=== PATIENT | female | born 1940 | race Caucasian/White ===

== ENCOUNTER 2016-10-07 13:08 | Emergency (ER) | payer MEDICARE, OTHER ==
[~2016-10-07] VITALS: Ht 162.6 cm; Wt 116.2 kg
[~2016-10-07 13:08] MED LIST: CYCL-97 PO; DIOVAN HCT; FISH1CAP15 PO; FRS325T; FRS325T PO; HYDR1TAB75 PO; MEDR2.5T6; MELO-198 PO; MTF500T; MTF500T PO; NF-ESOM40C PO; NFAMINITAB PO; OMEG1CAP51; OMEP40CA36 PO; OMG1KC PO; SMV10T; SMV20T PO; TELM1TAB3 PO; TELM40T; TRAM50TA2 PO; ULTRACET; [UNRECOGNIZED DRUG - MIXTURE]; [UNRECOGNIZED DRUG - OTHER]
--- OUTSIDE RECORDS SUMMARY | 2016-10-07 13:16 | XMS REPORT | Continuity of Care Document ---
Author Author [facility] Organization [facility] Address Unknown Phone Unavailable Allergies Active Description Code Type Severity Reaction Onset Reported/Identified Relationship to Patient Clinical Status Yes codeine [id number] Drug Allergy Unknown N/A 12/21/2006 Yes Penicillins [id number] Drug Allergy Unknown N/A 12/21/2006 Medications Problems Date Dx Coded Attending Type Code Diagnosis Diagnosed By 04/01/2010 Ot 287.5 04/01/2010 Ot 577.2 04/01/2010 Ot 789.09 04/17/2010 Ot 530.81 04/17/2010 Ot 535.40 04/17/2010 Ot V12.72 04/17/2010 Ot V67.09 03/19/2011 Ot 883.0 OPEN WOUND OF FINGER 03/19/2011 Ot E000.8 OTHER EXTERNAL CAUSE STATUS 03/19/2011 Ot E849.0 ACCIDENT IN HOME 03/19/2011 Ot E920.8 ACC-CUTTING INSTRUM NEC 01/06/2012 Ot 250.00 DIAB BHAVIK WO COMPL, TYPE II OR UNSPEC TY 01/06/2012 Ot 272.4 HYPERLIPIDEMIA NEC/NOS 01/06/2012 Ot 285.9 ANEMIA NOS 01/06/2012 Ot 287.5 THROMBOCYTOPENIA NOS 01/06/2012 Ot 716.90 ARTHROPATHY NOS-UNSPEC 01/06/2012 Ot 724.5 BACKACHE NOS 01/06/2012 Ot 729.81 SWELLING OF LIMB 01/06/2012 Ot 785.2 CARDIAC MURMURS NEC 01/06/2012 Ot 786.09 RESPIRATORY ABNORM NEC 01/06/2012 Ot V58.69 OTH MED,LT,CURRENT USE 01/09/2012 Ot 729.81 SWELLING OF LIMB 01/09/2012 Ot 782.3 EDEMA 05/06/2013 IOANA TARIQ DO Ot 721.0 CERVICAL SPONDYLOSIS 05/06/2013 IOANA TARIQ DO Ot V57.1 PHYSICAL THERAPY NEC 06/22/2013 IOANA TARIQ DO Ot 715.91 OSTEOARTHROS NOS-SHLDER 06/22/2013 IOANA TARIQ DO Ot 721.0 CERVICAL SPONDYLOSIS 06/22/2013 IOANA TARIQ DO Ot V57.1 PHYSICAL THERAPY NEC 08/13/2013 PROSPER FOWLER, AMADOR Rosario Ot 786.59 CHEST PAIN NEC 08/18/2013 IOANA TARIQ DO Ot 721.0 CERVICAL SPONDYLOSIS 08/18/2013 IOANA TARIQ DO Ot V57.1 PHYSICAL THERAPY NEC 07/26/2014 NINIJORGE L KATE ADEN Fani Ot V76.12 09/19/2014 BAIHOSEA, REBEL L DURAL MECHANIC Ot 250.00 09/19/2014 BAIMA, REBEL L DURAL MECHANIC Ot 272.4 09/19/2014 BAIMA, REBEL L DURAL MECHANIC Ot 401.9 02/27/2015 BAIMA, REBEL L DURAL MECHANIC Ot 250.00 02/27/2015 BAIMA, REBEL L DURAL MECHANIC Ot 272.4 02/27/2015 BAIMA, REBEL L DURAL MECHANIC Ot 401.9 02/27/2015 Ot 250.00 02/27/2015 BAIHOSEA, REBEL L DURAL MECHANIC Ot 272.4 02/27/2015 ADEN LEE DO Ot 250.00 02/27/2015 ADEN LEE DO Ot 401.9 02/27/2015 ADEN LEE DO Ot 782.3 02/27/2015 BRUCE FORTE MD Ot 873.0 OPEN WOUND OF SCALP 02/27/2015 BRUCE FORTE MD Ot 924.11 CONTUSION OF KNEE 02/27/2015 BRUCE FORTE MD Ot 959.01 HEAD INJURY, NOS 02/27/2015 BRUCE FORTE MD Ot E000.8 OTHER EXTERNAL CAUSE STATUS 02/27/2015 BRUCE FORTE MD Ot E849.6 ACCIDENT IN PUBLIC BLDG 02/27/2015 BRUCE FORTE MD Ot E888.1 FALL STRIKING OBJECT NEC 02/27/2015 BRUCE FORTE MD Ot V06.1 [id number], COMBINED [ 03/06/2015 AJITH FOWLER, LATASHA Hummel Ot V58.32 ENCOUNTER FOR REMOVAL OF SUTURES 03/15/2015 ADEN LEE DO Ot 250.00 03/15/2015 ADEN LEE DO A Ot 401.9 03/15/2015 NINIJORGE L ADEN KATE Ot 782.3 07/02/2015 NINIJORGE L ADEN Mohr Ot Z12.31 07/04/2015 Ot 789.01 07/04/2015 Ot 789.01 07/04/2015 Ot 041.86 07/04/2015 Ot 789.00 07/04/2015 Ot V76.12 07/04/2015 Ot 577.2 07/04/2015 Ot 250.00 07/04/2015 Ot 285.9 07/04/2015 Ot V76.12 07/04/2015 Ot 511.9 07/04/2015 Ot 807.01 07/04/2015 Ot E000.8 07/04/2015 Ot E849.0 07/04/2015 Ot E888.9 07/04/2015 Ot 287.5 07/04/2015 Ot 272.4 07/04/2015 Ot 401.9 07/04/2015 Ot V72.63 07/04/2015 Ot V72.81 07/04/2015 Ot V72.83 07/04/2015 Ot V74.8 07/04/2015 Ot 250.00 07/04/2015 Ot 272.4 07/04/2015 Ot 401.9 07/04/2015 Ot 786.09 07/04/2015 Ot 250.00 07/04/2015 Ot 272.4 07/04/2015 Ot 401.9 07/04/2015 Ot 786.09 07/04/2015 Ot V76.12 07/04/2015 Ot 272.4 07/04/2015 Ot V58.69 07/04/2015 Ot 789.01 07/04/2015 Ot 575.8 07/04/2015 Ot 789.01 07/04/2015 REBEL IVY DURAL MECHANIC Ot 272.4 07/04/2015 RBEEL IVY DURAL MECHANIC Ot 401.9 07/04/2015 REBEL IVY DURAL MECHANIC Ot V58.69 07/04/2015 JESUS ADEN Ot 786.50 07/04/2015 ADEN LEE DO Ot V76.12 07/04/2015 ADEN LEE DO Ot 250.00 07/04/2015 ADEN LEE DO Ot 272.4 07/04/2015 IOANA TARIQ DO F Ot 721.0 07/04/2015 BAIMA, REBEL L DURAL MECHANIC Ot 397.0 07/04/2015 BAIMA, REBEL L DURAL MECHANIC Ot 416.8 07/04/2015 BAIMA, REBEL L DURAL MECHANIC Ot 424.0 07/04/2015 BAIMA, REBEL L DURAL MECHANIC Ot 272.4 07/04/2015 BAIMA, REBEL L DURAL MECHANIC Ot V58.69 07/04/2015 GELLENDER DO, ADEN Mohr Ot 786.50 07/04/2015 GELLENDER DO, ADEN Mohr Ot V15.88 07/04/2015 BAIMA, REBEL L DURAL MECHANIC Ot 272.4 07/04/2015 GELLENDER DO, ADEN Mohr Ot 250.00 07/04/2015 GELLENDER DO, ADEN Mohr Ot 401.9 07/04/2015 GELLENDER DO, ADEN Mohr Ot V76.12 07/04/2015 BAIMA, REBEL L DURAL MECHANIC Ot 250.00 07/04/2015 BAIMA, REBEL L DURAL MECHANIC Ot 272.4 07/04/2015 BAIMA, REBEL L DURAL MECHANIC Ot 401.9 07/04/2015 Ot 250.00 07/04/2015 BAIMA, REBEL L DURAL MECHANIC Ot 272.4 07/04/2015 GELLENDER DO, ADEN Mohr Ot 250.00 07/04/2015 GELLENDER DO, ADEN Mohr Ot 401.9 07/04/2015 GELLENDER DO, ADEN Mohr Ot 782.3 07/04/2015 GELLENDER DO, ADEN Mohr Ot Z12.31 07/18/2015 GELLENDER DO, ADEN Mohr Ot Z12.31 08/01/2015 GELLENDER DO, ADEN Mohr Ot E11.9 08/01/2015 GELLENDER DO, ADEN Mohr Ot I10 12/04/2015 Ot E11.9 12/04/2015 Ot E78.5 12/25/2015 Ot E11.9 TYPE 2 DIABETES MELLITUS WITHOUT COMPLIC 12/25/2015 Ot E78.5 HYPERLIPIDEMIA, UNSPECIFIED 04/25/2016 CHANDNI DO, IOANA Mai Ot M25.512 PAIN IN LEFT SHOULDER 05/07/2016 GELLENDER DO, ADEN Mohr Ot E11.9 TYPE 2 DIABETES MELLITUS WITHOUT COMPLIC 05/07/2016 GELLENDER DO, ADEN Mohr Ot E78.5 HYPERLIPIDEMIA, UNSPECIFIED 05/19/2016 CHANDNI , IOANA Mai Ot M25.512 PAIN IN LEFT SHOULDER 05/22/2016 JESUS KATE, ADEN Mohr Ot D69.6 THROMBOCYTOPENIA, UNSPECIFIED 05/22/2016 JESUS KATE, ADEN Mohr Ot D72.819 DECREASED WHITE BLOOD CELL COUNT, UNSPEC 05/29/2016 ADEN LEE DO Ot E11.9 TYPE 2 DIABETES MELLITUS WITHOUT COMPLIC 05/29/2016 JESUS KATE, ADEN Mohr Ot E78.5 HYPERLIPIDEMIA, UNSPECIFIED 05/30/2016 CHANDNI , IOANA Mai Ot M25.512 PAIN IN LEFT SHOULDER 06/11/2016 JESUS KATE, ADEN Mohr Ot D69.6 THROMBOCYTOPENIA, UNSPECIFIED 06/11/2016 JESUS KATE, ADEN Mohr Ot D72.819 DECREASED WHITE BLOOD CELL COUNT, UNSPEC 06/12/2016 CHANDNI KATE, IOANA Mai Ot M25.512 PAIN IN LEFT SHOULDER 06/12/2016 CHANDNI KATE, IOANA Mai Ot Z98.890 OTHER SPECIFIED POSTPROCEDURAL STATES 06/30/2016 ADEN LEE DO Ot Z12.31 ENCNTR SCREEN MAMMOGRAM FOR MALIGNANT NE 07/04/2016 Ot V76.12 OTH SCREEN MAMMO-MALIGN NEOPLASM OF VAN 07/04/2016 Ot 511.9 PLEURAL EFFUSION NOS 07/04/2016 Ot 807.01 FRACTURE ONE RIB-CLOSED 07/04/2016 Ot E000.8 OTHER EXTERNAL CAUSE STATUS 07/04/2016 Ot E849.0 ACCIDENT IN HOME 07/04/2016 Ot E888.9 FALL NOS 07/04/2016 Ot 287.5 THROMBOCYTOPENIA NOS 07/04/2016 Ot 272.4 HYPERLIPIDEMIA NEC/NOS 07/04/2016 Ot 401.9 HYPERTENSION NOS 07/04/2016 Ot V72.63 PRE-PROCEDURAL LABORATORY EXAMINATION 07/04/2016 Ot V72.81 [id number] CARDIOVASCULAR 07/04/2016 Ot V72.83 EXAM PRE-OPERATIVE NEC 07/04/2016 Ot V74.8 SCREEN-BACTERIAL DIS NEC 07/04/2016 Ot 250.00 DIAB BHAVIK WO COMPL, TYPE II OR UNSPEC TY 07/04/2016 Ot 272.4 HYPERLIPIDEMIA NEC/NOS 07/04/2016 Ot 401.9 HYPERTENSION NOS 07/04/2016 Ot 786.09 RESPIRATORY ABNORM NEC 07/04/2016 Ot 250.00 DIAB BHAVIK WO COMPL, TYPE II OR UNSPEC TY 07/04/2016 Ot 272.4 HYPERLIPIDEMIA NEC/NOS 07/04/2016 Ot 401.9 HYPERTENSION NOS 07/04/2016 Ot 786.09 RESPIRATORY ABNORM NEC 07/04/2016 Ot V76.12 OTH SCREEN MAMMO-MALIGN NEOPLASM OF VAN 07/04/2016 Ot 272.4 HYPERLIPIDEMIA NEC/NOS 07/04/2016 Ot V58.69 OTH MED,LT,CURRENT USE 07/04/2016 Ot 789.01 ABDOMINAL PAIN, RIGHT UPPER QUADRANT 07/04/2016 Ot 575.8 DIS OF GALLBLADDER NEC 07/04/2016 Ot 789.01 ABDOMINAL PAIN, RIGHT UPPER QUADRANT 07/04/2016 BAIMA REBEL L DURAL MECHANIC Ot 272.4 HYPERLIPIDEMIA NEC/NOS 07/04/2016 BAIMA, REBEL L DURAL MECHANIC Ot 401.9 HYPERTENSION NOS 07/04/2016 BAIHOSEA REBEL L DURAL MECHANIC Ot V58.69 OTH MED,LT,CURRENT USE 07/04/2016 ADEN LEE DO Ot 786.50 CHEST PAIN NOS 07/04/2016 ADEN LEE DO Ot V76.12 OTH SCREEN MAMMO-MALIGN NEOPLASM OF VAN 07/04/2016 JESUS KATEADEN Ot 250.00 DIAB BHAVIK WO COMPL, TYPE II OR UNSPEC TY 07/04/2016 NINIADEN COATS DO Ot 272.4 HYPERLIPIDEMIA NEC/NOS 07/04/2016 IOANA TARIQ DO Ot 721.0 CERVICAL SPONDYLOSIS 07/04/2016 BAIHOSEA REBEL L DURAL MECHANIC Ot 397.0 TRICUSPID VALVE DISEASE 07/04/2016 BIJU REBEL L DURAL MECHANIC Ot 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 NEC 07/04/2016 BIJU REBEL L DURAL MECHANIC Ot 424.0 MITRAL VALVE DISORDER 07/04/2016 BAIMA REBEL L DURAL MECHANIC Ot 272.4 HYPERLIPIDEMIA NEC/NOS 07/04/2016 BIJU REBEL L DURAL MECHANIC Ot V58.69 OTH MED,LT,CURRENT USE 07/04/2016 JESUS KATEADEN Ot 786.50 CHEST PAIN NOS 07/04/2016 NINIADEN COATS DO Ot V15.88 HISTORY OF FALL 07/04/2016 BIJU REBEL L DURAL MECHANIC Ot 272.4 HYPERLIPIDEMIA NEC/NOS 07/04/2016 NINIADEN COATS DO Ot 250.00 DIAB BHAVIK WO COMPL, TYPE II OR UNSPEC TY 07/04/2016 GELLENDER DO, ADEN Mohr Ot 401.9 HYPERTENSION NOS 07/04/2016 GELLENDER DO, ADEN Mohr Ot V76.12 OTH SCREEN MAMMO-MALIGN NEOPLASM OF VAN 07/04/2016 BAIMA REBEL L DURAL MECHANIC Ot 250.00 DIAB BHAVIK WO COMPL, TYPE II OR UNSPEC TY 07/04/2016 BAIMA, REBEL L DURAL MECHANIC Ot 272.4 HYPERLIPIDEMIA NEC/NOS 07/04/2016 BAIMA, REBEL L DURAL MECHANIC Ot 401.9 HYPERTENSION NOS 07/04/2016 Ot 250.00 DIAB BHAVIK WO COMPL, TYPE II OR UNSPEC TY 07/04/2016 BAIHOSEA, REBEL L DURAL MECHANIC Ot 272.4 HYPERLIPIDEMIA NEC/NOS 07/04/2016 GELLENDER DO, ADEN Mohr Ot 250.00 DIAB BHAVIK WO COMPL, TYPE II OR UNSPEC TY 07/04/2016 GELLENDER DO, ADEN Mohr Ot 401.9 HYPERTENSION NOS 07/04/2016 GELLENDER DO, ADEN Mohr Ot 782.3 EDEMA 07/04/2016 GELLENDER DOADEN Ot Z12.31 ENCNTR SCREEN MAMMOGRAM FOR MALIGNANT NE 07/04/2016 CHANDNI KATE, IOANA Mai Ot M16.12 UNILATERAL PRIMARY OSTEOARTHRITIS, LEFT 07/04/2016 CHANDNI DO, IOANA Mai Ot M47.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, LUMBAR REGION 07/04/2016 GELLENDER DO, ADEN Mohr Ot E11.9 TYPE 2 DIABETES MELLITUS WITHOUT COMPLIC 07/04/2016 GELLENDER DOADEN Ot I10 ESSENTIAL (PRIMARY) HYPERTENSION 07/04/2016 Ot E11.9 TYPE 2 DIABETES MELLITUS WITHOUT COMPLIC 07/04/2016 Ot E78.5 HYPERLIPIDEMIA, UNSPECIFIED 07/04/2016 GELLENDER DOADEN Ot E11.9 TYPE 2 DIABETES MELLITUS WITHOUT COMPLIC 07/04/2016 GELLENDER DO, ADEN Mohr Ot E78.5 HYPERLIPIDEMIA, UNSPECIFIED 07/04/2016 GELLENDER DOADEN Ot D69.6 THROMBOCYTOPENIA, UNSPECIFIED 07/04/2016 GELLENDER DOADEN Ot D72.819 DECREASED WHITE BLOOD CELL COUNT, UNSPEC 07/04/2016 GELLENDER DOADEN Ot Z12.31 ENCNTR SCREEN MAMMOGRAM FOR MALIGNANT NE 07/10/2016 GELLENDER ADEN KATE Ot Z12.31 ENCNTR SCREEN MAMMOGRAM FOR MALIGNANT NE 08/29/2016 JESUS KATE, ADEN Mohr Ot E11.9 TYPE 2 DIABETES MELLITUS WITHOUT COMPLIC 08/29/2016 JESUS KATE, ADEN Mohr Ot E78.5 HYPERLIPIDEMIA, UNSPECIFIED 08/29/2016 JESUS KATE, ADEN Mohr Ot I10 ESSENTIAL (PRIMARY) HYPERTENSION 09/18/2016 JESUS KATE, ADEN Mohr Ot E11.9 TYPE 2 DIABETES MELLITUS WITHOUT COMPLIC 09/18/2016 JESUS KATE, ADEN Mohr Ot E78.5 HYPERLIPIDEMIA, UNSPECIFIED 09/18/2016 JESUS KATE, ADEN Mohr Ot I10 ESSENTIAL (PRIMARY) HYPERTENSION Procedures Results Test Result Range Automated blood complete blood count (hemogram) panel - 05/06/16 08:36 Blood leukocytes automated count (number/volume) 3.7 10*3/ uL 4.3-11.0 Blood erythrocytes automated count (number/volume) 4.30 10*6 /uL 4.35-5.85 Venous blood hemoglobin measurement (mass/volume) 12.2 g/dL 11.5-16.0 Blood hematocrit (volume fraction) 37 % 35-52 Automated erythrocyte mean corpuscular volume 86 [foz_us] 80-99 Automated erythrocyte mean corpuscular hemoglobin (mass per erythrocyte) 28 pg 25-34 Automated erythrocyte mean corpuscular hemoglobin concentration measurement ( mass/volume) 33 g/dL 32-36 Automated erythrocyte distribution width ratio 15.0 % 10.0-14.5 Automated blood platelet count (count/volume) 114 10*3/uL 130-400 Automated blood platelet mean volume measurement 10.8 [foz_ us] 7.4-10.4 Comprehensive metabolic panel - 05/06/16 08:36 Serum or plasma sodium measurement (moles/volume) 142 mmol/ L 135-145 Serum or plasma potassium measurement (moles/volume) 3.9 mmol/L 3.6-5.0 Serum or plasma chloride measurement (moles/volume) 111 mmol /L 98-107 Carbon dioxide 19 mmol/L 21-32 Serum or plasma anion gap determination (moles/volume) 12 mmol/L 5-14 Serum or plasma urea nitrogen measurement (mass/volume) 12 mg/dL 7-18 Serum or plasma creatinine measurement (mass/volume) 0.63 mg /dL 0.60-1.30 Serum or plasma urea nitrogen/creatinine mass ratio 19 NRG Serum or plasma creatinine measurement with calculation of estimated glomerular filtration rate > NRG Serum or plasma glucose measurement (mass/volume) 125 mg/dL 70-105 Serum or plasma calcium measurement (mass/volume) 9.1 mg/dL 8.5-10.1 Serum or plasma total bilirubin measurement (mass/volume) 1.0 mg/dL 0.1-1.0 Serum or plasma alkaline phosphatase measurement (enzymatic activity/volume) 72 U/L 40-136 Serum or plasma aspartate aminotransferase measurement (enzymatic activity/ volume) 20 U/L 5-34 Serum or plasma alanine aminotransferase measurement (enzymatic activity/volume ) 14 U/L 0-55 Serum or plasma protein measurement (mass/volume) 6.4 g/dL 6.4-8.2 Serum or plasma albumin measurement (mass/volume) 3.3 g/dL 3.2-4.5 Lipid 1996 panel - 05/06/16 08:36 Serum or plasma triglyceride measurement (mass/volume) 91 mg /dL <150 Serum or plasma cholesterol measurement (mass/volume) 150 mg /dL < 200 Serum or plasma cholesterol in HDL measurement (mass/volume) 44 mg/dL 40-60 Cholesterol in LDL [mass/volume] in serum or plasma by direct assay 92 mg/dL 1-129 Serum or plasma cholesterol in VLDL measurement (mass/volume) 18 mg/dL 5-40 Hemoglobin A1c - 05/06/16 08:36 Hemoglobin A1c 5.6 % 4.5-6.2 Automated blood complete blood count (hemogram) panel - 05/21/16 08:14 Blood leukocytes automated count (number/volume) 4.1 10*3/ uL 4.3-11.0 Blood erythrocytes automated count (number/volume) 4.24 10*6 /uL 4.35-5.85 Venous blood hemoglobin measurement (mass/volume) 11.9 g/dL 11.5-16.0 Blood hematocrit (volume fraction) 37 % 35-52 Automated erythrocyte mean corpuscular volume 87 [foz_us] 80-99 Automated erythrocyte mean corpuscular hemoglobin (mass per erythrocyte) 28 pg 25-34 Automated erythrocyte mean corpuscular hemoglobin concentration measurement ( mass/volume) 32 g/dL 32-36 Automated erythrocyte distribution width ratio 15.1 % 10.0-14.5 Automated blood platelet count (count/volume) 125 10*3/uL 130-400 Automated blood platelet mean volume measurement 11.0 [foz_ us] 7.4-10.4 Automated blood complete blood count (hemogram) panel - 08/28/16 08:40 Blood leukocytes automated count (number/volume) 4.6 10*3/ uL 4.3-11.0 Blood erythrocytes automated count (number/volume) 4.17 10*6 /uL 4.35-5.85 Venous blood hemoglobin measurement (mass/volume) 12.6 g/dL 11.5-16.0 Blood hematocrit (volume fraction) 38 % 35-52 Automated erythrocyte mean corpuscular volume 91 [foz_us] 80-99 Automated erythrocyte mean corpuscular hemoglobin (mass per erythrocyte) 30 pg 25-34 Automated erythrocyte mean corpuscular hemoglobin concentration measurement ( mass/volume) 33 g/dL 32-36 Automated erythrocyte distribution width ratio 14.5 % 10.0-14.5 Automated blood platelet count (count/volume) 136 10*3/uL 130-400 Automated blood platelet mean volume measurement 10.6 [foz_ us] 7.4-10.4 Comprehensive metabolic panel - 08/28/16 08:40 Serum or plasma sodium measurement (moles/volume) 142 mmol/ L 135-145 Serum or plasma potassium measurement (moles/volume) 3.6 mmol/L 3.6-5.0 Serum or plasma chloride measurement (moles/volume) 109 mmol /L 98-107 Carbon dioxide 23 mmol/L 21-32 Serum or plasma anion gap determination (moles/volume) 10 mmol/L 5-14 Serum or plasma urea nitrogen measurement (mass/volume) 18 mg/dL 7-18 Serum or plasma creatinine measurement (mass/volume) 0.68 mg /dL 0.60-1.30 Serum or plasma urea nitrogen/creatinine mass ratio 26 NRG Serum or plasma creatinine measurement with calculation of estimated glomerular filtration rate > NRG Serum or plasma glucose measurement (mass/volume) 127 mg/dL 70-105 Serum or plasma calcium measurement (mass/volume) 9.0 mg/dL 8.5-10.1 Serum or plasma total bilirubin measurement (mass/volume) 0.8 mg/dL 0.1-1.0 Serum or plasma alkaline phosphatase measurement (enzymatic activity/volume) 77 U/L 40-136 Serum or plasma aspartate aminotransferase measurement (enzymatic activity/ volume) 22 U/L 5-34 Serum or plasma alanine aminotransferase measurement (enzymatic activity/volume ) 17 U/L 0-55 Serum or plasma protein measurement (mass/volume) 6.6 g/dL 6.4-8.2 Serum or plasma albumin measurement (mass/volume) 3.4 g/dL 3.2-4.5 Lipid 1996 panel - 08/28/16 08:40 Serum or plasma triglyceride measurement (mass/volume) 93 mg /dL <150 Serum or plasma cholesterol measurement (mass/volume) 175 mg /dL < 200 Serum or plasma cholesterol in HDL measurement (mass/volume) 50 mg/dL 40-60 Cholesterol in LDL [mass/volume] in serum or plasma by direct assay 108 mg/dL 1-129 Serum or plasma cholesterol in VLDL measurement (mass/volume) 19 mg/dL 5-40 Hemoglobin A1c - 08/28/16 08:40 Hemoglobin A1c 6.3 % 4.5-6.2 Encounters ACCT No. Visit Date/Time Discharge Status Pt. Type Provider Facility Loc./Unit Complaint [id number] 06/12/2016 08:15:00 2015 11:53:00 DIS Outpatient IOANA TARIQ DO [facility] REHAB S/P REVERSE LEFT TSA [id number] 05/29/2016 10:20:00 2015 17:00:00 DIS Outpatient IOANA TARIQ DO [facility] REHAB S/P REVERSE LEFT TSA [id number] 07/09/2015 08:33:00 2014 23:59:59 CLS Outpatient ADEN LEE DO [facility] LAB DIABTS, [id number] 07/04/2015 09:09:00 2014 23:59:59 CLS Outpatient IOANA TARIQ DO [facility] RAD LUMBAR SPONDYLOSIS,DJD LEFT HIP [id number] 06/27/2015 08:43:00 2014 23:59:59 CLS Outpatient ADEN LEE DO [facility] RAD SCREENING [id number] 03/06/2015 07:08:00 2014 07:20:00 DIS Emergency AJITH FOWLER, LATASHA Hummel [facility] ER STAPLE REMOVAL [id number] 02/27/2015 10:38:00 2014 12:13:00 DIS Emergency REANNA FOWLER, BRUCE Rao [facility] ER FALL;L LEG PAIN [id number] 02/19/2015 08:28:00 2014 23:59:59 CLS Outpatient ADEN LEE DO [facility] LAB DIABETES,PERIPHERAL ADEMIA [id number] 02/19/2015 08:20:00 2014 23:59:59 CLS Outpatient BAIMA REBEL L DURAL MECHANIC [facility] LAB HYPERLIPIDEMIA [id number] 08/22/2014 10:30:00 2013 23:59:59 CLS Outpatient BAIMA REBEL L DURAL MECHANIC [facility] LAB HLP,DM,HTN [id number] 06/26/2014 10:05:00 2013 23:59:59 CLS Outpatient ADEN LEE DO [facility] RAD SCREENING [id number] 04/05/2014 09:08:00 2013 23:59:59 CLS Outpatient ADEN LEE DO [facility] LAB DIABETES [id number] 02/21/2014 08:25:00 2013 23:59:59 CLS Outpatient REBEL IVY L DURAL MECHANIC [facility] LAB OTHER UNSPECIFIED HYPERLIPIDEMIA [id number] 01/27/2014 10:30:00 2013 23:59:59 CLS Outpatient JESUS KATE ADEN Fani [facility] RAD FELL LAST THURSDAY,PAIN IN R RIBS [id number] 08/18/2013 11:05:00 2012 23:59:59 CLS Outpatient BAIHOSEA REBEL L DURAL MECHANIC [facility] LAB HLP [id number] 08/12/2013 12:58:00 2012 14:04:00 DIS Outpatient IOANA TARIQ DO [facility] REHAB CERVICAL SPONDYLOSIS [id number] 08/16/2013 12:34:00 2012 23:59:59 CLS Outpatient REBEL IVY [facility] CARD HTN [id number] 08/13/2013 18:38:00 2012 23:46:00 DIS Emergency PROSPER FOWLER, AMADOR Rosario [facility] ER CP [id number] 07/25/2013 09:12:00 2012 23:59:59 CLS Outpatient CHANDNI KATE IOANA Sergei [facility] RAD CERVICAL SPONDYLOSIS [id number] 06/29/2013 07:43:00 2012 23:59:59 CLS Outpatient ADEN LEE DO [facility] LAB DM,HLP [id number] 06/24/2013 08:48:00 2012 23:59:59 CLS Outpatient ADEN LEE DO [facility] RAD SCREENING [id number] 05/31/2013 08:35:00 2012 14:00:00 DIS Outpatient CHANDNI KATE IOANA Sergei [facility] REHAB DJD R SHOULDER CERVICAL SPONDYLOSIS [id number] 04/27/2013 10:00:00 2012 10:28:00 DIS Outpatient CHANDNI KATE IOANA Sergei [facility] REHAB CERVICAL SPONDYLOSIS, RT SIDED RADICULOPATHY [id number] 02/28/2013 11:21:00 2012 23:59:59 CLS Outpatient ADEN LEE DO [facility] RAD RIGHT RIB PAIN [id number] 02/01/2013 07:52:00 2012 23:59:59 CLS Outpatient REBEL IVY [facility] LAB HTN,HLP,STATIN [place] [id number] 08/28/2016 08:29:00 ACT Outpatient ADEN LEE DO [facility] LAB DIABETIS,HYPERTENSION [id number] 06/30/2016 09:17:00 ACT Outpatient ADEN LEE DO [facility] RAD SCREENING [id number] 05/21/2016 08:02:00 ACT Outpatient ADEN LEE DO [facility] LAB LEUKOPENIA,THROMBOCYTOPENIA [id number] 05/06/2016 08:17:00 ACT Outpatient ADEN LEE DO [facility] LAB DIABETES, HYPERLIPIDEMIA [id number] 12/03/2015 08:11:00 Document Registration [id number] 07/04/2015 09:08:00 Document Registration [id number] 10/25/2014 08:56:00 Document Registration [id number] 10/06/2012 09:30:00 Document Registration [id number] 09/30/2012 08:04:00 Document Registration [id number] 08/12/2012 08:40:00 Document Registration [id number] 06/21/2012 10:00:00 Document Registration [id number] 01/09/2012 14:12:00 Document Registration [id number] 01/06/2012 11:23:00 Document Registration [id number] 12/25/2011 11:32:00 Document Registration [id number] 12/04/2011 08:05:00 Document Registration [id number] 11/26/2011 07:55:00 Document Registration [id number] 06/19/2011 07:48:00 Document Registration [id number] 06/05/2011 10:04:00 Document Registration [id number] 05/06/2011 07:00:00 Document Registration [id number] 03/19/2011 16:56:00 Document Registration [id number] 09/04/2010 07:56:00 Document Registration [id number] 04/22/2010 08:15:00 Document Registration [id number] 04/17/2010 08:06:00 Document Registration [id number] 04/02/2010 12:05:00 Document Registration [id number] 04/01/2010 13:49:00 Document Registration [id number] 03/27/2010 09:38:00 Document Registration [id number] 03/08/2010 11:02:00 Document Registration [id number] 02/28/2010 07:44:00 Document Registration
[2016-10-07] MEDS ORDERED: NAPR220C11 PO (13:18)
--- NOTE | 2016-10-07 13:50 | Diagnostic Imaging Report ---
EXAMINATION: Three views of the left knee. INDICATION: Fall. COMPARISON: 02/27/2015. 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 The hardware is in good position without displacement or evidence of loosening. No fracture is identified. Again seen is deformity in the patella and heterotopic ossification superior to the patella. This could be related to an old fracture or sequela of other injury. There is increased suprapatellar density, probably related to a small effusion. IMPRESSION: Total left knee replacement. Deformity about the patella and ossification superior to it are probably sequela of old injury. Dictated by: Dictated on workstation # [id number]
--- NOTE | 2016-10-07 14:04 | ED Fall/Injury ---
General Chief Complaint: Trauma-Non Activation Stated Complaint: KNEE PAIN Nursing Triage Note: PT REPORTS SHE FEL EARLIER TODAY WHIE AT HOME. PT BELIEVES SHE CAUGHT HER CANE ON A SIDE TABLE WHILE WALKING. PT REPORTS LANDING ON HER L SIDE. PT REPROTS "LIGHTLY" HITTING L SIDE OF HEAD BUT [place] OR LOC. PT REPORTS L KNEE PAIN THAT IS CHRONIC BUT WORSE AFTER FALL. PT DENIES ANY OTHER INJURY. Source: patient Exam Limitations: no limitations History of Present Illness Time seen by provider: 13:10 Initial Comments This 76-year-old woman presents to the emergency room via EMS after having a fall in her home. She believes her cane got "hung up" causing the fall. She denies any prodrome. She fell onto her left side injuring her left the. She lightly struck her head on the floor but denies any significant injury. There was no loss of consciousness. She denies any aspirin or blood medications. Her only complaint at this time is knee pain. She has had a prosthetic knee replacement previously. Location Injury Occurred: HOME RESIDENCE Allergies and Home Medications Allergies Coded Allergies: Penicillins (Unverified Allergy, Unknown, 12/21/06) codeine (Unverified Allergy, Unknown, 12/21/06) aspirin (Verified Adverse Reaction, Unknown, NAUSEA, 10/07/16) Home Medications (Reported) Fish Oil/Dha/Epa 1 Each Capsule 1,200 EACH PO BID (Reported) Hctz/Telmisartan 1 Each Tablet 80 MG PO DAILY (Reported) Metformin Hcl 500 Mg Tablet 500 MG PO BID (Reported) Naproxen Sodium 220 Mg Capsule 220 MG PO DAILY (Reported) Omeprazole 40 Mg Capsule. #30 40 MG PO DAILY Prescribed by: AMADOR ALVA on 08/13/13 2343 Simvastatin 20 Mg Tab 20 MG PO HS (Reported) Vitamin C/Vitamin E 1 Tab Tab 1 TAB PO DAILY (Reported) Constitutional: no symptoms reported Eyes: No Symptoms Reported Ears, Nose, Mouth, Throat: no symptoms reported Respiratory: no symptoms reported Cardiovascular: no symptoms reported Gastrointestinal: no symptoms reported Genitourinary: no symptoms reported Musculoskeletal: see HPI Skin: no symptoms reported Psychiatric/Neurological: No Symptoms Reported Past Acddvff-Ldgczl-Jngmvu Hx Patient Social History Alcohol Use: Denies Use Recreational Drug Use: No Smoking Status: Never a Smoker Recent Foreign Travel: No Contact w/Someone Who Travel: No Recent Infectious Disease Expo: No Recent Hopitalizations: Yes Immunizations Up To Date Tetanus Booster (TDap): More than 5yrs Date of Pneumonia Vaccine: Aug 07, 2016 Date of Influenza Vaccine: Jun 09, 2016 Seasonal Allergies Seasonal Allergies: No Surgeries HX Surgeries: Yes (BILAT TKR, TIEN FILTER, LEFT SHOULDER SURGERY, BONE SPUR LEFT HEEL) Surgeries: Joint Replacement, Orthopedic Respiratory Hx Respiratory Disorders: No Cardiovascular Hx Cardiac Disorders: Yes Cardiac Disorders: Deep Vein Thrombosis, High Cholesterol, Hypertension Neurological Hx Neurological Disorders: No Reproductive System Hx Reproductive Disorders: No Genitourinary Hx Genitourinary Disorders: No Gastrointestinal Hx Gastrointestinal Disorders: Yes Gastrointestinal Disorders: Gastroesophageal Reflux Musculoskeletal Hx Musculoskeletal Disorders: Yes (BONE SPUR REMOVAL LEFT FOOT) Musculoskeletal Disorders: Arthritis Endocrine Hx Endocrine Disorders: Yes (DM TYPE II) Endocrine Disorders: Diabetes, Non-Insulin dep HEENT HX ENT Disorders: No Cancer Hx Cancer: No Psychosocial Hx Psychiatric Problems: No Integumentary HX Skin/Integumentary Disorder: No Blood Transfusions Hx Blood Disorders: Yes (BLOOD CLOT LEG TO LUNG 2000) Family Medical History Significant Family History: No Pertinent Family Hx Physical Exam Vital Signs Vital Sign - Last 12Hours 10/07/16 13:18 Temp 98.0 Pulse 80 Resp 16 B/P 203/107 Pulse Ox 98 Capillary Refill : Less Than 3 Seconds General Appearance: WD/WN no apparent distress HEENT: normal ENT inspection Neck: normal inspection Cardiovascular: regular rate, rhythm no edema no murmur Respiratory: lungs clear normal breath sounds no respiratory distress no accessory muscle use Gastrointestinal: normal bowel sounds non tender soft Back: normal inspection Extremities: swelling other (left knee generally tender to palpation, lateral knee worse.) Neurologic/Psychiatric: lpc II-XII nml as tested no motor/sensory deficits alert normal mood/affect oriented x 3 Skin: normal color warm/dry Rashad Coma Score Best Eye Response: (4) Open Spontaneously Best Verbal Response: (5) Oriented Best Motor Response: (6) Obeys Commands Stevenson Total: 15 Progress/Results/Core Measures Results/Orders Lab Results Laboratory Tests Test 10/07/16 13:53 Range/Units Urine Bacteria NEGATIVE /HPF Urine Bilirubin NEGATIVE NEGATIVE Urine Casts NONE /LPF Urine Clarity CLEAR Urine Color YELLOW Urine Crystals NONE /LPF Urine Culture Indicated NO Urine Glucose (UA) NEGATIVE NEGATIVE Urine Ketones NEGATIVE NEGATIVE Urine Leukocyte Esterase NEGATIVE NEGATIVE Urine Mucus NEGATIVE /LPF Urine Nitrite NEGATIVE NEGATIVE Urine Protein NEGATIVE NEGATIVE Urine RBC NONE /HPF Urine RBC (Auto) NEGATIVE NEGATIVE Urine Specific [place] 1.015 L 1.016-1.022 Urine Squamous Epithelial Cells 2-5 /HPF Urine Urobilinogen 4 H NORMAL MG/DL Urine WBC NONE /HPF Urine pH 6 5-9 My Orders Orders-AMADOR CHENG MD Ua Culture If Indicated (10/07/16 13:16) Knee, Left, 3 Views (10/07/16 13:16) Vital Signs/I&O Vital Sign - Last 12Hours 10/07/16 10/07/16 13:18 14:45 Temp 98.0 98.0 Pulse 80 85 Resp 16 16 B/P 203/107 Pulse Ox 98 99 Blood Pressure Mean: 139 Progress Note : Progress Note Patient was offered pain medication but declined. X-ray showed no evidence of acute injury. She was notably hypertensive when she arrived. No treatment was provided the blood pressure was trending down upon departure. She was encouraged to follow up with her primary care provider for a blood pressure recheck. Diagnostic Imaging Diagonstic Imaging: Xray Plain Films/CT/US/NM/MRI: knee Comments X-ray of the left knee viewed by me and report reviewed. Discussed with the radiologist. See report below: NAME: KATHARINE PEREZ [facility] REC#: [id number] PT STATUS: REG ER : 1940 PHYSICIAN: AMADOR CHENG MD ADMIT DATE: 10/07/16/ER Signed Date of Exam:10/07/16 KNEE, LEFT, 3 VIEWS EXAMINATION: Three views of the left knee. INDICATION: Fall. COMPARISON: 02/27/2015. 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 The hardware is in good position without displacement or evidence of loosening. No fracture is identified. Again seen is deformity in the patella and heterotopic ossification superior to the patella. This could be related to an old fracture or sequela of other injury. There is increased suprapatellar density, probably related to a small effusion. IMPRESSION: Total left knee replacement. Deformity about the patella and ossification superior to it are probably sequela of old injury. Dictated by: Dictated on workstation # [id number] Dict: 10/07/16 1343 Trans: 10/07/16 1355 [id number] Interpreted by: DIVINE RAMIREZ MD Electronically signed by: DIVINE RAMIREZ MD 10/07/16 1357 Departure Impression Impression: Primary Impression: Contusion of left knee Qualified Code: S80.02XA - Contusion of left knee, initial encounter Additional Impression: Fall on same level from stumbling Qualified Code: W01.0XXA - Fall on same level from slipping, tripping and stumbling without subsequent striking against object, initial encounter Disposition: HOME, SELF-CARE Condition: Improved Departure-Patient Inst. Decision time for Depature: 14:17 Referrals: ADEN LEE DO (PCP/Family) Primary Care Physician Patient Instructions: Contusion (DC) Add. Discharge Instructions: You may take [id number] pain medications including Tylenol for treatment of your knee pain. You may also ice in 20 minute intervals. Ambulate carefully with a cane or walker. Return to care if symptoms worsen or are not improving. All discharge instructions reviewed with patient and/or family. Voiced understanding. AMADOR CHENG MD Oct 07, 2016 14:04
[2016-10-07 14:07] LABS: BILIRUBIN,URINE NEGATIVE (NEGATIVE); KETONES,URINE NEGATIVE (NEGATIVE); LEUKOCYTE ESTERASE ,URINE NEGATIVE (NEGATIVE); NITRITE,URINE NEGATIVE (NEGATIVE); PH,URINE 6 (5-9); PROTEIN,URINE NEGATIVE (NEGATIVE); UROBILINOGEN,URINE 4 MG/DL (NORMAL)
[2016-10-07 14:45] VITALS: BP 192/74
== END 2016-10-07 14:45 | disposition home or self-care (01) ==
LOC: EDUNIT# 13:08 → ER 13:11
DX: S80.02XA Contusion of left knee, initial encounter (principal); I10 Essential (primary) hypertension; E11.9 Type 2 diabetes mellitus without complications; Z79.84 Long term (current) use of oral hypoglycemic drugs; Z79.899 Other long term (current) drug therapy; Z96.653 Presence of artificial knee joint, bilateral; W01.0XXA Fall on same level from slipping, tripping and stumbling without subsequent striking against object, initial encounter; Y92.009 Unspecified place in unspecified non-institutional (private) residence as the place of occurrence of the external cause; Y99.8 Other external cause status
CPT/HCPCS: 73562; 81000; 99283

== ENCOUNTER → 2016-12-23 | Outpatient (CLI) | payer MEDICARE, OTHER ==
[~2016-12-23] MED LIST changes: +NAPR220C11 PO
[2016-12-23 09:19] LABS: BASOPHILS % (AUTO) 1 % (0-10); EOSINOPHILS # (AUTO) 0.2 10^3/uL (0.0-0.3); EOSINOPHILS % (AUTO) 5 % (0-10); LYMPHOCYTES # (AUTO) 0.9 X 10^3 (1.0-4.0); LYMPHOCYTES % (AUTO) 26 % (12-44); MEAN CORPUSCULAR HEMOGLOBIN 29 PG (25-34); MEAN CORPUSCULAR HGB CONC 33 G/DL (32-36); MEAN CORPUSCULAR VOLUME 89 FL (80-99); MEAN PLATELET VOLUME 10.4 FL (7.4-10.4); MONOCYTES # (AUTO) 0.2 X 10^3 (0.0-1.0); MONOCYTES % (AUTO) 6 % (0-12); NEUTROPHILS # (AUTO) 2.1 X 10^3 (1.8-7.8); NEUTROPHILS % (AUTO) 62 % (42-75); PLATELET COUNT 112 10^3/uL (130-400); RED BLOOD COUNT 4.02 10^6/uL (4.35-5.85); RED CELL DISTRIBUTION WIDTH 14.1 % (10.0-14.5); WHITE BLOOD COUNT 3.4 10^3/uL (4.3-11.0)
[2016-12-23 09:42] LABS: ALANINE AMINOTRANSFERASE 12 U/L (0-55); ALBUMIN 3.3 G/DL (3.2-4.5); ANION GAP 9 MMOL/L (5-14); ASPARTATE AMINO TRANSFERASE 18 U/L (5-34); BILIRUBIN,TOTAL 0.9 MG/DL (0.1-1.0); BLOOD UREA NITROGEN 20 MG/DL (7-18); BUN/CREATININE RATIO 29; CARBON DIOXIDE 26 MMOL/L (21-32); CHLORIDE 109 MMOL/L (98-107); CHOLESTEROL 144 MG/DL (< 200); DIRECT LDL 83 MG/DL (1-129); GFR ESTIMATED > 60; GLUCOSE 127 MG/DL (70-105); POTASSIUM 3.7 MMOL/L (3.6-5.0); SODIUM 144 MMOL/L (135-145); TOTAL PROTEIN 6.2 G/DL (6.4-8.2); TRIGLYCERIDES 99 MG/DL (<150); VLDL CHOLESTEROL 20 MG/DL (5-40)
== END ==
LOC: LAB 08:44
PROVIDERS: ATTEND Family Medicine
DX: I10 Essential (primary) hypertension (principal); E11.9 Type 2 diabetes mellitus without complications; E05.90 Thyrotoxicosis, unspecified without thyrotoxic crisis or storm
CPT/HCPCS: 36415; 80053; 80061; 83036; 85025

== ENCOUNTER → 2017-01-19 | Outpatient (CLI) | payer MEDICARE, OTHER ==
[2017-01-19 08:36] LABS: MEAN PLATELET VOLUME 10.6 FL (7.4-10.4); RED BLOOD COUNT 4.08 10^6/uL (4.35-5.85); RED CELL DISTRIBUTION WIDTH 14.6 % (10.0-14.5); WHITE BLOOD COUNT 3.8 10^3/uL (4.3-11.0)
== END ==
LOC: LAB 08:14
PROVIDERS: ATTEND Family Medicine
DX: D69.6 Thrombocytopenia, unspecified (principal)
CPT/HCPCS: 36415; 85027

== ENCOUNTER 2017-01-22 10:30 | Outpatient (RCR) | payer MEDICARE, OTHER | END 2017-01-22 12:00 | disposition home or self-care (01) | PROVIDERS: ATTEND Orthopaedic Surgery | DX: M47.816 Spondylosis without myelopathy or radiculopathy, lumbar region (principal) ==

== ENCOUNTER 2017-07-26 09:52 | Emergency (ER) | payer MEDICARE, OTHER ==
[~2017-07-26] VITALS: Ht 177.8 cm; Wt 136.1 kg
--- NOTE | 2017-07-26 10:50 | ED Fall/Injury ---
General Chief Complaint: Trauma-Non Activation Stated Complaint: FALL Source: patient Exam Limitations: no limitations History of Present Illness Time seen by provider: 10:49 Initial Comments To ER with a fall out of her wheelchair at the group home. Initially complained of right shoulder and right knee pain but now complains of no pain. She is demented. Occurred: just prior to arrival Severity: mild Injuries/Pain Location: upper extremity, lower extremity Context: other (slipped out of her wheelchair) Loss of Consciousness: no loss of consciousness Allergies and Home Medications Allergies Coded Allergies: Penicillins (Unverified Allergy, Unknown, 12/21/06) codeine (Unverified Allergy, Unknown, 12/21/06) aspirin (Verified Adverse Reaction, Unknown, NAUSEA, 10/07/16) Home Medications Fish Oil/Dha/Epa 1 Each Capsule, 1,200 EACH PO BID, (Reported) Hctz/Telmisartan 1 Each Tablet, 80 MG PO DAILY, (Reported) Metformin Hcl 500 Mg Tablet, 500 MG PO BID, (Reported) Naproxen Sodium 220 Mg Capsule, 220 MG PO DAILY, (Reported) Omeprazole 40 Mg Capsule.dr, 40 MG PO DAILY, #30 Prescribed by: AMADOR ALVA on 08/13/13 2343 Simvastatin 20 Mg Tab, 20 MG PO HS, (Reported) Vitamin C/Vitamin E 1 Tab Tab, 1 TAB PO DAILY, (Reported) [Chydro/Apap] , (Reported) Constitutional: see HPI Eyes: No Symptoms Reported Ears, Nose, Mouth, Throat: no symptoms reported Respiratory: no symptoms reported Cardiovascular: no symptoms reported Genitourinary: no symptoms reported Musculoskeletal: see HPI Skin: no symptoms reported Psychiatric/Neurological: No Symptoms Reported Past Dvlnial-Ziefhn-Qzitkt Hx Patient Social History Recent Hopitalizations: Yes Immunizations Up To Date Tetanus Booster (TDap): More than 5yrs Date of Pneumonia Vaccine: Aug 07, 2016 Date of Influenza Vaccine: Jun 09, 2016 Seasonal Allergies Seasonal Allergies: No Surgeries Surgeries: Joint Replacement, Orthopedic Cardiovascular Cardiac Disorders: Deep Vein Thrombosis, High Cholesterol, Hypertension Reproductive System Hx Reproductive Disorders: No Gastrointestinal Gastrointestinal Disorders: Gastroesophageal Reflux Musculoskeletal Musculoskeletal Disorders: Arthritis Endocrine Endocrine Disorders: Diabetes, Non-Insulin dep Family Medical History Significant Family History: No Pertinent Family Hx Physical Exam Vital Signs Vital Sign - Last 12Hours 07/26/17 11:35 Temp 97.9 Pulse 91 Resp 20 B/P (MAP) 196/99 Pulse Ox 99 Capillary Refill : General Appearance: WD/WN, no apparent distress HEENT: PERRL/EOMI, normal ENT inspection Neck: non-tender, full range of motion Cardiovascular: regular rate, rhythm, no murmur Respiratory: normal breath sounds, no respiratory distress, no accessory muscle use Gastrointestinal: normal bowel sounds, non tender, soft Extremities: normal range of motion, non-tender Neurologic/Psychiatric: alert, normal mood/affect, oriented x 3 Skin: normal color, warm/dry Progress/Results/Core Measures Results/Orders Lab Results Laboratory Tests Test 07/26/17 11:20 Range/Units Urine Color STRAW Urine Clarity CLEAR Urine pH 8 5-9 Urine Specific [place] 1.015 L 1.016-1.022 Urine Protein NEGATIVE NEGATIVE Urine Glucose (UA) NEGATIVE NEGATIVE Urine Ketones NEGATIVE NEGATIVE Urine Nitrite NEGATIVE NEGATIVE Urine Bilirubin NEGATIVE NEGATIVE Urine Urobilinogen NORMAL NORMAL MG/DL Urine Leukocyte Esterase NEGATIVE NEGATIVE Urine RBC (Auto) 1+ H NEGATIVE Urine RBC NONE /HPF Urine WBC NONE /HPF Urine Crystals NONE /LPF Urine Bacteria TRACE /HPF Urine Casts NONE /LPF Urine Mucus NEGATIVE /LPF Urine Culture Indicated NO Sodium Level 142 135-145 MMOL/L Potassium Level 4.4 3.6-5.0 MMOL/L Chloride Level 110 H 98-107 MMOL/L Carbon Dioxide Level 20 L 21-32 MMOL/L Anion Gap 12 5-14 MMOL/L Blood Urea Nitrogen 13 7-18 MG/DL Creatinine 0.66 0.60-1.30 MG/DL Estimat Glomerular Filtration Rate > 60 BUN/Creatinine Ratio 20 Glucose Level 127 H 70-105 MG/DL Calcium Level 9.2 8.5-10.1 MG/DL My Orders Orders - TWYLA VALVERDE APRN Ct Head Wo (07/26/17 10:48) Chest 1 View, Ap/Pa Only (07/26/17 10:48) Shoulder, Right, 3 Views (07/26/17 10:48) Knee, Right, 3 Views (07/26/17 10:48) Cbc With Automated Diff (07/26/17 10:48) Basic Metabolic Panel (07/26/17 10:48) Ua Culture If Indicated (07/26/17 10:48) Clonidine Tablet (Catapres Tablet) (07/26/17 12:15) Vital Signs/I&O Vital Sign - Last 12Hours 07/26/17 11:35 Temp 97.9 Pulse 91 Resp 20 B/P (MAP) 196/99 Pulse Ox 99 Departure Impression Impression: Primary Impression: Fall at group home Disposition: 01 HOME, SELF-CARE Condition: Stable Departure-Patient Inst. Decision time for Depature: 12:31 Referrals: ADEN LEE DO (PCP/Family) Primary Care Physician Patient Instructions: Preventing Falls in the Older Adult Add. Discharge Instructions: All discharge instructions reviewed with patient and/or family. Voiced understanding. Copy Copies To 1: ADEN LEE PETER J APRN Jul 26, 2017 10:50
--- NOTE | 2017-07-26 12:00 | Diagnostic Imaging Report ---
INDICATION: Fall, right knee pain 3 views of the right knee show changes of prior total joint arthroplasty. No loosening is evident. There is no fracture or dislocation. These findings are similar to a prior study from 10/21/2009. IMPRESSION: No acute abnormality is seen. Dictated by: Dictated on workstation # [id number]
--- NOTE | 2017-07-26 12:01 | Diagnostic Imaging Report ---
PROCEDURE: CT head without contrast. TECHNIQUE: Multiple contiguous axial images were obtained through the brain without the use of intravenous contrast. INDICATION: Fall. The ventricles are normal in size, shape and position. There is no acute parenchymal hemorrhage, edema or mass. There is no extra-axial mass or hemorrhage. There is no fracture. IMPRESSION: No acute abnormality is seen with no change from 02/27/2015. Dictated by: Dictated on workstation # [id number]
--- NOTE | 2017-07-26 12:04 | Diagnostic Imaging Report ---
INDICATION: Trauma, fall FINDINGS: Left reverse shoulder arthroplasty performed, the right shoulder arthritic. No displaced chest wall fracture deformity. No lung contusion pneumothorax or hemothorax. No appreciable free air beneath the diaphragms. There are what appear to be old healed left rib deformities. IMPRESSION: No acute posttraumatic sequelae identified. Old appearing rib deformities on the left postoperative and degenerative changes. Clear lungs with no effusion or pneumothorax. Dictated by: Dictated on workstation # [id number]
--- NOTE | 2017-07-26 12:05 | Diagnostic Imaging Report ---
INDICATION: Fall pain FINDINGS: There is osteoarthritic changes to the glenohumeral and acromioclavicular joints. No fracture or dislocation is evident. The visualized adjacent ribs and pleura unremarkable. IMPRESSION: Substantial chronic degenerative change, no fracture or acute abnormality however. Dictated by: Dictated on workstation # [id number]
[2017-07-26 12:06] LABS: ANION GAP 12 MMOL/L (5-14); BLOOD UREA NITROGEN 13 MG/DL (7-18); BUN/CREATININE RATIO 20; CALCIUM 9.2 MG/DL (8.5-10.1); CARBON DIOXIDE 20 MMOL/L (21-32); CHLORIDE 110 MMOL/L (98-107); CREATININE SERUM 0.66 MG/DL (0.60-1.30); GFR ESTIMATED > 60; GLUCOSE 127 MG/DL (70-105); POTASSIUM 4.4 MMOL/L (3.6-5.0); SODIUM 142 MMOL/L (135-145)
[2017-07-26 12:10] LABS: BILIRUBIN,URINE NEGATIVE (NEGATIVE); KETONES,URINE NEGATIVE (NEGATIVE); LEUKOCYTE ESTERASE ,URINE NEGATIVE (NEGATIVE); NITRITE,URINE NEGATIVE (NEGATIVE); PH,URINE 8 (5-9); PROTEIN,URINE NEGATIVE (NEGATIVE); UROBILINOGEN,URINE NORMAL (NORMAL)
[2017-07-26] MEDS ORDERED: cloNIDine 0.1 MG (CATAPRES) TAB PO ONE (12:15)
[2017-07-26 12:36] LABS: BASOPHILS % (AUTO) 0 % (0-10); EOSINOPHILS # (AUTO) 0.1 10^3/uL (0.0-0.3); EOSINOPHILS % (AUTO) 2 % (0-10); LYMPHOCYTES # (AUTO) 0.7 X 10^3 (1.0-4.0); LYMPHOCYTES % (AUTO) 11 % (12-44); MEAN CORPUSCULAR HEMOGLOBIN 29 PG (25-34); MEAN CORPUSCULAR HGB CONC 33 G/DL (32-36); MEAN CORPUSCULAR VOLUME 88 FL (80-99); MEAN PLATELET VOLUME 10.6 FL (7.4-10.4); MONOCYTES # (AUTO) 0.6 X 10^3 (0.0-1.0); MONOCYTES % (AUTO) 9 % (0-12); NEUTROPHILS % (AUTO) 78 % (42-75); PLATELET COUNT 125 10^3/uL (130-400); RED BLOOD COUNT 4.16 10^6/uL (4.35-5.85); RED CELL DISTRIBUTION WIDTH 13.9 % (10.0-14.5); WHITE BLOOD COUNT 6.4 10^3/uL (4.3-11.0)
[2017-07-26 13:00] VITALS: BP 154/103
== END 2017-07-26 13:00 | disposition home or self-care (01) ==
LOC: EDUNIT# 09:52 → ER 09:53
DX: M25.511 Pain in right shoulder (principal); M25.561 Pain in right knee; F03.90 Unspecified dementia, unspecified severity, without behavioral disturbance, psychotic disturbance, mood disturbance, and anxiety; E78.00 Pure hypercholesterolemia, unspecified; I10 Essential (primary) hypertension; E11.9 Type 2 diabetes mellitus without complications; Z86.718 Personal history of other venous thrombosis and embolism; Z79.84 Long term (current) use of oral hypoglycemic drugs; V00.811A Fall from moving wheelchair (powered), initial encounter; Y92.129 Unspecified place in nursing home as the place of occurrence of the external cause
CPT/HCPCS: 36415; 51701; 70450; 71010; 73030; 73562; 80048; 81000; 83036; 85025; 99284

== ENCOUNTER → 2017-08-05 | Outpatient (CLI) | payer MEDICARE, OTHER ==
[2017-08-05 08:57] LABS: ALANINE AMINOTRANSFERASE 13 U/L (0-55); ALBUMIN 3.3 GM/DL (3.2-4.5); ANION GAP 9 MMOL/L (5-14); ASPARTATE AMINO TRANSFERASE 17 U/L (5-34); BILIRUBIN,TOTAL 0.9 MG/DL (0.1-1.0); BLOOD UREA NITROGEN 14 MG/DL (7-18); BUN/CREATININE RATIO 20; CARBON DIOXIDE 24 MMOL/L (21-32); CHLORIDE 109 MMOL/L (98-107); CHOLESTEROL 161 MG/DL (< 200); CREATININE SERUM 0.71 MG/DL (0.60-1.30); DIRECT LDL 97 MG/DL (1-129); GFR ESTIMATED > 60; GLUCOSE 108 MG/DL (70-105); POTASSIUM 4.1 MMOL/L (3.6-5.0); SODIUM 142 MMOL/L (135-145); TOTAL PROTEIN 6.7 GM/DL (6.4-8.2); TRIGLYCERIDES 65 MG/DL (<150); VLDL CHOLESTEROL 13 MG/DL (5-40)
== END ==
LOC: LAB 08:01
PROVIDERS: ATTEND Family Medicine
DX: E78.5 Hyperlipidemia, unspecified (principal); E11.9 Type 2 diabetes mellitus without complications
CPT/HCPCS: 36415; 80053; 80061; 83036

== ENCOUNTER 2017-10-18 16:05 | Emergency (ER) | payer MEDICARE, OTHER, MEDICAID ==
[~2017-10-18] VITALS: Ht 177.8 cm; Wt 136.1 kg
--- OUTSIDE RECORDS SUMMARY | 2017-10-18 16:13 | XMS REPORT | Continuity of Care Document ---
Author Author [facility] Organization [facility] Address Unknown Phone Unavailable Allergies Active Description Code Type Severity Reaction Onset Reported/Identified Relationship to Patient Clinical Status Yes codeine [id number] Drug Allergy Unknown N/A 12/21/2006 Yes Penicillins [id number] Drug Allergy Unknown N/A 12/21/2006 Yes aspirin [id number] Drug Allergy Unknown NAUSEA 10/07/2016 Medications There is no data. Problems Date Dx Coded Attending Type Code Diagnosis Diagnosed By 07/30/1199 IOANA TARIQ DO Ot M47.816 SPONDYLOSIS W/O MYELOPATHY OR RADICULOPA 04/01/2010 Ot 287.5 04/01/2010 Ot 577.2 04/01/2010 [...] RESPIRATORY ABNORM NEC 01/06/2012 Ot V58.69 OTH MED,LT, CURRENT USE 01/09/2012 Ot 729.81 SWELLING OF LIMB [...] DO Ot V57.1 PHYSICAL THERAPY NEC 07/26/2014 ADEN LEE DO Ot V76.12 09/19/2014 BIJU, REBEL L WASHING TUB OPERATOR Ot 250.00 09/19/2014 BAIMA, REBEL L WASHING TUB OPERATOR Ot 272.4 09/19/2014 BAIMA, REBEL L WASHING TUB OPERATOR Ot 401.9 02/27/2015 BAIMA, REBEL L WASHING TUB OPERATOR Ot 250.00 02/27/2015 BAIMA, REBEL L WASHING TUB OPERATOR Ot 272.4 02/27/2015 BAIMA, REBEL L WASHING TUB OPERATOR Ot 401.9 02/27/2015 Ot 250.00 02/27/2015 BIJU, REBEL L WASHING TUB OPERATOR Ot 272.4 02/27/2015 JESUS KATE, ADEN Mohr Ot 250.00 02/27/2015 JESUS KATE, ADEN Mohr Ot 401.9 02/27/2015 JESUS KATE ADEN Mohr Ot 782.3 02/27/2015 BRUCE FORTE MD Ot [...] NEC 02/27/2015 BRUCE FORTE MD Ot V06.1 [id number], COMBINED [ 03/06/2015 AJITH FOWLER, LATASHA Hummel Ot V58.32 ENCOUNTER FOR REMOVAL OF SUTURES 03/15/2015 NINILENDER , ADEN Mohr Ot 250.00 03/15/2015 GELLENDER DO, ADEN Mohr Ot 401.9 03/15/2015 GELLENDER DOADEN Ot 782.3 07/02/2015 GELLENDER DOADEN Ot Z12.31 07/04/2015 Ot 789.01 07/04/2015 Ot [...] 575.8 07/04/2015 Ot 789.01 07/04/2015 REBEL IVY WASHING TUB OPERATOR Ot 272.4 07/04/2015 REBEL IVY WASHING TUB OPERATOR Ot 401.9 07/04/2015 REBEL IVY WASHING TUB OPERATOR Ot V58.69 07/04/2015 [facility] ADEN Fani Ot 786.50 07/04/2015 GELLENDER DO, ADEN Mohr Ot V76.12 07/04/2015 GELLENDER DO, ADEN Mohr Ot 250.00 07/04/2015 GELLENDER DO, ADEN Mohr Ot 272.4 07/04/2015 CHANDNI DO, IOANA Mai Ot 721.0 07/04/2015 BAIMA, REBEL L WASHING TUB OPERATOR Ot 397.0 07/04/2015 BAIMA, REBEL L WASHING TUB OPERATOR Ot 416.8 07/04/2015 BAIMA, REBEL L WASHING TUB OPERATOR Ot 424.0 07/04/2015 BAIMA, REBEL L WASHING TUB OPERATOR Ot 272.4 07/04/2015 BAIMA, REBEL L WASHING TUB OPERATOR Ot V58.69 07/04/2015 GELLENDER DO, ADEN Mohr Ot 786.50 07/04/2015 GELLENDER DO, ADEN Mohr Ot V15.88 07/04/2015 BAIMA, REBEL L WASHING TUB OPERATOR Ot 272.4 07/04/2015 GELLENDER DO, ADEN Mohr Ot 250.00 07/04/2015 GELLENDER DO, ADEN Mohr Ot 401.9 07/04/2015 GELLENDER DO, ADEN Mohr Ot V76.12 07/04/2015 BAIMA, REBEL L WASHING TUB OPERATOR Ot 250.00 07/04/2015 BAIMA, REBEL L WASHING TUB OPERATOR Ot 272.4 07/04/2015 BAIMA, REBEL L WASHING TUB OPERATOR Ot 401.9 07/04/2015 Ot 250.00 07/04/2015 BAIMA, REBEL L WASHING TUB OPERATOR Ot 272.4 07/04/2015 GELLENDER DO, ADEN Mohr [...] Ot M25.512 PAIN IN LEFT SHOULDER 05/07/2016 JESUS KATE, ADEN Mohr Ot E11.9 TYPE 2 DIABETES MELLITUS WITHOUT COMPLIC 05/07/2016 JESUS KATE, ADEN Mohr Ot E78.5 HYPERLIPIDEMIA, UNSPECIFIED 05/19/2016 IOANA TARIQ DO Ot M25.512 PAIN IN LEFT SHOULDER 05/22/2016 ADEN LEE DO Ot D69.6 THROMBOCYTOPENIA, UNSPECIFIED 05/22/2016 JESUS KATE, ADEN Mohr Ot D72.819 DECREASED WHITE BLOOD CELL COUNT, UNSPEC 05/29/2016 JESUS KATE, ADEN Mohr Ot E11.9 TYPE 2 DIABETES MELLITUS WITHOUT COMPLIC 05/29/2016 JESUS KATE, ADEN Mohr Ot E78.5 HYPERLIPIDEMIA, UNSPECIFIED 05/30/2016 IOANA TARIQ DO Ot M25.512 PAIN IN LEFT SHOULDER 06/11/2016 ADEN LEE DO Ot D69.6 THROMBOCYTOPENIA, UNSPECIFIED 06/11/2016 ADEN LEE DO Ot D72.819 DECREASED WHITE BLOOD CELL COUNT, UNSPEC 06/12/2016 CHANDNI KATE IOANA Mai Ot M25.512 PAIN IN LEFT SHOULDER 06/12/2016 CHANDNI KATE, IOANA Mai Ot Z98.890 OTHER SPECIFIED POSTPROCEDURAL STATES 06/30/2016 ADEN LEE DO Ot Z12.31 ENCNTR SCREEN MAMMOGRAM FOR MALIGNANT NE 07/04/2016 Ot V76.12 OT SCREEN MAMMO-MALIGN NEOPLASM OF VAN 07/04/2016 Ot 511.9 PLEURAL EFFUSION NOS 07/04/2016 Ot 807.01 FRACTURE ONE RIB-CLOSED 07/04/2016 Ot E000.8 OTHER EXTERNAL CAUSE STATUS 07/04/2016 Ot E849.0 ACCIDENT IN HOME 07/04/2016 Ot E888.9 FALL NOS 07/04/2016 Ot 287.5 THROMBOCYTOPENIA NOS 07/04/2016 Ot 272.4 HYPERLIPIDEMIA NEC/NOS 07/04/2016 Ot 401.9 HYPERTENSION NOS 07/04/2016 Ot V72.63 PRE- PROCEDURAL LABORATORY EXAMINATION 07/04/2016 Ot V72.81 EXAM-PRE- OPERATIVE CARDIOVASCULAR 07/04/2016 Ot V72.83 EXAM PRE- OPERATIVE NEC 07/04/2016 Ot V74.8 SCREEN- BACTERIAL DIS NEC 07/04/2016 Ot 250.00 DIAB BHAVIK [...] 272.4 HYPERLIPIDEMIA NEC/NOS 07/04/2016 Ot V58.69 OTH MED,LT, CURRENT USE 07/04/2016 Ot 789.01 ABDOMINAL PAIN, RIGHT UPPER QUADRANT 07/04/2016 Ot 575.8 DIS OF GALLBLADDER NEC 07/04/2016 Ot 789.01 ABDOMINAL PAIN, RIGHT UPPER QUADRANT 07/04/2016 BIJU, REBEL L WASHING TUB OPERATOR Ot 272.4 HYPERLIPIDEMIA NEC/NOS 07/04/2016 BAIHOSEA REBEL L WASHING TUB OPERATOR Ot 401.9 HYPERTENSION NOS 07/04/2016 BIJU REBEL L WASHING TUB OPERATOR Ot V58.69 OTH MED,LT,CURRENT USE 07/04/2016 ADEN LEE DO Ot 786.50 CHEST PAIN NOS 07/04/2016 ADEN LEE DO Ot V76.12 OTH SCREEN MAMMO-MALIGN NEOPLASM OF VNA 07/04/2016 ADEN LEE DO Ot 250.00 DIAB BHAVIK WO COMPL, TYPE II OR UNSPEC TY 07/04/2016 ADEN LEE DO Ot 272.4 HYPERLIPIDEMIA NEC/NOS 07/04/2016 IOANA TARIQ DO Ot 721.0 CERVICAL SPONDYLOSIS 07/04/2016 LEANDROMA, REBEL L WASHING TUB OPERATOR Ot 397.0 TRICUSPID VALVE DISEASE 07/04/2016 BAIMA, REBEL L WASHING TUB OPERATOR Ot 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 NEC 07/04/2016 BAIMA, REBEL L WASHING TUB OPERATOR Ot 424.0 MITRAL VALVE DISORDER 07/04/2016 BAIMA, REBEL L WASHING TUB OPERATOR Ot 272.4 HYPERLIPIDEMIA NEC/NOS 07/04/2016 BAIMA, REBEL L WASHING TUB OPERATOR Ot V58.69 OTH MED,LT,CURRENT USE 07/04/2016 ADEN LEE DO Ot 786.50 CHEST PAIN NOS 07/04/2016 GELLENDER DO, ADEN Mohr Ot V15.88 HISTORY OF FALL 07/04/2016 REBEL IVY WASHING TUB OPERATOR Ot 272.4 HYPERLIPIDEMIA NEC/NOS 07/04/2016 GELLENDER DO, ADEN Mohr Ot 250.00 DIAB BHAVIK WO COMPL, TYPE II OR UNSPEC TY 07/04/2016 GELLENDER DO, ADEN Mohr Ot 401.9 HYPERTENSION NOS 07/04/2016 GELLENDER DO, ADEN Mohr Ot V76.12 OTH SCREEN MAMMO-MALIGN NEOPLASM OF VAN 07/04/2016 BIJU REBEL Rafael WASHING TUB OPERATOR Ot 250.00 DIAB BHAVIK WO COMPL, TYPE II OR UNSPEC TY 07/04/2016 BAIMA REBEL L WASHING TUB OPERATOR Ot 272.4 HYPERLIPIDEMIA NEC/NOS 07/04/2016 LEANDROHOSEA REBEL Rafael WASHING TUB OPERATOR Ot 401.9 HYPERTENSION NOS 07/04/2016 Ot 250.00 DIAB BHAVIK WO COMPL, TYPE II OR UNSPEC TY 07/04/2016 LEANDROHOSEA REBEL L WASHING TUB OPERATOR Ot 272.4 HYPERLIPIDEMIA NEC/NOS 07/04/2016 GELLENDER DO, ADEN Mohr Ot 250.00 DIAB BHAVIK WO COMPL, TYPE II OR UNSPEC TY 07/04/2016 GELLENDER DO, ADEN Mohr Ot 401.9 HYPERTENSION NOS 07/04/2016 GELLENDER DO, ADEN Mohr Ot 782.3 EDEMA 07/04/2016 GELAYANDER DOADEN Ot Z12.31 ENCNTR SCREEN MAMMOGRAM FOR MALIGNANT NE 07/04/2016 CHANDNI KATE, IOANA Mai Ot M16.12 UNILATERAL PRIMARY OSTEOARTHRITIS, LEFT 07/04/2016 CHANDNI KATE, IOANA Mai Ot M47.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, LUMBAR REGION 07/04/2016 ANNADER ADEN KATE Ot E11.9 TYPE 2 DIABETES MELLITUS WITHOUT COMPLIC 07/04/2016 GELLENDER DOADEN Ot I10 ESSENTIAL (PRIMARY) HYPERTENSION 07/04/2016 Ot E11.9 TYPE 2 DIABETES MELLITUS WITHOUT COMPLIC 07/04/2016 Ot E78.5 HYPERLIPIDEMIA, UNSPECIFIED 07/04/2016 GELLENDER DOADEN Ot E11.9 TYPE 2 DIABETES MELLITUS WITHOUT COMPLIC 07/04/2016 GELLENDER DOADEN Ot E78.5 HYPERLIPIDEMIA, UNSPECIFIED 07/04/2016 GELLENDER DOADEN Ot D69.6 THROMBOCYTOPENIA, UNSPECIFIED 07/04/2016 GELLENDER DOADEN Ot D72.819 DECREASED WHITE BLOOD CELL COUNT, UNSPEC 07/04/2016 GELLENDER DO, ADEN Mohr Ot Z12.31 ENCNTR SCREEN MAMMOGRAM FOR MALIGNANT NE 07/10/2016 GELLENDER DO, ADEN Mohr Ot Z12.31 ENCNTR SCREEN MAMMOGRAM FOR MALIGNANT NE 08/29/2016 NINILENDER DO, ADEN Mohr Ot E11.9 TYPE 2 DIABETES MELLITUS WITHOUT COMPLIC 08/29/2016 GELLENDER DO, ADEN Mohr Ot E78.5 HYPERLIPIDEMIA, UNSPECIFIED 08/29/2016 GELLENDER DO, ADEN Mohr Ot I10 ESSENTIAL (PRIMARY) HYPERTENSION 09/18/2016 GELLENDER DO, ADEN Mohr Ot E11.9 TYPE 2 DIABETES MELLITUS WITHOUT COMPLIC 09/18/2016 GELLENDER DO, ADEN Mohr Ot E78.5 HYPERLIPIDEMIA, UNSPECIFIED 09/18/2016 [facility], ADEN Mohr Ot I10 ESSENTIAL (PRIMARY) HYPERTENSION 10/07/2016 AMADOR CHENG MD, Ot E11.9 TYPE 2 DIABETES MELLITUS WITHOUT COMPLIC 10/07/2016 AMADOR CHENG MD, Ot I10 ESSENTIAL (PRIMARY) HYPERTENSION 10/07/2016 AMADOR CHENG MD Ot S80.02XA CONTUSION OF LEFT KNEE, INITIAL ENCOUNTE 10/07/2016 AMADOR CHENG MD, Ot S89.92XA UNSPECIFIED INJURY OF LEFT LOWER LEG, IN 10/07/2016 AMADOR CHENG MD Ot W01.0XXA FALL SAME LEV FROM SLIP/TRIP W/O STRIKE 10/07/2016 AMADOR CHENG MD Ot Y92.009 [facility] PL[facility] IN [facility] NON-INSTITUT (PRIVATE 10/07/2016 AMADOR CHENG MD, Ot Y99.8 OTHER EXTERNAL CAUSE STATUS 10/07/2016 AMADOR CHENG MD Ot Z79.84 SLASHER HAND (CURRENT) USE OF ORAL HYPOGLYC 10/07/2016 AMADOR CHENG MD, Ot Z79.899 OTHER LONG-TERM (CURRENT) DRUG THERAPY 10/07/2016 AMADOR CHENG MD, Ot Z96.653 PRESENCE OF ARTIFICIAL KNEE JOINT, BILAT 10/07/2016 Ot V76.12 OT SCREEN MAMMO-MALIGN NEOPLASM OF VAN 10/07/2016 Ot 511.9 PLEURAL EFFUSION NOS 10/07/2016 Ot 807.01 FRACTURE ONE RIB-CLOSED 10/07/2016 Ot E000.8 OTHER EXTERNAL CAUSE STATUS 10/07/2016 Ot E849.0 ACCIDENT IN HOME 10/07/2016 Ot E888.9 FALL NOS 10/07/2016 Ot 287.5 THROMBOCYTOPENIA NOS 10/07/2016 Ot 272.4 HYPERLIPIDEMIA NEC/NOS 10/07/2016 Ot 401.9 HYPERTENSION NOS 10/07/2016 Ot V72.63 PRE- PROCEDURAL LABORATORY EXAMINATION 10/07/2016 Ot V72.81 EXAM-PRE- OPERATIVE CARDIOVASCULAR 10/07/2016 Ot V72.83 EXAM PRE- OPERATIVE NEC 10/07/2016 Ot V74.8 SCREEN- BACTERIAL DIS NEC 10/07/2016 Ot 250.00 DIAB BHAVIK WO COMPL, TYPE II OR UNSPEC TY 10/07/2016 Ot 272.4 HYPERLIPIDEMIA NEC/NOS 10/07/2016 Ot 401.9 HYPERTENSION NOS 10/07/2016 Ot 786.09 RESPIRATORY ABNORM NEC 10/07/2016 Ot 250.00 DIAB BHAVIK WO COMPL, TYPE II OR UNSPEC TY 10/07/2016 Ot 272.4 HYPERLIPIDEMIA NEC/NOS 10/07/2016 Ot 401.9 HYPERTENSION NOS 10/07/2016 Ot 786.09 RESPIRATORY ABNORM NEC 10/07/2016 Ot V76.12 OTH SCREEN MAMMO-MALIGN NEOPLASM OF VAN 10/07/2016 Ot 272.4 HYPERLIPIDEMIA NEC/NOS 10/07/2016 Ot V58.69 OTH MED,LT, CURRENT USE 10/07/2016 Ot 789.01 ABDOMINAL PAIN, RIGHT UPPER QUADRANT 10/07/2016 Ot 575.8 DIS OF GALLBLADDER NEC 10/07/2016 Ot 789.01 ABDOMINAL PAIN, RIGHT UPPER QUADRANT 10/07/2016 BAIMA, REBEL L WASHING TUB OPERATOR Ot 272.4 HYPERLIPIDEMIA NEC/NOS 10/07/2016 BAIMA, REBEL L WASHING TUB OPERATOR Ot 401.9 HYPERTENSION NOS 10/07/2016 BAIMA, REBEL L WASHING TUB OPERATOR Ot V58.69 OTH MED,LT,CURRENT USE 10/07/2016 ADEN LEE DO Ot 786.50 CHEST PAIN NOS 10/07/2016 ADEN LEE DO Ot V76.12 OTH SCREEN MAMMO-MALIGN NEOPLASM OF VAN 10/07/2016 ADEN LEE DO Ot 250.00 DIAB BHAVIK WO COMPL, TYPE II OR UNSPEC TY 10/07/2016 GELLENDER DO, ADEN A Ot 272.4 HYPERLIPIDEMIA NEC/NOS 10/07/2016 IOANA TARIQ DO Ot 721.0 CERVICAL SPONDYLOSIS 10/07/2016 BAIMA, REBEL L WASHING TUB OPERATOR Ot 397.0 TRICUSPID VALVE DISEASE 10/07/2016 BAIMA, REBEL L WASHING TUB OPERATOR Ot 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 NEC 10/07/2016 BAIMA, REBEL L WASHING TUB OPERATOR Ot 424.0 MITRAL VALVE DISORDER 10/07/2016 BAIMA, REBEL L WASHING TUB OPERATOR Ot 272.4 HYPERLIPIDEMIA NEC/NOS 10/07/2016 BAIMA, REBEL L WASHING TUB OPERATOR Ot V58.69 OTH MED,LT,CURRENT USE 10/07/2016 GELLENDER DO, ADEN Mohr Ot 786.50 CHEST PAIN NOS 10/07/2016 GELLENDER DO, ADEN Mohr Ot V15.88 HISTORY OF FALL 10/07/2016 BIJU REBEL L WASHING TUB OPERATOR Ot 272.4 HYPERLIPIDEMIA NEC/NOS 10/07/2016 GELLENDER DO, ADEN Mohr Ot 250.00 DIAB BHAVIK WO COMPL, TYPE II OR UNSPEC TY 10/07/2016 GELLENDER DO, ADEN Fani Ot 401.9 HYPERTENSION NOS 10/07/2016 GELLENDER DO, ADEN Mohr Ot V76.12 OTH SCREEN MAMMO-MALIGN NEOPLASM OF VAN 10/07/2016 LEANDROMA REBEL L WASHING TUB OPERATOR Ot 250.00 DIAB BHAVIK WO COMPL, TYPE II OR UNSPEC TY 10/07/2016 BAIMA, REBEL L WASHING TUB OPERATOR Ot 272.4 HYPERLIPIDEMIA NEC/NOS 10/07/2016 BAIHOSEA REBEL L WASHING TUB OPERATOR Ot 401.9 HYPERTENSION NOS 10/07/2016 Ot 250.00 DIAB BHAVIK WO COMPL, TYPE II OR UNSPEC TY 10/07/2016 BAIMA REBEL L WASHING TUB OPERATOR Ot 272.4 HYPERLIPIDEMIA NEC/NOS 10/07/2016 GELLENDER DO, ADEN A Ot 250.00 DIAB BHAVIK WO COMPL, TYPE II OR UNSPEC TY 10/07/2016 GELLENDER DO, ADEN A Ot 401.9 HYPERTENSION NOS 10/07/2016 GELLENDER DO, ADEN Mohr Ot 782.3 EDEMA 10/07/2016 GELLENDER DO, ADEN Mohr Ot Z12.31 ENCNTR SCREEN MAMMOGRAM FOR MALIGNANT NE 10/07/2016 IOANA TARIQ DO Ot M16.12 UNILATERAL PRIMARY OSTEOARTHRITIS, LEFT 10/07/2016 CHANDNI DO, IOANA Mai Ot M47.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, LUMBAR REGION 10/07/2016 GELLENDER DO, ADEN Mohr Ot E11.9 TYPE 2 DIABETES MELLITUS WITHOUT COMPLIC 10/07/2016 GELLENDER DO, ADEN Mohr Ot I10 ESSENTIAL (PRIMARY) HYPERTENSION 10/07/2016 Ot E11.9 TYPE 2 DIABETES MELLITUS WITHOUT COMPLIC 10/07/2016 Ot E78.5 HYPERLIPIDEMIA, UNSPECIFIED 10/07/2016 GELLENDER DO, ADEN Mohr Ot E11.9 TYPE 2 DIABETES MELLITUS WITHOUT COMPLIC 10/07/2016 GELLENDER DO, ADEN Mohr Ot E78.5 HYPERLIPIDEMIA, UNSPECIFIED 10/07/2016 GELLENDER DO, ADEN Mohr Ot D69.6 THROMBOCYTOPENIA, UNSPECIFIED 10/07/2016 GELLENDER DO, ADEN Mohr Ot D72.819 DECREASED WHITE BLOOD CELL COUNT, UNSPEC 10/07/2016 GELLENDER DO, ADEN Mohr Ot Z12.31 ENCNTR SCREEN MAMMOGRAM FOR MALIGNANT NE 10/07/2016 GELLENDER DO, ADEN Mohr Ot E11.9 TYPE 2 DIABETES MELLITUS WITHOUT COMPLIC 10/07/2016 GELLENDER DO, ADEN Mohr Ot E78.5 HYPERLIPIDEMIA, UNSPECIFIED 10/07/2016 GELLENDER DO, ADEN Fani Ot I10 ESSENTIAL (PRIMARY) HYPERTENSION 10/08/2016 AMADOR CHENG MD, Ot E11.9 TYPE 2 DIABETES MELLITUS WITHOUT COMPLIC 10/08/2016 AMADOR CHENG MD, Ot I10 ESSENTIAL (PRIMARY) HYPERTENSION 10/08/2016 AMADOR CHENG MD Ot S80.02XA CONTUSION OF LEFT KNEE, INITIAL ENCOUNTE 10/08/2016 AMADOR CHENG MD, Ot S89.92XA UNSPECIFIED INJURY OF LEFT LOWER LEG, IN 10/08/2016 AMADOR CHENG MD, Ot W01.0XXA FALL SAME LEV FROM SLIP/TRIP W/O STRIKE 10/08/2016 AMADOR CHENG MD Ot Y92.009 [facility] IN [facility] NON-INSTITUT (PRIVATE 10/08/2016 AMADOR CHENG MD, Ot Y99.8 OTHER EXTERNAL CAUSE STATUS 10/08/2016 AMADOR CHENG MD Ot Z79.84 SLASHER HAND (CURRENT) USE OF ORAL HYPOGLYC 10/08/2016 PROSPER FOWLER, AMADOR Rosario Ot Z79.899 OTHER SLASHER HAND (CURRENT) DRUG THERAPY 10/08/2016 PROSPER FOWLER, AMADOR Rosario Ot Z96.653 PRESENCE OF ARTIFICIAL KNEE JOINT, BILAT 10/09/2016 BAIHOSEA REBEL L WASHING TUB OPERATOR Ot 250.00 DIAB BHAVIK WO COMPL, TYPE II OR UNSPEC TY 10/09/2016 BAIMA REBEL L WASHING TUB OPERATOR Ot 272.4 HYPERLIPIDEMIA NEC/NOS 10/09/2016 BAIMA, REBEL L WASHING TUB OPERATOR Ot 401.9 HYPERTENSION NOS 10/09/2016 Ot 250.00 DIAB BHAVIK WO COMPL, TYPE II OR UNSPEC TY 10/09/2016 BAIHOSEA, REBEL L WASHING TUB OPERATOR Ot 272.4 HYPERLIPIDEMIA NEC/NOS 10/09/2016 GELLENDER DO, ADEN Fani Ot 250.00 DIAB BHAVIK WO COMPL, TYPE II OR UNSPEC TY 10/09/2016 GELLENDER , ADEN Mohr Ot 401.9 HYPERTENSION NOS 10/09/2016 GELAYANDER ADEN KATE Ot 782.3 EDEMA 10/09/2016 GELLENDER ADEN KATE Ot Z12.31 ENCNTR SCREEN MAMMOGRAM FOR MALIGNANT NE 10/09/2016 IOANA TARIQ DO Ot M16.12 UNILATERAL PRIMARY OSTEOARTHRITIS, LEFT 10/09/2016 IOANA TARIQ DO Ot M47.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, LUMBAR REGION 10/09/2016 ANNADER ADEN KATE Ot E11.9 TYPE 2 DIABETES MELLITUS WITHOUT COMPLIC 10/09/2016 ADEN LEE DO Ot I10 ESSENTIAL (PRIMARY) HYPERTENSION 10/09/2016 Ot E11.9 TYPE 2 DIABETES MELLITUS WITHOUT COMPLIC 10/09/2016 Ot E78.5 HYPERLIPIDEMIA, UNSPECIFIED 10/09/2016 GELLENDER DOADEN Ot E11.9 TYPE 2 DIABETES MELLITUS WITHOUT COMPLIC 10/09/2016 GELLENDER ADEN KATE Ot E78.5 HYPERLIPIDEMIA, UNSPECIFIED 10/09/2016 GELLENDER ADEN KATE Ot D69.6 THROMBOCYTOPENIA, UNSPECIFIED 10/09/2016 GELLENDER ADEN KATE Ot D72.819 DECREASED WHITE BLOOD CELL COUNT, UNSPEC 01/02/2017 IOANA TARIQ DO Ot M47.816 SPONDYLOSIS W/O MYELOPATHY OR RADICULOPA 01/14/2017 GELLENDER DO, ADEN Mohr Ot E05.90 THYROTOXICOSIS, UNSP WITHOUT THYROTOXIC 01/14/2017 JESUS KATE ADEN Mohr Ot E11.9 TYPE 2 DIABETES MELLITUS WITHOUT COMPLIC 01/14/2017 JESUS KATE, ADEN Mohr Ot I10 ESSENTIAL (PRIMARY) HYPERTENSION 01/20/2017 [facility] Ot D69.6 THROMBOCYTOPENIA, UNSPECIFIED 01/22/2017 IOANA TARIQ DO Ot M47.816 SPONDYLOSIS W/O MYELOPATHY OR RADICULOPA 02/11/2017 [facility] , ADEN Mohr Ot D69.6 THROMBOCYTOPENIA, UNSPECIFIED 07/26/2017 TWYLA VALVERDE APRN Ot E11.9 TYPE 2 DIABETES MELLITUS WITHOUT COMPLIC 07/26/2017 TWYLA VALVERDE APRN Ot E78.00 PURE HYPERCHOLESTEROLEMIA, UNSPECIFIED 07/26/2017 TWYLA VALVERDE APRN Ot F03.90 UNSPECIFIED DEMENTIA WITHOUT BEHAVIORAL 07/26/2017 TWYLA VALVERDE APRN Ot I10 ESSENTIAL (PRIMARY) HYPERTENSION 07/26/2017 TWYLA VALVERDE APRN Ot M25.511 PAIN IN RIGHT SHOULDER 07/26/2017 TWYLA VALVERDE APRN Ot M25.561 PAIN IN RIGHT KNEE 07/26/2017 TWYLA VALVERDE APRN Ot V00.811A FALL FROM MOVING WHEELCHAIR (POWERED), I 07/26/2017 TWYLA VALVERDE APRN Ot Y92.[address] IN ASSISTED PLACE 07/26/2017 TWYLA VALVERDE APRN Ot Z79.84 SLASHER HAND (CURRENT) USE OF ORAL HYPOGLYC 07/26/2017 TWYLA VALVERDE APRN Ot Z86.718 PERSONAL HISTORY OF OTHER VENOUS THROMBO 07/26/2017 Ot V76.12 OTH SCREEN MAMMO-MALIGN NEOPLASM OF VAN 07/26/2017 Ot 272.4 HYPERLIPIDEMIA NEC/NOS 07/26/2017 Ot V58.69 OTH MED,LT, CURRENT USE 07/26/2017 Ot 789.01 ABDOMINAL PAIN, RIGHT UPPER QUADRANT 07/26/2017 Ot 575.8 DIS OF GALLBLADDER NEC 07/26/2017 Ot 789.01 ABDOMINAL PAIN, RIGHT UPPER QUADRANT 07/26/2017 REBEL IVY WASHING TUB OPERATOR Ot 272.4 HYPERLIPIDEMIA NEC/NOS 07/26/2017 BAIMA, REBEL L WASHING TUB OPERATOR Ot 401.9 HYPERTENSION NOS 07/26/2017 BIJU REBEL L WASHING TUB OPERATOR Ot V58.69 OTH MED,LT,CURRENT USE 07/26/2017 ADEN LEE DO Ot 786.50 CHEST PAIN NOS 07/26/2017 ADEN LEE DO Ot V76.12 OTH SCREEN MAMMO-MALIGN NEOPLASM OF VAN 07/26/2017 ADEN LEE DO Ot 250.00 DIAB BHAVIK WO COMPL, TYPE II OR UNSPEC TY 07/26/2017 ADEN LEE DO Fani Ot 272.4 HYPERLIPIDEMIA NEC/NOS 07/26/2017 IOANA TARIQ DO Ot 721.0 CERVICAL SPONDYLOSIS 07/26/2017 BAIMA, REBEL L WASHING TUB OPERATOR Ot 397.0 TRICUSPID VALVE DISEASE 07/26/2017 BAIMA, REBEL L WASHING TUB OPERATOR Ot 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 NEC 07/26/2017 BAIMA, REBEL L WASHING TUB OPERATOR Ot 424.0 MITRAL VALVE DISORDER 07/26/2017 BAIMA REBEL L WASHING TUB OPERATOR Ot 272.4 HYPERLIPIDEMIA NEC/NOS 07/26/2017 LEANDROMA REBEL L WASHING TUB OPERATOR Ot V58.69 OTH MED,LT,CURRENT USE 07/26/2017 ADEN LEE DO Ot 786.50 CHEST PAIN NOS 07/26/2017 ADEN LEE DO Ot V15.88 HISTORY OF FALL 07/26/2017 LEANDROHOSEA REBEL L WASHING TUB OPERATOR Ot 272.4 HYPERLIPIDEMIA NEC/NOS 07/26/2017 ADEN LEE DO Ot 250.00 DIAB BHAVIK WO COMPL, TYPE II OR UNSPEC TY 07/26/2017 JESUS KATEADEN Ot 401.9 HYPERTENSION NOS 07/26/2017 ADEN LEE DO Ot V76.12 OTH SCREEN MAMMO-MALIGN NEOPLASM OF VAN 07/26/2017 BAIMA, REBEL L WASHING TUB OPERATOR Ot 250.00 DIAB BHAVIK WO COMPL, TYPE II OR UNSPEC TY 07/26/2017 BAIMA, REBEL L WASHING TUB OPERATOR Ot 272.4 HYPERLIPIDEMIA NEC/NOS 07/26/2017 BAIMA, REBEL L WASHING TUB OPERATOR Ot 401.9 HYPERTENSION NOS 07/26/2017 Ot 250.00 DIAB BHAVIK WO COMPL, TYPE II OR UNSPEC TY 07/26/2017 BAIMA, REBEL L WASHING TUB OPERATOR Ot 272.4 HYPERLIPIDEMIA NEC/NOS 07/26/2017 GELLENDER DO, ADEN Mohr Ot 250.00 DIAB BHAVIK WO COMPL, TYPE II OR UNSPEC TY 07/26/2017 GELLENDER DO, ADEN Mohr Ot 401.9 HYPERTENSION NOS 07/26/2017 GELLENDER DO, ADEN Mohr Ot 782.3 EDEMA 07/26/2017 GELLENDER DO, ADEN Mohr Ot Z12.31 ENCNTR SCREEN MAMMOGRAM FOR MALIGNANT NE 07/26/2017 CHANDNI DO, IOANA Mai Ot M16.12 UNILATERAL PRIMARY OSTEOARTHRITIS, LEFT 07/26/2017 CHANDNI DO, IOANA Mai Ot M47.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, LUMBAR REGION 07/26/2017 GELLENDER DO, ADEN Mohr Ot E11.9 TYPE 2 DIABETES MELLITUS WITHOUT COMPLIC 07/26/2017 GELLENDER DO, ADEN Mohr Ot I10 ESSENTIAL (PRIMARY) HYPERTENSION 07/26/2017 Ot E11.9 TYPE 2 DIABETES MELLITUS WITHOUT COMPLIC 07/26/2017 Ot E78.5 HYPERLIPIDEMIA, UNSPECIFIED 07/26/2017 GELLENDER DO, ADEN Mohr Ot E11.9 TYPE 2 DIABETES MELLITUS WITHOUT COMPLIC 07/26/2017 GELLENDER DO, ADEN Mohr Ot E78.5 HYPERLIPIDEMIA, UNSPECIFIED 07/26/2017 GELLENDER DO, ADEN Mohr Ot D69.6 THROMBOCYTOPENIA, UNSPECIFIED 07/26/2017 GELLENDER DO, ADEN Mohr Ot D72.819 DECREASED WHITE BLOOD CELL COUNT, UNSPEC 07/26/2017 GELLENDER DO, ADEN Mohr Ot Z12.31 ENCNTR SCREEN MAMMOGRAM FOR MALIGNANT NE 07/26/2017 GELLENDER DO, ADEN Mohr Ot E11.9 TYPE 2 DIABETES MELLITUS WITHOUT COMPLIC 07/26/2017 GELLENDER DO, ADEN Mohr Ot E78.5 HYPERLIPIDEMIA, UNSPECIFIED 07/26/2017 GELLENDER DO, ADEN Mohr Ot I10 ESSENTIAL (PRIMARY) HYPERTENSION 07/26/2017 GELLENDER DO, ADEN Mohr Ot E05.90 THYROTOXICOSIS, UNSP WITHOUT THYROTOXIC 07/26/2017 GELLENDER DO, ADEN Mohr Ot E11.9 TYPE 2 DIABETES MELLITUS WITHOUT COMPLIC 07/26/2017 GELLENDER DO, ADEN Mohr Ot I10 ESSENTIAL (PRIMARY) HYPERTENSION 07/26/2017 GELLENDER DO, ADEN Mohr Ot D69.6 THROMBOCYTOPENIA, UNSPECIFIED 08/26/2017 GELLENDER DO, ADEN Mohr Ot E11.9 TYPE 2 DIABETES MELLITUS WITHOUT COMPLIC 08/26/2017 GELLENDER DO, ADEN Mohr Ot E78.5 HYPERLIPIDEMIA, UNSPECIFIED 08/28/2017 GELLENDER DO, ADEN Mohr Ot E11.9 TYPE 2 DIABETES MELLITUS WITHOUT COMPLIC 08/28/2017 GELLENDER DO, ADEN Mohr Ot E78.5 HYPERLIPIDEMIA, UNSPECIFIED 08/28/2017 GELLENDER DO, ADEN Mohr Ot E11.9 TYPE 2 DIABETES MELLITUS WITHOUT COMPLIC 08/28/2017 NINILENDER , ADEN Mohr Ot E78.5 HYPERLIPIDEMIA, UNSPECIFIED 09/10/2017 Ot V76.12 OTH SCREEN MAMMO-MALIGN NEOPLASM OF VAN 09/10/2017 Ot 272.4 HYPERLIPIDEMIA NEC/NOS 09/10/2017 Ot V58.69 OTH MED,LT, CURRENT USE 09/10/2017 Ot 789.01 ABDOMINAL PAIN, RIGHT UPPER QUADRANT 09/10/2017 Ot 575.8 DIS OF GALLBLADDER NEC 09/10/2017 Ot 789.01 ABDOMINAL PAIN, RIGHT UPPER QUADRANT 09/10/2017 BAIMA, REBEL L WASHING TUB OPERATOR Ot 272.4 HYPERLIPIDEMIA NEC/NOS 09/10/2017 BAIMA, REBEL L WASHING TUB OPERATOR Ot 401.9 HYPERTENSION NOS 09/10/2017 BAIMA, REBEL L WASHING TUB OPERATOR Ot V58.69 OTH MED,LT,CURRENT USE 09/10/2017 ADEN LEE DO Ot 786.50 CHEST PAIN NOS 09/10/2017 ADEN LEE DO Ot V76.12 OTH SCREEN MAMMO-MALIGN NEOPLASM OF VAN 09/10/2017 ADEN LEE DO Ot 250.00 DIAB BHAVIK WO COMPL, TYPE II OR UNSPEC TY 09/10/2017 NINILENDER ADEN KATE Ot 272.4 HYPERLIPIDEMIA NEC/NOS 09/10/2017 CHANDNI DOIOANA Ot 721.0 CERVICAL SPONDYLOSIS 09/10/2017 BAIMA, REBEL L WASHING TUB OPERATOR Ot 397.0 TRICUSPID VALVE DISEASE 09/10/2017 BAIMA, REBEL L WASHING TUB OPERATOR Ot 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 NEC 09/10/2017 BAIMA, REBEL L WASHING TUB OPERATOR Ot 424.0 MITRAL VALVE DISORDER 09/10/2017 BAIMA, REBEL L WASHING TUB OPERATOR Ot 272.4 HYPERLIPIDEMIA NEC/NOS 09/10/2017 BAIMA, REBEL L WASHING TUB OPERATOR Ot V58.69 OTH MED,LT,CURRENT USE 09/10/2017 NINILENDER ADEN KATE Ot 786.50 CHEST PAIN NOS 09/10/2017 GELLENDER DO, ADEN Fani Ot V15.88 HISTORY OF FALL 09/10/2017 BAIREBEL JC L WASHING TUB OPERATOR Ot 272.4 HYPERLIPIDEMIA NEC/NOS 09/10/2017 GELLENDER DO, ADEN Fani Ot 250.00 DIAB BHAVIK WO COMPL, TYPE II OR UNSPEC TY 09/10/2017 GELLENDER DO, ADEN Mohr Ot 401.9 HYPERTENSION NOS 09/10/2017 GELLENDER DO, ADEN Mohr Ot V76.12 OTH SCREEN MAMMO-MALIGN NEOPLASM OF VAN 09/10/2017 BAIMA REBEL L WASHING TUB OPERATOR Ot 250.00 DIAB BHAVIK WO COMPL, TYPE II OR UNSPEC TY 09/10/2017 BAIMA, REBEL L WASHING TUB OPERATOR Ot 272.4 HYPERLIPIDEMIA NEC/NOS 09/10/2017 BAIMA, REBEL L WASHING TUB OPERATOR Ot 401.9 HYPERTENSION NOS 09/10/2017 Ot 250.00 DIAB BHAVIK WO COMPL, TYPE II OR UNSPEC TY 09/10/2017 BIJU REBEL L WASHING TUB OPERATOR Ot 272.4 HYPERLIPIDEMIA NEC/NOS 09/10/2017 GELLENDER DO, ADEN Fani Ot 250.00 DIAB BHAVIK WO COMPL, TYPE II OR UNSPEC TY 09/10/2017 GELLENDER DO, ADEN Mohr Ot 401.9 HYPERTENSION NOS 09/10/2017 GELLENDER DO, ADEN Mohr Ot 782.3 EDEMA 09/10/2017 GELLENDER DO, ADEN Mohr Ot Z12.31 ENCNTR SCREEN MAMMOGRAM FOR MALIGNANT NE 09/10/2017 CHANDNI DO, IOANA Mai Ot M16.12 UNILATERAL PRIMARY OSTEOARTHRITIS, LEFT 09/10/2017 CHANDNI DO, IOANA F Ot M47.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, LUMBAR REGION 09/10/2017 GELLENDER DO, ADEN Mohr Ot E11.9 TYPE 2 DIABETES MELLITUS WITHOUT COMPLIC 09/10/2017 GELLENDER DO, ADEN Mohr Ot I10 ESSENTIAL (PRIMARY) HYPERTENSION 09/10/2017 Ot E11.9 TYPE 2 DIABETES MELLITUS WITHOUT COMPLIC 09/10/2017 Ot E78.5 HYPERLIPIDEMIA, UNSPECIFIED 09/10/2017 GELLENDER DO, ADEN Mohr Ot E11.9 TYPE 2 DIABETES MELLITUS WITHOUT COMPLIC 09/10/2017 GELLENDER DO, ADEN Mohr Ot E78.5 HYPERLIPIDEMIA, UNSPECIFIED 09/10/2017 GELLENDER DO, ADEN Mohr Ot D69.6 THROMBOCYTOPENIA, UNSPECIFIED 09/10/2017 GELLENDER DO, ADEN Mohr Ot D72.819 DECREASED WHITE BLOOD CELL COUNT, UNSPEC 09/10/2017 GELLENDER DO, ADEN Mohr Ot Z12.31 ENCNTR SCREEN MAMMOGRAM FOR MALIGNANT NE 09/10/2017 GELLENDER DO, ADEN Mohr Ot E11.9 TYPE 2 DIABETES MELLITUS WITHOUT COMPLIC 09/10/2017 GELLENDER DO, ADEN Mohr Ot E78.5 HYPERLIPIDEMIA, UNSPECIFIED 09/10/2017 GELLENDER DO, ADEN Mohr Ot I10 ESSENTIAL (PRIMARY) HYPERTENSION 09/10/2017 GELLENDER DO, ADEN Mohr Ot E05.90 THYROTOXICOSIS, UNSP WITHOUT THYROTOXIC 09/10/2017 GELLENDER DO, ADEN Mohr Ot E11.9 TYPE 2 DIABETES MELLITUS WITHOUT COMPLIC 09/10/2017 GELLENDER DO, ADEN Mohr Ot I10 ESSENTIAL (PRIMARY) HYPERTENSION 09/10/2017 GELLENDER DO, ADEN Mohr Ot D69.6 THROMBOCYTOPENIA, UNSPECIFIED 09/10/2017 GELLENDER DO, ADEN Mohr Ot E11.9 TYPE 2 DIABETES MELLITUS WITHOUT COMPLIC 09/10/2017 GELLENDER DO, ADEN Mohr Ot E78.5 HYPERLIPIDEMIA, UNSPECIFIED Procedures There is no data. Results Test Result Range Automated blood complete blood count (hemogram) panel - 05/06/16 08:36 Blood leukocytes automated count (number/volume) 3.7 10*3/uL 4.3-11.0 Blood erythrocytes automated count (number/volume) 4.30 10*6/uL 4.35-5.85 Venous blood hemoglobin measurement (mass/volume) 12.2 [...] Automated blood platelet mean volume measurement 10.8 [foz_us] 7.4-10.4 Comprehensive metabolic panel - 05/06/16 08:36 Serum or plasma sodium measurement (moles/volume) 142 mmol/L 135-145 Serum or plasma potassium measurement (moles/volume) 3.9 mmol/L 3.6-5.0 Serum or plasma chloride measurement (moles/volume) 111 mmol/L 98-107 Carbon dioxide 19 mmol/L 21-32 Serum or plasma anion gap determination (moles/volume) 12 mmol/L 5-14 Serum or plasma urea nitrogen measurement (mass/volume) 12 mg/dL 7-18 Serum or plasma creatinine measurement (mass/volume) 0.63 mg/dL 0.60-1.30 Serum or plasma urea nitrogen/creatinine mass [...] Serum or plasma triglyceride measurement (mass/volume) 91 mg/dL <150 Serum or plasma cholesterol measurement (mass/volume) 150 mg/dL < 200 Serum or plasma cholesterol in HDL measurement (mass/volume) 44 mg/ dL 40-60 Cholesterol in LDL [mass/volume] in serum or plasma by direct assay 92 mg/dL 1-129 Serum or plasma cholesterol in VLDL measurement (mass/volume) 18 mg/ dL 5-40 Hemoglobin A1c - 05/06/16 08:36 Hemoglobin A1c 5.6 % 4.5-6.2 Automated blood complete blood count (hemogram) panel - 05/21/16 08:14 Blood leukocytes automated count (number/volume) 4.1 10*3/uL 4.3-11.0 Blood erythrocytes automated count (number/volume) 4.24 10*6/uL 4.35-5.85 Venous blood hemoglobin measurement (mass/volume) 11.9 [...] Automated blood platelet mean volume measurement 11.0 [foz_us] 7.4-10.4 Automated blood complete blood count (hemogram) panel - 08/28/16 08:40 Blood leukocytes automated count (number/volume) 4.6 10*3/uL 4.3-11.0 Blood erythrocytes automated count (number/volume) 4.17 10*6/uL 4.35-5.85 Venous blood hemoglobin measurement (mass/volume) 12.6 [...] Automated blood platelet mean volume measurement 10.6 [foz_us] 7.4-10.4 Comprehensive metabolic panel - 08/28/16 08:40 Serum or plasma sodium measurement (moles/volume) 142 mmol/L 135-145 Serum or plasma potassium measurement (moles/volume) 3.6 mmol/L 3.6-5.0 Serum or plasma chloride measurement (moles/volume) 109 mmol/L 98-107 Carbon dioxide 23 mmol/L 21-32 Serum or plasma anion gap determination (moles/volume) 10 mmol/L 5-14 Serum or plasma urea nitrogen measurement (mass/volume) 18 mg/dL 7-18 Serum or plasma creatinine measurement (mass/volume) 0.68 mg/dL 0.60-1.30 Serum or plasma urea nitrogen/creatinine mass [...] Serum or plasma triglyceride measurement (mass/volume) 93 mg/dL <150 Serum or plasma cholesterol measurement (mass/volume) 175 mg/dL < 200 Serum or plasma cholesterol in HDL measurement (mass/volume) 50 mg/ dL 40-60 Cholesterol in LDL [mass/volume] in serum or plasma by direct assay 108 mg/dL 1-129 Serum or plasma cholesterol in VLDL measurement (mass/volume) 19 mg/ dL 5-40 Hemoglobin A1c - 08/28/16 08:40 Hemoglobin A1c 6.3 % 4.5-6.2 Complete urinalysis with reflex to culture - 10/07/16 13:53 Urine color determination YELLOW NRG Urine clarity determination CLEAR NRG Urine pH measurement by test strip 6 5-9 Specific gravity of urine by test strip 1.015 1.016- 1.022 Urine protein assay by test strip, semi-quantitative NEGATIVE NEGATIVE Urine glucose detection by automated test strip NEGATIVE NEGATIVE Erythrocytes detection in urine sediment by light microscopy NEGATIVE NEGATIVE Urine ketones detection by automated test strip NEGATIVE NEGATIVE Urine nitrite detection by test strip NEGATIVE NEGATIVE Urine total bilirubin detection by test strip NEGATIVE NEGATIVE Urine urobilinogen measurement by automated test strip (mass/volume) 4 mg/dL NORMAL Urine leukocyte esterase detection by dipstick NEGATIVE NEGATIVE Automated urine sediment erythrocyte count by microscopy (number/high power field) NONE NRG Automated urine sediment leukocyte count by microscopy (number/high power field ) NONE NRG Bacteria detection in urine sediment by light microscopy NEGATIVE NRG Squamous epithelial cells detection in urine sediment by light microscopy 2-5 NRG Crystals detection in urine sediment by light microscopy NONE NRG Casts detection in urine sediment by light microscopy NONE NRG Mucus detection in urine sediment by light microscopy NEGATIVE NRG Complete urinalysis with reflex to culture NO NRG Complete blood count (CBC) with automated white blood cell (WBC) differential - 12/23/16 09:08 Blood leukocytes automated count (number/volume) 3.4 10*3/uL 4.3-11.0 Blood erythrocytes automated count (number/volume) 4.02 10*6/uL 4.35-5.85 Venous blood hemoglobin measurement (mass/volume) 11.7 g/dL 11.5-16.0 Blood hematocrit (volume fraction) 36 % 35-52 Automated erythrocyte mean corpuscular volume 89 [foz_us] 80-99 Automated erythrocyte mean corpuscular hemoglobin (mass per erythrocyte) 29 pg 25-34 Automated erythrocyte mean corpuscular hemoglobin concentration measurement ( mass/volume) 33 g/dL 32-36 Automated erythrocyte distribution width ratio 14.1 % 10.0-14.5 Automated blood platelet count (count/volume) 112 10*3/uL 130-400 Automated blood platelet mean volume measurement 10.4 [foz_us] 7.4-10.4 Automated blood neutrophils/100 leukocytes 62 % 42-75 Automated blood lymphocytes/100 leukocytes 26 % 12-44 Blood monocytes/100 leukocytes 6 % 0-12 Automated blood eosinophils/100 leukocytes 5 % 0-10 Automated blood basophils/100 leukocytes 1 % 0-10 Blood neutrophils automated count (number/volume) 2.1 10*3 1.8-7.8 Blood lymphocytes automated count (number/volume) 0.9 10*3 1.0-4.0 Blood monocytes automated count (number/volume) 0.2 10*3 0.0-1.0 Automated eosinophil count 0.2 10*3/uL 0.0-0.3 Automated blood basophil count (count/volume) 0.0 10*3/uL 0.0-0.1 Comprehensive metabolic panel - 12/23/16 09:08 Serum or plasma sodium measurement (moles/volume) 144 mmol/L 135-145 Serum or plasma potassium measurement (moles/volume) 3.7 mmol/L 3.6-5.0 Serum or plasma chloride measurement (moles/volume) 109 mmol/L 98-107 Carbon dioxide 26 mmol/L 21-32 Serum or plasma anion gap determination (moles/volume) 9 mmol/L 5-14 Serum or plasma urea nitrogen measurement (mass/volume) 20 mg/dL 7-18 Serum or plasma creatinine measurement (mass/volume) 0.70 mg/dL 0.60-1.30 Serum or plasma urea nitrogen/creatinine mass ratio 29 NRG Serum or plasma creatinine measurement with calculation of estimated glomerular filtration rate > NRG Serum or plasma glucose measurement (mass/volume) 127 mg/dL 70-105 Serum or plasma calcium measurement (mass/volume) 9.0 mg/dL 8.5-10.1 Serum or plasma total bilirubin measurement (mass/volume) 0.9 mg/dL 0.1-1.0 Serum or plasma alkaline phosphatase measurement (enzymatic activity/volume) 74 U/L 40-136 Serum or plasma aspartate aminotransferase measurement (enzymatic activity/ volume) 18 U/L 5-34 Serum or plasma alanine aminotransferase measurement (enzymatic activity/volume ) 12 U/L 0-55 Serum or plasma protein measurement (mass/volume) 6.2 g/dL 6.4-8.2 Serum or plasma albumin measurement (mass/volume) 3.3 g/dL 3.2-4.5 Lipid 1996 panel - 12/23/16 09:08 Serum or plasma triglyceride measurement (mass/volume) 99 mg/dL <150 Serum or plasma cholesterol measurement (mass/volume) 144 mg/dL < 200 Serum or plasma cholesterol in HDL measurement (mass/volume) 42 mg/ dL 40-60 Cholesterol in LDL [mass/volume] in serum or plasma by direct assay 83 mg/dL 1-129 Serum or plasma cholesterol in VLDL measurement (mass/volume) 20 mg/ dL 5-40 Hemoglobin A1c - 12/23/16 09:08 Hemoglobin A1c 6.2 % 4.5-6.2 Automated blood complete blood count (hemogram) panel - 01/19/17 08:29 Blood leukocytes automated count (number/volume) 3.8 10*3/uL 4.3-11.0 Blood erythrocytes automated count (number/volume) 4.08 10*6/uL 4.35-5.85 Venous blood hemoglobin measurement (mass/volume) 11.6 g/dL 11.5-16.0 Blood hematocrit (volume fraction) 37 % 35-52 Automated erythrocyte mean corpuscular volume 90 [foz_us] 80-99 Automated erythrocyte mean corpuscular hemoglobin (mass per erythrocyte) 28 pg 25-34 Automated erythrocyte mean corpuscular hemoglobin concentration measurement ( mass/volume) 32 g/dL 32-36 Automated erythrocyte distribution width ratio 14.6 % 10.0-14.5 Automated blood platelet count (count/volume) 113 10*3/uL 130-400 Automated blood platelet mean volume measurement 10.6 [foz_us] 7.4-10.4 Whole blood basic metabolic panel - 07/26/17 11:20 Serum or plasma sodium measurement (moles/volume) 142 mmol/L 135-145 Serum or plasma potassium measurement (moles/volume) 4.4 mmol/L 3.6-5.0 Serum or plasma chloride measurement (moles/volume) 110 mmol/L 98-107 Carbon dioxide 20 mmol/L 21-32 Serum or plasma anion gap determination (moles/volume) 12 mmol/L 5-14 Serum or plasma urea nitrogen measurement (mass/volume) 13 mg/dL 7-18 Serum or plasma creatinine measurement (mass/volume) 0.66 mg/dL 0.60-1.30 Serum or plasma urea nitrogen/creatinine mass ratio 20 NRG Serum or plasma creatinine measurement with calculation of estimated glomerular filtration rate > NRG Serum or plasma glucose measurement (mass/volume) 127 mg/dL 70-105 Serum or plasma calcium measurement (mass/volume) 9.2 mg/dL 8.5-10.1 Complete urinalysis with reflex to culture - 07/26/17 11:20 Urine color determination STRAW NRG Urine clarity determination CLEAR NRG Urine pH measurement by test strip 8 5-9 Specific gravity of urine by test strip 1.015 1.016- 1.022 Urine protein assay by test strip, semi-quantitative NEGATIVE NEGATIVE Urine glucose detection by automated test strip NEGATIVE NEGATIVE Erythrocytes detection in urine sediment by light microscopy 1+ NEGATIVE Urine ketones detection by automated test strip NEGATIVE NEGATIVE Urine nitrite detection by test strip NEGATIVE NEGATIVE Urine total bilirubin detection by test strip NEGATIVE NEGATIVE Urine urobilinogen measurement by automated test strip (mass/volume) NORMAL NORMAL Urine leukocyte esterase detection by dipstick NEGATIVE NEGATIVE Automated urine sediment erythrocyte count by microscopy (number/high power field) NONE NRG Automated urine sediment leukocyte count by microscopy (number/high power field ) NONE NRG Bacteria detection in urine sediment by light microscopy TRACE NRG Crystals detection in urine sediment by light microscopy NONE NRG Casts detection in urine sediment by light microscopy NONE NRG Mucus detection in urine sediment by light microscopy NEGATIVE NRG Complete urinalysis with reflex to culture NO NRG Complete blood count (CBC) with automated white blood cell (WBC) differential - 07/26/17 12:30 Blood leukocytes automated count (number/volume) 6.4 10*3/uL 4.3-11.0 Blood erythrocytes automated count (number/volume) 4.16 10*6/uL 4.35-5.85 Venous blood hemoglobin measurement (mass/volume) 12.2 g/dL 11.5-16.0 Blood hematocrit (volume fraction) 37 % 35-52 Automated erythrocyte mean corpuscular volume 88 [foz_us] 80-99 Automated erythrocyte mean corpuscular hemoglobin (mass per erythrocyte) 29 pg 25-34 Automated erythrocyte mean corpuscular hemoglobin concentration measurement ( mass/volume) 33 g/dL 32-36 Automated erythrocyte distribution width ratio 13.9 % 10.0-14.5 Automated blood platelet count (count/volume) 125 10*3/uL 130-400 Automated blood platelet mean volume measurement 10.6 [foz_us] 7.4-10.4 Automated blood neutrophils/100 leukocytes 78 % 42-75 Automated blood lymphocytes/100 leukocytes 11 % 12-44 Blood monocytes/100 leukocytes 9 % 0-12 Automated blood eosinophils/100 leukocytes 2 % 0-10 Automated blood basophils/100 leukocytes 0 % 0-10 Blood neutrophils automated count (number/volume) 5.0 10*3 1.8-7.8 Blood lymphocytes automated count (number/volume) 0.7 10*3 1.0-4.0 Blood monocytes automated count (number/volume) 0.6 10*3 0.0-1.0 Automated eosinophil count 0.1 10*3/uL 0.0-0.3 Automated blood basophil count (count/volume) 0.0 10*3/uL 0.0-0.1 Hemoglobin A1c - 07/26/17 12:30 Hemoglobin A1c 6.2 % 4.5-6.2 Comprehensive metabolic panel - 08/05/17 08:25 Serum or plasma sodium measurement (moles/volume) 142 mmol/L 135-145 Serum or plasma potassium measurement (moles/volume) 4.1 mmol/L 3.6-5.0 Serum or plasma chloride measurement (moles/volume) 109 mmol/L 98-107 Carbon dioxide 24 mmol/L 21-32 Serum or plasma anion gap determination (moles/volume) 9 mmol/L 5-14 Serum or plasma urea nitrogen measurement (mass/volume) 14 mg/dL 7-18 Serum or plasma creatinine measurement (mass/volume) 0.71 mg/dL 0.60-1.30 Serum or plasma urea nitrogen/creatinine mass ratio 20 NRG Serum or plasma creatinine measurement with calculation of estimated glomerular filtration rate > NRG Serum or plasma glucose measurement (mass/volume) 108 mg/dL 70-105 Serum or plasma calcium measurement (mass/volume) 9.0 mg/dL 8.5-10.1 Serum or plasma total bilirubin measurement (mass/volume) 0.9 mg/dL 0.1-1.0 Serum or plasma alkaline phosphatase measurement (enzymatic activity/volume) 82 U/L 40-136 Serum or plasma aspartate aminotransferase measurement (enzymatic activity/ volume) 17 U/L 5-34 Serum or plasma alanine aminotransferase measurement (enzymatic activity/volume ) 13 U/L 0-55 Serum or plasma protein measurement (mass/volume) 6.7 g/dL 6.4-8.2 Serum or plasma albumin measurement (mass/volume) 3.3 g/dL 3.2-4.5 Lipid 1996 panel - 08/05/17 08:25 Serum or plasma triglyceride measurement (mass/volume) 65 mg/dL <150 Serum or plasma cholesterol measurement (mass/volume) 161 mg/dL < 200 Serum or plasma cholesterol in HDL measurement (mass/volume) 52 mg/ dL 40-60 Cholesterol in LDL [mass/volume] in serum or plasma by direct assay 97 mg/dL 1-129 Serum or plasma cholesterol in VLDL measurement (mass/volume) 13 mg/ dL 5-40 Hemoglobin A1c - 08/05/17 08:25 Hemoglobin A1c 5.8 % 4.5-6.2 Encounters ACCT No. Visit Date/Time Discharge Status Pt. Type Provider Facility Loc./Unit Complaint [id number] 10/08/2017 09:15:00 10/08/2017 23:59:59 [id number] 08/05/2017 08:01:00 08/05/2017 23:59:59 CLS Outpatient ADEN LEE DO [facility] LAB DIABETES, HYPERLIPIDEMIA [id number] 07/26/2017 09:53:00 07/26/2017 13:00:00 DIS Emergency TWYLA VALVERDE APRN [facility] ER FALL [id number] 01/22/2017 10:30:00 01/22/2017 12:00:00 DIS Outpatient CHANDNI IOANA KATE [facility] REHAB LOW BACK PAIN AND LUMBAR SPONDYLOSIS [id number] 01/19/2017 08:14:00 01/19/2017 23:59:59 CLS Outpatient NINIAYANSANDHUADEN [facility] LAB THROMBOCYCLOPE [id number] 12/23/2016 08:44:00 12/23/2016 23:59:59 CLS Outpatient NINIJORGE L KATEADEN [facility] LAB HTN [id number] 10/07/2016 13:11:00 10/07/2016 14:45:00 DIS Emergency PROSPER FOWLER, AMADOR T [facility] ER KNEE PAIN [id number] 08/28/2016 08:29:00 08/28/2016 23:59:59 CLS Outpatient JESUS KATE ADEN Fani [facility] LAB DIABETIS, HYPERTENSION [id number] 06/30/2016 09:17:00 06/30/2016 23:59:59 CLS Outpatient NINIJORGE L KATE ADEN Mohr [facility] RAD SCREENING [id number] 06/12/2016 08:15:00 06/12/2016 11:53:00 DIS Outpatient CHANDNI IOANA KATE [facility] REHAB S/P REVERSE LEFT TSA [id number] 05/29/2016 10:20:00 05/30/2016 17:00:00 DIS Outpatient CHANDNI IOANA KATE [facility] REHAB S/P REVERSE LEFT TSA [id number] 05/21/2016 08:02:00 05/21/2016 23:59:59 CLS Outpatient ADEN LEE DO [facility] LAB LEUKOPENIA, THROMBOCYTOPENIA [id number] 05/06/2016 08:17:00 05/06/2016 23:59:59 CLS Outpatient ADEN LEE DO [facility] LAB DIABETES, HYPERLIPIDEMIA [id number] 07/09/2015 08:33:00 07/09/2015 23:59:59 CLS Outpatient ADEN LEE DO [facility] LAB DIABTS, [id number] 07/04/2015 09:09:00 07/04/2015 23:59:59 CLS Outpatient IOANA TARIQ DO [facility] RAD LUMBAR SPONDYLOSIS, DJD LEFT HIP [id number] 06/27/2015 08:43:00 06/27/2015 23:59:59 CLS Outpatient ADEN LEE DO [facility] RAD SCREENING [id number] 03/06/2015 07:08:00 03/06/2015 07:20:00 DIS Emergency AJITH FOWLER, LATASHA Hummel [facility] ER STAPLE REMOVAL [id number] 02/27/2015 10:38:00 02/27/2015 12:13:00 DIS Emergency REANNA FOWLER, BRUCE Rao [facility] ER FALL;L LEG PAIN [id number] 02/19/2015 08:28:00 02/19/2015 23:59:59 CLS Outpatient ADEN LEE DO [facility] LAB DIABETES,PERIPHERAL ADEMIA [id number] 02/19/2015 08:20:00 02/19/2015 23:59:59 CLS Outpatient REBEL IVY [facility] LAB HYPERLIPIDEMIA [id number] 08/22/2014 10:30:00 08/22/2014 23:59:59 CLS Outpatient REBEL IVY [facility] LAB HLP,DM,HTN [id number] 06/26/2014 10:05:00 06/26/2014 23:59:59 CLS Outpatient ADEN LEE DO [facility] RAD SCREENING [id number] 04/05/2014 09:08:00 04/05/2014 23:59:59 CLS Outpatient GELLENDER DO, ADEN A [facility] LAB DIABETES [id number] 02/21/2014 08:25:00 02/21/2014 23:59:59 CLS Outpatient REBEL IVY [facility] LAB OTHER UNSPECIFIED HYPERLIPIDEMIA [id number] 01/27/2014 10:30:00 01/27/2014 23:59:59 CLS Outpatient ADEN LEE DO [facility] RAD FELL LAST THURSDAY, PAIN IN R RIBS [id number] 08/18/2013 11:05:00 08/18/2013 23:59:59 CLS Outpatient REBEL IVY [facility] LAB HLP [id number] 08/12/2013 12:58:00 08/18/2013 14:04:00 DIS Outpatient IOANA TARIQ DO [facility] REHAB CERVICAL SPONDYLOSIS [id number] 08/16/2013 12:34:00 08/16/2013 23:59:59 CLS Outpatient REBEL IVY [facility] CARD HTN [id number] 08/13/2013 18:38:00 08/13/2013 23:46:00 DIS Emergency PROSPER FOWLER, AMADOR Rosario [facility] ER CP [id number] 07/25/2013 09:12:00 07/25/2013 23:59:59 CLS Outpatient IOANA TARIQ DO [facility] RAD CERVICAL SPONDYLOSIS [id number] 06/29/2013 07:43:00 06/29/2013 23:59:59 CLS Outpatient ADEN LEE DO [facility] LAB DM,HLP [id number] 06/24/2013 08:48:00 06/24/2013 23:59:59 CLS Outpatient ADEN LEE DO [facility] RAD SCREENING [id number] 05/31/2013 08:35:00 06/22/2013 14:00:00 DIS Outpatient IOANA TARIQ DO [facility] REHAB DJD R SHOULDER CERVICAL SPONDYLOSIS [id number] 04/27/2013 10:00:00 05/06/2013 10:28:00 DIS Outpatient IOANA TARIQ DO [facility] REHAB CERVICAL SPONDYLOSIS, RT SIDED RADICULOPATHY [id number] 02/28/2013 11:21:00 02/28/2013 23:59:59 CLS Outpatient ADEN LEE DO [facility] RAD RIGHT RIB PAIN [id number] 02/01/2013 07:52:00 02/01/2013 23:59:59 CLS Outpatient REBEL IVYP [facility] LAB HTN,HLP,STATIN [place] [id number] 12/03/2015 08:11:00 Document Registration [id number] 07/04/2015 09:08:00 Document Registration [id number] 10/25/2014 08:56:00 Document Registration [id number] 10/06/2012 09:30:00 Document Registration [id number] 09/30/2012 08:04:00 Document Registration [id number] 08/12/2012 08:40:00 Document Registration [id number] 06/21/2012 10:00:00 Document Registration [id number] 01/09/2012 14:12:00 Document Registration [id number] 01/06/2012 11:23:00 Document Registration [id number] 12/25/2011 11:32:00 Document Registration [id number] 12/04/2011 08:05:00 Document Registration [id number] 11/26/2011 07:55:00 Document Registration [id number] 06/19/2011 07:48:00 Document Registration [id number] 06/05/2011 10:04:00 Document Registration [id number] 05/06/2011 07:00:00 Document Registration [id number] 03/19/2011 16:56:00 Document Registration [id number] 09/04/2010 07:56:00 Document Registration [id number] 04/22/2010 08:15:00 Document Registration [id number] 04/17/2010 08:06:00 Document Registration [id number] 04/02/2010 12:05:00 Document Registration [id number] 04/01/2010 13:49:00 Document Registration [id number] 03/27/2010 09:38:00 Document Registration [id number] 03/08/2010 11:02:00 Document Registration [id number] 02/28/2010 07:44:00 Document Registration
--- NOTE | 2017-10-18 17:26 | ED General ---
General Chief Complaint: Trauma-Non Activation Stated Complaint: FALL Nursing Triage Note: TO ED PER EMS WAS BENDING OVER TO PICK SOMETHING UP OFF FLOOR AND FELL BACK. C/ O PAIN IN NECK. C COLLAR APPLIED BY EMS. C/O LOW BACK AND R&L ANKLE PAIN. Nursing Sepsis Screen: No Definite Risk History of Present Illness Date Seen by Provider: Oct 18, 2017 Time Seen by Provider: 16:30 Initial Comments 77-year-old female, morbidly obese, reports she was bending down to put towels away in a cabinet when she lost her balance causing her to fall backwards and hit her head. She was evaluated by EMS and brought in for neck and head pain. C-collar is in place. She denies any loss of consciousness, and reports no neck pain presently. She does complain of bilateral ankle pain but this is chronic in nature. She also has complaints of low-back pain. She denies any paresthesias or radicular symptoms in the upper or lower extremities. Timing/Duration: 1 Hour Severity: Mild Associated Systoms: Denies Symptoms, No Headaches, No Nausea/Vomiting, No Seizure, No Syncope, No Weakness Allergies and Home Medications Allergies Coded Allergies: Penicillins (Unverified Allergy, Unknown, 12/21/06) codeine (Unverified Allergy, Unknown, 12/21/06) aspirin (Verified Adverse Reaction, Unknown, NAUSEA, 10/07/16) Home Medications Fish Oil/Dha/Epa 1 Each Capsule, 1,200 EACH PO BID, (Reported) Hctz/Telmisartan 1 Each Tablet, 80 MG PO DAILY, (Reported) Metformin Hcl 500 Mg Tablet, 500 MG PO BID, (Reported) Naproxen Sodium 220 Mg Capsule, 220 MG PO DAILY, (Reported) Omeprazole 40 Mg Capsule.dr, 40 MG PO DAILY, #30 Prescribed by: AMADOR ALVA on 08/13/13 5585 Simvastatin 20 Mg Tab, 20 MG PO HS, (Reported) Vitamin C/Vitamin E 1 Tab Tab, 1 TAB PO DAILY, (Reported) [Chydro/Apap] , (Reported) Constitutional: no symptoms reported, see HPI Musculoskeletal: see HPI, back pain, neck pain, other (bilateral ankle pain, chronic) All Other Systems Reviewed Negative Unless Noted: Yes Past Ahanrtg-Noycpf-Nlxrdy Hx Patient Social History Alcohol Use: Denies Use Recreational Drug Use: No Smoking Status: Never a Smoker Recent Foreign Travel: No Contact w/Someone Who Travel: No Recent Infectious Disease Expo: No Recent Hopitalizations: Yes Immunizations Up To Date Tetanus Booster (TDap): More than 5yrs Date of Pneumonia Vaccine: Aug 07, 2016 Date of Influenza Vaccine: Jun 09, 2016 Seasonal Allergies Seasonal Allergies: No Surgeries History of Surgeries: Yes (BILAT TKR, TIEN FILTER, LEFT SHOULDER SURGERY , BONE SPUR LEFT HEEL) Surgeries: Joint Replacement, Orthopedic Respiratory History of Respiratory Disorde: No Cardiovascular History of Cardiac Disorders: Yes Cardiac Disorders: Deep Vein Thrombosis, High Cholesterol, Hypertension Neurological History of Neurological Disord: No Reproductive System Hx Reproductive Disorders: No Gastrointestinal History of Gastrointestinal Di: Yes Gastrointestinal Disorders: Gastroesophageal Reflux Musculoskeletal History of Musculoskeletal Dis: Yes (BONE SPUR REMOVAL LEFT FOOT) Musculoskeletal Disorders: Arthritis Endocrine History of Endocrine Disorders: Yes (DM TYPE II) Endocrine Disorders: Diabetes, Non-Insulin dep Cancer History of Cancer: No Psychosocial History of Psychiatric Problem: No Integumentary History of Skin or Integumenta: No Blood Transfusions History of Blood Disorders: Yes (BLOOD CLOT LEG TO LUNG 2000) Reviewed Nursing Assessment Reviewed/Agree w Nursing PMH: Yes Family Medical History Significant Family History: No Pertinent Family Hx Physical Exam Vital Signs Vital Signs - First Documented 10/18/17 10/18/17 16:08 18:43 Temp 97.8 Pulse 84 Resp 20 B/P (MAP) 191/132 (151) Pulse Ox 99 O2 Delivery Room Air Capillary Refill : Less Than 3 Seconds General Appearance: No Apparent Distress, WD/WN Eyes: Bilateral Eye Normal Inspection, Bilateral Eye PERRL, Bilateral Eye EOMI HEENT: PERRL/EOMI, TMs Normal, Normal ENT Inspection, Pharynx Normal Neck: Full Range of Motion, Normal Inspection, Non Tender, Tender Lateral Respiratory: Chest Non Tender, Lungs Clear, Normal Breath Sounds Cardiovascular: Regular Rate, Rhythm, No Murmur, Normal Peripheral Pulses Gastrointestinal: Normal Bowel Sounds, No Organomegaly Extremity: Pedal Edema (marked), Slow Capillary Refill, Swelling Neurologic/Psychiatric: Alert, Oriented x3, No Motor/Sensory Deficits, Normal Mood/Affect Progress/Results/Core Measures Suspected Sepsis Recent Fever Within 48 Hours: No Infection Criteria Present: Suspected New Infection New/Unexplained Altered Menta: No Sepsis Screen: No Definite Risk Sepsis Diagnosis: SIRS Temperature:97.8 Pulse: 84 Respiratory Rate: Blood Pressure 191 /132 Mean: 151 Results/Orders My Orders Orders - ERIN EISENBERG Ct Head/Cervical Spine Wo (10/18/17 16:27) Lumbar Spine - 2-3 Views (10/18/17 16:27) Ankle, Bilateral, 3 Views (10/18/17 16:27) Vital Signs/I&O Vital Sign - Last 12Hours 10/18/17 10/18/17 10/18/17 16:08 18:43 18:50 Temp 97.8 97.6 Pulse 84 83 74 Resp 20 18 B/P (MAP) 191/132 (151) 184/85 (118) 184/88 Pulse Ox 99 99 95 O2 Delivery Room Air Capillary Refill : Less Than 3 Seconds Blood Pressure Mean: 151 Progress Note : Time: 16:30 Progress Note Initial evaluation completed, recommended CT head and neck, x-rays of the lumbar spine and bilateral ankles. 1750 CT head and neck clear, C-collar removed. No tenderness laterally or midline to the cervical spine. Gentle range of motion cervical spine reproduces no symptoms of paresthesias or radiculopathy in the upper extremities. Diagnostic Imaging Diagonstic Imaging: Xray Plain Films/CT/US/NM/MRI: other (Lspine) Comments NAME: KATHARINE PEREZ [facility] REC#: [id number] PT STATUS: REG ER : 1940 PHYSICIAN: ERIN EISENBERG ADMIT DATE: 10/18/17/ER Draft Date of Exam:10/18/17 LUMBAR SPINE - 2-3 VIEWS INDICATION: Low back pain with fall. TECHNIQUE: AP, lateral and spot imaging of the lumbar spine. CORRELATION STUDY: None. FINDINGS: Overall this is a fairly limited examination that appears perhaps largely technical. Given this, the alignment demonstrates some loss of the normal lordotic curvature. Ramsey offset or spondylolisthesis does not appear to be present. No definite evidence for acute compression deformity. Multilevel degenerative disc changes with loss of disc space height. Endplate osteophyte formation is present. IVC filter is present. IMPRESSION: Limited imaging of the lumbar spine demonstrates no definite evidence for acute compression deformity. Dictated on workstation # [id number] Dict: 10/18/17 1732 Trans: 10/18/17 1811 [facility] [id number] Interpreted by: BENITO KELLY DO Electronically signed by: Reviewed: Reviewed by Ks Diagonstic Imaging: CT Plain Films/CT/US/NM/MRI: c-spine, head Comments NAME: KATHARINE PEREZ [facility] REC#: [id number] PT STATUS: REG ER : 1940 PHYSICIAN: ERIN EISENBERG ADMIT DATE: 10/18/17/ER Draft Date of Exam:10/18/17 CT HEAD/CERVICAL SPINE WO PROCEDURE: CT head and CT cervical spine without contrast. TECHNIQUE: Multiple contiguous axial images were obtained through the brain and cervical spine without the use of intravenous contrast. Sagittal and coronal reformations through the cervical spine were then performed. INDICATION: Fall with pain in neck. CORRELATION STUDY: CT head 07/26/2017. FINDINGS: CT HEAD: Generalized atrophic changes with prominence of the ventricles and sulci. There is rather extensive streak artifact, predominantly owing to dental sikhism over the posterior fossa and skull base. Given the limitations, no definitive evidence for intracranial hemorrhage or abnormal extra-axial fluid collections. No midline shift or mass effect. Rather prominent scattered areas of decreased attenuation, while nonspecific, favor likely changes of small vessel ischemic disease. Visualized bony calvarium intact. CT CERVICAL SPINE: Cervical spinal alignment is relatively anatomic. There is no acute fracture or traumatic subluxation. Moderate asymmetric disc space narrowing at the C5-C6, C6-C7 and C7-T1 levels. Mild endplate osteophyte formation without significant stenosis of the foramina and/or canal. Posterior elements intact and normal alignment. Odontoid is intact. There is moderate carotid bifurcation calcification. IMPRESSION: CT HEAD: Negative for acute traumatic intracranial abnormality. CT CERVICAL SPINE: Negative for acute fracture or traumatic subluxation. Advanced multilevel cervical spondylosis is present. Dictated on workstation # [id number] Dict: 10/18/17 1717 Trans: 10/18/17 1734 [facility] [id number] Interpreted by: BENITO KELLY DO Electronically signed by: Reviewed: Reviewed by Ks Diagonstic Imaging: Xray Plain Films/CT/US/NM/MRI: ankle Comments NAME: KATHARINE PEREZ [facility] REC#: [id number] PT STATUS: REG ER : 1940 PHYSICIAN: ERIN EISENBERG ADMIT DATE: 10/18/17/ER Draft Date of Exam:10/18/17 ANKLE, BILATERAL, 3 VIEWS INDICATION: Bilateral ankle pain post fall. TECHNIQUE: Three views of bilateral ankles, 5:22 p.m. CORRELATION STUDY: None. FINDINGS: Marked soft tissue swelling is noted of both ankles. There is an abnormal appearance of both ankles appearing to be likely largely chronic and degenerative in nature. Prior traumatic changes are not excluded. There is marked osteophytes noted about the distal tibia, fibula and talus. Slight narrowing of the ankle mortise is present, diffusely. Somewhat of a pes planus alignment is also suggested, bilaterally. Prominent ossification at the plantar fascial insertion site and Achilles tendon insertion site is noted. Slight asymmetric collapse of the right calcaneus appears generally stable from previous imaging. IMPRESSION: Markedly abnormal appearance about the bilateral ankles with what appears to be likely prior traumatic and/or chronic degenerative type changes. No acute bony abnormality. There is, however, generalized edema noted, bilaterally. Dictated on workstation # [id number] Dict: 10/18/17 1733 Trans: 10/18/17 1821 [facility] [id number] Interpreted by: BENITO KELLY DO Electronically signed by: Reviewed: Reviewed/Discussed Departure Impression Impression: Primary Impression: Fall Qualified Codes: W19.XXXA - Unspecified fall, initial encounter Additional Impression: Head injury Qualified Codes: S09.90XA - Unspecified injury of head, initial encounter Disposition: 01 HOME, SELF-CARE Condition: Stable Departure-Patient Inst. Decision time for Depature: 18:20 Referrals: ADEN LEE DO (PCP) Primary Care Physician Patient Instructions: Preventing Falls Add. Discharge Instructions: Continue to use Aleve as needed. Alternate heat and ice to neck and back as needed for pain. Follow up with Dr. Lee if symptoms are not improving in the next day or 2. Change positions from sitting, to standing or bending over slowly. Return to emergency department if symptoms worsen. All discharge instructions reviewed with patient and/or family. Voiced understanding. Copy Copies To 1: ADEN LEE AMY ARNP Oct 18, 2017 17:26
--- NOTE | 2017-10-18 17:34 | Diagnostic Imaging Report ---
PROCEDURE: CT head and CT cervical spine without contrast. TECHNIQUE: Multiple contiguous axial images were obtained through the brain and cervical spine without the use of intravenous contrast. Sagittal and coronal reformations through the cervical spine were then performed. INDICATION: Fall with pain in neck. CORRELATION STUDY: CT head 07/26/2017. FINDINGS: CT HEAD: Generalized atrophic changes with prominence of the ventricles and sulci. There is rather extensive streak artifact, predominantly owing to dental jew over the posterior fossa and skull base. Given the limitations, no definitive evidence for intracranial hemorrhage or abnormal extra-axial fluid collections. No midline shift or mass effect. Rather prominent scattered areas of decreased attenuation, while nonspecific, favor likely changes of small vessel ischemic disease. Visualized bony calvarium intact. CT CERVICAL SPINE: Cervical spinal alignment is relatively anatomic. There is no acute fracture or traumatic subluxation. Moderate asymmetric disc space narrowing at the C5-C6, C6-C7 and C7-T1 levels. Mild endplate osteophyte formation without significant stenosis of the foramina and/or canal. Posterior elements intact and normal alignment. Odontoid is intact. There is moderate carotid bifurcation calcification. IMPRESSION: CT HEAD: Negative for acute traumatic intracranial abnormality. CT CERVICAL SPINE: Negative for acute fracture or traumatic subluxation. Advanced multilevel cervical spondylosis is present. Dictated by: Dictated on workstation # [id number]
--- NOTE | 2017-10-18 18:11 | Diagnostic Imaging Report ---
INDICATION: Low back pain with fall. TECHNIQUE: AP, lateral and spot imaging of the lumbar spine. CORRELATION STUDY: None. FINDINGS: Overall this is a fairly limited examination that appears perhaps largely technical. Given this, the alignment demonstrates some loss of the normal lordotic curvature. Ramsey offset or spondylolisthesis does not appear to be present. No definite evidence for acute compression deformity. Multilevel degenerative disc changes with loss of disc space height. Endplate osteophyte formation is present. IVC filter is present. IMPRESSION: Limited imaging of the lumbar spine demonstrates no definite evidence for acute compression deformity. Dictated by: Dictated on workstation # [id number]
--- NOTE | 2017-10-18 18:21 | Diagnostic Imaging Report ---
INDICATION: Bilateral ankle pain post fall. TECHNIQUE: Three views of bilateral ankles, 5:22 p.m. CORRELATION STUDY: None. FINDINGS: Marked soft tissue swelling is noted of both ankles. There is an abnormal appearance of both ankles appearing to be likely largely chronic and degenerative in nature. Prior traumatic changes are not excluded. There is marked osteophytes noted about the distal tibia, fibula and talus. Slight narrowing of the ankle mortise is present, diffusely. Somewhat of a pes planus alignment is also suggested, bilaterally. Prominent ossification at the plantar fascial insertion site and Achilles tendon insertion site is noted. Slight asymmetric collapse of the right calcaneus appears generally stable from previous imaging. IMPRESSION: Markedly abnormal appearance about the bilateral ankles with what appears to be likely prior traumatic and/or chronic degenerative type changes. No acute bony abnormality. There is, however, generalized edema noted, bilaterally. Dictated by: Dictated on workstation # [id number]
[2017-10-18 18:43] VITALS: BP 184/85
[2017-10-18 18:50] VITALS: BP 184/88
== END 2017-10-18 19:02 | disposition home or self-care (01) ==
LOC: EDUNIT# 16:05 → ER 16:07
DX: S09.90XA Unspecified injury of head, initial encounter (principal); E11.9 Type 2 diabetes mellitus without complications; K21.9 Gastro-esophageal reflux disease without esophagitis; E66.01 Morbid (severe) obesity due to excess calories; E78.00 Pure hypercholesterolemia, unspecified; I10 Essential (primary) hypertension; Z86.718 Personal history of other venous thrombosis and embolism; Z96.653 Presence of artificial knee joint, bilateral; Z79.84 Long term (current) use of oral hypoglycemic drugs; Z68.41 Body mass index [BMI] 40.0-44.9, adult; Z88.0 Allergy status to penicillin; Z88.5 Allergy status to narcotic agent; Z88.6 Allergy status to analgesic agent; W01.10XA Fall on same level from slipping, tripping and stumbling with subsequent striking against unspecified object, initial encounter
CPT/HCPCS: 70450; 72100; 72125; 99283

== ENCOUNTER 2018-03-08 13:52 | Inpatient (IN) | payer MEDICARE, OTHER, MEDICAID ==
[~2018-03-08] VITALS: Ht 157.5 cm; Wt 124.7 kg
--- NOTE | 2018-03-08 14:20 | ED Neurological Problem ---
General Stated Complaint: CONFUSED Source: patient, EMS, intermediate records Exam Limitations: clinical condition History of Present Illness Date Seen by Provider: Mar 08, 2018 Time Seen by Provider: 13:49 Initial Comments Patient presents to ER by EMS from her assisted living home where she lives. Staff said she was acting confused having difficulty with walking. EMS says with one staff says she got up and walked to their gurney and got on. Patient is not having any pain or shortness of breath or fevers chills nausea or vomiting. She does not have a history of stroke. She is on blood thinners nor she had any recent surgeries or periods of immobilization. She had a urinalysis for some confusion back on February 24 it was clean. Patient denies any dysuria but she does have chronic baseline incontinence of bowel and bladder and wears a brief. EMS reports blood pressure 190 systolic and a blood sugar of 184. Allergies and Home Medications Allergies Coded Allergies: Penicillins (Unverified Allergy, Unknown, 12/21/06) codeine (Unverified Allergy, Unknown, 12/21/06) aspirin (Verified Adverse Reaction, Unknown, NAUSEA, 10/07/16) Home Medications Fish Oil/Dha/Epa 1 Each Capsule, 1,200 EACH PO BID, (Reported) Hctz/Telmisartan 1 Each Tablet, 80 MG PO DAILY, (Reported) Metformin Hcl 500 Mg Tablet, 500 MG PO BID, (Reported) Naproxen Sodium 220 Mg Capsule, 220 MG PO DAILY, (Reported) Omeprazole 40 Mg Capsule.dr, 40 MG PO DAILY Prescribed by: AMADOR ALVA on 08/13/13 2376 Simvastatin 20 Mg Tab, 20 MG PO HS, (Reported) Vitamin C/Vitamin E 1 Tab Tab, 1 TAB PO DAILY, (Reported) Patient Home Medication List Home Medication List Reviewed: Yes Review of Systems Constitutional: No chills, No diaphoresis Eyes: Denies Blindness, Denies Blurred Vision, Denies Drainage Ears, Nose, Mouth, Throat: denies ear pain, denies nose pain Respiratory: No cough, No short of breath Cardiovascular: No chest pain, No Hx of Intervention, No palpitations Gastrointestinal: No abdominal pain, No constipation, No diarrhea, No nausea Genitourinary: No discharge, No dysuria : No Musculoskeletal: No back pain, No joint pain Skin: No pruritus, No rash Psychiatric/Neurological: Cognitive Dysfunction; Denies Headache, Denies Tonic Clonic Seizures; Weakness Past Kjsxwmz-Vtxmvn-Yvlfea Hx Patient Social History Alcohol Use: Denies Use Recreational Drug Use: No Smoking Status: Never a Smoker Recent Hopitalizations: Yes Immunizations Up To Date Tetanus Booster (TDap): More than 5yrs Date of Pneumonia Vaccine: Aug 07, 2016 Date of Influenza Vaccine: Jun 09, 2016 Seasonal Allergies Seasonal Allergies: No Past Medical History Surgeries: Yes (BILAT TKR, TIEN FILTER, LEFT SHOULDER SURGERY, BONE SPUR LEFT HEEL) Joint Replacement, Orthopedic Respiratory: No Cardiac: Yes Deep Vein Thrombosis, High Cholesterol, Hypertension Neurological: No Reproductive Disorders: No Gastrointestinal: Yes Gastroesophageal Reflux Musculoskeletal: Yes (BONE SPUR REMOVAL LEFT FOOT) Arthritis Endocrine: Yes (DM TYPE II) Diabetes, Non-Insulin dep Cancer: No Psychosocial: No Integumentary: No Blood Disorders: Yes (BLOOD CLOT LEG TO LUNG 2000) Family Medical History No Pertinent Family Hx Physical Exam Vital Signs Vital Signs - First Documented 03/08/18 13:52 Temp 98.0 Pulse 81 Resp 16 B/P (MAP) 190/87 (121) Pulse Ox 100 O2 Delivery Room Air Capillary Refill : Height, Weight, BMI Height: 5', 10.00" Weight: 300lbs 2.0oz, [id number] Method:Estimated ,46.68BMI General Appearance: no apparent distress, obese HEENT: PERRL/EOMI, TMs normal, pharynx normal Neck: non-tender, full range of motion, supple, normal inspection Respiratory: chest non-tender, lungs clear, normal breath sounds, no respiratory distress, no accessory muscle use Cardiovascular: normal peripheral pulses, regular rate, rhythm, other ( bilateral lower extremity stasis edema) Peripheral Pulses: 1+ Radial Pulses (R), 1+ Radial Pulses (L) Gastrointestinal: normal bowel sounds, non tender, soft (Corpulent) Extremities: normal range of motion, non-tender, normal capillary refill, pedal edema Neurologic/Psychiatric: robotics technologist II-XII nml as tested, no motor/sensory deficits, alert, normal mood/affect, other Crainal Nerves: normal hearing, normal speech, PERRL Coordination/Gait: normal finger to nose, other (walks but has trouble with transitioning from gurney to bed secondary to generalized weakness. No lateral weakness.) Motor/Sensory: no motor deficit (bilateral lower extremities 4 out of 5 motor strength upper extremities are 5 out of 5.), no sensory deficit, no pronator drift Skin: other (erythematous yeast malodorous [place] under the pannus) Stroke Onset of Symptoms Date of Onset of Symptoms: Mar 08, 2018 Time of Symptom Onset: 12:30 Onset of Symptoms: Yes NIH Stroke Scale Assessment Select: Initial Level of Consciousness: 0=Alert (0), Level of Consciousness- Questions: 0=Answers both month/age (0), LOC Commands: 0=Performs both tasks (0) , Gaze: Normal (0), Visual [place]: 0=No visual loss (0), Facial Movement ( Facial Paresis): 0=Normal symmetrical mnt (0), Motor Function-Arms Right: 0=No drift (0), Motor Function-Arms Left: 0=No drift (0), Motor Function-Legs Right: 0=No drift (0), Motor Function-Legs Left: 0=No drift (0), Limb Ataxia: 0=Absent (0), Sensory: 0=Normal:no loss (0), Best Language: 0=No aphasia (0), Dysarthria : 0=Normal (0), Extinction & Inattention: 0=No abnormality (0), Total: 0 Stroke Thrombolytic Exclusion Age 18 or Over: Yes Acute intenal hemorrhage: No History of CVA: No Uncontrolled Coagulation Defec: No Intracranial Hemorrhage: No Severe Hypertension: No (198/87) GI or Bleed: No Subarachnoid Hemorrhage: No Intracranial Neoplasm/Aneurysm: No Oral Anticoagulants: No Surgery or Trauma: No Puncture of Non-Compressible V: No Recent CPR: No Diabetic Hemorrhagic Retinopat: No Organ Biopsy: No Recent Obstetric Delivery: No Glucose: No Significant Hepatic Dysfunctio: No (184) NIH Stoke Scale >22: No Bacterial Endocarditis: No Pericarditis: No Improving Symptoms: No TPA Contraindication: Yes IV - TPa Received IV - TPa Procedure Performed?: No Progress/Results/Core Measures Results/Orders Lab Results Laboratory Tests Test 03/08/18 14:14 03/08/18 14:28 Range/Units Urine Color YELLOW Urine Clarity CLEAR Urine pH 7 5-9 Urine Specific [place] 1.010 L 1.016-1.022 Urine Protein NEGATIVE NEGATIVE Urine Glucose (UA) NEGATIVE NEGATIVE Urine Ketones NEGATIVE NEGATIVE Urine Nitrite NEGATIVE NEGATIVE Urine Bilirubin NEGATIVE NEGATIVE Urine Urobilinogen 1 NORMAL MG/DL Urine Leukocyte Esterase 1+ H NEGATIVE Urine RBC (Auto) NEGATIVE NEGATIVE Urine RBC 0-2 /HPF Urine WBC NONE /HPF Urine Squamous Epithelial Cells 0-2 /HPF Urine Crystals NONE /LPF Urine Bacteria TRACE /HPF Urine Casts NONE /LPF Urine Mucus NEGATIVE /LPF Urine Culture Indicated NO White Blood Count 3.7 L 4.3-11.0 10^3/uL Red Blood Count 4.38 4.35-5.85 10^6/uL Hemoglobin 12.9 11.5-16.0 G/DL Hematocrit 40 35-52 % Mean Corpuscular Volume 91 80-99 FL Mean Corpuscular Hemoglobin 30 25-34 PG Mean Corpuscular Hemoglobin Concent 32 32-36 G/DL Red Cell Distribution Width 14.8 H 10.0-14.5 % Platelet Count 96 L 130-400 10^3/uL Mean Platelet Volume 10.5 H 7.4-10.4 FL Neutrophils (%) (Auto) 62 42-75 % Lymphocytes (%) (Auto) 23 12-44 % Monocytes (%) (Auto) 10 0-12 % Eosinophils (%) (Auto) 4 0-10 % Basophils (%) (Auto) 1 0-10 % Neutrophils # (Auto) 2.3 1.8-7.8 X 10^3 Lymphocytes # (Auto) 0.9 L 1.0-4.0 X 10^3 Monocytes # (Auto) 0.4 0.0-1.0 X 10^3 Eosinophils # (Auto) 0.2 0.0-0.3 10^3/uL Basophils # (Auto) 0.0 0.0-0.1 10^3/uL Sodium Level 141 135-145 MMOL/L Potassium Level 3.6 3.6-5.0 MMOL/L Chloride Level 105 98-107 MMOL/L Carbon Dioxide Level 25 21-32 MMOL/L Anion Gap 11 5-14 MMOL/L Blood Urea Nitrogen 18 7-18 MG/DL Creatinine 0.83 0.60-1.30 MG/DL Estimat Glomerular Filtration Rate > 60 BUN/Creatinine Ratio 22 Glucose Level 176 H 70-105 MG/DL Calcium Level 9.4 8.5-10.1 MG/DL Total Bilirubin 0.9 0.1-1.0 MG/DL Aspartate Amino Transf (AST/SGOT) 17 5-34 U/L Alanine Aminotransferase (ALT/SGPT) 10 0-55 U/L Alkaline Phosphatase 77 40-136 U/L Troponin I < 0.30 <0.30 NG/ML Total Protein 6.9 6.4-8.2 GM/DL Albumin 3.4 3.2-4.5 GM/DL My Orders Orders - MAX JACQUES Ct Head Wo-R/O Stroke (03/08/18 13:59) Cbc With Automated Diff (03/08/18 14:28) Protime With Inr (03/08/18 14:) Partial Thromboplastin Time (03/08/18 14:28) Comprehensive Metabolic Panel (03/08/18:) Fibrin Degradation Products (03/08/18:) Troponin I (03/08/18 14:) Ua Culture If Indicated (03/08/18 14:) Chest 1 View, Ap/Pa Only (03/08/18:) Catheter(Urinary) Insert & Ass 03,15 (03/08/18 14:28) Ekg Tracing (03/08/18 14:28) Nothing By Mouth (03/08/18 Dinner) Accucheck Stat ONCE (03/08/18:) Saline Lock/Iv-Start (03/08/18 14:28) Saline Lock/Iv-Start (03/08/18 14:28) Vital Signs Stroke Patient Q15M (03/08/18 14:28) O2 (03/08/18 14:28) Intake & Output 06,14,22 (03/08/18 14:28) Nicardipine Iv (Cardene I.V.) (03/08/18 14:30) Monitor-Rhythm Ecg Trace Only (03/08/18 14:28) Dysphagia Screening Tool (03/08/18:) Lipid Panel (03/09/18 06:00) Vital Signs/I&O 03/08/18 13:52 Temp 98.0 Pulse 81 Resp 16 B/P (MAP) 190/87 (121) Pulse Ox 100 O2 Delivery Room Air Progress Progress Note : Time: 15:11 Progress Note Blood pressures consistently running above 210 systolic so organized do an inch of Nitropaste. We'll go ahead and order a CRP, ESR and CPK for the morning. MRI diffusion-weighted ordered today, inpatient. Initial ECG Impression Date: Mar 08, 2018 Initial ECG Impression Time: 14:54 Initial ECG Rate: 74 Initial ECG Rhythm: Normal Sinus Initial ECG Intervals: Normal Initial ECG Impression: Normal, Nonspecific Changes Initial ECG Comparisson: Unchanged Comment No ST elevation or depression. PVCs noted. Diagnostic Imaging Diagonstic Imaging: CT (C/O contrast) Plain Films/CT/US/NM/MRI: head Comments No acute intracranial hemorrhage, fracture, midline shift, tumor or widening of the ventricles. VIA [facility], [facility]. [place], [place] NAME: KATHARINE PEREZ [facility] REC#: [id number] PT STATUS: REG ER : 1940 PHYSICIAN: MAX JACQUES MD ADMIT DATE: 03/08/18/ER Draft Date of Exam:03/08/18 CT HEAD WO-R/O STROKE INDICATION: Stroke confusion. Comparison is made with prior CT from 10/18/2017. Ventricles and sulci appear stable. No sulcal effacement is identified. There is no midline shift. No acute intra-axial or extra-axial hemorrhage is detected. Cisterns are patent. The visualized paranasal sinuses are clear. IMPRESSION: No acute intracranial process is detected. Dictated on workstation # [id number] Dict: 03/08/18 1412 Trans: 03/08/18 1419 [facility] [id number] Interpreted by: DELORES POND MD Electronically signed by: Reviewed: Reviewed by Me Diagonstic Imaging: Xray Plain Films/CT/US/NM/MRI: chest Comments [facility]. [place] [place] NAME: KATHARINE PEREZ [facility] REC#: [id number] PT STATUS: REG ER : 1940 PHYSICIAN: MAX JACQUES MD ADMIT DATE: 03/08/18/ER Draft Date of Exam:03/08/18 CHEST 1 VIEW, AP/PA ONLY INDICATION: Confusion. TIME OF EXAMINATION: 2:39 PM. COMPARISON: 07/26/2017. FINDINGS: The heart size is stable. The lungs are clear. The pulmonary vascularity is normal. No infiltrate, effusion, or pneumothorax is identified. Postop changes in the left shoulder are again noted. IMPRESSION: No acute cardiopulmonary process is detected. Dictated on workstation # [id number] Dict: 03/08/18 1459 Trans: 03/08/18 1501 [id number] Interpreted by: DELORES POND MD Electronically signed by: Reviewed: Reviewed by Me Consults : Consults Notes Dr. Delong, [facility] neurology after discussing the case lab imaging findings and examination she agrees. The patient does not demonstrate ataxia but rather generalized weakness and we should look for a metabolic or infectious etiology. If one is not found then we could do more investigation looking for a central etiology for her weakness with MRI etc. She agrees with not using TPA at this time. Departure Communication (Admissions) Time/Spoke to Admitting Phy: 15:00 Discussed case lab imaging EKG and findings with Dr. LEE and since we cannot find a metabolic or infectious source of her confusion were going to get an MRI on the inpatient side. He is okay with admission to the floor. Impression Primary Impression: Confusion Additional Impressions: Hypertension Qualified Codes: I10 - Essential (primary) hypertension Acute cerebrovascular accident Generalized weakness Disposition: ADMITTED INPATIENT Condition: Stable Admissions Decision to Admit Reason: Admit from ER (General) Decision to Admit/Date: Mar 08, 2018 Time/Decision to Admit Time: 15:14 Departure-Patient Inst. Referrals: ADEN LEE DO (PCP/Family) Primary Care Physician Copy Copies To 1: ADEN LEE TITUS J Mar 08, 2018 14:20
[2018-03-08] MEDS ORDERED: niCARdipine IV 50 MG in NS (IVPB) 240 ML IV SCH (14:30)
[2018-03-08 14:36] LABS: BILIRUBIN,URINE NEGATIVE (NEGATIVE); CLARITY,URINE CLEAR; COLOR,URINE YELLOW; GLUCOSE, URINE (UA) NEGATIVE (NEGATIVE); KETONES,URINE NEGATIVE (NEGATIVE); LEUKOCYTE ESTERASE ,URINE 1+ (NEGATIVE); NITRITE,URINE NEGATIVE (NEGATIVE); PH,URINE 7 (5-9); PROTEIN,URINE NEGATIVE (NEGATIVE); UROBILINOGEN,URINE 1 MG/DL (NORMAL)
[2018-03-08 14:38] LABS: BASOPHILS % (AUTO) 1 % (0-10); EOSINOPHILS # (AUTO) 0.2 10^3/uL (0.0-0.3); EOSINOPHILS % (AUTO) 4 % (0-10); HEMATOCRIT 40 % (35-52); HEMOGLOBIN 12.9 G/DL (11.5-16.0); LYMPHOCYTES # (AUTO) 0.9 X 10^3 (1.0-4.0); LYMPHOCYTES % (AUTO) 23 % (12-44); MEAN CORPUSCULAR HEMOGLOBIN 30 PG (25-34); MEAN CORPUSCULAR HGB CONC 32 G/DL (32-36); MEAN CORPUSCULAR VOLUME 91 FL (80-99); MEAN PLATELET VOLUME 10.5 FL (7.4-10.4); MONOCYTES # (AUTO) 0.4 X 10^3 (0.0-1.0); MONOCYTES % (AUTO) 10 % (0-12); NEUTROPHILS # (AUTO) 2.3 X 10^3 (1.8-7.8); NEUTROPHILS % (AUTO) 62 % (42-75); PLATELET COUNT 96 10^3/uL (130-400); RED BLOOD COUNT 4.38 10^6/uL (4.35-5.85); RED CELL DISTRIBUTION WIDTH 14.8 % (10.0-14.5); WHITE BLOOD COUNT 3.7 10^3/uL (4.3-11.0)
[2018-03-08 14:45] LABS: BACTERIA,URINE TRACE /HPF
[2018-03-08 14:47] LABS: RBC,URINE 0-2 /HPF
[2018-03-08 14:48] LABS: SQUAMOUS EPITHELIAL CELL,UR 0-2 /HPF
[2018-03-08 14:53] LABS: ALANINE AMINOTRANSFERASE 10 U/L (0-55); ALBUMIN 3.4 GM/DL (3.2-4.5); ALKALINE PHOSPHATASE 77 U/L (40-136); BILIRUBIN,TOTAL 0.9 MG/DL (0.1-1.0); BUN/CREATININE RATIO 22; CALCIUM 9.4 MG/DL (8.5-10.1); CARBON DIOXIDE 25 MMOL/L (21-32); CHLORIDE 105 MMOL/L (98-107); CREATININE SERUM 0.83 MG/DL (0.60-1.30); GFR ESTIMATED > 60; GLUCOSE 176 MG/DL (70-105); POTASSIUM 3.6 MMOL/L (3.6-5.0); SODIUM 141 MMOL/L (135-145); TOTAL PROTEIN 6.9 GM/DL (6.4-8.2)
--- NOTE | 2018-03-08 15:01 | Diagnostic Imaging Report ---
INDICATION: Confusion. TIME OF EXAMINATION: 2:39 PM. COMPARISON: 07/26/2017. FINDINGS: The heart size is stable. The lungs are clear. The pulmonary vascularity is normal. No infiltrate, effusion, or pneumothorax is identified. Postop changes in the left shoulder are again noted. IMPRESSION: No acute cardiopulmonary process is detected. Dictated by: Dictated on workstation # [id number]
[2018-03-08] MEDS ORDERED: NITROGLYCERIN 2% OINT 1 GM UNIT DOSE PACKET TOP ONE (15:15)
[2018-03-08 15:49] LABS: FIBRIN DEGRADATION PRODUCTS 1.26 UG/ML (0.00-0.49); INR 1.2 (0.8-1.4); PROTHROMBIN TIME PATIENT 15.4 SEC (12.2-14.7)
[2018-03-08] MEDS ORDERED: NITROGLYCERIN 2% OINT 1 GM UNIT DOSE PACKET TOP PRN (16:00)
[2018-03-08] MEDS ORDERED: TELM80TA PO (16:09)
[2018-03-08] MEDS ORDERED: FISH1CAP15 PO (16:09)
[2018-03-08] MEDS ORDERED: FESO4TAB PO (16:09)
[2018-03-08] MEDS ORDERED: SIMV20TA3 PO (16:09)
[2018-03-08] MEDS ORDERED: FURO40TA4 PO (16:09)
[2018-03-08] MEDS ORDERED: OMEP40CA36 PO (16:09)
[2018-03-08] MEDS ORDERED: METF500T5 PO (16:09)
[2018-03-08] MEDS ORDERED: C,E,1CAP PO (16:09)
[2018-03-08] MEDS ORDERED: D-ME118S7 PO (16:09)
[2018-03-08] MEDS ORDERED: ONDANSETRON 4 MG/2 ML (SDV) Z0FRAN IV PRN (16:15)
[2018-03-08] MEDS ORDERED: CATHETER FLUSH 10 ML SYR IV PRN (16:15)
[2018-03-08] MEDS ORDERED: fentaNYL INJECTION 100 MCG/2 ML AMP IV PRN (16:15)
[2018-03-08 16:35] VITALS: BP 181/72
[2018-03-08] MEDS: 1/2 NS W/KCL 20 MEQ/L 1,000 ML IV SCH ×3 (17:39→23:37)
[2018-03-08 19:45] VITALS: BP 175/74
[2018-03-09 04:22] VITALS: BP 138/68
[2018-03-09 05:39] LABS: BASOPHILS % (AUTO) 0 % (0-10); EOSINOPHILS # (AUTO) 0.3 10^3/uL (0.0-0.3); EOSINOPHILS % (AUTO) 5 % (0-10); HEMATOCRIT 34 % (35-52); HEMOGLOBIN 11.3 G/DL (11.5-16.0); LYMPHOCYTES % (AUTO) 19 % (12-44); MEAN CORPUSCULAR HEMOGLOBIN 30 PG (25-34); MEAN CORPUSCULAR HGB CONC 34 G/DL (32-36); MEAN CORPUSCULAR VOLUME 89 FL (80-99); MEAN PLATELET VOLUME 10.5 FL (7.4-10.4); MONOCYTES # (AUTO) 0.5 X 10^3 (0.0-1.0); MONOCYTES % (AUTO) 9 % (0-12); NEUTROPHILS # (AUTO) 3.6 X 10^3 (1.8-7.8); NEUTROPHILS % (AUTO) 67 % (42-75); PLATELET COUNT 119 10^3/uL (130-400); RED BLOOD COUNT 3.79 10^6/uL (4.35-5.85); RED CELL DISTRIBUTION WIDTH 14.7 % (10.0-14.5); WHITE BLOOD COUNT 5.4 10^3/uL (4.3-11.0)
[2018-03-09] MEDS: 1/2 NS W/KCL 20 MEQ/L 1,000 ML IV SCH ×3 (05:48→17:44)
[2018-03-09 05:55] LABS: BUN/CREATININE RATIO 20; CALCIUM 8.6 MG/DL (8.5-10.1); CARBON DIOXIDE 27 MMOL/L (21-32); CHLORIDE 108 MMOL/L (98-107); CHOLESTEROL 130 MG/DL (< 200); CREATINE KINASE 26 U/L (29-168); CREATININE SERUM 0.69 MG/DL (0.60-1.30); GFR ESTIMATED > 60; GLUCOSE 113 MG/DL (70-105); HDL CHOLESTEROL 37 MG/DL (40-60); SODIUM 142 MMOL/L (135-145); TRIGLYCERIDES 72 MG/DL (<150); VLDL CHOLESTEROL 14 MG/DL (5-40)
[2018-03-09 06:09] LABS: ERYTHROCYTE SEDIMENTATION RATE 36 MM/HR (0-30)
--- NOTE | 2018-03-09 07:35 | History & Physicial ---
History of Present Illness History of Present Illness Reason for visit/HPI Patient resident of assisted living. Patient brought to emergency room by EMS. Patient had confusion and difficulty in walking. Patient evaluated by the emergency room physician and [facility] neurology got involved. Patient this morning is confused. Patient does not know the certified art therapist is, what year it is, and what 10-2 is. Patient does not know her birthdate. Issue new this before. CAT scan of the head negative. Patient to have an MRI could not fit in the machine. Patient has history of diabetes and hypertension Date of Admission Mar 08, 2018 at 15:00 Time Seen by Provider: 07:30 I consulted on this patient on 03/09/18 07:30 Attending Physician Ba Lee DO Admitting Physician Ba Lee DO Consult Allergies and Home Medications Allergies Coded Allergies: Penicillins (Unverified Allergy, Unknown, 12/21/06) codeine (Unverified Allergy, Unknown, 12/21/06) aspirin (Verified Adverse Reaction, Unknown, NAUSEA, 10/07/16) Home Medications C,E,Zinc,Copper 11/Tnbka0v/Lut 1 Each Capsule, 1 CAP PO DAILY, (Reported) D-Methorphan Hb/Prometh HCl 118 Ml Syrup, 2 TSP PO Q8H PRN for COUGH, (Reported) Fesoterodine Fumarate 4 Mg Tab.sr.24h, 4 MG PO DAILY, (Reported) Fish Oil/Dha/Epa 1 Each Capsule, 1,200 MG PO BID, (Reported) Furosemide 40 Mg Tablet, 40 MG PO DAILY, (Reported) Metformin HCl 500 Mg Tablet, 500 MG PO BID, (Reported) Omeprazole 40 Mg Capsule.dr, 40 MG PO DAILY, (Reported) Simvastatin 20 Mg Tablet, 20 MG PO HS, (Reported) Telmisartan 80 Mg Tablet, 80 MG PO DAILY, (Reported) Patient Home Medication List Home Medication List Reviewed: Yes Past Dklxdlh-Ymflvc-Yptsjb Hx Patient Social History Marrital Status: Employed/Student: retired Alcohol Use: Denies Use Recreational Drug Use: No Smoking Status: Never a Smoker Physical Abuse Screen: No Sexual Abuse: No Recent Foreign Travel: No Contact w/other who traveled: No Recent Hopitalizations: Yes Recent Infectious Disease Expo: No Immunizations Up To Date Tetanus Booster (TDap): More than 5yrs Date of Pneumonia Vaccine: Aug 07, 2016 Date of Influenza Vaccine: Jun 09, 2016 Seasonal Allergies Seasonal Allergies: No Surgeries Yes (BILAT TKR, TIEN FILTER, LEFT SHOULDER SURGERY, BONE SPUR LEFT HEEL) Joint Replacement, Orthopedic Respiratory No Cardiovascular Yes Deep Vein Thrombosis, High Cholesterol, Hypertension Neurological No Reproductive System Hx Reproductive Disorders: No Sexually Transmitted Disease: No HIV/AIDS: No Female Reproductive Disorders: Denies Genitourinary No Gastrointestinal Yes Gastroesophageal Reflux Musculoskeletal Yes (BONE SPUR REMOVAL LEFT FOOT) Arthritis Endocrine History of Endocrine Disorders: Yes (DM TYPE II) Endocrine Disorders: Diabetes, Non-Insulin dep HEENT History of HEENT Disorders: No Cancer No Psychosocial History of Psychiatric Problem: No Integumentary History of Skin or Integumenta: No Blood Transfusions History of Blood Disorders: Yes (BLOOD CLOT LEG TO LUNG 2000) Family Medical History Significant Family History: No Pertinent Family Hx Family Hx: Myocardial infarction Constitutional: weakness, other (Dysphagia.Confusion) EENTM: no symptoms reported Respiratory: no symptoms reported Cardiovascular: no symptoms reported Gastrointestinal: dysphagia Genitourinary: no symptoms reported Physical Exam Vital Signs Vital Signs - First Documented 03/08/18 13:52 Temp 98.0 Pulse 81 Resp 16 B/P (MAP) 190/87 (121) Pulse Ox 100 O2 Delivery Room Air Capillary Refill : Less Than 3 Seconds Height, Weight, BMI Height: 5', 2.00" Weight: 275lbs 0.0oz, 124.855150hy Method:Estimated ,50.3BMI General Appearance: No Apparent Distress, WD/WN Eyes: Bilateral Eye Normal Inspection HEENT: Normal ENT Inspection Neck: Full Range of Motion, Normal Inspection Respiratory: Chest Non Tender, Lungs Clear, No Accessory Muscle Use Cardiovascular: Regular Rate, Rhythm, No Murmur Gastrointestinal: Non Tender, Soft Assessment/Plan Assessment and Plan Confusion. Hypertension. Diabetes. Weakness. CVA Admission Diagnosis Admission Status: Inpatient Order (span 2 midnights) Reason for Inpatient Admission: Confusion. Failed dysphagia test. Diabetes. Obesity. Hypertension Clinical Quality Measures DVT/VTE Risk/Contraindication: Risk Factor Score Per Nursin RFS Level Per Nursing on Admit: 4+=Very High Stroke: Date of last known well: Mar 08, 2018 Time of last known well: 12:30 BA LEE DO Mar 09, 2018 07:35
[2018-03-09] MEDS ORDERED: ENOXAPARIN 40 MG/0.4 ML (LOVENOX) SYR SC SCH (08:00)
[2018-03-09 08:20] VITALS: BP 163/69
--- NOTE | 2018-03-09 09:54 | Diagnostic Imaging Report ---
PROCEDURE: US carotid duplex, bilateral. TECHNIQUE: Multiple real-time grayscale images were obtained over the carotid arteries in various projections, bilaterally. Additional duplex Doppler and color Doppler images were also obtained. INDICATION: CVA. COMPARISON: There are no prior studies available for comparison. FINDINGS: There is a small amount of calcified plaque in the left carotid system and mild soft plaque formation of both carotid systems. Flow velocities failed to show any sign of a hemodynamically significant stenosis of the common or internal carotid arteries. The right vertebral artery was noted and there was antegrade flow. However, the left vertebral artery could not be identified. IMPRESSION: 1. There is mild atherosclerotic disease involving both carotid systems but there is no evidence for a hemodynamically significant stenosis of the common or internal carotid arteries. 2. There is antegrade flow in the right vertebral artery but the left vertebral artery could not be identified. 3. If further evaluation of the left vertebral artery is desired, then CTA of the neck would be recommended. Parameters based on the consensus panel Hassan-Scale and Doppler ultrasound criteria published July 2003, Radiology, Volume 229. DOPPLER (peak systolic velocity M/S Right Left CCA .99 .89 ICA Proximal .88 .72 ICA Mid .50 .72 ICA Distal .76 .59 RATIO .89 .81 ECA 1.3 .92 VERT .73 NA Dictated by: Dictated on workstation # [id number]
[2018-03-09 12:47] VITALS: BP 158/78
--- NOTE | 2018-03-09 12:52 | ST Dysphagia Evaluation ---
Speech Evaluation-General Medical Diagnosis CVA, confusion Therapy Diagnosis Therapy Diagnosis: dysphagia Precautions Precautions/Isolations: Fall Prevention, Standard Precautions Medical History confusion, HTN, diabetes, weakness, CVA Social History Home: Assisted Living Speech PLF/Current-Dysphagia Prior Level of Function Pt indicates she has always coughed with eating/drinking. Subjective Pt laying in bed upon GAME DESIGNER/CREATIVE DIRECTOR arrival. Pt indicates she has not ate today and is very hungry. Oral Motor Skills Dentition: Natural Current Food Consistancy: Pureed Ability to Follow Directions: Good Face slight right side droop at rest Oral-Facial Assessment Smile: Normal Puff Cheeks: Normal Lingual Protrusion: Normal Lingual ROM: Normal Lingual Strength: Normal Volitional Dry Swallow: Yes Voluntary Cough: Yes Can Clear Throat Volitionally: Yes Productive Cough: Yes Productive Throat Clear: Yes Dysphagia Evaluation Consistencies Presented: Regular, Thin Liquid, Mechanical Soft, [place] Thick Liquid functional oral phase Pharyngeal Phase: Delayed Laryngeal Elevation Pt with cough following thin liquid trials x3 with and without straw and cues for small sips. NTL trials then evaluated. Pt cough x1/4 NTL trials. Pt appears with timely swallow, mild decreased hyolaryngeal elevation. Pt also coughed x1/ 3 trials of puree consistency. It is recommended to f/u with a modified barium swallow study for further assessment to identify if cough is habitual vs. laryngeal penetration. Funct. Velo/Pharyngeal Symptom: Cough After Swallow Dietary Recommendations: Mechanical Soft Liquid Recommendations: [place] Consistancy Swallowing Precautions: Decreased Bolus 1/2 Tsp, Decreased Rate of Oral Intake , Liquids from Cup, [place] Maneuver, Sitting Upright 90 Degrees, Sitting 90 Degrees 30 Post Intake Dysphagia Evaluation Summary The pt presents with mild dysphagia characterized by mild decreased hyolaryngeal elevation and coughing following swallow. Modified barium swallow study to be completed tomorrow's date to ensure safe PO intake and diet recommendations. Speech Short Term Goals Short Term Goals Short Term Goals The pt will tolerate least restrictive diet with no s/s of aspiration or laryngeal penetration during an observed snack/meal. Speech-Plan Treatment Plan Speech Therapy Treatment Plan: Continue Plan of Care 2-3 visits Frequency: 2 times per week Estimated Hrs Per Day: .25 hour per day Rehab Potential: Fair Time Speech Therapy Time In: 11:20 Speech Therapy Time Out: 11:40 Billed Treatment Time 1YADIEL 20 mins DARLENE MORALES Mar 09, 2018 12:52
[2018-03-09 16:02] VITALS: BP 162/78
[2018-03-09] MEDS: CLOPIDOGREL 75 MG (PLAVIX) TABLET PO SCH (17:46)
[2018-03-09 20:04] VITALS: BP 168/84
[2018-03-09] MEDS: SIMvastatin 20 MG (ZOCOR) TAB PO SCH (20:30)
[2018-03-10 00:03] VITALS: BP 153/70
[2018-03-10] MEDS: 1/2 NS W/KCL 20 MEQ/L 1,000 ML IV SCH ×2 (01:33→18:27)
[2018-03-10 03:48] VITALS: BP 149/65
[2018-03-10] MEDS: PANTOPRAZOLE 40 MG (PROTONIX) TAB PO SCH (05:32)
[2018-03-10 06:14] LABS: BASOPHILS % (AUTO) 0 % (0-10); EOSINOPHILS # (AUTO) 0.4 10^3/uL (0.0-0.3); EOSINOPHILS % (AUTO) 9 % (0-10); HEMATOCRIT 34 % (35-52); HEMOGLOBIN 11.6 G/DL (11.5-16.0); LYMPHOCYTES # (AUTO) 0.9 X 10^3 (1.0-4.0); LYMPHOCYTES % (AUTO) 19 % (12-44); MEAN CORPUSCULAR HEMOGLOBIN 30 PG (25-34); MEAN CORPUSCULAR HGB CONC 34 G/DL (32-36); MEAN CORPUSCULAR VOLUME 90 FL (80-99); MEAN PLATELET VOLUME 11.4 FL (7.4-10.4); MONOCYTES # (AUTO) 0.5 X 10^3 (0.0-1.0); MONOCYTES % (AUTO) 10 % (0-12); NEUTROPHILS # (AUTO) 2.9 X 10^3 (1.8-7.8); NEUTROPHILS % (AUTO) 62 % (42-75); PLATELET COUNT 102 10^3/uL (130-400); RED BLOOD COUNT 3.84 10^6/uL (4.35-5.85); RED CELL DISTRIBUTION WIDTH 14.5 % (10.0-14.5); WHITE BLOOD COUNT 4.7 10^3/uL (4.3-11.0)
[2018-03-10 06:28] LABS: ALANINE AMINOTRANSFERASE 8 U/L (0-55); ALBUMIN 2.8 GM/DL (3.2-4.5); ALKALINE PHOSPHATASE 66 U/L (40-136); BILIRUBIN,TOTAL 1.4 MG/DL (0.1-1.0); BUN/CREATININE RATIO 18; CALCIUM 8.5 MG/DL (8.5-10.1); CARBON DIOXIDE 22 MMOL/L (21-32); CHLORIDE 112 MMOL/L (98-107); CHOLESTEROL 134 MG/DL (< 200); CREATININE SERUM 0.66 MG/DL (0.60-1.30); GFR ESTIMATED > 60; GLUCOSE 102 MG/DL (70-105); HDL CHOLESTEROL 38 MG/DL (40-60); POTASSIUM 4.4 MMOL/L (3.6-5.0); SODIUM 141 MMOL/L (135-145); TOTAL PROTEIN 5.7 GM/DL (6.4-8.2); TRIGLYCERIDES 57 MG/DL (<150); VLDL CHOLESTEROL 11 MG/DL (5-40)
--- NOTE | 2018-03-10 07:15 | Progress Note (SOAP) ---
Subjective Time Seen by Provider: 07:10 Subjective/Events-last exam Patient much improved today. Patient speaking better. 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 Patient knows where she is at. Platelet count 102,000 we'll monitor her Thrombocytopenia. Diabetes. Acute CVA. Patient to have rehabilitation evaluate. Objective Exam Vital Signs Date Time Temp Pulse Resp B/P (MAP) Pulse Ox O2 Delivery O2 Flow Rate FiO2 03/10/18 03:48 98.0 91 16 149/65 (93) 98 Room Air 03/10/18 01:00 61 03/10/18 00:03 98.4 65 19 153/70 (97) 97 Room Air 03/09/18 20:04 97.1 58 18 168/84 (112) 97 Room Air 03/09/18 19:05 69 03/09/18 16:02 98.2 58 18 162/78 (106) 99 Room Air 03/09/18 13:26 67 03/09/18 12:47 98.0 71 20 158/78 (104) 97 Room Air 03/09/18 08:20 98.1 71 18 163/69 (100) 98 Room Air 03/09/18 08:00 65 I & O 03/10/18 07:00 Intake Total 3425 ml Output Total 2825 ml Balance 600 ml Capillary Refill : Less Than 3 Seconds General Appearance: No Apparent Distress, WD/WN HEENT: Normal ENT Inspection Neck: Full Range of Motion, Normal Inspection Respiratory: Chest Non Tender, Lungs Clear, Normal Breath Sounds, No Accessory Muscle Use, No Respiratory Distress Cardiovascular: Regular Rate, Rhythm, No Murmur Gastrointestinal: non tender, soft Results Lab Laboratory Tests 03/10/18 05:39 Laboratory Tests 03/10/18 05:39: White Blood Count 4.7, Red Blood Count 3.84L, Hemoglobin 11.6, Hematocrit 34L, Mean Corpuscular Volume 90, Mean Corpuscular Hemoglobin 30, Mean Corpuscular Hemoglobin Concent 34, Red Cell Distribution Width 14.5, Platelet Count 102L, Mean Platelet Volume 11.4H, Neutrophils (%) (Auto) 62, Lymphocytes (%) (Auto) 19 , Monocytes (%) (Auto) 10, Eosinophils (%) (Auto) 9, Basophils (%) (Auto) 0, Neutrophils # (Auto) 2.9, Lymphocytes # (Auto) 0.9L, Monocytes # (Auto) 0.5, Eosinophils # (Auto) 0.4H, Basophils # (Auto) 0.0, Sodium Level 141, Potassium Level 4.4, Chloride Level 112H, Carbon Dioxide Level 22, Anion Gap 7, Blood Urea Nitrogen 12, Creatinine 0.66, Estimat Glomerular Filtration Rate > 60, BUN/ Creatinine Ratio 18, Glucose Level 102, Calcium Level 8.5, Total Bilirubin 1.4H , Aspartate Amino Transf (AST/SGOT) 16, Alanine Aminotransferase (ALT/SGPT) 8, Alkaline Phosphatase 66, Total Protein 5.7L, Albumin 2.8L, Triglycerides Level 57, Cholesterol Level 134, LDL Cholesterol Direct 93, VLDL Cholesterol 11, HDL Cholesterol 38L Assessment/Plan Assessment/Plan Assess & Plan/Chief Complaint Acute CVA. Thrombocytopenia. Diabetes. Hypertension. Hyperlipidemia. Dysphagia. Dysarthria. Rehabilitation evaluation Clinical Quality Measures Admission Status Admission Dx Confusion. Hypertension. Diabetes. Weakness. CVA DVT/VTE Risk/Contraindication: Risk Factor Score Per Nursin RFS Level Per Nursing on Admit: 4+=Very High Stroke: Date of last known well: Mar 08, 2018 Time of last known well: 12:30 ADEN LEE DO Mar 10, 2018 07:15
[2018-03-10 07:37] VITALS: BP 147/69
[2018-03-10] MEDS ORDERED: TELMISARTAN 80 MG PO SCH (09:00)
[2018-03-10] MEDS ORDERED: NON-FORMULARY MEDICATION 1 EA EA (Omeprazole 40 MG) PO SCH (09:00)
--- NOTE | 2018-03-10 09:55 | Physical Therapy Evaluation ---
PT Evaluation-General Medical Diagnosis Admission Date Mar 08, 2018 at 15:00 Medical Diagnosis: CVA, confusion Onset Date: Mar 08, 2018 Therapy Diagnosis Therapy Diagnosis: weakness; abn gait Height/Weight Height (Feet): 5 Height (Inches): 2.00 Weight (Pounds): 275 Weight (Ounces): 0.0 Precautions Precautions/Isolations: Fall Prevention, Standard Precautions Weight Bear Status Right Lower Extremity: Right Full Weight Bearing Left Lower Extremity: Left Full Weight Bearing Referral Physician: Dana Reason for Referral: Evaluation/Treatment Medical History Pertinent Medical History: DM, HTN Additional Medical History High cholesterol Current History Admitted with confusion and possible CVA. Reviewed History: Yes Social History Home: Assisted Living Current Living Status: Alone Entry Into Home: Level Entry Prior/Core FIM Prior Level of Function Functional [place] Measure 0=Not Assessed/NA 4=Minimal Assistance 1=Total Assistance 5=Supervision or Setup 2=Maximal Assistance 6=Modified [place] 3=Moderate Assistance 7=Complete [place] Bed Mobility: 0 (pt sleeps in a lift recliner) Transfers (B,C,W/C) (FIM): 6 Gait: 6 Pt uses a FWW to walk; reports she "walks the [place]" 3 times a day. PT Evaluation-Current Subjective Agreeable to PT. Reports she has not been out of bed since Thursday. Wants to sit up in the chair. Pain Numeric Pain Scale: 0-No Pain Location: No Pain Reported Objective Patient Orientation: Person, Place, Time, Situation Problem Solving: Fair Attachments: Ji Catheter, IV ROM/Strength ROM Lower Extremities WFL B LE's Strength Lower Extremities grossly 4-/5 throughout; with decreased functional activity tolerance. Integumentary/Posture Integumentary Refer to nursing notes. Bowel Incontinence: No Bladder Incontinence: Ji Cath Posture symmetrical Neuromuscular (Tone, Coordination, Reflexes) intact and functional Sensory Vision: Wears Glasses Hearing: Functional Hand Dominance: Right Sensation Right Lower Extremit: Intact Sensation Left Lower Extremity: Intact Transfers Functional [place] Measure 0=Not Assessed/NA 4=Minimal Assistance 1=Total Assistance 5=Supervision or Setup 2=Maximal Assistance 6=Modified [place] 3=Moderate Assistance 7=Complete [place] Transfers (B, C, W/C) (FIM): 3 (assist with both legs to get out of bed) Supine to/from Sit: 3 Sit to/from Stand: 4 (min assist with cues for sequencing. ) slow with transfers and requires extra time with skilled cues to sequence. Gait Mode of Locomotion: Walk Anticipated Mode of Locomotion: Walk Gait (FIM): 2 Distance (FIM): 1=up to 49 ft Distance: 25 ft Gait Level of Assist: 4 (CGA for safety) Gait Assistive Device: FWW Comments/Gait Description slow gait with decreased step length and decreased foot clearance. Balance Sitting Static: Good Sitting Dynamic: Good Standing Static: Fair Standing Dynamic: Fair Treatment Gait in her room with focus on safety and picking her feet up to clear the floor. Assessment/Needs Pt presents with gross functional weakness and impaired ability to mobilize. she will benefit from skilled PT to address strength and mobility to allow her to return to her PLOF. Rehab Potential: Good PT Longterm Goals Hadoop Analyst Goals PT Hadoop Analyst Goals Time Frame: Mar 17, 2018 Transfers (B,C,W/C) (FIM): 5 Gait (FIM): 5 PT Plan Problem List Problem List: Activity Tolerance, Functional Strength, Safety, Balance, Gait, Transfer, Bed Mobility Treatment/Plan Treatment Plan: Continue Plan of Care Treatment Plan: Bed Mobility, Education, Functional Activity Mary Ann, Functional Strength, Gait, Safety, Therapeutic Exercise, Transfers Treatment Duration: Mar 17, 2018 Frequency: 6 times per week Estimated Hrs Per Day: .5 hour per day Patient and/or Family Agrees t: Yes Safety Risks/Education Patient Education: Gait Training, Transfer Techniques, Safety Issues Teaching Recipient: Patient Teaching Methods: Demonstration, Discussion Response to Teaching: Reinforcement Needed Discharge Recommendations Therapy D/C Recommendations: Acute Rehab Time/GCodes Time In: 905 Time Out: 937 Total Billed Treatment Time: 32 Total Billed Treatment visit EVM 15 GT 17 MICHAELA ARRIAZA PT Mar 10, 2018 09:55
[2018-03-10] MEDS: FUROSEMIDE 40 MG (LASIX) TAB PO SCH (09:59)
[2018-03-10] MEDS: CLOPIDOGREL 75 MG (PLAVIX) TABLET PO SCH (09:59)
[2018-03-10] MEDS: TELMISARTAN 40 MG (MICARDIS) TAB PO SCH (10:01)
[2018-03-10 12:00] VITALS: BP 137/65
--- NOTE | 2018-03-10 12:47 | Diagnostic Imaging Report ---
INDICATION: Dysphagia. TECHNIQUE: The study was performed in conjunction with Speech Pathology. Videofluoroscopy was performed during the swallowing of barium in multiple consistencies. FINDINGS: The patient ingested honey thick, thin, pur?e, and cracker consistencies. The oral phase is unremarkable. There is normal epiglottic tilt and laryngeal elevation. No laryngeal penetration or aspiration was observed. A total of 50 seconds of fluoroscopy was utilized. IMPRESSION: Unremarkable modified barium swallow. Dictated by: Dictated on workstation # [id number]
--- NOTE | 2018-03-10 13:06 | ST Mod Barium Swallow ---
Speech Evaluation-General Medical Diagnosis CVA, confusion Onset Date: Mar 08, 2018 Therapy Diagnosis Therapy Diagnosis: Mild Pharyngeal Dysphagia Precautions Precautions: Aspiration Precautions/Isolations: Fall Prevention, Standard Precautions Referral Referring Physician: Dr. Ba Cortez Reason for Referral: Evaluation/Treatment Modified Barium Swallow Evaluation Medical History Pertinent Medical History: DM, HTN Current History The patient was recently admitted following a period of confusion and altered mental status. Upon admission, the patient "failed" her dysphagia screen, therefore, speech pathology was consulted. Reviewed History: Yes Social History Home: Assisted Living Current Living Status: Alone Speech Mod Barium Swallow Prior Level of Function The patient denied coughing or choking on any solid consistency she consumes, however, stated, "Oh I've always had trouble with liquids. I always cough on them." The patient was unable to provide a timeline of when the difficulty with swallowing began and denies the presence of any recent diagnosis of pneumonia." Oral Motor Skills Dentition Natural Dentures: Full (Natural) Lingual Protrusion: Normal Lingual ROM: Normal Lingual Strength: Normal Velum: Normal Volitional Dry Swallow: Yes Voluntary Cough: Yes Can Clear Throat Volitionally: Yes Textures-Lateral View Lateral View Food Presentation: Thin Liquid via Spoon, Thin Liquid via Straw, Honey Liquid via Spoon, Pureed Solids, Regular Solids Oral Phase Labial Closure: No Impairment (WFL) Bolus Formation Pooling L/R: No Impairment (WFL) Bolus Formation Placement: No Impairment (WFL) Mastication Rotary Chew: No Impairment (WFL) A/P Lingual Propulsion: No Impairment (WFL) Lingual Movement: No Impairment (WFL) Oral Phase Residue: Minimal Impairment (With puree and solid consistencies ( easily cleared with subsequent dry swallow).) Pharyngeal Phase Swallow Response: Mild Impairment (The pharyngeal swallow was triggered as bolus material reached the vallecular space (consistently).) Base of Tongue: Minimal Impairment Epiglottic Movement: No Impairment (WFL) Laryngeal Elevation: Mild Impairment Vallecular Residue: Swallow to Clear (Cleared, minimized with subsequent dry swallow.) Pharyngeal Wall Residue: No Impairment (WFL) Piriform Sinus Residue: No Impairment (WFL) Laryngeal Penetration: None Aspiration Observations: None Performed-A/P View Not Applicable/Performed Summary/Impressions The patient displayed mild pharyngeal dysphagia characterized by reduced laryngeal elevation and a mildly delayed pharyngeal onset of the swallow. Speech Short Term Goals Short Term Goals Short Term Goals The pt will tolerate least restrictive diet with no s/s of aspiration or laryngeal penetration during an observed snack/meal. Speech-Plan Treatment Plan Speech Therapy Treatment Plan: Discontinue ST The patient displays no dysphagia related speech needs at this time. The patient 's swallow is minimally to mildly impaired, however, she does not aspirate or penetrate any material. Frequency: 2 times per week Estimated Hrs Per Day: .25 hour per day Rehab Potential: Good Safety Risks/Education Teaching Recipient: Patient Teaching Methods: Discussion Response to Teaching: Verbalize Understanding Education Topics Provided: Results, Recommendations, Swallow Strategies (Results shared with RN) Time Speech Therapy Time In: 11:15 Speech Therapy Time Out: 11:45 Total Billed Time: 30 Billed Treatment Time Jamie, YURI SHIVANI DEL CASTILLO Mar 10, 2018 13:06
--- NOTE | 2018-03-10 14:30 | Occupational Therapy Eval ---
OT Evaluation-General/PLF Medical Diagnosis Admission Date Mar 08, 2018 at 15:00 Medical Diagnosis: CVA, confusion Onset Date: Mar 08, 2018 Therapy Diagnosis Therapy Diagnosis: Decreased ADL skills Height/Weight Height (Feet): 5 Height (Inches): 2.00 Weight (Pounds): 275 Weight (Ounces): 0.0 Precautions Precautions/Isolations: Fall Prevention, Standard Precautions Safety Interventions: Bed Exit Alarm, Reorient-PRN Referral Physician: Dana Referral Reason: Activity Tolerance, Self Care, Evaluation/Treatment, Strengthening/ROM Medical History Pertinent Medical History: DM, HTN Additional Medical History Bilateral TKR, sabina filter, Left shoulder, DVT Current History Pt. is resident at [facility]. Became confused and was brought by EMS to ER Reviewed History: Yes Social History Home: Assisted Living Current Living Status: Alone Entry Into Home: Level Entry ADL-Prior Level of Function ADL PLOF Comments Pt. states that she was able to bathe and dress herself previous to hospitalization. DME/Equipment: Bath Chair, Tub/Shower DME/Equipment Comments Pt. uses a walker to get around assisted living. OT Current Status Subjective No pain reported. Appearance Pt. agrees to shower. Mental Status/Objective Patient Orientation: Person, Place Current Glasses/Contacts: Yes Hand Dominance: Right Upper Extremity ROM WFL Upper Extremity Strength 3+/5 bilateral UE strength. ADL-Treatment Functional [place] Measure 0=Not Assessed/NA 4=Minimal Assistance 1=Total Assistance 5=Supervision or Setup 2=Maximal Assistance 6=Modified [place] 3=Moderate Assistance 7=Complete IndependenceIRFPAI Quality Coding Scale 6 Independent with activity with or without an assistive device 5 Patient requires set up or clean up by helper. Patient completes activity by themselves 4 Supervision or touching assist (CGA). Remer provide cues , steadying assist 3 The helper provides less than half the effort to complete the activity 2 The helper provides more than half the effort to complete the activity 1 Dependent. The helper does all the effort to complete an activity 7 Patient refused to complete or attempt activity 9 The patient did not perform the activity before the current illness or injury 88 Not attempted due to Medical conditions or safety concerns Grooming (FIM): 5 (Set up to brush hair.) Bathing (FIM): 3 (Pt. required assistance to wash thoroughly in front and rear se area. Also required assistance to wash bilateral feet.) Lower Body Dressing (FIM): 2 (Pt. is unable to reach feet to doff/don socks. However, can raise feet to assist OT with this task.) Transfers (B, C, W/C) (FIM): 4 (Min assist to stand and ambulate to bathroom.) Pt. requires increased time and effort with most tasks. States that she feels weak and requires cues to attempt to try for herself. Pt. has large abdominal folds and so after area was dried thoroughly for her, pillow cases were placed for moisture barrier. Pt. tolerated treatment well. Education OT Patient Education: Correct positioning, Energy conservation, Modified ADL techniques, Progress toward Goal/Update tx plan, Purpose of tx/functional activities, Reviewed precautions, Rehab process, Transfer techniques Teaching Recipient: Patient Teaching Methods: Demonstration, Discussion Response to Teaching: Verbalize Understanding, Return Demonstration OT Short Term Goals Short Term Goals 1=Demonstrate adherence to instructed precautions during ADL tasks. 2=Patient will verbalize/demonstrate understanding of assistive devices/ modifications for ADL. 3=Patient will improve strength/tolerance for activity to enable patient to perform ADL's. OT Chcf Goals Chcf Goals Time Frame: Mar 24, 2018 Eating (FIM): 6 Grooming(FIM): 6 Bathing(FIM): 5 Upper Body Dressing(FIM): 6 Lower Body Dressing(FIM): 5 Toileting(FIM): 6 Transfers (B,C,W/C) (FIM): 6 Toilet/Commode Transfer(FIM): 6 Shower Transfer(FIM): 5 Additional Goals: 1-Demonstrate ADL Tasks, 2-Verbalize Understanding, 3- ImproveStrength/Mary Ann 1=Demonstrate adherence to instructed precautions during ADL tasks. 2=Patient will verbalize/demonstrate understanding of assistive devices/ modifications for ADL. 3=Patient will improve strength/tolerance for activity to enable patient to perform ADL's. OT Education/Plan Problem List/Assessment Assessment: Decreased Activ Tolerance, Decreased UE Strength, Dependent Transfers, Impaired Funct Balance, Impaired I ADL's, Impaired Self-Care Skills Discharge Recommendations Plan/Recommendations: Continue POC Therapy D/C Recommendations: Assisted Living, Occupational Therapy Home Care, Scheduled Assistance Equpiment Recommendations-D/C: Hip Kit Comment All equipment needs and discharge location to be determined. Treatment Plan/Plan of Care Treatment,Training & Education: Yes Patient would benefit from OT for education, treatment and training to promote independence in ADL's, mobility, safety and/or upper extremity function for ADL' s. Plan of Care: ADL Retraining, Functional Mobility, UE Funct Exercise/Act Treatment Duration: Mar 24, 2018 Frequency: 5 times per week Estimated Hrs Per Day: .5 hour per day Agreement: Yes Rehab Potential: Good Time/GCodes Start Time: 11:45 Stop Time: 12:15 Total Time Billed (hr/min): 30 Billed Treatment Time 1, EVH x 15minutes, ADL x 15minutes DUKE PRAJAPATI OT Mar 10, 2018 14:30
[2018-03-10 15:50] VITALS: BP 177/77
[2018-03-10 19:55] VITALS: BP 182/80
[2018-03-10] MEDS: SIMvastatin 20 MG (ZOCOR) TAB PO SCH (20:17)
[2018-03-11] VITALS: BP 135/61
[2018-03-11 04:18] VITALS: BP 165/72
[2018-03-11] MEDS: PANTOPRAZOLE 40 MG (PROTONIX) TAB PO SCH (05:34)
[2018-03-11 07:27] VITALS: BP 148/66
--- NOTE | 2018-03-11 07:52 | Progress Note (SOAP) ---
Subjective Time Seen by Provider: 07:50 Subjective/Events-last exam Patient doing better today. Patient speaking better. Patient able to eat. CVA. Diabetes. Obesity. Objective Exam Vital Signs Date Time Temp Pulse Resp B/P (MAP) Pulse Ox O2 Delivery O2 Flow Rate FiO2 03/11/18 07:27 97.2 64 18 148/66 (93) 99 Room Air 03/11/18 07:00 62 03/11/18 04:18 97.8 65 22 165/72 (103) 97 Room Air 03/11/18 01:00 66 03/11/18 00:00 98.6 60 20 135/61 (85) 97 Room Air 03/10/18 19:55 97.9 74 20 182/80 (114) 99 Room Air 03/10/18 19:00 82 03/10/18 15:50 98.7 60 20 177/77 (110) 99 Room Air 03/10/18 13:00 55 03/10/18 12:00 97.9 65 22 137/65 (89) 97 Room Air 03/10/18 11:17 Room Air I & O 03/11/18 07:00 Intake Total 740 ml Output Total 1250 ml Balance -510 ml Capillary Refill : Less Than 3 Seconds General Appearance: No Apparent Distress, WD/WN HEENT: Normal ENT Inspection Neck: Full Range of Motion Respiratory: Lungs Clear, No Accessory Muscle Use, No Respiratory Distress Cardiovascular: Regular Rate, Rhythm, No Murmur Gastrointestinal: non tender, soft Assessment/Plan Assessment/Plan Assess & Plan/Chief Complaint Acute CVA. Thrombocytopenia. Diabetes. Hypertension. Hyperlipidemia. Dysphagia. Dysarthria. Rehabilitation evaluation. . 03/11/18. Acute CVA. Thrombocytopenia. Diabetes. Hypertension. Hyperlipidemia. Dysphagia. Dysarthria. Patient to go to rehabilitation today. Patient improving with speech and eating Clinical Quality Measures Admission Status Admission Dx Confusion. Hypertension. Diabetes. Weakness. CVA DVT/VTE Risk/Contraindication: Risk Factor Score Per Nursin RFS Level Per Nursing on Admit: 4+=Very High Stroke: Date of last known well: Mar 08, 2018 Time of last known well: 12:30 ADEN LEE DO Mar 11, 2018 07:52
[2018-03-11] MEDS: CLOPIDOGREL 75 MG (PLAVIX) TABLET PO SCH (08:26)
[2018-03-11] MEDS: FUROSEMIDE 40 MG (LASIX) TAB PO SCH (08:26)
[2018-03-11] MEDS: TELMISARTAN 40 MG (MICARDIS) TAB PO SCH (08:26)
[2018-03-11 09:14] LABS: MEAN PLATELET VOLUME 10.5 FL (7.4-10.4); RED BLOOD COUNT 4.03 10^6/uL (4.35-5.85); RED CELL DISTRIBUTION WIDTH 14.5 % (10.0-14.5); WHITE BLOOD COUNT 5.3 10^3/uL (4.3-11.0)
[2018-03-11] MEDS ORDERED: CLOP75TA28 PO (09:18)
[2018-03-11] MEDS ORDERED: NITR1OIN TOP (09:18)
[2018-03-11 09:34] LABS: BUN/CREATININE RATIO 19; CARBON DIOXIDE 23 MMOL/L (21-32); CHLORIDE 109 MMOL/L (98-107); CREATININE SERUM 0.81 MG/DL (0.60-1.30); GFR ESTIMATED > 60; GLUCOSE 172 MG/DL (70-105); POTASSIUM 4.1 MMOL/L (3.6-5.0); SODIUM 140 MMOL/L (135-145)
[2018-03-11 09:55] VITALS: BP 148/66
--- NOTE | 2018-03-12 07:39 | Discharge Summary ---
Diagnosis/Chief Complaint Date of Admission Mar 08, 2018 at 15:00 Date of Discharge Mar 11, 2018 at 10:01 Discharge Date: Mar 11, 2018 Discharge Time: 07:35 Discharge Diagnosis Acute CVA. Thrombocytopenia. Diabetes. Confusion. Dysphagia. Obesity. Hypertension. Reason Hospital Visit Patient resident of assisted living. Patient brought to emergency room by EMS. Patient had confusion and difficulty in walking. Patient evaluated by the emergency room physician and [facility] neurology got involved. Patient this morning is confused. Patient does not know the form stripper is, what year it is, and what 06-01 is. Patient does not know her birthdate. Issue new this before. CAT scan of the head negative. Patient to have an MRI could not fit in the machine. Patient has history of diabetes and hypertension Discharge Summary Discharge Physical Examination Allergies: Coded Allergies: Penicillins (Unverified Allergy, Unknown, 12/21/06) codeine (Unverified Allergy, Unknown, 12/21/06) aspirin (Verified Adverse Reaction, Unknown, NAUSEA, 10/07/16) Vitals & I&Os Vital Signs Date Time Temp Pulse Resp B/P (MAP) Pulse Ox O2 Delivery O2 Flow Rate FiO2 03/11/18 09:55 64 18 148/66 99 Room Air 03/11/18 07:27 97.2 Hospital Course Patient unable to get in the MRI. Patient had confusion on admission and on discharge doing better. Patient on admission could not verbalize. Patient did verbalize on discharge. Patient failed dysphagia tests on admission. Patient passed swallow study on discharge Labs (last 24 hrs) Laboratory Tests 03/08/18 14:14: Urine Color YELLOW, Urine Clarity CLEAR, Urine pH 7, Urine Specific [place] 1.010L, Urine Protein NEGATIVE, Urine Glucose (UA) NEGATIVE, Urine Ketones NEGATIVE, Urine Nitrite NEGATIVE, Urine Bilirubin NEGATIVE, Urine Urobilinogen 1 , Urine Leukocyte Esterase 1+H, Urine RBC (Auto) NEGATIVE, Urine RBC 0-2, Urine WBC NONE, Urine Squamous Epithelial Cells 0-2, Urine Crystals NONE, Urine Bacteria TRACE, Urine Casts NONE, Urine Mucus NEGATIVE, Urine Culture Indicated NO 03/08/18 14:28: White Blood Count 3.7L, Red Blood Count 4.38, Hemoglobin 12.9, Hematocrit 40, Mean Corpuscular Volume 91, Mean Corpuscular Hemoglobin 30, Mean Corpuscular Hemoglobin Concent 32, Red Cell Distribution Width 14.8H, Platelet Count 96L, Mean Platelet Volume 10.5H, Neutrophils (%) (Auto) 62, Lymphocytes (%) (Auto) 23 , Monocytes (%) (Auto) 10, Eosinophils (%) (Auto) 4, Basophils (%) (Auto) 1, Neutrophils # (Auto) 2.3, Lymphocytes # (Auto) 0.9L, Monocytes # (Auto) 0.4, Eosinophils # (Auto) 0.2, Basophils # (Auto) 0.0, Sodium Level 141, Potassium Level 3.6, Chloride Level 105, Carbon Dioxide Level 25, Anion Gap 11, Blood Urea Nitrogen 18, Creatinine 0.83, Estimat Glomerular Filtration Rate > 60, BUN/ Creatinine Ratio 22, Glucose Level 176H, Calcium Level 9.4, Total Bilirubin 0.9 , Aspartate Amino Transf (AST/SGOT) 17, Alanine Aminotransferase (ALT/SGPT) 10, Alkaline Phosphatase 77, Troponin I < 0.30, Total Protein 6.9, Albumin 3.4 03/08/18 15:24: Prothrombin Time 15.4H, INR Comment 1.2, Activated Partial Thromboplast Time 33 , D-Dimer 1.26H 03/09/18 05:11: White Blood Count 5.4, Red Blood Count 3.79L, Hemoglobin 11.3L, Hematocrit 34L, Mean Corpuscular Volume 89, Mean Corpuscular Hemoglobin 30, Mean Corpuscular Hemoglobin Concent 34, Red Cell Distribution Width 14.7H, Platelet Count 119L, Mean Platelet Volume 10.5H, Neutrophils (%) (Auto) 67, Lymphocytes (%) (Auto) 19 , Monocytes (%) (Auto) 9, Eosinophils (%) (Auto) 5, Basophils (%) (Auto) 0, Neutrophils # (Auto) 3.6, Lymphocytes # (Auto) 1.0, Monocytes # (Auto) 0.5, Eosinophils # (Auto) 0.3, Basophils # (Auto) 0.0, Sodium Level 142, Potassium Level 4.0, Chloride Level 108H, Carbon Dioxide Level 27, Anion Gap 7, Blood Urea Nitrogen 14, Creatinine 0.69, Estimat Glomerular Filtration Rate > 60, BUN/ Creatinine Ratio 20, Glucose Level 113H, Calcium Level 8.6, Erythrocyte Sedimentation Rate 36H, Total Creatine Kinase 26L, C-Reactive Protein High Sensitivity 0.48, Triglycerides Level 72, Cholesterol Level 130, LDL Cholesterol Direct 86, VLDL Cholesterol 14, HDL Cholesterol 37L 03/10/18 05:11: Mean Blood Glucose 126, Hemoglobin A1c 6.0H 03/10/18 05:39: White Blood Count 4.7, Red Blood Count 3.84L, Hemoglobin 11.6, Hematocrit 34L, Mean Corpuscular Volume 90, Mean Corpuscular Hemoglobin 30, Mean Corpuscular Hemoglobin Concent 34, Red Cell Distribution Width 14.5, Platelet Count 102L, Mean Platelet Volume 11.4H, Neutrophils (%) (Auto) 62, Lymphocytes (%) (Auto) 19 , Monocytes (%) (Auto) 10, Eosinophils (%) (Auto) 9, Basophils (%) (Auto) 0, Neutrophils # (Auto) 2.9, Lymphocytes # (Auto) 0.9L, Monocytes # (Auto) 0.5, Eosinophils # (Auto) 0.4H, Basophils # (Auto) 0.0, Sodium Level 141, Potassium Level 4.4, Chloride Level 112H, Carbon Dioxide Level 22, Anion Gap 7, Blood Urea Nitrogen 12, Creatinine 0.66, Estimat Glomerular Filtration Rate > 60, BUN/ Creatinine Ratio 18, Glucose Level 102, Calcium Level 8.5, Total Bilirubin 1.4H , Aspartate Amino Transf (AST/SGOT) 16, Alanine Aminotransferase (ALT/SGPT) 8, Alkaline Phosphatase 66, Total Protein 5.7L, Albumin 2.8L, Triglycerides Level 57, Cholesterol Level 134, LDL Cholesterol Direct 93, VLDL Cholesterol 11, HDL Cholesterol 38L 03/11/18 09:04: White Blood Count 5.3, Red Blood Count 4.03L, Hemoglobin 12.0, Hematocrit 36, Mean Corpuscular Volume 89, Mean Corpuscular Hemoglobin 30, Mean Corpuscular Hemoglobin Concent 33, Red Cell Distribution Width 14.5, Platelet Count 118L, Mean Platelet Volume 10.5H, Sodium Level 140, Potassium Level 4.1, Chloride Level 109H, Carbon Dioxide Level 23, Anion Gap 8, Blood Urea Nitrogen 15, Creatinine 0.81, Estimat Glomerular Filtration Rate > 60, BUN/Creatinine Ratio 19, Glucose Level 172H, Calcium Level 9.0 Laboratory Tests 03/08/18 14:28 03/09/18 05:11 03/10/18 05:39 03/11/18 09:04 Pending Labs Laboratory Tests 03/08/18 14:14: Urine Color YELLOW, Urine Clarity CLEAR, Urine pH 7, Urine Specific [place] 1.010, Urine Protein NEGATIVE, Urine Glucose (UA) NEGATIVE, Urine Ketones NEGATIVE, Urine Nitrite NEGATIVE, Urine Bilirubin NEGATIVE, Urine Urobilinogen 1 , Urine Leukocyte Esterase 1+, Urine RBC (Auto) NEGATIVE, Urine RBC 0-2, Urine WBC NONE, Urine Squamous Epithelial Cells 0-2, Urine Crystals NONE, Urine Bacteria TRACE, Urine Casts NONE, Urine Mucus NEGATIVE, Urine Culture Indicated NO 03/08/18 14:28: White Blood Count 3.7, Red Blood Count 4.38, Hemoglobin 12.9, Hematocrit 40, Mean Corpuscular Volume 91, Mean Corpuscular Hemoglobin 30, Mean Corpuscular Hemoglobin Concent 32, Red Cell Distribution Width 14.8, Platelet Count 96, Mean Platelet Volume 10.5, Neutrophils (%) (Auto) 62, Lymphocytes (%) (Auto) 23 , Monocytes (%) (Auto) 10, Eosinophils (%) (Auto) 4, Basophils (%) (Auto) 1, Neutrophils # (Auto) 2.3, Lymphocytes # (Auto) 0.9, Monocytes # (Auto) 0.4, Eosinophils # (Auto) 0.2, Basophils # (Auto) 0.0, Sodium Level 141, Potassium Level 3.6, Chloride Level 105, Carbon Dioxide Level 25, Anion Gap 11, Blood Urea Nitrogen 18, Creatinine 0.83, Estimat Glomerular Filtration Rate > 60, BUN/ Creatinine Ratio 22, Glucose Level 176, Calcium Level 9.4, Total Bilirubin 0.9, Aspartate Amino Transf (AST/SGOT) 17, Alanine Aminotransferase (ALT/SGPT) 10, Alkaline Phosphatase 77, Troponin I < 0.30, Total Protein 6.9, Albumin 3.4 03/08/18 15:24: Prothrombin Time 15.4, INR Comment 1.2, Activated Partial Thromboplast Time 33, D-Dimer 1.26 03/09/18 05:11: White Blood Count 5.4, Red Blood Count 3.79, Hemoglobin 11.3, Hematocrit 34, Mean Corpuscular Volume 89, Mean Corpuscular Hemoglobin 30, Mean Corpuscular Hemoglobin Concent 34, Red Cell Distribution Width 14.7, Platelet Count 119, Mean Platelet Volume 10.5, Neutrophils (%) (Auto) 67, Lymphocytes (%) (Auto) 19 , Monocytes (%) (Auto) 9, Eosinophils (%) (Auto) 5, Basophils (%) (Auto) 0, Neutrophils # (Auto) 3.6, Lymphocytes # (Auto) 1.0, Monocytes # (Auto) 0.5, Eosinophils # (Auto) 0.3, Basophils # (Auto) 0.0, Sodium Level 142, Potassium Level 4.0, Chloride Level 108, Carbon Dioxide Level 27, Anion Gap 7, Blood Urea Nitrogen 14, Creatinine 0.69, Estimat Glomerular Filtration Rate > 60, BUN/ Creatinine Ratio 20, Glucose Level 113, Calcium Level 8.6, Erythrocyte Sedimentation Rate 36, Total Creatine Kinase 26, C-Reactive Protein High Sensitivity 0.48, Triglycerides Level 72, Cholesterol Level 130, LDL Cholesterol Direct 86, VLDL Cholesterol 14, HDL Cholesterol 37 03/10/18 05:11: Mean Blood Glucose 126, Hemoglobin A1c 6.0 03/10/18 05:39: White Blood Count 4.7, Red Blood Count 3.84, Hemoglobin 11.6, Hematocrit 34, Mean Corpuscular Volume 90, Mean Corpuscular Hemoglobin 30, Mean Corpuscular Hemoglobin Concent 34, Red Cell Distribution Width 14.5, Platelet Count 102, Mean Platelet Volume 11.4, Neutrophils (%) (Auto) 62, Lymphocytes (%) (Auto) 19 , Monocytes (%) (Auto) 10, Eosinophils (%) (Auto) 9, Basophils (%) (Auto) 0, Neutrophils # (Auto) 2.9, Lymphocytes # (Auto) 0.9, Monocytes # (Auto) 0.5, Eosinophils # (Auto) 0.4, Basophils # (Auto) 0.0, Sodium Level 141, Potassium Level 4.4, Chloride Level 112, Carbon Dioxide Level 22, Anion Gap 7, Blood Urea Nitrogen 12, Creatinine 0.66, Estimat Glomerular Filtration Rate > 60, BUN/ Creatinine Ratio 18, Glucose Level 102, Calcium Level 8.5, Total Bilirubin 1.4, Aspartate Amino Transf (AST/SGOT) 16, Alanine Aminotransferase (ALT/SGPT) 8, Alkaline Phosphatase 66, Total Protein 5.7, Albumin 2.8, Triglycerides Level 57 , Cholesterol Level 134, LDL Cholesterol Direct 93, VLDL Cholesterol 11, HDL Cholesterol 38 03/11/18 09:04: White Blood Count 5.3, Red Blood Count 4.03, Hemoglobin 12.0, Hematocrit 36, Mean Corpuscular Volume 89, Mean Corpuscular Hemoglobin 30, Mean Corpuscular Hemoglobin Concent 33, Red Cell Distribution Width 14.5, Platelet Count 118, Mean Platelet Volume 10.5, Sodium Level 140, Potassium Level 4.1, Chloride Level 109, Carbon Dioxide Level 23, Anion Gap 8, Blood Urea Nitrogen 15, Creatinine 0.81, Estimat Glomerular Filtration Rate > 60, BUN/Creatinine Ratio 19, Glucose Level 172, Calcium Level 9.0 Discussion & Recommendations Patient transferred to acute rehabilitation for her stroke Discharge Home Medications: Active Scripts Active Reported Toviaz (Fesoterodine Fumarate) 4 Mg Tab.sr.24h 4 Mg PO DAILY Simvastatin 20 Mg Tablet 20 Mg PO HS Promethazine-Dm Syrup (D-Methorphan Hb/Prometh HCl) 118 Ml Syrup 2 Tsp PO Q8H PRN Omeprazole 40 Mg Capsule.dr 40 Mg PO DAILY Micardis (Telmisartan) 80 Mg Tablet 80 Mg PO DAILY Metformin HCl 500 Mg Tablet 500 Mg PO BID Furosemide 40 Mg Tablet 40 Mg PO DAILY Fish Oil 1,200 mg Fish Oil (Fish Oil/Dha/Epa) 1 Each Capsule 1,200 Mg PO BID Ocuvite Adult 50 Plus Softgel (C,E,Zinc,Copper 11/Entdv2x/Lut) 1 Each Capsule 1 Cap PO DAILY Instructions to patient/family Please see electronic discharge instructions given to patient. Clinical Quality Measures DVT/VTE Risk/Contraindication: Risk Factor Score Per Nursin RFS Level Per Nursing on Admit: 4+=Very High Stroke: Date of last known well: Mar 08, 2018 Time of last known well: 12:30 ADEN LEE DO Mar 12, 2018 07:39
[2018-03-23] MEDS ORDERED: ASPI-983 PO (15:54)
[2018-03-23] MEDS ORDERED: ATOR40TA PO (15:54)
[2018-03-23] MEDS ORDERED: CLOP75TA28 PO (15:55)
[2018-03-23] MEDS ORDERED: LISI10TA2 PO (15:55)
== END 2018-03-11 10:01 | DRG 65 ==
LOC: EDUNIT# 13:52 → ER 13:53 → 4TH 15:00
PROVIDERS: ADMIT Family Medicine; ATTEND Family Medicine
DX: I63.9 Cerebral infarction, unspecified (principal); R41.0 Disorientation, unspecified; R13.10 Dysphagia, unspecified; R47.1 Dysarthria and anarthria; Z68.43 Body mass index [BMI] 50.0-59.9, adult; R53.1 Weakness; R26.2 Difficulty in walking, not elsewhere classified; I10 Essential (primary) hypertension; E66.9 Obesity, unspecified; R29.700 NIHSS score 0; E11.9 Type 2 diabetes mellitus without complications; D69.6 Thrombocytopenia, unspecified; E78.00 Pure hypercholesterolemia, unspecified; K21.9 Gastro-esophageal reflux disease without esophagitis; R32 Unspecified urinary incontinence; R15.9 Full incontinence of feces; B37.2 Candidiasis of skin and nail; M19.91 Primary osteoarthritis, unspecified site; I49.3 Ventricular premature depolarization; Z86.718 Personal history of other venous thrombosis and embolism; Z86.711 Personal history of pulmonary embolism; Z95.828 Presence of other vascular implants and grafts; Z79.84 Long term (current) use of oral hypoglycemic drugs; Z96.653 Presence of artificial knee joint, bilateral
CPT/HCPCS: 36415; 51702; 70450; 71045; 74230; 80048; 80053; 80061; 81000; 82550; 83036; 84484; 85025; 85027; 85379; 85610; 85652; 85730; 86141; 93005; 93041; 93880

== ENCOUNTER 2018-03-11 09:23 | Inpatient (IN) | payer MEDICARE, OTHER, MEDICAID ==
[~2018-03-11] VITALS: Ht 157.5 cm; Wt 124.7 kg
[~2018-03-11 09:23] MED LIST changes: +C,E,1CAP PO; +CLOP75TA28 PO; +D-ME118S7 PO; +FESO4TAB PO; +FURO40TA4 PO; +METF500T5 PO; +NITR1OIN TOP; +SIMV20TA3 PO; +TELM80TA PO
[2018-03-11 10:00] VITALS: BP 163/74
[2018-03-11] MEDS ORDERED: NITROGLYCERIN 2% OINT 1 GM UNIT DOSE PACKET TOP PRN (10:15)
--- NOTE | 2018-03-11 10:42 | PM&R Post Admission Assessment ---
Post Admission Physician Asses Date seen by provider: Mar 11, 2018 Time seen by provider: 10:30 Admisison Dx: (1) CVA (cerebral vascular accident) The preadmission screen agrees with the post admission assessment that the patient is a good candidate for inpatient rehabilitation. The patient will have a comprehensive program of inpatient rehabilitation with a goal of maximizing level of functional independence prior to discharge home to [facility]. The patient will have PT/OT ninety minutes per day, each discipline, five days a week for 14 days dorcas gait, strengthening, conditioning, balance, ADLs, any patient/family/caregiver training as necessary. Speech therapy to do cognitive assessment and treat as indicated. Rehabilitation nursing to assist with bowel, bladder, skin, medication administration, pain management. Breast Splitter to assist with discharge planning, community reentry. SCD's for DVT prophylaxis. She appears to be well motivated to participate in three hours of therapy a day. She should be able to tolerate three hours of therapy a day from a medical standpoint. She should benefit from the three hours of therapy a day. She has a reasonable discharge plan, reasonable discharge rehabilitation goals and a supportive family. She has various comorbidities that need to be closely monitored with medications and treatments adjusted on a daily basis as needed. These include: DM HTN Barriers to discharge for this patient who had been Modified independent with a walker prior to this are for her to be modified independent to supervision for ADLs and mobility skills prior to discharge home back to [facility], so as to lessen the burden of the caregivers. Risks for this patient include: 1. Fall 2. Fracture 3. DVT 4. Pulmonary embolism 5. Poorly controlled DM 6. Skin breakdown 7. Contractures 8. Poorly controlled pain 9. Urinary retention 10. UTI 11. Respiratory infection 12. Aspiration 13. Poorly controlled HTN Estimated Length of Stay: 14 days Prognosis: Rehab prognosis appears good for goal of discharge back to [facility] HOME modified independent to supervision for ADLs and mobility skills. General: Alert, Oriented X3, Cooperative, No Acute Distress HEENT: Atraumatic, PERRLA, EOMI, Mucous Memb Moist/[place] Neck: Supple, No JVD Lungs: Clear to Auscultation Heart: Regular Rate Abdomen: Normal Bowel Sounds, Soft, No Tenderness, Other (Obese) Extremities: Other (Trace nonpitting edema BLES) Neuro: Other (Strength 3+/5 both upper limbs and 4-/5 both lower limbs) HECTOR BRITT MD Mar 11, 2018 10:41
--- NOTE | 2018-03-11 11:16 | HISTORY AND PHYSICAL ---
DATE OF SERVICE: 03/11/2018 CHIEF COMPLAINT: Difficulty with walking. HISTORY OF PRESENT ILLNESS: The patient is a 77-year-old female who lives at assisted living facility in [place] who presented to ER by EMS at [facility] on 03/08/2018 due to difficulty with walking and confusion. She was admitted to the service or Dr. Cortez, PCP. A CT scan of the brain was negative; however, the patient was felt empirically to have sustained a stroke. Therapies were begun. The patient was felt to be appropriate for inpatient rehabilitation unit. The patient had been modified independent for mobility with a walker and for her ADLs prior to this. Currently, she is standby assist for grooming, mod assist for bathing and lower body dressing, min assist for upper body dressing and transfers to from wheelchair to bathroom and wheelchair to bed. She was seen by speech therapy and had a swallow assessment with MDS; however, she has been advanced to a regular diet at this point. PAST MEDICAL HISTORY: Type 2 diabetes mellitus on metformin, osteoarthritis, DVT, hypertension, hypercholesterolemia, and obesity.Thrombocytopenia PAST SURGICAL HISTORY: Carson filter placement, left shoulder surgery, bilateral total knee replacements. ALLERGIES: PENICILLIN, CODEINE, ASPIRIN. FAMILY HISTORY: Noncontributory. SOCIAL HISTORY: Has lived for about a year in assisted living facility. She has children who live in this area -one in [facility]. REVIEW OF SYSTEMS: A 10-point review of systems significant for weakness, arthritic pain. MEDICATIONS: Plavix 75 mg p.o. daily, nitroglycerin one inch topically q. 24 hours p.r.n. systolic blood pressure above 210. Ocuvite one tablet p.o. daily, promethazine DM syrup 2 spoonfuls p.o. q.8 hours p.r.n. cough, Toviaz 4 mg p.o. daily, fish oil 1200 mg p.o. b.i.d., furosemide 40 mg p.o. daily, metformin 500 mg p.o. b.i.d., omeprazole 40 mg p.o. daily, simvastatin 20 mg p.o. at bedtime, Micardis 80 mg p.o. daily. PHYSICAL EXAMINATION: GENERAL: Significant for a pleasant obese female, sitting in chair, in no acute distress. VITAL SIGNS: She is afebrile, pulse 64, respirations 18, blood pressure 148/66. O2 sat 99% on room air. HEENT: Vision, speech, hearing grossly intact. No oral lesion is noted. NECK: Supple without mass. HEART: Regular rhythm. CHEST: Clear. ABDOMEN: Obese, soft, nontender. Bowel sounds present. EXTREMITIES: Trace edema both ankles, no calf tenderness. MUSCULOSKELETAL: The patient has functional active range of motion in all 4 limbs. Strength 3+/5 both upper limbs. Strength in both lower limbs is 4-/5. Sensation is grossly intact to touch. Cognition grossly intact. She does wear glasses and she is right hand dominant. IMPRESSION: 1. CVA with generalized weakness, gait instability. 2. Osteoarthritis, status post bilateral total knee replacements. 3. Hypertension, controlled with medication. 4. Diabetes mellitus type 2, controlled with medication. 5. History of DVT status post Nava filter placement. 6. Status post left shoulder surgery. 7. Thrombocytopenia 8. Mild anemia PLAN: The patient will have a comprehensive program of inpatient rehabilitation with goal of maximizing level of functional independence prior to discharge back to assisted living facility. The patient will have PT, OT daily, 90 minutes per day each discipline, 5 days a week for 10 days with a goal of discharging back to assisted living facility at prior level of function or better. Speech therapy to reassess cognitive status and treat as indicated. Please see post-admission physician evaluation, which is a separate document for details and plan of care. Rehabilitation nursing assist with bowel, bladder, skin, wound care, medication administration, pain management and social work msw with discharge planning, community reentry. Follow up with Dr. Cortez, PCP as per his schedule. Check CBC in a.m. as per Dr. Cortez's request. Continue current medications. Monitor Accu-Cheks b.i.d. and adjust medications as necessary. ESTIMATED LENGTH OF STAY: 10 to 14 days. PROGNOSIS: Rehab prognosis appears good for above goals in mind, specifically, returning back to assisted living facility. Modified independent for ADLs and mobility skills. DIET: Carb consistent. CODE STATUS: Full code. Job ID: [id number] DocumentID: [id number] Dictated Date: 03/11/2018 10:35:00 Buffer Nickel Date: 03/11/2018 11:16:38 Dictated By: HECTOR BRITT MD [facility]
--- NOTE | 2018-03-11 11:44 | Physical Therapy Evaluation ---
PT Evaluation-General Medical Diagnosis Admission Date Mar 11, 2018 at 10:00 Medical Diagnosis: CVA Onset Date: Mar 08, 2018 Therapy Diagnosis Therapy Diagnosis: weakness; abn gait Height/Weight Height (Feet): 5 Height (Inches): 2.00 Weight (Pounds): 275 Weight (Ounces): 0.0 Precautions Precautions/Isolations: Standard Precautions Weight Bear Status Right Lower Extremity: Right Full Weight Bearing Left Lower Extremity: Left Full Weight Bearing Referral Physician: Galo Reason for Referral: Evaluation/Treatment Medical History Pertinent Medical History: DM, HTN Current History Pt admitted to acute earlier this week with confusion and possible CVA. Transferred to ARU for continued functional strength and mobility to allow her to return to the [facility]. Social History Home: Assisted Living (Since May 2017) Current Living Status: Entry Into Home: Level Entry Prior/Core FIM Prior Level of Function Functional Coleman Measure 0=Not Assessed/NA 4=Minimal Assistance 1=Total Assistance 5=Supervision or Setup 2=Maximal Assistance 6=Modified Coleman 3=Moderate Assistance 7=Complete Coleman Bed Mobility: 0 (NA; pt does not have a bed in her [facility].) Transfers (B,C,W/C) (FIM): 6 Gait: 6 (FWW) Pt able to walk throughout the facility without assist. PT Evaluation-Current Subjective Agreeable to PT. No complaints. Reports she is anxious to return to her [facility]. Pain Numeric Pain Scale: 0-No Pain Location: No Pain Reported Objective Patient Orientation: Person, Place, Time, Situation Problem Solving: Good ROM/Strength ROM Lower Extremities WNL Strenght Lower Extremities Strength is grossly 4/5 throughout. Integumentary/Posture Integumentary Refer to nursing notes.. Bowel Incontinence: No Bladder Incontinence: Yes (stress incontinence) Posture normal and symmetrical Neuromuscular (Tone, Coordination, Reflexes) intact and functional Sensory Vision: Wears Glasses Hearing: Functional Hand Dominance: Right Sensation Right Lower Extremit: Intact Sensation Left Lower Extremity: Intact Transfers Functional Coleman Measure 0=Not Assessed/NA 4=Minimal Assistance 1=Total Assistance 5=Supervision or Setup 2=Maximal Assistance 6=Modified Coleman 3=Moderate Assistance 7=Complete IndependenceIRFPAI Quality Coding Scale 6 Independent with activity with or without an assistive device 5 Patient requires set up or clean up by helper. Patient completes activity by themselves 4 Supervision or touching assist (CGA). [place] provide cues , steadying assist 3 The helper provides less than half the effort to complete the activity 2 The helper provides more than half the effort to complete the activity 1 Dependent. The helper does all the effort to complete an activity 7 Patient refused to complete or attempt activity 9 The patient did not perform the activity before the current illness or injury 88 Not attempted due to Medical conditions or safety concerns Transfers (B, C, W/C) (FIM): 3 Roll Left to Right (QC): 4 Supine to/from Sit: 3 (assist wth both legs and trunk) Sit to/from Stand: 4 (min assist ot stand with cues for hand placement) Sit to Lying (QC): 3 Lying to Sitting/Side of Bed(Q: 3 Sit to Stand (QC): 4 Chair/Paa-cr-Iclfj Xfer(QC): 4 Car Transfer (QC): 3 (mod assist to stand from the chair) Gait Does the Patient Walk?: Yes Mode of Locomotion: Walk Anticipated Mode of Locomotion: Walk Gait (FIM): 2 Distance (FIM): 4=762-36 ft Walk 10 feet (QC): 4 Walk 50 ft with 2 Turns(QC): 4 Walk 150 ft (QC): 88 Walking 10ft/uneven surface-QC: 4 Distance: 125 ft Gait Level of Assist: 4 (CGa for safety) Gait Assistive Device: FWW Comments/Gait Description slow gait and tends to keep the walker too far ahead. Wheelchair Training Does the Pt Use a Wheelchair?: No Stairs Stairs (FIM): 2 #of Steps: 1 Level of Assist: 4 1 Step (curb) (QC): 4 4 Steps (QC): 88 Assistive Device: Walker 12 Steps (QC): 88 Balance Sitting Static: Good Sitting Dynamic: Good Standing Static: Fair Standing Dynamic: Fair Picking up an Object (QC): 88 (unsafe to attempt) Treatment Gait training with FWW with cues for safety and sequencing as well as posture. Gait 100 ft x 4 reps. Nu step x 10 minutes to increase LE strength and functional activity tolerance to progress functional mobility. Assessment/Needs Pt presents post DX of CVA with decreased functional mobility and she is not able to return to her [facility] just yet. She does not appear to have a specific weakness on one side but is generally weak with decreased ability to move about . She will benefit from skilled PT for aggressive strength and mobility to allow her to return to the [facility] at her PLOF. Rehab Potential: Good PT Short Term Goals Short Term Goals Time Frame: Mar 18, 2018 Transfers (B,C,W/C) (FIM): 5 Gait (FIM): 5 Distance (FIM): 3=150 ft Gait Assistive Device: FWW PT Scout Leaser Goals Scout Leaser Goals PT Scout Leaser Goals Time Frame: Mar 26, 2018 Transfers (B,C,W/C) (FIM): 6 Sit to Lying (QC): 6 Lying-Sitting on Side/Bed(QC): 6 Sit to Stand (QC): 6 Roll Left to Right (QC): 6 Chair/Fbi-vi-Lrpbx Xfer(QC): 6 Car Transfer (QC): 5 Does the Patient Walk: Yes Gait (FIM): 6 Gait distance (FIM): 3=150 ft Walk 10 feet (QC): 6 Walk 10ft-Uneven Surface(QC): 6 Walk 50ft with 2 Turns (QC): 6 Walk 150 ft (QC): 6 Gait Level of Assist: 6 Gait Assistive Device: FWW Stairs (FIM): 2 # of Steps: 4 1 Step (curb) (QC): 5 4 Steps (QC): 4 12 Steps (QC): 88 Picking up an Object (QC): 88 PT Plan Problem List Problem List: Activity Tolerance, Functional Strength, Safety, Balance, Gait, Transfer, Bed Mobility Treatment/Plan Treatment Plan: Continue Plan of Care Treatment Plan: Bed Mobility, Education, Functional Activity Mary Ann, Functional Strength, Group Therapy, Gait, Safety, Therapeutic Exercise, Transfers Treatment Duration: Mar 25, 2018 Frequency: At least 5 of 7 days/Wk (IRF) Estimated Hrs Per Day: 1.5 hours per day Patient and/or Family Agrees t: Yes Safety Risks/Education Patient Education: Transfer Techniques, Safety Issues Teaching Recipient: Patient Teaching Methods: Discussion Response to Teaching: Reinforcement Needed Discharge Recommendations Therapy D/C Recommendations: Physical Therapy Home Care Time/GCodes Time In: 1130 Time Out: 1200 (1330 to 1425) Total Billed Treatment Time: 85 Total Billed Treatment visit EVM 30 EX 10 FA 30 GT 15 MICHAELA ARRIAZA PT Mar 11, 2018 11:44
--- NOTE | 2018-03-11 13:48 | ST Cognitive Linguistic Eval ---
Speech Evaluation-General Medical Diagnosis CVA Onset Date: Mar 08, 2018 Therapy Diagnosis Therapy Diagnosis: Cognitive Linguistic Skills at PLOF Precautions Precautions/Isolations: Standard Precautions Referral Referring Physician: Dr. Willie Rosenthal Cognitive Evaluation Medical History Pertinent Medical History: DM, HTN Current History The patient was recently admitted to [facility] with increased confusion and memory deficits. The patient was diagnosed with an acute CVA and transferred to the inpatient rehabilitation floor for intensive therapy. Throughout the patient's acute stay, the confusion cleared. Per patient, she is functioning at her baseline status. Reviewed History: Yes Social History Home: Assisted Living Current Living Status: Alone Speech PLF-Current Status Prior Level of Function The patient denied current challenges with her speech, language, or cognition. Upon admission, the patient displayed significant confusion, however, per patient, these deficits have cleared to her baseline status. Subjective The clinician aided the patient with ambulating back to her room from her recently completed OT evaluation/session. The patient greeted the clinician appropriately and was agreeable to participation in the cognitive evaluation. The patient is aware of her recent confusion, however, states the confusion has cleared completely to baseline. Language Eval: Auditory Comprehends Simple Yes/No Ques: Functional Indent/Objects Multiple Loyn: Functional Follows 1-Step Commands: Functional Follows General Conversations: Functional Language Eval: Verbal Language Completes Spontaneous Greeting: Functional Produces Auto, Serial Info: Functional Imitates Simple Words/Phrases: Functional Word Finding: Mild Requests Basic Needs: Functional States Basic Personal Info: Functional Expresses Complex Ideas: Functional Language Evaluation: Reading Comprehends Single Nouns: Functional Follows Simple Written Direct: Functional Comprehends Multiple Sentences: Functional Cognitive Patient Orientation The patient is oriented to self, location, month, day of week, and year. Objective Cognitive Domain Attention: WNL Memory: WNL Problem Solving: Mild (Intermittent verbal prompting.) Objective Impression The patient demonstrated cognitive linguistic skills grossly within normal levels and consistent with her prior level of function. If the patient's confusion returns or she experiences a decline in cognition, please re-consult speech pathology for re-evaluation and treatment. Communication/Social Cognition Comprehension: 5 Expression: 6 Social Interaction: 7 Problem Solvin Memory: 6 Speech Patient Assess Expression of Ideas/Wants: Expression (4) Understanding Verbal Content: Understands (4) Brief Interview-Mental Status: Yes Repetition of Three Words: Three (3) Temporal Orientation: Year: Correct (3) Temporal Orientation: Month: Accurate within 5 days(2) Temporal Orientation: Day: Correct (1) Recall : Wear to say "Sock": Yes,after cueing (1) Recall : Color: Yes, no cue required (2) Recall : Bed: Yes, no cue required (2) Speech-Plan Treatment Plan Speech Therapy Treatment Plan: Discontinue ST No ST warranted. The patient is functioning at prior level of function. Frequency: Modified Program (IRF) (No ST warranted. The patient is functioning at prior level of function.) Estimated Hrs Per Day: Other Rehab Potential: Fair Safety Risks/Education Teaching Recipient: Patient Teaching Methods: Discussion Response to Teaching: Verbalize Understanding Education Topics Provided: Results, Recommendations, Plan of Care Time Speech Therapy Time In: 11:00 Speech Therapy Time Out: 11:35 Total Billed Time: 35 Billed Treatment Time 1, SHIVANI WILSON Mar 11, 2018 13:48
--- NOTE | 2018-03-11 14:37 | Occupational Therapy Eval ---
OT Evaluation-General/PLF Medical Diagnosis Admission Date Mar 11, 2018 at 10:00 Medical Diagnosis: CVA Onset Date: Mar 08, 2018 Therapy Diagnosis Therapy Diagnosis: Decreased ADL skills Height/Weight Height (Feet): 5 Height (Inches): 2.00 Weight (Pounds): 275 Weight (Ounces): 0.0 Precautions Precautions/Isolations: Standard Precautions Weight Bear Status Weight Bearing Restriction: Weight Bearing/Tolerated Referral Physician: Galo Referral Reason: Activity Tolerance, Self Care, Evaluation/Treatment, Strengthening/ROM Medical History Pertinent Medical History: DM, HTN Current History Pt. became confused and ill. Brought to ED through EMS. Reviewed History: Yes Social History Home: Assisted Living (Since May 2017) Current Living Status: Alone Entry Into Home: Level Entry ADL-Prior Level of Function ADL PLOF Comments Pt. states that she was able to bathe and dress self at assisted living. Is able to take herself to meals. DME/Equipment: Bath Chair, Tub/Shower DME/Equipment Comments Pt. has a walker. Drive Self: No OT Current Status Subjective No pain reported. Appearance Pt. is up in chair. Agrees to work with OT. Mental Status/Objective Patient Orientation: Person, Place Current Glasses/Contacts: Yes Hand Dominance: Right Upper Extremity ROM Pt. demonstrates approximately 90 degrees shoulder flexion, which is WFL for her. Upper Extremity Strength 3+/5 distal UE strength. ADL-Treatment Functional Garza Measure 0=Not Assessed/NA 4=Minimal Assistance 1=Total Assistance 5=Supervision or Setup 2=Maximal Assistance 6=Modified Garza 3=Moderate Assistance 7=Complete IndependenceIRFPAI Quality Coding Scale 6 Independent with activity with or without an assistive device 5 Patient requires set up or clean up by helper. Patient completes activity by themselves 4 Supervision or touching assist (CGA). [place] provide cues , steadying assist 3 The helper provides less than half the effort to complete the activity 2 The helper provides more than half the effort to complete the activity 1 Dependent. The helper does all the effort to complete an activity 7 Patient refused to complete or attempt activity 9 The patient did not perform the activity before the current illness or injury 88 Not attempted due to Medical conditions or safety concerns Grooming (FIM): 5 (SBA to bruch hair.) Oral Hygiene (QC): 4 Upper Body Dressing (FIM): 5 (SBA to don shirt. Pt. does not wear bra.) Upper Body Dressing (QC): 4 Lower Body Dressing (FIM): 3 (Pt. requires assistance to thread bilateral LE into pants and underwear.) Lower Body Dressing (QC): 3 On/Off Footwear (QC): 4 Toileting (FIM): 5 Toileting Hygiene (QC): 5 Transfers (B, C, W/C) (FIM): 5 Toilet/Commode Transfer (FIM): 5 Toilet Transfer (QC): 5 Other Treatments Pt. declined showering, as she had already showered yesterday, and "cleaned up" today. Pt. does agree to get dressed. After ADL treatment in room, pt. ambulated to therapy gym with SBA. Pt. completed fine motor task of nut/bolt activity. Pt. able to unscrew nuts/bolts with increased time needed. Began to ambulate back to room and speech therapy completed task. Education OT Patient Education: Correct positioning, Exercise program, Modified ADL techniques, Progress toward Goal/Update tx plan, Purpose of tx/functional activities, Reviewed precautions, Rehab process, Transfer techniques Teaching Recipient: Patient Teaching Methods: Demonstration, Discussion Response to Teaching: Verbalize Understanding, Return Demonstration OT Short Term Goals Short Term Goals Time Frame: Mar 18, 2018 Eating(FIM): 5 Grooming(FIM): 5 Bathing(FIM): 5 Upper Body Dressing(FIM): 5 Lower Body Dressing(FIM): 5 Toileting(FIM): 5 Transfers (B,C,W/C) (FIM): 5 Toilet/Commode Transfer(FIM): 5 Shower Transfer(FIM): 5 Additional Short Term Goals: 1-Demonstrate ADL Tasks, 2-Verbalize Understanding , 3-ImproveStrength/Mary Ann 1=Demonstrate adherence to instructed precautions during ADL tasks. 2=Patient will verbalize/demonstrate understanding of assistive devices/ modifications for ADL. 3=Patient will improve strength/tolerance for activity to enable patient to perform ADL's. OT Flap Curer Goals Mcfp Goals Time Frame: Mar 25, 2018 Eating (FIM): 6 Eating (QC): 6 Groomin Oral Hygiene (QC): 6 Bathing(FIM): 5 Shower/Bathe Self (QC): 5 Upper Body Dressing(FIM): 6 Upper Body Dressing (QC): 6 Lower Body Dressing(FIM): 6 Lower Body Dressing (QC): 6 On/Off Footwear (QC): 6 Toileting(FIM): 6 Toileting Hygiene (QC): 6 Transfers (B,C,W/C) (FIM): 6 Toilet/Commode Transfer(FIM): 6 Toilet/Commode Transfer (QC): 6 Shower Transfer(FIM): 5 Additional Goals: 1-Demonstrate ADL Tasks, 2-Verbalize Understanding, 3- ImproveStrength/Mary Ann 1=Demonstrate adherence to instructed precautions during ADL tasks. 2=Patient will verbalize/demonstrate understanding of assistive devices/ modifications for ADL. 3=Patient will improve strength/tolerance for activity to enable patient to perform ADL's. OT Education/Plan Problem List/Assessment Assessment: Decreased Activ Tolerance, Impaired I ADL's, Impaired Self-Care Skills, Restricted Funct UE ROM Discharge Recommendations Plan/Recommendations: Continue POC Therapy D/C Recommendations: Assisted Living, Occupational Therapy Home Care Comment Equipment needs to be determined. Treatment Plan/Plan of Care Treatment,Training & Education: Yes Patient would benefit from OT for education, treatment and training to promote independence in ADL's, mobility, safety and/or upper extremity function for ADL' s. Plan of Care: ADL Retraining, Functional Mobility, UE Funct Exercise/Act Treatment Duration: Mar 25, 2018 Frequency: At least 5 of 7 days/Wk (IRF) Estimated Hrs Per Day: 1.5 hours per day Rehab Potential: Good Time/GCodes Start Time: 10:00 Stop Time: 11:00 Total Time Billed (hr/min): 60 Billed Treatment Time 1, EVM x 15minutes, ADL x 30minutes, FA x 15minutes DUKE PRAJAPATI OT Mar 11, 2018 14:37
--- NOTE | 2018-03-11 14:52 | Occupational Ther Daily Note ---
OT Current Status-Daily Note Subjective Pt alert, sitting in recliner. Pt agrees to therapy. No c/o pain at this time. Mental Status/Objective Patient Orientation: Person, Place, Time, Situation Functional [place] Measure 0=Not Assessed/NA 4=Minimal Assistance 1=Total Assistance 5=Supervision or Setup 2=Maximal Assistance 6=Modified [place] 3=Moderate Assistance 7=Complete [place] ADL-Treatment Functional [place] Measure 0=Not Assessed/NA 4=Minimal Assistance 1=Total Assistance 5=Supervision or Setup 2=Maximal Assistance 6=Modified [place] 3=Moderate Assistance 7=Complete IndependenceIRFPAI Quality Coding Scale 6 Independent with activity with or without an assistive device 5 Patient requires set up or clean up by helper. Patient completes activity by themselves 4 Supervision or touching assist (CGA). Busby provide cues , steadying assist 3 The helper provides less than half the effort to complete the activity 2 The helper provides more than half the effort to complete the activity 1 Dependent. The helper does all the effort to complete an activity 7 Patient refused to complete or attempt activity 9 The patient did not perform the activity before the current illness or injury 88 Not attempted due to Medical conditions or safety concerns Lower Body Dressing (FIM): 4 (Assist to get toes unstuck from pants then able to complete with SBA.) Lower Body Dressing (QC): 3 Toileting (FIM): 4 (Using FWW, grabbars and BSC for toileting. Assist to cleanse buttocks after bowel movement. Pt able to manipulate clothing.) Toileting Hygiene (QC): 3 Toilet/Commode Transfer (FIM): 5 (SBA using FWW, grabbars and BSC to complete transfer.) Toilet Transfer (QC): 4 Pt would benefit from toileting tongs. Other Treatment Pt ambulated to therapy gym using FWW. Completed arm bike 10 min duration at 15 huang resistance to increase strength and activity tolerance for daily functional tasks. PT took over care of pt in therapy gym. All needs met. OT Short Term Goals Short Term Goals Time Frame: Mar 18, 2018 Eating(FIM): 5 Grooming(FIM): 5 Bathing(FIM): 5 Upper Body Dressing(FIM): 5 Lower Body Dressing(FIM): 5 Toileting(FIM): 5 Transfers (B,C,W/C) (FIM): 5 Toilet/Commode Transfer(FIM): 5 Shower Transfer(FIM): 5 Additional Short Term Goals: 1-Demonstrate ADL Tasks, 2-Verbalize Understanding , 3-ImproveStrength/Mary Ann 1=Demonstrate adherence to instructed precautions during ADL tasks. 2=Patient will verbalize/demonstrate understanding of assistive devices/ modifications for ADL. 3=Patient will improve strength/tolerance for activity to enable patient to perform ADL's. OT Usp Goals Chlorine Cell Tender Goals Time Frame: Mar 25, 2018 Eating (FIM): 6 Eating (QC): 6 Groomin Oral Hygiene (QC): 6 Bathing(FIM): 5 Shower/Bathe Self (QC): 5 Upper Body Dressing(FIM): 6 Upper Body Dressing (QC): 6 Lower Body Dressing(FIM): 6 Lower Body Dressing (QC): 6 On/Off Footwear (QC): 6 Toileting(FIM): 6 Toileting Hygiene (QC): 6 Transfers (B,C,W/C) (FIM): 6 Toilet/Commode Transfer(FIM): 6 Toilet/Commode Transfer (QC): 6 Shower Transfer(FIM): 5 Additional Goals: 1-Demonstrate ADL Tasks, 2-Verbalize Understanding, 3- ImproveStrength/Mary Ann 1=Demonstrate adherence to instructed precautions during ADL tasks. 2=Patient will verbalize/demonstrate understanding of assistive devices/ modifications for ADL. 3=Patient will improve strength/tolerance for activity to enable patient to perform ADL's. OT Education/Plan Discharge Recommendations Plan/Recommendations: Continue POC Treatment Plan/Plan of Care Patient would benefit from OT for education, treatment and training to promote independence in ADL's, mobility, safety and/or upper extremity function for ADL' s. Plan of Care: ADL Retraining, Functional Mobility, UE Funct Exercise/Act Treatment Duration: Mar 25, 2018 Frequency: At least 5 of 7 days/Wk (IRF) Estimated Hrs Per Day: 1.5 hours per day Rehab Potential: Good Time/GCodes Start Time: 13:00 Stop Time: 13:30 Total Time Billed (hr/min): 30 Billed Treatment Time 1 visit-ADL 1 (20 min) EX 1 (10 min) MICHAELA STUBBS Mar 11, 2018 14:52
[2018-03-11 16:36] VITALS: BP 188/73
[2018-03-11] MEDS: metFORMIN 500 MG (GLUCOPHAGE) TAB PO SCH (17:56)
[2018-03-11] MEDS: SIMvastatin 20 MG (ZOCOR) TAB PO SCH (20:30)
[2018-03-12 05:07] VITALS: BP 153/83
[2018-03-12 05:33] LABS: HEMOGLOBIN 11.2 G/DL (11.5-16.0); MEAN PLATELET VOLUME 10.3 FL (7.4-10.4); RED BLOOD COUNT 3.8 10^6/uL (4.35-5.85); RED CELL DISTRIBUTION WIDTH 14.8 % (10.0-14.5); WHITE BLOOD COUNT 4.6 10^3/uL (4.3-11.0)
[2018-03-12] MEDS: PANTOPRAZOLE 40 MG (PROTONIX) TAB PO SCH (05:43)
[2018-03-12] MEDS: metFORMIN 500 MG (GLUCOPHAGE) TAB PO SCH ×2 (05:43→17:01)
[2018-03-12 07:36] VITALS: BP 139/62
--- NOTE | 2018-03-12 07:53 | PM & R (SOAP) Progress Note ---
Subjective This was a face to face visit with the patient. Date Seen by Provider: Mar 12, 2018 Time Seen by Provider: 07:40 Subjective/Events-last exam Patient was seen in her room this AM with 2 RNS patient had some dysarthria and poor responsiveness for a brief period of time while being awakened discussed with DR Cortez Patient on Plavix Patient has thrombocytopenia.Patient min assist for transfers Objective Physician Exam Last Set of Vital Signs Vital Signs Date Time Temp Pulse Resp B/P (MAP) Pulse Ox O2 Delivery O2 Flow Rate FiO2 03/12/18 07:36 97.8 65 18 139/62 (87) 97 Room Air Capillary Refill : I&O Intake and Output 03/12/18 00:00 Daily Weight Change No General: Alert, Oriented X3, Cooperative, No Acute Distress HEENT: Atraumatic, PERRLA, EOMI, Mucous Memb Moist/[place] Neck: Supple, No JVD Lungs: Clear to Auscultation Heart: Regular Rate Abdomen: Normal Bowel Sounds, Soft, No Tenderness, Other Extremities: Other Neuro: Other Results Lab Data Laboratory Tests 03/11/18 10:55: Glucometer 204H 03/11/18 16:32: Glucometer 143H 03/12/18 05:19: Glucometer 113H 03/12/18 05:20: White Blood Count 4.6, Red Blood Count 3.80L, Hemoglobin 11.2L, Hematocrit 34L, Mean Corpuscular Volume 89, Mean Corpuscular Hemoglobin 29, Mean Corpuscular Hemoglobin Concent 33, Red Cell Distribution Width 14.8H, Platelet Count 91L, Mean Platelet Volume 10.3 Assessment/Plan Assessment and Plan CVa with generalized weakness and gait instability TIA HTN controlled thrombocytopenia labs noted Anemia labs noted DM 2 controlled with med HX of DVT s/p [place] filter p[lacement S/P Left Shoulder surgery Plan Continue PT/OT F/U with DR Cortez re any further testing Team Conference next week 03-17-18 Trend labs Appreciate PT/OT and ST notes (1) CVA (cerebral vascular accident) Co-Morbidities that are continuing to impact the rehab process: (include details ) HECTOR BRITT MD Mar 12, 2018 07:53
--- NOTE | 2018-03-12 08:22 | Consultation ---
History of Present Illness History of Present Illness Patient Consulted On(camila/time) 03/12/18 08:17 Time Seen by Provider: 08:15 History of Present Illness Patient lives in assisted living setting. Patient had confusion and trouble talking.. Patient brought out to the emergency room. Patient admitted. Patient was confused, unable to communicate, and failed swallowing study. Patient did improve dramatically and was able to speak and swallow. Patient's confusion about better. Patient in rehabilitation. Patient this morning had episode of problems speaking. Patient states this is due to not sleeping last night. MRI was ordered but patient was too big to get in to the MRI machine. Surgeries 2 knee replacement, left shoulder, heel and [place] filter Allergies and Home Medications Allergies Coded Allergies: Penicillins (Unverified Allergy, Unknown, 12/21/06) codeine (Unverified Allergy, Unknown, 12/21/06) aspirin (Verified Adverse Reaction, Unknown, NAUSEA, 10/07/16) Home Medications C,E,Zinc,Copper 11/Psxxn9b/Lut 1 Each Capsule, 1 CAP PO DAILY, (Reported) D-Methorphan Hb/Prometh HCl 118 Ml Syrup, 2 TSP PO Q8H PRN for COUGH, (Reported) Fesoterodine Fumarate 4 Mg Tab.sr.24h, 4 MG PO DAILY, (Reported) Fish Oil/Dha/Epa 1 Each Capsule, 1,200 MG PO BID, (Reported) Furosemide 40 Mg Tablet, 40 MG PO DAILY, (Reported) Metformin HCl 500 Mg Tablet, 500 MG PO BID, (Reported) Omeprazole 40 Mg Capsule.dr, 40 MG PO DAILY, (Reported) Simvastatin 20 Mg Tablet, 20 MG PO HS, (Reported) Telmisartan 80 Mg Tablet, 80 MG PO DAILY, (Reported) Patient Home Medication List Home Medication List Reviewed: Yes Past [id number]-[id number] Hx Patient Social History Alcohol Use: Denies Use Recreational Drug Use: No Smoking Status: Never a Smoker Recent Foreign Travel: No Contact w/Someone Who Travel: No Recent Infectious Disease Expo: No Recent Hopitalizations: Yes Immunizations Up To Date Tetanus Booster (TDap): More than 5yrs Date of Pneumonia Vaccine: Aug 07, 2016 Date of Influenza Vaccine: Jun 09, 2016 Seasonal Allergies Seasonal Allergies: No Past Medical History Surgeries: Yes (BILAT TKR, TIEN FILTER, LEFT SHOULDER SURGERY, BONE SPUR LEFT HEEL) Joint Replacement, Orthopedic Respiratory: No Cardiac: Yes (tien filter placement) Deep Vein Thrombosis, High Cholesterol, Hypertension Neurological: Yes Reproductive Disorders: No Female Reproductive Disorders: Denies Sexually Transmitted Disease: No HIV/AIDS: No Genitourinary: No Gastrointestinal: Yes Gastroesophageal Reflux Musculoskeletal: Yes (BONE SPUR REMOVAL LEFT FOOT) Arthritis Endocrine: Yes (DM TYPE II) Diabetes, Non-Insulin dep HEENT: No Cancer: No Psychosocial: No Integumentary: No Blood Disorders: Yes (BLOOD CLOT LEG TO LUNG 2000) Family Medical History Myocardial infarction No Pertinent Family Hx Review of Systems-General Constitutional: no symptoms reported EENTM: no symptoms reported Respiratory: no symptoms reported Cardiovascular: no symptoms reported Gastrointestinal: no symptoms reported Genitourinary: no symptoms reported Physical Exam-General Problems Physical Exam Vital Signs Vital Signs - First Documented 03/11/18 10:00 Temp 97.6 Pulse 62 Resp 22 B/P (MAP) 163/74 (103) Pulse Ox 97 O2 Delivery Room Air Capillary Refill : General Appearance: WD/WN, no apparent distress, obese Eyes: Bilateral Eye Normal Inspection HEENT: normal ENT inspection Neck: non-tender, full range of motion Respiratory: chest non-tender, lungs clear, normal breath sounds, no respiratory distress, no accessory muscle use Cardiovascular: regular rate, rhythm, no murmur Gastrointestinal: non tender, soft Assessment/Plan Assessment/Plan Admission Diagnosis/Plan Sheet CVA history. Diabetes. Dysphagia. Dysarthria. Diabetes. Obesity. Hypertension Admission Status: Inpatient Order (span 2 midnights) Reason for Inpatient Admission: CVA. Dysphagia. Dysarthria. Diabetes. Clinical Quality Measures DVT/VTE Risk/Contraindication: Risk Factor Score Per Nursin RFS Level Per Nursing on Admit: 4+=Very High ADEN LEE DO Mar 12, 2018 08:22
[2018-03-12] MEDS: TELMISARTAN 40 MG (MICARDIS) TAB PO SCH (09:31)
[2018-03-12] MEDS: CLOPIDOGREL 75 MG (PLAVIX) TABLET PO SCH (09:31)
[2018-03-12] MEDS: FUROSEMIDE 40 MG (LASIX) TAB PO SCH (09:31)
--- NOTE | 2018-03-12 10:59 | Physical Therapy Daily Note ---
PT Daily Note-Current Subjective Patient in therapy gym pre tx, agrees to PT, no complaints of pain. Appearance Patient in recliner post tx with nurse call, phone, tray, all needs met. Chair alarm on. Mental Status Patient Orientation: Person, Place, Situation Transfers Functional [place] Measure 0=Not Assessed/NA 4=Minimal Assistance 1=Total Assistance 5=Supervision or Setup 2=Maximal Assistance 6=Modified [place] 3=Moderate Assistance 7=Complete IndependenceIRFPAI Quality Coding Scale 6 Independent with activity with or without an assistive device 5 Patient requires set up or clean up by helper. Patient completes activity by themselves 4 Supervision or touching assist (CGA). [place] provide cues , steadying assist 3 The helper provides less than half the effort to complete the activity 2 The helper provides more than half the effort to complete the activity 1 Dependent. The helper does all the effort to complete an activity 7 Patient refused to complete or attempt activity 9 The patient did not perform the activity before the current illness or injury 88 Not attempted due to Medical conditions or safety concerns Transfers (B, C, W/C) (FIM): 5 Sit to/from Stand: 5 Bed to/from Chair: 5 Patient needs cues for using arm rest to push up from when standing. Weight Bearing Right Lower Extremity: Right Full Weight Bearing Left Lower Extremity: Left Full Weight Bearing Gait Training Gait (FIM): 5 Distance: 200'x2, 150' Gait Level of Assist: 5 Gait Persons Needed: 1 Gait Assistive Device: FWW Patient ambulates slowly but steady, no LOB. Exercises LAQ alternating for 5 min NuStep Minutes: 15 NuStep Workload: 4 Treatments ambulation, transfers, functional strengthening Assessment Current Status: Fair Progress improving endurance and ambulation PT Short Term Goals Short Term Goals Time Frame: Mar 18, 2018 Transfers (B,C,W/C) (FIM): 5 Gait (FIM): 5 Distance (FIM): 3=150 ft Gait Assistive Device: FWW PT Associate Director Of Nursing Goals Shelter Goals PT Associate Director Of Nursing Goals Time Frame: Mar 26, 2018 Transfers (B,C,W/C) (FIM): 6 Sit to Lying (QC): 6 Lying-Sitting on Side/Bed(QC): 6 Sit to Stand (QC): 6 Roll Left to Right (QC): 6 Chair/Srt-mj-Hgcmx Xfer(QC): 6 Car Transfer (QC): 5 Does the Patient Walk: Yes Gait (FIM): 6 Gait distance (FIM): 3=150 ft Walk 10 feet (QC): 6 Walk 10ft-Uneven Surface(QC): 6 Walk 50ft with 2 Turns (QC): 6 Walk 150 ft (QC): 6 Gait Level of Assist: 6 Gait Assistive Device: FWW Stairs (FIM): 2 # of Steps: 4 1 Step (curb) (QC): 5 4 Steps (QC): 4 12 Steps (QC): 88 Picking up an Object (QC): 88 PT Plan Problem List Problem List: Activity Tolerance, Functional Strength, Safety, Balance, Gait, Transfer, Bed Mobility, ROM Treatment/Plan Treatment Plan: Continue Plan of Care Treatment Plan: Bed Mobility, Education, Functional Activity Mary Ann, Functional Strength, Group Therapy, Gait, Safety, Therapeutic Exercise, Transfers Treatment Duration: Mar 25, 2018 Frequency: At least 5 of 7 days/Wk (IRF) Estimated Hrs Per Day: 1.5 hours per day Patient and/or Family Agrees t: Yes Safety Risks/Education Patient Education: Gait Training, Transfer Techniques, Correct Positioning, Safety Issues Teaching Recipient: Patient Teaching Methods: Demonstration, Discussion Response to Teaching: Reinforcement Needed Time/GCodes Time In: 1000 Time Out: 1100 Total Billed Treatment Time: 60 Total Billed Treatment 1 visit GT 30' FA 10' EX 20' JIM HAUSER PT Mar 12, 2018 10:59
--- NOTE | 2018-03-12 12:51 | Occupational Ther Daily Note ---
OT Current Status-Daily Note Subjective Pt seen in room, up in recliner, agreeable to OT. No pain mentioned. Mental Status/Objective Functional [place] Measure 0=Not Assessed/NA 4=Minimal Assistance 1=Total Assistance 5=Supervision or Setup 2=Maximal Assistance 6=Modified [place] 3=Moderate Assistance 7=Complete [place] ADL-Treatment Pt got up from recliner, struggling a little at midpoint, skilled cues for hand placement, and walked SBA, FWW to bathroom. She got on/off BSC over toilet with SBA, cues for hand placement (and not to pull up from walker) and managed clothing/hygiene. She struggled to get slipper socks off and used dressing stick to remove them. Undressed other parts without incident. Walked to shower, FWW and was able to get in/out of shower with CGA and on/off shower bench with SBA, using grab bars. She washed and dried all parts except feet (was able to get tops of feet), with SBA when standing to dry bottom. Returned to BS to dress. Pt educ use of dressing stick to put Depends on and also slip-on shoes. Donned other clothing, with effort when bending forward, SBA, FWW. Stood at sink to brush teeth, SBA, FWW. returned to recliner to comb hair, cues for hand placement. No LOB observed when walking. Functional [place] Measure 0=Not Assessed/NA 4=Minimal Assistance 1=Total Assistance 5=Supervision or Setup 2=Maximal Assistance 6=Modified [place] 3=Moderate Assistance 7=Complete IndependenceIRFPAI Quality Coding Scale 6 Independent with activity with or without an assistive device 5 Patient requires set up or clean up by helper. Patient completes activity by themselves 4 Supervision or touching assist (CGA). [place] provide cues , steadying assist 3 The helper provides less than half the effort to complete the activity 2 The helper provides more than half the effort to complete the activity 1 Dependent. The helper does all the effort to complete an activity 7 Patient refused to complete or attempt activity 9 The patient did not perform the activity before the current illness or injury 88 Not attempted due to Medical conditions or safety concerns Eating (FIM): 7 (Pt reported that she is able to open packages, cut up food, feed herself, no AD or extra time. No dentures) Eating (QC): 6 Grooming (FIM): 5 (SBA standing at sink, with FWW for balance) Bathing (FIM): 4 (Washed and dried all parts except feet. SBA when standing to dry bottom. Shower bench, grab bar, hand held shower) Shower/Bathe Self (QC): 3 Upper Body (FIM): 5 (Doffed and donned top, with setup) Lower Body Dressing (FIM): 4 (Pt educ use of dressing stick for pants, with hand over hand help. Pt educ use of dressing stick to put shoes on. SBA when standing to pull clothing up/down. Able to thread feet into pants but it's hard for her to bend due to body habitus) Toileting (FIM): 5 (SBA, managing clothing and hygiene. BSC over toilet, grab bar, FWW. Cues for hand placement) Toilet/Commode Transfer (FIM): 5 (SBA, BSC over toilet, grab bar, FWW. Cue for hand placement) Shower Transfer(FIM): 4 (CGA, getting in/out of shower, shower bench, grab bar , FWW) Other Treatment Pt walked to gym with SBA, FWW, no LOB observed. She got into chair with arms but struggled a little pushing up to standing. She did 12 minutes bilat UE exercise on arm bike (increased 2 minutes), set on 15W resistance, taking brief recovery breaks about every 3 minutes. Otherwise worked at steady pace. To strengthen arms to help with sit to stand and standing during ADLs. Care transferred to PT. Education OT Patient Education: Modified ADL techniques, Progress toward Goal/Update tx plan, Purpose of tx/functional activities, Safety issues, Transfer techniques, Use of adapted equipment Teaching Recipient: Patient Teaching Methods: Demonstration, Discussion Response to Teaching: Verbalize Understanding, Return Demonstration, Reinforcement Needed OT Short Term Goals Short Term Goals Time Frame: Mar 18, 2018 Eating(FIM): 5 Grooming(FIM): 5 Bathing(FIM): 5 Upper Body Dressing(FIM): 5 Lower Body Dressing(FIM): 5 Toileting(FIM): 5 Transfers (B,C,W/C) (FIM): 5 Toilet/Commode Transfer(FIM): 5 Shower Transfer(FIM): 5 Additional Short Term Goals: 1-Demonstrate ADL Tasks, 2-Verbalize Understanding , 3-ImproveStrength/[place] 1=Demonstrate adherence to instructed precautions during ADL tasks. 2=Patient will verbalize/demonstrate understanding of assistive devices/ modifications for ADL. 3=Patient will improve strength/tolerance for activity to enable patient to perform ADL's. OT Intermediate Goals Intermediate Goals Time Frame: Mar 25, 2018 Eating (FIM): 6 Eating (QC): 6 Groomin Oral Hygiene (QC): 6 Bathing(FIM): 5 Shower/Bathe Self (QC): 5 Upper Body Dressing(FIM): 6 Upper Body Dressing (QC): 6 Lower Body Dressing(FIM): 6 Lower Body Dressing (QC): 6 On/Off Footwear (QC): 6 Toileting(FIM): 6 Toileting Hygiene (QC): 6 Transfers (B,C,W/C) (FIM): 6 Toilet/Commode Transfer(FIM): 6 Toilet/Commode Transfer (QC): 6 Shower Transfer(FIM): 5 Additional Goals: 1-Demonstrate ADL Tasks, 2-Verbalize Understanding, 3- ImproveStrength/[place] 1=Demonstrate adherence to instructed precautions during ADL tasks. 2=Patient will verbalize/demonstrate understanding of assistive devices/ modifications for ADL. 3=Patient will improve strength/tolerance for activity to enable patient to perform ADL's. OT Education/Plan Discharge Recommendations Plan/Recommendations: Continue POC Treatment Plan/Plan of Care Patient would benefit from OT for education, treatment and training to promote independence in ADL's, mobility, safety and/or upper extremity function for ADL' s. Plan of Care: ADL Retraining, Functional Mobility, UE Funct Exercise/Act Treatment Duration: Mar 25, 2018 Frequency: At least 5 of 7 days/Wk (IRF) Estimated Hrs Per Day: 1.5 hours per day Rehab Potential: Good Time/GCodes Start Time: 08:30 Stop Time: 10:00 Total Time Billed (hr/min): 90 Billed Treatment Time visit, 65 minutes ADL, 25 minutes exercise JANNET COREY OT Mar 12, 2018 12:51
--- NOTE | 2018-03-12 13:25 | Physical Therapy Daily Note ---
PT Daily Note-Current Subjective Patient agrees to PT. Pain Numeric Pain Scale: 0-No Pain Location: No Pain Reported Mental Status Patient Orientation: Normal For Age Transfers Functional [place] Measure 0=Not Assessed/NA 4=Minimal Assistance 1=Total Assistance 5=Supervision or Setup 2=Maximal Assistance 6=Modified [place] 3=Moderate Assistance 7=Complete IndependenceIRFPAI Quality Coding Scale 6 Independent with activity with or without an assistive device 5 Patient requires set up or clean up by helper. Patient completes activity by themselves 4 Supervision or touching assist (CGA). [place] provide cues , steadying assist 3 The helper provides less than half the effort to complete the activity 2 The helper provides more than half the effort to complete the activity 1 Dependent. The helper does all the effort to complete an activity 7 Patient refused to complete or attempt activity 9 The patient did not perform the activity before the current illness or injury 88 Not attempted due to Medical conditions or safety concerns Transfers (B, C, W/C) (FIM): 6 Scootin Sit to/from Stand: 6 Sit to Stand (QC): 6 Weight Bearing Right Lower Extremity: Right Full Weight Bearing Left Lower Extremity: Left Full Weight Bearing Gait Training Does the Patient Walk?: Yes Gait (FIM): 6 Distance (FIM): 3=150 ft Distance: 350' x 2 Walk 10 feet (QC): 6 Walk 50 ft with 2 Turns(QC): 6 Walk 150 ft (QC): 6 Gait Level of Assist: 6 Gait Assistive Device: FWW slow, steady gait sequence Exercises Seated Therapy Exercises: Ankle pumps, Long arc quads Seated Reps: 25 Assessment Patient returned to room and prefers to sleep in her recliner. All needs met. PT Short Term Goals Short Term Goals Time Frame: Mar 18, 2018 Transfers (B,C,W/C) (FIM): 5 Gait (FIM): 5 Distance (FIM): 3=150 ft Gait Assistive Device: FWW PT Longterm Goals Longterm Goals PT Longterm Goals Time Frame: Mar 26, 2018 Transfers (B,C,W/C) (FIM): 6 Sit to Lying (QC): 6 Lying-Sitting on Side/Bed(QC): 6 Sit to Stand (QC): 6 Roll Left to Right (QC): 6 Chair/Buy-rj-Ppxuy Xfer(QC): 6 Car Transfer (QC): 5 Does the Patient Walk: Yes Gait (FIM): 6 Gait distance (FIM): 3=150 ft Walk 10 feet (QC): 6 Walk 10ft-Uneven Surface(QC): 6 Walk 50ft with 2 Turns (QC): 6 Walk 150 ft (QC): 6 Gait Level of Assist: 6 Gait Assistive Device: FWW Stairs (FIM): 2 # of Steps: 4 1 Step (curb) (QC): 5 4 Steps (QC): 4 12 Steps (QC): 88 Picking up an Object (QC): 88 PT Plan Treatment/Plan Treatment Plan: Continue Plan of Care Treatment Plan: Bed Mobility, Education, Functional Activity Mary Ann, Functional Strength, Group Therapy, Gait, Safety, Therapeutic Exercise, Transfers Treatment Duration: Mar 25, 2018 Frequency: At least 5 of 7 days/Wk (IRF) Estimated Hrs Per Day: 1.5 hours per day Patient and/or Family Agrees t: Yes Time/GCodes Time In: 1150 Time Out: 1220 Total Billed Treatment Time: 30 Total Billed Treatment 1 visit FA x 2 30 min FELISA VERA PT Mar 12, 2018 13:25
--- NOTE | 2018-03-12 16:14 | Individualized Plan of Care ---
Individualized Plan of Care Rehab Nursing IPOC Order Admission Date Mar 11, 2018 at 10:00 Current Orders Orders Pt Evaluate/Treat Request (03/11/18 09:23) Request Ot Evaluate & Treat (03/11/18 09:23) Request For Cognitive Services (03/11/18 09:23) Admission Order(Inpt,Obs,Sdc) (03/11/18 10:01) Vital Signs: Routine (Order) 08,16,00 (03/11/18 10:01) [employer]-Inpt Rehab Con (03/11/18 10:01) Rehab Nursing Orders-Ipoc (03/11/18 10:01) Turn And Reposition Q2HR (03/11/18 10:01) Intake & Output 06,14,22 (03/11/18 10:01) Weekly Weight (Lbs) WEEK (03/11/18 10:01) Code/Resuscitation (03/11/18 10:04) Sequential Compression Device 08,20 (03/11/18 10:04) Clopidogrel Tablet (Plavix Tablet) (03/12/18 09:00) Furosemide Tablet (Lasix Tablet) (03/12/18 09:00) Nitroglycerin Ointment (Nitrobid Ointme (03/11/18 10:15) Pantoprazole Tablet (Protonix Tablet) (03/12/18 07:00) Simvastatin Tablet (Zocor Tablet) (03/11/18 21:00) Telmisartan Tablet (Micardis Tablet) (03/12/18 09:00) Cbc No Diff (03/12/18 06:00) Consult Physician (03/11/18 10:07) Metformin Tablet (Glucophage Tablet) (03/11/18 17:00) Cho 60g/M 3snack (16-2000 Edmundo) (03/11/18 Lunch) Accucheck Bid DBID (03/11/18 10:22) Patient Visit (03/11/18 ) Speech Sound Lang Comp (03/11/18 ) Patient Visit (03/11/18 ) Pt Eval Moderate Complexity (03/11/18 ) Functional Activities, Ea 15 (03/11/18 ) Exercise Therap, Ea 15 Min (03/11/18 ) Gait Training, Ea 15 Min (03/11/18 ) Basic Metabolic Panel (03/15/18 10:26) Patient Visit (03/12/18 ) Gait Training, Ea 15 Min (03/12/18 ) Functional Activities, Ea 15 (03/12/18 ) Exercise Therap, Ea 15 Min (03/12/18 ) Patient Visit (03/12/18 ) Functional Activities, Ea 15 (03/12/18 ) Rehab Nursing Orders: Ongoing Assess. of Cognitive Status, Ongoing Assess. of Function Status, Disease Management & Educaiton, DVT Prophylaxis, Fall Prevention, Fluid/Electrolyte/Nutrition Mgmt, Infection Prevention, Medication Management & Education, Management of Risks & Complications, Management of Skin Intergrity, Nutrition Management, Pain Management, Patient/Family Support PT IPOC Problem List: Activity Tolerance, Functional Strength, Safety, Balance, Gait, Transfer, Bed Mobility, ROM Treatment Plan: Continue Plan of Care Bed Mobility, Education, Functional Activity Mary Ann, Functional Strength, Group Therapy, Gait, Safety, Therapeutic Exercise, Transfers Treatment Duration: Mar 25, 2018 Frequency: At least 5 of 7 days/Wk (IRF) Estimated Hrs Per Day: 1.5 hours per day OT IPOC Problems: Decreased Activ Tolerance, Impaired I ADL's, Impaired Self-Care Skills, Restricted Funct UE ROM OT Treatment, Training and Edu: Yes Plan of Care: ADL Retraining, Functional Mobility, UE Funct Exercise/Act Treatment Duration: Mar 25, 2018 Frequency: At least 5 of 7 days/Wk (IRF) Estimated Hrs Per Day: 1.[address] IPOC Speech Therapy Treatment Plan: Discontinue ST Treatment Duration: Mar 12, 2018 Frequency: Modified Program (IRF) (No ST warranted. The patient is functioning at prior level of function.) Estimated Hrs Per Day: Other [employer]/Case Mgmt [employer]/Case Managemen: Discharge Planning, Patient/Family Counseling Dietitian/Contact Center Associate Dietitian/Contact Center Associate to monitor nutritional status and make changes and/or recommendations as needed and work with speech pathology on dietary upgrades as the occur. Physician IPOC Medical Issues being managed closely and that require the 24 hour availability of a physician: Confusion tias HTN Thrombocytopenia Mild anemia DM2 HX of DVTS S/P left shoulder surgery Medical Issues: DVT Prophylaxis, Falls Precautions, Infection Protection, Pain Management, Other (List) (as per above) Brief Synthesis of Preadmission Screen, Post-Admission Evaluation, and Therapy Evaluations: 77 yo female who had been Modified Independent and living in an FDC who sustained a CVA with resulting confusion and gait instability referred to IRU for ongoing care and therapies Has thrombocytopenia and Plavix begun for stroke prophylaxis PMH as per above DR mora PCP Medical Prognosis: Good Anticipated Length of Stay: 03-25-18 Modified Independent for adls and mobility skills Anticipated d/c Destination: Home with HECTOR CARRINGTON MD Mar 12, 2018 16:14
[2018-03-12 16:32] VITALS: BP 177/80
[2018-03-12] MEDS: DICLOFENAC 1% GEL 100 GM (VOLTAREN) TUBE TOP PRN (18:42)
[2018-03-12] MEDS: SIMvastatin 20 MG (ZOCOR) TAB PO SCH (20:12)
[2018-03-13 06:00] VITALS: BP 154/74
[2018-03-13] MEDS: metFORMIN 500 MG (GLUCOPHAGE) TAB PO SCH ×2 (06:29→17:13)
[2018-03-13] MEDS: PANTOPRAZOLE 40 MG (PROTONIX) TAB PO SCH (06:29)
--- NOTE | 2018-03-13 07:37 | PM & R (SOAP) Progress Note ---
Subjective This was a face to face visit with the patient. Date Seen by Provider: Mar 13, 2018 Time Seen by Provider: 07:10 Subjective/Events-last exam Patient was seen in her room this AM Patient Modified Independent for transfers DM well controlled Doing much better overall Objective Physician Exam Last Set of Vital Signs Vital Signs Date Time Temp Pulse Resp B/P (MAP) Pulse Ox O2 Delivery O2 Flow Rate FiO2 03/13/18 06:00 97.5 56 16 154/74 (100) 100 Room Air Capillary Refill : I&O Intake and Output 03/13/18 00:00 Intake Total 1540 ml Balance 1540 ml Intake Oral 1540 ml # Voids 7 General: Alert, Oriented X3, Cooperative, No Acute Distress HEENT: Atraumatic, PERRLA, EOMI, Mucous Memb Moist/[place] Neck: Supple, No JVD Lungs: Clear to Auscultation Heart: Regular Rate Abdomen: Normal Bowel Sounds, Soft, No Tenderness, Other Extremities: Other Neuro: Other Results Lab Data Laboratory Tests 03/11/18 10:55: Glucometer 204H 03/11/18 16:32: Glucometer 143H 03/12/18 05:19: Glucometer 113H 03/12/18 05:20: White Blood Count 4.6, Red Blood Count 3.80L, Hemoglobin 11.2L, Hematocrit 34L, Mean Corpuscular Volume 89, Mean Corpuscular Hemoglobin 29, Mean Corpuscular Hemoglobin Concent 33, Red Cell Distribution Width 14.8H, Platelet Count 91L, Mean Platelet Volume 10.3 03/12/18 16:30: Glucometer 152H 03/12/18 21:31: Glucometer 148H 03/13/18 06:25: Glucometer 104 Assessment/Plan Assessment and Plan 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 TIA yesterday on plavix HTN controlled Thrombocytopenia stable Anemia DM 2 controlled HX of DVT s/p sabina filter placement S./P left shoulder surgery Plan Continue PT/OT F/U with DR Cortez PCP Team Conference 03-17-18 (1) CVA (cerebral vascular accident) Co-Morbidities that are continuing to impact the rehab process: (include details ) HECTOR BRITT MD Mar 13, 2018 07:37
[2018-03-13] MEDS: FUROSEMIDE 40 MG (LASIX) TAB PO SCH (08:22)
[2018-03-13] MEDS: TELMISARTAN 40 MG (MICARDIS) TAB PO SCH (08:23)
[2018-03-13] MEDS: CLOPIDOGREL 75 MG (PLAVIX) TABLET PO SCH (08:23)
--- NOTE | 2018-03-13 10:48 | Physical Therapy Daily Note ---
PT Daily Note-Current Subjective Patient is very agreeable to participate with PT. Pain Numeric Pain Scale: 0-No Pain Location: No Pain Reported Mental Status Patient Orientation: Normal For Age Transfers Functional [place] Measure 0=Not Assessed/NA 4=Minimal Assistance 1=Total Assistance 5=Supervision or Setup 2=Maximal Assistance 6=Modified [place] 3=Moderate Assistance 7=Complete IndependenceIRFPAI Quality Coding Scale 6 Independent with activity with or without an assistive device 5 Patient requires set up or clean up by helper. Patient completes activity by themselves 4 Supervision or touching assist (CGA). [place] provide cues , steadying assist 3 The helper provides less than half the effort to complete the activity 2 The helper provides more than half the effort to complete the activity 1 Dependent. The helper does all the effort to complete an activity 7 Patient refused to complete or attempt activity 9 The patient did not perform the activity before the current illness or injury 88 Not attempted due to Medical conditions or safety concerns Transfers (B, C, W/C) (FIM): 5 Scootin Sit to/from Stand: 5 Sit to Stand (QC): 5 Weight Bearing Right Lower Extremity: Right Full Weight Bearing Left Lower Extremity: Left Full Weight Bearing Gait Training Does the Patient Walk?: Yes Gait (FIM): 5 Distance (FIM): 3=150 ft Distance: 550' Walk 10 feet (QC): 5 Walk 50 ft with 2 Turns(QC): 5 Walk 150 ft (QC): 5 Gait Level of Assist: 5 Gait Assistive Device: FWW very slow, functional gait sequence Exercises NuStep Minutes: 10 NuStep Workload: 3 (to improve functional mobility) Assessment Patient tolerated treatment well and remains up in recliner with needs met. Family present. PT Short Term Goals Short Term Goals Time Frame: Mar 18, 2018 Transfers (B,C,W/C) (FIM): 5 Gait (FIM): 5 Distance (FIM): 3=150 ft Gait Assistive Device: FWW PT [facility] Goals [facility] Goals PT [facility] Goals Time Frame: Mar 26, 2018 Transfers (B,C,W/C) (FIM): 6 Sit to Lying (QC): 6 Lying-Sitting on Side/Bed(QC): 6 Sit to Stand (QC): 6 Roll Left to Right (QC): 6 Chair/Hvw-qm-Udlkc Xfer(QC): 6 Car Transfer (QC): 5 Does the Patient Walk: Yes Gait (FIM): 6 Gait distance (FIM): 3=150 ft Walk 10 feet (QC): 6 Walk 10ft-Uneven Surface(QC): 6 Walk 50ft with 2 Turns (QC): 6 Walk 150 ft (QC): 6 Gait Level of Assist: 6 Gait Assistive Device: FWW Stairs (FIM): 2 # of Steps: 4 1 Step (curb) (QC): 5 4 Steps (QC): 4 12 Steps (QC): 88 Picking up an Object (QC): 88 PT Plan Treatment/Plan Treatment Plan: Continue Plan of Care Treatment Plan: Bed Mobility, Education, Functional Activity Mary Ann, Functional Strength, Group Therapy, Gait, Safety, Therapeutic Exercise, Transfers Treatment Duration: Mar 25, 2018 Frequency: At least 5 of 7 days/Wk (IRF) Estimated Hrs Per Day: 1.5 hours per day Patient and/or Family Agrees t: Yes Time/GCodes Time In: 1011 Time Out: 1038 Total Billed Treatment Time: 27 Total Billed Treatment 1 visit FA 17 min EX 10 min FELISA VERA PT Mar 13, 2018 10:48
--- NOTE | 2018-03-13 12:04 | Progress Note-Hospitalist ---
Subjective HPI/CC On Admission Date Seen by Provider: Mar 13, 2018 Time Seen by Provider: 11:00 Subjective/Events-last exam Patient doing very well No bowel movement for 2 days but she declines to take any medicine because she does go q 3 days No pain is reported Review of Systems Gastrointestinal: Constipation Objective Exam Vital Signs Vital Signs Date Time Temp Pulse Resp B/P (MAP) Pulse Ox O2 Delivery O2 Flow Rate FiO2 03/13/18 09:21 Room Air 03/13/18 06:00 97.5 56 16 154/74 (100) 100 Capillary Refill : General Appearance: No Apparent Distress, WD/WN, Chronically ill, Obese Respiratory: Lungs Clear, Normal Breath Sounds Cardiovascular: Regular Rate, Rhythm, No Edema Neurologic/Psychiatric: Alert, Oriented x3, No Motor/Sensory Deficits, Normal Mood/Affect Results/Procedures Lab Patient resulted labs reviewed. Assessment/Plan Assessment and Plan Assess & Plan/Chief Complaint Assessment: Debility CVA Obesity Plan: Monitor constipation PT/OT Diagnosis/Problems Diagnosis/Problems (1) CVA (cerebral vascular accident) Status: Acute Qualifiers: CVA mechanism: unspecified Qualified Codes: I63.9 - Cerebral infarction, unspecified (2) Diabetes mellitus Status: Chronic Qualifiers: Diabetes mellitus type: type 2 Diabetes mellitus fdc insulin use: without fdc use Diabetes mellitus complication status: with circulatory complication Diabetes mellitus complication detail: with other circulatory complications Qualified Codes: E11.59 - Type 2 diabetes mellitus with other circulatory complications (3) Hypertension Status: Chronic Qualifiers: Hypertension type: essential hypertension Qualified Codes: I10 - Essential (primary) hypertension (4) Hyperlipidemia Status: Chronic Qualifiers: Hyperlipidemia type: mixed hyperlipidemia Qualified Codes: E78.2 - Mixed hyperlipidemia Clinical Quality Measures DVT/VTE Risk/Contraindication: Risk Factor Score Per Nursin RFS Level Per Nursing on Admit: 4+=Very High STEPHEN GARZA DO Mar 13, 2018 12:04
[2018-03-13 18:42] VITALS: BP 173/70
[2018-03-13] MEDS: SIMvastatin 20 MG (ZOCOR) TAB PO SCH (20:34)
[2018-03-14 05:53] VITALS: BP 169/78
[2018-03-14] MEDS: metFORMIN 500 MG (GLUCOPHAGE) TAB PO SCH ×2 (06:28→16:08)
[2018-03-14] MEDS: PANTOPRAZOLE 40 MG (PROTONIX) TAB PO SCH (06:28)
[2018-03-14 08:00] VITALS: BP 146/69
[2018-03-14] MEDS: CLOPIDOGREL 75 MG (PLAVIX) TABLET PO SCH (08:00)
[2018-03-14] MEDS: FUROSEMIDE 40 MG (LASIX) TAB PO SCH (08:01)
[2018-03-14] MEDS: TELMISARTAN 40 MG (MICARDIS) TAB PO SCH (08:01)
[2018-03-14 18:35] VITALS: BP 113/76
[2018-03-14] MEDS: SIMvastatin 20 MG (ZOCOR) TAB PO SCH (20:10)
[2018-03-15 06:05] VITALS: BP 175/68
[2018-03-15] MEDS: PANTOPRAZOLE 40 MG (PROTONIX) TAB PO SCH (06:11)
[2018-03-15] MEDS: metFORMIN 500 MG (GLUCOPHAGE) TAB PO SCH ×2 (06:11→17:37)
--- NOTE | 2018-03-15 08:29 | Progress Note (SOAP) ---
Subjective Time Seen by Provider: 08:25 Subjective/Events-last exam Patient speaking better. Patient feels she's doing better. Blood pressures elevated Objective Exam Vital Signs Date Time Temp Pulse Resp B/P (MAP) Pulse Ox O2 Delivery O2 Flow Rate FiO2 03/15/18 06:05 98.2 61 18 175/68 (103) 97 Room Air 03/14/18 20:17 Room Air 03/14/18 18:35 97.4 62 18 113/76 (88) 99 Room Air 03/14/18 09:15 Room Air I & O 03/15/18 07:00 Intake Total 1122 ml Balance 1122 ml Capillary Refill : General Appearance: No Apparent Distress, WD/WN, Obese HEENT: Normal ENT Inspection Neck: Full Range of Motion, Normal Inspection Respiratory: Lungs Clear, No Accessory Muscle Use, No Respiratory Distress Cardiovascular: Regular Rate, Rhythm, No Murmur Gastrointestinal: non tender, soft Results Lab Laboratory Tests 03/14/18 16:24: Glucometer 145H 03/15/18 06:09: Glucometer 112H Assessment/Plan Assessment/Plan Assess & Plan/Chief Complaint Sheet CVA history. Diabetes. Dysphagia. Dysarthria. Diabetes. Obesity. Hypertension. . 03/15/18. Acute CVA. Diabetes. Dysphagia better. Dysarthria better. Diabetes under good control. Obesity. HYPERTENSION. Patient feel she is improving Clinical Quality Measures DVT/VTE Risk/Contraindication: Risk Factor Score Per Nursin RFS Level Per Nursing on Admit: 4+=Very High ADEN LEE DO Mar 15, 2018 08:29
--- NOTE | 2018-03-15 09:14 | Physical Therapy Daily Note ---
PT Daily Note-Current Subjective Pt. agrees to Rx. Pleasant and states she really likes Fidencio Dlaal Pain Numeric Pain Scale: 0-No Pain Mental Status Patient Orientation: Normal For Age Transfers Functional [place] Measure 0=Not Assessed/NA 4=Minimal Assistance 1=Total Assistance 5=Supervision or Setup 2=Maximal Assistance 6=Modified [place] 3=Moderate Assistance 7=Complete IndependenceIRFPAI Quality Coding Scale 6 Independent with activity with or without an assistive device 5 Patient requires set up or clean up by helper. Patient completes activity by themselves 4 Supervision or touching assist (CGA). [place] provide cues , steadying assist 3 The helper provides less than half the effort to complete the activity 2 The helper provides more than half the effort to complete the activity 1 Dependent. The helper does all the effort to complete an activity 7 Patient refused to complete or attempt activity 9 The patient did not perform the activity before the current illness or injury 88 Not attempted due to Medical conditions or safety concerns Transfers (B, C, W/C) (FIM): 5 Scootin Rollin Supine to/from Sit: 5 Sit to/from Stand: 5 Bed to/from Chair: 5 Weight Bearing Right Lower Extremity: Right Full Weight Bearing Left Lower Extremity: Left Full Weight Bearing Gait Training Does the Patient Walk?: Yes Gait (FIM): 5 Distance (FIM): 3=150 ft (170,125) Gait Level of Assist: 5 Gait Persons Needed: 1 Gait Assistive Device: FWW pt. now has her own FWW here, good height, uses it with good habits Stair Training Stair Training: Handrails/: 2 handrails Stairs (FIM): 2 #of Steps: 4 Stairs: Pattern: Step to Level of Assist: 4 Exercises Supine Ex: Ankle pumps, Quad Set, Rolling, Heel Slides, Scooting, Straight leg raise, Hip abd/add Supine Reps: 15 Seated Therapy Exercises: Ankle pumps, Sit to stand, Long arc quads, Hip flexion, Hip abd/add Seated Reps: 12 NuStep Minutes: 10 NuStep Workload: 3 Assessment Current Status: Good Progress PT Short Term Goals Short Term Goals Time Frame: Mar 18, 2018 Transfers (B,C,W/C) (FIM): 5 Gait (FIM): 5 Distance (FIM): 3=150 ft Gait Assistive Device: FWW PT Production Support Specialist Goals Custodial Goals PT Production Support Specialist Goals Time Frame: Mar 26, 2018 Transfers (B,C,W/C) (FIM): 6 Sit to Lying (QC): 6 Lying-Sitting on Side/Bed(QC): 6 Sit to Stand (QC): 6 Roll Left to Right (QC): 6 Chair/Tdq-ut-Uhrds Xfer(QC): 6 Car Transfer (QC): 5 Does the Patient Walk: Yes Gait (FIM): 6 Gait distance (FIM): 3=150 ft Walk 10 feet (QC): 6 Walk 10ft-Uneven Surface(QC): 6 Walk 50ft with 2 Turns (QC): 6 Walk 150 ft (QC): 6 Gait Level of Assist: 6 Gait Assistive Device: FWW Stairs (FIM): 2 # of Steps: 4 1 Step (curb) (QC): 5 4 Steps (QC): 4 12 Steps (QC): 88 Picking up an Object (QC): 88 PT Plan Treatment/Plan Treatment Plan: Continue Plan of Care Treatment Plan: Bed Mobility, Education, Functional Activity Mary Ann, Functional Strength, Group Therapy, Gait, Safety, Therapeutic Exercise, Transfers Treatment Duration: Mar 25, 2018 Frequency: At least 5 of 7 days/Wk (IRF) Estimated Hrs Per Day: 1.5 hours per day Patient and/or Family Agrees t: Yes Safety Risks/Education Patient Education: Gait Training, Transfer Techniques, Steps Teaching Recipient: Patient Teaching Methods: Demonstration, Discussion Response to Teaching: Verbalize Understanding, Return Demonstration, Reinforcement Needed Time/GCodes Time In: 815 Time Out: 915 Total Billed Treatment Time: 60 Total Billed Treatment 1,GT25m,FA15m,EX20m G Codes Necessary: CHAR Traylor PIPE FITTER SOFT COPPER Mar 15, 2018 09:14
[2018-03-15 09:33] VITALS: BP 126/53
[2018-03-15] MEDS: TELMISARTAN 40 MG (MICARDIS) TAB PO SCH (09:35)
[2018-03-15] MEDS: CLOPIDOGREL 75 MG (PLAVIX) TABLET PO SCH (09:35)
[2018-03-15] MEDS: FUROSEMIDE 40 MG (LASIX) TAB PO SCH (09:35)
[2018-03-15] MEDS: DICLOFENAC 1% GEL 100 GM (VOLTAREN) TUBE TOP PRN (09:37)
--- NOTE | 2018-03-15 11:27 | Occupational Ther Daily Note ---
OT Current Status-Daily Note Subjective Pt alert, sitting in recliner. Pt agrees to therapy. No c/o pain. Mental Status/Objective Patient Orientation: Person, Place, Time, Situation Functional [place] Measure 0=Not Assessed/NA 4=Minimal Assistance 1=Total Assistance 5=Supervision or Setup 2=Maximal Assistance 6=Modified [place] 3=Moderate Assistance 7=Complete [place] ADL-Treatment Pt declined shower today. Stated that she had already completed grooming. Did agree to change clothing and complete sponge bath. After set up, pt able to complete dressing with SBA using FWW when standing. Supervision to transfer to toilet using FWW, grabbars and BSC then completed toileting with supervision. Functional [place] Measure 0=Not Assessed/NA 4=Minimal Assistance 1=Total Assistance 5=Supervision or Setup 2=Maximal Assistance 6=Modified [place] 3=Moderate Assistance 7=Complete IndependenceIRFPAI Quality Coding Scale 6 Independent with activity with or without an assistive device 5 Patient requires set up or clean up by helper. Patient completes activity by themselves 4 Supervision or touching assist (CGA). [place] provide cues , steadying assist 3 The helper provides less than half the effort to complete the activity 2 The helper provides more than half the effort to complete the activity 1 Dependent. The helper does all the effort to complete an activity 7 Patient refused to complete or attempt activity 9 The patient did not perform the activity before the current illness or injury 88 Not attempted due to Medical conditions or safety concerns Upper Body (FIM): 5 Upper Body Dressing (QC): 5 Lower Body Dressing (FIM): 5 Lower Body Dressing (QC): 4 On/Off Footwear (QC): 5 Toileting (FIM): 5 Toileting Hygiene (QC): 4 Transfers (B, C, W/C) (FIM): 5 Toilet/Commode Transfer (FIM): 5 Toilet Transfer (QC): 4 Other Treatment Pt completed UE tasks with 1# wts attached to wrists to increase strength and activity tolerance for daily functional tasks. Fine and gross motor UE tasks were completed throughout therapy, pt tolerated well. Pt had to go between sitting and standing due to back and legs aching. Pt demonstrated good understanding of each task. After therapy, pt sitting in recliner with call light/phone in reach. All needs met in room. OT Short Term Goals Short Term Goals Time Frame: Mar 18, 2018 Eating(FIM): 5 Grooming(FIM): 5 Bathing(FIM): 5 Upper Body Dressing(FIM): 5 Lower Body Dressing(FIM): 5 Toileting(FIM): 5 Transfers (B,C,W/C) (FIM): 5 Toilet/Commode Transfer(FIM): 5 Shower Transfer(FIM): 5 Additional Short Term Goals: 1-Demonstrate ADL Tasks, 2-Verbalize Understanding , 3-ImproveStrength/Mary Ann 1=Demonstrate adherence to instructed precautions during ADL tasks. 2=Patient will verbalize/demonstrate understanding of assistive devices/ modifications for ADL. 3=Patient will improve strength/tolerance for activity to enable patient to perform ADL's. OT Mcfp Goals Mcfp Goals Time Frame: Mar 25, 2018 Eating (FIM): 6 Eating (QC): 6 Groomin Oral Hygiene (QC): 6 Bathing(FIM): 5 Shower/Bathe Self (QC): 5 Upper Body Dressing(FIM): 6 Upper Body Dressing (QC): 6 Lower Body Dressing(FIM): 6 Lower Body Dressing (QC): 6 On/Off Footwear (QC): 6 Toileting(FIM): 6 Toileting Hygiene (QC): 6 Transfers (B,C,W/C) (FIM): 6 Toilet/Commode Transfer(FIM): 6 Toilet/Commode Transfer (QC): 6 Shower Transfer(FIM): 5 Additional Goals: 1-Demonstrate ADL Tasks, 2-Verbalize Understanding, 3- ImproveStrength/Mary Ann 1=Demonstrate adherence to instructed precautions during ADL tasks. 2=Patient will verbalize/demonstrate understanding of assistive devices/ modifications for ADL. 3=Patient will improve strength/tolerance for activity to enable patient to perform ADL's. OT Education/Plan Discharge Recommendations Plan/Recommendations: Continue POC Treatment Plan/Plan of Care Patient would benefit from OT for education, treatment and training to promote independence in ADL's, mobility, safety and/or upper extremity function for ADL' s. Plan of Care: ADL Retraining, Functional Mobility, UE Funct Exercise/Act Treatment Duration: Mar 25, 2018 Frequency: At least 5 of 7 days/Wk (IRF) Estimated Hrs Per Day: 1.5 hours per day Rehab Potential: Good Time/GCodes Start Time: 10:00 Stop Time: 11:30 Total Time Billed (hr/min): 90 Billed Treatment Time 1 visit-ADL 3 (45 min) EX 3 (45 min) MICHAELA STUBBS Mar 15, 2018 11:27
[2018-03-15 12:42] LABS: BUN/CREATININE RATIO 26; CALCIUM 9.1 MG/DL (8.5-10.1); CARBON DIOXIDE 24 MMOL/L (21-32); CHLORIDE 104 MMOL/L (98-107); CREATININE SERUM 0.81 MG/DL (0.60-1.30); GFR ESTIMATED > 60; GLUCOSE 187 MG/DL (70-105); SODIUM 139 MMOL/L (135-145)
--- NOTE | 2018-03-15 13:19 | PM & R (SOAP) Progress Note ---
Subjective This was a face to face visit with the patient. Date Seen by Provider: Mar 15, 2018 Time Seen by Provider: 11:50 Subjective/Events-last exam Patient was seen in her room this AM Patient SBA for transfers Objective Physician Exam Last Set of Vital Signs Vital Signs Date Time Temp Pulse Resp B/P (MAP) Pulse Ox O2 Delivery O2 Flow Rate FiO2 03/15/18 09:33 60 18 126/53 (77) 100 Room Air 03/15/18 06:05 98.2 Capillary Refill : I&O Intake and Output 03/15/18 00:00 Intake Total 1072 ml Balance 1072 ml Intake Oral 1072 ml # Voids 7 General: Alert, Oriented X3, Cooperative, No Acute Distress HEENT: Atraumatic, PERRLA, EOMI, Mucous Memb Moist/[place] Neck: Supple, No JVD Lungs: Clear to Auscultation Heart: Regular Rate Abdomen: Normal Bowel Sounds, Soft, No Tenderness, Other Extremities: Other Neuro: Other Results Lab Data Laboratory Tests 03/12/18 16:30: Glucometer 152H 03/12/18 21:31: Glucometer 148H 03/13/18 06:25: Glucometer 104 03/13/18 16:04: Glucometer 159H 03/13/18 20:41: Glucometer 193H 03/14/18 05:45: Glucometer 100 03/14/18 16:24: Glucometer 145H 03/15/18 06:09: Glucometer 112H 03/15/18 12:18: Sodium Level 139, Potassium Level 5.0, Chloride Level 104, Carbon Dioxide Level 24, Anion Gap 11, Blood Urea Nitrogen 21H, Creatinine 0.81, Estimat Glomerular Filtration Rate > 60, BUN/Creatinine Ratio 26, Glucose Level 187H, Calcium Level 9.1 Assessment/Plan Assessment and Plan 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 TIA on plavix Thrombocytopenia Anemia HTN controlled DM2 controlled HX of DVT s/p sabina filter placement S/P left shoulder surgery Plan Continue PT/OT Team Conference 03-17-18 Goal return home with family and HHC (1) CVA (cerebral vascular accident) Qualifiers: Qualified Codes: I63.9 - Cerebral infarction, unspecified Status: Acute Co-Morbidities that are continuing to impact the rehab process: (include details ) HECTOR BRITT MD Mar 15, 2018 13:19
--- NOTE | 2018-03-15 14:16 | Physical Therapy Daily Note ---
PT Daily Note-Current Subjective Patient agrees to PT. No c/o. Pain Numeric Pain Scale: 0-No Pain Location: No Pain Reported Mental Status Patient Orientation: Normal For Age Transfers Functional [place] Measure 0=Not Assessed/NA 4=Minimal Assistance 1=Total Assistance 5=Supervision or Setup 2=Maximal Assistance 6=Modified [place] 3=Moderate Assistance 7=Complete IndependenceIRFPAI Quality Coding Scale 6 Independent with activity with or without an assistive device 5 Patient requires set up or clean up by helper. Patient completes activity by themselves 4 Supervision or touching assist (CGA). [place] provide cues , steadying assist 3 The helper provides less than half the effort to complete the activity 2 The helper provides more than half the effort to complete the activity 1 Dependent. The helper does all the effort to complete an activity 7 Patient refused to complete or attempt activity 9 The patient did not perform the activity before the current illness or injury 88 Not attempted due to Medical conditions or safety concerns Transfers (B, C, W/C) (FIM): 5 Scootin Sit to/from Stand: 5 Sit to Stand (QC): 5 Bed to/from Chair: 5 Weight Bearing Right Lower Extremity: Right Full Weight Bearing Left Lower Extremity: Left Full Weight Bearing Gait Training Does the Patient Walk?: Yes Gait (FIM): 5 Distance (FIM): 3=150 ft Distance: 225' Walk 10 feet (QC): 5 Walk 50 ft with 2 Turns(QC): 5 Walk 150 ft (QC): 5 Gait Level of Assist: 5 Gait Assistive Device: FWW slow, safe and functional Exercises NuStep Minutes: 15 NuStep Workload: 4 Assessment Patient progressing with treatment plan. Will discuss with therapy staff on privileges of up in room and to restroom ad giovanny. PT Short Term Goals Short Term Goals Time Frame: Mar 18, 2018 Transfers (B,C,W/C) (FIM): 5 Gait (FIM): 5 Distance (FIM): 3=150 ft Gait Assistive Device: FWW PT Asphalt Tile Floor Layer Goals Asphalt Tile Floor Layer Goals PT Asphalt Tile Floor Layer Goals Time Frame: Mar 26, 2018 Transfers (B,C,W/C) (FIM): 6 Sit to Lying (QC): 6 Lying-Sitting on Side/Bed(QC): 6 Sit to Stand (QC): 6 Rollin Roll Left to Right (QC): 6 Chair/Pym-zs-[place] Xfer(QC): 6 Car Transfer (QC): 5 Does the Patient Walk: Yes Gait (FIM): 6 Gait distance (FIM): 3=150 ft Walk 10 feet (QC): 6 Walk 10ft-Uneven Surface(QC): 6 Walk 50ft with 2 Turns (QC): 6 Walk 150 ft (QC): 6 Gait Level of Assist: 6 Gait Assistive Device: FWW Stairs (FIM): 2 # of Steps: 4 1 Step (curb) (QC): 5 4 Steps (QC): 4 12 Steps (QC): 88 Picking up an Object (QC): 88 PT Plan Treatment/Plan Treatment Plan: Continue Plan of Care Treatment Plan: Bed Mobility, Education, Functional Activity Mary Ann, Functional Strength, Group Therapy, Gait, Safety, Therapeutic Exercise, Transfers Treatment Duration: Mar 25, 2018 Frequency: At least 5 of 7 days/Wk (IRF) Estimated Hrs Per Day: 1.5 hours per day Patient and/or Family Agrees t: Yes Time/GCodes Time In: 1300 Time Out: 1330 Total Billed Treatment Time: 30 Total Billed Treatment 1 visit EX 15 min FA 15 min FELISA VERA PT Mar 15, 2018 14:16
[2018-03-15 16:22] VITALS: BP 174/62
[2018-03-15] MEDS ORDERED: lisINopril 5 MG (PRINIVIL) TABLET PO ONE (18:30)
[2018-03-15] MEDS: SIMvastatin 20 MG (ZOCOR) TAB PO SCH (20:13)
[2018-03-16 05:31] VITALS: BP 126/69
[2018-03-16] MEDS: metFORMIN 500 MG (GLUCOPHAGE) TAB PO SCH ×2 (05:51→17:54)
[2018-03-16] MEDS: PANTOPRAZOLE 40 MG (PROTONIX) TAB PO SCH (05:51)
--- NOTE | 2018-03-16 08:31 | Progress Note (SOAP) ---
Subjective Time Seen by Provider: 08:30 Subjective/Events-last exam Patient speaking better. Patient getting around with a walker better. Diabetes under control. CVA. Hypertension history. Patient steadily improving Objective Exam Vital Signs Date Time Temp Pulse Resp B/P (MAP) Pulse Ox O2 Delivery O2 Flow Rate FiO2 03/16/18 05:31 96.8 56 16 126/69 (88) 97 Room Air 03/15/18 21:00 Room Air 03/15/18 16:22 97.4 66 16 174/62 (99) 97 Room Air 03/15/18 09:33 60 18 126/53 (77) 100 Room Air 03/15/18 08:38 Room Air I & O 03/16/18 07:00 Intake Total 1320 ml Balance 1320 ml Capillary Refill : General Appearance: No Apparent Distress, WD/WN HEENT: Normal ENT Inspection Neck: Full Range of Motion, Normal Inspection Results Lab Laboratory Tests 03/15/18 12:18: Sodium Level 139, Potassium Level 5.0, Chloride Level 104, Carbon Dioxide Level 24, Anion Gap 11, Blood Urea Nitrogen 21H, Creatinine 0.81, Estimat Glomerular Filtration Rate > 60, BUN/Creatinine Ratio 26, Glucose Level 187H, Calcium Level 9.1 03/15/18 16:16: Glucometer 164H 03/16/18 04:15: Glucometer 105 Assessment/Plan Assessment/Plan Assess & Plan/Chief Complaint Sheet CVA history. Diabetes. Dysphagia. Dysarthria. Diabetes. Obesity. Hypertension. . 03/15/18. Acute CVA. Diabetes. Dysphagia better. Dysarthria better. Diabetes under good control. Obesity. HYPERTENSION. Patient feel she is improving Clinical Quality Measures DVT/VTE Risk/Contraindication: Risk Factor Score Per Nursin RFS Level Per Nursing on Admit: 4+=Very High ADEN LEE DO Mar 16, 2018 08:31
[2018-03-16] MEDS ORDERED: lisINopril 5 MG (PRINIVIL) TABLET PO SCH (09:00)
[2018-03-16] MEDS: FUROSEMIDE 40 MG (LASIX) TAB PO SCH (09:06)
[2018-03-16] MEDS: CLOPIDOGREL 75 MG (PLAVIX) TABLET PO SCH (09:06)
[2018-03-16] MEDS: TELMISARTAN 40 MG (MICARDIS) TAB PO SCH (09:07)
--- NOTE | 2018-03-16 10:49 | Occupational Ther Daily Note ---
OT Current Status-Daily Note Subjective Pt seen in gym, agreeable to OT. No pain mentioned. She indicated that she would like to go back to her apartment by the end of this week and feels like she is close to her baseline Appearance Alert, cooperative Mental Status/Objective Functional [place] Measure 0=Not Assessed/NA 4=Minimal Assistance 1=Total Assistance 5=Supervision or Setup 2=Maximal Assistance 6=Modified [place] 3=Moderate Assistance 7=Complete [place] ADL-Treatment Pt walked back to room with SBA for safety, FWW, no LOB observed. Pt agreeable to ADLs. Walked to bathroom, SBA, FWW and stood at shower, holding on to grab bars, to step out of shoes and take gown off. No LOB observed. She sat to take pants off, rather than stepping out of them, with OT encouragement. She was able to wash and dry all parts, using hand held shower. She pulled up from shower bench using grab bars and walked to [facility] over toilet to dress. She was able to dress with setup, including shoes, and walked to sink to wash face and hands. She stood at sink with FWW to the side and said that this is how she does it in her apartment. No LOB observed. She returned to the recliner for brief recovery time, then walked to gym. Functional [place] Measure 0=Not Assessed/NA 4=Minimal Assistance 1=Total Assistance 5=Supervision or Setup 2=Maximal Assistance 6=Modified [place] 3=Moderate Assistance 7=Complete IndependenceIRFPAI Quality Coding Scale 6 Independent with activity with or without an assistive device 5 Patient requires set up or clean up by helper. Patient completes activity by themselves 4 Supervision or touching assist (CGA). [place] provide cues , steadying assist 3 The helper provides less than half the effort to complete the activity 2 The helper provides more than half the effort to complete the activity 1 Dependent. The helper does all the effort to complete an activity 7 Patient refused to complete or attempt activity 9 The patient did not perform the activity before the current illness or injury 88 Not attempted due to Medical conditions or safety concerns Grooming (FIM): 5 (SBA at sink to wash face and hands, brush hair) Bathing (FIM): 5 (Turned water on and off and retrieved towel from bar. Washed and dried all parts, using long handled sponge, shower bench, grab bars, hand held shower. Supervision for safety) Upper Body (FIM): 5 (Stood with supervision to doff and don shirt, FWW for balance) Lower Body Dressing (FIM): 5 (Doffed and donned pants. Doffed shoes while standing and encouraged to sit to put them on, rather than step into them) Toilet/Commode Transfer (FIM): 5 (SBA, getting on and off BSC over toilet) Shower Transfer(FIM): 5 (SBA getting in and out of shower, on and off shower bench) Other Treatment Pt walked back to gym with SBA for safety, FWW. Got up and down from chair with arms, needing to rock a few time to get up. She did 12 minutes bilat UE exercise on arm bike set at 15W resistance and also competed strengthening activity with [employer] (strong resistance). She reported that her shoulders were a little sore and thought that this was from using the arm bike so did not increase time or resistance. Walked back to room with SBA, FWW and no LOB. Got into recliner and wa left up in chair, alarm on, all needs met. Education OT Patient Education: Modified ADL techniques, Progress toward Goal/Update tx plan, Purpose of tx/functional activities, Safety issues, Use of adapted equipment Teaching Recipient: Patient Teaching Methods: Discussion Response to Teaching: Verbalize Understanding, Return Demonstration, Reinforcement Needed OT Short Term Goals Short Term Goals Time Frame: Mar 18, 2018 Eating(FIM): 5 Grooming(FIM): 5 Bathing(FIM): 5 Upper Body Dressing(FIM): 5 Lower Body Dressing(FIM): 5 Toileting(FIM): 5 Transfers (B,C,W/C) (FIM): 5 Toilet/Commode Transfer(FIM): 5 Shower Transfer(FIM): 5 Additional Short Term Goals: 1-Demonstrate ADL Tasks, 2-Verbalize Understanding , 3-ImproveStrength/[place] 1=Demonstrate adherence to instructed precautions during ADL tasks. 2=Patient will verbalize/demonstrate understanding of assistive devices/ modifications for ADL. 3=Patient will improve strength/tolerance for activity to enable patient to perform ADL's. OT Snf Goals Snf Goals Time Frame: Mar 25, 2018 Eating (FIM): 6 Eating (QC): 6 Groomin Oral Hygiene (QC): 6 Bathing(FIM): 5 Shower/Bathe Self (QC): 5 Upper Body Dressing(FIM): 6 Upper Body Dressing (QC): 6 Lower Body Dressing(FIM): 6 Lower Body Dressing (QC): 6 On/Off Footwear (QC): 6 Toileting(FIM): 6 Toileting Hygiene (QC): 6 Transfers (B,C,W/C) (FIM): 6 Toilet/Commode Transfer(FIM): 6 Toilet/Commode Transfer (QC): 6 Shower Transfer(FIM): 5 Additional Goals: 1-Demonstrate ADL Tasks, 2-Verbalize Understanding, 3- ImproveStrength/[place] 1=Demonstrate adherence to instructed precautions during ADL tasks. 2=Patient will verbalize/demonstrate understanding of assistive devices/ modifications for ADL. 3=Patient will improve strength/tolerance for activity to enable patient to perform ADL's. OT Education/Plan Discharge Recommendations Plan/Recommendations: Continue POC Treatment Plan/Plan of Care Patient would benefit from OT for education, treatment and training to promote independence in ADL's, mobility, safety and/or upper extremity function for ADL' s. Plan of Care: ADL Retraining, Functional Mobility, UE Funct Exercise/Act Treatment Duration: Mar 25, 2018 Frequency: At least 5 of 7 days/Wk (IRF) Estimated Hrs Per Day: 1.5 hours per day Rehab Potential: Good Time/GCodes Start Time: 09:00 Stop Time: 10:30 Total Time Billed (hr/min): 90 Billed Treatment Time visit, 60 minutes ADL, 30 minutes exercise JANNET COREY OT Mar 16, 2018 10:49
[2018-03-16] MEDS ORDERED: ANTACID SUSP 30 ML UDC (MYLANTA) PO PRN (11:30)
[2018-03-16] MEDS ORDERED: ONDANSETRON 4 MG (ZOFRAN) ORAL DISSOLVE TAB PO PRN (12:00)
--- NOTE | 2018-03-16 12:43 | Physical Therapy Daily Note ---
PT Daily Note-Current Subjective Pt sitting in recliner upon arrival. Pt agrees to PT. Pain Numeric Pain Scale: 4 Location: Right Location Body Site: Knee Pain Description: Ache Mental Status Patient Orientation: Person, Place Transfers Functional [place] Measure 0=Not Assessed/NA 4=Minimal Assistance 1=Total Assistance 5=Supervision or Setup 2=Maximal Assistance 6=Modified [place] 3=Moderate Assistance 7=Complete IndependenceIRFPAI Quality Coding Scale 6 Independent with activity with or without an assistive device 5 Patient requires set up or clean up by helper. Patient completes activity by themselves 4 Supervision or touching assist (CGA). [place] provide cues , steadying assist 3 The helper provides less than half the effort to complete the activity 2 The helper provides more than half the effort to complete the activity 1 Dependent. The helper does all the effort to complete an activity 7 Patient refused to complete or attempt activity 9 The patient did not perform the activity before the current illness or injury 88 Not attempted due to Medical conditions or safety concerns Scootin Sit to/from Stand: 5 Sit to Stand (QC): 5 Weight Bearing Right Lower Extremity: Right Full Weight Bearing Left Lower Extremity: Left Full Weight Bearing Gait Training Does the Patient Walk?: Yes Distance (FIM): 3=150 ft Distance: 150' Walk 10 feet (QC): 5 Walk 50 ft with 2 Turns(QC): 5 Walk 150 ft (QC): 5 Gait Level of Assist: 5 Gait Persons Needed: 1 Gait Assistive Device: FWW Pt walks at normal ricky, slightly kyphotic posture. Wheelchair Training Does the Pt Use a Wheelchair?: No Stair Training Stair Training: Handrails/: 2 handrails #of Steps: 4 1 Step (curb) (QC): 5 4 Steps (QC): 5 Stairs: Pattern: Step to Level of Assist: 5 Exercises Seated Therapy Exercises: Ankle pumps, Long arc quads, Hip flexion, Kicking activity, Hip abd/add Seated Reps: 15 NuStep Minutes: 13 NuStep Workload: 3 Treatments Pt transfers from recliner using FWW at [facility]. Pt ambulates using FWW at [facility]. Pt uses restroom then ambulates to Therapy Gym. Pt uses NuStep for 13m at 3. Pt completes Seated Ex then takes rest before stairs. Pt completes 1 set of 4 steps then returns to room to rest. Pt then goes with OT for tx. Assessment Current Status: Good Progress Pt fatigues and needs rest breaks as needed. Pt is confused at times. PT Short Term Goals Short Term Goals Time Frame: Mar 18, 2018 Transfers (B,C,W/C) (FIM): 5 Gait (FIM): 5 Distance (FIM): 3=150 ft Gait Assistive Device: FWW PT Skilled Nursing Goals Skilled Nursing Goals PT Telephonic Nurse Case Manager Goals Time Frame: Mar 26, 2018 Transfers (B,C,W/C) (FIM): 6 Sit to Lying (QC): 6 Lying-Sitting on Side/Bed(QC): 6 Sit to Stand (QC): 6 Rollin Roll Left to Right (QC): 6 Chair/Egi-us-Oxbgw Xfer(QC): 6 Car Transfer (QC): 5 Does the Patient Walk: Yes Gait (FIM): 6 Gait distance (FIM): 3=150 ft Walk 10 feet (QC): 6 Walk 10ft-Uneven Surface(QC): 6 Walk 50ft with 2 Turns (QC): 6 Walk 150 ft (QC): 6 Gait Level of Assist: 6 Gait Assistive Device: FWW Stairs (FIM): 2 # of Steps: 4 1 Step (curb) (QC): 5 4 Steps (QC): 4 12 Steps (QC): 88 Picking up an Object (QC): 88 PT Plan Problem List Problem List: Activity Tolerance, Functional Strength, Safety, Balance, Gait Treatment/Plan Treatment Plan: Continue Plan of Care Treatment Plan: Bed Mobility, Education, Functional Activity Mary Ann, Functional Strength, Group Therapy, Gait, Safety, Therapeutic Exercise, Transfers Treatment Duration: Mar 25, 2018 Frequency: At least 5 of 7 days/Wk (IRF) Estimated Hrs Per Day: 1.5 hours per day Patient and/or Family Agrees t: Yes Safety Risks/Education Patient Education: Gait Training, Transfer Techniques, Correct Positioning, Safety Issues Teaching Recipient: Patient Teaching Methods: Discussion Response to Teaching: Verbalize Understanding Time/GCodes Time In: 800 Time Out: 900 Total Billed Treatment Time: 60 Total Billed Treatment 1, GT (15m), FA (15m) & EX x2 (30m) G Codes Necessary: No RONIT PAVON ORACLE ASCP CONSULTANT Mar 16, 2018 12:43
--- NOTE | 2018-03-16 13:23 | Physical Therapy Daily Note ---
PT Daily Note-Current Subjective Patient c/o N & V with nursing confirming. Patient c/o abdominal pain. Pain Numeric Pain Scale: 5-Moderate Pain Location: Medial Location Body Site: Abdomen Pain Description: Acute Mental Status Patient Orientation: Normal For Age Transfers Functional [place] Measure 0=Not Assessed/NA 4=Minimal Assistance 1=Total Assistance 5=Supervision or Setup 2=Maximal Assistance 6=Modified [place] 3=Moderate Assistance 7=Complete IndependenceIRFPAI Quality Coding Scale 6 Independent with activity with or without an assistive device 5 Patient requires set up or clean up by helper. Patient completes activity by themselves 4 Supervision or touching assist (CGA). [place] provide cues , steadying assist 3 The helper provides less than half the effort to complete the activity 2 The helper provides more than half the effort to complete the activity 1 Dependent. The helper does all the effort to complete an activity 7 Patient refused to complete or attempt activity 9 The patient did not perform the activity before the current illness or injury 88 Not attempted due to Medical conditions or safety concerns Transfers (B, C, W/C) (FIM): 5 Scootin Sit to/from Stand: 5 Sit to Stand (QC): 5 Weight Bearing Right Lower Extremity: Right Full Weight Bearing Left Lower Extremity: Left Full Weight Bearing Gait Training Does the Patient Walk?: Yes Gait (FIM): 1 Distance (FIM): 1=up to 49 ft Distance: 15' x 2 Walk 10 feet (QC): 5 Gait Level of Assist: 5 Gait Assistive Device: FWW slow, steady gait sequence Assessment PT assist for dressing and changing patient after BM and incontinent urine. Patient is up in recliner with needs met. Treatment ceased due to illness. PT Short Term Goals Short Term Goals Time Frame: Mar 18, 2018 Transfers (B,C,W/C) (FIM): 5 Gait (FIM): 5 Distance (FIM): 3=150 ft Gait Assistive Device: FWW PT Radiotelegrapher Goals Skilled Nursing Goals PT Radiotelegrapher Goals Time Frame: Mar 26, 2018 Transfers (B,C,W/C) (FIM): 6 Sit to Lying (QC): 6 Lying-Sitting on Side/Bed(QC): 6 Sit to Stand (QC): 6 Rollin Roll Left to Right (QC): 6 Chair/Bjn-pk-Mtldi Xfer(QC): 6 Car Transfer (QC): 5 Does the Patient Walk: Yes Gait (FIM): 6 Gait distance (FIM): 3=150 ft Walk 10 feet (QC): 6 Walk 10ft-Uneven Surface(QC): 6 Walk 50ft with 2 Turns (QC): 6 Walk 150 ft (QC): 6 Gait Level of Assist: 6 Gait Assistive Device: FWW Stairs (FIM): 2 # of Steps: 4 1 Step (curb) (QC): 5 4 Steps (QC): 4 12 Steps (QC): 88 Picking up an Object (QC): 88 PT Plan Treatment/Plan Treatment Plan: Continue Plan of Care Treatment Plan: Bed Mobility, Education, Functional Activity Mary Ann, Functional Strength, Group Therapy, Gait, Safety, Therapeutic Exercise, Transfers Treatment Duration: Mar 25, 2018 Frequency: At least 5 of 7 days/Wk (IRF) Estimated Hrs Per Day: 1.5 hours per day Patient and/or Family Agrees t: Yes Time/GCodes Time In: 1300 Time Out: 1315 Total Billed Treatment Time: 15 Total Billed Treatment 1 visit FA 15 min FELISA VERA PT Mar 16, 2018 13:23
[2018-03-16 13:50] VITALS: BP 137/81
--- NOTE | 2018-03-16 15:13 | PM & R (SOAP) Progress Note ---
Subjective This was a face to face visit with the patient. Date Seen by Provider: Mar 16, 2018 Time Seen by Provider: 07:45 Subjective/Events-last exam Patient was seen in her room this AM Patient SBA for transfers C/O dyspepsia later this afternoon Discussed with GEOVANNA Da Silva ordered HTn better contrtolled with adjustment in meds by DR cortez F/U with DR Cortez as needed re dyspepsia Review of Systems Gastrointestinal: Nausea Objective Physician Exam Last Set of Vital Signs Vital Signs Date Time Temp Pulse Resp B/P (MAP) Pulse Ox O2 Delivery O2 Flow Rate FiO2 03/16/18 13:50 97.2 72 18 137/81 (99) 98 Room Air Capillary Refill : I&O Intake and Output 03/16/18 00:00 Intake Total 1250 ml Balance 1250 ml Intake Oral 1250 ml # Voids 8 # Bowel Movements 1 General: Alert, Oriented X3, Cooperative, No Acute Distress HEENT: Atraumatic, PERRLA, EOMI, Mucous Memb Moist/[place] Neck: Supple, No JVD Lungs: Clear to Auscultation Heart: Regular Rate Abdomen: Normal Bowel Sounds, Soft, No Tenderness, Other Extremities: Other Neuro: Other Results Lab Data Laboratory Tests 03/13/18 16:04: Glucometer 159H 03/13/18 20:41: Glucometer 193H 03/14/18 05:45: Glucometer 100 03/14/18 16:24: Glucometer 145H 03/15/18 06:09: Glucometer 112H 03/15/18 12:18: Sodium Level 139, Potassium Level 5.0, Chloride Level 104, Carbon Dioxide Level 24, Anion Gap 11, Blood Urea Nitrogen 21H, Creatinine 0.81, Estimat Glomerular Filtration Rate > 60, BUN/Creatinine Ratio 26, Glucose Level 187H, Calcium Level 9.1 03/15/18 16:16: Glucometer 164H 03/16/18 04:15: Glucometer 105 Assessment/Plan Assessment and Plan 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 TIA on Plavix Thrombocytopenia Anemia HTN better controlled with adjustment in meds DM2 controlled Dyspepsia meds adjusted monitor Hx of DVT s/p [place] filter S/P left shoulder surgery Plan Continue PT/OT Team Conference tomorrow Monitor Blood pressure and adjust meds as needed Monitor for any further dyspepsia Goal return home to [facility] at [facility] or better (1) CVA (cerebral vascular accident) Qualifiers: Qualified Codes: I63.9 - Cerebral infarction, unspecified Status: Acute Co-Morbidities that are continuing to impact the rehab process: (include details ) HECTOR BRITT MD Mar 16, 2018 15:13
[2018-03-16 15:46] VITALS: BP 125/74
[2018-03-16] MEDS ORDERED: NS 100 ML (IVPB) BAG IV ONE (19:45)
[2018-03-16] MEDS ORDERED: IOHEXOL 350 MG/ML 100 ML (OMNIPAQUE 350) VIAL IV ONE (19:45)
[2018-03-16] MEDS: SIMvastatin 20 MG (ZOCOR) TAB PO SCH (20:00)
--- NOTE | 2018-03-16 21:23 | Diagnostic Imaging Report ---
Clinical indication: Patient with abdominal pain and nausea, vomiting x3. Recent history of CVA. Exam: CT scan of the abdomen and pelvis performed without IV or enteric contrast. Coronal and sagittal reformatted images are created. Comparison: CT scan of the abdomen and pelvis without contrast dated 04/01/2010. Findings: There is no significant change to the small calcified granuloma in the lateral left lung base. There are hypertrophic spurs involving both hips, visualized lower thoracic spine, and lumbar spine. There is interval development of a small amount of ascites seen in both upper quadrant regions and along the left lateral aspect of the abdomen. There is no intra-abdominal free air. The liver, spleen and adrenal glands are unremarkable. Stable roughly 2.1 cm x 1.8 cm cystic lesion involving the tail of the pancreas, likely benign. Otherwise pancreas is unremarkable with mild atrophic changes for patient's age. There is interval development of high density layering debris within the gallbladder which may represent stones or sludge. There is no CT evidence of acute cholecystitis. There is atrophy of both kidneys again noted. There is interval development of a 13 mm cystic structure involving the anterior aspect of the right kidney. Otherwise both kidneys are unremarkable with no hydronephrosis or stones. There is diverticulosis which has progressed involving the sigmoid colon and descending colon. There is no gross CT evidence of diverticulitis. There is interval development of multiple loops of bowel wall thickening with mild air distention seen in the left lower abdominal region. There is mild mesenteric fat stranding and small mesenteric lymph nodes. The appendix is not delineated on this exam and may be surgically absent or obscured by fluid adjacent vascular structures. Pelvic structures show no significant interval abnormality. Bladder is predominantly decompressed. There is bladder wall thickening which may be due to incomplete distention. Atrophy of musculature is noted compared to the prior study which has progressed. IMPRESSION: 1: There is interval development of multiple loops of small bowel with associated bowel wall thickening involving left side of the lower abdomen. There is mild mesenteric fat stranding and small mesenteric lymph nodes. This may represent enteritis. 2: There is interval development of a small amount of ascites. 3: Interval development of cholelithiasis with no CT evidence of cholecystitis. 4: There is interval progression of diverticulosis with no CT evidence of diverticulitis. Dictated by: Dictated on workstation # [id number]
[2018-03-17] VITALS (15 sets, daily range): BP systolic 87–171; BP diastolic 55–74
[2018-03-17] MEDS: PANTOPRAZOLE 40 MG (PROTONIX) TAB PO SCH (06:00)
[2018-03-17] MEDS: metFORMIN 500 MG (GLUCOPHAGE) TAB PO SCH (06:00)
--- NOTE | 2018-03-17 07:12 | PM & R (SOAP) Progress Note ---
Subjective This was a face to face visit with the patient. Date Seen by Provider: Mar 17, 2018 Time Seen by Provider: 07:00 Subjective/Events-last exam Patient was seen in her room this AM Reviewed CT Abdomen with RN Patient groogy but no further emesis CT reveals cholelithiasis will f/u with DR Cortez re any further RX.Patient appear a bit dehydrated may need to recheck labs.Patient SBA for transfers Objective Physician Exam Last Set of Vital Signs Vital Signs Date Time Temp Pulse Resp B/P (MAP) Pulse Ox O2 Delivery O2 Flow Rate FiO2 03/17/18 06:32 97.9 62 17 145/67 (93) 97 Room Air Capillary Refill : I&O Intake and Output 03/17/18 00:00 Intake Total 1120 ml Output Total 1 ml Balance 1119 ml Intake Oral 1120 ml Output Oral Regurgitation 1 ml # Voids 10 # Bowel Movements 2 General: Alert, Oriented X3, Cooperative, No Acute Distress HEENT: Atraumatic, PERRLA, EOMI, Mucous Memb Moist/[place] Neck: Supple, No JVD Lungs: Clear to Auscultation Heart: Regular Rate Abdomen: Normal Bowel Sounds, Soft, No Tenderness, Other Extremities: Other Neuro: Other Results Lab Data Laboratory Tests 03/14/18 16:24: Glucometer 145H 03/15/18 06:09: Glucometer 112H 03/15/18 12:18: Sodium Level 139, Potassium Level 5.0, Chloride Level 104, Carbon Dioxide Level 24, Anion Gap 11, Blood Urea Nitrogen 21H, Creatinine 0.81, Estimat Glomerular Filtration Rate > 60, BUN/Creatinine Ratio 26, Glucose Level 187H, Calcium Level 9.1 03/15/18 16:16: Glucometer 164H 03/16/18 04:15: Glucometer 105 03/16/18 15:55: Glucometer 133H 03/17/18 05:35: Glucometer 119H Assessment/Plan Assessment and Plan CVA with generalized weakness and Gait instability TIA on Plavix Thrombocytopenia Anemia HTN better controlled DM 2 controlled Cholelithiasis with N/V better this AM Hx of DVT s/p [place] filter S/P left shoulder surgery Plan Continue PT/OT Recheck Labs F/U with DR cortez PCP re CT abdomen findings Team Conference later today-See report for full functional update and POC and ELOS (1) CVA (cerebral vascular accident) Qualifiers: Qualified Codes: I63.9 - Cerebral infarction, unspecified Status: Acute Co-Morbidities that are continuing to impact the rehab process: (include details ) HECTOR BRITT MD Mar 17, 2018 07:12
[2018-03-17] MEDS ORDERED: NS IV 1000 ML 1,000 ML IV SCH ×3 (08:15→22:30)
[2018-03-17] MEDS ORDERED: NS IV 1000 ML 1,000 ML ONE ×2 (08:16→20:30)
[2018-03-17 08:18] LABS: ALBUMIN 2.8 GM/DL (3.2-4.5); BILIRUBIN,TOTAL 1.1 MG/DL (0.1-1.0); CALCIUM 8.7 MG/DL (8.5-10.1); CREATININE SERUM 1.32 MG/DL (0.60-1.30); POTASSIUM 4.7 MMOL/L (3.6-5.0); TOTAL PROTEIN 5.6 GM/DL (6.4-8.2)
--- NOTE | 2018-03-17 08:35 | Progress Note (SOAP) ---
Subjective Time Seen by Provider: 08:30 Subjective/Events-last exam Patient vomited last night. Patient complaining of abdominal pain last night. Patient had a CAT scan without contrast. This morning patient's blood pressure went low. Patient had trouble communicating. Patient a little confused Patient has renal insufficiency. Patient to have a bolus of fluid. Patient not to get an IV in. Anesthesiology putting NIV now Objective Exam Vital Signs Date Time Temp Pulse Resp B/P (MAP) Pulse Ox O2 Delivery O2 Flow Rate FiO2 03/17/18 06:32 97.9 62 17 145/67 (93) 97 Room Air 03/16/18 20:21 Room Air 03/16/18 15:46 97.6 68 20 125/74 (91) 99 Room Air 03/16/18 13:50 97.2 72 18 137/81 (99) 98 Room Air 03/16/18 08:52 Room Air I & O 03/17/18 07:00 Intake Total 800 ml Output Total 1 ml Balance 799 ml Capillary Refill : General Appearance: WD/WN Respiratory: Lungs Clear, No Accessory Muscle Use, No Respiratory Distress Cardiovascular: Regular Rate, Rhythm Gastrointestinal: non tender, soft Results Lab Laboratory Tests 03/16/18 15:55: Glucometer 133H 03/17/18 05:35: Glucometer 119H 03/17/18 07:49: Sodium Level 141, Potassium Level 4.7, Chloride Level 105, Carbon Dioxide Level 28, Anion Gap 8, Blood Urea Nitrogen 31H, Creatinine 1.32H, Estimat Glomerular Filtration Rate 39, BUN/Creatinine Ratio 23, Glucose Level 135H, Calcium Level 8.7, Total Bilirubin 1.1H, Aspartate Amino Transf (AST/SGOT) 17, Alanine Aminotransferase (ALT/SGPT) 10, Alkaline Phosphatase 64, Total Protein 5.6L, Albumin 2.8L 03/17/18 07:53: Glucometer 119H Assessment/Plan Assessment/Plan Assess & Plan/Chief Complaint Sheet CVA history. Diabetes. Dysphagia. Dysarthria. Diabetes. Obesity. Hypertension. . 03/15/18. Acute CVA. Diabetes. Dysphagia better. Dysarthria better. Diabetes under good control. Obesity. HYPERTENSION. Patient feel she is improving. . 03/17/17. Patient having symptoms a stroke. Patient not talking well. Patient has renal insufficiency today. Patient vomited last night. Patient had abdominal pain last night. Patient able to move all extremities. Clinical Quality Measures DVT/VTE Risk/Contraindication: Risk Factor Score Per Nursin RFS Level Per Nursing on Admit: 4+=Very High ADEN LEE DO Mar 17, 2018 08:35
[2018-03-17 09:12] LABS: BASOPHILS % (AUTO) 0 % (0-10); EOSINOPHILS # (AUTO) 0.2 10^3/uL (0.0-0.3); EOSINOPHILS % (AUTO) 2 % (0-10); HEMATOCRIT 38 % (35-52); HEMOGLOBIN 12.9 G/DL (11.5-16.0); LYMPHOCYTES # (AUTO) 1.2 X 10^3 (1.0-4.0); LYMPHOCYTES % (AUTO) 15 % (12-44); MEAN CORPUSCULAR HEMOGLOBIN 30 PG (25-34); MEAN CORPUSCULAR HGB CONC 34 G/DL (32-36); MEAN CORPUSCULAR VOLUME 89 FL (80-99); MEAN PLATELET VOLUME 10.6 FL (7.4-10.4); MONOCYTES % (AUTO) 12 % (0-12); NEUTROPHILS # (AUTO) 5.7 X 10^3 (1.8-7.8); NEUTROPHILS % (AUTO) 70 % (42-75); PLATELET COUNT 132 10^3/uL (130-400); RED BLOOD COUNT 4.28 10^6/uL (4.35-5.85); WHITE BLOOD COUNT 8.1 10^3/uL (4.3-11.0)
--- NOTE | 2018-03-17 10:23 | Diagnostic Imaging Report ---
INDICATION: Stroke. COMPARISON: Comparison is made with prior CT from 03/08/2018. FINDINGS: The ventricles and sulci are within normal limits. No sulcal effacement, midline shift or hemorrhage is detected. Cisterns are patent. Visualized paranasal sinuses are clear. IMPRESSION: No acute intracranial process is detected. Results were given to the patient's RN Reta prior to this dictation. Dictated by: Dictated on workstation # [id number]
--- NOTE | 2018-03-17 10:36 | Consultation-Cardiology ---
HPI-Cardiology Cardiology Consultation: Date of Consultation 03/17/18 Time Seen by Provider: 10:10 Date of Admission 03-11-18 Attending Physician Willie Rosenthal MD Admitting Physician Ba Cortez DO Consulting Physician REBEL ALVA HPI: Chief Complaint: CVA Ms. Perez is a 77 year old female who resides at [facility]. She was admitted on 03-08 with CVA. She was transferred to [facility] on 03-11-18. She was previously coherent and appropriate conversation. She was able to carry out daily activities with assist only. This morning nursing found her to be disoriented. Her speech was garbled. Nursing reports she became nauseated and hypotensive (114 systolic). They laid her down and her BP increased to 145 systolic. Stroke team was activated. She was not reporting any c/o CP, palpitations, dyspnea or syncope. She has been for CT of the head. She is currently sitting in a recliner at the bedside. She is able to move all extremities with equal insole tape stitcher uco and strength. Her speech is garbled. She is able to answer questions with a yes or no response. Review of Systems-Cardiology Review of Systems Eyes: No vision change Ears/Nose/Throat: No epistaxis Respiratory: As described under HPI Cardiovascular: As described under HPI Gastrointestinal: No nausea, No vomiting Genitourinary: No dysuria Musculoskeletal: no symptoms reported Skin: No rash Psychiatric/Neurological: No syncope YME-Togvdi-Lftbny Hx Patient Social History Alcohol Use: Denies Use Recreational Drug Use: No Smoking Status: Never a Smoker Recent Foreign Travel: No Recent Infectious Disease Expo: No Physical Abuse Screen: No Sexual Abuse: No Immunizations Up To Date Tetanus Booster (TDap): More than 5yrs Date of Pneumonia Vaccine: Aug 07, 2016 Date of Influenza Vaccine: Jun 09, 2016 Past Medical History PMH As described under Assessment. Family Medical History Family History: Myocardial infarction Allergies and Home Medications Allergies Coded Allergies: Penicillins (Unverified Allergy, Unknown, 12/21/06) codeine (Unverified Allergy, Unknown, 12/21/06) aspirin (Verified Adverse Reaction, Unknown, NAUSEA, 10/07/16) Home Medications C,E,Zinc,Copper 11/Yamyn3f/Lut 1 Each Capsule, 1 CAP PO DAILY, (Reported) D-Methorphan Hb/Prometh HCl 118 Ml Syrup, 2 TSP PO Q8H PRN for COUGH, (Reported) Fesoterodine Fumarate 4 Mg Tab.sr.24h, 4 MG PO DAILY, (Reported) Fish Oil/Dha/Epa 1 Each Capsule, 1,200 MG PO BID, (Reported) Furosemide 40 Mg Tablet, 40 MG PO DAILY, (Reported) Metformin HCl 500 Mg Tablet, 500 MG PO BID, (Reported) Omeprazole 40 Mg Capsule.dr, 40 MG PO DAILY, (Reported) Simvastatin 20 Mg Tablet, 20 MG PO HS, (Reported) Telmisartan 80 Mg Tablet, 80 MG PO DAILY, (Reported) Patient Home Medication List Home Medication List Reviewed: Yes Physical Exam-Cardiology Physical Exam Vital Signs/I&O 03/18/18 03/18/18 03/18/18 03/18/18 01:00 02:19 05:18 07:00 Temp 97.5 97.9 Pulse 60 68 60 61 Resp 16 18 B/P (MAP) 138/75 (96) 161/73 (102) Pulse Ox 97 99 O2 Delivery Room Air Room Air 03/18/18 09:00 O2 Delivery Room Air 03/18/18 00:00 Intake Total 1740 ml Output Total 100 ml Balance 1640 ml Capillary Refill : Constitutional: well-developed, well-nourished HEENT: hearing is well preserved, oral hygience is good Neck: No carotid bruit; carotid pulses are 2 + bilaterally Respiratory: No accessory muscle use, No respiratory distress; lungs clear to auscultation Cardiovascular: regular rate-rhythm; No JVD; S1 and S2 Gastrointestinal: audible bowel sounds Rectal: deferred Extremities: no lower extremity edema bilateral Neurologic/Psychiatric: other (garbled speech) Skin: No rash, No ulcerations Data Review Labs Laboratory Tests 03/17/18 15:46: Glucometer 149H 03/18/18 05:06: Glucometer 93 03/18/18 05:20: White Blood Count 5.2, Red Blood Count 3.75L, Hemoglobin 11.0L, Hematocrit 34L, Mean Corpuscular Volume 91, Mean Corpuscular Hemoglobin 29, Mean Corpuscular Hemoglobin Concent 32, Red Cell Distribution Width 15.2H, Platelet Count 114L, Mean Platelet Volume 10.8H, Neutrophils (%) (Auto) 55, Lymphocytes (%) (Auto) 30 , Monocytes (%) (Auto) 9, Eosinophils (%) (Auto) 5, Basophils (%) (Auto) 0, Neutrophils # (Auto) 2.9, Lymphocytes # (Auto) 1.6, Monocytes # (Auto) 0.5, Eosinophils # (Auto) 0.3, Basophils # (Auto) 0.0, Neutrophils % (Manual) 67, Lymphocytes % (Manual) 26, Monocytes % (Manual) 4, Eosinophils % (Manual) 2, Basophils % (Manual) 1, Poikilocytosis SLIGHT, Spherocytes SLIGHT, Rouleau SLIGHT, Sodium Level 144, Potassium Level 4.0, Chloride Level 110H, Carbon Dioxide Level 26, Anion Gap 8, Blood Urea Nitrogen 36H, Creatinine 1.34H, Estimat Glomerular Filtration Rate 38, BUN/Creatinine Ratio 27, Glucose Level 104, Calcium Level 8.3L, Total Bilirubin 1.2H, Aspartate Amino Transf (AST/SGOT ) 17, Alanine Aminotransferase (ALT/SGPT) 11, Alkaline Phosphatase 64, Total Protein 5.4L, Albumin 2.8L Radiology NAME: KATHARINE PEREZ [facility] REC#: [id number] PT STATUS: ADM IN : 1940 PHYSICIAN: PALOMO BOWER MD, MA, FACP, FACC, FSCAI, CCDS ADMIT DATE: 03/11/18/[facility] Draft Date of Exam:03/17/18 CT HEAD WO-R/O STROKE INDICATION: Stroke. COMPARISON: Comparison is made with prior CT from 03/08/2018. FINDINGS: The ventricles and sulci are within normal limits. No sulcal effacement, midline shift or hemorrhage is detected. Cisterns are patent. Visualized paranasal sinuses are clear. IMPRESSION: No acute intracranial process is detected. Results were given to the patient's RN Reta prior to this dictation. Dictated on workstation # [id number] Dict: 03/17/18 1015 Trans: 03/17/18 1022 [facility] [id number] Interpreted by: DELORES POND MD Electronically signed by: ECG Impression ECG Initial ECG Rhythm: Normal Sinus A/P-Cardiology Assessment/Admission Diagnosis Acute CVA No angiographically significant coronary artery disease, normal global left ventricular systolic function with an ejection fraction of approximately 60 to 65%, elevated left ventricular end-diastolic pressure indicative of some degree of diastolic dysfunction of the left ventricle, and no significant mitral regurgitation per cardiac catheterization from 01/06/12. Maturity onset diabetes mellitus. Hypertension, currently controlled. Mild aortic valve sclerosis without significant aortic stenosis. Mild mitral and tricuspid regurgitation. LVEF 60% per echo of July 2013. Chronic bilateral leg swelling, likely related to venous insufficiency. Hyperlipidemia, chronically being treated with simvastatin and being managed by Dr. Cortez. Chronic mild anemia and mild thrombocytopenia being managed by Dr. Cortez. Chronic back pain and degenerative joint disease. Pulmonary artery systolic pressure is estimated to be approximately 40 mmHg per echocardiogram from 08/18/2013, which is unchanged from 2012. Elevated BMI of approx 45 Discussion and Recomendations Clinical Quality Measures DVT/VTE Risk/Contraindication: Risk Factor Score Per Nursin RFS Level Per Nursing on Admit: 4+=Very High REBEL IVY Mar 17, 2018 10:36
[2018-03-17] MEDS ORDERED: FAMOTIDINE 20 MG (PEPCID) TABLET PO NR (10:45)
[2018-03-17] MEDS ORDERED: ASPIRIN E.C. 81 MG (ECOTRIN) TAB PO NR (10:45)
--- NOTE | 2018-03-17 11:15 | Physical Therapy Daily Note ---
PT Daily Note-Current Subjective This POTATO SORTER entered room to check patient status as nursing relates that pt. is episodic. Pt. in full reclined position, LEs elevated. When pt. was address she attempted to answer and converse but was unable , jumbled words and slurring. Nursing advises pt. will be on HOLD for therapies and consulting physicians are being contacted. Mental Status Patient Orientation: Confused Transfers Functional [place] Measure 0=Not Assessed/NA 4=Minimal Assistance 1=Total Assistance 5=Supervision or Setup 2=Maximal Assistance 6=Modified [place] 3=Moderate Assistance 7=Complete IndependenceIRFPAI Quality Coding Scale 6 Independent with activity with or without an assistive device 5 Patient requires set up or clean up by helper. Patient completes activity by themselves 4 Supervision or touching assist (CGA). [place] provide cues , steadying assist 3 The helper provides less than half the effort to complete the activity 2 The helper provides more than half the effort to complete the activity 1 Dependent. The helper does all the effort to complete an activity 7 Patient refused to complete or attempt activity 9 The patient did not perform the activity before the current illness or injury 88 Not attempted due to Medical conditions or safety concerns Weight Bearing Right Lower Extremity: Right Full Weight Bearing Left Lower Extremity: Left Full Weight Bearing Assessment Current Status: Hold Per Dr/Nursing, No Treatment/Other Tests see above PT Short Term Goals Short Term Goals Time Frame: Mar 18, 2018 Transfers (B,C,W/C) (FIM): 5 Gait (FIM): 5 Distance (FIM): 3=150 ft Gait Assistive Device: FWW PT Fci Goals Relay Tester Helper Goals PT Fci Goals Time Frame: Mar 26, 2018 Transfers (B,C,W/C) (FIM): 6 Sit to Lying (QC): 6 Lying-Sitting on Side/Bed(QC): 6 Sit to Stand (QC): 6 Rollin Roll Left to Right (QC): 6 Chair/Cpd-wg-[place] Xfer(QC): 6 Car Transfer (QC): 5 Does the Patient Walk: Yes Gait (FIM): 6 Gait distance (FIM): 3=150 ft Walk 10 feet (QC): 6 Walk 10ft-Uneven Surface(QC): 6 Walk 50ft with 2 Turns (QC): 6 Walk 150 ft (QC): 6 Gait Level of Assist: 6 Gait Assistive Device: FWW Stairs (FIM): 2 # of Steps: 4 1 Step (curb) (QC): 5 4 Steps (QC): 4 12 Steps (QC): 88 Picking up an Object (QC): 88 PT Plan Treatment/Plan Treatment Plan: Continue Plan of Care Treatment Plan: Bed Mobility, Education, Functional Activity Mary Ann, Functional Strength, Group Therapy, Gait, Safety, Therapeutic Exercise, Transfers Treatment Duration: Mar 25, 2018 Frequency: At least 5 of 7 days/Wk (IRF) Estimated Hrs Per Day: 1.5 hours per day Patient and/or Family Agrees t: Yes Time/GCodes Time In: 800 Time Out: 805 Total Billed Treatment Time: 0 Total Billed Treatment 1, No Rx, No Chg G Codes Necessary: No CHAR ANTUNEZ POTATO SORTER Mar 17, 2018 11:15
--- NOTE | 2018-03-17 11:33 | Occ Therapy Progress Note ---
Therapy Progress Note Pt on hold for therapies today JANNET COREY OT Mar 17, 2018 11:33
--- NOTE | 2018-03-17 11:47 | Anesthesia-Procedure Note ---
Procedures/Interventions Procedure Start/Stop/Diagnosis Date of Procedure: Mar 17, 2018 Start Time: 08:25 Referring Physician: Dana Preprocedural Diagnosis: difficult iv access Stop Time: 08:30 Central Line/IV Access IV : Location: Right Site: Hand IV Catheter Type: Peripheral IV IV Catheter Gauge: 24 KIEL WALL CRNA Mar 17, 2018 11:47
[2018-03-17] MEDS: CLOPIDOGREL 75 MG (PLAVIX) TABLET PO SCH (12:06)
--- NOTE | 2018-03-17 15:12 | ST Dysphagia Evaluation ---
Speech Evaluation-General Medical Diagnosis CVA Onset Date: Mar 08, 2018 Therapy Diagnosis Therapy Diagnosis: Dysphagia, Dysarthria and Aphasia Precautions Precautions: Aspiration Precautions/Isolations: Fall Prevention, Standard Precautions, Pressure Ulcer Referral Referring Physician: Dr. Willie Rosenthal Medical History Pertinent Medical History: DM, HTN Reviewed History: Yes Social History Home: Assisted Living Current Living Status: Alone Speech PLF/Current-Dysphagia Prior Level of Function Pt was independent with swallowing and speech/language. Subjective Pt was pleasant and cooperative. Cognitive Status Patient Orientation: Person, Non-Verbal/Aphasic, Eyes Open Oral Motor Skills Dentition: Natural Current Food Consistancy: Regular, Thin Liquids Ability to Follow Directions: Good Oral Expression Ability: Moderate Impairment Voice Voice Phonatory-Based Quality: Normal Voice Pitch: Normal Voice Loudness: Normal Face Facial Symmetry: Symmetrical Oral-Facial Assessment Oral-Facial Dentition: Normal Labial Seal Description: Normal Smile: Normal Puff Cheeks: Normal Lingual Protrusion: Normal Lingual ROM: Normal NT but appeared to be normal. NT NT NT NT Prod Throat Clearing Comments: NT Dysphagia Evaluation Consistencies Presented: Regular, Thin Liquid, [place] Thick Liquid Appeared WFL. Pharyngeal Phase: Reduced Laryngeal Elevation Funct. Velo/Pharyngeal Symptom: Cough After Swallow Cough immediate and delayed for all trials of thin liquids. None for nectar thick liquids. Dietary Recommendations: Regular Liquid Recommendations: [place] Consistancy Dysphagia Evaluation Summary Pt is dysphagic for thin liquids. Pt exhibited immediate coughs and delayed coughs for all trials of thin liquid. Did not observe for nectar thick consistencies. Barriers to Learning pt does exhibit receptive/expressive aphasia. Speech Short Term Goals Short Term Goals Short Term Goals 1. Pt will be instructed in swallow exercises focusing on the pharyngeal swallow and perform with min assist. 2. Vital Stim to be provided (if pt can tolerate) to improve pt's swallow through the use of e-stim. Time Frame-ST week Comprehension: 5 Expression: 3 Social Interaction: 7 Problem Solvin Memory: 4 Speech Auto Painter Helper Goals Auto Painter Helper Goals Pt will demonstrate ability to tolerate thin liquids with no s/s of aspiration. Comprehension: 6 Expression: 5 Social Interaction: 7 Problem Solvin Memory: 4 Speech-Plan Patient/Family Goals Patient/Family Goals: To talk better and be able to drink thin liquids. Treatment Plan Speech Therapy Treatment Plan: Continue Plan of Care The pt was placed in Speech Therapy on this date. Treatment Duration: Mar 24, 2018 Frequency: 5 times per week Estimated Hrs Per Day: 1 hour per day Rehab Potential: Good Barriers to Learning: Receptive and Expressive aphasia. Pt/Family Agrees to Plan: Yes Safety Risks/Education Teaching Recipient: Patient Teaching Methods: Discussion Response to Teaching: Verbalize Understanding Discharge Recommendations Assisted Living Time Speech Therapy Time In: 10:40 Speech Therapy Time Out: 11:20 Total Billed Time: 40 Billed Treatment Time 1 MARY Carmichael Mar 17, 2018 15:12
--- NOTE | 2018-03-17 16:19 | Consultation-Cardiology ---
HPI-Cardiology Cardiology Consultation: Date of Consultation 03/17/18 Time Seen by Provider: 10:10 Date of Admission Attending Physician Willie Rosenthal MD Admitting Physician Ba Cortez DO Consulting Physician PALOMO BOWER MD, MA, FACP, FACC, [facility], CCDS HPI: Chief Complaint: CVA Ms. Delarosa is a 77 year old female who resides at [facility]. She was admitted on 03-08 with CVA. She was transferred to [facility] on 03-11-18. She was able to carry out daily activities with assist only. This morning nursing found her to be disoriented. Her speech was garbled, more so than before. Nursing reports she became nauseated and hypotensive (114 systolic). They laid her down and her BP increased to 145 systolic. Stroke team was activated. She was not reporting any c/o CP, palpitations, dyspnea or syncope. She has been for CT of the head. She is currently sitting in a recliner at the bedside. She is able to move all extremities with equal reinsurance clerk and strength. Her speech is garbled. She is able to answer questions with a yes or no response. Review of Systems-Cardiology Review of Systems Constitutional: malaise, tiredness Eyes: No vision change Ears/Nose/Throat: No epistaxis Respiratory: As described under HPI Cardiovascular: As described under HPI Gastrointestinal: No nausea, No vomiting Genitourinary: No dysuria Musculoskeletal: no symptoms reported Skin: No rash Psychiatric/Neurological: other (difficulty with speech); No syncope TAJ-Godesn-Pevgwi Hx Patient Social History Alcohol Use: Denies Use Recreational Drug Use: No Smoking Status: Never a Smoker Recent Foreign Travel: No Recent Infectious Disease Expo: No Physical Abuse Screen: No Sexual Abuse: No Immunizations Up To Date Tetanus Booster (TDap): More than 5yrs Date of Pneumonia Vaccine: Aug 07, 2016 Date of Influenza Vaccine: Jun 09, 2016 Past Medical History PMH As described under Assessment. Family Medical History Family History: Myocardial infarction Allergies and Home Medications Allergies Coded Allergies: Penicillins (Unverified Allergy, Unknown, 12/21/06) codeine (Unverified Allergy, Unknown, 12/21/06) aspirin (Verified Adverse Reaction, Unknown, NAUSEA, 10/07/16) Home Medications C,E,Zinc,Copper 11/Mnayz5v/Lut 1 Each Capsule, 1 CAP PO DAILY, (Reported) D-Methorphan Hb/Prometh HCl 118 Ml Syrup, 2 TSP PO Q8H PRN for COUGH, (Reported) Fesoterodine Fumarate 4 Mg Tab.sr.24h, 4 MG PO DAILY, (Reported) Fish Oil/Dha/Epa 1 Each Capsule, 1,200 MG PO BID, (Reported) Furosemide 40 Mg Tablet, 40 MG PO DAILY, (Reported) Metformin HCl 500 Mg Tablet, 500 MG PO BID, (Reported) Omeprazole 40 Mg Capsule.dr, 40 MG PO DAILY, (Reported) Simvastatin 20 Mg Tablet, 20 MG PO HS, (Reported) Telmisartan 80 Mg Tablet, 80 MG PO DAILY, (Reported) Patient Home Medication List Home Medication List Reviewed: Yes Physical Exam-Cardiology Physical Exam Vital Signs/I&O 03/17/18 03/17/18 03/17/18 03/17/18 06:32 08:31 09:00 09:55 Temp 97.9 97.8 Pulse 62 67 65 Resp 17 20 B/P (MAP) 145/67 (93) 114/67 (83) Pulse Ox 97 98 O2 Delivery Room Air Room Air Room Air 03/17/18 03/17/18 12:30 13:00 Pulse 64 68 Resp 18 B/P (MAP) 156/69 (98) Pulse Ox 97 O2 Delivery Room Air 03/17/18 00:00 Intake Total 750 ml Output Total 1 ml Balance 749 ml Capillary Refill : Constitutional: well-developed, well-nourished HEENT: hearing is well preserved, oral hygience is good Neck: No carotid bruit; carotid pulses are 2 + bilaterally Respiratory: No accessory muscle use, No respiratory distress; lungs clear to auscultation Cardiovascular: regular rate-rhythm; No JVD; S1 and S2 Gastrointestinal: audible bowel sounds Rectal: deferred Extremities: no lower extremity edema bilateral Neurologic/Psychiatric: other (garbled speech, able to move all limbs equally) Skin: No rash, No ulcerations Data Review Labs Laboratory Tests 03/17/18 05:35: Glucometer 119H 03/17/18 07:49: Sodium Level 141, Potassium Level 4.7, Chloride Level 105, Carbon Dioxide Level 28, Anion Gap 8, Blood Urea Nitrogen 31H, Creatinine 1.32H, Estimat Glomerular Filtration Rate 39, BUN/Creatinine Ratio 23, Glucose Level 135H, Calcium Level 8.7, Total Bilirubin 1.1H, Aspartate Amino Transf (AST/SGOT) 17, Alanine Aminotransferase (ALT/SGPT) 10, Alkaline Phosphatase 64, Total Protein 5.6L, Albumin 2.8L 03/17/18 07:53: Glucometer 119H 03/17/18 09:05: White Blood Count 8.1, Red Blood Count 4.28L, Hemoglobin 12.9, Hematocrit 38, Mean Corpuscular Volume 89, Mean Corpuscular Hemoglobin 30, Mean Corpuscular Hemoglobin Concent 34, Red Cell Distribution Width 15.0H, Platelet Count 132, Mean Platelet Volume 10.6H, Neutrophils (%) (Auto) 70, Lymphocytes (%) (Auto) 15 , Monocytes (%) (Auto) 12, Eosinophils (%) (Auto) 2, Basophils (%) (Auto) 0, Neutrophils # (Auto) 5.7, Lymphocytes # (Auto) 1.2, Monocytes # (Auto) 1.0, Eosinophils # (Auto) 0.2, Basophils # (Auto) 0.0 03/17/18 15:46: Glucometer 149H Laboratory Tests 03/17/18 07:49 03/17/18 09:05 A/P-Cardiology Assessment/Admission Diagnosis Recent CVA with subsequent dysphasia, worse today. This is being managed by her pcp, Dr Cortez No angiographically significant coronary artery disease, normal global left ventricular systolic function with an ejection fraction of approximately 60 to 65%, elevated left ventricular end-diastolic pressure indicative of some degree of diastolic dysfunction of the left ventricle, and no significant mitral regurgitation per cardiac catheterization from 01/06/12. Maturity onset diabetes mellitus. Hypertension, currently controlled. Mild aortic valve sclerosis without significant aortic stenosis. Mild mitral and tricuspid regurgitation. LVEF 60% per echo of July 2013. Chronic bilateral leg swelling, likely related to venous insufficiency. Hyperlipidemia, chronically being treated with simvastatin and being managed by Dr. Cortez. Chronic mild anemia and mild thrombocytopenia being managed by Dr. Cortez. Chronic back pain and degenerative joint disease. Pulmonary artery systolic pressure is estimated to be approximately 40 mmHg per echocardiogram from 08/18/2013, which is unchanged from 2012. Elevated BMI of approx 45 Discussion and Recomendations * Continue Plavix * She has only nonspecific intolerance to aspirin. She, apparently, had stomach discomfort associated with a long time ago. She is willing to try it again. It appears reasonable to start 81 mg ECASA daily * Keep on tele. If PAF is demonstrated, then stop aspirin or Plavix, and start apixaban * Monitor labs * Repeat echo * Management of stroke is with Dr Cortez Clinical Quality Measures DVT/VTE Risk/Contraindication: Risk Factor Score Per Nursin RFS Level Per Nursing on Admit: 4+=Very High PALOMO BOWER MD FACP FAC CCDS Mar 17, 2018 16:19
[2018-03-17] MEDS: ATORVASTATIN 40 MG (LIPITOR) TABLET PO SCH (20:40)
[2018-03-17] MEDS: NS IV 1000 ML 1,000 ML IV SCH (22:49)
[2018-03-18 02:19] VITALS: BP 138/75
[2018-03-18] MEDS: NS IV 1000 ML 1,000 ML IV SCH ×2 (03:45→23:59)
[2018-03-18 05:18] VITALS: BP 161/73
[2018-03-18 05:40] LABS: BASOPHILS % (AUTO) 0 % (0-10); EOSINOPHILS # (AUTO) 0.3 10^3/uL (0.0-0.3); EOSINOPHILS % (AUTO) 5 % (0-10); HEMATOCRIT 34 % (35-52); LYMPHOCYTES # (AUTO) 1.6 X 10^3 (1.0-4.0); LYMPHOCYTES % (AUTO) 30 % (12-44); MEAN CORPUSCULAR HEMOGLOBIN 29 PG (25-34); MEAN CORPUSCULAR HGB CONC 32 G/DL (32-36); MEAN CORPUSCULAR VOLUME 91 FL (80-99); MEAN PLATELET VOLUME 10.8 FL (7.4-10.4); MONOCYTES # (AUTO) 0.5 X 10^3 (0.0-1.0); MONOCYTES % (AUTO) 9 % (0-12); NEUTROPHILS # (AUTO) 2.9 X 10^3 (1.8-7.8); NEUTROPHILS % (AUTO) 55 % (42-75); PLATELET COUNT 114 10^3/uL (130-400); RED BLOOD COUNT 3.75 10^6/uL (4.35-5.85); RED CELL DISTRIBUTION WIDTH 15.2 % (10.0-14.5); WHITE BLOOD COUNT 5.2 10^3/uL (4.3-11.0)
[2018-03-18] MEDS: PANTOPRAZOLE 40 MG (PROTONIX) TAB PO SCH (05:48)
[2018-03-18] MEDS: FAMOTIDINE 20 MG (PEPCID) TABLET PO SCH (05:48)
[2018-03-18 06:09] LABS: BASOPHILS % (MANUAL) 1 %; EOSINOPHILS % (MANUAL) 2 %; LYMPHOCYTES % (MANUAL) 26 %; MONOCYTES % (MANUAL) 4 %; NEUTROPHILS % (MANUAL) 67 %; POIKILOCYTOSIS SLIGHT; ROULEAUX SLIGHT; SPHEROCYTES SLIGHT
[2018-03-18 06:21] LABS: CREATININE SERUM 1.34 MG/DL (0.60-1.30)
[2018-03-18 06:22] LABS: ALBUMIN 2.8 GM/DL (3.2-4.5); BILIRUBIN,TOTAL 1.2 MG/DL (0.1-1.0); CALCIUM 8.3 MG/DL (8.5-10.1); TOTAL PROTEIN 5.4 GM/DL (6.4-8.2)
--- NOTE | 2018-03-18 08:15 | Progress Note (SOAP) ---
Subjective Time Seen by Provider: 08:15 Subjective/Events-last exam Patient feeling much better today. Patient talking better. Patient not hypotensive. Patient vomited and became dehydrated and hypotensive and showed signs of a stroke again. Patient this morning doing much better. Patient did eat and drink Objective Exam Vital Signs Date Time Temp Pulse Resp B/P (MAP) Pulse Ox O2 Delivery O2 Flow Rate FiO2 03/18/18 05:18 97.9 60 18 161/73 (102) 99 Room Air 03/18/18 02:19 97.5 68 16 138/75 (96) 97 Room Air 03/18/18 01:00 60 03/17/18 22:00 98.4 71 16 147/74 (98) 99 Room Air 03/17/18 21:00 Room Air 03/17/18 20:14 97.4 49 20 96/55 (69) 98 Room Air 03/17/18 19:00 70 03/17/18 18:00 97.3 68 20 87/56 (66) 98 Room Air 03/17/18 15:30 64 18 118/56 (76) 98 03/17/18 14:30 66 18 146/67 (93) 98 Room Air 03/17/18 13:00 68 03/17/18 12:30 64 18 156/69 (98) 97 Room Air 03/17/18 11:30 65 20 154/64 (94) 98 Room Air 03/17/18 10:30 66 20 152/68 (96) 98 Room Air 03/17/18 09:55 97.8 65 20 114/67 (83) 98 Room Air 03/17/18 09:45 75 20 154/64 (94) 98 Room Air 03/17/18 09:00 Room Air 03/17/18 08:45 65 20 171/71 (104) 98 Room Air 03/17/18 08:31 67 03/17/18 08:30 65 20 124/71 (88) 98 Room Air 03/17/18 08:15 64 20 130/72 (91) 98 Room Air I & O 03/18/18 07:00 Intake Total 2466 ml Output Total 400 ml Balance 2066 ml Capillary Refill : General Appearance: No Apparent Distress, WD/WN HEENT: Normal ENT Inspection Neck: Normal Inspection Respiratory: Lungs Clear, No Accessory Muscle Use, No Respiratory Distress Results Lab Laboratory Tests 03/17/18 09:05 03/18/18 05:20 Laboratory Tests 03/17/18 09:05: White Blood Count 8.1, Red Blood Count 4.28L, Hemoglobin 12.9, Hematocrit 38, Mean Corpuscular Volume 89, Mean Corpuscular Hemoglobin 30, Mean Corpuscular Hemoglobin Concent 34, Red Cell Distribution Width 15.0H, Platelet Count 132, Mean Platelet Volume 10.6H, Neutrophils (%) (Auto) 70, Lymphocytes (%) (Auto) 15 , Monocytes (%) (Auto) 12, Eosinophils (%) (Auto) 2, Basophils (%) (Auto) 0, Neutrophils # (Auto) 5.7, Lymphocytes # (Auto) 1.2, Monocytes # (Auto) 1.0, Eosinophils # (Auto) 0.2, Basophils # (Auto) 0.0 03/17/18 15:46: Glucometer 149H 03/18/18 05:06: Glucometer 93 03/18/18 05:20: White Blood Count 5.2, Red Blood Count 3.75L, Hemoglobin 11.0L, Hematocrit 34L, Mean Corpuscular Volume 91, Mean Corpuscular Hemoglobin 29, Mean Corpuscular Hemoglobin Concent 32, Red Cell Distribution Width 15.2H, Platelet Count 114L, Mean Platelet Volume 10.8H, Neutrophils (%) (Auto) 55, Lymphocytes (%) (Auto) 30 , Monocytes (%) (Auto) 9, Eosinophils (%) (Auto) 5, Basophils (%) (Auto) 0, Neutrophils # (Auto) 2.9, Lymphocytes # (Auto) 1.6, Monocytes # (Auto) 0.5, Eosinophils # (Auto) 0.3, Basophils # (Auto) 0.0, Neutrophils % (Manual) 67, Lymphocytes % (Manual) 26, Monocytes % (Manual) 4, Eosinophils % (Manual) 2, Basophils % (Manual) 1, Poikilocytosis SLIGHT, Spherocytes SLIGHT, Rouleau SLIGHT, Sodium Level 144, Potassium Level 4.0, Chloride Level 110H, Carbon Dioxide Level 26, Anion Gap 8, Blood Urea Nitrogen 36H, Creatinine 1.34H, Estimat Glomerular Filtration Rate 38, BUN/Creatinine Ratio 27, Glucose Level 104, Calcium Level 8.3L, Total Bilirubin 1.2H, Aspartate Amino Transf (AST/SGOT ) 17, Alanine Aminotransferase (ALT/SGPT) 11, Alkaline Phosphatase 64, Total Protein 5.4L, Albumin 2.8L Assessment/Plan Assessment/Plan Assess & Plan/Chief Complaint Sheet CVA history. Diabetes. Dysphagia. Dysarthria. Diabetes. Obesity. Hypertension. . 03/15/18. Acute CVA. Diabetes. Dysphagia better. Dysarthria better. Diabetes under good control. Obesity. HYPERTENSION. Patient feel she is improving. . 03/17/17. Patient having symptoms a stroke. Patient not talking well. Patient has renal insufficiency today. Patient vomited last night. Patient had abdominal pain last night. Patient able to move all extremities.. . 03/18/17. Patient doing much better today. Patient talking better. Patient's blood pressure better. Patient not vomiting. CVA. Dysarthria. Dysphagia. Diabetes. Hypertension history. Acute renal insufficiency monitoring Clinical Quality Measures DVT/VTE Risk/Contraindication: Risk Factor Score Per Nursin RFS Level Per Nursing on Admit: 4+=Very High ADEN LEE DO Mar 18, 2018 08:15
--- NOTE | 2018-03-18 08:32 | ST Cognitive Linguistic Eval ---
Speech Evaluation-General Medical Diagnosis CVA Onset Date: Mar 08, 2018 Therapy Diagnosis Therapy Diagnosis: Dysarthria, Aphasia Precautions Precautions: Aspiration Precautions/Isolations: Fall Prevention, Standard Precautions Referral Referring Physician: Dr. Willie Rosenthal Medical History Pertinent Medical History: DM, HTN Current History Pt experienced an "event" which left her speech slurred and she had difficulty with word finding. Reviewed History: Yes Social History Home: Assisted Living Current Living Status: Alone Speech PLF-Current Status Prior Level of Function The patient denied current challenges with her speech, language, or cognition. Upon admission, the patient displayed significant confusion, however, per patient, these deficits have cleared to her baseline status. Subjective Pt was pleasant and cooperative with the evaluation. Pain Numeric Pain Scale: 0-No Pain Language Eval: Auditory Comprehends Simple Yes/No Ques: Mild (Pt was 90% accurate for simple yes/no questions. ) Indent/Objects Multiple [place]: Functional Follows 1-Step Commands: Mild (Pt was 90% accurate for simple commands.) Follows Complex Directions: Moderate (Pt was 60% accurate for 2 step commands.) Follows General Conversations: Mild Language Eval: Verbal Language Completes Spontaneous Greeting: Functional Imitates Simple Words/Phrases: Moderate Word Finding: Moderate Requests Basic Needs: Moderate States Basic Personal Info: Moderate Expresses Complex Ideas: Moderate Pt's verbal expression contained difficulty with word finding, paraphasias and was moderately dysarthric. Language Evaluation: Reading Reading comprehension was not addressed at this time. Objective Cognitive Domain Cognition was not addressed as her speech and language was the priority for this evaluation. Objective Formal/Standardized Tests Informal testing and clinical observation were used for this assessment. Results Moderate dysarthria with mild receptive aphasia and moderate expressive aphasia. Oral Motor/Speech Production see results Impression Moderate dysarthria with mild receptive aphasia and moderate expressive aphasia. Communication/Social Cognition Comprehension: 5 Expression: 3 Social Interaction: 7 Problem Solvin Memory: 4 Speech Patient Assess Expression of Ideas/Wants: Expression (4) Understanding Verbal Content: Usually Understands (3) Brief Interview-Mental Status: Yes Repetition of Three Words: Three (3) Temporal Orientation: Year: No answer (0) Temporal Orientation: Month: No answer (0) Temporal Orientation: Day: Incorrect or No Answer(0) Recall : Wear to say "Sock": No, could not recall (0) Recall : Color: No, could not recall (0) Recall : Bed: No, could not recall (0) Speech Short Term Goals Short Term Goals Short Term Goals 1. Pt will be instructed in swallow exercises focusing on the pharyngeal swallow and perform with min assist. 2. Vital Stim to be provided (if pt can tolerate) to improve pt's swallow through the use of e-stim. Speech/language Pt will complete various verbal expression activities with min assist. Pt will complete OMEs independently. Time Frame-ST week Comprehension: 5 Expression: 3 Social Interaction: 7 Problem Solvin Memory: 4 Speech Property Clerk Goals Property Clerk Goals Pt will demonstrate ability to tolerate thin liquids with no s/s of aspiration. Speech/language: Pt will be independent with communication. Time Frame: 1 week Comprehension: 6 Expression: 5 Social Interaction: 7 Problem Solvin Memory: 4 Speech-Plan Patient/Family Goals Patient/Family Goals: to return to her residence. Treatment Plan Speech Therapy Treatment Plan: Continue Plan of Care Continue skilled speech tx for swallowing and cognition. Treatment Duration: Mar 24, 2018 Frequency: 5 times per week Estimated Hrs Per Day: 1 hour per day Rehab Potential: Good Pt/Family Agrees to Plan: Yes Safety Risks/Education Teaching Recipient: Patient Teaching Methods: Demonstration, Discussion Response to Teaching: Verbalize Understanding Discharge Recommendations Assisted Living Time Speech Therapy Time In: 09:00 Speech Therapy Time Out: 10:00 Total Billed Time: 60 Billed Treatment Time 1 MARY Dior Mar 18, 2018 08:32
--- NOTE | 2018-03-18 08:36 | PM & R (SOAP) Progress Note ---
Subjective This was a face to face visit with the patient. Date Seen by Provider: Mar 18, 2018 Time Seen by Provider: 07:35 Subjective/Events-last exam Patient was seen in her room this AM Doing much better with rehydration Speech appears to be back to normal and Patient alert and sitting in chair.Patinst symptoms may have been due to Hypotension due to dehydration as a result of N/V with resulting decreased Blood flow to the brain.Will see how she does with therapies today,Case discussed with DR cortez. Objective Physician Exam Last Set of Vital Signs Vital Signs Date Time Temp Pulse Resp B/P (MAP) Pulse Ox O2 Delivery O2 Flow Rate FiO2 03/18/18 07:00 61 03/18/18 05:18 97.9 18 161/73 (102) 99 Room Air Capillary Refill : I&O Intake and Output 03/18/18 00:00 Intake Total 1790 ml Output Total 100 ml Balance 1690 ml Intake Oral 290 ml IV Total 1500 ml Output Urine Total 100 ml # Voids 2 # Urine Diapers 1 # Bowel Movements 1 General: Alert, Oriented X3, Cooperative, No Acute Distress HEENT: Atraumatic, PERRLA, EOMI, Mucous Memb Moist/[place] Neck: Supple, No JVD Lungs: Clear to Auscultation Heart: Regular Rate Abdomen: Normal Bowel Sounds, Soft, No Tenderness, Other Extremities: Other Neuro: Other Results Lab Data Laboratory Tests 03/15/18 12:18: Sodium Level 139, Potassium Level 5.0, Chloride Level 104, Carbon Dioxide Level 24, Anion Gap 11, Blood Urea Nitrogen 21H, Creatinine 0.81, Estimat Glomerular Filtration Rate > 60, BUN/Creatinine Ratio 26, Glucose Level 187H, Calcium Level 9.1 03/15/18 16:16: Glucometer 164H 03/16/18 04:15: Glucometer 105 03/16/18 15:55: Glucometer 133H 03/17/18 05:35: Glucometer 119H 03/17/18 07:49: Sodium Level 141, Potassium Level 4.7, Chloride Level 105, Carbon Dioxide Level 28, Anion Gap 8, Blood Urea Nitrogen 31H, Creatinine 1.32H, Estimat Glomerular Filtration Rate 39, BUN/Creatinine Ratio 23, Glucose Level 135H, Calcium Level 8.7, Total Bilirubin 1.1H, Aspartate Amino Transf (AST/SGOT) 17, Alanine Aminotransferase (ALT/SGPT) 10, Alkaline Phosphatase 64, Total Protein 5.6L, Albumin 2.8L 03/17/18 07:53: Glucometer 119H 03/17/18 09:05: White Blood Count 8.1, Red Blood Count 4.28L, Hemoglobin 12.9, Hematocrit 38, Mean Corpuscular Volume 89, Mean Corpuscular Hemoglobin 30, Mean Corpuscular Hemoglobin Concent 34, Red Cell Distribution Width 15.0H, Platelet Count 132, Mean Platelet Volume 10.6H, Neutrophils (%) (Auto) 70, Lymphocytes (%) (Auto) 15 , Monocytes (%) (Auto) 12, Eosinophils (%) (Auto) 2, Basophils (%) (Auto) 0, Neutrophils # (Auto) 5.7, Lymphocytes # (Auto) 1.2, Monocytes # (Auto) 1.0, Eosinophils # (Auto) 0.2, Basophils # (Auto) 0.0 03/17/18 15:46: Glucometer 149H 03/18/18 05:06: Glucometer 93 03/18/18 05:20: White Blood Count 5.2, Red Blood Count 3.75L, Hemoglobin 11.0L, Hematocrit 34L, Mean Corpuscular Volume 91, Mean Corpuscular Hemoglobin 29, Mean Corpuscular Hemoglobin Concent 32, Red Cell Distribution Width 15.2H, Platelet Count 114L, Mean Platelet Volume 10.8H, Neutrophils (%) (Auto) 55, Lymphocytes (%) (Auto) 30 , Monocytes (%) (Auto) 9, Eosinophils (%) (Auto) 5, Basophils (%) (Auto) 0, Neutrophils # (Auto) 2.9, Lymphocytes # (Auto) 1.6, Monocytes # (Auto) 0.5, Eosinophils # (Auto) 0.3, Basophils # (Auto) 0.0, Neutrophils % (Manual) 67, Lymphocytes % (Manual) 26, Monocytes % (Manual) 4, Eosinophils % (Manual) 2, Basophils % (Manual) 1, Poikilocytosis SLIGHT, Spherocytes SLIGHT, Rouleau SLIGHT, Sodium Level 144, Potassium Level 4.0, Chloride Level 110H, Carbon Dioxide Level 26, Anion Gap 8, Blood Urea Nitrogen 36H, Creatinine 1.34H, Estimat Glomerular Filtration Rate 38, BUN/Creatinine Ratio 27, Glucose Level 104, Calcium Level 8.3L, Total Bilirubin 1.2H, Aspartate Amino Transf (AST/SGOT ) 17, Alanine Aminotransferase (ALT/SGPT) 11, Alkaline Phosphatase 64, Total Protein 5.4L, Albumin 2.8L Assessment/Plan Assessment and Plan 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 Change in Neuro status yesterday probably due to above causology CT negative and patient unable to fit into MRI machine here.-now normotensive and appears to be back at baseline TIA on Plavix Thrombocytopenia Anemia HTN better controlled DM2 controlled Cholelithiasis asymptomatic at this point Hx of DVT s/p Nava filter S/P left shoulder surgery Plan Resume PT/OT/ST Team Conference held yesterday-see report for full functional update and POC and ELOs Discharge reset for next week back to [facility] hopefully at PLOF or better F/U with PCP DR Cortez (1) CVA (cerebral vascular accident) Qualifiers: Qualified Codes: I63.9 - Cerebral infarction, unspecified Status: Acute Co-Morbidities that are continuing to impact the rehab process: (include details ) HECTOR BRITT MD Mar 18, 2018 08:36
[2018-03-18] MEDS: CLOPIDOGREL 75 MG (PLAVIX) TABLET PO SCH (08:57)
[2018-03-18] MEDS: ASPIRIN E.C. 81 MG (ECOTRIN) TAB PO SCH (08:57)
--- NOTE | 2018-03-18 10:44 | Physical Therapy Daily Note ---
PT Daily Note-Current Subjective Pt sitting in recliner upon arrival. Pt agrees to PT. Pt & Dr Stark report pt is better. Pt got dehydrated yesterday which affect BP. Pain Location: No Pain Reported Mental Status Patient Orientation: Person, Place, Time, Situation Transfers Functional [place] Measure 0=Not Assessed/NA 4=Minimal Assistance 1=Total Assistance 5=Supervision or Setup 2=Maximal Assistance 6=Modified [place] 3=Moderate Assistance 7=Complete IndependenceIRFPAI Quality Coding Scale 6 Independent with activity with or without an assistive device 5 Patient requires set up or clean up by helper. Patient completes activity by themselves 4 Supervision or touching assist (CGA). [place] provide cues , steadying assist 3 The helper provides less than half the effort to complete the activity 2 The helper provides more than half the effort to complete the activity 1 Dependent. The helper does all the effort to complete an activity 7 Patient refused to complete or attempt activity 9 The patient did not perform the activity before the current illness or injury 88 Not attempted due to Medical conditions or safety concerns Scootin Rollin Roll Left to Right (QC): 4 Supine to/from Sit: 4 Sit to/from Stand: 5 Sit to Lying (QC): 4 Sit to Stand (QC): 5 Weight Bearing Right Lower Extremity: Right Full Weight Bearing Left Lower Extremity: Left Full Weight Bearing Gait Training Does the Patient Walk?: Yes Distance (FIM): 1=up to 49 ft Distance: 20' Walk 10 feet (QC): 5 Gait Assistive Device: FWW Pt walks with slow ricky but otherwise normalized gait pattern. Exercises Supine Ex: Ankle pumps, Quad Set, Rolling Supine Reps: 15 Treatments ALMOND ROASTER assits pt with [facility] gown in recliner for tx. Pt transfers from recliner to standing using FWW at [facility]. Pt uses restroom before Xray/Imaging arrives for Ultrasound of pt's heart. ALMOND ROASTER assists pt with transferring from EOB to Supine then rolling to L sidelying. After Imaging, pt completes Supine Ex in bed. Pt then transfers from bed to sitting in recliner at end of tx. Pt has all needs met, including call light next to pt. Assessment Current Status: Good Progress Pt shows no affects from yesterday's dehydration. Pt demonstrates back to normal tx with PT. PT Short Term Goals Short Term Goals Time Frame: Mar 18, 2018 Transfers (B,C,W/C) (FIM): 5 Gait (FIM): 5 Distance (FIM): 3=150 ft Gait Assistive Device: FWW PT Intermediate Goals Academic Adviser Goals PT Intermediate Goals Time Frame: Mar 26, 2018 Transfers (B,C,W/C) (FIM): 6 Sit to Lying (QC): 6 Lying-Sitting on Side/Bed(QC): 6 Sit to Stand (QC): 6 Rollin Roll Left to Right (QC): 6 Chair/[id number]-Jfbvm Xfer(QC): 6 Car Transfer (QC): 5 Does the Patient Walk: Yes Gait (FIM): 6 Gait distance (FIM): 3=150 ft Walk 10 feet (QC): 6 Walk 10ft-Uneven Surface(QC): 6 Walk 50ft with 2 Turns (QC): 6 Walk 150 ft (QC): 6 Gait Level of Assist: 6 Gait Assistive Device: FWW Stairs (FIM): 2 # of Steps: 4 1 Step (curb) (QC): 5 4 Steps (QC): 4 12 Steps (QC): 88 Picking up an Object (QC): 88 PT Plan Problem List Problem List: Activity Tolerance, Functional Strength Treatment/Plan Treatment Plan: Continue Plan of Care Treatment Plan: Bed Mobility, Education, Functional Activity Mary Ann, Functional Strength, Group Therapy, Gait, Safety, Therapeutic Exercise, Transfers Treatment Duration: Mar 25, 2018 Frequency: At least 5 of 7 days/Wk (IRF) Estimated Hrs Per Day: 1.5 hours per day Patient and/or Family Agrees t: Yes Safety Risks/Education Patient Education: Gait Training, Transfer Techniques, Correct Positioning, Safety Issues Teaching Recipient: Patient Teaching Methods: Discussion Response to Teaching: Verbalize Understanding Time/GCodes Time In: 800 Time Out: 900 Total Billed Treatment Time: 60 Total Billed Treatment 1, FA x3 (40m) & EX (20m) G Codes Necessary: RONIT You PTA Mar 18, 2018 10:44
--- NOTE | 2018-03-18 11:03 | Progress Note-Cardiology ---
Cardiology SOAP Progress Note Subjective: Sitting up after her shower. Conversation and speech appropriate. States she feels better today. No c/o CP, palpitations or dyspnea Objective: I&O/Vital Signs 03/18/18 03/18/18 03/18/18 07:00 09:00 13:00 Pulse 61 68 O2 Delivery Room Air 03/18/18 00:00 Intake Total 1740 ml Output Total 100 ml Balance 1640 ml Weight (Pounds): 270 Weight (Ounces): 0.7 Weight (Calculated Kilograms): [phone] Constitutional: well-developed, well-nourished Respiratory: No accessory muscle use, No respiratory distress; lungs clear to auscultation Cardiovascular: regular rate-rhythm; No JVD; S1 and S2 Gastrointestional: audible bowel sounds Extremities: no lower extremity edema bilateral Neurologic/Psychiatric: grossly intact (speech appropriate today) Skin: No rash, No ulcerations Results/Procedures: Labs Laboratory Tests 03/18/18 05:06: Glucometer 93 03/18/18 05:20: White Blood Count 5.2, Red Blood Count 3.75L, Hemoglobin 11.0L, Hematocrit 34L, Mean Corpuscular Volume 91, Mean Corpuscular Hemoglobin 29, Mean Corpuscular Hemoglobin Concent 32, Red Cell Distribution Width 15.2H, Platelet Count 114L, Mean Platelet Volume 10.8H, Neutrophils (%) (Auto) 55, Lymphocytes (%) (Auto) 30 , Monocytes (%) (Auto) 9, Eosinophils (%) (Auto) 5, Basophils (%) (Auto) 0, Neutrophils # (Auto) 2.9, Lymphocytes # (Auto) 1.6, Monocytes # (Auto) 0.5, Eosinophils # (Auto) 0.3, Basophils # (Auto) 0.0, Neutrophils % (Manual) 67, Lymphocytes % (Manual) 26, Monocytes % (Manual) 4, Eosinophils % (Manual) 2, Basophils % (Manual) 1, Poikilocytosis SLIGHT, Spherocytes SLIGHT, Rouleau SLIGHT, Sodium Level 144, Potassium Level 4.0, Chloride Level 110H, Carbon Dioxide Level 26, Anion Gap 8, Blood Urea Nitrogen 36H, Creatinine 1.34H, Estimat Glomerular Filtration Rate 38, BUN/Creatinine Ratio 27, Glucose Level 104, Calcium Level 8.3L, Total Bilirubin 1.2H, Aspartate Amino Transf (AST/SGOT ) 17, Alanine Aminotransferase (ALT/SGPT) 11, Alkaline Phosphatase 64, Total Protein 5.4L, Albumin 2.8L 03/18/18 15:51: Glucometer 205H A/P: Assessment: Recent CVA with subsequent dysphasia, worse on 03-17-18, but has improved. This is being managed by her pcp, Dr Cortez Echo of 03/18/18: LVEF 55-60%, AoV sclerosis w/o stenosis, PASP 30 mmHg No angiographically significant coronary artery disease, normal global left ventricular systolic function with an ejection fraction of approximately 60 to 65%, elevated left ventricular end-diastolic pressure indicative of some degree of diastolic dysfunction of the left ventricle, and no significant mitral regurgitation per cardiac catheterization from 01/06/12 Maturity onset diabetes mellitus. Hypertension, currently controlled. Acute renal insufficiency - management per medical services Chronic bilateral leg swelling, likely related to venous insufficiency. Hyperlipidemia, chronically being treated with simvastatin and being managed by Dr. Cortez. Chronic mild anemia and mild thrombocytopenia being managed by Dr. Cortez. Chronic back pain and degenerative joint disease. Pulmonary artery systolic pressure is estimated to be approximately 40 mmHg per echocardiogram from 08/18/2013, which is unchanged from 2012. Elevated BMI of approx 45 Plan: * Continue Plavix * She has only nonspecific intolerance to aspirin. She, apparently, had stomach discomfort associated with a long time ago. She is willing to try it again. It appears reasonable to start 81 mg ECASA daily * Keep on tele. If PAF is demonstrated, then stop aspirin or Plavix, and start apixaban * No a-fib/flutter documented thus far * Monitor labs * Repeat echo - pending * Acute on chronic renal insufficiency (worsening GFR) - management per medical services - advise nephrology consult as out pt * Management of stroke is with Dr Cortez Physician Assessment Physician Assessment Does not report cp or palp or syncope or shortness of breath Lungs: good bilat air entry Cor: reg Ext: no c/c/e Neuro: speech improved compared to 03/17/18; seems to be able to move all limbs A&R * As documented in our note above that I updated in italics and as noted below * Continue Plavix and low dose ASA * If tele shows PAF, please replace Plavix with Eliquis * Dr Pozo covering the cardiology service beginning today. Please call as needed REBEL IVY MOBILE APPLICATION ENGINEER Mar 18, 2018 11:03 PALOMO BOWER MD FACP FAC CCDS Mar 18, 2018 17:27
--- NOTE | 2018-03-18 11:23 | Occupational Ther Daily Note ---
OT Current Status-Daily Note Subjective Pt seen in room, up in recliner, no pain mentioned. Appearance Alert, cooperative Mental Status/Objective Patient Orientation: Person, Place, Time, Situation Functional [place] Measure 0=Not Assessed/NA 4=Minimal Assistance 1=Total Assistance 5=Supervision or Setup 2=Maximal Assistance 6=Modified [place] 3=Moderate Assistance 7=Complete [place] Attachments: Saline Lock ADL-Treatment Pt was not seen yesterday due to medical status and was reassessed by OT. No change in tx plan but did provide more supervision today while assessing her. IV sites covered with plastic prior to shower. Pt agreeable to ADLs. Got up from recliner with CGA and walked to bathroom SBA, FWW. Toilet transfer and toileting SBA, with FWW over toilet. Pt walked to shower SBA, FWW and got in/ out of shower SBA. Pt washed and dried all parts except back with setup/ supervision. Returned to [facility] to dress and was able to don all clothing with SBA/ setup. Walked to sink to groom SBA, FWW and returned to recliner. Pt left up in recliner, all needs met. Functional [place] Measure 0=Not Assessed/NA 4=Minimal Assistance 1=Total Assistance 5=Supervision or Setup 2=Maximal Assistance 6=Modified [place] 3=Moderate Assistance 7=Complete IndependenceIRFPAI Quality Coding Scale 6 Independent with activity with or without an assistive device 5 Patient requires set up or clean up by helper. Patient completes activity by themselves 4 Supervision or touching assist (CGA). [place] provide cues , steadying assist 3 The helper provides less than half the effort to complete the activity 2 The helper provides more than half the effort to complete the activity 1 Dependent. The helper does all the effort to complete an activity 7 Patient refused to complete or attempt activity 9 The patient did not perform the activity before the current illness or injury 88 Not attempted due to Medical conditions or safety concerns Grooming (FIM): 5 (SBA at sink, FWW off to the side, to brush teeth and hair. Washed and dried hands and face in shower) Bathing (FIM): 5 (Washed and dried all parts except back, using shower bench, grab bars, hand held shower, long handled sponge. Supervision/SBA) Upper Body (FIM): 5 (Pt dressed upper body with setup) Lower Body Dressing (FIM): 5 (Dressed lower body, including shoes, with setup and SBA.) Toileting (FIM): 5 (Managed clothing and hygiene with SBA, BSC over toilet) Toilet/Commode Transfer (FIM): 5 (SBA to get on/off BSC over toilet, grab bar, FWW) Education OT Patient Education: Progress toward Goal/Update tx plan, Purpose of tx/ functional activities Teaching Recipient: Patient Teaching Methods: Discussion Response to Teaching: Verbalize Understanding OT Short Term Goals Short Term Goals Time Frame: Mar 18, 2018 Eating(FIM): 5 Grooming(FIM): 5 Bathing(FIM): 5 Upper Body Dressing(FIM): 5 Lower Body Dressing(FIM): 5 Toileting(FIM): 5 Transfers (B,C,W/C) (FIM): 5 Toilet/Commode Transfer(FIM): 5 Shower Transfer(FIM): 5 Comprehension(FIM): 5 Expression(FIM): 3 Social Interaction(FIM): 7 Problem Solving(FIM): 4 Memory(FIM): 4 Additional Short Term Goals: 1-Demonstrate ADL Tasks, 2-Verbalize Understanding , 3-ImproveStrength/Mary Ann 1=Demonstrate adherence to instructed precautions during ADL tasks. 2=Patient will verbalize/demonstrate understanding of assistive devices/ modifications for ADL. 3=Patient will improve strength/tolerance for activity to enable patient to perform ADL's. OT Alf Goals Alf Goals Time Frame: Mar 25, 2018 Eating (FIM): 6 Eating (QC): 6 Groomin Oral Hygiene (QC): 6 Bathing(FIM): 5 Shower/Bathe Self (QC): 5 Upper Body Dressing(FIM): 6 Upper Body Dressing (QC): 6 Lower Body Dressing(FIM): 6 Lower Body Dressing (QC): 6 On/Off Footwear (QC): 6 Toileting(FIM): 6 Toileting Hygiene (QC): 6 Transfers (B,C,W/C) (FIM): 6 Toilet/Commode Transfer(FIM): 6 Toilet/Commode Transfer (QC): 6 Shower Transfer(FIM): 5 Comprehension(FIM): 6 Expression (FIM): 5 Social Interaction(FIM): 7 Problem Solving(FIM): 4 Memory(FIM): 4 Additional Goals: 1-Demonstrate ADL Tasks, 2-Verbalize Understanding, 3- ImproveStrength/Mary Ann 1=Demonstrate adherence to instructed precautions during ADL tasks. 2=Patient will verbalize/demonstrate understanding of assistive devices/ modifications for ADL. 3=Patient will improve strength/tolerance for activity to enable patient to perform ADL's. OT Education/Plan Discharge Recommendations Plan/Recommendations: Continue POC Treatment Plan/Plan of Care Patient would benefit from OT for education, treatment and training to promote independence in ADL's, mobility, safety and/or upper extremity function for ADL' s. Plan of Care: ADL Retraining, Functional Mobility, UE Funct Exercise/Act Treatment Duration: Mar 25, 2018 Frequency: At least 5 of 7 days/Wk (IRF) Estimated Hrs Per Day: 1.5 hours per day Rehab Potential: Good Time/GCodes Start Time: 10:15 Stop Time: 11:15 Total Time Billed (hr/min): 60 Billed Treatment Time visit, 60 minutes ADL JANNET COREY OT Mar 18, 2018 11:23
--- NOTE | 2018-03-18 15:52 | Therapy Team Discharge Summary ---
Therapy Discharge Summary Discharge Recommendations Date of Discharge Therapy D/C Recommendations: Assisted Living Occupational Therapy Decreased Activ Tolerance, Impaired I ADL's, Impaired Self-Care Skills, Restricted Funct UE ROM Speech-Language Pathology Pt was evaluated on 03/18/2018 due to change in her functioning status. Pt was found to have dysarthria and aphasia. Pt was seen for skilled speech therapy the next day and it appeared pt's functioning status was back at baseline. It was reported that the pt was dehydrated due to vomiting. Her slurred speech was gone and she had do difficulty communicating with WEAVE DEFECT CHARTING CLERK on a high level of conversation. Also, pt was given thin liquid and no s/s of aspiration was observed except for "chugging" the water. Pt was switched back to thin liquids. Pt does not require skilled speech therapy and is discharged from this service. PT Refrigerating Oiler Goals Refrigerating Oiler Goals PT Refrigerating Oiler Goals Time Frame: Mar 26, 2018 Transfers (B,C,W/C) (FIM): 6 Roll Left to Right (QC): 6 Sit to Lying (QC): 6 Lying-Sitting on Side/Bed(QC): 6 Sit to Stand (QC): 6 Chair/Dgx-by-Aubcm Xfer(QC): 6 Car Transfer (QC): 5 Does the Patient Walk: Yes Gait (FIM): 6 Gait distance (FIM): 3=150 ft Walk 10 feet (QC): 6 Walk 10ft-Uneven Surface(QC): 6 Walk 50ft with 2 Turns (QC): 6 Walk 150 ft (QC): 6 Gait Level of Assist: 6 Gait Assistive Device: FWW Stairs (FIM): 2 # of Steps: 4 1 Step (curb) (QC): 5 4 Steps (QC): 4 12 Steps (QC): 88 Picking up an Object (QC): 88 OT Shelter Goals Refrigerating Oiler Goals Time Frame: Mar 25, 2018 Eating (FIM): 6 Eating (QC): 6 Oral Hygiene (QC): 6 Grooming(FIM): 6 Bathing(FIM): 5 Shower/Bathe Self (QC): 5 Upper Body Dressing(FIM): 6 Upper Body Dressing (QC): 6 Lower Body Dressing(FIM): 6 Lower Body Dressing (QC): 6 On/Off Footwear (QC): 6 Toileting(FIM): 6 Toileting Hygiene (QC): 6 Transfers (B,C,W/C) (FIM): 6 Toilet/Commode Transfer(FIM): 6 Toilet/Commode Transfer (QC): 6 Shower Transfer(FIM): 5 Comprehension(FIM): 6 Expression (FIM): 5 Social Interaction(FIM): 7 Problem Solving(FIM): 4 Memory(FIM): 4 Additional Goals: 1-Demonstrate ADL Tasks, 2-Verbalize Understanding, 3- ImproveStrength/Mary Ann 1=Demonstrate adherence to instructed precautions during ADL tasks. 2=Patient will verbalize/demonstrate understanding of assistive devices/ modifications for ADL. 3=Patient will improve strength/tolerance for activity to enable patient to perform ADL's. Speech Shelter Goals Refrigerating Oiler Goals Pt will demonstrate ability to tolerate thin liquids with no s/s of aspiration. Speech/language: Pt will be independent with communication. Time Frame: 1 week Comprehension: 6 (MET) Expression: 5 (MET) Social Interaction: 7 (MET) Problem Solvin (MET) Memory: 4 (MET) MARY JONES Mar 18, 2018 15:52
--- NOTE | 2018-03-18 15:52 | Speech Therapy Daily Note ---
Speech Daily Progress Note Subjective Date Seen by Provider: Mar 18, 2018 Time Seen by Provider: 09:00 Pt's status has improved greatly. She did not exhibit dysarthria and word finding difficulty anymore. Pain Numeric Pain Scale: 6 Location Body Site: Knee Pain Description: Ache Assessment Assessment Current Status: Excellent Progress Treatment Plan Discontinue ST, Goals Met Communication Comprehension: 5 (7) Expression: 3 (7) Social Cognition Social Interaction: 7 (7) Problem Solvin (6) Memory: 4 (5) Speech Short Term Goals Short Term Goals Short Term Goals 1. Pt will be instructed in swallow exercises focusing on the pharyngeal swallow and perform with min assist. MET 2. Vital Stim to be provided (if pt can tolerate) to improve pt's swallow through the use of e-stim. MET Speech/language Pt will complete various verbal expression activities with min assist. MET Pt will complete OMEs independently. MET Time Frame-ST week Comprehension: 5 Expression: 3 Social Interaction: 7 Problem Solvin Memory: 4 Speech Multi Punch Operator Goals Group Home Goals Pt will demonstrate ability to tolerate thin liquids with no s/s of aspiration. MET Speech/language: Pt will be independent with communication. MET Time Frame: 1 week Comprehension: 6 Expression: 5 Social Interaction: 7 Problem Solvin Memory: 4 Speech-Plan Patient/Family Goals Patient/Family Goals: to return to her home Treatment Plan Speech Therapy Treatment Plan: Discontinue ST, Goals Met Pt has met goals and is dc'd from skilled speech therapy services. Treatment Duration: Mar 24, 2018 Frequency: Modified Program (IRF) Estimated Hrs Per Day: Other Rehab Potential: Good Pt/Family Agrees to Plan: Yes Safety Risks/Education Teaching Recipient: Patient Teaching Methods: Discussion Response to Teaching: Verbalize Understanding Discharge Recommendations Home Independently Time Speech Therapy Time In: 09:00 Speech Therapy Time Out: 10:00 Total Billed Time: 60 Billed Treatment Time 1, SLTS No MARY JONES Mar 18, 2018 15:52
[2018-03-18 18:30] VITALS: BP 132/89
[2018-03-18] MEDS: ATORVASTATIN 40 MG (LIPITOR) TABLET PO SCH (21:51)
[2018-03-19 05:50] VITALS: BP 153/61
[2018-03-19] MEDS: FAMOTIDINE 20 MG (PEPCID) TABLET PO SCH (06:23)
[2018-03-19] MEDS: PANTOPRAZOLE 40 MG (PROTONIX) TAB PO SCH (06:23)
[2018-03-19 06:57] LABS: BASOPHILS % (AUTO) 1 % (0-10); EOSINOPHILS # (AUTO) 0.3 10^3/uL (0.0-0.3); EOSINOPHILS % (AUTO) 8 % (0-10); HEMATOCRIT 33 % (35-52); HEMOGLOBIN 11.1 G/DL (11.5-16.0); LYMPHOCYTES # (AUTO) 1.1 X 10^3 (1.0-4.0); LYMPHOCYTES % (AUTO) 27 % (12-44); MEAN CORPUSCULAR HEMOGLOBIN 30 PG (25-34); MEAN CORPUSCULAR HGB CONC 33 G/DL (32-36); MEAN CORPUSCULAR VOLUME 90 FL (80-99); MEAN PLATELET VOLUME 10.8 FL (7.4-10.4); MONOCYTES # (AUTO) 0.4 X 10^3 (0.0-1.0); MONOCYTES % (AUTO) 10 % (0-12); NEUTROPHILS # (AUTO) 2.3 X 10^3 (1.8-7.8); NEUTROPHILS % (AUTO) 55 % (42-75); PLATELET COUNT 109 10^3/uL (130-400); RED BLOOD COUNT 3.71 10^6/uL (4.35-5.85); RED CELL DISTRIBUTION WIDTH 14.7 % (10.0-14.5); WHITE BLOOD COUNT 4.1 10^3/uL (4.3-11.0)
[2018-03-19 07:16] LABS: BUN/CREATININE RATIO 29; CALCIUM 8.3 MG/DL (8.5-10.1); CARBON DIOXIDE 27 MMOL/L (21-32); CHLORIDE 110 MMOL/L (98-107); CREATININE SERUM 0.87 MG/DL (0.60-1.30); GFR ESTIMATED > 60; GLUCOSE 117 MG/DL (70-105); SODIUM 143 MMOL/L (135-145)
--- NOTE | 2018-03-19 08:07 | Progress Note (SOAP) ---
Subjective Time Seen by Provider: 08:03 Subjective/Events-last exam Patient feeling much better today. Patient speaking good. Patient moving all extremities. Patient's kidney function came back to normal. Patient doing well . Objective Exam Vital Signs Date Time Temp Pulse Resp B/P (MAP) Pulse Ox O2 Delivery O2 Flow Rate FiO2 03/19/18 05:50 96.8 64 18 153/61 (91) 97 Room Air 03/19/18 01:00 59 03/18/18 20:20 Room Air 03/18/18 19:00 56 03/18/18 18:30 97.8 60 18 132/89 (103) 96 Room Air 03/18/18 13:00 68 03/18/18 09:00 Room Air I & O 03/19/18 07:00 Intake Total 1900 ml Output Total 300 ml Balance 1600 ml Capillary Refill : Less Than 3 Seconds General Appearance: No Apparent Distress, WD/WN, Obese HEENT: Normal ENT Inspection Neck: Normal Inspection Respiratory: Lungs Clear, No Accessory Muscle Use, No Respiratory Distress Cardiovascular: No Murmur Gastrointestinal: non tender, soft Results Lab Laboratory Tests 03/19/18 06:38 Laboratory Tests 03/18/18 15:51: Glucometer 205H 03/19/18 06:06: Glucometer 108 03/19/18 06:38: White Blood Count 4.1L, Red Blood Count 3.71L, Hemoglobin 11.1L, Hematocrit 33L , Mean Corpuscular Volume 90, Mean Corpuscular Hemoglobin 30, Mean Corpuscular Hemoglobin Concent 33, Red Cell Distribution Width 14.7H, Platelet Count 109L, Mean Platelet Volume 10.8H, Neutrophils (%) (Auto) 55, Lymphocytes (%) (Auto) 27 , Monocytes (%) (Auto) 10, Eosinophils (%) (Auto) 8, Basophils (%) (Auto) 1, Neutrophils # (Auto) 2.3, Lymphocytes # (Auto) 1.1, Monocytes # (Auto) 0.4, Eosinophils # (Auto) 0.3, Basophils # (Auto) 0.0, Sodium Level 143, Potassium Level 4.0, Chloride Level 110H, Carbon Dioxide Level 27, Anion Gap 6, Blood Urea Nitrogen 25H, Creatinine 0.87, Estimat Glomerular Filtration Rate > 60, BUN /Creatinine Ratio 29, Glucose Level 117H, Calcium Level 8.3L Assessment/Plan Assessment/Plan Assess & Plan/Chief Complaint Sheet CVA history. Diabetes. Dysphagia. Dysarthria. Diabetes. Obesity. Hypertension. . 03/15/18. Acute CVA. Diabetes. Dysphagia better. Dysarthria better. Diabetes under good control. Obesity. HYPERTENSION. Patient feel she is improving. . 03/17/17. Patient having symptoms a stroke. Patient not talking well. Patient has renal insufficiency today. Patient vomited last night. Patient had abdominal pain last night. Patient able to move all extremities.. . 03/18/17. Patient doing much better today. Patient talking better. Patient's blood pressure better. Patient not vomiting. CVA. Dysarthria. Dysphagia. Diabetes. Hypertension history. Acute renal insufficiency monitoring. . 03/19/18. Patient doing better today. Patient talking better. Lab pressure slightly elevated. Speech improved. Patient not having any problems. GFR normal now Clinical Quality Measures DVT/VTE Risk/Contraindication: Risk Factor Score Per Nursin RFS Level Per Nursing on Admit: 4+=Very High ADEN LEE DO Mar 19, 2018 08:07
--- NOTE | 2018-03-19 08:14 | PM & R (SOAP) Progress Note ---
Subjective This was a face to face visit with the patient. Date Seen by Provider: Mar 19, 2018 Time Seen by Provider: 07:45 Subjective/Events-last exam Patient was seen in her room this AM Patient doing much better and Mental status and swallow and speech has retruned to baseline with rehydration Appreciate ST note as well as Dr cortez and other therapy notes BUN/CR improved with fluids Objective Physician Exam Last Set of Vital Signs Vital Signs Date Time Temp Pulse Resp B/P (MAP) Pulse Ox O2 Delivery O2 Flow Rate FiO2 03/19/18 05:50 96.8 64 18 153/61 (91) 97 Room Air Capillary Refill : Less Than 3 Seconds I&O Intake and Output 03/19/18 00:00 Intake Total 2326 ml Output Total 600 ml Balance 1726 ml Intake Oral 840 ml IV Total 1486 ml Output Urine Total 600 ml # Urine Diapers 1 General: Alert, Oriented X3, Cooperative, No Acute Distress HEENT: Atraumatic, PERRLA, EOMI, Mucous Memb Moist/[place] Neck: Supple, No JVD Lungs: Clear to Auscultation Heart: Regular Rate Abdomen: Normal Bowel Sounds, Soft, No Tenderness, Other Extremities: Other Neuro: Other Results Lab Data Laboratory Tests 03/16/18 15:55: Glucometer 133H 03/17/18 05:35: Glucometer 119H 03/17/18 07:49: Sodium Level 141, Potassium Level 4.7, Chloride Level 105, Carbon Dioxide Level 28, Anion Gap 8, Blood Urea Nitrogen 31H, Creatinine 1.32H, Estimat Glomerular Filtration Rate 39, BUN/Creatinine Ratio 23, Glucose Level 135H, Calcium Level 8.7, Total Bilirubin 1.1H, Aspartate Amino Transf (AST/SGOT) 17, Alanine Aminotransferase (ALT/SGPT) 10, Alkaline Phosphatase 64, Total Protein 5.6L, Albumin 2.8L 03/17/18 07:53: Glucometer 119H 03/17/18 09:05: White Blood Count 8.1, Red Blood Count 4.28L, Hemoglobin 12.9, Hematocrit 38, Mean Corpuscular Volume 89, Mean Corpuscular Hemoglobin 30, Mean Corpuscular Hemoglobin Concent 34, Red Cell Distribution Width 15.0H, Platelet Count 132, Mean Platelet Volume 10.6H, Neutrophils (%) (Auto) 70, Lymphocytes (%) (Auto) 15 , Monocytes (%) (Auto) 12, Eosinophils (%) (Auto) 2, Basophils (%) (Auto) 0, Neutrophils # (Auto) 5.7, Lymphocytes # (Auto) 1.2, Monocytes # (Auto) 1.0, Eosinophils # (Auto) 0.2, Basophils # (Auto) 0.0 03/17/18 15:46: Glucometer 149H 03/18/18 05:06: Glucometer 93 03/18/18 05:20: White Blood Count 5.2, Red Blood Count 3.75L, Hemoglobin 11.0L, Hematocrit 34L, Mean Corpuscular Volume 91, Mean Corpuscular Hemoglobin 29, Mean Corpuscular Hemoglobin Concent 32, Red Cell Distribution Width 15.2H, Platelet Count 114L, Mean Platelet Volume 10.8H, Neutrophils (%) (Auto) 55, Lymphocytes (%) (Auto) 30 , Monocytes (%) (Auto) 9, Eosinophils (%) (Auto) 5, Basophils (%) (Auto) 0, Neutrophils # (Auto) 2.9, Lymphocytes # (Auto) 1.6, Monocytes # (Auto) 0.5, Eosinophils # (Auto) 0.3, Basophils # (Auto) 0.0, Neutrophils % (Manual) 67, Lymphocytes % (Manual) 26, Monocytes % (Manual) 4, Eosinophils % (Manual) 2, Basophils % (Manual) 1, Poikilocytosis SLIGHT, Spherocytes SLIGHT, Rouleau SLIGHT, Sodium Level 144, Potassium Level 4.0, Chloride Level 110H, Carbon Dioxide Level 26, Anion Gap 8, Blood Urea Nitrogen 36H, Creatinine 1.34H, Estimat Glomerular Filtration Rate 38, BUN/Creatinine Ratio 27, Glucose Level 104, Calcium Level 8.3L, Total Bilirubin 1.2H, Aspartate Amino Transf (AST/SGOT ) 17, Alanine Aminotransferase (ALT/SGPT) 11, Alkaline Phosphatase 64, Total Protein 5.4L, Albumin 2.8L 03/18/18 15:51: Glucometer 205H 03/19/18 06:06: Glucometer 108 03/19/18 06:38: White Blood Count 4.1L, Red Blood Count 3.71L, Hemoglobin 11.1L, Hematocrit 33L , Mean Corpuscular Volume 90, Mean Corpuscular Hemoglobin 30, Mean Corpuscular Hemoglobin Concent 33, Red Cell Distribution Width 14.7H, Platelet Count 109L, Mean Platelet Volume 10.8H, Neutrophils (%) (Auto) 55, Lymphocytes (%) (Auto) 27 , Monocytes (%) (Auto) 10, Eosinophils (%) (Auto) 8, Basophils (%) (Auto) 1, Neutrophils # (Auto) 2.3, Lymphocytes # (Auto) 1.1, Monocytes # (Auto) 0.4, Eosinophils # (Auto) 0.3, Basophils # (Auto) 0.0, Sodium Level 143, Potassium Level 4.0, Chloride Level 110H, Carbon Dioxide Level 27, Anion Gap 6, Blood Urea Nitrogen 25H, Creatinine 0.87, Estimat Glomerular Filtration Rate > 60, BUN /Creatinine Ratio 29, Glucose Level 117H, Calcium Level 8.3L Assessment/Plan Assessment and Plan 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 improving Change in neuro status felt to be due to dehyration improved TIA on plavix Thrombocytopenia Anemia HTN better controlled DM2 controlled Cholelithiasis asymptomatic at this point Hx of DVT s/p sabina filter S/P left shoulder surgery Plan Continue PT/OT ST has signed off Reconference next week F/U with DR Cortez PCP Discharge reset for next week tentatively Monitor PO intake and Labs (1) CVA (cerebral vascular accident) Qualifiers: Qualified Codes: I63.9 - Cerebral infarction, unspecified Status: Acute Co-Morbidities that are continuing to impact the rehab process: (include details ) HECTOR BRITT MD Mar 19, 2018 08:14
[2018-03-19] MEDS: ASPIRIN E.C. 81 MG (ECOTRIN) TAB PO SCH (09:21)
[2018-03-19] MEDS: CLOPIDOGREL 75 MG (PLAVIX) TABLET PO SCH (09:21)
--- NOTE | 2018-03-19 09:25 | Physical Therapy Daily Note ---
PT Daily Note-Current Subjective Pt. agrees to Rx. States she feels better and is so much better than 2 days ago. C/o her back hurts if she lays flat in bed Pain Numeric Pain Scale: 3 Location: Medial Location Body Site: Back Pain Description: Ache Comment: while laying flat for exercises Mental Status Patient Orientation: Person, Place, Time, Situation Attachments: Other-See Comments (telemetry) Transfers Functional [place] Measure 0=Not Assessed/NA 4=Minimal Assistance 1=Total Assistance 5=Supervision or Setup 2=Maximal Assistance 6=Modified [place] 3=Moderate Assistance 7=Complete IndependenceIRFPAI Quality Coding Scale 6 Independent with activity with or without an assistive device 5 Patient requires set up or clean up by helper. Patient completes activity by themselves 4 Supervision or touching assist (CGA). [place] provide cues , steadying assist 3 The helper provides less than half the effort to complete the activity 2 The helper provides more than half the effort to complete the activity 1 Dependent. The helper does all the effort to complete an activity 7 Patient refused to complete or attempt activity 9 The patient did not perform the activity before the current illness or injury 88 Not attempted due to Medical conditions or safety concerns Transfers (B, C, W/C) (FIM): 5 Scootin Rollin Supine to/from Sit: 5 Sit to/from Stand: 5 sup to sit mod i, sit to sup requires much effort for pt. but was Mod I to SBA Weight Bearing Right Lower Extremity: Right Full Weight Bearing Left Lower Extremity: Left Full Weight Bearing Gait Training Does the Patient Walk?: Yes Gait (FIM): 5 Distance (FIM): 3=150 ft (x2) Gait Level of Assist: 5 Gait Persons Needed: 1 Gait Assistive Device: FWW slow, no LOB Exercises Supine Ex: Ankle pumps, Quad Set, Rolling, Glut sets, Heel Slides, Short Arc Quads, Scooting, Hip abd/add Supine Reps: 20 Seated Therapy Exercises: Ankle pumps, Sit to stand, Long arc quads, Hip abd/ add Seated Reps: 20 Treatments pt. up in chair on arrival with brief on but had urinated through it and onto pillow and pads beneath her. All was changed and cleaned in bathroom during toileting. Assessment Current Status: Good Progress much improved over 2 days ago PT Short Term Goals Short Term Goals Time Frame: Mar 18, 2018 Transfers (B,C,W/C) (FIM): 5 Gait (FIM): 5 Distance (FIM): 3=150 ft Gait Assistive Device: FWW PT Penitentiary Goals Penitentiary Goals PT Oil Winterizer Goals Time Frame: Mar 26, 2018 Transfers (B,C,W/C) (FIM): 6 Sit to Lying (QC): 6 Lying-Sitting on Side/Bed(QC): 6 Sit to Stand (QC): 6 Rollin Roll Left to Right (QC): 6 Chair/Zxj-iu-Vksbd Xfer(QC): 6 Car Transfer (QC): 5 Does the Patient Walk: Yes Gait (FIM): 6 Gait distance (FIM): 3=150 ft Walk 10 feet (QC): 6 Walk 10ft-Uneven Surface(QC): 6 Walk 50ft with 2 Turns (QC): 6 Walk 150 ft (QC): 6 Gait Level of Assist: 6 Gait Assistive Device: FWW Stairs (FIM): 2 # of Steps: 4 1 Step (curb) (QC): 5 4 Steps (QC): 4 12 Steps (QC): 88 Picking up an Object (QC): 88 PT Plan Treatment/Plan Treatment Plan: Continue Plan of Care Treatment Plan: Bed Mobility, Education, Functional Activity Mary Ann, Functional Strength, Group Therapy, Gait, Safety, Therapeutic Exercise, Transfers Treatment Duration: Mar 25, 2018 Frequency: At least 5 of 7 days/Wk (IRF) Estimated Hrs Per Day: 1.5 hours per day Patient and/or Family Agrees t: Yes Safety Risks/Education Patient Education: Gait Training, Transfer Techniques, Correct Positioning, Disease Process, Safety Issues Teaching Recipient: Patient Teaching Methods: Demonstration, Discussion Response to Teaching: Verbalize Understanding, Return Demonstration, Reinforcement Needed Time/GCodes Time In: 815 Time Out: 915 Total Billed Treatment Time: 60 Total Billed Treatment 1,FA25m,EX20m,GT15m G Codes Necessary: CHAR Traylor COMMERCIAL REPRESENTATIVE Mar 19, 2018 09:25
--- NOTE | 2018-03-19 11:25 | Occupational Ther Daily Note ---
OT Current Status-Daily Note Subjective Pt seen in room, up in recliner, agreeable to OT. had requested a brief break between OT and PT. No pain mentioned. Appearance Alert, cooperative Mental Status/Objective Functional [place] Measure 0=Not Assessed/NA 4=Minimal Assistance 1=Total Assistance 5=Supervision or Setup 2=Maximal Assistance 6=Modified [place] 3=Moderate Assistance 7=Complete [place] Attachments: Saline Lock ADL-Treatment Pt did not want to shower but agreed to changing her clothes. She was able to doff and marce clothing and shoes with setup/SBA and did not use AD except FWW. After dressing she walked to bathroom and groomed at sink independently, with walker off to the side like she does at home. She got on and off BSC over toilet mod I and was able to manage clothing herself but had difficulty wiping after BM. Pt provided with toilet tongs but had some difficulty using them due to part to characteristics of BSC. May do better with toilet only. Washed hands at sink safely. Functional [place] Measure 0=Not Assessed/NA 4=Minimal Assistance 1=Total Assistance 5=Supervision or Setup 2=Maximal Assistance 6=Modified [place] 3=Moderate Assistance 7=Complete IndependenceIRFPAI Quality Coding Scale 6 Independent with activity with or without an assistive device 5 Patient requires set up or clean up by helper. Patient completes activity by themselves 4 Supervision or touching assist (CGA). [place] provide cues , steadying assist 3 The helper provides less than half the effort to complete the activity 2 The helper provides more than half the effort to complete the activity 1 Dependent. The helper does all the effort to complete an activity 7 Patient refused to complete or attempt activity 9 The patient did not perform the activity before the current illness or injury 88 Not attempted due to Medical conditions or safety concerns Grooming (FIM): 7 (Stood at sink to brush teeth, comb hair, wash hands, with FWW at side. No LOB) Upper Body (FIM): 5 (setup) Lower Body Dressing (FIM): 5 (setup/SBA for pants and shoes, FWW) Toileting (FIM): 3 (Able to manage clothing but needed help with wiping after BM practiced with toilet tongs. BSC over toilet) Toilet/Commode Transfer (FIM): 6 (On and off BSC over toilet, grab bar, FWW) Other Treatment Pt walked to gym with SBA, FWW, no LOB observed. She was able to get in/out chair with arms but sometimes had to rock a couple times to get up. She did 15 minutes bilat UE exercise with arm bike set at 15W resistance and also did graded clothes pins and pegs wit 1# weight on each arm. To strengthen arms to help with getting up and down from surfaces. She walked back to her room and was left up in recliner, all needs met. Education OT Patient Education: Exercise program, Modified ADL techniques, Purpose of tx/ functional activities, Use of adapted equipment Teaching Recipient: Patient Teaching Methods: Demonstration, Discussion Response to Teaching: Verbalize Understanding, Reinforcement Needed OT Short Term Goals Short Term Goals Time Frame: Mar 18, 2018 Eating(FIM): 5 Grooming(FIM): 5 Bathing(FIM): 5 Upper Body Dressing(FIM): 5 Lower Body Dressing(FIM): 5 Toileting(FIM): 5 Transfers (B,C,W/C) (FIM): 5 Toilet/Commode Transfer(FIM): 5 Shower Transfer(FIM): 5 Comprehension(FIM): 5 Expression(FIM): 3 Social Interaction(FIM): 7 Problem Solving(FIM): 4 Memory(FIM): 4 Additional Short Term Goals: 1-Demonstrate ADL Tasks, 2-Verbalize Understanding , 3-ImproveStrength/[place] 1=Demonstrate adherence to instructed precautions during ADL tasks. 2=Patient will verbalize/demonstrate understanding of assistive devices/ modifications for ADL. 3=Patient will improve strength/tolerance for activity to enable patient to perform ADL's. OT Medical Billing Manager Goals Care Home Goals Time Frame: Mar 25, 2018 Eating (FIM): 6 Eating (QC): 6 Groomin Oral Hygiene (QC): 6 Bathing(FIM): 5 Shower/Bathe Self (QC): 5 Upper Body Dressing(FIM): 6 Upper Body Dressing (QC): 6 Lower Body Dressing(FIM): 6 Lower Body Dressing (QC): 6 On/Off Footwear (QC): 6 Toileting(FIM): 6 Toileting Hygiene (QC): 6 Transfers (B,C,W/C) (FIM): 6 Toilet/Commode Transfer(FIM): 6 Toilet/Commode Transfer (QC): 6 Shower Transfer(FIM): 5 Comprehension(FIM): 6 (MET) Expression (FIM): 5 (MET) Social Interaction(FIM): 7 (MET) Problem Solving(FIM): 4 (MET) Memory(FIM): 4 (MET) Additional Goals: 1-Demonstrate ADL Tasks, 2-Verbalize Understanding, 3- ImproveStrength/[place] 1=Demonstrate adherence to instructed precautions during ADL tasks. 2=Patient will verbalize/demonstrate understanding of assistive devices/ modifications for ADL. 3=Patient will improve strength/tolerance for activity to enable patient to perform ADL's. OT Education/Plan Discharge Recommendations Plan/Recommendations: Continue POC Treatment Plan/Plan of Care Patient would benefit from OT for education, treatment and training to promote independence in ADL's, mobility, safety and/or upper extremity function for ADL' s. Plan of Care: ADL Retraining, Functional Mobility, UE Funct Exercise/Act Treatment Duration: Mar 25, 2018 Frequency: At least 5 of 7 days/Wk (IRF) Estimated Hrs Per Day: 1.5 hours per day Rehab Potential: Good Time/GCodes Start Time: 09:30 Stop Time: 11:00 Total Time Billed (hr/min): 90 Billed Treatment Time visit, 35 minutes ADL, 55 minutes exercise JANNET COREY OT Mar 19, 2018 11:25
[2018-03-19] MEDS: SENNA W/DOCUSATE (SENOKOT S) TABLET PO SCH ×2 (12:26→21:00)
--- NOTE | 2018-03-19 13:06 | Cardiology Progress Note ---
Cardiology SOAP Progress Note Subjective: No cardiac symptoms. Objective: I&O/Vital Signs 03/19/18 03/19/18 03/19/18 05:50 07:00 09:00 Temp 96.8 Pulse 64 64 Resp 18 B/P (MAP) 153/61 (91) Pulse Ox 97 O2 Delivery Room Air Room Air 03/19/18 00:00 Intake Total 1600 ml Output Total 300 ml Balance 1300 ml Weight (Pounds): 270 Weight (Ounces): 1.6 Weight (Calculated Kilograms): 122.731238 Constitutional: AAO x 3, well-developed, well-nourished Respiratory: No accessory muscle use, No respiratory distress; lungs clear to auscultation Cardiovascular: regular rate-rhythm; No JVD; S1 and S2 Gastrointestional: No tender, No soft, No round, No distended, No pulsatile mass, No organomegaly, No guarding, No rebound, No tenderness, No hernia, No mass; audible bowel sounds; No abnormal bowel sounds, No abdominal bruits, No spleenomegaly, No other Extremities: No normal range of motion, No non-tender, No normal inspection, No pedal edema, No calf tenderness, No normal capillary refill, No pelvis stable , No calf tenderness, No inflammation, No pedal edema, No slow capillary refill , No swelling, No other, No abrasion, No clubbing, No cyanosis, No ecchymosis, No laceration; no lower extremity edema bilateral; No significant edema, No tenderness, No wound Neurologic/Psychiatric: alert, normal mood/affect, oriented x 3, grossly intact (speech appropriate today) Skin: No rash, No ulcerations Results/Procedures: Labs Laboratory Tests 03/18/18 15:51: Glucometer 205H 03/19/18 06:06: Glucometer 108 03/19/18 06:38: White Blood Count 4.1L, Red Blood Count 3.71L, Hemoglobin 11.1L, Hematocrit 33L , Mean Corpuscular Volume 90, Mean Corpuscular Hemoglobin 30, Mean Corpuscular Hemoglobin Concent 33, Red Cell Distribution Width 14.7H, Platelet Count 109L, Mean Platelet Volume 10.8H, Neutrophils (%) (Auto) 55, Lymphocytes (%) (Auto) 27 , Monocytes (%) (Auto) 10, Eosinophils (%) (Auto) 8, Basophils (%) (Auto) 1, Neutrophils # (Auto) 2.3, Lymphocytes # (Auto) 1.1, Monocytes # (Auto) 0.4, Eosinophils # (Auto) 0.3, Basophils # (Auto) 0.0, Sodium Level 143, Potassium Level 4.0, Chloride Level 110H, Carbon Dioxide Level 27, Anion Gap 6, Blood Urea Nitrogen 25H, Creatinine 0.87, Estimat Glomerular Filtration Rate > 60, BUN /Creatinine Ratio 29, Glucose Level 117H, Calcium Level 8.3L A/P: Assessment/Dx: Cryptogenic CVA with subsequent dysphasia, worse on 03-17-18, but has improved. Echo of 03/18/18: LVEF 55-60%, AoV sclerosis w/o stenosis, PASP 30 mmHg No angiographically significant coronary artery disease, normal global left ventricular systolic function with an ejection fraction of approximately 60 to 65%, elevated left ventricular end-diastolic pressure indicative of some degree of diastolic dysfunction of the left ventricle, and no significant mitral regurgitation per cardiac catheterization from 01/06/12 Maturity onset diabetes mellitus. Hypertension, currently controlled. Acute renal insufficiency - management per medical services Chronic bilateral leg swelling, likely related to venous insufficiency. Hyperlipidemia, chronically being treated with simvastatin and being managed by Dr. Cortez. Chronic mild anemia and mild thrombocytopenia being managed by Dr. Cortez. Chronic back pain and degenerative joint disease. Pulmonary artery systolic pressure is estimated to be approximately 40 mmHg per echocardiogram from 08/18/2013, which is unchanged from 2012. Elevated BMI of approx 45 Plan: Patient has cryptogenic stroke with no significant disease in the carotid arteries. Echocardiogram does not show any significant abnormality. Telemetry for a few days did not show paroxysmal atrial fibrillation. Implantable loop recorder is recommended for atrial fibrillation surveillance in a patient with cryptogenic stroke. Discussed at length with the patient and all the risks and complication were addressed. Informed consent taken. We will continue aspirin and Plavix for now. If any evidence of atrial fibrillation is found on the loop recorder, she will be converted to oral anti- coagulation. Continue inpatient rehabilitation. Acute on chronic renal insufficiency. Nephrology consultation is recommended as an outpatient. Thank you for your consultation. Please call me if you have any questions. Elgin Colvin MD, FACP, FACC, FSCAI, FHRS, CCDS Interventional Cardiology Cardiac Electrophysiology Vascular [facility] and End[facility] Inter[facility] [place] COLVIN MD Mar 19, 2018 1:06 pm
--- NOTE | 2018-03-19 13:38 | Physical Therapy Daily Note ---
PT Daily Note-Current Subjective Agrees to Rx. States she just visited with Dr Nina and is having a procedure this afternoon that will be a "chip" in her chest to monitor her heart Pain Numeric Pain Scale: 0-No Pain Mental Status Patient Orientation: Person, Place, Time, Situation Transfers Functional [place] Measure 0=Not Assessed/NA 4=Minimal Assistance 1=Total Assistance 5=Supervision or Setup 2=Maximal Assistance 6=Modified [place] 3=Moderate Assistance 7=Complete IndependenceIRFPAI Quality Coding Scale 6 Independent with activity with or without an assistive device 5 Patient requires set up or clean up by helper. Patient completes activity by themselves 4 Supervision or touching assist (CGA). [place] provide cues , steadying assist 3 The helper provides less than half the effort to complete the activity 2 The helper provides more than half the effort to complete the activity 1 Dependent. The helper does all the effort to complete an activity 7 Patient refused to complete or attempt activity 9 The patient did not perform the activity before the current illness or injury 88 Not attempted due to Medical conditions or safety concerns all TRFs Mod I Weight Bearing Right Lower Extremity: Right Full Weight Bearing Left Lower Extremity: Left Full Weight Bearing Gait Training Gait Assistive Device: FWW 200ft x 2 SBA, no LOB, trunk flexed over FWW Exercises NuStep Minutes: 10 NuStep Workload: 2 Treatments nustep for increased LE strength facilitating gait pattern Assessment Current Status: Good Progress PT Short Term Goals Short Term Goals Time Frame: Mar 18, 2018 Transfers (B,C,W/C) (FIM): 5 Gait (FIM): 5 Distance (FIM): 3=150 ft Gait Assistive Device: FWW PT Wind Tunnel Engineer Goals Shelter Goals PT Wind Tunnel Engineer Goals Time Frame: Mar 26, 2018 Transfers (B,C,W/C) (FIM): 6 Sit to Lying (QC): 6 Lying-Sitting on Side/Bed(QC): 6 Sit to Stand (QC): 6 Rollin Roll Left to Right (QC): 6 Chair/Ivd-li-Aihst Xfer(QC): 6 Car Transfer (QC): 5 Does the Patient Walk: Yes Gait (FIM): 6 Gait distance (FIM): 3=150 ft Walk 10 feet (QC): 6 Walk 10ft-Uneven Surface(QC): 6 Walk 50ft with 2 Turns (QC): 6 Walk 150 ft (QC): 6 Gait Level of Assist: 6 Gait Assistive Device: FWW Stairs (FIM): 2 # of Steps: 4 1 Step (curb) (QC): 5 4 Steps (QC): 4 12 Steps (QC): 88 Picking up an Object (QC): 88 PT Plan Treatment/Plan Treatment Plan: Continue Plan of Care Treatment Plan: Bed Mobility, Education, Functional Activity [place], Functional Strength, Group Therapy, Gait, Safety, Therapeutic Exercise, Transfers Treatment Duration: Mar 25, 2018 Frequency: At least 5 of 7 days/Wk (IRF) Estimated Hrs Per Day: 1.5 hours per day Patient and/or Family Agrees t: Yes Safety Risks/Education Patient Education: Gait Training, Transfer Techniques Teaching Recipient: Patient Teaching Methods: Demonstration, Discussion Response to Teaching: Verbalize Understanding, Return Demonstration, Reinforcement Needed Time/GCodes Time In: 1300 Time Out: 1330 Total Billed Treatment Time: 30 Total Billed Treatment 1,GT20m,EX10m G Codes Necessary: No CHAR ANTUNEZ BILLING COLLECTIONS SPECIALIST Mar 19, 2018 13:38
--- NOTE | 2018-03-19 14:08 | Occupational Ther Daily Note ---
OT Current Status-Daily Note Subjective Pt seen in room, up at EOB, agreeable to OT but did not want to shower at this time. Reported pain in L knee but did not rate or describe it. Appearance Alert, cooperative Mental Status/Objective Functional [place] Measure 0=Not Assessed/NA 4=Minimal Assistance 1=Total Assistance 5=Supervision or Setup 2=Maximal Assistance 6=Modified [place] 3=Moderate Assistance 7=Complete [place] ADL-Treatment Pt education in use of dressing stick, sock aid, aerial lineman, long handled shoe horn , with return demonstration for stick and sock aid. Discussion modified techniques for dressing lower body and putting on HECTOR hose. Also talked about optional resources for equipment with patient and . pt anticipates discharge to home tomorrow. DC OT, with goals met to patient satisfaction. Education OT Patient Education: Modified ADL techniques, Purpose of tx/functional activities, Use of adapted equipment Teaching Recipient: Patient, Family Teaching Methods: Demonstration, Discussion Response to Teaching: Verbalize Understanding, Return Demonstration OT Short Term Goals Short Term Goals Time Frame: Mar 18, 2018 Eating(FIM): 5 Grooming(FIM): 5 Bathing(FIM): 5 Upper Body Dressing(FIM): 5 Lower Body Dressing(FIM): 5 Toileting(FIM): 5 Transfers (B,C,W/C) (FIM): 5 Toilet/Commode Transfer(FIM): 5 Shower Transfer(FIM): 5 Comprehension(FIM): 5 Expression(FIM): 3 Social Interaction(FIM): 7 Problem Solving(FIM): 4 Memory(FIM): 4 Additional Short Term Goals: 1-Demonstrate ADL Tasks, 2-Verbalize Understanding , 3-ImproveStrength/[place] 1=Demonstrate adherence to instructed precautions during ADL tasks. 2=Patient will verbalize/demonstrate understanding of assistive devices/ modifications for ADL. 3=Patient will improve strength/tolerance for activity to enable patient to perform ADL's. OT Shelter Goals Shelter Goals Time Frame: Mar 25, 2018 Eating (FIM): 6 Grooming(FIM): 6 Bathing(FIM): 5 Upper Body Dressing(FIM): 6 Lower Body Dressing(FIM): 6 Toileting(FIM): 6 Transfers (B,C,W/C) (FIM): 6 Toilet/Commode Transfer(FIM): 6 Shower Transfer(FIM): 5 Comprehension(FIM): 6 (MET) Expression (FIM): 5 (MET) Social Interaction(FIM): 7 (MET) Problem Solving(FIM): 4 (MET) Memory(FIM): 4 (MET) Additional Goals: 1-Demonstrate ADL Tasks, 2-Verbalize Understanding, 3- ImproveStrength/[place] 1=Demonstrate adherence to instructed precautions during ADL tasks. 2=Patient will verbalize/demonstrate understanding of assistive devices/ modifications for ADL. 3=Patient will improve strength/tolerance for activity to enable patient to perform ADL's. OT Education/Plan Discharge Recommendations Plan/Recommendations: Discharge/Goals Met (to patient satisfaction) Treatment Plan/Plan of Care Patient would benefit from OT for education, treatment and training to promote independence in ADL's, mobility, safety and/or upper extremity function for ADL' s. Plan of Care: ADL Retraining, Functional Mobility, UE Funct Exercise/Act Treatment Duration: Mar 25, 2018 Frequency: At least 5 of 7 days/Wk (IRF) Estimated Hrs Per Day: 1.5 hours per day Rehab Potential: Good Time/GCodes Start Time: 13:30 Stop Time: 13:55 Total Time Billed (hr/min): 25 Billed Treatment Time visit, 25 minutes ADL JANENT COREY OT Mar 19, 2018 14:08
[2018-03-19] MEDS ORDERED: LIDOCAINE 1% INJ 20 ML 20 ML VIAL ONE ×2 (15:35→15:51)
--- NOTE | 2018-03-19 16:23 | Implantation of Loop Monitor ---
Implant of Loop Monitior PROCEDURE PHYSICIAN: Elgin Pozo MD IMPLANTATION OF LOOP MONITOR REPORT DATE OF PROCEDURE: 03/19/18 PERFORMING PHYSICIAN: Dr. Dmitri Pozo. INDICATION: Cryptogenic stroke PREOP DIAGNOSIS: Cryptogenic stroke POSTOP DIAGNOSIS: s/p implantation of loop recorder. PROCEDURE DETAILS: The patient is a 77 female with history of cryptogenic stroke. Therefore implantable loop recorder was discussed and agreed with the patient. Informed consent was taken. All risks and complications were discussed at length. The patient was draped and prepped in the usual sterile fashion. Local anesthesia was lidocaine, which was given in the substernal area close to the 4th intercostal space. BareedEEronik Loop monitor was implanted according to the protocol. Steri-Strips were placed at the end of the procedure. There were no complications and the patient tolerated the procedure well. The device was interrogated with a voltage of 0.98 mV. ANESTHESIA: Local anesthesia with lidocaine. COMPLICATIONS: None CONTRAST/FLUOROSCOPY: None CONCLUSION: 1. Successful implantation of loop monitor for cryptogenic stroke.. 2. No complication and the patient tolerated the procedure well. Elgin Pozo MD, [facility], CCDS Cardiac Electrophysiology [place] POZO MD Mar 19, 2018 16:23
[2018-03-19 16:38] VITALS: BP 118/79
[2018-03-19] MEDS: POLYETHYLENE GLYCOL 17 GM (MIRALAX) PACK PO SCH (21:00)
[2018-03-19] MEDS: ATORVASTATIN 40 MG (LIPITOR) TABLET PO SCH (21:11)
[2018-03-20 05:41] LABS: BASOPHILS % (AUTO) 1 % (0-10); EOSINOPHILS # (AUTO) 0.4 10^3/uL (0.0-0.3); EOSINOPHILS % (AUTO) 10 % (0-10); HEMATOCRIT 30 % (35-52); HEMOGLOBIN 10.1 G/DL (11.5-16.0); LYMPHOCYTES % (AUTO) 25 % (12-44); MEAN CORPUSCULAR HEMOGLOBIN 30 PG (25-34); MEAN CORPUSCULAR HGB CONC 33 G/DL (32-36); MEAN CORPUSCULAR VOLUME 90 FL (80-99); MONOCYTES # (AUTO) 0.4 X 10^3 (0.0-1.0); MONOCYTES % (AUTO) 10 % (0-12); NEUTROPHILS # (AUTO) 2.1 X 10^3 (1.8-7.8); NEUTROPHILS % (AUTO) 54 % (42-75); PLATELET COUNT 92 10^3/uL (130-400); RED BLOOD COUNT 3.35 10^6/uL (4.35-5.85); RED CELL DISTRIBUTION WIDTH 14.4 % (10.0-14.5); WHITE BLOOD COUNT 3.8 10^3/uL (4.3-11.0)
[2018-03-20 06:00] VITALS: BP 164/77
[2018-03-20] MEDS: FAMOTIDINE 20 MG (PEPCID) TABLET PO SCH (06:17)
[2018-03-20] MEDS: PANTOPRAZOLE 40 MG (PROTONIX) TAB PO SCH (06:17)
--- NOTE | 2018-03-20 08:23 | Physical Therapy Daily Note ---
PT Daily Note-Current Subjective Patient in recliner pre tx, agrees to PT, no complaints of pain. Appearance Patient in recliner post tx with nurse call, phone, tray, all needs met. Mental Status Patient Orientation: Normal For Age Transfers Functional [place] Measure 0=Not Assessed/NA 4=Minimal Assistance 1=Total Assistance 5=Supervision or Setup 2=Maximal Assistance 6=Modified [place] 3=Moderate Assistance 7=Complete IndependenceIRFPAI Quality Coding Scale 6 Independent with activity with or without an assistive device 5 Patient requires set up or clean up by helper. Patient completes activity by themselves 4 Supervision or touching assist (CGA). [place] provide cues , steadying assist 3 The helper provides less than half the effort to complete the activity 2 The helper provides more than half the effort to complete the activity 1 Dependent. The helper does all the effort to complete an activity 7 Patient refused to complete or attempt activity 9 The patient did not perform the activity before the current illness or injury 88 Not attempted due to Medical conditions or safety concerns Transfers (B, C, W/C) (FIM): 6 Sit to/from Stand: 6 Bed to/from Chair: 6 Patient has some difficulty with sit to stand but can do it without assist Weight Bearing Right Lower Extremity: Right Full Weight Bearing Left Lower Extremity: Left Full Weight Bearing Gait Training Gait (FIM): 6 Distance: 150'x2 Gait Assistive Device: FWW Exercises NuStep Minutes: 15 NuStep Workload: 4 Treatments transfers, ambulation, functional strengthening Assessment Current Status: Fair Progress slowly improving endurance PT Short Term Goals Short Term Goals Time Frame: Mar 18, 2018 Transfers (B,C,W/C) (FIM): 5 Gait (FIM): 5 Distance (FIM): 3=150 ft Gait Assistive Device: FWW PT Office Supervisor Goals [facility] Goals PT Office Supervisor Goals Time Frame: Mar 26, 2018 Transfers (B,C,W/C) (FIM): 6 Sit to Lying (QC): 6 Lying-Sitting on Side/Bed(QC): 6 Sit to Stand (QC): 6 Rollin Roll Left to Right (QC): 6 Chair/Zlp-gh-Kwydr Xfer(QC): 6 Car Transfer (QC): 5 Does the Patient Walk: Yes Gait (FIM): 6 Gait distance (FIM): 3=150 ft Walk 10 feet (QC): 6 Walk 10ft-Uneven Surface(QC): 6 Walk 50ft with 2 Turns (QC): 6 Walk 150 ft (QC): 6 Gait Level of Assist: 6 Gait Assistive Device: FWW Stairs (FIM): 2 # of Steps: 4 1 Step (curb) (QC): 5 4 Steps (QC): 4 12 Steps (QC): 88 Picking up an Object (QC): 88 PT Plan Problem List Problem List: Activity Tolerance, Functional Strength, Safety, Balance, Gait, Transfer, Bed Mobility, ROM Treatment/Plan Treatment Plan: Continue Plan of Care Treatment Plan: Bed Mobility, Education, Functional Activity [place], Functional Strength, Group Therapy, Gait, Safety, Therapeutic Exercise, Transfers Treatment Duration: Mar 25, 2018 Frequency: At least 5 of 7 days/Wk (IRF) Estimated Hrs Per Day: 1.5 hours per day Patient and/or Family Agrees t: Yes Safety Risks/Education Patient Education: Gait Training, Transfer Techniques, Correct Positioning, Safety Issues Teaching Recipient: Patient Teaching Methods: Demonstration, Discussion Response to Teaching: Reinforcement Needed Time/GCodes Time In: 0755 Time Out: 0815 Total Billed Treatment Time: 20 Total Billed Treatment 1 visit EX 15' JIM HAUSER PT Mar 20, 2018 08:23
[2018-03-20] MEDS: CLOPIDOGREL 75 MG (PLAVIX) TABLET PO SCH (08:28)
[2018-03-20] MEDS: ASPIRIN E.C. 81 MG (ECOTRIN) TAB PO SCH (08:28)
[2018-03-20] MEDS: SENNA W/DOCUSATE (SENOKOT S) TABLET PO SCH ×2 (08:28→20:25)
--- NOTE | 2018-03-20 13:24 | Cardiology Progress Note ---
Cardiology SOAP Progress Note Subjective: No cardiac compliant Objective: I&O/Vital Signs 03/20/18 03/20/18 06:00 09:00 Temp 97.6 Pulse 58 Resp 18 B/P (MAP) 164/77 (106) Pulse Ox 98 O2 Delivery Room Air Room Air 03/20/18 00:00 Intake Total 720 ml Balance 720 ml Weight (Pounds): 277 Weight (Ounces): 3.2 Weight (Calculated Kilograms): 125.963478 Device Insertion Site: without hematoma Swelling: without swelling Constitutional: AAO x 3, well-developed, well-nourished Respiratory: No accessory muscle use, No respiratory distress; lungs clear to auscultation Cardiovascular: regular rate-rhythm; No JVD; S1 and S2 Gastrointestional: No tender, No soft, No round, No distended, No pulsatile mass, No organomegaly, No guarding, No rebound, No tenderness, No hernia, No mass; audible bowel sounds; No abnormal bowel sounds, No abdominal bruits, No spleenomegaly, No other Extremities: No normal range of motion, No non-tender, No normal inspection, No pedal edema, No calf tenderness, No normal capillary refill, No pelvis stable , No calf tenderness, No inflammation, No pedal edema, No slow capillary refill , No swelling, No other, No abrasion, No clubbing, No cyanosis, No ecchymosis, No laceration; no lower extremity edema bilateral; No significant edema, No tenderness, No wound Neurologic/Psychiatric: alert, normal mood/affect, oriented x 3, grossly intact (speech appropriate today) Skin: No rash, No ulcerations Results/Procedures: Labs Laboratory Tests 03/19/18 16:24: Glucometer 151H 03/20/18 05:22: White Blood Count 3.8L, Red Blood Count 3.35L, Hemoglobin 10.1L, Hematocrit 30L , Mean Corpuscular Volume 90, Mean Corpuscular Hemoglobin 30, Mean Corpuscular Hemoglobin Concent 33, Red Cell Distribution Width 14.4, Platelet Count 92L, Mean Platelet Volume 11.0H, Neutrophils (%) (Auto) 54, Lymphocytes (%) (Auto) 25 , Monocytes (%) (Auto) 10, Eosinophils (%) (Auto) 10, Basophils (%) (Auto) 1, Neutrophils # (Auto) 2.1, Lymphocytes # (Auto) 1.0, Monocytes # (Auto) 0.4, Eosinophils # (Auto) 0.4H, Basophils # (Auto) 0.0 03/20/18 05:45: Glucometer 114H A/P: Assessment/Dx: Cryptogenic CVA with subsequent dysphasia, worse on 03-17-18, but has improved. s /p Biotronic loop recorder for atrial fibrillation surveillance. Echo of 03/18/18: LVEF 55-60%, AoV sclerosis w/o stenosis, PASP 30 mmHg No angiographically significant coronary artery disease, normal global left ventricular systolic function with an ejection fraction of approximately 60 to 65%, elevated left ventricular end-diastolic pressure indicative of some degree of diastolic dysfunction of the left ventricle, and no significant mitral regurgitation per cardiac catheterization from 01/06/12 Maturity onset diabetes mellitus. Hypertension, currently controlled. Acute renal insufficiency - management per medical services Chronic bilateral leg swelling, likely related to venous insufficiency. Hyperlipidemia, chronically being treated with simvastatin and being managed by Dr. Cortez. Chronic mild anemia and mild thrombocytopenia being managed by Dr. Cortez. Chronic back pain and degenerative joint disease. Pulmonary artery systolic pressure is estimated to be approximately 40 mmHg per echocardiogram from 08/18/2013, which is unchanged from 2012. Elevated BMI of approx 45 Plan: Patient has cryptogenic stroke with no significant disease in the carotid arteries. Echocardiogram does not show any significant abnormality. Telemetry for a few days did not show paroxysmal atrial fibrillation. Implantable loop recorder done yesterday. site looks good with mild blood tinged discharge. will recommend changing dressing today. We will continue aspirin and Plavix for now. If any evidence of atrial fibrillation is found on the loop recorder, she will be converted to oral anti- coagulation. Continue inpatient rehabilitation. Acute on chronic renal insufficiency. Nephrology consultation is recommended as an outpatient. Thank you for your consultation. Please call me if you have any questions. Elgin Colvin MD, FACP, FACC, FSCAI, FHRS, CCDS Interventional Cardiology Cardiac Electrophysiology Vascular Medicine and Endovascular Interventions [place] MD Mar 20, 2018 1:24 pm
[2018-03-20] MEDS: CATHETER FLUSH 10 ML SYR IV PRN (16:48)
[2018-03-20 17:07] VITALS: BP 123/75
[2018-03-20] MEDS: ATORVASTATIN 40 MG (LIPITOR) TABLET PO SCH (20:25)
[2018-03-20] MEDS: POLYETHYLENE GLYCOL 17 GM (MIRALAX) PACK PO SCH (20:25)
[2018-03-21 06:04] VITALS: BP 161/59
[2018-03-21] MEDS: FAMOTIDINE 20 MG (PEPCID) TABLET PO SCH (06:11)
[2018-03-21] MEDS: PANTOPRAZOLE 40 MG (PROTONIX) TAB PO SCH (06:11)
[2018-03-21] MEDS: ASPIRIN E.C. 81 MG (ECOTRIN) TAB PO SCH (09:05)
[2018-03-21] MEDS: SENNA W/DOCUSATE (SENOKOT S) TABLET PO SCH ×2 (09:05→21:15)
[2018-03-21] MEDS: CLOPIDOGREL 75 MG (PLAVIX) TABLET PO SCH (09:05)
--- NOTE | 2018-03-21 10:32 | Cardiology Progress Note ---
Cardiology SOAP Progress Note Subjective: No cardiac complaints. Objective: I&O/Vital Signs 03/21/18 03/21/18 03/21/18 03/21/18 12:34 16:15 17:18 19:09 Temp 97.2 Pulse 68 56 65 59 Resp 18 16 B/P (MAP) 183/77 (112) 192/71 (111) 192/83 (119) 171/62 (98) Pulse Ox 97 O2 Delivery Room Air 03/21/18 20:30 O2 Delivery Room Air 03/21/18 00:00 Intake Total 1060 ml Balance 1060 ml Weight (Pounds): 282 Weight (Ounces): 3.2 Weight (Calculated Kilograms): 128.675128 Device Insertion Site: without hematoma Swelling: without swelling Constitutional: AAO x 3, well-developed, well-nourished Respiratory: No accessory muscle use, No respiratory distress; lungs clear to auscultation Cardiovascular: regular rate-rhythm; No JVD; S1 and S2 Gastrointestional: No tender, No soft, No round, No distended, No pulsatile mass, No organomegaly, No guarding, No rebound, No tenderness, No hernia, No mass; audible bowel sounds; No abnormal bowel sounds, No abdominal bruits, No spleenomegaly, No other Extremities: No normal range of motion, No non-tender, No normal inspection, No pedal edema, No calf tenderness, No normal capillary refill, No pelvis stable , No calf tenderness, No inflammation, No pedal edema, No slow capillary refill , No swelling, No other, No abrasion, No clubbing, No cyanosis, No ecchymosis, No laceration; no lower extremity edema bilateral; No significant edema, No tenderness, No wound Neurologic/Psychiatric: alert, normal mood/affect, oriented x 3, grossly intact (speech appropriate today) Skin: No rash, No ulcerations Results/Procedures: Labs Laboratory Tests 03/21/18 05:50: Glucometer 149H 03/21/18 16:12: Glucometer 161H A/P: Assessment/Dx: Cryptogenic CVA with subsequent dysphasia, worse on 03-17-18, but has improved. s /p Biotronic loop recorder for atrial fibrillation surveillance. Echo of 03/18/18: LVEF 55-60%, AoV sclerosis w/o stenosis, PASP 30 mmHg No angiographically significant coronary artery disease, normal global left ventricular systolic function with an ejection fraction of approximately 60 to 65%, elevated left ventricular end-diastolic pressure indicative of some degree of diastolic dysfunction of the left ventricle, and no significant mitral regurgitation per cardiac catheterization from 01/06/12 Maturity onset diabetes mellitus. Hypertension, currently controlled. Acute renal insufficiency - management per medical services Chronic bilateral leg swelling, likely related to venous insufficiency. Hyperlipidemia, chronically being treated with simvastatin and being managed by Dr. Cortez. Chronic mild anemia and mild thrombocytopenia being managed by Dr. Cortez. Chronic back pain and degenerative joint disease. Pulmonary artery systolic pressure is estimated to be approximately 40 mmHg per echocardiogram from 08/18/2013, which is unchanged from 2012. Elevated BMI of approx 45 Plan: Patient has cryptogenic stroke with no significant disease in the carotid arteries. Echocardiogram does not show any significant abnormality. Telemetry for a few days did not show paroxysmal atrial fibrillation. Implantable loop recorder done recently. site looks good with mild blood tinged discharge. will recommend changing dressing today. We will continue aspirin and Plavix for now. If any evidence of atrial fibrillation is found on the loop recorder, she will be converted to oral anti- coagulation. Continue inpatient rehabilitation. Acute on chronic renal insufficiency. Nephrology consultation is recommended as an outpatient. Thank you for your consultation. Please call me if you have any questions. Elgin Colvin MD, FACP, FACC, FSCAI, FHRS, CCDS Interventional Cardiology Cardiac Electrophysiology Vascular Medicine and Endovascular Interventions [place] MD Mar 21, 2018 10:32
[2018-03-21 12:34] VITALS: BP 183/77
[2018-03-21] MEDS: TELMISARTAN 40 MG (MICARDIS) TAB PO SCH (12:43)
[2018-03-21] MEDS: CATHETER FLUSH 10 ML SYR IV PRN (13:58)
[2018-03-21 16:15] VITALS: BP 192/71
[2018-03-21 17:18] VITALS: BP 192/83
[2018-03-21] MEDS ORDERED: lisINopril 10 MG (PRINIVIL) TABLET PO ONE (17:30)
[2018-03-21] MEDS ORDERED: lisINopril 10 MG (PRINIVIL) TABLET ONE (17:40)
[2018-03-21 19:09] VITALS: BP 171/62
[2018-03-21] MEDS: POLYETHYLENE GLYCOL 17 GM (MIRALAX) PACK PO SCH (21:15)
[2018-03-21] MEDS: ATORVASTATIN 40 MG (LIPITOR) TABLET PO SCH (21:15)
[2018-03-22 05:43] VITALS: BP 145/59
[2018-03-22] MEDS: PANTOPRAZOLE 40 MG (PROTONIX) TAB PO SCH (06:04)
[2018-03-22] MEDS: FAMOTIDINE 20 MG (PEPCID) TABLET PO SCH (06:04)
--- NOTE | 2018-03-22 08:04 | Progress Note (SOAP) ---
Subjective Time Seen by Provider: 08:00 Subjective/Events-last exam Patient feeling better today. Blood pressure is better. Patient getting around better. Patient's platelet count 92,000. Consult with hematology Objective Exam Vital Signs Date Time Temp Pulse Resp B/P (MAP) Pulse Ox O2 Delivery O2 Flow Rate FiO2 03/22/18 05:43 97.8 61 19 145/59 (87) 98 Room Air 03/21/18 20:30 Room Air 03/21/18 19:09 59 171/62 (98) 03/21/18 17:18 65 192/83 (119) 03/21/18 16:15 97.2 56 16 192/71 (111) 97 Room Air 03/21/18 12:34 68 18 183/77 (112) 03/21/18 09:00 Room Air I & O 03/22/18 07:00 Intake Total 1890 ml Balance 1890 ml Capillary Refill : Less Than 3 Seconds General Appearance: No Apparent Distress, WD/WN, Obese HEENT: Normal ENT Inspection Neck: Full Range of Motion, Normal Inspection Respiratory: Lungs Clear, No Accessory Muscle Use, No Respiratory Distress Cardiovascular: Regular Rate, Rhythm, No Murmur Gastrointestinal: non tender, soft Results Lab Laboratory Tests 03/21/18 16:12: Glucometer 161H 03/22/18 05:10: Glucometer 130H Assessment/Plan Assessment/Plan Assess & Plan/Chief Complaint Sheet CVA history. Diabetes. Dysphagia. Dysarthria. Diabetes. Obesity. Hypertension. . 03/15/18. Acute CVA. Diabetes. Dysphagia better. Dysarthria better. Diabetes under good control. Obesity. HYPERTENSION. Patient feel she is improving. . 03/17/17. Patient having symptoms a stroke. Patient not talking well. Patient has renal insufficiency today. Patient vomited last night. Patient had abdominal pain last night. Patient able to move all extremities.. . 03/18/17. Patient doing much better today. Patient talking better. Patient's blood pressure better. Patient not vomiting. CVA. Dysarthria. Dysphagia. Diabetes. Hypertension history. Acute renal insufficiency monitoring. . 03/19/18. Patient doing better today. Patient talking better. Lab pressure slightly elevated. Speech improved. Patient not having any problems. GFR normal now. . . CVA. Diabetes. Thrombocytopenia. Dysphagia. Dysarthria. Obesity. Patient doing much better in speaking better and getting around better Clinical Quality Measures DVT/VTE Risk/Contraindication: Risk Factor Score Per Nursin RFS Level Per Nursing on Admit: 4+=Very High ADEN LEE DO Mar 22, 2018 08:04
[2018-03-22] MEDS: ASPIRIN E.C. 81 MG (ECOTRIN) TAB PO SCH (08:06)
[2018-03-22] MEDS: lisINopril 10 MG (PRINIVIL) TABLET PO SCH (08:06)
[2018-03-22] MEDS: SENNA W/DOCUSATE (SENOKOT S) TABLET PO SCH ×2 (08:06→20:39)
[2018-03-22] MEDS: CLOPIDOGREL 75 MG (PLAVIX) TABLET PO SCH (08:06)
[2018-03-22] MEDS: TELMISARTAN 40 MG (MICARDIS) TAB PO SCH (08:07)
--- NOTE | 2018-03-22 08:50 | Occupational Ther Daily Note ---
OT Current Status-Daily Note Subjective Pt alert, sitting in recliner. Pt agrees to therapy. No c/o pain at this time. Mental Status/Objective Patient Orientation: Person, Place, Time, Situation Functional [place] Measure 0=Not Assessed/NA 4=Minimal Assistance 1=Total Assistance 5=Supervision or Setup 2=Maximal Assistance 6=Modified [place] 3=Moderate Assistance 7=Complete [place] Attachments: IV ADL-Treatment Pt agrees to therapy. Using FWW, pt is able to retrieve clothing with supervision then transport to bathroom. Pt transferred using FWW, grabbars and BSC to toilet, mod I. Complete hygiene with urination by self, assist needed for BM. Manipulation of clothing, mod I. Pt then transferred to shower using shower bench, grabbars and FWW with supervision. Set up for bathing, assist to manipulate hand held shower and direct how to turn on water. Using shower bench , hand held shower, grabbars and long handle sponge to bathe self. Pt able to dry and rinse self. Donned clothing by self with supervision in standing to hike pants over hips. Pt stood at sink with FWW to complete grooming, mod I. Pt then ambulated to large shower room to work on tub transfer. Per pt, pt steps into tub at home and has a tub bench and grabbars available. Pt unable to lift foot into tub, stating that hers is lower. Pt educated on using tub transfer bench, pt stated that hers was too low to stand up from and that she has a bathe aide that will be with her each time she takes a bath/shower. Pt ambulated back to room and sat in recliner after therapy. Call light/phone in reach. All needs met in room. Functional [place] Measure 0=Not Assessed/NA 4=Minimal Assistance 1=Total Assistance 5=Supervision or Setup 2=Maximal Assistance 6=Modified [place] 3=Moderate Assistance 7=Complete IndependenceIRFPAI Quality Coding Scale 6 Independent with activity with or without an assistive device 5 Patient requires set up or clean up by helper. Patient completes activity by themselves 4 Supervision or touching assist (CGA). [place] provide cues , steadying assist 3 The helper provides less than half the effort to complete the activity 2 The helper provides more than half the effort to complete the activity 1 Dependent. The helper does all the effort to complete an activity 7 Patient refused to complete or attempt activity 9 The patient did not perform the activity before the current illness or injury 88 Not attempted due to Medical conditions or safety concerns Grooming (FIM): 6 Oral Hygiene (QC): 6 Bathing (FIM): 5 Shower/Bathe Self (QC): 5 Upper Body (FIM): 5 Upper Body Dressing (QC): 5 Lower Body Dressing (FIM): 5 Lower Body Dressing (QC): 4 On/Off Footwear (QC): 5 Toileting (FIM): 4 Toileting Hygiene (QC): 3 Toilet/Commode Transfer (FIM): 6 Toilet Transfer (QC): 6 Shower Transfer(FIM): 5 OT Short Term Goals Short Term Goals Time Frame: Mar 18, 2018 Eating(FIM): 5 Grooming(FIM): 5 Bathing(FIM): 5 Upper Body Dressing(FIM): 5 Lower Body Dressing(FIM): 5 Toileting(FIM): 5 Transfers (B,C,W/C) (FIM): 5 Toilet/Commode Transfer(FIM): 5 Shower Transfer(FIM): 5 Comprehension(FIM): 5 Expression(FIM): 3 Social Interaction(FIM): 7 Problem Solving(FIM): 4 Memory(FIM): 4 Additional Short Term Goals: 1-Demonstrate ADL Tasks, 2-Verbalize Understanding , 3-ImproveStrength/[place] 1=Demonstrate adherence to instructed precautions during ADL tasks. 2=Patient will verbalize/demonstrate understanding of assistive devices/ modifications for ADL. 3=Patient will improve strength/tolerance for activity to enable patient to perform ADL's. OT Long-Term Goals Long-Term Goals Time Frame: Mar 25, 2018 Eating (FIM): 6 Eating (QC): 6 Groomin Oral Hygiene (QC): 6 Bathing(FIM): 5 Shower/Bathe Self (QC): 5 Upper Body Dressing(FIM): 6 Upper Body Dressing (QC): 6 Lower Body Dressing(FIM): 6 Lower Body Dressing (QC): 6 On/Off Footwear (QC): 6 Toileting(FIM): 6 Toileting Hygiene (QC): 6 Transfers (B,C,W/C) (FIM): 6 Toilet/Commode Transfer(FIM): 6 Toilet/Commode Transfer (QC): 6 Shower Transfer(FIM): 5 Comprehension(FIM): 6 (MET) Expression (FIM): 5 (MET) Social Interaction(FIM): 7 (MET) Problem Solving(FIM): 4 (MET) Memory(FIM): 4 (MET) Additional Goals: 1-Demonstrate ADL Tasks, 2-Verbalize Understanding, 3- ImproveStrength/[place] 1=Demonstrate adherence to instructed precautions during ADL tasks. 2=Patient will verbalize/demonstrate understanding of assistive devices/ modifications for ADL. 3=Patient will improve strength/tolerance for activity to enable patient to perform ADL's. OT Education/Plan Discharge Recommendations Plan/Recommendations: Continue POC Treatment Plan/Plan of Care Patient would benefit from OT for education, treatment and training to promote independence in ADL's, mobility, safety and/or upper extremity function for ADL' s. Plan of Care: ADL Retraining, Functional Mobility, UE Funct Exercise/Act Treatment Duration: Mar 25, 2018 Frequency: At least 5 of 7 days/Wk (IRF) Estimated Hrs Per Day: 1.5 hours per day Rehab Potential: Good Time/GCodes Start Time: 07:00 Stop Time: 08:30 Total Time Billed (hr/min): 90 Billed Treatment Time 1 visit-ADL 6 (90 min) MICHAELA STUBBS Mar 22, 2018 08:50
[2018-03-22 09:27] LABS: BASOPHILS % (AUTO) 1 % (0-10); EOSINOPHILS # (AUTO) 0.4 10^3/uL (0.0-0.3); EOSINOPHILS % (AUTO) 7 % (0-10); HEMATOCRIT 33 % (35-52); HEMOGLOBIN 11.1 G/DL (11.5-16.0); LYMPHOCYTES % (AUTO) 18 % (12-44); MEAN CORPUSCULAR HEMOGLOBIN 30 PG (25-34); MEAN CORPUSCULAR HGB CONC 34 G/DL (32-36); MEAN CORPUSCULAR VOLUME 90 FL (80-99); MEAN PLATELET VOLUME 10.4 FL (7.4-10.4); MONOCYTES # (AUTO) 0.5 X 10^3 (0.0-1.0); MONOCYTES % (AUTO) 8 % (0-12); NEUTROPHILS # (AUTO) 3.6 X 10^3 (1.8-7.8); NEUTROPHILS % (AUTO) 66 % (42-75); PLATELET COUNT 107 10^3/uL (130-400); RED BLOOD COUNT 3.69 10^6/uL (4.35-5.85); RED CELL DISTRIBUTION WIDTH 14.7 % (10.0-14.5); WHITE BLOOD COUNT 5.5 10^3/uL (4.3-11.0)
--- NOTE | 2018-03-22 10:04 | Physical Therapy Daily Note ---
PT Daily Note-Current Subjective Pt sitting in recliner upon arrival. Pt agrees to PT. Pt reports a little fatigued from OT this morning but feels good. Pain Location: No Pain Reported Mental Status Patient Orientation: Person, Place, Time, Situation Transfers Functional [place] Measure 0=Not Assessed/NA 4=Minimal Assistance 1=Total Assistance 5=Supervision or Setup 2=Maximal Assistance 6=Modified [place] 3=Moderate Assistance 7=Complete IndependenceIRFPAI Quality Coding Scale 6 Independent with activity with or without an assistive device 5 Patient requires set up or clean up by helper. Patient completes activity by themselves 4 Supervision or touching assist (CGA). [place] provide cues , steadying assist 3 The helper provides less than half the effort to complete the activity 2 The helper provides more than half the effort to complete the activity 1 Dependent. The helper does all the effort to complete an activity 7 Patient refused to complete or attempt activity 9 The patient did not perform the activity before the current illness or injury 88 Not attempted due to Medical conditions or safety concerns Scootin Sit to/from Stand: 6 Sit to Stand (QC): 6 Car Transfer (QC): 4 Pt rocks to get up, takes a few times but is able to get up Mod I. Weight Bearing Right Lower Extremity: Right Full Weight Bearing Left Lower Extremity: Left Full Weight Bearing Gait Training Does the Patient Walk?: Yes Distance (FIM): 3=150 ft Distance: 250' Walk 10 feet (QC): 6 Walk 50 ft with 2 Turns(QC): 6 Walk 150 ft (QC): 6 Gait Level of Assist: 6 Gait Persons Needed: 1 Gait Assistive Device: FWW Pt's ricky is slow but steady, no LOB. Pt fatigues and needs rest break but quickly recovers. Wheelchair Training Does the Pt Use a Wheelchair?: No Stair Training Stair Training: Handrails/: 2 handrails #of Steps: 4 1 Step (curb) (QC): 5 4 Steps (QC): 5 Stairs: Pattern: Step to Level of Assist: 5 Exercises NuStep Minutes: 15 NuStep Workload: 4 Treatments Pt receives blood draw from Lab at beginning of tx. Pt has difficult blood draw. Pt transfers from recliner using FWW at Mod I. Pt ambulates in hallway using FWW at Mod I. Pt completes car transfer with slight assistance to lift BLE into car. Pt uses NuStep for 15m at WL 4. After short rest, pt completes 1 set of 4 steps using both handrails into step to pattern. Pt returns to room at end of tx to rest in recliner. Assessment Current Status: Good Progress Pt able to complete most tasks at Mod I. Pt still fatigues at times, needing short rest break. Pt needs assistance to lift BLE into car for transfer. 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 PT Short Term Goals Short Term Goals Time Frame: Mar 18, 2018 Transfers (B,C,W/C) (FIM): 5 Gait (FIM): 5 Distance (FIM): 3=150 ft Gait Assistive Device: FWW PT [place] Goals Shelter Goals PT [place] Goals Time Frame: Mar 26, 2018 Transfers (B,C,W/C) (FIM): 6 Sit to Lying (QC): 6 Lying-Sitting on Side/Bed(QC): 6 Sit to Stand (QC): 6 Rollin Roll Left to Right (QC): 6 Chair/[id number]-Wfexa Xfer(QC): 6 Car Transfer (QC): 5 Does the Patient Walk: Yes Gait (FIM): 6 Gait distance (FIM): 3=150 ft Walk 10 feet (QC): 6 Walk 10ft-Uneven Surface(QC): 6 Walk 50ft with 2 Turns (QC): 6 Walk 150 ft (QC): 6 Gait Level of Assist: 6 Gait Assistive Device: FWW Stairs (FIM): 2 # of Steps: 4 1 Step (curb) (QC): 5 4 Steps (QC): 4 12 Steps (QC): 88 Picking up an Object (QC): 88 PT Plan Problem List Problem List: Activity Tolerance, Functional Strength Treatment/Plan Treatment Plan: Continue Plan of Care Treatment Plan: Bed Mobility, Education, Functional Activity [place], Functional Strength, Group Therapy, Gait, Safety, Therapeutic Exercise, Transfers Treatment Duration: Mar 25, 2018 Frequency: At least 5 of 7 days/Wk (IRF) Estimated Hrs Per Day: 1.5 hours per day Patient and/or Family Agrees t: Yes Safety Risks/Education Patient Education: Gait Training, Transfer Techniques, Steps, Correct Positioning, Safety Issues Teaching Recipient: Patient Teaching Methods: Discussion Response to Teaching: Verbalize Understanding Time/GCodes Time In: 830 Time Out: 1000 Total Billed Treatment Time: 90 Total Billed Treatment 1, GT (30m), FA x2 (35m) & EX x2 (25m) G Codes Necessary: RONIT You ARBORICULTURE TEACHER Mar 22, 2018 10:04
--- NOTE | 2018-03-22 14:57 | Cardiology Progress Note ---
Cardiology SOAP Progress Note Subjective: No cardiac complaints. Objective: I&O/Vital Signs 03/22/18 03/22/18 05:43 08:37 Temp 97.8 Pulse 61 Resp 19 B/P (MAP) 145/59 (87) Pulse Ox 98 O2 Delivery Room Air Room Air 03/22/18 00:00 Intake Total 900 ml Balance 900 ml Weight (Pounds): 277 Weight (Ounces): 4.0 Weight (Calculated Kilograms): 125.202470 Device Insertion Site: without hematoma Swelling: without swelling Constitutional: AAO x 3, well-developed, well-nourished Respiratory: No accessory muscle use, No respiratory distress; lungs clear to auscultation Cardiovascular: regular rate-rhythm; No JVD; S1 and S2 Gastrointestional: No tender, No soft, No round, No distended, No pulsatile mass, No organomegaly, No guarding, No rebound, No tenderness, No hernia, No mass; audible bowel sounds; No abnormal bowel sounds, No abdominal bruits, No spleenomegaly, No other Extremities: No normal range of motion, No non-tender, No normal inspection, No pedal edema, No calf tenderness, No normal capillary refill, No pelvis stable , No calf tenderness, No inflammation, No pedal edema, No slow capillary refill , No swelling, No other, No abrasion, No clubbing, No cyanosis, No ecchymosis, No laceration; no lower extremity edema bilateral; No significant edema, No tenderness, No wound Neurologic/Psychiatric: alert, normal mood/affect, oriented x 3, grossly intact (speech appropriate today) Skin: No rash, No ulcerations Results/Procedures: Labs Laboratory Tests 03/21/18 16:12: Glucometer 161H 03/22/18 05:10: Glucometer 130H 03/22/18 09:18: White Blood Count 5.5, Red Blood Count 3.69L, Hemoglobin 11.1L, Hematocrit 33L, Mean Corpuscular Volume 90, Mean Corpuscular Hemoglobin 30, Mean Corpuscular Hemoglobin Concent 34, Red Cell Distribution Width 14.7H, Platelet Count 107L, Mean Platelet Volume 10.4, Neutrophils (%) (Auto) 66, Lymphocytes (%) (Auto) 18 , Monocytes (%) (Auto) 8, Eosinophils (%) (Auto) 7, Basophils (%) (Auto) 1, Neutrophils # (Auto) 3.6, Lymphocytes # (Auto) 1.0, Monocytes # (Auto) 0.5, Eosinophils # (Auto) 0.4H, Basophils # (Auto) 0.0 A/P: Assessment/Dx: Cryptogenic CVA with subsequent dysphasia, worse on 03-17-18, but has improved. s /p [employer]ot[employer] loop recorder for atrial fibrillation surveillance. Echo of 03/18/18: LVEF 55-60%, AoV sclerosis w/o stenosis, PASP 30 mmHg No angiographically significant coronary artery disease, normal global left ventricular systolic function with an ejection fraction of approximately 60 to 65%, elevated left ventricular end-diastolic pressure indicative of some degree of diastolic dysfunction of the left ventricle, and no significant mitral regurgitation per cardiac catheterization from 01/06/12 Maturity onset diabetes mellitus. Hypertension, currently controlled. Acute renal insufficiency - management per medical services Chronic bilateral leg swelling, likely related to venous insufficiency. Hyperlipidemia, chronically being treated with simvastatin and being managed by Dr. Cortez. Chronic mild anemia and mild thrombocytopenia being managed by Dr. Cortez. Chronic back pain and degenerative joint disease. Pulmonary artery systolic pressure is estimated to be approximately 40 mmHg per echocardiogram from 08/18/2013, which is unchanged from 2012. Elevated BMI of approx 45 Plan: Patient has cryptogenic stroke with no significant disease in the carotid arteries. Echocardiogram does not show any significant abnormality. Telemetry for a few days did not show paroxysmal atrial fibrillation. Implantable loop recorder done recently. site looks good with mild blood tinged discharge. will recommend changing dressing today. We will continue aspirin and Plavix for now. If any evidence of atrial fibrillation is found on the loop recorder, she will be converted to oral anti- coagulation. Continue inpatient rehabilitation. Acute on chronic renal insufficiency. Nephrology consultation is recommended as an outpatient. Thank you for your consultation. Please call me if you have any questions. Elgin Colvin MD, FACP, FACC, FSCAI, FHRS, CCDS Interventional Cardiology Cardiac Electrophysiology Vascular Medicine and Endovascular Interventions [place] COLVIN MD Mar 22, 2018 2:57 pm
[2018-03-22] MEDS: metFORMIN 500 MG (GLUCOPHAGE) TAB PO SCH (17:08)
[2018-03-22 17:41] VITALS: BP 177/67
--- NOTE | 2018-03-22 18:21 | PM & R (SOAP) Progress Note ---
Subjective This was a face to face visit with the patient. Date Seen by Provider: Mar 22, 2018 Time Seen by Provider: 17:55 Subjective/Events-last exam Patient was seen in her room this evening Appreciate DR brito note and orders.Patient Modified Independent for gait with WW Patient with thrombocytopenia Hematology consulted.Neurologically doing much better Objective Physician Exam Last Set of Vital Signs Vital Signs Date Time Temp Pulse Resp B/P (MAP) Pulse Ox O2 Delivery O2 Flow Rate FiO2 03/22/18 17:41 97.6 62 18 177/67 (103) 100 Room Air Capillary Refill : Less Than 3 Seconds I&O Intake and Output 03/22/18 00:00 Intake Total 1150 ml Balance 1150 ml Intake Oral 1150 ml # Voids 8 General: Alert, Oriented X3, Cooperative, No Acute Distress HEENT: Atraumatic, PERRLA, EOMI, Mucous Memb Moist/[place] Neck: Supple, No JVD Lungs: Clear to Auscultation Heart: Regular Rate Abdomen: Normal Bowel Sounds, Soft, No Tenderness, Other Extremities: Other Neuro: Other Results Lab Data Laboratory Tests 03/20/18 05:22: White Blood Count 3.8L, Red Blood Count 3.35L, Hemoglobin 10.1L, Hematocrit 30L , Mean Corpuscular Volume 90, Mean Corpuscular Hemoglobin 30, Mean Corpuscular Hemoglobin Concent 33, Red Cell Distribution Width 14.4, Platelet Count 92L, Mean Platelet Volume 11.0H, Neutrophils (%) (Auto) 54, Lymphocytes (%) (Auto) 25 , Monocytes (%) (Auto) 10, Eosinophils (%) (Auto) 10, Basophils (%) (Auto) 1, Neutrophils # (Auto) 2.1, Lymphocytes # (Auto) 1.0, Monocytes # (Auto) 0.4, Eosinophils # (Auto) 0.4H, Basophils # (Auto) 0.0 03/20/18 05:45: Glucometer 114H 03/20/18 15:50: Glucometer 138H 03/21/18 05:50: Glucometer 149H 03/21/18 16:12: Glucometer 161H 03/22/18 05:10: Glucometer 130H 03/22/18 09:18: White Blood Count 5.5, Red Blood Count 3.69L, Hemoglobin 11.1L, Hematocrit 33L, Mean Corpuscular Volume 90, Mean Corpuscular Hemoglobin 30, Mean Corpuscular Hemoglobin Concent 34, Red Cell Distribution Width 14.7H, Platelet Count 107L, Mean Platelet Volume 10.4, Neutrophils (%) (Auto) 66, Lymphocytes (%) (Auto) 18 , Monocytes (%) (Auto) 8, Eosinophils (%) (Auto) 7, Basophils (%) (Auto) 1, Neutrophils # (Auto) 3.6, Lymphocytes # (Auto) 1.0, Monocytes # (Auto) 0.5, Eosinophils # (Auto) 0.4H, Basophils # (Auto) 0.0 03/22/18 15:45: Glucometer 193H Assessment/Plan Assessment and Plan 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 improving Thromcytopenia Hem to see TIA on plavix Anemia Change in mental status improved with rehydration with IV fluids ST has signed off HTN better controlled DM2 controlled Cholelithiasis asymptomatic at this point Hx of DVT s/p sabina filter placement S/P left shoulder surgery Plan Continue Pt/OT Hem consult Team Conference 03-24-18 (1) CVA (cerebral vascular accident) Qualifiers: Qualified Codes: I63.9 - Cerebral infarction, unspecified Status: Acute Co-Morbidities that are continuing to impact the rehab process: (include details ) HECTOR BRITT MD Mar 22, 2018 18:21
[2018-03-22 18:34] VITALS: BP 157/63
[2018-03-22] MEDS: ATORVASTATIN 40 MG (LIPITOR) TABLET PO SCH (20:38)
[2018-03-22] MEDS: POLYETHYLENE GLYCOL 17 GM (MIRALAX) PACK PO SCH (20:39)
[2018-03-23 05:48] VITALS: BP 151/64
[2018-03-23] MEDS: FAMOTIDINE 20 MG (PEPCID) TABLET PO SCH (06:03)
[2018-03-23] MEDS: metFORMIN 500 MG (GLUCOPHAGE) TAB PO SCH ×2 (06:03→16:07)
[2018-03-23] MEDS: PANTOPRAZOLE 40 MG (PROTONIX) TAB PO SCH (06:03)
[2018-03-23 07:33] LABS: HEMOGLOBIN 11.7 G/DL (11.5-16.0); MEAN PLATELET VOLUME 10.9 FL (7.4-10.4); RED BLOOD COUNT 3.89 10^6/uL (4.35-5.85); RED CELL DISTRIBUTION WIDTH 14.8 % (10.0-14.5); WHITE BLOOD COUNT 5.7 10^3/uL (4.3-11.0)
[2018-03-23 07:55] LABS: BUN/CREATININE RATIO 22; CARBON DIOXIDE 23 MMOL/L (21-32); CHLORIDE 110 MMOL/L (98-107); CREATININE SERUM 0.82 MG/DL (0.60-1.30); GFR ESTIMATED > 60; GLUCOSE 139 MG/DL (70-105); POTASSIUM 4.3 MMOL/L (3.6-5.0); SODIUM 142 MMOL/L (135-145)
[2018-03-23] MEDS: ASPIRIN E.C. 81 MG (ECOTRIN) TAB PO SCH (08:06)
[2018-03-23] MEDS: TELMISARTAN 40 MG (MICARDIS) TAB PO SCH (08:06)
[2018-03-23] MEDS: CLOPIDOGREL 75 MG (PLAVIX) TABLET PO SCH (08:06)
[2018-03-23] MEDS: SENNA W/DOCUSATE (SENOKOT S) TABLET PO SCH ×2 (08:06→20:51)
[2018-03-23] MEDS: lisINopril 10 MG (PRINIVIL) TABLET PO SCH (08:08)
--- NOTE | 2018-03-23 08:15 | PM & R (SOAP) Progress Note ---
Subjective This was a face to face visit with the patient. Date Seen by Provider: Mar 23, 2018 Time Seen by Provider: 07:40 Subjective/Events-last exam Patient was seen in her room this AM Patient Mod Independent for transfers Objective Physician Exam Last Set of Vital Signs Vital Signs Date Time Temp Pulse Resp B/P (MAP) Pulse Ox O2 Delivery O2 Flow Rate FiO2 03/23/18 05:48 97.5 60 19 151/64 (93) 96 Room Air Capillary Refill : Less Than 3 Seconds I&O Intake and Output 03/23/18 00:00 Intake Total 2092 ml Balance 2092 ml Intake Oral 2092 ml # Voids 6 # Bowel Movements 1 General: Alert, Oriented X3, Cooperative, No Acute Distress HEENT: Atraumatic, PERRLA, EOMI, Mucous Memb Moist/[place] Neck: Supple, No JVD Lungs: Clear to Auscultation Heart: Regular Rate Abdomen: Normal Bowel Sounds, Soft, No Tenderness, Other Extremities: Other Neuro: Other Results Lab Data Laboratory Tests 03/20/18 15:50: Glucometer 138H 03/21/18 05:50: Glucometer 149H 03/21/18 16:12: Glucometer 161H 03/22/18 05:10: Glucometer 130H 03/22/18 09:18: White Blood Count 5.5, Red Blood Count 3.69L, Hemoglobin 11.1L, Hematocrit 33L, Mean Corpuscular Volume 90, Mean Corpuscular Hemoglobin 30, Mean Corpuscular Hemoglobin Concent 34, Red Cell Distribution Width 14.7H, Platelet Count 107L, Mean Platelet Volume 10.4, Neutrophils (%) (Auto) 66, Lymphocytes (%) (Auto) 18 , Monocytes (%) (Auto) 8, Eosinophils (%) (Auto) 7, Basophils (%) (Auto) 1, Neutrophils # (Auto) 3.6, Lymphocytes # (Auto) 1.0, Monocytes # (Auto) 0.5, Eosinophils # (Auto) 0.4H, Basophils # (Auto) 0.0 03/22/18 15:45: Glucometer 193H 03/23/18 05:36: Glucometer 130H 03/23/18 07:13: White Blood Count 5.7, Red Blood Count 3.89L, Hemoglobin 11.7, Hematocrit 35, Mean Corpuscular Volume 90, Mean Corpuscular Hemoglobin 30, Mean Corpuscular Hemoglobin Concent 34, Red Cell Distribution Width 14.8H, Platelet Count 108L, Mean Platelet Volume 10.9H, Sodium Level 142, Potassium Level 4.3, Chloride Level 110H, Carbon Dioxide Level 23, Anion Gap 9, Blood Urea Nitrogen 18, Creatinine 0.82, Estimat Glomerular Filtration Rate > 60, BUN/Creatinine Ratio 22, Glucose Level 139H, Calcium Level 9.0 Assessment/Plan Assessment and Plan 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 improving Thrombocytopenia DR ching to see TIA on plavix Anemia Change in mental status due to dehytration improved HTN controlled DM2 controlled Cholelithiasis asymptomatic at this point HC of DVT s/p greenfiled filter placement S/P left shoulder surgery Plan Continue PT/OT ST has signed off Team Conference tomorrow F/U with DR mora PCP (1) CVA (cerebral vascular accident) Qualifiers: Qualified Codes: I63.9 - Cerebral infarction, unspecified Status: Acute Co-Morbidities that are continuing to impact the rehab process: (include details ) HECTOR BRITT MD Mar 23, 2018 08:14
--- NOTE | 2018-03-23 08:29 | Progress Note (SOAP) ---
Subjective Time Seen by Provider: 08:25 Subjective/Events-last exam Patient feeling better today. Patient the same weight as on admission. Kidney function is good. Patient speaking better. Patient states she's getting around better. Objective Exam Vital Signs Date Time Temp Pulse Resp B/P (MAP) Pulse Ox O2 Delivery O2 Flow Rate FiO2 03/23/18 05:48 97.5 60 19 151/64 (93) 96 Room Air 03/22/18 21:00 Room Air 03/22/18 18:34 56 157/63 (94) 98 03/22/18 17:41 97.6 62 18 177/67 (103) 100 Room Air 03/22/18 08:37 Room Air I & O 03/23/18 07:00 Intake Total 1302 ml Balance 1302 ml Capillary Refill : Less Than 3 Seconds General Appearance: No Apparent Distress, WD/WN HEENT: Normal ENT Inspection Neck: Full Range of Motion, Non Tender Respiratory: Lungs Clear, No Accessory Muscle Use, No Respiratory Distress Cardiovascular: Regular Rate, Rhythm, No Murmur Results Lab Laboratory Tests 03/22/18 09:18 03/23/18 07:13 Laboratory Tests 03/22/18 09:18: White Blood Count 5.5, Red Blood Count 3.69L, Hemoglobin 11.1L, Hematocrit 33L, Mean Corpuscular Volume 90, Mean Corpuscular Hemoglobin 30, Mean Corpuscular Hemoglobin Concent 34, Red Cell Distribution Width 14.7H, Platelet Count 107L, Mean Platelet Volume 10.4, Neutrophils (%) (Auto) 66, Lymphocytes (%) (Auto) 18 , Monocytes (%) (Auto) 8, Eosinophils (%) (Auto) 7, Basophils (%) (Auto) 1, Neutrophils # (Auto) 3.6, Lymphocytes # (Auto) 1.0, Monocytes # (Auto) 0.5, Eosinophils # (Auto) 0.4H, Basophils # (Auto) 0.0 03/22/18 15:45: Glucometer 193H 03/23/18 05:36: Glucometer 130H 03/23/18 07:13: White Blood Count 5.7, Red Blood Count 3.89L, Hemoglobin 11.7, Hematocrit 35, Mean Corpuscular Volume 90, Mean Corpuscular Hemoglobin 30, Mean Corpuscular Hemoglobin Concent 34, Red Cell Distribution Width 14.8H, Platelet Count 108L, Mean Platelet Volume 10.9H, Sodium Level 142, Potassium Level 4.3, Chloride Level 110H, Carbon Dioxide Level 23, Anion Gap 9, Blood Urea Nitrogen 18, Creatinine 0.82, Estimat Glomerular Filtration Rate > 60, BUN/Creatinine Ratio 22, Glucose Level 139H, Calcium Level 9.0 Assessment/Plan Assessment/Plan Assess & Plan/Chief Complaint Sheet CVA history. Diabetes. Dysphagia. Dysarthria. Diabetes. Obesity. Hypertension. . 03/15/18. Acute CVA. Diabetes. Dysphagia better. Dysarthria better. Diabetes under good control. Obesity. HYPERTENSION. Patient feel she is improving. . 03/17/17. Patient having symptoms a stroke. Patient not talking well. Patient has renal insufficiency today. Patient vomited last night. Patient had abdominal pain last night. Patient able to move all extremities.. . 03/18/17. Patient doing much better today. Patient talking better. Patient's blood pressure better. Patient not vomiting. CVA. Dysarthria. Dysphagia. Diabetes. Hypertension history. Acute renal insufficiency monitoring. . 03/19/18. Patient doing better today. Patient talking better. Lab pressure slightly elevated. Speech improved. Patient not having any problems. GFR normal now. . . CVA. Diabetes. Thrombocytopenia. Dysphagia. Dysarthria. Obesity. Patient doing much better in speaking better and getting around better. . 03/23/18. CVA acute. Diabetes. Thrombocytopenia. Dysphagia better. Dysarthria better. Obesity. Patient doing much better and getting around. Renal insufficiency. Resolved Clinical Quality Measures DVT/VTE Risk/Contraindication: Risk Factor Score Per Nursin RFS Level Per Nursing on Admit: 4+=Very High ADEN LEE DO Mar 23, 2018 08:29
[2018-03-23] MEDS ORDERED: FUROSEMIDE 40 MG (LASIX) TAB PO ONE (09:00)
--- NOTE | 2018-03-23 09:54 | Physical Therapy Daily Note ---
PT Daily Note-Current Subjective Pt. smiles and agrees to Rx. States she does not have steps at home and never sleeps in a bed so all this has certainly been a challenge for her. Pain Numeric Pain Scale: 3 Location: Medial Location Body Site: Back Pain Description: Ache Comment: with attempts at sup to sit and sit to sup pt. c/o back pain. States this s Mental Status Patient Orientation: Normal For Age Transfers Functional [place] Measure 0=Not Assessed/NA 4=Minimal Assistance 1=Total Assistance 5=Supervision or Setup 2=Maximal Assistance 6=Modified [place] 3=Moderate Assistance 7=Complete IndependenceIRFPAI Quality Coding Scale 6 Independent with activity with or without an assistive device 5 Patient requires set up or clean up by helper. Patient completes activity by themselves 4 Supervision or touching assist (CGA). [place] provide cues , steadying assist 3 The helper provides less than half the effort to complete the activity 2 The helper provides more than half the effort to complete the activity 1 Dependent. The helper does all the effort to complete an activity 7 Patient refused to complete or attempt activity 9 The patient did not perform the activity before the current illness or injury 88 Not attempted due to Medical conditions or safety concerns Transfers (B, C, W/C) (FIM): 6 Scootin Rollin Roll Left to Right (QC): 5 Supine to/from Sit: 6 Sit to/from Stand: 6 Sit to Lying (QC): 5 Sit to Stand (QC): 5 Chair/Huk-jm-Ukpwa Xfer(QC): 5 Bed to/from Chair: 6 Car Transfer (QC): 5 sit to sup requires great effort for her as well as car TRF. Weight Bearing Right Lower Extremity: Right Full Weight Bearing Left Lower Extremity: Left Full Weight Bearing Gait Training Does the Patient Walk?: Yes Gait (FIM): 6 Distance (FIM): 3=150 ft (175x2) Walk 10 feet (QC): 5 Walk 50 ft with 2 Turns(QC): 5 Walk 150 ft (QC): 5 Walking 10ft/uneven surface-QC: 5 Gait Level of Assist: 6 Gait Persons Needed: 0 Gait Assistive Device: FWW slow, flexed at trunk, no LOB Stair Training Stair Training: Handrails/: 2 handrails Stairs (FIM): 5 #of Steps: 4 1 Step (curb) (QC): 5 4 Steps (QC): 5 Stairs: Pattern: Step to Level of Assist: 6 Balance Special Test Comments unsafe to trial picking up object Exercises Supine Ex: Ankle pumps, Quad Set, Rolling, Heel Slides, Short Arc Quads, Scooting, Straight leg raise (x5ea), Hip abd/add Supine Reps: 15 Seated Therapy Exercises: Ankle pumps, Sit to stand, Long arc quads, Hip flexion, Hip abd/add Seated Reps: 15 Assessment Current Status: Good Progress PT Short Term Goals Short Term Goals Time Frame: Mar 18, 2018 Transfers (B,C,W/C) (FIM): 5 Gait (FIM): 5 Distance (FIM): 3=150 ft Gait Assistive Device: FWW PT Customer Engagement Specialist Goals [facility] Goals PT Customer Engagement Specialist Goals Time Frame: Mar 26, 2018 Transfers (B,C,W/C) (FIM): 6 Sit to Lying (QC): 6 Lying-Sitting on Side/Bed(QC): 6 Sit to Stand (QC): 6 Rollin Roll Left to Right (QC): 6 Chair/Vmi-nd-Dtlit Xfer(QC): 6 Car Transfer (QC): 5 Does the Patient Walk: Yes Gait (FIM): 6 Gait distance (FIM): 3=150 ft Walk 10 feet (QC): 6 Walk 10ft-Uneven Surface(QC): 6 Walk 50ft with 2 Turns (QC): 6 Walk 150 ft (QC): 6 Gait Level of Assist: 6 Gait Assistive Device: FWW Stairs (FIM): 2 # of Steps: 4 1 Step (curb) (QC): 5 4 Steps (QC): 4 12 Steps (QC): 88 Picking up an Object (QC): 88 PT Plan Treatment/Plan Treatment Plan: Continue Plan of Care Treatment Plan: Bed Mobility, Education, Functional Activity [place], Functional Strength, Group Therapy, Gait, Safety, Therapeutic Exercise, Transfers Treatment Duration: Mar 25, 2018 Frequency: At least 5 of 7 days/Wk (IRF) Estimated Hrs Per Day: 1.5 hours per day Patient and/or Family Agrees t: Yes Safety Risks/Education Patient Education: Gait Training, Transfer Techniques, Steps, Correct Positioning, Disease Process, Safety Issues Teaching Recipient: Patient Teaching Methods: Demonstration, Discussion Response to Teaching: Verbalize Understanding, Return Demonstration, Reinforcement Needed Time/GCodes Time In: 900 Time Out: 1000 Total Billed Treatment Time: 60 Total Billed Treatment 1,FA40m,GT20m G Codes Necessary: CHAR Traylor JBOSS ARCHITECT Mar 23, 2018 09:54
--- NOTE | 2018-03-23 11:02 | Occupational Ther Daily Note ---
OT Current Status-Daily Note Subjective Pt seen in room, up in recliner, agreeable to OT. No pain mentioned. Appearance Alert, cooperative. Believes that she is at her baseline. Mental Status/Objective Functional [place] Measure 0=Not Assessed/NA 4=Minimal Assistance 1=Total Assistance 5=Supervision or Setup 2=Maximal Assistance 6=Modified [place] 3=Moderate Assistance 7=Complete [place] ADL-Treatment Pt able to get up out of recliner but had to rock a few times to get up. Pt walked to bathroom to toilet, returned to recliner for brief recovery break. Retrieved clean clothes from closet and walked to bathroom with FWW. Got in/out of shower with SBA, grab bars, shower bench, FWW. Undressed in shower and dressed on BSC over toilet. Washed and dried all parts except back, turning water on/off and retrieving towel. Stood at sink to brush teeth and comb hair ( washed face and hands ini shower). Pt reported no problems with opening packages , cutting up food, feeding herself, getting a drink. Functional [place] Measure 0=Not Assessed/NA 4=Minimal Assistance 1=Total Assistance 5=Supervision or Setup 2=Maximal Assistance 6=Modified [place] 3=Moderate Assistance 7=Complete IndependenceIRFPAI Quality Coding Scale 6 Independent with activity with or without an assistive device 5 Patient requires set up or clean up by helper. Patient completes activity by themselves 4 Supervision or touching assist (CGA). [place] provide cues , steadying assist 3 The helper provides less than half the effort to complete the activity 2 The helper provides more than half the effort to complete the activity 1 Dependent. The helper does all the effort to complete an activity 7 Patient refused to complete or attempt activity 9 The patient did not perform the activity before the current illness or injury 88 Not attempted due to Medical conditions or safety concerns Eating (FIM): 7 (Able to topen packages, cut up food, feed herself, get a drink. No dentures. ) Eating (QC): 6 Grooming (FIM): 7 (Stood at sink to brush teeth, comb hair. walker placed to the side like she does in her apartment. ) Oral Hygiene (QC): 6 Bathing (FIM): 6 (Turned water on and off and retrieved towels from bar. Washed and dried all aprts except back. Shower bench, grab bars, hand held shower, long handled sponge. ) Shower/Bathe Self (QC): 6 Upper Body (FIM): 6 (Retrieved clean clothing from closet, using FWW to transport items. Doffed and donned shirt without help. Does not wear bra) Upper Body Dressing (QC): 6 Lower Body Dressing (FIM): 6 (Retrieved clean clothes from closet, using FWW for balance and to transport items. Doffed and donned clothing without help, standing to step out of shoes with no LOB. FWW for balance when standing. Wears slip on shoes which she can get on herself) Lower Body Dressing (QC): 6 On/Off Footwear (QC): 6 Toileting (FIM): 6 (Managed clothing and hygiene, BSC over toilet. FWW and grab bar for support when pulling pants up/down. Has toilet tongs but did not need to use them today. ) Toileting Hygiene (QC): 6 Toilet/Commode Transfer (FIM): 6 (On/off BSC over toilet using grab bar and FWW. Rocks a few times to get up) Toilet Transfer (QC): 6 Shower Transfer(FIM): 5 (SBA getting in and out of shower, shower bench, grab bar, FWW) Other Treatment Pt returned to recliner and was taught bilat UE exercises with red theraband, to strengthen arms to help with transfers and standing for ADLs. Written instruction provided for 5 different exercise, with pt return demo, completing 10-12 reps each exercise. Pt left up in recliner, all needs met. Education OT Patient Education: Exercise program, Progress toward Goal/Update tx plan, Purpose of tx/functional activities, Transfer techniques Teaching Recipient: Patient Teaching Methods: Discussion Response to Teaching: Verbalize Understanding, Return Demonstration OT Short Term Goals Short Term Goals Time Frame: Mar 18, 2018 Eating(FIM): 5 Grooming(FIM): 5 Bathing(FIM): 5 Upper Body Dressing(FIM): 5 Lower Body Dressing(FIM): 5 Toileting(FIM): 5 Transfers (B,C,W/C) (FIM): 5 Toilet/Commode Transfer(FIM): 5 Shower Transfer(FIM): 5 Comprehension(FIM): 5 Expression(FIM): 3 Social Interaction(FIM): 7 Problem Solving(FIM): 4 Memory(FIM): 4 Additional Short Term Goals: 1-Demonstrate ADL Tasks, 2-Verbalize Understanding , 3-ImproveStrength/Mary Ann 1=Demonstrate adherence to instructed precautions during ADL tasks. 2=Patient will verbalize/demonstrate understanding of assistive devices/ modifications for ADL. 3=Patient will improve strength/tolerance for activity to enable patient to perform ADL's. OT Residential Goals Glass Installer Goals Time Frame: Mar 25, 2018 Eating (FIM): 6 Eating (QC): 6 Groomin Oral Hygiene (QC): 6 Bathing(FIM): 5 Shower/Bathe Self (QC): 5 Upper Body Dressing(FIM): 6 Upper Body Dressing (QC): 6 Lower Body Dressing(FIM): 6 Lower Body Dressing (QC): 6 On/Off Footwear (QC): 6 Toileting(FIM): 6 Toileting Hygiene (QC): 6 Transfers (B,C,W/C) (FIM): 6 Toilet/Commode Transfer(FIM): 6 Toilet/Commode Transfer (QC): 6 Shower Transfer(FIM): 5 Comprehension(FIM): 6 (MET) Expression (FIM): 5 (MET) Social Interaction(FIM): 7 (MET) Problem Solving(FIM): 4 (MET) Memory(FIM): 4 (MET) Additional Goals: 1-Demonstrate ADL Tasks, 2-Verbalize Understanding, 3- ImproveStrength/Mary Ann 1=Demonstrate adherence to instructed precautions during ADL tasks. 2=Patient will verbalize/demonstrate understanding of assistive devices/ modifications for ADL. 3=Patient will improve strength/tolerance for activity to enable patient to perform ADL's. OT Education/Plan Discharge Recommendations Plan/Recommendations: Continue POC Treatment Plan/Plan of Care Patient would benefit from OT for education, treatment and training to promote independence in ADL's, mobility, safety and/or upper extremity function for ADL' s. Plan of Care: ADL Retraining, Functional Mobility, UE Funct Exercise/Act Treatment Duration: Mar 25, 2018 Frequency: At least 5 of 7 days/Wk (IRF) Estimated Hrs Per Day: 1.5 hours per day Rehab Potential: Good Time/GCodes Start Time: 10:00 Stop Time: 11:00 Total Time Billed (hr/min): 60 Billed Treatment Time visit, 45 minutes ADL, 15 minutes exercise JANNET COREY OT Mar 23, 2018 11:02
--- NOTE | 2018-03-23 14:11 | Physical Therapy Daily Note ---
PT Daily Note-Current Subjective Agrees to Rx. Pain Numeric Pain Scale: 0-No Pain Mental Status Patient Orientation: Normal For Age Transfers Functional [place] Measure 0=Not Assessed/NA 4=Minimal Assistance 1=Total Assistance 5=Supervision or Setup 2=Maximal Assistance 6=Modified [place] 3=Moderate Assistance 7=Complete IndependenceIRFPAI Quality Coding Scale 6 Independent with activity with or without an assistive device 5 Patient requires set up or clean up by helper. Patient completes activity by themselves 4 Supervision or touching assist (CGA). [place] provide cues , steadying assist 3 The helper provides less than half the effort to complete the activity 2 The helper provides more than half the effort to complete the activity 1 Dependent. The helper does all the effort to complete an activity 7 Patient refused to complete or attempt activity 9 The patient did not perform the activity before the current illness or injury 88 Not attempted due to Medical conditions or safety concerns All TRFs SBA to Mod I for sit to stand etc Weight Bearing Right Lower Extremity: Right Full Weight Bearing Left Lower Extremity: Left Full Weight Bearing Gait Training Gait Assistive Device: FWW 150ft, FWW SBA no LOB Exercises Standing: Hip Abduction, Hamstring curls, Heel/toe raises, Marching, Mini squats, Sit to Stand Standing Reps: 15 Assessment Current Status: Good Progress PT Short Term Goals Short Term Goals Time Frame: Mar 18, 2018 Transfers (B,C,W/C) (FIM): 5 Gait (FIM): 5 Distance (FIM): 3=150 ft Gait Assistive Device: FWW PT Skilled Nursing Goals Skilled Nursing Goals PT Skilled Nursing Goals Time Frame: Mar 26, 2018 Transfers (B,C,W/C) (FIM): 6 Sit to Lying (QC): 6 Lying-Sitting on Side/Bed(QC): 6 Sit to Stand (QC): 6 Rollin Roll Left to Right (QC): 6 Chair/Mri-dg-Lwnyv Xfer(QC): 6 Car Transfer (QC): 5 Does the Patient Walk: Yes Gait (FIM): 6 Gait distance (FIM): 3=150 ft Walk 10 feet (QC): 6 Walk 10ft-Uneven Surface(QC): 6 Walk 50ft with 2 Turns (QC): 6 Walk 150 ft (QC): 6 Gait Level of Assist: 6 Gait Assistive Device: FWW Stairs (FIM): 2 # of Steps: 4 1 Step (curb) (QC): 5 4 Steps (QC): 4 12 Steps (QC): 88 Picking up an Object (QC): 88 PT Plan Treatment/Plan Treatment Plan: Continue Plan of Care Treatment Plan: Bed Mobility, Education, Functional Activity Mary Ann, Functional Strength, Group Therapy, Gait, Safety, Therapeutic Exercise, Transfers Treatment Duration: Mar 25, 2018 Frequency: At least 5 of 7 days/Wk (IRF) Estimated Hrs Per Day: 1.5 hours per day Patient and/or Family Agrees t: Yes Safety Risks/Education Patient Education: Gait Training, Transfer Techniques Teaching Recipient: Patient Teaching Methods: Demonstration, Discussion Response to Teaching: Verbalize Understanding, Return Demonstration, Reinforcement Needed Time/GCodes Time In: 1300 Time Out: 1330 Total Billed Treatment Time: 30 Total Billed Treatment 1,EX15m,GT15m G Codes Necessary: CHAR Traylor ACCOUNTING TEACHER Mar 23, 2018 14:11
--- NOTE | 2018-03-23 14:16 | Occupational Ther Daily Note ---
OT Current Status-Daily Note Subjective Pt seen in gym, after PT. No pain mentioned. Appearance Alert, cooperative Mental Status/Objective Functional [place] Measure 0=Not Assessed/NA 4=Minimal Assistance 1=Total Assistance 5=Supervision or Setup 2=Maximal Assistance 6=Modified [place] 3=Moderate Assistance 7=Complete [place] Attachments: Saline Lock (mid line) ADL-Treatment Functional [place] Measure 0=Not Assessed/NA 4=Minimal Assistance 1=Total Assistance 5=Supervision or Setup 2=Maximal Assistance 6=Modified [place] 3=Moderate Assistance 7=Complete IndependenceIRFPAI Quality Coding Scale 6 Independent with activity with or without an assistive device 5 Patient requires set up or clean up by helper. Patient completes activity by themselves 4 Supervision or touching assist (CGA). [place] provide cues , steadying assist 3 The helper provides less than half the effort to complete the activity 2 The helper provides more than half the effort to complete the activity 1 Dependent. The helper does all the effort to complete an activity 7 Patient refused to complete or attempt activity 9 The patient did not perform the activity before the current illness or injury 88 Not attempted due to Medical conditions or safety concerns Grooming (FIM): 7 (wash hands at sink) Toileting (FIM): 6 Toilet/Commode Transfer (FIM): 6 Other Treatment Pt completed 15 minutes bilat UE exercise with arm bike set at 20W resistance ( increased resistance), to strengthen arms to help with transfers. She took a couple of brief recovery periods due to fatigue. She walked back to her room, slowly, with FWW and completed toileting with mod I. Pt returned to recliner and left up in chair, all needs met. Education OT Patient Education: Exercise program, Progress toward Goal/Update tx plan, Purpose of tx/functional activities Teaching Recipient: Patient Teaching Methods: Discussion Response to Teaching: Verbalize Understanding OT Short Term Goals Short Term Goals Time Frame: Mar 18, 2018 Eating(FIM): 5 Grooming(FIM): 5 Bathing(FIM): 5 Upper Body Dressing(FIM): 5 Lower Body Dressing(FIM): 5 Toileting(FIM): 5 Transfers (B,C,W/C) (FIM): 5 Toilet/Commode Transfer(FIM): 5 Shower Transfer(FIM): 5 Comprehension(FIM): 5 Expression(FIM): 3 Social Interaction(FIM): 7 Problem Solving(FIM): 4 Memory(FIM): 4 Additional Short Term Goals: 1-Demonstrate ADL Tasks, 2-Verbalize Understanding , 3-ImproveStrength/[place] 1=Demonstrate adherence to instructed precautions during ADL tasks. 2=Patient will verbalize/demonstrate understanding of assistive devices/ modifications for ADL. 3=Patient will improve strength/tolerance for activity to enable patient to perform ADL's. OT Range Feeder Goals Fdc Goals Time Frame: Mar 25, 2018 Eating (FIM): 6 (met 03-23-18) Eating (QC): 6 (met 03-23-) Groomin (met 03-23-) Oral Hygiene (QC): 6 (met 03-23-) Bathing(FIM): 5 (met 03-23-18) Shower/Bathe Self (QC): 5 (met 03-23-18) Upper Body Dressing(FIM): 6 (met 03-23-18) Upper Body Dressing (QC): 6 (met 03-23-18) Lower Body Dressing(FIM): 6 (met 03-23-18) Lower Body Dressing (QC): 6 (met 03-23-18) On/Off Footwear (QC): 6 (met 03-23-18) Toileting(FIM): 6 (met 03-23-18) Toileting Hygiene (QC): 6 (met 03-23-18) Transfers (B,C,W/C) (FIM): 6 Toilet/Commode Transfer(FIM): 6 (met 03-23-18) Toilet/Commode Transfer (QC): 6 (met 03-23-18) Shower Transfer(FIM): 5 (met 03-23-18) Comprehension(FIM): 6 (MET) Expression (FIM): 5 (MET) Social Interaction(FIM): 7 (MET) Problem Solving(FIM): 4 (MET) Memory(FIM): 4 (MET) Additional Goals: 1-Demonstrate ADL Tasks, 2-Verbalize Understanding, 3- ImproveStrength/[place] 1=Demonstrate adherence to instructed precautions during ADL tasks. 2=Patient will verbalize/demonstrate understanding of assistive devices/ modifications for ADL. 3=Patient will improve strength/tolerance for activity to enable patient to perform ADL's. OT Education/Plan Discharge Recommendations Plan/Recommendations: Continue POC (anticipate DC to home tomorrow) Treatment Plan/Plan of Care Patient would benefit from OT for education, treatment and training to promote independence in ADL's, mobility, safety and/or upper extremity function for ADL' s. Plan of Care: ADL Retraining, Functional Mobility, UE Funct Exercise/Act Treatment Duration: Mar 25, 2018 Frequency: At least 5 of 7 days/Wk (IRF) Estimated Hrs Per Day: 1.5 hours per day Rehab Potential: Good Time/GCodes Start Time: 13:30 Stop Time: 14:00 Total Time Billed (hr/min): 30 Billed Treatment Time visit, 25 minutes exercise, 5 minutes ADL JANNET COREY OT Mar 23, 2018 14:16
--- NOTE | 2018-03-23 15:18 | D/C HH Face to Face Order ---
D/C Face to Face Orders Instructions for Patient Patient Instructions/FollowUp: Dr. Dana Pozo-04/05 at 1115a Physician to follow Patient: Dr. Cortez Discharge Diet for Home: other diet (CHO 60grams) Patient Data-Allergies,Ht & Wt Patient Allergies: Coded Allergies: Penicillins (Unverified Allergy, Unknown, 12/21/06) codeine (Unverified Allergy, Unknown, 12/21/06) aspirin (Verified Adverse Reaction, Unknown, NAUSEA, 10/07/16) Height (Feet): 5 Height (Inches): 2.00 Weight (Pounds): 274 Weight (Ounces): 1.6 Home Health Need/Face to Face Date of Face to Face: Mar 24, 2018 Clinical Findings: Generalized weakness and fatigue, Muscle weakness I have seen Pt [id number]: Yes Discharged To: Home Diagnosis/Conditions: CVA Patient is Homebound due to: Varun fall risk due to instabilty, Muscle weakness Homebound Status Due to the above stated illness, injury or surgical procedure (medical condition or diagnosis) and associated clinical findings, the patient is homebound because of his/her inability to leave home except with aid of a supportive device and/or person AND leaving the home requires a considerable and taxing effort or is medically contraindicated. Pt req the following assistanc: Walker Home Health Nursing Orders Home Health Services Order: Actuarial Mathematician-Evaluate & Treat, Physical Therapy-Evaluate & Treat Home Health Infusion Therapy Line Start Date: Mar 17, 2018 Line Start Time: 1330 Line Type: Saline Lock Site Location: Antecubital Therapy Orders Therapy Orders: OT (must have SN or PT order), Physical Therapy Therapy Specific Orders: Eval assistive deivces, Teach enviro modifications/ safety, Gait training, Increase strength/endurance Certify Stmt I certify that this patient is under my care and that I, a nurse practitioner or a physician; a print shop assistant working with me, had a face to face encounter that - meets the physician face to face encounter requirements with this patient as dated. I personally scribed for HECTOR BRITT MD ([facility]) on 03/23/18 at 15:18. Electronically submitted by Heidi Richter ([id number]). HECTOR BRITT MD Mar 23, 2018 15:18
[2018-03-23] MEDS ORDERED: ATOR40TA PO (15:54)
[2018-03-23] MEDS ORDERED: ASPI-983 PO (15:54)
[2018-03-23] MEDS ORDERED: LISI10TA2 PO (15:55)
[2018-03-23] MEDS ORDERED: CLOP75TA28 PO (15:55)
[2018-03-23 16:21] VITALS: BP 152/79
--- NOTE | 2018-03-23 17:00 | Cardiology Progress Note ---
Cardiology SOAP Progress Note Subjective: No cardiac complaints. Objective: I&O/Vital Signs 03/23/18 16:21 Temp 97.0 Pulse 60 Resp 16 B/P (MAP) 152/79 (103) Pulse Ox 98 O2 Delivery Room Air 03/23/18 00:00 Intake Total 1102 ml Balance 1102 ml Weight (Pounds): 274 Weight (Ounces): 1.6 Weight (Calculated Kilograms): 124.633984 Device Insertion Site: without hematoma Swelling: without swelling Constitutional: AAO x 3, well-developed, well-nourished Respiratory: No accessory muscle use, No respiratory distress; lungs clear to auscultation Cardiovascular: regular rate-rhythm; No JVD; S1 and S2 Gastrointestional: No tender, No soft, No round, No distended, No pulsatile mass, No organomegaly, No guarding, No rebound, No tenderness, No hernia, No mass; audible bowel sounds; No abnormal bowel sounds, No abdominal bruits, No spleenomegaly, No other Extremities: No normal range of motion, No non-tender, No normal inspection, No pedal edema, No calf tenderness, No normal capillary refill, No pelvis stable , No calf tenderness, No inflammation, No pedal edema, No slow capillary refill , No swelling, No other, No abrasion, No clubbing, No cyanosis, No ecchymosis, No laceration; no lower extremity edema bilateral; No significant edema, No tenderness, No wound Neurologic/Psychiatric: alert, normal mood/affect, oriented x 3, grossly intact (speech appropriate today) Skin: No rash, No ulcerations Results/Procedures: Labs Laboratory Tests 03/23/18 05:36: Glucometer 130H 03/23/18 07:13: White Blood Count 5.7, Red Blood Count 3.89L, Hemoglobin 11.7, Hematocrit 35, Mean Corpuscular Volume 90, Mean Corpuscular Hemoglobin 30, Mean Corpuscular Hemoglobin Concent 34, Red Cell Distribution Width 14.8H, Platelet Count 108L, Mean Platelet Volume 10.9H, Sodium Level 142, Potassium Level 4.3, Chloride Level 110H, Carbon Dioxide Level 23, Anion Gap 9, Blood Urea Nitrogen 18, Creatinine 0.82, Estimat Glomerular Filtration Rate > 60, BUN/Creatinine Ratio 22, Glucose Level 139H, Calcium Level 9.0 7/24/18 16:20: Glucometer 179H A/P: Assessment/Dx: Cryptogenic CVA with subsequent dysphasia, worse on 03-17-18, but has improved. s /p [employer] loop recorder for atrial fibrillation surveillance. Echo of 03/18/18: LVEF 55-60%, AoV sclerosis w/o stenosis, PASP 30 mmHg No angiographically significant coronary artery disease, normal global left ventricular systolic function with an ejection fraction of approximately 60 to 65%, elevated left ventricular end-diastolic pressure indicative of some degree of diastolic dysfunction of the left ventricle, and no significant mitral regurgitation per cardiac catheterization from 01/06/12 Maturity onset diabetes mellitus. Hypertension, currently controlled. Acute renal insufficiency - management per medical services Chronic bilateral leg swelling, likely related to venous insufficiency. Hyperlipidemia, chronically being treated with simvastatin and being managed by Dr. Cortez. Chronic mild anemia and mild thrombocytopenia being managed by Dr. Cortez. Chronic back pain and degenerative joint disease. Pulmonary artery systolic pressure is estimated to be approximately 40 mmHg per echocardiogram from 08/18/2013, which is unchanged from 2012. Elevated BMI of approx 45 Plan: Patient has cryptogenic stroke with no significant disease in the carotid arteries. Echocardiogram does not show any significant abnormality. Telemetry for a few days did not show paroxysmal atrial fibrillation. Implantable loop recorder done recently. We will continue aspirin and Plavix for now. If any evidence of atrial fibrillation is found on the loop recorder, she will be converted to oral anti- coagulation. Continue inpatient rehabilitation. Acute on chronic renal insufficiency. Nephrology consultation is recommended as an outpatient. Thank you for your consultation. Please call me if you have any questions. Elgin Colvin MD, FACP, FACC, FSCAI, FHRS, CCDS Interventional Cardiology Cardiac Electrophysiology Vascular Medicine and Endovascular Interventions [place] COLVIN MD Mar 23, 2018 4:59 pm
--- NOTE | 2018-03-23 20:12 | CONSULTATION REPORT ---
DATE OF SERVICE: 03/23/2018 The patient is admitted to room 230. PRIMARY AND REFERRING PHYSICIAN: Ba Cortez DO. IMPRESSION: 1. A 77-year-old female admitted with a probable cerebrovascular accident. She has no residual now and is back to her baseline, currently undergoing rehabilitation. 2. Thrombocytopenia, which is longstanding dating back to 2009. This is of undetermined etiology. 3. Other comorbidities including hypertension, hypercholesterolemia, diabetes mellitus type 2, etc. RECOMMENDATIONS: 1. Repeat CBC with a smear, CMP, LDH, protime, D-dimer and fibrinogen tomorrow morning. 2. I will review the lab work and make further recommendations. 3. Avoid heparin products. 4. Continue current care as you are doing. HISTORY OF PRESENT ILLNESS: The patient is a 77-year-old female who is a resident of an assisted care facility who was brought to the emergency room with an episode of confusion, difficulty with speech and weakness. She was evaluated with a CT scan of the head and an MRI could not be obtained because of her weight and size. A clinical diagnosis of CVA was made, but she has recovered most of her functions within 48 hours. She was then transferred to rehabilitation services for strengthening. She was noted to have thrombocytopenia and hematology consultation was requested. No history of bleeding, but has tendency to bruise easy. She was started on Plavix and is on aspirin also. She did receive one dose of Lovenox while in acute care admission. PAST MEDICAL HISTORY: Significant for hypertension, hypercholesterolemia, diabetes mellitus type 2 and osteoarthritis. She has previous history of DVT requiring an IVC filter placement in the remote past. PAST SURGICAL HISTORY: Includes bilateral total knee replacement, left shoulder surgery, left heel bone spur removal, Nava filter placement. SOCIAL HISTORY: The patient is and was living at an assisted care facility at [facility]. She has a son who lives in [place], [place] and a daughter who lives in [place], [place]. She denied any tobacco use, but has a significant exposure to secondhand smoke as both her parents and her smoked. No significant alcohol or other recreational drug use. FAMILY HISTORY: Unremarkable with no significant hematologic problems in the family. Father had an [place] while in his mid to late 60s and mother had a CVA while in her late 60s. PHYSICAL EXAMINATION: GENERAL: Today showed an elderly female, awake and oriented, obese, in no acute distress. VITAL SIGNS: Temperature was 97.0, pulse rate of 60, respirations 16, blood pressure 152/79 with oxygen saturation of 98% on room air. HEENT: Normocephalic, extraocular muscles intact, conjunctivae pink, oral mucosa moist. NECK: Supple, with no JVD. No cervical, supraclavicular or axillary lymphadenopathy palpable. CHEST: Symmetrical. Loop monitor was implanted on the left side of chest wall. LUNGS: Fairly clear to auscultation without wheezes or rales. CARDIOVASCULAR: Regular in rate and rhythm. No murmurs or gallops heard. ABDOMEN: Obese, soft, nontender with no hepatosplenomegaly or other masses palpable. EXTREMITIES: Showed 1+ edema around the ankles. NEUROLOGIC: Showed no focal motor deficits. Overall, motor strength was 4/5 bilaterally. LABORATORY DATA: CBC done today showed WBC 5.7, hemoglobin 11.7 and platelet count 108,000. Low platelet count of 92,000 was noted on 03/20/2018. BMP done today showed relatively normal electrolytes. BUN was 18 and creatinine 0.82 with GFR more than 60 mL per minute. Nonfasting glucose was 139. Liver function studies from 03/18/2018 showed total bilirubin 1.2 and albumin 2.8 with rest of the liver function studies within normal limits. Reviewed previous CBCs dating back to 2009 and the patient has had thrombocytopenia since 2009. Platelet count has been from the 90 to 128,000 range. Thank you for allowing me to participate in this patient's care. I will follow the patient with you and make appropriate recommendations. Job ID: [id number] DocumentID: [id number] Dictated Date: 03/23/2018 17:33:54 Prover Date: 03/23/2018 20:12:11 Dictated By: DUY NGUYEN MD [facility] HOSPITALJalen
[2018-03-23] MEDS: POLYETHYLENE GLYCOL 17 GM (MIRALAX) PACK PO SCH (20:50)
[2018-03-23] MEDS: ATORVASTATIN 40 MG (LIPITOR) TABLET PO SCH (20:50)
[2018-03-24 06:00] VITALS: BP 143/73
[2018-03-24 06:01] LABS: BASOPHILS % (AUTO) 0 % (0-10); EOSINOPHILS # (AUTO) 0.4 10^3/uL (0.0-0.3); EOSINOPHILS % (AUTO) 8 % (0-10); HEMATOCRIT 31 % (35-52); HEMOGLOBIN 10.1 G/DL (11.5-16.0); LYMPHOCYTES # (AUTO) 1.1 X 10^3 (1.0-4.0); LYMPHOCYTES % (AUTO) 20 % (12-44); MEAN CORPUSCULAR HEMOGLOBIN 29 PG (25-34); MEAN CORPUSCULAR HGB CONC 33 G/DL (32-36); MEAN CORPUSCULAR VOLUME 90 FL (80-99); MEAN PLATELET VOLUME 10.6 FL (7.4-10.4); MONOCYTES # (AUTO) 0.5 X 10^3 (0.0-1.0); MONOCYTES % (AUTO) 10 % (0-12); NEUTROPHILS # (AUTO) 3.2 X 10^3 (1.8-7.8); NEUTROPHILS % (AUTO) 61 % (42-75); PLATELET COUNT 106 10^3/uL (130-400); RED BLOOD COUNT 3.43 10^6/uL (4.35-5.85); RED CELL DISTRIBUTION WIDTH 14.8 % (10.0-14.5); WHITE BLOOD COUNT 5.2 10^3/uL (4.3-11.0)
[2018-03-24] MEDS: FAMOTIDINE 20 MG (PEPCID) TABLET PO SCH (06:03)
[2018-03-24] MEDS: metFORMIN 500 MG (GLUCOPHAGE) TAB PO SCH (06:03)
[2018-03-24] MEDS: PANTOPRAZOLE 40 MG (PROTONIX) TAB PO SCH (06:04)
[2018-03-24 06:26] LABS: ALANINE AMINOTRANSFERASE 9 U/L (0-55); ALBUMIN 2.7 GM/DL (3.2-4.5); ALKALINE PHOSPHATASE 58 U/L (40-136); BUN/CREATININE RATIO 23; CALCIUM 8.5 MG/DL (8.5-10.1); CARBON DIOXIDE 25 MMOL/L (21-32); CHLORIDE 110 MMOL/L (98-107); CREATININE SERUM 0.73 MG/DL (0.60-1.30); GFR ESTIMATED > 60; GLUCOSE 109 MG/DL (70-105); POTASSIUM 4.1 MMOL/L (3.6-5.0); SODIUM 141 MMOL/L (135-145); TOTAL PROTEIN 5.2 GM/DL (6.4-8.2)
[2018-03-24 07:12] LABS: FIBRIN DEGRADATION PRODUCTS 13.04 UG/ML (0.00-0.49); INR 1.2 (0.8-1.4); PROTHROMBIN TIME PATIENT 15.4 SEC (12.2-14.7)
[2018-03-24 07:38] LABS: EOSINOPHILS % (MANUAL) 5 %; LYMPHOCYTES % (MANUAL) 19 %; MONOCYTES % (MANUAL) 5 %; NEUTROPHILS % (MANUAL) 71 %; RBC MORPH NORMAL
--- NOTE | 2018-03-24 08:09 | PM & R (SOAP) Progress Note ---
Subjective This was a face to face visit with the patient. Date Seen by Provider: Mar 24, 2018 Time Seen by Provider: 07:40 Subjective/Events-last exam Patient was seen in her room this AM [place] for discharge back to [facility] today with [facility] Objective Physician Exam Last Set of Vital Signs Vital Signs Date Time Temp Pulse Resp B/P (MAP) Pulse Ox O2 Delivery O2 Flow Rate FiO2 03/24/18 06:00 98.8 61 18 143/73 (96) 99 Room Air Capillary Refill : Less Than 3 Seconds I&O Intake and Output 03/24/18 00:00 Intake Total 1370 ml Balance 1370 ml Intake Oral 1370 ml # Voids 10 General: Alert, Oriented X3, Cooperative, No Acute Distress HEENT: Atraumatic, PERRLA, EOMI, Mucous Memb Moist/Castor Neck: Supple, No JVD Lungs: Clear to Auscultation Heart: Regular Rate Abdomen: Normal Bowel Sounds, Soft, No Tenderness, Other Extremities: Other Neuro: Other Results Lab Data Laboratory Tests 03/21/18 16:12: Glucometer 161H 03/22/18 05:10: Glucometer 130H 03/22/18 09:18: White Blood Count 5.5, Red Blood Count 3.69L, Hemoglobin 11.1L, Hematocrit 33L, Mean Corpuscular Volume 90, Mean Corpuscular Hemoglobin 30, Mean Corpuscular Hemoglobin Concent 34, Red Cell Distribution Width 14.7H, Platelet Count 107L, Mean Platelet Volume 10.4, Neutrophils (%) (Auto) 66, Lymphocytes (%) (Auto) 18 , Monocytes (%) (Auto) 8, Eosinophils (%) (Auto) 7, Basophils (%) (Auto) 1, Neutrophils # (Auto) 3.6, Lymphocytes # (Auto) 1.0, Monocytes # (Auto) 0.5, Eosinophils # (Auto) 0.4H, Basophils # (Auto) 0.0 03/22/18 15:45: Glucometer 193H 03/23/18 05:36: Glucometer 130H 03/23/18 07:13: White Blood Count 5.7, Red Blood Count 3.89L, Hemoglobin 11.7, Hematocrit 35, Mean Corpuscular Volume 90, Mean Corpuscular Hemoglobin 30, Mean Corpuscular Hemoglobin Concent 34, Red Cell Distribution Width 14.8H, Platelet Count 108L, Mean Platelet Volume 10.9H, Sodium Level 142, Potassium Level 4.3, Chloride Level 110H, Carbon Dioxide Level 23, Anion Gap 9, Blood Urea Nitrogen 18, Creatinine 0.82, Estimat Glomerular Filtration Rate > 60, BUN/Creatinine Ratio 22, Glucose Level 139H, Calcium Level 9.0 03/23/18 16:20: Glucometer 179H 03/24/18 05:33: Glucometer 114H, White Blood Count 5.2, Red Blood Count 3.43L, Hemoglobin 10.1L , Hematocrit 31L, Mean Corpuscular Volume 90, Mean Corpuscular Hemoglobin 29, Mean Corpuscular Hemoglobin Concent 33, Red Cell Distribution Width 14.8H, Platelet Count 106L, Mean Platelet Volume 10.6H, Sodium Level 141, Potassium Level 4.1, Chloride Level 110H, Carbon Dioxide Level 25, Anion Gap 6, Blood Urea Nitrogen 17, Creatinine 0.73, Estimat Glomerular Filtration Rate > 60, BUN/ Creatinine Ratio 23, Glucose Level 109H, Calcium Level 8.5, Neutrophils (%) ( Auto) 61, Lymphocytes (%) (Auto) 20, Monocytes (%) (Auto) 10, Eosinophils (%) ( Auto) 8, Basophils (%) (Auto) 0, Neutrophils # (Auto) 3.2, Lymphocytes # (Auto) 1.1, Monocytes # (Auto) 0.5, Eosinophils # (Auto) 0.4H, Basophils # (Auto) 0.0, Neutrophils % (Manual) 71, Lymphocytes % (Manual) 19, Monocytes % (Manual) 5, Eosinophils % (Manual) 5, Blood Morphology Comment NORMAL, Prothrombin Time 15.4H, INR Comment 1.2, Fibrinogen 326, D-Dimer 13.04H, Total Bilirubin 1.0, Aspartate Amino Transf (AST/SGOT) 15, Alanine Aminotransferase (ALT/SGPT) 9, Alkaline Phosphatase 58, Lactate Dehydrogenase 188, Total Protein 5.2L, Albumin 2.7L Assessment/Plan Assessment and Plan Discharge back to [facility] today F/U with PCP and cardiology Current meds reviewed See orders (1) CVA (cerebral vascular accident) Qualifiers: Qualified Codes: I63.9 - Cerebral infarction, unspecified Status: Acute Co-Morbidities that are continuing to impact the rehab process: (include details ) HECTOR BRITT MD Mar 24, 2018 08:09
--- NOTE | 2018-03-24 08:11 | Progress Note (SOAP) ---
Subjective Time Seen by Provider: 08:05 Subjective/Events-last exam Patient feeling better today. Patient speaking good. Patient has no residuals CVA Patient seen by hematology for thrombocytopenia. Patient be discharged today Objective Exam Vital Signs Date Time Temp Pulse Resp B/P (MAP) Pulse Ox O2 Delivery O2 Flow Rate FiO2 03/24/18 06:00 98.8 61 18 143/73 (96) 99 Room Air 03/23/18 16:21 97.0 60 16 152/79 (103) 98 Room Air 03/23/18 09:08 Room Air I & O 03/24/18 07:00 Intake Total 1510 ml Balance 1510 ml Capillary Refill : Less Than 3 Seconds General Appearance: No Apparent Distress, WD/WN HEENT: Normal ENT Inspection Neck: Full Range of Motion, Normal Inspection, Non Tender Respiratory: Chest Non Tender, Lungs Clear, Normal Breath Sounds, No Accessory Muscle Use, No Respiratory Distress Cardiovascular: Regular Rate, Rhythm, No Murmur Gastrointestinal: non tender, soft Results Lab Laboratory Tests 03/24/18 05:33 Laboratory Tests 03/23/18 16:20: Glucometer 179H 03/24/18 05:33: Glucometer 114H, White Blood Count 5.2, Red Blood Count 3.43L, Hemoglobin 10.1L , Hematocrit 31L, Mean Corpuscular Volume 90, Mean Corpuscular Hemoglobin 29, Mean Corpuscular Hemoglobin Concent 33, Red Cell Distribution Width 14.8H, Platelet Count 106L, Mean Platelet Volume 10.6H, Neutrophils (%) (Auto) 61, Lymphocytes (%) (Auto) 20, Monocytes (%) (Auto) 10, Eosinophils (%) (Auto) 8, Basophils (%) (Auto) 0, Neutrophils # (Auto) 3.2, Lymphocytes # (Auto) 1.1, Monocytes # (Auto) 0.5, Eosinophils # (Auto) 0.4H, Basophils # (Auto) 0.0, Neutrophils % (Manual) 71, Lymphocytes % (Manual) 19, Monocytes % (Manual) 5, Eosinophils % (Manual) 5, Blood Morphology Comment NORMAL, Prothrombin Time 15.4H, INR Comment 1.2, Fibrinogen 326, D-Dimer 13.04H, Sodium Level 141, Potassium Level 4.1, Chloride Level 110H, Carbon Dioxide Level 25, Anion Gap 6, Blood Urea Nitrogen 17, Creatinine 0.73, Estimat Glomerular Filtration Rate > 60 , BUN/Creatinine Ratio 23, Glucose Level 109H, Calcium Level 8.5, Total Bilirubin 1.0, Aspartate Amino Transf (AST/SGOT) 15, Alanine Aminotransferase ( ALT/SGPT) 9, Alkaline Phosphatase 58, Lactate Dehydrogenase 188, Total Protein 5.2L, Albumin 2.7L Assessment/Plan Assessment/Plan Assess & Plan/Chief Complaint Sheet CVA history. Diabetes. Dysphagia. Dysarthria. Diabetes. Obesity. Hypertension. . 03/15/18. Acute CVA. Diabetes. Dysphagia better. Dysarthria better. Diabetes under good control. Obesity. HYPERTENSION. Patient feel she is improving. . 03/17/17. Patient having symptoms a stroke. Patient not talking well. Patient has renal insufficiency today. Patient vomited last night. Patient had abdominal pain last night. Patient able to move all extremities.. . 03/18/17. Patient doing much better today. Patient talking better. Patient's blood pressure better. Patient not vomiting. CVA. Dysarthria. Dysphagia. Diabetes. Hypertension history. Acute renal insufficiency monitoring. . 03/19/18. Patient doing better today. Patient talking better. Lab pressure slightly elevated. Speech improved. Patient not having any problems. GFR normal now. . . CVA. Diabetes. Thrombocytopenia. Dysphagia. Dysarthria. Obesity. Patient doing much better in speaking better and getting around better. . 03/23/18. CVA acute. Diabetes. Thrombocytopenia. Dysphagia better. Dysarthria better. Obesity. Patient doing much better and getting around. Renal insufficiency. Resolved. . 03/24/18. CVA. Diabetes. Thrombocytopenia area Dysphagia. Dysarthria. Renal insufficiency. Patient be discharged today Clinical Quality Measures DVT/VTE Risk/Contraindication: Risk Factor Score Per Nursin RFS Level Per Nursing on Admit: 4+=Very High ADEN LEE DO Mar 24, 2018 08:11
--- NOTE | 2018-03-24 08:53 | Therapy Team Discharge Summary ---
Therapy Discharge Summary Discharge Recommendations Date of Discharge Therapy D/C Recommendations: Home Independently, Occupational Therapy Home Care Occupational Therapy Pt was seen for skilled OT to increase her independence in basic self care to allow her to safely return to her home at [facility] following CVA. On admission she was independent with eating, needed SBA for grooming, upper body dressing, toileting and toilet transfer and mod assist for lower body dressing. By discharge she had progressed to independent with eating and grooming, modified independent with dressing, toileting and setup/supervision for bathing and shower transfers. She used FWW, shower bench, BSC over toilet, grab bars, hand held shower and at times used a dressing stick. See tx plan for goals met. Home health OT recommended. DC OT Decreased Activ Tolerance, Impaired I ADL's, Impaired Self-Care Skills, Restricted Funct UE ROM PT Dough Brake Machine Operator Goals Detention Goals PT Dough Brake Machine Operator Goals Time Frame: Mar 26, 2018 Transfers (B,C,W/C) (FIM): 6 Roll Left to Right (QC): 6 Sit to Lying (QC): 6 Lying-Sitting on Side/Bed(QC): 6 Sit to Stand (QC): 6 Chair/Kjy-ej-Hejvh Xfer(QC): 6 Car Transfer (QC): 5 Does the Patient Walk: Yes Gait (FIM): 6 Gait distance (FIM): 3=150 ft Walk 10 feet (QC): 6 Walk 10ft-Uneven Surface(QC): 6 Walk 50ft with 2 Turns (QC): 6 Walk 150 ft (QC): 6 Gait Level of Assist: 6 Gait Assistive Device: FWW Stairs (FIM): 2 # of Steps: 4 1 Step (curb) (QC): 5 4 Steps (QC): 4 12 Steps (QC): 88 Picking up an Object (QC): 88 OT Dough Brake Machine Operator Goals Dough Brake Machine Operator Goals Time Frame: Mar 25, 2018 Eating (FIM): 6 (met 7-24-18) Eating (QC): 6 (met 7-24-18) Oral Hygiene (QC): 6 (met 7-24-18) Grooming(FIM): 6 (met 7-24-18) Bathing(FIM): 5 (met 7-24-18) Shower/Bathe Self (QC): 5 (met 7-24-18) Upper Body Dressing(FIM): 6 (met 03-23-18) Upper Body Dressing (QC): 6 (met 03-23-18) Lower Body Dressing(FIM): 6 (met 03-23-18) Lower Body Dressing (QC): 6 (met 03-23-18) On/Off Footwear (QC): 6 (met 03-23-18) Toileting(FIM): 6 (met 03-23-18) Toileting Hygiene (QC): 6 (met 03-23-18) Transfers (B,C,W/C) (FIM): 6 Toilet/Commode Transfer(FIM): 6 (met 03-23-18) Toilet/Commode Transfer (QC): 6 (met 03-23-18) Shower Transfer(FIM): 5 (met 03-23-18) Comprehension(FIM): 6 (MET) Expression (FIM): 5 (MET) Social Interaction(FIM): 7 (MET) Problem Solving(FIM): 4 (MET) Memory(FIM): 4 (MET) Additional Goals: 1-Demonstrate ADL Tasks, 2-Verbalize Understanding, 3- ImproveStrength/Mary Ann 1=Demonstrate adherence to instructed precautions during ADL tasks. 2=Patient will verbalize/demonstrate understanding of assistive devices/ modifications for ADL. 3=Patient will improve strength/tolerance for activity to enable patient to perform ADL's. Speech Dough Brake Machine Operator Goals Dough Brake Machine Operator Goals Pt will demonstrate ability to tolerate thin liquids with no s/s of aspiration. MET Speech/language: Pt will be independent with communication. MET Time Frame: 1 week Comprehension: 6 (MET) Expression: 5 (MET) Social Interaction: 7 (MET) Problem Solvin (MET) Memory: 4 (MET) JANNET COREY OT Mar 24, 2018 08:53
[2018-03-24] MEDS: TELMISARTAN 40 MG (MICARDIS) TAB PO SCH (09:00)
[2018-03-24] MEDS: ASPIRIN E.C. 81 MG (ECOTRIN) TAB PO SCH (09:00)
[2018-03-24] MEDS: lisINopril 10 MG (PRINIVIL) TABLET PO SCH (09:00)
[2018-03-24] MEDS: SENNA W/DOCUSATE (SENOKOT S) TABLET PO SCH (09:00)
[2018-03-24] MEDS: CLOPIDOGREL 75 MG (PLAVIX) TABLET PO SCH (09:00)
--- NOTE | 2018-03-24 09:21 | Therapy Team Discharge Summary ---
Therapy Discharge Summary Discharge Recommendations Date of Discharge 03/24/2018 Therapy D/C Recommendations: Home Independently, Occupational Therapy Home Care , Physical Therapy Home Care Physical Therapy This patient was transferred to ARU post acute stay due to a CVA. Prior to hospital stay, she was mod indep, living at a nearby [facility]. She did occasionally leave the facility with her daughter so she was able to ambulate community distances. Upon admit to our ARU, she was mod assist with transferred, walked short distances with CGA and went up/down 1 step with assist. Treatment has focused on functional strength and functional mobility to allow her to return to her prior living setting. At ne, she was mod indep with transfers and gait and able to go up/down 4 steps mod indep. She did make functional progress and achieved all goals to a satisfactory level. Recommend F/U PT at [facility]. DC from [facility] at this time. Occupational Therapy Decreased Activ Tolerance, Impaired I ADL's, Impaired Self-Care Skills, Restricted Funct UE ROM PT Tile Shader Goals Tile Shader Goals PT Detention Goals Time Frame: Mar 26, 2018 Transfers (B,C,W/C) (FIM): 6 (met) Roll Left to Right (QC): 6 Sit to Lying (QC): 6 Lying-Sitting on Side/Bed(QC): 6 Sit to Stand (QC): 6 Chair/Dbo-dn-Ueems Xfer(QC): 6 Car Transfer (QC): 5 Does the Patient Walk: Yes Gait (FIM): 6 (met) Gait distance (FIM): 3=150 ft Walk 10 feet (QC): 6 Walk 10ft-Uneven Surface(QC): 6 Walk 50ft with 2 Turns (QC): 6 Walk 150 ft (QC): 6 Gait Level of Assist: 6 Gait Assistive Device: FWW Stairs (FIM): 2 (exceedd) # of Steps: 4 1 Step (curb) (QC): 5 4 Steps (QC): 4 12 Steps (QC): 88 Picking up an Object (QC): 88 pt has met all FIM goals to a satisfactory level OT Tile Shader Goals Tile Shader Goals Time Frame: Mar 25, 2018 Eating (FIM): 6 (met 7-24-18) Eating (QC): 6 (met 7-24-18) Oral Hygiene (QC): 6 (met 7-24-18) Grooming(FIM): 6 (met 7-24-18) Bathing(FIM): 5 (met 03-23-18) Shower/Bathe Self (QC): 5 (met 03-23-18) Upper Body Dressing(FIM): 6 (met 03-23-18) Upper Body Dressing (QC): 6 (met 03-23-18) Lower Body Dressing(FIM): 6 (met 03-23-18) Lower Body Dressing (QC): 6 (met 03-23-18) On/Off Footwear (QC): 6 (met 03-23-18) Toileting(FIM): 6 (met 03-23-18) Toileting Hygiene (QC): 6 (met 03-23-18) Transfers (B,C,W/C) (FIM): 6 Toilet/Commode Transfer(FIM): 6 (met 03-23-18) Toilet/Commode Transfer (QC): 6 (met 03-23-18) Shower Transfer(FIM): 5 (met 03-23-18) Comprehension(FIM): 6 (MET) Expression (FIM): 5 (MET) Social Interaction(FIM): 7 (MET) Problem Solving(FIM): 4 (MET) Memory(FIM): 4 (MET) Additional Goals: 1-Demonstrate ADL Tasks, 2-Verbalize Understanding, 3- ImproveStrength/Mary Ann 1=Demonstrate adherence to instructed precautions during ADL tasks. 2=Patient will verbalize/demonstrate understanding of assistive devices/ modifications for ADL. 3=Patient will improve strength/tolerance for activity to enable patient to perform ADL's. Speech Tile Shader Goals Detention Goals Pt will demonstrate ability to tolerate thin liquids with no s/s of aspiration. MET Speech/language: Pt will be independent with communication. MET Time Frame: 1 week Comprehension: 6 (MET) Expression: 5 (MET) Social Interaction: 7 (MET) Problem Solvin (MET) Memory: 4 (MET) MICHAELA ARRIAZA PT Mar 24, 2018 09:21
--- NOTE | 2018-03-24 10:05 | Cardiology Progress Note ---
Cardiology SOAP Progress Note Subjective: No cardiac complaints. Objective: I&O/Vital Signs 03/24/18 06:00 Temp 98.8 Pulse 61 Resp 18 B/P (MAP) 143/73 (96) Pulse Ox 99 O2 Delivery Room Air 03/24/18 00:00 Intake Total 1170 ml Balance 1170 ml Weight (Pounds): 275 Weight (Ounces): 0.0 Weight (Calculated Kilograms): 124.669167 Device Insertion Site: without hematoma Swelling: without swelling Constitutional: AAO x 3, well-developed, well-nourished Respiratory: No accessory muscle use, No respiratory distress; lungs clear to auscultation Cardiovascular: regular rate-rhythm; No JVD; S1 and S2 Gastrointestional: No tender, No soft, No round, No distended, No pulsatile mass, No organomegaly, No guarding, No rebound, No tenderness, No hernia, No mass; audible bowel sounds; No abnormal bowel sounds, No abdominal bruits, No spleenomegaly, No other Extremities: No normal range of motion, No non-tender, No normal inspection, No pedal edema, No calf tenderness, No normal capillary refill, No pelvis stable , No calf tenderness, No inflammation, No pedal edema, No slow capillary refill , No swelling, No other, No abrasion, No clubbing, No cyanosis, No ecchymosis, No laceration; no lower extremity edema bilateral; No significant edema, No tenderness, No wound Neurologic/Psychiatric: alert, normal mood/affect, oriented x 3, grossly intact (speech appropriate today) Skin: No rash, No ulcerations Results/Procedures: Labs Laboratory Tests 03/23/18 16:20: Glucometer 179H 03/24/18 05:33: Glucometer 114H, White Blood Count 5.2, Red Blood Count 3.43L, Hemoglobin 10.1L , Hematocrit 31L, Mean Corpuscular Volume 90, Mean Corpuscular Hemoglobin 29, Mean Corpuscular Hemoglobin Concent 33, Red Cell Distribution Width 14.8H, Platelet Count 106L, Mean Platelet Volume 10.6H, Neutrophils (%) (Auto) 61, Lymphocytes (%) (Auto) 20, Monocytes (%) (Auto) 10, Eosinophils (%) (Auto) 8, Basophils (%) (Auto) 0, Neutrophils # (Auto) 3.2, Lymphocytes # (Auto) 1.1, Monocytes # (Auto) 0.5, Eosinophils # (Auto) 0.4H, Basophils # (Auto) 0.0, Neutrophils % (Manual) 71, Lymphocytes % (Manual) 19, Monocytes % (Manual) 5, Eosinophils % (Manual) 5, Blood Morphology Comment NORMAL, Prothrombin Time 15.4H, INR Comment 1.2, Fibrinogen 326, D-Dimer 13.04H, Sodium Level 141, Potassium Level 4.1, Chloride Level 110H, Carbon Dioxide Level 25, Anion Gap 6, Blood Urea Nitrogen 17, Creatinine 0.73, Estimat Glomerular Filtration Rate > 60 , BUN/Creatinine Ratio 23, Glucose Level 109H, Calcium Level 8.5, Total Bilirubin 1.0, Aspartate Amino Transf (AST/SGOT) 15, Alanine Aminotransferase ( ALT/SGPT) 9, Alkaline Phosphatase 58, Lactate Dehydrogenase 188, Total Protein 5.2L, Albumin 2.7L A/P: Assessment/Dx: Cryptogenic CVA with subsequent dysphasia, worse on 03-17-18, but has improved. s /p [employer] loop recorder for atrial fibrillation surveillance. Echo of 03/18/18: LVEF 55-60%, AoV sclerosis w/o stenosis, PASP 30 mmHg No angiographically significant coronary artery disease, normal global left ventricular systolic function with an ejection fraction of approximately 60 to 65%, elevated left ventricular end-diastolic pressure indicative of some degree of diastolic dysfunction of the left ventricle, and no significant mitral regurgitation per cardiac catheterization from 01/06/12 Maturity onset diabetes mellitus. Hypertension, currently controlled. Acute renal insufficiency - management per medical services Chronic bilateral leg swelling, likely related to venous insufficiency. Hyperlipidemia, chronically being treated with simvastatin and being managed by Dr. Cortez. Chronic mild anemia and mild thrombocytopenia being managed by Dr. Cortez. Chronic back pain and degenerative joint disease. Pulmonary artery systolic pressure is estimated to be approximately 40 mmHg per echocardiogram from 08/18/2013, which is unchanged from 2012. Elevated BMI of approx 45 Plan: Patient has cryptogenic stroke with no significant disease in the carotid arteries. Echocardiogram does not show any significant abnormality. Telemetry for a few days did not show paroxysmal atrial fibrillation. Implantable loop recorder done recently. We will continue aspirin and Plavix for now. If any evidence of atrial fibrillation is found on the loop recorder, she will be converted to oral anti- coagulation. Continue inpatient rehabilitation. Acute on chronic renal insufficiency. Nephrology consultation is recommended as an outpatient. Thank you for your consultation. Please call me if you have any questions. Elgin Colvin MD, FACP, FACC, FSCAI, FHRS, CCDS Interventional Cardiology Cardiac Electrophysiology Vascular Medicine and Endovascular Interventions [place] COLVIN MD Mar 24, 2018 10:05 am
[2018-03-24 16:10] VITALS: BP 143/73
--- NOTE | 2018-04-07 04:12 | DISCHARGE SUMMARY ---
DATE OF SERVICE: 03/24/2018 HISTORY OF PRESENT ILLNESS: The patient is a 77-year-old female who lives at assisted living facility in [place] who presented to ER by EMS at [facility] on 03/08/2018 due to difficulty with walking and confusion. She was admitted to service of Dr. Cortez, PCP. A CT scan of the brain was negative; however, the patient was felt empirically to have sustained a stroke. Therapies were begun. The patient was felt to be appropriate for inpatient rehabilitation unit. The patient had been modified independent for mobility with a walker prior to this. She was seen by speech therapy and had a swallow assessment with modified barium swallow and was advanced to a regular diet upon transfer to IRU. PAST MEDICAL HISTORY: Type 2 diabetes mellitus on metformin, osteoarthritis, DVT, hypertension, obesity, thrombocytopenia chronic since 2009 of uncertain etiology, a Grant filter placement, left shoulder surgery, bilateral total knee replacement. She has lived for about a year in assisted living facility. She has children that live in this area, one in [place]. MEDICAL COURSE: The patient was followed by Dr. Rosenthal and Dr. Cortez while on rehab unit. The patient was followed by cardiology as well. Medications were adjusted and aspirin started for stroke prophylaxis despite thrombocytopenia, but this was stable. The patient was seen by Dr. Savage who notes that thrombocytopenia was chronic and recommended followup labs. The patient was afebrile during her stay. Pulse was 61 on 03/20/2018, respirations 18, blood pressure 143/73, O2 sat 98% on room air. CBC on 03/24/2018 showed WBC 5.2, H and H 10.1/31, platelet count 106. INR 1.2 on 03/24/2018. Chemistry on 03/24/2018 showed chloride 110, glucose 109, albumin low at 2.7, total protein low at 5.2, remainder within normal limits. The patient's BUN and creatinine improved to 17.7/0.73 on 03/24/2018 from 31/1.32 on 03/17/2018 with IV fluids provided. Glucometer readings from 03/22/2018 to 03/24/2018 varied between 130 and 179. The patient did have a change in mental status with dysarthria and some increased weakness. This quickly resolved over 24 hours with IV fluids for treatment of her dehydration. There was atrophy of both kidneys again noted and a 13 mm cystic structure involving anterior aspect of the right kidney, otherwise both kidneys are unremarkable with no hydrocephalus or stones. REHABILITATION COURSE: Progress was good other than the one episode where she became dehydrated. SPEECH THERAPY NOTES: Upon admission, she was found to have dysarthria and aphasia. Once she was rehydrated and her vomiting ceased, this improved back to baseline and is back to a regular consistency solids with thin liquids. OT NOTES: Upon admission, she was independent with eating, standby assist for grooming, upper body dressing, toileting and toilet transfers, mod assist for lower body dressing. By discharge, she progressed to independence with eating and grooming, modified independent with dressing, toileting and set up supervision for bathing and shower transfers. PT NOTES: Prior to hospital stay, she was modified independent living in the nearby assisted living facility for mobility. She did occasionally leave the facility with her daughter, so she was able to ambulate community distances. Upon admission to the rehab unit, she was mod assist with transfers, walks short distances with contact guard and went up and down one step with assistance. At discharge, she is modified independent with transfers and gait. Able go up and down four steps modified independent. DISCHARGE INSTRUCTIONS: The patient is discharged back to assisted living facility with home health care. She will have followup with Dr. Pozo, cardiology and Dr. Cortez, PCP. Continue current diet. DISCHARGE MEDICATIONS: Ocuvite 1 capsule p.o. daily, Toviaz 4 mg p.o. daily, fish oil 1200 mg p.o. b.i.d., metformin 500 mg p.o. b.i.d., omeprazole 40 mg p.o. daily, Micardis 80 mg p.o. daily. DISCHARGE DIAGNOSES: 1. Rehabilitation stroke with generalized weakness, dysarthria, dysphagia, gait instability, all improving. 2. Type 2 diabetes mellitus, controlled with medication. 3. Hypertension with chronic kidney disease. 4. Obesity. 5. BMI 48.7. 6. Thrombocytopenia, stable. 7. . 8. Anemia. 9. Mixed hyperlipidemia. 10. Long-term use metformin. 11. Hypertension with chronic kidney disease. 12. Cholelithiasis. 13. Acute renal insufficiency. 14. Aortic stenosis with mitral regurg, tricuspid regurg. 15. Dehydration with change in mental status, improved with hydration. 16. Venous insufficiency. A CT of the head was done on 03/17/2018, it was negative. MRI was not able to be done, I believe due to the patient's obesity. A CT of the abdomen and pelvis revealed possible cholelithiasis but no evidence of acute cholecystitis. There was atrophy of both kidneys, again noted and a 13 mm cystic structure involving anterior aspect of the right kidney, otherwise both kidneys are unremarkable with no hydrocephalus or stones. Also noted was hypertrophic spurs involving both hips. CONDITION AT DISCHARGE: Improved and stable. PROGNOSIS: Rehab prognosis appears good for some continued improvement at assisted living facility at prior level of function. However, due to her age and multiple comorbidities, she will continue to require some assistance from assisted living facility staff which is appropriate. Job ID: [id number] DocumentID: [id number] Dictated Date: 04/06/2018 11:24:38 Top Taper Machine Date: 04/07/2018 04:11:14 Dictated By: HECTOR ROSENTHAL MD
== END 2018-03-24 16:25 | disposition home health service (06) | DRG 41 ==
PROVIDERS: ADMIT Physical Medicine & Rehabilitation; ATTEND Physical Medicine & Rehabilitation
PROC: 0JH602Z Insertion of Monitoring Device into Chest Subcutaneous Tissue and Fascia, Open Approach (ICD-10-PCS; principal; 2018-03-19)
DX: I69.398 Other sequelae of cerebral infarction (principal); R29.898 Other symptoms and signs involving the musculoskeletal system; I69.322 Dysarthria following cerebral infarction; I69.391 Dysphagia following cerebral infarction; R26.2 Difficulty in walking, not elsewhere classified; E11.9 Type 2 diabetes mellitus without complications; I12.9 Hypertensive chronic kidney disease with stage 1 through stage 4 chronic kidney disease, or unspecified chronic kidney disease; N18.9 Chronic kidney disease, unspecified; Z68.42 Body mass index [BMI] 45.0-49.9, adult; E66.9 Obesity, unspecified; D69.6 Thrombocytopenia, unspecified; E78.00 Pure hypercholesterolemia, unspecified; D64.9 Anemia, unspecified; E78.2 Mixed hyperlipidemia; K80.20 Calculus of gallbladder without cholecystitis without obstruction; N28.9 Disorder of kidney and ureter, unspecified; I08.3 Combined rheumatic disorders of mitral, aortic and tricuspid valves; E86.0 Dehydration; I87.2 Venous insufficiency (chronic) (peripheral); Z79.84 Long term (current) use of oral hypoglycemic drugs
CPT/HCPCS: 33282; 36415; 70450; 74176; 76937; 80048; 80053; 82962; 83615; 85007; 85025; 85027; 85379; 85384; 85610; 93005; 93306

== ENCOUNTER 2018-03-26 06:45 | Inpatient (IN) | payer MEDICARE, OTHER, MEDICAID ==
[~2018-03-26] VITALS: Ht 157.5 cm; Wt 125.7 kg
[~2018-03-26 06:45] MED LIST changes: +ASPI-983 PO; +ATOR40TA PO; +LISI10TA2 PO
[2018-03-26] MEDS ORDERED: RT-ALBUTEROL/IPRATROPIUM 3 ML (DUONEB) VIAL ONE (06:58)
[2018-03-26] MEDS ORDERED: RT-ALBUTEROL/IPRATROPIUM 3 ML (DUONEB) VIAL INH ONE (07:00)
[2018-03-26] MEDS ORDERED: ONDANSETRON 4 MG/2 ML (SDV) Z0FRAN IVP ONE (07:30)
--- NOTE | 2018-03-26 07:57 | Diagnostic Imaging Report ---
Indication: Lethargy Frontal chest obtained at 723 hours a.m. and compared with 03/08/2018 There is cardiomegaly. Aorta is mildly tortuous. Lungs are clear. There is no pneumothorax or pleural fluid. There are old left-sided rib fractures. There is a left shoulder prosthesis. Impression: Cardiomegaly with no acute process in the chest. Dictated by: Dictated on workstation # [id number]
[2018-03-26] MEDS ORDERED: ONDANSETRON 4 MG (ZOFRAN) ORAL DISSOLVE TAB SL ONE (08:00)
--- NOTE | 2018-03-26 08:12 | ED General ---
General Chief Complaint: Neurological Problems Stated Complaint: DROWSY, DIFFICULT TO WAKE Nursing Triage Note: LETHARGY Nursing Sepsis Screen: No Definite Risk Source of Information: Patient Exam Limitations: No Limitations History of Present Illness Date Seen by Provider: Mar 26, 2018 Time Seen by Provider: 06:34 Initial Comments This 77-year-old woman is brought to the emergency room via EMS from assisted living because of a reported unresponsive episode. Patient reports she hasn't been up and gone to the restroom and laid back down. Staff then went to check on her and could not arouse her from sleep. By the time she arrived to the emergency room she is alert and oriented. Patient remembers very little surrounding the event except that she did not recognize one of the staff members who she is normally well acquainted with. Patient had recently been admitted to [facility] for a strokelike episode. She reports some difficulty with speaking but her oropharynx seems very dry. After moistening her mouth with water she is able to speak more clearly. She has actually had some dysarthria and dysphagia since having the episode for which she was admitted. EMS reports they're [place] stroke scale was negative. Vital signs were unremarkable. Fingerstick blood sugar was 173. Patient reports some mild nausea and epigastric discomfort but otherwise has felt fairly well. Allergies and Home Medications Allergies Coded Allergies: Penicillins (Unverified Allergy, Unknown, 12/21/06) codeine (Unverified Allergy, Unknown, 12/21/06) aspirin (Verified Adverse Reaction, Unknown, NAUSEA, 10/07/16) Home Medications Aspirin 81 Mg Tablet.dr, 81 MG PO DAILY, (Reported) Atorvastatin Calcium 40 Mg Tablet, 40 MG PO HS, (Reported) C,E,Zinc,Copper 11/Nfcjb6m/Lut 1 Each Capsule, 1 CAP PO DAILY, (Reported) Clopidogrel Bisulfate 75 Mg Tablet, 75 MG PO DAILY, (Reported) Fesoterodine Fumarate 4 Mg Tab.sr.24h, 4 MG PO DAILY, (Reported) Fish Oil/Dha/Epa 1 Each Capsule, 1,200 MG PO BID, (Reported) Lisinopril 10 Mg Tablet, 10 MG PO DAILY, (Reported) Metformin HCl 500 Mg Tablet, 500 MG PO BID, (Reported) Omeprazole 40 Mg Capsule.dr, 40 MG PO DAILY, (Reported) Telmisartan 80 Mg Tablet, 80 MG PO DAILY, (Reported) Patient Home Medication List Home Medication List Reviewed: Yes Review of Systems Constitutional: no symptoms reported EENTM: no symptoms reported Respiratory: no symptoms reported Cardiovascular: see HPI Gastrointestinal: see HPI Genitourinary: no symptoms reported : No Musculoskeletal: no symptoms reported Skin: no symptoms reported Psychiatric/Neurological: See HPI Hematologic/Lymphatic: No Symptoms Reported Immunological/Allergic: no symptoms reported Past Oxuycfr-Kxpodg-Teuzye Hx Patient Social History Alcohol Use: Denies Use Recreational Drug Use: No Smoking Status: Never a Smoker Recent Foreign Travel: No Contact w/Someone Who Travel: No Recent Infectious Disease Expo: No Recent Hopitalizations: Yes (LOOP RECORDER IMPLANTED) Physical Abuse: No Sexual Abuse: No Immunizations Up To Date Tetanus Booster (TDap): More than 5yrs Date of Pneumonia Vaccine: Aug 07, 2016 Date of Influenza Vaccine: Jun 09, 2016 Seasonal Allergies Seasonal Allergies: No Past Medical History Surgeries: Yes (BILAT TKR, TIEN FILTER, LEFT SHOULDER SURGERY, BONE SPUR LEFT HEEL) Joint Replacement, Orthopedic Respiratory: No Cardiac: Yes (tien filter placement) Deep Vein Thrombosis, High Cholesterol, Hypertension Neurological: Yes Reproductive Disorders: No Female Reproductive Disorders: Denies Sexually Transmitted Disease: No HIV/AIDS: No Genitourinary: No Gastrointestinal: Yes Gastroesophageal Reflux Musculoskeletal: Yes (BONE SPUR REMOVAL LEFT FOOT) Arthritis Endocrine: Yes (DM TYPE II) Diabetes, Non-Insulin dep HEENT: No Cancer: No Psychosocial: No Nursing Suicide Risk Score: 0 Integumentary: No Blood Disorders: Yes (BLOOD CLOT LEG TO LUNG 2000) Family Medical History Myocardial infarction No Pertinent Family Hx Physical Exam Vital Signs Vital Signs - First Documented 03/26/18 06:45 Temp 97.4 Pulse 75 Resp 18 B/P (MAP) 144/70 (94) Pulse Ox 99 O2 Delivery Room Air Capillary Refill : Less Than 3 Seconds Height, Weight, BMI Height: 5'2.00" Weight: 275lbs. 0.0oz. [id number]; 50.3 BMI Method:Estimated General Appearance: No Apparent Distress, WD/WN HEENT: PERRL/EOMI, Normal ENT Inspection, Other (oropharynx somewhat dry) Neck: Normal Inspection Respiratory: Lungs Clear, Normal Breath Sounds, No Accessory Muscle Use, No Respiratory Distress Cardiovascular: Regular Rate, Rhythm, No Edema, No Murmur Gastrointestinal: Normal Bowel Sounds, Soft, Tenderness (minimal epigastric tenderness) Back: Normal Inspection Extremity: Normal Capillary Refill, Non Tender, Swelling Neurologic/Psychiatric: Alert, Oriented x3, No Motor/Sensory Deficits, Normal Mood/Affect, 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 rolling machine 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 II-XII Norm as Tested Skin: Normal Color, Warm/Dry Progress/Results/Core Measures Suspected Sepsis Recent Fever Within 48 Hours: No Infection Criteria Present: None New/Unexplained Altered Menta: No Sepsis Screen: No Definite Risk SIRS Temperature:97.4 Pulse: 75 Respiratory Rate: 18 Laboratory Tests 03/26/18 08:17: White Blood Count 5.7 03/26/18 17:21: White Blood Count 5.3 Blood Pressure 144 /70 Mean: 94 Laboratory Tests 03/26/18 08:17: Creatinine 0.76, Platelet Count 34*L, Total Bilirubin 1.1H 03/26/18 17:21: Platelet Count 108L Results/Orders Lab Results Laboratory Tests Test 03/26/18 08:17 03/26/18 08:51 03/26/18 17:21 Range/Units White Blood Count 5.7 5.3 4.3-11.0 10^3/uL Red Blood Count 3.74 L 3.62 L 4.35-5.85 10^6/uL Hemoglobin 11.0 L 10.6 L 11.5-16.0 G/DL Hematocrit 33 L 32 L 35-52 % Mean Corpuscular Volume 88 88 80-99 FL Mean Corpuscular Hemoglobin 29 29 25-34 PG Mean Corpuscular Hemoglobin Concent 33 33 32-36 G/DL Red Cell Distribution Width 14.9 H 14.8 H 10.0-14.5 % Platelet Count 34 *L 108 L 130-400 10^3/uL Mean Platelet Volume 10.6 H 10.7 H 7.4-10.4 FL Neutrophils (%) (Auto) 81 H 73 42-75 % Lymphocytes (%) (Auto) 12 14 12-44 % Monocytes (%) (Auto) 5 10 0-12 % Eosinophils (%) (Auto) 2 3 0-10 % Basophils (%) (Auto) 0 0 0-10 % Neutrophils # (Auto) 4.6 3.9 1.8-7.8 X 10^3 Lymphocytes # (Auto) 0.7 L 0.8 L 1.0-4.0 X 10^3 Monocytes # (Auto) 0.3 0.5 0.0-1.0 X 10^3 Eosinophils # (Auto) 0.1 0.2 0.0-0.3 10^3/uL Basophils # (Auto) 0.0 0.0 0.0-0.1 10^3/uL Sodium Level 141 135-145 MMOL/L Potassium Level 4.3 3.6-5.0 MMOL/L Chloride Level 110 H 98-107 MMOL/L Carbon Dioxide Level 25 21-32 MMOL/L Anion Gap 6 5-14 MMOL/L Blood Urea Nitrogen 17 7-18 MG/DL Creatinine 0.76 0.60-1.30 MG/DL Estimat Glomerular Filtration Rate > 60 BUN/Creatinine Ratio 22 Glucose Level 143 H 70-105 MG/DL Calcium Level 8.7 8.5-10.1 MG/DL Magnesium Level 1.2 L 1.8-2.4 MG/DL Total Bilirubin 1.1 H 0.1-1.0 MG/DL Aspartate Amino Transf (AST/SGOT) 15 5-34 U/L Alanine Aminotransferase (ALT/SGPT) 11 0-55 U/L Alkaline Phosphatase 69 40-136 U/L B-Type Natriuretic Peptide 68.1 <100.0 PG/ML Total Protein 5.4 L 6.4-8.2 GM/DL Albumin 2.9 L 3.2-4.5 GM/DL Urine Color YELLOW Urine Clarity SLIGHTLY CLOUDY Urine pH 5 5-9 Urine Specific [place] 1.015 L 1.016-1.022 Urine Protein 1+ H NEGATIVE Urine Glucose (UA) NEGATIVE NEGATIVE Urine Ketones NEGATIVE NEGATIVE Urine Nitrite NEGATIVE NEGATIVE Urine Bilirubin NEGATIVE NEGATIVE Urine Urobilinogen 1 NORMAL MG/DL Urine Leukocyte Esterase 1+ H NEGATIVE Urine RBC (Auto) NEGATIVE NEGATIVE Urine RBC NONE /HPF Urine WBC RARE /HPF Urine Squamous Epithelial Cells 2-5 /HPF Urine Crystals NONE /LPF Urine Bacteria NEGATIVE /HPF Urine Casts PRESENT /LPF Urine Hyaline Casts 0-2 H /LPF Urine Mucus NEGATIVE /LPF Urine Culture Indicated NO My Orders Orders - AMADOR CHENG MD BNP (03/26/18 06:52) Cbc With Automated Diff (03/26/18 06:52) Comprehensive Metabolic Panel (03/26/18 06:52) Magnesium (03/26/18 06:52) Ua Culture If Indicated (03/26/18 06:52) Saline Lock/Iv-Start (03/26/18 06:52) Ekg Tracing (03/26/18 06:52) Monitor-Rhythm Ecg Trace Only (03/26/18 06:52) Chest 1 View, Ap/Pa Only (03/26/18 06:52) Albuterol/Ipra Inhalation Soln (Duoneb I (03/26/18 07:00) Svn Small Volume Nebulizer (03/26/18 06:59) Albuterol/Ipra Inhalation Soln (Duoneb I (03/26/18 06:58) Ondansetron Injection (Zofran Injectio (03/26/18 07:30) Ondansetron Oral Dissolve Tab (Zofran (03/26/18 08:00) Venous Access Request Order (03/26/18 11:25) Medications Given in ED Current Medications Medications Dose Ordered Sig/Georgie Route Start Time Stop Time Status Last Admin Dose Admin Albuterol/ Ipratropium 3 ml ONCE ONCE INH 03/26/18 07:00 03/26/18 07:01 DC 03/26/18 07:02 3 ML Ondansetron HCl 4 mg ONCE ONCE SL 03/26/18 08:00 03/26/18 08:01 DC 03/26/18 08:08 4 MG Vital Signs/I&O 03/26/18 03/26/18 03/26/18 03/26/18 07:02 13:00 13:45 14:00 Temp 97.9 Pulse 81 68 78 Resp 9 15 14 B/P (MAP) 180/68 (105) 155/75 154/61 (92) Pulse Ox 98 99 O2 Delivery Room Air Room Air Room Air Room Air 03/26/18 03/26/18 03/26/18 14:23 15:00 16:00 Pulse 64 76 92 Resp 16 14 B/P (MAP) 115/79 (91) O2 Delivery Room Air Room Air Capillary Refill : Less Than 3 Seconds Blood Pressure Mean: 94 Progress Note #1: Progress Note Patient's dysarthria seem to be more from dry mouth and then from a true neurologic problem. Her speech improved after moistening her mouth. Patient's daughter reports that her speech is near the baseline she has had over the last 2 weeks. She had no other focal neurologic deficits. Case was discussed with Dr. Lee and Dr. Pozo. They agree with keeping the patient at the hospital until her loop recorder can be interrogated. The public service representative is in route from [place] to perform this task. Patient had a very difficult venous access. No IV could be established after multiple attempts by multiple staff members. With significant difficulty a blood draw was obtained. Patient was found to be thrombocytopenic which was likely due to clotting. Patient has been previously seen by Dr. Savage for a more moderate thrombocytopenia. He believes this to be chronic and stable. See his consultation note in the computer. I was able to discuss with Dr Savage as well. Patient will have a CBC redrawn after PICC line is placed. If her loop recorder interrogation shows no significant events, patient remains stable, and platelets are stable, patient may possibly be discharged today or tomorrow morning. Progress Note #2: Progress Note After evaluation by the loop recorder public service representative, it was found patient had significant bradycardia with heart block as well as a prolonged run of atrial fibrillation. Pacemaker may be necessary. ECG Initial ECG Impression Date: Mar 26, 2018 Initial ECG Impression Time: 07:04 Initial ECG Rate: 68 Initial ECG Rhythm: Normal Sinus Initial ECG Intervals: Normal Initial ECG Impression: Normal Comment Normal sinus rhythm with no ST elevation or depression. No abnormal intervals or axis deviation. Diagnostic Imaging Diagonstic Imaging: Xray Plain Films/CT/US/NM/MRI: chest Comments Chest x-ray viewed by me and report reviewed. See report below: NAME: KATHARINE PEREZ [facility] REC#: [id number] PT STATUS: REG ER : 1940 PHYSICIAN: AMADOR CHENG MD ADMIT DATE: 03/26/18/ER Draft Date of Exam:03/26/18 CHEST 1 VIEW, AP/PA ONLY Indication: Lethargy Frontal chest obtained at 723 hours a.m. and compared with 03/08/2018 There is cardiomegaly. Aorta is mildly tortuous. Lungs are clear. There is no pneumothorax or pleural fluid. There are old left-sided rib fractures. There is a left shoulder prosthesis. Impression: Cardiomegaly with no acute process in the chest. Dictated on workstation # [id number] Dict: 03/26/18 0752 Trans: 03/26/18 0757 CVB [id number] Interpreted by: IOANA STEVENS MD Departure Communication (Admissions) Time/Spoke to Admitting Phy: 12:25 Dr. Interiano Time/Spoke to Consulting Phy: 11:10 Dr. Pozo Impression Primary Impression: Unresponsive episode Additional Impressions: Thrombocytopenia Dysarthria Disposition: ADMITTED INPATIENT Condition: Improved Admissions Decision to Admit Reason: Admit from ER (General) Decision to Admit/Date: Mar 26, 2018 Time/Decision to Admit Time: 11:10 Departure-Patient Inst. Referrals: ADEN LEE DO (PCP/Family) Primary Care Physician Copy Copies To 1: ADEN LEE JOSHUA T MD Mar 26, 2018 08:12
[2018-03-26 08:26] LABS: BASOPHILS % (AUTO) 0 % (0-10); EOSINOPHILS # (AUTO) 0.1 10^3/uL (0.0-0.3); EOSINOPHILS % (AUTO) 2 % (0-10); HEMATOCRIT 33 % (35-52); LYMPHOCYTES # (AUTO) 0.7 X 10^3 (1.0-4.0); LYMPHOCYTES % (AUTO) 12 % (12-44); MEAN CORPUSCULAR HEMOGLOBIN 29 PG (25-34); MEAN CORPUSCULAR HGB CONC 33 G/DL (32-36); MEAN CORPUSCULAR VOLUME 88 FL (80-99); MEAN PLATELET VOLUME 10.6 FL (7.4-10.4); MONOCYTES # (AUTO) 0.3 X 10^3 (0.0-1.0); MONOCYTES % (AUTO) 5 % (0-12); NEUTROPHILS # (AUTO) 4.6 X 10^3 (1.8-7.8); NEUTROPHILS % (AUTO) 81 % (42-75); RED BLOOD COUNT 3.74 10^6/uL (4.35-5.85); RED CELL DISTRIBUTION WIDTH 14.9 % (10.0-14.5); WHITE BLOOD COUNT 5.7 10^3/uL (4.3-11.0)
[2018-03-26 08:35] LABS: PLATELET COUNT 34 10^3/uL (130-400)
[2018-03-26 08:46] LABS: ALANINE AMINOTRANSFERASE 11 U/L (0-55); ALBUMIN 2.9 GM/DL (3.2-4.5); ALKALINE PHOSPHATASE 69 U/L (40-136); BILIRUBIN,TOTAL 1.1 MG/DL (0.1-1.0); BUN/CREATININE RATIO 22; CALCIUM 8.7 MG/DL (8.5-10.1); CARBON DIOXIDE 25 MMOL/L (21-32); CHLORIDE 110 MMOL/L (98-107); CREATININE SERUM 0.76 MG/DL (0.60-1.30); GFR ESTIMATED > 60; GLUCOSE 143 MG/DL (70-105); MAGNESIUM 1.2 MG/DL (1.8-2.4); POTASSIUM 4.3 MMOL/L (3.6-5.0); SODIUM 141 MMOL/L (135-145); TOTAL PROTEIN 5.4 GM/DL (6.4-8.2)
[2018-03-26 09:06] LABS: BILIRUBIN,URINE NEGATIVE (NEGATIVE); CLARITY,URINE SLIGHTLY CLOUDY; COLOR,URINE YELLOW; GLUCOSE, URINE (UA) NEGATIVE (NEGATIVE); KETONES,URINE NEGATIVE (NEGATIVE); LEUKOCYTE ESTERASE ,URINE 1+ (NEGATIVE); NITRITE,URINE NEGATIVE (NEGATIVE); PH,URINE 5 (5-9); PROTEIN,URINE 1+ (NEGATIVE); UROBILINOGEN,URINE 1 MG/DL (NORMAL)
[2018-03-26 09:40] LABS: BACTERIA,URINE NEGATIVE /HPF; HYALINE CASTS, URINE 0-2 /LPF; WBC,URINE RARE /HPF
[2018-03-26 13:00] VITALS: BP 180/68
[2018-03-26 14:00] VITALS: BP 154/61
[2018-03-26] MEDS ORDERED: CATHETER FLUSH 10 ML SYR IV PRN (14:15)
[2018-03-26 15:00] VITALS: BP 115/79
[2018-03-26] MEDS ORDERED: ATOR40TA70 PO (16:16)
[2018-03-26] MEDS ORDERED: LISI10TA2 PO (16:16)
[2018-03-26] MEDS ORDERED: ASPI-983 PO (16:16)
[2018-03-26] MEDS ORDERED: CLOP75TA69 PO (16:16)
[2018-03-26 17:26] LABS: BASOPHILS % (AUTO) 0 % (0-10); EOSINOPHILS # (AUTO) 0.2 10^3/uL (0.0-0.3); EOSINOPHILS % (AUTO) 3 % (0-10); HEMATOCRIT 32 % (35-52); HEMOGLOBIN 10.6 G/DL (11.5-16.0); LYMPHOCYTES # (AUTO) 0.8 X 10^3 (1.0-4.0); LYMPHOCYTES % (AUTO) 14 % (12-44); MEAN CORPUSCULAR HEMOGLOBIN 29 PG (25-34); MEAN CORPUSCULAR HGB CONC 33 G/DL (32-36); MEAN CORPUSCULAR VOLUME 88 FL (80-99); MEAN PLATELET VOLUME 10.7 FL (7.4-10.4); MONOCYTES # (AUTO) 0.5 X 10^3 (0.0-1.0); MONOCYTES % (AUTO) 10 % (0-12); NEUTROPHILS # (AUTO) 3.9 X 10^3 (1.8-7.8); NEUTROPHILS % (AUTO) 73 % (42-75); PLATELET COUNT 108 10^3/uL (130-400); RED BLOOD COUNT 3.62 10^6/uL (4.35-5.85); RED CELL DISTRIBUTION WIDTH 14.8 % (10.0-14.5); WHITE BLOOD COUNT 5.3 10^3/uL (4.3-11.0)
--- NOTE | 2018-03-26 18:00 | Consultation-Cardiology ---
HPI-Cardiology Cardiology Consultation: Date of Consultation 03/26/18 Date of Admission Attending Physician Ba Cortez DO Admitting Physician Ba Cortez DO Consulting Physician [place] POZO MD HPI: Time Seen by Provider: 16:30 Chief Complaint: Syncope This is a 77-year-old lady who is a patient of Dr. Carbone and Dr. Cortez. She has previous history of cryptogenic stroke on her previous admission which required a loop recorder. She was transferred to a nursing facility and was found to be unresponsive. She denied any shortness of breath or chest pain. Review of Systems-Cardiology Review of Systems Constitutional: As described under HPI; No As described under HPI, No no symptoms reported, No chills, No fever, No lightheadedness Eyes: No As described under HPI, No no symptoms reported, No blindness, No blurred vision, No contact lenses, No drainage, No decreased acuity, No foreign body sensation, No pain, No vision change Ears/Nose/Throat: No As described under HPI, No no symptoms reported, No chronic hearing loss, No ear discharge, No ear pain, No nasal drainage, No ulcerations Respiratory: No no symptoms reported; As described under HPI; No As described under HPI, No cough, No orthopnea, No shortness of breath, No SOB with excertion Cardiovascular: No no symptoms reported; As described under HPI; No As described under HPI, No chest pain, No edema, No irregular heart rate, No lightheadedness, No palpitations; syncope Gastrointestinal: No no symptoms reported, No As described under HPI, No abdomen distended, No abdominal pain, No blood streaked bowels, No constipation , No diarrhea, No nausea, No vomiting, No stool coloration changes Genitourinary: No As described under HPI, No burning, No dysuria, No discharge , No frequency, No flank pain, No hematuria, No urgency : Yes : No Musculoskeletal: No no symptoms reported, No As describe under HPI, No back pain, No gout, No joint pain, No joint swelling, No muscle pain, No muscle stiffness, No neck pain, No other Skin: No no symptoms reported, No As described under HPI, No change in color, No change in hair/nails, No dryness, No lesions, No lumps, No rash, No other, No skin related problems, No ulcerations, No rash on exposed areas, No ulcerations on exposed areas Psychiatric/Neurological: No no symptoms reported, No As described under HPI, No anxiety, No depression, No emotional problems, No headache, No numbness, No pre-existing deficit, No seizure, No tingling, No tremors, No weakness, No other , No focal weakness, No syncope Hematologic: No bleeding abnormalities PFY-Gzqdus-Ewlynr Hx Patient Social History Alcohol Use: Denies Use Recreational Drug Use: No Smoking Status: Never a Smoker Recent Foreign Travel: No Recent Infectious Disease Expo: No Hospitalization with Isolation: Denies Physical Abuse Screen: No Sexual Abuse: No Immunizations Up To Date Tetanus Booster (TDap): More than 5yrs Date of Pneumonia Vaccine: Aug 07, 2016 Date of Influenza Vaccine: Jun 09, 2016 Past Medical History PMH As described under Assessment. Family Medical History Family History: Myocardial infarction Allergies and Home Medications Allergies Coded Allergies: Penicillins (Unverified Allergy, Unknown, 12/21/06) codeine (Unverified Allergy, Unknown, 12/21/06) aspirin (Verified Adverse Reaction, Unknown, NAUSEA, 10/07/16) Home Medications Aspirin 81 Mg Tablet.dr, 81 MG PO DAILY, (Reported) Atorvastatin Calcium 40 Mg Tablet, 40 MG PO HS, (Reported) C,E,Zinc,Copper 11/Xulpu5a/Lut 1 Each Capsule, 1 CAP PO DAILY, (Reported) Clopidogrel Bisulfate 75 Mg Tablet, 75 MG PO DAILY, (Reported) Fesoterodine Fumarate 4 Mg Tab.sr.24h, 4 MG PO DAILY, (Reported) Fish Oil/Dha/Epa 1 Each Capsule, 1,200 MG PO BID, (Reported) Lisinopril 10 Mg Tablet, 10 MG PO DAILY, (Reported) Metformin HCl 500 Mg Tablet, 500 MG PO BID, (Reported) Omeprazole 40 Mg Capsule.dr, 40 MG PO DAILY, (Reported) Telmisartan 80 Mg Tablet, 80 MG PO DAILY, (Reported) Patient Home Medication List Home Medication List Reviewed: Yes Physical Exam-Cardiology Physical Exam Vital Signs/I&O 03/27/18 03/27/18 03/27/18 03/27/18 04:00 04:00 04:00 07:00 Temp 97.2 Pulse 63 75 B/P (MAP) 150/54 (86) Pulse Ox 94 97 O2 Delivery Room Air Room Air 03/27/18 03/27/18 03/27/18 03/27/18 08:00 08:00 08:30 08:30 Temp 97.3 Pulse 62 B/P (MAP) 141/54 (83) Pulse Ox 98 O2 Delivery Room Air Room Air Room Air 03/27/18 03/27/18 03/27/18 11:15 12:20 13:00 Temp 97.4 Pulse 57 76 Resp 20 B/P (MAP) 121/75 (90) Pulse Ox 100 O2 Delivery Room Air Room Air Capillary Refill : Less Than 3 Seconds Constitutional: appears stated age, AAO x 3; No apparent distress; well- developed, well-nourished HEENT: PERRL; No normal ENT inspection, No TMs normal, No pharynx normal, No scleral icterus (R), No scleral icterus (L), No pale conjunctivae (R), No pale conjunctivae (L), No photophobia, No TM abnormal (R), No TM abnormal (L), No pharyngeal erythema, No tonsillar exudate, No other, No discharge, No EOMI; hearing is well preserved; No hard of hearing; oral hygience is good; No ulceration, No xanthelasmas are seen Neck: No non-tender, No full range of motion, No supple, No normal inspection, No carotid bruit, No limited range of motion, No lymphadenopathy (R), No lymphadenopathy (L), No tender lateral, No tender midline, No thyromegaly, No other; carotid pulses are 2 + bilaterally; No with good upstrokes Respiratory: No accessory muscle use, No respiratory distress, No chest tender , No chest expansion is symmetric; chest is bilaterally symmetric; No lungs clear to percussion; lungs clear to auscultation; No crackles, No rhonchi, No rales, No stridor, No wheezing, No pleural rub, No other Cardiovascular: regular rate-rhythm; No irregularly irregular, No extra beats, No parasternal heave is noted, No JVD, No edema, No bradycardia, No tachycardia , No point of maximal impulse, No cardiac thrills are palpable; S1 and S2; No gallop/S3, No gallop/S4, No diastolic murmur, No systolic murmur, No friction rub, No click, No other Gastrointestinal: No tender, No soft, No round, No distended, No pulsatile mass , No organomegaly, No guarding, No rebound, No tenderness, No hernia, No mass, No audible bowel sounds, No abnormal bowel sounds, No abdominal bruits, No spleenomegaly, No other Rectal: deferred Extremities: No normal range of motion, No non-tender, No normal inspection, No pedal edema, No calf tenderness, No normal capillary refill, No pelvis stable , No calf tenderness, No inflammation, No pedal edema, No slow capillary refill , No swelling, No other, No abrasion, No clubbing, No cyanosis, No ecchymosis, No laceration, No no lower extremity edema bilateral, No significant edema, No tenderness, No wound Neurologic/Psychiatric: no motor/sensory deficits, alert, normal mood/affect, oriented x 3, power is 5/5 both on sides Skin: No normal color, No warm/dry, No cyanosis, No cool, No diaphoresis, No damp, No ecchymosis, No jaundice, No mottled, No pallor, No rash, No tattoos/ piercings, No ulcerations, No rash on exposed areas, No ulcerations on exposed areas, No other Data Review Labs Laboratory Tests 03/26/18 17:21: White Blood Count 5.3, Red Blood Count 3.62L, Hemoglobin 10.6L, Hematocrit 32L, Mean Corpuscular Volume 88, Mean Corpuscular Hemoglobin 29, Mean Corpuscular Hemoglobin Concent 33, Red Cell Distribution Width 14.8H, Platelet Count 108L, Mean Platelet Volume 10.7H, Neutrophils (%) (Auto) 73, Lymphocytes (%) (Auto) 14 , Monocytes (%) (Auto) 10, Eosinophils (%) (Auto) 3, Basophils (%) (Auto) 0, Neutrophils # (Auto) 3.9, Lymphocytes # (Auto) 0.8L, Monocytes # (Auto) 0.5, Eosinophils # (Auto) 0.2, Basophils # (Auto) 0.0 03/27/18 07:21: Glucometer 143H ECG Impression ECG Initial ECG Rhythm: Normal Sinus Initial ECG Impression: Normal A/P-Cardiology Assessment/Admission Diagnosis Syncope, sinus node dysfunction, transient third-degree AV block, Atrial fibrillation, Plan Dual-chamber permanent pacemaker is recommended. Continue telemetry. No rate controlling agents. Dual-chamber permanent pacemaker on Thursday. Syncope likely due to severe sinus node dysfunction and transient third-degree AV block. Dual-chamber permanent pacemaker is recommended. Atrial fibrillation: Discontinue aspirin and Plavix. Will need Eliquis after pacemaker is implanted. Lovenox 1 mg per KG twice a day till Permanent pacemaker is implanted. Thank you for your consultation. Please call me if you have any questions. Elgin Pozo MD, FACP, FACC, FSCAI, FHRS, CCDS Interventional Cardiology Cardiac Electrophysiology Vascular Medicine and Endovascular Interventions Clinical Quality Measures DVT/VTE Risk/Contraindication: Risk Factor Score Per Nursin RFS Level Per Nursing on Admit: 4+=Very High [place] POZO MD Mar 26, 2018 18:00
[2018-03-26 19:00] VITALS: BP 189/71
[2018-03-26 20:00] VITALS: BP 178/69
[2018-03-26] MEDS: CATHETER FLUSH 10 ML SYR IV SCH (22:00)
[2018-03-27] VITALS (7 sets, daily range): BP systolic 121–177; BP diastolic 54–75
[2018-03-27] MEDS: CATHETER FLUSH 10 ML SYR IV SCH ×3 (06:00→22:00)
--- NOTE | 2018-03-27 12:10 | History & Physical-Hospitalist ---
History of Present Illness HPI/Chief Complaint CC: Syncope HPI: This is a 77-year-old white female assisted living patient of Dr. Cortez with past medical history of syncopal episodes that had a loop recorder placed in the recent past who presented after assisted living staff noted unresponsive episode. Loop recorder was interrogated showing runs of atrial fibrillation then significant bradycardia and patient is on the schedule for pacemaker placement on Thursday. At this current time she is receiving all of her home medication properly and denies any pain issues. She did have a bowel movement earlier this morning. She denies any shortness of breath or syncopal episodes since she was admitted. Appreciate cardiology consultation and recommendations. Source: patient, RN/MD Exam Limitations: no limitations Date Seen 03/27/18 Time Seen by Provider: 11:00 Attending Physician Ba Cortez DO PCP Ba Cortez DO Referring Physician Date of Admission Mar 26, 2018 at 12:30 Home Medications & Allergies Home Medications Reviewed patient Home Medication Reconciliation performed by pharmacy medication reconciliations photovoltaic fabrication technician and/or nursing. Patients Allergies have been reviewed. Allergies Allergies Coded Allergies Penicillins (Unverified Allergy, Unknown, 12/21/06) codeine (Unverified Allergy, Unknown, 12/21/06) aspirin (Verified Adverse Reaction, Unknown, NAUSEA, 10/07/16) Past Ymeuqpz-[id number]-Evzdeg Hx Past Med/Social Hx: Reviewed Nursing Past Med/Soc Hx, Reviewed and Corrections made Patient Social History Marrital Status: single Employed/Student: retired Alcohol Use: Denies Use Recreational Drug Use: No Smoking Status: Never a Smoker Physical Abuse Screen: No Sexual Abuse: No Recent Foreign Travel: No Contact w/other who traveled: No Recent Hopitalizations: Yes (LOOP RECORDER IMPLANTED) Recent Infectious Disease Expo: No Immunizations Up To Date Tetanus Booster (TDap): More than 5yrs Date of Pneumonia Vaccine: Aug 07, 2016 Date of Influenza Vaccine: Jun 09, 2016 Seasonal Allergies Seasonal Allergies: No Past Medical History Surgeries: Joint Replacement, Orthopedic Cardiac: Deep Vein Thrombosis, High Cholesterol, Hypertension : No Reproductive: No Sexually Transmitted Disease: No HIV/AIDS: No Female Reproductive Disorders: Denies Gastrointestinal: Gastroesophageal Reflux Musculoskeletal: Arthritis Endocrine: Diabetes, Non-Insulin dep History of Blood Disorders: Yes (BLOOD CLOT LEG TO LUNG 2000) Family History Myocardial infarction No Pertinent Family Hx Review of Systems Constitutional: see HPI, dizziness, weakness EENTM: no symptoms reported Respiratory: no symptoms reported Cardiovascular: no symptoms reported Gastrointestinal: no symptoms reported Genitourinary: no symptoms reported Musculoskeletal: no symptoms reported Skin: no symptoms reported Psychiatric/Neurological: No Symptoms Reported All Other Systems Reviewed Negative Unless Noted: Yes Physical Exam Physical Exam Vital Signs Vital Signs - First Documented 03/26/18 06:45 Temp 97.4 Pulse 75 Resp 18 B/P (MAP) 144/70 (94) Pulse Ox 99 O2 Delivery Room Air Capillary Refill : Less Than 3 Seconds Height, Weight, BMI Height: 5'2.00" Weight: 280lbs. 0.0oz. 127.080923pq; 50.3 BMI Method:Estimated General Appearance: No Apparent Distress, WD/WN, Chronically ill, Obese Eyes: Bilateral Eye Normal Inspection, Bilateral Eye PERRL HEENT: PERRL/EOMI, TMs Normal, Normal ENT Inspection, Pharynx Normal Neck: Full Range of Motion, Normal Inspection, Non Tender, Supple, Carotid Bruit Respiratory: Chest Non Tender, Lungs Clear, Normal Breath Sounds, No Accessory Muscle Use, No Respiratory Distress Cardiovascular: Regular Rate, Rhythm, No Edema, No Gallop, No JVD, No Murmur, Normal Peripheral Pulses Gastrointestinal: Normal Bowel Sounds, No Organomegaly, No Pulsatile Mass, Non Tender, Soft Back: Normal Inspection, No CVA Tenderness, No Vertebral Tenderness Extremity: Normal Capillary Refill, Normal Inspection, Normal Range of Motion, Non Tender, No Calf Tenderness, No Pedal Edema Neurologic/Psychiatric: Alert, Oriented x3, No Motor/Sensory Deficits, Normal Mood/Affect Skin: Normal Color, Warm/Dry Lymphatic: No Adenopathy Results Results/Procedures Labs Laboratory Tests 03/26/18 08:17 03/26/18 17:21 Patient resulted labs reviewed. Assessment/Plan Admission Diagnosis Syncope Sick sinus syndrome with runs of atrial fibrillation and significant bradycardia in need of pacemaker placement on Thursday Hypertension Refractive bladder Risk for obstructive sleep apnea Admission Status: Observation Assessment and Plan Plan: Maintain telemetry and syncopal episode monitoring Home meds are restarted Out of bed if possible Pacemaker placement on Thursday Diagnosis/Problems Diagnosis/Problems (1) Unresponsive episode Status: Acute (2) Atrial fibrillation Status: Acute Assessment & Plan: Documented on loop recorder Qualifiers: Atrial fibrillation type: paroxysmal Qualified Codes: I48.0 - Paroxysmal atrial fibrillation (3) Sick sinus syndrome Status: Acute Assessment & Plan: Needs pacemaker placement Thursday (4) Bradycardia Status: Acute Assessment & Plan: Pacemaker planned (5) Obesity Status: Chronic Qualifiers: Obesity type: due to excess calories Obesity classification: adult class 3 (BMI >= 40) Serious obesity comorbidity presence: with serious comorbidity Body mass index: BMI 50.0-59.9 Qualified Codes: E66.01 - Morbid (severe) obesity due to excess calories; Z68.43 - Body mass index (bmi) 50-59.9 , adult (6) Thrombocytopenia Status: Chronic Assessment & Plan: Dr Savage sees patient in consultation (7) Hypertension Status: Chronic (8) Hyperlipidemia Status: Chronic (9) OAB (overactive bladder) Status: Chronic (10) GERD (gastroesophageal reflux disease) Status: Chronic Qualifiers: Esophagitis presence: without esophagitis Qualified Codes: K21.9 - Gastro- esophageal reflux disease without esophagitis Clinical Quality Measures DVT/VTE Risk/Contraindication: Risk Factor Score Per Nursin RFS Level Per Nursing on Admit: 4+=Very High STEPHEN GARZA DO Mar 27, 2018 12:10
[2018-03-27] MEDS: ENOXAPARIN 60 MG/0.6 ML (LOVENOX) SYR SC SCH (13:06)
--- NOTE | 2018-03-27 14:45 | Cardiology Progress Note ---
Cardiology SOAP Progress Note Subjective: No further syncopal episode. Objective: I&O/Vital Signs 03/27/18 03/27/18 03/27/18 03/27/18 04:00 04:00 04:00 07:00 Temp 97.2 Pulse 63 75 B/P (MAP) 150/54 (86) Pulse Ox 94 97 O2 Delivery Room Air Room Air 03/27/18 03/27/18 03/27/18 03/27/18 08:00 08:00 08:30 08:30 Temp 97.3 Pulse 62 B/P (MAP) 141/54 (83) Pulse Ox 98 O2 Delivery Room Air Room Air Room Air 03/27/18 03/27/18 03/27/18 11:15 12:20 13:00 Temp 97.4 Pulse 57 76 Resp 20 B/P (MAP) 121/75 (90) Pulse Ox 100 O2 Delivery Room Air Room Air Weight (Pounds): 280 Weight (Ounces): 0.0 Weight (Calculated Kilograms): 127.591595 Constitutional: appears stated age, AAO x 3; No apparent distress; well- developed, well-nourished Respiratory: No accessory muscle use, No respiratory distress, No chest tender , No chest expansion is symmetric; chest is bilaterally symmetric; No lungs clear to percussion; lungs clear to auscultation; No crackles, No rhonchi, No rales, No stridor, No wheezing, No pleural rub, No other Cardiovascular: regular rate-rhythm; No irregularly irregular, No extra beats, No parasternal heave is noted, No JVD, No edema, No bradycardia, No tachycardia , No point of maximal impulse, No cardiac thrills are palpable; S1 and S2; No gallop/S3, No gallop/S4, No diastolic murmur, No systolic murmur, No friction rub, No click, No other Gastrointestional: No tender, No soft, No round, No distended, No pulsatile mass, No organomegaly, No guarding, No rebound, No tenderness, No hernia, No mass, No audible bowel sounds, No abnormal bowel sounds, No abdominal bruits, No spleenomegaly, No other Extremities: No normal range of motion, No non-tender, No normal inspection, No pedal edema, No calf tenderness, No normal capillary refill, No pelvis stable , No calf tenderness, No inflammation, No pedal edema, No slow capillary refill , No swelling, No other, No abrasion, No clubbing, No cyanosis, No ecchymosis, No laceration, No no lower extremity edema bilateral, No significant edema, No tenderness, No wound Neurologic/Psychiatric: no motor/sensory deficits, alert, normal mood/affect, oriented x 3, power is 5/5 both on sides Skin: No normal color, No warm/dry, No cyanosis, No cool, No diaphoresis, No damp, No ecchymosis, No jaundice, No mottled, No pallor, No rash, No tattoos/ piercings, No ulcerations, No rash on exposed areas, No ulcerations on exposed areas, No other Results/Procedures: Labs Laboratory Tests 03/26/18 17:21: White Blood Count 5.3, Red Blood Count 3.62L, Hemoglobin 10.6L, Hematocrit 32L, Mean Corpuscular Volume 88, Mean Corpuscular Hemoglobin 29, Mean Corpuscular Hemoglobin Concent 33, Red Cell Distribution Width 14.8H, Platelet Count 108L, Mean Platelet Volume 10.7H, Neutrophils (%) (Auto) 73, Lymphocytes (%) (Auto) 14 , Monocytes (%) (Auto) 10, Eosinophils (%) (Auto) 3, Basophils (%) (Auto) 0, Neutrophils # (Auto) 3.9, Lymphocytes # (Auto) 0.8L, Monocytes # (Auto) 0.5, Eosinophils # (Auto) 0.2, Basophils # (Auto) 0.0 03/27/18 07:21: Glucometer 143H A/P: Assessment/Dx: Syncope, sinus node dysfunction, transient third-degree AV block, Atrial fibrillation, Plan: Dual-chamber permanent pacemaker is recommended. Continue telemetry. No rate controlling agents. Dual-chamber permanent pacemaker on Thursday. Syncope likely due to severe sinus node dysfunction and transient third-degree AV block. Dual-chamber permanent pacemaker is recommended. Atrial fibrillation: Discontinue aspirin and Plavix. Will need Eliquis after pacemaker is implanted. Lovenox 1 mg per KG twice a day till Permanent pacemaker is implanted. Thank you for your consultation. Please call me if you have any questions. Elgin Pozo MD, FACP, FACC, FSCAI, FHRS, CCDS Interventional Cardiology Cardiac Electrophysiology Vascular Medicine and Endovascular Interventions [place] PO[place] MD Mar 27, 2018 14:44
[2018-03-27] MEDS: ATORVASTATIN 40 MG (LIPITOR) TABLET PO SCH (21:59)
[2018-03-28] VITALS (7 sets, daily range): BP systolic 130–176; BP diastolic 62–99
[2018-03-28] MEDS: ENOXAPARIN 60 MG/0.6 ML (LOVENOX) SYR SC SCH ×3 (00:48→20:28)
[2018-03-28] MEDS: CATHETER FLUSH 10 ML SYR IV SCH ×3 (05:29→20:29)
[2018-03-28] MEDS ORDERED: CLOPIDOGREL 75 MG (PLAVIX) TABLET PO SCH (09:00)
[2018-03-28] MEDS ORDERED: ASPIRIN E.C. 81 MG (ECOTRIN) TAB PO SCH (09:00)
[2018-03-28] MEDS: TOLTERODINE LA 2 MG (DETROL LA) CAP PO SCH (09:54)
[2018-03-28] MEDS: lisINopril 10 MG (PRINIVIL) TABLET PO SCH (09:54)
[2018-03-28] MEDS: PANTOPRAZOLE 40 MG (PROTONIX) TAB PO SCH (09:54)
[2018-03-28] MEDS: TELMISARTAN 40 MG (MICARDIS) TAB PO SCH (09:55)
--- NOTE | 2018-03-28 12:10 | Progress Note-Hospitalist ---
Subjective HPI/CC On Admission Date Seen by Provider: Mar 28, 2018 Time Seen by Provider: 11:30 CC: Syncope HPI: This is a 77-year-old white female assisted living patient of Dr. Cortez with past medical history of syncopal episodes that had a loop recorder placed in the recent past who presented after assisted living staff noted unresponsive episode. Loop recorder was interrogated showing runs of atrial fibrillation then significant bradycardia and patient is on the schedule for pacemaker placement on Thursday. At this current time she is receiving all of her home medication properly and denies any pain issues. She did have a bowel movement earlier this morning. She denies any shortness of breath or syncopal episodes since she was admitted. Appreciate cardiology consultation and recommendations. Subjective/Events-last exam Patient the same No syncope since admit Pacemaker placement tomorrow No BM yet but drank grape juice so will leave meds in case she needs them. Review of Systems General: Malaise Gastrointestinal: Constipation Objective Exam Vital Signs Vital Signs Date Time Temp Pulse Resp B/P (MAP) Pulse Ox O2 Delivery O2 Flow Rate FiO2 03/28/18 12:00 98.2 55 18 146/62 (90) 100 Room Air Capillary Refill : Less Than 3 Seconds General Appearance: No Apparent Distress, WD/WN, Chronically ill, Obese Respiratory: Chest Non Tender, Lungs Clear, Normal Breath Sounds, No Accessory Muscle Use, No Respiratory Distress Cardiovascular: Regular Rate, Rhythm, No Edema, No Gallop, No JVD, No Murmur, Normal Peripheral Pulses Neurologic/Psychiatric: Alert, Oriented x3, No Motor/Sensory Deficits, Normal Mood/Affect Skin: Normal Color, Warm/Dry Results/Procedures Lab Patient resulted labs reviewed. Assessment/Plan Assessment and Plan Assess & Plan/Chief Complaint SSS w/syncope in need of pacemaker placement Plan: Maintain telemetry and syncopal episode monitoring Home meds are restarted Out of bed if possible Pacemaker placement on Thursday Diagnosis/Problems Diagnosis/Problems (1) Unresponsive episode Status: Acute (2) Atrial fibrillation Status: Acute Assessment & Plan: Documented on loop recorder Qualifiers: Atrial fibrillation type: paroxysmal Qualified Codes: I48.0 - Paroxysmal atrial fibrillation (3) Sick sinus syndrome Status: Acute Assessment & Plan: Needs pacemaker placement Thursday (4) Bradycardia Status: Acute Assessment & Plan: Pacemaker planned (5) Obesity Status: Chronic Qualifiers: Obesity type: due to excess calories Obesity classification: adult class 3 (BMI >= 40) Serious obesity comorbidity presence: with serious comorbidity Body mass index: BMI 50.0-59.9 Qualified Codes: E66.01 - Morbid (severe) obesity due to excess calories; Z68.43 - Body mass index (bmi) 50-59.9 , adult (6) Thrombocytopenia Status: Chronic Assessment & Plan: Dr Savage sees patient in consultation (7) Hypertension Status: Chronic (8) Hyperlipidemia Status: Chronic (9) OAB (overactive bladder) Status: Chronic (10) GERD (gastroesophageal reflux disease) Status: Chronic Qualifiers: Esophagitis presence: without esophagitis Qualified Codes: K21.9 - Gastro- esophageal reflux disease without esophagitis Clinical Quality Measures DVT/VTE Risk/Contraindication: Risk Factor Score Per Nursin RFS Level Per Nursing on Admit: 4+=Very High STEPHEN GARZA DO Mar 28, 2018 12:10
[2018-03-28] MEDS ORDERED: LACTULOSE SYRUP 10GM/15ML (ENULOSE) 30ML UDC PO PRN (12:30)
--- NOTE | 2018-03-28 13:36 | Cardiology Progress Note ---
Cardiology SOAP Progress Note Subjective: No cardiac complaints. Objective: I&O/Vital Signs 03/28/18 03/28/18 03/28/18 03/28/18 04:00 04:00 07:00 08:00 Temp 97.3 Pulse 56 69 Resp 14 B/P (MAP) 130/99 (109) Pulse Ox 95 O2 Delivery Room Air Room Air Room Air 03/28/18 03/28/18 03/28/18 03/28/18 08:00 09:00 12:00 12:00 Temp 97.2 98.2 Pulse 67 55 Resp 18 18 B/P (MAP) 156/72 (100) 146/62 (90) Pulse Ox 99 100 O2 Delivery Room Air Room Air Room Air Room Air 03/28/18 00:00 Intake Total 900 ml Balance 900 ml Weight (Pounds): 283 Weight (Ounces): 5.0 Weight (Calculated Kilograms): 128.134354 Constitutional: appears stated age, AAO x 3; No apparent distress; well- developed, well-nourished Respiratory: No accessory muscle use, No respiratory distress, No chest tender , No chest expansion is symmetric; chest is bilaterally symmetric; No lungs clear to percussion; lungs clear to auscultation; No crackles, No rhonchi, No rales, No stridor, No wheezing, No pleural rub, No other Cardiovascular: regular rate-rhythm; No irregularly irregular, No extra beats, No parasternal heave is noted, No JVD, No edema, No bradycardia, No tachycardia , No point of maximal impulse, No cardiac thrills are palpable; S1 and S2; No gallop/S3, No gallop/S4, No diastolic murmur, No systolic murmur, No friction rub, No click, No other Gastrointestional: No tender, No soft, No round, No distended, No pulsatile mass, No organomegaly, No guarding, No rebound, No tenderness, No hernia, No mass, No audible bowel sounds, No abnormal bowel sounds, No abdominal bruits, No spleenomegaly, No other Extremities: No normal range of motion, No non-tender, No normal inspection, No pedal edema, No calf tenderness, No normal capillary refill, No pelvis stable , No calf tenderness, No inflammation, No pedal edema, No slow capillary refill , No swelling, No other, No abrasion, No clubbing, No cyanosis, No ecchymosis, No laceration, No no lower extremity edema bilateral, No significant edema, No tenderness, No wound Neurologic/Psychiatric: no motor/sensory deficits, alert, normal mood/affect, oriented x 3, power is 5/5 both on sides Skin: No normal color, No warm/dry, No cyanosis, No cool, No diaphoresis, No damp, No ecchymosis, No jaundice, No mottled, No pallor, No rash, No tattoos/ piercings, No ulcerations, No rash on exposed areas, No ulcerations on exposed areas, No other A/P: Assessment/Dx: Syncope, sinus node dysfunction, transient third-degree AV block, Atrial fibrillation, Plan: Dual-chamber permanent pacemaker is recommended. Continue telemetry. No rate controlling agents. Dual-chamber permanent pacemaker on Thursday. Syncope likely due to severe sinus node dysfunction and transient third-degree AV block. Dual-chamber permanent pacemaker is recommended. Atrial fibrillation: Discontinue aspirin and Plavix. Will need Eliquis after pacemaker is implanted. Lovenox 1 mg per KG twice a day till Permanent pacemaker is implanted. Thank you for your consultation. Please call me if you have any questions. Elgin Pozo MD, FACP, FACC, FSCAI, FHRS, CCDS Interventional Cardiology Cardiac Electrophysiology Vascular Medicine and Endovascular Interventions [place] PO[place] MD Mar 28, 2018 1:36 pm
[2018-03-28] MEDS: DOCUSATE SODIUM 100 MG (COLACE) CAP PO SCH (20:27)
[2018-03-28] MEDS: ATORVASTATIN 40 MG (LIPITOR) TABLET PO SCH (20:28)
[2018-03-29 00:46] VITALS: BP 141/65
[2018-03-29 04:00] VITALS: BP 153/67
[2018-03-29] MEDS: PANTOPRAZOLE 40 MG (PROTONIX) TAB PO SCH (06:45)
[2018-03-29] MEDS: CATHETER FLUSH 10 ML SYR IV SCH ×3 (06:45→19:26)
[2018-03-29] MEDS ORDERED: BACITRACIN INJECTION 50,000 UNIT, SODIUM CHLORIDE 0.9% IRRIGATIO 500 ML IR ONE ×2 (07:30)
[2018-03-29 08:01] VITALS: BP 138/73
[2018-03-29 08:07] LABS: MEAN PLATELET VOLUME 10.8 FL (7.4-10.4); RED BLOOD COUNT 3.25 10^6/uL (4.35-5.85); RED CELL DISTRIBUTION WIDTH 14.7 % (10.0-14.5); WHITE BLOOD COUNT 3.3 10^3/uL (4.3-11.0)
--- NOTE | 2018-03-29 08:07 | Progress Note (SOAP) ---
Subjective Time Seen by Provider: 08:05 Subjective/Events-last exam patient feeling good today. Patient to have a pacemaker put in today. patient understands why. Objective Exam Vital Signs Date Time Temp Pulse Resp B/P (MAP) Pulse Ox O2 Delivery O2 Flow Rate FiO2 03/29/18 07:00 63 03/29/18 04:00 Room Air 03/29/18 04:00 97.8 68 16 153/67 (95) 97 Room Air 03/29/18 00:47 66 03/29/18 00:46 97.9 69 18 141/65 (90) 96 Room Air 03/29/18 00:00 Room Air 03/28/18 21:00 Room Air 03/28/18 20:00 Room Air 03/28/18 19:04 98.8 76 20 176/72 (106) 98 Room Air 03/28/18 19:00 75 03/28/18 17:47 Room Air 03/28/18 17:37 98.4 71 20 172/78 (109) 99 Room Air 03/28/18 16:00 Room Air 03/28/18 15:57 98.9 63 20 152/63 (92) 100 Room Air 03/28/18 13:00 66 03/28/18 12:00 Room Air 03/28/18 12:00 98.2 55 18 146/62 (90) 100 Room Air 03/28/18 09:00 Room Air I & O 03/29/18 07:00 Intake Total 920 ml Balance 920 ml Capillary Refill : Less Than 3 Seconds General Appearance: No Apparent Distress, WD/WN, Obese HEENT: Normal ENT Inspection Neck: Full Range of Motion, Normal Inspection Respiratory: Lungs Clear, Normal Breath Sounds, No Accessory Muscle Use, No Respiratory Distress Cardiovascular: Regular Rate, Rhythm, No Murmur Gastrointestinal: non tender, soft Results Lab Laboratory Tests 03/29/18 07:55: Assessment/Plan Assessment/Plan Assess & Plan/Chief Complaint syncope. Sinus aaron dysfunction. Transient third-degree AV block. Atrial fibrillation. Patient have a pacemaker put in today. Loop to be taken out. Patient understands everything. feeling good Clinical Quality Measures DVT/VTE Risk/Contraindication: Risk Factor Score Per Nursin RFS Level Per Nursing on Admit: 4+=Very High ADEN LEE DO Mar 29, 2018 08:07
[2018-03-29] MEDS: TOLTERODINE LA 2 MG (DETROL LA) CAP PO SCH (08:19)
[2018-03-29] MEDS: TELMISARTAN 40 MG (MICARDIS) TAB PO SCH (08:19)
[2018-03-29] MEDS: DOCUSATE SODIUM 100 MG (COLACE) CAP PO SCH ×2 (08:20→19:32)
[2018-03-29] MEDS: lisINopril 10 MG (PRINIVIL) TABLET PO SCH (08:25)
[2018-03-29 08:34] LABS: INR 1.2 (0.8-1.4); PROTHROMBIN TIME PATIENT 15.6 SEC (12.2-14.7)
[2018-03-29] MEDS: VANCOMYCIN INJECTION 1,000 MG in NS (IVPB) 250 ML IV NR ×2 (11:20→11:58)
[2018-03-29] MEDS: ENOXAPARIN 60 MG/0.6 ML (LOVENOX) SYR SC SCH (11:27)
[2018-03-29 12:00] VITALS: BP 183/75
--- NOTE | 2018-03-29 13:50 | Cardiology Progress Note ---
Cardiology SOAP Progress Note Subjective: No significant cardiac complaints. Objective: I&O/Vital Signs 03/29/18 03/29/18 03/29/18 03/29/18 04:00 04:00 07:00 08:01 Temp 97.8 97.9 Pulse 68 63 70 Resp 16 20 B/P (MAP) 153/67 (95) 138/73 (94) Pulse Ox 97 98 O2 Delivery Room Air Room Air Room Air 03/29/18 03/29/18 12:00 13:00 Temp 97.8 Pulse 59 68 Resp 20 B/P (MAP) 183/75 (111) Pulse Ox 99 O2 Delivery Room Air 03/28/18 23:59 Intake Total 920 ml Balance 920 ml Weight (Pounds): 277 Weight (Ounces): 3.0 Weight (Calculated Kilograms): 125.159323 Constitutional: appears stated age, AAO x 3; No apparent distress; well- developed, well-nourished Respiratory: No accessory muscle use, No respiratory distress, No chest tender , No chest expansion is symmetric; chest is bilaterally symmetric; No lungs clear to percussion; lungs clear to auscultation; No crackles, No rhonchi, No rales, No stridor, No wheezing, No pleural rub, No other Cardiovascular: regular rate-rhythm; No irregularly irregular, No extra beats, No parasternal heave is noted, No JVD, No edema, No bradycardia, No tachycardia , No point of maximal impulse, No cardiac thrills are palpable; S1 and S2; No gallop/S3, No gallop/S4, No diastolic murmur, No systolic murmur, No friction rub, No click, No other Gastrointestional: No tender, No soft, No round, No distended, No pulsatile mass, No organomegaly, No guarding, No rebound, No tenderness, No hernia, No mass, No audible bowel sounds, No abnormal bowel sounds, No abdominal bruits, No spleenomegaly, No other Extremities: No normal range of motion, No non-tender, No normal inspection, No pedal edema, No calf tenderness, No normal capillary refill, No pelvis stable , No calf tenderness, No inflammation, No pedal edema, No slow capillary refill , No swelling, No other, No abrasion, No clubbing, No cyanosis, No ecchymosis, No laceration, No no lower extremity edema bilateral, No significant edema, No tenderness, No wound Neurologic/Psychiatric: no motor/sensory deficits, alert, normal mood/affect, oriented x 3, power is 5/5 both on sides Skin: No normal color, No warm/dry, No cyanosis, No cool, No diaphoresis, No damp, No ecchymosis, No jaundice, No mottled, No pallor, No rash, No tattoos/ piercings, No ulcerations, No rash on exposed areas, No ulcerations on exposed areas, No other Results/Procedures: Labs Laboratory Tests 03/29/18 07:55: White Blood Count 3.3L, Red Blood Count 3.25L, Hemoglobin 10.0L, Hematocrit 29L , Mean Corpuscular Volume 91, Mean Corpuscular Hemoglobin 31, Mean Corpuscular Hemoglobin Concent 34, Red Cell Distribution Width 14.7H, Platelet Count 74L, Mean Platelet Volume 10.8H 03/29/18 08:07: Prothrombin Time 15.6H, INR Comment 1.2, Activated Partial Thromboplast Time 48H A/P: Assessment/Dx: Syncope, sinus node dysfunction, transient third-degree AV block, Atrial fibrillation, Thrombocytopenia Plan: Dual-chamber permanent pacemaker is recommended. Continue telemetry. No rate controlling agents. Dual-chamber permanent pacemaker deferred due to thrombocytopenia. Syncope likely due to severe sinus node dysfunction and transient third-degree AV block. Dual-chamber permanent pacemaker is recommended. Atrial fibrillation: Discontinue aspirin and Plavix. Will need Eliquis after pacemaker is implanted. Lovenox 1 mg per KG twice a day till Permanent pacemaker is implanted. Thrombocytopenia: Platelet count 74,000. Hematology consultation is appreciated. I have discussed with Dr. Clifton. Repeat platelet count, a below 100 ,000 Will give platelet transfusion. Tentatively plan for pacemaker in the morning. Thank you for your consultation. Please call me if you have any questions. Elgin Colvin MD, FACP, FACC, FSCAI, FHRS, CCDS Interventional Cardiology Cardiac Electrophysiology Vascular Medicine and Endovascular Interventions [place] MD Mar 29, 2018 1:50 pm
--- NOTE | 2018-03-29 14:43 | Oncology Consultation ---
Visit Information Visit Information Date of Admission Mar 29, 2018 at 11:29 Attending Physician Ba Cortez DO Admitting Physician Ba Cortez DO Chief Complaint Called to see patient for thrombocytopenia before pacemaker placement Interval History Ms. Delarosa is a 77 year old obese female with h/o chronic thrombocytopenia dated back to 2009. She was admitted from ER because of syncope and aFib, now needs a permanent pacemaker placement. Her Plt was 104k-108k yesterday and last week, but only 74k today. She also had h/o recent TIA, remote h/o DVT s/p sabina IVC filter placement. Dr Savage saw patient on 03-19-18 for thrombocytopenia and suggested close monitoring. Pt had a wire pacemaker placed last week. She has been on Plavix and ASA. I consulted the patient on: 03/29/18 14:33 Time Seen by Provider: 11:30 Constitutional: no symptoms reported EENTM: see HPI Respiratory: no symptoms reported Cardiovascular: syncope Gastrointestinal: no symptoms reported Genitourinary: no symptoms reported Health Status Allergies Coded Allergies: Penicillins (Unverified Allergy, Unknown, 12/21/06) codeine (Unverified Allergy, Unknown, 12/21/06) aspirin (Verified Adverse Reaction, Unknown, NAUSEA, 10/07/16) Home Medications Aspirin (Aspirin EC) 81 Mg Tablet., 81 MG PO DAILY, (Reported) Atorvastatin Calcium (Atorvastatin Calcium) 40 Mg Tablet, 40 MG PO HS, (Reported ) C,E,Zinc,Copper 11/Mfvay0m/Lut (Ocuvite Adult 50 Plus Softgel) 1 Each Capsule, 1 CAP PO DAILY, (Reported) Clopidogrel Bisulfate (Plavix) 75 Mg Tablet, 75 MG PO DAILY, (Reported) Fesoterodine Fumarate (Toviaz) 4 Mg Tab.sr.24h, 4 MG PO DAILY, (Reported) Fish Oil/Dha/Epa (Fish Oil 1,200 mg Fish Oil) 1 Each Capsule, 1,200 MG PO BID, ( Reported) Lisinopril (Lisinopril) 10 Mg Tablet, 10 MG PO DAILY, (Reported) Metformin HCl (Metformin HCl) 500 Mg Tablet, 500 MG PO BID, (Reported) Omeprazole (Omeprazole) 40 Mg Capsule., 40 MG PO DAILY, (Reported) Telmisartan (Micardis) 80 Mg Tablet, 80 MG PO DAILY, (Reported) VYH-Kfvnsm-Jgtngi Hx Patient Social History Marrital Status: single Employed/Student: retired Alcohol Use: Denies Use Recreational Drug Use: No Smoking Status: Never a Smoker Recent Foreign Travel: No Contact w/other who traveled: No Recent Infectious Disease Expo: No Recent Hopitalizations: Yes (LOOP RECORDER IMPLANTED) Physical Abuse Screen: No Sexual Abuse: No Immunizations Up To Date Tetanus Booster (TDap): More than 5yrs Date of Pneumonia Vaccine: Aug 07, 2016 Date of Influenza Vaccine: Jun 09, 2016 Family Medical History Significant Family History: No Pertinent Family Hx Family History: Myocardial infarction Physical Exam Vital Signs Vital Signs - First Documented 03/26/18 06:45 Temp 97.4 Pulse 75 Resp 18 B/P (MAP) 144/70 (94) Pulse Ox 99 O2 Delivery Room Air Capillary Refill : Less Than 3 Seconds Height, Weight, BMI Height: 5'2.00" Weight: 277lbs. 3.0oz. 125.449365wv; 50.3 BMI Method:Estimated General Appearance: No Apparent Distress, Obese HEENT: PERRL/EOMI Neck: Non Tender, Supple Respiratory: Lungs Clear, No Accessory Muscle Use, No Respiratory Distress Cardiovascular: Regular Rate, Rhythm, Other (incision of the wire in the mid chest) Gastrointestinal: Non Tender, Soft, Distended Extremity: No Calf Tenderness, No Pedal Edema, Swelling, Other (iv infiltration , bruices) Neurologic/Psychiatric: Alert, Oriented x3 Data Review Labs Laboratory Tests 03/29/18 17:55 03/30/18 06:32 Laboratory Tests 03/29/18 07:55: White Blood Count 3.3L, Red Blood Count 3.25L, Hemoglobin 10.0L, Hematocrit 29L , Red Cell Distribution Width 14.7H, Platelet Count 74L, Mean Platelet Volume 10.8H 03/29/18 08:07: Prothrombin Time 15.6H, Activated Partial Thromboplast Time 48H 03/29/18 17:55: White Blood Count 3.3L, Red Blood Count 3.28L, Hemoglobin 10.1L, Hematocrit 30L , Red Cell Distribution Width 14.8H, Platelet Count 109L 03/30/18 06:32: White Blood Count 3.4L, Red Blood Count 3.30L, Hemoglobin 9.8L, Hematocrit 30L, Red Cell Distribution Width 15.0H, Platelet Count 121L Impression & Plan Impression & Plan IMP: 1. Pancytoenia noticed today. Her WBC and Hb were normal a week ago when Dr Savage saw patient 2. Syncope, sinus node dysfunction, transient third-degree AV block, Need a permanent pacemaker. 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 3. Obese 4. Chronic thrombocytopenia dated back 2009. 5. ? fatty liver, splenomegaly. Plan: 1. Repeat CBC this evening, if Plt is below 100k, transfuse one pack of Plt. Repeat CBC in 6am tomorrow before the procedure 2. If her pancytopenia persistent, she needs to have bone marrow exam after the pacemaker. It can be done as out-pt 3. Hold off ASA, Plavix. Hold off PM dose of Levonex 4. Thank for the consult and will follow up with you. KARAN IRWIN MD Mar 29, 2018 14:43
[2018-03-29 16:01] VITALS: BP 172/76
[2018-03-29 18:04] LABS: HEMOGLOBIN 10.1 G/DL (11.5-16.0); MEAN PLATELET VOLUME 10.1 FL (7.4-10.4); RED BLOOD COUNT 3.28 10^6/uL (4.35-5.85); RED CELL DISTRIBUTION WIDTH 14.8 % (10.0-14.5); WHITE BLOOD COUNT 3.3 10^3/uL (4.3-11.0)
[2018-03-29] MEDS: ATORVASTATIN 40 MG (LIPITOR) TABLET PO SCH (19:32)
[2018-03-29 19:38] VITALS: BP 169/72
[2018-03-30] VITALS (12 sets, daily range): BP systolic 97–166; BP diastolic 53–78
[2018-03-30] MEDS ORDERED: BACITRACIN INJECTION 50,000 UNIT, SODIUM CHLORIDE 0.9% IRRIGATIO 500 ML IR NR ×2 (06:30)
[2018-03-30] MEDS: PANTOPRAZOLE 40 MG (PROTONIX) TAB PO SCH (06:35)
[2018-03-30] MEDS: CATHETER FLUSH 10 ML SYR IV SCH ×3 (06:35→21:11)
[2018-03-30 06:44] LABS: HEMOGLOBIN 9.8 G/DL (11.5-16.0); MEAN PLATELET VOLUME 10.2 FL (7.4-10.4); RED BLOOD COUNT 3.3 10^6/uL (4.35-5.85); WHITE BLOOD COUNT 3.4 10^3/uL (4.3-11.0)
[2018-03-30] MEDS ORDERED: LIDOCAINE 1% INJ 20 ML 20 ML VIAL ONE (06:46)
[2018-03-30] MEDS ORDERED: NS IV 1000 ML 1,000 ML ONE (06:46)
[2018-03-30] MEDS ORDERED: HEParin (CATH LAB) 1,000 ML IV ONE (06:46)
[2018-03-30] MEDS ORDERED: fentaNYL INJECTION 100 MCG/2 ML AMP ONE ×2 (06:58→07:53)
[2018-03-30] MEDS ORDERED: MIDAZOLAM 5 MG/5 ML (VERSED) VIAL ONE ×3 (06:58→08:39)
[2018-03-30] MEDS ORDERED: NS (IVPB) 250 ML ONE (07:22)
[2018-03-30] MEDS ORDERED: VANCOMYCIN 1000 MG/VIAL ONE (07:22)
--- NOTE | 2018-03-30 07:46 | Progress Note (SOAP) ---
Subjective Time Seen by Provider: 07:40 Subjective/Events-last exam Patient's platelet count 121,000. Patient to have dual-chamber pacemaker inserted today Objective Exam Vital Signs Date Time Temp Pulse Resp B/P (MAP) Pulse Ox O2 Delivery O2 Flow Rate FiO2 03/30/18 07:00 66 03/30/18 04:28 97.8 69 18 152/67 (95) 98 Room Air 03/30/18 04:19 Room Air 03/30/18 01:00 62 03/30/18 00:35 97.4 67 17 166/70 (102) 98 Room Air 03/30/18 00:00 Room Air 03/29/18 21:00 Room Air 03/29/18 19:38 97.9 80 20 169/72 (104) 100 Room Air 03/29/18 19:00 72 03/29/18 16:01 98.0 68 20 172/76 (108) 100 Room Air 03/29/18 13:00 68 03/29/18 12:00 97.8 59 20 183/75 (111) 99 Room Air 03/29/18 09:00 Room Air 03/29/18 08:01 97.9 70 20 138/73 (94) 98 Room Air 03/29/18 08:00 Room Air I & O 03/30/18 07:00 Intake Total 1360 ml Output Total 1650 ml Balance -290 ml Capillary Refill : Less Than 3 Seconds General Appearance: No Apparent Distress Results Lab Laboratory Tests 03/29/18 07:55 03/29/18 17:55 03/30/18 06:32 Laboratory Tests 03/29/18 07:55: White Blood Count 3.3L, Red Blood Count 3.25L, Hemoglobin 10.0L, Hematocrit 29L , Mean Corpuscular Volume 91, Mean Corpuscular Hemoglobin 31, Mean Corpuscular Hemoglobin Concent 34, Red Cell Distribution Width 14.7H, Platelet Count 74L, Mean Platelet Volume 10.8H 03/29/18 08:07: Prothrombin Time 15.6H, INR Comment 1.2, Activated Partial Thromboplast Time 48H 03/29/18 17:55: White Blood Count 3.3L, Red Blood Count 3.28L, Hemoglobin 10.1L, Hematocrit 30L , Mean Corpuscular Volume 90, Mean Corpuscular Hemoglobin 31, Mean Corpuscular Hemoglobin Concent 34, Red Cell Distribution Width 14.8H, Platelet Count 109L, Mean Platelet Volume 10.1 03/30/18 06:32: White Blood Count 3.4L, Red Blood Count 3.30L, Hemoglobin 9.8L, Hematocrit 30L, Mean Corpuscular Volume 91, Mean Corpuscular Hemoglobin 30, Mean Corpuscular Hemoglobin Concent 33, Red Cell Distribution Width 15.0H, Platelet Count 121L, Mean Platelet Volume 10.2 Microbiology 03/28/18 MRSA Screen - Final, Complete MRSA not isolated Assessment/Plan Assessment/Plan Assess & Plan/Chief Complaint syncope. Sinus aaron dysfunction. Transient third-degree AV block. Atrial fibrillation. Patient have a pacemaker put in today. Loop to be taken out. Patient understands everything. Patient feeling good. . 03/30/18. Syncope. Transient third-degree AV block. Atrial fibrillation. Patient had pacemaker put in today since platelet count yesterday was 71 Clinical Quality Measures DVT/VTE Risk/Contraindication: Risk Factor Score Per Nursin RFS Level Per Nursing on Admit: 4+=Very High ADEN LEE DO Mar 30, 2018 07:46
[2018-03-30] MEDS ORDERED: HYDROmorphone 1 MG/ML (DILAUDID) 1 ML SYRINGE ONE (09:15)
[2018-03-30] MEDS ORDERED: NEO/POLY/BAC (NEOSPORIN) OINT 15 GM TUBE ONE (09:32)
--- NOTE | 2018-03-30 09:33 | Physician Progress Note ---
Progress Note Assessment/Plan Date Seen by Provider: Mar 30, 2018 Time Seen by Provider: 09:40 Events since last exam Plt is improved to 112k today without plt transfusion. Permanent pacemaker placement today. Assessment/Plan IMP: 1. Pancytoenia noticed last 2 days. Her WBC and Hb were normal a week ago when Dr Savage saw patient. Plt is improved, up from 74k to 112k today. 2. Syncope, sinus node dysfunction, transient third-degree AV block. A dual chamber permanent pacemaker inserted today without major bleeding or complications. 3. Obese 4. Chronic thrombocytopenia dated back 2009. 5. ? fatty liver, splenomegaly. Need out-pt work up. Plan: 1. Resume Lovenox this evening if no more active bleeding from the procedure site. Resume Plavix and baby ASA tomorrow if no bleeding. 2. Give her about 2 week time to recovery of the pancytopenia. If it persistents , she needs to have bone marrow exam at some point and it can be done as out- pt. 3. I have given her f/u appointment card to see me in 2 weeks at cancer center after she is discharge. 4. Thank for the consult. I will be on vacation starting 03/31/18 and be back on . Please call Dr Savage if any new issue. Vitals Last set of Vitals Signs Vital Signs Date Time Temp Pulse Resp B/P (MAP) Pulse Ox O2 Delivery O2 Flow Rate FiO2 03/30/18 08:00 Room Air 03/30/18 08:00 96.3 60 20 123/53 (76) 100 I&O I&O Intake and Output 03/30/18 00:00 Intake Total 1360 ml Output Total 1650 ml Balance -290 ml Intake Oral 1360 ml Output Urine Total 1650 ml # Voids 5 Labs Laboratory Tests 03/29/18 17:55 03/30/18 06:32 Laboratory Tests 03/29/18 17:55: White Blood Count 3.3L, Red Blood Count 3.28L, Hemoglobin 10.1L, Hematocrit 30L , Mean Corpuscular Volume 90, Mean Corpuscular Hemoglobin 31, Mean Corpuscular Hemoglobin Concent 34, Red Cell Distribution Width 14.8H, Platelet Count 109L, Mean Platelet Volume 10.1 03/30/18 06:32: White Blood Count 3.4L, Red Blood Count 3.30L, Hemoglobin 9.8L, Hematocrit 30L, Mean Corpuscular Volume 91, Mean Corpuscular Hemoglobin 30, Mean Corpuscular Hemoglobin Concent 33, Red Cell Distribution Width 15.0H, Platelet Count 121L, Mean Platelet Volume 10.2 Microbiology 03/28/18 MRSA Screen - Final, Complete MRSA not isolated Clinical Quality Measures DVT/VTE Risk/Contraindication: Risk Factor Score Per Nursin RFS Level Per Nursing on Admit: 4+=Very High KARAN IRWIN MD Mar 30, 2018 09:32
--- NOTE | 2018-03-30 09:54 | Cardiac Procedure Note-CS/ASA ---
Pre-Procedure Note Pre-Op Procedure Note H&P Reviewed The H&P was reviewed, patient examined and no changes noted. Date H&P Reviewed: Mar 30, 2018 Time H&P Reviewed: 07:30 Conscious Sedation Pre-Proced Time Reviewed: 07:30 ASA Class: 3 Airway Mallampati Classification: ([place] appropriate class) I. II. III, IV Lungs Heart ASA score ASA 1: a normal healthy patient ASA 2: a patient with a mild systemic disease (mid diabetes, controlled hypertension, obesity ASA 3: a patient with a severe systemic disease that limits activity (angina , COPD, prior Myocardial infarction) ASA 4: a patient with an incapacitating disease that is a constant threat to life (CHF, renal failure) ASA 5: a moribund patient not expected to survive 24 hrs. (ruptured aneurysm) ASA 6: a declared brain patient whose organs are being harvested. For emergent operations, add the letter E after the classification Grade 1 Sedation Plan: Analgesia, Amnesia, Plan communicated to team members, Discussed options with patient/fam, Discussed risks with patient/fam Note The patient is an appropriate candidate to undergo the planned procedure, sedation, and anesthesia. The patient immediately re-assessed prior to indication. West COLVIN MD Mar 30, 2018 9:54 am
[2018-03-30] MEDS ORDERED: NS IV 1000 ML 1,000 ML IV SCH (09:55)
--- NOTE | 2018-03-30 09:55 | Permanent Pacemaker Implant ---
Dual Chamber Pacemaker Implant PROCEDURE PHYSICIAN: Elgin Pozo MD DUAL CHAMBER PACEMAKER IMPLANTATION: DATE OF PROCEDURE: 03/30/18 REFERRING PHYSICIAN: Dr. Cortez INDICATION: Severe symptomatic sinus node dysfunction associated with syncope, transient high AV block, atrial fibrillation PREOPERATIVE DIAGNOSIS: Severe symptomatic sinus node dysfunction associated with syncope, transient high AV block, atrial fibrillation POSTOPERATIVE DIAGNOSIS: Dual-chamber permanent pacemaker was implanted. HISTORY: This is a 77-year-old lady who had cryptogenic stroke 3 weeks ago. Carotid ultrasound was normal. Echocardiogram was normal. Telemetry for over a week did not show any evidence of arrhythmia. Implantable loop recorder was done before discharge. Patient presented on 03/26/2018 with an episode of unresponsiveness in the nursing facility. Device interrogation showed atrial fibrillation for 54 minutes, transient high degree AV block, severe sinus node dysfunction with heart rate of 26 bpm. Dual-chamber permanent pacemaker was recommended. PROCEDURE PERFORMED: 1. Dual-chamber permanent pacemaker implantation. 2. Fluoroscopy. 3. Central venous access. 4. Implantable loop recorder explantation. ANESTHESIA: Local anesthesia, conscious sedation. COMPLICATIONS: None. ESTIMATED BLOOD LOSS:20 mL. SPECIMENS: None. ORAL ANTICOAGULATION: None. CONTRAST DOSE: 0. PROCEDURE DETAILS: The patient is a 77 female and after all of the patients questions were answered, the patient was brought to the EP Lab. The patient's left chest was prepped and draped in sterile fashion. A 2 inch horizontal incision was made 1 cm below the clavicle and dissection carried down to the pectoralis fascia. Using the modified Seldinger technique and under fluoroscopy guidance, the anterior aspect of the left axillary vein was accessed once. A 6 Estonian sheath was introduced over the J-wire. Another J-wire was inserted. The sheath was taken out and then placed over one of the J wires. The RV lead was then inserted. The RV lead was directed across the tricuspid valve to the apical septal portion of the right ventricle. The position was checked in CONGOLESE and BERNARD views. The screw was deployed and the lead connected to the engineering programmer. Close sensing and pacing thresholds were obtained. Diaphragmatic pacing was ruled out. The lead was secured with 2-0 silk ties to the underlying muscle and fascia. Next, a 6-Estonian sheath was introduced through the remaining J-wire. An atrial lead was then introduced and guided to the level of the right appendage. The screw was deployed and the lead was connected to the interrogator. Good sensing and pacing thresholds were obtained. Diaphragmatic pacing was ruled out. The leads were secured with 2-0 silk ties to the underlying muscle and fascia. The leads were connected to the device in a hermetic fashion. The device and leads were placed in the pocket. Aggressive irrigation with saline solution was done. The device was secured to the underlying muscle and fascia with a 2-0 silk tie. interrogation of the device revealed good integrity of all the leads and good connections. The wound was then closed using 2 layers. The first layer was interrupted 2-0 absorbable Vicryl suture. The last layer was a single subcuticular layer with 4- 0 Vicryl suture. Half inch Steri-Strips and a small dressing were then applied to the wound. Local anesthesia was given at the site of previous implantable loop recorder. An incision was made and the loop recorder was explanted. The patient tolerated the procedure well and was returned to the recovery room in stable condition with stable vital signs. DEVICE INFORMATION: [email or web address] Ed[place] [address] DR Rosario. Reference number 973648, serial number [id number], PID 27. RA LEAD: Solia S 53, [employer], reference number 382818, serial number [id number]. RV LEAD: Solia S 60, [employer], reference number 644001, serial number [id number]. PER-OPERATIVE DEVICE INTERROGATION: RA sensing 3.0 mV, impedance 501 ohms, threshold 2.3 V at 0.5 ms. RV sensing 8.7 mV, impedance 744 ohms, threshold 0.9 V at 0.5 ms. IMMEDIATE POSTOPERATIVE DEVICE INTERROGATION: RA sensing 3.4 mV, impedance 448 ohms, threshold 1.5 V at 0.4 ms. RV sensing 9.1 mV, impedance 780 ohms, threshold 0.7 V at 0.4 ms. DDDR [id number]. PAV 275 ms, MARCELO 250 ms. PLAN: The patient transferred to the ICU. We will continue with two more doses of IV antibiotics. We will check a chest x-ray and interrogate the device in the morning. The patient will continue on oral antibiotics for 5 days. Elgin Pozo MD, RS, CCDS Cardiac Electrophysiology [place] POZO MD Mar 30, 2018 09:55
[2018-03-30] MEDS ORDERED: PATIENT MAY USE OWN MEDS, ALL PO SCH (10:00)
[2018-03-30] MEDS ORDERED: VANCOMYCIN INJECTION 1,000 MG in NS (IVPB) 250 ML IV NR (11:00)
[2018-03-30] MEDS: lisINopril 10 MG (PRINIVIL) TABLET PO SCH (11:14)
[2018-03-30] MEDS: DOCUSATE SODIUM 100 MG (COLACE) CAP PO SCH ×2 (11:14→21:11)
[2018-03-30] MEDS: TELMISARTAN 40 MG (MICARDIS) TAB PO SCH (11:14)
[2018-03-30] MEDS: TOLTERODINE LA 2 MG (DETROL LA) CAP PO SCH (11:14)
--- NOTE | 2018-03-30 11:48 | Diagnostic Imaging Report ---
INDICATION: Status post pacemaker placement. Hypoxia. COMPARISON: 03/26/2018. Findings: Single frontal radiographic view of the chest was obtained and demonstrates interval placement of left-sided dual-lead pacemaker. No pneumothorax is seen on either side. Lungs show low inspiratory volumes and crowding of the central hilar structures and probable bibasilar atelectasis. There is no large effusion. Cardiac silhouette is also mildly prominent. IMPRESSION: 1. No pneumothorax status post left-sided pacemaker placement. 2. Low lung volumes with probable bibasilar atelectasis. 3. Persistent cardiomegaly. Dictated by: Dictated on workstation # [id number]
--- NOTE | 2018-03-30 12:59 | Progress Note (SOAP) ---
Subjective Time Seen by Provider: 12:50 Subjective/Events-last exam Patient feeling good this afternoon. Patient had surgery. Patient had dual-chamber pacemaker put in. Objective Exam Vital Signs Date Time Temp Pulse Resp B/P (MAP) Pulse Ox O2 Delivery O2 Flow Rate FiO2 03/30/18 11:45 96.0 74 20 127/72 (90) 97 Room Air 03/30/18 11:15 78 18 99/53 (68) 92 Room Air 03/30/18 11:00 68 16 110/65 (80) 94 Room Air 03/30/18 10:45 96.5 83 18 97/53 (68) 95 Room Air 03/30/18 10:30 85 16 117/78 (91) 93 Room Air 03/30/18 10:20 96.0 85 16 129/77 (94) 93 Room Air 03/30/18 09:00 93 Room Air 03/30/18 08:00 Room Air 03/30/18 08:00 96.3 60 20 123/53 (76) 100 Room Air 03/30/18 07:00 66 03/30/18 04:28 97.8 69 18 152/67 (95) 98 Room Air 03/30/18 04:19 Room Air 03/30/18 01:00 62 03/30/18 00:35 97.4 67 17 166/70 (102) 98 Room Air 03/30/18 00:00 Room Air 03/29/18 21:00 Room Air 03/29/18 19:38 97.9 80 20 169/72 (104) 100 Room Air 03/29/18 19:00 72 03/29/18 16:01 98.0 68 20 172/76 (108) 100 Room Air 03/29/18 13:00 68 I & O 03/30/18 07:00 Intake Total 1360 ml Output Total 1650 ml Balance -290 ml Capillary Refill : Less Than 3 Seconds General Appearance: No Apparent Distress, WD/WN Results Lab Laboratory Tests 03/29/18 17:55: White Blood Count 3.3L, Red Blood Count 3.28L, Hemoglobin 10.1L, Hematocrit 30L , Mean Corpuscular Volume 90, Mean Corpuscular Hemoglobin 31, Mean Corpuscular Hemoglobin Concent 34, Red Cell Distribution Width 14.8H, Platelet Count 109L, Mean Platelet Volume 10.1 03/30/18 06:32: White Blood Count 3.4L, Red Blood Count 3.30L, Hemoglobin 9.8L, Hematocrit 30L, Mean Corpuscular Volume 91, Mean Corpuscular Hemoglobin 30, Mean Corpuscular Hemoglobin Concent 33, Red Cell Distribution Width 15.0H, Platelet Count 121L, Mean Platelet Volume 10.2 Microbiology 03/28/18 MRSA Screen - Final, Complete MRSA not isolated Assessment/Plan Assessment/Plan Assess & Plan/Chief Complaint syncope. Sinus aaron dysfunction. Transient third-degree AV block. Atrial fibrillation. Patient have a pacemaker put in today. Loop to be taken out. Patient understands everything. Patient feeling good. . 03/30/18. Syncope. Transient third-degree AV block. Atrial fibrillation. Patient had pacemaker put in today since platelet count yesterday was 71. . 03/30/18. Syncope. Atrial fibrillation. Bradycardia. Transient third-degree AV block. Patient feeling good after surgery Clinical Quality Measures DVT/VTE Risk/Contraindication: Risk Factor Score Per Nursin RFS Level Per Nursing on Admit: 4+=Very High ADEN LEE DO Mar 30, 2018 12:59
[2018-03-30] MEDS: ATORVASTATIN 40 MG (LIPITOR) TABLET PO SCH (21:11)
--- NOTE | 2018-03-30 21:25 | Cardiology Progress Note ---
Cardiology SOAP Progress Note Subjective: Patient was seen in the afternoon. No cardiac complaints. Objective: I&O/Vital Signs 03/30/18 03/30/18 03/30/18 03/30/18 10:20 10:30 10:45 11:00 Temp 96.0 96.5 Pulse 85 85 83 68 Resp 16 16 18 16 B/P (MAP) 129/77 (94) 117/78 (91) 97/53 (68) 110/65 (80) Pulse Ox 93 93 95 94 O2 Delivery Room Air Room Air Room Air Room Air 03/30/18 03/30/18 03/30/18 03/30/18 11:15 11:45 12:00 13:00 Temp 96.0 Pulse 78 74 85 Resp 18 20 B/P (MAP) 99/53 (68) 127/72 (90) Pulse Ox 92 97 97 O2 Delivery Room Air Room Air Room Air 03/30/18 03/30/18 03/30/18 03/30/18 13:15 16:00 16:20 19:00 Temp 97.2 Pulse 73 67 69 Resp 20 20 B/P (MAP) 119/67 (84) 133/62 (85) Pulse Ox 95 95 96 O2 Delivery Room Air Room Air 03/30/18 19:45 Temp 97.0 Pulse 77 Resp 18 B/P (MAP) 129/62 (84) Pulse Ox 97 O2 Delivery Room Air 03/30/18 00:00 Intake Total 1360 ml Output Total 1650 ml Balance -290 ml Weight (Pounds): 277 Weight (Ounces): 3.0 Weight (Calculated Kilograms): 125.909255 Constitutional: appears stated age, AAO x 3; No apparent distress; well- developed, well-nourished Respiratory: No accessory muscle use, No respiratory distress, No chest tender , No chest expansion is symmetric; chest is bilaterally symmetric; No lungs clear to percussion; lungs clear to auscultation; No crackles, No rhonchi, No rales, No stridor, No wheezing, No pleural rub, No other Cardiovascular: regular rate-rhythm; No irregularly irregular, No extra beats, No parasternal heave is noted, No JVD, No edema, No bradycardia, No tachycardia , No point of maximal impulse, No cardiac thrills are palpable; S1 and S2; No gallop/S3, No gallop/S4, No diastolic murmur, No systolic murmur, No friction rub, No click, No other Gastrointestional: No tender, No soft, No round, No distended, No pulsatile mass, No organomegaly, No guarding, No rebound, No tenderness, No hernia, No mass, No audible bowel sounds, No abnormal bowel sounds, No abdominal bruits, No spleenomegaly, No other Extremities: No normal range of motion, No non-tender, No normal inspection, No pedal edema, No calf tenderness, No normal capillary refill, No pelvis stable , No calf tenderness, No inflammation, No pedal edema, No slow capillary refill , No swelling, No other, No abrasion, No clubbing, No cyanosis, No ecchymosis, No laceration, No no lower extremity edema bilateral, No significant edema, No tenderness, No wound Neurologic/Psychiatric: no motor/sensory deficits, alert, normal mood/affect, oriented x 3, power is 5/5 both on sides Skin: No normal color, No warm/dry, No cyanosis, No cool, No diaphoresis, No damp, No ecchymosis, No jaundice, No mottled, No pallor, No rash, No tattoos/ piercings, No ulcerations, No rash on exposed areas, No ulcerations on exposed areas, No other Results/Procedures: Labs Laboratory Tests 03/30/18 06:32: White Blood Count 3.4L, Red Blood Count 3.30L, Hemoglobin 9.8L, Hematocrit 30L, Mean Corpuscular Volume 91, Mean Corpuscular Hemoglobin 30, Mean Corpuscular Hemoglobin Concent 33, Red Cell Distribution Width 15.0H, Platelet Count 121L, Mean Platelet Volume 10.2 Microbiology 03/28/18 MRSA Screen - Final, Complete MRSA not isolated A/P: Assessment/Dx: Syncope, sinus node dysfunction, transient third-degree AV block, Atrial fibrillation, Thrombocytopenia Plan: Dual-chamber permanent pacemaker done this morning. Syncope likely due to severe sinus node dysfunction and transient third-degree AV block. Atrial fibrillation: Discontinue aspirin and Plavix. Start Eliquis in the morning. Thrombocytopenia: Platelet count 121,000. Hematology consultation is appreciated. Dr Elodia hernandez. The patient might require bone marrow biopsy in the near future to evaluate for pancytopenia. Thank you for your consultation. Please call me if you have any questions. Elgin Colvin MD, FACP, FACC, FSCAI, FHRS, CCDS Interventional Cardiology Cardiac Electrophysiology Vascular Medicine and Endovascular Interventions [place] COLVIN MD Mar 30, 2018 9:25 pm
[2018-03-31] VITALS: BP 143/68
[2018-03-31 04:19] VITALS: BP 142/61
[2018-03-31] MEDS: CATHETER FLUSH 10 ML SYR IV SCH (05:36)
[2018-03-31] MEDS: PANTOPRAZOLE 40 MG (PROTONIX) TAB PO SCH (05:36)
[2018-03-31 06:09] LABS: MEAN PLATELET VOLUME 10.5 FL (7.4-10.4); RED BLOOD COUNT 3.27 10^6/uL (4.35-5.85); RED CELL DISTRIBUTION WIDTH 14.9 % (10.0-14.5); WHITE BLOOD COUNT 4.4 10^3/uL (4.3-11.0)
[2018-03-31 06:27] LABS: ALANINE AMINOTRANSFERASE 22 U/L (0-55); ALBUMIN 2.6 GM/DL (3.2-4.5); ALKALINE PHOSPHATASE 65 U/L (40-136); BILIRUBIN,TOTAL 0.9 MG/DL (0.1-1.0); BUN/CREATININE RATIO 33; CALCIUM 8.2 MG/DL (8.5-10.1); CARBON DIOXIDE 24 MMOL/L (21-32); CHLORIDE 113 MMOL/L (98-107); CREATININE SERUM 0.66 MG/DL (0.60-1.30); GFR ESTIMATED > 60; GLUCOSE 134 MG/DL (70-105); SODIUM 143 MMOL/L (135-145); TOTAL PROTEIN 5.1 GM/DL (6.4-8.2)
--- NOTE | 2018-03-31 08:01 | Progress Note (SOAP) ---
Subjective Time Seen by Provider: 07:55 Subjective/Events-last exam Patient feeling good today. Yesterday had pacemaker put in defibrillator. Patient eating. Patient has no complaints Objective Exam Vital Signs Date Time Temp Pulse Resp B/P (MAP) Pulse Ox O2 Delivery O2 Flow Rate FiO2 03/31/18 07:26 79 03/31/18 04:19 97.7 73 20 142/61 (88) 98 Room Air 03/31/18 04:00 95 03/31/18 01:00 80 03/31/18 00:00 95 03/31/18 00:00 97.3 68 20 143/68 (93) 98 Room Air 03/30/18 21:41 93 Room Air 03/30/18 20:00 95 03/30/18 19:45 97.0 77 18 129/62 (84) 97 Room Air 03/30/18 19:00 69 03/30/18 16:20 97.2 67 20 133/62 (85) 96 Room Air 03/30/18 16:00 95 03/30/18 13:15 73 20 119/67 (84) 95 Room Air 03/30/18 13:00 85 03/30/18 12:00 97 Room Air 03/30/18 11:45 96.0 74 20 127/72 (90) 97 Room Air 03/30/18 11:15 78 18 99/53 (68) 92 Room Air 03/30/18 11:00 68 16 110/65 (80) 94 Room Air 03/30/18 10:45 96.5 83 18 97/53 (68) 95 Room Air 03/30/18 10:30 85 16 117/78 (91) 93 Room Air 03/30/18 10:20 96.0 85 16 129/77 (94) 93 Room Air 03/30/18 09:00 93 Room Air 03/30/18 08:00 Room Air 03/30/18 08:00 96.3 60 20 123/53 (76) 100 Room Air I & O 03/31/18 07:00 Intake Total 850 ml Output Total 100 ml Balance 750 ml Capillary Refill : Less Than 3 Seconds General Appearance: No Apparent Distress, WD/WN, Obese HEENT: Normal ENT Inspection Neck: Full Range of Motion, Normal Inspection Respiratory: No Accessory Muscle Use, No Respiratory Distress Cardiovascular: Regular Rate, Rhythm, No Murmur Gastrointestinal: non tender, soft Results Lab Laboratory Tests 03/31/18 05:59 Laboratory Tests 03/31/18 05:59: White Blood Count 4.4, Red Blood Count 3.27L, Hemoglobin 10.0L, Hematocrit 30L, Mean Corpuscular Volume 91, Mean Corpuscular Hemoglobin 31, Mean Corpuscular Hemoglobin Concent 34, Red Cell Distribution Width 14.9H, Platelet Count 108L, Mean Platelet Volume 10.5H, Sodium Level 143, Potassium Level 4.0, Chloride Level 113H, Carbon Dioxide Level 24, Anion Gap 6, Blood Urea Nitrogen 22H, Creatinine 0.66, Estimat Glomerular Filtration Rate > 60, BUN/Creatinine Ratio 33, Glucose Level 134H, Calcium Level 8.2L, Total Bilirubin 0.9, Aspartate Amino Transf (AST/SGOT) 24, Alanine Aminotransferase (ALT/SGPT) 22, Alkaline Phosphatase 65, Total Protein 5.1L, Albumin 2.6L Microbiology 03/28/18 MRSA Screen - Final, Complete MRSA not isolated Assessment/Plan Assessment/Plan Assess & Plan/Chief Complaint syncope. Sinus aaron dysfunction. Transient third-degree AV block. Atrial fibrillation. Patient have a pacemaker put in today. Loop to be taken out. Patient understands everything. Patient feeling good. . 03/30/18. Syncope. Transient third-degree AV block. Atrial fibrillation. Patient had pacemaker put in today since platelet count yesterday was 71. . 03/30/18. Syncope. Atrial fibrillation. Bradycardia. Transient third-degree AV block. Patient feeling good after surgery. . 03/31/18. Syncope resolved. Atrial fibrillation. Bradycardia. Transient third-degree AV block. Thrombocytopenia. Platelet count 108 Clinical Quality Measures DVT/VTE Risk/Contraindication: Risk Factor Score Per Nursin RFS Level Per Nursing on Admit: 4+=Very High ADEN LEE DO Mar 31, 2018 08:01
[2018-03-31] MEDS: lisINopril 10 MG (PRINIVIL) TABLET PO SCH (08:27)
[2018-03-31] MEDS: DOCUSATE SODIUM 100 MG (COLACE) CAP PO SCH (08:27)
[2018-03-31] MEDS: TOLTERODINE LA 2 MG (DETROL LA) CAP PO SCH (08:27)
[2018-03-31] MEDS: TELMISARTAN 40 MG (MICARDIS) TAB PO SCH (08:28)
[2018-03-31 08:31] VITALS: BP 157/75
[2018-03-31 12:00] VITALS: BP 173/70
--- NOTE | 2018-03-31 13:20 | Cardiology Progress Note ---
Cardiology SOAP Progress Note Subjective: No cardiac complaints. Objective: I&O/Vital Signs 03/31/18 03/31/18 03/31/18 03/31/18 04:00 04:19 07:26 08:31 Temp 97.7 98.6 Pulse 73 79 80 Resp 20 20 B/P (MAP) 142/61 (88) 157/75 (102) Pulse Ox 95 98 97 O2 Delivery Room Air Room Air 03/31/18 03/31/18 03/31/18 09:00 12:00 13:00 Temp 98.4 Pulse 71 67 Resp 20 B/P (MAP) 173/70 (104) Pulse Ox 97 O2 Delivery Room Air Room Air 03/31/18 00:00 Intake Total 800 ml Output Total 100 ml Balance 700 ml Weight (Pounds): 277 Weight (Ounces): 3.0 Weight (Calculated Kilograms): [id number] Side: left Device Insertion Site: without hematoma, no signs of inflammation Swelling: without swelling Drainage: No Constitutional: appears stated age, AAO x 3; No apparent distress; well- developed, well-nourished Respiratory: No accessory muscle use, No respiratory distress, No chest tender , No chest expansion is symmetric; chest is bilaterally symmetric; No lungs clear to percussion; lungs clear to auscultation; No crackles, No rhonchi, No rales, No stridor, No wheezing, No pleural rub, No other Cardiovascular: regular rate-rhythm; No irregularly irregular, No extra beats, No parasternal heave is noted, No JVD, No edema, No bradycardia, No tachycardia , No point of maximal impulse, No cardiac thrills are palpable; S1 and S2; No gallop/S3, No gallop/S4, No diastolic murmur, No systolic murmur, No friction rub, No click, No other Gastrointestional: No tender, No soft, No round, No distended, No pulsatile mass, No organomegaly, No guarding, No rebound, No tenderness, No hernia, No mass, No audible bowel sounds, No abnormal bowel sounds, No abdominal bruits, No spleenomegaly, No other Extremities: No normal range of motion, No non-tender, No normal inspection, No pedal edema, No calf tenderness, No normal capillary refill, No pelvis stable , No calf tenderness, No inflammation, No pedal edema, No slow capillary refill , No swelling, No other, No abrasion, No clubbing, No cyanosis, No ecchymosis, No laceration, No no lower extremity edema bilateral, No significant edema, No tenderness, No wound Neurologic/Psychiatric: no motor/sensory deficits, alert, normal mood/affect, oriented x 3, power is 5/5 both on sides Skin: No normal color, No warm/dry, No cyanosis, No cool, No diaphoresis, No damp, No ecchymosis, No jaundice, No mottled, No pallor, No rash, No tattoos/ piercings, No ulcerations, No rash on exposed areas, No ulcerations on exposed areas, No other Results/Procedures: Labs Laboratory Tests 03/31/18 05:59: White Blood Count 4.4, Red Blood Count 3.27L, Hemoglobin 10.0L, Hematocrit 30L, Mean Corpuscular Volume 91, Mean Corpuscular Hemoglobin 31, Mean Corpuscular Hemoglobin Concent 34, Red Cell Distribution Width 14.9H, Platelet Count 108L, Mean Platelet Volume 10.5H, Sodium Level 143, Potassium Level 4.0, Chloride Level 113H, Carbon Dioxide Level 24, Anion Gap 6, Blood Urea Nitrogen 22H, Creatinine 0.66, Estimat Glomerular Filtration Rate > 60, BUN/Creatinine Ratio 33, Glucose Level 134H, Calcium Level 8.2L, Total Bilirubin 0.9, Aspartate Amino Transf (AST/SGOT) 24, Alanine Aminotransferase (ALT/SGPT) 22, Alkaline Phosphatase 65, Total Protein 5.1L, Albumin 2.6L Microbiology 03/28/18 MRSA Screen - Final, Complete MRSA not isolated A/P: Assessment/Dx: Syncope, sinus node dysfunction, transient third-degree AV block, Atrial fibrillation, Thrombocytopenia Plan: Dual-chamber permanent pacemaker done. Normal device interrogation. Syncope likely due to severe sinus node dysfunction and transient third-degree AV block. Atrial fibrillation: Discontinue aspirin and Plavix. Eliquis to be started today. Thrombocytopenia: Platelet count 121,000. Hematology consultation is appreciated. Dr Elodia hernandez. The patient might require bone marrow biopsy in the near future to evaluate for pancytopenia. EP Follow-up as an outpatient in 7-10 days. Cardiology follow-up with Dr. Carbone. Thank you for your consultation. Please call me if you have any questions. Elgin Colvin MD, FACP, FACC, FSCAI, FHRS, CCDS Interventional Cardiology Cardiac Electrophysiology Vascular Medicine and Endovascular Interventions [place] COLVIN MD Mar 31, 2018 13:20
[2018-03-31] MEDS ORDERED: CLIN300C11 PO (13:22)
[2018-03-31] MEDS ORDERED: APIX5TAB PO (13:23)
--- NOTE | 2018-04-01 07:23 | Discharge Summary ---
Diagnosis/Chief Complaint Date of Admission Mar 29, 2018 at 11:29 Date of Discharge Mar 31, 2018 at 14:15 Discharge Date: Mar 31, 2018 Discharge Time: 07:05 Discharge Diagnosis Syncope. Complete AV block. Sinus node dysfunction. Transient third-degree AV block. Atrial fibrillation. Diabetes. Obesity. Body mass index 50-59.9. Bradycardia. Dysarthria. Dysphagia. Hypertension. Hyperlipidemia. Discharge Summary Procedures Cardiology with pacemaker Consultations Cardiology Discharge Physical Examination Allergies: Coded Allergies: Penicillins (Unverified Allergy, Unknown, 12/21/06) codeine (Unverified Allergy, Unknown, 12/21/06) aspirin (Verified Adverse Reaction, Unknown, NAUSEA, 10/07/16) Vitals & I&Os Vital Signs Date Time Temp Pulse Resp B/P (MAP) Pulse Ox O2 Delivery O2 Flow Rate FiO2 03/31/18 13:00 67 03/31/18 12:00 98.4 20 173/70 (104) 97 Room Air Hospital Course Patient on discharge feeling good. Patient talking well. Patient able to swallow well Labs (last 24 hrs) Laboratory Tests 03/26/18 08:17: White Blood Count 5.7, Red Blood Count 3.74L, Hemoglobin 11.0L, Hematocrit 33L, Mean Corpuscular Volume 88, Mean Corpuscular Hemoglobin 29, Mean Corpuscular Hemoglobin Concent 33, Red Cell Distribution Width 14.9H, Platelet Count 34*L, Mean Platelet Volume 10.6H, Neutrophils (%) (Auto) 81H, Lymphocytes (%) (Auto) 12, Monocytes (%) (Auto) 5, Eosinophils (%) (Auto) 2, Basophils (%) (Auto) 0, Neutrophils # (Auto) 4.6, Lymphocytes # (Auto) 0.7L, Monocytes # (Auto) 0.3, Eosinophils # (Auto) 0.1, Basophils # (Auto) 0.0, Sodium Level 141, Potassium Level 4.3, Chloride Level 110H, Carbon Dioxide Level 25, Anion Gap 6, Blood Urea Nitrogen 17, Creatinine 0.76, Estimat Glomerular Filtration Rate > 60, BUN/ Creatinine Ratio 22, Glucose Level 143H, Calcium Level 8.7, Magnesium Level 1.2L , Total Bilirubin 1.1H, Aspartate Amino Transf (AST/SGOT) 15, Alanine Aminotransferase (ALT/SGPT) 11, Alkaline Phosphatase 69, B-Type Natriuretic Peptide 68.1, Total Protein 5.4L, Albumin 2.9L 03/26/18 08:51: Urine Color YELLOW, Urine Clarity SLIGHTLY CLOUDY, Urine pH 5, Urine Specific [place] 1.015L, Urine Protein 1+H, Urine Glucose (UA) NEGATIVE, Urine Ketones NEGATIVE, Urine Nitrite NEGATIVE, Urine Bilirubin NEGATIVE, Urine Urobilinogen 1 , Urine Leukocyte Esterase 1+H, Urine RBC (Auto) NEGATIVE, Urine RBC NONE, Urine WBC RARE, Urine Squamous Epithelial Cells 2-5, Urine Crystals NONE, Urine Bacteria NEGATIVE, Urine Casts PRESENT, Urine Hyaline Casts 0-2H, Urine Mucus NEGATIVE, Urine Culture Indicated NO 03/26/18 17:21: White Blood Count 5.3, Red Blood Count 3.62L, Hemoglobin 10.6L, Hematocrit 32L, Mean Corpuscular Volume 88, Mean Corpuscular Hemoglobin 29, Mean Corpuscular Hemoglobin Concent 33, Red Cell Distribution Width 14.8H, Platelet Count 108L, Mean Platelet Volume 10.7H, Neutrophils (%) (Auto) 73, Lymphocytes (%) (Auto) 14 , Monocytes (%) (Auto) 10, Eosinophils (%) (Auto) 3, Basophils (%) (Auto) 0, Neutrophils # (Auto) 3.9, Lymphocytes # (Auto) 0.8L, Monocytes # (Auto) 0.5, Eosinophils # (Auto) 0.2, Basophils # (Auto) 0.0 03/27/18 07:21: Glucometer 143H 03/29/18 07:55: White Blood Count 3.3L, Red Blood Count 3.25L, Hemoglobin 10.0L, Hematocrit 29L , Mean Corpuscular Volume 91, Mean Corpuscular Hemoglobin 31, Mean Corpuscular Hemoglobin Concent 34, Red Cell Distribution Width 14.7H, Platelet Count 74L, Mean Platelet Volume 10.8H 03/29/18 08:07: Prothrombin Time 15.6H, INR Comment 1.2, Activated Partial Thromboplast Time 48H 03/29/18 17:55: White Blood Count 3.3L, Red Blood Count 3.28L, Hemoglobin 10.1L, Hematocrit 30L , Mean Corpuscular Volume 90, Mean Corpuscular Hemoglobin 31, Mean Corpuscular Hemoglobin Concent 34, Red Cell Distribution Width 14.8H, Platelet Count 109L, Mean Platelet Volume 10.1 03/30/18 06:32: White Blood Count 3.4L, Red Blood Count 3.30L, Hemoglobin 9.8L, Hematocrit 30L, Mean Corpuscular Volume 91, Mean Corpuscular Hemoglobin 30, Mean Corpuscular Hemoglobin Concent 33, Red Cell Distribution Width 15.0H, Platelet Count 121L, Mean Platelet Volume 10.2 03/31/18 05:59: White Blood Count 4.4, Red Blood Count 3.27L, Hemoglobin 10.0L, Hematocrit 30L, Mean Corpuscular Volume 91, Mean Corpuscular Hemoglobin 31, Mean Corpuscular Hemoglobin Concent 34, Red Cell Distribution Width 14.9H, Platelet Count 108L, Mean Platelet Volume 10.5H, Sodium Level 143, Potassium Level 4.0, Chloride Level 113H, Carbon Dioxide Level 24, Anion Gap 6, Blood Urea Nitrogen 22H, Creatinine 0.66, Estimat Glomerular Filtration Rate > 60, BUN/Creatinine Ratio 33, Glucose Level 134H, Calcium Level 8.2L, Total Bilirubin 0.9, Aspartate Amino Transf (AST/SGOT) 24, Alanine Aminotransferase (ALT/SGPT) 22, Alkaline Phosphatase 65, Total Protein 5.1L, Albumin 2.6L Microbiology 03/28/18 MRSA Screen - Final, Complete MRSA not isolated Laboratory Tests 03/26/18 08:17 03/26/18 17:21 03/29/18 07:55 03/29/18 17:55 03/30/18 06:32 03/31/18 05:59 Pending Labs Microbiology Date/Time Source Procedure Growth Status 03/28/18 17:36 Nasal MRSA Screen - Final MRSA not isolated Complete Laboratory Tests 03/26/18 08:17: White Blood Count 5.7, Red Blood Count 3.74, Hemoglobin 11.0, Hematocrit 33, Mean Corpuscular Volume 88, Mean Corpuscular Hemoglobin 29, Mean Corpuscular Hemoglobin Concent 33, Red Cell Distribution Width 14.9, Platelet Count 34, Mean Platelet Volume 10.6, Neutrophils (%) (Auto) 81, Lymphocytes (%) (Auto) 12 , Monocytes (%) (Auto) 5, Eosinophils (%) (Auto) 2, Basophils (%) (Auto) 0, Neutrophils # (Auto) 4.6, Lymphocytes # (Auto) 0.7, Monocytes # (Auto) 0.3, Eosinophils # (Auto) 0.1, Basophils # (Auto) 0.0, Sodium Level 141, Potassium Level 4.3, Chloride Level 110, Carbon Dioxide Level 25, Anion Gap 6, Blood Urea Nitrogen 17, Creatinine 0.76, Estimat Glomerular Filtration Rate > 60, BUN/ Creatinine Ratio 22, Glucose Level 143, Calcium Level 8.7, Magnesium Level 1.2, Total Bilirubin 1.1, Aspartate Amino Transf (AST/SGOT) 15, Alanine Aminotransferase (ALT/SGPT) 11, Alkaline Phosphatase 69, B-Type Natriuretic Peptide 68.1, Total Protein 5.4, Albumin 2.9 03/26/18 08:51: Urine Color YELLOW, Urine Clarity SLIGHTLY CLOUDY, Urine pH 5, Urine Specific [place] 1.015, Urine Protein 1+, Urine Glucose (UA) NEGATIVE, Urine Ketones NEGATIVE, Urine Nitrite NEGATIVE, Urine Bilirubin NEGATIVE, Urine Urobilinogen 1 , Urine Leukocyte Esterase 1+, Urine RBC (Auto) NEGATIVE, Urine RBC NONE, Urine WBC RARE, Urine Squamous Epithelial Cells 2-5, Urine Crystals NONE, Urine Bacteria NEGATIVE, Urine Casts PRESENT, Urine Hyaline Casts 0-2, Urine Mucus NEGATIVE, Urine Culture Indicated NO 03/26/18 17:21: White Blood Count 5.3, Red Blood Count 3.62, Hemoglobin 10.6, Hematocrit 32, Mean Corpuscular Volume 88, Mean Corpuscular Hemoglobin 29, Mean Corpuscular Hemoglobin Concent 33, Red Cell Distribution Width 14.8, Platelet Count 108, Mean Platelet Volume 10.7, Neutrophils (%) (Auto) 73, Lymphocytes (%) (Auto) 14 , Monocytes (%) (Auto) 10, Eosinophils (%) (Auto) 3, Basophils (%) (Auto) 0, Neutrophils # (Auto) 3.9, Lymphocytes # (Auto) 0.8, Monocytes # (Auto) 0.5, Eosinophils # (Auto) 0.2, Basophils # (Auto) 0.0 03/27/18 07:21: Glucometer 143 03/29/18 07:55: White Blood Count 3.3, Red Blood Count 3.25, Hemoglobin 10.0, Hematocrit 29, Mean Corpuscular Volume 91, Mean Corpuscular Hemoglobin 31, Mean Corpuscular Hemoglobin Concent 34, Red Cell Distribution Width 14.7, Platelet Count 74, Mean Platelet Volume 10.8 03/29/18 08:07: Prothrombin Time 15.6, INR Comment 1.2, Activated Partial Thromboplast Time 48 03/29/18 17:55: White Blood Count 3.3, Red Blood Count 3.28, Hemoglobin 10.1, Hematocrit 30, Mean Corpuscular Volume 90, Mean Corpuscular Hemoglobin 31, Mean Corpuscular Hemoglobin Concent 34, Red Cell Distribution Width 14.8, Platelet Count 109, Mean Platelet Volume 10.1 03/30/18 06:32: White Blood Count 3.4, Red Blood Count 3.30, Hemoglobin 9.8, Hematocrit 30, Mean Corpuscular Volume 91, Mean Corpuscular Hemoglobin 30, Mean Corpuscular Hemoglobin Concent 33, Red Cell Distribution Width 15.0, Platelet Count 121, Mean Platelet Volume 10.2 03/31/18 05:59: White Blood Count 4.4, Red Blood Count 3.27, Hemoglobin 10.0, Hematocrit 30, Mean Corpuscular Volume 91, Mean Corpuscular Hemoglobin 31, Mean Corpuscular Hemoglobin Concent 34, Red Cell Distribution Width 14.9, Platelet Count 108, Mean Platelet Volume 10.5, Sodium Level 143, Potassium Level 4.0, Chloride Level 113, Carbon Dioxide Level 24, Anion Gap 6, Blood Urea Nitrogen 22, Creatinine 0.66, Estimat Glomerular Filtration Rate > 60, BUN/Creatinine Ratio 33, Glucose Level 134, Calcium Level 8.2, Total Bilirubin 0.9, Aspartate Amino Transf (AST/SGOT) 24, Alanine Aminotransferase (ALT/SGPT) 22, Alkaline Phosphatase 65, Total Protein 5.1, Albumin 2.6 Discharge Home Medications: Active Scripts Active Eliquis (Apixaban) 5 Mg Tablet 5 Mg PO BID 30 Days TAKE 2 TABLETS BID X 7 DAYS, THEN 1 TABLET BID Clindamycin HCl 300 Mg Capsule 300 Mg PO TID 5 Days Reported Lisinopril 10 Mg Tablet 10 Mg PO DAILY Atorvastatin Calcium 40 Mg Tablet 40 Mg PO HS Toviaz (Fesoterodine Fumarate) 4 Mg Tab.sr.24h 4 Mg PO DAILY Omeprazole 40 Mg Capsule.dr 40 Mg PO DAILY Micardis (Telmisartan) 80 Mg Tablet 80 Mg PO DAILY Metformin HCl 500 Mg Tablet 500 Mg PO BID Fish Oil 1,200 mg Fish Oil (Fish Oil/Dha/Epa) 1 Each Capsule 1,200 Mg PO BID Ocuvite Adult 50 Plus Softgel (C,E,Zinc,Copper 11/[id number]/Lut) 1 Each Capsule 1 Cap PO DAILY Instructions to patient/family Please see electronic discharge instructions given to patient. Clinical Quality Measures DVT/VTE Risk/Contraindication: Risk Factor Score Per Nursin RFS Level Per Nursing on Admit: 4+=Very High ADEN LEE DO Apr 01, 2018 07:23
--- OUTSIDE RECORDS SUMMARY | 2018-04-03 04:11 | XMS REPORT | Continuity of Care Document ---
Author Author [facility] Organization [facility] Address Unknown Phone Unavailable Allergies Active Description Code Type Severity Reaction Onset Reported/Identified Relationship to Patient Clinical Status Yes codeine [id number] Drug Allergy Unknown N/A 12/21/2006 Yes Penicillins [id number] Drug Allergy Unknown N/A 12/21/2006 Yes aspirin [id number] Drug Allergy Unknown NAUSEA 10/07/2016 Medications There [...] DO Ot V57.1 PHYSICAL THERAPY NEC 06/22/2013 IOAAN TARIQ DO Ot 715.91 OSTEOARTHROS NOS-SHLDER 06/22/2013 IOANA TARIQ DO Ot 721.0 CERVICAL SPONDYLOSIS 06/22/2013 IOANA TARIQ DO Ot V57.1 PHYSICAL THERAPY NEC 08/13/2013 PROSPER FOWLER, AMADOR Rosario Ot 786.59 CHEST PAIN NEC 08/18/2013 IOANA TARIQ DO Ot 721.0 CERVICAL SPONDYLOSIS 08/18/2013 IOANA TARIQ DO Ot V57.1 PHYSICAL THERAPY NEC 07/26/2014 ADEN LEE DO Ot V76.12 09/19/2014 BAIREBEL JC L LEAD JAVA PROGRAMMER Ot 250.00 09/19/2014 BAIMA, REBEL L LEAD JAVA PROGRAMMER Ot 272.4 09/19/2014 BAIHOSEA, REBEL L LEAD JAVA PROGRAMMER Ot 401.9 02/27/2015 BAIHOSEA, REBEL L LEAD JAVA PROGRAMMER Ot 250.00 02/27/2015 BAIMA, REBEL L LEAD JAVA PROGRAMMER Ot 272.4 02/27/2015 BAIHOSEA, REBEL L LEAD JAVA PROGRAMMER Ot 401.9 02/27/2015 Ot 250.00 02/27/2015 BIJU, REBEL L LEAD JAVA PROGRAMMER Ot 272.4 02/27/2015 ADEN LEE DO Ot [...] 02/27/2015 REANNA FOWLER, BRUCE Rao Ot V06.1 [id number], COMBINED [ 03/06/2015 AJITH FOWLER, LATASHA Hummel [...] 575.8 07/04/2015 Ot 789.01 07/04/2015 REBEL IVY LEAD JAVA PROGRAMMER Ot 272.4 07/04/2015 REBEL IVY LEAD JAVA PROGRAMMER Ot 401.9 07/04/2015 REBEL IVY LEAD JAVA PROGRAMMER Ot V58.69 07/04/2015 GELLENDER DO, ADEN Mohr Ot 786.50 07/04/2015 GELLENDER DO, ADEN Mohr Ot V76.12 07/04/2015 GELLENDER DO, ADEN Mohr Ot 250.00 07/04/2015 GELLENDER DO, ADEN A Ot 272.4 07/04/2015 CHANDNI DO, IOANA Mai Ot 721.0 07/04/2015 BAIMA, REBEL L LEAD JAVA PROGRAMMER Ot 397.0 07/04/2015 BAIMA, REBEL L LEAD JAVA PROGRAMMER Ot 416.8 07/04/2015 BAIMA, REBEL L LEAD JAVA PROGRAMMER Ot 424.0 07/04/2015 BAIMA, REBEL L LEAD JAVA PROGRAMMER Ot 272.4 07/04/2015 BAIMA, REBEL L LEAD JAVA PROGRAMMER Ot V58.69 07/04/2015 GELLENDER DO, ADEN Mohr Ot 786.50 07/04/2015 GELLENDER DO, ADEN Mohr Ot V15.88 07/04/2015 BAIMA, REBEL L LEAD JAVA PROGRAMMER Ot 272.4 07/04/2015 GELLENDER DO, ADEN Mohr Ot 250.00 07/04/2015 GELLENDER DO, ADEN Mohr Ot 401.9 07/04/2015 GELLENDER DO, ADEN Mohr Ot V76.12 07/04/2015 BAIMA, REBEL L LEAD JAVA PROGRAMMER Ot 250.00 07/04/2015 BAIMA, REBEL L LEAD JAVA PROGRAMMER Ot 272.4 07/04/2015 BAIMA, REBEL L LEAD JAVA PROGRAMMER Ot 401.9 07/04/2015 Ot 250.00 07/04/2015 BAIMA, REBEL L LEAD JAVA PROGRAMMER Ot 272.4 07/04/2015 GELLENDER DO, ADEN Mohr [...] Ot D69.6 THROMBOCYTOPENIA, UNSPECIFIED 05/22/2016 GELLENDER DO, AEDN Mohr Ot D72.819 DECREASED WHITE BLOOD CELL [...] RIGHT UPPER QUADRANT 07/04/2016 BAIMA REBEL L LEAD JAVA PROGRAMMER Ot 272.4 HYPERLIPIDEMIA NEC/NOS 07/04/2016 BAIMA, REBEL L LEAD JAVA PROGRAMMER Ot 401.9 HYPERTENSION NOS 07/04/2016 BAIMA, REBEL L LEAD JAVA PROGRAMMER Ot V58.69 OTH MED,LT,CURRENT USE 07/04/2016 ADEN LEE DO Ot 786.50 CHEST PAIN NOS 07/04/2016 ADEN LEE DO Ot V76.12 OTH SCREEN MAMMO-MALIGN NEOPLASM OF VAN 07/04/2016 ADEN LEE DO Ot 250.00 DIAB BHAVIK WO COMPL, TYPE II OR UNSPEC TY 07/04/2016 ADEN LEE DO Ot 272.4 HYPERLIPIDEMIA NEC/NOS 07/04/2016 IOANA TARIQ DO Ot 721.0 CERVICAL SPONDYLOSIS 07/04/2016 BAIMA, REBEL L LEAD JAVA PROGRAMMER Ot 397.0 TRICUSPID VALVE DISEASE 07/04/2016 BAIMA, REBEL L LEAD JAVA PROGRAMMER Ot 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 NEC 07/04/2016 BAIMA, REBEL L LEAD JAVA PROGRAMMER Ot 424.0 MITRAL VALVE DISORDER 07/04/2016 BAIMA, REBEL L LEAD JAVA PROGRAMMER Ot 272.4 HYPERLIPIDEMIA NEC/NOS 07/04/2016 BAIMA, REBEL L LEAD JAVA PROGRAMMER Ot V58.69 OTH MED,LT,CURRENT USE 07/04/2016 JESUS KATEADEN Ot 786.50 CHEST PAIN NOS 07/04/2016 JESUS KATEADEN Ot V15.88 HISTORY OF FALL 07/04/2016 LEANDROHOSEAREBEL LEAD JAVA PROGRAMMER Ot 272.4 HYPERLIPIDEMIA NEC/NOS 07/04/2016 JESUS KATE, ADEN Mohr Ot 250.00 DIAB BHAVIK WO COMPL, TYPE II OR UNSPEC TY 07/04/2016 JESUS ADEN KATE Ot 401.9 HYPERTENSION NOS 07/04/2016 JESUS ADEN KATE Ot V76.12 OTH SCREEN MAMMO-MALIGN NEOPLASM OF VAN 07/04/2016 REBEL IVY L LEAD JAVA PROGRAMMER Ot 250.00 DIAB BHAVIK WO COMPL, TYPE II OR UNSPEC TY 07/04/2016 REBEL IVY L LEAD JAVA PROGRAMMER Ot 272.4 HYPERLIPIDEMIA NEC/NOS 07/04/2016 REBEL IVY L LEAD JAVA PROGRAMMER Ot 401.9 HYPERTENSION NOS 07/04/2016 Ot 250.00 DIAB BHAVIK WO COMPL, TYPE II OR UNSPEC TY 07/04/2016 REBEL IVY L LEAD JAVA PROGRAMMER Ot 272.4 HYPERLIPIDEMIA NEC/NOS 07/04/2016 JESUS KATE [...] STRIKE 10/07/2016 AMADOR CHENG MD Ot Y92.[address] [facility] [address] IN [facility] NON-[facility] (PRIVATE 10/07/2016 AMADOR CHENG MD Ot Y99.8 OTHER EXTERNAL CAUSE STATUS 10/07/2016 AMADOR CHENG MD Ot Z79.84 [facility] (CURRENT) USE OF ORAL HYPOGLYC 10/07/2016 AMADOR CHENG MD, Ot Z79.899 OTHER [facility] (CURRENT) DRUG THERAPY 10/07/2016 AMADOR CHENG MD [...] RIGHT UPPER QUADRANT 10/07/2016 BAIMA, REBEL L LEAD JAVA PROGRAMMER Ot 272.4 HYPERLIPIDEMIA NEC/NOS 10/07/2016 BAIMA, REBEL L LEAD JAVA PROGRAMMER Ot 401.9 HYPERTENSION NOS 10/07/2016 BAIMA, REBEL L LEAD JAVA PROGRAMMER Ot V58.69 OTH MED,LT,CURRENT USE 10/07/2016 ADEN LEE DO Ot 786.50 CHEST PAIN NOS 10/07/2016 ADEN LEE DO Ot V76.12 OTH SCREEN MAMMO-MALIGN NEOPLASM OF VAN 10/07/2016 GELLENDER DO, ADEN Mohr Ot 250.00 DIAB BHAVIK WO COMPL, TYPE II OR UNSPEC TY 10/07/2016 GELLENDER DO, ADEN Mohr Ot 272.4 HYPERLIPIDEMIA NEC/NOS 10/07/2016 IOANA TARIQ DO Ot 721.0 CERVICAL SPONDYLOSIS 10/07/2016 BAIMA REBEL L LEAD JAVA PROGRAMMER Ot 397.0 TRICUSPID VALVE DISEASE 10/07/2016 BAIMA, REBEL L LEAD JAVA PROGRAMMER Ot 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 NEC 10/07/2016 BAIMA, REBEL L LEAD JAVA PROGRAMMER Ot 424.0 MITRAL VALVE DISORDER 10/07/2016 BAIMA REBEL L LEAD JAVA PROGRAMMER Ot 272.4 HYPERLIPIDEMIA NEC/NOS 10/07/2016 BAIMA REBEL L LEAD JAVA PROGRAMMER Ot V58.69 OT MED,LT,CURRENT USE 10/07/2016 GELLENDER DO, ADEN Mohr Ot 786.50 CHEST PAIN NOS 10/07/2016 GELLENDER DO, ADEN Mohr Ot V15.88 HISTORY OF FALL 10/07/2016 REBEL IVY L LEAD JAVA PROGRAMMER Ot 272.4 HYPERLIPIDEMIA NEC/NOS 10/07/2016 GELLENDER DO, ADEN Mohr Ot 250.00 DIAB BHAVIK WO COMPL, TYPE II OR UNSPEC TY 10/07/2016 GELLENDER DO, ADEN Mohr Ot 401.9 HYPERTENSION NOS 10/07/2016 GELLENDER DO, ADEN Mohr Ot V76.12 OTH SCREEN MAMMO-MALIGN NEOPLASM OF VAN 10/07/2016 BAIMA REBEL L LEAD JAVA PROGRAMMER Ot 250.00 DIAB BHAVIK WO COMPL, TYPE II OR UNSPEC TY 10/07/2016 BAIREBEL JC L LEAD JAVA PROGRAMMER Ot 272.4 HYPERLIPIDEMIA NEC/NOS 10/07/2016 BAIMA REBEL L LEAD JAVA PROGRAMMER Ot 401.9 HYPERTENSION NOS 10/07/2016 Ot 250.00 DIAB BHAVIK WO COMPL, TYPE II OR UNSPEC TY 10/07/2016 BAIHOSEA REBEL L LEAD JAVA PROGRAMMER Ot 272.4 HYPERLIPIDEMIA NEC/NOS 10/07/2016 GELLENDER DO, ADEN Mohr Ot 250.00 DIAB BHAVIK WO COMPL, TYPE II OR UNSPEC TY 10/07/2016 GELLENDER DO, ADEN Mohr Ot 401.9 HYPERTENSION NOS 10/07/2016 NNIILENDER DO, ADEN Mohr Ot 782.3 EDEMA 10/07/2016 [...] CHENG MD, Ot Y92.[address] [facility] (PRIVATE 10/08/2016 AMADOR CHENG MD, Ot Y99.8 OTHER EXTERNAL CAUSE STATUS 10/08/2016 PROSPER FOWLER, AMADOR Rosario Ot Z79.84 [facility] (CURRENT) USE OF ORAL HYPOGLYC 10/08/2016 PROSPER FOWLER, AMADOR Rosario Ot Z79.899 OTHER [facility] (CURRENT) DRUG THERAPY 10/08/2016 PROSPER FOWLER, AMADOR Rosario Ot Z96.653 PRESENCE OF ARTIFICIAL KNEE JOINT, BILAT 10/09/2016 BAIMA, REBEL L LEAD JAVA PROGRAMMER Ot 250.00 DIAB BHAVIK WO COMPL, TYPE II OR UNSPEC TY 10/09/2016 BAIMA, REBEL L LEAD JAVA PROGRAMMER Ot 272.4 HYPERLIPIDEMIA NEC/NOS 10/09/2016 BAIMA, REBEL L LEAD JAVA PROGRAMMER Ot 401.9 HYPERTENSION NOS 10/09/2016 Ot 250.00 DIAB BHAVIK WO COMPL, TYPE II OR UNSPEC TY 10/09/2016 BAIMA, REBEL L LEAD JAVA PROGRAMMER Ot 272.4 HYPERLIPIDEMIA NEC/NOS 10/09/2016 GELLENDER DO, [...] Mohr Ot I10 ESSENTIAL (PRIMARY) HYPERTENSION 01/20/2017 [facility] ADEN Mohr Ot D69.6 [...] VALVERDE APRN Ot Y92.[address] [facility] PLACE 07/26/2017 TWYLA VALVERDE APRN Ot Z79.84 [facility] (CURRENT) USE OF ORAL HYPOGLYC 07/26/2017 TWYLA [...] RIGHT UPPER QUADRANT 07/26/2017 BAIMA, REBEL L LEAD JAVA PROGRAMMER Ot 272.4 HYPERLIPIDEMIA NEC/NOS 07/26/2017 BAIHOSEA, REBEL L LEAD JAVA PROGRAMMER Ot 401.9 HYPERTENSION NOS 07/26/2017 LEANDROMA, REBEL L LEAD JAVA PROGRAMMER Ot V58.69 OTH MED,LT,CURRENT USE 07/26/2017 ADEN LEE DO Ot 786.50 CHEST PAIN NOS 07/26/2017 ADEN LEE DO Ot V76.12 OTH SCREEN MAMMO-MALIGN NEOPLASM OF VAN 07/26/2017 ADEN LEE DO Ot 250.00 DIAB BHAVIK WO COMPL, TYPE II OR UNSPEC TY 07/26/2017 ADEN LEE DO Ot 272.4 HYPERLIPIDEMIA NEC/NOS 07/26/2017 IOANA TARIQ DO Ot 721.0 CERVICAL SPONDYLOSIS 07/26/2017 BAIMA, ERBEL L LEAD JAVA PROGRAMMER Ot 397.0 TRICUSPID VALVE DISEASE 07/26/2017 BAIMA, REBEL L LEAD JAVA PROGRAMMER Ot 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 NEC 07/26/2017 BAIMA, REBEL L LEAD JAVA PROGRAMMER Ot 424.0 MITRAL VALVE DISORDER 07/26/2017 BAIMA, REBEL L LEAD JAVA PROGRAMMER Ot 272.4 HYPERLIPIDEMIA NEC/NOS 07/26/2017 LEANDROMA REBEL L LEAD JAVA PROGRAMMER Ot V58.69 OTH MED,LT,CURRENT USE 07/26/2017 ADEN LEE DO Ot 786.50 CHEST PAIN NOS 07/26/2017 ADEN LEE DO Ot V15.88 HISTORY OF FALL 07/26/2017 BIJU REBEL L LEAD JAVA PROGRAMMER Ot 272.4 HYPERLIPIDEMIA NEC/NOS 07/26/2017 ADEN LEE DO Ot 250.00 DIAB BHAVIK WO COMPL, TYPE II OR UNSPEC TY 07/26/2017 JESUS KATE ADEN Fani Ot 401.9 HYPERTENSION NOS 07/26/2017 ADEN LEE DO Ot V76.12 OTH SCREEN MAMMO-MALIGN NEOPLASM OF VAN 07/26/2017 BAIMA, REBEL L LEAD JAVA PROGRAMMER Ot 250.00 DIAB BHAVIK WO COMPL, TYPE II OR UNSPEC TY 07/26/2017 BAIMA, REBEL L LEAD JAVA PROGRAMMER Ot 272.4 HYPERLIPIDEMIA NEC/NOS 07/26/2017 BAIMA, REBEL L LEAD JAVA PROGRAMMER Ot 401.9 HYPERTENSION NOS 07/26/2017 Ot 250.00 DIAB BHAVIK WO COMPL, TYPE II OR UNSPEC TY 07/26/2017 BAIMA, REBEL L LEAD JAVA PROGRAMMER Ot 272.4 HYPERLIPIDEMIA NEC/NOS 07/26/2017 GELLENDER DO, [...] RIGHT UPPER QUADRANT 09/10/2017 REBEL IVY L LEAD JAVA PROGRAMMER Ot 272.4 HYPERLIPIDEMIA NEC/NOS 09/10/2017 BAIMA, REBEL L LEAD JAVA PROGRAMMER Ot 401.9 HYPERTENSION NOS 09/10/2017 BIJU REBEL L LEAD JAVA PROGRAMMER Ot V58.69 OTH MED,LT,CURRENT USE 09/10/2017 ADEN [...] 721.0 CERVICAL SPONDYLOSIS 09/10/2017 LEANDROMA, REBEL L LEAD JAVA PROGRAMMER Ot 397.0 TRICUSPID VALVE DISEASE 09/10/2017 LEANDROMA, REBEL L LEAD JAVA PROGRAMMER Ot 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 NEC 09/10/2017 BAIHOSEA, REBEL L LEAD JAVA PROGRAMMER Ot 424.0 MITRAL VALVE DISORDER 09/10/2017 BAIMA, REBEL L LEAD JAVA PROGRAMMER Ot 272.4 HYPERLIPIDEMIA NEC/NOS 09/10/2017 BIJU REBEL L LEAD JAVA PROGRAMMER Ot V58.69 OTH MED,LT,CURRENT USE 09/10/2017 GELLENDER DO, ADEN Fani Ot 786.50 CHEST PAIN NOS 09/10/2017 GELLENDER DO, ADEN Mohr Ot V15.88 HISTORY OF FALL 09/10/2017 BAIMAREBEL L LEAD JAVA PROGRAMMER Ot 272.4 HYPERLIPIDEMIA NEC/NOS 09/10/2017 GELLENDER DO, ADEN Fani Ot 250.00 DIAB BHAVIK WO COMPL, TYPE II OR UNSPEC TY 09/10/2017 GELLENDER DO, ADEN Mohr Ot 401.9 HYPERTENSION NOS 09/10/2017 GELLENDER DO, ADEN Mohr Ot V76.12 OTH SCREEN MAMMO-MALIGN NEOPLASM OF VAN 09/10/2017 BAIMA, REBEL L LEAD JAVA PROGRAMMER Ot 250.00 DIAB BHAVIK WO COMPL, TYPE II OR UNSPEC TY 09/10/2017 BAIMA, REBEL L LEAD JAVA PROGRAMMER Ot 272.4 HYPERLIPIDEMIA NEC/NOS 09/10/2017 BAIMA, REBEL L LEAD JAVA PROGRAMMER Ot 401.9 HYPERTENSION NOS 09/10/2017 Ot 250.00 DIAB BHAVIK WO COMPL, TYPE II OR UNSPEC TY 09/10/2017 BAIMA REBEL L LEAD JAVA PROGRAMMER Ot 272.4 HYPERLIPIDEMIA NEC/NOS 09/10/2017 GELLENDER DO, [...] Ot E78.5 HYPERLIPIDEMIA, UNSPECIFIED 09/10/2017 GELLENDER DO, DAEN Mohr Ot E11.9 TYPE 2 DIABETES MELLITUS [...] Ot E78.00 PURE HYPERCHOLESTEROLEMIA, UNSPECIFIED 10/18/2017 FAINAERIN Boalnos Ot I10 ESSENTIAL (PRIMARY) HYPERTENSION 10/18/2017 ERIN EISENBERGP Ot K21.9 GASTRO-ESOPHAGEAL REFLUX DISEASE WITHOUT 10/18/2017 ERIN EISENBERG Ot S09.90XA UNSPECIFIED INJURY OF HEAD, INITIAL ENCO 10/18/2017 ERIN EISENBERGP Ot W01.10XA FALL SAME LEV FROM SLIP/TRIP W STRIKE AG 10/18/2017 ERIN EISENBERGP Ot Z68.41 BODY MASS INDEX (BMI) 40.0-44.9, ADULT 10/18/2017 ERIN EISENBERGP Ot Z79.84 SECURITY OFFICERS AND GUARDS (CURRENT) USE OF ORAL HYPOGLYC 10/18/2017 ERIN EISENBERG LEAD JAVA PROGRAMMER Ot Z86.718 PERSONAL HISTORY OF OTHER VENOUS THROMBO 10/18/2017 ERIN EISENBERG LEAD JAVA PROGRAMMER Ot Z88.0 ALLERGY STATUS TO PENICILLIN 10/18/2017 FAINA ERIN LEAD JAVA PROGRAMMER Ot Z88.5 ALLERGY STATUS TO NARCOTIC AGENT STATUS 10/18/2017 ERIN EISENBERG LEAD JAVA PROGRAMMER Ot Z88.6 ALLERGY STATUS TO ANALGESIC AGENT [...] PAIN, RIGHT UPPER QUADRANT 10/18/2017 REBEL IVY LEAD JAVA PROGRAMMER Ot 272.4 HYPERLIPIDEMIA NEC/NOS 10/18/2017 REBEL IVY LEAD JAVA PROGRAMMER Ot 401.9 HYPERTENSION NOS 10/18/2017 REBEL IVY LEAD JAVA PROGRAMMER Ot V58.69 OTH MED,LT,CURRENT USE 10/18/2017 ADEN LEE DO Ot 786.50 CHEST PAIN NOS 10/18/2017 ADEN LEE DO Ot V76.12 OTH SCREEN MAMMO-MALIGN NEOPLASM OF VAN 10/18/2017 ADEN LEE DO Ot 250.00 DIAB BHAVIK WO COMPL, TYPE II OR UNSPEC TY 10/18/2017 ADEN LEE DO Ot 272.4 HYPERLIPIDEMIA NEC/NOS 10/18/2017 CHANDNI IOANA Mai Ot 721.0 CERVICAL SPONDYLOSIS 10/18/2017 REBEL IVY LEAD JAVA PROGRAMMER Ot 397.0 TRICUSPID VALVE DISEASE 10/18/2017 REBEL IVY L LEAD JAVA PROGRAMMER Ot 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 NEC 10/18/2017 BAIREBEL JC LEAD JAVA PROGRAMMER Ot 424.0 MITRAL VALVE DISORDER 10/18/2017 BAIREBEL JC L LEAD JAVA PROGRAMMER Ot 272.4 HYPERLIPIDEMIA NEC/NOS 10/18/2017 BAIREBEL JC L LEAD JAVA PROGRAMMER Ot V58.69 OTH MED,LT,CURRENT USE 10/18/2017 NINILENDER , ADEN Mohr Ot 786.50 CHEST PAIN NOS 10/18/2017 GELLENDER DO, ADEN Mohr Ot V15.88 HISTORY OF FALL 10/18/2017 REBEL IVY L LEAD JAVA PROGRAMMER Ot 272.4 HYPERLIPIDEMIA NEC/NOS 10/18/2017 GELLENDER DO, ADEN Mohr Ot 250.00 DIAB BHAVIK WO COMPL, TYPE II OR UNSPEC TY 10/18/2017 GELLENDER DO, ADEN Mohr Ot 401.9 HYPERTENSION NOS 10/18/2017 GELLENDER DO, ADEN Mohr Ot V76.12 OTH SCREEN MAMMO-MALIGN NEOPLASM OF VAN 10/18/2017 LEANDROHOSEA REBEL L LEAD JAVA PROGRAMMER Ot 250.00 DIAB BHAVIK WO COMPL, TYPE II OR UNSPEC TY 10/18/2017 BAIREBEL JC L LEAD JAVA PROGRAMMER Ot 272.4 HYPERLIPIDEMIA NEC/NOS 10/18/2017 REBEL IVY L LEAD JAVA PROGRAMMER Ot 401.9 HYPERTENSION NOS 10/18/2017 Ot 250.00 DIAB BHAVIK WO COMPL, TYPE II OR UNSPEC TY 10/18/2017 BAIREBEL JC L LEAD JAVA PROGRAMMER Ot 272.4 HYPERLIPIDEMIA NEC/NOS 10/18/2017 GELLENDER DO, [...] DIABETES MELLITUS WITHOUT COMPLIC 10/20/2017 FAINA, ERIN LEAD JAVA PROGRAMMER Ot E66.01 MORBID (SEVERE) OBESITY DUE TO EXCESS CA 10/20/2017 FAINA, ERIN LEAD JAVA PROGRAMMER Ot E78.00 PURE HYPERCHOLESTEROLEMIA, UNSPECIFIED 10/20/2017 FAINA, ERIN LEAD JAVA PROGRAMMER Ot I10 ESSENTIAL (PRIMARY) HYPERTENSION 10/20/2017 FAINA, ERIN LEAD JAVA PROGRAMMER Ot K21.9 GASTRO-ESOPHAGEAL REFLUX DISEASE WITHOUT 10/20/2017 FAIAN, ERIN LEAD JAVA PROGRAMMER Ot S09.90XA UNSPECIFIED INJURY OF HEAD, INITIAL ENCO 10/20/2017 FAINA, ERIN LEAD JAVA PROGRAMMER Ot W01.10XA FALL SAME LEV FROM SLIP/TRIP W STRIKE AG 10/20/2017 FAINA, ERIN TREADWELLP Ot Z68.41 BODY MASS INDEX (BMI) 40.0-44.9, ADULT 10/20/2017 ERIN EISENBERG Ot Z79.84 SEC[employer]ITY OFFICERS [employer] GUARDS (CURRENT) USE OF ORAL HYPOGLYC 10/20/2017 FAINA, [...] 03/09/2018 GELLENDER DO, ADEN Mohr Ot Z79.84 [facility] (CURRENT) USE OF ORAL HYPOGLYC 03/09/2018 GELLENDER DO, ADEN Mohr Ot Z86.711 PERSONAL HISTORY OF PULMONARY EMBOLISM 03/09/2018 GELLENDER DO, ADEN Mohr Ot Z86.718 PERSONAL HISTORY OF OTHER VENOUS THROMBO 03/09/2018 GELLENDER DO, ADEN Mohr Ot Z95.828 PRESENCE OF OTHER VASCULAR IMPLANTS AND 03/09/2018 GELLENDER DO, ADEN Mhor Ot Z96.653 PRESENCE OF ARTIFICIAL KNEE JOINT, [...] 03/09/2018 GELLENDER DO, ADEN Mohr Ot Z79.84 [facility] (CURRENT) USE OF ORAL HYPOGLYC 03/09/2018 GELLENDER [...] 03/11/2018 GELLENDER DO, ADEN Mohr Ot Z79.84 [facility] (CURRENT) USE OF ORAL HYPOGLYC 03/11/2018 NINILENDER [...] ADULT 03/16/2018 HECTOR BRITT MD Ot Z79.84 SECURITY OFFICERS AND GUARDS (CURRENT) USE OF ORAL HYPOGLYC 03/17/2018 HECTOR [...] ADULT 03/17/2018 HECTOR BRITT MD Ot Z79.84 SEC[employer]ITY OFFICERS AND GUARDS (CURRENT) USE OF ORAL HYPOGLYC 03/17/2018 HECTOR [...] SYMPTOMS AND SIGNS INVOLVING THE MUS 03/17/2018 HECTRO BRITT MD Ot Z68.42 BODY MASS INDEX (BMI) 45.0-49.9, ADULT 03/17/2018 HECTOR BRITT MD Ot Z79.84 [employer] OFFICERS [employer] GUARDS (CURRENT) USE OF ORAL HYPOGLYC 03/17/2018 HECTOR BRITT MD Ot D64.9 ANEMIA, UNSPECIFIED 03/17/2018 HECTOR BRITT MD Ot D69.6 THROMBOCYTOPENIA, UNSPECIFIED 03/17/2018 HECTOR BRITT MD E Ot E11.9 TYPE 2 DIABETES MELLITUS WITHOUT COMPLIC 03/17/2018 HECTOR BRITT MD Ot E66.9 OBESITY, UNSPECIFIED 03/17/2018 HECTOR BRITT MD Ot E78.00 PURE HYPERCHOLESTEROLEMIA, UNSPECIFIED 03/17/2018 HECTOR BIRTT MD Ot E78.2 MIXED HYPERLIPIDEMIA 03/17/2018 HECTOR [...] ADULT 03/17/2018 HECTOR BRITT MD Ot Z79.84 SEC[employer]ITY OFFICERS AND GUARDS (CURRENT) USE OF ORAL HYPOGLYC 03/18/2018 HECTOR [...] 03/18/2018 HECTOR BRITT MD E Ot Z79.84 [facility] (CURRENT) USE OF ORAL HYPOGLYC 03/19/2018 HECTOR [...] ADULT 03/19/2018 HECTOR BRITT MD Ot Z79.84 [facility] (CURRENT) USE OF ORAL HYPOGLYC 03/20/2018 HECTOR [...] ADULT 03/20/2018 HECTOR BRITT MD Ot Z79.84 SEC[employer]ITY OFFICERS AND GUARDS (CURRENT) USE OF ORAL HYPOGLYC 03/21/2018 HECTOR [...] ADULT 03/21/2018 HECTOR BRITT MD Ot Z79.84 SECURITY OFFICERS AND GUARDS (CURRENT) USE OF ORAL HYPOGLYC 03/22/2018 HECTOR [...] ADULT 03/22/2018 HECTOR BRITT MD Ot Z79.84 [facility] (CURRENT) USE OF ORAL HYPOGLYC 03/22/2018 HECTOR [...] ADULT 03/22/2018 HECTOR BRITT MD Ot Z79.84 [facility] (CURRENT) USE OF ORAL HYPOGLYC 03/23/2018 HECTOR [...] 03/23/2018 HECTOR BRITT MD E Ot Z79.84 SEC[employer]ITY OFFICERS [employer] GUARDS (CURRENT) USE OF ORAL HYPOGLYC 03/24/2018 HECTOR [...] 03/24/2018 HECTOR BRITT MD E Ot Z79.84 SEC[employer]ITY OFFICERS AND GUARDS (CURRENT) USE OF ORAL HYPOGLYC 03/24/2018 HECTOR [...] ADULT 03/24/2018 HECTOR BRITT MD Ot Z79.84 [facility] (CURRENT) USE OF ORAL HYPOGLYC Procedures Code Description Performed By Performed On [id number] INSERT OF MONITOR DEV INTO CHEST SUBCU/F [...] NRG Blood erythrocyte morphology finding identification [facility] Comprehensive metabolic panel - 03/24/18 05:33 Serum [...] Status Pt. Type Provider Facility Loc./Unit Complaint [id number] 03/26/2018 06:46:00 03/26/2018 23:59:59 [facility] Emergency PROSPER FOWLER, AMADOR Rosario [facility] ER DROWSY, DIFFICULT TO WAKE [id number] 03/11/2018 10:00:00 03/24/2018 16:25:00 DIS Outpatient LORENZA FOWLER, HECTOR Bolanos [facility] IRF CVA [id number] 03/08/2018 15:00:00 03/11/2018 10:01:00 DIS Inpatient ADEN LEE DO [facility] 4TH CONFUSION,WEAKNESS, CVA?,HTN [id number] 12/18/2017 10:15:00 12/18/2017 13:55:00 DIS Outpatient ADEN LEE DO [facility] REHAB GENERAL WEAKNESS; DIFFICULTY IN TALKING [id number] 10/18/2017 16:07:00 10/18/2017 19:02:00 DIS Emergency ERIN EISENBERG [facility] ER FALL [id number] 08/05/2017 08:01:00 08/05/2017 23:59:59 CLS Outpatient ADEN LEE DO Fani [facility] LAB DIABETES, HYPERLIPIDEMIA [id number] 07/26/2017 09:53:00 07/26/2017 13:00:00 DIS Emergency TWYLA VALVERDE FLOR [facility] ER FALL [id number] 01/22/2017 10:30:00 01/22/2017 12:00:00 DIS Outpatient IOANA TARIQ DO [facility] REHAB LOW BACK PAIN AND LUMBAR SPONDYLOSIS [id number] 01/19/2017 08:14:00 01/19/2017 23:59:59 CLS Outpatient NINIJORGE L KATE ADEN Fani [facility] LAB THROMBOCYCLOPE [id number] 12/23/2016 08:44:00 12/23/2016 23:59:59 CLS Outpatient ANNASANDHU ADEN Fani [facility] LAB HTN [id number] 10/07/2016 13:11:00 10/07/2016 14:45:00 DIS Emergency AMADOR CHENG MD [facility] ER KNEE PAIN [id number] 08/28/2016 08:29:00 08/28/2016 23:59:59 CLS Outpatient ADEN LEE DO [facility] LAB DIABETIS, HYPERTENSION [id number] 06/30/2016 09:17:00 06/30/2016 23:59:59 CLS Outpatient ADEN LEE DO [facility] RAD SCREENING [id number] 06/12/2016 08:15:00 06/12/2016 11:53:00 DIS Outpatient IOANA TARIQ DO [facility] REHAB S/P REVERSE LEFT TSA [id number] 05/29/2016 10:20:00 05/30/2016 17:00:00 DIS Outpatient IOANA TARIQ DO [facility] REHAB S/P REVERSE LEFT TSA [id number] 05/21/2016 08:02:00 05/21/2016 23:59:59 CLS Outpatient JESUS KATEADEN [facility] LAB LEUKOPENIA, THROMBOCYTOPENIA [id number] 05/06/2016 08:17:00 05/06/2016 23:59:59 CLS Outpatient JESUS KATEADEN [facility] LAB DIABETES, HYPERLIPIDEMIA [id number] 07/09/2015 08:33:00 07/09/2015 23:59:59 CLS Outpatient JESUS KATE ADEN Fani [facility] LAB DIABTS, [id number] 07/04/2015 09:09:00 07/04/2015 23:59:59 CLS Outpatient IOANA TARIQ DO [facility] RAD LUMBAR SPONDYLOSIS, DJD LEFT HIP [id number] 06/27/2015 08:43:00 06/27/2015 23:59:59 CLS Outpatient JESUS ADEN KATE [facility] RAD SCREENING [id number] 03/06/2015 07:08:00 03/06/2015 07:20:00 DIS Emergency AJITH FOWLER, LATASHA Hummel [facility] ER STAPLE REMOVAL [id number] 02/27/2015 10:38:00 02/27/2015 12:13:00 DIS Emergency REANNA FOWLER, BRUCE Rao [facility] ER FALL;L LEG PAIN [id number] 02/19/2015 08:28:00 02/19/2015 23:59:59 CLS Outpatient JESUS KATEADEN [facility] LAB DIABETES,PERIPHERAL ADEMIA [id number] 02/19/2015 08:20:00 02/19/2015 23:59:59 CLS Outpatient REBEL IVY [facility] LAB HYPERLIPIDEMIA [id number] 08/22/2014 10:30:00 08/22/2014 23:59:59 CLS Outpatient REBEL IVY [facility] LAB HLP,DM,HTN [id number] 06/26/2014 10:05:00 06/26/2014 23:59:59 CLS Outpatient JESUS ADEN KATE [facility] RAD SCREENING [id number] 04/05/2014 09:08:00 04/05/2014 23:59:59 CLS Outpatient ADEN LEE DO [facility] LAB DIABETES [id number] 02/21/2014 08:25:00 02/21/2014 23:59:59 CLS Outpatient REBEL IVY [facility] LAB OTHER UNSPECIFIED HYPERLIPIDEMIA [id number] 01/27/2014 10:30:00 01/27/2014 23:59:59 CLS Outpatient ADEN LEE DO [facility] RAD FELL LAST THURSDAY, PAIN IN R RIBS [id number] 08/18/2013 11:05:00 08/18/2013 23:59:59 CLS Outpatient REBEL IVY [facility] LAB HLP [id number] 08/12/2013 12:58:00 08/18/2013 14:04:00 DIS Outpatient IOANA TARIQ DO [facility] REHAB CERVICAL SPONDYLOSIS [id number] 08/16/2013 12:34:00 08/16/2013 23:59:59 CLS Outpatient REBEL IVY [facility] CARD HTN [id number] 08/13/2013 18:38:00 08/13/2013 23:46:00 DIS Emergency PROSPER FOWLER, AMADOR Rosario [facility] ER CP [id number] 07/25/2013 09:12:00 07/25/2013 23:59:59 CLS Outpatient IOANA TARIQ DO [facility] RAD CERVICAL SPONDYLOSIS [id number] 06/29/2013 07:43:00 06/29/2013 23:59:59 CLS Outpatient NINIJORGE L KATEADEN Fani [facility] LAB DM,HLP [id number] 06/24/2013 08:48:00 06/24/2013 23:59:59 CLS Outpatient JESUS ADEN [facility] RAD SCREENING [id number] 05/31/2013 08:35:00 06/22/2013 14:00:00 DIS Outpatient IOANA TARIQ DO [facility] REHAB DJD R SHOULDER CERVICAL SPONDYLOSIS [id number] 04/27/2013 10:00:00 05/06/2013 10:28:00 DIS Outpatient IOANA TARIQ DO [facility] REHAB CERVICAL SPONDYLOSIS, RT SIDED RADICULOPATHY [id number] 02/28/2013 11:21:00 02/28/2013 23:59:59 CLS Outpatient ADEN LEE DO [facility] RAD RIGHT RIB PAIN [id number] 02/01/2013 07:52:00 02/01/2013 23:59:59 CLS Outpatient REBEL IVY [facility] LAB HTN,HLP,STATIN [place] [id number] 12/03/2015 08:11:00 Document Registration [id number] 07/04/2015 09:08:00 Document Registration [id number] 10/25/2014 08:56:00 Document Registration [id number] 10/06/2012 09:30:00 Document Registration [id number] 09/30/2012 08:04:00 Document Registration [id number] 08/12/2012 08:40:00 Document Registration [id number] 06/21/2012 10:00:00 Document Registration [id number] 01/09/2012 14:12:00 Document Registration [id number] 01/06/2012 11:23:00 Document Registration [id number] 12/25/2011 11:32:00 Document Registration [id number] 12/04/2011 08:05:00 Document Registration [id number] 11/26/2011 07:55:00 Document Registration [id number] 06/19/2011 07:48:00 Document Registration [id number] 06/05/2011 10:04:00 Document Registration [id number] 05/06/2011 07:00:00 Document Registration [id number] 03/19/2011 16:56:00 Document Registration [id number] 09/04/2010 07:56:00 Document Registration [id number] 04/22/2010 08:15:00 Document Registration [id number] 04/17/2010 08:06:00 Document Registration [id number] 04/02/2010 12:05:00 Document Registration [id number] 04/01/2010 13:49:00 Document Registration [id number] 03/27/2010 09:38:00 Document Registration [id number] 03/08/2010 11:02:00 Document Registration [id number] 02/28/2010 07:44:00 Document Registration
== END 2018-03-31 14:15 | disposition home or self-care (01) | DRG 243 ==
LOC: EDUNIT# 06:45 → ER 06:46 → UNDOADMOB 12:30 → ICU 12:30 → ER 13:45 → CATH 14:00 → ICU 14:00 → 4TH 03-28 17:20 → CATH 03-29 11:28 → INTOOBSV 03-29 11:29 → 4TH 03-29 11:29 → OBSVTOIN 03-29 11:29 → 4TH 03-30 11:01 → UNDODISIN 03-31 14:15
PROVIDERS: ADMIT Internal Medicine; ATTEND Family Medicine
PROC: 0JH606Z Insertion of Pacemaker, Dual Chamber into Chest Subcutaneous Tissue and Fascia, Open Approach (ICD-10-PCS; principal; 2018-03-30)
PROC: 02HK3JZ Insertion of Pacemaker Lead into Right Ventricle, Percutaneous Approach (ICD-10-PCS; 2018-03-30)
PROC: 02H63JZ Insertion of Pacemaker Lead into Right Atrium, Percutaneous Approach (ICD-10-PCS; 2018-03-30)
DX: I49.5 Sick sinus syndrome (principal); I44.2 Atrioventricular block, complete; R00.1 Bradycardia, unspecified; I48.91 Unspecified atrial fibrillation; D61.818 Other pancytopenia; Z68.43 Body mass index [BMI] 50.0-59.9, adult; E66.01 Morbid (severe) obesity due to excess calories; I10 Essential (primary) hypertension; I69.322 Dysarthria following cerebral infarction; I69.391 Dysphagia following cerebral infarction; E11.9 Type 2 diabetes mellitus without complications; E78.5 Hyperlipidemia, unspecified; N32.81 Overactive bladder; K21.9 Gastro-esophageal reflux disease without esophagitis; M19.91 Primary osteoarthritis, unspecified site; R11.0 Nausea; R10.13 Epigastric pain; Z86.711 Personal history of pulmonary embolism; Z86.718 Personal history of other venous thrombosis and embolism; Z95.828 Presence of other vascular implants and grafts; Z79.84 Long term (current) use of oral hypoglycemic drugs; Z96.653 Presence of artificial knee joint, bilateral
CPT/HCPCS: 33208; 33284; 36415; 71045; 80053; 81000; 82962; 83735; 83880; 85025; 85027; 85610; 85730; 87081; 93005; 93041; 94640

== ENCOUNTER 2018-04-02 03:47 | Inpatient (IN) | payer MEDICARE, OTHER, MEDICAID ==
[2018-04-02] VITALS (19 sets, daily range): BP systolic 94–158; BP diastolic 33–69
[~2018-04-02] VITALS: Ht 172.7 cm; Wt 143.3 kg
[~2018-04-02 03:47] MED LIST changes: +APIX5TAB PO; +ATOR40TA70 PO; +CLIN300C11 PO; +CLOP75TA69 PO
[2018-04-02 04:12] LABS: BASOPHILS % (AUTO) 0 % (0-10); EOSINOPHILS # (AUTO) 0.2 10^3/uL (0.0-0.3); EOSINOPHILS % (AUTO) 2 % (0-10); HEMATOCRIT 25 % (35-52); HEMOGLOBIN 8.6 G/DL (11.5-16.0); LYMPHOCYTES # (AUTO) 0.9 X 10^3 (1.0-4.0); LYMPHOCYTES % (AUTO) 9 % (12-44); MEAN CORPUSCULAR HEMOGLOBIN 31 PG (25-34); MEAN CORPUSCULAR HGB CONC 34 G/DL (32-36); MEAN CORPUSCULAR VOLUME 91 FL (80-99); MEAN PLATELET VOLUME 10.5 FL (7.4-10.4); MONOCYTES # (AUTO) 0.8 X 10^3 (0.0-1.0); MONOCYTES % (AUTO) 8 % (0-12); NEUTROPHILS # (AUTO) 7.9 X 10^3 (1.8-7.8); NEUTROPHILS % (AUTO) 80 % (42-75); PLATELET COUNT 122 10^3/uL (130-400); RED BLOOD COUNT 2.77 10^6/uL (4.35-5.85); RED CELL DISTRIBUTION WIDTH 14.9 % (10.0-14.5); WHITE BLOOD COUNT 9.8 10^3/uL (4.3-11.0)
--- NOTE | 2018-04-02 04:26 | ED Neurological Problem ---
General Chief Complaint: Altered Mental Status Stated Complaint: PACE MAKER ISSUES, FALL Nursing Triage Note: AROUND 0300 PT UP TO BATHROOM SELF, WITNESSED BY STAFF. STAFF STATES PT STOOD UP FROM TOILET TOOK COUPLE STEPS THEN TO FLOOR. STATES UNABLE TO ASSIST PT TO STANDING, STATES "PT NOT ACTING RIGHT" Nursing Sepsis Screen: No Definite Risk Source: patient Exam Limitations: no limitations History of Present Illness Date Seen by Provider: Apr 02, 2018 Time Seen by Provider: 03:55 Initial Comments Here by EMS with report of altered mental status. Unsure of exactly when that began as the patient is a poor historian and nursing staff at the [facility] were also unsure due to recent stab changes. Patient had been admitted most of February for similar. Apparently the patient got up to go to the bathroom with little or no assistance but then fell forward and was unable to get up. EMS was summoned for lift assist and patient was having difficulty with speaking. This appears to be what had occurred on the previous visit but apparently may have been better. Patient is able to answer questions but appears to be globally weak. She is warm to touch and there is concerns about fever. Patient unable to provide much detail. She is on the plantar that appears to be Plavix and aspirin now although she is also been recently on a Eliquis. Patient recently had pacemaker placement Timing/Duration: 1-3 hours, unknown Associated Symptoms: confusion, fatigue; No nausea/vomiting, No seizures; slurred speech, weakness Allergies and Home Medications Allergies Coded Allergies: Penicillins (Unverified Allergy, Unknown, 12/21/06) codeine (Unverified Allergy, Unknown, 12/21/06) aspirin (Verified Adverse Reaction, Unknown, NAUSEA, 10/07/16) Home Medications Apixaban 5 Mg Tablet, 5 MG PO BID TAKE 2 TABLETS BID X 7 DAYS, THEN 1 TABLET BID Prescribed by: West COLVIN on 03/31/18 1323 Atorvastatin Calcium 40 Mg Tablet, 40 MG PO HS, (Reported) C,E,Zinc,Copper 11/Xrqdk0c/Lut 1 Each Capsule, 1 CAP PO DAILY, (Reported) Clindamycin HCl 300 Mg Capsule, 300 MG PO TID Prescribed by: West COLVIN on 03/31/18 1322 Fesoterodine Fumarate 4 Mg Tab.sr.24h, 4 MG PO DAILY, (Reported) Fish Oil/Dha/Epa 1 Each Capsule, 1,200 MG PO BID, (Reported) Lisinopril 10 Mg Tablet, 10 MG PO DAILY, (Reported) Metformin HCl 500 Mg Tablet, 500 MG PO BID, (Reported) Omeprazole 40 Mg Capsule.dr, 40 MG PO DAILY, (Reported) Telmisartan 80 Mg Tablet, 80 MG PO DAILY, (Reported) Patient Home Medication List Home Medication List Reviewed: Yes Review of Systems Constitutional: see HPI Eyes: No Symptoms Reported Ears, Nose, Mouth, Throat: no symptoms reported Respiratory: No short of breath, No wheezing Cardiovascular: No chest pain; edema Gastrointestinal: No abdominal pain, No nausea, No vomiting Genitourinary: no symptoms reported Musculoskeletal: see HPI; No back pain; muscle weakness Skin: no symptoms reported Psychiatric/Neurological: See HPI, Cognitive Dysfunction, Weakness Review of systems challenged due to patient being poor historian but noted as above. All Other Systems Reviewed Negative Unless Noted: Yes Past Etbaalm-Xvzzkt-Jlmwew Hx Past Med/Social Hx: Reviewed Nursing Past Med/Soc Hx Patient Social History Alcohol Use: Denies Use Recreational Drug Use: No Smoking Status: Never a Smoker Recent Foreign Travel: No Contact w/Someone Who Travel: No Recent Infectious Disease Expo: No Recent Hopitalizations: Yes (LOOP RECORDER IMPLANTED) Physical Abuse: No Sexual Abuse: No Mistreated: No Fear: No Immunizations Up To Date Tetanus Booster (TDap): More than 5yrs Date of Pneumonia Vaccine: Aug 07, 2016 Date of Influenza Vaccine: Jun 09, 2016 Seasonal Allergies Seasonal Allergies: No Past Medical History Surgeries: Yes (BILAT TKR, TIEN FILTER, LEFT SHOULDER SURGERY, BONE SPUR LEFT HEEL) Joint Replacement, Orthopedic Respiratory: No Cardiac: Yes (tien filter placement) Deep Vein Thrombosis, High Cholesterol, Hypertension Neurological: Yes Reproductive Disorders: No Female Reproductive Disorders: Denies Sexually Transmitted Disease: No HIV/AIDS: No Genitourinary: No Gastrointestinal: Yes Gastroesophageal Reflux Musculoskeletal: Yes (BONE SPUR REMOVAL LEFT FOOT) Arthritis Endocrine: Yes (DM TYPE II) Diabetes, Non-Insulin dep HEENT: No Cancer: No Psychosocial: No Nursing Suicide Risk Score: 0 Integumentary: No Blood Disorders: Yes (BLOOD CLOT LEG TO LUNG 2001) Family Medical History Reviewed Nursing Family Hx Myocardial infarction No Pertinent Family Hx Physical Exam Vital Signs Vital Signs - First Documented 04/02/18 04:03 Temp 99.6 Pulse 88 Resp 20 B/P (MAP) 119/57 (77) Pulse Ox 94 O2 Delivery Room Air Capillary Refill : Less Than 3 Seconds Height, Weight, BMI Height: 5'8.00" Weight: 250lbs. 3.0oz. 113.022656bw; 50.3 BMI Method:Estimated General Appearance: WD/WN, no apparent distress, obese HEENT: PERRL/EOMI, other (very dry mouth) Neck: full range of motion, supple Respiratory: lungs clear, normal breath sounds Cardiovascular: regular rate, rhythm, no murmur Gastrointestinal: non tender, soft Back: no CVA tenderness, no vertebral tenderness Extremities: pelvis stable, pedal edema (2-3+ to all extremities) Neurologic/Psychiatric: alert, motor weakness (global), depressed affect Crainal Nerves: other (speech seems to be affected by dry mouth but is able to verbalize concerns and answered questions.) Motor/Sensory: no sensory deficit, weak motor strength RUE, weak motor strength LUE, weak motor strength RLE, weak motor strength LLE Skin: warm/dry, ecchymosis (moderate amount of ecchymosis to both breasts and centrally. The pacemaker site to left clean, dry and intact.) Stroke NIH Stroke Scale Assessment Gaze: Normal (0), Total: Stroke Thrombolytic Exclusion Age 18 or Over: Yes Acute intenal hemorrhage: No History of CVA: No Uncontrolled Coagulation Defec: No Intracranial Hemorrhage: No Severe Hypertension: No GI or Bleed: No Subarachnoid Hemorrhage: No Intracranial Neoplasm/Aneurysm: No Oral Anticoagulants: No Surgery or Trauma: No Puncture of Non-Compressible V: No Recent CPR: No Diabetic Hemorrhagic Retinopat: No Organ Biopsy: No Recent Obstetric Delivery: No Glucose: No Significant Hepatic Dysfunctio: No NIH Stoke Scale >22: No Bacterial Endocarditis: No Pericarditis: No Improving Symptoms: No Focused Exam Lactate Level 04/02/18 03:57: Lactic Acid Level 3.61*H Lactic Acid Level Laboratory Tests Test 04/02/18 03:57 Lactic Acid Level 3.61 MMOL/L (0.50-2.00) *H Progress/Results/Core Measures Results/Orders Lab Results Laboratory Tests Test 04/02/18 03:57 04/02/18 04:30 04/02/18 04:41 Range/Units White Blood Count 9.8 4.3-11.0 10^3/uL Red Blood Count 2.77 L 4.35-5.85 10^6/uL Hemoglobin 8.6 L 11.5-16.0 G/DL Hematocrit 25 L 35-52 % Mean Corpuscular Volume 91 80-99 FL Mean Corpuscular Hemoglobin 31 25-34 PG Mean Corpuscular Hemoglobin Concent 34 32-36 G/DL Red Cell Distribution Width 14.9 H 10.0-14.5 % Platelet Count 122 L 130-400 10^3/uL Mean Platelet Volume 10.5 H 7.4-10.4 FL Neutrophils (%) (Auto) 80 H 42-75 % Lymphocytes (%) (Auto) 9 L 12-44 % Monocytes (%) (Auto) 8 0-12 % Eosinophils (%) (Auto) 2 0-10 % Basophils (%) (Auto) 0 0-10 % Neutrophils # (Auto) 7.9 H 1.8-7.8 X 10^3 Lymphocytes # (Auto) 0.9 L 1.0-4.0 X 10^3 Monocytes # (Auto) 0.8 0.0-1.0 X 10^3 Eosinophils # (Auto) 0.2 0.0-0.3 10^3/uL Basophils # (Auto) 0.0 0.0-0.1 10^3/uL Prothrombin Time 25.6 H 12.2-14.7 SEC INR Comment 2.3 H 0.8-1.4 Activated Partial Thromboplast Time 43 H 24-35 SEC D-Dimer 10.24 H 0.00-0.49 UG/ML Sodium Level 141 135-145 MMOL/L Potassium Level 4.0 3.6-5.0 MMOL/L Chloride Level 111 H 98-107 MMOL/L Carbon Dioxide Level 21 21-32 MMOL/L Anion Gap 9 5-14 MMOL/L Blood Urea Nitrogen 24 H 7-18 MG/DL Creatinine 0.78 0.60-1.30 MG/DL Estimat Glomerular Filtration Rate > 60 BUN/Creatinine Ratio 31 Glucose Level 147 H 70-105 MG/DL Lactic Acid Level 3.61 *H 0.50-2.00 MMOL/L Calcium Level 8.1 L 8.5-10.1 MG/DL Total Bilirubin 1.3 H 0.1-1.0 MG/DL Aspartate Amino Transf (AST/SGOT) 18 5-34 U/L Alanine Aminotransferase (ALT/SGPT) 18 0-55 U/L Alkaline Phosphatase 60 40-136 U/L Troponin I < 0.30 <0.30 NG/ML C-Reactive Protein High Sensitivity 5.16 H 0.00-0.50 MG/DL B-Type Natriuretic Peptide 43.9 <100.0 PG/ML Total Protein 5.0 L 6.4-8.2 GM/DL Albumin 2.5 L 3.2-4.5 GM/DL TSH [place] Testing 1.04 0.35-4.94 UIU/ML Urine Color EDISON H Urine Clarity SLIGHTLY CLOUDY Urine pH 5 5-9 Urine Specific [place] 1.015 L 1.016-1.022 Urine Protein 1+ H NEGATIVE Urine Glucose (UA) NEGATIVE NEGATIVE Urine Ketones NEGATIVE NEGATIVE Urine Nitrite POSITIVE H NEGATIVE Urine Bilirubin 1+ H NEGATIVE Urine Urobilinogen 1 NORMAL MG/DL Urine Leukocyte Esterase 2+ H NEGATIVE Urine RBC (Auto) 2+ H NEGATIVE Urine RBC 0-2 /HPF Urine WBC 25-50 H /HPF Urine Squamous Epithelial Cells 0-2 /HPF Urine Renal Epithelial Cells 2-5 /HPF Urine Crystals NONE /LPF Urine Bacteria FEW H /HPF Urine Casts NONE /LPF Urine Mucus NEGATIVE /LPF Urine Culture Indicated YES Glucometer 145 H 70-110 MG/DL My Orders Orders - BRUCE FORTE MD Cbc With Automated Diff (04/02/18 04:01) Protime With Inr (04/02/18 04:01) Partial Thromboplastin Time (04/02/18 04:01) Comprehensive Metabolic Panel (04/02/18 04:01) Fibrin Degradation Products (04/02/18 04:01) Troponin I (04/02/18 04:01) Ua Culture If Indicated (04/02/18 04:01) Chest 1 View, Ap/Pa Only (04/02/18 04:01) Catheter(Urinary) Insert & Ass 03,15 (04/02/18 04:01) Ekg Tracing (04/02/18 04:01) Nothing By Mouth (04/02/18 Breakfast) Accucheck Stat ONCE (04/02/18 04:01) Saline Lock/Iv-Start (04/02/18 04:01) Vital Signs Stroke Patient Q15M (04/02/18 04:01) Ct Head Wo-R/O Stroke (04/02/18 04:01) O2 (04/02/18 04:01) Intake & Output 06,14,22 (04/02/18 04:01) Monitor-Rhythm Ecg Trace Only (04/02/18 04:01) Dysphagia Screening Tool (04/02/18 04:01) Lipid Panel (04/03/18 06:00) BNP (04/02/18 04:01) Hs C Reactive Protein (04/02/18 04:01) Lactic Acid Analyzer (04/02/18 04:01) Thyroid Analyzer (04/02/18 04:01) Blood Culture (04/02/18 04:01) Urine Culture (04/02/18 04:30) Ceftriaxone Injection (Rocephin Injectio (04/02/18 05:15) Ns Iv 500 Ml (Sodium Chloride 0.9%) (04/02/18 05:05) Saline Lock/Iv-Start (04/02/18 05:05) Medications Given in ED Current Medications Medications Dose Ordered Sig/Georgie Route Start Time Stop Time Status Last Admin Dose Admin Ceftriaxone Sodium 1000 mg/ Sodium Chloride 50 ml @ 100 mls/hr ONCE ONCE IV 04/02/18 05:15 04/02/18 05:45 DC 04/02/18 05:16 100 MLS/HR Sodium Chloride 500 ml @ 0 mls/hr Q0M ONCE IV 04/02/18 05:05 04/02/18 05:06 DC 04/02/18 05:16 0 MLS/HR Vital Signs/I&O 04/02/18 04/02/18 04:03 05:20 Temp 99.6 Pulse 88 86 Resp 20 20 B/P (MAP) 119/57 (77) 117/43 Pulse Ox 94 98 O2 Delivery Room Air Blood Pressure Mean: 77 Progress Progress Note : Progress Note Seen and evaluated on arrival by EMS. Stroke protocol initiated as well as sepsis protocol. Confusing history and patient poor historian and poor history from place of residence. Records reviewed and shows that she likely has had recent stroke/TIA as well as recent pacemaker placement. Similar presentation on previous visit with respect to speech and dry mouth. Patient is on blood thinners. Unsure of last known well time but patient does not qualify for TPA due to blood thinners and recent surgery and the chest. Also concerns for recent CVA. See nursing documentation for stroke scale. CT head, labs, chest x -ray, EKG and Ji catheter ordered. Blood cultures and lactic acid ordered due to fever noted on arrival as well as confusion. Monitor patient. 0433: CT negative. Lactic acid is positive. Pending further labs. 0506: UTI noted. Rocephin 1 g IV initiated. Lactic acid is elevated at 3.61. Patient does have edema and some pulmonary vascular congestion and high volume fluid resuscitation would be disadvantageous on this patient. We will initiate small bolus as blood pressure is okay currently and normal saline 500 mL bolus initiated. I did discuss the case with Dr. Lee and he accepts patient for admission to the ICU for the sepsis and UTI. This does not appear to be stroke-related on her admission but related to sepsis and UTI. We will consult Dr. Colvin in the morning as her recreation officer who placed the pacemaker. Continue fluids. 0525: Patient and family agree with admission. I attest to focused exam at this time. Admit, inpatient status to the ICU. Initial ECG Impression Date: Apr 02, 2018 Initial ECG Impression Time: 04:11 Initial ECG Rate: 87 Initial ECG Rhythm: Normal Sinus Comment Sinus rhythm with PVC. Normal axis. No evidence of ST elevation TN. No pacing currently noted. Underlying rhythm similar to previous but PVCs appear to be new. Interpreted by me. Diagnostic Imaging Diagonstic Imaging: CT Plain Films/CT/US/NM/MRI: head Comments Microvascular white matter disease. Otherwise unremarkable CT head. No change from prior study of 03/17/2018. Reviewed: Reviewed Night [facility] Study Diagonstic Imaging: Xray Plain Films/CT/US/NM/MRI: chest Comments Cardiomegaly with pulmonary vascular congestion. Departure Communication (Admissions) Time/Spoke to Admitting Phy: 05:06 Impression Primary Impression: Sepsis Qualified Codes: A41.9 - Sepsis, unspecified organism Additional Impression: Urinary tract infection Qualified Codes: N30.00 - Acute cystitis without hematuria Disposition: ADMITTED INPATIENT Condition: Stable Admissions Decision to Admit Reason: Admit from ER (General) Decision to Admit/Date: Apr 02, 2018 Time/Decision to Admit Time: 05:06 Departure-Patient Inst. Referrals: ADEN LEE DO (PCP/Family) Primary Care Physician BRUCE FORTE MD Apr 02, 2018 04:26
[2018-04-02 04:32] LABS: ALANINE AMINOTRANSFERASE 18 U/L (0-55); ALBUMIN 2.5 GM/DL (3.2-4.5); ALKALINE PHOSPHATASE 60 U/L (40-136); BILIRUBIN,TOTAL 1.3 MG/DL (0.1-1.0); BUN/CREATININE RATIO 31; CALCIUM 8.1 MG/DL (8.5-10.1); CARBON DIOXIDE 21 MMOL/L (21-32); CHLORIDE 111 MMOL/L (98-107); CREATININE SERUM 0.78 MG/DL (0.60-1.30); GFR ESTIMATED > 60; GLUCOSE 147 MG/DL (70-105); INR 2.3 (0.8-1.4); PROTHROMBIN TIME PATIENT 25.6 SEC (12.2-14.7); SODIUM 141 MMOL/L (135-145)
[2018-04-02 04:38] LABS: CLARITY,URINE SLIGHTLY CLOUDY; COLOR,URINE AMBER; GLUCOSE, URINE (UA) NEGATIVE (NEGATIVE); KETONES,URINE NEGATIVE (NEGATIVE); LEUKOCYTE ESTERASE ,URINE 2+ (NEGATIVE); NITRITE,URINE POSITIVE (NEGATIVE); PH,URINE 5 (5-9); PROTEIN,URINE 1+ (NEGATIVE); UROBILINOGEN,URINE 1 MG/DL (NORMAL)
[2018-04-02 04:52] LABS: TSH (THYROID ANALYZER) 1.04 UIU/ML (0.35-4.94)
[2018-04-02 04:54] LABS: BILIRUBIN,URINE 1+ (NEGATIVE)
[2018-04-02 04:55] LABS: BACTERIA,URINE FEW /HPF; RBC,URINE 0-2 /HPF; SQUAMOUS EPITHELIAL CELL,UR 0-2 /HPF; WBC,URINE 25-50 /HPF
[2018-04-02 04:57] LABS: FIBRIN DEGRADATION PRODUCTS 10.24 UG/ML (0.00-0.49)
[2018-04-02] MEDS ORDERED: NS IV 500 ML 500 ML IV ONE (05:05)
[2018-04-02] MEDS ORDERED: cefTRIAXone INJECTION 1,000 MG in NS (IVPB) 50 ML IV ONE (05:15)
--- NOTE | 2018-04-02 05:27 | Diagnostic Imaging Report ---
INDICATION: Altered mental status COMPARISON: 03/30/2018 FINDINGS: Single frontal view of the chest demonstrates borderline prominent cardiac silhouette. Pulmonary vasculature is also slightly prominent. The lungs are well aerated and clear. No large pleural effusion or pneumothorax is seen. The visualized osseous structures show no acute abnormalities. Left-sided dual-lead pacemaker and calcified aortic atherosclerosis are noted. IMPRESSION: 1. Borderline cardiac silhouette with probable mild vascular congestion Dictated by: Dictated on workstation # [id number]
[2018-04-02] MEDS ORDERED: NS IV 1000 ML 1,000 ML ONE (05:59)
--- NOTE | 2018-04-02 06:19 | Diagnostic Imaging Report ---
INDICATION: Altered mental status TECHNIQUE: Routine non contrast-enhanced axial images were obtained from the skull base to the vertex. COMPARISON: 03/17/2018 FINDINGS: The ventricles and cortical sulci are diffusely prominent, compatible with age-related volume loss. There are confluent areas of abnormal, low attenuation in the periventricular white matter. This is consistent with chronic small vessel ischemic changes. There is no midline shift or mass-effect. No acute intra-axial hemorrhage is seen. There are no abnormal areas of increased or decreased density to suggest acute hemorrhage or edema. No extra-axial masses or collections are present. The bony calvarium is intact. The visualized paranasal sinuses are unremarkable. The mastoid air cells are clear. IMPRESSION: 1. No acute intracranial abnormality. No CT evidence of mass, acute infarct or intracranial hemorrhage. 2. Chronic small vessel ischemic changes in the deep white matter. Dictated by: Dictated on workstation # [id number]
[2018-04-02] MEDS ORDERED: NS IV 1000 ML 1,000 ML IV SCH (06:29)
[2018-04-02] MEDS ORDERED: NS IV PRN (06:30)
[2018-04-02] MEDS: NOREPINEPHRINE 4 MG in NS (IVPB) 250 ML IV SCH ×2 (06:44→20:28)
[2018-04-02] MEDS ORDERED: RT-ALBUTEROL/IPRATROPIUM 3 ML (DUONEB) VIAL INH PRN (07:00)
--- NOTE | 2018-04-02 07:51 | History & Physicial ---
History of Present Illness History of Present Illness Reason for visit/HPI *Resident of assisted living. Patient went to bathroom at 3 a.m. Patient got up from toilet and fell to floor. This was witnessed. Were unable to get patient up and called EMS. Patient had acute mental status change. Patient now has difficulty in speaking. Patient is swollen up. Would not give patient high doses of fluid to avoid congestive heart failure. Serum lactic acid elevated but second one coming down. Patient not in septic shock. Patient did speak to nurse and was coherent. Patient has difficulty in talking now Date of Admission Apr 02, 2018 at 05:20 Time Seen by Provider: 07:45 I consulted on this patient on 04/02/18 07:45 Attending Physician Aden Lee DO Admitting Physician Aden Lee DO Consult Allergies and Home Medications Allergies Coded Allergies: Penicillins (Unverified Allergy, Unknown, 12/21/06) codeine (Unverified Allergy, Unknown, 12/21/06) aspirin (Verified Adverse Reaction, Unknown, NAUSEA, 10/07/16) Home Medications Apixaban 5 Mg Tablet, 5 MG PO BID TAKE 2 TABLETS BID X 7 DAYS, THEN 1 TABLET BID Prescribed by: West COLVIN on 03/31/18 1323 Atorvastatin Calcium 40 Mg Tablet, 40 MG PO HS, (Reported) C,E,Zinc,Copper 11/Fzsod0z/Lut 1 Each Capsule, 1 CAP PO DAILY, (Reported) Clindamycin HCl 300 Mg Capsule, 300 MG PO TID Prescribed by: West COLVIN on 03/31/18 1322 Fesoterodine Fumarate 4 Mg Tab.sr.24h, 4 MG PO DAILY, (Reported) Fish Oil/Dha/Epa 1 Each Capsule, 1,200 MG PO BID, (Reported) Lisinopril 10 Mg Tablet, 10 MG PO DAILY, (Reported) Metformin HCl 500 Mg Tablet, 500 MG PO BID, (Reported) Omeprazole 40 Mg Capsule.dr, 40 MG PO DAILY, (Reported) Telmisartan 80 Mg Tablet, 80 MG PO DAILY, (Reported) Patient Home Medication List Home Medication List Reviewed: No Past Tevqqzq-Jmqoqs-Nfniax Hx Patient Social History Marrital Status: Employed/Student: retired Alcohol Use: Denies Use Recreational Drug Use: No Smoking Status: Never a Smoker Physical Abuse Screen: No Sexual Abuse: No Recent Foreign Travel: No Contact w/other who traveled: No Recent Hopitalizations: Yes (LOOP RECORDER IMPLANTED) Recent Infectious Disease Expo: No Immunizations Up To Date Tetanus Booster (TDap): More than 5yrs Date of Pneumonia Vaccine: Aug 07, 2016 Date of Influenza Vaccine: Jun 09, 2016 Seasonal Allergies Seasonal Allergies: No Surgeries Yes (BILAT TKR, TIEN FILTER, LEFT SHOULDER SURGERY, BONE SPUR LEFT HEEL) Joint Replacement, Orthopedic Respiratory No Cardiovascular Yes (tien filter placement) Deep Vein Thrombosis, High Cholesterol, Hypertension Neurological Yes Reproductive System Hx Reproductive Disorders: No Sexually Transmitted Disease: No HIV/AIDS: No Female Reproductive Disorders: Denies Genitourinary No Gastrointestinal Yes Gastroesophageal Reflux Musculoskeletal Yes (BONE SPUR REMOVAL LEFT FOOT) Arthritis Endocrine History of Endocrine Disorders: Yes (DM TYPE II) Endocrine Disorders: Diabetes, Non-Insulin dep HEENT History of HEENT Disorders: No Cancer No Psychosocial History of Psychiatric Problem: No Integumentary History of Skin or Integumenta: No Blood Transfusions History of Blood Disorders: Yes (BLOOD CLOT LEG TO LUNG 2000) Family Medical History Significant Family History: No Pertinent Family Hx Family Hx: Myocardial infarction Constitutional: malaise, weakness EENTM: no symptoms reported Respiratory: no symptoms reported, other (Patient has purples of both breasts) Cardiovascular: no symptoms reported, other (Recent pacemaker dual-chamber inserted) Gastrointestinal: no symptoms reported Genitourinary: no symptoms reported Physical Exam Vital Signs Vital Signs - First Documented 04/02/18 04/02/18 04:03 06:57 Temp 99.6 Pulse 88 Resp 20 B/P (MAP) 119/57 (77) Pulse Ox 94 O2 Delivery Room Air FiO2 21 Capillary Refill : Less Than 3 Seconds Height, Weight, BMI Height: 5'8.00" Weight: 285lbs. 0.0oz. 129.574597an; 43.3 BMI Method:Estimated General Appearance: No Apparent Distress, WD/WN, Obese Eyes: Bilateral Eye Normal Inspection HEENT: Normal ENT Inspection Neck: Normal Inspection, Non Tender Respiratory: Lungs Clear, No Accessory Muscle Use, No Respiratory Distress Cardiovascular: Regular Rate, Rhythm, No Murmur, Other (Recent pacemaker dual- chamber) Gastrointestinal: Non Tender, Soft Assessment/Plan Assessment and Plan Acute mental status change. Diabetes. fall. Hyperlipidemia. History of hypertension. Sepsis improving. Patient not a candidate for high-dose fluids. Recent pacemaker dual-chamber inserted. Anemia Admission Diagnosis Admission Status: Inpatient Order (span 2 midnights) Reason for Inpatient Admission: Acute mental status changes. Dysarthria. Check for dysphagia. Anemia Clinical Quality Measures DVT/VTE Risk/Contraindication: Risk Factor Score Per Nursin RFS Level Per Nursing on Admit: 4+=Very High ADEN LEE DO Apr 02, 2018 07:51
--- NOTE | 2018-04-02 09:44 | Consultation-Cardiology ---
HPI-Cardiology Cardiology Consultation Date of Consultation 04/02/18 Date of Admission Time Seen by Provider: 09:39 Indication: Change in mental status HPI 77 years old lady, [place] resident, was in her usual state of health, discharged recently from the hospital after a pacemaker implant, was on clindamycin. went to the bathroom at 3 am. and became weak and fell to the floor when she tried to return to bed, was witnessed and she was lethargic and having slurred speech , EMS called and brought to the hospital. noted to have elevated lactic acid and UTI, she is still having some slurred speech but oriented, feeling better at this time. Denied any chest pain or shortness of breath Home Medications & Allergies Allergies: Coded Allergies: Penicillins (Unverified Allergy, Unknown, 12/21/06) codeine (Unverified Allergy, Unknown, 12/21/06) aspirin (Verified Adverse Reaction, Unknown, NAUSEA, 10/07/16) Home Medication List Reviewed: Yes TRT-Mpfget-Jwsmbr Hx Patient Social History Marital Status: Employed/Student: retired Alcohol Use: Denies Use Recreational Drug Use: No Smoking Status: Never a Smoker Recent Foreign Travel: No Recent Infectious Disease Expo: No Recent Hopitalizations: Yes (LOOP RECORDER IMPLANTED) Physical Abuse Screen: No Sexual Abuse: No Immunizations Up To Date Tetanus Booster (TDap): More than 5yrs Date of Pneumonia Vaccine: Aug 07, 2016 Date of Influenza Vaccine: Jun 09, 2016 Past Medical History Past medical history is discussed below Family Medical History Significant Family History: No Pertinent Family Hx Family Medical Hx Non contributory to her current condition Family History: Myocardial infarction Constitutional: see HPI, dizziness, malaise, weakness EENTM: see HPI, no symptoms reported Respiratory: see HPI; No cough; dyspnea on exertion; No hemoptysis, No orthopnea, No phlegm, No short of breath, No stridor, No wheezing, No other Cardiovascular: No no symptoms reported; see HPI; No chest pain; edema; No Hx of Intervention; palpitations, syncope (Near syncope); No vascular heart diseas , No other Gastrointestinal: no symptoms reported, see HPI Genitourinary: see HPI, frequency Musculoskeletal: see HPI, joint pain, muscle weakness Skin: see HPI, other (bruising from previous IV site and pacemaker site) Psychiatric/Neurological: No Symptoms Reported, See HPI, Weakness, Other ( slight slurred speech) Reviewed Test Results Reviewed Test Results Lab Laboratory Tests Test 04/02/18 03:57 04/02/18 04:30 04/02/18 04:41 04/02/18 06:45 Range/Units White Blood Count 9.8 4.3-11.0 10^3/uL Red Blood Count 2.77 L 4.35-5.85 10^6/uL Hemoglobin 8.6 L 11.5-16.0 G/DL Hematocrit 25 L 35-52 % Mean Corpuscular Volume 91 80-99 FL Mean Corpuscular Hemoglobin 31 25-34 PG Mean Corpuscular Hemoglobin Concent 34 32-36 G/DL Red Cell Distribution Width 14.9 H 10.0-14.5 % Platelet Count 122 L 130-400 10^3/uL Mean Platelet Volume 10.5 H 7.4-10.4 FL Neutrophils (%) (Auto) 80 H 42-75 % Lymphocytes (%) (Auto) 9 L 12-44 % Monocytes (%) (Auto) 8 0-12 % Eosinophils (%) (Auto) 2 0-10 % Basophils (%) (Auto) 0 0-10 % Neutrophils # (Auto) 7.9 H 1.8-7.8 X 10^3 Lymphocytes # (Auto) 0.9 L 1.0-4.0 X 10^3 Monocytes # (Auto) 0.8 0.0-1.0 X 10^3 Eosinophils # (Auto) 0.2 0.0-0.3 10^3/uL Basophils # (Auto) 0.0 0.0-0.1 10^3/uL Prothrombin Time 25.6 H 12.2-14.7 SEC INR Comment 2.3 H 0.8-1.4 Activated Partial Thromboplast Time 43 H 24-35 SEC D-Dimer 10.24 H 0.00-0.49 UG/ML Sodium Level 141 135-145 MMOL/L Potassium Level 4.0 3.6-5.0 MMOL/L Chloride Level 111 H 98-107 MMOL/L Carbon Dioxide Level 21 21-32 MMOL/L Anion Gap 9 5-14 MMOL/L Blood Urea Nitrogen 24 H 7-18 MG/DL Creatinine 0.78 0.60-1.30 MG/DL Estimat Glomerular Filtration Rate > 60 BUN/Creatinine Ratio 31 Glucose Level 147 H 70-105 MG/DL Lactic Acid Level 3.61 *H 2.46 *H 0.50-2.00 MMOL/L Calcium Level 8.1 L 8.5-10.1 MG/DL Total Bilirubin 1.3 H 0.1-1.0 MG/DL Aspartate Amino Transf (AST/SGOT) 18 5-34 U/L Alanine Aminotransferase (ALT/SGPT) 18 0-55 U/L Alkaline Phosphatase 60 40-136 U/L Troponin I < 0.30 <0.30 NG/ML C-Reactive Protein High Sensitivity 5.16 H 0.00-0.50 MG/DL B-Type Natriuretic Peptide 43.9 <100.0 PG/ML Total Protein 5.0 L 6.4-8.2 GM/DL Albumin 2.5 L 3.2-4.5 GM/DL TSH [place] Testing 1.04 0.35-4.94 UIU/ML Urine Color EDISON H Urine Clarity SLIGHTLY CLOUDY Urine pH 5 5-9 Urine Specific [place] 1.015 L 1.016-1.022 Urine Protein 1+ H NEGATIVE Urine Glucose (UA) NEGATIVE NEGATIVE Urine Ketones NEGATIVE NEGATIVE Urine Nitrite POSITIVE H NEGATIVE Urine Bilirubin 1+ H NEGATIVE Urine Urobilinogen 1 NORMAL MG/DL Urine Leukocyte Esterase 2+ H NEGATIVE Urine RBC (Auto) 2+ H NEGATIVE Urine RBC 0-2 /HPF Urine WBC 25-50 H /HPF Urine Squamous Epithelial Cells 0-2 /HPF Urine Renal Epithelial Cells 2-5 /HPF Urine Crystals NONE /LPF Urine Bacteria FEW H /HPF Urine Casts NONE /LPF Urine Mucus NEGATIVE /LPF Urine Culture Indicated YES Glucometer 145 H 70-110 MG/DL Physical Exam Vital Signs Vital Signs - First Documented 04/02/18 04/02/18 04:03 06:57 Temp 99.6 Pulse 88 Resp 20 B/P (MAP) 119/57 (77) Pulse Ox 94 O2 Delivery Room Air FiO2 21 Capillary Refill : Less Than 3 Seconds Height, Weight, BMI Height: 5'8.00" Weight: 285lbs. 0.0oz. 129.818310wp; 43.3 BMI Method:Estimated General Appearance: WD/WN Eyes: Bilateral Eye Normal Inspection, Bilateral Eye PERRL, Bilateral Eye EOMI HEENT: PERRL/EOMI, TMs Normal, Normal ENT Inspection, Pharynx Normal Neck: Full Range of Motion, Normal Inspection, Non Tender, Supple Respiratory: Chest Non Tender, Normal Breath Sounds, No Accessory Muscle Use, No Respiratory Distress, Crackles Cardiovascular: No Edema, No Gallop, No JVD, Normal Peripheral Pulses, Systolic Murmur, Extra Beats Gastrointestinal: Normal Bowel Sounds, No Organomegaly, No Pulsatile Mass, Non Tender, Soft Back: Normal Inspection, No CVA Tenderness, No Vertebral Tenderness Extremity: Normal Capillary Refill, Normal Inspection, Normal Range of Motion, Non Tender, No Calf Tenderness, No Pedal Edema Neurologic/Psychiatric: Alert, Oriented x3, Normal Mood/Affect, Motor Weakness Skin: Normal Color, Warm/Dry Lymphatic: No Adenopathy A/P-Cardiology Admission Diagnosis Sepsis UTI Sick sinus syndrome Change in mental status Assessment/Plan Near Syncope, history of syncope with recent pacemaker implant. Patient has UTI and elevated Lactic acid, probably the cause for her weakness and fatigue Sick sinus syndrome with history of syncope, status post pacemaker implant, site is healing well UTI, sepsis, started on Rocephin, managed by medical team, was on Clindamycin as an outpatient Anemia, mild thrombocytopenia, seen previously by Dr Clifton[facility], maintained on Eliquis and may require blood transfusion Paroxysmal atrial fibrillation, currently in sinus rhythm with APCs and VPCs, I will restart meds and monitor, continue on Eliquis History of CVA with subsequent dysphasia, worse on 03-17-18, but has improved, mild slurred Speech noted Echo of 03/18/18: LVEF 55-60%, AoV sclerosis w/o stenosis, PASP 30 mmHg No angiographically significant coronary artery disease, normal global left ventricular systolic function with an ejection fraction of approximately 60 to 65%, elevated left ventricular end-diastolic pressure indicative of some degree of diastolic dysfunction of the left ventricle, and no significant mitral regurgitation per cardiac catheterization from 01/06/12 Maturity onset diabetes mellitus. Hypertension, restart home meds and monitor blood pressure response Chronic bilateral leg swelling, likely related to venous insufficiency. Hyperlipidemia, continue to monitor Chronic back pain and degenerative joint disease. Pulmonary artery systolic pressure is estimated to be approximately 40 mmHg per echocardiogram from 08/18/2013, which is unchanged from 2012 Clinical Quality Measures DVT/VTE Risk/Contraindication: Risk Factor Score Per Nursin RFS Level Per Nursing on Admit: 4+=Very High Contraindications-Pharm: Other *list below* CHRISTY GRANGER MD Apr 02, 2018 09:44
[2018-04-02] MEDS ORDERED: NS (IVPB) 250 ML IV ONE (10:15)
[2018-04-02] MEDS: NS IV 1000 ML 1,000 ML IV SCH ×2 (10:47→19:41)
--- NOTE | 2018-04-02 15:37 | ST Dysphagia Evaluation ---
Speech Evaluation-General Medical Diagnosis Confusion, fall Therapy Diagnosis Therapy Diagnosis: Dysphagia Precautions Precautions/Isolations: Fall Prevention, Standard Precautions Referral Referring Physician: Dr. Cortez Reason for Referral: Evaluation/Treatment Medical History Pertinent Medical History: DM, HTN Current History Pt got up to go to bathroom and fell. Staff reported that pt was "not right". Speech PLF/Current-Dysphagia Prior Level of Function Pt was independent. Subjective Pt pleasant and cooperative. She remembered me from her Rehab stay. Cognitive Status Patient Orientation: Person Oral Motor Skills Dentition: Natural Ability to Follow Directions: Good Oral Expression Ability: Mild Impairment Pt was NPO until speech could assess. Voice Voice Phonatory-Based Quality: Weak Voice Pitch: Normal Voice Loudness: Normal Face Facial Symmetry: Symmetrical Dysphagia Evaluation Consistencies Presented: Regular, Thin Liquid, Peck Thick Liquid, Pureed WFL Pharyngeal Phase: Reduced Laryngeal Elevation Funct. Velo/Pharyngeal Symptom: Cough After Swallow (on thin liquids.) Dietary Recommendations: Regular Liquid Recommendations: Peck Consistancy Swallowing Precautions: Small Bites and Sips Dysphagia Evaluation Summary Pt has dysphagia for thin liquids but not for nectar thick liquids or regular diet. 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 Speech-Plan Patient/Family Goals Patient/Family Goals: Be on thin liquids again. Treatment Plan Speech Therapy Treatment Plan: Modify Plan, See Comments Skilled speech therapy to determine if pt tolerating nectar thick liquids with no s/s of aspiration. Frequency: 2 times per week Estimated Hrs Per Day: .25 hour per day Rehab Potential: Good Barriers to Learning: None Pt/Family Agrees to Plan: Yes Safety Risks/Education Teaching Recipient: Patient Teaching Methods: Discussion Response to Teaching: Verbalize Understanding Time Speech Therapy Time In: 10:00 Speech Therapy Time Out: 10:15 Total Billed Time: 15 Billed Treatment Time 1, YADIEL Lisy JONESAIDEMarcela YI Apr 02, 2018 15:37
[2018-04-02 17:14] LABS: BASOPHILS % (AUTO) 0 % (0-10); EOSINOPHILS # (AUTO) 0.3 10^3/uL (0.0-0.3); EOSINOPHILS % (AUTO) 5 % (0-10); HEMATOCRIT 21 % (35-52); LYMPHOCYTES % (AUTO) 14 % (12-44); MEAN CORPUSCULAR HEMOGLOBIN 30 PG (25-34); MEAN CORPUSCULAR HGB CONC 33 G/DL (32-36); MEAN CORPUSCULAR VOLUME 91 FL (80-99); MEAN PLATELET VOLUME 9.9 FL (7.4-10.4); MONOCYTES # (AUTO) 0.7 X 10^3 (0.0-1.0); MONOCYTES % (AUTO) 9 % (0-12); NEUTROPHILS # (AUTO) 5.1 X 10^3 (1.8-7.8); NEUTROPHILS % (AUTO) 73 % (42-75); PLATELET COUNT 101 10^3/uL (130-400); RED BLOOD COUNT 2.33 10^6/uL (4.35-5.85); RED CELL DISTRIBUTION WIDTH 15.5 % (10.0-14.5)
[2018-04-02 17:42] LABS: BUN/CREATININE RATIO 33; CALCIUM 7.7 MG/DL (8.5-10.1); CARBON DIOXIDE 25 MMOL/L (21-32); CHLORIDE 112 MMOL/L (98-107); CREATININE SERUM 0.81 MG/DL (0.60-1.30); GFR ESTIMATED > 60; GLUCOSE 115 MG/DL (70-105); POTASSIUM 3.7 MMOL/L (3.6-5.0); SODIUM 142 MMOL/L (135-145)
[2018-04-02 23:45] LABS: HEMOGLOBIN 6.8 G/DL (11.5-16.0)
[2018-04-03] VITALS (32 sets, daily range): BP systolic 82–138; BP diastolic 39–67
--- OUTSIDE RECORDS SUMMARY | 2018-04-03 03:17 | XMS REPORT | Continuity of Care Document ---
Author Author [facility] Organization [facility] Address Unknown Phone Unavailable Allergies Active Description Code Type Severity Reaction Onset Reported/Identified Relationship to Patient Clinical Status Yes codeine [id number] Drug Allergy Unknown N/A 12/21/2006 Yes Penicillins [id number] Drug Allergy Unknown N/A 12/21/2006 Yes aspirin [id number] Drug Allergy Unknown NAUSEA 10/07/2016 Medications There is no data. Problems Date Dx Coded Attending Type Code Diagnosis Diagnosed By 07/30/1199 IOANA TARIQ DO Ot M47.816 SPONDYLOSIS W/O MYELOPATHY OR RADICULOPA 07/30/1354 ADEN LEE DO Ot R53.1 WEAKNESS 04/01/2010 Ot 287.5 04/01/2010 Ot 577.2 04/01/2010 [...] 07/26/2014 ADEN LEE DO Ot V76.12 09/19/2014 BAIREBEL CJ L SUPERVISOR [employer] VAULT Ot 250.00 09/19/2014 BAIMA, REBEL L SUPERVISOR SEC[employer]IES VAULT Ot 272.4 09/19/2014 BAIHOSEA, REBEL L SUPERVISOR SECURITIES VAULT Ot 401.9 02/27/2015 BAIHOSEA, REBEL L SUPERVISOR SECURITIES VAULT Ot 250.00 02/27/2015 BAIMA, REBEL L SUPERVISOR SECURITIES VAULT Ot 272.4 02/27/2015 BAIHOSEA, REBEL L SUPERVISOR SECURITIES VAULT Ot 401.9 02/27/2015 Ot 250.00 02/27/2015 BIJU, REBEL L SUPERVISOR SECURITIES VAULT Ot 272.4 02/27/2015 ADEN LEE DO Ot 250.00 02/27/2015 JESUS KATE ADEN Mohr Ot 401.9 02/27/2015 JESUS KATE [...] Ot E888.1 FALL STRIKING OBJECT NEC 02/27/2015 REANNA FOWLER, BRUCE Rao Ot V06.1 [id number], COMBINED [ 03/06/2015 AJITH FOWLER, LATASHA Hummel Ot V58.32 ENCOUNTER FOR REMOVAL OF SUTURES 03/15/2015 ADEN LEE DO Ot 250.00 03/15/2015 NINILENADEN CABRERA DO Ot 401.9 03/15/2015 GELLENDER ADEN KATE Ot 782.3 07/02/2015 GELLENDER DOADEN Ot Z12.31 [...] 575.8 07/04/2015 Ot 789.01 07/04/2015 REBEL IVY SUPERVISOR SECURITIES VAULT Ot 272.4 07/04/2015 REBEL IVY SUPER[employer]OR [employer] VAULT Ot 401.9 07/04/2015 REBEL IVY SUPERVISOR SECURITIES VAULT Ot V58.69 07/04/2015 GELLENDER DO, ADEN Mohr Ot 786.50 07/04/2015 GELLENDER DO, ADEN Mohr Ot V76.12 07/04/2015 GELLENDER DO, ADEN Mohr Ot 250.00 07/04/2015 GELLENDER DO, ADEN A Ot 272.4 07/04/2015 CHANDNI DO, IOANA Mai Ot 721.0 07/04/2015 BAIMA, REBEL L SUPERVISOR [employer] VAULT Ot 397.0 07/04/2015 BAIMA, REBEL L SUPERVISOR SEC[employer]ITIES VAULT Ot 416.8 07/04/2015 BAIMA, REBEL L SUPERVISOR SECURITIES VAULT Ot 424.0 07/04/2015 BAIMA, REBEL L SUPERVISOR SECURITIES VAULT Ot 272.4 07/04/2015 BAIMA, REBEL L SUPERVISOR SECURITIES VAULT Ot V58.69 07/04/2015 GELLENDER DO, ADEN Mohr Ot 786.50 07/04/2015 GELLENDER DO, ADEN Mohr Ot V15.88 07/04/2015 BAIMA, REBEL L SUPERVISOR SECURITIES VAULT Ot 272.4 07/04/2015 GELLENDER DO, ADEN Mohr Ot 250.00 07/04/2015 GELLENDER DO, ADEN Mohr Ot 401.9 07/04/2015 GELLENDER DO, ADEN Mohr Ot V76.12 07/04/2015 BAIMA, REBEL L SUPERVISOR SECURITIES VAULT Ot 250.00 07/04/2015 BAIMA, REBEL L SUPERVISOR SECURITIES VAULT Ot 272.4 07/04/2015 BAIMA, REBEL L SUPERVISOR SECURITIES VAULT Ot 401.9 07/04/2015 Ot 250.00 07/04/2015 BAIMA, REBEL L SUPERVISOR SECURITIES VAULT Ot 272.4 07/04/2015 GELLENDER DO, ADEN Mohr [...] Mohr Ot E78.5 HYPERLIPIDEMIA, UNSPECIFIED 05/19/2016 CHANDNI DO, IOANA Mai Ot M25.512 PAIN IN LEFT SHOULDER 05/22/2016 GELLENDER DO, ADEN Mohr Ot D69.6 THROMBOCYTOPENIA, UNSPECIFIED 05/22/2016 GELLENDER DO, ADEN Mohr Ot D72.819 DECREASED WHITE BLOOD CELL COUNT, UNSPEC 05/29/2016 GELLENDER DO, ADEN Mohr Ot E11.9 TYPE 2 DIABETES MELLITUS WITHOUT COMPLIC 05/29/2016 GELLENDER DO, ADEN Mohr Ot E78.5 HYPERLIPIDEMIA, UNSPECIFIED 05/30/2016 CHANDNI DO, IOANA Mai Ot M25.512 PAIN IN LEFT SHOULDER 06/11/2016 GELLENDER DO, ADEN Mohr Ot D69.6 THROMBOCYTOPENIA, UNSPECIFIED 06/11/2016 GELLENDER DO, ADEN Mohr Ot D72.819 DECREASED WHITE BLOOD CELL COUNT, UNSPEC 06/12/2016 CHANDNI DO, IOANA Mai Ot M25.512 PAIN IN LEFT SHOULDER 06/12/2016 CHANDNI DO, IOANA Mai Ot Z98.890 OTHER SPECIFIED POSTPROCEDURAL STATES 06/30/2016 GELLENDER DO, ADEN Mohr Ot Z12.31 ENCNTR [...] RIGHT UPPER QUADRANT 07/04/2016 BAIMA REBEL L SUPERVISOR SEC[employer]ITIES VAULT Ot 272.4 HYPERLIPIDEMIA NEC/NOS 07/04/2016 BAIMA, REBEL L SUPERVISOR SEC[employer]ITIES VAULT Ot 401.9 HYPERTENSION NOS 07/04/2016 BAIMA, REBEL L SUPERVISOR SEC[employer]ITIES VAULT Ot V58.69 OTH MED,LT,CURRENT USE 07/04/2016 ADEN LEE DO Ot 786.50 CHEST PAIN NOS 07/04/2016 ADEN LEE DO Ot V76.12 OTH SCREEN MAMMO-MALIGN NEOPLASM OF VAN 07/04/2016 ADEN LEE DO Ot 250.00 DIAB BHAVIK WO COMPL, TYPE II OR UNSPEC TY 07/04/2016 ADEN LEE DO Ot 272.4 HYPERLIPIDEMIA NEC/NOS 07/04/2016 IOANA TARIQ DO Ot 721.0 CERVICAL SPONDYLOSIS 07/04/2016 BAIMA, REBEL L SUPERVISOR [employer] VAULT Ot 397.0 TRICUSPID VALVE DISEASE 07/04/2016 BAIMA, REBEL L SUPERVISOR SECURITIES VAULT Ot 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 NEC 07/04/2016 BAIMA, REBEL L SUPERVISOR SECURITIES VAULT Ot 424.0 MITRAL VALVE DISORDER 07/04/2016 BAIMA, REBEL L SUPERVISOR SEC[employer]ITIES VAULT Ot 272.4 HYPERLIPIDEMIA NEC/NOS 07/04/2016 BAIMA, REBEL L SUPERVISOR SECURITIES VAULT Ot V58.69 OTH MED,LT,CURRENT USE 07/04/2016 JESUS KATEADEN Ot 786.50 CHEST PAIN NOS 07/04/2016 JESUS KATEADEN Ot V15.88 HISTORY OF FALL 07/04/2016 LEANDROHOSEAREBEL SUPERVISOR SECURITIES VAULT Ot 272.4 HYPERLIPIDEMIA NEC/NOS 07/04/2016 JESUS KATE, ADEN Mohr Ot 250.00 DIAB BHAVIK WO COMPL, TYPE II OR UNSPEC TY 07/04/2016 JESUS ADEN KATE Ot 401.9 HYPERTENSION NOS 07/04/2016 JESUS ADEN KATE Ot V76.12 OTH SCREEN MAMMO-MALIGN NEOPLASM OF VAN 07/04/2016 REBEL IVY L SUPERVISOR SECURITIES VAULT Ot 250.00 DIAB BHAVIK WO COMPL, TYPE II OR UNSPEC TY 07/04/2016 REBEL IVY L SUPERVISOR SECURITIES VAULT Ot 272.4 HYPERLIPIDEMIA NEC/NOS 07/04/2016 REBEL IVY L SUPERVISOR SECURITIES VAULT Ot 401.9 HYPERTENSION NOS 07/04/2016 Ot 250.00 DIAB BHAVIK WO COMPL, TYPE II OR UNSPEC TY 07/04/2016 REBEL IVY L SUPERVISOR SECURITIES VAULT Ot 272.4 HYPERLIPIDEMIA NEC/NOS 07/04/2016 JESUS KATE ADEN Fani Ot 250.00 DIAB BHAVIK WO COMPL, TYPE II OR UNSPEC TY 07/04/2016 JESUS ADEN KATE Ot 401.9 HYPERTENSION NOS 07/04/2016 ADEN LEE DO Ot 782.3 EDEMA 07/04/2016 NINIAYNARICK ADEN KATE Ot Z12.31 ENCNTR SCREEN MAMMOGRAM FOR MALIGNANT NE 07/04/2016 IOANA TARIQ DO Ot M16.12 UNILATERAL PRIMARY OSTEOARTHRITIS, LEFT 07/04/2016 IOANA TARIQ DO Ot M47.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, LUMBAR REGION 07/04/2016 ADEN LEE DO Ot E11.9 TYPE 2 DIABETES MELLITUS WITHOUT COMPLIC 07/04/2016 ADEN LEE DO Ot I10 ESSENTIAL (PRIMARY) HYPERTENSION 07/04/2016 Ot E11.9 TYPE 2 DIABETES MELLITUS WITHOUT COMPLIC 07/04/2016 Ot E78.5 HYPERLIPIDEMIA, UNSPECIFIED 07/04/2016 ADEN LEE DO Ot E11.9 TYPE 2 DIABETES MELLITUS WITHOUT COMPLIC 07/04/2016 ADEN LEE DO Ot E78.5 HYPERLIPIDEMIA, UNSPECIFIED 07/04/2016 ADEN LEE DO Ot D69.6 THROMBOCYTOPENIA, UNSPECIFIED 07/04/2016 GELLENDER DO, ADEN Mohr Ot D72.819 DECREASED WHITE BLOOD CELL COUNT, UNSPEC 07/04/2016 GELLENDER DO, ADEN Mohr Ot Z12.31 ENCNTR SCREEN MAMMOGRAM FOR MALIGNANT NE 07/10/2016 GELLENDER DO, ADEN Mohr Ot Z12.31 ENCNTR SCREEN MAMMOGRAM FOR MALIGNANT NE 08/29/2016 GELLENDER DO, ADEN Mohr Ot E11.9 TYPE 2 DIABETES MELLITUS WITHOUT COMPLIC 08/29/2016 GELLENDER DO, ADEN Mohr Ot E78.5 HYPERLIPIDEMIA, UNSPECIFIED 08/29/2016 GELLENDER DO, ADEN Mohr Ot I10 ESSENTIAL (PRIMARY) HYPERTENSION 09/18/2016 GELLENDER DO, ADEN Mohr Ot E11.9 TYPE 2 DIABETES MELLITUS WITHOUT COMPLIC 09/18/2016 GELLENDER DO, ADEN Mohr Ot E78.5 HYPERLIPIDEMIA, UNSPECIFIED 09/18/2016 GELLENDER DO, ADEN Mohr Ot I10 ESSENTIAL [...] STRIKE 10/07/2016 AMADOR CHENG MD Ot Y92.[address] [facility] [address] IN [facility] NON-INSTITUT (PRIVATE 10/07/2016 AMADOR CHENG MD Ot Y99.8 OTHER EXTERNAL CAUSE STATUS 10/07/2016 AMADOR CHENG MD Ot Z79.84 HALFWAY (CURRENT) USE OF ORAL HYPOGLYC 10/07/2016 AMADOR CHENG MD, Ot Z79.899 OTHER HALFWAY (CURRENT) DRUG THERAPY 10/07/2016 AMADOR CHENG MD Ot Z96.653 PRESENCE OF ARTIFICIAL KNEE JOINT, BILAT 10/07/2016 Ot V76.12 OTH SCREEN MAMMO-MALIGN NEOPLASM [...] RIGHT UPPER QUADRANT 10/07/2016 BAIMA, REBEL L SUPERVISOR SEC[employer]ITIES VAULT Ot 272.4 HYPERLIPIDEMIA NEC/NOS 10/07/2016 BAIMA, REBEL L SUPERVISOR SECURITIES VAULT Ot 401.9 HYPERTENSION NOS 10/07/2016 BAIMA, REBEL L SUPERVISOR SECURITIES VAULT Ot V58.69 OTH MED,LT,CURRENT USE 10/07/2016 ADEN LEE DO Ot 786.50 CHEST PAIN NOS 10/07/2016 ADEN LEE DO Ot V76.12 OTH SCREEN MAMMO-MALIGN NEOPLASM OF VAN 10/07/2016 GELLENDER DO, ADEN Mohr Ot 250.00 DIAB BHAVIK WO COMPL, TYPE II OR UNSPEC TY 10/07/2016 GELLENDER DO, ADEN Mohr Ot 272.4 HYPERLIPIDEMIA NEC/NOS 10/07/2016 IOANA TARIQ DO Ot 721.0 CERVICAL SPONDYLOSIS 10/07/2016 BAIMA REBEL L SUPERVISOR [employer]URIT[employer] VAULT Ot 397.0 TRICUSPID VALVE DISEASE 10/07/2016 BAIMA, REBEL L SUPERVISOR SECURITIES VAULT Ot 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 NEC 10/07/2016 BAIMA, REBEL L SUPERVISOR SEC[employer]ITIES VAULT Ot 424.0 MITRAL VALVE DISORDER 10/07/2016 BAIMA REBEL L SUPERVISOR SECURITIES VAULT Ot 272.4 HYPERLIPIDEMIA NEC/NOS 10/07/2016 BAIMA REBEL L SUPERVISOR SECURITIES VAULT Ot V58.69 OT MED,LT,CURRENT USE 10/07/2016 GELLENDER DO, ADEN Mohr Ot 786.50 CHEST PAIN NOS 10/07/2016 GELLENDER DO, ADEN Mohr Ot V15.88 HISTORY OF FALL 10/07/2016 REBEL IVY L SUPERVISOR SECURITIES VAULT Ot 272.4 HYPERLIPIDEMIA NEC/NOS 10/07/2016 GELLENDER DO, ADEN Mohr Ot 250.00 DIAB BHAVIK WO COMPL, TYPE II OR UNSPEC TY 10/07/2016 GELLENDER DO, ADEN Mohr Ot 401.9 HYPERTENSION NOS 10/07/2016 GELLENDER DO, ADEN Mohr Ot V76.12 OTH SCREEN MAMMO-MALIGN NEOPLASM OF VAN 10/07/2016 BAIMA REBEL L SUPERVISOR SECURITIES VAULT Ot 250.00 DIAB BHAVIK WO COMPL, TYPE II OR UNSPEC TY 10/07/2016 BAIREBEL JC L SUPERVISOR SECURITIES VAULT Ot 272.4 HYPERLIPIDEMIA NEC/NOS 10/07/2016 BAIMA REBEL L SUPERVISOR SECURITIES VAULT Ot 401.9 HYPERTENSION NOS 10/07/2016 Ot 250.00 DIAB BHAVIK WO COMPL, TYPE II OR UNSPEC TY 10/07/2016 BAIHOSEA REBEL L SUPERVISOR SECURITIES VAULT Ot 272.4 HYPERLIPIDEMIA NEC/NOS 10/07/2016 GELLENDER DO, ADEN Mohr Ot 250.00 DIAB BHAVIK WO COMPL, TYPE II OR UNSPEC TY 10/07/2016 GELLENDER DO, ADEN Mohr Ot 401.9 HYPERTENSION NOS 10/07/2016 NINILENDER DO, ADEN Mohr Ot 782.3 EDEMA 10/07/2016 GELLENDER DO, ADEN Mohr Ot Z12.31 ENCNTR SCREEN MAMMOGRAM FOR MALIGNANT NE 10/07/2016 CHANDNI DO, IOANA Mai Ot M16.12 UNILATERAL PRIMARY OSTEOARTHRITIS, LEFT 10/07/2016 [...] Fani Ot I10 ESSENTIAL (PRIMARY) HYPERTENSION 10/08/2016 PROSPER FOWLER, AMADOR Rosario Ot E11.9 TYPE 2 DIABETES MELLITUS WITHOUT COMPLIC 10/08/2016 AMADOR CHENG MD, Ot I10 ESSENTIAL (PRIMARY) HYPERTENSION 10/08/2016 AMADOR CHENG MD Ot S80.02XA CONTUSION OF LEFT KNEE, INITIAL ENCOUNTE 10/08/2016 AMADOR CHENG MD, Ot S89.92XA UNSPECIFIED INJURY OF LEFT LOWER LEG, IN 10/08/2016 AMADOR CHENG MD, Ot W01.0XXA FALL SAME LEV FROM SLIP/TRIP W/O STRIKE 10/08/2016 AMADOR CHENG MD, Ot Y92.[address] IN [facility] NON-INSTITUT (PRIVATE 10/08/2016 AMADOR CHENG MD, Ot Y99.8 OTHER EXTERNAL CAUSE STATUS 10/08/2016 PROSPER FOWLER, AMADOR Rosario Ot Z79.84 HALFWAY (CURRENT) USE OF ORAL HYPOGLYC 10/08/2016 PROSPER FOWLER, AMADOR Rosario Ot Z79.899 OTHER HALFWAY (CURRENT) DRUG THERAPY 10/08/2016 PROSPER FOWLER, AMADOR Rosario Ot Z96.653 PRESENCE OF ARTIFICIAL KNEE JOINT, BILAT 10/09/2016 BAIMA, REBEL L SUPERVISOR SECURITIES VAULT Ot 250.00 DIAB BHAVIK WO COMPL, TYPE II OR UNSPEC TY 10/09/2016 BAIMA, REBEL L SUPERVISOR SECURITIES VAULT Ot 272.4 HYPERLIPIDEMIA NEC/NOS 10/09/2016 BAIMA, REBEL L SUPERVISOR SECURITIES VAULT Ot 401.9 HYPERTENSION NOS 10/09/2016 Ot 250.00 DIAB BHAVIK WO COMPL, TYPE II OR UNSPEC TY 10/09/2016 BAIMA, REBEL L SUPERVISOR SECURITIES VAULT Ot 272.4 HYPERLIPIDEMIA NEC/NOS 10/09/2016 GELLENDER DO, ADEN Mohr Ot 250.00 DIAB BHAVIK WO COMPL, TYPE II OR UNSPEC TY 10/09/2016 GELLENDER , ADEN Mohr Ot 401.9 HYPERTENSION NOS 10/09/2016 GELLENDER DOADEN Ot 782.3 EDEMA 10/09/2016 GELLENDER DOADEN Ot Z12.31 ENCNTR SCREEN MAMMOGRAM FOR MALIGNANT NE 10/09/2016 IOANA TARIQ DO Ot M16.12 UNILATERAL PRIMARY OSTEOARTHRITIS, LEFT 10/09/2016 IOANA TARIQ DO Ot M47.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, LUMBAR REGION 10/09/2016 ADEN LEE DO Ot E11.9 TYPE 2 DIABETES MELLITUS WITHOUT COMPLIC 10/09/2016 GELLENDER ADEN KATE Ot I10 ESSENTIAL (PRIMARY) HYPERTENSION 10/09/2016 Ot E11.9 TYPE 2 DIABETES MELLITUS WITHOUT COMPLIC 10/09/2016 Ot E78.5 HYPERLIPIDEMIA, UNSPECIFIED 10/09/2016 GELLENDER DOADEN Ot E11.9 TYPE 2 DIABETES MELLITUS WITHOUT COMPLIC 10/09/2016 GELLENDER ADEN KATE Ot E78.5 HYPERLIPIDEMIA, UNSPECIFIED 10/09/2016 GELLENDER ADEN KATE Ot D69.6 THROMBOCYTOPENIA, UNSPECIFIED 10/09/2016 ADEN LEE DO Ot D72.819 DECREASED WHITE BLOOD CELL COUNT, UNSPEC 01/02/2017 IOANA TARIQ DO Ot M47.816 SPONDYLOSIS W/O MYELOPATHY OR RADICULOPA 01/14/2017 GELJORGE L KTAE ADEN Mohr Ot E05.90 THYROTOXICOSIS, UNSP WITHOUT THYROTOXIC 01/14/2017 JESUS KATE ADEN Mohr Ot E11.9 TYPE 2 DIABETES MELLITUS WITHOUT COMPLIC 01/14/2017 JESUS KATE ADEN Mohr Ot I10 ESSENTIAL (PRIMARY) HYPERTENSION 01/20/2017 [facility] Mohr Ot D69.6 THROMBOCYTOPENIA, UNSPECIFIED 01/22/2017 IOANA TARIQ DO Ot M47.816 SPONDYLOSIS W/O MYELOPATHY OR RADICULOPA 02/11/2017 GELLENDER DO, ADEN Fani Ot D69.6 THROMBOCYTOPENIA, UNSPECIFIED 07/26/2017 TWYLA VALVERDE [...] VALVERDE APRN Ot Y92.[address] [facility] 07/26/2017 TWYLA VALVERDE APRN Ot Z79.84 HALFWAY (CURRENT) USE OF ORAL HYPOGLYC 07/26/2017 TWYLA VALVERDE APRN Ot Z86.718 PERSONAL HISTORY OF OTHER VENOUS THROMBO 07/26/2017 Ot V76.12 OTH SCREEN MAMMO-MALIGN NEOPLASM OF VAN 07/26/2017 Ot 272.4 HYPERLIPIDEMIA NEC/NOS 07/26/2017 Ot V58.69 OTH MED,LT, CURRENT USE 07/26/2017 Ot 789.01 ABDOMINAL PAIN, RIGHT UPPER QUADRANT 07/26/2017 Ot 575.8 DIS OF GALLBLADDER NEC 07/26/2017 Ot 789.01 ABDOMINAL PAIN, RIGHT UPPER QUADRANT 07/26/2017 BAIMA, RBEEL L SUPERVISOR SECURITIES VAULT Ot 272.4 HYPERLIPIDEMIA NEC/NOS 07/26/2017 BAIHOSEA, REBEL L SUPERVISOR SECURITIES VAULT Ot 401.9 HYPERTENSION NOS 07/26/2017 LEANDROMA, REBEL L SUPERVISOR SECURITIES VAULT Ot V58.69 OTH MED,LT,CURRENT USE 07/26/2017 ADEN LEE DO Ot 786.50 CHEST PAIN NOS 07/26/2017 ADEN LEE DO Ot V76.12 OTH SCREEN MAMMO-MALIGN NEOPLASM OF VAN 07/26/2017 ADEN LEE DO Ot 250.00 DIAB BHAVIK WO COMPL, TYPE II OR UNSPEC TY 07/26/2017 ADEN LEE DO Ot 272.4 HYPERLIPIDEMIA NEC/NOS 07/26/2017 IOANA TARIQ DO Ot 721.0 CERVICAL SPONDYLOSIS 07/26/2017 BAIMA, REBEL L SUPERVISOR SECURITIES VAULT Ot 397.0 TRICUSPID VALVE DISEASE 07/26/2017 BAIMA, REBEL L SUPERVISOR SECURITIES VAULT Ot 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 NEC 07/26/2017 BAIMA, REBEL L SUPERVISOR SECURITIES VAULT Ot 424.0 MITRAL VALVE DISORDER 07/26/2017 BAIMA, REBEL L SUPERVISOR SECURITIES VAULT Ot 272.4 HYPERLIPIDEMIA NEC/NOS 07/26/2017 LEANDROMA REBEL L SUPERVISOR SECURITIES VAULT Ot V58.69 OTH MED,LT,CURRENT USE 07/26/2017 ADEN LEE DO Ot 786.50 CHEST PAIN NOS 07/26/2017 ADEN LEE DO Ot V15.88 HISTORY OF FALL 07/26/2017 BIJU REBEL L SUPERVISOR SECURITIES VAULT Ot 272.4 HYPERLIPIDEMIA NEC/NOS 07/26/2017 ADEN LEE DO Ot 250.00 DIAB BHAVIK WO COMPL, TYPE II OR UNSPEC TY 07/26/2017 JESUS KATE ADEN Fani Ot 401.9 HYPERTENSION NOS 07/26/2017 ADEN LEE DO Ot V76.12 OTH SCREEN MAMMO-MALIGN NEOPLASM OF VAN 07/26/2017 BAIMA, REBEL L SUPERVISOR SECURITIES VAULT Ot 250.00 DIAB BHAVIK WO COMPL, TYPE II OR UNSPEC TY 07/26/2017 BAIMA, REBEL L SUPERVISOR SECURITIES VAULT Ot 272.4 HYPERLIPIDEMIA NEC/NOS 07/26/2017 BAIMA, REBEL L SUPERVISOR SECURITIES VAULT Ot 401.9 HYPERTENSION NOS 07/26/2017 Ot 250.00 DIAB BHAVIK WO COMPL, TYPE II OR UNSPEC TY 07/26/2017 BAIMA, REBEL L SUPERVISOR SECURITIES VAULT Ot 272.4 HYPERLIPIDEMIA NEC/NOS 07/26/2017 GELLENDER DO, ADEN Fani Ot 250.00 DIAB [...] 789.01 ABDOMINAL PAIN, RIGHT UPPER QUADRANT 09/10/2017 REBEL IVY L SUPERVISOR SECURITIES VAULT Ot 272.4 HYPERLIPIDEMIA NEC/NOS 09/10/2017 BAIMA, REBEL L SUPERVISOR SECURITIES VAULT Ot 401.9 HYPERTENSION NOS 09/10/2017 BIJU REBEL L SUPERVISOR SECURITIES VAULT Ot V58.69 OTH MED,LT,CURRENT USE 09/10/2017 ADEN LEE DO Ot 786.50 CHEST PAIN NOS 09/10/2017 NINILENDER , ADEN Mohr Ot V76.12 OTH SCREEN MAMMO-MALIGN NEOPLASM OF VAN 09/10/2017 JESUS KATE, ADEN Mohr Ot 250.00 DIAB BHAVIK WO COMPL, TYPE II OR UNSPEC TY 09/10/2017 GELLENDER DO, ADEN Mohr Ot 272.4 HYPERLIPIDEMIA NEC/NOS 09/10/2017 CHANDNI IOANA KATE Ot 721.0 CERVICAL SPONDYLOSIS 09/10/2017 LEANDROMA, REBEL L SUPERVISOR SECURITIES VAULT Ot 397.0 TRICUSPID VALVE DISEASE 09/10/2017 LEANDROMA, REBEL L SUPERVISOR SECURITIES VAULT Ot 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 NEC 09/10/2017 BAIHOSEA, REBEL L SUPERVISOR SECURITIES VAULT Ot 424.0 MITRAL VALVE DISORDER 09/10/2017 BAIMA, REBEL L SUPERVISOR SECURITIES VAULT Ot 272.4 HYPERLIPIDEMIA NEC/NOS 09/10/2017 BIJU REBEL L SUPERVISOR SECURITIES VAULT Ot V58.69 OTH MED,LT,CURRENT USE 09/10/2017 GELLENDER DO, ADEN Fani Ot 786.50 CHEST PAIN NOS 09/10/2017 GELLENDER DO, ADEN Mohr Ot V15.88 HISTORY OF FALL 09/10/2017 BAIMAREBEL L SUPERVISOR SECURITIES VAULT Ot 272.4 HYPERLIPIDEMIA NEC/NOS 09/10/2017 GELLENDER DO, ADEN Fani Ot 250.00 DIAB BHAVIK WO COMPL, TYPE II OR UNSPEC TY 09/10/2017 GELLENDER DO, ADEN Mohr Ot 401.9 HYPERTENSION NOS 09/10/2017 GELLENDER DO, ADEN oMhr Ot V76.12 OTH SCREEN MAMMO-MALIGN NEOPLASM OF VAN 09/10/2017 BAIMA, REBEL L SUPERVISOR SECURITIES VAULT Ot 250.00 DIAB BHAVIK WO COMPL, TYPE II OR UNSPEC TY 09/10/2017 BAIMA, REBEL L SUPERVISOR SECURITIES VAULT Ot 272.4 HYPERLIPIDEMIA NEC/NOS 09/10/2017 BAIMA, REBEL L SUPERVISOR SECURITIES VAULT Ot 401.9 HYPERTENSION NOS 09/10/2017 Ot 250.00 DIAB BHAVIK WO COMPL, TYPE II OR UNSPEC TY 09/10/2017 BAIMA REBEL L SUPERVISOR SECURITIES VAULT Ot 272.4 HYPERLIPIDEMIA NEC/NOS 09/10/2017 GELLENDER DO, ADEN Fani Ot 250.00 DIAB BHAVIK WO COMPL, TYPE II OR UNSPEC TY 09/10/2017 GELLENDER DO, ADEN Mohr Ot 401.9 HYPERTENSION NOS 09/10/2017 GELLENDER DO, ADEN Mohr Ot 782.3 EDEMA 09/10/2017 GELLENDER DO, ADEN Mohr Ot Z12.31 ENCNTR SCREEN MAMMOGRAM FOR MALIGNANT NE 09/10/2017 CHANDNI IOANA KATE Ot M16.12 UNILATERAL PRIMARY OSTEOARTHRITIS, LEFT 09/10/2017 CHANDNI , IOANA Mai Ot M47.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, LUMBAR REGION 09/10/2017 [...] DO, ADEN Mohr Ot E78.5 HYPERLIPIDEMIA, UNSPECIFIED 10/16/2017 GELLENDER DO, ADEN Mohr Ot R53.1 WEAKNESS 10/16/2017 GELLENDER DO, ADEN Mohr Ot R53.1 WEAKNESS 10/16/2017 GELLENDER DO, ADEN Mohr Ot R53.1 WEAKNESS 10/16/2017 GELLENDER DO, ADEN Mohr Ot R53.1 WEAKNESS 10/16/2017 GELLENDER DO, ADEN Mohr Ot R53.1 WEAKNESS 10/18/2017 FAINAERIN Bolanos Ot E11.9 TYPE 2 DIABETES MELLITUS WITHOUT COMPLIC 10/18/2017 FAINAERIN BolanosP Ot E66.01 MORBID (SEVERE) OBESITY DUE TO EXCESS CA 10/18/2017 FAINAERIN Bolanos Ot E78.00 PURE HYPERCHOLESTEROLEMIA, UNSPECIFIED 10/18/2017 FAINAERIN Bolanos Ot I10 ESSENTIAL (PRIMARY) HYPERTENSION 10/18/2017 ERIN EISENBERGP Ot K21.9 GASTRO-ESOPHAGEAL REFLUX DISEASE WITHOUT 10/18/2017 ERIN EISENBERG Ot S09.90XA UNSPECIFIED INJURY OF HEAD, INITIAL ENCO 10/18/2017 ERIN EISENBERGP Ot W01.10XA FALL SAME LEV FROM SLIP/TRIP W STRIKE AG 10/18/2017 ERIN EISENBERGP Ot Z68.41 BODY MASS INDEX (BMI) 40.0-44.9, ADULT 10/18/2017 ERIN EISENBERGP Ot Z79.84 CRTT (CURRENT) USE OF ORAL HYPOGLYC 10/18/2017 ERIN EISENBERG SUPERVISOR SECURITIES VAULT Ot Z86.718 PERSONAL HISTORY OF OTHER VENOUS THROMBO 10/18/2017 ERIN EISENBERG SUPERVISOR SEC[employer]ITIES VAULT Ot Z88.0 ALLERGY STATUS TO PENICILLIN 10/18/2017 FAINA ERIN SUPERVISOR SECURITIES VAULT Ot Z88.5 ALLERGY STATUS TO NARCOTIC AGENT STATUS 10/18/2017 ERIN EISENBERG SUPERVISOR SEC[employer]IT[employer] VAULT Ot Z88.6 ALLERGY STATUS TO ANALGESIC AGENT STATUS 10/18/2017 ERIN EISENBERGP Ot Z96.653 PRESENCE OF ARTIFICIAL KNEE JOINT, BILAT 10/18/2017 Ot V76.12 OTH SCREEN MAMMO-MALIGN NEOPLASM OF VAN 10/18/2017 Ot 272.4 HYPERLIPIDEMIA NEC/NOS 10/18/2017 Ot V58.69 OTH MED,LT, CURRENT USE 10/18/2017 Ot 789.01 ABDOMINAL PAIN, RIGHT UPPER QUADRANT 10/18/2017 Ot 575.8 DIS OF GALLBLADDER NEC 10/18/2017 Ot 789.01 ABDOMINAL PAIN, RIGHT UPPER QUADRANT 10/18/2017 REBEL IVY SUPERVISOR SECURITIES VAULT Ot 272.4 HYPERLIPIDEMIA NEC/NOS 10/18/2017 REBEL IVY SUPERVISOR SECURITIES VAULT Ot 401.9 HYPERTENSION NOS 10/18/2017 REBEL IVY SUPERVISOR SECURITIES VAULT Ot V58.69 OTH MED,LT,CURRENT USE 10/18/2017 ADEN LEE DO Ot 786.50 CHEST PAIN NOS 10/18/2017 ADEN LEE DO Ot V76.12 OTH SCREEN MAMMO-MALIGN NEOPLASM OF VAN 10/18/2017 ADEN LEE DO Ot 250.00 DIAB BHAVIK WO COMPL, TYPE II OR UNSPEC TY 10/18/2017 ADEN LEE DO Ot 272.4 HYPERLIPIDEMIA NEC/NOS 10/18/2017 CHANDNI IOANA Mai Ot 721.0 CERVICAL SPONDYLOSIS 10/18/2017 REBEL IVY SUPERVISOR SECURITIES VAULT Ot 397.0 TRICUSPID VALVE DISEASE 10/18/2017 REBEL IVY L SUPERVISOR SECURITIES VAULT Ot 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 NEC 10/18/2017 BAIREBEL JC SUPERVISOR SECURITIES VAULT Ot 424.0 MITRAL VALVE DISORDER 10/18/2017 BAIREBEL JC L SUPERVISOR SECURITIES VAULT Ot 272.4 HYPERLIPIDEMIA NEC/NOS 10/18/2017 BAIREBEL JC L SUPERVISOR SECURITIES VAULT Ot V58.69 OTH MED,LT,CURRENT USE 10/18/2017 NINILENDER , ADEN Mohr Ot 786.50 CHEST PAIN NOS 10/18/2017 GELLENDER DO, ADEN Mohr Ot V15.88 HISTORY OF FALL 10/18/2017 REBEL IVY L SUPERVISOR SECURITIES VAULT Ot 272.4 HYPERLIPIDEMIA NEC/NOS 10/18/2017 GELLENDER DO, ADEN Mohr Ot 250.00 DIAB BHAVIK WO COMPL, TYPE II OR UNSPEC TY 10/18/2017 GELLENDER DO, ADEN Mohr Ot 401.9 HYPERTENSION NOS 10/18/2017 GELLENDER DO, ADEN Mohr Ot V76.12 OTH SCREEN MAMMO-MALIGN NEOPLASM OF VAN 10/18/2017 LEANDROHOSEA REBEL L SUPERVISOR SECURITIES VAULT Ot 250.00 DIAB BHAVIK WO COMPL, TYPE II OR UNSPEC TY 10/18/2017 BAIREBEL JC L SUPERVISOR SECURITIES VAULT Ot 272.4 HYPERLIPIDEMIA NEC/NOS 10/18/2017 REBEL IVY L SUPERVISOR SECURITIES VAULT Ot 401.9 HYPERTENSION NOS 10/18/2017 Ot 250.00 DIAB BHAVIK WO COMPL, TYPE II OR UNSPEC TY 10/18/2017 BAIREBEL JC L SUPERVISOR SECURITIES VAULT Ot 272.4 HYPERLIPIDEMIA NEC/NOS 10/18/2017 GELLENDER DO, ADEN Fani Ot 250.00 DIAB BHAVIK WO COMPL, TYPE II OR UNSPEC TY 10/18/2017 NINILENDER DO, ADEN Mohr Ot 401.9 HYPERTENSION NOS 10/18/2017 GELLENDER DO, ADEN Mohr Ot 782.3 EDEMA 10/18/2017 GELLENDER DO, ADEN Mohr Ot Z12.31 ENCNTR SCREEN MAMMOGRAM FOR MALIGNANT NE 10/18/2017 IOANA TARIQ DO Ot M16.12 UNILATERAL PRIMARY OSTEOARTHRITIS, LEFT 10/18/2017 IOANA TARIQ DO Ot M47.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, LUMBAR REGION 10/18/2017 ANNADER ADEN KATE Ot E11.9 TYPE 2 DIABETES MELLITUS WITHOUT COMPLIC 10/18/2017 ADEN LEE DO Ot I10 ESSENTIAL (PRIMARY) HYPERTENSION 10/18/2017 Ot E11.9 TYPE 2 DIABETES MELLITUS WITHOUT COMPLIC 10/18/2017 Ot E78.5 HYPERLIPIDEMIA, UNSPECIFIED 10/18/2017 GELLENDER DO, ADEN Mohr Ot E11.9 TYPE 2 DIABETES MELLITUS WITHOUT COMPLIC 10/18/2017 GELLENDER DO, ADEN Mohr Ot E78.5 HYPERLIPIDEMIA, UNSPECIFIED 10/18/2017 GELLENDER DO, ADEN Mohr Ot D69.6 THROMBOCYTOPENIA, UNSPECIFIED 10/18/2017 GELLENDER DO, DAEN Mohr Ot D72.819 DECREASED WHITE BLOOD CELL COUNT, UNSPEC 10/18/2017 GELLENDER DO, ADEN Mohr Ot Z12.31 ENCNTR SCREEN MAMMOGRAM FOR MALIGNANT NE 10/18/2017 GELLENDER DO, ADEN Mohr Ot E11.9 TYPE 2 DIABETES MELLITUS WITHOUT COMPLIC 10/18/2017 GELLENDER DO, ADEN Mohr Ot E78.5 HYPERLIPIDEMIA, UNSPECIFIED 10/18/2017 GELLENDER DO, ADEN Mohr Ot I10 ESSENTIAL (PRIMARY) HYPERTENSION 10/18/2017 GELLENDER DO, ADEN Mohr Ot E05.90 THYROTOXICOSIS, UNSP WITHOUT THYROTOXIC 10/18/2017 GELLENDER DO, ADEN Mohr Ot E11.9 TYPE 2 DIABETES MELLITUS WITHOUT COMPLIC 10/18/2017 GELLENDER DO, ADEN Mohr Ot I10 ESSENTIAL (PRIMARY) HYPERTENSION 10/18/2017 GELLENDER DO, ADEN Mohr Ot D69.6 THROMBOCYTOPENIA, UNSPECIFIED 10/18/2017 GELLENDER DO, ADEN Mohr Ot E11.9 TYPE 2 DIABETES MELLITUS WITHOUT COMPLIC 10/18/2017 GELLENDER DO, ADEN Mohr Ot E78.5 HYPERLIPIDEMIA, UNSPECIFIED 10/18/2017 GELLENDER DO, ADEN Mohr Ot R53.1 WEAKNESS 10/20/2017 FAINA, ERIN TREADWELLP Ot E11.9 TYPE 2 DIABETES MELLITUS WITHOUT COMPLIC 10/20/2017 FAINA, ERIN SUPERVISOR SECURITIES VAULT Ot E66.01 MORBID (SEVERE) OBESITY DUE TO EXCESS CA 10/20/2017 FAINA, ERIN SUPERVISOR SECURITIES VAULT Ot E78.00 PURE HYPERCHOLESTEROLEMIA, UNSPECIFIED 10/20/2017 FAINA, ERNI SUPERVISOR SECURITIES VAULT Ot I10 ESSENTIAL (PRIMARY) HYPERTENSION 10/20/2017 FAINA, ERIN SUPERVISOR SECURITIES VAULT Ot K21.9 GASTRO-ESOPHAGEAL REFLUX DISEASE WITHOUT 10/20/2017 FAINA, ERIN SUPERVISOR SECURITIES VAULT Ot S09.90XA UNSPECIFIED INJURY OF HEAD, INITIAL ENCO 10/20/2017 FAINA, ERIN SUPERVISOR SECURITIES VAULT Ot W01.10XA FALL SAME LEV FROM SLIP/TRIP W STRIKE AG 10/20/2017 FAINA, ERIN TREADWELLP Ot Z68.41 BODY MASS INDEX (BMI) 40.0-44.9, ADULT 10/20/2017 ERIN EISENBERG Ot Z79.84 CRTT (CURRENT) USE OF ORAL HYPOGLYC 10/20/2017 FAINA, ERIN TREADWELLP Ot Z86.718 PERSONAL HISTORY OF OTHER VENOUS THROMBO 10/20/2017 FAINA, ERIN ALVA Ot Z88.0 ALLERGY STATUS TO PENICILLIN 10/20/2017 FAINA, ERIN TREADWELLP Ot Z88.5 ALLERGY STATUS TO NARCOTIC AGENT STATUS 10/20/2017 FAINA, ERIN TREADWELLP Ot Z88.6 ALLERGY STATUS TO ANALGESIC AGENT STATUS 10/20/2017 FAINA, ERIN TREADWELLP Ot Z96.653 PRESENCE OF ARTIFICIAL KNEE JOINT, BILAT 10/22/2017 GELLENDER DO, ADEN Mohr Ot R53.1 WEAKNESS 11/18/2017 GELLENDER DO, ADEN Mohr Ot R53.1 WEAKNESS 11/18/2017 GELLENDER DO, ADEN Mohr Ot R53.1 WEAKNESS 11/25/2017 GELLENDER DO, ADEN Mohr Ot R53.1 WEAKNESS 11/25/2017 GELLENDER DO, ADEN Mohr Ot R53.1 WEAKNESS 12/16/2017 GELLENDER DO, ADEN Mohr Ot R53.1 WEAKNESS 03/09/2018 GELLENDER DO, ADEN Mohr Ot B37.2 CANDIDIASIS OF SKIN AND NAIL 03/09/2018 GELLENDER DO, ADEN Mohr Ot E11.9 TYPE 2 DIABETES MELLITUS WITHOUT COMPLIC 03/09/2018 GELLENDER DO, ADEN Mohr Ot E66.9 OBESITY, UNSPECIFIED 03/09/2018 GELLENDER DO, ADEN Mohr Ot E78.00 PURE HYPERCHOLESTEROLEMIA, UNSPECIFIED 03/09/2018 GELLENDER DO, ADEN Mohr Ot I10 ESSENTIAL (PRIMARY) HYPERTENSION 03/09/2018 GELLENDER DO, ADEN Mohr Ot I49.3 VENTRICULAR PREMATURE DEPOLARIZATION 03/09/2018 GELLENDER DO, ADEN Mohr Ot I63.9 CEREBRAL INFARCTION, UNSPECIFIED 03/09/2018 GELLENDER DO, ADEN Mohr Ot K21.9 GASTRO-ESOPHAGEAL REFLUX DISEASE WITHOUT 03/09/2018 GELLENDER DO, ADEN Mohr Ot M19.91 PRIMARY OSTEOARTHRITIS, UNSPECIFIED SITE 03/09/2018 GELLENDER DO, ADEN Mohr Ot R15.9 FULL INCONTINENCE OF FECES 03/09/2018 GELLENDER DO, ADEN Mohr Ot R26.2 DIFFICULTY IN WALKING, NOT ELSEWHERE CLA 03/09/2018 GELLENDER DO, ADEN Mohr Ot R32 UNSPECIFIED URINARY INCONTINENCE 03/09/2018 GELLENDER DO, ADEN Mohr Ot R41.0 DISORIENTATION, UNSPECIFIED 03/09/2018 GELLENDER DO, ADEN Mohr Ot R53.1 WEAKNESS 03/09/2018 GELLENDER DO, ADEN Mohr Ot Z68.43 BODY MASS INDEX (BMI) 50-59.9 , ADULT 03/09/2018 GELLENDER DO, ADEN Mohr Ot Z79.84 HALFWAY (CURRENT) USE OF ORAL HYPOGLYC 03/09/2018 GELLENDER DO, ADEN Mohr Ot Z86.711 PERSONAL HISTORY OF PULMONARY EMBOLISM 03/09/2018 GELLENDER DO, ADEN Mohr Ot Z86.718 PERSONAL HISTORY OF OTHER VENOUS THROMBO 03/09/2018 GELLENDER DO, ADEN Mohr Ot Z95.828 PRESENCE OF OTHER VASCULAR IMPLANTS AND 03/09/2018 GELLENDER DO, ADEN Mohr Ot Z96.653 PRESENCE OF ARTIFICIAL KNEE JOINT, BILAT 03/09/2018 GELLENDER DO, ADEN Mohr Ot B37.2 CANDIDIASIS OF SKIN AND NAIL 03/09/2018 GELLENDER DO, ADEN Mohr Ot E11.9 TYPE 2 DIABETES MELLITUS WITHOUT COMPLIC 03/09/2018 GELLENDER DO, ADEN Mohr Ot E66.9 OBESITY, UNSPECIFIED 03/09/2018 GELLENDER DO, ADEN Mohr Ot E78.00 PURE HYPERCHOLESTEROLEMIA, UNSPECIFIED 03/09/2018 GELLENDER DO, ADEN Mohr Ot I10 ESSENTIAL (PRIMARY) HYPERTENSION 03/09/2018 GELLENDER DO, ADEN Mohr Ot I49.3 VENTRICULAR PREMATURE DEPOLARIZATION 03/09/2018 GELLENDER DO, ADEN Mohr Ot I63.9 CEREBRAL INFARCTION, UNSPECIFIED 03/09/2018 GELLENDER DO, ADEN Mohr Ot K21.9 GASTRO-ESOPHAGEAL REFLUX DISEASE WITHOUT 03/09/2018 GELLENDER DO, ADEN Mohr Ot M19.91 PRIMARY OSTEOARTHRITIS, UNSPECIFIED SITE 03/09/2018 GELLENDER DO, ADEN Mohr Ot R13.10 DYSPHAGIA, UNSPECIFIED 03/09/2018 GELLENDER DO, ADEN Mohr Ot R15.9 FULL INCONTINENCE OF FECES 03/09/2018 GELLENDER DO, ADEN Mohr Ot R26.2 DIFFICULTY IN WALKING, NOT ELSEWHERE CLA 03/09/2018 GELLENDER DO, ADEN Mohr Ot R32 UNSPECIFIED URINARY INCONTINENCE 03/09/2018 GELLENDER DO, ADEN Mohr Ot R41.0 DISORIENTATION, UNSPECIFIED 03/09/2018 GELLENDER DO, ADEN Mohr Ot R53.1 WEAKNESS 03/09/2018 GELLENDER DO, ADEN Mohr Ot Z68.43 BODY MASS INDEX (BMI) 50-59.9 , ADULT 03/09/2018 GELLENDER DO, ADEN Mohr Ot Z79.84 HALFWAY (CURRENT) USE OF ORAL HYPOGLYC 03/09/2018 GELLENDER DO, ADEN Mohr Ot Z86.711 PERSONAL HISTORY OF PULMONARY EMBOLISM 03/09/2018 GELLENDER DO, ADEN Mohr Ot Z86.718 PERSONAL HISTORY OF OTHER VENOUS THROMBO 03/09/2018 GELLENDER DO, ADEN Mohr Ot Z95.828 PRESENCE OF OTHER VASCULAR IMPLANTS AND 03/09/2018 GELLENDER DO, ADEN Mohr Ot Z96.653 PRESENCE OF ARTIFICIAL KNEE JOINT, BILAT 03/11/2018 GELLENDER DO, ADEN Mohr Ot B37.2 CANDIDIASIS OF SKIN AND NAIL 03/11/2018 GELLENDER DO, ADEN Mohr Ot D69.6 THROMBOCYTOPENIA, UNSPECIFIED 03/11/2018 GELLENDER DO, ADEN Mohr Ot E11.9 TYPE 2 DIABETES MELLITUS WITHOUT COMPLIC 03/11/2018 GELLENDER DO, ADEN Mohr Ot E66.9 OBESITY, UNSPECIFIED 03/11/2018 GELLENDER DO, ADEN Mohr Ot E78.00 PURE HYPERCHOLESTEROLEMIA, UNSPECIFIED 03/11/2018 GELLENDER DO, ADEN Mohr Ot I10 ESSENTIAL (PRIMARY) HYPERTENSION 03/11/2018 GELLENDER DO, ADEN Mohr Ot I49.3 VENTRICULAR PREMATURE DEPOLARIZATION 03/11/2018 GELLENDER DO, ADEN Mohr Ot I63.9 CEREBRAL INFARCTION, UNSPECIFIED 03/11/2018 GELLENDER DO, ADEN Mohr Ot K21.9 GASTRO-ESOPHAGEAL REFLUX DISEASE WITHOUT 03/11/2018 GELLENDER DO, ADEN Mohr Ot M19.91 PRIMARY OSTEOARTHRITIS, UNSPECIFIED SITE 03/11/2018 GELLENDER DO, ADEN Mohr Ot R13.10 DYSPHAGIA, UNSPECIFIED 03/11/2018 GELLENDER DO, ADEN Mohr Ot R15.9 FULL INCONTINENCE OF FECES 03/11/2018 GELLENDER DO, ADEN Mohr Ot R26.2 DIFFICULTY IN WALKING, NOT ELSEWHERE CLA 03/11/2018 JESUS KATE, ADEN Mohr Ot R29.700 NIHSS SCORE 0 03/11/2018 GELLENDER DOADEN Ot R32 UNSPECIFIED URINARY INCONTINENCE 03/11/2018 GELLENDER DO, ADEN Mohr Ot R41.0 DISORIENTATION, UNSPECIFIED 03/11/2018 NINILENDER DOADEN Ot R47.1 DYSARTHRIA AND ANARTHRIA 03/11/2018 GELLENDER DOADEN Ot R53.1 WEAKNESS 03/11/2018 GELLENDER DO, ADEN Mohr Ot Z68.43 BODY MASS INDEX (BMI) 50-59.9 , ADULT 03/11/2018 GELLENDER DO, ADEN Mohr Ot Z79.84 HALFWAY (CURRENT) USE OF ORAL HYPOGLYC 03/11/2018 NINILENDER DO, ADEN Mohr Ot Z86.711 PERSONAL HISTORY OF PULMONARY EMBOLISM 03/11/2018 GELLENDER DO, ADEN Mohr Ot Z86.718 PERSONAL HISTORY OF OTHER VENOUS THROMBO 03/11/2018 NINILENRICK DO, ADEN Morh Ot Z95.828 PRESENCE OF OTHER VASCULAR IMPLANTS AND 03/11/2018 GELLENDER DOADEN Ot Z96.653 PRESENCE OF ARTIFICIAL KNEE JOINT, BILAT 03/16/2018 LORENZA FOWLER, HECTOR E Ot D64.9 ANEMIA, UNSPECIFIED 03/16/2018 LORENZA FOWLER, HECTOR E Ot D69.6 THROMBOCYTOPENIA, UNSPECIFIED 03/16/2018 LORENZA FOWLER, HECTOR E Ot E11.9 TYPE 2 DIABETES MELLITUS WITHOUT COMPLIC 03/16/2018 LORENZA FOWLER HECTOR E Ot E66.9 OBESITY, UNSPECIFIED 03/16/2018 LORENZA FOWLER HECTOR E Ot E78.00 PURE HYPERCHOLESTEROLEMIA, UNSPECIFIED 03/16/2018 LORENZA FOWLER HECTOR E Ot E78.2 MIXED HYPERLIPIDEMIA 03/16/2018 LORENZA FOWLER HECTOR E Ot I10 ESSENTIAL (PRIMARY) HYPERTENSION 03/16/2018 HECTOR BRITT MD E Ot I69.322 DYSARTHRIA FOLLOWING CEREBRAL INFARCTION 03/16/2018 HECTOR BRITT MD E Ot 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 03/16/2018 LORENZA FOWLER HECTOR E Ot I69.398 OTHER SEQUELAE OF CEREBRAL INFARCTION 03/16/2018 HECTOR BRITT MD Ot R26.2 DIFFICULTY IN WALKING, NOT ELSEWHERE CLA 03/16/2018 HECTOR BRITT MD Ot R29.898 OTH SYMPTOMS AND SIGNS INVOLVING THE MUS 03/16/2018 HECTOR BRITT MD Ot Z68.42 BODY MASS INDEX (BMI) 45.0-49.9, ADULT 03/16/2018 HECTOR BRITT MD Ot Z79.84 CRTT (CURRENT) USE OF ORAL HYPOGLYC 03/17/2018 HECTOR BRITT MD Ot D64.9 ANEMIA, UNSPECIFIED 03/17/2018 HECTOR BRITT MD Ot D69.6 THROMBOCYTOPENIA, UNSPECIFIED 03/17/2018 HECTOR BRITT MD Ot E11.9 TYPE 2 DIABETES MELLITUS WITHOUT COMPLIC 03/17/2018 HECTOR BRITT MD Ot E66.9 OBESITY, UNSPECIFIED 03/17/2018 HECTOR BRITT MD E Ot E78.00 PURE HYPERCHOLESTEROLEMIA, UNSPECIFIED 03/17/2018 HECTOR BRITT MD E Ot E78.2 MIXED HYPERLIPIDEMIA 03/17/2018 HECTOR BRITT MD Ot I10 ESSENTIAL (PRIMARY) HYPERTENSION 03/17/2018 HECTOR BRITT MD Ot I69.322 DYSARTHRIA FOLLOWING CEREBRAL INFARCTION 03/17/2018 HECTOR BRITT MD E Ot 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 03/17/2018 HECTOR BRITT MD E Ot I69.398 OTHER SEQUELAE OF CEREBRAL INFARCTION 03/17/2018 HECTOR BRITT MD Ot R26.2 DIFFICULTY IN WALKING, NOT ELSEWHERE CLA 03/17/2018 HECTOR BRITT MD E Ot R29.898 OTH SYMPTOMS AND SIGNS INVOLVING THE MUS 03/17/2018 HECTOR BRITT MD Ot Z68.42 BODY MASS INDEX (BMI) 45.0-49.9, ADULT 03/17/2018 HECTOR BRITT MD Ot Z79.84 CRTT (CURRENT) USE OF ORAL HYPOGLYC 03/17/2018 HECTOR BRITT MD Ot D64.9 ANEMIA, UNSPECIFIED 03/17/2018 HECTOR BRITT MD Ot D69.6 THROMBOCYTOPENIA, UNSPECIFIED 03/17/2018 HECTOR BRITT MD Ot E11.9 TYPE 2 DIABETES MELLITUS WITHOUT COMPLIC 03/17/2018 HECTOR BRITT MD E Ot E66.9 OBESITY, UNSPECIFIED 03/17/2018 HECTOR BRITT MD Ot E78.00 PURE HYPERCHOLESTEROLEMIA, UNSPECIFIED 03/17/2018 HECTOR BRITT MD E Ot E78.2 MIXED HYPERLIPIDEMIA 03/17/2018 HECTOR BRITT MD Ot I10 ESSENTIAL (PRIMARY) HYPERTENSION 03/17/2018 HECTOR BRITT MD Ot I69.322 DYSARTHRIA FOLLOWING CEREBRAL INFARCTION 03/17/2018 HECTOR BRITT MD Ot 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 03/17/2018 HECTOR BRITT MD Ot I69.398 OTHER SEQUELAE OF CEREBRAL INFARCTION 03/17/2018 HECTOR BRITT MD Ot R26.2 DIFFICULTY IN WALKING, NOT ELSEWHERE CLA 03/17/2018 HECTOR BRITT MD Ot R29.898 OTH SYMPTOMS AND SIGNS INVOLVING THE MUS 03/17/2018 HECTOR BRITT MD Ot Z68.42 BODY MASS INDEX (BMI) 45.0-49.9, ADULT 03/17/2018 HECTOR BRITT MD Ot Z79.84 CRTT (CURRENT) USE OF ORAL HYPOGLYC 03/17/2018 HECTOR BRITT MD Ot D64.9 ANEMIA, UNSPECIFIED 03/17/2018 HECTOR BRITT MD Ot D69.6 THROMBOCYTOPENIA, UNSPECIFIED 03/17/2018 HECTOR BRITT MD E Ot E11.9 TYPE 2 DIABETES MELLITUS WITHOUT COMPLIC 03/17/2018 HECTOR BRITT MD Ot E66.9 OBESITY, UNSPECIFIED 03/17/2018 HECTOR BRITT MD Ot E78.00 PURE HYPERCHOLESTEROLEMIA, UNSPECIFIED 03/17/2018 HECTOR BRITT MD Ot E78.2 MIXED HYPERLIPIDEMIA 03/17/2018 HECTOR BRITT MD Ot I10 ESSENTIAL (PRIMARY) HYPERTENSION 03/17/2018 HECTOR BRITT MD Ot I69.322 DYSARTHRIA FOLLOWING CEREBRAL INFARCTION 03/17/2018 HECTOR BRITT MD Ot 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 03/17/2018 HECTOR BRITT MD Ot I69.398 OTHER SEQUELAE OF CEREBRAL INFARCTION 03/17/2018 HECTOR BRITT MD Ot R26.2 DIFFICULTY IN WALKING, NOT ELSEWHERE CLA 03/17/2018 HECTOR BRITT MD Ot R29.898 OTH SYMPTOMS AND SIGNS INVOLVING THE MUS 03/17/2018 HECTOR BRITT MD Ot Z68.42 BODY MASS INDEX (BMI) 45.0-49.9, ADULT 03/17/2018 HECTOR BRITT MD Ot Z79.84 CRTT (CURRENT) USE OF ORAL HYPOGLYC 03/18/2018 HECTOR BRITT MD E Ot D64.9 ANEMIA, UNSPECIFIED 03/18/2018 HECTOR BRITT MD E Ot D69.6 THROMBOCYTOPENIA, UNSPECIFIED 03/18/2018 HECTOR BRITT MD E Ot E11.9 TYPE 2 DIABETES MELLITUS WITHOUT COMPLIC 03/18/2018 HECTOR BRITT MD E Ot E66.9 OBESITY, UNSPECIFIED 03/18/2018 HECTOR BRITT MD Ot E78.00 PURE HYPERCHOLESTEROLEMIA, UNSPECIFIED 03/18/2018 HECTOR BRITT MD E Ot E78.2 MIXED HYPERLIPIDEMIA 03/18/2018 HECTOR BRITT MD E Ot I10 ESSENTIAL (PRIMARY) HYPERTENSION 03/18/2018 HECTOR BRITT MD E Ot I69.322 DYSARTHRIA FOLLOWING CEREBRAL INFARCTION 03/18/2018 HECTOR BRITT MD E Ot 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 03/18/2018 HECTOR BRITT MD E Ot I69.398 OTHER SEQUELAE OF CEREBRAL INFARCTION 03/18/2018 HECTOR BRITT MD Ot R26.2 DIFFICULTY IN WALKING, NOT ELSEWHERE CLA 03/18/2018 HECTOR BRITT MD E Ot R29.898 OT SYMPTOMS AND SIGNS INVOLVING THE MUS 03/18/2018 HECTOR BRITT MD Ot Z68.42 BODY MASS INDEX (BMI) 45.0-49.9, ADULT 03/18/2018 HECTOR BRITT MD E Ot Z79.84 HALFWAY (CURRENT) USE OF ORAL HYPOGLYC 03/19/2018 HECTOR BRITT MD E Ot D64.9 ANEMIA, UNSPECIFIED 03/19/2018 HECTOR BRITT MD E Ot D69.6 THROMBOCYTOPENIA, UNSPECIFIED 03/19/2018 HECTOR BRITT MD Ot E11.9 TYPE 2 DIABETES MELLITUS WITHOUT COMPLIC 03/19/2018 HECTOR BRITT MD E Ot E66.9 OBESITY, UNSPECIFIED 03/19/2018 HECTOR BRITT MD E Ot E78.00 PURE HYPERCHOLESTEROLEMIA, UNSPECIFIED 03/19/2018 HECTOR BRITT MD E Ot E78.2 MIXED HYPERLIPIDEMIA 03/19/2018 HECTOR BRITT MD E Ot I10 ESSENTIAL (PRIMARY) HYPERTENSION 03/19/2018 HECTOR BRITT MD E Ot I69.322 DYSARTHRIA FOLLOWING CEREBRAL INFARCTION 03/19/2018 HECTOR BRITT MD E Ot 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 03/19/2018 HECTOR BRITT MD E Ot I69.398 OTHER SEQUELAE OF CEREBRAL INFARCTION 03/19/2018 HECTOR BRITT MD E Ot R26.2 DIFFICULTY IN WALKING, NOT ELSEWHERE CLA 03/19/2018 HECTOR BRITT MD E Ot R29.898 OTH SYMPTOMS AND SIGNS INVOLVING THE MUS 03/19/2018 HECTOR BRITT MD Ot Z68.42 BODY MASS INDEX (BMI) 45.0-49.9, ADULT 03/19/2018 HECTOR BRITT MD Ot Z79.84 HALFWAY (CURRENT) USE OF ORAL HYPOGLYC 03/20/2018 HECTOR BRITT MD E Ot D64.9 ANEMIA, UNSPECIFIED 03/20/2018 HECTOR BRITT MD E Ot D69.6 THROMBOCYTOPENIA, UNSPECIFIED 03/20/2018 LORENZA FOWLER HECTOR E Ot E11.9 TYPE 2 DIABETES MELLITUS WITHOUT COMPLIC 03/20/2018 HECTOR BRITT MD E Ot E66.9 OBESITY, UNSPECIFIED 03/20/2018 HECTOR BRITT MD E Ot E78.00 PURE HYPERCHOLESTEROLEMIA, UNSPECIFIED 03/20/2018 HECTOR BRITT MD E Ot E78.2 MIXED HYPERLIPIDEMIA 03/20/2018 HECTOR BRITT MD E Ot I10 ESSENTIAL (PRIMARY) HYPERTENSION 03/20/2018 HECTOR BRITT MD E Ot I69.322 DYSARTHRIA FOLLOWING CEREBRAL INFARCTION 03/20/2018 HECTOR BRITT MD E Ot 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 03/20/2018 MITCH BRITT MDIC E Ot I69.398 OTHER SEQUELAE OF CEREBRAL INFARCTION 03/20/2018 HECTOR BRITT MD Ot R26.2 DIFFICULTY IN WALKING, NOT ELSEWHERE CLA 03/20/2018 HECTOR BRITT MD E Ot R29.898 OTH SYMPTOMS AND SIGNS INVOLVING THE MUS 03/20/2018 HECTOR BRITT MD Ot Z68.42 BODY MASS INDEX (BMI) 45.0-49.9, ADULT 03/20/2018 HECTOR BRITT MD Ot Z79.84 CRTT (CURRENT) USE OF ORAL HYPOGLYC 03/21/2018 HECTOR BRITT MD E Ot D64.9 ANEMIA, UNSPECIFIED 03/21/2018 HECTOR BRITT MD E Ot D69.6 THROMBOCYTOPENIA, UNSPECIFIED 03/21/2018 HECTOR BRITT MD E Ot E11.9 TYPE 2 DIABETES MELLITUS WITHOUT COMPLIC 03/21/2018 BRITT MD, HECTOR E Ot E66.9 OBESITY, UNSPECIFIED 03/21/2018 HECTOR BRITT MD Ot E78.00 PURE HYPERCHOLESTEROLEMIA, UNSPECIFIED 03/21/2018 HECTOR BRITT MD Ot E78.2 MIXED HYPERLIPIDEMIA 03/21/2018 HECTOR BRITT MD Ot I10 ESSENTIAL (PRIMARY) HYPERTENSION 03/21/2018 HECTOR BRITT MD Ot I69.322 DYSARTHRIA FOLLOWING CEREBRAL INFARCTION 03/21/2018 HECTOR BRITT MD Ot 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 03/21/2018 HECTOR BRITT MD Ot I69.398 OTHER SEQUELAE OF CEREBRAL INFARCTION 03/21/2018 HECTOR BRITT MD Ot R26.2 DIFFICULTY IN WALKING, NOT ELSEWHERE CLA 03/21/2018 HECTOR BRITT MD Ot R29.898 OTH SYMPTOMS AND SIGNS INVOLVING THE MUS 03/21/2018 HECTOR BRITT MD Ot Z68.42 BODY MASS INDEX (BMI) 45.0-49.9, ADULT 03/21/2018 HECTOR BRITT MD Ot Z79.84 CRTT (CURRENT) USE OF ORAL HYPOGLYC 03/22/2018 HECTOR BRITT MD Ot D64.9 ANEMIA, UNSPECIFIED 03/22/2018 HECTOR BRITT MD Ot D69.6 THROMBOCYTOPENIA, UNSPECIFIED 03/22/2018 HECTOR BRITT MD Ot E11.9 TYPE 2 DIABETES MELLITUS WITHOUT COMPLIC 03/22/2018 HECTOR BRITT MD Ot E66.9 OBESITY, UNSPECIFIED 03/22/2018 HECTOR BRITT MD Ot E78.00 PURE HYPERCHOLESTEROLEMIA, UNSPECIFIED 03/22/2018 HECTOR BRITT MD Ot E78.2 MIXED HYPERLIPIDEMIA 03/22/2018 HECTOR BRITT MD Ot I10 ESSENTIAL (PRIMARY) HYPERTENSION 03/22/2018 HECTOR BRITT MD Ot I69.322 DYSARTHRIA FOLLOWING CEREBRAL INFARCTION 03/22/2018 HECTOR BRITT MD Ot 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 03/22/2018 HECTOR BRITT MD Ot I69.398 OTHER SEQUELAE OF CEREBRAL INFARCTION 03/22/2018 HECTOR BRITT MD Ot R26.2 DIFFICULTY IN WALKING, NOT ELSEWHERE CLA 03/22/2018 HECTOR BRITT MD Ot R29.898 OTH SYMPTOMS AND SIGNS INVOLVING THE MUS 03/22/2018 HECTOR BRITT MD Ot Z68.42 BODY MASS INDEX (BMI) 45.0-49.9, ADULT 03/22/2018 HECTOR BRITT MD Ot Z79.84 HALFWAY (CURRENT) USE OF ORAL HYPOGLYC 03/22/2018 HECTOR BRITT MD Ot D64.9 ANEMIA, UNSPECIFIED 03/22/2018 HECTOR BRITT MD E Ot D69.6 THROMBOCYTOPENIA, UNSPECIFIED 03/22/2018 HECTOR BRITT MD Ot E11.9 TYPE 2 DIABETES MELLITUS WITHOUT COMPLIC 03/22/2018 HECTOR BRITT MD Ot E66.9 OBESITY, UNSPECIFIED 03/22/2018 HECTOR BRITT MD E Ot E78.00 PURE HYPERCHOLESTEROLEMIA, UNSPECIFIED 03/22/2018 HECTOR BRITT MD E Ot E78.2 MIXED HYPERLIPIDEMIA 03/22/2018 HECTOR BRITT MD E Ot I10 ESSENTIAL (PRIMARY) HYPERTENSION 03/22/2018 HECTOR BRITT MD E Ot I69.322 DYSARTHRIA FOLLOWING CEREBRAL INFARCTION 03/22/2018 HECTOR BRITT MD Ot 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 03/22/2018 HECTOR BRITT MD E Ot I69.398 OTHER SEQUELAE OF CEREBRAL INFARCTION 03/22/2018 HECTOR BRITT MD Ot R26.2 DIFFICULTY IN WALKING, NOT ELSEWHERE CLA 03/22/2018 HECTOR BRITT MD Ot R29.898 OTH SYMPTOMS AND SIGNS INVOLVING THE MUS 03/22/2018 HECTOR BRITT MD Ot Z68.42 BODY MASS INDEX (BMI) 45.0-49.9, ADULT 03/22/2018 HECTOR BRITT MD Ot Z79.84 HALFWAY (CURRENT) USE OF ORAL HYPOGLYC 03/23/2018 HECTOR BRITT MD Ot D64.9 ANEMIA, UNSPECIFIED 03/23/2018 HECTOR BRITT MD E Ot D69.6 THROMBOCYTOPENIA, UNSPECIFIED 03/23/2018 HECTOR BRITT MD Ot E11.9 TYPE 2 DIABETES MELLITUS WITHOUT COMPLIC 03/23/2018 HECTOR BRITT MD E Ot E66.9 OBESITY, UNSPECIFIED 03/23/2018 HECTOR BRITT MD E Ot E78.00 PURE HYPERCHOLESTEROLEMIA, UNSPECIFIED 03/23/2018 HECTOR BRITT MD E Ot E78.2 MIXED HYPERLIPIDEMIA 03/23/2018 HECTOR BRITT MD E Ot I10 ESSENTIAL (PRIMARY) HYPERTENSION 03/23/2018 BRITT MD, HECTOR E Ot I69.322 DYSARTHRIA FOLLOWING CEREBRAL INFARCTION 03/23/2018 HECTOR BRITT MD E Ot 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 03/23/2018 HECTOR BRITT MD E Ot I69.398 OTHER SEQUELAE OF CEREBRAL INFARCTION 03/23/2018 HECTOR BRITT MD E Ot R26.2 DIFFICULTY IN WALKING, NOT ELSEWHERE CLA 03/23/2018 HECTOR BRITT MD Ot R29.898 OTH SYMPTOMS AND SIGNS INVOLVING THE MUS 03/23/2018 HECTOR BRITT MD Ot Z68.42 BODY MASS INDEX (BMI) 45.0-49.9, ADULT 03/23/2018 HECTOR BRITT MD E Ot Z79.84 CRTT (CURRENT) USE OF ORAL HYPOGLYC 03/24/2018 HECTOR BRITT MD E Ot D64.9 ANEMIA, UNSPECIFIED 03/24/2018 HECTOR BRITT MD E Ot D69.6 THROMBOCYTOPENIA, UNSPECIFIED 03/24/2018 HECTOR BRITT MD E Ot E11.9 TYPE 2 DIABETES MELLITUS WITHOUT COMPLIC 03/24/2018 HECTOR BRITT MD E Ot E66.9 OBESITY, UNSPECIFIED 03/24/2018 HECTOR BRITT MD E Ot E78.00 PURE HYPERCHOLESTEROLEMIA, UNSPECIFIED 03/24/2018 HECTOR BRITT MD E Ot E78.2 MIXED HYPERLIPIDEMIA 03/24/2018 HECTOR BRITT MD E Ot I10 ESSENTIAL (PRIMARY) HYPERTENSION 03/24/2018 HECTOR BRITT MD E Ot I69.322 DYSARTHRIA FOLLOWING CEREBRAL INFARCTION 03/24/2018 HECTOR BRITT MD E Ot 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 03/24/2018 HECTOR BRITT MD E Ot I69.398 OTHER SEQUELAE OF CEREBRAL INFARCTION 03/24/2018 HECTOR BRITT MD E Ot R26.2 DIFFICULTY IN WALKING, NOT ELSEWHERE CLA 03/24/2018 HECTOR BRITT MD E Ot R29.898 OTH SYMPTOMS AND SIGNS INVOLVING THE MUS 03/24/2018 HECTOR BRITT MD Ot Z68.42 BODY MASS INDEX (BMI) 45.0-49.9, ADULT 03/24/2018 HECTOR BRITT MD E Ot Z79.84 CRTT (CURRENT) USE OF ORAL HYPOGLYC 03/24/2018 HECTOR BRITT MD Ot D64.9 ANEMIA, UNSPECIFIED 03/24/2018 HECTOR BRITT MD Ot D69.6 THROMBOCYTOPENIA, UNSPECIFIED 03/24/2018 HECTOR BRITT MD Ot E11.9 TYPE 2 DIABETES MELLITUS WITHOUT COMPLIC 03/24/2018 HECTOR BRITT MD Ot E66.9 OBESITY, UNSPECIFIED 03/24/2018 HECTOR BRITT MD Ot E78.00 PURE HYPERCHOLESTEROLEMIA, UNSPECIFIED 03/24/2018 HECTOR BRITT MD Ot E78.2 MIXED HYPERLIPIDEMIA 03/24/2018 HECTOR BRITT MD Ot E86.0 DEHYDRATION 03/24/2018 HECTOR BRITT MD Ot I08.3 COMB RHEUMATIC DISORD OF MITRAL, AORTIC 03/24/2018 HECTOR BRITT MD Ot I10 ESSENTIAL (PRIMARY) HYPERTENSION 03/24/2018 HECTOR BRITT MD Ot I12.9 HYPERTENSIVE CHRONIC KIDNEY DISEASE W ST 03/24/2018 HECTOR BRITT MD Ot I69.322 DYSARTHRIA FOLLOWING CEREBRAL INFARCTION 03/24/2018 HECTOR BRITT MD Ot 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 03/24/2018 HECTOR BRITT MD Ot I69.398 OTHER SEQUELAE OF CEREBRAL INFARCTION 03/24/2018 HECTOR BRITT MD Ot I87.2 VENOUS INSUFFICIENCY (CHRONIC) (PERIPHER 03/24/2018 HECTOR BRITT MD Ot K80.20 CALCULUS OF GALLBLADDER W/O CHOLECYSTITI 03/24/2018 HECTOR BRITT MD Ot N18.9 CHRONIC KIDNEY DISEASE, UNSPECIFIED 03/24/2018 HECTOR BRITT MD Ot 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 URETER, UNSPECIFI 03/24/2018 HECTOR BRITT MD Ot R26.2 DIFFICULTY IN WALKING, NOT ELSEWHERE CLA 03/24/2018 HECTOR BRITT MD Ot R29.898 OT SYMPTOMS AND SIGNS INVOLVING THE MUS 03/24/2018 HECTOR BRITT MD Ot Z68.42 BODY MASS INDEX (BMI) 45.0-49.9, ADULT 03/24/2018 HECTOR BRITT MD Ot Z79.84 HALFWAY (CURRENT) USE OF ORAL HYPOGLYC Procedures Code Description Performed By Performed On [id number] INSERT OF MONITOR DEV INTO CHEST SUBCU/F 03/19/2018 Results Test Result Range Automated blood complete [...] 08/05/17 08:25 Hemoglobin A1c 5.8 % 4.5-6.2 Complete urinalysis with reflex to culture - 03/08/18 14:14 Urine color determination YELLOW NRG Urine clarity determination CLEAR NRG Urine pH measurement by test strip 7 5-9 Specific gravity of urine by test strip 1.010 1.016- 1.022 Urine protein assay by test [...] urobilinogen measurement by automated test strip (mass/volume) 1 mg/dL NORMAL Urine leukocyte esterase detection by dipstick 1+ NEGATIVE Automated urine sediment erythrocyte count by microscopy (number/high power field) [HPF] NRG Automated urine sediment leukocyte count by microscopy (number/high power field ) NONE NRG Bacteria detection in urine sediment by light microscopy TRACE NRG Squamous epithelial cells detection in urine sediment by light microscopy 0-2 NRG Crystals detection in urine sediment by light microscopy NONE NRG Casts detection in urine sediment by light microscopy NONE NRG Mucus detection in urine sediment by light microscopy NEGATIVE NRG Complete urinalysis with reflex to culture NO NRG Complete blood count (CBC) with automated white blood cell (WBC) differential - 03/08/18 14:28 Blood leukocytes automated count (number/volume) 3.7 10*3/uL 4.3-11.0 Blood erythrocytes automated count (number/volume) 4.38 10*6/uL 4.35-5.85 Venous blood hemoglobin measurement (mass/volume) 12.9 g/dL 11.5-16.0 Blood hematocrit (volume fraction) 40 % 35-52 Automated erythrocyte mean corpuscular volume 91 [foz_us] 80-99 Automated erythrocyte mean corpuscular hemoglobin (mass per erythrocyte) 30 pg 25-34 Automated erythrocyte mean corpuscular hemoglobin concentration measurement ( mass/volume) 32 g/dL 32-36 Automated erythrocyte distribution width ratio 14.8 % 10.0-14.5 Automated blood platelet count (count/volume) 96 10*3/uL 130-400 Automated blood platelet mean volume measurement 10.5 [foz_us] 7.4-10.4 Automated blood neutrophils/100 leukocytes 62 % 42-75 Automated blood lymphocytes/100 leukocytes 23 % 12-44 Blood monocytes/100 leukocytes 10 % 0-12 Automated blood eosinophils/100 leukocytes 4 % 0-10 Automated blood basophils/100 leukocytes 1 % 0-10 Blood neutrophils automated count (number/volume) 2.3 10*3 1.8-7.8 Blood lymphocytes automated count (number/volume) 0.9 10*3 1.0-4.0 Blood monocytes automated count (number/volume) 0.4 10*3 0.0-1.0 Automated eosinophil count 0.2 10*3/uL 0.0-0.3 Automated blood basophil count (count/volume) 0.0 10*3/uL 0.0-0.1 Comprehensive metabolic panel - 03/08/18 14:28 Serum or plasma sodium measurement (moles/volume) 141 mmol/L 135-145 Serum or plasma potassium measurement (moles/volume) 3.6 mmol/L 3.6-5.0 Serum or plasma chloride measurement (moles/volume) 105 mmol/L 98-107 Carbon dioxide 25 mmol/L 21-32 Serum or plasma anion gap determination (moles/volume) 11 mmol/L 5-14 Serum or plasma urea nitrogen measurement (mass/volume) 18 mg/dL 7-18 Serum or plasma creatinine measurement (mass/volume) 0.83 mg/dL 0.60-1.30 Serum or plasma urea nitrogen/creatinine mass ratio 22 NRG Serum or plasma creatinine measurement with calculation of estimated glomerular filtration rate > NRG Serum or plasma glucose measurement (mass/volume) 176 mg/dL 70-105 Serum or plasma calcium measurement (mass/volume) 9.4 mg/dL 8.5-10.1 Serum or plasma total bilirubin measurement (mass/volume) 0.9 mg/dL 0.1-1.0 Serum or plasma alkaline phosphatase measurement (enzymatic activity/volume) 77 U/L 40-136 Serum or plasma aspartate aminotransferase measurement (enzymatic activity/ volume) 17 U/L 5-34 Serum or plasma alanine aminotransferase measurement (enzymatic activity/volume ) 10 U/L 0-55 Serum or plasma protein measurement (mass/volume) 6.9 g/dL 6.4-8.2 Serum or plasma albumin measurement (mass/volume) 3.4 g/dL 3.2-4.5 Serum or plasma troponin i.cardiac measurement (mass/volume) - 03/08/18 14:28 Serum or plasma troponin i.cardiac measurement (mass/volume) < ng/ mL <0.30 PT panel in platelet poor plasma by coagulation assay - 03/08/18 15:24 Prothrombin time (PT) in platelet poor plasma by coagulation assay 15.4 s 12.2-14.7 INR in platelet poor plasma or blood by coagulation assay 1.2 0.8-1.4 Activated partial thromboplastin time (aPTT) in platelet poor plasma bycoagulation assay - 03/08/18 15:24 Activated partial thromboplastin time (aPTT) in platelet poor plasma bycoagulation assay 33 s 24-35 Fibrin D-dimer FEU measurement in platelet poor plasma (mass/volume) - 15:24 Fibrin D-dimer FEU measurement in platelet poor plasma (mass/volume) 1.26 ug/mL 0.00-0.49 Complete blood count (CBC) with automated white blood cell (WBC) differential - 03/09/18 05:11 Blood leukocytes automated count (number/volume) 5.4 10*3/uL 4.3-11.0 Blood erythrocytes automated count (number/volume) 3.79 10*6/uL 4.35-5.85 Venous blood hemoglobin measurement (mass/volume) 11.3 g/dL 11.5-16.0 Blood hematocrit (volume fraction) 34 % 35-52 Automated erythrocyte mean corpuscular volume 89 [foz_us] 80-99 Automated erythrocyte mean corpuscular hemoglobin (mass per erythrocyte) 30 pg 25-34 Automated erythrocyte mean corpuscular hemoglobin concentration measurement ( mass/volume) 34 g/dL 32-36 Automated erythrocyte distribution width ratio 14.7 % 10.0-14.5 Automated blood platelet count (count/volume) 119 10*3/uL 130-400 Automated blood platelet mean volume measurement 10.5 [foz_us] 7.4-10.4 Automated blood neutrophils/100 leukocytes 67 % 42-75 Automated blood lymphocytes/100 leukocytes 19 % 12-44 Blood monocytes/100 leukocytes 9 % 0-12 Automated blood eosinophils/100 leukocytes 5 % 0-10 Automated blood basophils/100 leukocytes 0 % 0-10 Blood neutrophils automated count (number/volume) 3.6 10*3 1.8-7.8 Blood lymphocytes automated count (number/volume) 1.0 10*3 1.0-4.0 Blood monocytes automated count (number/volume) 0.5 10*3 0.0-1.0 Automated eosinophil count 0.3 10*3/uL 0.0-0.3 Automated blood basophil count (count/volume) 0.0 10*3/uL 0.0-0.1 Whole blood basic metabolic panel - 03/09/18 05:11 Serum or plasma sodium measurement (moles/volume) 142 mmol/L 135-145 Serum or plasma potassium measurement (moles/volume) 4.0 mmol/L 3.6-5.0 Serum or plasma chloride measurement (moles/volume) 108 mmol/L 98-107 Carbon dioxide 27 mmol/L 21-32 Serum or plasma anion gap determination (moles/volume) 7 mmol/L 5-14 Serum or plasma urea nitrogen measurement (mass/volume) 14 mg/dL 7-18 Serum or plasma creatinine measurement (mass/volume) 0.69 mg/dL 0.60-1.30 Serum or plasma urea nitrogen/creatinine mass ratio 20 NRG Serum or plasma creatinine measurement with calculation of estimated glomerular filtration rate > NRG Serum or plasma glucose measurement (mass/volume) 113 mg/dL 70-105 Serum or plasma calcium measurement (mass/volume) 8.6 mg/dL 8.5-10.1 Serum or plasma creatine kinase measurement (enzymatic activity/volume) - 03/09 05:11 Serum or plasma creatine kinase measurement (enzymatic activity/volume) 26 U/L 29-168 Lipid 1996 panel - 03/09/18 05:11 Serum or plasma triglyceride measurement (mass/volume) 72 mg/dL <150 Serum or plasma cholesterol measurement (mass/volume) 130 mg/dL < 200 Serum or plasma cholesterol in HDL measurement (mass/volume) 37 mg/ dL 40-60 Cholesterol in LDL [mass/volume] in serum or plasma by direct assay 86 mg/dL 1-129 Serum or plasma cholesterol in VLDL measurement (mass/volume) 14 mg/ dL 5-40 Serum or plasma C reactive protein measurement (mass/volume) - 03/09/18 05:11 Serum or plasma C reactive protein measurement (mass/volume) 0.48 mg /dL 0.00-0.50 Erythrocyte sedimentation rate by westergren method - 03/09/18 05:11 Erythrocyte sedimentation rate by westergren method 36 mm 0-30 Hemoglobin A1c - 03/10/18 05:11 Blood hemoglobin A1C measurement (mass/volume) 6.0 % 4.0- 5.6 MEAN BLOOD GLUCOSE 126 % <=126 Complete blood count (CBC) with automated white blood cell (WBC) differential - 03/10/18 05:39 Blood leukocytes automated count (number/volume) 4.7 10*3/uL 4.3-11.0 Blood erythrocytes automated count (number/volume) 3.84 10*6/uL 4.35-5.85 Venous blood hemoglobin measurement (mass/volume) 11.6 g/dL 11.5-16.0 Blood hematocrit (volume fraction) 34 % 35-52 Automated erythrocyte mean corpuscular volume 90 [foz_us] 80-99 Automated erythrocyte mean corpuscular hemoglobin (mass per erythrocyte) 30 pg 25-34 Automated erythrocyte mean corpuscular hemoglobin concentration measurement ( mass/volume) 34 g/dL 32-36 Automated erythrocyte distribution width ratio 14.5 % 10.0-14.5 Automated blood platelet count (count/volume) 102 10*3/uL 130-400 Automated blood platelet mean volume measurement 11.4 [foz_us] 7.4-10.4 Automated blood neutrophils/100 leukocytes 62 % 42-75 Automated blood lymphocytes/100 leukocytes 19 % 12-44 Blood monocytes/100 leukocytes 10 % 0-12 Automated blood eosinophils/100 leukocytes 9 % 0-10 Automated blood basophils/100 leukocytes 0 % 0-10 Blood neutrophils automated count (number/volume) 2.9 10*3 1.8-7.8 Blood lymphocytes automated count (number/volume) 0.9 10*3 1.0-4.0 Blood monocytes automated count (number/volume) 0.5 10*3 0.0-1.0 Automated eosinophil count 0.4 10*3/uL 0.0-0.3 Automated blood basophil count (count/volume) 0.0 10*3/uL 0.0-0.1 Comprehensive metabolic panel - 03/10/18 05:39 Serum or plasma sodium measurement (moles/volume) 141 mmol/L 135-145 Serum or plasma potassium measurement (moles/volume) 4.4 mmol/L 3.6-5.0 Serum or plasma chloride measurement (moles/volume) 112 mmol/L 98-107 Carbon dioxide 22 mmol/L 21-32 Serum or plasma anion gap determination (moles/volume) 7 mmol/L 5-14 Serum or plasma urea nitrogen measurement (mass/volume) 12 mg/dL 7-18 Serum or plasma creatinine measurement (mass/volume) 0.66 mg/dL 0.60-1.30 Serum or plasma urea nitrogen/creatinine mass ratio 18 NRG Serum or plasma creatinine measurement with calculation of estimated glomerular filtration rate > NRG Serum or plasma glucose measurement (mass/volume) 102 mg/dL 70-105 Serum or plasma calcium measurement (mass/volume) 8.5 mg/dL 8.5-10.1 Serum or plasma total bilirubin measurement (mass/volume) 1.4 mg/dL 0.1-1.0 Serum or plasma alkaline phosphatase measurement (enzymatic activity/volume) 66 U/L 40-136 Serum or plasma aspartate aminotransferase measurement (enzymatic activity/ volume) 16 U/L 5-34 Serum or plasma alanine aminotransferase measurement (enzymatic activity/volume ) 8 U/L 0-55 Serum or plasma protein measurement (mass/volume) 5.7 g/dL 6.4-8.2 Serum or plasma albumin measurement (mass/volume) 2.8 g/dL 3.2-4.5 Lipid 1996 panel - 03/10/18 05:39 Serum or plasma triglyceride measurement (mass/volume) 57 mg/dL <150 Serum or plasma cholesterol measurement (mass/volume) 134 mg/dL < 200 Serum or plasma cholesterol in HDL measurement (mass/volume) 38 mg/ dL 40-60 Cholesterol in LDL [mass/volume] in serum or plasma by direct assay 93 mg/dL 1-129 Serum or plasma cholesterol in VLDL measurement (mass/volume) 11 mg/ dL 5-40 Automated blood complete blood count (hemogram) panel - 03/11/18 09:04 Blood leukocytes automated count (number/volume) 5.3 10*3/uL 4.3-11.0 Blood erythrocytes automated count (number/volume) 4.03 10*6/uL 4.35-5.85 Venous blood hemoglobin measurement (mass/volume) 12.0 g/dL 11.5-16.0 Blood hematocrit (volume fraction) 36 % 35-52 Automated erythrocyte mean corpuscular volume 89 [foz_us] 80-99 Automated erythrocyte mean corpuscular hemoglobin (mass per erythrocyte) 30 pg 25-34 Automated erythrocyte mean corpuscular hemoglobin concentration measurement ( mass/volume) 33 g/dL 32-36 Automated erythrocyte distribution width ratio 14.5 % 10.0-14.5 Automated blood platelet count (count/volume) 118 10*3/uL 130-400 Automated blood platelet mean volume measurement 10.5 [foz_us] 7.4-10.4 Whole blood basic metabolic panel - 03/11/18 09:04 Serum or plasma sodium measurement (moles/volume) 140 mmol/L 135-145 Serum or plasma potassium measurement (moles/volume) 4.1 mmol/L 3.6-5.0 Serum or plasma chloride measurement (moles/volume) 109 mmol/L 98-107 Carbon dioxide 23 mmol/L 21-32 Serum or plasma anion gap determination (moles/volume) 8 mmol/L 5-14 Serum or plasma urea nitrogen measurement (mass/volume) 15 mg/dL 7-18 Serum or plasma creatinine measurement (mass/volume) 0.81 mg/dL 0.60-1.30 Serum or plasma urea nitrogen/creatinine mass ratio 19 NRG Serum or plasma creatinine measurement with calculation of estimated glomerular filtration rate > NRG Serum or plasma glucose measurement (mass/volume) 172 mg/dL 70-105 Serum or plasma calcium measurement (mass/volume) 9.0 mg/dL 8.5-10.1 Capillary blood glucose measurement by glucometer (mass/volume) - 03/11/18 10: 55 Capillary blood glucose measurement by glucometer (mass/volume) 204 mg/dL 70-110 Capillary blood glucose measurement by glucometer (mass/volume) - 03/11/18 16: 32 Capillary blood glucose measurement by glucometer (mass/volume) 143 mg/dL 70-110 Capillary blood glucose measurement by glucometer (mass/volume) - 03/12/18 05: 19 Capillary blood glucose measurement by glucometer (mass/volume) 113 mg/dL 70-110 Automated blood complete blood count (hemogram) panel - 03/12/18 05:20 Blood leukocytes automated count (number/volume) 4.6 10*3/uL 4.3-11.0 Blood erythrocytes automated count (number/volume) 3.80 10*6/uL 4.35-5.85 Venous blood hemoglobin measurement (mass/volume) 11.2 g/dL 11.5-16.0 Blood hematocrit (volume fraction) 34 % 35-52 Automated erythrocyte mean corpuscular volume 89 [foz_us] 80-99 Automated erythrocyte mean corpuscular hemoglobin (mass per erythrocyte) 29 pg 25-34 Automated erythrocyte mean corpuscular hemoglobin concentration measurement ( mass/volume) 33 g/dL 32-36 Automated erythrocyte distribution width ratio 14.8 % 10.0-14.5 Automated blood platelet count (count/volume) 91 10*3/uL 130-400 Automated blood platelet mean volume measurement 10.3 [foz_us] 7.4-10.4 Capillary blood glucose measurement by glucometer (mass/volume) - 03/12/18 16: 30 Capillary blood glucose measurement by glucometer (mass/volume) 152 mg/dL 70-110 Capillary blood glucose measurement by glucometer (mass/volume) - 03/12/18 21: 31 Capillary blood glucose measurement by glucometer (mass/volume) 148 mg/dL 70-110 Capillary blood glucose measurement by glucometer (mass/volume) - 03/13/18 06: 25 Capillary blood glucose measurement by glucometer (mass/volume) 104 mg/dL 70-110 Capillary blood glucose measurement by glucometer (mass/volume) - 03/13/18 16: 04 Capillary blood glucose measurement by glucometer (mass/volume) 159 mg/dL 70-110 Capillary blood glucose measurement by glucometer (mass/volume) - 03/13/18 20: 41 Capillary blood glucose measurement by glucometer (mass/volume) 193 mg/dL 70-110 Capillary blood glucose measurement by glucometer (mass/volume) - 03/14/18 05: 45 Capillary blood glucose measurement by glucometer (mass/volume) 100 mg/dL 70-110 Capillary blood glucose measurement by glucometer (mass/volume) - 03/14/18 16: 24 Capillary blood glucose measurement by glucometer (mass/volume) 145 mg/dL 70-110 Capillary blood glucose measurement by glucometer (mass/volume) - 03/15/18 06: 09 Capillary blood glucose measurement by glucometer (mass/volume) 112 mg/dL 70-110 Whole blood basic metabolic panel - 03/15/18 12:18 Serum or plasma sodium measurement (moles/volume) 139 mmol/L 135-145 Serum or plasma potassium measurement (moles/volume) 5.0 mmol/L 3.6-5.0 Serum or plasma chloride measurement (moles/volume) 104 mmol/L 98-107 Carbon dioxide 24 mmol/L 21-32 Serum or plasma anion gap determination (moles/volume) 11 mmol/L 5-14 Serum or plasma urea nitrogen measurement (mass/volume) 21 mg/dL 7-18 Serum or plasma creatinine measurement (mass/volume) 0.81 mg/dL 0.60-1.30 Serum or plasma urea nitrogen/creatinine mass ratio 26 NRG Serum or plasma creatinine measurement with calculation of estimated glomerular filtration rate > NRG Serum or plasma glucose measurement (mass/volume) 187 mg/dL 70-105 Serum or plasma calcium measurement (mass/volume) 9.1 mg/dL 8.5-10.1 Capillary blood glucose measurement by glucometer (mass/volume) - 03/15/18 16: 16 Capillary blood glucose measurement by glucometer (mass/volume) 164 mg/dL 70-110 Capillary blood glucose measurement by glucometer (mass/volume) - 03/16/18 04: 15 Capillary blood glucose measurement by glucometer (mass/volume) 105 mg/dL 70-110 Capillary blood glucose measurement by glucometer (mass/volume) - 03/16/18 15: 55 Capillary blood glucose measurement by glucometer (mass/volume) 133 mg/dL 70-110 Capillary blood glucose measurement by glucometer (mass/volume) - 03/17/18 05: 35 Capillary blood glucose measurement by glucometer (mass/volume) 119 mg/dL 70-110 Comprehensive metabolic panel - 03/17/18 07:49 Serum or plasma sodium measurement (moles/volume) 141 mmol/L 135-145 Serum or plasma potassium measurement (moles/volume) 4.7 mmol/L 3.6-5.0 Serum or plasma chloride measurement (moles/volume) 105 mmol/L 98-107 Carbon dioxide 28 mmol/L 21-32 Serum or plasma anion gap determination (moles/volume) 8 mmol/L 5-14 Serum or plasma urea nitrogen measurement (mass/volume) 31 mg/dL 7-18 Serum or plasma creatinine measurement (mass/volume) 1.32 mg/dL 0.60-1.30 Serum or plasma urea nitrogen/creatinine mass ratio 23 NRG Serum or plasma creatinine measurement with calculation of estimated glomerular filtration rate 39 NRG Serum or plasma glucose measurement (mass/volume) 135 mg/dL 70-105 Serum or plasma calcium measurement (mass/volume) 8.7 mg/dL 8.5-10.1 Serum or plasma total bilirubin measurement (mass/volume) 1.1 mg/dL 0.1-1.0 Serum or plasma alkaline phosphatase measurement (enzymatic activity/volume) 64 U/L 40-136 Serum or plasma aspartate aminotransferase measurement (enzymatic activity/ volume) 17 U/L 5-34 Serum or plasma alanine aminotransferase measurement (enzymatic activity/volume ) 10 U/L 0-55 Serum or plasma protein measurement (mass/volume) 5.6 g/dL 6.4-8.2 Serum or plasma albumin measurement (mass/volume) 2.8 g/dL 3.2-4.5 Capillary blood glucose measurement by glucometer (mass/volume) - 03/17/18 07: 53 Capillary blood glucose measurement by glucometer (mass/volume) 119 mg/dL 70-110 Complete blood count (CBC) with automated white blood cell (WBC) differential - 03/17/18 09:05 Blood leukocytes automated count (number/volume) 8.1 10*3/uL 4.3-11.0 Blood erythrocytes automated count (number/volume) 4.28 10*6/uL 4.35-5.85 Venous blood hemoglobin measurement (mass/volume) 12.9 g/dL 11.5-16.0 Blood hematocrit (volume fraction) 38 % 35-52 Automated erythrocyte mean corpuscular volume 89 [foz_us] 80-99 Automated erythrocyte mean corpuscular hemoglobin (mass per erythrocyte) 30 pg 25-34 Automated erythrocyte mean corpuscular hemoglobin concentration measurement ( mass/volume) 34 g/dL 32-36 Automated erythrocyte distribution width ratio 15.0 % 10.0-14.5 Automated blood platelet count (count/volume) 132 10*3/uL 130-400 Automated blood platelet mean volume measurement 10.6 [foz_us] 7.4-10.4 Automated blood neutrophils/100 leukocytes 70 % 42-75 Automated blood lymphocytes/100 leukocytes 15 % 12-44 Blood monocytes/100 leukocytes 12 % 0-12 Automated blood eosinophils/100 leukocytes 2 % 0-10 Automated blood basophils/100 leukocytes 0 % 0-10 Blood neutrophils automated count (number/volume) 5.7 10*3 1.8-7.8 Blood lymphocytes automated count (number/volume) 1.2 10*3 1.0-4.0 Blood monocytes automated count (number/volume) 1.0 10*3 0.0-1.0 Automated eosinophil count 0.2 10*3/uL 0.0-0.3 Automated blood basophil count (count/volume) 0.0 10*3/uL 0.0-0.1 Capillary blood glucose measurement by glucometer (mass/volume) - 03/17/18 15: 46 Capillary blood glucose measurement by glucometer (mass/volume) 149 mg/dL 70-110 Capillary blood glucose measurement by glucometer (mass/volume) - 03/18/18 05: 06 Capillary blood glucose measurement by glucometer (mass/volume) 93 mg/dL 70-110 Blood CBC with ordered manual differential panel - 03/18/18 05:20 Blood leukocytes automated count (number/volume) 5.2 10*3/uL 4.3-11.0 Blood erythrocytes automated count (number/volume) 3.75 10*6/uL 4.35-5.85 Venous blood hemoglobin measurement (mass/volume) 11.0 g/dL 11.5-16.0 Blood hematocrit (volume fraction) 34 % 35-52 Automated erythrocyte mean corpuscular volume 91 [foz_us] 80-99 Automated erythrocyte mean corpuscular hemoglobin (mass per erythrocyte) 29 pg 25-34 Automated erythrocyte mean corpuscular hemoglobin concentration measurement ( mass/volume) 32 g/dL 32-36 Automated erythrocyte distribution width ratio 15.2 % 10.0-14.5 Automated blood platelet count (count/volume) 114 10*3/uL 130-400 Automated blood platelet mean volume measurement 10.8 [foz_us] 7.4-10.4 Automated blood neutrophils/100 leukocytes 55 % 42-75 Automated blood lymphocytes/100 leukocytes 30 % 12-44 Blood monocytes/100 leukocytes 4 % NRG Automated blood eosinophils/100 leukocytes 5 % 0-10 Automated blood basophils/100 leukocytes 0 % 0-10 Blood neutrophils automated count (number/volume) 2.9 10*3 1.8-7.8 Blood lymphocytes automated count (number/volume) 1.6 10*3 1.0-4.0 Blood monocytes automated count (number/volume) 0.5 10*3 0.0-1.0 Automated eosinophil count 0.3 10*3/uL 0.0-0.3 Automated blood basophil count (count/volume) 0.0 10*3/uL 0.0-0.1 Manual blood segmented neutrophils/100 leukocytes 67 % NRG Manual blood lymphocytes/100 leukocytes 26 % NRG Manual eosinophils/100 leukocytes in nose 2 % NRG Manual blood basophils/100 leukocytes 1 % NRG Blood poikilocytosis detection by light microscopy SLIGHT NRG Blood rouleaux detection by light microscopy SLIGHT NRG Blood spherocytes detection by light microscopy SLIGHT NRG Comprehensive metabolic panel - 03/18/18 05:20 Serum or plasma sodium measurement (moles/volume) 144 mmol/L 135-145 Serum or plasma potassium measurement (moles/volume) 4.0 mmol/L 3.6-5.0 Serum or plasma chloride measurement (moles/volume) 110 mmol/L 98-107 Carbon dioxide 26 mmol/L 21-32 Serum or plasma anion gap determination (moles/volume) 8 mmol/L 5-14 Serum or plasma urea nitrogen measurement (mass/volume) 36 mg/dL 7-18 Serum or plasma creatinine measurement (mass/volume) 1.34 mg/dL 0.60-1.30 Serum or plasma urea nitrogen/creatinine mass ratio 27 NRG Serum or plasma creatinine measurement with calculation of estimated glomerular filtration rate 38 NRG Serum or plasma glucose measurement (mass/volume) 104 mg/dL 70-105 Serum or plasma calcium measurement (mass/volume) 8.3 mg/dL 8.5-10.1 Serum or plasma total bilirubin measurement (mass/volume) 1.2 mg/dL 0.1-1.0 Serum or plasma alkaline phosphatase measurement (enzymatic activity/volume) 64 U/L 40-136 Serum or plasma aspartate aminotransferase measurement (enzymatic activity/ volume) 17 U/L 5-34 Serum or plasma alanine aminotransferase measurement (enzymatic activity/volume ) 11 U/L 0-55 Serum or plasma protein measurement (mass/volume) 5.4 g/dL 6.4-8.2 Serum or plasma albumin measurement (mass/volume) 2.8 g/dL 3.2-4.5 Capillary blood glucose measurement by glucometer (mass/volume) - 03/18/18 15: 51 Capillary blood glucose measurement by glucometer (mass/volume) 205 mg/dL 70-110 Capillary blood glucose measurement by glucometer (mass/volume) - 03/19/18 06: 06 Capillary blood glucose measurement by glucometer (mass/volume) 108 mg/dL 70-110 Complete blood count (CBC) with automated white blood cell (WBC) differential - 03/19/18 06:38 Blood leukocytes automated count (number/volume) 4.1 10*3/uL 4.3-11.0 Blood erythrocytes automated count (number/volume) 3.71 10*6/uL 4.35-5.85 Venous blood hemoglobin measurement (mass/volume) 11.1 g/dL 11.5-16.0 Blood hematocrit (volume fraction) 33 % 35-52 Automated erythrocyte mean corpuscular volume 90 [foz_us] 80-99 Automated erythrocyte mean corpuscular hemoglobin (mass per erythrocyte) 30 pg 25-34 Automated erythrocyte mean corpuscular hemoglobin concentration measurement ( mass/volume) 33 g/dL 32-36 Automated erythrocyte distribution width ratio 14.7 % 10.0-14.5 Automated blood platelet count (count/volume) 109 10*3/uL 130-400 Automated blood platelet mean volume measurement 10.8 [foz_us] 7.4-10.4 Automated blood neutrophils/100 leukocytes 55 % 42-75 Automated blood lymphocytes/100 leukocytes 27 % 12-44 Blood monocytes/100 leukocytes 10 % 0-12 Automated blood eosinophils/100 leukocytes 8 % 0-10 Automated blood basophils/100 leukocytes 1 % 0-10 Blood neutrophils automated count (number/volume) 2.3 10*3 1.8-7.8 Blood lymphocytes automated count (number/volume) 1.1 10*3 1.0-4.0 Blood monocytes automated count (number/volume) 0.4 10*3 0.0-1.0 Automated eosinophil count 0.3 10*3/uL 0.0-0.3 Automated blood basophil count (count/volume) 0.0 10*3/uL 0.0-0.1 Whole blood basic metabolic panel - 03/19/18 06:38 Serum or plasma sodium measurement (moles/volume) 143 mmol/L 135-145 Serum or plasma potassium measurement (moles/volume) 4.0 mmol/L 3.6-5.0 Serum or plasma chloride measurement (moles/volume) 110 mmol/L 98-107 Carbon dioxide 27 mmol/L 21-32 Serum or plasma anion gap determination (moles/volume) 6 mmol/L 5-14 Serum or plasma urea nitrogen measurement (mass/volume) 25 mg/dL 7-18 Serum or plasma creatinine measurement (mass/volume) 0.87 mg/dL 0.60-1.30 Serum or plasma urea nitrogen/creatinine mass ratio 29 NRG Serum or plasma creatinine measurement with calculation of estimated glomerular filtration rate > NRG Serum or plasma glucose measurement (mass/volume) 117 mg/dL 70-105 Serum or plasma calcium measurement (mass/volume) 8.3 mg/dL 8.5-10.1 Capillary blood glucose measurement by glucometer (mass/volume) - 03/19/18 16: 24 Capillary blood glucose measurement by glucometer (mass/volume) 151 mg/dL 70-110 Complete blood count (CBC) with automated white blood cell (WBC) differential - 03/20/18 05:22 Blood leukocytes automated count (number/volume) 3.8 10*3/uL 4.3-11.0 Blood erythrocytes automated count (number/volume) 3.35 10*6/uL 4.35-5.85 Venous blood hemoglobin measurement (mass/volume) 10.1 g/dL 11.5-16.0 Blood hematocrit (volume fraction) 30 % 35-52 Automated erythrocyte mean corpuscular volume 90 [foz_us] 80-99 Automated erythrocyte mean corpuscular hemoglobin (mass per erythrocyte) 30 pg 25-34 Automated erythrocyte mean corpuscular hemoglobin concentration measurement ( mass/volume) 33 g/dL 32-36 Automated erythrocyte distribution width ratio 14.4 % 10.0-14.5 Automated blood platelet count (count/volume) 92 10*3/uL 130-400 Automated blood platelet mean volume measurement 11.0 [foz_us] 7.4-10.4 Automated blood neutrophils/100 leukocytes 54 % 42-75 Automated blood lymphocytes/100 leukocytes 25 % 12-44 Blood monocytes/100 leukocytes 10 % 0-12 Automated blood eosinophils/100 leukocytes 10 % 0-10 Automated blood basophils/100 leukocytes 1 % 0-10 Blood neutrophils automated count (number/volume) 2.1 10*3 1.8-7.8 Blood lymphocytes automated count (number/volume) 1.0 10*3 1.0-4.0 Blood monocytes automated count (number/volume) 0.4 10*3 0.0-1.0 Automated eosinophil count 0.4 10*3/uL 0.0-0.3 Automated blood basophil count (count/volume) 0.0 10*3/uL 0.0-0.1 Capillary blood glucose measurement by glucometer (mass/volume) - 03/20/18 05: 45 Capillary blood glucose measurement by glucometer (mass/volume) 114 mg/dL 70-110 Capillary blood glucose measurement by glucometer (mass/volume) - 03/20/18 15: 50 Capillary blood glucose measurement by glucometer (mass/volume) 138 mg/dL 70-110 Capillary blood glucose measurement by glucometer (mass/volume) - 03/21/18 05: 50 Capillary blood glucose measurement by glucometer (mass/volume) 149 mg/dL 70-110 Capillary blood glucose measurement by glucometer (mass/volume) - 03/21/18 16: 12 Capillary blood glucose measurement by glucometer (mass/volume) 161 mg/dL 70-110 Capillary blood glucose measurement by glucometer (mass/volume) - 03/22/18 05: 10 Capillary blood glucose measurement by glucometer (mass/volume) 130 mg/dL 70-110 Complete blood count (CBC) with automated white blood cell (WBC) differential - 03/22/18 09:18 Blood leukocytes automated count (number/volume) 5.5 10*3/uL 4.3-11.0 Blood erythrocytes automated count (number/volume) 3.69 10*6/uL 4.35-5.85 Venous blood hemoglobin measurement (mass/volume) 11.1 g/dL 11.5-16.0 Blood hematocrit (volume fraction) 33 % 35-52 Automated erythrocyte mean corpuscular volume 90 [foz_us] 80-99 Automated erythrocyte mean corpuscular hemoglobin (mass per erythrocyte) 30 pg 25-34 Automated erythrocyte mean corpuscular hemoglobin concentration measurement ( mass/volume) 34 g/dL 32-36 Automated erythrocyte distribution width ratio 14.7 % 10.0-14.5 Automated blood platelet count (count/volume) 107 10*3/uL 130-400 Automated blood platelet mean volume measurement 10.4 [foz_us] 7.4-10.4 Automated blood neutrophils/100 leukocytes 66 % 42-75 Automated blood lymphocytes/100 leukocytes 18 % 12-44 Blood monocytes/100 leukocytes 8 % 0-12 Automated blood eosinophils/100 leukocytes 7 % 0-10 Automated blood basophils/100 leukocytes 1 % 0-10 Blood neutrophils automated count (number/volume) 3.6 10*3 1.8-7.8 Blood lymphocytes automated count (number/volume) 1.0 10*3 1.0-4.0 Blood monocytes automated count (number/volume) 0.5 10*3 0.0-1.0 Automated eosinophil count 0.4 10*3/uL 0.0-0.3 Automated blood basophil count (count/volume) 0.0 10*3/uL 0.0-0.1 Capillary blood glucose measurement by glucometer (mass/volume) - 03/22/18 15: 45 Capillary blood glucose measurement by glucometer (mass/volume) 193 mg/dL 70-110 Capillary blood glucose measurement by glucometer (mass/volume) - 03/23/18 05: 36 Capillary blood glucose measurement by glucometer (mass/volume) 130 mg/dL 70-110 Automated blood complete blood count (hemogram) panel - 03/23/18 07:13 Blood leukocytes automated count (number/volume) 5.7 10*3/uL 4.3-11.0 Blood erythrocytes automated count (number/volume) 3.89 10*6/uL 4.35-5.85 Venous blood hemoglobin measurement (mass/volume) 11.7 g/dL 11.5-16.0 Blood hematocrit (volume fraction) 35 % 35-52 Automated erythrocyte mean corpuscular volume 90 [foz_us] 80-99 Automated erythrocyte mean corpuscular hemoglobin (mass per erythrocyte) 30 pg 25-34 Automated erythrocyte mean corpuscular hemoglobin concentration measurement ( mass/volume) 34 g/dL 32-36 Automated erythrocyte distribution width ratio 14.8 % 10.0-14.5 Automated blood platelet count (count/volume) 108 10*3/uL 130-400 Automated blood platelet mean volume measurement 10.9 [foz_us] 7.4-10.4 Whole blood basic metabolic panel - 03/23/18 07:13 Serum or plasma sodium measurement (moles/volume) 142 mmol/L 135-145 Serum or plasma potassium measurement (moles/volume) 4.3 mmol/L 3.6-5.0 Serum or plasma chloride measurement (moles/volume) 110 mmol/L 98-107 Carbon dioxide 23 mmol/L 21-32 Serum or plasma anion gap determination (moles/volume) 9 mmol/L 5-14 Serum or plasma urea nitrogen measurement (mass/volume) 18 mg/dL 7-18 Serum or plasma creatinine measurement (mass/volume) 0.82 mg/dL 0.60-1.30 Serum or plasma urea nitrogen/creatinine mass ratio 22 NRG Serum or plasma creatinine measurement with calculation of estimated glomerular filtration rate > NRG Serum or plasma glucose measurement (mass/volume) 139 mg/dL 70-105 Serum or plasma calcium measurement (mass/volume) 9.0 mg/dL 8.5-10.1 Capillary blood glucose measurement by glucometer (mass/volume) - 03/23/18 16: 20 Capillary blood glucose measurement by glucometer (mass/volume) 179 mg/dL 70-110 Capillary blood glucose measurement by glucometer (mass/volume) - 03/24/18 05: 33 Capillary blood glucose measurement by glucometer (mass/volume) 114 mg/dL 70-110 Blood CBC with ordered manual differential panel - 03/24/18 05:33 Blood leukocytes automated count (number/volume) 5.2 10*3/uL 4.3-11.0 Blood erythrocytes automated count (number/volume) 3.43 10*6/uL 4.35-5.85 Venous blood hemoglobin measurement (mass/volume) 10.1 g/dL 11.5-16.0 Blood hematocrit (volume fraction) 31 % 35-52 Automated erythrocyte mean corpuscular volume 90 [foz_us] 80-99 Automated erythrocyte mean corpuscular hemoglobin (mass per erythrocyte) 29 pg 25-34 Automated erythrocyte mean corpuscular hemoglobin concentration measurement ( mass/volume) 33 g/dL 32-36 Automated erythrocyte distribution width ratio 14.8 % 10.0-14.5 Automated blood platelet count (count/volume) 106 10*3/uL 130-400 Automated blood platelet mean volume measurement 10.6 [foz_us] 7.4-10.4 Automated blood neutrophils/100 leukocytes 61 % 42-75 Automated blood lymphocytes/100 leukocytes 20 % 12-44 Blood monocytes/100 leukocytes 5 % NRG Automated blood eosinophils/100 leukocytes 8 % 0-10 Automated blood basophils/100 leukocytes 0 % 0-10 Blood neutrophils automated count (number/volume) 3.2 10*3 1.8-7.8 Blood lymphocytes automated count (number/volume) 1.1 10*3 1.0-4.0 Blood monocytes automated count (number/volume) 0.5 10*3 0.0-1.0 Automated eosinophil count 0.4 10*3/uL 0.0-0.3 Automated blood basophil count (count/volume) 0.0 10*3/uL 0.0-0.1 Manual blood segmented neutrophils/100 leukocytes 71 % NRG Manual blood lymphocytes/100 leukocytes 19 % NRG Manual eosinophils/100 leukocytes in nose 5 % NRG Blood erythrocyte morphology finding identification [facility] Comprehensive metabolic panel - 03/24/18 05:33 Serum or plasma sodium measurement (moles/volume) 141 mmol/L 135-145 Serum or plasma potassium measurement (moles/volume) 4.1 mmol/L 3.6-5.0 Serum or plasma chloride measurement (moles/volume) 110 mmol/L 98-107 Carbon dioxide 25 mmol/L 21-32 Serum or plasma anion gap determination (moles/volume) 6 mmol/L 5-14 Serum or plasma urea nitrogen measurement (mass/volume) 17 mg/dL 7-18 Serum or plasma creatinine measurement (mass/volume) 0.73 mg/dL 0.60-1.30 Serum or plasma urea nitrogen/creatinine mass ratio 23 NRG Serum or plasma creatinine measurement with calculation of estimated glomerular filtration rate > NRG Serum or plasma glucose measurement (mass/volume) 109 mg/dL 70-105 Serum or plasma calcium measurement (mass/volume) 8.5 mg/dL 8.5-10.1 Serum or plasma total bilirubin measurement (mass/volume) 1.0 mg/dL 0.1-1.0 Serum or plasma alkaline phosphatase measurement (enzymatic activity/volume) 58 U/L 40-136 Serum or plasma aspartate aminotransferase measurement (enzymatic activity/ volume) 15 U/L 5-34 Serum or plasma alanine aminotransferase measurement (enzymatic activity/volume ) 9 U/L 0-55 Serum or plasma protein measurement (mass/volume) 5.2 g/dL 6.4-8.2 Serum or plasma albumin measurement (mass/volume) 2.7 g/dL 3.2-4.5 Lactate dehydrogenase 1 [enzymatic activity/volume] in serum or plasma - 05:33 Lactate dehydrogenase 1 [enzymatic activity/volume] in serum or plasma 188 U/L 125-220 PT panel in platelet poor plasma by coagulation assay - 03/24/18 05:33 Prothrombin time (PT) in platelet poor plasma by coagulation assay 15.4 s 12.2-14.7 INR in platelet poor plasma or blood by coagulation assay 1.2 0.8-1.4 Fibrinogen measurement in platelet poor plasma by coagulation assay (mass/ volume) - 03/24/18 05:33 Fibrinogen measurement in platelet poor plasma by coagulation assay (mass/ volume) 326 mg/dL 221-496 Fibrin D-dimer FEU measurement in platelet poor plasma (mass/volume) - 05:33 Fibrin D-dimer FEU measurement in platelet poor plasma (mass/volume) 13.04 ug/mL 0.00-0.49 Encounters ACCT No. Visit Date/Time Discharge Status Pt. Type Provider Facility Loc./Unit Complaint [id number] 03/26/2018 06:46:00 03/26/2018 23:59:59 [facility] Emergency PROSPER FOWLER, AMADOR Rosario [facility] ER DROWSY, DIFFICULT TO WAKE [id number] 03/11/2018 10:00:00 03/24/2018 16:25:00 DIS Outpatient LORENZA FOWLER, HECTOR Bolanos [facility] IRF CVA [id number] 03/08/2018 15:00:00 03/11/2018 10:01:00 DIS Inpatient ADEN LEE DO [facility] 4TH CONFUSION,WEAKNESS, CVA?,HTN [id number] 12/18/2017 10:15:00 12/18/2017 13:55:00 DIS Outpatient ADEN LEE DO [facility] REHAB GENERAL WEAKNESS; DIFFICULTY IN TALKING [id number] 10/18/2017 16:07:00 10/18/2017 19:02:00 DIS Emergency ERIN EISENBERG [facility] ER FALL [id number] 08/05/2017 08:01:00 08/05/2017 23:59:59 CLS Outpatient ADEN LEE DO Fani [facility] LAB DIABETES, HYPERLIPIDEMIA [id number] 07/26/2017 09:53:00 07/26/2017 13:00:00 DIS Emergency TWYLA VALVERDE FLOR [facility] ER FALL [id number] 01/22/2017 10:30:00 01/22/2017 12:00:00 DIS Outpatient IOANA TARIQ DO [facility] REHAB LOW BACK PAIN AND LUMBAR SPONDYLOSIS [id number] 01/19/2017 08:14:00 01/19/2017 23:59:59 CLS Outpatient NIINJORGE L KATE ADEN Fani [facility] LAB THROMBOCYCLOPE [id number] 12/23/2016 08:44:00 12/23/2016 23:59:59 CLS Outpatient ANNASANDHU ADEN Fani [facility] LAB HTN [id number] 10/07/2016 13:11:00 10/07/2016 14:45:00 DIS Emergency AMADOR CHENG MD [facility] ER KNEE PAIN [id number] 08/28/2016 08:29:00 08/28/2016 23:59:59 CLS Outpatient ADEN LEE DO [facility] LAB DIABETIS, HYPERTENSION [id number] 06/30/2016 09:17:00 06/30/2016 23:59:59 CLS Outpatient ADEN LEE DO [facility] RAD SCREENING [id number] 06/12/2016 08:15:00 06/12/2016 11:53:00 DIS Outpatient IOANA TARIQ DO [facility] REHAB S/P REVERSE LEFT TSA [id number] 05/29/2016 10:20:00 05/30/2016 17:00:00 DIS Outpatient IOANA TARIQ DO [facility] REHAB S/P REVERSE LEFT TSA [id number] 05/21/2016 08:02:00 05/21/2016 23:59:59 CLS Outpatient JESUS KATEADEN [facility] LAB LEUKOPENIA, THROMBOCYTOPENIA [id number] 05/06/2016 08:17:00 05/06/2016 23:59:59 CLS Outpatient JESUS KATEADEN [facility] LAB DIABETES, HYPERLIPIDEMIA [id number] 07/09/2015 08:33:00 07/09/2015 23:59:59 CLS Outpatient JESUS KATE ADEN Fani [facility] LAB DIABTS, [id number] 07/04/2015 09:09:00 07/04/2015 23:59:59 CLS Outpatient IOANA TARIQ DO [facility] RAD LUMBAR SPONDYLOSIS, DJD LEFT HIP [id number] 06/27/2015 08:43:00 06/27/2015 23:59:59 CLS Outpatient JESUS ADEN KATE [facility] RAD SCREENING [id number] 03/06/2015 07:08:00 03/06/2015 07:20:00 DIS Emergency AJITH FOWLER, LATASHA Hummel [facility] ER STAPLE REMOVAL [id number] 02/27/2015 10:38:00 02/27/2015 12:13:00 DIS Emergency REANNA FOWLER, BRUCE Rao [facility] ER FALL;L LEG PAIN [id number] 02/19/2015 08:28:00 02/19/2015 23:59:59 CLS Outpatient JESUS KATEADEN [facility] LAB DIABETES,PERIPHERAL ADEMIA [id number] 02/19/2015 08:20:00 02/19/2015 23:59:59 CLS Outpatient REBEL IVY [facility] LAB HYPERLIPIDEMIA [id number] 08/22/2014 10:30:00 08/22/2014 23:59:59 CLS Outpatient REBEL IVY [facility] LAB HLP,DM,HTN [id number] 06/26/2014 10:05:00 06/26/2014 23:59:59 CLS Outpatient JESUS ADEN KATE [facility] RAD SCREENING [id number] 04/05/2014 09:08:00 04/05/2014 23:59:59 CLS Outpatient ADEN LEE DO [facility] LAB DIABETES [id number] 02/21/2014 08:25:00 02/21/2014 23:59:59 CLS Outpatient REBEL IVY [facility] LAB OTHER UNSPECIFIED HYPERLIPIDEMIA [id number] 01/27/2014 10:30:00 01/27/2014 23:59:59 CLS Outpatient ADEN LEE DO [facility] RAD FELL LAST THURSDAY, PAIN IN R RIBS [id number] 08/18/2013 11:05:00 08/18/2013 23:59:59 CLS Outpatient REBEL IVY [facility] LAB HLP [id number] 08/12/2013 12:58:00 08/18/2013 14:04:00 DIS Outpatient IOANA TARIQ DO [facility] REHAB CERVICAL SPONDYLOSIS [id number] 08/16/2013 12:34:00 08/16/2013 23:59:59 CLS Outpatient REBEL IVY [facility] CARD HTN [id number] 08/13/2013 18:38:00 08/13/2013 23:46:00 DIS Emergency PROSPER FOWLER, AMADOR Rosario [facility] ER CP [id number] 07/25/2013 09:12:00 07/25/2013 23:59:59 CLS Outpatient IOANA TARIQ DO [facility] RAD CERVICAL SPONDYLOSIS [id number] 06/29/2013 07:43:00 06/29/2013 23:59:59 CLS Outpatient NINIJORGE L KATEADEN Fani [facility] LAB DM,HLP [id number] 06/24/2013 08:48:00 06/24/2013 23:59:59 CLS Outpatient JESUS ADEN [facility] RAD SCREENING [id number] 05/31/2013 08:35:00 06/22/2013 14:00:00 DIS Outpatient IOANA TARIQ DO [facility] REHAB DJD R SHOULDER CERVICAL SPONDYLOSIS [id number] 04/27/2013 10:00:00 05/06/2013 10:28:00 DIS Outpatient IOANA TARIQ DO [facility] REHAB CERVICAL SPONDYLOSIS, RT SIDED RADICULOPATHY [id number] 02/28/2013 11:21:00 02/28/2013 23:59:59 CLS Outpatient ADEN LEE DO [facility] RAD RIGHT RIB PAIN [id number] 02/01/2013 07:52:00 02/01/2013 23:59:59 CLS Outpatient REBEL IVY [facility] LAB HTN,HLP,STATIN [place] [id number] 12/03/2015 08:11:00 Document Registration [id number] 07/04/2015 09:08:00 Document Registration [id number] 10/25/2014 08:56:00 Document Registration [id number] 10/06/2012 09:30:00 Document Registration [id number] 09/30/2012 08:04:00 Document Registration [id number] 08/12/2012 08:40:00 Document Registration [id number] 06/21/2012 10:00:00 Document Registration [id number] 01/09/2012 14:12:00 Document Registration [id number] 01/06/2012 11:23:00 Document Registration [id number] 12/25/2011 11:32:00 Document Registration [id number] 12/04/2011 08:05:00 Document Registration [id number] 11/26/2011 07:55:00 Document Registration [id number] 06/19/2011 07:48:00 Document Registration [id number] 06/05/2011 10:04:00 Document Registration [id number] 05/06/2011 07:00:00 Document Registration [id number] 03/19/2011 16:56:00 Document Registration [id number] 09/04/2010 07:56:00 Document Registration [id number] 04/22/2010 08:15:00 Document Registration [id number] 04/17/2010 08:06:00 Document Registration [id number] 04/02/2010 12:05:00 Document Registration [id number] 04/01/2010 13:49:00 Document Registration [id number] 03/27/2010 09:38:00 Document Registration [id number] 03/08/2010 11:02:00 Document Registration [id number] 02/28/2010 07:44:00 Document Registration
--- OUTSIDE RECORDS SUMMARY | 2018-04-03 03:21 | XMS REPORT | Continuity of Care Document ---
Author Author [facility] Organization [facility] Address Unknown Phone Unavailable Allergies Active Description Code Type Severity Reaction Onset Reported/Identified Relationship to Patient Clinical Status Yes codeine [id number] Drug Allergy Unknown N/A 12/21/2006 Yes Penicillins [id number] Drug Allergy Unknown N/A 12/21/2006 Yes aspirin [id number] Drug Allergy Unknown NAUSEA 10/07/2016 Medications There [...] ADEN LEE DO Ot V76.12 09/19/2014 BAIREBEL JC L MEDICAL CLAIMS MANAGER Ot 250.00 09/19/2014 BAIMA, REBEL L MEDICAL CLAIMS MANAGER Ot 272.4 09/19/2014 BAIHOSEA, REBEL L MEDICAL CLAIMS MANAGER Ot 401.9 02/27/2015 BAIHOSEA, REBEL L MEDICAL CLAIMS MANAGER Ot 250.00 02/27/2015 BAIMA, REBEL L MEDICAL CLAIMS MANAGER Ot 272.4 02/27/2015 BAIHOSEA, REBEL L MEDICAL CLAIMS MANAGER Ot 401.9 02/27/2015 Ot 250.00 02/27/2015 BIJU, REBEL L MEDICAL CLAIMS MANAGER Ot 272.4 02/27/2015 ADEN LEE DO Ot [...] 02/27/2015 REANNA FOWLER, BRUCE Rao Ot V06.1 [id number], COMBINED [ 03/06/2015 AJITH FOWLER, LATASHA Hummel [...] 575.8 07/04/2015 Ot 789.01 07/04/2015 REBEL IVY MEDICAL CLAIMS MANAGER Ot 272.4 07/04/2015 REBEL IVY MEDICAL CLAIMS MANAGER Ot 401.9 07/04/2015 REBEL IVY MEDICAL CLAIMS MANAGER Ot V58.69 07/04/2015 GELLENDER DO, ADEN Mohr Ot 786.50 07/04/2015 GELLENDER DO, ADEN Mohr Ot V76.12 07/04/2015 GELLENDER DO, ADEN Mohr Ot 250.00 07/04/2015 GELLENDER DO, ADEN A Ot 272.4 07/04/2015 CHANDNI DO, IOANA Mai Ot 721.0 07/04/2015 BAIMA, REBEL L MEDICAL CLAIMS MANAGER Ot 397.0 07/04/2015 BAIMA, REBEL L MEDICAL CLAIMS MANAGER Ot 416.8 07/04/2015 BAIMA, REBEL L MEDICAL CLAIMS MANAGER Ot 424.0 07/04/2015 BAIMA, REBEL L MEDICAL CLAIMS MANAGER Ot 272.4 07/04/2015 BAIMA, REBEL L MEDICAL CLAIMS MANAGER Ot V58.69 07/04/2015 GELLENDER DO, ADEN Mohr Ot 786.50 07/04/2015 GELLENDER DO, ADEN Mohr Ot V15.88 07/04/2015 BAIMA, REBEL L MEDICAL CLAIMS MANAGER Ot 272.4 07/04/2015 GELLENDER DO, ADEN Mohr Ot 250.00 07/04/2015 GELLENDER DO, ADEN Mohr Ot 401.9 07/04/2015 GELLENDER DO, ADEN Mohr Ot V76.12 07/04/2015 BAIMA, REBEL L MEDICAL CLAIMS MANAGER Ot 250.00 07/04/2015 BAIMA, REBEL L MEDICAL CLAIMS MANAGER Ot 272.4 07/04/2015 BAIMA, REBEL L MEDICAL CLAIMS MANAGER Ot 401.9 07/04/2015 Ot 250.00 07/04/2015 BAIMA, REBEL L MEDICAL CLAIMS MANAGER Ot 272.4 07/04/2015 GELLENDER DO, ADEN Mohr [...] OTHER SPECIFIED POSTPROCEDURAL STATES 06/30/2016 GELLENDER DO, AEDN Mohr Ot Z12.31 ENCNTR SCREEN MAMMOGRAM FOR [...] RIGHT UPPER QUADRANT 07/04/2016 BAIMA REBEL L MEDICAL CLAIMS MANAGER Ot 272.4 HYPERLIPIDEMIA NEC/NOS 07/04/2016 BAIMA, REBEL L MEDICAL CLAIMS MANAGER Ot 401.9 HYPERTENSION NOS 07/04/2016 BAIMA, REBEL L MEDICAL CLAIMS MANAGER Ot V58.69 OTH MED,LT,CURRENT USE 07/04/2016 ADEN LEE DO Ot 786.50 CHEST PAIN NOS 07/04/2016 ADEN LEE DO Ot V76.12 OTH SCREEN MAMMO-MALIGN NEOPLASM OF VAN 07/04/2016 ADEN LEE DO Ot 250.00 DIAB BHAVIK WO COMPL, TYPE II OR UNSPEC TY 07/04/2016 ADEN LEE DO Ot 272.4 HYPERLIPIDEMIA NEC/NOS 07/04/2016 IOANA TARIQ DO Ot 721.0 CERVICAL SPONDYLOSIS 07/04/2016 BAIMA, REBEL L MEDICAL CLAIMS MANAGER Ot 397.0 TRICUSPID VALVE DISEASE 07/04/2016 BAIMA, REBEL L MEDICAL CLAIMS MANAGER Ot 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 NEC 07/04/2016 BAIMA, REBEL L MEDICAL CLAIMS MANAGER Ot 424.0 MITRAL VALVE DISORDER 07/04/2016 BAIMA, REBEL L MEDICAL CLAIMS MANAGER Ot 272.4 HYPERLIPIDEMIA NEC/NOS 07/04/2016 BAIMA, REBEL L MEDICAL CLAIMS MANAGER Ot V58.69 OTH MED,LT,CURRENT USE 07/04/2016 JESUS KATEADEN Ot 786.50 CHEST PAIN NOS 07/04/2016 JESUS KATEADEN Ot V15.88 HISTORY OF FALL 07/04/2016 LEANDROHOSEAREBEL MEDICAL CLAIMS MANAGER Ot 272.4 HYPERLIPIDEMIA NEC/NOS 07/04/2016 JESUS KATE, ADEN Mohr Ot 250.00 DIAB BHAVIK WO COMPL, TYPE II OR UNSPEC TY 07/04/2016 JESUS ADEN KATE Ot 401.9 HYPERTENSION NOS 07/04/2016 JESUS ADEN KATE Ot V76.12 OTH SCREEN MAMMO-MALIGN NEOPLASM OF VAN 07/04/2016 REBEL IVY L MEDICAL CLAIMS MANAGER Ot 250.00 DIAB BHAVIK WO COMPL, TYPE II OR UNSPEC TY 07/04/2016 REBEL IVY L MEDICAL CLAIMS MANAGER Ot 272.4 HYPERLIPIDEMIA NEC/NOS 07/04/2016 REBEL IVY L MEDICAL CLAIMS MANAGER Ot 401.9 HYPERTENSION NOS 07/04/2016 Ot 250.00 DIAB BHAVIK WO COMPL, TYPE II OR UNSPEC TY 07/04/2016 REBEL IVY L MEDICAL CLAIMS MANAGER Ot 272.4 HYPERLIPIDEMIA NEC/NOS 07/04/2016 JESUS KATE ADEN Fani Ot 250.00 DIAB BHAVIK WO COMPL, TYPE II OR UNSPEC TY 07/04/2016 JESUS ADEN KATE Ot 401.9 HYPERTENSION NOS 07/04/2016 ADEN LEE DO Ot 782.3 EDEMA 07/04/2016 NINIAYANRICK ADEN KATE Ot Z12.31 ENCNTR SCREEN MAMMOGRAM [...] STRIKE 10/07/2016 AMADOR CHENG MD Ot Y92.[address] [facility] [address] IN [facility] NON-INST[facility] (PRIVATE 10/07/2016 AMADOR CEHNG MD Ot Y99.8 OTHER EXTERNAL CAUSE STATUS 10/07/2016 AMADOR CHENG MD Ot Z79.84 SNF (CURRENT) USE OF ORAL HYPOGLYC 10/07/2016 AMADOR CHENG MD, Ot Z79.899 OTHER SNF (CURRENT) DRUG THERAPY 10/07/2016 AMADOR CHENG MD [...] RIGHT UPPER QUADRANT 10/07/2016 BAIMA, REBEL L MEDICAL CLAIMS MANAGER Ot 272.4 HYPERLIPIDEMIA NEC/NOS 10/07/2016 BAIMA, REBEL L MEDICAL CLAIMS MANAGER Ot 401.9 HYPERTENSION NOS 10/07/2016 BAIMA, REBEL L MEDICAL CLAIMS MANAGER Ot V58.69 OTH MED,LT,CURRENT USE 10/07/2016 ADEN LEE DO Ot 786.50 CHEST PAIN NOS 10/07/2016 ADEN LEE DO Ot V76.12 OTH SCREEN MAMMO-MALIGN NEOPLASM OF VAN 10/07/2016 GELLENDER DO, ADEN Mohr Ot 250.00 DIAB BHAVIK WO COMPL, TYPE II OR UNSPEC TY 10/07/2016 GELLENDER DO, ADEN Mohr Ot 272.4 HYPERLIPIDEMIA NEC/NOS 10/07/2016 IOANA TARIQ DO Ot 721.0 CERVICAL SPONDYLOSIS 10/07/2016 BAIMA REBEL L MEDICAL CLAIMS MANAGER Ot 397.0 TRICUSPID VALVE DISEASE 10/07/2016 BAIMA, REBEL L MEDICAL CLAIMS MANAGER Ot 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 NEC 10/07/2016 BAIMA, REBEL L MEDICAL CLAIMS MANAGER Ot 424.0 MITRAL VALVE DISORDER 10/07/2016 BAIMA REBEL L MEDICAL CLAIMS MANAGER Ot 272.4 HYPERLIPIDEMIA NEC/NOS 10/07/2016 BAIMA REBEL L MEDICAL CLAIMS MANAGER Ot V58.69 OT MED,LT,CURRENT USE 10/07/2016 GELLENDER DO, ADEN Mohr Ot 786.50 CHEST PAIN NOS 10/07/2016 GELLENDER DO, ADEN Mohr Ot V15.88 HISTORY OF FALL 10/07/2016 REBEL IVY L MEDICAL CLAIMS MANAGER Ot 272.4 HYPERLIPIDEMIA NEC/NOS 10/07/2016 GELLENDER DO, ADEN Mohr Ot 250.00 DIAB BHAVIK WO COMPL, TYPE II OR UNSPEC TY 10/07/2016 GELLENDER DO, ADEN Mohr Ot 401.9 HYPERTENSION NOS 10/07/2016 GELLENDER DO, ADEN Mohr Ot V76.12 OTH SCREEN MAMMO-MALIGN NEOPLASM OF VAN 10/07/2016 BAIMA REBEL L MEDICAL CLAIMS MANAGER Ot 250.00 DIAB BHVAIK WO COMPL, TYPE II OR UNSPEC TY 10/07/2016 BAIREBEL JC L MEDICAL CLAIMS MANAGER Ot 272.4 HYPERLIPIDEMIA NEC/NOS 10/07/2016 BAIMA REBEL L MEDICAL CLAIMS MANAGER Ot 401.9 HYPERTENSION NOS 10/07/2016 Ot 250.00 DIAB BHAVIK WO COMPL, TYPE II OR UNSPEC TY 10/07/2016 BAIHOSEA REBEL L MEDICAL CLAIMS MANAGER Ot 272.4 HYPERLIPIDEMIA NEC/NOS 10/07/2016 GELLENDER DO, [...] CHENG MD, Ot Y92.[address] IN [facility] NON-INST[facility] (PRIVATE 10/08/2016 AMADOR CHENG MD, Ot Y99.8 OTHER EXTERNAL CAUSE STATUS 10/08/2016 PROSPER FOWLER, AMADOR Rosario Ot Z79.84 SNF (CURRENT) USE OF ORAL HYPOGLYC 10/08/2016 PROSPER FOWLER, AMADOR Rosario Ot Z79.899 OTHER SNF (CURRENT) DRUG THERAPY 10/08/2016 PROSPER FOWLER, AMADOR Rosario Ot Z96.653 PRESENCE OF ARTIFICIAL KNEE JOINT, BILAT 10/09/2016 BAIMA, REBEL L MEDICAL CLAIMS MANAGER Ot 250.00 DIAB BHAVIK WO COMPL, TYPE II OR UNSPEC TY 10/09/2016 BAIMA, REBEL L MEDICAL CLAIMS MANAGER Ot 272.4 HYPERLIPIDEMIA NEC/NOS 10/09/2016 BAIMA, REBEL L MEDICAL CLAIMS MANAGER Ot 401.9 HYPERTENSION NOS 10/09/2016 Ot 250.00 DIAB BHAVIK WO COMPL, TYPE II OR UNSPEC TY 10/09/2016 BAIMA, REBEL L MEDICAL CLAIMS MANAGER Ot 272.4 HYPERLIPIDEMIA NEC/NOS 10/09/2016 GELLENDER DO, [...] W/O MYELOPATHY OR RADICULOPA 01/14/2017 GELJORGE L KATE ADEN Mohr Ot E05.90 THYROTOXICOSIS, UNSP WITHOUT THYROTOXIC 01/14/2017 JESUS KATE ADEN Mohr Ot E11.9 TYPE 2 DIABETES MELLITUS WITHOUT COMPLIC 01/14/2017 JESUS KATE ADEN Mohr Ot I10 ESSENTIAL (PRIMARY) HYPERTENSION 01/20/2017 [facility]r Ot D69.6 [...] VALVERDE APRN Ot Y92.[address] IN INTERMEDIATE PLACE 07/26/2017 TWYLA VALVERDE APRN Ot Z79.84 SNF (CURRENT) USE OF ORAL HYPOGLYC 07/26/2017 TWYLA VALVERDE APRN Ot Z86.718 PERSONAL HISTORY OF OTHER VENOUS THROMBO 07/26/2017 Ot V76.12 OTH SCREEN MAMMO-MALIGN NEOPLASM OF VAN 07/26/2017 Ot 272.4 HYPERLIPIDEMIA NEC/NOS 07/26/2017 Ot V58.69 OTH MED,LT, CURRENT USE 07/26/2017 Ot 789.01 ABDOMINAL PAIN, RIGHT UPPER QUADRANT 07/26/2017 Ot 575.8 DIS OF GALLBLADDER NEC 07/26/2017 Ot 789.01 ABDOMINAL PAIN, RIGHT UPPER QUADRANT 07/26/2017 BAIMA, REBEL L MEDICAL CLAIMS MANAGER Ot 272.4 HYPERLIPIDEMIA NEC/NOS 07/26/2017 BAIHOSEA, REBEL L MEDICAL CLAIMS MANAGER Ot 401.9 HYPERTENSION NOS 07/26/2017 LEANDROMA, REBEL L MEDICAL CLAIMS MANAGER Ot V58.69 OTH MED,LT,CURRENT USE 07/26/2017 ADEN LEE DO Ot 786.50 CHEST PAIN NOS 07/26/2017 ADEN LEE DO Ot V76.12 OTH SCREEN MAMMO-MALIGN NEOPLASM OF VAN 07/26/2017 ADEN LEE DO Ot 250.00 DIAB BHAVIK WO COMPL, TYPE II OR UNSPEC TY 07/26/2017 ADEN LEE DO Ot 272.4 HYPERLIPIDEMIA NEC/NOS 07/26/2017 IOANA TARIQ DO Ot 721.0 CERVICAL SPONDYLOSIS 07/26/2017 BAIMA, REBEL L MEDICAL CLAIMS MANAGER Ot 397.0 TRICUSPID VALVE DISEASE 07/26/2017 BAIMA, REBEL L MEDICAL CLAIMS MANAGER Ot 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 NEC 07/26/2017 BAIMA, REBEL L MEDICAL CLAIMS MANAGER Ot 424.0 MITRAL VALVE DISORDER 07/26/2017 BAIMA, REBEL L MEDICAL CLAIMS MANAGER Ot 272.4 HYPERLIPIDEMIA NEC/NOS 07/26/2017 LEANDROMA REBEL L MEDICAL CLAIMS MANAGER Ot V58.69 OTH MED,LT,CURRENT USE 07/26/2017 ADEN LEE DO Ot 786.50 CHEST PAIN NOS 07/26/2017 ADEN LEE DO Ot V15.88 HISTORY OF FALL 07/26/2017 BIJU REBEL L MEDICAL CLAIMS MANAGER Ot 272.4 HYPERLIPIDEMIA NEC/NOS 07/26/2017 ADEN LEE DO Ot 250.00 DIAB BHAVIK WO COMPL, TYPE II OR UNSPEC TY 07/26/2017 JESUS KATE ADEN Fani Ot 401.9 HYPERTENSION NOS 07/26/2017 ADEN LEE DO Ot V76.12 OTH SCREEN MAMMO-MALIGN NEOPLASM OF VAN 07/26/2017 BAIMA, REBEL L MEDICAL CLAIMS MANAGER Ot 250.00 DIAB BHAVIK WO COMPL, TYPE II OR UNSPEC TY 07/26/2017 BAIMA, REBEL L MEDICAL CLAIMS MANAGER Ot 272.4 HYPERLIPIDEMIA NEC/NOS 07/26/2017 BAIMA, REBEL L MEDICAL CLAIMS MANAGER Ot 401.9 HYPERTENSION NOS 07/26/2017 Ot 250.00 DIAB BHAVIK WO COMPL, TYPE II OR UNSPEC TY 07/26/2017 BAIMA, REBEL L MEDICAL CLAIMS MANAGER Ot 272.4 HYPERLIPIDEMIA NEC/NOS 07/26/2017 GELLENDER DO, [...] RIGHT UPPER QUADRANT 09/10/2017 REBEL IVY L MEDICAL CLAIMS MANAGER Ot 272.4 HYPERLIPIDEMIA NEC/NOS 09/10/2017 BAIMA, REBEL L MEDICAL CLAIMS MANAGER Ot 401.9 HYPERTENSION NOS 09/10/2017 BIJU REBEL L MEDICAL CLAIMS MANAGER Ot V58.69 OTH MED,LT,CURRENT USE 09/10/2017 ADEN [...] 721.0 CERVICAL SPONDYLOSIS 09/10/2017 LEANDROMA, REBEL L MEDICAL CLAIMS MANAGER Ot 397.0 TRICUSPID VALVE DISEASE 09/10/2017 LEANDROMA, REBEL L MEDICAL CLAIMS MANAGER Ot 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 NEC 09/10/2017 BAIHOSEA, REBEL L MEDICAL CLAIMS MANAGER Ot 424.0 MITRAL VALVE DISORDER 09/10/2017 BAIMA, REBEL L MEDICAL CLAIMS MANAGER Ot 272.4 HYPERLIPIDEMIA NEC/NOS 09/10/2017 BIJU REBEL L MEDICAL CLAIMS MANAGER Ot V58.69 OTH MED,LT,CURRENT USE 09/10/2017 GELLENDER DO, ADEN Fani Ot 786.50 CHEST PAIN NOS 09/10/2017 GELLENDER DO, ADEN Mohr Ot V15.88 HISTORY OF FALL 09/10/2017 BAIMAREBEL L MEDICAL CLAIMS MANAGER Ot 272.4 HYPERLIPIDEMIA NEC/NOS 09/10/2017 GELLENDER DO, ADEN Fani Ot 250.00 DIAB BHAVIK WO COMPL, TYPE II OR UNSPEC TY 09/10/2017 GELLENDER DO, ADEN Mohr Ot 401.9 HYPERTENSION NOS 09/10/2017 GELLENDER DO, ADEN Mohr Ot V76.12 OTH SCREEN MAMMO-MALIGN NEOPLASM OF VAN 09/10/2017 BAIMA, REBEL L MEDICAL CLAIMS MANAGER Ot 250.00 DIAB BHAVIK WO COMPL, TYPE II OR UNSPEC TY 09/10/2017 BAIMA, REBEL L MEDICAL CLAIMS MANAGER Ot 272.4 HYPERLIPIDEMIA NEC/NOS 09/10/2017 BAIMA, REBEL L MEDICAL CLAIMS MANAGER Ot 401.9 HYPERTENSION NOS 09/10/2017 Ot 250.00 DIAB BHAVIK WO COMPL, TYPE II OR UNSPEC TY 09/10/2017 BAIMA REBEL L MEDICAL CLAIMS MANAGER Ot 272.4 HYPERLIPIDEMIA NEC/NOS 09/10/2017 GELLENDER DO, [...] 40.0-44.9, ADULT 10/18/2017 ERIN EISENBERGP Ot Z79.84 AUTOMOBILE UPHOLSTERER (CURRENT) USE OF ORAL HYPOGLYC 10/18/2017 ERIN EISENBERG MEDICAL CLAIMS MANAGER Ot Z86.718 PERSONAL HISTORY OF OTHER VENOUS THROMBO 10/18/2017 ERIN EISENBERG MEDICAL CLAIMS MANAGER Ot Z88.0 ALLERGY STATUS TO PENICILLIN 10/18/2017 FAINA ERIN MEDICAL CLAIMS MANAGER Ot Z88.5 ALLERGY STATUS TO NARCOTIC AGENT STATUS 10/18/2017 ERIN EISENBERG MEDICAL CLAIMS MANAGER Ot Z88.6 ALLERGY STATUS TO ANALGESIC AGENT [...] PAIN, RIGHT UPPER QUADRANT 10/18/2017 REBEL IVY MEDICAL CLAIMS MANAGER Ot 272.4 HYPERLIPIDEMIA NEC/NOS 10/18/2017 REBEL IVY MEDICAL CLAIMS MANAGER Ot 401.9 HYPERTENSION NOS 10/18/2017 REBEL IVY MEDICAL CLAIMS MANAGER Ot V58.69 OTH MED,LT,CURRENT USE 10/18/2017 ADEN LEE DO Ot 786.50 CHEST PAIN NOS 10/18/2017 ADEN LEE DO Ot V76.12 OTH SCREEN MAMMO-MALIGN NEOPLASM OF VAN 10/18/2017 ADEN LEE DO Ot 250.00 DIAB BHAVIK WO COMPL, TYPE II OR UNSPEC TY 10/18/2017 ADEN LEE DO Ot 272.4 HYPERLIPIDEMIA NEC/NOS 10/18/2017 CHANDNI IOANA Mai Ot 721.0 CERVICAL SPONDYLOSIS 10/18/2017 REBEL IVY MEDICAL CLAIMS MANAGER Ot 397.0 TRICUSPID VALVE DISEASE 10/18/2017 REBEL IVY L MEDICAL CLAIMS MANAGER Ot 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 NEC 10/18/2017 BAIREBEL JC MEDICAL CLAIMS MANAGER Ot 424.0 MITRAL VALVE DISORDER 10/18/2017 BAIREBEL JC L MEDICAL CLAIMS MANAGER Ot 272.4 HYPERLIPIDEMIA NEC/NOS 10/18/2017 BAIREBEL JC L MEDICAL CLAIMS MANAGER Ot V58.69 OTH MED,LT,CURRENT USE 10/18/2017 NINILENDER , ADEN Mohr Ot 786.50 CHEST PAIN NOS 10/18/2017 GELLENDER DO, ADEN Mohr Ot V15.88 HISTORY OF FALL 10/18/2017 REBEL IVY L MEDICAL CLAIMS MANAGER Ot 272.4 HYPERLIPIDEMIA NEC/NOS 10/18/2017 GELLENDER DO, ADEN Mohr Ot 250.00 DIAB BHAVIK WO COMPL, TYPE II OR UNSPEC TY 10/18/2017 GELLENDER DO, ADEN Mohr Ot 401.9 HYPERTENSION NOS 10/18/2017 GELLENDER DO, ADEN Mohr Ot V76.12 OTH SCREEN MAMMO-MALIGN NEOPLASM OF VAN 10/18/2017 LEANDROHOSEA REBEL L MEDICAL CLAIMS MANAGER Ot 250.00 DIAB BHAVIK WO COMPL, TYPE II OR UNSPEC TY 10/18/2017 BAIREBEL JC L MEDICAL CLAIMS MANAGER Ot 272.4 HYPERLIPIDEMIA NEC/NOS 10/18/2017 REBEL IVY L MEDICAL CLAIMS MANAGER Ot 401.9 HYPERTENSION NOS 10/18/2017 Ot 250.00 DIAB BHAVIK WO COMPL, TYPE II OR UNSPEC TY 10/18/2017 BAIREBEL JC L MEDICAL CLAIMS MANAGER Ot 272.4 HYPERLIPIDEMIA NEC/NOS 10/18/2017 GELLENDER DO, [...] UNSPECIFIED 10/18/2017 GELLENDER DO, ADEN Mohr Ot D72.819 DECREASED [...] DIABETES MELLITUS WITHOUT COMPLIC 10/20/2017 FAINA, ERIN MEDICAL CLAIMS MANAGER Ot E66.01 MORBID (SEVERE) OBESITY DUE TO EXCESS CA 10/20/2017 FAINA, ERIN MEDICAL CLAIMS MANAGER Ot E78.00 PURE HYPERCHOLESTEROLEMIA, UNSPECIFIED 10/20/2017 FAINA, ERIN MEDICAL CLAIMS MANAGER Ot I10 ESSENTIAL (PRIMARY) HYPERTENSION 10/20/2017 FAINA, ERIN MEDICAL CLAIMS MANAGER Ot K21.9 GASTRO-ESOPHAGEAL REFLUX DISEASE WITHOUT 10/20/2017 AFINA, ERIN MEDICAL CLAIMS MANAGER Ot S09.90XA UNSPECIFIED INJURY OF HEAD, INITIAL ENCO 10/20/2017 FAINA, ERIN MEDICAL CLAIMS MANAGER Ot W01.10XA FALL SAME LEV FROM SLIP/TRIP W STRIKE AG 10/20/2017 FAINA, ERIN TREADWELLP Ot Z68.41 BODY MASS INDEX (BMI) 40.0-44.9, ADULT 10/20/2017 ERIN EISENBERG Ot Z79.84 AUTOMOBILE UPHOLSTERER (CURRENT) USE OF ORAL HYPOGLYC 10/20/2017 FAINA, [...] 03/09/2018 GELLENDER DO, ADEN Mohr Ot Z79.84 SNF (CURRENT) USE OF ORAL HYPOGLYC 03/09/2018 GELLENDER [...] 03/09/2018 GELLENDER DO, ADEN Mohr Ot Z79.84 SNF (CURRENT) USE OF ORAL HYPOGLYC 03/09/2018 GELLENDER [...] 03/11/2018 GELLENDER DO, ADEN Mohr Ot Z79.84 SNF (CURRENT) USE OF ORAL HYPOGLYC 03/11/2018 NINILENDER DO, ADEN Mohr Ot Z86.711 PERSONAL HISTORY OF PULMONARY EMBOLISM 03/11/2018 GELLENDER DO, ADEN Mohr Ot Z86.718 PERSONAL HISTORY OF OTHER VENOUS THROMBO 03/11/2018 NINILENRICK DO, ADEN Mohr Ot Z95.828 PRESENCE OF [...] ADULT 03/16/2018 HECTOR BRITT MD Ot Z79.84 AUTOMOBILE UPHOLSTERER (CURRENT) USE OF ORAL HYPOGLYC 03/17/2018 HECTOR BRITT MD Ot D64.9 ANEMIA, UNSPECIFIED 03/17/2018 HECTOR BRITT MD Ot D69.6 THROMBOCYTOPENIA, UNSPECIFIED 03/17/2018 HECTOR BRITT MD Ot E11.9 TYPE 2 DIABETES MELLITUS WITHOUT COMPLIC 03/17/2018 HECTOR BRITT MD Ot E66.9 OBESITY, UNSPECIFIED 03/17/2018 HECTOR BRITT MD E Ot E78.00 PURE HYPERCHOLESTEROLEMIA, UNSPECIFIED 03/17/2018 HECOTR BRITT MD E Ot E78.2 MIXED HYPERLIPIDEMIA [...] ADULT 03/17/2018 HECTOR BRITT MD Ot Z79.84 AUTOMOBILE UPHOLSTERER (CURRENT) USE OF ORAL HYPOGLYC 03/17/2018 HECTOR [...] ADULT 03/17/2018 HECTOR BRITT MD Ot Z79.84 AUTOMOBILE UPHOLSTERER (CURRENT) USE OF ORAL HYPOGLYC 03/17/2018 HECTOR [...] ADULT 03/17/2018 HECTOR BRITT MD Ot Z79.84 AUTOMOBILE UPHOLSTERER (CURRENT) USE OF ORAL HYPOGLYC 03/18/2018 HECTOR [...] 03/18/2018 HECTOR BRITT MD E Ot Z79.84 SNF (CURRENT) USE OF ORAL HYPOGLYC 03/19/2018 HECTOR [...] ADULT 03/19/2018 HECTOR BRITT MD Ot Z79.84 SNF (CURRENT) USE OF ORAL HYPOGLYC 03/20/2018 HECTOR [...] ADULT 03/20/2018 HECTOR BRITT MD Ot Z79.84 AUTOMOBILE UPHOLSTERER (CURRENT) USE OF ORAL HYPOGLYC 03/21/2018 HECTOR [...] ADULT 03/21/2018 HECTOR BRITT MD Ot Z79.84 AUTOMOBILE UPHOLSTERER (CURRENT) USE OF ORAL HYPOGLYC 03/22/2018 HECTOR [...] ADULT 03/22/2018 HECTOR BRITT MD Ot Z79.84 SNF (CURRENT) USE OF ORAL HYPOGLYC 03/22/2018 HECTOR [...] ADULT 03/22/2018 HECTOR BRITT MD Ot Z79.84 SNF (CURRENT) USE OF ORAL HYPOGLYC 03/23/2018 HECTOR [...] 03/23/2018 HECTOR BRITT MD E Ot Z79.84 AUTOMOBILE UPHOLSTERER (CURRENT) USE OF ORAL HYPOGLYC 03/24/2018 HECTOR [...] 03/24/2018 HECTOR BRITT MD E Ot Z79.84 AUTOMOBILE UPHOLSTERER (CURRENT) USE OF ORAL HYPOGLYC 03/24/2018 HECTOR [...] ADULT 03/24/2018 HECTOR BRITT MD Ot Z79.84 SNF (CURRENT) USE OF ORAL HYPOGLYC Procedures Code Description Performed By Performed On [id number] INSERT OF MONITOR DEV INTO CHEST SUBCU/F [...] NRG Blood erythrocyte morphology finding identification NORMAL [facility] Comprehensive metabolic panel - 03/24/18 05:33 Serum [...] Status Pt. Type Provider Facility Loc./Unit Complaint [id number] 03/26/2018 06:46:00 03/26/2018 23:59:59 [facility] Emergency PROSPER FOWLER, AMADOR Rosario [facility] ER DROWSY, DIFFICULT TO WAKE [id number] 03/11/2018 10:00:00 03/24/2018 16:25:00 DIS Outpatient LORENZA FOWLER, HECTOR Bolanos [facility] IRF CVA [id number] 03/08/2018 15:00:00 03/11/2018 10:01:00 DIS Inpatient ADEN LEE DO [facility] 4TH CONFUSION,WEAKNESS, CVA?,HTN [id number] 12/18/2017 10:15:00 12/18/2017 13:55:00 DIS Outpatient ADEN LEE DO [facility] REHAB GENERAL WEAKNESS; DIFFICULTY IN TALKING [id number] 10/18/2017 16:07:00 10/18/2017 19:02:00 DIS Emergency ERIN EISENBERG [facility] ER FALL [id number] 08/05/2017 08:01:00 08/05/2017 23:59:59 CLS Outpatient ADEN LEE DO Fani [facility] LAB DIABETES, HYPERLIPIDEMIA [id number] 07/26/2017 09:53:00 07/26/2017 13:00:00 DIS Emergency TWYLA VALVERDE FLOR [facility] ER FALL [id number] 01/22/2017 10:30:00 01/22/2017 12:00:00 DIS Outpatient IOANA TARIQ DO [facility] REHAB LOW BACK PAIN AND LUMBAR SPONDYLOSIS [id number] 01/19/2017 08:14:00 01/19/2017 23:59:59 CLS Outpatient NINIJORGE L AKTE ADEN Fani [facility] LAB THROMBOCYCLOPE [id number] 12/23/2016 08:44:00 12/23/2016 23:59:59 CLS Outpatient ANNASANDHU ADEN Fani [facility] LAB HTN [id number] 10/07/2016 13:11:00 10/07/2016 14:45:00 DIS Emergency AMADOR CHENG MD [facility] ER KNEE PAIN [id number] 08/28/2016 08:29:00 08/28/2016 23:59:59 CLS Outpatient ADEN LEE DO [facility] LAB DIABETIS, HYPERTENSION [id number] 06/30/2016 09:17:00 06/30/2016 23:59:59 CLS Outpatient ADEN LEE DO [facility] RAD SCREENING [id number] 06/12/2016 08:15:00 06/12/2016 11:53:00 DIS Outpatient IOANA TARIQ DO [facility] REHAB S/P REVERSE LEFT TSA [id number] 05/29/2016 10:20:00 05/30/2016 17:00:00 DIS Outpatient IOANA TARIQ DO [facility] REHAB S/P REVERSE LEFT TSA [id number] 05/21/2016 08:02:00 05/21/2016 23:59:59 CLS Outpatient JESUS KATEADEN [facility] LAB LEUKOPENIA, THROMBOCYTOPENIA [id number] 05/06/2016 08:17:00 05/06/2016 23:59:59 CLS Outpatient JESUS KATEADEN [facility] LAB DIABETES, HYPERLIPIDEMIA [id number] 07/09/2015 08:33:00 07/09/2015 23:59:59 CLS Outpatient JESUS KATE ADEN Fani [facility] LAB DIABTS, [id number] 07/04/2015 09:09:00 07/04/2015 23:59:59 CLS Outpatient IOANA TARIQ DO [facility] RAD LUMBAR SPONDYLOSIS, DJD LEFT HIP [id number] 06/27/2015 08:43:00 06/27/2015 23:59:59 CLS Outpatient JESUS ADEN KATE [facility] RAD SCREENING [id number] 03/06/2015 07:08:00 03/06/2015 07:20:00 DIS Emergency AJITH FOWLER, LATASHA Hummel [facility] ER STAPLE REMOVAL [id number] 02/27/2015 10:38:00 02/27/2015 12:13:00 DIS Emergency REANNA FOWLER, BRUCE Rao [facility] ER FALL;L LEG PAIN [id number] 02/19/2015 08:28:00 02/19/2015 23:59:59 CLS Outpatient JESUS KATEADEN [facility] LAB DIABETES,PERIPHERAL ADEMIA [id number] 02/19/2015 08:20:00 02/19/2015 23:59:59 CLS Outpatient REBEL IVY [facility] LAB HYPERLIPIDEMIA [id number] 08/22/2014 10:30:00 08/22/2014 23:59:59 CLS Outpatient REBEL IVY [facility] LAB HLP,DM,HTN [id number] 06/26/2014 10:05:00 06/26/2014 23:59:59 CLS Outpatient JESUS ADEN KATE [facility] RAD SCREENING [id number] 04/05/2014 09:08:00 04/05/2014 23:59:59 CLS Outpatient ADEN LEE DO [facility] LAB DIABETES [id number] 02/21/2014 08:25:00 02/21/2014 23:59:59 CLS Outpatient REBEL IVY [facility] LAB OTHER UNSPECIFIED HYPERLIPIDEMIA [id number] 01/27/2014 10:30:00 01/27/2014 23:59:59 CLS Outpatient ADEN LEE DO [facility] RAD FELL LAST THURSDAY, PAIN IN R RIBS [id number] 08/18/2013 11:05:00 08/18/2013 23:59:59 CLS Outpatient REBEL IVY [facility] LAB HLP [id number] 08/12/2013 12:58:00 08/18/2013 14:04:00 DIS Outpatient IOANA TARIQ DO [facility] REHAB CERVICAL SPONDYLOSIS [id number] 08/16/2013 12:34:00 08/16/2013 23:59:59 CLS Outpatient REBEL IVY [facility] CARD HTN [id number] 08/13/2013 18:38:00 08/13/2013 23:46:00 DIS Emergency PROSPER FOWLER, AMADOR Rosario [facility] ER CP [id number] 07/25/2013 09:12:00 07/25/2013 23:59:59 CLS Outpatient IOANA TARIQ DO [facility] RAD CERVICAL SPONDYLOSIS [id number] 06/29/2013 07:43:00 06/29/2013 23:59:59 CLS Outpatient NINIJORGE L KATEADEN Fani [facility] LAB DM,HLP [id number] 06/24/2013 08:48:00 06/24/2013 23:59:59 CLS Outpatient JESUS ADEN [facility] RAD SCREENING [id number] 05/31/2013 08:35:00 06/22/2013 14:00:00 DIS Outpatient IOANA TARIQ DO [facility] REHAB DJD R SHOULDER CERVICAL SPONDYLOSIS [id number] 04/27/2013 10:00:00 05/06/2013 10:28:00 DIS Outpatient IOANA TARIQ DO [facility] REHAB CERVICAL SPONDYLOSIS, RT SIDED RADICULOPATHY [id number] 02/28/2013 11:21:00 02/28/2013 23:59:59 CLS Outpatient ADEN LEE DO [facility] RAD RIGHT RIB PAIN [id number] 02/01/2013 07:52:00 02/01/2013 23:59:59 CLS Outpatient REBEL IVY [facility] LAB HTN,HLP,STATIN [place] [id number] 12/03/2015 08:11:00 Document Registration [id number] 07/04/2015 09:08:00 Document Registration [id number] 10/25/2014 08:56:00 Document Registration [id number] 10/06/2012 09:30:00 Document Registration [id number] 09/30/2012 08:04:00 Document Registration [id number] 08/12/2012 08:40:00 Document Registration [id number] 06/21/2012 10:00:00 Document Registration [id number] 01/09/2012 14:12:00 Document Registration [id number] 01/06/2012 11:23:00 Document Registration [id number] 12/25/2011 11:32:00 Document Registration [id number] 12/04/2011 08:05:00 Document Registration [id number] 11/26/2011 07:55:00 Document Registration [id number] 06/19/2011 07:48:00 Document Registration [id number] 06/05/2011 10:04:00 Document Registration [id number] 05/06/2011 07:00:00 Document Registration [id number] 03/19/2011 16:56:00 Document Registration [id number] 09/04/2010 07:56:00 Document Registration [id number] 04/22/2010 08:15:00 Document Registration [id number] 04/17/2010 08:06:00 Document Registration [id number] 04/02/2010 12:05:00 Document Registration [id number] 04/01/2010 13:49:00 Document Registration [id number] 03/27/2010 09:38:00 Document Registration [id number] 03/08/2010 11:02:00 Document Registration [id number] 02/28/2010 07:44:00 Document Registration
[2018-04-03] MEDS: cefTRIAXone 1 GM/NS 50 ML IVPB IV SCH ×2 (05:04)
[2018-04-03] MEDS: PANTOPRAZOLE 40 MG (PROTONIX) TAB PO SCH (05:05)
[2018-04-03 06:52] LABS: BASOPHILS % (AUTO) 0 % (0-10); EOSINOPHILS # (AUTO) 0.4 10^3/uL (0.0-0.3); EOSINOPHILS % (AUTO) 6 % (0-10); HEMATOCRIT 21 % (35-52); LYMPHOCYTES # (AUTO) 1.1 X 10^3 (1.0-4.0); LYMPHOCYTES % (AUTO) 15 % (12-44); MEAN CORPUSCULAR HEMOGLOBIN 30 PG (25-34); MEAN CORPUSCULAR HGB CONC 33 G/DL (32-36); MEAN CORPUSCULAR VOLUME 91 FL (80-99); MEAN PLATELET VOLUME 11.3 FL (7.4-10.4); MONOCYTES # (AUTO) 0.7 X 10^3 (0.0-1.0); MONOCYTES % (AUTO) 10 % (0-12); NEUTROPHILS # (AUTO) 4.8 X 10^3 (1.8-7.8); NEUTROPHILS % (AUTO) 69 % (42-75); PLATELET COUNT 93 10^3/uL (130-400); RED BLOOD COUNT 2.29 10^6/uL (4.35-5.85)
[2018-04-03 06:57] LABS: HEMOGLOBIN 6.8 G/DL (11.5-16.0)
[2018-04-03 07:06] LABS: ALANINE AMINOTRANSFERASE 14 U/L (0-55); ALBUMIN 2.2 GM/DL (3.2-4.5); ALKALINE PHOSPHATASE 53 U/L (40-136); BUN/CREATININE RATIO 38; CALCIUM 7.9 MG/DL (8.5-10.1); CARBON DIOXIDE 24 MMOL/L (21-32); CHLORIDE 113 MMOL/L (98-107); CHOLESTEROL 84 MG/DL (< 200); CREATININE SERUM 0.73 MG/DL (0.60-1.30); GFR ESTIMATED > 60; GLUCOSE 123 MG/DL (70-105); HDL CHOLESTEROL 28 MG/DL (40-60); MAGNESIUM 1.3 MG/DL (1.8-2.4); POTASSIUM 3.9 MMOL/L (3.6-5.0); SODIUM 142 MMOL/L (135-145); TOTAL PROTEIN 4.5 GM/DL (6.4-8.2); TRIGLYCERIDES 60 MG/DL (<150); VLDL CHOLESTEROL 12 MG/DL (5-40)
[2018-04-03 08:39] LABS: HEMOGLOBIN 6.9 G/DL (11.5-16.0)
[2018-04-03] MEDS ORDERED: APIXABAN 5 MG (ELIQUIS) TABLET PO SCH (09:00)
[2018-04-03] MEDS ORDERED: NON-FORMULARY MEDICATION 1 EA EA (Omeprazole 40 MG) PO SCH (09:00)
[2018-04-03] MEDS ORDERED: lisINopril 10 MG (PRINIVIL) TABLET PO SCH (09:00)
--- NOTE | 2018-04-03 09:01 | Cardiology Progress Note ---
Subjective Date Seen by Provider: Apr 03, 2018 Time Seen by Provider: 08:58 Subjective/Events-last exam Patient is laying down in bed, slightly more slurred speech at this time. Denied any chest pain, having frequent PVCs with ventricular bigeminy Review of Systems General: No Chills, No Night Sweats; Fatigue, Malaise; No Appetite, No Other HEENT: No Head Aches, No Visual Changes, No Eye Pain, No Ear Pain, No Dysphasia , No Sinus Congestion, No Post Nasal Drip, No Sore Throat, No Other Pulmonary: No Dyspnea, No Cough, No Pleuritic Chest Pain, No Other Cardiovascular: Edema; No: Chest Pain, Palpitations, Orthopnea, Paroxysmal Noc. Dyspnea, Lt Headedness, Other Focused Exam Lactate Level 04/02/18 03:57: Lactic Acid Level 3.61*H 04/02/18 06:45: Lactic Acid Level 2.46*H 04/02/18 17:08: Lactic Acid Level 1.31 Objective-Cardiology Exam Last Set of Vital Signs Vital Signs 04/02/18 04/03/18 04/03/18 04/03/18 04/03/18 06:57 04:07 06:00 07:00 07:40 Temp 97.0 Pulse 81 Resp 16 B/P (MAP) 98/51 (67) Pulse Ox 100 O2 Delivery Room Air FiO2 21 Capillary Refill : Less Than 3 Seconds I&O Intake and Output 04/03/18 00:00 Intake Total 2305 ml Output Total 266 ml Balance 2039 ml Intake Oral 505 ml IV Total 1800 ml Output Urine Total 266 ml Daily Weight Change No General: Alert, Oriented X3, Cooperative, Moderate Distress HEENT: Atraumatic, PERRLA Neck: Supple, No JVD, No Thyromegaly Lungs: Clear to Auscultation, Normal Air Movement Heart: Normal S1, Normal S2, Other (Ventricular bigeminy, systolic murmur at the left sternal border) Abdomen: Normal Bowel Sounds, Soft, No Tenderness, No Hepatosplenomegaly, No Masses Extremities: No Clubbing, No Cyanosis, No Edema, Normal Pulses, No Tenderness/ Swelling Skin: No Rashes, No Breakdown, No Significant Lesion Neuro: Sensation Intact, Other (Slurred speech) Psych/Mental Status: Mental Status NL, Mood NL Results Lab Laboratory Tests 04/02/18 17:08 04/02/18 23:40 04/03/18 06:35 04/03/18 06:45 04/03/18 08:30 A/P-Cardiology Admission Diagnosis Sepsis UTI Sick sinus syndrome Change in mental status Assessment/Plan Near Syncope, history of syncope with recent pacemaker implant, significant drop in H&H. I will transfuse 2 units of packed RBCs, consult Dr. Clifton, consult Dr. Jonas. Continue to hold Eliquis Sick sinus syndrome with history of syncope, status post pacemaker implant, site is healing well UTI, sepsis, started on Rocephin, managed by medical team, was on Clindamycin as an outpatient Anemia, mild thrombocytopenia, seen previously by Dr Clifton, significant drop in H& H over the past 24 hours. Did not receive Eliquis since arrival to the hospital , continue to hold it, transfuse 2 units of packed RBCs and initiate workup for GI loss as described above Paroxysmal atrial fibrillation, currently in sinus rhythm with APCs and VPCs, monitor blood pressure and heart rate History of CVA with subsequent dysphasia, worse on 03-17-18, but has improved, mild slurred Speech noted Echo of 03/18/18: LVEF 55-60%, AoV sclerosis w/o stenosis, PASP 30 mmHg No angiographically significant coronary artery disease, normal global left ventricular systolic function with an ejection fraction of approximately 60 to 65%, elevated left ventricular end-diastolic pressure indicative of some degree of diastolic dysfunction of the left ventricle, and no significant mitral regurgitation per cardiac catheterization from 01/06/12 Maturity onset diabetes mellitus. Hypertension, restart home meds and monitor blood pressure response Chronic bilateral leg swelling, likely related to venous insufficiency. Hyperlipidemia, continue to monitor Chronic back pain and degenerative joint disease. Pulmonary artery systolic pressure is estimated to be approximately 40 mmHg per echocardiogram from 08/18/2013, which is unchanged from 2012 Clinical Quality Measures DVT/VTE Risk/Contraindication: Risk Factor Score Per Nursin RFS Level Per Nursing on Admit: 4+=Very High Contraindications-Pharm: Other *list below* CHRISTY GRANGER MD Apr 03, 2018 09:01
--- NOTE | 2018-04-03 11:25 | Progress Note-Hospitalist ---
Subjective HPI/CC On Admission Date Seen by Provider: Apr 03, 2018 Time Seen by Provider: 09:30 Per staff patient is little more alert this morning. Expressive aphasia reportedly chronic does make communication difficult. Her daughter was present at the bedside and felt she was doing much better than she was at the [facility] prior to admission. She appears to be in no acute distress can answer in 1 or 2 word answers and denies shortness of breath chest pain nausea or abdominal pain. Focused Exam Lactate Level 04/02/18 03:57: Lactic Acid Level 3.61*H 04/02/18 06:45: Lactic Acid Level 2.46*H 04/02/18 17:08: Lactic Acid Level 1.31 Objective Exam Vital Signs Vital Signs Date Time Temp Pulse Resp B/P (MAP) Pulse Ox O2 Delivery O2 Flow Rate FiO2 04/03/18 11:00 96.7 79 25 105/40 96 04/03/18 10:40 Room Air 04/02/18 06:57 21 Capillary Refill : Less Than 3 Seconds General Appearance: No Apparent Distress, Chronically ill, Obese Respiratory: Chest Non Tender, Lungs Clear, Normal Breath Sounds, No Accessory Muscle Use, No Respiratory Distress Cardiovascular: Regular Rate, Rhythm (Frequent PVCs with runs of bigeminy on the monitor no complex ventricular arrhythmia or atrial arrhythmia noted.), No Edema, No Gallop, No JVD, No Murmur, Normal Peripheral Pulses Gastrointestinal: Normal Bowel Sounds, No Organomegaly, No Pulsatile Mass, Non Tender, Soft Extremity: Other (1-2+ bilateral edema to the upper tibia bilaterally without evidence for erythema warmth or pain to palpation. Bilateral Achilles likely chronic tendon contractures noted with secondary foot extension) Neurologic/Psychiatric: Other (Apparent cognitive slowing with significant expressive aphasia. No evidence for agitation appears to answer simple questions appropriately) Results/Procedures Lab Laboratory Tests 04/02/18 17:08 04/02/18 23:40 04/03/18 06:35 04/03/18 06:45 04/03/18 08:30 Patient resulted labs reviewed. Assessment/Plan Assessment and Plan Assess & Plan/Chief Complaint Near Syncope, history of syncope with recent pacemaker implant, significant drop in H&H. I will transfuse 2 units of packed RBCs, consult Dr. Clifton, consult Dr. Jonas. Continue to hold Eliquis Sick sinus syndrome with history of syncope, status post pacemaker implant, site is healing well UTI, sepsis, started on Rocephin, managed by medical team, was on Clindamycin as an outpatient Anemia, mild thrombocytopenia, seen previously by Dr Clifton, significant drop in H& H over the past 24 hours. Did not receive Eliquis since arrival to the hospital , continue to hold it, transfuse 2 units of packed RBCs and initiate workup for GI loss as described above Paroxysmal atrial fibrillation, currently in sinus rhythm with APCs and VPCs, monitor blood pressure and heart rate History of CVA with subsequent dysphasia, worse on 03-17-18, but has improved, mild slurred Speech noted Echo of 03/18/18: LVEF 55-60%, AoV sclerosis w/o stenosis, PASP 30 mmHg No angiographically significant coronary artery disease, normal global left ventricular systolic function with an ejection fraction of approximately 60 to 65%, elevated left ventricular end-diastolic pressure indicative of some degree of diastolic dysfunction of the left ventricle, and no significant mitral regurgitation per cardiac catheterization from 01/06/12 Considering hypotension and increased BUN/creatinine ratio in a woman of low muscle mass without evidence for pulmonary edema and significant albumin decrease I would favor intravascular volume depletion and secondary hypotension with presyncope favored over sepsis from urinary tract infection. We will increase IV fluid intake and hold lisinopril after discussion with cardiology who is in agreement. Urine output is also been poor averaging the letter 30 mL per hour per staff. Urine tract infection continue antibiotics doubt sepsis. Critical Care Critical Care: Critically Ill Patient Clinical Quality Measures DVT/VTE Risk/Contraindication: Risk Factor Score Per Nursin RFS Level Per Nursing on Admit: 4+=Very High Contraindications-Pharm: Other *list below* MILI SIMONS MD Apr 03, 2018 11:25
--- NOTE | 2018-04-03 12:03 | CONSULTATION REPORT ---
DATE OF SERVICE: 04/03/2018 ATTENDING PRIMARY CARE PHYSICIAN: Dr. Ba Cortez. HISTORY OF PRESENT ILLNESS: The patient is a 77-year-old female, who is a resident of an assisted living facility. The day before, the patient reports that she got up to go to the bathroom early in the morning and after getting up, she felt lightheaded and fell to the floor, which was witnessed. EMS was called. She was seen and did not have an acute mental status changes. She does have significant past medical history including hypertension, hypercholesterolemia as well as diabetes. She was also found to have urinary tract infection and was admitted for urosepsis and a vasovagal episode. Since being admitted, she was found to be anemic; however, she has had worsening anemia on lab work with initial hemoglobin of 8.6; however, this did drop to 6.8 requiring one unit so far. She does have a history of gastroesophageal reflux disease. She is unsure when her last colonoscopy was. She does not report any hematemesis, no coffee ground emesis. She also does not recall any red blood per rectum nor any dark tarry stools. PAST MEDICAL HISTORY: Diabetes, hypertension, hypercholesterolemia, history of deep vein thrombosis, degenerative joint disease and history of pulmonary embolism in 2000. ALLERGIES: PENICILLIN, CODEINE AND ASPIRIN. MEDICATIONS: 1. Apixaban 5 mg b.i.d. 2. Atorvastatin 40 mg daily. 3. Clindamycin 300 mg t.i.d. 4. Fesoterodine 4 mg daily. 5. Fish oil 1200 mg b.i.d. 6. Lisinopril 10 mg daily. 7. Metformin 500 mg b.i.d. 8. Omeprazole 40 mg daily. 9. Telmisartan 80 mg daily. SOCIAL HISTORY: Negative smoke, negative alcohol. FAMILY HISTORY: Noncontributory. REVIEW OF SYSTEMS: This is a well-nourished female currently in no acute distress. She is not experiencing any shortness of breath or difficulty breathing. No chest pain, palpitations, diaphoresis. History of epigastric burning sensation as well as crampy pain and reflux type symptoms for many years. No hematemesis, no coffee ground emesis. History of constipation. No red blood per rectum. No dark tarry stools. No fever or chills. With a vasovagal episode. She does not report any recent inadvertent weight loss or any fever or chills. PHYSICAL EXAMINATION: VITAL SIGNS: Temperature 96.7, blood pressure of 105/40, pulse 79, respirations 25, pulse ox 96% on room air. CHEST: A few scattered rales and rhonchi bilaterally. HEART: Regular, no murmurs. EXTREMITIES: No lower extremity edema, negative Homans sign. HEENT: No scleral icterus. NECK: No cervical lymphadenopathy. ABDOMEN: Soft, nontender, nondistended. SKIN: Warm, dry. LABORATORY DATA: WBC 7.0, hemoglobin 6.9, hematocrit 21, platelets 93, BUN 28, creatinine 0.73. INR was 2.3. ASSESSMENT AND PLAN: A 77-year-old female with urosepsis and a vasovagal episode. She was admitted to the ICU and placed on IV fluids as well as antibiotics. She is also being seen by Cardiology. A potential other cause for her episode includes anemia. She came in anemic; however, with resuscitation, her anemia has worsened. She does have a history of gastroesophageal reflux disease and is unsure about any signs or symptoms of lower gastrointestinal bleeding. On this admission, we will proceed with an EGD and colonoscopy. Job ID: [id number] DocumentID: [id number] Dictated Date: 04/03/2018 11:37:58 Aircraft Charter Dispatcher Date: 04/03/2018 12:02:54 Dictated By: KORY LACY MD
[2018-04-03] MEDS ORDERED: MAGNESIUM CITRATE 300 ML BTL PO NR (12:10)
--- NOTE | 2018-04-03 13:27 | CONSULTATION REPORT ---
DATE OF SERVICE: 04/03/2018 REFERRING PHYSICIAN: Zenia Dotson MD PRIMARY CARE PHYSICIAN: Ba Cortez DO IMPRESSION: 1. A 77-year-old female who is a intermediate resident admitted to the hospital with mental status changes and history of fall. 2. Worsening anemia, rule out bleeding. 3. Longstanding thrombocytopenia, which is stable. 4. Recent diagnosis of atrial fibrillation, status post pacemaker insertion as well as anticoagulation. RECOMMENDATIONS: 1. Agree with packed red blood cell transfusion to maintain hemoglobin more than 8 grams per deciliter because of her age and mental status changes. 2. Avoid Eliquis, heparin products and other anticoagulation until acute bleeding is ruled out. 3. Agree with the surgical consultation for evaluation of GI tract. 4. Continue rest of the care as you are providing. 5. We will follow the patient with you. HISTORY OF PRESENT ILLNESS: The patient is a 77-year-old female who is a intermediate resident. She had a fall at the intermediate with mental status changes and was brought to the emergency room. She was admitted to the hospital for further evaluation. During her hospital stay within the past 24 hours, her hemoglobin level has been dropping. Because of this, hematology consultation was requested. PAST MEDICAL HISTORY: Significant for hypertension, hypercholesterolemia, diabetes mellitus type 2, osteoarthritis, history of DVT requiring IVC filter placement, recent probable CVAs, atrial fibrillation, pacemaker insertion. PAST SURGICAL HISTORY: Other surgeries include bilateral total knee replacement, left shoulder surgery, left heel spur removal, [place] filter placement, pacemaker placement. SOCIAL HISTORY: The patient is and lives at an assisted care facility. Son lives in [place], [place] and daughter lives in [place], [place]. No history of tobacco use, but has exposure to secondhand smoke as both her parents and her smoked. No alcohol or other recreational drug use. FAMILY HISTORY: Unremarkable except father had IN while in his mid 60s. Mother with CVA in her late 60s. PHYSICAL EXAMINATION: GENERAL: Today showed an elderly female, obese, awake, but not completely oriented, does not appear in any acute distress. VITAL SIGNS: Temperature was 96.7, pulse rate 79, respirations 25, blood pressure 105/40, oxygen saturation 96% on room air. HEENT: Normocephalic. Extraocular muscles intact. Conjunctivae pale. Oral mucosa slightly dry. NECK: Supple with no JVD. CHEST: Showed pacemaker present. LUNGS: With slightly diminished breath sounds bilaterally and sounds were distant. No wheezes or rales heard. CARDIOVASCULAR: Regular in rate and rhythm. No murmurs or gallops heard. ABDOMEN: Obese, soft, nontender with no hepatosplenomegaly or other masses palpable. EXTREMITIES: Showed trace edema. NEUROLOGIC: Showed no focal motor deficits. The patient is moving all 4 extremities. Overall, motor strength was 4/5. LABORATORY DATA: CBC done today morning showed WBC 7.0, hemoglobin 6.8, MCV 91, platelet count 93,000 with neutrophil count 4.8 and lymphocyte count 1.1. Review of her previous lab work showed platelet count around 100,000 range as baseline with few low readings going back up to 2009. Hemoglobin has been in the 10 grams per deciliter range until 03/31/2018. Chemistry panel done today showed relatively normal electrolytes. BUN was 28 and creatinine 0.73 with GFR more than 60 mL per minute. Nonfasting glucose was 123. Magnesium was below normal at 1.3. Liver function studies were normal except albumin level of 2.2. Protime was elevated at 25.6 with INR of 2.3 and PTT 43. D-dimer was elevated at 10.24. Urinalysis showed nitrite positive and leukocyte esterase 2+, urine WBC 25 to 50 and few bacteria. Cultures are pending. CT scan of the head done at the time of admission showed no acute intracranial abnormality. No evidence of mass or intracranial hemorrhage. Chronic small vessel ischemic changes in the deep white matter. Chest x-ray at the time of admission showed borderline cardiac silhouette with probable mild vascular congestion. Thank you for allowing me to participate in this patient's care. I will follow the patient with you and make appropriate recommendations. Job ID: [id number] DocumentID: [id number] Dictated Date: 04/03/2018 12:09:27 Rocket Engine Mechanic Date: 04/03/2018 13:26:27 Dictated By: DUY NGUYEN MD [facility]OSPITALJalen
[2018-04-03] MEDS: NOREPINEPHRINE 4 MG in NS (IVPB) 250 ML IV SCH ×2 (15:41→22:51)
[2018-04-03] MEDS: LACTATED RINGERS 1,000 ML IV SCH (17:33)
[2018-04-03 18:45] LABS: HEMOGLOBIN 7.8 G/DL (11.5-16.0)
[2018-04-03] MEDS: ATORVASTATIN 40 MG (LIPITOR) TABLET PO SCH (20:01)
[2018-04-04] VITALS (24 sets, daily range): BP systolic 87–134; BP diastolic 32–84
[2018-04-04] MEDS: LACTATED RINGERS 1,000 ML IV SCH ×4 (00:18→17:24)
[2018-04-04 03:58] LABS: BASOPHILS % (AUTO) 1 % (0-10); EOSINOPHILS # (AUTO) 0.4 10^3/uL (0.0-0.3); EOSINOPHILS % (AUTO) 6 % (0-10); HEMATOCRIT 23 % (35-52); LYMPHOCYTES # (AUTO) 1.1 X 10^3 (1.0-4.0); LYMPHOCYTES % (AUTO) 20 % (12-44); MEAN CORPUSCULAR HEMOGLOBIN 30 PG (25-34); MEAN CORPUSCULAR HGB CONC 34 G/DL (32-36); MEAN CORPUSCULAR VOLUME 87 FL (80-99); MEAN PLATELET VOLUME 10.5 FL (7.4-10.4); MONOCYTES # (AUTO) 0.5 X 10^3 (0.0-1.0); MONOCYTES % (AUTO) 10 % (0-12); NEUTROPHILS # (AUTO) 3.6 X 10^3 (1.8-7.8); NEUTROPHILS % (AUTO) 63 % (42-75); PLATELET COUNT 90 10^3/uL (130-400); RED BLOOD COUNT 2.67 10^6/uL (4.35-5.85); RED CELL DISTRIBUTION WIDTH 15.9 % (10.0-14.5); WHITE BLOOD COUNT 5.6 10^3/uL (4.3-11.0)
[2018-04-04 04:18] LABS: ALANINE AMINOTRANSFERASE 20 U/L (0-55); ALBUMIN 2.2 GM/DL (3.2-4.5); ALKALINE PHOSPHATASE 58 U/L (40-136); BILIRUBIN,TOTAL 1.3 MG/DL (0.1-1.0); BUN/CREATININE RATIO 41; CALCIUM 7.7 MG/DL (8.5-10.1); CARBON DIOXIDE 23 MMOL/L (21-32); CHLORIDE 113 MMOL/L (98-107); CREATININE SERUM 0.63 MG/DL (0.60-1.30); GFR ESTIMATED > 60; GLUCOSE 122 MG/DL (70-105); POTASSIUM 4.2 MMOL/L (3.6-5.0); SODIUM 142 MMOL/L (135-145); TOTAL PROTEIN 4.3 GM/DL (6.4-8.2)
[2018-04-04] MEDS: PANTOPRAZOLE 40 MG (PROTONIX) TAB PO SCH (06:26)
[2018-04-04] MEDS: cefTRIAXone 1 GM/NS 50 ML IVPB IV SCH ×2 (06:26)
--- NOTE | 2018-04-04 10:02 | Progress Note (SOAP) ---
Subjective Date Seen by Provider: Apr 04, 2018 Time Seen by Provider: 10:00 Subjective/Events-last exam doing ok. mental status unchanged. awake and alert. no signs of clinical bleed. Focused Exam Lactate Level 04/02/18 03:57: Lactic Acid Level 3.61*H 04/02/18 06:45: Lactic Acid Level 2.46*H 04/02/18 17:08: Lactic Acid Level 1.31 Objective Exam Vital Signs Date Time Temp Pulse Resp B/P (MAP) Pulse Ox O2 Delivery O2 Flow Rate FiO2 04/04/18 09:00 73 11 96/58 (71) 99 Room Air 04/04/18 08:00 Room Air 04/04/18 08:00 96.7 04/04/18 08:00 70 18 103/57 (72) 100 Room Air 04/04/18 07:06 66 04/04/18 07:00 70 23 99/54 (69) 98 Room Air 04/04/18 06:00 68 27 87/32 (50) 97 Room Air 04/04/18 05:00 66 15 117/79 (92) 95 Room Air 04/04/18 04:00 96.7 04/04/18 04:00 66 22 87/50 (62) 97 Room Air 04/04/18 04:00 97 Room Air 04/04/18 03:00 67 15 99/51 (67) 97 Room Air 04/04/18 02:00 66 17 97/46 (63) 96 Room Air 04/04/18 01:00 61 04/04/18 01:00 61 12 87/36 (53) 92 Room Air 04/04/18 00:00 97 Room Air 04/04/18 00:00 69 18 92/43 (59) 97 Room Air 04/04/18 00:00 98.9 04/03/18 23:00 72 14 92/39 (56) 97 Room Air 04/03/18 22:00 68 13 92/51 (65) 97 Room Air 04/03/18 21:00 74 16 90/44 (59) 98 Room Air 04/03/18 20:00 97 Room Air 04/03/18 20:00 99.0 63 13 102/57 (72) 98 Room Air 04/03/18 19:00 71 14 95/61 (72) 98 Room Air 04/03/18 19:00 71 04/03/18 18:00 73 18 97/58 (71) 98 Room Air 04/03/18 17:00 85 16 104/61 (75) 96 Room Air 04/03/18 17:00 97.6 104 17 104/67 98 Room Air 04/03/18 16:20 97 Room Air 04/03/18 16:00 82 12 118/63 (81) 99 Room Air 04/03/18 15:00 79 27 113/67 (82) 99 Room Air 04/03/18 14:45 98.6 78 18 118/63 97 Room Air 04/03/18 14:29 97.4 73 14 138/59 99 Room Air 04/03/18 14:00 71 15 138/59 (85) 100 Room Air 04/03/18 13:05 97.6 70 17 123/59 99 Room Air 04/03/18 13:00 71 04/03/18 13:00 69 16 132/59 (83) 99 Room Air 04/03/18 12:50 97 Room Air 04/03/18 12:00 70 14 118/49 (72) 98 Room Air 04/03/18 11:00 78 15 105/40 (61) 97 Room Air 04/03/18 11:00 96.7 79 25 105/40 96 04/03/18 10:40 97.0 92 20 118/67 99 Room Air I & O 04/04/18 07:00 Intake Total 2350 ml Output Total 595 ml Balance 1755 ml Capillary Refill : Less Than 3 Seconds General Appearance: No Apparent Distress HEENT: PERRL/EOMI Neck: Full Range of Motion Respiratory: Chest Non Tender, Normal Breath Sounds Cardiovascular: Regular Rate, Rhythm Gastrointestinal: normal bowel sounds, non tender, soft Extremity: Normal Capillary Refill Neurologic/Psychiatric: Alert Skin: Normal Color Lymphatic: No Adenopathy Results Lab Laboratory Tests 04/03/18 14:08: Glucometer 132H 04/03/18 17:20: Stool Occult Blood Immunoassay POSITIVEH 04/03/18 17:34: Glucometer 157H 04/03/18 18:39: Hemoglobin 7.8L, Hematocrit 24L 04/04/18 03:45: White Blood Count 5.6, Red Blood Count 2.67L, Hemoglobin 8.0L, Hematocrit 23L, Mean Corpuscular Volume 87, Mean Corpuscular Hemoglobin 30, Mean Corpuscular Hemoglobin Concent 34, Red Cell Distribution Width 15.9H, Platelet Count 90L, Mean Platelet Volume 10.5H, Neutrophils (%) (Auto) 63, Lymphocytes (%) (Auto) 20 , Monocytes (%) (Auto) 10, Eosinophils (%) (Auto) 6, Basophils (%) (Auto) 1, Neutrophils # (Auto) 3.6, Lymphocytes # (Auto) 1.1, Monocytes # (Auto) 0.5, Eosinophils # (Auto) 0.4H, Basophils # (Auto) 0.0, Sodium Level 142, Potassium Level 4.2, Chloride Level 113H, Carbon Dioxide Level 23, Anion Gap 6, Blood Urea Nitrogen 26H, Creatinine 0.63, Estimat Glomerular Filtration Rate > 60, BUN /Creatinine Ratio 41, Glucose Level 122H, Calcium Level 7.7L, Total Bilirubin 1.3H, Aspartate Amino Transf (AST/SGOT) 21, Alanine Aminotransferase (ALT/SGPT) 20, Alkaline Phosphatase 58, Total Protein 4.3L, Albumin 2.2L Microbiology 04/02/18 Blood Culture - Preliminary, Resulted No growth 04/02/18 Urine Culture - Final, Complete See Comments Sent To Rml Assessment/Plan Assessment/Plan Assess & Plan/Chief Complaint anemia with heme positive stools and hx GERD. will proceed with EGD and Colonoscopy in am. Clinical Quality Measures DVT/VTE Risk/Contraindication: Risk Factor Score Per Nursin RFS Level Per Nursing on Admit: 4+=Very High Contraindications-Pharm: Other *list below* KORY LACY MD Apr 04, 2018 10:02
--- NOTE | 2018-04-04 10:03 | Conscious Sedation/ASA ---
Conscious Sedation Pre-Proced Time Reviewed: 10:00 ASA Class: 3 Airway Mallampati Classification: ([place] mcdermitt appropriate class) I. II. III, IV Lungs Heart ASA score ASA 1: a normal healthy patient ASA 2: a patient with a mild systemic disease (mid diabetes, controlled hypertension, obesity ASA 3: a patient with a severe systemic disease that limits activity (angina , COPD, prior Myocardial infarction) ASA 4: a patient with an incapacitating disease that is a constant threat to life (CHF, renal failure) ASA 5: a moribund patient not expected to survive 24 hrs. (ruptured aneurysm) ASA 6: a declared brain patient whose organs are being harvested. For emergent operations, add the letter E after the classification Grade 2 Sedation Plan: Analgesia, Amnesia, Plan communicated to team members, Discussed options with patient/fam, Discussed risks with patient/fam Note The patient is an appropriate candidate to undergo the planned procedure, sedation, and anesthesia. The patient immediately re-assessed prior to indication. KORY LACY MD Apr 04, 2018 10:03
--- NOTE | 2018-04-04 10:04 | Progress Note-Pre Operative ---
Pre-Operative Progress Note H&P Reviewed The H&P was reviewed, patient examined and no changes noted. Date Seen by Provider: Apr 04, 2018 Time Seen by Provider: 10:00 Date H&P Reviewed: Apr 04, 2018 Time H&P Reviewed: 10:00 Pre-Operative Diagnosis: symptomatic anemia KORY LACY MD Apr 04, 2018 10:04
[2018-04-04] MEDS: NOREPINEPHRINE 4 MG in NS (IVPB) 250 ML IV SCH (11:57)
--- NOTE | 2018-04-04 12:09 | Progress Note-Standard ---
Standard Progress Note Progress Notes/Assess & Plan Date Seen by Provider: Apr 04, 2018 Time Seen by Provider: 12:05 Progress/Assessment & Plan 77-year-old female admitted with history of fall, mental status changes and fatigue. Found to be significantly anemic and required PRBC transfusion. Feels better today and awake and oriented. Answering questions appropriately. Blood pressure below normal. Increased edema with IV hydration. Albumin very low probably causing third spacing of fluid. Stool occult blood positive. Currently off all anticoagulation. Hemoglobin level is stable overnight. Scheduled for EGD and colonoscopy tomorrow a.m. I will obtain serum iron studies tomorrow. Will follow patient with you. Focused Exam Lactate Level 04/02/18 03:57: Lactic Acid Level 3.61*H 04/02/18 06:45: Lactic Acid Level 2.46*H 04/02/18 17:08: Lactic Acid Level 1.31 DUY NGUYEN Apr 04, 2018 12:09
[2018-04-04] MEDS ORDERED: ALBUMIN 25% 25 GM/100 ML 100 ML IV ONE (12:45)
--- NOTE | 2018-04-04 12:52 | Progress Note-Hospitalist ---
Subjective HPI/CC On Admission Date Seen by Provider: Apr 04, 2018 Time Seen by Provider: 12:40 Per staff patient is little more alert this morning. Expressive aphasia reportedly chronic does make communication difficult. Her daughter was present at the bedside and felt she was doing much better than she was at the long term prior to admission. She appears to be in no acute distress can answer in 1 or 2 word answers and denies shortness of breath chest pain nausea or abdominal pain. Subjective/Events-last exam Patient resting comfortably no reported shortness of breath at rest still extremely weak. Nursing staff report on bowel prep patient is having hodges stools. She was Hemoccult positive however with Dr. JONAS planning panendoscopy tomorrow. No pain reported no indigestion reported Focused Exam Lactate Level 04/02/18 03:57: Lactic Acid Level 3.61*H 04/02/18 06:45: Lactic Acid Level 2.46*H 04/02/18 17:08: Lactic Acid Level 1.31 Objective Exam Vital Signs Vital Signs Date Time Temp Pulse Resp B/P (MAP) Pulse Ox O2 Delivery O2 Flow Rate FiO2 04/04/18 12:00 96.5 67 12 104/72 (83) 99 Room Air 04/02/18 06:57 21 Capillary Refill : Less Than 3 Seconds General Appearance: No Apparent Distress, Chronically ill, Obese Respiratory: Normal Breath Sounds (Anteriorly), No Accessory Muscle Use, No Respiratory Distress Cardiovascular: No Gallop, No JVD, Irregularly Irregular Gastrointestinal: Normal Bowel Sounds, No Organomegaly, No Pulsatile Mass, Non Tender, Soft Extremity: Swelling (2+ bilateral edema to the knees without erythema or tenderness. Chronic Achilles contracture no ulcerations or erythema noted.) Neurologic/Psychiatric: Alert, Depressed Affect Results/Procedures Lab Laboratory Tests 04/03/18 18:39 04/04/18 03:45 Patient resulted labs reviewed. Assessment/Plan Assessment and Plan Assess & Plan/Chief Complaint Near Syncope, history of syncope with recent pacemaker implant, significant drop in H&H. I will transfuse 2 units of packed RBCs, consult Dr. Clifton, consult Dr. Jonas. Continue to hold Eliquis Sick sinus syndrome with history of syncope, status post pacemaker implant, site is healing well UTI, sepsis, started on Rocephin, managed by medical team, was on Clindamycin as an outpatient Anemia, mild thrombocytopenia, seen previously by Dr Clifton, significant drop in H& H over the past 24 hours. Did not receive Eliquis since arrival to the hospital , continue to hold it, transfuse 2 units of packed RBCs and initiate workup for GI loss as described above Paroxysmal atrial fibrillation, currently in sinus rhythm with APCs and VPCs, monitor blood pressure and heart rate History of CVA with subsequent dysphasia, worse on 03-17-18, but has improved, mild slurred Speech noted Echo of 03/18/18: LVEF 55-60%, AoV sclerosis w/o stenosis, PASP 30 mmHg No angiographically significant coronary artery disease, normal global left ventricular systolic function with an ejection fraction of approximately 60 to 65%, elevated left ventricular end-diastolic pressure indicative of some degree of diastolic dysfunction of the left ventricle, and no significant mitral regurgitation per cardiac catheterization from 01/06/12 Considering hypotension and increased BUN/creatinine ratio in a woman of low muscle mass without evidence for pulmonary edema and significant albumin decrease I would favor intravascular volume depletion and secondary hypotension with presyncope favored over sepsis from urinary tract infection. Urine output still marginal patient third spacing likely due to malnutrition with low albumin. There was improvement yesterday with little over 600 mL of urine output and thus far she is on track for about that amount today however there is significant weight gain due to third spacing. Will add albumin 25 g now and then twice a day for another 3 doses. Urine tract infection continue antibiotics doubt sepsis. Anemia while stools are occult positive there is no evidence for active bleeding at this time with no melena or bright red blood per rectum on initiation of bowel prep for panendoscopy for Dr. JONAS tomorrow. Patient received 2 units of packed cells hemoglobin up slightly to 8 g this a.m. no evidence for hemodynamic instability. Paroxysmal afibrillation patient currently in sinus rhythm continue to hold anticoagulant therapy due to concerns over GI bleed contributor to anemia. Complex medical management. Critical Care Critical Care: Critically Ill Patient Clinical Quality Measures DVT/VTE Risk/Contraindication: Risk Factor Score Per Nursin RFS Level Per Nursing on Admit: 4+=Very High Contraindications-Pharm: Other *list below* MILI SIMONS MD Apr 04, 2018 12:52
[2018-04-04] MEDS ORDERED: MAGNESIUM CITRATE 300 ML BTL PO ONE (14:00)
--- NOTE | 2018-04-04 17:44 | Progress Note-Pre Operative ---
Pre-Operative Progress Note H&P Reviewed The H&P was reviewed, patient examined and no changes noted. Date Seen by Provider: Apr 04, 2018 Time Seen by Provider: 17:00 Date H&P Reviewed: Apr 04, 2018 Time H&P Reviewed: 17:00 Pre-Operative Diagnosis: symptomatic anemia, poor periperal venous circulation KORY LACY MD Apr 04, 2018 5:44 pm
[2018-04-04] MEDS: ATORVASTATIN 40 MG (LIPITOR) TABLET PO SCH (20:20)
[2018-04-04] MEDS: ALBUMIN 25% 25 GM/100 ML 100 ML IV SCH (20:21)
[2018-04-05] VITALS (22 sets, daily range): BP systolic 96–129; BP diastolic 36–87
[2018-04-05] MEDS: NOREPINEPHRINE 4 MG in NS (IVPB) 250 ML IV SCH ×2 (01:47→14:40)
[2018-04-05] MEDS: LACTATED RINGERS 1,000 ML IV SCH ×4 (02:20→23:30)
[2018-04-05] MEDS: POTASSIUM CL 10MEQ/50ML IVPB 50 ML IV SCH (02:22)
[2018-04-05] MEDS: MAGNESIUM 1 GM/100 ML IVPB 100 ML IV SCH (02:22)
[2018-04-05] MEDS: cefTRIAXone 1 GM/NS 50 ML IVPB IV SCH ×2 (02:22)
[2018-04-05] MEDS: KCL 20 MEQ TAB (K-DUR) PO SCH (02:23)
[2018-04-05] MEDS: PANTOPRAZOLE 40 MG (PROTONIX) TAB PO SCH (02:23)
[2018-04-05 04:26] LABS: BASOPHILS % (AUTO) 1 % (0-10); EOSINOPHILS # (AUTO) 0.4 10^3/uL (0.0-0.3); EOSINOPHILS % (AUTO) 10 % (0-10); HEMATOCRIT 26 % (35-52); HEMOGLOBIN 8.7 G/DL (11.5-16.0); LYMPHOCYTES # (AUTO) 0.9 X 10^3 (1.0-4.0); LYMPHOCYTES % (AUTO) 20 % (12-44); MEAN CORPUSCULAR HEMOGLOBIN 30 PG (25-34); MEAN CORPUSCULAR HGB CONC 34 G/DL (32-36); MEAN CORPUSCULAR VOLUME 89 FL (80-99); MEAN PLATELET VOLUME 10.7 FL (7.4-10.4); MONOCYTES # (AUTO) 0.4 X 10^3 (0.0-1.0); MONOCYTES % (AUTO) 10 % (0-12); NEUTROPHILS # (AUTO) 2.5 X 10^3 (1.8-7.8); NEUTROPHILS % (AUTO) 60 % (42-75); PLATELET COUNT 72 10^3/uL (130-400); RED BLOOD COUNT 2.89 10^6/uL (4.35-5.85); RED CELL DISTRIBUTION WIDTH 15.9 % (10.0-14.5); WHITE BLOOD COUNT 4.2 10^3/uL (4.3-11.0)
[2018-04-05 04:45] LABS: ALANINE AMINOTRANSFERASE 17 U/L (0-55); ALBUMIN 2.5 GM/DL (3.2-4.5); ALKALINE PHOSPHATASE 55 U/L (40-136); BUN/CREATININE RATIO 35; CALCIUM 8.3 MG/DL (8.5-10.1); CARBON DIOXIDE 23 MMOL/L (21-32); CHLORIDE 115 MMOL/L (98-107); CREATININE SERUM 0.57 MG/DL (0.60-1.30); GFR ESTIMATED > 60; GLUCOSE 98 MG/DL (70-105); POTASSIUM 4.6 MMOL/L (3.6-5.0); SODIUM 145 MMOL/L (135-145); TOTAL PROTEIN 4.7 GM/DL (6.4-8.2)
[2018-04-05 04:48] LABS: MAGNESIUM 1.6 MG/DL (1.8-2.4); PHOSPHORUS 2.6 MG/DL (2.3-4.7)
[2018-04-05] MEDS ORDERED: LACTATED RINGERS 1,000 ML IV PRN (07:45)
--- NOTE | 2018-04-05 08:00 | Progress Note (SOAP) ---
Subjective Time Seen by Provider: 07:50 Subjective/Events-last exam Patient coherent today. 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 Patient realizes she's can have an EGD and colonoscopy today. Patient alert Focused Exam Lactate Level 04/02/18 17:08: Lactic Acid Level 1.31 Objective Exam Vital Signs Date Time Temp Pulse Resp B/P (MAP) Pulse Ox O2 Delivery O2 Flow Rate FiO2 04/05/18 06:00 71 22 110/62 (78) 99 Room Air 04/05/18 05:00 70 14 122/64 (83) 97 Room Air 04/05/18 04:00 99 Room Air 04/05/18 04:00 70 16 114/54 (74) 99 Room Air 04/05/18 03:55 97.1 04/05/18 03:00 66 12 110/37 (61) 97 Room Air 04/05/18 02:00 69 17 112/50 (70) 98 Room Air 04/05/18 01:00 82 04/05/18 01:00 82 22 109/36 (60) 96 Room Air 04/05/18 00:00 73 14 112/67 (82) 99 Room Air 04/04/18 23:50 100 Room Air 04/04/18 23:50 97.9 04/04/18 23:00 77 24 103/67 (79) 98 Room Air 04/04/18 22:00 72 16 111/55 (73) 99 Room Air 04/04/18 21:00 69 31 107/57 (74) 100 Room Air 04/04/18 20:10 98.2 Room Air 04/04/18 20:00 95 Room Air 04/04/18 20:00 67 30 110/75 (87) 98 Room Air 04/04/18 19:00 66 04/04/18 19:00 66 33 114/56 (75) 99 Room Air 04/04/18 18:42 95 Room Air 04/04/18 18:00 65 10 113/59 (77) 100 Room Air 04/04/18 17:00 68 17 134/55 (81) 99 Room Air 04/04/18 16:18 97.6 04/04/18 16:00 75 20 115/63 (80) 97 Room Air 04/04/18 16:00 Room Air 04/04/18 15:00 66 18 116/62 (80) 100 Room Air 04/04/18 14:00 65 13 120/57 (78) 99 Room Air 04/04/18 13:01 65 04/04/18 13:00 68 18 104/84 (91) 99 Room Air 04/04/18 12:00 96.5 67 12 104/72 (83) 99 Room Air 04/04/18 12:00 Room Air 04/04/18 11:00 69 14 100/66 (77) 99 Room Air 04/04/18 10:00 72 16 104/75 (85) 99 Room Air 04/04/18 09:00 73 11 96/58 (71) 99 Room Air 04/04/18 08:00 Room Air 04/04/18 08:00 96.7 04/04/18 08:00 70 18 103/57 (72) 100 Room Air I & O 04/05/18 07:00 Intake Total 2680 ml Output Total 2087 ml Balance 593 ml Capillary Refill : Less Than 3 Seconds General Appearance: No Apparent Distress, WD/WN HEENT: Normal ENT Inspection Neck: Full Range of Motion, Normal Inspection Respiratory: Lungs Clear, No Accessory Muscle Use, No Respiratory Distress Cardiovascular: Regular Rate, Rhythm Gastrointestinal: non tender, soft Results Lab Laboratory Tests 04/05/18 04:15 Laboratory Tests 04/04/18 12:10: Glucometer 133H 04/04/18 17:23: Glucometer 108 04/04/18 21:29: Glucometer 103 04/05/18 04:15: White Blood Count 4.2L, Red Blood Count 2.89L, Hemoglobin 8.7L, Hematocrit 26L, Mean Corpuscular Volume 89, Mean Corpuscular Hemoglobin 30, Mean Corpuscular Hemoglobin Concent 34, Red Cell Distribution Width 15.9H, Platelet Count 72L, Mean Platelet Volume 10.7H, Neutrophils (%) (Auto) 60, Lymphocytes (%) (Auto) 20 , Monocytes (%) (Auto) 10, Eosinophils (%) (Auto) 10, Basophils (%) (Auto) 1, Neutrophils # (Auto) 2.5, Lymphocytes # (Auto) 0.9L, Monocytes # (Auto) 0.4, Eosinophils # (Auto) 0.4H, Basophils # (Auto) 0.0, Sodium Level 145, Potassium Level 4.6, Chloride Level 115H, Carbon Dioxide Level 23, Anion Gap 7, Blood Urea Nitrogen 20H, Creatinine 0.57L, Estimat Glomerular Filtration Rate > 60, BUN/Creatinine Ratio 35, Glucose Level 98, Calcium Level 8.3L, Phosphorus Level 2.6, Magnesium Level 1.6L, Total Bilirubin 2.0H, Aspartate Amino Transf (AST/ SGOT) 21, Alanine Aminotransferase (ALT/SGPT) 17, Alkaline Phosphatase 55, Total Protein 4.7L, Albumin 2.5L Microbiology 04/02/18 Blood Culture - Preliminary, Resulted No growth 04/02/18 Urine Culture - Final, Complete See Comments Sent To [facility] Assessment/Plan Assessment/Plan Assess & Plan/Chief Complaint Patient doing better. Patient had EGD and colonoscopy today. Anemia. Recent pacemaker insertion due to atrial fibrillation. Diabetes. Dysphagia. Dysarthria. Occult blood of the stools positive Clinical Quality Measures Admission Status Admission Dx Acute mental status change. Diabetes. fall. Hyperlipidemia. History of hypertension. Sepsis improving. Patient not a candidate for high-dose fluids. Recent pacemaker dual-chamber inserted. Anemia DVT/VTE Risk/Contraindication: Risk Factor Score Per Nursin RFS Level Per Nursing on Admit: 4+=Very High Contraindications-Pharm: Other *list below* ADEN LEE DO Apr 05, 2018 08:00
[2018-04-05] MEDS ORDERED: LIDOCAINE/EPI 1%-1:200,000 (XYLOCAINE) 10 ML VIAL ONE (09:05)
--- NOTE | 2018-04-05 09:15 | Diagnostic Imaging Report ---
INDICATION: Sepsis, urinary tract infection. TECHNIQUE: Single view chest at 4:14 AM. CORRELATION STUDY: 04/02/2018. FINDINGS: A left-sided multichamber pacemaker is present. The heart size is stable. The vasculature appears overall slightly increased from the prior study. No definitive consolidating infiltrate. No effusion. Prior surgical changes of the left shoulder. IMPRESSION: The heart size is stable with the vasculature appearing slightly increased from the prior study. Dictated by: Dictated on workstation # [id number]
[2018-04-05] MEDS ORDERED: HEParin (CENTRAL IV FLUSH) 500 UNIT/5 ML SYR ONE (09:21)
[2018-04-05] MEDS: ALBUMIN 25% 25 GM/100 ML 100 ML IV SCH ×2 (09:26→22:28)
[2018-04-05] MEDS ORDERED: LIDOCAINE PF 2% 5 ML (XYLOCAINE) VIAL ONE (11:47)
[2018-04-05] MEDS ORDERED: MIDAZOLAM 2 MG/2 ML (VERSED) VIAL ONE (12:17)
[2018-04-05] MEDS ORDERED: KETAMINE HCL 100 MG/ML 5 ML VIAL ONE (12:41)
[2018-04-05] MEDS ORDERED: PROPOFOL INJECTION 50 ML IV ONE ×2 (13:31→13:41)
--- NOTE | 2018-04-05 13:57 | Progress Note-Post Operative ---
Post-Operative Progess Note Surgeon (s)/Behavioral Health Associate (s) Surgeon KORY LACY MD Behavioral Health Associate: NONE Pre-Operative Diagnosis symptomatic anemia, poor periperal venous circulation Post-Operative Diagnosis poor peripheral venous circulation, reflux esophagitis(stage 3), distal esophageal ulceration with white plaque, small HH(2cm), mild gastritis. chronic stage 2 ext and int hemorrhoids, mild sigmoid diverticulosis. Procedure & Operative Findings Date of Procedure 04/05/18 Procedure Performed/Findings placement right groshong implantable catheter under flouroscopy. EGD with bx. Colonoscopy. Anesthesia Type MAC Estimated Blood Loss Estimated blood loss (mL): minimal Specimens/Packing Specimens Removed distal esophageal ulcer, GE jxn, antrum. KORY LACY MD Apr 05, 2018 1:57 pm
[2018-04-05] MEDS ORDERED: MEPERIDINE (DEMEROL) INJ 50 MG/ML IVP PRN (14:00)
[2018-04-05] MEDS ORDERED: ONDANSETRON 4 MG/2 ML (SDV) Z0FRAN IVP PRN (14:00)
[2018-04-05] MEDS ORDERED: FLUCONAZOLE 200 MG/100 ML 100 ML IV NR (14:00)
[2018-04-05] MEDS ORDERED: morphine INJ 10 MG/ML 1ML (SYR OR VIAL) IVP PRN (14:00)
--- NOTE | 2018-04-05 14:17 | Diagnostic Imaging Report ---
INDICATION: Undergoing line placement. TECHNIQUE: Two intraprocedural images upper chest, 1:05 PM. CORRELATION STUDY: None FINDINGS: Fluoroscopy utilized by Dr. Jonas during placement of a central line. Evaluation for line placement is limited on this fluoroscopic evaluation, largely obscured by left-sided pacemaker leads. Tip however appears to be near the expected location of the SVC. Fluoroscopy time: 1 minute 19 seconds. IMPRESSION: 1. Fluoroscopy utilized during placement of a central line. Line positioning somewhat indeterminate. If further assessment is desired, post procedure chest radiograph recommended. Dictated by: Dictated on workstation # [id number]
--- NOTE | 2018-04-05 14:36 | Diagnostic Imaging Report ---
INDICATION: Post catheter placement. TECHNIQUE: Single view chest 2:09 PM. CORRELATION STUDY: 04/05/2018 FINDINGS: Left-sided dual-chamber pacemaker is present. Heart size enlarged. Vascular overall relatively normal on followup. Chronic type change about the lung parenchyma. No infiltrate. Since the prior study, a right subclavian chest port catheter in place tip projects over the SVC, somewhat obscured by the pacemaker leads. IMPRESSION: 1. Right-sided [id number]-m-[id number] catheter has been placed tip projected over the SVC. No pneumothorax. Dictated by: Dictated on workstation # [id number]
--- NOTE | 2018-04-05 15:51 | Cardiology Progress Note ---
Cardiology SOAP Progress Note Objective: I&O/Vital Signs 04/05/18 04/05/18 04/05/18 04/05/18 03:55 04:00 04:00 05:00 Temp 97.1 Pulse 70 70 Resp 16 14 B/P (MAP) 114/54 (74) 122/64 (83) Pulse Ox 99 99 97 O2 Delivery Room Air Room Air Room Air 04/05/18 04/05/18 04/05/18 04/05/18 06:00 07:00 07:00 08:00 Pulse 71 73 72 78 Resp 22 17 14 B/P (MAP) 110/62 (78) 105/58 (74) 110/58 (75) Pulse Ox 99 98 99 O2 Delivery Room Air Room Air Room Air 04/05/18 04/05/18 04/05/18 04/05/18 08:41 09:00 09:00 10:00 Temp 97.7 Pulse 65 70 72 Resp 14 14 B/P (MAP) 96/55 (69) 108/64 (79) Pulse Ox 98 99 99 99 O2 Delivery Room Air Room Air Room Air FiO2 21 04/05/18 04/05/18 14:29 15:14 Temp 97.0 Pulse 72 Resp 17 B/P (MAP) 129/52 (77) Pulse Ox 98 99 O2 Delivery Room Air Room Air 04/05/18 00:00 Intake Total 1560 ml Output Total 1710 ml Balance -150 ml Weight (Pounds): 297 Weight (Ounces): 7.0 Weight (Calculated Kilograms): 134.217902 Results/Procedures: Labs Laboratory Tests 04/04/18 17:23: Glucometer 108 04/04/18 21:29: Glucometer 103 04/05/18 04:15: White Blood Count 4.2L, Red Blood Count 2.89L, Hemoglobin 8.7L, Hematocrit 26L, Mean Corpuscular Volume 89, Mean Corpuscular Hemoglobin 30, Mean Corpuscular Hemoglobin Concent 34, Red Cell Distribution Width 15.9H, Platelet Count 72L, Mean Platelet Volume 10.7H, Neutrophils (%) (Auto) 60, Lymphocytes (%) (Auto) 20 , Monocytes (%) (Auto) 10, Eosinophils (%) (Auto) 10, Basophils (%) (Auto) 1, Neutrophils # (Auto) 2.5, Lymphocytes # (Auto) 0.9L, Monocytes # (Auto) 0.4, Eosinophils # (Auto) 0.4H, Basophils # (Auto) 0.0, Sodium Level 145, Potassium Level 4.6, Chloride Level 115H, Carbon Dioxide Level 23, Anion Gap 7, Blood Urea Nitrogen 20H, Creatinine 0.57L, Estimat Glomerular Filtration Rate > 60, BUN/Creatinine Ratio 35, Glucose Level 98, Calcium Level 8.3L, Phosphorus Level 2.6, Magnesium Level 1.6L, Total Bilirubin 2.0H, Aspartate Amino Transf (AST/ SGOT) 21, Alanine Aminotransferase (ALT/SGPT) 17, Alkaline Phosphatase 55, Total Protein 4.7L, Albumin 2.5L 04/05/18 12:29: Lab Scanned Report Transfusion Reaction Form Microbiology 04/02/18 Blood Culture - Preliminary, Resulted No growth 04/02/18 Urine Culture - Final, Complete See Comments Sent To [facility] A/P: Assessment/Dx: Admission Diagnosis Sepsis UTI Sick sinus syndrome Change in mental status- improved Anemia Plan: Near Syncope, history of syncope with recent pacemaker implant, significant drop in H&H. Continue to hold Eliquis. Dr Jonas and Dr Clifton following. EGD/Colonoscopy: Results pending. Sick sinus syndrome with history of syncope, status post pacemaker implant, site is healing well UTI, sepsis, started on Rocephin, managed by medical team, was on Clindamycin as an outpatient Anemia, mild thrombocytopenia, seen previously by Dr Clifton, significant drop in H& H over the past 24 hours. Did not receive Eliquis since arrival to the hospital , continue to hold it, transfuse 2 units of packed RBCs and initiate workup for GI loss as described above Paroxysmal atrial fibrillation, currently in sinus rhythm with APCs and VPCs, monitor blood pressure and heart rate History of CVA with subsequent dysphasia, worse on 03-17-18, but has improved, mild slurred Speech noted Echo of 03/18/18: LVEF 55-60%, AoV sclerosis w/o stenosis, PASP 30 mmHg No angiographically significant coronary artery disease, normal global left ventricular systolic function with an ejection fraction of approximately 60 to 65%, elevated left ventricular end-diastolic pressure indicative of some degree of diastolic dysfunction of the left ventricle, and no significant mitral regurgitation per cardiac catheterization from 01/06/12 Maturity onset diabetes mellitus. Hypertension, restart home meds and monitor blood pressure response Chronic bilateral leg swelling, likely related to venous insufficiency. Hyperlipidemia, continue to monitor Chronic back pain and degenerative joint disease. Pulmonary artery systolic pressure is estimated to be approximately 40 mmHg per echocardiogram from 08/18/2013, which is unchanged from 2011 Thank you for your consultation. Please call me if you have any questions. Elgin Colvin MD, FACP, FACC, FSCAI, FHRS, CCDS Interventional Cardiology Cardiac Electrophysiology Vascular Medicine and Endovascular Interventions Focused Exam Lactate Level 04/02/18 17:08: Lactic Acid Level 1.31 [place] COLVIN MD Apr 05, 2018 3:51 pm
[2018-04-05] MEDS ORDERED: cefTRIAXone 1 GM/NS 50 ML IVPB IV SCH ×2 (16:00)
[2018-04-05] MEDS ORDERED: ACETAMINOPHEN 325 MG TABLET PO PRN (21:45)
[2018-04-05] MEDS: ATORVASTATIN 40 MG (LIPITOR) TABLET PO SCH (22:28)
[2018-04-06] VITALS (14 sets, daily range): BP systolic 98–194; BP diastolic 45–78
--- NOTE | 2018-04-06 00:06 | OPERATIVE REPORT ---
DATE OF SERVICE: 04/05/2018 ATTENDING PRIMARY CARE PHYSICIAN: Ba Cortez DO. PREOPERATIVE DIAGNOSES: Symptomatic anemia, poor peripheral venous circulation. POSTOPERATIVE DIAGNOSES: Poor peripheral venous circulation, distal esophageal ulcer with overlying white plaquish material, reflux esophagitis stage III, small hiatal hernia 2 cm in size, mild gastritis, chronic stage II external and internal hemorrhoids, mild sigmoid diverticulosis. PROCEDURE: Placement of right Groshong implantable catheter under fluoroscopy, EGD with biopsy and brushing, colonoscopy. SURGEON: Kory Lacy MD. ANESTHESIA: Monitored anesthesia care with local. ESTIMATED BLOOD LOSS: Minimal. FINDINGS: Catheter at superior vena cava/right atrial junction, distal esophageal ulceration with white plaquish material consistent with esophageal candidiasis, reflux esophagitis stage III with small hiatal hernia approximately 2 cm in size, mild gastritis, colonoscopy, chronic stage II external and internal hemorrhoids, not actively edematous nor inflamed and no bleeding, mild sigmoid diverticulosis with no signs of acute or chronic bleeding. The remainder of the colon was normal. There were no polyps or any neoplasms identified. DISPOSITION: The patient tolerated the procedure well. INDICATIONS: The patient is a 77-year-old female who is a resident of an assisted living facility. The day before admission, the patient reported that she got up to go to the bathroom early in the morning hours and after getting up, she felt severely lightheaded and fell to the floor which was witnessed. The EMS was called. When she was seen, she did have some confusion; however, did answer the majority of questions appropriately. She does have significant medical history including hypertension, hypercholesterolemia as well as diabetes. She was found to have a urinary tract infection and was admitted for urosepsis, dehydration as well as a vasovagal episode. Since being admitted, she was found to be anemic with worsening anemia on lab work with initial hemoglobin 8.6; however, this did decrease to 6.8. She has not had a colonoscopy done in the past. She does report some issues with gastroesophageal reflux disease. The patient also has very poor peripheral venous circulation. The only peripheral access that could be obtained was a cutaneous abdominal vein; however, this eventually thrombosed. Multiple attempts at PICC line as well as midlines were performed with no success. She will also need a Groshong implantable catheter for potential long-term IV access as well as blood draws. DESCRIPTION OF PROCEDURE: The patient was brought to the operating room, laid supine on the table. After adequate IV pain and sedative medications and initial conscious sedation under monitor with ketamine, the patient's chest and neck were prepped and draped in standard surgical fashion. A 1% lidocaine with epinephrine was used to anesthetize the overlying skin in the right subclavian region. The right subclavian vein was then accessed withdrawing of venous blood. The guidewire was then inserted under fluoroscopy. The cannulating needle removed and a small skin incision was made using a 15 blade. A tract was then created with a venous dilator and sheath over the guidewire. The dilator and guidewire were then removed and the catheter was then placed under fluoroscopy until the tip was at the superior vena cava - right atrial junction and then the sheath was removed. The catheter was then cut down to size and then port placed onto the catheter. The skin incision was then extended laterally and the chest reservoir was created between the subcutaneous fat and the pectoralis fascia using electrocautery as well as blunt dissection with visualization of good hemostasis. The port was then placed into the reservoir and sutured to the pectoralis fascia using interrupted 3-0 Vicryl sutures. Subcutaneous tissue was then reapproximated using 3-0 Vicryl interrupted sutures and the skin was closed using 4-0 Monocryl running subcuticular suture. Wound was then cleaned and covered with Dermabond. The port was accessed and venous blood drawn out and heparinized saline pushed in without any resistance. The patient was then placed under monitored anesthesia care and then the mouthpiece was applied. Endoscope was placed in the mouth, visualizing the pharynx and hypopharyngeal region. Vocal cords, epiglottis and vallecula identified and appeared to be normal. The endoscope was then gently intubated at the esophageal opening and esophagus insufflated. The endoscope was then advanced to the first, second and third portion of esophagus. At the distal esophagus above the GE junction, there was a whitish plaque and a small ulceration with overlying white plaque. This was consistent with a previous ulceration as well as potential esophageal candidiasis. A biopsy was taken in this region with forceps as well as brushings with visualization of good hemostasis. The endoscope was then advanced to the GE junction where reflux esophagitis stage III identified with early fibrotic changes; however, no stricture. A biopsy was taken of the GE junction with forceps with visualization of good hemostasis. The endoscope was then advanced into the stomach and endoscope retroflexed, visualizing a small hiatal hernia approximately 2 cm in size. There was a mild severity gastritis. There were no formal ulcers, polyps or any neoplasms. A biopsy was taken of the stomach antrum with forceps for H. pylori with visualization of good hemostasis. Endoscope was then advanced to the pylorus and the first and second portion of the duodenum which appeared normal with no distal obstructions. The patient tolerated this portion of the procedure well. We will have her continue with her Protonix and await the biopsy results; however, empirically start her on Diflucan 200 mg today and then 100 mg for a total of 14 days. Under the same anesthesia, we then proceeded with the colonoscopy portion of the procedure. The patient was placed in frog leg position and a digital rectal examination was performed, which revealed chronic stage II external and internal hemorrhoids, not actively edematous nor inflamed and no bleeding. Normal sphincter tone was felt and there were no palpable masses. The endoscope was then intubated to the anus and the rectum gently insufflated. The endoscope was then advanced through the valves of Patricio in the rectum with no polyps or any neoplasms identified. We then proceeded through the sigmoid colon where mild sigmoid diverticulosis identified. There were no mucosal inflammatory changes to indicate any active diverticulitis as well as no acute or chronic signs of bleeding. The endoscope was then advanced to the remainder of the descending, transverse and ascending colon to the cecum. These segments were normal. There were no polyps or any neoplasms identified as well as no bleeding sources identified. The endoscope was then slowly withdrawn with taking a second look and suctioning of residual air with no additional findings. The patient tolerated the procedure well. We will recommend medical management with high fiber diet with at least 25 to 30 grams of fiber per day as well as at least 64 fluid ounces of water daily to promote soft stools on a daily basis. We feel that the cause of her bleeding was the combination of her previous pacemaker implantation as well as anticoagulation with Eliquis combined with an upper gastrointestinal bleeding with the esophageal candidiasis and ulceration. When her hemoglobin is stable and there are no signs of blood loss anemia, she may resume her anticoagulation regimen. Job ID: [id number] DocumentID: [id number] Dictated Date: 04/05/2018 14:15:55 Telegraphic Typewriter Repairer Date: 04/06/2018 00:05:36 Dictated By: KORY LACY MD
[2018-04-06 05:01] LABS: BASOPHILS % (AUTO) 0 % (0-10); EOSINOPHILS # (AUTO) 0.3 10^3/uL (0.0-0.3); EOSINOPHILS % (AUTO) 8 % (0-10); HEMATOCRIT 24 % (35-52); HEMOGLOBIN 7.7 G/DL (11.5-16.0); LYMPHOCYTES # (AUTO) 0.6 X 10^3 (1.0-4.0); LYMPHOCYTES % (AUTO) 16 % (12-44); MEAN CORPUSCULAR HEMOGLOBIN 30 PG (25-34); MEAN CORPUSCULAR HGB CONC 32 G/DL (32-36); MEAN CORPUSCULAR VOLUME 92 FL (80-99); MEAN PLATELET VOLUME 9.9 FL (7.4-10.4); MONOCYTES # (AUTO) 0.4 X 10^3 (0.0-1.0); MONOCYTES % (AUTO) 11 % (0-12); NEUTROPHILS # (AUTO) 2.5 X 10^3 (1.8-7.8); NEUTROPHILS % (AUTO) 65 % (42-75); PLATELET COUNT 116 10^3/uL (130-400); RED BLOOD COUNT 2.61 10^6/uL (4.35-5.85); RED CELL DISTRIBUTION WIDTH 16.1 % (10.0-14.5); WHITE BLOOD COUNT 3.8 10^3/uL (4.3-11.0)
[2018-04-06 05:14] LABS: ALANINE AMINOTRANSFERASE 16 U/L (0-55); ALBUMIN 2.6 GM/DL (3.2-4.5); ALKALINE PHOSPHATASE 55 U/L (40-136); BUN/CREATININE RATIO 31; CALCIUM 8.1 MG/DL (8.5-10.1); CARBON DIOXIDE 26 MMOL/L (21-32); CHLORIDE 112 MMOL/L (98-107); CREATININE SERUM 0.61 MG/DL (0.60-1.30); GFR ESTIMATED > 60; GLUCOSE 135 MG/DL (70-105); MAGNESIUM 1.5 MG/DL (1.8-2.4); PHOSPHORUS 2.4 MG/DL (2.3-4.7); POTASSIUM 4.1 MMOL/L (3.6-5.0); SODIUM 143 MMOL/L (135-145); TOTAL PROTEIN 4.6 GM/DL (6.4-8.2)
[2018-04-06] MEDS: KCL 20 MEQ TAB (K-DUR) PO SCH (05:22)
[2018-04-06] MEDS: NOREPINEPHRINE 4 MG in NS (IVPB) 250 ML IV SCH (05:22)
[2018-04-06] MEDS: MAGNESIUM 1 GM/100 ML IVPB 100 ML IV SCH ×3 (05:22→11:53)
[2018-04-06] MEDS: POTASSIUM CL 10MEQ/50ML IVPB 50 ML IV SCH (05:22)
--- NOTE | 2018-04-06 07:57 | Progress Note (SOAP) ---
Subjective Time Seen by Provider: 07:50 Subjective/Events-last exam Patient doing good this morning. Patient had EGD and colonoscopy yesterday. Patient has reflux esophagitis stage III with Anabel area Distal esophageal ulceration with white plaque. Mild gastritis. Hemoglobin and hematocrit still coming down. Hemoglobin 7.7 hematocrit 24. Objective Exam Vital Signs Date Time Temp Pulse Resp B/P (MAP) Pulse Ox O2 Delivery O2 Flow Rate FiO2 04/06/18 06:00 75 14 98/48 (65) 95 Room Air 04/06/18 05:00 67 13 112/52 (72) 95 Room Air 04/06/18 04:00 95 Room Air 04/06/18 04:00 97.7 65 13 116/61 (79) 95 Room Air 04/06/18 03:00 65 15 109/45 (66) 95 Room Air 04/06/18 02:00 70 18 117/57 (77) 95 Room Air 04/06/18 01:00 70 04/06/18 01:00 70 13 120/72 (88) 93 Room Air 04/06/18 00:00 95 Room Air 04/06/18 00:00 97.7 75 20 113/60 (77) 95 Room Air 04/05/18 23:00 75 14 100/48 (65) 95 Room Air 04/05/18 22:00 75 17 100/62 (75) 96 Room Air 04/05/18 21:00 77 27 116/66 (83) 96 Room Air 04/05/18 20:00 97.9 80 21 110/63 (79) 98 Room Air 04/05/18 20:00 94 Room Air 04/05/18 19:00 86 04/05/18 19:00 86 17 116/65 (82) 97 Room Air 04/05/18 18:00 88 12 121/65 (83) 94 Room Air 04/05/18 17:00 89 10 126/76 (93) 98 Room Air 04/05/18 16:00 81 11 129/87 (101) 97 Room Air 04/05/18 15:14 99 Room Air 04/05/18 15:00 78 21 123/68 (86) 98 Room Air 04/05/18 14:29 97.0 72 17 129/52 (77) 98 Room Air 04/05/18 10:00 72 14 108/64 (79) 99 Room Air 04/05/18 09:00 99 Room Air 04/05/18 09:00 97.7 70 14 96/55 (69) 99 Room Air 04/05/18 08:41 65 98 21 04/05/18 08:00 78 14 110/58 (75) 99 Room Air I & O 04/06/18 07:00 Intake Total 450 ml Output Total 515 ml Balance -65 ml Capillary Refill : Less Than 3 Seconds General Appearance: No Apparent Distress, WD/WN, Obese HEENT: Normal ENT Inspection Neck: Full Range of Motion, Normal Inspection Respiratory: Lungs Clear, No Accessory Muscle Use, No Respiratory Distress Cardiovascular: Regular Rate, Rhythm, No Murmur Gastrointestinal: non tender, soft Results Lab Laboratory Tests 04/06/18 04:30 Laboratory Tests 04/05/18 12:29: Lab Scanned Report Transfusion Reaction Form 04/05/18 16:20: Glucometer 101 04/06/18 04:30: White Blood Count 3.8L, Red Blood Count 2.61L, Hemoglobin 7.7L, Hematocrit 24L, Mean Corpuscular Volume 92, Mean Corpuscular Hemoglobin 30, Mean Corpuscular Hemoglobin Concent 32, Red Cell Distribution Width 16.1H, Platelet Count 116L, Mean Platelet Volume 9.9, Neutrophils (%) (Auto) 65, Lymphocytes (%) (Auto) 16, Monocytes (%) (Auto) 11, Eosinophils (%) (Auto) 8, Basophils (%) (Auto) 0, Neutrophils # (Auto) 2.5, Lymphocytes # (Auto) 0.6L, Monocytes # (Auto) 0.4, Eosinophils # (Auto) 0.3, Basophils # (Auto) 0.0, Sodium Level 143, Potassium Level 4.1, Chloride Level 112H, Carbon Dioxide Level 26, Anion Gap 5, Blood Urea Nitrogen 19H, Creatinine 0.61, Estimat Glomerular Filtration Rate > 60, BUN /Creatinine Ratio 31, Glucose Level 135H, Calcium Level 8.1L, Phosphorus Level 2.4, Magnesium Level 1.5L, Total Bilirubin 2.0H, Aspartate Amino Transf (AST/ SGOT) 19, Alanine Aminotransferase (ALT/SGPT) 16, Alkaline Phosphatase 55, Total Protein 4.6L, Albumin 2.6L Microbiology 04/02/18 Blood Culture - Preliminary, Resulted No growth 04/05/18 Fungal Culture - Preliminary, Resulted Sent To [facility] 04/02/18 Urine Culture - Final, Complete See Comments Sent To [facility] Assessment/Plan Assessment/Plan Assess & Plan/Chief Complaint Patient doing better. Patient had EGD and colonoscopy today. Anemia. Recent pacemaker insertion due to atrial fibrillation. Diabetes. Dysphagia. Dysarthria. Occult blood of the stools positive. . 04/06/18. Patient alert. Patient has reflux esophagitis stage III. Distal esophagitis ulceration with white plaque for Anabel. Gastritis. Sepsis. UTI. Sick sinus rhythm. Altered mental status resolved. Anemia is lower today than yesterday. Cor peripheral venous circulation. Hypomagnesemia Clinical Quality Measures Admission Status Admission Dx Acute mental status change. Diabetes. fall. Hyperlipidemia. History of hypertension. Sepsis improving. Patient not a candidate for high-dose fluids. Recent pacemaker dual-chamber inserted. Anemia DVT/VTE Risk/Contraindication: Risk Factor Score Per Nursin RFS Level Per Nursing on Admit: 4+=Very High Contraindications-Pharm: Other *list below* ADEN LEE DO Apr 06, 2018 07:57
--- NOTE | 2018-04-06 08:16 | Anesthesia-General Post-Op ---
MAC Patient Condition Mental Status/LOC: Same as Preop Cardiovascular: Satisfactory Nausea/Vomiting: Absent Respiratory: Satisfactory Pain: Controlled Complications: Absent Post Op Complications Complications None Follow Up Care/Instructions Patient Instructions None needed. Anesthesiology Discharge Order Discharge Order Patient is doing well, no complaints, stable vital signs, no apparent adverse anesthesia problems. No complications reported per nursing. VICENTA HANKS CRNA Apr 06, 2018 08:16
--- NOTE | 2018-04-06 09:04 | Diagnostic Imaging Report ---
INDICATION: Sepsis, UTI. ICU care management. COMPARISON: 04/05/2018. FINDINGS: Stable low lung volumes. Minimal left basilar subsegmental atelectasis persists. No pleural effusion or pneumothorax. Stable cardiomediastinal silhouette with left pectoral transvenous dual-chamber pacemaker. Stable right subclavian Port-A-Cath. IMPRESSION: No adverse development. Dictated by: Dictated on workstation # [id number]
[2018-04-06] MEDS: PANTOPRAZOLE 40 MG (PROTONIX) TAB PO SCH (09:09)
[2018-04-06] MEDS: LACTATED RINGERS 1,000 ML IV SCH ×2 (09:10→12:18)
[2018-04-06] MEDS: FLUCONAZOLE 200 MG/100 ML 50 ML, SYRINGE-IVPB 1 SYRINGE IV SCH ×2 (09:27)
--- NOTE | 2018-04-06 11:03 | Progress Note (SOAP) ---
Subjective Date Seen by Provider: Apr 06, 2018 Time Seen by Provider: 10:00 Subjective/Events-last exam doing well. tolerating diet. Hb stable. Pt being treated for esophageal ulcer and suspected candidiasis. also appears to have left chest hematoma and UE edema. Objective Exam Vital Signs Date Time Temp Pulse Resp B/P (MAP) Pulse Ox O2 Delivery O2 Flow Rate FiO2 04/06/18 10:00 80 19 120/71 (87) 96 Room Air 04/06/18 09:08 Room Air 04/06/18 09:00 92 16 132/73 (92) 97 Room Air 04/06/18 08:00 77 16 102/71 (81) 97 Room Air 04/06/18 08:00 94 Room Air 04/06/18 07:00 80 20 120/69 (86) 97 Room Air 04/06/18 07:00 78 04/06/18 06:00 75 14 98/48 (65) 95 Room Air 04/06/18 05:00 67 13 112/52 (72) 95 Room Air 04/06/18 04:00 95 Room Air 04/06/18 04:00 97.7 65 13 116/61 (79) 95 Room Air 04/06/18 03:00 65 15 109/45 (66) 95 Room Air 04/06/18 02:00 70 18 117/57 (77) 95 Room Air 04/06/18 01:00 70 04/06/18 01:00 70 13 120/72 (88) 93 Room Air 04/06/18 00:00 95 Room Air 04/06/18 00:00 97.7 75 20 113/60 (77) 95 Room Air 04/05/18 23:00 75 14 100/48 (65) 95 Room Air 04/05/18 22:00 75 17 100/62 (75) 96 Room Air 04/05/18 21:00 77 27 116/66 (83) 96 Room Air 04/05/18 20:00 97.9 80 21 110/63 (79) 98 Room Air 04/05/18 20:00 94 Room Air 04/05/18 19:00 86 04/05/18 19:00 86 17 116/65 (82) 97 Room Air 04/05/18 18:00 88 12 121/65 (83) 94 Room Air 04/05/18 17:00 89 10 126/76 (93) 98 Room Air 04/05/18 16:00 81 11 129/87 (101) 97 Room Air 04/05/18 15:14 99 Room Air 04/05/18 15:00 78 21 123/68 (86) 98 Room Air 04/05/18 14:29 97.0 72 17 129/52 (77) 98 Room Air I & O 04/06/18 07:00 Intake Total 600 ml Output Total 640 ml Balance -40 ml Capillary Refill : Less Than 3 Seconds General Appearance: No Apparent Distress HEENT: PERRL/EOMI Neck: Full Range of Motion Respiratory: Normal Breath Sounds Cardiovascular: Regular Rate, Rhythm Gastrointestinal: normal bowel sounds, non tender, soft Extremity: Normal Capillary Refill Neurologic/Psychiatric: Alert, Oriented x3 Skin: Normal Color Results Lab Laboratory Tests 04/05/18 12:29: Lab Scanned Report Transfusion Reaction Form 04/05/18 16:20: Glucometer 101 04/06/18 04:30: White Blood Count 3.8L, Red Blood Count 2.61L, Hemoglobin 7.7L, Hematocrit 24L, Mean Corpuscular Volume 92, Mean Corpuscular Hemoglobin 30, Mean Corpuscular Hemoglobin Concent 32, Red Cell Distribution Width 16.1H, Platelet Count 116L, Mean Platelet Volume 9.9, Neutrophils (%) (Auto) 65, Lymphocytes (%) (Auto) 16, Monocytes (%) (Auto) 11, Eosinophils (%) (Auto) 8, Basophils (%) (Auto) 0, Neutrophils # (Auto) 2.5, Lymphocytes # (Auto) 0.6L, Monocytes # (Auto) 0.4, Eosinophils # (Auto) 0.3, Basophils # (Auto) 0.0, Sodium Level 143, Potassium Level 4.1, Chloride Level 112H, Carbon Dioxide Level 26, Anion Gap 5, Blood Urea Nitrogen 19H, Creatinine 0.61, Estimat Glomerular Filtration Rate > 60, BUN /Creatinine Ratio 31, Glucose Level 135H, Calcium Level 8.1L, Phosphorus Level 2.4, Magnesium Level 1.5L, Total Bilirubin 2.0H, Aspartate Amino Transf (AST/ SGOT) 19, Alanine Aminotransferase (ALT/SGPT) 16, Alkaline Phosphatase 55, Total Protein 4.6L, Albumin 2.6L Microbiology 04/02/18 Blood Culture - Preliminary, Resulted No growth 8/6/18 Fungal Culture - Preliminary, [facility] Urine Culture - Final, Complete See Comments [facility] Assessment/Plan Assessment/Plan Assess & Plan/Chief Complaint anemia with esophageal ulcer and suspected esophageal candidiasis. most likely cause of anemia. also had left chest hematoma and left upper extremity hematoma which may also have contributed to anemia. will monitor. continue protonix and diflucan and diet as nancy. ok for rehab when able. Clinical Quality Measures DVT/VTE Risk/Contraindication: Risk Factor Score Per Nursin RFS Level Per Nursing on Admit: 4+=Very High Contraindications-Pharm: Other *list below* KORY LACY MD Apr 06, 2018 11:03 am
--- NOTE | 2018-04-06 12:28 | Cardiology Progress Note ---
Cardiology SOAP Progress Note Subjective: No cardiac complaints. Swelling of left upper extremity. Objective: I&O/Vital Signs 04/06/18 04/06/18 04/06/18 04/06/18 01:00 01:00 02:00 03:00 Pulse 70 70 70 65 Resp 13 18 15 B/P (MAP) 120/72 (88) 117/57 (77) 109/45 (66) Pulse Ox 93 95 95 O2 Delivery Room Air Room Air Room Air 04/06/18 04/06/18 04/06/18 04/06/18 04:00 04:00 05:00 06:00 Temp 97.7 Pulse 65 67 75 Resp 13 13 14 B/P (MAP) 116/61 (79) 112/52 (72) 98/48 (65) Pulse Ox 95 95 95 95 O2 Delivery Room Air Room Air Room Air Room Air 04/06/18 04/06/18 04/06/18 04/06/18 07:00 07:00 08:00 08:00 Pulse 78 80 77 Resp 20 16 B/P (MAP) 120/69 (86) 102/71 (81) Pulse Ox 97 94 97 O2 Delivery Room Air Room Air Room Air 04/06/18 04/06/18 04/06/18 09:00 09:08 10:00 Pulse 92 80 Resp 16 19 B/P (MAP) 132/73 (92) 120/71 (87) Pulse Ox 97 96 O2 Delivery Room Air Room Air Room Air 04/06/18 00:00 Intake Total 450 ml Output Total 375 ml Balance 75 ml Weight (Pounds): 294 Weight (Ounces): 7.0 Weight (Calculated Kilograms): 133.198144 Constitutional: No appears stated age, No AAO x 3, No apparent distress, No PERRL, No well-developed, No well-nourished, No other Respiratory: chest is bilaterally symmetric, lungs clear to auscultation Cardiovascular: regular rate-rhythm; No irregularly irregular, No extra beats, No parasternal heave is noted, No JVD, No edema, No bradycardia, No tachycardia , No point of maximal impulse, No cardiac thrills are palpable; S1 and S2; No gallop/S3, No gallop/S4, No diastolic murmur, No systolic murmur, No friction rub, No click, No other Gastrointestional: No tender, No soft, No round, No distended, No pulsatile mass, No organomegaly, No guarding, No rebound, No tenderness, No hernia, No mass, No audible bowel sounds, No abnormal bowel sounds, No abdominal bruits, No spleenomegaly, No other Extremities: No normal range of motion, No non-tender, No normal inspection, No pedal edema, No calf tenderness, No normal capillary refill, No pelvis stable , No calf tenderness, No inflammation, No pedal edema, No slow capillary refill ; swelling; No other, No abrasion, No clubbing, No cyanosis, No ecchymosis, No laceration, No no lower extremity edema bilateral, No significant edema, No tenderness, No wound Neurologic/Psychiatric: no motor/sensory deficits, alert, normal mood/affect, oriented x 3 Skin: No normal color, No warm/dry, No cyanosis, No cool, No diaphoresis, No damp, No ecchymosis, No jaundice, No mottled, No pallor, No rash, No tattoos/ piercings, No ulcerations, No rash on exposed areas, No ulcerations on exposed areas, No other Results/Procedures: Labs Laboratory Tests 04/05/18 12:29: Lab Scanned Report Transfusion Reaction Form 04/05/18 16:20: Glucometer 101 04/06/18 04:30: White Blood Count 3.8L, Red Blood Count 2.61L, Hemoglobin 7.7L, Hematocrit 24L, Mean Corpuscular Volume 92, Mean Corpuscular Hemoglobin 30, Mean Corpuscular Hemoglobin Concent 32, Red Cell Distribution Width 16.1H, Platelet Count 116L, Mean Platelet Volume 9.9, Neutrophils (%) (Auto) 65, Lymphocytes (%) (Auto) 16, Monocytes (%) (Auto) 11, Eosinophils (%) (Auto) 8, Basophils (%) (Auto) 0, Neutrophils # (Auto) 2.5, Lymphocytes # (Auto) 0.6L, Monocytes # (Auto) 0.4, Eosinophils # (Auto) 0.3, Basophils # (Auto) 0.0, Sodium Level 143, Potassium Level 4.1, Chloride Level 112H, Carbon Dioxide Level 26, Anion Gap 5, Blood Urea Nitrogen 19H, Creatinine 0.61, Estimat Glomerular Filtration Rate > 60, BUN /Creatinine Ratio 31, Glucose Level 135H, Calcium Level 8.1L, Phosphorus Level 2.4, Magnesium Level 1.5L, Total Bilirubin 2.0H, Aspartate Amino Transf (AST/ SGOT) 19, Alanine Aminotransferase (ALT/SGPT) 16, Alkaline Phosphatase 55, Total Protein 4.6L, Albumin 2.6L 04/06/18 11:06: Glucometer 170H Microbiology 04/02/18 Blood Culture - Preliminary, Resulted No growth 04/05/18 Fungal Culture - Preliminary, Resulted Sent To [facility] 04/02/18 Urine Culture - Final, Complete See Comments Sent To [facility] A/P: Assessment/Dx: Admission Diagnosis Sepsis UTI Sick sinus syndrome Change in mental status- improved Anemia Left upper extremity swelling. Plan: Near Syncope, history of syncope with recent pacemaker implant, significant drop in H&H. Continue to hold Eliquis. Dr Jonas and Dr Clifton following. EGD/Colonoscopy: Results pending. Sick sinus syndrome with history of syncope, status post pacemaker implant, site is healing well Left upper extremity swelling: We will request left upper extremity ultrasound to rule out DVT. Likely due to infiltrated midline. UTI, sepsis, started on Rocephin, managed by medical team, was on Clindamycin as an outpatient Anemia, mild thrombocytopenia, seen previously by Dr Clifton, significant drop in H& H over the past 24 hours. Did not receive Eliquis since arrival to the hospital , continue to hold it, transfuse 2 units of packed RBCs and initiate workup for GI loss as described above Paroxysmal atrial fibrillation, currently in sinus rhythm with APCs and VPCs, monitor blood pressure and heart rate History of CVA with subsequent dysphasia, worse on 03-17-18, but has improved, mild slurred Speech noted Echo of 03/18/18: LVEF 55-60%, AoV sclerosis w/o stenosis, PASP 30 mmHg No angiographically significant coronary artery disease, normal global left ventricular systolic function with an ejection fraction of approximately 60 to 65%, elevated left ventricular end-diastolic pressure indicative of some degree of diastolic dysfunction of the left ventricle, and no significant mitral regurgitation per cardiac catheterization from 01/06/12 Maturity onset diabetes mellitus. Hypertension, restart home meds and monitor blood pressure response Chronic bilateral leg swelling, likely related to venous insufficiency. Hyperlipidemia, continue to monitor Chronic back pain and degenerative joint disease. Pulmonary artery systolic pressure is estimated to be approximately 40 mmHg per echocardiogram from 08/18/2013, which is unchanged from 2012 Thank you for your consultation. Please call me if you have any questions. Elgin Colvin MD, FACP, FACC, FSCAI, FHRS, CCDS Interventional Cardiology Cardiac Electrophysiology Vascular Medicine and Endovascular Inter[facility] [place] COLVIN MD Apr 06, 2018 12:28
--- NOTE | 2018-04-06 13:04 | Speech Therapy Daily Note ---
Speech Daily Progress Note Subjective Date Seen by Provider: Apr 06, 2018 Time Seen by Provider: 08:20 Pt pleasant and cooperative. Objective Observed pt consuming thickened liquids. No s/s of aspiration observed. Attempted thin water with pt x2 and observed coughing after the swallow on both attempts. Continue with nectar thick liquids. Assessment Assessment Current Status: Fair Progress Treatment Plan Continue Plan of Care Speech Short Term Goals Short Term Goals Short Term Goals NURSING SPECIALIST will periodically check pt to determine how she is tolerating her nectar thick liquids and decide when to attempt thin liquids again. Speech Dixonac Operator Goals Dixonac Operator Goals To be back on thin liquids without s/s of aspiration. Speech-Plan Patient/Family Goals Patient/Family Goals: to drink thin liquids again. Treatment Plan Speech Therapy Treatment Plan: Continue Plan of Care Pt continues to be weak overall this affecting her swallowing. Frequency: 2 times per week Estimated Hrs Per Day: .25 hour per day Rehab Potential: Good Pt/Family Agrees to Plan: Yes Safety Risks/Education Teaching Recipient: Patient Teaching Methods: Discussion Response to Teaching: Verbalize Understanding Time Speech Therapy Time In: 08:20 Speech Therapy Time Out: 08:40 Total Billed Time: 20 Billed Treatment Time 1, [address] Apr 06, 2018 13:03
--- NOTE | 2018-04-06 18:28 | Diagnostic Imaging Report ---
PROCEDURE: US venous upper extremity left. TECHNIQUE: Multiple realtime grayscale images were obtained of left upper extremity in various projections. Duplex Doppler and and color Doppler images were also obtained. INDICATION: Hematoma. FINDINGS: The subclavian vein cannot be visualized due to a large hematoma overlying the left chest measuring approximately 5.1 x 2.8 x 6 cm. There is a second area of hematoma under the port measuring 5.8 x 3.4 cm. IMPRESSION: Large hematoma overlying the left chest wall and Infusaport catheter. Deep venous thrombosis is seen in the axillary vein. Subclavian vein is not well-seen nor are the brachial and radial veins. There does appear to be deep venous thrombosis in the axillary vein. Brachial veins and radial veins are not well-seen due to edema although underlying thrombus could not be excluded. Dictated by: Dictated on workstation # [id number]
[2018-04-06] MEDS: ATORVASTATIN 40 MG (LIPITOR) TABLET PO SCH (20:26)
[2018-04-07 00:03] VITALS: BP 151/65
[2018-04-07 03:59] VITALS: BP 179/76
[2018-04-07 05:08] LABS: BASOPHILS % (AUTO) 1 % (0-10); EOSINOPHILS # (AUTO) 0.2 10^3/uL (0.0-0.3); EOSINOPHILS % (AUTO) 5 % (0-10); HEMATOCRIT 24 % (35-52); HEMOGLOBIN 8.1 G/DL (11.5-16.0); LYMPHOCYTES # (AUTO) 0.7 X 10^3 (1.0-4.0); LYMPHOCYTES % (AUTO) 16 % (12-44); MEAN CORPUSCULAR HEMOGLOBIN 31 PG (25-34); MEAN CORPUSCULAR HGB CONC 33 G/DL (32-36); MEAN CORPUSCULAR VOLUME 91 FL (80-99); MEAN PLATELET VOLUME 9.8 FL (7.4-10.4); MONOCYTES # (AUTO) 0.5 X 10^3 (0.0-1.0); MONOCYTES % (AUTO) 10 % (0-12); NEUTROPHILS % (AUTO) 68 % (42-75); PLATELET COUNT 118 10^3/uL (130-400); RED BLOOD COUNT 2.66 10^6/uL (4.35-5.85); RED CELL DISTRIBUTION WIDTH 15.8 % (10.0-14.5); WHITE BLOOD COUNT 4.4 10^3/uL (4.3-11.0)
[2018-04-07] MEDS: PANTOPRAZOLE 40 MG (PROTONIX) TAB PO SCH (06:35)
[2018-04-07 08:00] VITALS: BP 156/61
--- NOTE | 2018-04-07 08:06 | Progress Note (SOAP) ---
Subjective Time Seen by Provider: 08:00 Subjective/Events-last exam Patient feeling better and alert today. Patient has a lot swelling on the left chest wall and left upper arm. Ultrasound shows DVT in the axillary vein. Large hematoma overlying left chest wall and port. Also in the upper left arm blood. Patient hemoglobin 8.1 stable moved up a little hematocrit 24 platelet count 118 Objective Exam Vital Signs Date Time Temp Pulse Resp B/P (MAP) Pulse Ox O2 Delivery O2 Flow Rate FiO2 04/07/18 07:46 98 Room Air 04/07/18 03:59 98.5 69 17 179/76 (110) 95 Room Air 04/07/18 00:46 77 04/07/18 00:03 98.6 78 19 151/65 (93) 96 Room Air 04/06/18 20:00 97.8 84 20 160/74 (102) 97 Room Air 04/06/18 19:47 96 Room Air 04/06/18 19:06 77 04/06/18 16:00 97.7 74 16 150/78 (102) 98 Room Air 04/06/18 13:00 76 04/06/18 12:00 Room Air 04/06/18 12:00 98.1 77 18 194/77 (116) 97 Room Air 04/06/18 10:00 80 19 120/71 (87) 96 Room Air 04/06/18 09:08 Room Air 04/06/18 09:00 92 16 132/73 (92) 97 Room Air I & O 04/07/18 07:00 Intake Total 2495 ml Output Total 1050 ml Balance 1445 ml Capillary Refill : Less Than 3 Seconds General Appearance: No Apparent Distress, WD/WN, Obese HEENT: Normal ENT Inspection Neck: Full Range of Motion, Normal Inspection Respiratory: Lungs Clear, No Accessory Muscle Use, No Respiratory Distress Cardiovascular: Regular Rate, Rhythm, No Murmur Gastrointestinal: non tender, soft Results Lab Laboratory Tests 04/07/18 05:00 Laboratory Tests 04/06/18 11:06: Glucometer 170H 04/06/18 15:33: Glucometer 180H 04/06/18 20:58: Glucometer 168H 04/07/18 05:00: White Blood Count 4.4, Red Blood Count 2.66L, Hemoglobin 8.1L, Hematocrit 24L, Mean Corpuscular Volume 91, Mean Corpuscular Hemoglobin 31, Mean Corpuscular Hemoglobin Concent 33, Red Cell Distribution Width 15.8H, Platelet Count 118L, Mean Platelet Volume 9.8, Neutrophils (%) (Auto) 68, Lymphocytes (%) (Auto) 16, Monocytes (%) (Auto) 10, Eosinophils (%) (Auto) 5, Basophils (%) (Auto) 1, Neutrophils # (Auto) 3.0, Lymphocytes # (Auto) 0.7L, Monocytes # (Auto) 0.5, Eosinophils # (Auto) 0.2, Basophils # (Auto) 0.0, Magnesium Level 1.5L 04/07/18 05:17: Glucometer 140H Microbiology 04/02/18 Blood Culture - Preliminary, Resulted No growth 04/05/18 Fungal Culture - Preliminary, Resulted Sent To [facility] 04/02/18 Urine Culture - Final, Complete See Comments Sent To [facility] Assessment/Plan Assessment/Plan Assess & Plan/Chief Complaint Patient doing better. Patient had EGD and colonoscopy today. Anemia. Recent pacemaker insertion due to atrial fibrillation. Diabetes. Dysphagia. Dysarthria. Occult blood of the stools positive. . 04/06/18. Patient alert. Patient has reflux esophagitis stage III. Distal esophagitis ulceration with white plaque for Anabel. Gastritis. Sepsis. UTI. Sick sinus rhythm. Altered mental status resolved. Anemia is lower today than yesterday. Cor peripheral venous circulation. Hypomagnesemia. . 04/07/18. Reflux esophagitis stage III. Distal esophagitis ulceration with white plaques for Anabel. Gastritis. DVT of axillary vein. Large hematoma. Altered mental status resolved Clinical Quality Measures Admission Status Admission Dx Acute mental status change. Diabetes. fall. Hyperlipidemia. History of hypertension. Sepsis improving. Patient not a candidate for high-dose fluids. Recent pacemaker dual-chamber inserted. Anemia DVT/VTE Risk/Contraindication: Risk Factor Score Per Nursin RFS Level Per Nursing on Admit: 4+=Very High Contraindications-Pharm: Other *list below* ADEN LEE DO Apr 07, 2018 08:06
[2018-04-07] MEDS: FLUCONAZOLE 200 MG/100 ML 50 ML, SYRINGE-IVPB 1 SYRINGE IV SCH ×2 (09:10)
[2018-04-07 12:00] VITALS: BP 154/68
[2018-04-07] MEDS: APIXABAN 5 MG (ELIQUIS) TABLET PO SCH ×2 (12:08→20:37)
--- NOTE | 2018-04-07 13:13 | Cardiology Progress Note ---
Cardiology SOAP Progress Note Subjective: Left upper extremity swelling and erythema Objective: I&O/Vital Signs 04/07/18 04/07/18 04/07/18 04/07/18 03:59 07:00 07:46 08:00 Temp 98.5 98.0 Pulse 69 82 82 Resp 17 18 B/P (MAP) 179/76 (110) 156/61 (92) Pulse Ox 95 98 98 O2 Delivery Room Air Room Air Room Air 04/07/18 12:00 Temp 97.9 Pulse 76 Resp 18 B/P (MAP) 154/68 (96) Pulse Ox 96 O2 Delivery Room Air 04/07/18 00:00 Intake Total 2020 ml Output Total 800 ml Balance 1220 ml Weight (Pounds): 314 Weight (Ounces): 3.0 Weight (Calculated Kilograms): 142.879602 Constitutional: No appears stated age, No AAO x 3, No apparent distress, No PERRL, No well-developed, No well-nourished, No other Respiratory: chest is bilaterally symmetric, lungs clear to auscultation Cardiovascular: regular rate-rhythm; No irregularly irregular, No extra beats, No parasternal heave is noted, No JVD, No edema, No bradycardia, No tachycardia , No point of maximal impulse, No cardiac thrills are palpable; S1 and S2; No gallop/S3, No gallop/S4, No diastolic murmur, No systolic murmur, No friction rub, No click, No other Gastrointestional: No tender, No soft, No round, No distended, No pulsatile mass, No organomegaly, No guarding, No rebound, No tenderness, No hernia, No mass, No audible bowel sounds, No abnormal bowel sounds, No abdominal bruits, No spleenomegaly, No other Extremities: No normal range of motion, No non-tender, No normal inspection, No pedal edema, No calf tenderness, No normal capillary refill, No pelvis stable , No calf tenderness, No inflammation, No pedal edema, No slow capillary refill ; swelling; No other, No abrasion, No clubbing, No cyanosis; ecchymosis (left upper extremity.); No laceration, No no lower extremity edema bilateral, No significant edema, No tenderness, No wound Neurologic/Psychiatric: no motor/sensory deficits, alert, normal mood/affect, oriented x 3 Skin: No normal color, No warm/dry, No cyanosis, No cool, No diaphoresis, No damp, No ecchymosis, No jaundice, No mottled, No pallor, No rash, No tattoos/ piercings, No ulcerations, No rash on exposed areas, No ulcerations on exposed areas, No other Results/Procedures: Labs Laboratory Tests 04/06/18 15:33: Glucometer 180H 04/06/18 20:58: Glucometer 168H 04/07/18 05:00: White Blood Count 4.4, Red Blood Count 2.66L, Hemoglobin 8.1L, Hematocrit 24L, Mean Corpuscular Volume 91, Mean Corpuscular Hemoglobin 31, Mean Corpuscular Hemoglobin Concent 33, Red Cell Distribution Width 15.8H, Platelet Count 118L, Mean Platelet Volume 9.8, Neutrophils (%) (Auto) 68, Lymphocytes (%) (Auto) 16, Monocytes (%) (Auto) 10, Eosinophils (%) (Auto) 5, Basophils (%) (Auto) 1, Neutrophils # (Auto) 3.0, Lymphocytes # (Auto) 0.7L, Monocytes # (Auto) 0.5, Eosinophils # (Auto) 0.2, Basophils # (Auto) 0.0, Magnesium Level 1.5L 04/07/18 05:17: Glucometer 140H 04/07/18 11:14: Glucometer 168H Microbiology 04/02/18 Blood Culture - Preliminary, Resulted No growth 04/05/18 Fungal Culture - Preliminary, Resulted Sent To [facility] 04/02/18 Urine Culture - Final, Complete See Comments Sent To [facility] A/P: Assessment/Dx: Admission Diagnosis Sepsis UTI Sick sinus syndrome Change in mental status- improved Anemia Left upper extremity swelling. Plan: Near Syncope, history of syncope with recent pacemaker implant, significant drop in H&H. Continue to hold Eliquis. Dr Jonas and Dr Clifton following. EGD/Colonoscopy: Results pending. Sick sinus syndrome with history of syncope, status post pacemaker implant, site is healing well with no significant site concerns. Left upper extremity swelling/DVT: Left upper extremity ultrasound showed axillary DVT. Upper arm large hematoma also noted. This is a site where a PICC line was placed on 04/02/2018 and removed on 04/03/2018 due to arm swelling and pain. Cold packs. Hourly pulse check and asked for upper extremity pain to look out for compression syndrome. Discussed at length with the nurses. Patient needs to be on Eliquis for 2 indications including atrial fibrillation and axillary DVT. Indicated dose for DVT is 10 mg twice a day however due to significant upper arm hematoma and recent anemia and drop in H&H, Dr. Cortez and I discussed at length and decided to start Eliquis 5 mg twice a day. We will also do H&H in 12 hours and repeat ultrasound in the morning. I also requested to measure the diameter of left arm and keep checking it hourly for now. In general upper extremity DVTs are less likely to cause hemodynamically significant PE. UTI, sepsis, started on Rocephin, managed by medical team, was on Clindamycin as an outpatient Anemia, mild thrombocytopenia, seen previously by Dr Clifton, significant drop in H& H over the past 24 hours. Paroxysmal atrial fibrillation, currently in sinus rhythm with APCs and VPCs, monitor blood pressure and heart rate. History of CVA with subsequent dysphasia, worse on 03-17-18, but has improved, mild slurred Speech noted Echo of 03/18/18: LVEF 55-60%, AoV sclerosis w/o stenosis, PASP 30 mmHg No angiographically significant coronary artery disease, normal global left ventricular systolic function with an ejection fraction of approximately 60 to 65%, elevated left ventricular end-diastolic pressure indicative of some degree of diastolic dysfunction of the left ventricle, and no significant mitral regurgitation per cardiac catheterization from 01/06/12 Maturity onset diabetes mellitus. Hypertension, restart home meds and monitor blood pressure response Chronic bilateral leg swelling, likely related to venous insufficiency. Hyperlipidemia, continue to monitor Chronic back pain and degenerative joint disease. Pulmonary artery systolic pressure is estimated to be approximately 40 mmHg per echocardiogram from 08/18/2013, which is unchanged from 2011 Thank you for your consultation. Please call me if you have any questions. Elgin Pozo MD, FACP, FACC, FSCAI, FHRS, CCDS Interventional Cardiology Cardiac Electrophysiology Vascular Medicine and Endovascular Interventions [place] POZO MD Apr 07, 2018 1:13 pm
--- NOTE | 2018-04-07 15:32 | Progress Note (SOAP) ---
Subjective Date Seen by Provider: Apr 07, 2018 Time Seen by Provider: 14:00 Subjective/Events-last exam doing well. Hb stable. tolerating diet. left upper chest and extremity swelling. no pain on active pain flexion or extension. compartments soft with easily palpable radial. no signs or symptoms of compartment syndrome. has left UE DVT and started on anticoag today. Objective Exam Vital Signs Date Time Temp Pulse Resp B/P (MAP) Pulse Ox O2 Delivery O2 Flow Rate FiO2 04/07/18 13:00 76 04/07/18 12:00 97.9 76 18 154/68 (96) 96 Room Air 04/07/18 08:00 98.0 82 18 156/61 (92) 98 Room Air 04/07/18 07:46 98 Room Air 04/07/18 07:00 82 04/07/18 03:59 98.5 69 17 179/76 (110) 95 Room Air 04/07/18 00:46 77 04/07/18 00:03 98.6 78 19 151/65 (93) 96 Room Air 04/06/18 20:00 97.8 84 20 160/74 (102) 97 Room Air 04/06/18 19:47 96 Room Air 04/06/18 19:06 77 04/06/18 16:00 97.7 74 16 150/78 (102) 98 Room Air I & O 04/07/18 07:00 Intake Total 2495 ml Output Total 1050 ml Balance 1445 ml Capillary Refill : Less Than 3 Seconds General Appearance: No Apparent Distress HEENT: PERRL/EOMI Neck: Full Range of Motion Respiratory: Chest Non Tender, Lungs Clear Cardiovascular: Regular Rate, Rhythm Gastrointestinal: normal bowel sounds, non tender, soft Extremity: Normal Capillary Refill, Swelling, Other (left arm adema, compartments soft.) Neurologic/Psychiatric: Alert, Oriented x3 Skin: Normal Color Lymphatic: No Adenopathy Results Lab Laboratory Tests 04/06/18 15:33: Glucometer 180H 04/06/18 20:58: Glucometer 168H 04/07/18 05:00: White Blood Count 4.4, Red Blood Count 2.66L, Hemoglobin 8.1L, Hematocrit 24L, Mean Corpuscular Volume 91, Mean Corpuscular Hemoglobin 31, Mean Corpuscular Hemoglobin Concent 33, Red Cell Distribution Width 15.8H, Platelet Count 118L, Mean Platelet Volume 9.8, Neutrophils (%) (Auto) 68, Lymphocytes (%) (Auto) 16, Monocytes (%) (Auto) 10, Eosinophils (%) (Auto) 5, Basophils (%) (Auto) 1, Neutrophils # (Auto) 3.0, Lymphocytes # (Auto) 0.7L, Monocytes # (Auto) 0.5, Eosinophils # (Auto) 0.2, Basophils # (Auto) 0.0, Magnesium Level 1.5L 04/07/18 05:17: Glucometer 140H 04/07/18 11:14: Glucometer 168H Microbiology 04/02/18 Blood Culture - Preliminary, Resulted No growth 04/05/18 Fungal Culture - Preliminary, Resulted Sent To [facility] 04/02/18 Urine Culture - Final, Complete See Comments Sent To [facility] Assessment/Plan Assessment/Plan Assess & Plan/Chief Complaint anemia with esophageal ulcer and suspected esophageal candidiasis. most likely cause of anemia. also had left chest hematoma and left upper extremity hematoma which may also have contributed to anemia. will monitor. continue protonix and diflucan and diet as nancy. ok for rehab when able. has left chest wall hematoma, left upper extremity edema and DVT however no signs or symptoms compartment sydrome. will recommend ice and elevation. anticoagulation also started today. will continue to monitor. Clinical Quality Measures DVT/VTE Risk/Contraindication: Risk Factor Score Per Nursin RFS Level Per Nursing on Admit: 4+=Very High Contraindications-Pharm: Other *list below* KORY LACY MD Apr 07, 2018 3:32 pm
[2018-04-07 16:00] VITALS: BP 154/72
[2018-04-07] MEDS ORDERED: FLUCONAZOLE 200 MG/100 ML 50 ML, EMPTY IV BAG (PVC) 1 EA IV SCH ×2 (16:00)
[2018-04-07 20:00] VITALS: BP 164/82
[2018-04-07] MEDS: ATORVASTATIN 40 MG (LIPITOR) TABLET PO SCH (20:37)
[2018-04-08] VITALS (8 sets, daily range): BP systolic 110–148; BP diastolic 62–78
[2018-04-08 05:36] LABS: BASOPHILS % (AUTO) 0 % (0-10); EOSINOPHILS # (AUTO) 0.3 10^3/uL (0.0-0.3); EOSINOPHILS % (AUTO) 7 % (0-10); HEMATOCRIT 25 % (35-52); HEMOGLOBIN 8.1 G/DL (11.5-16.0); LYMPHOCYTES # (AUTO) 0.7 X 10^3 (1.0-4.0); LYMPHOCYTES % (AUTO) 15 % (12-44); MEAN CORPUSCULAR HEMOGLOBIN 29 PG (25-34); MEAN CORPUSCULAR HGB CONC 32 G/DL (32-36); MEAN CORPUSCULAR VOLUME 92 FL (80-99); MEAN PLATELET VOLUME 9.9 FL (7.4-10.4); MONOCYTES # (AUTO) 0.5 X 10^3 (0.0-1.0); MONOCYTES % (AUTO) 10 % (0-12); NEUTROPHILS # (AUTO) 3.2 X 10^3 (1.8-7.8); NEUTROPHILS % (AUTO) 68 % (42-75); PLATELET COUNT 132 10^3/uL (130-400); RED BLOOD COUNT 2.76 10^6/uL (4.35-5.85); RED CELL DISTRIBUTION WIDTH 16.4 % (10.0-14.5); WHITE BLOOD COUNT 4.8 10^3/uL (4.3-11.0)
[2018-04-08] MEDS: PANTOPRAZOLE 40 MG (PROTONIX) TAB PO SCH (05:57)
--- NOTE | 2018-04-08 08:03 | Progress Note (SOAP) ---
Subjective Time Seen by Provider: 07:50 Subjective/Events-last exam Patient feeling better today. Patient alert. Hemoglobin and hematocrit stable. Patient started on lower dose of the liquids because of bleeding risk. Patient able to make a fist with the left hand today. Swelling in the left arm and upper on less. Patient in the right direction Objective Exam Vital Signs Date Time Temp Pulse Resp B/P (MAP) Pulse Ox O2 Delivery O2 Flow Rate FiO2 04/08/18 03:42 97.3 73 18 146/74 (98) 97 Room Air 04/08/18 01:00 74 04/08/18 00:00 97.3 66 20 148/78 (101) 96 Room Air 04/07/18 20:04 98 Room Air 04/07/18 20:00 97.5 77 20 164/82 (109) 97 Room Air 04/07/18 19:31 90 04/07/18 16:00 97.3 75 20 154/72 (99) 100 Room Air 04/07/18 13:00 76 04/07/18 12:00 97.9 76 18 154/68 (96) 96 Room Air I & O 04/08/18 07:00 Intake Total 1800 ml Output Total 150 ml Balance 1650 ml Capillary Refill : Less Than 3 Seconds General Appearance: No Apparent Distress, WD/WN, Obese HEENT: Normal ENT Inspection Neck: Normal Inspection Respiratory: Lungs Clear, No Accessory Muscle Use, No Respiratory Distress Cardiovascular: Regular Rate, Rhythm, No Murmur Gastrointestinal: non tender, soft Extremity: Other (Left upper extremity less swelling.Able to make a fist today) Results Lab Laboratory Tests 04/08/18 05:26 Laboratory Tests 04/07/18 11:14: Glucometer 168H 04/07/18 15:36: Glucometer 173H 04/07/18 21:03: Glucometer 181H 04/08/18 05:07: Glucometer 139H 04/08/18 05:26: White Blood Count 4.8, Red Blood Count 2.76L, Hemoglobin 8.1L, Hematocrit 25L, Mean Corpuscular Volume 92, Mean Corpuscular Hemoglobin 29, Mean Corpuscular Hemoglobin Concent 32, Red Cell Distribution Width 16.4H, Platelet Count 132, Mean Platelet Volume 9.9, Neutrophils (%) (Auto) 68, Lymphocytes (%) (Auto) 15, Monocytes (%) (Auto) 10, Eosinophils (%) (Auto) 7, Basophils (%) (Auto) 0, Neutrophils # (Auto) 3.2, Lymphocytes # (Auto) 0.7L, Monocytes # (Auto) 0.5, Eosinophils # (Auto) 0.3, Basophils # (Auto) 0.0 Microbiology 04/02/18 Blood Culture - Final, Complete No growth 04/05/18 Fungal Culture - Preliminary, Resulted Sent To [facility] 04/02/18 Urine Culture - Final, Complete See Comments Sent To [facility] Assessment/Plan Assessment/Plan Assess & Plan/Chief Complaint Patient doing better. Patient had EGD and colonoscopy today. Anemia. Recent pacemaker insertion due to atrial fibrillation. Diabetes. Dysphagia. Dysarthria. Occult blood of the stools positive. . 04/06/18. Patient alert. Patient has reflux esophagitis stage III. Distal esophagitis ulceration with white plaque for Anabel. Gastritis. Sepsis. UTI. Sick sinus rhythm. Altered mental status resolved. Anemia is lower today than yesterday. Cor peripheral venous circulation. Hypomagnesemia. . 04/07/18. Reflux esophagitis stage III. Distal esophagitis ulceration with white plaques for Anabel. Gastritis. DVT of axillary vein. Large hematoma. Altered mental status resolved. . 04/08/18. Anemia stable. Swelling of left hand and left upper arm less. Patient feeling better. Esophageal ulcer. Esophageal Anabel. PASTOR, and chest and left upper extremity getting better. Low dose developed was started since patient high risk for bleed Diabetes. Recent pacemaker insertion. Recent port insertion Clinical Quality Measures Admission Status Admission Dx Acute mental status change. Diabetes. fall. Hyperlipidemia. History of hypertension. Sepsis improving. Patient not a candidate for high-dose fluids. Recent pacemaker dual-chamber inserted. Anemia DVT/VTE Risk/Contraindication: Risk Factor Score Per Nursin RFS Level Per Nursing on Admit: 4+=Very High Contraindications-Pharm: Other *list below* ADEN LEE DO Apr 08, 2018 08:03
--- NOTE | 2018-04-08 08:07 | Cardiology Progress Note ---
Cardiology SOAP Progress Note Subjective: Improved left upper extremity swelling. Objective: I&O/Vital Signs 04/08/18 04/08/18 04/08/18 04/08/18 11:13 12:00 13:00 14:59 Temp 98.1 Pulse 72 80 Resp 18 B/P (MAP) 142/74 (96) Pulse Ox 95 99 96 O2 Delivery Room Air Room Air Room Air 04/08/18 04/08/18 04/08/18 04/08/18 16:00 18:36 19:00 19:56 Temp 97.5 97.5 Pulse 88 87 88 Resp 22 18 B/P (MAP) 138/62 (87) 110/66 (81) Pulse Ox 95 99 95 O2 Delivery Room Air Room Air Room Air 04/08/18 00:00 Intake Total 1650 ml Output Total 150 ml Balance 1500 ml Weight (Pounds): 315 Weight (Ounces): 2.0 Weight (Calculated Kilograms): 142.527770 Constitutional: No appears stated age, No AAO x 3, No apparent distress, No PERRL, No well-developed, No well-nourished, No other Respiratory: chest is bilaterally symmetric, lungs clear to auscultation Cardiovascular: regular rate-rhythm; No irregularly irregular, No extra beats, No parasternal heave is noted, No JVD, No edema, No bradycardia, No tachycardia , No point of maximal impulse, No cardiac thrills are palpable; S1 and S2; No gallop/S3, No gallop/S4, No diastolic murmur, No systolic murmur, No friction rub, No click, No other Gastrointestional: No tender, No soft, No round, No distended, No pulsatile mass, No organomegaly, No guarding, No rebound, No tenderness, No hernia, No mass, No audible bowel sounds, No abnormal bowel sounds, No abdominal bruits, No spleenomegaly, No other Extremities: No normal range of motion, No non-tender, No normal inspection, No pedal edema, No calf tenderness, No normal capillary refill, No pelvis stable , No calf tenderness, No inflammation, No pedal edema, No slow capillary refill ; swelling; No other, No abrasion, No clubbing, No cyanosis; ecchymosis (left upper extremity.); No laceration, No no lower extremity edema bilateral, No significant edema, No tenderness, No wound Neurologic/Psychiatric: no motor/sensory deficits, alert, normal mood/affect, oriented x 3 Skin: No normal color, No warm/dry, No cyanosis, No cool, No diaphoresis, No damp, No ecchymosis, No jaundice, No mottled, No pallor, No rash, No tattoos/ piercings, No ulcerations, No rash on exposed areas, No ulcerations on exposed areas, No other Results/Procedures: Labs Laboratory Tests 04/08/18 05:07: Glucometer 139H 04/08/18 05:26: White Blood Count 4.8, Red Blood Count 2.76L, Hemoglobin 8.1L, Hematocrit 25L, Mean Corpuscular Volume 92, Mean Corpuscular Hemoglobin 29, Mean Corpuscular Hemoglobin Concent 32, Red Cell Distribution Width 16.4H, Platelet Count 132, Mean Platelet Volume 9.9, Neutrophils (%) (Auto) 68, Lymphocytes (%) (Auto) 15, Monocytes (%) (Auto) 10, Eosinophils (%) (Auto) 7, Basophils (%) (Auto) 0, Neutrophils # (Auto) 3.2, Lymphocytes # (Auto) 0.7L, Monocytes # (Auto) 0.5, Eosinophils # (Auto) 0.3, Basophils # (Auto) 0.0 04/08/18 11:20: Glucometer 177H 04/08/18 16:36: Glucometer 197H 04/08/18 18:15: Hemoglobin 8.6L 04/08/18 20:02: Glucometer 258H Microbiology 04/02/18 Blood Culture - Final, Complete No growth 04/05/18 Fungal Culture - Preliminary, [facility] Urine Culture - Final, Complete See Comments [facility] A/P: Assessment/Dx: Admission Diagnosis Sepsis UTI Sick sinus syndrome Change in mental status- improved Anemia Left upper extremity swelling. Plan: Near Syncope, history of syncope with recent pacemaker implant, significant drop in H&H. Continue to hold Eliquis. Dr Jonas and Dr Clifton following. EGD/Colonoscopy: According to my understanding no source of GI bleeding. An esophageal ulcer was noted and biopsies done. Sick sinus syndrome with history of syncope, status post pacemaker implant, site is healing well with no significant site concerns. Left upper extremity swelling/DVT: Left upper extremity ultrasound showed axillary DVT. Upper arm large hematoma also noted. This is a site where a PICC line was placed on 04/02/2018 and removed on 04/03/2018 due to arm swelling and pain. Patient was started on Eliquis. No increase in diameter of left arm. No pain. Palpable pulses. No change in H&H. Repeat ultrasound showed resolution of axillary DVT. However the size of the hematoma is not measured and therefore we do not know if there is any worsening or improvement in the size. Will continue Eliquis for now. Patient needs to be on Eliquis for 2 indications including atrial fibrillation and axillary DVT. UTI, sepsis, started on Rocephin, managed by medical team, was on Clindamycin as an outpatient Anemia, mild thrombocytopenia, seen previously by Dr Clifton, Paroxysmal atrial fibrillation, currently in sinus rhythm with APCs and VPCs, monitor blood pressure and heart rate. History of CVA with subsequent dysphasia, worse on 03-17-18, but has improved, mild slurred Speech noted Echo of 03/18/18: LVEF 55-60%, AoV sclerosis w/o stenosis, PASP 30 mmHg No angiographically significant coronary artery disease, normal global left ventricular systolic function with an ejection fraction of approximately 60 to 65%, elevated left ventricular end-diastolic pressure indicative of some degree of diastolic dysfunction of the left ventricle, and no significant mitral regurgitation per cardiac catheterization from 01/06/12 Maturity onset diabetes mellitus. Hypertension, restart home meds and monitor blood pressure response Chronic bilateral leg swelling, likely related to venous insufficiency. Hyperlipidemia, continue to monitor Chronic back pain and degenerative joint disease. Pulmonary artery systolic pressure is estimated to be approximately 40 mmHg per echocardiogram from 08/18/2013, which is unchanged from 2011 Thank you for your consultation. Please call me if you have any questions. Elgin Colvin MD, FACP, FACC, FSCAI, FHRS, CCDS Interventional Cardiology Cardiac Electrophysiology Vascular Medicine and Endovascular Inter[facility] [place] COLVIN MD Apr 08, 2018 8:07 am
--- NOTE | 2018-04-08 08:28 | Diagnostic Imaging Report ---
PROCEDURE: US venous upper extremity left. TECHNIQUE: Multiple realtime grayscale images were obtained of left upper extremity in various projections. Duplex Doppler and and color Doppler images were also obtained. INDICATION: Recent pacemaker placement, complaining of left arm swelling and hematoma. The left interval jugular vein is patent. The proximal subclavian vein appears patent. Mid and lateral subclavian vein was difficult to visualize. A large hematoma is again noted. The axillary vein appears to be patent on today's study. The brachial vein as well as the radial and ulnar veins are patent. No thrombus is seen. No new fluid collection is identified. IMPRESSION: The axillary vein appears to be patent on today's study. No thrombus is identified in the left upper extremity. There continues to be a large hematoma. Dictated by: Dictated on workstation # [id number]
[2018-04-08] MEDS: APIXABAN 5 MG (ELIQUIS) TABLET PO SCH ×2 (08:37→21:06)
[2018-04-08] MEDS: FLUCONAZOLE 200 MG/100 ML 50 ML, EMPTY IV BAG (PVC) 1 EA IV SCH ×2 (08:37)
[2018-04-08] MEDS ORDERED: RT-ALBUTEROL/IPRATROPIUM 3 ML (DUONEB) VIAL INH PRN (09:15)
[2018-04-08] MEDS ORDERED: RT-ALBUTEROL/IPRATROPIUM 3 ML (DUONEB) VIAL INH SCH (10:00)
[2018-04-08] MEDS: RT-ALBUTEROL/IPRATROPIUM 3 ML (DUONEB) VIAL INH SCH ×3 (11:13→18:36)
--- NOTE | 2018-04-08 18:14 | Progress Note (SOAP) ---
Subjective Date Seen by Provider: Apr 08, 2018 Time Seen by Provider: 18:00 Subjective/Events-last exam doing well. decreased left arm swelling. Hb stable. no clinical bleeding. Objective Exam Vital Signs Date Time Temp Pulse Resp B/P (MAP) Pulse Ox O2 Delivery O2 Flow Rate FiO2 04/08/18 16:00 97.5 88 22 138/62 (87) 95 Room Air 04/08/18 14:59 96 Room Air 04/08/18 13:00 80 04/08/18 12:00 98.1 72 18 142/74 (96) 99 Room Air 04/08/18 11:13 95 Room Air 04/08/18 09:05 76 92 04/08/18 09:01 92 Room Air 04/08/18 08:00 97.6 75 18 144/70 (94) 98 Room Air 04/08/18 07:00 75 04/08/18 03:42 97.3 73 18 146/74 (98) 97 Room Air 04/08/18 01:00 74 04/08/18 00:00 97.3 66 20 148/78 (101) 96 Room Air 04/07/18 20:04 98 Room Air 04/07/18 20:00 97.5 77 20 164/82 (109) 97 Room Air 04/07/18 19:31 90 I & O 04/08/18 07:00 Intake Total 1850 ml Output Total 150 ml Balance 1700 ml Capillary Refill : Less Than 3 Seconds General Appearance: No Apparent Distress HEENT: PERRL/EOMI Neck: Full Range of Motion Respiratory: Chest Non Tender, Lungs Clear Cardiovascular: Regular Rate, Rhythm Gastrointestinal: normal bowel sounds, non tender, soft Extremity: Normal Capillary Refill Neurologic/Psychiatric: Alert, Oriented x3 Skin: Normal Color Lymphatic: No Adenopathy Results Lab Laboratory Tests 04/07/18 21:03: Glucometer 181H 04/08/18 05:07: Glucometer 139H 04/08/18 05:26: White Blood Count 4.8, Red Blood Count 2.76L, Hemoglobin 8.1L, Hematocrit 25L, Mean Corpuscular Volume 92, Mean Corpuscular Hemoglobin 29, Mean Corpuscular Hemoglobin Concent 32, Red Cell Distribution Width 16.4H, Platelet Count 132, Mean Platelet Volume 9.9, Neutrophils (%) (Auto) 68, Lymphocytes (%) (Auto) 15, Monocytes (%) (Auto) 10, Eosinophils (%) (Auto) 7, Basophils (%) (Auto) 0, Neutrophils # (Auto) 3.2, Lymphocytes # (Auto) 0.7L, Monocytes # (Auto) 0.5, Eosinophils # (Auto) 0.3, Basophils # (Auto) 0.0 04/08/18 11:20: Glucometer 177H 04/08/18 16:36: Glucometer 197H Microbiology 04/02/18 Blood Culture - Final, Complete No growth 04/05/18 Fungal Culture - Preliminary, Resulted Sent To [facility] 04/02/18 Urine Culture - Final, Complete See Comments Sent To [facility] Assessment/Plan Assessment/Plan Assess & Plan/Chief Complaint anemia with esophageal ulcer and suspected esophageal candidiasis. most likely cause of anemia. also had left chest hematoma and left upper extremity hematoma which may also have contributed to anemia. will monitor. continue protonix and diflucan and diet as nancy. ok for rehab when able. has left chest wall hematoma, left upper extremity edema and DVT however no signs or symptoms compartment sydrome. will recommend ice and elevation. anticoagulation also started today. will continue to monitor. swelling left arm and chest continue to improve. Clinical Quality Measures DVT/VTE Risk/Contraindication: Risk Factor Score Per Nursin RFS Level Per Nursing on Admit: 4+=Very High Contraindications-Pharm: Other *list below* KORY LACY MD Apr 08, 2018 6:14 pm
[2018-04-08] MEDS: ATORVASTATIN 40 MG (LIPITOR) TABLET PO SCH (21:06)
[2018-04-09 00:55] VITALS: BP 118/68
[2018-04-09 04:55] VITALS: BP 110/70
[2018-04-09 04:59] LABS: BASOPHILS % (AUTO) 1 % (0-10); EOSINOPHILS # (AUTO) 0.3 10^3/uL (0.0-0.3); EOSINOPHILS % (AUTO) 6 % (0-10); HEMATOCRIT 24 % (35-52); LYMPHOCYTES # (AUTO) 0.7 X 10^3 (1.0-4.0); LYMPHOCYTES % (AUTO) 16 % (12-44); MEAN CORPUSCULAR HEMOGLOBIN 30 PG (25-34); MEAN CORPUSCULAR HGB CONC 33 G/DL (32-36); MEAN CORPUSCULAR VOLUME 92 FL (80-99); MEAN PLATELET VOLUME 10.1 FL (7.4-10.4); MONOCYTES # (AUTO) 0.4 X 10^3 (0.0-1.0); MONOCYTES % (AUTO) 9 % (0-12); NEUTROPHILS % (AUTO) 69 % (42-75); PLATELET COUNT 129 10^3/uL (130-400); RED BLOOD COUNT 2.63 10^6/uL (4.35-5.85); RED CELL DISTRIBUTION WIDTH 16.6 % (10.0-14.5); WHITE BLOOD COUNT 4.4 10^3/uL (4.3-11.0)
[2018-04-09 05:15] LABS: ALANINE AMINOTRANSFERASE 13 U/L (0-55); ALBUMIN 2.3 GM/DL (3.2-4.5); ALKALINE PHOSPHATASE 52 U/L (40-136); BILIRUBIN,TOTAL 1.9 MG/DL (0.1-1.0); BUN/CREATININE RATIO 25; CALCIUM 8.2 MG/DL (8.5-10.1); CARBON DIOXIDE 27 MMOL/L (21-32); CHLORIDE 111 MMOL/L (98-107); CREATININE SERUM 0.57 MG/DL (0.60-1.30); GFR ESTIMATED > 60; GLUCOSE 152 MG/DL (70-105); POTASSIUM 3.7 MMOL/L (3.6-5.0); SODIUM 143 MMOL/L (135-145); TOTAL PROTEIN 4.6 GM/DL (6.4-8.2)
[2018-04-09] MEDS: RT-ALBUTEROL/IPRATROPIUM 3 ML (DUONEB) VIAL INH SCH ×4 (06:17→19:27)
[2018-04-09] MEDS: PANTOPRAZOLE 40 MG (PROTONIX) TAB PO SCH (06:19)
[2018-04-09 08:00] VITALS: BP 122/58
--- NOTE | 2018-04-09 08:14 | Progress Note (SOAP) ---
Subjective Time Seen by Provider: 08:05 Subjective/Events-last exam Venous Doppler yesterday does not show any thrombus. Patient has a large hematoma there. Patient's left upper arm still has swelling but coming down. Patient does not have a compartment syndrome. Patient's hemoglobin hematocrit stable. Patient doing better Objective Exam Vital Signs Date Time Temp Pulse Resp B/P (MAP) Pulse Ox O2 Delivery O2 Flow Rate FiO2 04/09/18 07:00 88 04/09/18 06:17 97 Room Air 04/09/18 04:55 97.0 70 18 110/70 (83) 99 Room Air 04/09/18 01:00 77 04/09/18 00:55 97.2 77 20 118/68 (85) 97 Room Air 04/08/18 19:56 97.5 88 18 110/66 (81) 95 Room Air 04/08/18 19:00 87 04/08/18 18:36 99 Room Air 04/08/18 16:00 97.5 88 22 138/62 (87) 95 Room Air 04/08/18 14:59 96 Room Air 04/08/18 13:00 80 04/08/18 12:00 98.1 72 18 142/74 (96) 99 Room Air 04/08/18 11:13 95 Room Air 04/08/18 09:05 76 92 04/08/18 09:01 92 Room Air I & O 04/09/18 07:00 Intake Total 1070 ml Balance 1070 ml Capillary Refill : Less Than 3 Seconds General Appearance: No Apparent Distress, WD/WN HEENT: Normal ENT Inspection Neck: Full Range of Motion, Normal Inspection Respiratory: Lungs Clear, No Accessory Muscle Use, No Respiratory Distress Cardiovascular: Regular Rate, Rhythm, No JVD Gastrointestinal: non tender, soft Results Lab Laboratory Tests 04/08/18 18:15 04/09/18 04:45 Laboratory Tests 04/08/18 11:20: Glucometer 177H 04/08/18 16:36: Glucometer 197H 04/08/18 18:15: Hemoglobin 8.6L 04/08/18 20:02: Glucometer 258H 04/09/18 04:45: White Blood Count 4.4, Red Blood Count 2.63L, Hemoglobin 8.0L, Hematocrit 24L, Mean Corpuscular Volume 92, Mean Corpuscular Hemoglobin 30, Mean Corpuscular Hemoglobin Concent 33, Red Cell Distribution Width 16.6H, Platelet Count 129L, Mean Platelet Volume 10.1, Neutrophils (%) (Auto) 69, Lymphocytes (%) (Auto) 16 , Monocytes (%) (Auto) 9, Eosinophils (%) (Auto) 6, Basophils (%) (Auto) 1, Neutrophils # (Auto) 3.0, Lymphocytes # (Auto) 0.7L, Monocytes # (Auto) 0.4, Eosinophils # (Auto) 0.3, Basophils # (Auto) 0.0, Sodium Level 143, Potassium Level 3.7, Chloride Level 111H, Carbon Dioxide Level 27, Anion Gap 5, Blood Urea Nitrogen 14, Creatinine 0.57L, Estimat Glomerular Filtration Rate > 60, BUN /Creatinine Ratio 25, Glucose Level 152H, Calcium Level 8.2L, Corrected Calcium 9.6, Total Bilirubin 1.9H, Aspartate Amino Transf (AST/SGOT) 14, Alanine Aminotransferase (ALT/SGPT) 13, Alkaline Phosphatase 52, Total Protein 4.6L, Albumin 2.3L Microbiology 04/02/18 Blood Culture - Final, Complete No growth 04/05/18 Fungal Culture - Preliminary, Resulted Sent To [facility] 04/02/18 Urine Culture - Final, Complete See Comments Sent To [facility] Assessment/Plan Assessment/Plan Assess & Plan/Chief Complaint Patient doing better. Patient had EGD and colonoscopy today. Anemia. Recent pacemaker insertion due to atrial fibrillation. Diabetes. Dysphagia. Dysarthria. Occult blood of the stools positive. . 04/06/18. Patient alert. Patient has reflux esophagitis stage III. Distal esophagitis ulceration with white plaque for Anabel. Gastritis. Sepsis. UTI. Sick sinus rhythm. Altered mental status resolved. Anemia is lower today than yesterday. Cor peripheral venous circulation. Hypomagnesemia. . 04/07/18. Reflux esophagitis stage III. Distal esophagitis ulceration with white plaques for Anabel. Gastritis. DVT of axillary vein. Large hematoma. Altered mental status resolved. . 04/08/18. Anemia stable. Swelling of left hand and left upper arm less. Patient feeling better. Esophageal ulcer. Esophageal Anabel. PASTOR, and chest and left upper extremity getting better. Low dose developed was started since patient high risk for bleed Diabetes. Recent pacemaker insertion. Recent port insertion. . 04/09/18. Anemia stable. Swelling of the left upper arm decreasing. Patient feeling better. Diabetes. Recent pacemaker insertion. Recent port insertion Clinical Quality Measures Admission Status Admission Dx Acute mental status change. Diabetes. fall. Hyperlipidemia. History of hypertension. Sepsis improving. Patient not a candidate for high-dose fluids. Recent pacemaker dual-chamber inserted. Anemia DVT/VTE Risk/Contraindication: Risk Factor Score Per Nursin RFS Level Per Nursing on Admit: 4+=Very High Contraindications-Pharm: Other *list below* ADEN LEE DO Apr 09, 2018 08:14
--- NOTE | 2018-04-09 09:25 | Cardiology Progress Note ---
Cardiology SOAP Progress Note Subjective: No cardiac complaints. Swelling in left upper extremity has improved significantly. Objective: I&O/Vital Signs 04/09/18 04/09/18 04/09/18 04/09/18 09:27 12:00 13:00 13:25 Temp 97.5 Pulse 85 81 Resp 18 B/P (MAP) 136/62 (86) Pulse Ox 97 99 96 O2 Delivery Room Air Room Air Room Air 04/09/18 04/09/18 04/09/18 04/09/18 16:00 19:08 19:27 20:15 Temp 97.8 98.0 Pulse 84 80 86 Resp 20 20 B/P (MAP) 141/68 (92) 138/60 (86) Pulse Ox 98 97 98 O2 Delivery Room Air Room Air Room Air 04/09/18 00:00 Intake Total 1020 ml Balance 1020 ml Weight (Pounds): 309 Weight (Ounces): 4.8 Weight (Calculated Kilograms): [id number] Constitutional: No appears stated age, No AAO x 3, No apparent distress, No PERRL, No well-developed, No well-nourished, No other Respiratory: chest is bilaterally symmetric, lungs clear to auscultation Cardiovascular: regular rate-rhythm; No irregularly irregular, No extra beats, No parasternal heave is noted, No JVD, No edema, No bradycardia, No tachycardia , No point of maximal impulse, No cardiac thrills are palpable; S1 and S2; No gallop/S3, No gallop/S4, No diastolic murmur, No systolic murmur, No friction rub, No click, No other Gastrointestional: No tender, No soft, No round, No distended, No pulsatile mass, No organomegaly, No guarding, No rebound, No tenderness, No hernia, No mass, No audible bowel sounds, No abnormal bowel sounds, No abdominal bruits, No spleenomegaly, No other Extremities: No normal range of motion, No non-tender, No normal inspection, No pedal edema, No calf tenderness, No normal capillary refill, No pelvis stable , No calf tenderness, No inflammation, No pedal edema, No slow capillary refill ; swelling; No other, No abrasion, No clubbing, No cyanosis; ecchymosis (left upper extremity.); No laceration, No no lower extremity edema bilateral, No significant edema, No tenderness, No wound Neurologic/Psychiatric: no motor/sensory deficits, alert, normal mood/affect, oriented x 3 Skin: No normal color, No warm/dry, No cyanosis, No cool, No diaphoresis, No damp, No ecchymosis, No jaundice, No mottled, No pallor, No rash, No tattoos/ piercings, No ulcerations, No rash on exposed areas, No ulcerations on exposed areas, No other Results/Procedures: Labs Laboratory Tests 04/09/18 04:45: White Blood Count 4.4, Red Blood Count 2.63L, Hemoglobin 8.0L, Hematocrit 24L, Mean Corpuscular Volume 92, Mean Corpuscular Hemoglobin 30, Mean Corpuscular Hemoglobin Concent 33, Red Cell Distribution Width 16.6H, Platelet Count 129L, Mean Platelet Volume 10.1, Neutrophils (%) (Auto) 69, Lymphocytes (%) (Auto) 16 , Monocytes (%) (Auto) 9, Eosinophils (%) (Auto) 6, Basophils (%) (Auto) 1, Neutrophils # (Auto) 3.0, Lymphocytes # (Auto) 0.7L, Monocytes # (Auto) 0.4, Eosinophils # (Auto) 0.3, Basophils # (Auto) 0.0, Sodium Level 143, Potassium Level 3.7, Chloride Level 111H, Carbon Dioxide Level 27, Anion Gap 5, Blood Urea Nitrogen 14, Creatinine 0.57L, Estimat Glomerular Filtration Rate > 60, BUN /Creatinine Ratio 25, Glucose Level 152H, Calcium Level 8.2L, Corrected Calcium 9.6, Total Bilirubin 1.9H, Aspartate Amino Transf (AST/SGOT) 14, Alanine Aminotransferase (ALT/SGPT) 13, Alkaline Phosphatase 52, Total Protein 4.6L, Albumin 2.3L 04/09/18 10:59: Glucometer 174H 04/09/18 16:31: Glucometer 172H 04/09/18 20:27: Glucometer 201H Microbiology 04/02/18 Blood Culture - Final, Complete No growth 04/05/18 Fungal Culture - Preliminary, Resulted Sent To [facility] 04/02/18 Urine Culture - Final, Complete See Comments Sent To [facility] A/P: Assessment/Dx: Admission Diagnosis Sepsis UTI Sick sinus syndrome Change in mental status- improved Anemia Left upper extremity swelling. Plan: Near Syncope, history of syncope with recent pacemaker implant, significant drop in H&H. Dr Jonas and Dr Clifton following. EGD/Colonoscopy: According to my understanding no source of GI bleeding. An esophageal ulcer was noted and biopsies done. Sick sinus syndrome with history of syncope, status post pacemaker implant, site is healing well with no significant site concerns. Left upper extremity swelling/DVT: Left upper extremity ultrasound showed axillary DVT. Upper arm large hematoma also noted. This is a site where a PICC line was placed on 04/02/2018 and removed on 04/03/2018 due to arm swelling and pain. Patient was started on Eliquis. No increase in diameter of left arm. No pain. Palpable pulses. No change in H&H. Repeat ultrasound showed resolution of axillary DVT. However the size of the hematoma is not measured and therefore we do not know if there is any worsening or improvement in the size. Will continue Eliquis for now. Patient needs to be on Eliquis for 2 indications including atrial fibrillation and axillary DVT. UTI, sepsis, started on Rocephin, managed by medical team, was on Clindamycin as an outpatient Anemia, mild thrombocytopenia, seen previously by Dr Clifton, Paroxysmal atrial fibrillation, currently in sinus rhythm with APCs and VPCs, monitor blood pressure and heart rate. History of CVA with subsequent dysphasia, worse on 03-17-18, but has improved, mild slurred Speech noted Echo of 03/18/18: LVEF 55-60%, AoV sclerosis w/o stenosis, PASP 30 mmHg No angiographically significant coronary artery disease, normal global left ventricular systolic function with an ejection fraction of approximately 60 to 65%, elevated left ventricular end-diastolic pressure indicative of some degree of diastolic dysfunction of the left ventricle, and no significant mitral regurgitation per cardiac catheterization from 01/06/12 Maturity onset diabetes mellitus. Hypertension, restart home meds and monitor blood pressure response Chronic bilateral leg swelling, likely related to venous insufficiency. Hyperlipidemia, continue to monitor Chronic back pain and degenerative joint disease. Pulmonary artery systolic pressure is estimated to be approximately 40 mmHg per echocardiogram from 08/18/2013, which is unchanged from 2011 Thank you for your consultation. Please call me if you have any questions. Elgin Colvin MD, FACP, FACC, FSCAI, FHRS, CCDS Interventional Cardiology Cardiac Electrophysiology Vascular Medicine and Endovascular Interventions [place] COLVIN MD Apr 09, 2018 9:25 am
[2018-04-09] MEDS: APIXABAN 5 MG (ELIQUIS) TABLET PO SCH ×2 (09:29→20:40)
[2018-04-09] MEDS: FLUCONAZOLE 200 MG/100 ML 50 ML, EMPTY IV BAG (PVC) 1 EA IV SCH ×2 (09:29)
--- NOTE | 2018-04-09 11:05 | Physical Therapy Evaluation ---
PT Evaluation-General Medical Diagnosis Admission Date Apr 02, 2018 at 05:20 Medical Diagnosis: Confusion, fall Onset Date: Apr 02, 2018 Therapy Diagnosis Therapy Diagnosis: weakness; abn gait Height/Weight Height (Feet): 5 Height (Inches): 8.00 Weight (Pounds): 309 Weight (Ounces): 4.8 Precautions Precautions/Isolations: Fall Prevention, Standard Precautions Referral Physician: Dana Reason for Referral: Evaluation/Treatment Medical History Pertinent Medical History: Atrial Fib, CVA, DM, GERD, HTN Additional Medical History Obesity, recent pacemaker placement. Current History Pt admitted to acute on 04/02/18 after fall at [facility] and unable to get up. She had recently discharged from ARU at this facility due to recent CVA. She has been on acute for several days with multiple medical complications and has recently had a pacemaker placed. Pt referred to PT for functional strengthening. Reviewed History: Yes Social History Home: Assisted Living Current Living Status: Entry Into Home: Level Entry Prior/Core FIM Prior Level of Function Functional [place] Measure 0=Not Assessed/NA 4=Minimal Assistance 1=Total Assistance 5=Supervision or Setup 2=Maximal Assistance 6=Modified [place] 3=Moderate Assistance 7=Complete [place] Bed Mobility: 0 (pt sleeps in a recliner at [facility]) Transfers (B,C,W/C) (FIM): 6 Gait: 6 Pt is mod indep at her [facility]; reports she walks frequently for exercise. PT Evaluation-Current Subjective Agreeable to PT. Pt reports she is weak. "I'll probably have to go back downstairs." (ARU) Objective Patient Orientation: Person, Place, Time, Situation Problem Solving: Fair ROM/Strength ROM Lower Extremities Limited but functional for her mobility needs. Strength Lower Extremities grossly 3/5 throughout; B LE weakness noted. Integumentary/Posture Integumentary Bruising noted. Refer to nursing notes Bowel Incontinence: No Bladder Incontinence: Yes Posture symmetrical; slightly rounded shoulders. Neuromuscular (Tone, Coordination, Reflexes) intact and functional Sensory Vision: Wears Glasses Hearing: Functional Hand Dominance: Right Sensation Right Lower Extremit: Intact Sensation Left Lower Extremity: Intact Transfers Functional [place] Measure 0=Not Assessed/NA 4=Minimal Assistance 1=Total Assistance 5=Supervision or Setup 2=Maximal Assistance 6=Modified [place] 3=Moderate Assistance 7=Complete [place] Sit to/from Stand: 3 (mod assist to stand with skilled cues for sequencing. Required more than 1 attempt to get upright.) Gait Mode of Locomotion: Walk Anticipated Mode of Locomotion: Walk Gait (FIM): 2 Distance (FIM): 4=997-41 ft Distance: 100 ft Gait Level of Assist: 4 (CGA for safety) Gait Assistive Device: FWW Comments/Gait Description slow gait with decreased step length; wide BRUNO; slightly unsteady due to functional LE weaknes.s Balance Sitting Static: Good Sitting Dynamic: Good Standing Static: Fair Standing Dynamic: Fair Assessment/Needs Pt presents with decreased functional mobility due to weakness and balance deficits associated with a lengthy hospital stay. She will benefit from skilled PT intervention to work on strength and mobility to allow her to return home as before. Rehab Potential: Good PT Correction Goals Dispatcher Service Goals PT Correction Goals Time Frame: Apr 16, 2018 Transfers (B,C,W/C) (FIM): 6 Gait (FIM): 6 Gait Assistive Device: FWW PT Plan Problem List Problem List: Activity Tolerance, Functional Strength, Safety, Balance, Gait, Transfer Treatment/Plan Treatment Plan: Continue Plan of Care Treatment Plan: Bed Mobility, Education, Functional Activity Mary Ann, Functional Strength, Gait, Safety, Therapeutic Exercise, Transfers Treatment Duration: Apr 16, 2018 Frequency: 6 times per week Estimated Hrs Per Day: .5 hour per day Patient and/or Family Agrees t: Yes Safety Risks/Education Patient Education: Transfer Techniques, Safety Issues Teaching Recipient: Patient Teaching Methods: Discussion Response to Teaching: Reinforcement Needed Time/GCodes Time In: 1040 Time Out: 1105 Total Billed Treatment Time: 25 Total Billed Treatment visit EVM 25 MICHAELA ARRIAZA PT Apr 09, 2018 11:05
--- NOTE | 2018-04-09 11:52 | Progress Note (SOAP) ---
Subjective Date Seen by Provider: Apr 09, 2018 Time Seen by Provider: 11:30 Subjective/Events-last exam doing well. decreased left arm swelling. Hb stable. ambulating better. tolerating diet. Objective Exam Vital Signs Date Time Temp Pulse Resp B/P (MAP) Pulse Ox O2 Delivery O2 Flow Rate FiO2 04/09/18 09:27 97 Room Air 04/09/18 09:00 Room Air 04/09/18 08:00 97.3 92 18 122/58 (79) 95 Room Air 04/09/18 07:00 88 04/09/18 06:17 97 Room Air 04/09/18 04:55 97.0 70 18 110/70 (83) 99 Room Air 04/09/18 01:00 77 04/09/18 00:55 97.2 77 20 118/68 (85) 97 Room Air 04/08/18 19:56 97.5 88 18 110/66 (81) 95 Room Air 04/08/18 19:00 87 04/08/18 18:36 99 Room Air 04/08/18 16:00 97.5 88 22 138/62 (87) 95 Room Air 04/08/18 14:59 96 Room Air 04/08/18 13:00 80 04/08/18 12:00 98.1 72 18 142/74 (96) 99 Room Air I & O 04/09/18 07:00 Intake Total 1170 ml Balance 1170 ml Capillary Refill : Less Than 3 Seconds General Appearance: No Apparent Distress HEENT: PERRL/EOMI Neck: Full Range of Motion Respiratory: Chest Non Tender, Lungs Clear Cardiovascular: Regular Rate, Rhythm Gastrointestinal: normal bowel sounds, non tender, soft Extremity: Normal Capillary Refill, Swelling Neurologic/Psychiatric: Alert, Oriented x3 Skin: Normal Color Lymphatic: No Adenopathy Results Lab Laboratory Tests 04/08/18 16:36: Glucometer 197H 04/08/18 18:15: Hemoglobin 8.6L 04/08/18 20:02: Glucometer 258H 04/09/18 04:45: Hemoglobin 8.0L, White Blood Count 4.4, Red Blood Count 2.63L, Hematocrit 24L, Mean Corpuscular Volume 92, Mean Corpuscular Hemoglobin 30, Mean Corpuscular Hemoglobin Concent 33, Red Cell Distribution Width 16.6H, Platelet Count 129L, Mean Platelet Volume 10.1, Neutrophils (%) (Auto) 69, Lymphocytes (%) (Auto) 16 , Monocytes (%) (Auto) 9, Eosinophils (%) (Auto) 6, Basophils (%) (Auto) 1, Neutrophils # (Auto) 3.0, Lymphocytes # (Auto) 0.7L, Monocytes # (Auto) 0.4, Eosinophils # (Auto) 0.3, Basophils # (Auto) 0.0, Sodium Level 143, Potassium Level 3.7, Chloride Level 111H, Carbon Dioxide Level 27, Anion Gap 5, Blood Urea Nitrogen 14, Creatinine 0.57L, Estimat Glomerular Filtration Rate > 60, BUN /Creatinine Ratio 25, Glucose Level 152H, Calcium Level 8.2L, Corrected Calcium 9.6, Total Bilirubin 1.9H, Aspartate Amino Transf (AST/SGOT) 14, Alanine Aminotransferase (ALT/SGPT) 13, Alkaline Phosphatase 52, Total Protein 4.6L, Albumin 2.3L 04/09/18 10:59: Glucometer 174H Microbiology 04/02/18 Blood Culture - Final, Complete No growth 04/05/18 Fungal Culture - Preliminary, Resulted Sent To [facility] 04/02/18 Urine Culture - Final, Complete See Comments Sent To [facility] Assessment/Plan Assessment/Plan Assess & Plan/Chief Complaint anemia with esophageal ulcer and suspected esophageal candidiasis. most likely cause of anemia. also had left chest hematoma and left upper extremity hematoma which may also have contributed to anemia. will monitor. continue protonix and diflucan and diet as nancy. ok for rehab when able. has left chest wall hematoma, left upper extremity edema and DVT however no signs or symptoms compartment sydrome. will recommend ice and elevation. anticoagulation also started today. will continue to monitor. swelling left arm and chest continue to improve. OK for rehab when able. Clinical Quality Measures DVT/VTE Risk/Contraindication: Risk Factor Score Per Nursin RFS Level Per Nursing on Admit: 4+=Very High Contraindications-Pharm: Other *list below* KORY LACY MD Apr 09, 2018 11:52 am
[2018-04-09 12:00] VITALS: BP 136/62
--- NOTE | 2018-04-09 15:31 | Occupational Therapy Eval ---
OT Evaluation-General/PLF Medical Diagnosis Admission Date Apr 02, 2018 at 05:20 Medical Diagnosis: Confusion, fall Onset Date: Apr 02, 2018 Therapy Diagnosis Therapy Diagnosis: decr self care, weakness,decr funct mobility, decr act nancy Height/Weight Height (Feet): 5 Height (Inches): 8.00 Weight (Pounds): 309 Weight (Ounces): 4.8 Precautions Precautions/Isolations: Fall Prevention, Standard Precautions Safety Interventions: Reorient-PRN Referral Physician: Dana Referral Reason: Evaluation/Treatment Medical History Pertinent Medical History: Atrial Fib, Arthritis, CVA, DM, GERD, HTN, OA Additional Medical History Bilat total knees. Nava filter. L shoulder surgery. Current History Pt admitted to acute on 04/02/18 after fall at [facility] and unable to get up. She had recently discharged from ARU at this facility due to recent CVA. She has been on acute for several days with multiple medical complications and has recently had a pacemaker placed. DVT L UE, hematoma Social History Home: Assisted Living ([facility]) Current Living Status: Entry Into Home: Level Entry ADL-Prior Level of Function ADL PLOF Comments Pt has been able to manage her basic self care at [facility] and takes herself to meals. Uses FWW for mobility DME/Equipment: Bath Chair, Grab Bars, Tub/Shower Drive Self: No OT Current Status Subjective Pt seen in room, up in recliner, agreeable to OT. pain reported 0/10 Appearance Alert, cooperative Mental Status/Objective Patient Orientation: Person, Place, Time, Situation Attachments: IV Current Glasses/Contacts: Yes Hearing Aids: No Hand Dominance: Right Upper Extremity ROM Grossly limited to approx 90 degrees at shoulders. End ranges range limited by edema Upper Extremity Strength Grossly 4/5 bilat Edema: Significiant edema bilat UEs ADL-Treatment ADL-Current Pt reported that she has been up to use BSC or toilet. Transferred mod assist with PT and walked 100' with CGA, FWW. has been able to feed herself. Anticipate transfer to ARU on Thursday Functional [place] Measure 0=Not Assessed/NA 4=Minimal Assistance 1=Total Assistance 5=Supervision or Setup 2=Maximal Assistance 6=Modified [place] 3=Moderate Assistance 7=Complete IndependenceIRFPAI Quality Coding Scale 6 Independent with activity with or without an assistive device 5 Patient requires set up or clean up by helper. Patient completes activity by themselves 4 Supervision or touching assist (CGA). [place] provide cues , steadying assist 3 The helper provides less than half the effort to complete the activity 2 The helper provides more than half the effort to complete the activity 1 Dependent. The helper does all the effort to complete an activity 7 Patient refused to complete or attempt activity 9 The patient did not perform the activity before the current illness or injury 88 Not attempted due to Medical conditions or safety concerns Education OT Patient Education: Purpose of tx/functional activities, Rehab process Teaching Recipient: Patient Teaching Methods: Discussion Response to Teaching: Verbalize Understanding OT Junior Systems Engineer Goals Retirement Goals Time Frame: Apr 30, 2018 Eating (FIM): 6 Grooming(FIM): 6 Bathing(FIM): 6 Upper Body Dressing(FIM): 6 Lower Body Dressing(FIM): 6 Toileting(FIM): 6 Toilet/Commode Transfer(FIM): 6 Tub Transfer(FIM): 6 Shower Transfer(FIM): 6 Additional Goals: 1-Demonstrate ADL Tasks, 2-Verbalize Understanding, 3- ImproveStrength/Mary Ann 1=Demonstrate adherence to instructed precautions during ADL tasks. 2=Patient will verbalize/demonstrate understanding of assistive devices/ modifications for ADL. 3=Patient will improve strength/tolerance for activity to enable patient to perform ADL's. OT Education/Plan Problem List/Assessment Assessment: Decreased Activ Tolerance, Decreased UE Strength, Dependent Transfers, Impaired Self-Care Skills Pt would benefit from skilled OT to increase her independence in basic self care Discharge Recommendations Plan/Recommendations: Continue POC Treatment Plan/Plan of Care Treatment,Training & Education: Yes Patient would benefit from OT for education, treatment and training to promote independence in ADL's, mobility, safety and/or upper extremity function for ADL' s. Plan of Care: ADL Retraining, Functional Mobility, UE Funct Exercise/Act, UE Neuromus Re-Ed/Coord Treatment Duration: Apr 30, 2018 Frequency: 5 times per week Estimated Hrs Per Day: .5 hour per day Agreement: Yes Rehab Potential: Good Time/GCodes Start Time: 14:23 Stop Time: 14:33 Total Time Billed (hr/min): 10 Billed Treatment Time visit, 10 minutes evaluation moderate intensity JANNET COREY OT Apr 09, 2018 15:31
[2018-04-09 16:00] VITALS: BP 141/68
[2018-04-09 20:15] VITALS: BP 138/60
[2018-04-09] MEDS: ATORVASTATIN 40 MG (LIPITOR) TABLET PO SCH (20:40)
[2018-04-10 00:30] VITALS: BP 157/70
[2018-04-10 04:00] VITALS: BP 157/67
[2018-04-10] MEDS: PANTOPRAZOLE 40 MG (PROTONIX) TAB PO SCH (06:03)
[2018-04-10 07:33] LABS: BUN/CREATININE RATIO 23; CALCIUM 8.1 MG/DL (8.5-10.1); CARBON DIOXIDE 25 MMOL/L (21-32); CHLORIDE 110 MMOL/L (98-107); GFR ESTIMATED > 60; GLUCOSE 117 MG/DL (70-105); POTASSIUM 3.8 MMOL/L (3.6-5.0); SODIUM 142 MMOL/L (135-145)
[2018-04-10] MEDS: RT-ALBUTEROL/IPRATROPIUM 3 ML (DUONEB) VIAL INH SCH ×3 (07:46→18:44)
[2018-04-10 08:00] VITALS: BP 150/60
[2018-04-10] MEDS: FLUCONAZOLE 200 MG/100 ML 50 ML, EMPTY IV BAG (PVC) 1 EA IV SCH ×2 (09:07)
[2018-04-10] MEDS: APIXABAN 5 MG (ELIQUIS) TABLET PO SCH ×2 (09:07→20:17)
--- NOTE | 2018-04-10 10:08 | Physical Therapy Daily Note ---
PT Daily Note-Current Subjective Pt. up in chair, agrees to therapy. She has no c/o pain. Mental Status Patient Orientation: Person, Place, Time, Situation Transfers Functional [place] Measure 0=Not Assessed/NA 4=Minimal Assistance 1=Total Assistance 5=Supervision or Setup 2=Maximal Assistance 6=Modified [place] 3=Moderate Assistance 7=Complete IndependenceIRFPAI Quality Coding Scale 6 Independent with activity with or without an assistive device 5 Patient requires set up or clean up by helper. Patient completes activity by themselves 4 Supervision or touching assist (CGA). [place] provide cues , steadying assist 3 The helper provides less than half the effort to complete the activity 2 The helper provides more than half the effort to complete the activity 1 Dependent. The helper does all the effort to complete an activity 7 Patient refused to complete or attempt activity 9 The patient did not perform the activity before the current illness or injury 88 Not attempted due to Medical conditions or safety concerns Transfers (B, C, W/C) (FIM): 3 Sit to/from Stand: 3 Gait Training Gait (FIM): 2 Distance (FIM): 9=295-60 ft Distance: 100 ft Gait Level of Assist: 4 Gait Persons Needed: 1 Gait Assistive Device: FWW slow gait speed and fatigues quickly, she c/o mild SOA post session. Assessment Current Status: Fair Progress Pt. fatigues very quickly with gait training and needed mod A today to rise from chair. Pt. returned to bedside chair post session with LE's elevated and all needs met. PT Environmental Designer Goals Environmental Designer Goals PT Alf Goals Time Frame: Apr 16, 2018 Transfers (B,C,W/C) (FIM): 6 Gait (FIM): 6 Gait Assistive Device: FWW PT Plan Treatment/Plan Treatment Plan: Continue Plan of Care Treatment Plan: Bed Mobility, Education, Functional Activity Mary Ann, Functional Strength, Gait, Safety, Therapeutic Exercise, Transfers Treatment Duration: Apr 16, 2018 Frequency: 6 times per week Estimated Hrs Per Day: .5 hour per day Patient and/or Family Agrees t: Yes Time/GCodes Time In: 840 Time Out: 0855 Total Billed Treatment Time: 15 Total Billed Treatment 1, GT 15' CHARISSA PULLIAM PT Apr 10, 2018 10:08
--- NOTE | 2018-04-10 10:28 | Progress Note-Hospitalist ---
Subjective HPI/CC On Admission Date Seen by Provider: Apr 10, 2018 Time Seen by Provider: 11:15 Per staff patient is little more alert this morning. Expressive aphasia reportedly chronic does make communication difficult. Her daughter was present at the bedside and felt she was doing much better [facility]. She appears to be in no acute distress can answer in 1 or 2 word answers and denies shortness of breath chest pain nausea or abdominal pain. Subjective/Events-last exam Patient is sitting up in a chair remembers that I have 2 stepsons. She knows she is going to rehabilitation tomorrow and is anxious to get stronger. She says that she walked yesterday and today and is weak but doing better. No complaints regarding her left arm. She notes her bowels are moving well. Objective Exam Vital Signs Vital Signs Date Time Temp Pulse Resp B/P (MAP) Pulse Ox O2 Delivery O2 Flow Rate FiO2 04/11/18 08:00 97.4 80 18 136/60 (85) 98 Room Air 04/05/18 08:41 21 Capillary Refill : Less Than 3 Seconds General Appearance: No Apparent Distress, Chronically ill HEENT: Normal ENT Inspection Neck: Normal Inspection Respiratory: Lungs Clear, Normal Breath Sounds, No Accessory Muscle Use, No Respiratory Distress Cardiovascular: Regular Rate, Rhythm, No Gallop, Systolic Murmur Gastrointestinal: Normal Bowel Sounds, Non Tender, Soft Back: Normal Inspection, No CVA Tenderness, No Vertebral Tenderness Neurologic/Psychiatric: Alert, Oriented x3, Normal Mood/Affect Skin: Pallor Results/Procedures Lab Laboratory Tests 04/11/18 06:05 Patient resulted labs reviewed. Assessment/Plan Assessment and Plan Assess & Plan/Chief Complaint mental status changes secondary to sepsis from UTI axillary DVT left arm with large hematoma improving Anemia currently stable-Hemoccult positive stools, s/p post EGD and colonoscopy with esophageal ulcer identified History of sick sinus syndrome status post pacemaker Weakness and dyspnea plan for rehabilitation tomorrow Anabel esophagitis with esophageal ulcer Hx CVA Critical Care Critical Care: Critically Ill Patient Clinical Quality Measures DVT/VTE Risk/Contraindication: Risk Factor Score Per Nursin RFS Level Per Nursing on Admit: 4+=Very High Contraindications-Pharm: Other *list below* ROLA VERA MD Apr 10, 2018 10:28
[2018-04-10 12:00] VITALS: BP 146/54
--- NOTE | 2018-04-10 15:11 | Cardiology Progress Note ---
Cardiology SOAP Progress Note Subjective: Significant improvement in left upper extremity swelling. Objective: I&O/Vital Signs 04/10/18 04/10/18 04/10/18 04/10/18 04:00 07:00 07:47 08:00 Temp 97.0 97.2 Pulse 18 71 73 Resp 18 18 B/P (MAP) 157/67 (97) 150/60 (90) Pulse Ox 99 98 98 O2 Delivery Room Air Room Air Room Air 04/10/18 04/10/18 04/10/18 04/10/18 10:58 11:00 12:00 13:00 Temp 97.2 Pulse 77 74 86 Resp 18 B/P (MAP) 146/54 (84) Pulse Ox 98 98 98 O2 Delivery Room Air Room Air 04/10/18 00:00 Intake Total 810 ml Balance 810 ml Weight (Pounds): 303 Weight (Ounces): 3.0 Weight (Calculated Kilograms): 137.922476 Constitutional: No appears stated age, No AAO x 3, No apparent distress, No PERRL, No well-developed, No well-nourished, No other Respiratory: chest is bilaterally symmetric, lungs clear to auscultation Cardiovascular: regular rate-rhythm; No irregularly irregular, No extra beats, No parasternal heave is noted, No JVD, No edema, No bradycardia, No tachycardia , No point of maximal impulse, No cardiac thrills are palpable; S1 and S2; No gallop/S3, No gallop/S4, No diastolic murmur, No systolic murmur, No friction rub, No click, No other Gastrointestional: No tender, No soft, No round, No distended, No pulsatile mass, No organomegaly, No guarding, No rebound, No tenderness, No hernia, No mass, No audible bowel sounds, No abnormal bowel sounds, No abdominal bruits, No spleenomegaly, No other Extremities: No normal range of motion, No non-tender, No normal inspection, No pedal edema, No calf tenderness, No normal capillary refill, No pelvis stable , No calf tenderness, No inflammation, No pedal edema, No slow capillary refill ; swelling; No other, No abrasion, No clubbing, No cyanosis; ecchymosis (left upper extremity.); No laceration, No no lower extremity edema bilateral, No significant edema, No tenderness, No wound Neurologic/Psychiatric: no motor/sensory deficits, alert, normal mood/affect, oriented x 3 Skin: No normal color, No warm/dry, No cyanosis, No cool, No diaphoresis, No damp, No ecchymosis, No jaundice, No mottled, No pallor, No rash, No tattoos/ piercings, No ulcerations, No rash on exposed areas, No ulcerations on exposed areas, No other Results/Procedures: Labs Laboratory Tests 04/09/18 16:31: Glucometer 172H 04/09/18 20:27: Glucometer 201H 04/10/18 06:01: Hemoglobin 8.4L, Sodium Level 142, Potassium Level 3.8, Chloride Level 110H, Carbon Dioxide Level 25, Anion Gap 7, Blood Urea Nitrogen 14, Creatinine 0.60, Estimat Glomerular Filtration Rate > 60, BUN/Creatinine Ratio 23, Glucose Level 117H, Calcium Level 8.1L 04/10/18 07:03: Glucometer 125H 04/10/18 11:07: Glucometer 196H Microbiology 04/02/18 Blood Culture - Final, Complete No growth 04/05/18 Fungal Culture - Preliminary, Resulted Sent To [facility] 04/02/18 Urine Culture - Final, Complete See Comments Sent To [facility] A/P: Assessment/Dx: Admission Diagnosis Sepsis UTI Sick sinus syndrome Change in mental status- improved Anemia Left upper extremity swelling. Plan: Near Syncope, history of syncope with recent pacemaker implant, significant drop in H&H. Dr Jonas and Dr Clifton following. EGD/Colonoscopy: According to my understanding no source of GI bleeding. An esophageal ulcer was noted and biopsies done. Sick sinus syndrome with history of syncope, status post pacemaker implant, site is healing well with no significant site concerns. Left upper extremity swelling/DVT: Left upper extremity ultrasound showed axillary DVT. Upper arm large hematoma also noted. This is a site where a PICC line was placed on 04/02/2018 and removed on 04/03/2018 due to arm swelling and pain. Patient was started on Eliquis. No increase in diameter of left arm. No pain. Palpable pulses. No change in H&H. Repeat ultrasound showed resolution of axillary DVT. However the size of the hematoma is not measured and therefore we do not know if there is any worsening or improvement in the size. Will continue Eliquis for now. Patient needs to be on Eliquis for 2 indications including atrial fibrillation and axillary DVT. UTI, sepsis, started on Rocephin, managed by medical team, was on Clindamycin as an outpatient Anemia, mild thrombocytopenia, seen previously by Dr Clifton, Paroxysmal atrial fibrillation, currently in sinus rhythm with APCs and VPCs, monitor blood pressure and heart rate. History of CVA with subsequent dysphasia, worse on 03-17-18, but has improved, mild slurred Speech noted Echo of 03/18/18: LVEF 55-60%, AoV sclerosis w/o stenosis, PASP 30 mmHg No angiographically significant coronary artery disease, normal global left ventricular systolic function with an ejection fraction of approximately 60 to 65%, elevated left ventricular end-diastolic pressure indicative of some degree of diastolic dysfunction of the left ventricle, and no significant mitral regurgitation per cardiac catheterization from 01/06/12 Maturity onset diabetes mellitus. Hypertension, restart home meds and monitor blood pressure response Chronic bilateral leg swelling, likely related to venous insufficiency. Hyperlipidemia, continue to monitor Chronic back pain and degenerative joint disease. Pulmonary artery systolic pressure is estimated to be approximately 40 mmHg per echocardiogram from 08/18/2013, which is unchanged from 2011 Thank you for your consultation. Please call me if you have any questions. Elgin Colvin MD, FACP, FACC, FSCAI, FHRS, CCDS Interventional Cardiology Cardiac Electrophysiology Vascular Medicine and Endovascular Interventions [place] MD Apr 10, 2018 3:11 pm
[2018-04-10 15:30] VITALS: BP 110/62
[2018-04-10 19:42] VITALS: BP 120/74
[2018-04-10] MEDS: ATORVASTATIN 40 MG (LIPITOR) TABLET PO SCH (20:17)
[2018-04-11] VITALS: BP 132/52
[2018-04-11 04:00] VITALS: BP 137/64
[2018-04-11] MEDS: PANTOPRAZOLE 40 MG (PROTONIX) TAB PO SCH (06:09)
[2018-04-11] MEDS: RT-ALBUTEROL/IPRATROPIUM 3 ML (DUONEB) VIAL INH SCH (07:01)
[2018-04-11 08:00] VITALS: BP 136/60
[2018-04-11] MEDS: APIXABAN 5 MG (ELIQUIS) TABLET PO SCH (08:17)
[2018-04-11] MEDS: FLUCONAZOLE 200 MG/100 ML 50 ML, EMPTY IV BAG (PVC) 1 EA IV SCH ×2 (08:17)
--- NOTE | 2018-04-11 12:00 | Discharge Summary-Hospitalist ---
Diagnosis/Chief Complaint Date of Admission Apr 02, 2018 at 05:20 Date of Discharge April 11, 2018 1500 Discharge Date: Apr 11, 2018 Discharge Time: 15:00 Admission Diagnosis Acute mental status change. Diabetes. fall. Hyperlipidemia. History of hypertension. Sepsis improving. Patient not a candidate for high-dose fluids. Recent pacemaker dual-chamber inserted. Anemia Discharge Diagnosis Sepsis secondary to UTI Near Syncope, history of syncope with recent pacemaker implant, significant drop in H&H. esophageal ulcer Candidiasis esophagitis. Sick sinus syndrome with history of syncope, status post pacemaker implant axillary DVT. Upper arm large hematoma also noted. 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 Hypertension Chronic bilateral leg swelling, likely related to venous insufficiency. Hyperlipidemia Chronic back pain and degenerative joint disease. Discharge Summary Discharge Physical Exam Allergies: Coded Allergies: Penicillins (Unverified Allergy, Unknown, 04/11/18) codeine (Unverified Allergy, Unknown, 04/11/18) aspirin (Verified Adverse Reaction, Unknown, NAUSEA, 04/11/18) Vitals & I&Os Vital Signs Date Time Temp Pulse Resp B/P (MAP) Pulse Ox O2 Delivery O2 Flow Rate FiO2 04/11/18 08:00 97.4 80 18 136/60 (85) 98 Room Air 04/05/18 08:41 21 General Appearance: Alert, Oriented X3, Cooperative Respiratory: Clear to Auscultation, Normal Air Movement Cardiovascular: Regular Rate, Normal S1, Normal S2 Abdominal: Normal Bowel Sounds, Soft Extremities: Other (Lymphedema ecchymosis) Skin: Other ( and swelling of the whole left armemesis ) Psych/Mental Status: Mental Status NL (dorm ) Hospital Course Patient was admitted with sepsis secondary to UTI and mental status changes. The patient was not hypotensive and therefore required no aggressive fluid resuscitation At a previous CVA and seemed as if she was extending the CVA however her slurring of speech resolved and she returned to baseline. The patient had developed a DVT in her left axilla with subsequent severe edema this was followed closely by surgery but there was no compartment syndrome that developed. There is a large amount of ecchymosis there as well. Oncology saw the patient for persistent thrombocytopenia. This has remained stable. Because of the recent pacemaker insertion for syncope cardiology was consult it and recommended no change in treatment. She is transferred to rehabilitation for continued physical therapy treatment of the lymphedema and upper arm in stable condition Labs (last 24 hrs) Laboratory Tests 04/10/18 21:05: Glucometer 192H 04/11/18 06:05: Hemoglobin 8.4L 04/11/18 06:08: Glucometer 120H 04/11/18 11:09: Glucometer 161H Microbiology 04/02/18 Blood Culture - Final, Complete No growth 04/05/18 Fungal Culture - Preliminary, Resulted Sent To [facility] 04/02/18 Urine Culture - Final, Complete See Comments Sent To [facility] Patient resulted labs reviewed. Pending Labs Laboratory Tests 04/11/18 11:09: Glucometer 161 Discussion & Recommendations Discharge Planning: >30 minutes discharge planning Discharge Home Medications: Active Scripts Active Eliquis (Apixaban) 5 Mg Tablet 5 Mg PO BID 30 Days TAKE 2 TABLETS BID X 7 DAYS, THEN 1 TABLET BID Clindamycin HCl 300 Mg Capsule 300 Mg PO TID 5 Days Reported Lisinopril 10 Mg Tablet 10 Mg PO DAILY Atorvastatin Calcium 40 Mg Tablet 40 Mg PO HS Toviaz (Fesoterodine Fumarate) 4 Mg Tab.sr.24h 4 Mg PO DAILY Omeprazole 40 Mg Capsule.dr 40 Mg PO DAILY Micardis (Telmisartan) 80 Mg Tablet 80 Mg PO DAILY Metformin HCl 500 Mg Tablet 500 Mg PO BID Fish Oil 1,200 mg Fish Oil (Fish Oil/Dha/Epa) 1 Each Capsule 1,200 Mg PO BID Ocuvite Adult 50 Plus Softgel (C,E,Zinc,Copper 11/Droqh2i/Lut) 1 Each Capsule 1 Cap PO DAILY Condition at discharge Stable Instructions to patient/family Please see electronic discharge instructions given to patient. Clinical Quality Measures DVT/VTE Risk/Contraindication: Risk Factor Score Per Nursin RFS Level Per Nursing on Admit: 4+=Very High Contraindications-Pharm: Other *list below* Copy Copies To 1: ADEN LEE KATHLEEN M MD Apr 11, 2018 12:00
--- NOTE | 2018-04-11 13:57 | Cardiology Progress Note ---
Cardiology SOAP Progress Note Subjective: No cardiac symptoms. Improved left upper extremity swelling. Objective: I&O/Vital Signs 04/11/18 04/11/18 04/11/18 04/11/18 04:00 07:00 07:01 08:00 Temp 97.1 97.4 Pulse 76 71 80 Resp 20 18 B/P (MAP) 137/64 (88) 136/60 (85) Pulse Ox 97 97 98 O2 Delivery Room Air Room Air Room Air 04/11/18 00:00 Intake Total 1390 ml Output Total 50 ml Balance 1340 ml Weight (Pounds): 316 Weight (Ounces): 3.0 Weight (Calculated Kilograms): 143.246307 Constitutional: No appears stated age, No AAO x 3, No apparent distress, No PERRL, No well-developed, No well-nourished, No other Respiratory: chest is bilaterally symmetric, lungs clear to auscultation Cardiovascular: regular rate-rhythm; No irregularly irregular, No extra beats, No parasternal heave is noted, No JVD, No edema, No bradycardia, No tachycardia , No point of maximal impulse, No cardiac thrills are palpable; S1 and S2; No gallop/S3, No gallop/S4, No diastolic murmur, No systolic murmur, No friction rub, No click, No other Gastrointestional: No tender, No soft, No round, No distended, No pulsatile mass, No organomegaly, No guarding, No rebound, No tenderness, No hernia, No mass, No audible bowel sounds, No abnormal bowel sounds, No abdominal bruits, No spleenomegaly, No other Extremities: No normal range of motion, No non-tender, No normal inspection, No pedal edema, No calf tenderness, No normal capillary refill, No pelvis stable , No calf tenderness, No inflammation, No pedal edema, No slow capillary refill ; swelling; No other, No abrasion, No clubbing, No cyanosis; ecchymosis (left upper extremity.); No laceration, No no lower extremity edema bilateral, No significant edema, No tenderness, No wound Neurologic/Psychiatric: no motor/sensory deficits, alert, normal mood/affect, oriented x 3 Skin: No normal color, No warm/dry, No cyanosis, No cool, No diaphoresis, No damp, No ecchymosis, No jaundice, No mottled, No pallor, No rash, No tattoos/ piercings, No ulcerations, No rash on exposed areas, No ulcerations on exposed areas, No other Results/Procedures: Labs Laboratory Tests 04/10/18 15:37: Glucometer 258H 04/10/18 21:05: Glucometer 192H 04/11/18 06:05: Hemoglobin 8.4L 04/11/18 06:08: Glucometer 120H 04/11/18 11:09: Glucometer 161H Microbiology 04/02/18 Blood Culture - Final, Complete No growth 04/05/18 Fungal Culture - Preliminary, Resulted Sent To [facility] 04/02/18 Urine Culture - Final, Complete See Comments Sent To [facility] A/P: Assessment/Dx: Admission Diagnosis Sepsis UTI Sick sinus syndrome Change in mental status- improved Anemia Left upper extremity swelling. Plan: Near Syncope, history of syncope with recent pacemaker implant, significant drop in H&H. Dr Jonas and Dr Clifton following. EGD/Colonoscopy: According to my understanding no source of GI bleeding. An esophageal ulcer was noted and biopsies done. Sick sinus syndrome with history of syncope, status post pacemaker implant, site is healing well with no significant site concerns. Left upper extremity swelling/DVT: Left upper extremity ultrasound showed axillary DVT. Upper arm large hematoma also noted. This is a site where a PICC line was placed on 04/02/2018 and removed on 04/03/2018 due to arm swelling and pain. Patient was started on Eliquis. No increase in diameter of left arm. No pain. Palpable pulses. No change in H&H. Repeat ultrasound showed resolution of axillary DVT. However the size of the hematoma is not measured and therefore we do not know if there is any worsening or improvement in the size. Will continue Eliquis for now. Patient needs to be on Eliquis for 2 indications including atrial fibrillation and axillary DVT. UTI, sepsis, started on Rocephin, managed by medical team, was on Clindamycin as an outpatient Anemia, mild thrombocytopenia, seen previously by Dr Clifton, Paroxysmal atrial fibrillation, currently in sinus rhythm with APCs and VPCs, monitor blood pressure and heart rate. History of CVA with subsequent dysphasia, worse on 03-17-18, but has improved, mild slurred Speech noted Echo of 03/18/18: LVEF 55-60%, AoV sclerosis w/o stenosis, PASP 30 mmHg No angiographically significant coronary artery disease, normal global left ventricular systolic function with an ejection fraction of approximately 60 to 65%, elevated left ventricular end-diastolic pressure indicative of some degree of diastolic dysfunction of the left ventricle, and no significant mitral regurgitation per cardiac catheterization from 01/06/12 Maturity onset diabetes mellitus. Hypertension, restart home meds and monitor blood pressure response Chronic bilateral leg swelling, likely related to venous insufficiency. Hyperlipidemia, continue to monitor Chronic back pain and degenerative joint disease. Pulmonary artery systolic pressure is estimated to be approximately 40 mmHg per echocardiogram from 08/18/2013, which is unchanged from 2011 Thank you for your consultation. Please call me if you have any questions. Elgin Colvin MD, FACP, FACC, FSCAI, FHRS, CCDS Interventional Cardiology Cardiac Electrophysiology Vascular Medicine and Endovascular Interventions [place] MD Apr 11, 2018 13:57
--- NOTE | 2018-04-13 18:05 | Discharge Summary ---
Diagnosis/Chief Complaint Date of Admission Apr 02, 2018 at 05:20 Date of Discharge Apr 11, 2018 at 12:31 Discharge Date: Apr 11, 2018 Discharge Time: 15:00 Discharge Diagnosis Mental status changes. Sepsis. UTI. History of sick sinus syndrome. Weakness. Dyspnea. Anemia. Esophageal ulcer. Esophageal Anabel. Obesity. Aphasia. Essential hypertension. GERD. 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 Hematoma Reason Hospital Visit *Resident of assisted living. Patient went to bathroom at 3 a.m. Patient got up from toilet and fell to floor. This was witnessed. Were unable to get patient up and called EMS. Patient had acute mental status change. Patient now has difficulty in speaking. Patient is swollen up. Would not give patient high doses of fluid to avoid congestive heart failure. Serum lactic acid elevated but second one coming down. Patient not in septic shock. Patient did speak to nurse and was coherent. Patient has difficulty in talking now Discharge Summary Procedures EGD. Colonoscopy Consultations Cardiology, surgery Discharge Physical Examination Allergies: Coded Allergies: Penicillins (Unverified Allergy, Unknown, 04/11/18) codeine (Unverified Allergy, Unknown, 04/11/18) aspirin (Verified Adverse Reaction, Unknown, NAUSEA, 04/11/18) Vitals & I&Os Vital Signs Date Time Temp Pulse Resp B/P (MAP) Pulse Ox O2 Delivery O2 Flow Rate FiO2 04/11/18 08:00 97.4 80 18 136/60 (85) 98 Room Air Hospital Course Patient in hospital did better patient transferred to rehabilitation patient had trouble getting around Labs (last 24 hrs) Laboratory Tests 04/02/18 03:57: White Blood Count 9.8, Red Blood Count 2.77L, Hemoglobin 8.6L, Hematocrit 25L, Mean Corpuscular Volume 91, Mean Corpuscular Hemoglobin 31, Mean Corpuscular Hemoglobin Concent 34, Red Cell Distribution Width 14.9H, Platelet Count 122L, Mean Platelet Volume 10.5H, Neutrophils (%) (Auto) 80H, Lymphocytes (%) (Auto) 9L, Monocytes (%) (Auto) 8, Eosinophils (%) (Auto) 2, Basophils (%) (Auto) 0, Neutrophils # (Auto) 7.9H, Lymphocytes # (Auto) 0.9L, Monocytes # (Auto) 0.8, Eosinophils # (Auto) 0.2, Basophils # (Auto) 0.0, Prothrombin Time 25.6H, INR Comment 2.3H, Activated Partial Thromboplast Time 43H, D-Dimer 10.24H, Sodium Level 141, Potassium Level 4.0, Chloride Level 111H, Carbon Dioxide Level 21, Anion Gap 9, Blood Urea Nitrogen 24H, Creatinine 0.78, Estimat Glomerular Filtration Rate > 60, BUN/Creatinine Ratio 31, Glucose Level 147H, Lactic Acid Level 3.61*H, Calcium Level 8.1L, Total Bilirubin 1.3H, Aspartate Amino Transf ( AST/SGOT) 18, Alanine Aminotransferase (ALT/SGPT) 18, Alkaline Phosphatase 60, Troponin I < 0.30, C-Reactive Protein High Sensitivity 5.16H, B-Type Natriuretic Peptide 43.9, Total Protein 5.0L, Albumin 2.5L, TSH [place] Testing 1.04 04/02/18 04:30: Urine Color AMBERH, Urine Clarity SLIGHTLY CLOUDY, Urine pH 5, Urine Specific [place] 1.015L, Urine Protein 1+H, Urine Glucose (UA) NEGATIVE, Urine Ketones NEGATIVE, Urine Nitrite POSITIVEH, Urine Bilirubin 1+H, Urine Urobilinogen 1, Urine Leukocyte Esterase 2+H, Urine RBC (Auto) 2+H, Urine RBC 0-2, Urine WBC 25- 50H, Urine Squamous Epithelial Cells 0-2, Urine Renal Epithelial Cells 2-5, Urine Crystals NONE, Urine Bacteria FEWH, Urine Casts NONE, Urine Mucus NEGATIVE , Urine Culture Indicated YES 04/02/18 04:41: Glucometer 145H 04/02/18 06:45: Lactic Acid Level 2.46*H 04/02/18 10:40: Glucometer 134H 04/02/18 17:06: Glucometer 114H 04/02/18 17:08: White Blood Count 7.0, Red Blood Count 2.33L, Hemoglobin 7.0L, Hematocrit 21L, Mean Corpuscular Volume 91, Mean Corpuscular Hemoglobin 30, Mean Corpuscular Hemoglobin Concent 33, Red Cell Distribution Width 15.5H, Platelet Count 101L, Mean Platelet Volume 9.9, Neutrophils (%) (Auto) 73, Lymphocytes (%) (Auto) 14, Monocytes (%) (Auto) 9, Eosinophils (%) (Auto) 5, Basophils (%) (Auto) 0, Neutrophils # (Auto) 5.1, Lymphocytes # (Auto) 1.0, Monocytes # (Auto) 0.7, Eosinophils # (Auto) 0.3, Basophils # (Auto) 0.0, Sodium Level 142, Potassium Level 3.7, Chloride Level 112H, Carbon Dioxide Level 25, Anion Gap 5, Blood Urea Nitrogen 27H, Creatinine 0.81, Estimat Glomerular Filtration Rate > 60, BUN /Creatinine Ratio 33, Glucose Level 115H, Lactic Acid Level 1.31, Calcium Level 7.7L 04/02/18 21:28: Glucometer 189H 04/02/18 23:40: Hemoglobin 6.8*L, Hematocrit 20*L 04/03/18 00:45: Iron Level 30L, Total Iron Binding Capacity 180L, Unsaturated Iron Binding Capacity 150, Transferrin % Saturation 17, Ferritin 113.7 04/03/18 06:06: Glucometer 119H 04/03/18 06:35: Hemoglobin 6.8*L, Hematocrit 21L, White Blood Count 7.0, Red Blood Count 2.29L, Mean Corpuscular Volume 91, Mean Corpuscular Hemoglobin 30, Mean Corpuscular Hemoglobin Concent 33, Red Cell Distribution Width 16.0H, Platelet Count 93L, Mean Platelet Volume 11.3H, Neutrophils (%) (Auto) 69, Lymphocytes (%) (Auto) 15 , Monocytes (%) (Auto) 10, Eosinophils (%) (Auto) 6, Basophils (%) (Auto) 0, Neutrophils # (Auto) 4.8, Lymphocytes # (Auto) 1.1, Monocytes # (Auto) 0.7, Eosinophils # (Auto) 0.4H, Basophils # (Auto) 0.0 04/03/18 06:45: Sodium Level 142, Potassium Level 3.9, Chloride Level 113H, Carbon Dioxide Level 24, Anion Gap 5, Blood Urea Nitrogen 28H, Creatinine 0.73, Estimat Glomerular Filtration Rate > 60, BUN/Creatinine Ratio 38, Glucose Level 123H, Calcium Level 7.9L, Magnesium Level 1.3L, Total Bilirubin 1.0, Aspartate Amino Transf (AST/SGOT) 15, Alanine Aminotransferase (ALT/SGPT) 14, Alkaline Phosphatase 53, Total Protein 4.5L, Albumin 2.2L, Triglycerides Level 60, Cholesterol Level 84, LDL Cholesterol Direct 39, VLDL Cholesterol 12, HDL Cholesterol 28L 04/03/18 08:30: Hemoglobin 6.9*L, Hematocrit 21L 04/03/18 14:08: Glucometer 132H 04/03/18 17:20: Stool Occult Blood Immunoassay POSITIVEH 04/03/18 17:34: Glucometer 157H 04/03/18 18:39: Hemoglobin 7.8L, Hematocrit 24L 04/04/18 03:45: Hemoglobin 8.0L, Hematocrit 23L, White Blood Count 5.6, Red Blood Count 2.67L, Mean Corpuscular Volume 87, Mean Corpuscular Hemoglobin 30, Mean Corpuscular Hemoglobin Concent 34, Red Cell Distribution Width 15.9H, Platelet Count 90L, Mean Platelet Volume 10.5H, Neutrophils (%) (Auto) 63, Lymphocytes (%) (Auto) 20 , Monocytes (%) (Auto) 10, Eosinophils (%) (Auto) 6, Basophils (%) (Auto) 1, Neutrophils # (Auto) 3.6, Lymphocytes # (Auto) 1.1, Monocytes # (Auto) 0.5, Eosinophils # (Auto) 0.4H, Basophils # (Auto) 0.0, Sodium Level 142, Potassium Level 4.2, Chloride Level 113H, Carbon Dioxide Level 23, Anion Gap 6, Blood Urea Nitrogen 26H, Creatinine 0.63, Estimat Glomerular Filtration Rate > 60, BUN /Creatinine Ratio 41, Glucose Level 122H, Calcium Level 7.7L, Total Bilirubin 1.3H, Aspartate Amino Transf (AST/SGOT) 21, Alanine Aminotransferase (ALT/SGPT) 20, Alkaline Phosphatase 58, Total Protein 4.3L, Albumin 2.2L 04/04/18 12:10: Glucometer 133H 04/04/18 17:23: Glucometer 108 04/04/18 21:29: Glucometer 103 04/05/18 04:15: White Blood Count 4.2L, Red Blood Count 2.89L, Hemoglobin 8.7L, Hematocrit 26L, Mean Corpuscular Volume 89, Mean Corpuscular Hemoglobin 30, Mean Corpuscular Hemoglobin Concent 34, Red Cell Distribution Width 15.9H, Platelet Count 72L, Mean Platelet Volume 10.7H, Neutrophils (%) (Auto) 60, Lymphocytes (%) (Auto) 20 , Monocytes (%) (Auto) 10, Eosinophils (%) (Auto) 10, Basophils (%) (Auto) 1, Neutrophils # (Auto) 2.5, Lymphocytes # (Auto) 0.9L, Monocytes # (Auto) 0.4, Eosinophils # (Auto) 0.4H, Basophils # (Auto) 0.0, Sodium Level 145, Potassium Level 4.6, Chloride Level 115H, Carbon Dioxide Level 23, Anion Gap 7, Blood Urea Nitrogen 20H, Creatinine 0.57L, Estimat Glomerular Filtration Rate > 60, BUN/Creatinine Ratio 35, Glucose Level 98, Calcium Level 8.3L, Phosphorus Level 2.6, Magnesium Level 1.6L, Total Bilirubin 2.0H, Aspartate Amino Transf (AST/ SGOT) 21, Alanine Aminotransferase (ALT/SGPT) 17, Alkaline Phosphatase 55, Total Protein 4.7L, Albumin 2.5L 04/05/18 12:29: Lab Scanned Report Transfusion Reaction Form 04/05/18 16:20: Glucometer 101 04/06/18 04:30: White Blood Count 3.8L, Red Blood Count 2.61L, Hemoglobin 7.7L, Hematocrit 24L, Mean Corpuscular Volume 92, Mean Corpuscular Hemoglobin 30, Mean Corpuscular Hemoglobin Concent 32, Red Cell Distribution Width 16.1H, Platelet Count 116L, Mean Platelet Volume 9.9, Neutrophils (%) (Auto) 65, Lymphocytes (%) (Auto) 16, Monocytes (%) (Auto) 11, Eosinophils (%) (Auto) 8, Basophils (%) (Auto) 0, Neutrophils # (Auto) 2.5, Lymphocytes # (Auto) 0.6L, Monocytes # (Auto) 0.4, Eosinophils # (Auto) 0.3, Basophils # (Auto) 0.0, Sodium Level 143, Potassium Level 4.1, Chloride Level 112H, Carbon Dioxide Level 26, Anion Gap 5, Blood Urea Nitrogen 19H, Creatinine 0.61, Estimat Glomerular Filtration Rate > 60, BUN /Creatinine Ratio 31, Glucose Level 135H, Calcium Level 8.1L, Phosphorus Level 2.4, Magnesium Level 1.5L, Total Bilirubin 2.0H, Aspartate Amino Transf (AST/ SGOT) 19, Alanine Aminotransferase (ALT/SGPT) 16, Alkaline Phosphatase 55, Total Protein 4.6L, Albumin 2.6L 04/06/18 11:06: Glucometer 170H 04/06/18 15:33: Glucometer 180H 04/06/18 20:58: Glucometer 168H 04/07/18 05:00: White Blood Count 4.4, Red Blood Count 2.66L, Hemoglobin 8.1L, Hematocrit 24L, Mean Corpuscular Volume 91, Mean Corpuscular Hemoglobin 31, Mean Corpuscular Hemoglobin Concent 33, Red Cell Distribution Width 15.8H, Platelet Count 118L, Mean Platelet Volume 9.8, Neutrophils (%) (Auto) 68, Lymphocytes (%) (Auto) 16, Monocytes (%) (Auto) 10, Eosinophils (%) (Auto) 5, Basophils (%) (Auto) 1, Neutrophils # (Auto) 3.0, Lymphocytes # (Auto) 0.7L, Monocytes # (Auto) 0.5, Eosinophils # (Auto) 0.2, Basophils # (Auto) 0.0, Magnesium Level 1.5L 04/07/18 05:17: Glucometer 140H 04/07/18 11:14: Glucometer 168H 04/07/18 15:36: Glucometer 173H 04/07/18 21:03: Glucometer 181H 04/08/18 05:07: Glucometer 139H 04/08/18 05:26: White Blood Count 4.8, Red Blood Count 2.76L, Hemoglobin 8.1L, Hematocrit 25L, Mean Corpuscular Volume 92, Mean Corpuscular Hemoglobin 29, Mean Corpuscular Hemoglobin Concent 32, Red Cell Distribution Width 16.4H, Platelet Count 132, Mean Platelet Volume 9.9, Neutrophils (%) (Auto) 68, Lymphocytes (%) (Auto) 15, Monocytes (%) (Auto) 10, Eosinophils (%) (Auto) 7, Basophils (%) (Auto) 0, Neutrophils # (Auto) 3.2, Lymphocytes # (Auto) 0.7L, Monocytes # (Auto) 0.5, Eosinophils # (Auto) 0.3, Basophils # (Auto) 0.0 04/08/18 11:20: Glucometer 177H 04/08/18 16:36: Glucometer 197H 04/08/18 18:15: Hemoglobin 8.6L 04/08/18 20:02: Glucometer 258H 04/09/18 04:45: White Blood Count 4.4, Red Blood Count 2.63L, Hemoglobin 8.0L, Hematocrit 24L, Mean Corpuscular Volume 92, Mean Corpuscular Hemoglobin 30, Mean Corpuscular Hemoglobin Concent 33, Red Cell Distribution Width 16.6H, Platelet Count 129L, Mean Platelet Volume 10.1, Neutrophils (%) (Auto) 69, Lymphocytes (%) (Auto) 16 , Monocytes (%) (Auto) 9, Eosinophils (%) (Auto) 6, Basophils (%) (Auto) 1, Neutrophils # (Auto) 3.0, Lymphocytes # (Auto) 0.7L, Monocytes # (Auto) 0.4, Eosinophils # (Auto) 0.3, Basophils # (Auto) 0.0, Sodium Level 143, Potassium Level 3.7, Chloride Level 111H, Carbon Dioxide Level 27, Anion Gap 5, Blood Urea Nitrogen 14, Creatinine 0.57L, Estimat Glomerular Filtration Rate > 60, BUN /Creatinine Ratio 25, Glucose Level 152H, Calcium Level 8.2L, Corrected Calcium 9.6, Total Bilirubin 1.9H, Aspartate Amino Transf (AST/SGOT) 14, Alanine Aminotransferase (ALT/SGPT) 13, Alkaline Phosphatase 52, Total Protein 4.6L, Albumin 2.3L 04/09/18 10:59: Glucometer 174H 04/09/18 16:31: Glucometer 172H 04/09/18 20:27: Glucometer 201H 04/10/18 06:01: Hemoglobin 8.4L, Sodium Level 142, Potassium Level 3.8, Chloride Level 110H, Carbon Dioxide Level 25, Anion Gap 7, Blood Urea Nitrogen 14, Creatinine 0.60, Estimat Glomerular Filtration Rate > 60, BUN/Creatinine Ratio 23, Glucose Level 117H, Calcium Level 8.1L 04/10/18 07:03: Glucometer 125H 04/10/18 11:07: Glucometer 196H 04/10/18 15:37: Glucometer 258H 04/10/18 21:05: Glucometer 192H 04/11/18 06:05: Hemoglobin 8.4L 04/11/18 06:08: Glucometer 120H 04/11/18 11:09: Glucometer 161H Microbiology 04/02/18 Blood Culture - Final, Complete No growth 04/05/18 Fungal Culture - Preliminary, [facility]ed [facility] 04/02/18 Urine Culture - Final, Complete See Comments [facility] To [facility] Laboratory Tests 04/02/18 03:57 04/02/18 17:08 04/02/18 23:40 04/03/18 06:35 04/03/18 06:45 04/03/18 08:30 04/03/18 18:39 04/04/18 03:45 04/05/18 04:15 04/06/18 04:30 04/07/18 05:00 04/08/18 05:26 04/08/18 18:15 04/09/18 04:45 04/10/18 06:01 04/11/18 06:05 Pending Labs Microbiology Date/Time Source Procedure Growth Status 04/02/18 05:05 Peripheral :Lab Indicates After Collectio Blood Culture - Final No growth Complete 04/02/18 04:01 Peripheral Iv/Heplock Blood Culture - Final No growth Complete 04/05/18 13:45 Esopheal Brushing Fungal Culture - Preliminary [facility] To [facility] Resulted 04/05/18 13:45 Esopheal Brushing Mycobacterial Culture - Preliminary Resulted 04/02/18 04:30 Urine Clean Catch Urine Culture - Final See Comments Sent To [facility] Complete Laboratory Tests 04/02/18 03:57: White Blood Count 9.8, Red Blood Count 2.77, Hemoglobin 8.6, Hematocrit 25, Mean Corpuscular Volume 91, Mean Corpuscular Hemoglobin 31, Mean Corpuscular Hemoglobin Concent 34, Red Cell Distribution Width 14.9, Platelet Count 122, Mean Platelet Volume 10.5, Neutrophils (%) (Auto) 80, Lymphocytes (%) (Auto) 9, Monocytes (%) (Auto) 8, Eosinophils (%) (Auto) 2, Basophils (%) (Auto) 0, Neutrophils # (Auto) 7.9, Lymphocytes # (Auto) 0.9, Monocytes # (Auto) 0.8, Eosinophils # (Auto) 0.2, Basophils # (Auto) 0.0, Prothrombin Time 25.6, INR Comment 2.3, Activated Partial Thromboplast Time 43, D-Dimer 10.24, Sodium Level 141, Potassium Level 4.0, Chloride Level 111, Carbon Dioxide Level 21, Anion Gap 9, Blood Urea Nitrogen 24, Creatinine 0.78, Estimat Glomerular Filtration Rate > 60, BUN/Creatinine Ratio 31, Glucose Level 147, Lactic Acid Level 3.61, Calcium Level 8.1, Total Bilirubin 1.3, Aspartate Amino Transf (AST/ SGOT) 18, Alanine Aminotransferase (ALT/SGPT) 18, Alkaline Phosphatase 60, Troponin I < 0.30, C-Reactive Protein High Sensitivity 5.16, B-Type Natriuretic Peptide 43.9, Total Protein 5.0, Albumin 2.5, TSH [place] Testing 1.04 04/02/18 04:30: Urine Color [place], Urine Clarity SLIGHTLY CLOUDY, Urine pH 5, Urine Specific [place] 1.015, Urine Protein 1+, Urine Glucose (UA) NEGATIVE, Urine Ketones NEGATIVE, Urine Nitrite POSITIVE, Urine Bilirubin 1+, Urine Urobilinogen 1, Urine Leukocyte Esterase 2+, Urine RBC (Auto) 2+, Urine RBC 0-2, Urine WBC 25-50 , Urine Squamous Epithelial Cells 0-2, Urine Renal Epithelial Cells 2-5, Urine Crystals NONE, Urine Bacteria FEW, Urine Casts NONE, Urine Mucus NEGATIVE, Urine Culture Indicated YES 04/02/18 04:41: Glucometer 145 04/02/18 06:45: Lactic Acid Level 2.46 04/02/18 10:40: Glucometer 134 04/02/18 17:06: Glucometer 114 04/02/18 17:08: White Blood Count 7.0, Red Blood Count 2.33, Hemoglobin 7.0, Hematocrit 21, Mean Corpuscular Volume 91, Mean Corpuscular Hemoglobin 30, Mean Corpuscular Hemoglobin Concent 33, Red Cell Distribution Width 15.5, Platelet Count 101, Mean Platelet Volume 9.9, Neutrophils (%) (Auto) 73, Lymphocytes (%) (Auto) 14, Monocytes (%) (Auto) 9, Eosinophils (%) (Auto) 5, Basophils (%) (Auto) 0, Neutrophils # (Auto) 5.1, Lymphocytes # (Auto) 1.0, Monocytes # (Auto) 0.7, Eosinophils # (Auto) 0.3, Basophils # (Auto) 0.0, Sodium Level 142, Potassium Level 3.7, Chloride Level 112, Carbon Dioxide Level 25, Anion Gap 5, Blood Urea Nitrogen 27, Creatinine 0.81, Estimat Glomerular Filtration Rate > 60, BUN/ Creatinine Ratio 33, Glucose Level 115, Lactic Acid Level 1.31, Calcium Level 7.7 04/02/18 21:28: Glucometer 189 04/02/18 23:40: Hemoglobin 6.8, Hematocrit 20 04/03/18 00:45: Iron Level 30, Total Iron Binding Capacity 180, Unsaturated Iron Binding Capacity 150, Transferrin % Saturation 17, Ferritin 113.7 04/03/18 06:06: Glucometer 119 04/03/18 06:35: Hemoglobin 6.8, Hematocrit 21, White Blood Count 7.0, Red Blood Count 2.29, Mean Corpuscular Volume 91, Mean Corpuscular Hemoglobin 30, Mean Corpuscular Hemoglobin Concent 33, Red Cell Distribution Width 16.0, Platelet Count 93, Mean Platelet Volume 11.3, Neutrophils (%) (Auto) 69, Lymphocytes (%) (Auto) 15 , Monocytes (%) (Auto) 10, Eosinophils (%) (Auto) 6, Basophils (%) (Auto) 0, Neutrophils # (Auto) 4.8, Lymphocytes # (Auto) 1.1, Monocytes # (Auto) 0.7, Eosinophils # (Auto) 0.4, Basophils # (Auto) 0.0 04/03/18 06:45: Sodium Level 142, Potassium Level 3.9, Chloride Level 113, Carbon Dioxide Level 24, Anion Gap 5, Blood Urea Nitrogen 28, Creatinine 0.73, Estimat Glomerular Filtration Rate > 60, BUN/Creatinine Ratio 38, Glucose Level 123, Calcium Level 7.9, Magnesium Level 1.3, Total Bilirubin 1.0, Aspartate Amino Transf (AST/SGOT ) 15, Alanine Aminotransferase (ALT/SGPT) 14, Alkaline Phosphatase 53, Total Protein 4.5, Albumin 2.2, Triglycerides Level 60, Cholesterol Level 84, LDL Cholesterol Direct 39, VLDL Cholesterol 12, HDL Cholesterol 28 04/03/18 08:30: Hemoglobin 6.9, Hematocrit 21 04/03/18 14:08: Glucometer 132 04/03/18 17:20: Stool Occult Blood Immunoassay POSITIVE 04/03/18 17:34: Glucometer 157 04/03/18 18:39: Hemoglobin 7.8, Hematocrit 24 04/04/18 03:45: Hemoglobin 8.0, Hematocrit 23, White Blood Count 5.6, Red Blood Count 2.67, Mean Corpuscular Volume 87, Mean Corpuscular Hemoglobin 30, Mean Corpuscular Hemoglobin Concent 34, Red Cell Distribution Width 15.9, Platelet Count 90, Mean Platelet Volume 10.5, Neutrophils (%) (Auto) 63, Lymphocytes (%) (Auto) 20 , Monocytes (%) (Auto) 10, Eosinophils (%) (Auto) 6, Basophils (%) (Auto) 1, Neutrophils # (Auto) 3.6, Lymphocytes # (Auto) 1.1, Monocytes # (Auto) 0.5, Eosinophils # (Auto) 0.4, Basophils # (Auto) 0.0, Sodium Level 142, Potassium Level 4.2, Chloride Level 113, Carbon Dioxide Level 23, Anion Gap 6, Blood Urea Nitrogen 26, Creatinine 0.63, Estimat Glomerular Filtration Rate > 60, BUN/ Creatinine Ratio 41, Glucose Level 122, Calcium Level 7.7, Total Bilirubin 1.3, Aspartate Amino Transf (AST/SGOT) 21, Alanine Aminotransferase (ALT/SGPT) 20, Alkaline Phosphatase 58, Total Protein 4.3, Albumin 2.2 04/04/18 12:10: Glucometer 133 04/04/18 17:23: Glucometer 108 04/04/18 21:29: Glucometer 103 04/05/18 04:15: White Blood Count 4.2, Red Blood Count 2.89, Hemoglobin 8.7, Hematocrit 26, Mean Corpuscular Volume 89, Mean Corpuscular Hemoglobin 30, Mean Corpuscular Hemoglobin Concent 34, Red Cell Distribution Width 15.9, Platelet Count 72, Mean Platelet Volume 10.7, Neutrophils (%) (Auto) 60, Lymphocytes (%) (Auto) 20 , Monocytes (%) (Auto) 10, Eosinophils (%) (Auto) 10, Basophils (%) (Auto) 1, Neutrophils # (Auto) 2.5, Lymphocytes # (Auto) 0.9, Monocytes # (Auto) 0.4, Eosinophils # (Auto) 0.4, Basophils # (Auto) 0.0, Sodium Level 145, Potassium Level 4.6, Chloride Level 115, Carbon Dioxide Level 23, Anion Gap 7, Blood Urea Nitrogen 20, Creatinine 0.57, Estimat Glomerular Filtration Rate > 60, BUN/ Creatinine Ratio 35, Glucose Level 98, Calcium Level 8.3, Phosphorus Level 2.6, Magnesium Level 1.6, Total Bilirubin 2.0, Aspartate Amino Transf (AST/SGOT) 21, Alanine Aminotransferase (ALT/SGPT) 17, Alkaline Phosphatase 55, Total Protein 4.7, Albumin 2.5 04/05/18 12:29: Lab Scanned Report Transfusion Reaction Form 04/05/18 16:20: Glucometer 101 04/06/18 04:30: White Blood Count 3.8, Red Blood Count 2.61, Hemoglobin 7.7, Hematocrit 24, Mean Corpuscular Volume 92, Mean Corpuscular Hemoglobin 30, Mean Corpuscular Hemoglobin Concent 32, Red Cell Distribution Width 16.1, Platelet Count 116, Mean Platelet Volume 9.9, Neutrophils (%) (Auto) 65, Lymphocytes (%) (Auto) 16, Monocytes (%) (Auto) 11, Eosinophils (%) (Auto) 8, Basophils (%) (Auto) 0, Neutrophils # (Auto) 2.5, Lymphocytes # (Auto) 0.6, Monocytes # (Auto) 0.4, Eosinophils # (Auto) 0.3, Basophils # (Auto) 0.0, Sodium Level 143, Potassium Level 4.1, Chloride Level 112, Carbon Dioxide Level 26, Anion Gap 5, Blood Urea Nitrogen 19, Creatinine 0.61, Estimat Glomerular Filtration Rate > 60, BUN/ Creatinine Ratio 31, Glucose Level 135, Calcium Level 8.1, Phosphorus Level 2.4 , Magnesium Level 1.5, Total Bilirubin 2.0, Aspartate Amino Transf (AST/SGOT) 19 , Alanine Aminotransferase (ALT/SGPT) 16, Alkaline Phosphatase 55, Total Protein 4.6, Albumin 2.6 04/06/18 11:06: Glucometer 170 04/06/18 15:33: Glucometer 180 04/06/18 20:58: Glucometer 168 04/07/18 05:00: White Blood Count 4.4, Red Blood Count 2.66, Hemoglobin 8.1, Hematocrit 24, Mean Corpuscular Volume 91, Mean Corpuscular Hemoglobin 31, Mean Corpuscular Hemoglobin Concent 33, Red Cell Distribution Width 15.8, Platelet Count 118, Mean Platelet Volume 9.8, Neutrophils (%) (Auto) 68, Lymphocytes (%) (Auto) 16, Monocytes (%) (Auto) 10, Eosinophils (%) (Auto) 5, Basophils (%) (Auto) 1, Neutrophils # (Auto) 3.0, Lymphocytes # (Auto) 0.7, Monocytes # (Auto) 0.5, Eosinophils # (Auto) 0.2, Basophils # (Auto) 0.0, Magnesium Level 1.5 04/07/18 05:17: Glucometer 140 04/07/18 11:14: Glucometer 168 04/07/18 15:36: Glucometer 173 04/07/18 21:03: Glucometer 181 04/08/18 05:07: Glucometer 139 04/08/18 05:26: White Blood Count 4.8, Red Blood Count 2.76, Hemoglobin 8.1, Hematocrit 25, Mean Corpuscular Volume 92, Mean Corpuscular Hemoglobin 29, Mean Corpuscular Hemoglobin Concent 32, Red Cell Distribution Width 16.4, Platelet Count 132, Mean Platelet Volume 9.9, Neutrophils (%) (Auto) 68, Lymphocytes (%) (Auto) 15, Monocytes (%) (Auto) 10, Eosinophils (%) (Auto) 7, Basophils (%) (Auto) 0, Neutrophils # (Auto) 3.2, Lymphocytes # (Auto) 0.7, Monocytes # (Auto) 0.5, Eosinophils # (Auto) 0.3, Basophils # (Auto) 0.0 04/08/18 11:20: Glucometer 177 04/08/18 16:36: Glucometer 197 04/08/18 18:15: Hemoglobin 8.6 04/08/18 20:02: Glucometer 258 04/09/18 04:45: White Blood Count 4.4, Red Blood Count 2.63, Hemoglobin 8.0, Hematocrit 24, Mean Corpuscular Volume 92, Mean Corpuscular Hemoglobin 30, Mean Corpuscular Hemoglobin Concent 33, Red Cell Distribution Width 16.6, Platelet Count 129, Mean Platelet Volume 10.1, Neutrophils (%) (Auto) 69, Lymphocytes (%) (Auto) 16 , Monocytes (%) (Auto) 9, Eosinophils (%) (Auto) 6, Basophils (%) (Auto) 1, Neutrophils # (Auto) 3.0, Lymphocytes # (Auto) 0.7, Monocytes # (Auto) 0.4, Eosinophils # (Auto) 0.3, Basophils # (Auto) 0.0, Sodium Level 143, Potassium Level 3.7, Chloride Level 111, Carbon Dioxide Level 27, Anion Gap 5, Blood Urea Nitrogen 14, Creatinine 0.57, Estimat Glomerular Filtration Rate > 60, BUN/ Creatinine Ratio 25, Glucose Level 152, Calcium Level 8.2, Corrected Calcium 9.6 , Total Bilirubin 1.9, Aspartate Amino Transf (AST/SGOT) 14, Alanine Aminotransferase (ALT/SGPT) 13, Alkaline Phosphatase 52, Total Protein 4.6, Albumin 2.3 04/09/18 10:59: Glucometer 174 04/09/18 16:31: Glucometer 172 04/09/18 20:27: Glucometer 201 04/10/18 06:01: Hemoglobin 8.4, Sodium Level 142, Potassium Level 3.8, Chloride Level 110, Carbon Dioxide Level 25, Anion Gap 7, Blood Urea Nitrogen 14, Creatinine 0.60, Estimat Glomerular Filtration Rate > 60, BUN/Creatinine Ratio 23, Glucose Level 117, Calcium Level 8.1 04/10/18 07:03: Glucometer 125 04/10/18 11:07: Glucometer 196 04/10/18 15:37: Glucometer 258 04/10/18 21:05: Glucometer 192 04/11/18 06:05: Hemoglobin 8.4 04/11/18 06:08: Glucometer 120 04/11/18 11:09: Glucometer 161 Discussion & Recommendations Patient transferred to rehabilitation Discharge Home Medications: Active Scripts Active Eliquis (Apixaban) 5 Mg Tablet 5 Mg PO BID 30 Days TAKE 2 TABLETS BID X 7 DAYS, THEN 1 TABLET BID Clindamycin HCl 300 Mg Capsule 300 Mg PO TID 5 Days Reported Lisinopril 10 Mg Tablet 10 Mg PO DAILY Atorvastatin Calcium 40 Mg Tablet 40 Mg PO HS Toviaz (Fesoterodine Fumarate) 4 Mg Tab.sr.24h 4 Mg PO DAILY Omeprazole 40 Mg Capsule.dr 40 Mg PO DAILY Micardis (Telmisartan) 80 Mg Tablet 80 Mg PO DAILY Metformin HCl 500 Mg Tablet 500 Mg PO BID Fish Oil 1,200 mg Fish Oil (Fish Oil/Dha/Epa) 1 Each Capsule 1,200 Mg PO BID Ocuvite Adult 50 Plus Softgel (C,E,Zinc,Copper 11/Xprmy5z/Lut) 1 Each Capsule 1 Cap PO DAILY Instructions to patient/family Please see electronic discharge instructions given to patient. Clinical Quality Measures DVT/VTE Risk/Contraindication: Risk Factor Score Per Nursin RFS Level Per Nursing on Admit: 4+=Very High Contraindications-Pharm: Other *list below* ADEN LEE DO Apr 13, 2018 18:05
== END 2018-04-11 12:31 | DRG 872 ==
LOC: EDUNIT# 03:47 → ER 03:48 → ICU 05:20 → 4TH 04-06 10:53
PROVIDERS: ADMIT Family Medicine; ATTEND Family Medicine
PROC: 0DB68ZX Excision of Stomach, Via Natural or Artificial Opening Endoscopic, Diagnostic (ICD-10-PCS; 2018-04-05)
PROC: 0DD38ZX Extraction of Lower Esophagus, Via Natural or Artificial Opening Endoscopic, Diagnostic (ICD-10-PCS; 2018-04-05)
PROC: 0DJD8ZZ Inspection of Lower Intestinal Tract, Via Natural or Artificial Opening Endoscopic (ICD-10-PCS; principal; 2018-04-05 12:21)
PROC: 0DB58ZX Excision of Esophagus, Via Natural or Artificial Opening Endoscopic, Diagnostic (ICD-10-PCS; 2018-04-05 12:21)
PROC: 0DB48ZX Excision of Esophagogastric Junction, Via Natural or Artificial Opening Endoscopic, Diagnostic (ICD-10-PCS; 2018-04-05 12:21)
DX: A41.9 Sepsis, unspecified organism (principal); N39.0 Urinary tract infection, site not specified; E86.9 Volume depletion, unspecified; K22.10 Ulcer of esophagus without bleeding; B37.81 Candidal esophagitis; T82.818A Embolism due to vascular prosthetic devices, implants and grafts, initial encounter; I82.622 Acute embolism and thrombosis of deep veins of left upper extremity; T82.898A Other specified complication of vascular prosthetic devices, implants and grafts, initial encounter; E66.9 Obesity, unspecified; Z68.42 Body mass index [BMI] 45.0-49.9, adult; D64.9 Anemia, unspecified; K29.70 Gastritis, unspecified, without bleeding; K21.0 Gastro-esophageal reflux disease with esophagitis; K57.30 Diverticulosis of large intestine without perforation or abscess without bleeding; E83.42 Hypomagnesemia; M79.81 Nontraumatic hematoma of soft tissue; I89.0 Lymphedema, not elsewhere classified; I95.9 Hypotension, unspecified; R19.5 Other fecal abnormalities; I69.320 Aphasia following cerebral infarction; I69.322 Dysarthria following cerebral infarction; I69.321 Dysphasia following cerebral infarction; I10 Essential (primary) hypertension; I48.0 Paroxysmal atrial fibrillation; E11.9 Type 2 diabetes mellitus without complications; D69.6 Thrombocytopenia, unspecified; I87.2 Venous insufficiency (chronic) (peripheral); K64.1 Second degree hemorrhoids; Z95.0 Presence of cardiac pacemaker; Z96.653 Presence of artificial knee joint, bilateral
CPT/HCPCS: 36415; 51702; 70450; 71045; 76937; 80048; 80053; 80061; 81000; 82274; 82728; 82962; 83540; 83605; 83735; 83880; 84100; 84443; 84484; 85014; 85018; 85025; 85027; 85379; 85610; 85730; 86141; 86850; 86900; 86901; 86920; 87040; 87088; 87101; 87116; 93005; 93041; 94640; 94760; 96361; 96374

== ENCOUNTER 2018-05-06 09:00 | Outpatient (RCR) | payer MEDICARE, OTHER, MEDICAID ==
[~2018-05-06 09:00] MED LIST changes: +DONE5TAB8 PO; +MAGN200T8 PO; +METF-397 PO; -METF500T5 PO; +METO-387 PO; +MICO90PO TOP
[2018-05-06 09:41] LABS: ABSOLUTE RETIC # 41 10e9/L (24-90); BASOPHILS % (AUTO) 1 % (0-10); EOSINOPHILS # (AUTO) 0.2 10^3/uL (0.0-0.3); EOSINOPHILS % (AUTO) 6 % (0-10); HEMATOCRIT 30 % (35-52); HEMOGLOBIN 9.6 G/DL (11.5-16.0); LYMPHOCYTES # (AUTO) 0.8 X 10^3 (1.0-4.0); LYMPHOCYTES % (AUTO) 21 % (12-44); MEAN CORPUSCULAR HEMOGLOBIN 30 PG (25-34); MEAN CORPUSCULAR HGB CONC 32 G/DL (32-36); MEAN CORPUSCULAR VOLUME 94 FL (80-99); MEAN PLATELET VOLUME 10.1 FL (7.4-10.4); MONOCYTES # (AUTO) 0.4 X 10^3 (0.0-1.0); MONOCYTES % (AUTO) 10 % (0-12); NEUTROPHILS # (AUTO) 2.4 X 10^3 (1.8-7.8); NEUTROPHILS % (AUTO) 63 % (42-75); PLATELET COUNT 120 10^3/uL (130-400); RED BLOOD COUNT 3.19 10^6/uL (4.35-5.85); RETICULOCYTE % 1.27 % (0.50-2.40); WHITE BLOOD COUNT 3.9 10^3/uL (4.3-11.0)
[2018-05-06 10:12] LABS: ALANINE AMINOTRANSFERASE 10 U/L (0-55); ALBUMIN 2.9 GM/DL (3.2-4.5); ALKALINE PHOSPHATASE 66 U/L (40-136); BILIRUBIN,TOTAL 1.2 MG/DL (0.1-1.0); BUN/CREATININE RATIO 17; CALCIUM 8.4 MG/DL (8.5-10.1); CARBON DIOXIDE 23 MMOL/L (21-32); CHLORIDE 109 MMOL/L (98-107); CREATININE SERUM 0.75 MG/DL (0.60-1.30); GFR ESTIMATED > 60; GLUCOSE 161 MG/DL (70-105); POTASSIUM 3.6 MMOL/L (3.6-5.0); SODIUM 139 MMOL/L (135-145); TOTAL PROTEIN 5.8 GM/DL (6.4-8.2)
== END 2018-05-30 | disposition home or self-care (01) ==
LOC: ONC 09:00
PROVIDERS: ATTEND Internal Medicine Hematology & Oncology
DX: D61.818 Other pancytopenia (principal); I10 Essential (primary) hypertension; I25.10 Atherosclerotic heart disease of native coronary artery without angina pectoris; E11.9 Type 2 diabetes mellitus without complications; E78.5 Hyperlipidemia, unspecified; K21.9 Gastro-esophageal reflux disease without esophagitis; Z95.0 Presence of cardiac pacemaker; Z79.01 Long term (current) use of anticoagulants; Z79.84 Long term (current) use of oral hypoglycemic drugs
CPT/HCPCS: 36415; 36591; 80053; 82728; 83540; 85025; 85045; 99213

== ENCOUNTER 2018-06-02 07:52 | Inpatient (IN) | payer MEDICARE, OTHER, MEDICAID ==
[2018-06-02] VITALS (7 sets, daily range): BP systolic 143–199; BP diastolic 47–101
[~2018-06-02] VITALS: Ht 172.7 cm; Wt 130.7 kg
[2018-06-02 08:13] LABS: BASOPHILS % (AUTO) 1 % (0-10); EOSINOPHILS # (AUTO) 0.1 10^3/uL (0.0-0.3); EOSINOPHILS % (AUTO) 3 % (0-10); HEMATOCRIT 34 % (35-52); LYMPHOCYTES # (AUTO) 0.9 X 10^3 (1.0-4.0); LYMPHOCYTES % (AUTO) 22 % (12-44); MEAN CORPUSCULAR HEMOGLOBIN 30 PG (25-34); MEAN CORPUSCULAR HGB CONC 32 G/DL (32-36); MEAN CORPUSCULAR VOLUME 94 FL (80-99); MONOCYTES # (AUTO) 0.5 X 10^3 (0.0-1.0); MONOCYTES % (AUTO) 11 % (0-12); NEUTROPHILS # (AUTO) 2.6 X 10^3 (1.8-7.8); NEUTROPHILS % (AUTO) 63 % (42-75); PLATELET COUNT 112 10^3/uL (130-400); RED BLOOD COUNT 3.67 10^6/uL (4.35-5.85); RED CELL DISTRIBUTION WIDTH 16.1 % (10.0-14.5); WHITE BLOOD COUNT 4.1 10^3/uL (4.3-11.0)
[2018-06-02 08:30] LABS: ALANINE AMINOTRANSFERASE 12 U/L (0-55); ALBUMIN 3.1 GM/DL (3.2-4.5); ALKALINE PHOSPHATASE 75 U/L (40-136); BILIRUBIN,TOTAL 1.3 MG/DL (0.1-1.0); BUN/CREATININE RATIO 19; CALCIUM 8.3 MG/DL (8.5-10.1); CARBON DIOXIDE 25 MMOL/L (21-32); CHLORIDE 105 MMOL/L (98-107); CREATININE SERUM 0.73 MG/DL (0.60-1.30); GFR ESTIMATED > 60; GLUCOSE 116 MG/DL (70-105); POTASSIUM 3.6 MMOL/L (3.6-5.0); SODIUM 143 MMOL/L (135-145); TOTAL PROTEIN 6.4 GM/DL (6.4-8.2)
[2018-06-02 08:39] LABS: FIBRIN DEGRADATION PRODUCTS 0.76 UG/ML (0.00-0.49); INR 1.9 (0.8-1.4); PROTHROMBIN TIME PATIENT 21.6 SEC (12.2-14.7)
--- NOTE | 2018-06-02 08:42 | Diagnostic Imaging Report ---
INDICATION: Altered mental status Portable chest 8:18 AM There is a dual-chamber pacemaker. Right subclavian central line tip projects over the SVC. Heart size and pulmonary vascularity are normal. Lungs are clear. There are no effusions or pneumothoraces. IMPRESSION: No acute abnormalities in the chest Dictated by: Dictated on workstation # [id number]
[2018-06-02 08:44] LABS: BILIRUBIN,URINE NEGATIVE (NEGATIVE); CLARITY,URINE CLEAR; COLOR,URINE YELLOW; GLUCOSE, URINE (UA) NEGATIVE (NEGATIVE); KETONES,URINE NEGATIVE (NEGATIVE); LEUKOCYTE ESTERASE ,URINE NEGATIVE (NEGATIVE); NITRITE,URINE NEGATIVE (NEGATIVE); PH,URINE 9 (5-9); PROTEIN,URINE NEGATIVE (NEGATIVE); UROBILINOGEN,URINE 1 MG/DL (NORMAL)
--- NOTE | 2018-06-02 08:48 | Diagnostic Imaging Report ---
CLINICAL INDICATION: Patient with lethargy and incontinence. Stroke protocol. EXAM: Axial CT scan of the brain performed without IV contrast. COMPARISON: Head CT without IV contrast dated 04/22/2018. FINDINGS: Motion artifact obscures some portions of this exam. There is interval development of a 12 mm low-density area which is superimposed upon amorphous low density changes in the left frontal lobe oreilly radiata region. Again seen are patchy areas of low-attenuation white matter changes involving both cerebral hemispheres, predominantly involving the frontal lobes and left side more than the right. There are no transcortical low density changes seen. There is mild brain parenchymal volume loss seen. There is normal medina/white matter distinction. There is no hydrocephalus, brain herniation, or midline shift. There is no intracranial hemorrhage. The basal cisterns are unremarkable. The extracranial soft tissues, skull, and orbits are unremarkable. The paranasal sinuses and temporal bone structures are unremarkable. IMPRESSION: 1. There is interval development of a 12 mm low-density area involving the left frontal lobe oreilly radiata region which is concerning for an ischemic process which may be subacute or chronic. If there is concern for acute cerebral infarct with need for possible intervention, a CT angiogram of the head and neck is suggested. Otherwise, an MRI of the brain with and without IV contrast would help better evaluate. 2. Again seen are patchy areas of low-attenuation white matter changes involving both cerebral hemispheres, left side more than the right, which may be related to chronic small vessel ischemic disease. 3. The remainder of the brain shows no other acute intracranial finding. 4. The results of this report were discussed with Dr. Rhianna Garcia via the telephone on 06/02/2018 at 0840 hours. Dictated by: Dictated on workstation # [id number]
[2018-06-02 08:51] LABS: TSH (THYROID ANALYZER) 1.33 UIU/ML (0.35-4.94)
[2018-06-02 08:58] LABS: BACTERIA,URINE NEGATIVE /HPF; SQUAMOUS EPITHELIAL CELL,UR 0-2 /HPF
[2018-06-02] MEDS ORDERED: IOHEXOL 350 MG/ML 100 ML (OMNIPAQUE 350) VIAL IV ONE (09:00)
[2018-06-02] MEDS ORDERED: NS 250 ML (IVPB) BAG IV ONE (09:00)
[2018-06-02] MEDS ORDERED: RECEIVED CONTRAST (Hold Metformin) IV SCH (09:30)
[2018-06-02] MEDS: MAGNESIUM 1 GM/100 ML IVPB 100 ML IV SCH ×4 (11:03→15:09)
[2018-06-02] MEDS ORDERED: fentaNYL INJECTION 100 MCG/2 ML AMP ONE (12:04)
[2018-06-02] MEDS ORDERED: fentaNYL INJECTION 100 MCG/2 ML AMP IVP STA ×2 (12:05→12:46)
--- NOTE | 2018-06-02 12:35 | Progress Note-Post Operative ---
Post-Operative Progess Note Surgeon (s)/Straightening Machine Feeder (s) Surgeon HECTOR FLANAGAN DO Straightening Machine Feeder: none Pre-Operative Diagnosis symptomatic anemia, poor periperal venous circulation Post-Operative Diagnosis Venous Insufficiency Procedure & Operative Findings Date of Procedure 06/02/18 Procedure Performed/Findings Right IJ triple lumen catheter placed with US guidance Anesthesia Type local lidocaine Estimated Blood Loss Estimated blood loss (mL): less than 5ml Specimens/Packing Specimens Removed none HECTOR FLANAGAN DO Jun 02, 2018 12:35
[2018-06-02] MEDS ORDERED: LORazepam INJ 2 MG/ML (ATIVAN) VIAL IVP ONE (13:15)
--- NOTE | 2018-06-02 13:33 | Diagnostic Imaging Report ---
PROCEDURE: CT angiography of the head and CT angiography of the neck with and without contrast. TECHNIQUE: Contiguous noncontrast images were obtained from the skull base through the vertex. After intravenous contrast administration, helical CT angiography of the neck was performed. Source data was reformatted into multiple 2D MIP projections. Delayed post contrast acquisition was also obtained. INDICATION: Lethargy and incontinence. COMPARISON: The exam is interpreted in correlation with an earlier nonenhanced head CT. FINDINGS: CT ANGIO NECK: The right cervical vertebral is the dominant vessel with the left somewhat small on a congenital basis diffusely; however, both appear patent and nonacute. The bilateral common carotids are patent. There is calcified plaque at the left greater than right bifurcation and extending into the proximal ICAs. On the right, this results in a minimal 20-30% proximal ICA stenosis. On the left, the proximal ICA is stenosed about 50-69%. CT ANGIO HEAD: There is heavy calcified plaque in the intrathecal left vertebral artery. Beyond that level, it was small in caliber but opacified and unobstructed. The basilar appears patent. The P1 and P2 segments of the halftone operator are grossly unremarkable. More distally, the arteries cannot be differentiated from the heavily opacified venous channels. There are carotid calcifications intracranially along the cavernous segments with dense plaque in the supraclinoid left ICA resulting in a 50-69% luminal stenosis. The A1 segments and the anterior cerebral arteries are patent. The M1 and M2 segments of the MCA are grossly unremarkable. In the distal M2 as well as the M3 and M4 levels, luminal opacification is poor. There is no evidence for large vessel occlusion or visualized intraluminal thrombus and no aneurysm or vascular malformation. IMPRESSION: No large vessel occlusion or intracerebral thrombus is evident. There is left greater than right carotid and left greater than right cervical and intracranial carotid atherosclerosis with intrathecal left vertebral calcified plaque. No aneurysm or vascular malformation is demonstrated. No evidence for dissection. Venous contamination limits evaluation of the distal intracranial arterial vessels. Dictated by: Dictated on workstation # [id number]
[2018-06-02] MEDS ORDERED: MAGNESIUM 1 GM/100 ML IVPB 100 ML IV ONE (15:04)
[2018-06-02] MEDS ORDERED: CATHETER FLUSH 10 ML SYR IV PRN (16:15)
[2018-06-02] MEDS ORDERED: LORazepam INJ 2 MG/ML (ATIVAN) VIAL IV PRN (16:15)
[2018-06-02] MEDS ORDERED: FLU QUADRIvalent (5+ YOA) 2018-2019 (AFLURIA) 0.5 ML IM ONE (17:30)
[2018-06-02] MEDS: fentaNYL INJECTION 100 MCG/2 ML AMP IV PRN ×5 (18:01→22:51)
--- NOTE | 2018-06-02 18:13 | OPERATIVE REPORT ---
DATE OF SERVICE: 06/02/2018 PREOPERATIVE DIAGNOSIS: Venous insufficiency. POSTOPERATIVE DIAGNOSIS: Venous insufficiency. PROCEDURE: Insertion of right IJ triple lumen catheter with ultrasound guidance. SURGEON: Willie Pabon DO. LOG COOKER: None. ANESTHESIA: Just local lidocaine. BLOOD LOSS: Less than 5 mL. FLUIDS: None. POSTOPERATIVE CONDITION: Stable. INDICATION FOR PROCEDURE: The patient is a 78-year-old female who was in the ER with neurological symptoms needed a CT of the head and unfortunately they were unable to get IV access. She has some venous insufficiency and needs a central line placed. FINDINGS: The patient had a central line placed right IJ without difficulty. PROCEDURE NOTE: After informed consent was obtained from the daughter, the patient in the ER bed was sterilely prepped and draped in normal fashion, placed slightly Trendelenburg and infiltrated the right neck with local lidocaine and then using the ultrasound found the right internal jugular vein and then advanced an 18-gauge needle under negative inspiration wash to cannulate the internal jugular vein and then got a good flash of blood, removed the syringe, placed a guidewire down the needle using Seldinger technique. It went in easily, removed the needle, then at the guidewire made a stab incision with #11 blade and then over the guidewire placed a dilator using the Seldinger technique, it went in easily, removed this and then over the guidewire placed the catheter, placed down to about 15 cm, removed the guidewire and then easily aspirated and flushed in all 3 ports. Then placed a locking mechanism at the 15 cm hakeem because this was a 20 cm catheter and then sutured this in place with 3-0 silk suture on either side. Placed a Biopatch and then a sterile dressing. The area was cleaned and dried. The patient tolerated the procedure. Job ID: [id number] DocumentID: [id number] Dictated Date: 06/02/2018 15:11:09 Metal Reclamation Kettle Tender Date: 06/02/2018 18:12:35 Dictated By: WILLIE PABON DO
[2018-06-02] MEDS: meTOprolol 5 MG/5 ML (LOPRESSOR) VIAL IV SCH (18:30)
--- NOTE | 2018-06-02 18:56 | History & Physicial ---
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 Received call from nurse at patient has altered mental status. Patient is not talking. Patient not following commands. Patient sent out to the emergency room and admitted. Patient does not know the instructional technologist or the date. Patient does know who I am. Patient able to move all extremities a little. CAT scan may show subacute or chronic CVA. Patient needs MRI but last time she could not fit in it. Spoke to the daughter and she wants to make mother DO NOT RESUSCITATE but do everything else possible Date of Admission Jun 02, 2018 at 14:26 Time Seen by a Provider: 18:52 I consulted on this patient on 06/02/18 18:52 Attending Physician Aden Lee DO Admitting Physician Aden Lee DO Consult Allergies and Home Medications Allergies Coded Allergies: Penicillins (Unverified Allergy, Unknown, 04/11/18) codeine (Unverified Allergy, Unknown, 04/11/18) aspirin (Verified Adverse Reaction, Unknown, NAUSEA, 04/11/18) Home Medications Apixaban 5 Mg Tablet, 5 MG PO BID TAKE 2 TABLETS BID X 7 DAYS, THEN 1 TABLET BID Prescribed by: [place] COLVIN on 03/31/18 1323 Atorvastatin Calcium 40 Mg Tablet, 40 MG PO HS, (Reported) C,E,Zinc,Copper 11/Llweq2d/Lut 1 Each Capsule, 1 CAP PO DAILY, (Reported) Donepezil HCl 5 Mg Tablet, 5 MG PO HS Prescribed by: HECTOR BRITT on 04/23/181848 Fesoterodine Fumarate 4 Mg Tab.sr.24h, 4 MG PO DAILY, (Reported) Fish Oil/Dha/Epa 1 Each Capsule, 1,200 MG PO BID, (Reported) Lisinopril 10 Mg Tablet, 20 MG PO DAILY@0900 Prescribed by: HECTOR BRITT on 04/23/181848 Magnesium Oxide 200 Mg Tablet, 200 MG PO BID Prescribed by: HECTOR BRITT on 04/26/18 1901 Metformin HCl 500 Mg Tablet, 500 MG PO BID, (Reported) Metoprolol Succinate 25 Mg Tab.er.24h, 25 MG PO DAILY Prescribed by: HECTOR BRITT on 04/23/18 184 Miconazole Nitrate 90 Gm Powder, 0 GM TOP BID PRN for RASH Prescribed by: LÓPEZ GUZMAN on 04/27/18 1029 Omeprazole 40 Mg Capsule.dr, 40 MG PO DAILY, (Reported) Telmisartan 80 Mg Tablet, 80 MG PO DAILY, (Reported) Patient Home Medication List Home Medication List Reviewed: No Past Xedrpbh-Wcepmf-Anxmuw Hx Patient Social History Marrital Status: Employed/Student: retired Alcohol Use: Denies Use Recreational Drug Use: No Smoking Status: Never a Smoker Physical Abuse Screen: No Sexual Abuse: No Recent Foreign Travel: No Contact w/other who traveled: No Recent Hopitalizations: Yes (LOOP RECORDER IMPLANTED) Recent Infectious Disease Expo: No Immunizations Up To Date Tetanus Booster (TDap): More than 5yrs Pediatric: No Date of Pneumonia Vaccine: Aug 07, 2016 Date of Influenza Vaccine: Jun 09, 2016 Seasonal Allergies Seasonal Allergies: No Surgeries Yes (BILAT TKR, TIEN FILTER, LEFT SHOULDER SURGERY, BONE SPUR LEFT HEEL) Joint Replacement, Orthopedic Respiratory No Currently Using CPAP: No Currently Using BIPAP: No Cardiovascular Yes (tien filter placement) Deep Vein Thrombosis, High Cholesterol, Hypertension Neurological Yes Reproductive System Hx Reproductive Disorders: No Sexually Transmitted Disease: No HIV/AIDS: No Female Reproductive Disorders: Denies Genitourinary No Gastrointestinal Yes Gastroesophageal Reflux Musculoskeletal Yes (BONE SPUR REMOVAL LEFT FOOT) Arthritis Endocrine History of Endocrine Disorders: Yes (DM TYPE II) Endocrine Disorders: Diabetes, Non-Insulin dep HEENT History of HEENT Disorders: No Cancer No Psychosocial History of Psychiatric Problem: No Integumentary History of Skin or Integumenta: No Blood Transfusions History of Blood Disorders: Yes (BLOOD CLOT LEG TO LUNG 2000) Family Medical History Significant Family History: No Pertinent Family Hx Family Hx: Myocardial infarction Review of Systems Constitutional: malaise, weakness EENTM: no symptoms reported Respiratory: no symptoms reported Cardiovascular: no symptoms reported Gastrointestinal: no symptoms reported Genitourinary: no symptoms reported Physical Exam Vital Signs Vital Signs - First Documented 06/02/18 06/02/18 08:10 14:24 Temp 97.7 Pulse 73 Resp 14 B/P (MAP) 199/81 (120) Pulse Ox 98 O2 Delivery Room Air Capillary Refill : Less Than 3 Seconds Height, Weight, BMI Height: 5'8.00" Weight: 320lbs. 0.0oz. [id number]; 48.7 BMI Method:Estimated General Appearance: No Apparent Distress, WD/WN Eyes: Bilateral Eye Normal Inspection HEENT: Normal ENT Inspection, Other (Slow speech and confusion) Neck: Normal Inspection, Non Tender Respiratory: Lungs Clear, No Accessory Muscle Use, No Respiratory Distress Cardiovascular: Regular Rate, Rhythm, No Murmur Gastrointestinal: Non Tender, Soft Assessment/Plan Assessment and Plan Altered mental status. CVA. Diabetes. Hypertension. Confusion Admission Diagnosis Admission Status: Inpatient Order (span 2 midnights) Reason for Inpatient Admission: Weakness. Confusion. MENTAL status. Hypertension. Clinical Quality Measures DVT/VTE Risk/Contraindication: Risk Factor Score Per Nursin RFS Level Per Nursing on Admit: 4+=Very High Other: Pt had DVT in the past ADEN LEE DO Jun 02, 2018 18:56
[2018-06-02] MEDS ORDERED: ENOXAPARIN 100 MG/1 ML (LOVENOX) SYR SC SCH (19:15)
[2018-06-02] MEDS ORDERED: ENOXAPARIN 300 MG/3 ML (LOVENOX) MULTI-DOSE VIAL SQ SCH (19:30)
[2018-06-02] MEDS: CATHETER FLUSH 10 ML SYR IV SCH (20:08)
[2018-06-03] VITALS (24 sets, daily range): BP systolic 109–176; BP diastolic 43–69
[2018-06-03] MEDS: meTOprolol 5 MG/5 ML (LOPRESSOR) VIAL IV SCH ×4 (00:48→17:50)
[2018-06-03] MEDS: fentaNYL INJECTION 100 MCG/2 ML AMP IV PRN ×10 (00:48→22:22)
[2018-06-03 02:52] LABS: BASOPHILS % (AUTO) 1 % (0-10); EOSINOPHILS # (AUTO) 0.2 10^3/uL (0.0-0.3); EOSINOPHILS % (AUTO) 5 % (0-10); HEMATOCRIT 31 % (35-52); HEMOGLOBIN 10.2 G/DL (11.5-16.0); LYMPHOCYTES # (AUTO) 0.8 X 10^3 (1.0-4.0); LYMPHOCYTES % (AUTO) 18 % (12-44); MEAN CORPUSCULAR HEMOGLOBIN 32 PG (25-34); MEAN CORPUSCULAR HGB CONC 33 G/DL (32-36); MEAN CORPUSCULAR VOLUME 94 FL (80-99); MEAN PLATELET VOLUME 10.7 FL (7.4-10.4); MONOCYTES # (AUTO) 0.4 X 10^3 (0.0-1.0); MONOCYTES % (AUTO) 9 % (0-12); NEUTROPHILS # (AUTO) 3.1 X 10^3 (1.8-7.8); NEUTROPHILS % (AUTO) 68 % (42-75); PLATELET COUNT 105 10^3/uL (130-400); RED BLOOD COUNT 3.24 10^6/uL (4.35-5.85); RED CELL DISTRIBUTION WIDTH 15.8 % (10.0-14.5); WHITE BLOOD COUNT 4.6 10^3/uL (4.3-11.0)
[2018-06-03 03:22] LABS: BUN/CREATININE RATIO 20; CARBON DIOXIDE 26 MMOL/L (21-32); CHLORIDE 106 MMOL/L (98-107); CREATININE SERUM 0.61 MG/DL (0.60-1.30); GFR ESTIMATED > 60; GLUCOSE 102 MG/DL (70-105); MAGNESIUM 1.5 MG/DL (1.8-2.4); PHOSPHORUS 2.8 MG/DL (2.3-4.7); POTASSIUM 3.4 MMOL/L (3.6-5.0); SODIUM 142 MMOL/L (135-145)
[2018-06-03 03:25] LABS: CHOLESTEROL 94 MG/DL (< 200); HDL CHOLESTEROL 36 MG/DL (40-60); TRIGLYCERIDES 49 MG/DL (<150); VLDL CHOLESTEROL 10 MG/DL (5-40)
[2018-06-03] MEDS: ENALAPRILAT 2.5 MG/2 ML (VASOTEC) VIAL IV PRN ×2 (03:27→22:21)
[2018-06-03] MEDS: KCL 20 MEQ TAB (K-DUR) PO SCH (05:53)
[2018-06-03] MEDS: MAGNESIUM 1 GM/100 ML IVPB 100 ML IV SCH ×3 (05:53→08:26)
[2018-06-03] MEDS: POTASSIUM CL 10MEQ/50ML IVPB 50 ML IV SCH ×3 (05:53→08:26)
[2018-06-03] MEDS: CATHETER FLUSH 10 ML SYR IV SCH ×3 (06:21→20:01)
--- NOTE | 2018-06-03 07:30 | Progress Note (SOAP) ---
Subjective Time Seen by a Provider: 07:27 Subjective/Events-last exam Patient lethargic this morning. Patient able to follow orders. Patient knows who I am. Patient does not know where she is at. Patient can move fingers and hands. Patient has trouble picking up arms. Blood pressure better. Platelet count 105,000 Focused Exam Lactate Level 06/02/18 14:21: Lactic Acid Level 1.65 Objective Exam Vital Signs Date Time Temp Pulse Resp B/P (MAP) Pulse Ox O2 Delivery O2 Flow Rate FiO2 06/03/18 06:00 60 24 140/48 (78) 99 Room Air 06/03/18 05:00 60 19 143/51 (81) 99 Room Air 06/03/18 04:00 60 12 150/60 (90) 98 Room Air 06/03/18 04:00 95 Room Air 06/03/18 04:00 97.4 06/03/18 03:00 60 9 173/64 (100) 97 Room Air 06/03/18 02:00 60 12 148/54 (85) 97 Room Air 06/03/18 01:00 60 06/03/18 01:00 60 13 157/57 (90) 97 Room Air 06/03/18 00:00 95 Room Air 06/03/18 00:00 97.3 06/03/18 00:00 97 Room Air 06/03/18 00:00 60 12 130/50 (76) 97 Room Air 06/02/18 23:00 60 12 145/47 (79) 97 Room Air 06/02/18 22:00 61 13 151/50 (83) 97 Room Air 06/02/18 21:39 98.3 06/02/18 21:00 60 12 143/47 (79) 97 Room Air 06/02/18 20:00 97 Room Air 06/02/18 20:00 64 17 150/53 (85) 97 Room Air 06/02/18 20:00 97.0 06/02/18 19:00 60 06/02/18 19:00 60 13 183/101 (128) 97 Room Air 06/02/18 18:00 67 14 194/73 (113) 98 Room Air 06/02/18 17:00 74 17 199/82 (121) 99 Room Air 06/02/18 15:55 98.3 68 22 191/93 98 Room Air 06/02/18 14:24 97.7 66 14 180/78 97 Room Air 06/02/18 08:10 73 199/81 (120) 98 Room Air 06/02/18 08:10 98 Room Air I & O 06/03/18 07:00 Intake Total 0 ml Output Total 1400 ml Balance -1400 ml Capillary Refill : Less Than 3 Seconds General Appearance: No Apparent Distress, WD/WN, Other (Lethargic and weak) HEENT: Normal ENT Inspection Neck: Full Range of Motion, Normal Inspection Respiratory: Chest Non Tender, Lungs Clear, No Accessory Muscle Use, No Respiratory Distress Cardiovascular: Regular Rate, Rhythm, No Murmur Gastrointestinal: non tender, soft Results Lab Laboratory Tests 06/02/18 08:00 06/03/18 02:40 Laboratory Tests 06/02/18 08:00: White Blood Count 4.1L, Red Blood Count 3.67L, Hemoglobin 11.0L, Hematocrit 34L , Mean Corpuscular Volume 94, Mean Corpuscular Hemoglobin 30, Mean Corpuscular Hemoglobin Concent 32, Red Cell Distribution Width 16.1H, Platelet Count 112L, Mean Platelet Volume 11.0H, Neutrophils (%) (Auto) 63, Lymphocytes (%) (Auto) 22 , Monocytes (%) (Auto) 11, Eosinophils (%) (Auto) 3, Basophils (%) (Auto) 1, Neutrophils # (Auto) 2.6, Lymphocytes # (Auto) 0.9L, Monocytes # (Auto) 0.5, Eosinophils # (Auto) 0.1, Basophils # (Auto) 0.0, Prothrombin Time 21.6H, INR Comment 1.9H, Activated Partial Thromboplast Time 36H, D-Dimer 0.76H, Sodium Level 143, Potassium Level 3.6, Chloride Level 105, Carbon Dioxide Level 25, Anion Gap 13, Blood Urea Nitrogen 14, Creatinine 0.73, Estimat Glomerular Filtration Rate > 60, BUN/Creatinine Ratio 19, Glucose Level 116H, Calcium Level 8.3L, Corrected Calcium 9.0, Magnesium Level 1.0*L, Total Bilirubin 1.3H, Aspartate Amino Transf (AST/SGOT) 21, Alanine Aminotransferase (ALT/SGPT) 12, Alkaline Phosphatase 75, Troponin I < 0.30, Total Protein 6.4, Albumin 3.1L, TSH [place] Testing 1.33 06/02/18 08:35: Urine Color YELLOW, Urine Clarity CLEAR, Urine pH 9, Urine Specific [place] 1.015L, Urine Protein NEGATIVE, Urine Glucose (UA) NEGATIVE, Urine Ketones NEGATIVE, Urine Nitrite NEGATIVE, Urine Bilirubin NEGATIVE, Urine Urobilinogen 1 , Urine Leukocyte Esterase NEGATIVE, Urine RBC (Auto) NEGATIVE, Urine RBC NONE, Urine WBC NONE, Urine Squamous Epithelial Cells 0-2, Urine Crystals NONE, Urine Bacteria NEGATIVE, Urine Casts NONE, Urine Mucus NEGATIVE, Urine Culture Indicated NO 06/02/18 10:35: Glucometer 107 06/02/18 14:21: Lactic Acid Level 1.65 06/03/18 02:40: White Blood Count 4.6, Red Blood Count 3.24L, Hemoglobin 10.2L, Hematocrit 31L, Mean Corpuscular Volume 94, Mean Corpuscular Hemoglobin 32, Mean Corpuscular Hemoglobin Concent 33, Red Cell Distribution Width 15.8H, Platelet Count 105L, Mean Platelet Volume 10.7H, Neutrophils (%) (Auto) 68, Lymphocytes (%) (Auto) 18 , Monocytes (%) (Auto) 9, Eosinophils (%) (Auto) 5, Basophils (%) (Auto) 1, Neutrophils # (Auto) 3.1, Lymphocytes # (Auto) 0.8L, Monocytes # (Auto) 0.4, Eosinophils # (Auto) 0.2, Basophils # (Auto) 0.0, Sodium Level 142, Potassium Level 3.4L, Chloride Level 106, Carbon Dioxide Level 26, Anion Gap 10, Blood Urea Nitrogen 12, Creatinine 0.61, Estimat Glomerular Filtration Rate > 60, BUN/ Creatinine Ratio 20, Glucose Level 102, Calcium Level 8.0L, Phosphorus Level 2.8 , Magnesium Level 1.5L, Triglycerides Level 49, Cholesterol Level 94, LDL Cholesterol Direct 50, VLDL Cholesterol 10, HDL Cholesterol 36L Assessment/Plan Assessment/Plan Assess & Plan/Chief Complaint Altered mental status. Weakness. Hypertension. Thrombocytopenia. Diabetes. Coronary artery disease. Subacute CVA versus chronic CVA Clinical Quality Measures Admission Status Admission Dx Altered mental status. CVA. Diabetes. Hypertension. Confusion DVT/VTE Risk/Contraindication: Risk Factor Score Per Nursin RFS Level Per Nursing on Admit: 4+=Very High Other: Pt had DVT in the past ADEN LEE DO Jun 03, 2018 07:30
--- NOTE | 2018-06-03 07:50 | Diagnostic Imaging Report ---
INDICATION: Altered mental status. Compared with study 06/02/2018 FINDINGS: Right IJ at the SVC. Pacemaker device unremarkable. The lungs clear. No effusion or pneumothorax. IMPRESSION: No acute appearing abnormality. Dictated by: Dictated on workstation # [id number]
[2018-06-03] MEDS: ENOXAPARIN 300 MG/3 ML (LOVENOX) MULTI-DOSE VIAL SQ SCH ×2 (09:03→20:01)
--- NOTE | 2018-06-03 09:05 | Speech Therapy Progress Note ---
Therapy Progress Note Orders received for ST services. Notified nursing that speech therapist will see the patient on 06/04/2018. Nursing planned to complete a nursing bedside swallow assessment this date. MICHAELA ARRIAZA PT Jun 03, 2018 09:05
--- NOTE | 2018-06-03 09:37 | Physical Therapy Evaluation ---
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 Pain Numeric Pain Scale: 5-Moderate Pain Location: Soft Tissue Location Body Site: Generalized Pain Description: Acute Objective Patient Orientation: Confused Problem Solving: Poor Attachments: Oxygen, Ji Catheter, IV ROM/Strength ROM Lower Extremities bilateral LE limited due to edema Strength Lower Extremities 2-/5 grossly bilaterally Integumentary/Posture Integumentary noted bilateral LE edema and redness Bladder Incontinence: Ji Cath Posture WFL Neuromuscular (Tone, Coordination, Reflexes) severely diminished coordination due to weakness Sensory Vision: Wears Glasses Hearing: Impaired Sensation Right Lower Extremit: Impaired Sensation Left Lower Extremity: Impaired Transfers Functional [place] Measure 0=Not Assessed/NA 4=Minimal Assistance 1=Total Assistance 5=Supervision or Setup 2=Maximal Assistance 6=Modified [place] 3=Moderate Assistance 7=Complete [place] Transfers (B, C, W/C) (FIM): 1 Scootin Rollin Supine to/from Sit: 1 dependent with all mobility Gait Anticipated Mode of Locomotion: Wheelchair Balance Sitting Static: Fair Sitting Dynamic: Poor Assessment/Needs 78 y.o. female, will benefit from short term skilled PT to address functional strength and mobility to improve current LOF. Patient is severely limited due to weakness and pain. Rehab Potential: Guarded PT Application Technical Designer Goals Application Technical Designer Goals PT Application Technical Designer Goals Time Frame: Jun 12, 2018 Transfers (B,C,W/C) (FIM): 2 PT Plan Problem List Problem List: Activity Tolerance, Functional Strength, Safety, Balance, Gait, Transfer, Bed Mobility Treatment/Plan Treatment Plan: Continue Plan of Care Treatment Plan: Bed Mobility, Education, Functional Activity Mary Ann, Functional Strength, Safety, Therapeutic Exercise, Transfers Treatment Duration: Jun 12, 2018 Frequency: 5 times per week Estimated Hrs Per Day: .25 hour per day Patient and/or Family Agrees t: Yes Discharge Recommendations Therapy D/C Recommendations: Usp Placement, Senior Living (TCU/NH) Time/GCodes Time In: 815 Time Out: 840 Total Billed Treatment Time: 25 Total Billed Treatment 1 visit [facility] 25 min FELISA VERA PT Jun 03, 2018 09:37
--- NOTE | 2018-06-03 09:49 | Consultation-Cardiology ---
HPI-Cardiology Cardiology Consultation: Date of Consultation 06/03/18 Date of Admission Attending Physician Ba Cortez DO Admitting Physician Ba Cortez DO Consulting Physician West POZO MD HPI: Time Seen by a Provider: 10:00 Chief Complaint: Altered mental status This is a 78-year-old lady who has complex medical history. Cardiovascular history includes severe symptomatic sinus node dysfunction status post dual chamber permanent pacemaker implantation, paroxysmal atrial fibrillation on apixaban, hypertension on angiotensin receptor ilir, beta ilir, history of upper extremity DVT. She presents with altered mental status from the alf. No further history is available. She denies any cardiac symptoms including symptoms of syncope, near-syncope, palpitation, chest pain, shortness of breath. Review of Systems-Cardiology Review of Systems Constitutional: As described under HPI; No As described under HPI, No no symptoms reported, No chills, No fever, No lightheadedness Eyes: No As described under HPI, No no symptoms reported, No blindness, No blurred vision, No contact lenses, No drainage, No decreased acuity, No foreign body sensation, No pain, No vision change Ears/Nose/Throat: No As described under HPI, No no symptoms reported, No chronic hearing loss, No ear discharge, No ear pain, No nasal drainage, No ulcerations Respiratory: No no symptoms reported; As described under HPI; No As described under HPI, No cough, No orthopnea, No shortness of breath, No SOB with excertion Cardiovascular: No no symptoms reported; As described under HPI; No As described under HPI, No chest pain, No edema, No irregular heart rate, No lightheadedness, No palpitations Gastrointestinal: No no symptoms reported, No As described under HPI, No abdomen distended, No abdominal pain, No blood streaked bowels, No constipation , No diarrhea, No nausea, No vomiting, No stool coloration changes Genitourinary: No As described under HPI, No burning, No dysuria, No discharge , No frequency, No flank pain, No hematuria, No urgency : Yes : No Skin: No rash, No skin related problems, No ulcerations Psychiatric/Neurological: As described under HPI; No anxiety, No depression, No seizure, No focal weakness, No syncope Hematologic: No bleeding abnormalities [id number] Hx Patient Social History Marrital Status: Employed/Student: retired Alcohol Use: Denies Use Recreational Drug Use: No Smoking Status: Never a Smoker Recent Foreign Travel: No Recent Infectious Disease Expo: No Hospitalization with Isolation: Unknown Physical Abuse Screen: No Sexual Abuse: No Immunizations Up To Date Tetanus Booster (TDap): More than 5yrs Date of Pneumonia Vaccine: Aug 07, 2016 Date of Influenza Vaccine: Jun 09, 2016 Past Medical History PMH As described under Assessment. Family Medical History Family History: Myocardial infarction Allergies and Home Medications Allergies Coded Allergies: Penicillins (Unverified Allergy, Unknown, 04/11/18) codeine (Unverified Allergy, Unknown, 04/11/18) aspirin (Verified Adverse Reaction, Unknown, NAUSEA, 04/11/18) Home Medications Apixaban 5 Mg Tablet, 5 MG PO BID, (Reported) Atorvastatin Calcium 40 Mg Tablet, 40 MG PO HS, (Reported) C,E,Zinc,Copper 11/Mfgqh5a/Lut 1 Each Capsule, 1 CAP PO DAILY, (Reported) Donepezil HCl 5 Mg Tablet, 5 MG PO HS, (Reported) Fesoterodine Fumarate 4 Mg Tab.sr.24h, 4 MG PO DAILY, (Reported) Fish Oil/Dha/Epa 1 Each Capsule, 1,200 MG PO BID, (Reported) Furosemide 40 Mg Tablet, 40 MG PO DAILY, (Reported) Lisinopril 20 Mg Tablet, 20 MG PO DAILY, (Reported) Loperamide HCl 2 Mg Tablet, 2 MG PO Q12H PRN for DIARRHEA, (Reported) Magnesium Oxide 250 Mg Tablet, 250 MG PO BID, (Reported) Metformin HCl 500 Mg Tablet, 500 MG PO BID, (Reported) Metoprolol Succinate 25 Mg Tab.er.24h, 25 MG PO DAILY, (Reported) Miconazole Nitrate 133 Gm Aero.powd, TP Q12H PRN for RASH, (Reported) Multivitamin with Minerals 1 Each Tablet, 1 TAB PO DAILY, (Reported) Omeprazole 40 Mg Capsule.dr, 40 MG PO DAILY, (Reported) Telmisartan 80 Mg Tablet, 80 MG PO DAILY, (Reported) Patient Home Medication List Home Medication List Reviewed: Yes Physical Exam-Cardiology Physical Exam Vital Signs/I&O 06/03/18 06/03/18 06/03/18 06/03/18 03:00 04:00 04:00 04:00 Temp 97.4 Pulse 60 60 Resp 9 12 B/P (MAP) 173/64 (100) 150/60 (90) Pulse Ox 97 95 98 O2 Delivery Room Air Room Air Room Air 06/03/18 06/03/18 06/03/18 06/03/18 05:00 06:00 07:00 07:00 Temp 97.6 Pulse 60 60 60 Resp 19 24 26 B/P (MAP) 143/51 (81) 140/48 (78) 149/59 (89) Pulse Ox 99 99 98 O2 Delivery Room Air Room Air Room Air 06/03/18 06/03/18 06/03/18 06/03/18 07:00 08:00 08:00 09:00 Pulse 60 60 60 Resp 16 8 B/P (MAP) 167/68 (101) 166/69 (101) Pulse Ox 99 95 98 O2 Delivery Room Air Room Air Room Air 06/03/18 06/03/18 06/03/18 06/03/18 10:00 11:00 12:00 12:00 Temp 97.2 Pulse 60 60 60 Resp 11 12 18 B/P (MAP) 151/57 (88) 154/58 (90) 153/57 (89) Pulse Ox 99 100 100 95 O2 Delivery Room Air Room Air Room Air Room Air 06/03/18 06/03/18 13:00 13:00 Pulse 60 60 Resp 16 B/P (MAP) 143/57 (85) Pulse Ox 99 O2 Delivery Room Air 06/03/18 00:00 Intake Total 0 ml Output Total 950 ml Balance -950 ml Capillary Refill : Less Than 3 Seconds Constitutional: appears stated age; No apparent distress; well-developed, well- nourished HEENT: PERRL; No normal ENT inspection, No TMs normal, No pharynx normal, No scleral icterus (R), No scleral icterus (L), No pale conjunctivae (R), No pale conjunctivae (L), No photophobia, No TM abnormal (R), No TM abnormal (L), No pharyngeal erythema, No tonsillar exudate, No other, No discharge, No EOMI; hearing is well preserved; No hard of hearing; oral hygience is good; No ulceration, No xanthelasmas are seen Neck: No non-tender, No full range of motion, No supple, No normal inspection, No carotid bruit, No limited range of motion, No lymphadenopathy (R), No lymphadenopathy (L), No tender lateral, No tender midline, No thyromegaly, No other; carotid pulses are 2 + bilaterally; No with good upstrokes Respiratory: No accessory muscle use, No respiratory distress, No chest tender , No chest expansion is symmetric; chest is bilaterally symmetric; No lungs clear to percussion; lungs clear to auscultation; No crackles, No rhonchi, No rales, No stridor, No wheezing, No pleural rub, No other Cardiovascular: regular rate-rhythm; No irregularly irregular, No extra beats, No parasternal heave is noted, No JVD, No edema, No bradycardia, No tachycardia , No point of maximal impulse, No cardiac thrills are palpable; S1 and S2; No gallop/S3, No gallop/S4, No diastolic murmur, No systolic murmur, No friction rub, No click, No other Gastrointestinal: No tender, No soft, No round, No distended, No pulsatile mass , No organomegaly, No guarding, No rebound, No tenderness, No hernia, No mass, No audible bowel sounds, No abnormal bowel sounds, No abdominal bruits, No spleenomegaly, No other Rectal: deferred Extremities: No normal range of motion, No non-tender, No normal inspection, No pedal edema, No calf tenderness, No normal capillary refill, No pelvis stable , No calf tenderness, No inflammation, No pedal edema, No slow capillary refill , No swelling, No other, No abrasion, No clubbing, No cyanosis, No ecchymosis, No laceration, No no lower extremity edema bilateral, No significant edema, No tenderness, No wound Neurologic/Psychiatric: alert, normal mood/affect, power is 5/5 both on sides Skin: No rash, No ulcerations Data Review Labs Laboratory Tests 06/02/18 14:21: Lactic Acid Level 1.65 06/03/18 02:40: White Blood Count 4.6, Red Blood Count 3.24L, Hemoglobin 10.2L, Hematocrit 31L, Mean Corpuscular Volume 94, Mean Corpuscular Hemoglobin 32, Mean Corpuscular Hemoglobin Concent 33, Red Cell Distribution Width 15.8H, Platelet Count 105L, Mean Platelet Volume 10.7H, Neutrophils (%) (Auto) 68, Lymphocytes (%) (Auto) 18 , Monocytes (%) (Auto) 9, Eosinophils (%) (Auto) 5, Basophils (%) (Auto) 1, Neutrophils # (Auto) 3.1, Lymphocytes # (Auto) 0.8L, Monocytes # (Auto) 0.4, Eosinophils # (Auto) 0.2, Basophils # (Auto) 0.0, Sodium Level 142, Potassium Level 3.4L, Chloride Level 106, Carbon Dioxide Level 26, Anion Gap 10, Blood Urea Nitrogen 12, Creatinine 0.61, Estimat Glomerular Filtration Rate > 60, BUN/ Creatinine Ratio 20, Glucose Level 102, Calcium Level 8.0L, Phosphorus Level 2.8 , Magnesium Level 1.5L, Triglycerides Level 49, Cholesterol Level 94, LDL Cholesterol Direct 50, VLDL Cholesterol 10, HDL Cholesterol 36L ECG Impression ECG Comment Atrial paced, ventricular sensed rhythm. A/P-Cardiology Assessment/Admission Diagnosis Altered mental status, Previous history of CVA, Severe sinus node dysfunction, status post permanent pacemaker implantation, Paroxysmal atrial fibrillation, Hypomagnesemia Plan Altered mental status: Unclear etiology. ? cva, ? Electrolyte imbalance. Deferred to Dr. Cortez. telemetry shows atrial pacing with normal ventricular sensing. Remote monitoring of pacemaker shows normal device function with no bradycardic episodes. Previous dual-chamber permanent pacemaker implantation for symptomatic severe sinus node dysfunction, atrial fibrillation. History of Left upper extremity swelling/DVT associated with PICC line placement.: On apixaban. Hypomagnesemia, corrected Anemia, mild thrombocytopenia, seen previously by Dr Clifton, Paroxysmal atrial fibrillation, on apixaban History of CVA with subsequent dysphasia, but has improved Echo of 03/18/18: LVEF 55-60%, AoV sclerosis w/o stenosis, PASP 30 mmHg No angiographically significant coronary artery disease, normal global left ventricular systolic function with an ejection fraction of approximately 60 to 65%, elevated left ventricular end-diastolic pressure indicative of some degree of diastolic dysfunction of the left ventricle, and no significant mitral regurgitation per cardiac catheterization from 01/06/12 Diabetes mellitus II Hypertension. Chronic bilateral leg swelling, likely related to venous insufficiency. Hyperlipidemia Chronic back pain and degenerative joint disease. Thank you for your consultation. Please call me if you have any questions. Elgin Pozo MD, FACP, FACC, FSCAI, FHRS, CCDS Interventional Cardiology Cardiac Electrophysiology Vascular Medicine and Endovascular Interventions Clinical Quality Measures DVT/VTE Risk/Contraindication: Risk Factor Score Per Nursin RFS Level Per Nursing on Admit: 4+=Very High Other: Pt had DVT in the past West POZO MD Jun 03, 2018 9:49 am
[2018-06-03] MEDS ORDERED: LOPE2TAB34 PO (11:15)
[2018-06-03] MEDS ORDERED: METO-387 PO (11:15)
[2018-06-03] MEDS ORDERED: MAGN250T13 PO (11:15)
[2018-06-03] MEDS ORDERED: MULT-166 PO (11:15)
[2018-06-03] MEDS ORDERED: DONE5TAB30 PO (11:15)
[2018-06-03] MEDS ORDERED: LISI-552 PO (11:15)
[2018-06-03] MEDS ORDERED: FURO40TA4 PO (11:15)
[2018-06-03] MEDS ORDERED: MICO133A2 TP (11:15)
[2018-06-03] MEDS ORDERED: APIX5TAB PO (11:15)
[2018-06-03] MEDS ORDERED: MULT-35 PO (11:15)
[2018-06-04] VITALS (17 sets, daily range): BP systolic 137–170; BP diastolic 44–80
[2018-06-04] MEDS: fentaNYL INJECTION 100 MCG/2 ML AMP IV PRN ×2 (00:47→03:40)
[2018-06-04] MEDS: meTOprolol 5 MG/5 ML (LOPRESSOR) VIAL IV SCH ×2 (00:47→06:41)
[2018-06-04] MEDS ORDERED: ONDANSETRON 4 MG/2 ML (SDV) Z0FRAN ONE (03:52)
[2018-06-04 04:01] LABS: BASOPHILS % (AUTO) 1 % (0-10); EOSINOPHILS # (AUTO) 0.2 10^3/uL (0.0-0.3); EOSINOPHILS % (AUTO) 6 % (0-10); HEMATOCRIT 31 % (35-52); LYMPHOCYTES # (AUTO) 0.9 X 10^3 (1.0-4.0); LYMPHOCYTES % (AUTO) 21 % (12-44); MEAN CORPUSCULAR HEMOGLOBIN 30 PG (25-34); MEAN CORPUSCULAR HGB CONC 32 G/DL (32-36); MEAN CORPUSCULAR VOLUME 95 FL (80-99); MEAN PLATELET VOLUME 10.6 FL (7.4-10.4); MONOCYTES # (AUTO) 0.3 X 10^3 (0.0-1.0); MONOCYTES % (AUTO) 8 % (0-12); NEUTROPHILS # (AUTO) 2.7 X 10^3 (1.8-7.8); NEUTROPHILS % (AUTO) 65 % (42-75); PLATELET COUNT 112 10^3/uL (130-400); RED BLOOD COUNT 3.29 10^6/uL (4.35-5.85); RED CELL DISTRIBUTION WIDTH 15.8 % (10.0-14.5); WHITE BLOOD COUNT 4.1 10^3/uL (4.3-11.0)
[2018-06-04 04:11] LABS: BUN/CREATININE RATIO 18; CALCIUM 8.1 MG/DL (8.5-10.1); CARBON DIOXIDE 26 MMOL/L (21-32); CHLORIDE 108 MMOL/L (98-107); GFR ESTIMATED > 60; GLUCOSE 78 MG/DL (70-105); MAGNESIUM 1.8 MG/DL (1.8-2.4); PHOSPHORUS 2.9 MG/DL (2.3-4.7); POTASSIUM 3.6 MMOL/L (3.6-5.0); SODIUM 142 MMOL/L (135-145)
[2018-06-04] MEDS ORDERED: ONDANSETRON 4 MG/2 ML (SDV) Z0FRAN IV PRN (04:45)
[2018-06-04] MEDS: POTASSIUM CL 10MEQ/50ML IVPB 50 ML IV SCH ×3 (06:36→06:38)
[2018-06-04] MEDS: MAGNESIUM 1 GM/100 ML IVPB 100 ML IV SCH (06:37)
[2018-06-04] MEDS: KCL 20 MEQ TAB (K-DUR) PO SCH (06:38)
[2018-06-04] MEDS: CATHETER FLUSH 10 ML SYR IV SCH ×3 (06:39→20:32)
--- NOTE | 2018-06-04 07:06 | Diagnostic Imaging Report ---
INDICATION: Dyspnea. COMPARISON: 06/03/2018 FINDINGS: Single frontal radiographic view of the chest was obtained and demonstrates stable borderline prominent cardiac silhouette. Pulmonary vasculature is within normal limits. Lungs are clear. There is no focal consolidation, large effusion, nor pneumothorax. Right internal jugular central venous catheter tip terminates in the low SVC. Left-sided dual-lead pacemaker is again noted. Bony structures show no gross acute abnormalities. IMPRESSION: 1. No acute cardiopulmonary process. Dictated by: Dictated on workstation # [id number]
--- NOTE | 2018-06-04 07:36 | Progress Note (SOAP) ---
Subjective Time Seen by a Provider: 07:34 Subjective/Events-last exam Doing better today. Patient knows where she is patient knows my name. Patient knows her name. Patient knows she is in the hospital. Patient needs speech evaluation for foot. Patient transferred to medical floor today Focused Exam Lactate Level 06/02/18 14:21: Lactic Acid Level 1.65 Objective Exam Vital Signs Date Time Temp Pulse Resp B/P (MAP) Pulse Ox O2 Delivery O2 Flow Rate FiO2 06/04/18 06:00 60 16 140/44 (76) 97 Room Air 06/04/18 05:00 60 12 137/50 (79) 98 Room Air 06/04/18 04:00 97 Room Air 06/04/18 04:00 60 22 137/65 (89) 98 Room Air 06/04/18 03:00 60 11 170/65 (100) 98 Room Air 06/04/18 02:00 60 19 159/71 (100) 100 Room Air 06/04/18 01:00 60 11 159/67 (97) 100 Room Air 06/04/18 01:00 60 06/04/18 00:00 97 Room Air 06/04/18 00:00 60 10 154/71 (98) 97 Room Air 06/03/18 23:00 60 12 109/46 (67) 98 Room Air 06/03/18 22:00 60 11 158/57 (90) 97 Room Air 06/03/18 21:57 97.2 06/03/18 21:00 60 16 147/58 (87) 98 Room Air 06/03/18 20:00 97 Room Air 06/03/18 20:00 60 17 176/64 (101) 99 Room Air 06/03/18 19:00 60 06/03/18 19:00 60 12 116/44 (68) 98 Room Air 06/03/18 18:00 60 24 117/43 (67) 95 Room Air 06/03/18 17:00 60 40 138/60 (86) 99 Room Air 06/03/18 16:00 60 18 154/59 (90) 98 Room Air 06/03/18 15:49 99 Room Air 06/03/18 15:00 60 22 168/55 (92) 99 Room Air 06/03/18 14:00 60 13 149/58 (88) 99 Room Air 06/03/18 13:00 60 10/4/18 13:00 60 16 143/57 (85) 99 Room Air 06/03/18 12:00 95 Room Air 06/03/18 12:00 97.2 60 18 153/57 (89) 100 Room Air 06/03/18 11:00 60 12 154/58 (90) 100 Room Air 06/03/18 10:00 60 11 151/57 (88) 99 Room Air 06/03/18 09:00 60 8 166/69 (101) 98 Room Air 06/03/18 08:00 95 Room Air 06/03/18 08:00 60 16 167/68 (101) 99 Room Air I & O 06/04/18 07:00 Intake Total 0 ml Output Total 960 ml Balance -960 ml Capillary Refill : Less Than 3 Seconds General Appearance: No Apparent Distress, WD/WN HEENT: Normal ENT Inspection Neck: Full Range of Motion, Normal Inspection Respiratory: Lungs Clear, No Accessory Muscle Use, No Respiratory Distress Cardiovascular: Regular Rate, Rhythm, No Murmur Gastrointestinal: non tender, soft Results Lab Laboratory Tests 06/04/18 03:12 Laboratory Tests 06/04/18 03:12: White Blood Count 4.1L, Red Blood Count 3.29L, Hemoglobin 10.0L, Hematocrit 31L , Mean Corpuscular Volume 95, Mean Corpuscular Hemoglobin 30, Mean Corpuscular Hemoglobin Concent 32, Red Cell Distribution Width 15.8H, Platelet Count 112L, Mean Platelet Volume 10.6H, Neutrophils (%) (Auto) 65, Lymphocytes (%) (Auto) 21 , Monocytes (%) (Auto) 8, Eosinophils (%) (Auto) 6, Basophils (%) (Auto) 1, Neutrophils # (Auto) 2.7, Lymphocytes # (Auto) 0.9L, Monocytes # (Auto) 0.3, Eosinophils # (Auto) 0.2, Basophils # (Auto) 0.0, Sodium Level 142, Potassium Level 3.6, Chloride Level 108H, Carbon Dioxide Level 26, Anion Gap 8, Blood Urea Nitrogen 11, Creatinine 0.60, Estimat Glomerular Filtration Rate > 60, BUN/ Creatinine Ratio 18, Glucose Level 78, Calcium Level 8.1L, Phosphorus Level 2.9 , Magnesium Level 1.8 Microbiology 06/02/18 Blood Culture - Preliminary, Resulted No growth Assessment/Plan Assessment/Plan Assess & Plan/Chief Complaint Altered mental status. Weakness. Hypertension. Thrombocytopenia. Diabetes. Coronary artery disease. Subacute CVA versus chronic CVA. . 06/04/18. Altered mental status resolved. Weakness. Hypertension better. Thrombocytopenia. Diabetes. Coronary artery disease. Subacute CVA versus chronic CVA. Patient looking much better. Patient to be evaluated by speech therapy for food and drink. Patient to be transferred to medical floor Clinical Quality Measures Admission Status Admission Dx Altered mental status. CVA. Diabetes. Hypertension. Confusion DVT/VTE Risk/Contraindication: Risk Factor Score Per Nursin RFS Level Per Nursing on Admit: 4+=Very High Other: Pt had DVT in the past ADEN LEE DO Jun 04, 2018 07:36
[2018-06-04] MEDS: ENOXAPARIN 300 MG/3 ML (LOVENOX) MULTI-DOSE VIAL SQ SCH (08:54)
[2018-06-04] MEDS ORDERED: lisINopril 10 MG (PRINIVIL) TABLET PO SCH (09:00)
--- NOTE | 2018-06-04 09:09 | Cardiology Progress Note ---
Cardiology SOAP Progress Note Subjective: No significant cardiac complaints. Objective: I&O/Vital Signs 06/05/18 06/05/18 06/05/18 04:00 08:00 08:05 Temp 96.2 96.4 Pulse 60 60 Resp 16 20 B/P (MAP) 139/59 (85) 151/68 (95) Pulse Ox 98 99 98 O2 Delivery Room Air Room Air Room Air 06/05/18 00:00 Intake Total 520 ml Output Total 300 ml Balance 220 ml Weight (Pounds): 284 Weight (Ounces): 0.0 Weight (Calculated Kilograms): 128.853787 Constitutional: appears stated age; No apparent distress; well-developed, well- nourished Respiratory: No accessory muscle use, No respiratory distress, No chest tender , No chest expansion is symmetric; chest is bilaterally symmetric; No lungs clear to percussion; lungs clear to auscultation; No crackles, No rhonchi, No rales, No stridor, No wheezing, No pleural rub, No other Cardiovascular: regular rate-rhythm; No irregularly irregular, No extra beats, No parasternal heave is noted, No JVD, No edema, No bradycardia, No tachycardia , No point of maximal impulse, No cardiac thrills are palpable; S1 and S2; No gallop/S3, No gallop/S4, No diastolic murmur, No systolic murmur, No friction rub, No click, No other Gastrointestional: No tender, No soft, No round, No distended, No pulsatile mass, No organomegaly, No guarding, No rebound, No tenderness, No hernia, No mass, No audible bowel sounds, No abnormal bowel sounds, No abdominal bruits, No spleenomegaly, No other Extremities: No normal range of motion, No non-tender, No normal inspection, No pedal edema, No calf tenderness, No normal capillary refill, No pelvis stable , No calf tenderness, No inflammation, No pedal edema, No slow capillary refill , No swelling, No other, No abrasion, No clubbing, No cyanosis, No ecchymosis, No laceration, No no lower extremity edema bilateral, No significant edema, No tenderness, No wound Neurologic/Psychiatric: alert, normal mood/affect, power is 5/5 both on sides Skin: No rash, No ulcerations Results/Procedures: Labs Laboratory Tests 06/05/18 04:52: White Blood Count 3.5L, Red Blood Count 2.90L, Hemoglobin 9.2L, Hematocrit 28L, Mean Corpuscular Volume 95, Mean Corpuscular Hemoglobin 32, Mean Corpuscular Hemoglobin Concent 34, Red Cell Distribution Width 15.3H, Platelet Count 101L, Mean Platelet Volume 10.5H, Neutrophils (%) (Auto) 62, Lymphocytes (%) (Auto) 22 , Monocytes (%) (Auto) 10, Eosinophils (%) (Auto) 6, Basophils (%) (Auto) 1, Neutrophils # (Auto) 2.2, Lymphocytes # (Auto) 0.8L, Monocytes # (Auto) 0.4, Eosinophils # (Auto) 0.2, Basophils # (Auto) 0.0, Sodium Level 141, Potassium Level 3.6, Chloride Level 108H, Carbon Dioxide Level 25, Anion Gap 8, Blood Urea Nitrogen 13, Creatinine 0.66, Estimat Glomerular Filtration Rate > 60, BUN/ Creatinine Ratio 20, Glucose Level 93, Calcium Level 8.0L, Corrected Calcium 9.2 , Total Bilirubin 1.6H, Aspartate Amino Transf (AST/SGOT) 17, Alanine Aminotransferase (ALT/SGPT) 9, Alkaline Phosphatase 63, Total Protein 5.1L, Albumin 2.5L Microbiology 06/02/18 Blood Culture - Preliminary, Resulted No growth 06/03/18 MRSA Screen - Final, Complete MRSA not isolated A/P: Assessment/Dx: Altered mental status, Previous history of CVA, Severe sinus node dysfunction, status post permanent pacemaker implantation, Paroxysmal atrial fibrillation, Hypomagnesemia Plan: Altered mental status: Unclear etiology. ? cva, ? Electrolyte imbalance. Deferred to Dr. Cortez. telemetry shows atrial pacing with normal ventricular sensing. Remote monitoring of pacemaker shows normal device function with no bradycardic episodes. Previous dual-chamber permanent pacemaker implantation for symptomatic severe sinus node dysfunction, atrial fibrillation. History of Left upper extremity swelling/DVT associated with PICC line placement.: On apixaban. Hypomagnesemia, corrected Anemia, mild thrombocytopenia, seen previously by Dr Clifton, Paroxysmal atrial fibrillation, on apixaban History of CVA with subsequent dysphasia, but has improved Echo of 03/18/18: LVEF 55-60%, AoV sclerosis w/o stenosis, PASP 30 mmHg No angiographically significant coronary artery disease, normal global left ventricular systolic function with an ejection fraction of approximately 60 to 65%, elevated left ventricular end-diastolic pressure indicative of some degree of diastolic dysfunction of the left ventricle, and no significant mitral regurgitation per cardiac catheterization from 01/06/12 Diabetes mellitus II Hypertension. Chronic bilateral leg swelling, likely related to venous insufficiency. Hyperlipidemia Chronic back pain and degenerative joint disease. Thank you for your consultation. Please call me if you have any questions. Elgin Colvin MD, FACP, FACC, FSCAI, FHRS, CCDS Interventional Cardiology Cardiac Electrophysiology Vascular Medicine and Endovascular Interventions Focused Exam Lactate Level 06/02/18 14:21: Lactic Acid Level 1.65 West COLVIN MD Jun 04, 2018 09:09
--- NOTE | 2018-06-04 09:22 | Physical Therapy Daily Note ---
PT Daily Note-Current Subjective Patient is more alert on this date. Pain Numeric Pain Scale: 0-No Pain Location: No Pain Reported Mental Status Patient Orientation: Person, Situation Attachments: Ji Catheter Transfers Functional [place] Measure 0=Not Assessed/NA 4=Minimal Assistance 1=Total Assistance 5=Supervision or Setup 2=Maximal Assistance 6=Modified [place] 3=Moderate Assistance 7=Complete IndependenceIRFPAI Quality Coding Scale 6 Independent with activity with or without an assistive device 5 Patient requires set up or clean up by helper. Patient completes activity by themselves 4 Supervision or touching assist (CGA). Andreas provide cues , steadying assist 3 The helper provides less than half the effort to complete the activity 2 The helper provides more than half the effort to complete the activity 1 Dependent. The helper does all the effort to complete an activity 7 Patient refused to complete or attempt activity 9 The patient did not perform the activity before the current illness or injury 88 Not attempted due to Medical conditions or safety concerns Transfers (B, C, W/C) (FIM): 2 Scootin Rollin Supine to/from Sit: 2 Sit to/from Stand: 2 Bed to/from Chair: 2 Patient did assist with mobility on this date. Exercises Seated Therapy Exercises: Ankle pumps, Long arc quads Seated Reps: 15 Assessment Patient requires time to complete all functional tasks. Improving slowly. From a PT standpoint, patient will continue to require LTCF for care and recovery. PT Tree Trimmer Helper Goals Detention Goals PT Tree Trimmer Helper Goals Time Frame: Jun 12, 2018 Transfers (B,C,W/C) (FIM): 2 PT Plan Treatment/Plan Treatment Plan: Continue Plan of Care Treatment Plan: Bed Mobility, Education, Functional Activity Mary Ann, Functional Strength, Safety, Therapeutic Exercise, Transfers Treatment Duration: Jun 12, 2018 Frequency: 5 times per week Estimated Hrs Per Day: .25 hour per day Patient and/or Family Agrees t: Yes Time/GCodes Time In: 800 Time Out: 823 Total Billed Treatment Time: 23 Total Billed Treatment 1 visit FA x 2 23 min FELISA VERA PT Jun 04, 2018 09:22
[2018-06-04] MEDS: TELMISARTAN 40 MG (MICARDIS) TAB PO SCH (09:57)
--- NOTE | 2018-06-04 10:56 | ST Dysphagia Evaluation ---
Speech Evaluation-General Medical Diagnosis AMS/CVA Onset Date: Jun 02, 2018 Therapy Diagnosis Therapy Diagnosis: PHARYNGEAL DYSPHAGIA Precautions Precautions: Aspiration Precautions/Isolations: Aspiration, Fall Prevention, Standard Precautions PATIENT INDICATED THAT SHE HAD BEEN SEEN BY SPEECH-PATHOLOGY IN THE PAST, RECALLING THE CURRENT SCHOOL PSYCHOLOGY SPECIALIST AT THIS HOSPITAL AND HER SNF SCHOOL PSYCHOLOGY SPECIALIST IN [place]. Referral Referring Physician: JESUS Reason for Referral: Evaluation/Treatment Medical History Pertinent Medical History: Atrial Fib, Arthritis, CVA, DM, GERD, HTN, OA DIABETES, A-FIB, GERD, OBESITY & WEAKNESS Reviewed History: Yes Social History Home: [facility] Speech PLF/Current-Dysphagia Prior Level of Function PATIENT INDICATED THAT SHE WAS ON A THICKENED LIQUID BUT COULD NOT RECALL THE VISCOSITY. Subjective THE PATIENT WAS PLEASANT, COOPERATIVE AND AGREEABLE TO SEE THIS SCHOOL PSYCHOLOGY SPECIALIST. Cognitive Status Patient Orientation: Person, Place, Time Oral Motor Skills Dentition: Natural Current Food Consistancy: Regular Ability to Follow Directions: Good Oral Expression Ability: No Impairment Voice Voice Phonatory-Based Quality: Normal Voice Pitch: Pitch Breaks Voice Loudness: Normal Face Facial Symmetry: Symmetrical Oral-Facial Assessment Oral-Facial Dentition: Normal Labial Seal Description: Normal Smile: Normal Puff Cheeks: Normal Lingual Protrusion: Normal Lingual ROM: Normal Lingual Strength: Normal Gag Reflex Response: Normal Pharynx Velopharyngeal Move.: DELAYED Volitional Dry Swallow: Yes Voluntary Cough: Yes Can Clear Throat Volitionally: Yes Productive Cough: Yes Productive Throat Clear: Yes Dysphagia Evaluation Consistencies Presented: Regular, Thin Liquid, Mechanical Soft, [place] Thick Liquid, Ground, Honey Thick Liquid Oral Phase: Reduced Oral Transit THE PATIENT DEMONSTRATED FACIAL GRIMACING WHEN PRESENTED WITH REGULAR AND MECHANICAL SOFT CONSISTENCIES. Pharyngeal Phase: Decreased A/P Bolus Transit, Multiple Swallow Attempts, Reduced Laryngeal Elevation, Delayed Swallow PATIENT INDICATED THAT IT WAS DIFFICULT TO "START" THE SWALLOW. Funct. Velo/Pharyngeal Symptom: Clears Throat, Cough After Swallow, Wet Voice Dietary Recommendations: Mechanical Soft Liquid Recommendations: Honey Consistancy Swallowing Precautions: Chin Tuck, Sitting Upright 90 Degrees, Sitting 90 Degrees 30 Post Intake Dysphagia Evaluation Summary THE PATIENT PRESENTS WITH PHARYNGEAL DYSPHAGIA CHARACTERIZED BY REDUCED LARYNGEAL ELEVATION AND POOR AIRWAY PROTECTION. Speech Short Term Goals Short Term Goals Short Term Goals 1) THE PATIENT WILL BE TYRON TO EXECUTE COMPENSATORY SWALLOW STRATEGIES FOR AIRWAY PROTECTION WITH AT LEAST 80% RETURN. 2) GIVEN TRIALS OF ALTERED DIET, THE PATIENT WILL BE ABLE TO SELF-MONITOR HER SWALLOW STRATEGIES TO IMPROVE AIRWAY PROTECTION WITHOUT CUES OR PROMPTS IN AT LEAST 80% OF TRIALS. Speech Shelter Goals Shelter Goals 1) THE PATIENT WILL BE ABLE TO COMPLETE LARYNGEAL STRENGTHENING ACTIVITIES TO IMPROVE AIRWAY CLEARANCE DURING SWALLOW WITH AT LEAST 80% RETURN. 2) THE PATIENT WILL PARTICIPATE IN EDUCATION REGARDING SAFE SWALLOWING, DIET RECOMMENDATIONS WELL CAREGIVER EDUCATION FOR IMPROVED SAFETY AND UNDERSTANDING OF DYSPHAGIA WITH FEWER THAN 2 QUESTIONS FOLLOWING EDUCATION. Speech-Plan Patient/Family Goals Patient/Family Goals: TO BE ABLE TO EAT. Treatment Plan Speech Therapy Treatment Plan: Continue Plan of Care YADIEL Ayala DYST TIME IN/OUT: [id number] THE PATIENT AND THIS SCHOOL PSYCHOLOGY SPECIALIST REVIEWED BEDSIDE SWALLOW RESULTS, DIETARY RECOMMENDATIONS AND ATTEMPTS TO COMPLETE A CHIN-TUCK TO IMPROVE AIRWAY PROTECTION USING HONEY-THICKENED LIQUIDS. THE PATIENT TOLERATED AROUND 8/10 TRIALS WITHOUT S/S OF ASPIRATION BUT FATIGUED QUICKLY. SCHOOL PSYCHOLOGY SPECIALIST TO FOLLOW UP AT 5 X WEEK FOR DYSPHAGIA TREATMENT AND RECOMMENDATIONS FOR DIETARY UPGRADE. Frequency: 5 times per week Estimated Hrs Per Day: .25 hour per day Rehab Potential: Guarded Barriers to Learning: PHYSICAL LIMITATIONS. Pt/Family Agrees to Plan: Yes Safety Risks/Education Teaching Recipient: Patient Teaching Methods: Demonstration, Discussion Response to Teaching: Verbalize Understanding, Return Demonstration Education Topics Provided: COMPENSATORY SWALLOW STRATEGY - CHIN TUCK Discharge Recommendations Correction (TCU/NH) Time Speech Therapy Time In: 08:25 Speech Therapy Time Out: 08:50 Total Billed Time: 25 Billed Treatment Time 1, ROBS (15 MIN), DYST (10 MIN) FIONA Ball Jun 04, 2018 10:56
[2018-06-04] MEDS ORDERED: NON-FORMULARY MEDICATION 1 EA EA (Loperamide HCl (Loperamide) 2 MG) PO PRN (12:00)
[2018-06-04] MEDS ORDERED: LOPERAMIDE 2 MG (IMODIUM) CAP PO PRN (12:30)
[2018-06-04] MEDS: OMEGA 3 (FISH OIL) 1000 MG CAP PO SCH (18:06)
[2018-06-04] MEDS: metFORMIN 500 MG (GLUCOPHAGE) TAB PO SCH (18:06)
[2018-06-04] MEDS: MAGNESIUM OXIDE (MAG-OX)400 MG TAB PO SCH (20:31)
[2018-06-04] MEDS: APIXABAN 5 MG (ELIQUIS) TABLET PO SCH (20:31)
[2018-06-04] MEDS: DONEPEZIL 5 MG (ARICEPT) TAB PO SCH (20:31)
[2018-06-04] MEDS: ATORVASTATIN 40 MG (LIPITOR) TABLET PO SCH (20:31)
[2018-06-04] MEDS ORDERED: NON-FORMULARY MEDICATION 1 EA EA (Magnesium Oxide (Magnesium) 250 MG) PO SCH (21:00)
[2018-06-04] MEDS ORDERED: NON-FORMULARY MEDICATION 1 EA EA (Metformin HCl 500 MG) PO SCH (21:00)
[2018-06-05] VITALS: BP 161/68
[2018-06-05 04:00] VITALS: BP 139/59
[2018-06-05 05:02] LABS: BASOPHILS % (AUTO) 1 % (0-10); EOSINOPHILS # (AUTO) 0.2 10^3/uL (0.0-0.3); EOSINOPHILS % (AUTO) 6 % (0-10); HEMATOCRIT 28 % (35-52); HEMOGLOBIN 9.2 G/DL (11.5-16.0); LYMPHOCYTES # (AUTO) 0.8 X 10^3 (1.0-4.0); LYMPHOCYTES % (AUTO) 22 % (12-44); MEAN CORPUSCULAR HEMOGLOBIN 32 PG (25-34); MEAN CORPUSCULAR HGB CONC 34 G/DL (32-36); MEAN CORPUSCULAR VOLUME 95 FL (80-99); MEAN PLATELET VOLUME 10.5 FL (7.4-10.4); MONOCYTES # (AUTO) 0.4 X 10^3 (0.0-1.0); MONOCYTES % (AUTO) 10 % (0-12); NEUTROPHILS # (AUTO) 2.2 X 10^3 (1.8-7.8); NEUTROPHILS % (AUTO) 62 % (42-75); PLATELET COUNT 101 10^3/uL (130-400); RED CELL DISTRIBUTION WIDTH 15.3 % (10.0-14.5); WHITE BLOOD COUNT 3.5 10^3/uL (4.3-11.0)
[2018-06-05 05:17] LABS: ALANINE AMINOTRANSFERASE 9 U/L (0-55); ALBUMIN 2.5 GM/DL (3.2-4.5); ALKALINE PHOSPHATASE 63 U/L (40-136); BILIRUBIN,TOTAL 1.6 MG/DL (0.1-1.0); BUN/CREATININE RATIO 20; CARBON DIOXIDE 25 MMOL/L (21-32); CHLORIDE 108 MMOL/L (98-107); CREATININE SERUM 0.66 MG/DL (0.60-1.30); GFR ESTIMATED > 60; GLUCOSE 93 MG/DL (70-105); POTASSIUM 3.6 MMOL/L (3.6-5.0); SODIUM 141 MMOL/L (135-145); TOTAL PROTEIN 5.1 GM/DL (6.4-8.2)
[2018-06-05] MEDS: CATHETER FLUSH 10 ML SYR IV SCH ×3 (06:25→20:41)
[2018-06-05] MEDS: metFORMIN 500 MG (GLUCOPHAGE) TAB PO SCH ×2 (06:44→17:05)
[2018-06-05] MEDS: MULTIVIT W/MINERALS TAB (THERAGRAN M) PO SCH (06:44)
[2018-06-05] MEDS: OMEGA 3 (FISH OIL) 1000 MG CAP PO SCH ×2 (06:44→17:05)
[2018-06-05] MEDS: PANTOPRAZOLE 40 MG (PROTONIX) TAB PO SCH (06:44)
[2018-06-05 08:00] VITALS: BP 151/68
[2018-06-05] MEDS ORDERED: NON-FORMULARY MEDICATION 1 EA EA (Fesoterodine Fumarate (Toviaz) 4 MG) PO SCH (09:00)
[2018-06-05] MEDS: FUROSEMIDE 40 MG (LASIX) TAB PO SCH (09:00)
[2018-06-05] MEDS: MAGNESIUM OXIDE (MAG-OX)400 MG TAB PO SCH ×2 (09:00→20:41)
[2018-06-05] MEDS: lisINopril 20 MG (PRINIVIL) TABLET PO SCH (09:00)
[2018-06-05] MEDS: APIXABAN 5 MG (ELIQUIS) TABLET PO SCH ×2 (09:00→20:41)
[2018-06-05] MEDS ORDERED: NON-FORMULARY MEDICATION 1 EA EA (Omeprazole 40 MG) PO SCH (09:00)
[2018-06-05] MEDS: TELMISARTAN 40 MG (MICARDIS) TAB PO SCH (09:00)
[2018-06-05] MEDS: TOLTERODINE LA 2 MG (DETROL LA) CAP PO SCH (09:00)
[2018-06-05 12:00] VITALS: BP 176/71
--- NOTE | 2018-06-05 12:26 | Progress Note-Hospitalist ---
Subjective HPI/CC On Admission Date Seen by Provider: Jun 05, 2018 Time Seen by Provider: 11:30 Subjective/Events-last exam Patient doing well No confusion Appears declined since I last cared for her in the hospital No pain is reported + BM Eating and drinking well Swallowing improved Focused Exam Lactate Level Objective Exam Vital Signs Vital Signs Date Time Temp Pulse Resp B/P (MAP) Pulse Ox O2 Delivery O2 Flow Rate FiO2 06/05/18 12:00 96.0 61 22 176/71 (106) 98 Room Air Capillary Refill : Less Than 3 Seconds General Appearance: No Apparent Distress, WD/WN, Chronically ill, Obese Respiratory: Chest Non Tender, Lungs Clear, Normal Breath Sounds, No Accessory Muscle Use, No Respiratory Distress Cardiovascular: Regular Rate, Rhythm, No Edema, No Gallop, No JVD, No Murmur, Normal Peripheral Pulses Neurologic/Psychiatric: Alert, Oriented x3, No Motor/Sensory Deficits, Normal Mood/Affect Results/Procedures Lab Laboratory Tests 06/05/18 04:52 Patient resulted labs reviewed. Assessment/Plan Assessment and Plan Assess & Plan/Chief Complaint Assessment: s/p AMS now resolved Early cognitive deficit noted Debility requiring AL placement Obesity Dysphagia Plan: Swallowing exercises Therapy Diagnosis/Problems Diagnosis/Problems (1) Altered mental status Status: Acute Qualifiers: Altered mental status type: unspecified Qualified Codes: R41.82 - Altered mental status, unspecified (2) Debility Status: Acute (3) Obesity Status: Chronic Qualifiers: Obesity type: due to excess calories Obesity classification: adult class 3 (BMI >= 40) Body mass index: BMI 40.0-44.9 (4) Dysphagia Status: Acute Qualifiers: Dysphagia type: unspecified Qualified Codes: R13.10 - Dysphagia, unspecified Clinical Quality Measures DVT/VTE Risk/Contraindication: Risk Factor Score Per Nursin RFS Level Per Nursing on Admit: 4+=Very High Other: Pt had DVT in the past STEPHEN GARZA DO Jun 05, 2018 12:26
--- NOTE | 2018-06-05 13:52 | Cardiology Progress Note ---
Cardiology SOAP Progress Note Subjective: Transferred to fourth floor. Objective: I&O/Vital Signs 06/05/18 06/05/18 06/05/18 04:00 08:00 08:05 Temp 96.2 96.4 Pulse 60 60 Resp 16 20 B/P (MAP) 139/59 (85) 151/68 (95) Pulse Ox 98 99 98 O2 Delivery Room Air Room Air Room Air 06/05/18 00:00 Intake Total 520 ml Output Total 300 ml Balance 220 ml Weight (Pounds): 291 Weight (Ounces): 14.4 Weight (Calculated Kilograms): 132.028804 Constitutional: appears stated age; No apparent distress; well-developed, well- nourished Respiratory: No accessory muscle use, No respiratory distress, No chest tender , No chest expansion is symmetric; chest is bilaterally symmetric; No lungs clear to percussion; lungs clear to auscultation; No crackles, No rhonchi, No rales, No stridor, No wheezing, No pleural rub, No other Cardiovascular: regular rate-rhythm; No irregularly irregular, No extra beats, No parasternal heave is noted, No JVD, No edema, No bradycardia, No tachycardia , No point of maximal impulse, No cardiac thrills are palpable; S1 and S2; No gallop/S3, No gallop/S4, No diastolic murmur, No systolic murmur, No friction rub, No click, No other Gastrointestional: No tender, No soft, No round, No distended, No pulsatile mass, No organomegaly, No guarding, No rebound, No tenderness, No hernia, No mass, No audible bowel sounds, No abnormal bowel sounds, No abdominal bruits, No spleenomegaly, No other Extremities: No normal range of motion, No non-tender, No normal inspection, No pedal edema, No calf tenderness, No normal capillary refill, No pelvis stable , No calf tenderness, No inflammation, No pedal edema, No slow capillary refill , No swelling, No other, No abrasion, No clubbing, No cyanosis, No ecchymosis, No laceration, No no lower extremity edema bilateral, No significant edema, No tenderness, No wound Neurologic/Psychiatric: alert, normal mood/affect, power is 5/5 both on sides Skin: No rash, No ulcerations Results/Procedures: Labs Laboratory Tests 06/05/18 04:52: White Blood Count 3.5L, Red Blood Count 2.90L, Hemoglobin 9.2L, Hematocrit 28L, Mean Corpuscular Volume 95, Mean Corpuscular Hemoglobin 32, Mean Corpuscular Hemoglobin Concent 34, Red Cell Distribution Width 15.3H, Platelet Count 101L, Mean Platelet Volume 10.5H, Neutrophils (%) (Auto) 62, Lymphocytes (%) (Auto) 22 , Monocytes (%) (Auto) 10, Eosinophils (%) (Auto) 6, Basophils (%) (Auto) 1, Neutrophils # (Auto) 2.2, Lymphocytes # (Auto) 0.8L, Monocytes # (Auto) 0.4, Eosinophils # (Auto) 0.2, Basophils # (Auto) 0.0, Sodium Level 141, Potassium Level 3.6, Chloride Level 108H, Carbon Dioxide Level 25, Anion Gap 8, Blood Urea Nitrogen 13, Creatinine 0.66, Estimat Glomerular Filtration Rate > 60, BUN/ Creatinine Ratio 20, Glucose Level 93, Calcium Level 8.0L, Corrected Calcium 9.2 , Total Bilirubin 1.6H, Aspartate Amino Transf (AST/SGOT) 17, Alanine Aminotransferase (ALT/SGPT) 9, Alkaline Phosphatase 63, Total Protein 5.1L, Albumin 2.5L Microbiology 06/02/18 Blood Culture - Preliminary, Resulted No growth 06/03/18 MRSA Screen - Final, Complete MRSA not isolated A/P: Assessment/Dx: Altered mental status, Previous history of CVA, Severe sinus node dysfunction, status post permanent pacemaker implantation, Paroxysmal atrial fibrillation, Hypomagnesemia Plan: Altered mental status: Resolved. telemetry shows atrial pacing with normal ventricular sensing. Remote monitoring of pacemaker shows normal device function with no bradycardic episodes. Previous dual-chamber permanent pacemaker implantation for symptomatic severe sinus node dysfunction, atrial fibrillation. History of Left upper extremity swelling/DVT associated with PICC line placement.: On apixaban. Hypomagnesemia, corrected Anemia, mild thrombocytopenia, seen previously by Dr Clifton, Paroxysmal atrial fibrillation, on apixaban History of CVA with subsequent dysphasia, but has improved Echo of 03/18/18: LVEF 55-60%, AoV sclerosis w/o stenosis, PASP 30 mmHg No angiographically significant coronary artery disease, normal global left ventricular systolic function with an ejection fraction of approximately 60 to 65%, elevated left ventricular end-diastolic pressure indicative of some degree of diastolic dysfunction of the left ventricle, and no significant mitral regurgitation per cardiac catheterization from 01/06/12 Diabetes mellitus II Hypertension. Chronic bilateral leg swelling, likely related to venous insufficiency. Hyperlipidemia Chronic back pain and degenerative joint disease. Thank you for your consultation. Please call me if you have any questions. Elgin Colvin MD, FACP, FACC, FSCAI, FHRS, CCDS Interventional Cardiology Cardiac Electrophysiology Vascular Medicine and Endovascular Interventions Focused Exam Lactate Level 06/02/18 14:21: Lactic Acid Level 1.65 [place] COLVIN MD Jun 05, 2018 13:52
[2018-06-05 16:00] VITALS: BP_SYST 127; BP_SYST 148; BP_DIAS 70; BP_DIAS 72
[2018-06-05] MEDS: ATORVASTATIN 40 MG (LIPITOR) TABLET PO SCH (20:41)
[2018-06-05] MEDS: DONEPEZIL 5 MG (ARICEPT) TAB PO SCH (20:41)
[2018-06-06] VITALS: BP 144/62
[2018-06-06] MEDS: OMEGA 3 (FISH OIL) 1000 MG CAP PO SCH ×2 (06:19→16:18)
[2018-06-06] MEDS: MULTIVIT W/MINERALS TAB (THERAGRAN M) PO SCH (06:19)
[2018-06-06] MEDS: metFORMIN 500 MG (GLUCOPHAGE) TAB PO SCH ×2 (06:19→16:18)
[2018-06-06] MEDS: PANTOPRAZOLE 40 MG (PROTONIX) TAB PO SCH (06:19)
[2018-06-06] MEDS: CATHETER FLUSH 10 ML SYR IV SCH ×3 (06:20→20:16)
[2018-06-06 08:00] VITALS: BP 152/75
[2018-06-06] MEDS: TOLTERODINE LA 2 MG (DETROL LA) CAP PO SCH (08:02)
[2018-06-06] MEDS: APIXABAN 5 MG (ELIQUIS) TABLET PO SCH ×2 (08:02→20:15)
[2018-06-06] MEDS: MAGNESIUM OXIDE (MAG-OX)400 MG TAB PO SCH ×2 (08:03→20:16)
[2018-06-06] MEDS: lisINopril 20 MG (PRINIVIL) TABLET PO SCH (08:03)
[2018-06-06] MEDS: FUROSEMIDE 40 MG (LASIX) TAB PO SCH (08:03)
[2018-06-06] MEDS: TELMISARTAN 40 MG (MICARDIS) TAB PO SCH (08:04)
--- NOTE | 2018-06-06 12:15 | Progress Note-Hospitalist ---
Subjective HPI/CC On Admission Date Seen by Provider: Jun 06, 2018 Time Seen by Provider: 11:15 Subjective/Events-last exam Patient doing the same Denies any pain Bowels are moving Slow response time indicating overall decline status due to multiple comorbidities Urinating well Checked meds and labs Review of Systems General: Fatigue Objective Exam Vital Signs Vital Signs Date Time Temp Pulse Resp B/P (MAP) Pulse Ox O2 Delivery O2 Flow Rate FiO2 06/06/18 08:00 96.3 65 18 152/75 (100) 98 Room Air Capillary Refill : Less Than 3 Seconds General Appearance: No Apparent Distress, WD/WN, Chronically ill, Obese Respiratory: Chest Non Tender, Lungs Clear, Normal Breath Sounds, No Accessory Muscle Use, No Respiratory Distress Cardiovascular: Regular Rate, Rhythm, No Edema, No Gallop, No JVD, No Murmur, Normal Peripheral Pulses Neurologic/Psychiatric: Alert, No Motor/Sensory Deficits, Depressed Affect, Other (Slow response with poor recall) Skin: Normal Color, Warm/Dry Results/Procedures Lab Patient resulted labs reviewed. Assessment/Plan Assessment and Plan Assess & Plan/Chief Complaint Assessment: s/p AMS now resolved Early cognitive deficit noted Debility requiring AL placement Obesity Dysphagia Plan: Swallowing exercises Therapy May need residential placement instead of assisted living due to just overall severe debility Diagnosis/Problems Diagnosis/Problems (1) Altered mental status Status: Acute Qualifiers: Altered mental status type: unspecified Qualified Codes: R41.82 - Altered mental status, unspecified (2) Debility Status: Acute (3) Obesity Status: Chronic Qualifiers: Obesity type: due to excess calories Obesity classification: adult class 3 (BMI >= 40) Body mass index: BMI 40.0-44.9 (4) Dysphagia Status: Acute Qualifiers: Dysphagia type: unspecified Qualified Codes: R13.10 - Dysphagia, unspecified Clinical Quality Measures DVT/VTE Risk/Contraindication: Risk Factor Score Per Nursin RFS Level Per Nursing on Admit: 4+=Very High Other: Pt had DVT in the past STEPHEN GARZA DO Jun 06, 2018 12:15
--- NOTE | 2018-06-06 14:44 | Cardiology Progress Note ---
Cardiology SOAP Progress Note Subjective: No cardiac symptoms. Objective: I&O/Vital Signs 06/06/18 06/06/18 08:00 08:00 Temp 96.3 Pulse 65 Resp 18 B/P (MAP) 152/75 (100) Pulse Ox 98 98 O2 Delivery Room Air Room Air 06/06/18 00:00 Intake Total 750 ml Balance 750 ml Weight (Pounds): 291 Weight (Ounces): 4.8 Weight (Calculated Kilograms): 132.215829 Constitutional: appears stated age; No apparent distress; well-developed, well- nourished Respiratory: No accessory muscle use, No respiratory distress, No chest tender , No chest expansion is symmetric; chest is bilaterally symmetric; No lungs clear to percussion; lungs clear to auscultation; No crackles, No rhonchi, No rales, No stridor, No wheezing, No pleural rub, No other Cardiovascular: regular rate-rhythm; No irregularly irregular, No extra beats, No parasternal heave is noted, No JVD, No edema, No bradycardia, No tachycardia , No point of maximal impulse, No cardiac thrills are palpable; S1 and S2; No gallop/S3, No gallop/S4, No diastolic murmur, No systolic murmur, No friction rub, No click, No other Gastrointestional: No tender, No soft, No round, No distended, No pulsatile mass, No organomegaly, No guarding, No rebound, No tenderness, No hernia, No mass, No audible bowel sounds, No abnormal bowel sounds, No abdominal bruits, No spleenomegaly, No other Extremities: No normal range of motion, No non-tender, No normal inspection, No pedal edema, No calf tenderness, No normal capillary refill, No pelvis stable , No calf tenderness, No inflammation, No pedal edema, No slow capillary refill , No swelling, No other, No abrasion, No clubbing, No cyanosis, No ecchymosis, No laceration, No no lower extremity edema bilateral, No significant edema, No tenderness, No wound Neurologic/Psychiatric: alert, normal mood/affect, power is 5/5 both on sides Skin: No rash, No ulcerations Results/Procedures: Labs Laboratory Tests 06/06/18 05:45: Glucometer 93 Microbiology 06/02/18 Blood Culture - Preliminary, Resulted No growth 06/03/18 MRSA Screen - Final, Complete MRSA not isolated A/P: Assessment/Dx: Altered mental status, Previous history of CVA, Severe sinus node dysfunction, status post permanent pacemaker implantation, Paroxysmal atrial fibrillation, Hypomagnesemia Plan: Altered mental status: Resolved. telemetry shows atrial pacing with normal ventricular sensing. Remote monitoring of pacemaker shows normal device function with no bradycardic episodes. Previous dual-chamber permanent pacemaker implantation for symptomatic severe sinus node dysfunction, atrial fibrillation. History of Left upper extremity swelling/DVT associated with PICC line placement.: On apixaban. Hypomagnesemia, corrected Anemia, mild thrombocytopenia, seen previously by Dr Clifton, Paroxysmal atrial fibrillation, on apixaban History of CVA with subsequent dysphasia, but has improved Echo of 03/18/18: LVEF 55-60%, AoV sclerosis w/o stenosis, PASP 30 mmHg No angiographically significant coronary artery disease, normal global left ventricular systolic function with an ejection fraction of approximately 60 to 65%, elevated left ventricular end-diastolic pressure indicative of some degree of diastolic dysfunction of the left ventricle, and no significant mitral regurgitation per cardiac catheterization from 01/06/12 Diabetes mellitus II Hypertension. Chronic bilateral leg swelling, likely related to venous insufficiency. Hyperlipidemia Chronic back pain and degenerative joint disease. Thank you for your consultation. Please call me if you have any questions. Elgin Colvin MD, FACP, FACC, FSCAI, FHRS, CCDS Interventional Cardiology Cardiac Electrophysiology Vascular Medicine and Endovascular Interventions [place] COLVIN MD Jun 06, 2018 2:44 pm
[2018-06-06 16:15] VITALS: BP 146/74
[2018-06-06] MEDS: ATORVASTATIN 40 MG (LIPITOR) TABLET PO SCH (20:15)
[2018-06-06] MEDS: DONEPEZIL 5 MG (ARICEPT) TAB PO SCH (20:15)
[2018-06-07 00:51] VITALS: BP 141/65
[2018-06-07] MEDS: fentaNYL INJECTION 100 MCG/2 ML AMP IV PRN (05:11)
[2018-06-07] MEDS: CATHETER FLUSH 10 ML SYR IV SCH ×3 (05:11→20:31)
[2018-06-07] MEDS: PANTOPRAZOLE 40 MG (PROTONIX) TAB PO SCH (06:16)
[2018-06-07] MEDS: metFORMIN 500 MG (GLUCOPHAGE) TAB PO SCH ×2 (06:17→18:20)
[2018-06-07] MEDS: OMEGA 3 (FISH OIL) 1000 MG CAP PO SCH ×2 (06:17→18:20)
[2018-06-07] MEDS: MULTIVIT W/MINERALS TAB (THERAGRAN M) PO SCH (06:17)
[2018-06-07 08:00] VITALS: BP 144/65
--- NOTE | 2018-06-07 08:00 | Progress Note (SOAP) ---
Subjective Time Seen by a Provider: 07:58 Subjective/Events-last exam Patient states she's feeling better. Patient is speaking better. Patient needs help in getting around. Plan to discharge tomorrow [facility] Objective Exam Vital Signs Date Time Temp Pulse Resp B/P (MAP) Pulse Ox O2 Delivery O2 Flow Rate FiO2 06/07/18 00:51 98.6 61 19 141/65 (90) 98 Room Air 06/06/18 20:20 97 Room Air 06/06/18 16:15 97.1 60 16 146/74 (98) 97 Room Air 06/06/18 08:00 96.3 65 18 152/75 (100) 98 Room Air 06/06/18 08:00 98 Room Air I & O 06/07/18 07:00 Intake Total 1550 ml Output Total 410 ml Balance 1140 ml Capillary Refill : Less Than 3 Seconds General Appearance: No Apparent Distress, WD/WN HEENT: Normal ENT Inspection Neck: Full Range of Motion, Normal Inspection Respiratory: Lungs Clear, No Accessory Muscle Use, No Respiratory Distress Cardiovascular: Regular Rate, Rhythm, No Murmur Gastrointestinal: non tender, soft Results Lab Laboratory Tests 06/07/18 05:22: Glucometer 113H Microbiology 06/02/18 Blood Culture - Preliminary, Resulted No growth 06/03/18 MRSA Screen - Final, Complete MRSA not isolated Assessment/Plan Assessment/Plan Assess & Plan/Chief Complaint Altered mental status. Weakness. Hypertension. Thrombocytopenia. Diabetes. Coronary artery disease. Subacute CVA versus chronic CVA. . 06/04/18. Altered mental status resolved. Weakness. Hypertension better. Thrombocytopenia. Diabetes. Coronary artery disease. Subacute CVA versus chronic CVA. Patient looking much better. Patient to be evaluated by speech therapy for food and drink. Patient to be transferred to medical floor. . 06/07/18. Altered mental status. Patient speaking better today. Weakness. Patient not able to take care of self. Coronary artery disease. Hypertension. Thrombocytopenia. Subacute CVA. Plan to discharge tomorrow Clinical Quality Measures Admission Status Admission Dx Altered mental status. CVA. Diabetes. Hypertension. Confusion DVT/VTE Risk/Contraindication: Risk Factor Score Per Nursin RFS Level Per Nursing on Admit: 4+=Very High Other: Pt had DVT in the past ADEN LEE DO Jun 07, 2018 08:00
[2018-06-07] MEDS: MAGNESIUM OXIDE (MAG-OX)400 MG TAB PO SCH ×2 (08:32→20:31)
[2018-06-07] MEDS: APIXABAN 5 MG (ELIQUIS) TABLET PO SCH ×2 (08:33→20:31)
[2018-06-07] MEDS: lisINopril 20 MG (PRINIVIL) TABLET PO SCH (08:34)
[2018-06-07] MEDS: FUROSEMIDE 40 MG (LASIX) TAB PO SCH (08:34)
[2018-06-07] MEDS: TELMISARTAN 40 MG (MICARDIS) TAB PO SCH (08:35)
[2018-06-07] MEDS: TOLTERODINE LA 2 MG (DETROL LA) CAP PO SCH (08:39)
[2018-06-07 10:07] LABS: HEMOGLOBIN 8.9 G/DL (11.5-16.0); MEAN PLATELET VOLUME 10.6 FL (7.4-10.4); RED BLOOD COUNT 2.82 10^6/uL (4.35-5.85); RED CELL DISTRIBUTION WIDTH 15.5 % (10.0-14.5); WHITE BLOOD COUNT 3.8 10^3/uL (4.3-11.0)
[2018-06-07 10:24] LABS: INR 2.3 (0.8-1.4); PROTHROMBIN TIME PATIENT 25.1 SEC (12.2-14.7)
[2018-06-07 10:35] LABS: BUN/CREATININE RATIO 19; CALCIUM 8.2 MG/DL (8.5-10.1); CARBON DIOXIDE 26 MMOL/L (21-32); CHLORIDE 107 MMOL/L (98-107); CREATININE SERUM 0.69 MG/DL (0.60-1.30); GFR ESTIMATED > 60; GLUCOSE 123 MG/DL (70-105); POTASSIUM 3.5 MMOL/L (3.6-5.0); SODIUM 142 MMOL/L (135-145)
--- NOTE | 2018-06-07 12:48 | Diagnostic Imaging Report ---
INDICATION: Dysphagia and CVA. TECHNIQUE: The procedure was performed in conjunction with a member of the Department of Speech Pathology. The patient swallowed thin and thick barium as well as semisolid and solid foods mixed with barium paste. The study was recorded on videotape. FINDINGS: The oral phase of swallowing is unremarkable. There is no early spillover. The cricopharyngeal function and laryngeal elevation are normal. There is some flash penetration without evidence of aspiration. IMPRESSION: Flash penetration without evidence of aspiration. Please correlate with the formal Speech Pathology report. Dictated by: Dictated on workstation # [id number]
--- NOTE | 2018-06-07 13:43 | Physical Therapy Daily Note ---
PT Daily Note-Current Subjective Patient reports she is feeling better and agrees to PT. Pain Numeric Pain Scale: 0-No Pain Location: No Pain Reported Mental Status Patient Orientation: Normal For Age Transfers Functional [place] Measure 0=Not Assessed/NA 4=Minimal Assistance 1=Total Assistance 5=Supervision or Setup 2=Maximal Assistance 6=Modified [place] 3=Moderate Assistance 7=Complete IndependenceIRFPAI Quality Coding Scale 6 Independent with activity with or without an assistive device 5 Patient requires set up or clean up by helper. Patient completes activity by themselves 4 Supervision or touching assist (CGA). [place] provide cues , steadying assist 3 The helper provides less than half the effort to complete the activity 2 The helper provides more than half the effort to complete the activity 1 Dependent. The helper does all the effort to complete an activity 7 Patient refused to complete or attempt activity 9 The patient did not perform the activity before the current illness or injury 88 Not attempted due to Medical conditions or safety concerns Transfers (B, C, W/C) (FIM): 4 Scootin Sit to/from Stand: 4 Gait Training Gait (FIM): 2 Distance (FIM): [phone] ft Distance: 125' Gait Level of Assist: 4 Gait Assistive Device: FWW functional Exercises Seated Therapy Exercises: Ankle pumps, Long arc quads Seated Reps: 15 (3) Assessment Patient is progressing with treatment plan and will dismiss to [place] this week. PT Care Home Goals Care Home Goals PT Care Home Goals Time Frame: Jun 12, 2018 Transfers (B,C,W/C) (FIM): 2 PT Plan Treatment/Plan Treatment Plan: Continue Plan of Care Treatment Plan: Bed Mobility, Education, Functional Activity Mary Ann, Functional Strength, Safety, Therapeutic Exercise, Transfers Treatment Duration: Jun 12, 2018 Frequency: 5 times per week Estimated Hrs Per Day: .25 hour per day Patient and/or Family Agrees t: Yes Time/GCodes Time In: 1253 Time Out: 1316 Total Billed Treatment Time: 23 Total Billed Treatment 1 visit EX 10 min GT 13 min FELISA VERA PT Jun 07, 2018 13:43
--- NOTE | 2018-06-07 15:03 | Cardiology Progress Note ---
Cardiology SOAP Progress Note Subjective: No cardiac complaints. Objective: I&O/Vital Signs 06/07/18 06/07/18 08:00 08:00 Temp 96.8 Pulse 61 Resp 20 B/P (MAP) 144/65 (91) Pulse Ox 98 98 O2 Delivery Room Air Room Air 06/06/18 23:59 Intake Total 1400 ml Output Total 200 ml Balance 1200 ml Weight (Pounds): 289 Weight (Ounces): 6.8 Weight (Calculated Kilograms): [id number] Constitutional: appears stated age; No apparent distress; well-developed, well- nourished Respiratory: No accessory muscle use, No respiratory distress, No chest tender , No chest expansion is symmetric; chest is bilaterally symmetric; No lungs clear to percussion; lungs clear to auscultation; No crackles, No rhonchi, No rales, No stridor, No wheezing, No pleural rub, No other Cardiovascular: regular rate-rhythm; No irregularly irregular, No extra beats, No parasternal heave is noted, No JVD, No edema, No bradycardia, No tachycardia , No point of maximal impulse, No cardiac thrills are palpable; S1 and S2; No gallop/S3, No gallop/S4, No diastolic murmur, No systolic murmur, No friction rub, No click, No other Gastrointestional: No tender, No soft, No round, No distended, No pulsatile mass, No organomegaly, No guarding, No rebound, No tenderness, No hernia, No mass, No audible bowel sounds, No abnormal bowel sounds, No abdominal bruits, No spleenomegaly, No other Extremities: No normal range of motion, No non-tender, No normal inspection, No pedal edema, No calf tenderness, No normal capillary refill, No pelvis stable , No calf tenderness, No inflammation, No pedal edema, No slow capillary refill , No swelling, No other, No abrasion, No clubbing, No cyanosis, No ecchymosis, No laceration, No no lower extremity edema bilateral, No significant edema, No tenderness, No wound Neurologic/Psychiatric: alert, normal mood/affect, power is 5/5 both on sides Skin: No rash, No ulcerations Results/Procedures: Labs Laboratory Tests 06/07/18 05:22: Glucometer 113H 06/07/18 09:55: White Blood Count 3.8L, Red Blood Count 2.82L, Hemoglobin 8.9L, Hematocrit 27L, Mean Corpuscular Volume 96, Mean Corpuscular Hemoglobin 32, Mean Corpuscular Hemoglobin Concent 33, Red Cell Distribution Width 15.5H, Platelet Count 105L, Mean Platelet Volume 10.6H, Prothrombin Time 25.1H, INR Comment 2.3H, Sodium Level 142, Potassium Level 3.5L, Chloride Level 107, Carbon Dioxide Level 26, Anion Gap 9, Blood Urea Nitrogen 13, Creatinine 0.69, Estimat Glomerular Filtration Rate > 60, BUN/Creatinine Ratio 19, Glucose Level 123H, Calcium Level 8.2L Microbiology 06/02/18 Blood Culture - Preliminary, Resulted No growth 06/03/18 MRSA Screen - Final, Complete MRSA not isolated A/P: Assessment/Dx: Altered mental status, Previous history of CVA, Severe sinus node dysfunction, status post permanent pacemaker implantation, Paroxysmal atrial fibrillation, Hypomagnesemia Plan: Altered mental status: Resolved. telemetry shows atrial pacing with normal ventricular sensing. Remote monitoring of pacemaker shows normal device function with no bradycardic episodes. Previous dual-chamber permanent pacemaker implantation for symptomatic severe sinus node dysfunction, atrial fibrillation. History of Left upper extremity swelling/DVT associated with PICC line placement.: On apixaban. Hypomagnesemia, corrected Anemia, mild thrombocytopenia, seen previously by Dr Clifton, Paroxysmal atrial fibrillation, on apixaban History of CVA with subsequent dysphasia, but has improved Echo of 03/18/18: LVEF 55-60%, AoV sclerosis w/o stenosis, PASP 30 mmHg No angiographically significant coronary artery disease, normal global left ventricular systolic function with an ejection fraction of approximately 60 to 65%, elevated left ventricular end-diastolic pressure indicative of some degree of diastolic dysfunction of the left ventricle, and no significant mitral regurgitation per cardiac catheterization from 01/06/12 Diabetes mellitus II Hypertension. Chronic bilateral leg swelling, likely related to venous insufficiency. Hyperlipidemia Chronic back pain and degenerative joint disease. Thank you for your consultation. Please call me if you have any questions. Elgin Colvin MD, FACP, FACC, FSCAI, FHRS, CCDS Interventional Cardiology Cardiac Electrophysiology Vascular Medicine and Endovascular Interventions [place] COLVIN MD Jun 07, 2018 3:03 pm
--- NOTE | 2018-06-07 15:22 | ST Mod Barium Swallow ---
Speech Evaluation-General Medical Diagnosis AMS/CVA Onset Date: Jun 02, 2018 Therapy Diagnosis Therapy Diagnosis: Dysphagia Precautions Precautions: Aspiration Precautions/Isolations: Aspiration, Fall Prevention, Standard Precautions, Pressure Ulcer Referral Referring Physician: JESUS Reason for Referral: Evaluation/Treatment Medical History Pertinent Medical History: Atrial Fib, Arthritis, CVA, DM, GERD, HTN, OA Pt known to this [employer]. She was on nectar thick liquids when she was dc'd from the ARU. Reviewed History: Yes Social History Home: [facility] Speech Mod Barium Swallow Prior Level of Function Pt was dc'd to [facility] after Rehab stay. Oral Motor Skills Lingual Protrusion: Normal Lingual ROM: Normal Lingual Strength: Normal Textures-Lateral View Lateral View Food Presentation: Thin Liquid via Spoon, Thin Liquid via Cup, Pureed Solids, Mechanial Soft Solids, Regular Solids Oral Phase Labial Closure: No Impairment (WFL) Bolus Formation Pooling L/R: No Impairment (WFL) Bolus Formation Placement: No Impairment (WFL) Mastication Rotary Chew: No Impairment (WFL) A/P Lingual Propulsion: Minimal Impairment Lingual Movement: No Impairment (WFL) Oral Phase Residue: No Impairment (WFL) Pharyngeal Phase Swallow Response: Minimal Impairment Base of Tongue: No Impairment (WFL) Epiglottic Movement: No Impairment (WFL) Laryngeal Elevation: No Impairment (WFL) Vallecular Residue: No Impairment (WFL) Pharyngeal Wall Residue: No Impairment (WFL) Piriform Sinus Residue: No Impairment (WFL) Laryngeal Penetration: Mild (Penetration x 1 for initial swallow of thin liquids) Aspiration Observations: None Performed-A/P View Not Applicable/Performed Summary/Impressions Oral Phase Impression: Minimal Impairment Pt did not aspirate on any texture and thin liquid. She did exhibit laryngeal penetration on initial swallow of thin liquid. No other signs/symptoms were observed. Recommend regular diet with thin liquids. Speech Short Term Goals Short Term Goals Short Term Goals no goals established as skilled ST not indicated. 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 Speech-Plan Patient/Family Goals Patient/Family Goals: to return to home Treatment Plan Speech Therapy Treatment Plan: Discontinue ST no skilled ST indicated as pt did not aspirate during study. She had laryngeal penetration x1 on thin liquid on her initial swallow. Frequency: Modified Program (IRF) (0) Estimated Hrs Per Day: Other (0) Rehab Potential: Fair Pt/Family Agrees to Plan: Yes Safety Risks/Education Teaching Recipient: Patient Teaching Methods: Discussion Response to Teaching: Verbalize Understanding Time Speech Therapy Time In: 11:00 Speech Therapy Time Out: 11:30 Total Billed Time: 30 Billed Treatment Time 1, MOD No KARENMARY ST Jun 07, 2018 15:22
[2018-06-07 15:40] VITALS: BP 144/75
[2018-06-07] MEDS: DONEPEZIL 5 MG (ARICEPT) TAB PO SCH (20:31)
[2018-06-07] MEDS: ATORVASTATIN 40 MG (LIPITOR) TABLET PO SCH (20:31)
[2018-06-08 00:55] VITALS: BP 136/60
[2018-06-08] MEDS: metFORMIN 500 MG (GLUCOPHAGE) TAB PO SCH (06:05)
[2018-06-08] MEDS: PANTOPRAZOLE 40 MG (PROTONIX) TAB PO SCH (06:05)
[2018-06-08] MEDS: CATHETER FLUSH 10 ML SYR IV SCH (06:05)
[2018-06-08] MEDS: OMEGA 3 (FISH OIL) 1000 MG CAP PO SCH (06:05)
[2018-06-08] MEDS: MULTIVIT W/MINERALS TAB (THERAGRAN M) PO SCH (06:05)
[2018-06-08 08:00] VITALS: BP 130/69
--- NOTE | 2018-06-08 08:38 | Progress Note (SOAP) ---
Subjective Time Seen by a Provider: 08:35 Subjective/Events-last exam Patient doing better today. Patient alert. Patient had swallow study done yesterday and able to take food by mouth. Plan to discharge patient today if okay with cardiology Objective Exam Vital Signs Date Time Temp Pulse Resp B/P (MAP) Pulse Ox O2 Delivery O2 Flow Rate FiO2 06/08/18 00:55 98.8 68 19 136/60 (85) 98 Room Air 06/07/18 15:40 97.4 60 20 144/75 (98) 100 Room Air I & O 06/08/18 07:00 Intake Total 1630 ml Output Total 200 ml Balance 1430 ml Capillary Refill : Less Than 3 Seconds General Appearance: No Apparent Distress, WD/WN HEENT: Normal ENT Inspection Neck: Full Range of Motion, Normal Inspection Respiratory: Lungs Clear, No Accessory Muscle Use, No Respiratory Distress Cardiovascular: Regular Rate, Rhythm, No Murmur Gastrointestinal: non tender, soft Results Lab Laboratory Tests 06/07/18 09:55 Laboratory Tests 06/07/18 09:55: White Blood Count 3.8L, Red Blood Count 2.82L, Hemoglobin 8.9L, Hematocrit 27L, Mean Corpuscular Volume 96, Mean Corpuscular Hemoglobin 32, Mean Corpuscular Hemoglobin Concent 33, Red Cell Distribution Width 15.5H, Platelet Count 105L, Mean Platelet Volume 10.6H, Prothrombin Time 25.1H, INR Comment 2.3H, Sodium Level 142, Potassium Level 3.5L, Chloride Level 107, Carbon Dioxide Level 26, Anion Gap 9, Blood Urea Nitrogen 13, Creatinine 0.69, Estimat Glomerular Filtration Rate > 60, BUN/Creatinine Ratio 19, Glucose Level 123H, Calcium Level 8.2L 06/08/18 05:36: Glucometer 102 Microbiology 06/02/18 Blood Culture - Final, Complete No growth 06/03/18 MRSA Screen - Final, Complete MRSA not isolated Assessment/Plan Assessment/Plan Assess & Plan/Chief Complaint Altered mental status. Weakness. Hypertension. Thrombocytopenia. Diabetes. Coronary artery disease. Subacute CVA versus chronic CVA. . 06/04/18. Altered mental status resolved. Weakness. Hypertension better. Thrombocytopenia. Diabetes. Coronary artery disease. Subacute CVA versus chronic CVA. Patient looking much better. Patient to be evaluated by speech therapy for food and drink. Patient to be transferred to medical floor. . 06/07/18. Altered mental status. Patient speaking better today. Weakness. Patient not able to take care of self. Coronary artery disease. Hypertension. Thrombocytopenia. Subacute CVA. Plan to discharge tomorrow. . 06/08/18. Altered mental status resolved. Patient eating. Patient speaking better. Coronary artery disease. Hypertension. Thrombocytopenia. Subacute CVA. Clinical Quality Measures Admission Status Admission Dx Altered mental status. CVA. Diabetes. Hypertension. Confusion DVT/VTE Risk/Contraindication: Risk Factor Score Per Nursin RFS Level Per Nursing on Admit: 4+=Very High Other: Pt had DVT in the past ADEN LEE DO Jun 08, 2018 08:38
[2018-06-08] MEDS: APIXABAN 5 MG (ELIQUIS) TABLET PO SCH (09:12)
[2018-06-08] MEDS: MAGNESIUM OXIDE (MAG-OX)400 MG TAB PO SCH (09:12)
[2018-06-08] MEDS: lisINopril 20 MG (PRINIVIL) TABLET PO SCH (09:12)
[2018-06-08] MEDS: FUROSEMIDE 40 MG (LASIX) TAB PO SCH (09:12)
[2018-06-08] MEDS: TELMISARTAN 40 MG (MICARDIS) TAB PO SCH (09:13)
[2018-06-08] MEDS: TOLTERODINE LA 2 MG (DETROL LA) CAP PO SCH (09:17)
[2018-06-08 10:42] VITALS: BP 130/69
[2018-06-08 11:00] VITALS: BP 130/69
[2018-06-08 13:50] VITALS: BP 130/69
--- NOTE | 2018-06-11 07:30 | Discharge Summary ---
Diagnosis/Chief Complaint Date of Admission Jun 02, 2018 at 14:26 Date of Discharge Jun 08, 2018 at 11:00 Discharge Date: Jun 08, 2018 Discharge Time: 07:27 Discharge Diagnosis Mental status. Subacute CVA. Small vessel ischemic disease and had. Anemia. Coronary artery disease. Morbid obesity. DO NOT RESUSCITATE. Diabetes. Hypertension. Confusion. History of paroxysmal atrial fibrillation. Hypomagnesemia. Dysphagia. Presence of cardiac pacemaker. Thrombocytopenia Reason Hospital Visit [facility] of [facility]. Received call from nurse at patient has altered mental status. Patient is not talking. Patient not following commands. Patient sent out to the emergency room and admitted. Patient does not know the welder tack or the date. Patient does know who I am. Patient able to move all extremities a little. CAT scan may show subacute or chronic CVA. Patient needs MRI but last time she could not fit in it. Spoke to the daughter and she wants to make mother DO NOT RESUSCITATE but do everything else possible Discharge Summary Consultations Cardiology Discharge Physical Examination Allergies: Coded Allergies: Penicillins (Unverified Allergy, Unknown, 04/11/18) codeine (Unverified Allergy, Unknown, 04/11/18) aspirin (Verified Adverse Reaction, Unknown, NAUSEA, 04/11/18) Vitals & I&Os Vital Signs Date Time Temp Pulse Resp B/P (MAP) Pulse Ox O2 Delivery O2 Flow Rate FiO2 06/08/18 11:00 58 22 130/69 98 Room Air 06/08/18 08:00 97.9 Hospital Course Patient in hospital didn't improve. Altered mental status reversed. Patient passed swallow study was able to eat. Labs (last 24 hrs) Laboratory Tests 06/02/18 08:00: White Blood Count 4.1L, Red Blood Count 3.67L, Hemoglobin 11.0L, Hematocrit 34L , Mean Corpuscular Volume 94, Mean Corpuscular Hemoglobin 30, Mean Corpuscular Hemoglobin Concent 32, Red Cell Distribution Width 16.1H, Platelet Count 112L, Mean Platelet Volume 11.0H, Neutrophils (%) (Auto) 63, Lymphocytes (%) (Auto) 22 , Monocytes (%) (Auto) 11, Eosinophils (%) (Auto) 3, Basophils (%) (Auto) 1, Neutrophils # (Auto) 2.6, Lymphocytes # (Auto) 0.9L, Monocytes # (Auto) 0.5, Eosinophils # (Auto) 0.1, Basophils # (Auto) 0.0, Prothrombin Time 21.6H, INR Comment 1.9H, Activated Partial Thromboplast Time 36H, D-Dimer 0.76H, Sodium Level 143, Potassium Level 3.6, Chloride Level 105, Carbon Dioxide Level 25, Anion Gap 13, Blood Urea Nitrogen 14, Creatinine 0.73, Estimat Glomerular Filtration Rate > 60, BUN/Creatinine Ratio 19, Glucose Level 116H, Calcium Level 8.3L, Corrected Calcium 9.0, Magnesium Level 1.0*L, Total Bilirubin 1.3H, Aspartate Amino Transf (AST/SGOT) 21, Alanine Aminotransferase (ALT/SGPT) 12, Alkaline Phosphatase 75, Troponin I < 0.30, Total Protein 6.4, Albumin 3.1L, TSH [place] Testing 1.33 06/02/18 08:35: Urine Color YELLOW, Urine Clarity CLEAR, Urine pH 9, Urine Specific [place] 1.015L, Urine Protein NEGATIVE, Urine Glucose (UA) NEGATIVE, Urine Ketones NEGATIVE, Urine Nitrite NEGATIVE, Urine Bilirubin NEGATIVE, Urine Urobilinogen 1 , Urine Leukocyte Esterase NEGATIVE, Urine RBC (Auto) NEGATIVE, Urine RBC NONE, Urine WBC NONE, Urine Squamous Epithelial Cells 0-2, Urine Crystals NONE, Urine Bacteria NEGATIVE, Urine Casts NONE, Urine Mucus NEGATIVE, Urine Culture Indicated NO 06/02/18 10:35: Glucometer 107 06/02/18 14:21: Lactic Acid Level 1.65 06/03/18 02:40: White Blood Count 4.6, Red Blood Count 3.24L, Hemoglobin 10.2L, Hematocrit 31L, Mean Corpuscular Volume 94, Mean Corpuscular Hemoglobin 32, Mean Corpuscular Hemoglobin Concent 33, Red Cell Distribution Width 15.8H, Platelet Count 105L, Mean Platelet Volume 10.7H, Neutrophils (%) (Auto) 68, Lymphocytes (%) (Auto) 18 , Monocytes (%) (Auto) 9, Eosinophils (%) (Auto) 5, Basophils (%) (Auto) 1, Neutrophils # (Auto) 3.1, Lymphocytes # (Auto) 0.8L, Monocytes # (Auto) 0.4, Eosinophils # (Auto) 0.2, Basophils # (Auto) 0.0, Sodium Level 142, Potassium Level 3.4L, Chloride Level 106, Carbon Dioxide Level 26, Anion Gap 10, Blood Urea Nitrogen 12, Creatinine 0.61, Estimat Glomerular Filtration Rate > 60, BUN/ Creatinine Ratio 20, Glucose Level 102, Calcium Level 8.0L, Phosphorus Level 2.8 , Magnesium Level 1.5L, Triglycerides Level 49, Cholesterol Level 94, LDL Cholesterol Direct 50, VLDL Cholesterol 10, HDL Cholesterol 36L 06/04/18 03:12: White Blood Count 4.1L, Red Blood Count 3.29L, Hemoglobin 10.0L, Hematocrit 31L , Mean Corpuscular Volume 95, Mean Corpuscular Hemoglobin 30, Mean Corpuscular Hemoglobin Concent 32, Red Cell Distribution Width 15.8H, Platelet Count 112L, Mean Platelet Volume 10.6H, Neutrophils (%) (Auto) 65, Lymphocytes (%) (Auto) 21 , Monocytes (%) (Auto) 8, Eosinophils (%) (Auto) 6, Basophils (%) (Auto) 1, Neutrophils # (Auto) 2.7, Lymphocytes # (Auto) 0.9L, Monocytes # (Auto) 0.3, Eosinophils # (Auto) 0.2, Basophils # (Auto) 0.0, Sodium Level 142, Potassium Level 3.6, Chloride Level 108H, Carbon Dioxide Level 26, Anion Gap 8, Blood Urea Nitrogen 11, Creatinine 0.60, Estimat Glomerular Filtration Rate > 60, BUN/ Creatinine Ratio 18, Glucose Level 78, Calcium Level 8.1L, Phosphorus Level 2.9 , Magnesium Level 1.8 06/05/18 04:52: White Blood Count 3.5L, Red Blood Count 2.90L, Hemoglobin 9.2L, Hematocrit 28L, Mean Corpuscular Volume 95, Mean Corpuscular Hemoglobin 32, Mean Corpuscular Hemoglobin Concent 34, Red Cell Distribution Width 15.3H, Platelet Count 101L, Mean Platelet Volume 10.5H, Neutrophils (%) (Auto) 62, Lymphocytes (%) (Auto) 22 , Monocytes (%) (Auto) 10, Eosinophils (%) (Auto) 6, Basophils (%) (Auto) 1, Neutrophils # (Auto) 2.2, Lymphocytes # (Auto) 0.8L, Monocytes # (Auto) 0.4, Eosinophils # (Auto) 0.2, Basophils # (Auto) 0.0, Sodium Level 141, Potassium Level 3.6, Chloride Level 108H, Carbon Dioxide Level 25, Anion Gap 8, Blood Urea Nitrogen 13, Creatinine 0.66, Estimat Glomerular Filtration Rate > 60, BUN/ Creatinine Ratio 20, Glucose Level 93, Calcium Level 8.0L, Corrected Calcium 9.2 , Total Bilirubin 1.6H, Aspartate Amino Transf (AST/SGOT) 17, Alanine Aminotransferase (ALT/SGPT) 9, Alkaline Phosphatase 63, Total Protein 5.1L, Albumin 2.5L 06/06/18 05:45: Glucometer 93 06/07/18 05:22: Glucometer 113H 06/07/18 09:55: White Blood Count 3.8L, Red Blood Count 2.82L, Hemoglobin 8.9L, Hematocrit 27L, Mean Corpuscular Volume 96, Mean Corpuscular Hemoglobin 32, Mean Corpuscular Hemoglobin Concent 33, Red Cell Distribution Width 15.5H, Platelet Count 105L, Mean Platelet Volume 10.6H, Prothrombin Time 25.1H, INR Comment 2.3H, Sodium Level 142, Potassium Level 3.5L, Chloride Level 107, Carbon Dioxide Level 26, Anion Gap 9, Blood Urea Nitrogen 13, Creatinine 0.69, Estimat Glomerular Filtration Rate > 60, BUN/Creatinine Ratio 19, Glucose Level 123H, Calcium Level 8.2L 06/08/18 05:36: Glucometer 102 Microbiology 06/02/18 Blood Culture - Final, Complete No growth 06/03/18 MRSA Screen - Final, Complete MRSA not isolated Laboratory Tests 06/02/18 08:00 06/03/18 02:40 06/04/18 03:12 06/05/18 04:52 06/07/18 09:55 Pending Labs Microbiology Date/Time Source Procedure Growth Status 06/02/18 14:21 Peripheral Right Wrist Blood Culture - Final No growth Complete 06/02/18 10:30 [place] Blood Culture - Final No growth Complete 06/03/18 07:54 Nasal MRSA Screen - Final MRSA not isolated Complete Laboratory Tests 06/02/18 08:00: White Blood Count 4.1, Red Blood Count 3.67, Hemoglobin 11.0, Hematocrit 34, Mean Corpuscular Volume 94, Mean Corpuscular Hemoglobin 30, Mean Corpuscular Hemoglobin Concent 32, Red Cell Distribution Width 16.1, Platelet Count 112, Mean Platelet Volume 11.0, Neutrophils (%) (Auto) 63, Lymphocytes (%) (Auto) 22 , Monocytes (%) (Auto) 11, Eosinophils (%) (Auto) 3, Basophils (%) (Auto) 1, Neutrophils # (Auto) 2.6, Lymphocytes # (Auto) 0.9, Monocytes # (Auto) 0.5, Eosinophils # (Auto) 0.1, Basophils # (Auto) 0.0, Prothrombin Time 21.6, INR Comment 1.9, Activated Partial Thromboplast Time 36, D-Dimer 0.76, Sodium Level 143, Potassium Level 3.6, Chloride Level 105, Carbon Dioxide Level 25, Anion Gap 13, Blood Urea Nitrogen 14, Creatinine 0.73, Estimat Glomerular Filtration Rate > 60, BUN/Creatinine Ratio 19, Glucose Level 116, Calcium Level 8.3, Corrected Calcium 9.0, Magnesium Level 1.0, Total Bilirubin 1.3, Aspartate Amino Transf (AST/SGOT) 21, Alanine Aminotransferase (ALT/SGPT) 12, Alkaline Phosphatase 75, Troponin I < 0.30, Total Protein 6.4, Albumin 3.1, TSH [place] Testing 1.33 06/02/18 08:35: Urine Color YELLOW, Urine Clarity CLEAR, Urine pH 9, Urine Specific [place] 1.015, Urine Protein NEGATIVE, Urine Glucose (UA) NEGATIVE, Urine Ketones NEGATIVE, Urine Nitrite NEGATIVE, Urine Bilirubin NEGATIVE, Urine Urobilinogen 1 , Urine Leukocyte Esterase NEGATIVE, Urine RBC (Auto) NEGATIVE, Urine RBC NONE, Urine WBC NONE, Urine Squamous Epithelial Cells 0-2, Urine Crystals NONE, Urine Bacteria NEGATIVE, Urine Casts NONE, Urine Mucus NEGATIVE, Urine Culture Indicated NO 06/02/18 10:35: Glucometer 107 06/02/18 14:21: Lactic Acid Level 1.65 06/03/18 02:40: White Blood Count 4.6, Red Blood Count 3.24, Hemoglobin 10.2, Hematocrit 31, Mean Corpuscular Volume 94, Mean Corpuscular Hemoglobin 32, Mean Corpuscular Hemoglobin Concent 33, Red Cell Distribution Width 15.8, Platelet Count 105, Mean Platelet Volume 10.7, Neutrophils (%) (Auto) 68, Lymphocytes (%) (Auto) 18 , Monocytes (%) (Auto) 9, Eosinophils (%) (Auto) 5, Basophils (%) (Auto) 1, Neutrophils # (Auto) 3.1, Lymphocytes # (Auto) 0.8, Monocytes # (Auto) 0.4, Eosinophils # (Auto) 0.2, Basophils # (Auto) 0.0, Sodium Level 142, Potassium Level 3.4, Chloride Level 106, Carbon Dioxide Level 26, Anion Gap 10, Blood Urea Nitrogen 12, Creatinine 0.61, Estimat Glomerular Filtration Rate > 60, BUN/ Creatinine Ratio 20, Glucose Level 102, Calcium Level 8.0, Phosphorus Level 2.8 , Magnesium Level 1.5, Triglycerides Level 49, Cholesterol Level 94, LDL Cholesterol Direct 50, VLDL Cholesterol 10, HDL Cholesterol 36 06/04/18 03:12: White Blood Count 4.1, Red Blood Count 3.29, Hemoglobin 10.0, Hematocrit 31, Mean Corpuscular Volume 95, Mean Corpuscular Hemoglobin 30, Mean Corpuscular Hemoglobin Concent 32, Red Cell Distribution Width 15.8, Platelet Count 112, Mean Platelet Volume 10.6, Neutrophils (%) (Auto) 65, Lymphocytes (%) (Auto) 21 , Monocytes (%) (Auto) 8, Eosinophils (%) (Auto) 6, Basophils (%) (Auto) 1, Neutrophils # (Auto) 2.7, Lymphocytes # (Auto) 0.9, Monocytes # (Auto) 0.3, Eosinophils # (Auto) 0.2, Basophils # (Auto) 0.0, Sodium Level 142, Potassium Level 3.6, Chloride Level 108, Carbon Dioxide Level 26, Anion Gap 8, Blood Urea Nitrogen 11, Creatinine 0.60, Estimat Glomerular Filtration Rate > 60, BUN/ Creatinine Ratio 18, Glucose Level 78, Calcium Level 8.1, Phosphorus Level 2.9, Magnesium Level 1.8 06/05/18 04:52: White Blood Count 3.5, Red Blood Count 2.90, Hemoglobin 9.2, Hematocrit 28, Mean Corpuscular Volume 95, Mean Corpuscular Hemoglobin 32, Mean Corpuscular Hemoglobin Concent 34, Red Cell Distribution Width 15.3, Platelet Count 101, Mean Platelet Volume 10.5, Neutrophils (%) (Auto) 62, Lymphocytes (%) (Auto) 22 , Monocytes (%) (Auto) 10, Eosinophils (%) (Auto) 6, Basophils (%) (Auto) 1, Neutrophils # (Auto) 2.2, Lymphocytes # (Auto) 0.8, Monocytes # (Auto) 0.4, Eosinophils # (Auto) 0.2, Basophils # (Auto) 0.0, Sodium Level 141, Potassium Level 3.6, Chloride Level 108, Carbon Dioxide Level 25, Anion Gap 8, Blood Urea Nitrogen 13, Creatinine 0.66, Estimat Glomerular Filtration Rate > 60, BUN/ Creatinine Ratio 20, Glucose Level 93, Calcium Level 8.0, Corrected Calcium 9.2 , Total Bilirubin 1.6, Aspartate Amino Transf (AST/SGOT) 17, Alanine Aminotransferase (ALT/SGPT) 9, Alkaline Phosphatase 63, Total Protein 5.1, Albumin 2.5 06/06/18 05:45: Glucometer 93 06/07/18 05:22: Glucometer 113 06/07/18 09:55: White Blood Count 3.8, Red Blood Count 2.82, Hemoglobin 8.9, Hematocrit 27, Mean Corpuscular Volume 96, Mean Corpuscular Hemoglobin 32, Mean Corpuscular Hemoglobin Concent 33, Red Cell Distribution Width 15.5, Platelet Count 105, Mean Platelet Volume 10.6, Prothrombin Time 25.1, INR Comment 2.3, Sodium Level 142, Potassium Level 3.5, Chloride Level 107, Carbon Dioxide Level 26, Anion Gap 9, Blood Urea Nitrogen 13, Creatinine 0.69, Estimat Glomerular Filtration Rate > 60, BUN/Creatinine Ratio 19, Glucose Level 123, Calcium Level 8.2 06/08/18 05:36: Glucometer 102 Discharge Home Medications: Active Scripts Active Reported Lotrimin AF (Miconazole Nitrate) 133 Gm Aero.powd TP Q12H PRN Loperamide (Loperamide HCl) 2 Mg Tablet 2 Mg PO Q12H PRN Eliquis (Apixaban) 5 Mg Tablet 5 Mg PO BID Magnesium (Magnesium Oxide) 250 Mg Tablet 250 Mg PO BID Multivitamins with Minerals (Multivitamin with Minerals) 1 Each Tablet 1 Tab PO DAILY Metoprolol Succinate 25 Mg Tab.er.24h 25 Mg PO DAILY Lisinopril 20 Mg Tablet 20 Mg PO DAILY Furosemide 40 Mg Tablet 40 Mg PO DAILY Donepezil HCl 5 Mg Tablet 5 Mg PO HS Atorvastatin Calcium 40 Mg Tablet 40 Mg PO HS Toviaz (Fesoterodine Fumarate) 4 Mg Tab.sr.24h 4 Mg PO DAILY Omeprazole 40 Mg Capsule.dr 40 Mg PO DAILY Micardis (Telmisartan) 80 Mg Tablet 80 Mg PO DAILY Metformin HCl 500 Mg Tablet 500 Mg PO BID Fish Oil 1,200 mg Fish Oil (Fish Oil/Dha/Epa) 1 Each Capsule 1,200 Mg PO BID Ocuvite Adult 50 Plus Softgel (C,E,Zinc,Copper 11/Fagwa4x/Lut) 1 Each Capsule 1 Cap PO DAILY Instructions to patient/family Please see electronic discharge instructions given to patient. Clinical Quality Measures DVT/VTE Risk/Contraindication: Risk Factor Score Per Nursin RFS Level Per Nursing on Admit: 4+=Very High Other: Pt had DVT in the past ADEN LEE DO Jun 11, 2018 07:30
== END 2018-06-08 11:00 | DRG 65 ==
LOC: EDUNIT# 07:52 → ER 07:53 → ICU 14:26 → 4TH 06-04 14:25
PROVIDERS: ADMIT Family Medicine; ATTEND Family Medicine
PROC: 02HV33Z Insertion of Infusion Device into Superior Vena Cava, Percutaneous Approach (ICD-10-PCS; principal; 2018-06-02)
DX: I63.9 Cerebral infarction, unspecified (principal); I69.391 Dysphagia following cerebral infarction; R13.13 Dysphagia, pharyngeal phase; R47.02 Dysphasia; R41.0 Disorientation, unspecified; Z68.41 Body mass index [BMI] 40.0-44.9, adult; R53.1 Weakness; Z23 Encounter for immunization; Z66 Do not resuscitate; E66.09 Other obesity due to excess calories; R53.83 Other fatigue; I87.2 Venous insufficiency (chronic) (peripheral); I10 Essential (primary) hypertension; I48.0 Paroxysmal atrial fibrillation; I25.10 Atherosclerotic heart disease of native coronary artery without angina pectoris; E11.9 Type 2 diabetes mellitus without complications; D69.6 Thrombocytopenia, unspecified; E78.00 Pure hypercholesterolemia, unspecified; M54.9 Dorsalgia, unspecified; E83.42 Hypomagnesemia; D64.9 Anemia, unspecified; K21.9 Gastro-esophageal reflux disease without esophagitis; M19.91 Primary osteoarthritis, unspecified site; Z95.0 Presence of cardiac pacemaker; Z86.718 Personal history of other venous thrombosis and embolism; Z86.711 Personal history of pulmonary embolism; Z95.828 Presence of other vascular implants and grafts; Z96.651 Presence of right artificial knee joint; Z96.652 Presence of left artificial knee joint
CPT/HCPCS: 36415; 70450; 70496; 70498; 71045; 74230; 80048; 80053; 80061; 81000; 82962; 83605; 83735; 84100; 84443; 84484; 85025; 85027; 85379; 85610; 85730; 87040; 87081; 90686; 93005; 93041

== ENCOUNTER → 2018-06-11 | Outpatient (CLI) | payer MEDICARE, OTHER, MEDICAID ==
[~2018-06-11] MED LIST changes: +DONE5TAB30 PO; +LISI-552 PO; +LOPE2TAB34 PO; +MAGN250T13 PO; +MICO133A2 TP; +MULT-166 PO; +MULT-35 PO
--- NOTE | 2018-06-11 12:50 | Diagnostic Imaging Report ---
INDICATION: Right arm swelling. Right arm venous Doppler study performed in the routine fashion with color flow Doppler and waveform analysis. FINDINGS: The right internal jugular vein, right subclavian vein, and right axillary vein are patent and compressible. Visualized portions of the brachial and basilic and cephalic veins are patent. The visualized portions of the radial and ulnar veins are patent. IMPRESSION: No evidence of deep vein thrombosis in the major veins of the right upper extremity. Dictated by: Dictated on workstation # [id number]
== END ==
LOC: RAD 11:56
PROVIDERS: ATTEND Family Medicine
DX: M79.89 Other specified soft tissue disorders (principal); M79.601 Pain in right arm

== ENCOUNTER 2018-08-07 09:24 | Emergency (ER) | payer MEDICARE, OTHER, MEDICAID ==
[~2018-08-07] VITALS: Ht 170.2 cm; Wt 102.1 kg
[2018-08-07 09:49] LABS: BASOPHILS % (AUTO) 1 % (0-10); EOSINOPHILS # (AUTO) 0.2 10^3/uL (0.0-0.3); EOSINOPHILS % (AUTO) 5 % (0-10); HEMATOCRIT 30 % (35-52); HEMOGLOBIN 9.9 G/DL (11.5-16.0); LYMPHOCYTES % (AUTO) 28 % (12-44); MEAN CORPUSCULAR HEMOGLOBIN 31 PG (25-34); MEAN CORPUSCULAR HGB CONC 33 G/DL (32-36); MEAN CORPUSCULAR VOLUME 95 FL (80-99); MEAN PLATELET VOLUME 9.8 FL (7.4-10.4); MONOCYTES # (AUTO) 0.3 X 10^3 (0.0-1.0); MONOCYTES % (AUTO) 9 % (0-12); NEUTROPHILS % (AUTO) 58 % (42-75); PLATELET COUNT 113 10^3/uL (130-400); RED BLOOD COUNT 3.18 10^6/uL (4.35-5.85); RED CELL DISTRIBUTION WIDTH 14.4 % (10.0-14.5); WHITE BLOOD COUNT 3.4 10^3/uL (4.3-11.0)
[2018-08-07 10:03] LABS: CLARITY,URINE CLEAR; COLOR,URINE YELLOW; GLUCOSE, URINE (UA) NEGATIVE (NEGATIVE); PH,URINE 8 (5-9); PROTEIN,URINE 1+ (NEGATIVE)
[2018-08-07 10:04] LABS: BACTERIA,URINE FEW /HPF; BILIRUBIN,URINE NEGATIVE (NEGATIVE); KETONES,URINE NEGATIVE (NEGATIVE); LEUKOCYTE ESTERASE ,URINE 3+ (NEGATIVE); NITRITE,URINE POSITIVE (NEGATIVE); UROBILINOGEN,URINE 4 MG/DL (NORMAL)
[2018-08-07 10:11] LABS: ALANINE AMINOTRANSFERASE 12 U/L (0-55); ALBUMIN 3.1 GM/DL (3.2-4.5); ALKALINE PHOSPHATASE 76 U/L (40-136); BILIRUBIN,TOTAL 1.1 MG/DL (0.1-1.0); BUN/CREATININE RATIO 18; CALCIUM 9.1 MG/DL (8.5-10.1); CARBON DIOXIDE 29 MMOL/L (21-32); CHLORIDE 105 MMOL/L (98-107); CREATININE SERUM 0.78 MG/DL (0.60-1.30); GFR ESTIMATED > 60; GLUCOSE 125 MG/DL (70-105); SODIUM 142 MMOL/L (135-145); TOTAL PROTEIN 6.2 GM/DL (6.4-8.2)
--- NOTE | 2018-08-07 10:50 | ED General ---
General Chief Complaint: Altered Mental Status Stated Complaint: AMS Nursing Triage Note: ARRIVED VIA EMS FROM [facility]. STAFF STATES THEY WOKE HER AND SHE WAS NOT HERSELF ET DID NOT KNOW WHAT TO DO WITH HER PILLS. STATES SHE USUALLY IS UP AND OUT OF BED BY [id number]. PT STATES SHE FEELS HERSELF OTHER THEN HER "THINKING IS A LITTLE OFF" Nursing Sepsis Screen: No Definite Risk Source of Information: Patient Exam Limitations: No Limitations History of Present Illness Date Seen by Provider: Aug 07, 2018 Time Seen by Provider: 10:45 Initial Comments The patient is a 78-year-old white female from a local shelter. Apparently she awakened later than usual this morning and the staff thought her to be a bit lethargic and confused. By her arrival here she is able to give reports on his events from yesterday. She is quite pleasant and charming. Timing/Duration: 1-3 Hours Allergies and Home Medications Allergies Coded Allergies: Penicillins (Unverified Allergy, Unknown, 04/11/18) codeine (Unverified Allergy, Unknown, 04/11/18) aspirin (Verified Adverse Reaction, Unknown, NAUSEA, 04/11/18) Home Medications Apixaban 5 Mg Tablet, 5 MG PO BID, (Reported) Atorvastatin Calcium 40 Mg Tablet, 40 MG PO HS, (Reported) C,E,Zinc,Copper 11/Ifxwn7j/Lut 1 Each Capsule, 1 CAP PO DAILY, (Reported) Donepezil HCl 5 Mg Tablet, 5 MG PO HS, (Reported) Fesoterodine Fumarate 4 Mg Tab.sr.24h, 4 MG PO DAILY, (Reported) Fish Oil/Dha/Epa 1 Each Capsule, 1,200 MG PO BID, (Reported) Furosemide 40 Mg Tablet, 40 MG PO DAILY, (Reported) Lisinopril 20 Mg Tablet, 20 MG PO DAILY, (Reported) Loperamide HCl 2 Mg Tablet, 2 MG PO Q12H PRN for DIARRHEA, (Reported) Magnesium Oxide 250 Mg Tablet, 250 MG PO BID, (Reported) Metformin HCl 500 Mg Tablet, 500 MG PO BID, (Reported) Metoprolol Succinate 25 Mg Tab.er.24h, 25 MG PO DAILY, (Reported) Miconazole Nitrate 133 Gm Aero.powd, TP Q12H PRN for RASH, (Reported) Multivitamin with Minerals 1 Each Tablet, 1 TAB PO DAILY, (Reported) Omeprazole 40 Mg Capsule.dr, 40 MG PO DAILY, (Reported) Telmisartan 80 Mg Tablet, 80 MG PO DAILY, (Reported) Patient Home Medication List Home Medication List Reviewed: Yes Review of Systems Review of Systems Constitutional: see HPI EENTM: no symptoms reported Respiratory: no symptoms reported Cardiovascular: no symptoms reported Gastrointestinal: no symptoms reported Genitourinary: no symptoms reported Musculoskeletal: no symptoms reported Skin: no symptoms reported Psychiatric/Neurological: No Symptoms Reported Hematologic/Lymphatic: No Symptoms Reported Immunological/Allergic: no symptoms reported Past Spdlcvo-Epuuuf-Ptvbka Hx Patient Social History Alcohol Use: Denies Use Recreational Drug Use: No Smoking Status: Never a Smoker Recent Foreign Travel: No Contact w/Someone Who Travel: No Recent Infectious Disease Expo: No Recent Hopitalizations: Yes (LOOP RECORDER IMPLANTED) Immunizations Up To Date Tetanus Booster (TDap): More than 5yrs PED Vaccines UTD: No Date of Pneumonia Vaccine: Aug 07, 2016 Date of Influenza Vaccine: Jun 09, 2016 Seasonal Allergies Seasonal Allergies: No Past Medical History Surgeries: Yes Cardiac, Joint Replacement, Orthopedic, Pacemaker Respiratory: Yes Pulmonary Embolism Currently Using CPAP: No Currently Using BIPAP: No Cardiac: Yes (VENA CAVA FILTER; PACEMAKER; LINC DEVICE IMPLANTED; UPPER EXTREMITY DVT) Atrial Fibrillation, Chronic Edema/Swelling, Deep Vein Thrombosis, High Cholesterol, Hypertension, Irregular Heartbeat, Syncope Neurological: Yes (EXPRESSIVE APHASIA) Dementia, Stroke Reproductive Disorders: No Female Reproductive Disorders: Denies Sexually Transmitted Disease: No HIV/AIDS: No Genitourinary: Yes Bladder Infection Gastrointestinal: Yes Gastroesophageal Reflux Musculoskeletal: Yes (BONE SPUR REMOVAL LEFT FOOT; CHRONIC GENERALIZED PAIN) Arthritis, Chronic Back Pain Endocrine: Yes (DM TYPE II) Diabetes, Non-Insulin dep HEENT: No Cancer: No Psychosocial: No Integumentary: No Blood Disorders: Yes Adverse Reaction/Blood Tranf: No Family Medical History Myocardial infarction No Pertinent Family Hx Physical Exam Vital Signs Vital Signs - First Documented 08/07/18 09:24 Temp 98.3 Pulse 63 Resp 16 B/P (MAP) 127/95 (106) Pulse Ox 99 O2 Delivery Room Air Capillary Refill : Less Than 3 Seconds Height, Weight, BMI Height: 5'7.00" Weight: 225lbs. 4.0oz. [id number]; 48.7 BMI Method:Stated General Appearance: No Apparent Distress, WD/WN Eyes: Bilateral Eye Normal Inspection HEENT: Normal ENT Inspection Neck: Normal Inspection Respiratory: Chest Non Tender, Lungs Clear, Normal Breath Sounds, No Accessory Muscle Use, No Respiratory Distress Cardiovascular: Regular Rate, Rhythm, No Edema, No Gallop, No JVD, No Murmur, Normal Peripheral Pulses Gastrointestinal: Other (obese and soft) Extremity: Normal Capillary Refill, Normal Inspection, Normal Range of Motion, Non Tender, No Calf Tenderness, No Pedal Edema Neurologic/Psychiatric: Alert, Oriented x3 Skin: Normal Color, Warm/Dry Lymphatic: No Adenopathy Progress/Results/Core Measures Suspected Sepsis Recent Fever Within 48 Hours: No Infection Criteria Present: None New/Unexplained Altered Menta: No Sepsis Screen: No Definite Risk SIRS Temperature:98.3 Pulse: 63 Respiratory Rate: 16 Laboratory Tests 08/07/18 09:42: White Blood Count 3.4L Blood Pressure 127 /95 Mean: 106 Laboratory Tests 08/07/18 09:42: Creatinine 0.78, Platelet Count 113L, Total Bilirubin 1.1H Results/Orders Lab Results Laboratory Tests Test 08/07/18 09:40 08/07/18 09:42 Range/Units Urine Color YELLOW Urine Clarity CLEAR Urine pH 8 5-9 Urine Specific Wing 1.010 L 1.016-1.022 Urine Protein 1+ H NEGATIVE Urine Glucose (UA) NEGATIVE NEGATIVE Urine Ketones NEGATIVE NEGATIVE Urine Nitrite POSITIVE H NEGATIVE Urine Bilirubin NEGATIVE NEGATIVE Urine Urobilinogen 4 H NORMAL MG/DL Urine Leukocyte Esterase 3+ H NEGATIVE Urine RBC (Auto) 2+ H NEGATIVE Urine RBC NONE /HPF Urine WBC 10-25 H /HPF Urine Squamous Epithelial Cells 5-10 /HPF Urine Crystals NONE /LPF Urine Bacteria FEW H /HPF Urine Casts PRESENT /LPF Urine Hyaline Casts 5-10 H /LPF Urine Mucus NEGATIVE /LPF Urine Culture Indicated YES White Blood Count 3.4 L 4.3-11.0 10^3/uL Red Blood Count 3.18 L 4.35-5.85 10^6/uL Hemoglobin 9.9 L 11.5-16.0 G/DL Hematocrit 30 L 35-52 % Mean Corpuscular Volume 95 80-99 FL Mean Corpuscular Hemoglobin 31 25-34 PG Mean Corpuscular Hemoglobin Concent 33 32-36 G/DL Red Cell Distribution Width 14.4 10.0-14.5 % Platelet Count 113 L 130-400 10^3/uL Mean Platelet Volume 9.8 7.4-10.4 FL Neutrophils (%) (Auto) 58 42-75 % Lymphocytes (%) (Auto) 28 12-44 % Monocytes (%) (Auto) 9 0-12 % Eosinophils (%) (Auto) 5 0-10 % Basophils (%) (Auto) 1 0-10 % Neutrophils # (Auto) 2.0 1.8-7.8 X 10^3 Lymphocytes # (Auto) 1.0 1.0-4.0 X 10^3 Monocytes # (Auto) 0.3 0.0-1.0 X 10^3 Eosinophils # (Auto) 0.2 0.0-0.3 10^3/uL Basophils # (Auto) 0.0 0.0-0.1 10^3/uL Sodium Level 142 135-145 MMOL/L Potassium Level 4.0 3.6-5.0 MMOL/L Chloride Level 105 98-107 MMOL/L Carbon Dioxide Level 29 21-32 MMOL/L Anion Gap 8 5-14 MMOL/L Blood Urea Nitrogen 14 7-18 MG/DL Creatinine 0.78 0.60-1.30 MG/DL Estimat Glomerular Filtration Rate > 60 BUN/Creatinine Ratio 18 Glucose Level 125 H 70-105 MG/DL Calcium Level 9.1 8.5-10.1 MG/DL Corrected Calcium 9.8 8.5-10.1 MG/DL Total Bilirubin 1.1 H 0.1-1.0 MG/DL Aspartate Amino Transf (AST/SGOT) 19 5-34 U/L Alanine Aminotransferase (ALT/SGPT) 12 0-55 U/L Alkaline Phosphatase 76 40-136 U/L Total Protein 6.2 L 6.4-8.2 GM/DL Albumin 3.1 L 3.2-4.5 GM/DL My Orders Orders - LATASHA CANSECO MD Cbc With Automated Diff (08/07/18 09:36) Comprehensive Metabolic Panel (08/07/18 09:36) Ua Culture If Indicated (08/07/18 09:36) Urine Culture (08/07/18 09:40) Vital Signs/I&O 08/07/18 09:24 Temp 98.3 Pulse 63 Resp 16 B/P (MAP) 127/95 (106) Pulse Ox 99 O2 Delivery Room Air Capillary Refill : Less Than 3 Seconds Blood Pressure Mean: 106 Departure Communication (Admissions) UA shows 10-25 WBCs per high-powered field. Impression Primary Impression: urinary tract infection Disposition: HOME, SELF-CARE Condition: Stable/Unchanged Departure-Patient Inst. Decision time for Depature: 10:49 Referrals: ADEN LEE DO (PCP/Family) Primary Care Physician Add. Discharge Instructions: All discharge instructions reviewed with patient and/or family. Voiced understanding. Increase fluid intake. Beginning tomorrow take Omnicef twice daily Scripts Cefdinir (Cefdinir) 300 Mg Capsule 300 MG PO twice a day, #12 CAP Prov: LATASHA CANSECO MD 08/07/18 LATASHA CANSECO MD Aug 07, 2018 10:50
[2018-08-07] MEDS ORDERED: CEFD300C3 PO (10:51)
[2018-08-07] MEDS ORDERED: cefTRIAXone FOR IV USE 1,000 MG in NS (IVPB) 50 ML IV ONE (11:00)
[2018-08-07 12:31] VITALS: BP 132/81
== END 2018-08-07 12:31 | disposition home or self-care (01) ==
LOC: EDUNIT# 09:24 → ER 09:25
DX: N39.0 Urinary tract infection, site not specified (principal); I48.91 Unspecified atrial fibrillation; E78.00 Pure hypercholesterolemia, unspecified; I10 Essential (primary) hypertension; F03.90 Unspecified dementia, unspecified severity, without behavioral disturbance, psychotic disturbance, mood disturbance, and anxiety; K21.9 Gastro-esophageal reflux disease without esophagitis; E11.9 Type 2 diabetes mellitus without complications; Z87.448 Personal history of other diseases of urinary system; Z86.73 Personal history of transient ischemic attack (TIA), and cerebral infarction without residual deficits; Z86.718 Personal history of other venous thrombosis and embolism; Z88.0 Allergy status to penicillin; Z88.5 Allergy status to narcotic agent; Z88.6 Allergy status to analgesic agent; Z79.01 Long term (current) use of anticoagulants; Z79.84 Long term (current) use of oral hypoglycemic drugs; Z95.0 Presence of cardiac pacemaker; Z86.711 Personal history of pulmonary embolism
CPT/HCPCS: 36415; 51701; 80053; 81000; 85025; 87077; 87088; 87186

== ENCOUNTER 2018-11-25 11:11 | Emergency (ER) | payer MEDICARE, OTHER, MEDICAID ==
[~2018-11-25] VITALS: Ht 160 cm; Wt 113.4 kg
[~2018-11-25 11:11] MED LIST changes: +CEFD300C3 PO
--- NOTE | 2018-11-25 11:23 | ED General ---
General Chief Complaint: Altered Mental Status Stated Complaint: ALTERED LOC Nursing Triage Note: PT BROUGHT IN BY EMS FROM [facility] WITH COMPLAINT OF CONFUSION AND WEAKNESS. STATES HAS BEEN GOING ON FOR A FEW DAYS. Nursing Sepsis Screen: No Definite Risk Source of Information: Patient Exam Limitations: No Limitations (LATASHA CANSECO MD) History of Present Illness Date Seen by Provider: Nov 25, 2018 Time Seen by Provider: 11:22 Initial Comments The patient is a 78-year-old white female who lives in one of the local assisted living facilities. She reports that she has been dwindling since Thursday. She has been having difficulty walking with her walker and arising from the toilet. She is otherwise relatively vague on symptoms but denies pain. Timing/Duration: 3-4 Days (LATASHA CANSECO MD) Allergies and Home Medications Allergies Coded Allergies: Penicillins (Unverified Allergy, Unknown, 04/11/18) codeine (Unverified Allergy, Unknown, 04/11/18) aspirin (Verified Adverse Reaction, Unknown, NAUSEA, 04/11/18) Home Medications Apixaban 5 Mg Tablet, 5 MG PO BID, (Reported) Atorvastatin Calcium 40 Mg Tablet, 40 MG PO HS, (Reported) C,E,Zinc,Copper 11/Odzyo7e/Lut 1 Each Capsule, 1 CAP PO DAILY, (Reported) Cefdinir 300 Mg Capsule, 300 MG PO twice a day Prescribed by: LATASHA CANSECO on 08/07/18 1051 Donepezil HCl 5 Mg Tablet, 5 MG PO HS, (Reported) Fesoterodine Fumarate 4 Mg Tab.sr.24h, 4 MG PO DAILY, (Reported) Fish Oil/Dha/Epa 1 Each Capsule, 1,200 MG PO BID, (Reported) Furosemide 40 Mg Tablet, 40 MG PO DAILY, (Reported) Lisinopril 20 Mg Tablet, 20 MG PO DAILY, (Reported) Loperamide HCl 2 Mg Tablet, 2 MG PO Q12H PRN for DIARRHEA, (Reported) Magnesium Oxide 250 Mg Tablet, 250 MG PO BID, (Reported) Metformin HCl 500 Mg Tablet, 500 MG PO BID, (Reported) Metoprolol Succinate 25 Mg Tab.er.24h, 25 MG PO DAILY, (Reported) Miconazole Nitrate 133 Gm Aero.powd, TP Q12H PRN for RASH, (Reported) Multivitamin with Minerals 1 Each Tablet, 1 TAB PO DAILY, (Reported) Omeprazole 40 Mg Capsule.dr, 40 MG PO DAILY, (Reported) Telmisartan 80 Mg Tablet, 80 MG PO DAILY, (Reported) Patient Home Medication List Home Medication List Reviewed: Yes (AMADOR CHENG MD) Review of Systems Review of Systems Constitutional: see HPI EENTM: no symptoms reported Respiratory: no symptoms reported Cardiovascular: no symptoms reported Genitourinary: no symptoms reported Musculoskeletal: other (generalized weakness including loss of mobility) Skin: no symptoms reported Psychiatric/Neurological: No Symptoms Reported Hematologic/Lymphatic: No Symptoms Reported (LATASHA CANSECO MD) Past Blrzhhs-Fnxgui-Uyfwup Hx Patient Social History Alcohol Use: Denies Use Recreational Drug Use: No Smoking Status: Never a Smoker Recent Foreign Travel: No Contact w/Someone Who Travel: No Recent Infectious Disease Expo: No Recent Hopitalizations: No (LATASHA CANSECO MD) Immunizations Up To Date Tetanus Booster (TDap): More than 5yrs PED Vaccines UTD: No Date of Pneumonia Vaccine: Aug 07, 2016 Date of Influenza Vaccine: Jun 09, 2016 (LATASHA CANSECO MD) Seasonal Allergies Seasonal Allergies: No (LATASHA CANSECO MD) Past Medical History Surgeries: Yes Cardiac, Joint Replacement, Orthopedic, Pacemaker Respiratory: Yes Pulmonary Embolism Currently Using CPAP: No Currently Using BIPAP: No Cardiac: Yes (VENA CAVA FILTER; PACEMAKER; LINC DEVICE IMPLANTED; UPPER EXTREMITY DVT) Atrial Fibrillation, Chronic Edema/Swelling, Deep Vein Thrombosis, High Cholesterol, Hypertension, Irregular Heartbeat, Syncope Neurological: Yes (EXPRESSIVE APHASIA) Dementia, Stroke Reproductive Disorders: No Female Reproductive Disorders: Denies Sexually Transmitted Disease: No HIV/AIDS: No Genitourinary: Yes Bladder Infection Gastrointestinal: Yes Gastroesophageal Reflux Musculoskeletal: Yes (BONE SPUR REMOVAL LEFT FOOT; CHRONIC GENERALIZED PAIN) Arthritis, Chronic Back Pain Endocrine: Yes (DM TYPE II) Diabetes, Non-Insulin dep HEENT: No Cancer: No Psychosocial: No Integumentary: No Blood Disorders: Yes Adverse Reaction/Blood Tranf: No (LATASHA CANSECO MD) Family Medical History Myocardial infarction No Pertinent Family Hx (LATASHA CANSECO MD) Physical Exam Vital Signs Vital Signs - First Documented 11/25/18 11:11 Temp 96.7 Pulse 60 Resp 20 B/P (MAP) 148/102 (117) Pulse Ox 100 O2 Delivery Room Air (AMADOR CHENG MD) Vital Signs Capillary Refill : Less Than 3 Seconds (LATASHA CANSECO MD) Height, Weight, BMI Height: 5'3.00" Weight: 250lbs. 4.0oz. 113.640418pv; 48.7 BMI Method:Stated General Appearance: No Apparent Distress, WD/WN Eyes: Bilateral Eye Normal Inspection HEENT: Normal ENT Inspection Neck: Normal Inspection Respiratory: Chest Non Tender, Lungs Clear, Normal Breath Sounds, No Accessory Muscle Use, No Respiratory Distress Cardiovascular: Regular Rate, Rhythm, No Edema, No Gallop, No JVD, No Murmur, Normal Peripheral Pulses Gastrointestinal: Normal Bowel Sounds Genital/Rectal: Other (foul perineal odor) Extremity: Pedal Edema (2+ bilaterally) Neurologic/Psychiatric: Alert, No Motor/Sensory Deficits, Normal Mood/Affect, hand rounder II-XII Norm as Tested (LATASHA CANSECO MD) Progress/Results/Core Measures Suspected Sepsis Recent Fever Within 48 Hours: No Infection Criteria Present: None New/Unexplained Altered Menta: No Sepsis Screen: No Definite Risk SIRS Temperature:96.7 Pulse: 60 Respiratory Rate: 20 Blood Pressure 148 /102 Mean: 117 (LATASHA CANSECO MD) Results/Orders Lab Results Laboratory Tests Test 11/25/18 11:28 11/25/18 11:45 11/25/18 12:00 Range/Units Urine Color YELLOW Urine Clarity CLEAR Urine pH 8 5-9 Urine Specific Elizabeth 1.010 L 1.016-1.022 Urine Protein NEGATIVE NEGATIVE Urine Glucose (UA) NEGATIVE NEGATIVE Urine Ketones NEGATIVE NEGATIVE Urine Nitrite NEGATIVE NEGATIVE Urine Bilirubin NEGATIVE NEGATIVE Urine Urobilinogen NORMAL NORMAL MG/DL Urine Leukocyte Esterase NEGATIVE NEGATIVE Urine RBC (Auto) NEGATIVE NEGATIVE Urine RBC NONE /HPF Urine WBC NONE /HPF Urine Squamous Epithelial Cells 0-2 /HPF Urine Crystals NONE /LPF Urine Bacteria NEGATIVE /HPF Urine Casts NONE /LPF Urine Mucus NEGATIVE /LPF Urine Culture Indicated NO Magnesium Level 1.4 L 1.8-2.4 MG/DL TSH [place] Testing 1.44 0.35-4.94 UIU/ML White Blood Count 4.5 4.3-11.0 10^3/uL Red Blood Count 3.23 L 4.35-5.85 10^6/uL Hemoglobin 10.1 L 11.5-16.0 G/DL Hematocrit 30 L 35-52 % Mean Corpuscular Volume 94 80-99 FL Mean Corpuscular Hemoglobin 31 25-34 PG Mean Corpuscular Hemoglobin Concent 33 32-36 G/DL Red Cell Distribution Width 14.3 10.0-14.5 % Platelet Count 109 L 130-400 10^3/uL Mean Platelet Volume 9.8 7.4-10.4 FL Neutrophils (%) (Auto) 60 42-75 % Lymphocytes (%) (Auto) 26 12-44 % Monocytes (%) (Auto) 9 0-12 % Eosinophils (%) (Auto) 5 0-10 % Basophils (%) (Auto) 0 0-10 % Neutrophils # (Auto) 2.7 1.8-7.8 X 10^3 Lymphocytes # (Auto) 1.2 1.0-4.0 X 10^3 Monocytes # (Auto) 0.4 0.0-1.0 X 10^3 Eosinophils # (Auto) 0.2 0.0-0.3 10^3/uL Basophils # (Auto) 0.0 0.0-0.1 10^3/uL Sodium Level 141 135-145 MMOL/L Potassium Level 3.8 3.6-5.0 MMOL/L Chloride Level 106 98-107 MMOL/L Carbon Dioxide Level 30 21-32 MMOL/L Anion Gap 5 5-14 MMOL/L Blood Urea Nitrogen 18 7-18 MG/DL Creatinine 0.85 0.60-1.30 MG/DL Estimat Glomerular Filtration Rate > 60 BUN/Creatinine Ratio 21 Glucose Level 140 H 70-105 MG/DL Calcium Level 9.3 8.5-10.1 MG/DL Corrected Calcium 10.2 H 8.5-10.1 MG/DL Total Bilirubin 0.8 0.1-1.0 MG/DL Aspartate Amino Transf (AST/SGOT) 20 5-34 U/L Alanine Aminotransferase (ALT/SGPT) 14 0-55 U/L Alkaline Phosphatase 62 40-136 U/L Total Protein 6.0 L 6.4-8.2 GM/DL Albumin 2.9 L 3.2-4.5 GM/DL (AMADOR CHENG MD) My Orders Orders - AMADOR CHENG MD Magnesium (11/25/18 12:21) Thyroid Analyzer (11/25/18 12:21) Magnesium 1 Gm/100 Ml Ivpb (Magnesium [place] (11/25/18 13:00) Magnesium Oxide Tablet (Mag Ox Tablet) (11/25/18 13:00) Saline Lock/Iv-Start (11/25/18 12:50) Ns Iv 1000 Ml (Sodium Chloride 0.9%) (11/25/18 12:50) Ketorolac Injection (Toradol Injection) (11/25/18 14:45) (AMADOR CHENG MD) Medications Given in ED Current Medications Medications Dose Ordered Sig/Georgie Route Start Time Stop Time Status Last Admin Dose Admin Ketorolac Tromethamine 15 mg ONCE ONCE IVP 11/25/18 14:45 11/25/18 14:46 DC 11/25/18 14:39 15 MG Magnesium Oxide 400 mg ONCE ONCE PO 11/25/18 13:00 11/25/18 13:01 DC 11/25/18 14:17 400 MG Magnesium Sulfate/ Dextrose 100 ml @ 100 mls/hr ONCE ONCE IV 11/25/18 13:00 11/25/18 13:59 DC 11/25/18 13:00 100 MLS/HR Sodium Chloride 1,000 ml @ 0 mls/hr Q0M ONCE IV 11/25/18 12:50 11/25/18 12:51 DC 11/25/18 13:00 1,000 MLS/HR (AMADOR CHENG MD) Vital Signs/I&O 11/25/18 11:11 Temp 96.7 Pulse 60 Resp 20 B/P (MAP) 148/102 (117) Pulse Ox 100 O2 Delivery Room Air (AMADOR CHENG MD) Vital Signs/I&O Capillary Refill : Less Than 3 Seconds (LATASHA CANSECO MD) Blood Pressure Mean: 117 Progress Note #1: Time: 13:31 Progress Note Care of this patient was assumed from Dr. Canseco at change of shift. Patient was seen and examined by me. Lungs are clear to auscultation bilaterally. Heart was regular rate and rhythm without murmur. Abdomen was soft and nontender. Extremities showed mild edema. Patient was alert and oriented and in no acute distress. Patient describes progressive weakness over last 2 days. She is now not able to get up and walk without assistance. She denies any other symptoms such as fever, cough, shortness of breath, pain, nausea, vomiting , diarrhea, etc. Labs were obtained. She was found to have some mild hypomagnesemia. She'll be hydrated and magnesium will be replaced. After this , we will try to get her up and see how she ambulates. Progress Note #2: Time: 15:04 Progress Note Patient received 1 g of magnesium sulfate by IV route and magnesium oxide orally. We then trialed ambulation. She was only able to take a few steps but stated this was partially because of generalized pain. She was given a low- dose of Toradol and ambulation was tried again. She did much better and was able to take several steps with better strength. She also stated she felt more confident and more comfortable. She was adamantly opposed to being admitted. I discussed the case with Dr. Lee. We will increase her magnesium supplementation and increase her pain management regimen to help her ambulate better. He would like to see her in the office on Thursday and they will discuss potential for some type of therapy regimen to improve strength. Patient should not routinely take NSAIDs as she is presently anticoagulated. As an alternative , we will give Ultram in a small dose as needed. Tylenol will be changed to scheduled dosing. (AMADOR CHENG MD) Departure Impression Primary Impression: Hypomagnesemia Additional Impressions: Generalized weakness Generalized pain Disposition: 01 HOME, SELF-CARE Condition: Improved Departure-Patient Inst. Decision time for Depature: 14:54 (AMADOR CHENG MD) Referrals: ADEN LEE DO (PCP/Family) Primary Care Physician Patient Instructions: Preventing Falls in the Older Adult Add. Discharge Instructions: Increase magnesium oxide from twice daily dosing to 3 times daily dosing. Give Tylenol 1000 mg every 8 hours scheduled, rather than as needed. Add Ultram (tramadol) as prescribed for pain not controlled by Tylenol. Monitor for constipation while on Ultram. Ambulate only with assistance. Follow-up with Dr. Lee on Thursday. Call for an appointment time. Return to care for worsening condition. All discharge instructions reviewed with patient and/or family. Voiced understanding. Scripts Tramadol HCl (Ultram) 50 Mg Tablet 25 MG PO BID PRN for PAIN-MODERATE TO SEVERE, #30 TAB Prov: AMADOR CHENG MD 11/25/18 Acetaminophen (Tylenol Extra Strength) 500 Mg Tablet 1000 MG PO TID, #180 TAB Prov: AMADOR CHENG MD 11/25/18 Magnesium Oxide (Magnesium Oxide) 250 Mg Tablet 250 MG PO TID, #90 TAB Prov: AMADOR CHENG MD 11/25/18 Copy Copies To 1: ADEN LEE RODNEY K MD Nov 25, 2018 11:22 AMADOR CHENG MD Nov 25, 2018 13:31
[2018-11-25 11:34] LABS: BILIRUBIN,URINE NEGATIVE (NEGATIVE); CLARITY,URINE CLEAR; COLOR,URINE YELLOW; GLUCOSE, URINE (UA) NEGATIVE (NEGATIVE); KETONES,URINE NEGATIVE (NEGATIVE); LEUKOCYTE ESTERASE ,URINE NEGATIVE (NEGATIVE); NITRITE,URINE NEGATIVE (NEGATIVE); PH,URINE 8 (5-9); PROTEIN,URINE NEGATIVE (NEGATIVE); UROBILINOGEN,URINE NORMAL (NORMAL)
[2018-11-25 11:46] LABS: BACTERIA,URINE NEGATIVE /HPF; SQUAMOUS EPITHELIAL CELL,UR 0-2 /HPF
[2018-11-25 12:06] LABS: BASOPHILS % (AUTO) 0 % (0-10); EOSINOPHILS # (AUTO) 0.2 10^3/uL (0.0-0.3); EOSINOPHILS % (AUTO) 5 % (0-10); HEMATOCRIT 30 % (35-52); HEMOGLOBIN 10.1 G/DL (11.5-16.0); LYMPHOCYTES # (AUTO) 1.2 X 10^3 (1.0-4.0); LYMPHOCYTES % (AUTO) 26 % (12-44); MEAN CORPUSCULAR HEMOGLOBIN 31 PG (25-34); MEAN CORPUSCULAR HGB CONC 33 G/DL (32-36); MEAN CORPUSCULAR VOLUME 94 FL (80-99); MEAN PLATELET VOLUME 9.8 FL (7.4-10.4); MONOCYTES # (AUTO) 0.4 X 10^3 (0.0-1.0); MONOCYTES % (AUTO) 9 % (0-12); NEUTROPHILS # (AUTO) 2.7 X 10^3 (1.8-7.8); NEUTROPHILS % (AUTO) 60 % (42-75); PLATELET COUNT 109 10^3/uL (130-400); RED CELL DISTRIBUTION WIDTH 14.3 % (10.0-14.5); WHITE BLOOD COUNT 4.5 10^3/uL (4.3-11.0)
[2018-11-25 12:26] LABS: ALANINE AMINOTRANSFERASE 14 U/L (0-55); ALBUMIN 2.9 GM/DL (3.2-4.5); ALKALINE PHOSPHATASE 62 U/L (40-136); BILIRUBIN,TOTAL 0.8 MG/DL (0.1-1.0); BUN/CREATININE RATIO 21; CALCIUM 9.3 MG/DL (8.5-10.1); CARBON DIOXIDE 30 MMOL/L (21-32); CHLORIDE 106 MMOL/L (98-107); CREATININE SERUM 0.85 MG/DL (0.60-1.30); GFR ESTIMATED > 60; GLUCOSE 140 MG/DL (70-105); POTASSIUM 3.8 MMOL/L (3.6-5.0); SODIUM 141 MMOL/L (135-145)
[2018-11-25 12:32] LABS: MAGNESIUM 1.4 MG/DL (1.8-2.4)
[2018-11-25] MEDS ORDERED: NS IV 1000 ML 1,000 ML IV ONE (12:50)
[2018-11-25 12:58] LABS: TSH (THYROID ANALYZER) 1.44 UIU/ML (0.35-4.94)
[2018-11-25] MEDS ORDERED: MAGNESIUM OXIDE (MAG-OX)400 MG TAB PO ONE (13:00)
[2018-11-25] MEDS ORDERED: MAGNESIUM 1 GM/100 ML IVPB 100 ML IV ONE (13:00)
[2018-11-25] MEDS ORDERED: KETOROLAC 30 MG/ML VIAL IVP ONE (14:45)
[2018-11-25] MEDS ORDERED: ACET-2267 PO (15:00)
[2018-11-25] MEDS ORDERED: MAGN250T35 PO (15:00)
[2018-11-25] MEDS ORDERED: TRAM-42 PO (15:04)
[2018-11-25 15:29] VITALS: BP 157/77
== END 2018-11-25 15:29 | disposition home or self-care (01) ==
LOC: EDUNIT# 11:11 → ER 11:12
DX: E83.42 Hypomagnesemia (principal); R53.1 Weakness; M54.9 Dorsalgia, unspecified; M79.672 Pain in left foot; G89.29 Other chronic pain; I48.91 Unspecified atrial fibrillation; I10 Essential (primary) hypertension; E78.00 Pure hypercholesterolemia, unspecified; F03.90 Unspecified dementia, unspecified severity, without behavioral disturbance, psychotic disturbance, mood disturbance, and anxiety; K21.9 Gastro-esophageal reflux disease without esophagitis; E11.9 Type 2 diabetes mellitus without complications; Z86.711 Personal history of pulmonary embolism; Z86.718 Personal history of other venous thrombosis and embolism; Z88.0 Allergy status to penicillin; Z88.5 Allergy status to narcotic agent; Z88.6 Allergy status to analgesic agent; Z79.84 Long term (current) use of oral hypoglycemic drugs; Z95.0 Presence of cardiac pacemaker
CPT/HCPCS: 36415; 80053; 81000; 83735; 84443; 85025

== ENCOUNTER 2018-12-30 07:17 | Emergency (ER) | payer MEDICARE, OTHER, MEDICAID ==
[~2018-12-30] VITALS: Ht 157.5 cm; Wt 116.6 kg
[~2018-12-30 07:17] MED LIST changes: +ACET-2267 PO; +MAGN250T35 PO; +TRAM-42 PO
[2018-12-30] MEDS ORDERED: HYDROcodone/APAP 5 MG/325 MG (LORTAB) TAB PO ONE (07:30)
--- NOTE | 2018-12-30 07:34 | ED Fall/Injury ---
General Stated Complaint: FALL Source: patient Exam Limitations: no limitations History of Present Illness Date Seen by Provider: December 30, 2018 Time Seen by Provider: 07:17 Initial Comments Patient presents to ER by EMS from [facility] with chief complaint she was getting some close out of her closet using her walker and she lost her balance falling backwards against the wall sliding down landing on her backside she twisted her right knee and right ankle and has pain in the bilateral malleoli. No previous history of injury or surgery to her ankle but she has had total knee replacement by Dr. Phillips on bilateral knees. She denies striking her head she is having a little tenderness in the base of her neck. She is on warfarin for history of DVT. She's not having any nausea headache abdominal pain and chest pain diarrhea or constipation. Allergies and Home Medications Allergies Coded Allergies: Penicillins (Unverified Allergy, Unknown, 04/11/18) codeine (Unverified Allergy, Unknown, 04/11/18) aspirin (Verified Adverse Reaction, Unknown, NAUSEA, 04/11/18) Home Medications Acetaminophen 500 Mg Tablet, 1,000 MG PO TID Prescribed by: AMADOR ALVA on 11/25/18 1500 Atorvastatin Calcium 40 Mg Tablet, 40 MG PO HS, (Reported) C,E,Zinc,Copper 11/Aelej7b/Lut 1 Each Capsule, 1 CAP PO DAILY, (Reported) Donepezil HCl 5 Mg Tablet, 5 MG PO HS, (Reported) Fish Oil/Dha/Epa 1 Each Capsule, 1,200 MG PO BID, (Reported) Furosemide 40 Mg Tablet, 40 MG PO DAILY, (Reported) Loperamide HCl 2 Mg Tablet, 2 MG PO Q12H PRN for DIARRHEA, (Reported) Magnesium Oxide 250 Mg Tablet, 250 MG PO BID, (Reported) Metformin HCl 500 Mg Tablet, 500 MG PO BID, (Reported) Metoprolol Succinate 25 Mg Tab.er.24h, 25 MG PO DAILY, (Reported) Miconazole Nitrate 133 Gm Aero.powd, TP Q12H PRN for RASH, (Reported) Multivitamin with Minerals 1 Each Tablet, 1 TAB PO DAILY, (Reported) Omeprazole 40 Mg Capsule.dr, 40 MG PO DAILY, (Reported) Telmisartan 80 Mg Tablet, 80 MG PO DAILY, (Reported) Tramadol HCl 50 Mg Tablet, 25 MG PO BID PRN for PAIN-MODERATE TO SEVERE Prescribed by: AMADOR ALVA on 11/25/18 1504 Patient Home Medication List Home Medication List Reviewed: Yes Review of Systems Review of Systems Constitutional: No chills, No diaphoresis Eyes: Denies Blindness, Denies Blurred Vision Ears, Nose, Mouth, Throat: denies ear pain, denies ear discharge Respiratory: No cough, No phlegm, No short of breath Cardiovascular: No chest pain, No edema Gastrointestinal: No abdominal pain, No constipation, No diarrhea, No nausea Genitourinary: No discharge, No dysuria Musculoskeletal: see HPI; No back pain; joint pain Past Fwxbjdh-Xoaklu-Emybti Hx Patient Social History Alcohol Use: Denies Use Recreational Drug Use: No Smoking Status: Current Everyday Smoker Recent Hopitalizations: No Immunizations Up To Date Tetanus Booster (TDap): More than 5yrs PED Vaccines UTD: No Date of Pneumonia Vaccine: Aug 07, 2016 Date of Influenza Vaccine: Jun 09, 2016 Seasonal Allergies Seasonal Allergies: No Past Medical History Surgeries: Yes Cardiac, Joint Replacement, Orthopedic, Pacemaker Respiratory: Yes Pulmonary Embolism Currently Using CPAP: No Currently Using BIPAP: No Cardiac: Yes (VENA CAVA FILTER; PACEMAKER; LINC DEVICE IMPLANTED; UPPER EXTREMITY DVT) Atrial Fibrillation, Chronic Edema/Swelling, Deep Vein Thrombosis, High Cholesterol, Hypertension, Irregular Heartbeat, Syncope Neurological: Yes (EXPRESSIVE APHASIA) Dementia, Stroke Reproductive Disorders: No Female Reproductive Disorders: Denies Sexually Transmitted Disease: No HIV/AIDS: No Genitourinary: Yes Bladder Infection Gastrointestinal: Yes Gastroesophageal Reflux Musculoskeletal: Yes (BONE SPUR REMOVAL LEFT FOOT; CHRONIC GENERALIZED PAIN) Arthritis, Chronic Back Pain Endocrine: Yes (DM TYPE II) Diabetes, Non-Insulin dep HEENT: No Cancer: No Psychosocial: No Integumentary: No Blood Disorders: Yes Adverse Reaction/Blood Tranf: No Family Medical History Myocardial infarction No Pertinent Family Hx Physical Exam Vital Signs Vital Signs - First Documented 12/30/18 07:20 Temp 97.8 Pulse 60 Resp 18 B/P (MAP) 154/87 (109) Pulse Ox 99 O2 Delivery Room Air Capillary Refill : Height, Weight, BMI Height: 5'3.00" Weight: 250lbs. 4.0oz. 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, no motor/sensory deficits, alert, normal mood/affect, oriented x 3 Skin: normal color, warm/dry Lyon Coma Score Best Eye Response: (4) Open Spontaneously Best Verbal Response: (5) Oriented Best Motor Response: (6) Obeys Commands Lyon Total: 15 Progress/Results/Core Measures Results/Orders My Orders Orders - MAX JACQUES Knee, Right, 3 Views (12/30/18 07:27) Ankle, Right, 3 Views (12/30/18 07:27) Ct Head/Cervical Spine Wo (12/30/18 07:27) Hydrocodone/Apap 5/325 Tablet (Lortab 5 (12/30/18 07:30) Medications Given in ED Current Medications Medications Dose Ordered Sig/Georgie Route Start Time Stop Time Status Last Admin Dose Admin Acetaminophen/ Hydrocodone Bitart 0.5 tab ONCE ONCE PO 12/30/18 07:30 12/30/18 07:31 DC 12/30/18 07:37 0.5 TAB Vital Signs/I&O 12/30/18 07:20 Temp 97.8 Pulse 60 Resp 18 B/P (MAP) 154/87 (109) Pulse Ox 99 O2 Delivery Room Air Progress Progress Note : Time: 07:32 Progress Note Plain films of right ankle and knee. One half tablet of hydrocodone and CT head and neck given her history of warfarin use. Diagnostic Imaging Diagonstic Imaging: Xray Plain Films/CT/US/NM/MRI: ankle (right) Comments No acute fracture .Joint space maintained. Extensive osteoarthritis noted.. NAME: KATHARINE PEREZ [facility] REC#: [id number] PHYSICIAN: MAX JACQUES MD CC: BRUCE LIM MD; MAX JACQUES Page 1 of 1 RADIOLOGY REPORT [facility] [place], [place] CC: BRUCE LIM MD; MAX JACQUES Page 1 of 1 RADIOLOGY REPORT NAME: KATHARINE PEREZ [facility] REC#: [id number] PT STATUS: REG ER : 1940 PHYSICIAN: MAX JACQUES MD ADMIT DATE: 12/30/18/ER Signed Date of Exam: 12/30/18 ANKLE, RIGHT, 3 VIEWS INDICATION: Right ankle injury. Three views right ankle show degenerative changes of the ankle but no acute fracture or dislocation. There is generalized osteopenia. IMPRESSION: There are degenerative changes of the ankle but no acute abnormality seen. There does appear to be some soft tissue swelling. Dictated by: Dictated on workstation # [id number] Dict: 12/30/18805 Trans: 12/30/18811 Interpreted by: BRUCE LIM MD Electronically signed by: BRUCE LIM MD 12/30/18811 Reviewed: Reviewed by Me Diagonstic Imaging: Xray Plain Films/CT/US/NM/MRI: knee (right) Comments Hardware seems to be in good position without loosening or movement. No evidence of acute osseous fracture. NAME: KATHARINE PEREZ [facility] REC#: [id number] PHYSICIAN: MAX JACQUES MD CC: BRUCE LIM MD; MAX JACQUES Page 1 of 1 RADIOLOGY REPORT [facility] [place], [place] CC: BRUCE LIM MD; MAX JACQUES Page 1 of 1 RADIOLOGY REPORT NAME: KATHARINE PEREZ [facility] REC#: [id number] PT STATUS: REG ER : 1940 PHYSICIAN: MAX JACQUES MD ADMIT DATE: 12/30/18/ER Signed Date of Exam: 12/30/18 KNEE, RIGHT, 3 VIEWS Indication: Right knee injury. Three views of right knee show postop changes from joint arthroplasty. There is no evidence of loosening of the prosthesis or acute fracture. Impression: Postop changes right knee arthroplasty. There is myositis ossificans in the distal thigh. No acute abnormality seen. Dictated by: Dictated on workstation # [id number] Dict: 12/30/1807 Trans: 12/30/18811 Interpreted by: BRUCE LIM MD Electronically signed by: BRUCE LIM MD 12/30/18811 Reviewed: Reviewed by Il Diagonstic Imaging: CT (noncontrast) Plain Films/CT/US/NM/MRI: c-spine, head Comments [facility] [place], [place] NAME: KATHARINE PEREZ [facility] REC#: [id number] PT STATUS: REG ER : 1940 PHYSICIAN: MAX JACQUES MD ADMIT DATE: 12/30/18/ER Draft Date of Exam:12/30/18 CT HEAD/CERVICAL SPINE WO CLINICAL INDICATION: Patient fell this morning. Now complains of head or neck pain. EXAM: Head CT without IV contrast. Axial CT scan of the cervical spine with sagittal and coronal reformations. COMPARISON: CT angiogram of the head/neck dated 06/02/2018. FINDINGS: Head CT: There is skull streak artifact which obscures portions of the posterior fossa and brainstem. There is no evidence of acute cerebral infarct, intracranial hemorrhage, or gross mass effect. The brain parenchymal volume appears appropriate for patient's age. Again seen patchy areas of low-attenuation white matter changes involving both cerebral hemispheres, likely representing chronic small vessel ischemic disease. There is normal medina-white matter distinction. There is no significant midline shift or herniation. There is no evidence of hydrocephalus. The basal cisterns are unremarkable. The skull, extracranial soft tissue, and orbits are unremarkable. The paranasal sinuses are unremarkable. Temporal bones show no significant abnormality. Cervical spine: There is streak artifact obscuring the mid and lower cervical spine due to patient body habitus. This limits evaluation for subtle fractures. There is no acute cervical spine fracture or dislocation. There are cervical spine vertebral body spurs and facet arthropathy which is not significantly changed in the interim. There is no significant bony central canal or neural foramen narrowing. The neck soft tissue structures show no significant abnormality. Visualized upper lung flores are clear. IMPRESSION: 1: There is no evidence of acute intracranial process. 2: Cervical spine degenerative disease with no acute fracture or dislocation. Dictated on workstation # [id number] Dict: 12/30/18819 Trans: 12/30/1845 [facility] [id number] Interpreted by: IZZY MYRICK MD Electronically signed by: Reviewed: Reviewed by Me Departure Impression Primary Impression: Fall on same level from stumbling Qualified Codes: W01.0XXA - Fall on same level from slipping, tripping and stumbling without subsequent striking against object, initial encounter Additional Impressions: Ankle sprain Qualified Codes: S93.401A - Sprain of unspecified ligament of right ankle, initial encounter Knee pain, acute Qualified Codes: M25.561 - Pain in right knee Disposition: 01 HOME, SELF-CARE Condition: Stable Departure-Patient Inst. Decision time for Depature: 08:55 Referrals: ADEN LEE DO (PCP/Family) Primary Care Physician Patient Instructions: Ankle Sprain Add. Discharge Instructions: Keep the ankle wrapped with an Dom bandage and use ice for 20 minutes every 4 hours for the first couple days. Keep the ankle elevated above the level of your heart when not in use. Wear the air splint when walking on it and use your walker. Follow-up in one to 2 weeks with primary care for reevaluation as necessary. Tylenol and/or ibuprofen as necessary for pain. MAX JACQUES December 30, 2018 07:33
--- NOTE | 2018-12-30 08:10 | Diagnostic Imaging Report ---
Indication: Right knee injury. Three views of right knee show postop changes from joint arthroplasty. There is no evidence of loosening of the prosthesis or acute fracture. Impression: Postop changes right knee arthroplasty. There is myositis ossificans in the distal thigh. No acute abnormality seen. Dictated by: Dictated on workstation # [id number]
--- NOTE | 2018-12-30 08:10 | Diagnostic Imaging Report ---
INDICATION: Right ankle injury. Three views right ankle show degenerative changes of the ankle but no acute fracture or dislocation. There is generalized osteopenia. IMPRESSION: There are degenerative changes of the ankle but no acute abnormality seen. There does appear to be some soft tissue swelling. Dictated by: Dictated on workstation # [id number]
[2018-12-30] MEDS ORDERED: WARF-48 PO (08:38)
--- NOTE | 2018-12-30 08:46 | Diagnostic Imaging Report ---
CLINICAL INDICATION: Patient fell this morning. Now complains of head or neck pain. EXAM: Head CT without IV contrast. Axial CT scan of the cervical spine with sagittal and coronal reformations. COMPARISON: CT angiogram of the head/neck dated 06/02/2018. FINDINGS: Head CT: There is skull streak artifact which obscures portions of the posterior fossa and brainstem. There is no evidence of acute cerebral infarct, intracranial hemorrhage, or gross mass effect. The brain parenchymal volume appears appropriate for patient's age. Again seen patchy areas of low-attenuation white matter changes involving both cerebral hemispheres, likely representing chronic small vessel ischemic disease. There is normal medina-white matter distinction. There is no significant midline shift or herniation. There is no evidence of hydrocephalus. The basal cisterns are unremarkable. The skull, extracranial soft tissue, and orbits are unremarkable. The paranasal sinuses are unremarkable. Temporal bones show no significant abnormality. Cervical spine: There is streak artifact obscuring the mid and lower cervical spine due to patient body habitus. This limits evaluation for subtle fractures. There is no acute cervical spine fracture or dislocation. There are cervical spine vertebral body spurs and facet arthropathy which is not significantly changed in the interim. There is no significant bony central canal or neural foramen narrowing. The neck soft tissue structures show no significant abnormality. Visualized upper lung flores are clear. IMPRESSION: 1: There is no evidence of acute intracranial process. 2: Cervical spine degenerative disease with no acute fracture or dislocation. Dictated by: Dictated on workstation # [id number]
[2018-12-30 10:40] VITALS: BP 154/87
== END 2018-12-30 10:40 | disposition home or self-care (01) ==
LOC: EDUNIT# 07:17 → ER 07:19
DX: S93.401A Sprain of unspecified ligament of right ankle, initial encounter (principal); M25.561 Pain in right knee; I48.91 Unspecified atrial fibrillation; E78.00 Pure hypercholesterolemia, unspecified; I10 Essential (primary) hypertension; F03.90 Unspecified dementia, unspecified severity, without behavioral disturbance, psychotic disturbance, mood disturbance, and anxiety; K21.9 Gastro-esophageal reflux disease without esophagitis; E11.9 Type 2 diabetes mellitus without complications; R40.2142 Coma scale, eyes open, spontaneous, at arrival to emergency department; R40.2252 Coma scale, best verbal response, oriented, at arrival to emergency department; R40.2362 Coma scale, best motor response, obeys commands, at arrival to emergency department; F17.200 Nicotine dependence, unspecified, uncomplicated; Z88.0 Allergy status to penicillin; Z86.73 Personal history of transient ischemic attack (TIA), and cerebral infarction without residual deficits; Z87.448 Personal history of other diseases of urinary system; Z88.5 Allergy status to narcotic agent; Z86.711 Personal history of pulmonary embolism; Z95.0 Presence of cardiac pacemaker; Z88.6 Allergy status to analgesic agent; Z96.653 Presence of artificial knee joint, bilateral; Z86.718 Personal history of other venous thrombosis and embolism; Z79.84 Long term (current) use of oral hypoglycemic drugs; Z79.01 Long term (current) use of anticoagulants; X50.1XXA Overexertion from prolonged static or awkward postures, initial encounter
CPT/HCPCS: 70450; 72125; 73562; 73610

== ENCOUNTER → 2019-01-06 | Outpatient (CLI) | payer MEDICARE, OTHER, MEDICAID ==
[~2019-01-06] MED LIST changes: +WARF-48 PO
--- NOTE | 2019-01-06 17:23 | Diagnostic Imaging Report ---
INDICATION: Fall with right ankle pain and swelling. EXAMINATION: AP, oblique, and lateral views of the right ankle are obtained. FINDINGS: Since examination of one week earlier, there has been resorption about the nondisplaced distal fibular shaft fracture. Fracture also involves the lateral aspect of the distal tibia with apparent extension into the articular surface. There is mild widening of the ankle mortise. Advanced degenerative changes are seen in the posterior calcaneus. IMPRESSION: The distal fibular and tibial fractures along the lateral aspect of the ankle are more visible on the current study. This is likely due to resorption about the fracture site and early stages of healing. Otherwise, no significant change is detected. Dictated by: Dictated on workstation # [id number]
== END ==
LOC: RAD 16:05
PROVIDERS: ATTEND Family Medicine
DX: S82.831A Other fracture of upper and lower end of right fibula, initial encounter for closed fracture (principal); S82.301A Unspecified fracture of lower end of right tibia, initial encounter for closed fracture; W19.XXXA Unspecified fall, initial encounter
CPT/HCPCS: 73610

== ENCOUNTER 2019-01-08 10:04 | Inpatient (IN) | payer MEDICARE, OTHER, MEDICAID | END 2019-01-14 13:00 | LOC: 4TH 01-10 15:31 → ER 10:04 → 4TH 01-10 15:31 | DX: D53.9 Nutritional anemia, unspecified (principal); N30.00 Acute cystitis without hematuria; F05 Delirium due to known physiological condition; F03.91 Unspecified dementia, unspecified severity, with behavioral disturbance; E87.2 Acidosis; Z68.42 Body mass index [BMI] 45.0-49.9, adult; R79.1 Abnormal coagulation profile; T45.515A Adverse effect of anticoagulants, initial encounter; Z66 Do not resuscitate; I48.0 Paroxysmal atrial fibrillation; I10 Essential (primary) hypertension; I69.892 Facial weakness following other cerebrovascular disease; I69.320 Aphasia following cerebral infarction; E86.0 Dehydration; E11.9 Type 2 diabetes mellitus without complications; E78.2 Mixed hyperlipidemia; E66.9 Obesity, unspecified; K21.9 Gastro-esophageal reflux disease without esophagitis; M19.91 Primary osteoarthritis, unspecified site; M54.9 Dorsalgia, unspecified; Z79.4 Long term (current) use of insulin; Z95.0 Presence of cardiac pacemaker; Z95.828 Presence of other vascular implants and grafts; Z86.718 Personal history of other venous thrombosis and embolism; Z86.711 Personal history of pulmonary embolism; Z79.01 Long term (current) use of anticoagulants; Z96.653 Presence of artificial knee joint, bilateral; Z77.22 Contact with and (suspected) exposure to environmental tobacco smoke (acute) (chronic) ==

== ENCOUNTER 2019-02-03 10:30 | Outpatient (CLI) | payer MEDICARE, OTHER, MEDICAID ==
[~2019-02-03] VITALS: Ht 157.5 cm; Wt 136.1 kg
[~2019-02-03 10:30] MED LIST changes: +FERR-84 PO; +NYST15PO2 TOP; +TOLT2TAB5 PO
== END 2019-02-03 13:18 | disposition home or self-care (01) ==
LOC: PREOP 10:30
PROVIDERS: ATTEND Surgery
DX: Z01.818 Encounter for other preprocedural examination (principal)

== ENCOUNTER 2019-02-05 09:42 | Emergency (ER) | payer MEDICARE, OTHER, MEDICAID ==
[~2019-02-05] VITALS: Ht 157.5 cm; Wt 136.1 kg
[2019-02-05 12:03] LABS: BASOPHILS % (AUTO) 1 % (0-10); EOSINOPHILS # (AUTO) 0.2 10^3/uL (0.0-0.3); EOSINOPHILS % (AUTO) 6 % (0-10); HEMATOCRIT 32 % (35-52); HEMOGLOBIN 10.2 G/DL (11.5-16.0); LYMPHOCYTES % (AUTO) 27 % (12-44); MEAN CORPUSCULAR HEMOGLOBIN 32 PG (25-34); MEAN CORPUSCULAR HGB CONC 32 G/DL (32-36); MEAN CORPUSCULAR VOLUME 100 FL (80-99); MEAN PLATELET VOLUME 9.5 FL (7.4-10.4); MONOCYTES # (AUTO) 0.4 X 10^3 (0.0-1.0); MONOCYTES % (AUTO) 10 % (0-12); NEUTROPHILS % (AUTO) 57 % (42-75); PLATELET COUNT 120 10^3/uL (130-400); RED CELL DISTRIBUTION WIDTH 17.3 % (10.0-14.5); WHITE BLOOD COUNT 3.5 10^3/uL (4.3-11.0)
[2019-02-05 12:20] LABS: ALANINE AMINOTRANSFERASE 17 U/L (0-55); ALBUMIN 2.9 GM/DL (3.2-4.5); ALKALINE PHOSPHATASE 92 U/L (40-136); BILIRUBIN,TOTAL 1.2 MG/DL (0.1-1.0); BUN/CREATININE RATIO 19; CALCIUM 9.1 MG/DL (8.5-10.1); CARBON DIOXIDE 26 MMOL/L (21-32); CHLORIDE 103 MMOL/L (98-107); CREATININE SERUM 0.81 MG/DL (0.60-1.30); GFR ESTIMATED > 60; GLUCOSE 126 MG/DL (70-105); POTASSIUM 4.1 MMOL/L (3.6-5.0); SODIUM 139 MMOL/L (135-145); TOTAL PROTEIN 6.2 GM/DL (6.4-8.2)
[2019-02-05 12:29] LABS: BILIRUBIN,URINE NEGATIVE (NEGATIVE); CLARITY,URINE CLEAR; COLOR,URINE YELLOW; GLUCOSE, URINE (UA) NEGATIVE (NEGATIVE); KETONES,URINE NEGATIVE (NEGATIVE); LEUKOCYTE ESTERASE ,URINE NEGATIVE (NEGATIVE); NITRITE,URINE NEGATIVE (NEGATIVE); PH,URINE 7 (5-9); PROTEIN,URINE NEGATIVE (NEGATIVE); UROBILINOGEN,URINE NORMAL (NORMAL)
[2019-02-05 12:37] LABS: BACTERIA,URINE NEGATIVE /HPF; SQUAMOUS EPITHELIAL CELL,UR RARE /HPF
--- NOTE | 2019-02-05 13:28 | ED GU-Female ---
General Chief Complaint: - Urinary Stated Complaint: CONFUSION Nursing Triage Note: PT WAS DIAGNOSED WITH UTI 1 WEEK AGO WITH NO ANTIBIOTICS PER PATIENT. PT HAS BURNING AND PAIN WITH URINATION AND HAD CONFUSION THIS AM. PT STATES SHE WAS FEELING FOGGY AND SHE DID NOT EAT BREAKFAST. PT STATES SHE WAS HAVING TROUBLE FINDING THE RIGHT ANSWERS THIS AM. PT ALERT AND ORIENT NOW. NO OBVIOUS SIGNS OF STROKE. Nursing Sepsis Screen: No Definite Risk Source: patient, family, old records Exam Limitations: no limitations History of Present Illness Date Seen by Provider: Feb 05, 2019 Time Seen by Provider: 11:25 Initial Comments This 78-year-old woman presents to the emergency room accompanied by her daughter. She is presenting today to be assessed for confusion and possible urinary tract infection. Patient reports some discomfort with urination. Reportedly she was diagnosed with a urinary tract infection a week ago but not treated. Daughter reports that confusion has been an intermittent problem for a few months. She is a little more confused at present than usual but she has had episodes of more significant confusion as well. In review of her medications reveals that she is on medication for dementia. Patient and daughter were not aware that she was being treated for dementia. Patient denies any other physical complaints. Allergies and Home Medications Allergies Coded Allergies: Penicillins (Unverified Allergy, Unknown, 04/11/18) codeine (Unverified Allergy, Unknown, 04/11/18) aspirin (Verified Adverse Reaction, Unknown, NAUSEA, 04/11/18) Home Medications Acetaminophen 500 Mg Tablet, 1,000 MG PO TID, (Reported) Atorvastatin Calcium 40 Mg Tablet, 40 MG PO HS, (Reported) C,E,Zinc,Copper 11/Qmwtp2k/Lut 1 Each Capsule, 1 CAP PO DAILY, (Reported) Donepezil HCl 5 Mg Tablet, 5 MG PO HS, (Reported) Ferrous Sulfate 325 Mg Tablet, 325 MG PO TID Prescribed by: KIRA JONES on 01/14/19 1101 Fish Oil/Dha/Epa 1 Each Capsule, 1,200 MG PO BID, (Reported) Furosemide 40 Mg Tablet, 40 MG PO DAILY, (Reported) Magnesium Oxide 250 Mg Tablet, 250 MG PO TID, (Reported) Metformin HCl 500 Mg Tablet, 500 MG PO BID, (Reported) Metoprolol Succinate 25 Mg Tab.er.24h, 25 MG PO DAILY, (Reported) Multivitamin with Minerals 1 Each Tablet, 1 TAB PO DAILY, (Reported) Nystatin 15 Gm Powder, TOP Q12H, (Reported) Omeprazole 40 Mg Capsule.dr, 40 MG PO DAILY, (Reported) Telmisartan 80 Mg Tablet, 80 MG PO DAILY, (Reported) HOLD FOR SBP <100 Tolterodine Tartrate 2 Mg Tablet, 2 MG PO DAILY, (Reported) Patient Home Medication List Home Medication List Reviewed: Yes Review of Systems Review of Systems Constitutional: no symptoms reported EENTM: no symptoms reported Respiratory: no symptoms reported Cardiovascular: no symptoms reported Gastrointestinal: no symptoms reported Genitourinary: see HPI : No Musculoskeletal: no symptoms reported Skin: no symptoms reported Psychiatric/Neurological: No Symptoms Reported Endocrine: No Symptoms Reported Past Gesthbd-Gnsitl-Icbqlc Hx Past Med/Social Hx: Reviewed and Corrections made Patient Social History Alcohol Use: Denies Use Recreational Drug Use: No 2nd Hand Smoke Exposure: No Recent Foreign Travel: No Contact w/Someone Who Travel: No Recent Infectious Disease Expo: No Recent Hopitalizations: No Physical Abuse: No Sexual Abuse: No Mistreated: No Fear: No Immunizations Up To Date Tetanus Booster (TDap): More than 5yrs PED Vaccines UTD: No Date of Pneumonia Vaccine: Aug 07, 2016 Date of Influenza Vaccine: Jun 09, 2016 Seasonal Allergies Seasonal Allergies: No Past Medical History Surgeries: Yes Cardiac, Joint Replacement, Orthopedic, Pacemaker Respiratory: Yes Pulmonary Embolism Currently Using CPAP: No Currently Using BIPAP: No Cardiac: Yes (VENA CAVA FILTER; PACEMAKER; LINC DEVICE IMPLANTED; UPPER EXTREMITY DVT) Atrial Fibrillation, Chronic Edema/Swelling, Deep Vein Thrombosis, High Cholesterol, Hypertension, Irregular Heartbeat, Syncope Neurological: Yes (EXPRESSIVE APHASIA) Dementia, Stroke Reproductive Disorders: No Female Reproductive Disorders: Denies Sexually Transmitted Disease: No HIV/AIDS: No Genitourinary: Yes Bladder Infection Gastrointestinal: Yes Gastroesophageal Reflux Musculoskeletal: Yes (BONE SPUR REMOVAL LEFT FOOT; CHRONIC GENERALIZED PAIN) Arthritis, Chronic Back Pain Endocrine: Yes (DM TYPE II) Diabetes, Non-Insulin dep HEENT: No Cancer: No Psychosocial: No Integumentary: No Blood Disorders: Yes (anemia) Adverse Reaction/Blood Tranf: No Family Medical History Myocardial infarction No Pertinent Family Hx Physical Exam Vital Signs Vital Signs - First Documented 02/05/19 11:19 Temp 96.8 Pulse 60 Resp 18 B/P (MAP) 179/76 (110) Pulse Ox 98 O2 Delivery Room Air Capillary Refill : Less Than 3 Seconds Height, Weight, BMI Height: 5'2.00" Weight: 300lbs. 0.0oz. 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, no motor/sensory deficits, alert, normal mood/affect, other (Oriented to person, place, age) Skin: normal color, warm/dry Progress/Results/Core Measures Suspected Sepsis Recent Fever Within 48 Hours: No Infection Criteria Present: Documented Infection New/Unexplained Altered Menta: Yes Sepsis Screen: No Definite Risk SIRS Temperature:96.8 Pulse: 60 Respiratory Rate: 18 Blood Pressure 179 /76 Mean: 110 Results/Orders Lab Results My Orders Vital Signs/I&O Capillary Refill : Less Than 3 Seconds Blood Pressure Mean: 110 Progress Note : Progress Note Labs revealed no acute changes to explain her confusion. She did not appear to have urinary tract infection by urinalysis. Patient may be experiencing exacerbations of her dementia. Follow-up with primary care provider was recommended. Departure Impression Primary Impression: Dementia Qualified Codes: F03.90 - Unspecified dementia without behavioral disturbance Additional Impression: Confusion Disposition: 01 HOME, SELF-CARE Condition: Improved Departure-Patient Inst. Decision time for Depature: 13:27 Referrals: ADEN LEE DO (PCP/Family) Primary Care Physician Patient Instructions: Dementia (DC) Add. Discharge Instructions: Return to care if symptoms worsen. Follow-up with Dr. Lee on Thursday or Thursday for a medication review. All discharge instructions reviewed with patient and/or family. Voiced understanding. Copy Copies To 1: ADEN LEE JOSHUA T MD Feb 05, 2019 13:28
[2019-02-05] MEDS ORDERED: HEParin (CENTRAL IV FLUSH) 500 UNIT/5 ML SYR ONE (13:44)
[2019-02-05 13:55] VITALS: BP 179/76
== END 2019-02-05 13:54 | disposition home or self-care (01) ==
LOC: EDUNIT# 09:42 → ER 09:43
DX: F03.90 Unspecified dementia, unspecified severity, without behavioral disturbance, psychotic disturbance, mood disturbance, and anxiety (principal); I48.91 Unspecified atrial fibrillation; E78.00 Pure hypercholesterolemia, unspecified; I10 Essential (primary) hypertension; K21.9 Gastro-esophageal reflux disease without esophagitis; E11.9 Type 2 diabetes mellitus without complications; D64.9 Anemia, unspecified; Z87.448 Personal history of other diseases of urinary system; Z86.73 Personal history of transient ischemic attack (TIA), and cerebral infarction without residual deficits; Z88.0 Allergy status to penicillin; Z88.5 Allergy status to narcotic agent; Z88.6 Allergy status to analgesic agent; Z79.84 Long term (current) use of oral hypoglycemic drugs; Z95.0 Presence of cardiac pacemaker; Z98.890 Other specified postprocedural states; Z86.711 Personal history of pulmonary embolism; Z86.718 Personal history of other venous thrombosis and embolism
CPT/HCPCS: 36415; 80053; 81000; 85025

== ENCOUNTER 2019-02-07 07:05 | Day surgery (SDC) | payer MEDICARE, OTHER, MEDICAID ==
[~2019-02-07] VITALS: Ht 157.5 cm; Wt 136.1 kg
[~2019-02-07 07:05] MED LIST changes: +LACTATED RINGERS 1,000 ML IV ONE
[2019-02-07] MEDS ORDERED: MIDAZOLAM 2 MG/2 ML (VERSED) VIAL ONE (07:28)
[2019-02-07] MEDS ORDERED: PROPOFOL INJECTION 50 ML IV ONE (07:28)
--- NOTE | 2019-02-07 07:36 | Progress Note-Pre Operative ---
Pre-Operative Progress Note H&P Reviewed The H&P was reviewed, patient examined and no changes noted. Date Seen by Provider: Feb 07, 2019 Time Seen by Provider: 07:36 Date H&P Reviewed: Feb 07, 2019 Time H&P Reviewed: 07:36 Pre-Operative Diagnosis: fe def anemia JACKI JORDAN DO Feb 07, 2019 07:36
[2019-02-07] MEDS ORDERED: LACTATED RINGERS 1,000 ML IV STA (08:17)
[2019-02-07 08:20] VITALS: BP 159/56
[2019-02-07] MEDS ORDERED: HURRICAINE EXT TUBE (BENZOCAINE) XX PRN (08:30)
--- NOTE | 2019-02-07 08:49 | Progress Note-Post Operative ---
Post-Operative Progess Note Surgeon (s)/Multimedia Programmer (s) Surgeon JACKI JORDAN DO Multimedia Programmer: na Pre-Operative Diagnosis fe def anemia Post-Operative Diagnosis small hiatal hernia, small varices of esophagus, diverticulosis, hemorrhoid Procedure & Operative Findings Date of Procedure 02/07/19 Procedure Performed/Findings egd c biopsy, colonoscopy Anesthesia Type per scheme technician Estimated Blood Loss Estimated blood loss (mL): none Specimens/Packing Specimens Removed ge JACKI JORDAN DO Feb 07, 2019 08:49
--- NOTE | 2019-02-07 08:51 | Discharge Inst-Simple/Standard ---
Discharge Inst-Standard Patient Instructions/Follow Up Plan of Care/Instructions/FU: 2 weeks Ang Activity as Tolerated: Yes Discharge Diet: Regular Diet JACKI JORDAN DO Feb 07, 2019 08:51
[2019-02-07] MEDS ORDERED: HURRICAINE EXT TUBE (BENZOCAINE) ONE (08:58)
[2019-02-07 09:00] VITALS: BP 130/58
[2019-02-07 09:45] VITALS: BP 165/53
[2019-02-07 10:10] VITALS: BP 165/53
--- NOTE | 2019-02-07 14:31 | Anesthesia-General Post-Op ---
MAC Patient Condition Mental Status/LOC: Same as Preop Cardiovascular: Satisfactory Nausea/Vomiting: Absent Respiratory: Satisfactory Pain: Controlled Complications: Absent Post Op Complications Complications None Follow Up Care/Instructions Patient Instructions None needed. Anesthesiology Discharge Order Discharge Order Patient is doing well, no complaints, stable vital signs, no apparent adverse anesthesia problems. No complications reported per nursing. VICENTA HANKS CRNA Feb 07, 2019 14:31
--- NOTE | 2019-02-07 15:22 | OPERATIVE REPORT ---
DATE OF SERVICE: 02/07/2019 PREOPERATIVE DIAGNOSIS: Iron deficiency anemia. POSTOPERATIVE DIAGNOSES: Small hiatal hernia, small varices of the esophagus, diverticulosis and hemorrhoids. PROCEDURES PERFORMED: Esophagogastroduodenoscopy with biopsy of GE junction and colonoscopy. SURGEON: Arnoldo Fry DO. ANESTHESIA: Per CONTAINER MAKER. ESTIMATED BLOOD LOSS: None. COMPLICATIONS: None. INDICATIONS: The patient is a 78-year-old female with iron deficiency anemia. She understands risks and benefits of procedure and wished to proceed with procedure. Consent was signed in the chart. DESCRIPTION OF PROCEDURE: The patient was taken to the endoscopy suite, placed in left lateral recumbent position. Timeout was performed. Scope was inserted in the mouth, down the esophagus, stomach and into the duodenum. There were no polyps, masses or ulcerations in the duodenum. Scope was slowly retracted back into the stomach where it was further insufflated. Stomach with small benign appearing polyps. There are no masses or ulcerations. No erythematous changes. Scope was retroflexed noting just a very small hiatal hernia. Scope was returned to its normal position, slowly withdrawn to the distal esophagus, had some slight reflux changes. Biopsy of the GE junction was obtained. Also just some small esophageal varices on withdrawal. No other polyps, masses or ulcerations. Colonoscopy was performed. Then, a digital rectal exam was performed. There were no palpable polyps, mass or ulcerations, though there is some hemorrhoidal disease. Scope was inserted in the rectum as well as cecum with minimal difficulty. Prep was adequate. Scope was then slowly retracted back. No polyps, masses or ulcerations in the cecum, ascending, transverse or descending colon. Within the sigmoid colon, minimal amount of diverticulosis was present. Scope was continued to be slowly retracted back with no other polyps, masses or ulcerations. Once in the rectum, scope was retroflexed just having hemorrhoidal disease. Scope was returned to its normal position, slowly withdrawn and completely removed. The patient tolerated procedure well without any complications. She was taken to recovery room in stable condition. RECOMMENDATIONS: The patient is to follow up in the office in 2 weeks. Any issues before that be seen at that time. I do not feel any other deep or any other endoscopy unless the patient is symptomatic. If the patient continues to be iron deficiency anemic, we would also consider referring for capsule endoscopy. Job ID: [id number] DocumentID: [id number] Dictated Date: 02/07/2019 08:54:48 Ux Interaction Designer Date: 02/07/2019 15:21:15 Dictated By: DO SHANA TINSLEY
== END 2019-02-07 10:15 | disposition home or self-care (01) ==
LOC: ENDO 07:05
PROVIDERS: ATTEND Surgery
DX: D50.9 Iron deficiency anemia, unspecified (principal); I85.00 Esophageal varices without bleeding; K44.9 Diaphragmatic hernia without obstruction or gangrene; K57.30 Diverticulosis of large intestine without perforation or abscess without bleeding; K21.0 Gastro-esophageal reflux disease with esophagitis; K64.9 Unspecified hemorrhoids; Z79.01 Long term (current) use of anticoagulants; Z88.0 Allergy status to penicillin; Z79.899 Other long term (current) drug therapy; E11.9 Type 2 diabetes mellitus without complications; I10 Essential (primary) hypertension; E78.5 Hyperlipidemia, unspecified; M48.02 Spinal stenosis, cervical region; Z95.0 Presence of cardiac pacemaker; I48.0 Paroxysmal atrial fibrillation; Z86.73 Personal history of transient ischemic attack (TIA), and cerebral infarction without residual deficits; Z86.718 Personal history of other venous thrombosis and embolism; I77.9 Disorder of arteries and arterioles, unspecified; I25.10 Atherosclerotic heart disease of native coronary artery without angina pectoris; Z79.84 Long term (current) use of oral hypoglycemic drugs; Z96.653 Presence of artificial knee joint, bilateral
CPT/HCPCS: 82962

== ENCOUNTER 2019-02-19 11:49 | Emergency (ER) | payer MEDICARE, OTHER, MEDICAID ==
[~2019-02-19] VITALS: Ht 157.5 cm; Wt 136.1 kg
[~2019-02-19 11:49] MED LIST changes: -LACTATED RINGERS 1,000 ML IV ONE
[2019-02-19 12:05] LABS: BASOPHILS % (AUTO) 1 % (0-10); EOSINOPHILS # (AUTO) 0.1 10^3/uL (0.0-0.3); EOSINOPHILS % (AUTO) 3 % (0-10); HEMATOCRIT 30 % (35-52); HEMOGLOBIN 9.8 G/DL (11.5-16.0); LYMPHOCYTES # (AUTO) 0.9 X 10^3 (1.0-4.0); LYMPHOCYTES % (AUTO) 22 % (12-44); MEAN CORPUSCULAR HEMOGLOBIN 32 PG (25-34); MEAN CORPUSCULAR HGB CONC 33 G/DL (32-36); MEAN CORPUSCULAR VOLUME 97 FL (80-99); MONOCYTES # (AUTO) 0.5 X 10^3 (0.0-1.0); MONOCYTES % (AUTO) 11 % (0-12); NEUTROPHILS # (AUTO) 2.6 X 10^3 (1.8-7.8); NEUTROPHILS % (AUTO) 64 % (42-75); PLATELET COUNT 113 10^3/uL (130-400); RED CELL DISTRIBUTION WIDTH 15.7 % (10.0-14.5); WHITE BLOOD COUNT 4.1 10^3/uL (4.3-11.0)
--- NOTE | 2019-02-19 12:07 | ED General ---
General Chief Complaint: General Problems/Pain Stated Complaint: WEAK Nursing Triage Note: [facility]/o general weakness. nurse calls and reports she does not seem her normal self and that she seems like her "voice change" pt reports not feeling well. pt history of dementia. pt has been on antibiotics for a uti recently. pt alert and orient to self. pt continues to c/o nausea but no episodes of vomiting. long-term denies giving her anti nausea medication. Nursing Sepsis Screen: No Definite Risk Source of Information: Patient Exam Limitations: No Limitations History of Present Illness Date Seen by Provider: Feb 19, 2019 Time Seen by Provider: 12:05 Initial Comments To ER for [facility] with general weakness. Currently on antibiotics for UTI. Complains of nausea and abdominal pain. Timing/Duration: 1-2 Days Severity: Moderate Associated Systoms: Nausea/Vomiting Allergies and Home Medications Allergies Coded Allergies: Penicillins (Unverified Allergy, Unknown, 04/11/18) codeine (Unverified Allergy, Unknown, 04/11/18) aspirin (Verified Adverse Reaction, Unknown, NAUSEA, 04/11/18) Home Medications Acetaminophen 500 Mg Tablet, 1,000 MG PO TID, (Reported) Atorvastatin Calcium 40 Mg Tablet, 40 MG PO HS, (Reported) C,E,Zinc,Copper 11/Hthdq7q/Lut 1 Each Capsule, 1 CAP PO DAILY, (Reported) Donepezil HCl 5 Mg Tablet, 5 MG PO HS, (Reported) Ferrous Sulfate 325 Mg Tablet, 325 MG PO TID Prescribed by: KIRA JONES on 01/14/19 1101 Fish Oil/Dha/Epa 1 Each Capsule, 1,200 MG PO BID, (Reported) Furosemide 40 Mg Tablet, 40 MG PO DAILY, (Reported) Magnesium Oxide 250 Mg Tablet, 250 MG PO TID, (Reported) Metformin HCl 500 Mg Tablet, 500 MG PO BID, (Reported) Metoprolol Succinate 25 Mg Tab.er.24h, 25 MG PO DAILY, (Reported) Multivitamin with Minerals 1 Each Tablet, 1 TAB PO DAILY, (Reported) Nystatin 15 Gm Powder, TOP Q12H, (Reported) Omeprazole 40 Mg Capsule.dr, 40 MG PO DAILY, (Reported) Telmisartan 80 Mg Tablet, 80 MG PO DAILY, (Reported) HOLD FOR SBP <100 Tolterodine Tartrate 2 Mg Tablet, 2 MG PO DAILY, (Reported) Patient Home Medication List Home Medication List Reviewed: Yes Review of Systems Review of Systems Constitutional: see HPI EENTM: see HPI Respiratory: no symptoms reported Cardiovascular: no symptoms reported Gastrointestinal: nausea Genitourinary: no symptoms reported Musculoskeletal: no symptoms reported Skin: no symptoms reported Psychiatric/Neurological: No Symptoms Reported Past Quvbmpz-Ffdkdu-Alpgao Hx Patient Social History Alcohol Use: Denies Use Recreational Drug Use: No 2nd Hand Smoke Exposure: No Recent Foreign Travel: No Contact w/Someone Who Travel: No Recent Infectious Disease Expo: No Recent Hopitalizations: No Physical Abuse: No Sexual Abuse: No Mistreated: No Fear: No Immunizations Up To Date Tetanus Booster (TDap): More than 5yrs PED Vaccines UTD: No Date of Pneumonia Vaccine: Aug 07, 2016 Date of Influenza Vaccine: Jun 09, 2016 Seasonal Allergies Seasonal Allergies: No Past Medical History Surgeries: Yes Cardiac, Joint Replacement, Orthopedic, Pacemaker Respiratory: Yes Pulmonary Embolism Currently Using CPAP: No Currently Using BIPAP: No Cardiac: Yes (VENA CAVA FILTER; PACEMAKER; LINC DEVICE IMPLANTED; UPPER EXTREMITY DVT) Atrial Fibrillation, Chronic Edema/Swelling, Deep Vein Thrombosis, High Cholesterol, Hypertension, Irregular Heartbeat, Syncope Neurological: Yes (EXPRESSIVE APHASIA) Dementia, Stroke Reproductive Disorders: No Female Reproductive Disorders: Denies Sexually Transmitted Disease: No HIV/AIDS: No Genitourinary: Yes Bladder Infection Gastrointestinal: Yes Gastroesophageal Reflux Musculoskeletal: Yes (BONE SPUR REMOVAL LEFT FOOT; CHRONIC GENERALIZED PAIN) Arthritis, Chronic Back Pain Endocrine: Yes (DM TYPE II) Diabetes, Non-Insulin dep HEENT: No Cancer: No Psychosocial: No Integumentary: No Blood Disorders: Yes (anemia) Adverse Reaction/Blood Tranf: No Family Medical History Myocardial infarction No Pertinent Family Hx Physical Exam Vital Signs Vital Signs - First Documented 02/19/19 11:55 Temp 98.7 Pulse 71 Resp 18 B/P (MAP) 135/43 (73) Capillary Refill : Less Than 3 Seconds Height, Weight, BMI Height: 5'2.00" Weight: 300lbs. 0.0oz. [id number]; 54.9 BMI Method:Estimated General Appearance: No Apparent Distress, WD/WN, Obese Eyes: Bilateral Eye Normal Inspection, Bilateral Eye PERRL, Bilateral Eye EOMI HEENT: PERRL/EOMI, TMs Normal Neck: Full Range of Motion Respiratory: No Accessory Muscle Use, No Respiratory Distress Cardiovascular: Regular Rate, Rhythm, Normal Peripheral Pulses, Systolic Murmur (systolic ejection murmur grade 2/6), Other (anasarca with edema to upper and lower extremities) Gastrointestinal: Normal Bowel Sounds, Soft, Tenderness Extremity: Normal Capillary Refill, Pedal Edema Neurologic/Psychiatric: Alert, Other (oriented to person not place time or situation) Skin: Normal Color, Warm/Dry Progress/Results/Core Measures Suspected Sepsis Recent Fever Within 48 Hours: No Infection Criteria Present: None New/Unexplained Altered Menta: Yes Sepsis Screen: No Definite Risk SIRS Temperature:98.7 Pulse: 71 Respiratory Rate: 18 Laboratory Tests 02/19/19 12:00: White Blood Count 4.1L Blood Pressure 135 /43 Mean: 73 Laboratory Tests 02/19/19 12:00: Creatinine 1.18, Platelet Count 113L, Total Bilirubin 0.7 Results/Orders Lab Results Laboratory Tests Test 02/19/19 12:00 02/19/19 12:58 Range/Units White Blood Count 4.1 L 4.3-11.0 10^3/uL Red Blood Count 3.07 L 4.35-5.85 10^6/uL Hemoglobin 9.8 L 11.5-16.0 G/DL Hematocrit 30 L 35-52 % Mean Corpuscular Volume 97 80-99 FL Mean Corpuscular Hemoglobin 32 25-34 PG Mean Corpuscular Hemoglobin Concent 33 32-36 G/DL Red Cell Distribution Width 15.7 H 10.0-14.5 % Platelet Count 113 L 130-400 10^3/uL Mean Platelet Volume 10.0 7.4-10.4 FL Neutrophils (%) (Auto) 64 42-75 % Lymphocytes (%) (Auto) 22 12-44 % Monocytes (%) (Auto) 11 0-12 % Eosinophils (%) (Auto) 3 0-10 % Basophils (%) (Auto) 1 0-10 % Neutrophils # (Auto) 2.6 1.8-7.8 X 10^3 Lymphocytes # (Auto) 0.9 L 1.0-4.0 X 10^3 Monocytes # (Auto) 0.5 0.0-1.0 X 10^3 Eosinophils # (Auto) 0.1 0.0-0.3 10^3/uL Basophils # (Auto) 0.0 0.0-0.1 10^3/uL Sodium Level 132 L 135-145 MMOL/L Potassium Level 5.0 3.6-5.0 MMOL/L Chloride Level 98 98-107 MMOL/L Carbon Dioxide Level 22 21-32 MMOL/L Anion Gap 12 5-14 MMOL/L Blood Urea Nitrogen 20 H 7-18 MG/DL Creatinine 1.18 0.60-1.30 MG/DL Estimat Glomerular Filtration Rate 44 BUN/Creatinine Ratio 17 Glucose Level 83 70-105 MG/DL Calcium Level 8.7 8.5-10.1 MG/DL Corrected Calcium 9.7 8.5-10.1 MG/DL Magnesium Level 1.1 L 1.8-2.4 MG/DL Total Bilirubin 0.7 0.1-1.0 MG/DL Aspartate Amino Transf (AST/SGOT) 25 5-34 U/L Alanine Aminotransferase (ALT/SGPT) 15 0-55 U/L Alkaline Phosphatase 76 40-136 U/L Troponin I < 0.028 <0.028 NG/ML B-Type Natriuretic Peptide 354.7 H <100.0 PG/ML Total Protein 5.8 L 6.4-8.2 GM/DL Albumin 2.8 L 3.2-4.5 GM/DL Urine Color YELLOW Urine Clarity CLEAR Urine pH 7 5-9 Urine Specific [place] 1.010 L 1.016-1.022 Urine Protein NEGATIVE NEGATIVE Urine Glucose (UA) NEGATIVE NEGATIVE Urine Ketones NEGATIVE NEGATIVE Urine Nitrite NEGATIVE NEGATIVE Urine Bilirubin NEGATIVE NEGATIVE Urine Urobilinogen NORMAL NORMAL MG/DL Urine Leukocyte Esterase NEGATIVE NEGATIVE Urine RBC (Auto) NEGATIVE NEGATIVE Urine RBC NONE /HPF Urine WBC NONE /HPF Urine Crystals NONE /LPF Urine Bacteria TRACE /HPF Urine Casts NONE /LPF Urine Mucus NEGATIVE /LPF Urine Culture Indicated NO My Orders Orders - TWYLA VALVERDE APRN Cbc With Automated Diff (02/19/19 11:57) Comprehensive Metabolic Panel (02/19/19 11:57) BNP (02/19/19 11:57) Magnesium (02/19/19 11:57) Troponin I (02/19/19 11:57) Chest 1 View, Ap/Pa Only (02/19/19 11:57) Ua Culture If Indicated (02/19/19 11:57) Ed Iv/Invasive Line Start (02/19/19 11:57) Ondansetron Injection (Zofran Injectio (02/19/19 12:15) Medications Given in ED Current Medications Medications Dose Ordered Sig/Georgie Route Start Time Stop Time Status Last Admin Dose Admin Ondansetron HCl 8 mg ONCE ONCE IVP 02/19/19 12:15 02/19/19 12:16 DC 02/19/19 12:16 8 MG Vital Signs/I&O 02/19/19 11:55 Temp 98.7 Pulse 71 Resp 18 B/P (MAP) 135/43 (73) Capillary Refill : Less Than 3 Seconds Blood Pressure Mean: 73 Departure Communication (Admissions) 1330-discussed unremarkable labs with patient and long-term. We will send her back to the long-term. detention staff states that she was just unusually confused this morning Impression Primary Impression: Altered mental status Qualified Codes: R41.82 - Altered mental status, unspecified Disposition: 03 XFER SNF Condition: Improved Departure-Patient Inst. Decision time for Depature: 13:31 Referrals: ADEN LEE DO (PCP/Family) Primary Care Physician Patient Instructions: NO INSTRUCTIONS GIVEN TWYLA VALVERDE SPECIAL EDUCATION INCLUSION TEACHER Feb 19, 2019 12:07
[2019-02-19] MEDS ORDERED: ONDANSETRON 4 MG/2 ML (SDV) Z0FRAN IVP ONE (12:15)
[2019-02-19 12:28] LABS: ALANINE AMINOTRANSFERASE 15 U/L (0-55); ALBUMIN 2.8 GM/DL (3.2-4.5); ALKALINE PHOSPHATASE 76 U/L (40-136); BILIRUBIN,TOTAL 0.7 MG/DL (0.1-1.0); BUN/CREATININE RATIO 17; CALCIUM 8.7 MG/DL (8.5-10.1); CARBON DIOXIDE 22 MMOL/L (21-32); CHLORIDE 98 MMOL/L (98-107); CREATININE SERUM 1.18 MG/DL (0.60-1.30); GFR ESTIMATED 44; GLUCOSE 83 MG/DL (70-105); MAGNESIUM 1.1 MG/DL (1.8-2.4); SODIUM 132 MMOL/L (135-145); TOTAL PROTEIN 5.8 GM/DL (6.4-8.2)
[2019-02-19 13:05] LABS: BILIRUBIN,URINE NEGATIVE (NEGATIVE); CLARITY,URINE CLEAR; COLOR,URINE YELLOW; GLUCOSE, URINE (UA) NEGATIVE (NEGATIVE); KETONES,URINE NEGATIVE (NEGATIVE); LEUKOCYTE ESTERASE ,URINE NEGATIVE (NEGATIVE); NITRITE,URINE NEGATIVE (NEGATIVE); PH,URINE 7 (5-9); PROTEIN,URINE NEGATIVE (NEGATIVE); UROBILINOGEN,URINE NORMAL (NORMAL)
[2019-02-19 13:12] LABS: BACTERIA,URINE TRACE /HPF
--- NOTE | 2019-02-19 13:15 | Diagnostic Imaging Report ---
EXAMINATION: Chest radiograph, portable AP view. DATE: February 19, 2019 at 1245 hours. INDICATION: 78-year-old female, nausea and weakness. COMPARISON: January 08, 2019. FINDINGS: There is a left shoulder prosthesis partially imaged. There is a left-sided cardiac assist device with leads. Stable overall appearance of the cardiomediastinal silhouette. There is no identified pneumothorax. There is no large pleural effusion. There are slightly prominent pulmonary vascular markings. There is no identified alveolar consolidation. IMPRESSION: 1. Slightly prominent interstitial markings which may potentially reflect mild pulmonary vascular congestion. Dictated by: Dictated on workstation # [id number]
[2019-02-19 14:07] VITALS: BP 135/43
== END 2019-02-19 14:10 ==
LOC: EDUNIT# 11:49 → ER 11:50
DX: R41.82 Altered mental status, unspecified (principal); I48.91 Unspecified atrial fibrillation; I10 Essential (primary) hypertension; E78.00 Pure hypercholesterolemia, unspecified; F03.90 Unspecified dementia, unspecified severity, without behavioral disturbance, psychotic disturbance, mood disturbance, and anxiety; K21.9 Gastro-esophageal reflux disease without esophagitis; E11.9 Type 2 diabetes mellitus without complications; Z86.73 Personal history of transient ischemic attack (TIA), and cerebral infarction without residual deficits; Z86.718 Personal history of other venous thrombosis and embolism; Z88.0 Allergy status to penicillin; Z88.5 Allergy status to narcotic agent; Z88.6 Allergy status to analgesic agent; Z79.84 Long term (current) use of oral hypoglycemic drugs; Z95.0 Presence of cardiac pacemaker; Z86.711 Personal history of pulmonary embolism
CPT/HCPCS: 36415; 51702; 71045; 80053; 81000; 83735; 83880; 84484; 85025

== ENCOUNTER 2019-05-05 10:03 | Emergency (ER) | payer MEDICARE, OTHER, MEDICAID ==
[~2019-05-05] VITALS: Ht 165.1 cm; Wt 127.5 kg
[~2019-05-05 10:03] MED LIST changes: -D-ME118S7 PO; +PROM118S4 PO
--- NOTE | 2019-05-05 10:03 | NUR ---
UNABLE TO DRAW BLOOD FROM IV. LAB CALLED TO DRAW BLOOD CULTURE AND LATIC ACID.
[2019-05-05] MEDS ORDERED: NS IV 500 ML 500 ML IV ONE (10:14)
--- NOTE | 2019-05-05 10:46 | ED General ---
General Chief Complaint: Neurological Problems Stated Complaint: AMS Nursing Triage Note: TO ED PER EMS FROM [facility]. PER NURSE REPORT SHE WENT TO PATIENT ROOM AT 8A TODAY SHE DID NOT KNOW HER NAME HER NURSE NAME REPORTS HE DOES HAVE DEMENTIA ,BUT CAN ANSWER THOSE QUESTIONS. ON ADMIT TO ED WHEN ASKED WHERE SHE WAS PATIENT REPORTS AT THE HOSPITAL Nursing Sepsis Screen: No Definite Risk Source of Information: Patient Exam Limitations: No Limitations History of Present Illness Date Seen by Provider: May 05, 2019 Time Seen by Provider: 10:12 Initial Comments Here with report of being a bit confused this morning. This is not her typical state although she does this intermittently especially with urinary tract infections. Sent over from the detention for further evaluation. Patient knows who she is and where she is at but does seem a bit confused. She is morbidly obese. Complains of pain pretty much wherever you touch and then states that she is having a little pain in her abdomen. She is not able to qualify this. Timing/Duration: 1-3 Hours Severity: Mild Associated Systoms: No Chest Pain, No Fever/Chills, No Nausea/Vomiting, No Shortness of Air; Weakness Allergies and Home Medications Allergies Coded Allergies: Penicillins (Unverified Allergy, Unknown, 04/11/18) codeine (Unverified Allergy, Unknown, 04/11/18) aspirin (Verified Adverse Reaction, Unknown, NAUSEA, 04/11/18) Home Medications Acetaminophen 500 Mg Tablet, 1,000 MG PO TID, (Reported) Atorvastatin Calcium 40 Mg Tablet, 40 MG PO HS, (Reported) C,E,Zinc,Copper 11/Lasxy6t/Lut 1 Each Capsule, 1 CAP PO DAILY, (Reported) Donepezil HCl 5 Mg Tablet, 5 MG PO HS, (Reported) Ferrous Sulfate 325 Mg Tablet, 325 MG PO TID Prescribed by: KIRA JONES on 01/14/19 1101 Fish Oil/Dha/Epa 1 Each Capsule, 1,200 MG PO BID, (Reported) Furosemide 40 Mg Tablet, 40 MG PO DAILY, (Reported) Magnesium Oxide 250 Mg Tablet, 250 MG PO TID, (Reported) Metformin HCl 500 Mg Tablet, 500 MG PO BID, (Reported) Metoprolol Succinate 25 Mg Tab.er.24h, 25 MG PO DAILY, (Reported) Multivitamin with Minerals 1 Each Tablet, 1 TAB PO DAILY, (Reported) Nystatin 15 Gm Powder, TOP Q12H, (Reported) Omeprazole 40 Mg Capsule.dr, 40 MG PO DAILY, (Reported) Telmisartan 80 Mg Tablet, 80 MG PO DAILY, (Reported) HOLD FOR SBP <100 Tolterodine Tartrate 2 Mg Tablet, 2 MG PO DAILY, (Reported) Patient Home Medication List Home Medication List Reviewed: Yes Review of Systems Review of Systems Constitutional: see HPI; No chills, No fever EENTM: no symptoms reported Respiratory: no symptoms reported Cardiovascular: no symptoms reported Gastrointestinal: abdominal pain; No nausea, No vomiting Genitourinary: no symptoms reported Musculoskeletal: no symptoms reported Psychiatric/Neurological: See HPI, Weakness, Other (confusion) All Other Systems Reviewed Negative Unless Noted: Yes Past Yylwhqw-Lucdpx-Uppnpa Hx Past Med/Social Hx: Reviewed Nursing Past Med/Soc Hx Patient Social History Alcohol Use: Denies Use Recreational Drug Use: No Smoking Status: Unknown if Ever Smoked 2nd Hand Smoke Exposure: No Recent Foreign Travel: No Contact w/Someone Who Travel: No Recent Infectious Disease Expo: No Recent Hopitalizations: No Immunizations Up To Date Tetanus Booster (TDap): More than 5yrs PED Vaccines UTD: No Date of Pneumonia Vaccine: Aug 07, 2016 Date of Influenza Vaccine: Jun 09, 2016 Seasonal Allergies Seasonal Allergies: No Past Medical History Surgeries: Yes Cardiac, Joint Replacement, Orthopedic, Pacemaker Respiratory: Yes Pulmonary Embolism Currently Using CPAP: No Currently Using BIPAP: No Cardiac: Yes (VENA CAVA FILTER; PACEMAKER; LINC DEVICE IMPLANTED; UPPER EXTREMITY DVT) Atrial Fibrillation, Chronic Edema/Swelling, Deep Vein Thrombosis, High Cholesterol, Hypertension, Irregular Heartbeat, Syncope Neurological: Yes (EXPRESSIVE APHASIA) Dementia, Stroke Reproductive Disorders: No Female Reproductive Disorders: Denies Sexually Transmitted Disease: No HIV/AIDS: No Genitourinary: Yes Bladder Infection Gastrointestinal: Yes Gastroesophageal Reflux Musculoskeletal: Yes (BONE SPUR REMOVAL LEFT FOOT; CHRONIC GENERALIZED PAIN) Arthritis, Chronic Back Pain Endocrine: Yes (DM TYPE II) Diabetes, Non-Insulin dep HEENT: No Cancer: No Psychosocial: No Integumentary: No Blood Disorders: Yes (anemia) Adverse Reaction/Blood Tranf: No Family Medical History Reviewed Nursing Family Hx Myocardial infarction No Pertinent Family Hx Physical Exam Vital Signs Vital Signs - First Documented 05/05/19 10:03 Temp 97.3 Pulse 81 Resp 18 B/P (MAP) 187/78 (114) Pulse Ox 96 O2 Delivery Room Air Capillary Refill : Less Than 3 Seconds Height, Weight, BMI Height: 5'5.00" Weight: 281lbs. 0.0oz. 127.493826eg; 54.9 BMI Method:Stated General Appearance: No Apparent Distress, WD/WN HEENT: PERRL/EOMI, Pharynx Normal Neck: Non Tender, Supple Respiratory: Lungs Clear, Normal Breath Sounds Cardiovascular: Regular Rate, Rhythm, No Murmur Gastrointestinal: Soft, Other (mild tenderness in the areas of the reflection of the past where she has skin irritation. Powder has been applied to these areas.) Extremity: Normal Range of Motion, Non Tender Neurologic/Psychiatric: Alert, Other (oriented to self and place but a little confused to situation.) Skin: Normal Color, Warm/Dry Focused Exam Lactate Level 05/05/19 10:33: Lactic Acid Level 1.34 Lactic Acid Level Laboratory Tests Test 05/05/19 10:33 Lactic Acid Level 1.34 MMOL/L (0.50-2.00) Progress/Results/Core Measures Suspected Sepsis Recent Fever Within 48 Hours: No Infection Criteria Present: None New/Unexplained Altered Menta: No Sepsis Screen: No Definite Risk SIRS Temperature:97.3 Pulse: 81 Respiratory Rate: 18 Laboratory Tests 05/05/19 10:33: White Blood Count 3.3L Blood Pressure 187 /78 Mean: 114 05/05/19 10:33: Lactic Acid Level 1.34 Laboratory Tests 05/05/19 10:33: Creatinine 0.98, Platelet Count 95L, Total Bilirubin 0.9 Results/Orders Lab Results Laboratory Tests Test 05/05/19 10:33 05/05/19 11:06 Range/Units White Blood Count 3.3 L 4.3-11.0 10^3/uL Red Blood Count 3.33 L 4.35-5.85 10^6/uL Hemoglobin 10.7 L 11.5-16.0 G/DL Hematocrit 34 L 35-52 % Mean Corpuscular Volume 101 H 80-99 FL Mean Corpuscular Hemoglobin 32 25-34 PG Mean Corpuscular Hemoglobin Concent 32 32-36 G/DL Red Cell Distribution Width 15.1 H 10.0-14.5 % Platelet Count 95 L 130-400 10^3/uL Mean Platelet Volume 9.8 7.4-10.4 FL Neutrophils (%) (Auto) 59 42-75 % Lymphocytes (%) (Auto) 27 12-44 % Monocytes (%) (Auto) 11 0-12 % Eosinophils (%) (Auto) 2 0-10 % Basophils (%) (Auto) 0 0-10 % Neutrophils # (Auto) 2.0 1.8-7.8 X 10^3 Lymphocytes # (Auto) 0.9 L 1.0-4.0 X 10^3 Monocytes # (Auto) 0.4 0.0-1.0 X 10^3 Eosinophils # (Auto) 0.1 0.0-0.3 10^3/uL Basophils # (Auto) 0.0 0.0-0.1 10^3/uL Sodium Level 138 135-145 MMOL/L Potassium Level 4.4 3.6-5.0 MMOL/L Chloride Level 101 98-107 MMOL/L Carbon Dioxide Level 28 21-32 MMOL/L Anion Gap 9 5-14 MMOL/L Blood Urea Nitrogen 19 H 7-18 MG/DL Creatinine 0.98 0.60-1.30 MG/DL Estimat Glomerular Filtration Rate 55 BUN/Creatinine Ratio 19 Glucose Level 88 70-105 MG/DL Lactic Acid Level 1.34 0.50-2.00 MMOL/L Calcium Level 9.7 8.5-10.1 MG/DL Corrected Calcium 10.3 H 8.5-10.1 MG/DL Total Bilirubin 0.9 0.1-1.0 MG/DL Aspartate Amino Transf (AST/SGOT) 32 5-34 U/L Alanine Aminotransferase (ALT/SGPT) 27 0-55 U/L Alkaline Phosphatase 87 40-136 U/L C-Reactive Protein High Sensitivity 1.18 H 0.00-0.50 MG/DL Total Protein 6.8 6.4-8.2 GM/DL Albumin 3.3 3.2-4.5 GM/DL Urine Color YELLOW Urine Clarity CLEAR Urine pH 8 5-9 Urine Specific [place] 1.010 L 1.016-1.022 Urine Protein NEGATIVE NEGATIVE Urine Glucose (UA) NEGATIVE NEGATIVE Urine Ketones NEGATIVE NEGATIVE Urine Nitrite NEGATIVE NEGATIVE Urine Bilirubin NEGATIVE NEGATIVE Urine Urobilinogen NORMAL NORMAL MG/DL Urine Leukocyte Esterase NEGATIVE NEGATIVE Urine RBC (Auto) NEGATIVE NEGATIVE Urine RBC RARE /HPF Urine WBC 0-2 /HPF Urine Crystals NONE /LPF Urine Bacteria TRACE /HPF Urine Casts NONE /LPF Urine Mucus NEGATIVE /LPF Urine Culture Indicated NO My Orders Orders - BRUCE FORTE MD Straight Cath For Spec.-Adult (05/05/19 10:14) Cbc With Automated Diff (05/05/19 10:14) Comprehensive Metabolic Panel (05/05/19 10:14) Hs C Reactive Protein (05/05/19 10:14) Lactic Acid Analyzer (05/05/19 10:14) Ua Culture If Indicated (05/05/19 10:14) Blood Culture (05/05/19 10:14) Ed Iv/Invasive Line Start (05/05/19 10:14) Ns Iv 500 Ml (Sodium Chloride 0.9%) (05/05/19 10:14) Acetaminophen Tablet (Tylenol Tablet) (05/05/19 11:42) Toradol 30 Mg Ivp (05/05/19 11:42) Medications Given in ED Current Medications Medications Dose Ordered Sig/Georgie Route Start Time Stop Time Status Last Admin Dose Admin Sodium Chloride 500 ml @ 0 mls/hr Q0M ONCE IV 05/05/19 10:14 05/05/19 10:21 DC 05/05/19 11:12 500 MLS/HR Vital Signs/I&O 05/05/19 10:03 Temp 97.3 Pulse 81 Resp 18 B/P (MAP) 187/78 (114) Pulse Ox 96 O2 Delivery Room Air Capillary Refill : Less Than 3 Seconds Blood Pressure Mean: 114 Progress Note : Progress Note Seen and evaluated. IV, labs, UA, normal saline 500 mL bolus ordered. Monitor patient. 1143: No acute findings noted. Labs compared to previous and are in good range. Patient is complaining of knee pain now. Toradol 30 mg IV and Tylenol 1 g by mouth ordered. CT returned to detention. Patient is not significantly confused currently and does know her name and where she is at. Discharge back to detention with return precautions. Patient verbalize understanding instructions and agreement with plan. Departure Impression Primary Impression: Confusion Additional Impression: Arthralgia Qualified Codes: M25.50 - Pain in unspecified joint Disposition: 01 HOME, SELF-CARE Condition: Stable Departure-Patient Inst. Decision time for Depature: 11:45 Referrals: ADEN LEE DO (PCP/Family) Primary Care Physician Patient Instructions: Altered Mental Status (DC), Muscle and Bone Pain (DC) Add. Discharge Instructions: All discharge instructions reviewed with patient and/or family. Voiced understanding. Continue home medicines as previously prescribed. Follow-up with your Dr. in a few days for recheck and further evaluation. Return for worse pain, fever, vomiting, weakness, breathing problems or other concerns as needed. BRUCE FORTE MD May 05, 2019 10:46
[2019-05-05 11:00] LABS: BASOPHILS % (AUTO) 0 % (0-10); EOSINOPHILS # (AUTO) 0.1 10^3/uL (0.0-0.3); EOSINOPHILS % (AUTO) 2 % (0-10); HEMATOCRIT 34 % (35-52); HEMOGLOBIN 10.7 G/DL (11.5-16.0); LYMPHOCYTES # (AUTO) 0.9 X 10^3 (1.0-4.0); LYMPHOCYTES % (AUTO) 27 % (12-44); MEAN CORPUSCULAR HEMOGLOBIN 32 PG (25-34); MEAN CORPUSCULAR HGB CONC 32 G/DL (32-36); MEAN CORPUSCULAR VOLUME 101 FL (80-99); MEAN PLATELET VOLUME 9.8 FL (7.4-10.4); MONOCYTES # (AUTO) 0.4 X 10^3 (0.0-1.0); MONOCYTES % (AUTO) 11 % (0-12); NEUTROPHILS % (AUTO) 59 % (42-75); PLATELET COUNT 95 10^3/uL (130-400); RED CELL DISTRIBUTION WIDTH 15.1 % (10.0-14.5); WHITE BLOOD COUNT 3.3 10^3/uL (4.3-11.0)
--- NOTE | 2019-05-05 11:09 | NUR ---
PLEITEZ PLACED BY MIGEL MERRITT
[2019-05-05 11:12] LABS: BILIRUBIN,URINE NEGATIVE (NEGATIVE); CLARITY,URINE CLEAR; COLOR,URINE YELLOW; GLUCOSE, URINE (UA) NEGATIVE (NEGATIVE); KETONES,URINE NEGATIVE (NEGATIVE); LEUKOCYTE ESTERASE ,URINE NEGATIVE (NEGATIVE); NITRITE,URINE NEGATIVE (NEGATIVE); PH,URINE 8 (5-9); PROTEIN,URINE NEGATIVE (NEGATIVE); UROBILINOGEN,URINE NORMAL (NORMAL)
[2019-05-05 11:19] LABS: ALBUMIN 3.3 GM/DL (3.2-4.5); BILIRUBIN,TOTAL 0.9 MG/DL (0.1-1.0); CALCIUM 9.7 MG/DL (8.5-10.1); CREATININE SERUM 0.98 MG/DL (0.60-1.30); POTASSIUM 4.4 MMOL/L (3.6-5.0); TOTAL PROTEIN 6.8 GM/DL (6.4-8.2)
[2019-05-05 11:27] LABS: BACTERIA,URINE TRACE /HPF; RBC,URINE RARE /HPF; WBC,URINE 0-2 /HPF
[2019-05-05] MEDS ORDERED: ACETAMINOPHEN 500 MG TAB (TYLENOL) PO STA (11:42)
[2019-05-05] MEDS ORDERED: KETOROLAC 30 MG/ML VIAL IVP STA (11:42)
--- NOTE | 2019-05-05 11:50 | NUR ---
[facility] CALLED TO COME GET PATIENT.
[2019-05-05 12:10] VITALS: BP 190/90
== END 2019-05-05 12:10 | disposition home or self-care (01) ==
LOC: ER 10:03 → EDUNIT# 10:03 → ER 12:10
DX: R41.0 Disorientation, unspecified (principal); M79.672 Pain in left foot; R10.84 Generalized abdominal pain; E66.01 Morbid (severe) obesity due to excess calories; I48.91 Unspecified atrial fibrillation; I10 Essential (primary) hypertension; E78.00 Pure hypercholesterolemia, unspecified; F03.90 Unspecified dementia, unspecified severity, without behavioral disturbance, psychotic disturbance, mood disturbance, and anxiety; K21.9 Gastro-esophageal reflux disease without esophagitis; E11.9 Type 2 diabetes mellitus without complications; Z86.73 Personal history of transient ischemic attack (TIA), and cerebral infarction without residual deficits; Z86.718 Personal history of other venous thrombosis and embolism; Z86.711 Personal history of pulmonary embolism; Z88.0 Allergy status to penicillin; Z88.5 Allergy status to narcotic agent; Z88.6 Allergy status to analgesic agent; Z79.84 Long term (current) use of oral hypoglycemic drugs; Z95.0 Presence of cardiac pacemaker; Z68.42 Body mass index [BMI] 45.0-49.9, adult
CPT/HCPCS: 36415; 51701; 80053; 81000; 83605; 85025; 86141; 87040; 96361; 96374

== ENCOUNTER → 2019-05-18 | Outpatient (CLI) | payer MEDICARE, OTHER, MEDICAID ==
--- NOTE | 2019-05-18 16:14 | Diagnostic Imaging Report ---
INDICATION: Chronic bilateral knee pain. TIME OF EXAM: 11:32 a.m. Multiple views of bilateral knees were obtained. FINDINGS: Both knees demonstrate postop changes of total knee arthroplasty. Prosthetic elements appear to be in good position, without evidence of fracture or loosening. There are some dystrophic calcifications in the suprapatellar location of the left knee. This is noted to a lesser degree in the right knee. The bony structures are intact without fracture. IMPRESSION: Postsurgical changes of bilateral knee arthroplasty. No acute bony abnormality is detected. Dictated by: Dictated on workstation # [id number]
== END ==
LOC: RAD 11:12
PROVIDERS: ATTEND Family Medicine
DX: M25.561 Pain in right knee (principal); M25.562 Pain in left knee; Z98.890 Other specified postprocedural states

== ENCOUNTER 2019-06-06 11:09 | Emergency (ER) | payer MEDICARE, OTHER, MEDICAID ==
[~2019-06-06] VITALS: Ht 157.4 cm; Wt 150.0 kg
--- NOTE | 2019-06-06 11:34 | ED General ---
General Stated Complaint: "NOT ACTING HERSELF" Source of Information: Patient Exam Limitations: No Limitations History of Present Illness Date Seen by Provider: Jun 06, 2019 Time Seen by Provider: 11:31 Initial Comments To ER with reports of "not acting herself". He was seen at Dr. Cortez's office today and was noted to be generally weak more so than usual for the past one week. No fevers, complains of a pounding headache, intermittent nausea. Blurred vision. No chest pain no shortness of breath. She was found to have a white count of 3300, platelet count of 74,000 and hypothermia at 94.7. Timing/Duration: 1 Week Severity: Moderate Associated Systoms: Headaches, Nausea/Vomiting, Weakness Allergies and Home Medications Allergies Coded Allergies: Penicillins (Unverified Allergy, Unknown, 04/11/18) codeine (Unverified Allergy, Unknown, 04/11/18) aspirin (Verified Adverse Reaction, Unknown, NAUSEA, 04/11/18) Home Medications Acetaminophen 500 Mg Tablet, 1,000 MG PO TID, (Reported) Atorvastatin Calcium 40 Mg Tablet, 40 MG PO HS, (Reported) C,E,Zinc,Copper 11/Hpyuy2z/Lut 1 Each Capsule, 1 CAP PO DAILY, (Reported) Donepezil HCl 5 Mg Tablet, 5 MG PO HS, (Reported) Ferrous Sulfate 325 Mg Tablet, 325 MG PO TID Prescribed by: KIRA JONES on 01/14/19 1101 Fish Oil/Dha/Epa 1 Each Capsule, 1,200 MG PO BID, (Reported) Furosemide 40 Mg Tablet, 40 MG PO DAILY, (Reported) Magnesium Oxide 250 Mg Tablet, 250 MG PO TID, (Reported) Metformin HCl 500 Mg Tablet, 500 MG PO BID, (Reported) Metoprolol Succinate 25 Mg Tab.er.24h, 25 MG PO DAILY, (Reported) Multivitamin with Minerals 1 Each Tablet, 1 TAB PO DAILY, (Reported) Nystatin 15 Gm Powder, TOP Q12H, (Reported) Omeprazole 40 Mg Capsule.dr, 40 MG PO DAILY, (Reported) Telmisartan 80 Mg Tablet, 80 MG PO DAILY, (Reported) HOLD FOR SBP <100 Tolterodine Tartrate 2 Mg Tablet, 2 MG PO DAILY, (Reported) Patient Home Medication List Home Medication List Reviewed: Yes Review of Systems Review of Systems Constitutional: see HPI; No chills, No malaise; weakness EENTM: see HPI Respiratory: no symptoms reported Cardiovascular: no symptoms reported Genitourinary: no symptoms reported Musculoskeletal: no symptoms reported Skin: no symptoms reported Psychiatric/Neurological: Headache Hematologic/Lymphatic: No Symptoms Reported Immunological/Allergic: no symptoms reported Past Wymijim-Nznviq-Ecntdq Hx Patient Social History 2nd Hand Smoke Exposure: No Recent Hopitalizations: No Immunizations Up To Date Tetanus Booster (TDap): More than 5yrs PED Vaccines UTD: No Date of Pneumonia Vaccine: Aug 07, 2016 Date of Influenza Vaccine: Jun 09, 2016 Seasonal Allergies Seasonal Allergies: No Past Medical History Surgeries: Yes Cardiac, Joint Replacement, Orthopedic, Pacemaker Respiratory: Yes Pulmonary Embolism Currently Using CPAP: No Currently Using BIPAP: No Cardiac: Yes (VENA CAVA FILTER; PACEMAKER; LINC DEVICE IMPLANTED; UPPER EXTREMITY DVT) Atrial Fibrillation, Chronic Edema/Swelling, Deep Vein Thrombosis, High Cholesterol, Hypertension, Irregular Heartbeat, Syncope Neurological: Yes (EXPRESSIVE APHASIA) Dementia, Stroke Reproductive Disorders: No Female Reproductive Disorders: Denies Sexually Transmitted Disease: No HIV/AIDS: No Genitourinary: Yes Bladder Infection Gastrointestinal: Yes Gastroesophageal Reflux Musculoskeletal: Yes (BONE SPUR REMOVAL LEFT FOOT; CHRONIC GENERALIZED PAIN) Arthritis, Chronic Back Pain Endocrine: Yes (DM TYPE II) Diabetes, Non-Insulin dep HEENT: No Cancer: No Psychosocial: No Integumentary: No Blood Disorders: Yes (anemia) Adverse Reaction/Blood Tranf: No Family Medical History Myocardial infarction No Pertinent Family Hx Physical Exam Vital Signs Vital Signs - First Documented 06/06/19 11:35 Temp 34.9 Pulse 71 Resp 12 B/P (MAP) 185/118 (140) Pulse Ox 94 O2 Delivery Room Air Capillary Refill : Height, Weight, BMI Height: 5'5.00" Weight: 281lbs. 0.0oz. 127.472840kv; 54.9 BMI Method:Stated General Appearance: No Apparent Distress, WD/WN, Obese HEENT: PERRL/EOMI, TMs Normal Neck: Full Range of Motion, Normal Inspection Respiratory: No Accessory Muscle Use, No Respiratory Distress Cardiovascular: Regular Rate, Rhythm, Normal Peripheral Pulses Gastrointestinal: Normal Bowel Sounds, Non Tender, Soft Extremity: Normal Capillary Refill, Normal Inspection Neurologic/Psychiatric: Alert, Oriented x3 Skin: Normal Color, Warm/Dry Focused Exam Lactate Level 06/06/19 11:35: Lactic Acid Level 1.48 Lactic Acid Level Laboratory Tests Test 06/06/19 11:35 Lactic Acid Level 1.48 MMOL/L (0.50-2.00) Progress/Results/Core Measures Suspected Sepsis SIRS Temperature: Pulse: Respiratory Rate: Laboratory Tests 06/06/19 11:35: White Blood Count 3.9L Blood Pressure / Mean: 06/06/19 11:35: Lactic Acid Level 1.48 Laboratory Tests 06/06/19 11:35: Creatinine 0.92, INR Comment 1.6H, Platelet Count 76L, Total Bilirubin 1.2H Results/Orders Lab Results Laboratory Tests Test 06/06/19 11:35 06/06/19 11:50 Range/Units White Blood Count 3.9 L 4.3-11.0 10^3/uL Red Blood Count 3.26 L 4.35-5.85 10^6/uL Hemoglobin 10.5 L 11.5-16.0 G/DL Hematocrit 33 L 35-52 % Mean Corpuscular Volume 100 H 80-99 FL Mean Corpuscular Hemoglobin 32 25-34 PG Mean Corpuscular Hemoglobin Concent 32 32-36 G/DL Red Cell Distribution Width 15.2 H 10.0-14.5 % Platelet Count 76 L 130-400 10^3/uL Mean Platelet Volume 10.1 7.4-10.4 FL Neutrophils (%) (Auto) 67 42-75 % Lymphocytes (%) (Auto) 21 12-44 % Monocytes (%) (Auto) 10 0-12 % Eosinophils (%) (Auto) 3 0-10 % Basophils (%) (Auto) 0 0-10 % Neutrophils # (Auto) 2.6 1.8-7.8 X 10^3 Lymphocytes # (Auto) 0.8 L 1.0-4.0 X 10^3 Monocytes # (Auto) 0.4 0.0-1.0 X 10^3 Eosinophils # (Auto) 0.1 0.0-0.3 10^3/uL Basophils # (Auto) 0.0 0.0-0.1 10^3/uL Prothrombin Time 20.0 H 12.2-14.7 SEC INR Comment 1.6 H 0.8-1.4 Activated Partial Thromboplast Time 50 H 24-35 SEC Sodium Level 142 135-145 MMOL/L Potassium Level 4.5 3.6-5.0 MMOL/L Chloride Level 105 98-107 MMOL/L Carbon Dioxide Level 29 21-32 MMOL/L Anion Gap 8 5-14 MMOL/L Blood Urea Nitrogen 18 7-18 MG/DL Creatinine 0.92 0.60-1.30 MG/DL Estimat Glomerular Filtration Rate 59 BUN/Creatinine Ratio 20 Glucose Level 90 70-105 MG/DL Lactic Acid Level 1.48 0.50-2.00 MMOL/L Calcium Level 9.5 8.5-10.1 MG/DL Corrected Calcium 10.1 8.5-10.1 MG/DL Total Bilirubin 1.2 H 0.1-1.0 MG/DL Aspartate Amino Transf (AST/SGOT) 29 5-34 U/L Alanine Aminotransferase (ALT/SGPT) 23 0-55 U/L Alkaline Phosphatase 107 40-136 U/L Troponin I < 0.028 <0.028 NG/ML B-Type Natriuretic Peptide 754.9 H <100.0 PG/ML Total Protein 6.8 6.4-8.2 GM/DL Albumin 3.3 3.2-4.5 GM/DL Thyroid Stimulating Hormone (TSH) 1.95 0.35-4.94 UIU/ML Free Thyroxine 1.03 0.70-1.48 NG/DL Urine Color YELLOW Urine Clarity CLEAR Urine pH 8 5-9 Urine Specific [place] 1.010 L 1.016-1.022 Urine Protein NEGATIVE NEGATIVE Urine Glucose (UA) NEGATIVE NEGATIVE Urine Ketones NEGATIVE NEGATIVE Urine Nitrite NEGATIVE NEGATIVE Urine Bilirubin NEGATIVE NEGATIVE Urine Urobilinogen NORMAL NORMAL MG/DL Urine Leukocyte Esterase NEGATIVE NEGATIVE Urine RBC (Auto) NEGATIVE NEGATIVE Urine RBC 0-2 /HPF Urine WBC NONE /HPF Urine Squamous Epithelial Cells RARE /HPF Urine Crystals PRESENT H /LPF Urine Amorphous Sediment RARE GEORGI PHOSPHATE H /LPF Urine Bacteria TRACE /HPF Urine Casts NONE /LPF Urine Mucus NEGATIVE /LPF Urine Culture Indicated NO My Orders Orders - TWYLA VALVERDE APRN Cbc With Automated Diff (06/06/19 11:35) Comprehensive Metabolic Panel (06/06/19 11:35) Blood Culture (06/06/19 11:35) Sputum Culture (06/06/19 11:35) Urinalysis (06/06/19 11:35) Urine Culture (06/06/19 11:35) Protime With Inr (06/06/19 11:35) Partial Thromboplastin Time (06/06/19 11:35) Chest 1 View, Ap/Pa Only (06/06/19 11:35) Ed Iv/Invasive Line Start (06/06/19 11:35) Ekg Tracing (06/06/19 11:35) Troponin I (06/06/19 11:35) Vital Signs Adult Sepsis Patie Q15M (06/06/19 11:35) Remove Rings In Anticipation O (06/06/19 11:35) Lactic Acid Analyzer (06/06/19 11:35) Thyroid Stimulating Hormone (06/06/19 11:35) Ct Head Wo (06/06/19 11:35) Free T4 (Free Thyroxine) (06/06/19 11:35) Clonidine Tablet (Catapres Tablet) (06/06/19 11:45) BNP (06/06/19 11:55) Ketorolac Injection (Toradol Injection) (06/06/19 13:00) Medications Given in ED Current Medications Medications Dose Ordered Sig/Georgie Route Start Time Stop Time Status Last Admin Dose Admin Clonidine HCl 0.1 mg ONCE ONCE PO 06/06/19 11:45 06/06/19 11:46 DC 06/06/19 12:30 0.1 MG Ketorolac Tromethamine 15 mg ONCE ONCE IVP 06/06/19 13:00 06/06/19 13:01 DC 06/06/19 12:55 15 MG Vital Signs/I&O 06/06/19 11:35 Temp 34.9 Pulse 71 Resp 12 B/P (MAP) 185/118 (140) Pulse Ox 94 O2 Delivery Room Air Capillary Refill : Departure Communication (Admissions) Discussed the case with Dr. Cortez, he'll see the patient in follow-up on Thursday of this week as I'm unable to find pathology on labs that is acute. Her pancytopenia is chronic since December of this year Impression Primary Impression: chronic pancytopenia Additional Impression: General weakness Disposition: HOME, SELF-CARE Condition: Stable Departure-Patient Inst. Decision time for Depature: 13:32 Referrals: ADEN CORTEZ DO (PCP/Family) Primary Care Physician Patient Instructions: Generalized Weakness Add. Discharge Instructions: 1. The plan is to call Dr. CORTEZ, I spoke with him in the emergency room and he would like to see you on Thursday for recheck. TWYLA VALVERDE APRN Jun 06, 2019 11:34
[2019-06-06] MEDS ORDERED: cloNIDine 0.1 MG (CATAPRES) TAB PO ONE (11:45)
[2019-06-06 11:55] LABS: BASOPHILS % (AUTO) 0 % (0-10); EOSINOPHILS # (AUTO) 0.1 10^3/uL (0.0-0.3); EOSINOPHILS % (AUTO) 3 % (0-10); HEMATOCRIT 33 % (35-52); HEMOGLOBIN 10.5 G/DL (11.5-16.0); LYMPHOCYTES # (AUTO) 0.8 X 10^3 (1.0-4.0); LYMPHOCYTES % (AUTO) 21 % (12-44); MEAN CORPUSCULAR HEMOGLOBIN 32 PG (25-34); MEAN CORPUSCULAR HGB CONC 32 G/DL (32-36); MEAN CORPUSCULAR VOLUME 100 FL (80-99); MEAN PLATELET VOLUME 10.1 FL (7.4-10.4); MONOCYTES # (AUTO) 0.4 X 10^3 (0.0-1.0); MONOCYTES % (AUTO) 10 % (0-12); NEUTROPHILS # (AUTO) 2.6 X 10^3 (1.8-7.8); NEUTROPHILS % (AUTO) 67 % (42-75); PLATELET COUNT 76 10^3/uL (130-400); RED CELL DISTRIBUTION WIDTH 15.2 % (10.0-14.5); WHITE BLOOD COUNT 3.9 10^3/uL (4.3-11.0)
[2019-06-06 12:03] LABS: BILIRUBIN,URINE NEGATIVE (NEGATIVE); CLARITY,URINE CLEAR; COLOR,URINE YELLOW; GLUCOSE, URINE (UA) NEGATIVE (NEGATIVE); KETONES,URINE NEGATIVE (NEGATIVE); LEUKOCYTE ESTERASE ,URINE NEGATIVE (NEGATIVE); NITRITE,URINE NEGATIVE (NEGATIVE); PH,URINE 8 (5-9); PROTEIN,URINE NEGATIVE (NEGATIVE); UROBILINOGEN,URINE NORMAL (NORMAL)
[2019-06-06 12:13] LABS: ALANINE AMINOTRANSFERASE 23 U/L (0-55); ALBUMIN 3.3 GM/DL (3.2-4.5); ALKALINE PHOSPHATASE 107 U/L (40-136); BILIRUBIN,TOTAL 1.2 MG/DL (0.1-1.0); BUN/CREATININE RATIO 20; CALCIUM 9.5 MG/DL (8.5-10.1); CARBON DIOXIDE 29 MMOL/L (21-32); CHLORIDE 105 MMOL/L (98-107); CREATININE SERUM 0.92 MG/DL (0.60-1.30); GFR ESTIMATED 59; GLUCOSE 90 MG/DL (70-105); POTASSIUM 4.5 MMOL/L (3.6-5.0); SODIUM 142 MMOL/L (135-145); TOTAL PROTEIN 6.8 GM/DL (6.4-8.2)
[2019-06-06 12:15] LABS: INR 1.6 (0.8-1.4)
[2019-06-06 12:22] LABS: AMORPHOUS SEDIMENT,UR RARE AMOR PHOSPHATE /LPF; BACTERIA,URINE TRACE /HPF; RBC,URINE 0-2 /HPF; SQUAMOUS EPITHELIAL CELL,UR RARE /HPF
[2019-06-06 12:35] LABS: FREE T4 (FREE THYROXINE) 1.03 NG/DL (0.70-1.48)
[2019-06-06] MEDS ORDERED: KETOROLAC 30 MG/ML VIAL IVP ONE (13:00)
--- NOTE | 2019-06-06 13:03 | Diagnostic Imaging Report ---
Indication: Weakness and headache Portable chest 12:52 PM Right subclavian central line tip projects over the SVC. There is a dual chamber pacemaker. Heart size and pulmonary vascularity are normal. Lungs are clear. There are no effusions or pneumothoraces. IMPRESSION: No acute abnormalities in the chest. Dictated by: Dictated on workstation # [id number]
--- NOTE | 2019-06-06 13:09 | Diagnostic Imaging Report ---
PROCEDURE: CT head without contrast. TECHNIQUE: Multiple contiguous axial images were obtained through the brain without the use of intravenous contrast. Auto Exposure Controls were utilized during the CT exam to meet ALARA standards for radiation dose reduction. INDICATION: Altered mental status. Correlation is made with prior head CT from 01/08/2019. Ventricular size and sulcal pattern remains stable. Moderate periventricular hypodensity is again seen consistent with chronic microvascular ischemia. There is no midline shift. No acute intra-axial or extra-axial hemorrhage is detected. The cisterns are patent. Visualized paranasal sinuses are clear. IMPRESSION: Changes of chronic microvascular ischemia. No acute intracranial process is detected. Dictated by: Dictated on workstation # [id number]
[2019-06-06 14:20] VITALS: BP 168/74
== END 2019-06-06 14:20 | disposition home or self-care (01) ==
LOC: EDUNIT# 11:09 → ER 11:11
DX: D61.818 Other pancytopenia (principal); I10 Essential (primary) hypertension; E11.9 Type 2 diabetes mellitus without complications; E78.00 Pure hypercholesterolemia, unspecified; I48.91 Unspecified atrial fibrillation; F03.90 Unspecified dementia, unspecified severity, without behavioral disturbance, psychotic disturbance, mood disturbance, and anxiety; D64.9 Anemia, unspecified; K21.9 Gastro-esophageal reflux disease without esophagitis; Z86.73 Personal history of transient ischemic attack (TIA), and cerebral infarction without residual deficits; Z86.718 Personal history of other venous thrombosis and embolism; Z79.84 Long term (current) use of oral hypoglycemic drugs; Z95.0 Presence of cardiac pacemaker; Z88.0 Allergy status to penicillin; Z88.5 Allergy status to narcotic agent; Z88.6 Allergy status to analgesic agent; Z82.49 Family history of ischemic heart disease and other diseases of the circulatory system
CPT/HCPCS: 36415; 51702; 70450; 71045; 80053; 81000; 83605; 83880; 84439; 84443; 84484; 85025; 85610; 85730; 87040; 87088; 93005

== ENCOUNTER → 2019-06-29 | Outpatient (CLI) | payer MEDICARE, OTHER, MEDICAID ==
[~2019-06-29] MED LIST changes: +ACET-93 PO; +APIX2.5T PO; +CLOT15CR4 TP; +LORA10TA7 PO; +MAGN400O7 PO; +MENT118G TP; -METO-387 PO; +METO50TA7 PO; +MTP25TSR PO; +MULT-975 PO; +NFVALS90T PO; +OMEP40CA27 PO; +ONDA8TAB6 PO; +SIMV20TA26 PO; -SIMV20TA3 PO; +TETR15DR49 OU; +[UNRECOGNIZED DRUG - CODE] TP
--- NOTE | 2019-06-29 13:47 | Diagnostic Imaging Report ---
PROCEDURE: US venous upper extremity left. TECHNIQUE: Multiple realtime grayscale images were obtained of left upper extremity in various projections. Additional spectral analysis and color Doppler duplex images were also obtained. INDICATION: Left upper extremity swelling. The left internal jugular vein as well as the left subclavian and axillary veins are patent. The brachial vein is patent. The basilic and cephalic vein as well as the radial and ulnar veins are patent. No thrombus is seen. There is some edema identified in the tissues about the left wrist. IMPRESSION: Subcutaneous edema at the left wrist. There is no evidence of a left upper extremity DVT. Dictated by: Dictated on workstation # [id number]
== END ==
LOC: RAD 11:51
PROVIDERS: ATTEND Family Medicine
DX: M79.89 Other specified soft tissue disorders (principal); R60.0 Localized edema

== ENCOUNTER 2019-07-31 09:05 | Inpatient (IN) | payer MEDICARE, OTHER, MEDICAID ==
[~2019-07-31] VITALS: Ht 163 cm; Wt 119.7 kg
[2019-07-31] VITALS (8 sets, daily range): BP systolic 161–176; BP diastolic 68–74
[~2019-07-31 09:05] MED LIST changes: -ACET-93 PO; -APIX2.5T PO; -CLOT15CR4 TP; -LORA10TA7 PO; -MAGN400O7 PO; -MENT118G TP; +METO-387 PO; -METO50TA7 PO; -MTP25TSR PO; -MULT-975 PO; -NFVALS90T PO; -OMEP40CA27 PO; -ONDA8TAB6 PO; -SIMV20TA26 PO; +SIMV20TA3 PO; -TETR15DR49 OU; -[UNRECOGNIZED DRUG - CODE] TP
[2019-07-31] MEDS ORDERED: NS IV 1000 ML 1,000 ML IV SCH (09:10)
[2019-07-31 09:43] LABS: BASOPHILS % (AUTO) 1 % (0-10); EOSINOPHILS # (AUTO) 0.2 10^3/uL (0.0-0.3); EOSINOPHILS % (AUTO) 5 % (0-10); HEMATOCRIT 24 % (35-52); HEMOGLOBIN 7.7 G/DL (11.5-16.0); LYMPHOCYTES # (AUTO) 1.2 X 10^3 (1.0-4.0); LYMPHOCYTES % (AUTO) 34 % (12-44); MEAN CORPUSCULAR HEMOGLOBIN 34 PG (25-34); MEAN CORPUSCULAR HGB CONC 32 G/DL (32-36); MEAN CORPUSCULAR VOLUME 106 FL (80-99); MEAN PLATELET VOLUME 10.5 FL (7.4-10.4); MONOCYTES # (AUTO) 0.4 X 10^3 (0.0-1.0); MONOCYTES % (AUTO) 11 % (0-12); NEUTROPHILS # (AUTO) 1.7 X 10^3 (1.8-7.8); NEUTROPHILS % (AUTO) 49 % (42-75); PLATELET COUNT 93 10^3/uL (130-400); RED CELL DISTRIBUTION WIDTH 14.6 % (10.0-14.5); WHITE BLOOD COUNT 3.5 10^3/uL (4.3-11.0)
[2019-07-31 09:55] LABS: BILIRUBIN,URINE NEGATIVE (NEGATIVE); CLARITY,URINE CLEAR; COLOR,URINE YELLOW; GLUCOSE, URINE (UA) NEGATIVE (NEGATIVE); INR 1.5 (0.8-1.4); KETONES,URINE NEGATIVE (NEGATIVE); LEUKOCYTE ESTERASE ,URINE NEGATIVE (NEGATIVE); NITRITE,URINE NEGATIVE (NEGATIVE); PH,URINE 6.5 (5-9); PROTEIN,URINE NEGATIVE (NEGATIVE); PROTHROMBIN TIME PATIENT 18.3 SEC (12.2-14.7)
--- NOTE | 2019-07-31 10:00 | Diagnostic Imaging Report ---
INDICATION: Altered mental status and lethargy Upright portable AP view of the chest is obtained. Comparison is made to the study of 06/06/2019. There is mild cardiomegaly. Pulmonary vascularity is within normal limits. There is no pneumothorax. Left anterior chest wall cardiac pacemaker, left shoulder prosthesis and right anterior chest wall port remains in stable position. There is no pneumothorax or evidence of significant pleural fluid. IMPRESSION: Mild cardiomegaly. Dictated by: Dictated on workstation # [id number]
[2019-07-31 10:02] LABS: BACTERIA,URINE NEGATIVE /HPF; SQUAMOUS EPITHELIAL CELL,UR 0-2 /HPF
[2019-07-31 10:03] LABS: ALANINE AMINOTRANSFERASE 22 U/L (0-55); ALBUMIN 2.7 GM/DL (3.2-4.5); ALKALINE PHOSPHATASE 78 U/L (40-136); BILIRUBIN,TOTAL 0.6 MG/DL (0.1-1.0); BUN/CREATININE RATIO 19; CALCIUM 8.7 MG/DL (8.5-10.1); CARBON DIOXIDE 26 MMOL/L (21-32); CHLORIDE 105 MMOL/L (98-107); CREATININE SERUM 1.87 MG/DL (0.60-1.30); GFR ESTIMATED 26; GLUCOSE 122 MG/DL (70-105); POTASSIUM 5.2 MMOL/L (3.6-5.0); SODIUM 141 MMOL/L (135-145); TOTAL PROTEIN 5.5 GM/DL (6.4-8.2)
--- NOTE | 2019-07-31 10:25 | Diagnostic Imaging Report ---
PROCEDURE: CT head, face, and cervical spine without contrast. TECHNIQUE: Multiple contiguous axial images were obtained through the head, neck, and facial bones without the use of intravenous contrast. Sagittal and coronal reformations through the cervical spine and facial bones were also performed. Auto Exposure Controls were utilized during the CT exam to meet ALARA standards for radiation dose reduction. INDICATION: Fall with lethargy, altered mental status and facial contusion. CT HEAD: Comparison is made to study of 06/06/2019. Ventricles and sulci remain diffusely prominent. There has been mild worsening of low density within the deep white matter left frontal lobe and extending into left basal ganglia which may represent area of ischemia related to nonacute infarct. No hemorrhage is identified. Calvarium is intact. The visualized paranasal sinuses are clear. IMPRESSION: Senescent findings in the brain. May be nonacute evolving ischemia in the left frontal region and basal ganglia. If further evaluation is warranted, consideration could be given to MRI. Maxillofacial CT: Globes are intact without evidence of retrobulbar hematoma. No acute fracture seen. Temporomandibular joints are intact. There is no paranasal sinus air-fluid level. IMPRESSION: No CT evidence of acute maxillofacial abnormality. CT cervical spine: CT images of the cervical spine are obtained with sagittal and coronal reformatted images produced. Cervical spinal curvature and alignment are unremarkable. Vertebral body heights and disc spaces are maintained. There is no evidence of an acute fracture. No significant paraspinous hematoma is identified. IMPRESSION: No CT evidence of acute cervical spinal abnormality. Dictated by: Dictated on workstation # [id number]
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
[2019-07-31] MEDS ORDERED: NS IV 500 ML 500 ML ONE (12:41)
[2019-07-31] MEDS: NS IV 1000 ML 1,000 ML IV SCH ×2 (16:10→23:12)
[2019-07-31 23:22] LABS: HEMOGLOBIN 8.6 G/DL (11.5-16.0)
[2019-08-01 00:15] VITALS: BP 102/53
[2019-08-01 03:25] VITALS: BP 145/64
[2019-08-01] MEDS: NS IV 1000 ML 1,000 ML IV SCH ×2 (06:26→16:38)
[2019-08-01 06:39] LABS: BASOPHILS % (AUTO) 0 % (0-10); EOSINOPHILS # (AUTO) 0.2 10^3/uL (0.0-0.3); EOSINOPHILS % (AUTO) 5 % (0-10); HEMATOCRIT 26 % (35-52); HEMOGLOBIN 8.6 G/DL (11.5-16.0); LYMPHOCYTES % (AUTO) 32 % (12-44); MEAN CORPUSCULAR HEMOGLOBIN 33 PG (25-34); MEAN CORPUSCULAR HGB CONC 33 G/DL (32-36); MEAN CORPUSCULAR VOLUME 100 FL (80-99); MEAN PLATELET VOLUME 10.3 FL (7.4-10.4); MONOCYTES # (AUTO) 0.3 X 10^3 (0.0-1.0); MONOCYTES % (AUTO) 9 % (0-12); NEUTROPHILS # (AUTO) 1.7 X 10^3 (1.8-7.8); NEUTROPHILS % (AUTO) 54 % (42-75); PLATELET COUNT 76 10^3/uL (130-400); RED CELL DISTRIBUTION WIDTH 16.9 % (10.0-14.5); WHITE BLOOD COUNT 3.2 10^3/uL (4.3-11.0)
[2019-08-01 06:57] LABS: ALBUMIN 2.4 GM/DL (3.2-4.5); BILIRUBIN,TOTAL 1.1 MG/DL (0.1-1.0); CALCIUM 8.3 MG/DL (8.5-10.1); CREATININE SERUM 1.64 MG/DL (0.60-1.30); POTASSIUM 5.4 MMOL/L (3.6-5.0); TOTAL PROTEIN 4.9 GM/DL (6.4-8.2)
--- NOTE | 2019-08-01 08:05 | Diagnostic Imaging Report ---
INDICATION: Anemia COMPARISON: 07/31/2019 TECHNIQUE: Single radiograph of the chest dated 08/01/2019 FINDINGS: Pacer device is again identified with the battery pack overlying left heart border. Right-sided subclavian central venous catheter is in place. Left shoulder arthroplasty remains in place. The cardiac silhouette is borderline enlarged, though stable. No significant pulmonary vascular congestion. The lungs are clear of focal pulmonary opacity. No pleural effusion. No pneumothorax. No acute osseous abnormality with chronic left-sided rib fractures present. IMPRESSION: Similar examination without acute cardiopulmonary abnormality. Dictated by: Dictated on workstation # [id number]
--- NOTE | 2019-08-01 08:10 | History & Physical ---
History of Present Illness History of Present Illness Reason for visit/HPI Patient is a resident of a skilled nursing.. Patient had lethargy, weakness, confusion and slurred speech. Patient evaluated in emergency room. Patient having anemia and pancytopenia. Patient this morning does have some confusion and talking slowly. Patient admitted Date of Admission Jul 31, 2019 at 11:00 Time Seen by a Provider: 08:05 I consulted on this patient on 08/01/19 08:04 Attending Physician Ba Lee DO Admitting Physician Ba Lee DO Consult Allergies and Home Medications Allergies Coded Allergies: Penicillins (Unverified Allergy, Unknown, 04/11/18) codeine (Unverified Allergy, Unknown, 04/11/18) aspirin (Verified Adverse Reaction, Unknown, NAUSEA, 04/11/18) Home Medications Acetaminophen 500 Mg Tablet, 1,000 MG PO TID, (Reported) Atorvastatin Calcium 40 Mg Tablet, 40 MG PO HS, (Reported) C,E,Zinc,Copper 11/Agsjy9v/Lut 1 Each Capsule, 1 CAP PO DAILY, (Reported) Donepezil HCl 5 Mg Tablet, 5 MG PO HS, (Reported) Ferrous Sulfate 325 Mg Tablet, 325 MG PO TID Prescribed by: KIRA JONES on 01/14/19 1101 Fish Oil/Dha/Epa 1 Each Capsule, 1,200 MG PO BID, (Reported) Furosemide 40 Mg Tablet, 40 MG PO DAILY, (Reported) Magnesium Oxide 250 Mg Tablet, 250 MG PO TID, (Reported) Metformin HCl 500 Mg Tablet, 500 MG PO BID, (Reported) Metoprolol Succinate 25 Mg Tab.er.24h, 25 MG PO DAILY, (Reported) Multivitamin with Minerals 1 Each Tablet, 1 TAB PO DAILY, (Reported) Nystatin 15 Gm Powder, TOP Q12H, (Reported) Omeprazole 40 Mg Capsule.dr, 40 MG PO DAILY, (Reported) Telmisartan 80 Mg Tablet, 80 MG PO DAILY, (Reported) HOLD FOR SBP <100 Tolterodine Tartrate 2 Mg Tablet, 2 MG PO DAILY, (Reported) Patient Home Medication List Home Medication List Reviewed: No Past Llglosf-Hdqwly-Ehkefz Hx Past Med/Social Hx: Reviewed Nursing Past Med/Soc Hx Patient Social History Marrital Status: Employed/Student: retired Alcohol Use: Denies Use Recreational Drug Use: No Smoking Status: Never a Smoker 2nd Hand Smoke Exposure: No Recent Foreign Travel: No Contact w/other who traveled: No Recent Hopitalizations: No Recent Infectious Disease Expo: No Immunizations Up To Date Tetanus Booster (TDap): More than 5yrs Pediatric: No Date of Pneumonia Vaccine: Aug 07, 2016 Date of Influenza Vaccine: May 31, 2019 Seasonal Allergies Seasonal Allergies: No Past Medical History Surgeries: Cardiac, Joint Replacement, Orthopedic, Pacemaker Currently Using CPAP: No Currently Using BIPAP: No Cardiac: Atrial Fibrillation, Chronic Edema/Swelling, Deep Vein Thrombosis, High Cholesterol, Hypertension, Irregular Heartbeat, Syncope Neurological: Dementia, Stroke Reproductive: No Sexually Transmitted Disease: No HIV/AIDS: No Female Reproductive Disorders: Denies Genitourinary: Bladder Infection Gastrointestinal: Gastroesophageal Reflux Musculoskeletal: Arthritis, Chronic Back Pain Endocrine: Diabetes, Non-Insulin dep History of Blood Disorders: Yes (anemia) Adverse Reaction to Blood Estrada: No Family History Myocardial infarction No Pertinent Family Hx Review of Systems Constitutional: malaise, weakness EENTM: no symptoms reported Respiratory: no symptoms reported Cardiovascular: edema Gastrointestinal: no symptoms reported Genitourinary: no symptoms reported Physical Exam Vital Signs Vital Signs - First Documented Capillary Refill : Less Than 3 Seconds Height, Weight, BMI Height: 5'5.00" Weight: 281lbs. 0.0oz. 127.184853gc; 56.45 BMI Method:Stated General Appearance: No Apparent Distress, WD/WN, Obese Eyes: Bilateral Eye Normal Inspection HEENT: Normal ENT Inspection Neck: Full Range of Motion, Normal Inspection Respiratory: Lungs Clear, No Accessory Muscle Use, No Respiratory Distress Cardiovascular: Regular Rate, Rhythm, No Murmur Gastrointestinal: Non Tender, Soft Assessment/Plan Assessment and Plan Severe anemia. Pancytopenia. Acute renal failure. History of atrial fibrillation with pacemaker. Dementia. Coronary artery disease. Diabetes Admission Diagnosis Admission Status: Inpatient Order (span 2 midnights) Reason for Inpatient Admission: Pancytopenia. Confusion. Acute renal insufficiency. Anemia. Dementia Clinical Quality Measures DVT/VTE Risk/Contraindication: Risk Factor Score Per Nursin RFS Level Per Nursing on Admit: 4+=Very High BA LEE DO Aug 01, 2019 08:10 POS
[2019-08-01 08:30] VITALS: BP 117/56
[2019-08-01] MEDS ORDERED: TETR15DR49 OU (10:43)
[2019-08-01] MEDS ORDERED: LORA10TA7 PO (10:43)
[2019-08-01] MEDS ORDERED: METO-370 PO (10:43)
[2019-08-01] MEDS ORDERED: [UNRECOGNIZED DRUG - CODE] TP (10:43)
[2019-08-01] MEDS ORDERED: CLOT15CR4 TP (10:43)
[2019-08-01] MEDS ORDERED: C,E,1CAP PO (10:49)
[2019-08-01] MEDS ORDERED: ONDA8TAB6 PO (10:49)
[2019-08-01] MEDS ORDERED: MENT118G TP (10:49)
[2019-08-01] MEDS ORDERED: MAGN400O7 PO (10:49)
[2019-08-01] MEDS ORDERED: APIX2.5T PO (10:49)
[2019-08-01] MEDS ORDERED: NFVALS90T PO (10:49)
[2019-08-01] MEDS ORDERED: ACET-93 PO (10:51)
--- NOTE | 2019-08-01 10:52 | NUR ---
ENTERED THE MED REC USING THE TRANSFER/DISCHARGE REPORT FROM ELIJAH CRUZ
[2019-08-01 12:55] VITALS: BP 126/58
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
[2019-08-01 15:50] VITALS: BP 146/67
[2019-08-01 20:00] VITALS: BP 131/61
[2019-08-02] VITALS: BP 129/58
[2019-08-02] MEDS: NS IV 1000 ML 1,000 ML IV SCH (02:35)
[2019-08-02 04:00] VITALS: BP 128/59
[2019-08-02 04:17] LABS: BASOPHILS % (AUTO) 0 % (0-10); EOSINOPHILS # (AUTO) 0.2 10^3/uL (0.0-0.3); EOSINOPHILS % (AUTO) 5 % (0-10); HEMATOCRIT 25 % (35-52); HEMOGLOBIN 8.2 G/DL (11.5-16.0); LYMPHOCYTES # (AUTO) 0.9 X 10^3 (1.0-4.0); LYMPHOCYTES % (AUTO) 28 % (12-44); MEAN CORPUSCULAR HEMOGLOBIN 33 PG (25-34); MEAN CORPUSCULAR HGB CONC 32 G/DL (32-36); MEAN CORPUSCULAR VOLUME 102 FL (80-99); MEAN PLATELET VOLUME 10.5 FL (7.4-10.4); MONOCYTES # (AUTO) 0.3 X 10^3 (0.0-1.0); MONOCYTES % (AUTO) 10 % (0-12); NEUTROPHILS # (AUTO) 1.9 X 10^3 (1.8-7.8); NEUTROPHILS % (AUTO) 58 % (42-75); PLATELET COUNT 66 10^3/uL (130-400); RED CELL DISTRIBUTION WIDTH 15.8 % (10.0-14.5); WHITE BLOOD COUNT 3.4 10^3/uL (4.3-11.0)
[2019-08-02 04:38] LABS: ALBUMIN 2.3 GM/DL (3.2-4.5); CREATININE SERUM 1.43 MG/DL (0.60-1.30); POTASSIUM 5.2 MMOL/L (3.6-5.0); TOTAL PROTEIN 4.6 GM/DL (6.4-8.2)
--- NOTE | 2019-08-02 08:12 | Progress Note ---
Subjective Time Seen by a Provider: 08:09 Subjective/Events-last exam Patient alert today. Renal insufficiency improving today. Platelet count going down a 66,000. Pancytopenia. Patient wants to talk over bone marrow procedure with daughter. Patient wants to go home today To follow-up with hematology and myself Focused Exam Lactate Level 07/31/19 09:20: Lactic Acid Level 2.34*H 07/31/19 11:10: Lactic Acid Level 2.12*H 08/01/19 08:20: Lactic Acid Level 1.45 Objective Exam Vital Signs Date Time Temp Pulse Resp B/P (MAP) Pulse Ox O2 Delivery O2 Flow Rate FiO2 08/02/19 07:00 59 08/02/19 04:00 36.1 62 20 128/59 (82) 95 Room Air 08/02/19 01:00 63 08/02/19 00:00 36.0 65 16 129/58 (81) 98 Room Air 08/01/19 20:00 35.9 62 18 131/61 (84) 99 Room Air 08/01/19 19:40 Room Air 08/01/19 19:00 60 08/01/19 15:50 36.3 65 18 146/67 (93) 100 Room Air 08/01/19 13:00 69 08/01/19 12:55 36.3 60 18 126/58 (80) 97 Room Air 08/01/19 09:46 Room Air 08/01/19 08:30 36.1 60 18 117/56 (76) 95 Room Air I & O 08/02/19 07:00 Intake Total 1880 ml Output Total 750 ml Balance 1130 ml Capillary Refill : Less Than 3 Seconds General Appearance: No Apparent Distress, WD/WN HEENT: Normal ENT Inspection Neck: Full Range of Motion, Normal Inspection Respiratory: Lungs Clear, No Accessory Muscle Use, No Respiratory Distress Cardiovascular: Regular Rate, Rhythm, No Murmur Gastrointestinal: non tender, soft Results Lab Laboratory Tests 08/02/19 03:59 Laboratory Tests 08/01/19 08:20: Lactic Acid Level 1.45, B-Type Natriuretic Peptide 346.0H 08/02/19 03:59: White Blood Count 3.4L, Red Blood Count 2.50L, Hemoglobin 8.2L, Hematocrit 25L, Mean Corpuscular Volume 102H, Mean Corpuscular Hemoglobin 33, Mean Corpuscular Hemoglobin Concent 32, Red Cell Distribution Width 15.8H, Platelet Count 66L, Mean Platelet Volume 10.5H, Neutrophils (%) (Auto) 58, Lymphocytes (%) (Auto) 28, Monocytes (%) (Auto) 10, Eosinophils (%) (Auto) 5, Basophils (%) (Auto) 0, Neutrophils # (Auto) 1.9, Lymphocytes # (Auto) 0.9L, Monocytes # (Auto) 0.3, Eosinophils # (Auto) 0.2, Basophils # (Auto) 0.0, Sodium Level 141, Potassium Level 5.2H, Chloride Level 111H, Carbon Dioxide Level 22, Anion Gap 8, Blood Urea Nitrogen 29H, Creatinine 1.43H, Estimat Glomerular Filtration Rate 35, BUN/Creatinine Ratio 20, Glucose Level 79, Calcium Level 8.0L, Corrected Calcium 9.4, Total Bilirubin 1.0, Aspartate Amino Transf (AST/SGOT) 21, Alanine Aminotransferase (ALT/SGPT) 18, Alkaline Phosphatase 71, Total Protein 4.6L, Albumin 2.3L Microbiology 07/31/19 Blood Culture - Preliminary, Resulted No growth 07/31/19 Influenza Types A,B Antigen (JASIEL) - Final, Complete 07/31/19 Urine Culture - Final, Complete NO GROWTH Assessment/Plan Assessment/Plan Assess & Plan/Chief Complaint Pancytopenia. Diabetes. Acute mental status change. Hypertension. Hyperlipidemia. Recent head injury 2. Dementia. Clinical Quality Measures Admission Status Admission Dx Severe anemia. Pancytopenia. Acute renal failure. History of atrial fibrillation with pacemaker. Dementia. Coronary artery disease. Diabetes DVT/VTE Risk/Contraindication: Risk Factor Score Per Nursin RFS Level Per Nursing on Admit: 4+=Very High Contraindications-Pharm: Other *list below* ADEN LEE DO Aug 02, 2019 08:12 POS
[2019-08-02 08:30] VITALS: BP 118/56
[2019-08-02] MEDS ORDERED: MULT-975 PO ×2 (09:34→10:05)
--- NOTE | 2019-08-02 10:15 | NUR ---
Report given to GEOVANNA Randle at [facility].
[2019-08-02 12:00] VITALS: BP 129/61
[2019-08-02 13:29] VITALS: BP 129/61
--- NOTE | 2019-08-02 17:05 | NUR ---
Arrangements completed for pt to return to [facility]. pt very agreeable to discharge and will be followed by Dr. Cortez and at our [facility]. Pt's daughter was notified and agreeable. All physician discharge orders History and Physical and list of medications and recent physician progress notes were given to [facility] staff.
--- NOTE | 2019-08-02 19:05 | Discharge Summary ---
Diagnosis/Chief Complaint Date of Admission Jul 31, 2019 at 11:00 Date of Discharge Aug 02, 2019 at 13:29 Discharge Date: Aug 02, 2019 Discharge Time: 19:03 Discharge Diagnosis Severe anemia. Acute renal failure. Diabetes. Dementia. Acute mental status change. Weakness. Pancytopenia. Atrial fibrillation. Head and facial contusion. Coronary artery disease. Hyperlipidemia. Hypertension Reason Hospital Visit Patient is a resident of a alf.. Patient had lethargy, weakness, confusion and slurred speech. Patient evaluated in emergency room. Patient having anemia and pancytopenia. Patient this morning does have some confusion and talking slowly. Patient admitted Discharge Summary Consultations Hematology Discharge Physical Examination Allergies: Coded Allergies: Penicillins (Unverified Allergy, Unknown, 04/11/18) codeine (Unverified Allergy, Unknown, 04/11/18) aspirin (Verified Adverse Reaction, Unknown, NAUSEA, 04/11/18) Vitals & I&Os Vital Signs Date Time Temp Pulse Resp B/P (MAP) Pulse Ox O2 Delivery O2 Flow Rate FiO2 08/02/19 13:29 36.3 60 18 129/61 98 Room Air Hospital Course Patient became more alert. Patient wanted to go home. Patient transferred back to alf Labs (last 24 hrs) Laboratory Tests 07/31/19 09:20: White Blood Count 3.5L, Red Blood Count 2.29L, Hemoglobin 7.7L, Hematocrit 24L, Mean Corpuscular Volume 106H, Mean Corpuscular Hemoglobin 34, Mean Corpuscular Hemoglobin Concent 32, Red Cell Distribution Width 14.6H, Platelet Count 93L, Mean Platelet Volume 10.5H, Neutrophils (%) (Auto) 49, Lymphocytes (%) (Auto) 34, Monocytes (%) (Auto) 11, Eosinophils (%) (Auto) 5, Basophils (%) (Auto) 1, Neutrophils # (Auto) 1.7L, Lymphocytes # (Auto) 1.2, Monocytes # (Auto) 0.4, Eosinophils # (Auto) 0.2, Basophils # (Auto) 0.0, Prothrombin Time 18.3H, INR Comment 1.5H, Activated Partial Thromboplast Time 45H, Urine Color YELLOW, Urine Clarity CLEAR, Urine pH 6.5, Urine Specific [place] 1.015L, Urine Protein NEGATIVE, Urine Glucose (UA) NEGATIVE, Urine Ketones NEGATIVE, Urine Nitrite NEGATIVE, Urine Bilirubin NEGATIVE, Urine Urobilinogen 1.0, Urine Leukocyte Esterase NEGATIVE, Urine RBC (Auto) NEGATIVE, Urine RBC NONE, Urine WBC NONE, Urine Squamous Epithelial Cells 0-2, Urine Crystals NONE, Urine Bacteria NEGATIVE, Urine Casts NONE, Urine Mucus NEGATIVE, Urine Culture Indicated NO, Sodium Level 141, Potassium Level 5.2H, Chloride Level 105, Carbon Dioxide Level 26, Anion Gap 10, Blood Urea Nitrogen 35H, Creatinine 1.87H, Estimat Glomerular Filtration Rate 26, BUN/Creatinine Ratio 19, Glucose Level 122H, Lactic Acid Level 2.34*H, Calcium Level 8.7, Corrected Calcium 9.7, Total Bilirubin 0.6, Aspartate Amino Transf (AST/SGOT) 24, Alanine Aminotransferase (ALT/SGPT) 22, Alkaline Phosphatase 78, Troponin I < 0.028, Total Protein 5.5L, Albumin 2.7L 07/31/19 11:10: Lactic Acid Level 2.12*H 07/31/19 23:10: Hemoglobin 8.6L, Hematocrit 27L 08/01/19 06:30: White Blood Count 3.2L, Red Blood Count 2.64L, Hemoglobin 8.6L, Hematocrit 26L, Mean Corpuscular Volume 100H, Mean Corpuscular Hemoglobin 33, Mean Corpuscular Hemoglobin Concent 33, Red Cell Distribution Width 16.9H, Platelet Count 76L, Mean Platelet Volume 10.3, Neutrophils (%) (Auto) 54, Lymphocytes (%) (Auto) 32, Monocytes (%) (Auto) 9, Eosinophils (%) (Auto) 5, Basophils (%) (Auto) 0, Neutrophils # (Auto) 1.7L, Lymphocytes # (Auto) 1.0, Monocytes # (Auto) 0.3, Eosinophils # (Auto) 0.2, Basophils # (Auto) 0.0, Sodium Level 140, Potassium Level 5.4H, Chloride Level 110H, Carbon Dioxide Level 24, Anion Gap 6, Blood Urea Nitrogen 31H, Creatinine 1.64H, Estimat Glomerular Filtration Rate 30, BUN/Creatinine Ratio 19, Glucose Level 76, Calcium Level 8.3L, Corrected Calcium 9.6, Total Bilirubin 1.1H, Aspartate Amino Transf (AST/SGOT) 24, Alanine Aminotransferase (ALT/SGPT) 20, Alkaline Phosphatase 70, Total Protein 4.9L, Albumin 2.4L 08/01/19 08:20: Lactic Acid Level 1.45, B-Type Natriuretic Peptide 346.0H 08/02/19 03:59: White Blood Count 3.4L, Red Blood Count 2.50L, Hemoglobin 8.2L, Hematocrit 25L, Mean Corpuscular Volume 102H, Mean Corpuscular Hemoglobin 33, Mean Corpuscular Hemoglobin Concent 32, Red Cell Distribution Width 15.8H, Platelet Count 66L, Mean Platelet Volume 10.5H, Neutrophils (%) (Auto) 58, Lymphocytes (%) (Auto) 28, Monocytes (%) (Auto) 10, Eosinophils (%) (Auto) 5, Basophils (%) (Auto) 0, Neutrophils # (Auto) 1.9, Lymphocytes # (Auto) 0.9L, Monocytes # (Auto) 0.3, Eosinophils # (Auto) 0.2, Basophils # (Auto) 0.0, Sodium Level 141, Potassium Level 5.2H, Chloride Level 111H, Carbon Dioxide Level 22, Anion Gap 8, Blood Urea Nitrogen 29H, Creatinine 1.43H, Estimat Glomerular Filtration Rate 35, BUN/Creatinine Ratio 20, Glucose Level 79, Calcium Level 8.0L, Corrected Calcium 9.4, Total Bilirubin 1.0, Aspartate Amino Transf (AST/SGOT) 21, Alanine Aminotransferase (ALT/SGPT) 18, Alkaline Phosphatase 71, Total Protein 4.6L, Albumin 2.3L Microbiology 07/31/19 Blood Culture - Preliminary, Resulted No growth 07/31/19 Influenza Types A,B Antigen (JASIEL) - Final, Complete 07/31/19 Urine Culture - Final, Complete NO GROWTH Laboratory Tests 07/31/19 09:20 07/31/19 23:10 08/01/19 06:30 08/02/19 03:59 Pending Labs Microbiology Date/Time Source Procedure Growth Status 07/31/19 11:26 Peripheral Lt Ac Blood Culture - Preliminary No growth Resulted 07/31/19 09:20 Port Not Otherwise Specified Blood Culture - Preliminary No growth Resulted 07/31/19 09:20 Nasopharynx Influenza Types A,B Antigen (JASIEL) - Final Complete 07/31/19 09:20 Urine Straight Cath, In/Out Urine Culture - Final NO GROWTH Complete Laboratory Tests 07/31/19 09:20: White Blood Count 3.5, Red Blood Count 2.29, Hemoglobin 7.7, Hematocrit 24, Mean Corpuscular Volume 106, Mean Corpuscular Hemoglobin 34, Mean Corpuscular Hemoglobin Concent 32, Red Cell Distribution Width 14.6, Platelet Count 93, Mean Platelet Volume 10.5, Neutrophils (%) (Auto) 49, Lymphocytes (%) (Auto) 34, Monocytes (%) (Auto) 11, Eosinophils (%) (Auto) 5, Basophils (%) (Auto) 1, Neutrophils # (Auto) 1.7, Lymphocytes # (Auto) 1.2, Monocytes # (Auto) 0.4, Eosinophils # (Auto) 0.2, Basophils # (Auto) 0.0, Prothrombin Time 18.3, INR Comment 1.5, Activated Partial Thromboplast Time 45, Urine Color YELLOW, Urine Clarity CLEAR, Urine pH 6.5, Urine Specific [place] 1.015, Urine Protein NEGATIVE, Urine Glucose (UA) NEGATIVE, Urine Ketones NEGATIVE, Urine Nitrite NEGATIVE, Urine Bilirubin NEGATIVE, Urine Urobilinogen 1.0, Urine Leukocyte Esterase NEGATIVE, Urine RBC (Auto) NEGATIVE, Urine RBC NONE, Urine WBC NONE, Urine Squamous Epithelial Cells 0-2, Urine Crystals NONE, Urine Bacteria NEGATIVE, Urine Casts NONE, Urine Mucus NEGATIVE, Urine Culture Indicated NO, Sodium Level 141, Potassium Level 5.2, Chloride Level 105, Carbon Dioxide Level 26, Anion Gap 10, Blood Urea Nitrogen 35, Creatinine 1.87, Estimat Glomerular Filtration Rate 26, BUN/Creatinine Ratio 19, Glucose Level 122, Lactic Acid Level 2.34, Calcium Level 8.7, Corrected Calcium 9.7, Total Bilirubin 0.6, Aspartate Amino Transf (AST/SGOT) 24, Alanine Aminotransferase (ALT/SGPT) 22, Alkaline Phosphatase 78, Troponin I < 0.028, Total Protein 5.5, Albumin 2.7 07/31/19 11:10: Lactic Acid Level 2.12 07/31/19 23:10: Hemoglobin 8.6, Hematocrit 27 08/01/19 06:30: White Blood Count 3.2, Red Blood Count 2.64, Hemoglobin 8.6, Hematocrit 26, Mean Corpuscular Volume 100, Mean Corpuscular Hemoglobin 33, Mean Corpuscular Hemoglobin Concent 33, Red Cell Distribution Width 16.9, Platelet Count 76, Mean Platelet Volume 10.3, Neutrophils (%) (Auto) 54, Lymphocytes (%) (Auto) 32, Monocytes (%) (Auto) 9, Eosinophils (%) (Auto) 5, Basophils (%) (Auto) 0, Neutrophils # (Auto) 1.7, Lymphocytes # (Auto) 1.0, Monocytes # (Auto) 0.3, Eosinophils # (Auto) 0.2, Basophils # (Auto) 0.0, Sodium Level 140, Potassium Level 5.4, Chloride Level 110, Carbon Dioxide Level 24, Anion Gap 6, Blood Urea Nitrogen 31, Creatinine 1.64, Estimat Glomerular Filtration Rate 30, BUN/Creatinine Ratio 19, Glucose Level 76, Calcium Level 8.3, Corrected Calcium 9.6, Total Bilirubin 1.1, Aspartate Amino Transf (AST/SGOT) 24, Alanine Aminotransferase (ALT/SGPT) 20, Alkaline Phosphatase 70, Total Protein 4.9, Albumin 2.4 08/01/19 08:20: Lactic Acid Level 1.45, B-Type Natriuretic Peptide 346.0 08/02/19 03:59: White Blood Count 3.4, Red Blood Count 2.50, Hemoglobin 8.2, Hematocrit 25, Mean Corpuscular Volume 102, Mean Corpuscular Hemoglobin 33, Mean Corpuscular Hemoglobin Concent 32, Red Cell Distribution Width 15.8, Platelet Count 66, Mean Platelet Volume 10.5, Neutrophils (%) (Auto) 58, Lymphocytes (%) (Auto) 28, Monocytes (%) (Auto) 10, Eosinophils (%) (Auto) 5, Basophils (%) (Auto) 0, Neutrophils # (Auto) 1.9, Lymphocytes # (Auto) 0.9, Monocytes # (Auto) 0.3, E osinophils # (Auto) 0.2, Basophils # (Auto) 0.0, Sodium Level 141, Potassium Level 5.2, Chloride Level 111, Carbon Dioxide Level 22, Anion Gap 8, Blood Urea Nitrogen 29, Creatinine 1.43, Estimat Glomerular Filtration Rate 35, BUN/Creatinine Ratio 20, Glucose Level 79, Calcium Level 8.0, Corrected Calcium 9.4, Total Bilirubin 1.0, Aspartate Amino Transf (AST/SGOT) 21, Alanine Aminotransferase (ALT/SGPT) 18, Alkaline Phosphatase 71, Total Protein 4.6, Albumin 2.3 Discharge Home Medications: Active Scripts Active Multi-Day Plus Iron Tablet (Multivitamin/Iron/Folic Acid) 1 Each Tablet 1 Each PO DAILY 30 Days Reported Acetaminophen 500 Mg Tablet 500 Mg PO Q12H PRN Biofreeze (Menthol) 118 Ml Gel..ml. 1 Applic TP Q6H PRN Ocuvite Adult 50 Plus Softgel (C,E,Zinc,Copper 11/Wjpph5w/Lut) 1 Each Capsule 1 Each PO DAILY Zofran (Ondansetron HCl) 8 Mg Tablet 8 Mg PO Q8H PRN Milk of Magnesia (Magnesium Hydroxide) 400 Mg/5 Ml Oral.susp 30 Mg PO Q8H PRN Diovan (Valsartan) 320 Mg Tab 320 Mg PO DAILY HOLD FOR SBP LESS THEN 100 Tetrahydrozoline HCl 15 Ml Drops 2 Drops OU Q6H PRN Moisturel (Dimethicone) 226 Gm Lotion 1 Applic TP BID APPLY TO BUTTTOCKS/SACRUM AREA Lotrisone Cream (Clotrimazole/Betamethasone Dip) 15 Gm Cream..g. 1 Applic TP BID APPLY TO ABDOMINAL FOLDS Loratadine 10 Mg Tablet 10 Mg PO DAILY Metoprolol Succinate 50 Mg Tab.er.24h 50 Mg PO DAILY HOLD FOR SBP LESS THAN 100 Tylenol Extra Strength (Acetaminophen) 500 Mg Tablet 500 Mg PO TID Magnesium (Magnesium Oxide) 250 Mg Tablet 250 Mg PO TID Furosemide 40 Mg Tablet 40 Mg PO DAILY Donepezil HCl 5 Mg Tablet 5 Mg PO HS Atorvastatin Calcium 40 Mg Tablet 40 Mg PO HS Omeprazole 40 Mg Capsule.dr 40 Mg PO DAILY Metformin HCl 500 Mg Tablet 500 Mg PO BID Fish Oil 1,200 mg Fish Oil (Fish Oil/Dha/Epa) 1 Each Capsule 1,200 Mg PO BID Instructions to patient/family Please see electronic discharge instructions given to patient. Clinical Quality Measures DVT/VTE Risk/Contraindication: Risk Factor Score Per Nursin RFS Level Per Nursing on Admit: 4+=Very High Contraindications-Pharm: Other *list below* ADEN LEE DO Aug 02, 2019 19:05 POS
== END 2019-08-02 13:29 | DRG 809 ==
LOC: ER 09:05 → EDUNIT# 09:05 → 4TH 11:00
PROVIDERS: ADMIT Family Medicine; ATTEND Family Medicine
DX: D61.818 Other pancytopenia (principal); N17.9 Acute kidney failure, unspecified; I48.91 Unspecified atrial fibrillation; F03.90 Unspecified dementia, unspecified severity, without behavioral disturbance, psychotic disturbance, mood disturbance, and anxiety; I25.10 Atherosclerotic heart disease of native coronary artery without angina pectoris; E11.9 Type 2 diabetes mellitus without complications; E66.01 Morbid (severe) obesity due to excess calories; Z68.42 Body mass index [BMI] 45.0-49.9, adult; E78.00 Pure hypercholesterolemia, unspecified; I10 Essential (primary) hypertension; I69.320 Aphasia following cerebral infarction; K21.9 Gastro-esophageal reflux disease without esophagitis; M19.91 Primary osteoarthritis, unspecified site; S00.83XA Contusion of other part of head, initial encounter; W22.8XXA Striking against or struck by other objects, initial encounter; E86.0 Dehydration; I49.5 Sick sinus syndrome; E78.5 Hyperlipidemia, unspecified; K76.0 Fatty (change of) liver, not elsewhere classified; R16.1 Splenomegaly, not elsewhere classified; D46.9 Myelodysplastic syndrome, unspecified; Z95.0 Presence of cardiac pacemaker; Z96.652 Presence of left artificial knee joint; Z79.84 Long term (current) use of oral hypoglycemic drugs; Z79.01 Long term (current) use of anticoagulants; Z99.3 Dependence on wheelchair; Z86.711 Personal history of pulmonary embolism; Z86.718 Personal history of other venous thrombosis and embolism; Z88.5 Allergy status to narcotic agent; Z88.0 Allergy status to penicillin
CPT/HCPCS: 36415; 70450; 70486; 71045; 72125; 80053; 81000; 83605; 83880; 84484; 85014; 85018; 85025; 85610; 85730; 86850; 86900; 86901; 86920; 87040; 87088; 87804; 93005; 93041; 96360

== ENCOUNTER 2019-10-04 12:56 | Outpatient (RCR) | payer MEDICARE, OTHER, MEDICAID ==
[2019-08-08 13:42] LABS: BASOPHILS % (AUTO) 0 % (0-10); EOSINOPHILS # (AUTO) 0.1 10^3/uL (0.0-0.3); EOSINOPHILS % (AUTO) 3 % (0-10); HEMATOCRIT 28 % (35-52); HEMOGLOBIN 8.9 G/DL (11.5-16.0); LYMPHOCYTES # (AUTO) 0.8 X 10^3 (1.0-4.0); LYMPHOCYTES % (AUTO) 29 % (12-44); MEAN CORPUSCULAR HEMOGLOBIN 32 PG (25-34); MEAN CORPUSCULAR HGB CONC 32 G/DL (32-36); MEAN CORPUSCULAR VOLUME 101 FL (80-99); MEAN PLATELET VOLUME 9.4 FL (7.4-10.4); MONOCYTES # (AUTO) 0.3 X 10^3 (0.0-1.0); MONOCYTES % (AUTO) 10 % (0-12); NEUTROPHILS # (AUTO) 1.5 X 10^3 (1.8-7.8); NEUTROPHILS % (AUTO) 58 % (42-75); PLATELET COUNT 83 10^3/uL (130-400); RED CELL DISTRIBUTION WIDTH 14.9 % (10.0-14.5); WHITE BLOOD COUNT 2.6 10^3/uL (4.3-11.0)
[~2019-10-04 12:56] MED LIST changes: +ACET-93 PO; +APIX2.5T PO; +CLOT15CR4 TP; +LORA10TA7 PO; +MAGN400O7 PO; +MENT118G TP; -METO-387 PO; +METO50TA7 PO; +MTP25TSR PO; +MULT-975 PO; +NFVALS90T PO; +OMEP40CA27 PO; +ONDA8TAB6 PO; +SIMV20TA26 PO; -SIMV20TA3 PO; +TETR15DR49 OU; +[UNRECOGNIZED DRUG - CODE] TP
[2019-10-04 13:30] LABS: BASOPHILS % (AUTO) 0 % (0-10); EOSINOPHILS # (AUTO) 0.1 10^3/uL (0.0-0.3); EOSINOPHILS % (AUTO) 3 % (0-10); HEMATOCRIT 27 % (35-52); HEMOGLOBIN 8.8 G/DL (11.5-16.0); LYMPHOCYTES % (AUTO) 26 % (12-44); MEAN CORPUSCULAR HEMOGLOBIN 32 PG (25-34); MEAN CORPUSCULAR HGB CONC 32 G/DL (32-36); MEAN CORPUSCULAR VOLUME 99 FL (80-99); MEAN PLATELET VOLUME 9.2 FL (7.4-10.4); MONOCYTES # (AUTO) 0.5 X 10^3 (0.0-1.0); MONOCYTES % (AUTO) 12 % (0-12); NEUTROPHILS # (AUTO) 2.4 X 10^3 (1.8-7.8); NEUTROPHILS % (AUTO) 59 % (42-75); PLATELET COUNT 105 10^3/uL (130-400); RED CELL DISTRIBUTION WIDTH 13.9 % (10.0-14.5)
[2019-10-04 13:58] LABS: ALBUMIN 2.5 GM/DL (3.2-4.5); BILIRUBIN,TOTAL 0.7 MG/DL (0.1-1.0); CALCIUM 8.5 MG/DL (8.5-10.1); CREATININE SERUM 0.98 MG/DL (0.60-1.30); POTASSIUM 4.3 MMOL/L (3.6-5.0)
[2019-10-26] MEDS ORDERED: HYPR10GE4 OD (09:08)
[2019-10-26] MEDS ORDERED: MULT-298 PO (09:08)
[2019-10-26] MEDS ORDERED: PROP1.5D OD (09:08)
[2019-10-26] MEDS ORDERED: LORA10TA7 PO (09:08)
[2019-10-26] MEDS ORDERED: GUAI120013 PO (09:08)
[2019-10-26] MEDS ORDERED: MICO90PO TP (10:05)
== END 2019-10-29 | disposition home or self-care (01) ==
LOC: ONC 12:56
PROVIDERS: ATTEND Internal Medicine Hematology & Oncology
DX: D61.818 Other pancytopenia (principal); I10 Essential (primary) hypertension; I25.10 Atherosclerotic heart disease of native coronary artery without angina pectoris; E11.9 Type 2 diabetes mellitus without complications; E78.5 Hyperlipidemia, unspecified; K21.9 Gastro-esophageal reflux disease without esophagitis; Z95.0 Presence of cardiac pacemaker; Z79.01 Long term (current) use of anticoagulants; Z79.84 Long term (current) use of oral hypoglycemic drugs
CPT/HCPCS: 36591; 80053; 82728; 83540; 85025

== ENCOUNTER 2019-10-24 11:01 | Inpatient (IN) | payer MEDICARE, OTHER, MEDICAID ==
[~2019-10-24] VITALS: Ht 165.6 cm; Wt 124.6 kg
[2019-10-24 12:10] LABS: BILIRUBIN,URINE NEGATIVE (NEGATIVE); CLARITY,URINE CLEAR; COLOR,URINE YELLOW; GLUCOSE, URINE (UA) NEGATIVE (NEGATIVE); KETONES,URINE NEGATIVE (NEGATIVE); LEUKOCYTE ESTERASE ,URINE NEGATIVE (NEGATIVE); NITRITE,URINE NEGATIVE (NEGATIVE); PROTEIN,URINE NEGATIVE (NEGATIVE)
--- NOTE | 2019-10-24 12:10 | ED General ---
General Chief Complaint: Neurological Problems Stated Complaint: AMS Nursing Triage Note: SENT FROM [facility] WITH DECREASE IN LOC Nursing Sepsis Screen: No Definite Risk Source of Information: Long-Term Records, Old Records (ALL PMH IS FROM OLD RECORDS AND RETIREMENT PAPERS) Exam Limitations: Other (PT IS NOT TALKING OR FOLLOWING COMMANDS OR ANSWERING QUESTIONS) History of Present Illness Date Seen by Provider: Oct 24, 2019 Time Seen by Provider: 11:45 Initial Comments PT ARRIVES VIA WHEELCHAIR VAN FROM [facility]--REQUIRES FULL ASSIST WITH TRANSFER, AND HAS EARNEST LIFT PAD FROM RETIREMENT PT WITH DECREASED RESPONSIVENESS WHEN STAFF CHECKED ON HER THIS AM RETIREMENT REPORT WAS THAT "SHE IS NOT RESPONDING TO ANYTHING EXCEPT VOICE" AND RETIREMENT NURSE "HAD TO FEED HER THIS MORNING" BECAUSE SHE WAS NOT RESPONDING. RETIREMENT NURSE REPORTED THAT "SHE DOES THIS EVERY ONCE IN AWHILE" ONLY OTHER INFORMATION FROM RETIREMENT STAFF IS THAT SHE HAS EDEMA ALL OVER BLOOD GLUCOSE 86 BP 120/74 PULSE 73 O2 SAT 96% ON ROOM AIR TEMP 97.3 ALL PER RETIREMENT REPORT. PER RETIREMENT RECORDS, PT HAS HISTORY OF DEMENTIA, CVA WITH EXPRESSIVE A PHASIA, COGNITIVE COMMUNICATION DEFICIT, ESSENTIALLY IMMOBILE AND REQUIRES FULL CARE PT IS A FULL CODE, PER RETIREMENT PAPERS. PCP: DR. LEE Allergies and Home Medications Allergies Coded Allergies: Penicillins (Unverified Allergy, Unknown, 04/11/18) codeine (Unverified Allergy, Unknown, 04/11/18) aspirin (Verified Adverse Reaction, Unknown, NAUSEA, 04/11/18) Home Medications Acetaminophen 500 Mg Tablet, 500 MG PO TID, (Reported) Acetaminophen 500 Mg Tablet, 500 MG PO Q12H PRN for PAIN-MILD (1-4), (Reported) Atorvastatin Calcium 40 Mg Tablet, 40 MG PO HS, (Reported) C,E,Zinc,Copper 11/Hfmjk8a/Lut 1 Each Capsule, 1 EACH PO DAILY, (Reported) Clotrimazole/Betamethasone Dip 15 Gm Cream..g., 1 APPLIC TP BID, (Reported) APPLY TO ABDOMINAL FOLDS Dimethicone 226 Gm Lotion, 1 APPLIC TP BID, (Reported) APPLY TO BUTTTOCKS/SACRUM AREA Donepezil HCl 5 Mg Tablet, 5 MG PO HS, (Reported) Fish Oil/Dha/Epa 1 Each Capsule, 1,200 MG PO BID, (Reported) Furosemide 40 Mg Tablet, 40 MG PO DAILY, (Reported) Loratadine 10 Mg Tablet, 10 MG PO DAILY, (Reported) Magnesium Hydroxide 400 Mg/5 Ml Oral.susp, 30 MG PO Q8H PRN for CONSTIPATION-7TH LINE, (Reported) Magnesium Oxide 250 Mg Tablet, 250 MG PO TID, (Reported) Menthol 118 Ml Gel..ml., 1 APPLIC TP Q6H PRN for PAIN-BREAKTHROUGH, (Reported) Metformin HCl 500 Mg Tablet, 500 MG PO BID, (Reported) Metoprolol Succinate 50 Mg Tab.er.24h, 50 MG PO DAILY, (Reported) HOLD FOR SBP LESS THAN 100 Multivitamin/Iron/Folic Acid 1 Each Tablet, 1 EACH PO DAILY Prescribed by: MARINO CHANCE on 08/02/19 1005 Omeprazole 40 Mg Capsule.dr, 40 MG PO DAILY, (Reported) Ondansetron HCl 8 Mg Tablet, 8 MG PO Q8H PRN for NAUSEA/VOMITING-1ST LINE, (Reported) Tetrahydrozoline HCl 15 Ml Drops, 2 DROPS OU Q6H PRN for EYE IRRITATION, (Reported) Valsartan 320 Mg Tab, 320 MG PO DAILY, (Reported) HOLD FOR SBP LESS THEN 100 Patient Home Medication List Home Medication List Reviewed: Yes Review of Systems Review of Systems Constitutional: see HPI Psychiatric/Neurological: See HPI Past Hpgxzia-Ldbsqi-Cqlmlf Hx Past Med/Social Hx: Reviewed and Corrections made Patient Social History Smoking Status: Unknown if Ever Smoked 2nd Hand Smoke Exposure: No Recent Foreign Travel: No Contact w/Someone Who Travel: No Recent Infectious Disease Expo: No Recent Hopitalizations: No Immunizations Up To Date Tetanus Booster (TDap): More than 5yrs PED Vaccines UTD: No Date of Pneumonia Vaccine: Aug 07, 2016 Date of Influenza Vaccine: May 31, 2019 Seasonal Allergies Seasonal Allergies: No Past Medical History Surgeries: Yes (PORT RIGHT CHEST) Cardiac, Joint Replacement, Orthopedic, Pacemaker, Vascular Surgery Respiratory: Yes Pulmonary Embolism Currently Using CPAP: No Currently Using BIPAP: No Cardiac: Yes (VENA CAVA FILTER;PACEMAKER /SICK SINUS SYNDROME;LINQ DEVICE;DVT UPPER EXTRE) Atrial Fibrillation, Chronic Edema/Swelling, Deep Vein Thrombosis, High Cholesterol, Hypertension, Irregular Heartbeat, Syncope Neurological: Yes (EXPRESSIVE APHASIA; COGNITIVE COMMUNICATION DEFICIT) Dementia, Stroke Reproductive Disorders: No Female 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 ) Diabetes, Non-Insulin dep HEENT: Yes (KERATITIS RIGHT EYE) Cancer: No Psychosocial: No Integumentary: Yes (INTERTRIGO) Blood Disorders: Yes (ANEMIA/PANCYTOPENIA) Adverse Reaction/Blood Tranf: No Family Medical History Myocardial infarction No Pertinent Family Hx PSH: -PORT RIGHT CHEST -PACEMAKER -LINQ DEVICE IMPLANTED -LEFT KNEE REPLACEMENT -RIGHT SHOULDER SURGERY -VENA CAVA FILTER -BONE SPUR REMOVED FROM LEFT FOOT Physical Exam Vital Signs Vital Signs - First Documented 10/24/19 10/24/19 11:40 16:34 Temp 35.6 Pulse 61 Resp 18 B/P (MAP) 145/103 (117) Pulse Ox 96 O2 Delivery Room Air FiO2 21 Capillary Refill : Less Than 3 Seconds Height, Weight, BMI Height: 5'5.00" Weight: 281lbs. 0.0oz. 127.451349vu; 46.00 BMI Method:Stated General Appearance: Obese (MORBIDLY OBESE), Other (CONSTANT MOANING, KEEPS EYES CLOSED, DOES NOT FOLLOW COMMANDS. NOT TALKING) Respiratory: Normal Breath Sounds, No Accessory Muscle Use, No Respiratory Distress Cardiovascular: Regular Rate, Rhythm, No Murmur Gastrointestinal: Soft Extremity: Pedal Edema (SIGNIFICANT EDEMA TO ARMS AND LEGS--DIFFICULT TO DETERMINE THE DEGREE OF EDEMA DUE TO BODY HABITUS. ) Neurologic/Psychiatric: Other (KEEPS EYES CLOSED, MOANING CONSTANTLY. NO EFFORT TO MOVE ANY EXTREMITIES OR ANY PART OF BODY) Skin: Normal Color, Warm/Dry Focused Exam Lactate Level 10/24/19 11:50: Lactic Acid Level 2.49*H 10/24/19 14:12: Lactic Acid Level 1.72 10/25/19 03:50: Lactic Acid Level 0.96 Lactic Acid Level Progress/Results/Core Measures Suspected Sepsis Recent Fever Within 48 Hours: No Infection Criteria Present: None New/Unexplained Altered Menta: Yes Sepsis Screen: No Definite Risk SIRS Temperature: Pulse: 61 Respiratory Rate: 18 Laboratory Tests 10/24/19 11:50: White Blood Count 4.7 10/25/19 03:50: White Blood Count 4.1L 10/26/19 04:52: White Blood Count 4.8 Blood Pressure 145 /103 Mean: 117 10/24/19 11:50: Lactic Acid Level 2.49*H 10/24/19 14:12: Lactic Acid Level 1.72 10/25/19 03:50: Lactic Acid Level 0.96 Laboratory Tests 10/24/19 11:50: Creatinine 1.07, INR Comment 1.2, Platelet Count 98L, Total Bilirubin 0.9 10/25/19 03:50: Creatinine 0.83, Platelet Count 85L, Total Bilirubin 0.7 10/26/19 04:52: Creatinine 0.78, Platelet Count 98L, Total Bilirubin 0.9 Results/Orders Lab Results Laboratory Tests Test 10/24/19 11:50 10/24/19 14:12 10/24/19 17:32 10/24/19 21:09 Range/Units White Blood Count 4.7 4.3-11.0 10^3/uL Red Blood Count 2.91 L 4.35-5.85 10^6/uL Hemoglobin 9.5 L 11.5-16.0 G/DL Hematocrit 29 L 35-52 % Mean Corpuscular Volume 101 H 80-99 FL Mean Corpuscular Hemoglobin 33 25-34 PG Mean Corpuscular Hemoglobin Concent 32 32-36 G/DL Red Cell Distribution Width 15.6 H 10.0-14.5 % Platelet Count 98 L 130-400 10^3/uL Mean Platelet Volume 9.3 7.4-10.4 FL Neutrophils (%) (Auto) 71 42-75 % Lymphocytes (%) (Auto) 16 12-44 % Monocytes (%) (Auto) 10 0-12 % Eosinophils (%) (Auto) 3 0-10 % Basophils (%) (Auto) 0 0-10 % Neutrophils # (Auto) 3.3 1.8-7.8 X 10^3 Lymphocytes # (Auto) 0.8 L 1.0-4.0 X 10^3 Monocytes # (Auto) 0.5 0.0-1.0 X 10^3 Eosinophils # (Auto) 0.1 0.0-0.3 10^3/uL Basophils # (Auto) 0.0 0.0-0.1 10^3/uL Prothrombin Time 15.4 H 12.2-14.7 SEC INR Comment 1.2 0.8-1.4 Activated Partial Thromboplast Time 44 H 24-35 SEC Urine Color YELLOW Urine Clarity CLEAR Urine pH 6.0 5-9 Urine Specific Hurley 1.020 1.016-1.022 Urine Protein NEGATIVE NEGATIVE Urine Glucose (UA) NEGATIVE NEGATIVE Urine Ketones NEGATIVE NEGATIVE Urine Nitrite NEGATIVE NEGATIVE Urine Bilirubin NEGATIVE NEGATIVE Urine Urobilinogen 0.2 < = 1.0 MG/DL Urine Leukocyte Esterase NEGATIVE NEGATIVE Urine RBC (Auto) NEGATIVE NEGATIVE Urine RBC NONE /HPF Urine WBC NONE /HPF Urine Squamous Epithelial Cells RARE /HPF Urine Crystals NONE /LPF Urine Bacteria NEGATIVE /HPF Urine Casts NONE /LPF Urine Mucus NEGATIVE /LPF Urine Culture Indicated NO Sodium Level 137 135-145 MMOL/L Potassium Level 4.7 3.6-5.0 MMOL/L Chloride Level 100 98-107 MMOL/L Carbon Dioxide Level 29 21-32 MMOL/L Anion Gap 8 5-14 MMOL/L Blood Urea Nitrogen 19 H 7-18 MG/DL Creatinine 1.07 0.60-1.30 MG/DL Estimat Glomerular Filtration Rate 49 BUN/Creatinine Ratio 18 Glucose Level 136 H 70-105 MG/DL Lactic Acid Level 2.49 *H 1.72 0.50-2.00 MMOL/L Calcium Level 9.2 8.5-10.1 MG/DL Corrected Calcium 10.2 H 8.5-10.1 MG/DL Magnesium Level 1.6 1.6-2.4 MG/DL Total Bilirubin 0.9 0.1-1.0 MG/DL Aspartate Amino Transf (AST/SGOT) 31 5-34 U/L Alanine Aminotransferase (ALT/SGPT) 32 0-55 U/L Alkaline Phosphatase 96 40-136 U/L Total Creatine Kinase 59 29-168 U/L Creatine Kinase MB 1.9 <6.6 NG/ML Myoglobin 145.4 H 10.0-92.0 NG/ML Troponin I < 0.028 <0.028 NG/ML B-Type Natriuretic Peptide 319.9 H <100.0 PG/ML Total Protein 5.8 L 6.4-8.2 GM/DL Albumin 2.8 L 3.2-4.5 GM/DL Amylase Level 65 25-125 U/L Lipase 49 8-78 U/L TSH [place] Testing 2.01 0.35-4.94 UIU/ML Glucometer 120 H 186 H 70-110 MG/DL Test 10/25/19 00:14 10/25/19 02:46 10/25/19 03:50 10/25/19 05:14 Range/Units Glucometer 162 H 152 H 70-110 MG/DL Blood Gas Puncture Site RIGHT RADIAL Blood Gas Patient Temperature 36.7 Arterial Blood pH 7.41 7.37-7.43 Arterial Blood Partial Pressure CO2 45 35-45 MMHG Arterial Blood Partial Pressure O2 91 79-93 MMHG Arterial Blood HCO3 29 H 23-27 MMOL/L Arterial Blood Total CO2 29.9 21.0-31.0 MMOL/L Arterial Blood Oxygen Saturation 98 94-100 % Arterial Blood Base Excess 4.0 H -2.5-2.5 MMOL/L Rafael Test YES-POS Blood Gas Ventilator Setting NO Blood Gas Inspired Oxygen ROOM AIR White Blood Count 4.1 L 4.3-11.0 10^3/uL Red Blood Count 2.74 L 4.35-5.85 10^6/uL Hemoglobin 8.9 L 11.5-16.0 G/DL Hematocrit 28 L 35-52 % Mean Corpuscular Volume 101 H 80-99 FL Mean Corpuscular Hemoglobin 33 25-34 PG Mean Corpuscular Hemoglobin Concent 32 32-36 G/DL Red Cell Distribution Width 15.2 H 10.0-14.5 % Platelet Count 85 L 130-400 10^3/uL Mean Platelet Volume 9.8 7.4-10.4 FL Neutrophils (%) (Auto) 68 42-75 % Lymphocytes (%) (Auto) 18 12-44 % Monocytes (%) (Auto) 11 0-12 % Eosinophils (%) (Auto) 3 0-10 % Basophils (%) (Auto) 0 0-10 % Neutrophils # (Auto) 2.8 1.8-7.8 X 10^3 Lymphocytes # (Auto) 0.8 L 1.0-4.0 X 10^3 Monocytes # (Auto) 0.4 0.0-1.0 X 10^3 Eosinophils # (Auto) 0.1 0.0-0.3 10^3/uL Basophils # (Auto) 0.0 0.0-0.1 10^3/uL Sodium Level 135 135-145 MMOL/L Potassium Level 4.6 3.6-5.0 MMOL/L Chloride Level 101 98-107 MMOL/L Carbon Dioxide Level 28 21-32 MMOL/L Anion Gap 6 5-14 MMOL/L Blood Urea Nitrogen 17 7-18 MG/DL Creatinine 0.83 0.60-1.30 MG/DL Estimat Glomerular Filtration Rate > 60 BUN/Creatinine Ratio 20 Glucose Level 147 H 70-105 MG/DL Lactic Acid Level 0.96 0.50-2.00 MMOL/L Calcium Level 8.7 8.5-10.1 MG/DL Corrected Calcium 9.8 8.5-10.1 MG/DL Total Bilirubin 0.7 0.1-1.0 MG/DL Aspartate Amino Transf (AST/SGOT) 29 5-34 U/L Alanine Aminotransferase (ALT/SGPT) 27 0-55 U/L Alkaline Phosphatase 86 40-136 U/L Total Protein 5.6 L 6.4-8.2 GM/DL Albumin 2.6 L 3.2-4.5 GM/DL Test 10/25/19 10:48 10/25/19 17:51 10/26/19 00:07 10/26/19 04:52 Range/Units Glucometer 124 H 120 H 132 H 70-110 MG/DL White Blood Count 4.8 4.3-11.0 10^3/uL Red Blood Count 2.86 L 4.35-5.85 10^6/uL Hemoglobin 9.2 L 11.5-16.0 G/DL Hematocrit 29 L 35-52 % Mean Corpuscular Volume 100 H 80-99 FL Mean Corpuscular Hemoglobin 32 25-34 PG Mean Corpuscular Hemoglobin Concent 32 32-36 G/DL Red Cell Distribution Width 15.8 H 10.0-14.5 % Platelet Count 98 L 130-400 10^3/uL Mean Platelet Volume 9.5 7.4-10.4 FL Sodium Level 135 135-145 MMOL/L Potassium Level 4.7 3.6-5.0 MMOL/L Chloride Level 102 98-107 MMOL/L Carbon Dioxide Level 27 21-32 MMOL/L Anion Gap 6 5-14 MMOL/L Blood Urea Nitrogen 13 7-18 MG/DL Creatinine 0.78 0.60-1.30 MG/DL Estimat Glomerular Filtration Rate > 60 BUN/Creatinine Ratio 17 Glucose Level 109 H 70-105 MG/DL Calcium Level 9.0 8.5-10.1 MG/DL Corrected Calcium 10.0 8.5-10.1 MG/DL Total Bilirubin 0.9 0.1-1.0 MG/DL Aspartate Amino Transf (AST/SGOT) 29 5-34 U/L Alanine Aminotransferase (ALT/SGPT) 25 0-55 U/L Alkaline Phosphatase 84 40-136 U/L B-Type Natriuretic Peptide 358.2 H <100.0 PG/ML Total Protein 5.8 L 6.4-8.2 GM/DL Albumin 2.7 L 3.2-4.5 GM/DL Micro Results Microbiology 10/24/19 Blood Culture - Preliminary, Resulted No growth 10/24/19 Urine Culture - Final, Complete NO GROWTH 10/24/19 Blood Culture - Preliminary, Resulted No growth 10/24/19 Influenza Types A,B Antigen (JASIEL) - Final, Complete My Orders Orders - LORA AUSTIN DO Accucheck Stat ONCE (10/24/19 11:45) Ed Iv/Invasive Line Start (10/24/19 11:45) Ekg Tracing (10/24/19 11:45) Catheter(Urinary) Insert & Ass 03,15 (10/24/19 11:45) O2 (10/24/19 11:45) Monitor-Rhythm Ecg Trace Only (10/24/19 11:45) Ct Head Wo-R/O Stroke (10/24/19 11:45) Chest 1 View, Ap/Pa Only (10/24/19 11:45) Amylase (10/24/19 11:45) BNP (10/24/19 11:45) Cbc With Automated Diff (10/24/19 11:45) Comprehensive Metabolic Panel (10/24/19 11:45) Creatine Kinase (10/24/19 11:45) Creatine Kinase Mb (10/24/19 11:45) Lactic Acid Analyzer (10/24/19 11:45) Lipase (10/24/19 11:45) Magnesium (10/24/19 11:45) Protime With Inr (10/24/19 11:45) Partial Thromboplastin Time (10/24/19 11:45) Thyroid Analyzer (10/24/19 11:45) Ua Culture If Indicated (10/24/19 11:45) Blood Culture (10/24/19 11:45) Influenza A And B Antigens (10/24/19 11:45) Myoglobin Serum (10/24/19 11:45) Troponin I (10/24/19 11:45) Ed Iv/Invasive Line Start (10/24/19 11:45) Ekg Tracing (10/24/19 11:55) Urine Culture (10/24/19 12:14) Vital Signs Adult Sepsis Patie Q15M (10/24/19 12:14) Remove Rings In Anticipation O (10/24/19 12:14) Ed Iv/Invasive Line Start (10/24/19 12:14) Ns Iv 1000 Ml (Sodium Chloride 0.9%) (10/24/19 12:14) Cefepime Injection (Maxipime Injection) (10/24/19 13:30) Water (Sterile) For Injection (Sterile W (10/24/19 13:37) Vital Signs/I&O 10/25/19 10/25/19 10/25/19 10/26/19 19:00 20:00 20:55 00:00 Temp 36.8 36.6 Pulse 62 60 63 Resp 22 16 B/P (MAP) 145/56 (85) 143/71 (95) Pulse Ox 97 96 O2 Delivery Room Air Room Air Room Air 10/26/19 10/26/19 10/26/19 10/26/19 01:00 04:25 04:53 05:00 Temp 36.2 Pulse 63 64 Resp 16 B/P (MAP) 193/66 (108) 178/90 (119) 143/72 (95) Pulse Ox 95 O2 Delivery Room Air Capillary Refill : Less Than 3 Seconds Blood Pressure Mean: 117 Progress Note : Progress Note NO DETERIORATION IN PT'S CONDITION VITALS REMAINED STABLE NO CHANGE IN MENTATION ECG Initial ECG Impression Date: Oct 24, 2019 Initial ECG Impression Time: 11:50 Initial ECG Rate: 60 Comment ATRIAL PACED EKG : EKG Time: 11:52 Rhythm: Normal Sinus (60) ECG Comparisson: Unchanged Comment ATRIAL PACED Diagnostic Imaging Comments CT HEAD--NO ACUTE PROCESS CXR--NO ACUTE PROCESS PER RADIOLOGIST REPORTS AT 1312 Reviewed: Reviewed by Me Departure Communication (Admissions) 1313--SPOKE WITH DR. LEE, HE REPORTS THAT PT HAS DONE THIS EXACT SAME THING MULTIPLE TIMES, AND IN A DAY OR TWO, RETURNS BACK TO NORMAL BASELINE. HE ADVISES MRI IN AM. WILL TREAT EMPIRICALLY WITH ROCEPHIN, DUE TO ELEVATED LACTIC ACID. Impression Primary Impression: Altered mental status Additional Impressions: HX OF CVA'S WITH EXPRESSIVE APHASIA AND COGNITIVE COMMUNICATION DEFICIT Dementia Lactic acidosis CHRONIC ANEMIA/PANCYTOPENIA CHRONIC IMMOBILITY Morbid obesity NIDDM Disposition: ADMITTED INPATIENT Condition: Stable Admissions Decision to Admit Reason: Admit from ER (General) Decision to Admit/Date: Oct 24, 2019 Time/Decision to Admit Time: 13:15 Departure-Patient Inst. Referrals: ADEN LEE DO (PCP/Family) Primary Care Physician LORA AUSTIN DO Oct 24, 2019 12:10
[2019-10-24 12:11] LABS: BASOPHILS % (AUTO) 0 % (0-10); EOSINOPHILS # (AUTO) 0.1 10^3/uL (0.0-0.3); EOSINOPHILS % (AUTO) 3 % (0-10); HEMATOCRIT 29 % (35-52); HEMOGLOBIN 9.5 G/DL (11.5-16.0); LYMPHOCYTES # (AUTO) 0.8 X 10^3 (1.0-4.0); LYMPHOCYTES % (AUTO) 16 % (12-44); MEAN CORPUSCULAR HEMOGLOBIN 33 PG (25-34); MEAN CORPUSCULAR HGB CONC 32 G/DL (32-36); MEAN CORPUSCULAR VOLUME 101 FL (80-99); MEAN PLATELET VOLUME 9.3 FL (7.4-10.4); MONOCYTES # (AUTO) 0.5 X 10^3 (0.0-1.0); MONOCYTES % (AUTO) 10 % (0-12); NEUTROPHILS # (AUTO) 3.3 X 10^3 (1.8-7.8); NEUTROPHILS % (AUTO) 71 % (42-75); PLATELET COUNT 98 10^3/uL (130-400); RED CELL DISTRIBUTION WIDTH 15.6 % (10.0-14.5); WHITE BLOOD COUNT 4.7 10^3/uL (4.3-11.0)
[2019-10-24] MEDS ORDERED: NS IV 1000 ML 1,000 ML IV SCH (12:14)
[2019-10-24 12:18] LABS: BACTERIA,URINE NEGATIVE /HPF; SQUAMOUS EPITHELIAL CELL,UR RARE /HPF
--- NOTE | 2019-10-24 12:25 | Diagnostic Imaging Report ---
INDICATION: Altered mental status. TIME OF EXAM: 12:20 p.m. COMPARISON: Correlation is made with prior chest from 08/01/2019. FINDINGS: Heart is enlarged. Cardiac pacemaker remains in place. No infiltrate or failure is seen. There is no effusion or pneumothorax. Right chest wall port has tip overlying the SVC. IMPRESSION: Stable chest. No acute features detected. Dictated by: Dictated on workstation # [id number]
[2019-10-24 12:27] LABS: INR 1.2 (0.8-1.4); PROTHROMBIN TIME PATIENT 15.4 SEC (12.2-14.7)
[2019-10-24 12:35] LABS: ALANINE AMINOTRANSFERASE 32 U/L (0-55); ALBUMIN 2.8 GM/DL (3.2-4.5); ALKALINE PHOSPHATASE 96 U/L (40-136); AMYLASE 65 U/L (25-125); BILIRUBIN,TOTAL 0.9 MG/DL (0.1-1.0); BUN/CREATININE RATIO 18; CALCIUM 9.2 MG/DL (8.5-10.1); CARBON DIOXIDE 29 MMOL/L (21-32); CHLORIDE 100 MMOL/L (98-107); CREATINE KINASE 59 U/L (29-168); CREATININE SERUM 1.07 MG/DL (0.60-1.30); GFR ESTIMATED 49; GLUCOSE 136 MG/DL (70-105); LIPASE 49 U/L (8-78); MAGNESIUM 1.6 MG/DL (1.6-2.4); POTASSIUM 4.7 MMOL/L (3.6-5.0); SODIUM 137 MMOL/L (135-145); TOTAL PROTEIN 5.8 GM/DL (6.4-8.2)
[2019-10-24 12:55] LABS: CREATINE KINASE MB 1.9 NG/ML (<6.6); TSH (THYROID ANALYZER) 2.01 UIU/ML (0.35-4.94)
--- NOTE | 2019-10-24 13:00 | Diagnostic Imaging Report ---
PROCEDURE: CT head wo r/o stroke. TECHNIQUE: Multiple contiguous axial images were obtained through the brain without the use of intravenous contrast. Auto Exposure Controls were utilized during the CT exam to meet ALARA standards for radiation dose reduction. INDICATION: Altered mental status. COMPARISON: CT head without contrast 07/31/2019. FINDINGS: No intracranial hemorrhage, mass effect, hydrocephalus or extra-axial fluid collections. Subcortical low-attenuation changes in the left frontal lobe have not convincingly changed since the prior exam. No loss of the medina-white junction to suggest acute or subacute infarct. Osseous structures are intact. The paranasal sinuses and mastoids are clear. IMPRESSION: No acute intracranial CT findings. Dictated by: Dictated on workstation # [id number]
[2019-10-24] MEDS ORDERED: CEFEPIME INJECTION 2,000 MG in WATER (STERILE) FOR INJECTION 10 ML IV ONE (13:30)
[2019-10-24] MEDS ORDERED: WATER (STERILE) FOR INJECTION 10 ML ONE (13:37)
[2019-10-24 15:06] VITALS: BP 178/96
[2019-10-24] MEDS ORDERED: ACETAMINOPHEN 650 MG SUPP (TYLENOL) PR PRN (15:45)
[2019-10-24] MEDS ORDERED: CATHETER FLUSH 10 ML SYR IV PRN (15:45)
[2019-10-24 16:00] VITALS: BP 130/81
[2019-10-24] MEDS: D5 1/2 NS W/KCL 20 MEQ/L 1,000 ML IV SCH ×2 (16:24→21:28)
[2019-10-24 16:34] VITALS: BP 145/103
[2019-10-24] MEDS: inSUlin ASPART (NovoLOG) 1 UNIT/0.01 ML (CHARGE PER UNIT) SC SCH ×2 (17:50→21:00)
--- NOTE | 2019-10-24 18:17 | NUR ---
KATHARINE PEREZ admitted to room 411-1, with an admitting diagnosis of AMS, on 10/24/19 from ED, accompanied by staff.KATHARINE PEREZ introduced to surroundings, call light, bed controls, phone, TV, temperature control, lights, meal times, smoking policy, visitor policy, side rail policy, bathrooms and showers. Patient Rights given to patient in the handbook. KATHARINE PEREZ verbalizes understanding that [facility] is not responsible for the loss or damage to any personal effects or valuables that are kept in the patients posession during their hospitalization. KATHARINE PEREZ verbalizes understanding of Interdisciplinary Patient Education. Patient and/or family were informed about the Rapid Response Team and its purpose.
--- NOTE | 2019-10-24 18:18 | NUR ---
contacted [facility] regarding patients cardiac care prior to hospitalization. staff Juany stated that she did not know when the pacemaker was placed but was able to confirm diagnosis of Afib, irregular heart beat. staff also stated that patient BP runs high typically 158/90-161-90
[2019-10-24] MEDS ORDERED: RT-ALBUTEROL SULF 2.5 MG/3 ML PRE-MIX VIAL INH PRN (19:00)
--- NOTE | 2019-10-24 19:37 | NUR ---
DR. LEE IN ROOM TO SEE PATIENT AT THIS TIME. NEW ORDERS RECEIVED.
--- NOTE | 2019-10-24 19:37 | History & Physical ---
History of Present Illness History of Present Illness Reason for visit/HPI Patient is a resident of a group home. According to the nurse patient is unresponsive. Patient is able to open her eyes. Patient only says one word. Patient unable to give a history. Patient has history of dementia Patient is known diabetic. Patient has exogenous obesity Date of Admission Oct 24, 2019 at 13:15 Time Seen by a Provider: 19:32 I consulted on this patient on 10/24/19 19:32 Attending Physician Ba Lee DO Admitting Physician Ba Lee DO Consult Allergies and Home Medications Allergies Coded Allergies: Penicillins (Unverified Allergy, Unknown, 04/11/18) codeine (Unverified Allergy, Unknown, 04/11/18) aspirin (Verified Adverse Reaction, Unknown, NAUSEA, 04/11/18) Home Medications Acetaminophen 500 Mg Tablet, 500 MG PO TID, (Reported) Acetaminophen 500 Mg Tablet, 500 MG PO Q12H PRN for PAIN-MILD (1-4), (Reported) Atorvastatin Calcium 40 Mg Tablet, 40 MG PO HS, (Reported) C,E,Zinc,Copper 11/Fwnju0w/Lut 1 Each Capsule, 1 EACH PO DAILY, (Reported) Clotrimazole/Betamethasone Dip 15 Gm Cream..g., 1 APPLIC TP BID, (Reported) APPLY TO ABDOMINAL FOLDS Dimethicone 226 Gm Lotion, 1 APPLIC TP BID, (Reported) APPLY TO BUTTTOCKS/SACRUM AREA Donepezil HCl 5 Mg Tablet, 5 MG PO HS, (Reported) Fish Oil/Dha/Epa 1 Each Capsule, 1,200 MG PO BID, (Reported) Furosemide 40 Mg Tablet, 40 MG PO DAILY, (Reported) Loratadine 10 Mg Tablet, 10 MG PO DAILY, (Reported) Magnesium Hydroxide 400 Mg/5 Ml Oral.susp, 30 MG PO Q8H PRN for CONSTIPATION-7TH LINE, (Reported) Magnesium Oxide 250 Mg Tablet, 250 MG PO TID, (Reported) Menthol 118 Ml Gel..ml., 1 APPLIC TP Q6H PRN for PAIN-BREAKTHROUGH, (Reported) Metformin HCl 500 Mg Tablet, 500 MG PO BID, (Reported) Metoprolol Succinate 50 Mg Tab.er.24h, 50 MG PO DAILY, (Reported) HOLD FOR SBP LESS THAN 100 Multivitamin/Iron/Folic Acid 1 Each Tablet, 1 EACH PO DAILY Prescribed by: MARINO CHANCE on 08/02/19 1005 Omeprazole 40 Mg Capsule.dr, 40 MG PO DAILY, (Reported) Ondansetron HCl 8 Mg Tablet, 8 MG PO Q8H PRN for NAUSEA/VOMITING-1ST LINE, (Reported) Tetrahydrozoline HCl 15 Ml Drops, 2 DROPS OU Q6H PRN for EYE IRRITATION, (Reported) Valsartan 320 Mg Tab, 320 MG PO DAILY, (Reported) HOLD FOR SBP LESS THEN 100 Patient Home Medication List Home Medication List Reviewed: No Past Ozenlck-Hhjjki-Ryuxyd Hx Past Med/Social Hx: Reviewed Nursing Past Med/Soc Hx Patient Social History Marrital Status: Employed/Student: retired Alcohol Use: Denies Use Recreational Drug Use: No Smoking Status: Unknown if Ever Smoked 2nd Hand Smoke Exposure: No Recent Foreign Travel: No Contact w/other who traveled: No Recent Hopitalizations: No Recent Infectious Disease Expo: No Immunizations Up To Date Tetanus Booster (TDap): More than 5yrs Pediatric: No Date of Pneumonia Vaccine: Aug 07, 2016 Date of Influenza Vaccine: May 31, 2019 Seasonal Allergies Seasonal Allergies: No Past Medical History Surgeries: Cardiac, Joint Replacement, Orthopedic, Pacemaker, Vascular Surgery Currently Using CPAP: No Currently Using BIPAP: No Cardiac: Atrial Fibrillation, Chronic Edema/Swelling, Deep Vein Thrombosis, High Cholesterol, Hypertension, Irregular Heartbeat, Syncope Neurological: Dementia, Stroke : No Reproductive: No Sexually Transmitted Disease: No HIV/AIDS: No Female Reproductive Disorders: Denies Menopausal Genitourinary: Bladder Infection Gastrointestinal: Gastroesophageal Reflux Musculoskeletal: Arthritis, Chronic Back Pain Endocrine: Diabetes, Non-Insulin dep History of Blood Disorders: Yes (ANEMIA) Adverse Reaction to Blood Estrada: No Family History Myocardial infarction No Pertinent Family Hx Review of Systems Constitutional: malaise, weakness, other (Nonresponding just open eyes) EENTM: no symptoms reported Respiratory: no symptoms reported Cardiovascular: no symptoms reported Gastrointestinal: no symptoms reported Genitourinary: no symptoms reported Physical Exam Vital Signs Vital Signs - First Documented 10/24/19 10/24/19 11:40 16:34 Temp 35.6 Pulse 61 Resp 18 B/P (MAP) 145/103 (117) Pulse Ox 96 O2 Delivery Room Air FiO2 21 Capillary Refill : Less Than 3 Seconds Height, Weight, BMI Height: 5'5.00" Weight: 281lbs. 0.0oz. [id number]; 46.56 BMI Method:Stated General Appearance: No Apparent Distress, WD/WN, Other (Lethargic) Eyes: Bilateral Eye Normal Inspection HEENT: Normal ENT Inspection Neck: Normal Inspection Respiratory: No Accessory Muscle Use, No Respiratory Distress Cardiovascular: Regular Rate, Rhythm Gastrointestinal: Non Tender, Soft Assessment/Plan Assessment and Plan Cude mental status change. Hypertension. Elevated lactic acid. Diabetes. Coronary artery disease. History of atrial fibrillation Admission Diagnosis Admission Status: Inpatient Order (span 2 midnights) Reason for Inpatient Admission: Nonresponsive.. Acute mental status change. Diabetes. History of atrial fibrillation. Dementia. Clinical Quality Measures DVT/VTE Risk/Contraindication: Risk Factor Score Per Nursin RFS Level Per Nursing on Admit: 4+=Very High BA LEE DO Oct 24, 2019 19:37
[2019-10-24] MEDS ORDERED: ENOXAPARIN 40 MG/0.4 ML (LOVENOX) SYR SC SCH ×2 (19:45)
[2019-10-24 20:14] VITALS: BP 191/73
[2019-10-24] MEDS: RT-ALBUTEROL SULF 2.5 MG/3 ML PRE-MIX VIAL INH SCH (20:41)
[2019-10-24] MEDS: ENOXAPARIN 40 MG/0.4 ML (LOVENOX) SYR SC SCH (21:28)
[2019-10-25] VITALS: BP 196/62
[2019-10-25] MEDS ORDERED: meTOprolol 5 MG/5 ML (LOPRESSOR) VIAL IV SCH
[2019-10-25] MEDS: CEFEPIME 1,000 MG/SWFI 10 ML IV PUSH IV SCH ×8 (01:04→17:49)
[2019-10-25] MEDS: meTOprolol 5 MG/5 ML (LOPRESSOR) VIAL IV PRN (01:04)
--- NOTE | 2019-10-25 02:33 | NUR ---
DR. LEE CALLED THIS RN AND ASKED IF PT HAS HAD ABGs ANALYZED. NO ABGs HAVE BEEN TAKEN FROM THIS PT FROM THIS ADMISSION. NEW ORDER FOR ABGs NOW.
[2019-10-25 03:05] LABS: ABG OXYGEN SATURATION 98 % (94-100); ABG PCO2 45 MMHG (35-45); ABG PH 7.41 (7.37-7.43); ABG PO2 91 MMHG (79-93); ABG TCO2 29.9 MMOL/L (21.0-31.0)
[2019-10-25 03:06] LABS: ALLENS TEST YES-POS; INSPIRED O2 ROOM AIR; PATIENT TEMP 36.7; VENTILATOR NO
[2019-10-25] MEDS: D5 1/2 NS W/KCL 20 MEQ/L 1,000 ML IV SCH ×2 (03:43→13:12)
[2019-10-25 04:00] VITALS: BP 176/82
[2019-10-25 04:00] LABS: BASOPHILS % (AUTO) 0 % (0-10); EOSINOPHILS # (AUTO) 0.1 10^3/uL (0.0-0.3); EOSINOPHILS % (AUTO) 3 % (0-10); HEMATOCRIT 28 % (35-52); HEMOGLOBIN 8.9 G/DL (11.5-16.0); LYMPHOCYTES # (AUTO) 0.8 X 10^3 (1.0-4.0); LYMPHOCYTES % (AUTO) 18 % (12-44); MEAN CORPUSCULAR HEMOGLOBIN 33 PG (25-34); MEAN CORPUSCULAR HGB CONC 32 G/DL (32-36); MEAN CORPUSCULAR VOLUME 101 FL (80-99); MEAN PLATELET VOLUME 9.8 FL (7.4-10.4); MONOCYTES # (AUTO) 0.4 X 10^3 (0.0-1.0); MONOCYTES % (AUTO) 11 % (0-12); NEUTROPHILS # (AUTO) 2.8 X 10^3 (1.8-7.8); NEUTROPHILS % (AUTO) 68 % (42-75); PLATELET COUNT 85 10^3/uL (130-400); RED CELL DISTRIBUTION WIDTH 15.2 % (10.0-14.5); WHITE BLOOD COUNT 4.1 10^3/uL (4.3-11.0)
[2019-10-25 04:21] LABS: ALANINE AMINOTRANSFERASE 27 U/L (0-55); ALBUMIN 2.6 GM/DL (3.2-4.5); ALKALINE PHOSPHATASE 86 U/L (40-136); BILIRUBIN,TOTAL 0.7 MG/DL (0.1-1.0); BUN/CREATININE RATIO 20; CALCIUM 8.7 MG/DL (8.5-10.1); CARBON DIOXIDE 28 MMOL/L (21-32); CHLORIDE 101 MMOL/L (98-107); CREATININE SERUM 0.83 MG/DL (0.60-1.30); GFR ESTIMATED > 60; GLUCOSE 147 MG/DL (70-105); POTASSIUM 4.6 MMOL/L (3.6-5.0); SODIUM 135 MMOL/L (135-145); TOTAL PROTEIN 5.6 GM/DL (6.4-8.2)
[2019-10-25] MEDS: inSUlin ASPART (NovoLOG) 1 UNIT/0.01 ML (CHARGE PER UNIT) SC SCH ×3 (05:37→17:00)
--- NOTE | 2019-10-25 07:38 | Diagnostic Imaging Report ---
EXAMINATION: Chest 1 view HISTORY: Possible sepsis. Altered mental status. COMPARISON: Chest radiograph on 10/24/2019. FINDINGS: There is stable configuration of the right PICC and left pectoral pacemaker. No focal consolidation is seen. No large pleural effusion or pneumothorax is seen. Unchanged cardiomegaly with mild prominence of the central pulmonary vasculature. No acute osseous abnormality is seen. IMPRESSION: 1. Stable cardiomegaly with mildly prominent central pulmonary vasculature. No overt pulmonary edema. Dictated by: Dictated on workstation # [id number]
--- NOTE | 2019-10-25 07:47 | Progress Note ---
Subjective Time Seen by a Provider: 07:43 Subjective/Events-last exam Patient more alert this morning than last night. Babinski negative. Patient moves all extremities.. No droopiness of mouth. Patient not able to communicate. Patient opens her eyes. Patient to have MRI today Patient worked in progress Patient has done this before and woke up in a few days Focused Exam Lactate Level 10/24/19 11:50: Lactic Acid Level 2.49*H 10/24/19 14:12: Lactic Acid Level 1.72 10/25/19 03:50: Lactic Acid Level 0.96 Lactic Acid Level Laboratory Tests Test 10/25/19 03:50 Lactic Acid Level 0.96 MMOL/L (0.50-2.00) Objective Exam Vital Signs Date Time Temp Pulse Resp B/P (MAP) Pulse Ox O2 Delivery O2 Flow Rate FiO2 10/25/19 04:00 36.3 61 20 176/82 (113) 96 Room Air 10/25/19 02:41 36.7 10/25/19 01:25 60 10/25/19 00:00 36.3 64 20 196/62 (106) 98 Room Air 10/24/19 20:37 95 Room Air 10/24/19 20:14 35.8 64 22 191/73 (112) 96 Room Air 10/24/19 20:00 Room Air 10/24/19 19:11 61 10/24/19 16:42 69 10/24/19 16:34 35.9 61 96 21 10/24/19 16:00 36.1 64 16 130/81 (97) 97 Room Air 10/24/19 15:39 96 Room Air 10/24/19 15:06 35.9 63 20 178/96 96 Room Air 10/24/19 14:01 65 14 144/88 96 Room Air 10/24/19 11:40 35.6 61 18 145/103 (117) 96 Room Air I & O 10/25/19 07:00 Intake Total 3040 ml Output Total 750 ml Balance 2290 ml Capillary Refill : Less Than 3 Seconds General Appearance: No Apparent Distress, WD/WN HEENT: Normal ENT Inspection Neck: Full Range of Motion, Normal Inspection Respiratory: Lungs Clear, No Accessory Muscle Use, No Respiratory Distress Cardiovascular: Regular Rate, Rhythm, No Murmur, Other (Negative Babinski) Gastrointestinal: non tender, soft Neurologic/Psychiatric: Other (y negative) Results Lab Laboratory Tests 10/24/19 11:50 10/25/19 03:50 Laboratory Tests 10/24/19 11:50: White Blood Count 4.7, Red Blood Count 2.91L, Hemoglobin 9.5L, Hematocrit 29L, Mean Corpuscular Volume 101H, Mean Corpuscular Hemoglobin 33, Mean Corpuscular Hemoglobin Concent 32, Red Cell Distribution Width 15.6H, Platelet Count 98L, Mean Platelet Volume 9.3, Neutrophils (%) (Auto) 71, Lymphocytes (%) (Auto) 16, Monocytes (%) (Auto) 10, Eosinophils (%) (Auto) 3, Basophils (%) (Auto) 0, Neutrophils # (Auto) 3.3, Lymphocytes # (Auto) 0.8L, Monocytes # (Auto) 0.5, Eosinophils # (Auto) 0.1, Basophils # (Auto) 0.0, Prothrombin Time 15.4H, INR Comment 1.2, Activated Partial Thromboplast Time 44H, Urine Color YELLOW, Urine Clarity CLEAR, Urine pH 6.0, Urine Specific Norris 1.020, Urine Protein NEGATIVE, Urine Glucose (UA) NEGATIVE, Urine Ketones NEGATIVE, Urine Nitrite NEGATIVE, Urine Bilirubin NEGATIVE, Urine Urobilinogen 0.2, Urine Leukocyte Esterase NEGATIVE, Urine RBC (Auto) NEGATIVE, Urine RBC NONE, Urine WBC NONE, Urine Squamous Epithelial Cells RARE, Urine Crystals NONE, Urine Bacteria NEGATIVE, Urine Casts NONE, Urine Mucus NEGATIVE, Urine Culture Indicated NO, So dium Level 137, Potassium Level 4.7, Chloride Level 100, Carbon Dioxide Level 29, Anion Gap 8, Blood Urea Nitrogen 19H, Creatinine 1.07, Estimat Glomerular Filtration Rate 49, BUN/Creatinine Ratio 18, Glucose Level 136H, Lactic Acid Level 2.49*H, Calcium Level 9.2, Corrected Calcium 10.2H, Magnesium Level 1.6, Total Bilirubin 0.9, Aspartate Amino Transf (AST/SGOT) 31, Alanine Aminotransferase (ALT/SGPT) 32, Alkaline Phosphatase 96, Total Creatine Kinase 59, Creatine Kinase MB 1.9, Myoglobin 145.4H, Troponin I < 0.028, B-Type Natriuretic Peptide 319.9H, Total Protein 5.8L, Albumin 2.8L, Amylase Level 65, Lipase 49, TSH Kaufman Testing 2.01 10/24/19 14:12: Lactic Acid Level 1.72 10/24/19 17:32: Glucometer 120H 10/24/19 21:09: Glucometer 186H 10/25/19 00:14: Glucometer 162H 10/25/19 02:46: Blood Gas Puncture Site RIGHT RADIAL, Blood Gas Patient Temperature 36.7, Arterial Blood pH 7.41, Arterial Blood Partial Pressure CO2 45, Arterial Blood Partial Pressure O2 91, Arterial Blood HCO3 29H, Arterial Blood Total CO2 29.9, Arterial Blood Oxygen Saturation 98, Arterial Blood Base Excess 4.0H, Rafael Test YES-POS, Blood Gas Ventilator Setting NO, Blood Gas Inspired Oxygen ROOM AIR 10/25/19 03:50: White Blood Count 4.1L, Red Blood Count 2.74L, Hemoglobin 8.9L, Hematocrit 28L, Mean Corpuscular Volume 101H, Mean Corpuscular Hemoglobin 33, Mean Corpuscular Hemoglobin Concent 32, Red Cell Distribution Width 15.2H, Platelet Count 85L, Mean Platelet Volume 9.8, Neutrophils (%) (Auto) 68, Lymphocytes (%) (Auto) 18, Monocytes (%) (Auto) 11, Eosinophils (%) (Auto) 3, Basophils (%) (Auto) 0, Neutrophils # (Auto) 2.8, Lymphocytes # (Auto) 0.8L, Monocytes # (Auto) 0.4, Eosinophils # (Auto) 0.1, Basophils # (Auto) 0.0, Sodium Level 135, Potassium Level 4.6, Chloride Level 101, Carbon Dioxide Level 28, Anion Gap 6, Blood Urea Nitrogen 17, Creatinine 0.83, Estimat Glomerular Filtration Rate > 60, BUN/Creatinine Ratio 20, Glucose Level 147H, Lactic Acid Level 0.96, Calcium Level 8.7, Corrected Calcium 9.8, Total Bilirubin 0.7, Aspartate Amino Transf (AST/SGOT) 29, Alanine Aminotransferase (ALT/SGPT) 27, Alkaline Phosphatase 86, Total Protein 5.6L, Albumin 2.6L 10/25/19 05:14: Glucometer 152H Microbiology 10/24/19 Influenza Types A,B Antigen (JASIEL) - Final, Complete Assessment/Plan Assessment/Plan Assess & Plan/Chief Complaint Altered mental status. Diabetes. Area disease. Morbid obesity. Inability to communicate. Patient slowly improving. Hypertension Clinical Quality Measures Admission Status Admission Dx Cude mental status change. Hypertension. Elevated lactic acid. Diabetes. Coronary artery disease. History of atrial fibrillation DVT/VTE Risk/Contraindication: Risk Factor Score Per Nursin RFS Level Per Nursing on Admit: 4+=Very High ADEN LEE DO Oct 25, 2019 07:47
[2019-10-25] MEDS: RT-ALBUTEROL SULF 2.5 MG/3 ML PRE-MIX VIAL INH SCH ×2 (08:04→18:00)
[2019-10-25] MEDS: ENOXAPARIN 40 MG/0.4 ML (LOVENOX) SYR SC SCH ×2 (08:24→20:56)
[2019-10-25 08:25] VITALS: BP 159/77
--- NOTE | 2019-10-25 08:59 | Speech Therapy Progress Note ---
Therapy Progress Note ST attempted to evaluate the patient, however patient was unable to participate and safely complete evaluation. ST spoke with nursing and reported that the patients similar medical episodes have resolved after receiving antibiotics. ST will follow up in 24 hours. SOHAM CRUZ Oct 25, 2019 08:59
[2019-10-25 12:00] VITALS: BP 157/67
[2019-10-25 16:00] VITALS: BP 159/89
--- NOTE | 2019-10-25 16:21 | NUR ---
Pastoral care visit.
[2019-10-25 20:00] VITALS: BP 145/56
[2019-10-26] VITALS (9 sets, daily range): BP systolic 131–193; BP diastolic 60–90
[2019-10-26] MEDS: inSUlin ASPART (NovoLOG) 1 UNIT/0.01 ML (CHARGE PER UNIT) SC SCH ×4 (00:08→18:13)
[2019-10-26] MEDS: CEFEPIME 1,000 MG/SWFI 10 ML IV PUSH IV SCH ×4 (00:08→06:55)
[2019-10-26] MEDS: D5 1/2 NS W/KCL 20 MEQ/L 1,000 ML IV SCH (02:43)
[2019-10-26] MEDS: meTOprolol 5 MG/5 ML (LOPRESSOR) VIAL IV PRN (04:15)
[2019-10-26] MEDS ORDERED: FUROSEMIDE 40 MG/4 ML INJ (LASIX) ONE (04:31)
--- NOTE | 2019-10-26 04:35 | NUR ---
DR LEE CALLED REGARDING PT INCREASED DIFFICULTY BREATHING, AND HIGH BLOOD PRESSURE. NEW ORDERS RECEIVED, SEE ORDER HISTORY.
[2019-10-26] MEDS ORDERED: FUROSEMIDE 40 MG/4 ML INJ (LASIX) IVP ONE (04:45)
--- NOTE | 2019-10-26 04:45 | NUR ---
DR LEE CALLED THIS NURSE WITH NEW ORDERS, SEE ORDER HISTORY Addendum: 10/26/19 at 0640 by TEDDY STEVENSON RN DR LEE CALLED THIS NURSE TO ORDER STAT PORTABLE CHEST X-RAY AND BNP
[2019-10-26 05:03] LABS: HEMOGLOBIN 9.2 G/DL (11.5-16.0); MEAN PLATELET VOLUME 9.5 FL (7.4-10.4); RED CELL DISTRIBUTION WIDTH 15.8 % (10.0-14.5); WHITE BLOOD COUNT 4.8 10^3/uL (4.3-11.0)
[2019-10-26 05:23] LABS: ALANINE AMINOTRANSFERASE 25 U/L (0-55); ALBUMIN 2.7 GM/DL (3.2-4.5); ALKALINE PHOSPHATASE 84 U/L (40-136); BILIRUBIN,TOTAL 0.9 MG/DL (0.1-1.0); BUN/CREATININE RATIO 17; CARBON DIOXIDE 27 MMOL/L (21-32); CHLORIDE 102 MMOL/L (98-107); CREATININE SERUM 0.78 MG/DL (0.60-1.30); GFR ESTIMATED > 60; GLUCOSE 109 MG/DL (70-105); POTASSIUM 4.7 MMOL/L (3.6-5.0); SODIUM 135 MMOL/L (135-145); TOTAL PROTEIN 5.8 GM/DL (6.4-8.2)
--- NOTE | 2019-10-26 06:18 | NUR ---
dr asked this nurse to update on this pt. Dr. Tian called at 0618
[2019-10-26] MEDS: RT-ALBUTEROL SULF 2.5 MG/3 ML PRE-MIX VIAL INH SCH (06:45)
--- NOTE | 2019-10-26 07:34 | Diagnostic Imaging Report ---
Indication: Shortness of breath Portable chest 5:12 AM There is a dual-chamber pacemaker. Right subclavian Port-A-Cath tip projects over the SVC. Heart size and pulmonary vascularity are normal. Lungs are clear. IMPRESSION: No acute abnormalities in the chest Dictated by: Dictated on workstation # [id number]
--- NOTE | 2019-10-26 07:36 | Progress Note ---
Subjective Time Seen by a Provider: 07:31 Subjective/Events-last exam Patient still has acute mental status change. Patient is not communicating. Patient is just staring. Patient given Lasix last night with good results. Patient this time is not coming around that she previously had been before. Patient has pacemaker cannot do MRI. Platelet count 98,000 better. To speak to family about DO NOT RESUSCITATE. Focused Exam Lactate Level 10/24/19 11:50: Lactic Acid Level 2.49*H 10/24/19 14:12: Lactic Acid Level 1.72 10/25/19 03:50: Lactic Acid Level 0.96 Objective Exam Vital Signs Date Time Temp Pulse Resp B/P (MAP) Pulse Ox O2 Delivery O2 Flow Rate FiO2 10/26/19 06:47 96 Room Air 10/26/19 05:00 143/72 (95) 10/26/19 04:53 178/90 (119) 10/26/19 04:25 36.2 64 16 193/66 (108) 95 Room Air 10/26/19 01:00 63 10/26/19 00:00 36.6 63 16 143/71 (95) 96 Room Air 10/25/19 20:55 Room Air 10/25/19 20:00 36.8 60 22 145/56 (85) 97 Room Air 10/25/19 19:00 62 10/25/19 18:00 94 Room Air 10/25/19 16:00 36.6 82 20 159/89 (112) 96 Room Air 10/25/19 13:00 63 10/25/19 12:00 36.3 60 18 157/67 (97) 96 Room Air 10/25/19 08:25 36.4 60 22 159/77 (104) 95 Room Air 10/25/19 08:05 97 Room Air 10/25/19 08:03 Room Air I & O 10/26/19 07:00 Output Total 1100 ml Balance -1100 ml Capillary Refill : Less Than 3 Seconds General Appearance: No Apparent Distress, WD/WN HEENT: Normal ENT Inspection Neck: Normal Inspection Respiratory: No Accessory Muscle Use, No Respiratory Distress, Decreased Breath Sounds Cardiovascular: Irregularly Irregular Gastrointestinal: non tender Extremity: Pedal Edema Neurologic/Psychiatric: Aphasia Results Lab Laboratory Tests 10/26/19 04:52 Laboratory Tests 10/25/19 10:48: Glucometer 124H 10/25/19 17:51: Glucometer 120H 10/26/19 00:07: Glucometer 132H 10/26/19 04:52: White Blood Count 4.8, Red Blood Count 2.86L, Hemoglobin 9.2L, Hematocrit 29L, Mean Corpuscular Volume 100H, Mean Corpuscular Hemoglobin 32, Mean Corpuscular Hemoglobin Concent 32, Red Cell Distribution Width 15.8H, Platelet Count 98L, Mean Platelet Volume 9.5, Sodium Level 135, Potassium Level 4.7, Chloride Level 102, Carbon Dioxide Level 27, Anion Gap 6, Blood Urea Nitrogen 13, Creatinine 0.78, Estimat Glomerular Filtration Rate > 60, BUN/Creatinine Ratio 17, Glucose Level 109H, Calcium Level 9.0, Corrected Calcium 10.0, Total Bilirubin 0.9, Asp artate Amino Transf (AST/SGOT) 29, Alanine Aminotransferase (ALT/SGPT) 25, Alkaline Phosphatase 84, B-Type Natriuretic Peptide 358.2H, Total Protein 5.8L, Albumin 2.7L Microbiology 10/24/19 Blood Culture - Preliminary, Resulted No growth 10/24/19 Urine Culture - Final, Complete NO GROWTH 10/24/19 Influenza Types A,B Antigen (JASIEL) - Final, Complete Assessment/Plan Assessment/Plan Assess & Plan/Chief Complaint Altered mental status. Diabetes. Area disease. Morbid obesity. Inability to communicate. Patient slowly improving. Hypertension. . 10/26/2019. Altered mental status continues. Patient nonresponsive. Congestive heart failure. Responded well to Lasix. Diabetes. Morbid obesity. Thrombocytopenia. Patient took a turn for the worst. Dementia Clinical Quality Measures Admission Status Admission Dx Cude mental status change. Hypertension. Elevated lactic acid. Diabetes. Coronary artery disease. History of atrial fibrillation DVT/VTE Risk/Contraindication: Risk Factor Score Per Nursin RFS Level Per Nursing on Admit: 4+=Very High ADEN LEE DO Oct 26, 2019 07:36
--- NOTE | 2019-10-26 07:41 | Pulmonary Consultation ---
History of Present Illness History of Present Illness Date Seen by Provider: Oct 26, 2019 Time Seen by Provider: 07:30 Date of Admission History of Present Illness 79yo poor historian who is wheel chair bound and dependent on staff for transfers via a earnest lift presented to ED via EMS from [facility] secondary to decreased MS. I am being consulted this morning secondary to acute worsening SOB and wheezing this morning. Pt was given 40mg of lasix which improved SOB. She has had increased edema. Pt also has hx of CVA and has baseline expressive aphasia. Allergies and Home Medications Allergies Coded Allergies: Penicillins (Unverified Allergy, Unknown, 04/11/18) codeine (Unverified Allergy, Unknown, 04/11/18) aspirin (Verified Adverse Reaction, Unknown, NAUSEA, 04/11/18) Home Medications Acetaminophen 500 Mg Tablet, 500 MG PO TID, (Reported) Acetaminophen 500 Mg Tablet, 500 MG PO Q12H PRN for PAIN-MILD (1-4), (Reported) Atorvastatin Calcium 40 Mg Tablet, 40 MG PO HS, (Reported) C,E,Zinc,Copper 11/Lxsve0q/Lut 1 Each Capsule, 1 EACH PO DAILY, (Reported) Clotrimazole/Betamethasone Dip 15 Gm Cream..g., 1 APPLIC TP BID, (Reported) APPLY TO ABDOMINAL FOLDS Dimethicone 226 Gm Lotion, 1 APPLIC TP BID, (Reported) APPLY TO BUTTTOCKS/SACRUM AREA Donepezil HCl 5 Mg Tablet, 5 MG PO HS, (Reported) Fish Oil/Dha/Epa 1 Each Capsule, 1,200 MG PO BID, (Reported) Furosemide 40 Mg Tablet, 40 MG PO DAILY, (Reported) Loratadine 10 Mg Tablet, 10 MG PO DAILY, (Reported) Magnesium Hydroxide 400 Mg/5 Ml Oral.susp, 30 MG PO Q8H PRN for CONSTIPATION-7TH LINE, (Reported) Magnesium Oxide 250 Mg Tablet, 250 MG PO TID, (Reported) Menthol 118 Ml Gel..ml., 1 APPLIC TP Q6H PRN for PAIN-BREAKTHROUGH, (Reported) Metformin HCl 500 Mg Tablet, 500 MG PO BID, (Reported) Metoprolol Succinate 50 Mg Tab.er.24h, 50 MG PO DAILY, (Reported) HOLD FOR SBP LESS THAN 100 Multivitamin/Iron/Folic Acid 1 Each Tablet, 1 EACH PO DAILY Prescribed by: MARINO CHANCE on 08/02/19 1005 Omeprazole 40 Mg Capsule.dr, 40 MG PO DAILY, (Reported) Ondansetron HCl 8 Mg Tablet, 8 MG PO Q8H PRN for NAUSEA/VOMITING-1ST LINE, (Reported) Tetrahydrozoline HCl 15 Ml Drops, 2 DROPS OU Q6H PRN for EYE IRRITATION, (Reported) Valsartan 320 Mg Tab, 320 MG PO DAILY, (Reported) HOLD FOR SBP LESS THEN 100 Past Ewbgrju-Lrharq-Mugbtz Hx Past Med/Social Hx: Reviewed and Corrections made Patient Social History Smoking Status: Unknown if Ever Smoked 2nd Hand Smoke Exposure: No Recent Foreign Travel: No Contact w/Someone Who Travel: No Recent Infectious Disease Expo: No Recent Hopitalizations: No Immunizations Up To Date Tetanus Booster (TDap): More than 5yrs PED Vaccines UTD: No Date of Pneumonia Vaccine: Aug 07, 2016 Date of Influenza Vaccine: May 31, 2019 Seasonal Allergies Seasonal Allergies: No Past Medical History Surgeries: Yes (PORT RIGHT CHEST) Cardiac, Joint Replacement, Orthopedic, Pacemaker, Vascular Surgery Respiratory: Yes Pulmonary Embolism Currently Using CPAP: No Currently Using BIPAP: No Cardiac: Yes (VENA CAVA FILTER;PACEMAKER /SICK SINUS SYNDROME;LINQ DEVICE;DVT UPPER EXTRE) Atrial Fibrillation, Chronic Edema/Swelling, Deep Vein Thrombosis, High Cholesterol, Hypertension, Irregular Heartbeat, Syncope Neurological: Yes (EXPRESSIVE APHASIA; COGNITIVE COMMUNICATION DEFICIT) Dementia, Stroke : No Reproductive Disorders: No Female Reproductive Disorders: Denies 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 ) Diabetes, Non-Insulin dep HEENT: Yes (KERATITIS RIGHT EYE) Cancer: No Psychosocial: No Integumentary: Yes (INTERTRIGO) Blood Disorders: Yes (ANEMIA/PANCYTOPENIA) Adverse Reaction/Blood Tranf: No Family Medical History Myocardial infarction No Pertinent Family Hx PSH: -PORT RIGHT CHEST -PACEMAKER -LINQ DEVICE IMPLANTED -LEFT KNEE REPLACEMENT -RIGHT SHOULDER SURGERY -VENA CAVA FILTER -BONE SPUR REMOVED FROM LEFT FOOT Review of Systems Time Seen by Provider: 07:40 Sepsis Event Evaluation Height, Weight, BMI Height: 5'5.00" Weight: 281lbs. 0.0oz. 127.477385xv; 46.56 BMI Method:Stated Exam Exam Vital Signs Date Time Temp Pulse Resp B/P (MAP) Pulse Ox O2 Delivery O2 Flow Rate FiO2 10/26/19 06:47 96 Room Air 10/26/19 05:00 143/72 (95) 10/26/19 04:53 178/90 (119) 10/26/19 04:25 36.2 64 16 193/66 (108) 95 Room Air 10/26/19 01:00 63 10/26/19 00:00 36.6 63 16 143/71 (95) 96 Room Air 10/25/19 20:55 Room Air 10/25/19 20:00 36.8 60 22 145/56 (85) 97 Room Air 10/25/19 19:00 62 10/25/19 18:00 94 Room Air 10/25/19 16:00 36.6 82 20 159/89 (112) 96 Room Air 10/25/19 13:00 63 10/25/19 12:00 36.3 60 18 157/67 (97) 96 Room Air 10/25/19 08:25 36.4 60 22 159/77 (104) 95 Room Air 10/25/19 08:05 97 Room Air 10/25/19 08:03 Room Air I & O 10/26/19 07:00 Output Total 1100 ml Balance -1100 ml Height & Weight Height: 5'5.00" Weight: 281lbs. 0.0oz. [id number]; 46.56 BMI Method:Stated General Appearance: Obese (MORBIDLY OBESE), Other (lethargic ) HEENT: Normal ENT Inspection Neck: Full Range of Motion, Normal Inspection Respiratory: No Accessory Muscle Use, No Respiratory Distress, Crackles, Decreased Breath Sounds, Wheezing Cardiovascular: Regular Rate, Rhythm, No Murmur Capillary Refill: Less Than 3 Seconds Gastrointestinal: non tender, soft Extremity: Pedal Edema (SIGNIFICANT EDEMA TO ARMS AND LEGS--DIFFICULT TO DETERMINE THE DEGREE OF EDEMA DUE TO BODY HABITUS. ) Neurologic/Psychiatric: Other (KEEPS EYES CLOSED, MOANING CONSTANTLY. NO EFFORT TO MOVE ANY EXTREMITIES OR ANY PART OF BODY) Skin: Normal Color, Warm/Dry Results Lab Laboratory Tests 2/24/20 11:50 10/25/19 03:50 10/26/19 04:52 Assessment/Plan Assessment/Plan Acute respiratory distress - Doubt PNA -D/C Cefepime -UA is negative -Improved with Lasix -BNP is elevated at 358 Acute bronchitis -Increase SVN txs to Q 4 - Morbid obesity SKYLA FOUNTAIN DO Oct 26, 2019 07:40
--- NOTE | 2019-10-26 07:42 | NUR ---
DR. LEE HERE AND ASSESSED PT. SPOKE WITH DTRAmalia ALCANTAR PER DR. WEST AND DTR. SRINIVASAN WITH DNR. STATUS CHANGED. DR. GRANGER NOTIFIED OF CONSULT.
[2019-10-26] MEDS: ENOXAPARIN 40 MG/0.4 ML (LOVENOX) SYR SC SCH ×2 (08:15→21:36)
--- NOTE | 2019-10-26 08:16 | Speech Therapy Progress Note ---
Therapy Progress Note ST attempted to follow-up from yesterday to evaluate the patient, however patient was still unable to participate and safely complete evaluation. ST will continue to follow up in 24 hours. SOHAM CRUZ Oct 26, 2019 08:16
--- NOTE | 2019-10-26 08:59 | Consultation-Cardiology ---
HPI-Cardiology Cardiology Consultation: Date of Consultation 10/26/19 Time Seen by a Provider: 08:45 Date of Admission 10-25-2019 Attending Physician Aden Lee DO Admitting Physician Aden Lee DO Consulting Physician Fely Carbone MD HPI: Chief Complaint: AMS Ms. Katharine Perez is an 79 year old female admitted to 411 from the ED. She resides at a LT facility. She is currently sitting up in bed staring. She moans when touched, but otherwise is not interacting. Review of ED records reports she is total care, but was found to have decreased mental status yeste rday. Therefore, she was brought to the ED. Review of Systems-Cardiology Review of Systems Other comments Unable to obtain ROS d/t mental status JYF-Mztrbo-Ijdnke Hx Patient Social History Marrital Status: Employed/Student: retired Smoking Status: Unknown if Ever Smoked 2nd Hand Smoke Exposure: No Recent Foreign Travel: No Recent Infectious Disease Expo: No Hospitalization with Isolation: Denies Immunizations Up To Date Tetanus Booster (TDap): More than 5yrs Date of Pneumonia Vaccine: Aug 07, 2016 Date of Influenza Vaccine: May 31, 2019 Past Medical History PMH As described under Assessment. Family Medical History Family Medical History: Documented family h/o mother and father having a stroke and CAD. Family History: Myocardial infarction Allergies and Home Medications Allergies Coded Allergies: Penicillins (Unverified Allergy, Unknown, 04/11/18) codeine (Unverified Allergy, Unknown, 04/11/18) aspirin (Verified Adverse Reaction, Unknown, NAUSEA, 04/11/18) Home Medications Acetaminophen 500 Mg Tablet, 500 MG PO TID, (Reported) Acetaminophen 500 Mg Tablet, 500 MG PO Q12H PRN for PAIN-MILD (1-4), (Reported) Atorvastatin Calcium 40 Mg Tablet, 40 MG PO HS, (Reported) C,E,Zinc,Copper 11/Jqxhs4y/Lut 1 Each Capsule, 1 EACH PO DAILY, (Reported) Dimethicone 226 Gm Lotion, 1 APPLIC TP BID, (Reported) APPLY TO BUTTTOCKS/SACRUM AREA Donepezil HCl 5 Mg Tablet, 5 MG PO HS, (Reported) Fish Oil/Dha/Epa 1 Each Capsule, 1,200 MG PO BID, (Reported) Furosemide 40 Mg Tablet, 40 MG PO DAILY, (Reported) Guaifenesin 1,200 Mg Tab.er.12h, 1,200 MG PO Q12H PRN for CONGESTION, (Reported) Hypromellose 10 Gm Gel..gram., 1 DROP OD HS, (Reported) Loratadine 10 Mg Tablet, 10 MG PO DAILY PRN for CONGESTION, (Reported) Magnesium Hydroxide 400 Mg/5 Ml Oral.susp, 30 MG PO Q8H PRN for CONSTIPATION-7TH LINE, (Reported) Magnesium Oxide 250 Mg Tablet, 250 MG PO TID, (Reported) Menthol 118 Ml Gel..ml., 1 APPLIC TP Q6H PRN for PAIN-BREAKTHROUGH, (Reported) Metformin HCl 500 Mg Tablet, 500 MG PO BID, (Reported) Metoprolol Succinate 50 Mg Tab.er.24h, 50 MG PO DAILY, (Reported) HOLD FOR SBP LESS THAN 100 Miconazole Nitrate 90 Gm Powder, 1 GM TP UD, (Reported) APPLY TO BILAT ABD FOLDS WITH EVERY SHIFT CHANGE Multivitamin/Iron/Folic Acid 1 Each Tablet, 1 EACH PO DAILY, (Reported) Omeprazole 40 Mg Capsule.dr, 40 MG PO DAILY, (Reported) Ondansetron HCl 8 Mg Tablet, 8 MG PO Q8H PRN for NAUSEA/VOMITING-1ST LINE, (Reported) Propylene Glycol 1.5 Ml Drops, 1 DROP OD BID, (Reported) Tetrahydrozoline HCl 15 Ml Drops, 2 DROPS OU Q6H PRN for DRY EYES, (Reported) Valsartan 320 Mg Tab, 320 MG PO DAILY, (Reported) HOLD FOR SBP LESS THEN 100 Physical Exam-Cardiology Physical Exam Vital Signs/I&O 10/26/19 10/26/19 10/26/19 10/26/19 20:00 20:00 21:54 22:40 Temp 36.5 Pulse 79 Resp 20 B/P (MAP) 165/84 (111) 138/74 (95) Pulse Ox 97 93 O2 Delivery Room Air Room Air Room Air 10/27/19 10/27/19 10/27/19 10/27/19 00:00 01:00 03:00 04:00 Temp 36.6 36.6 Pulse 67 80 88 Resp 22 20 B/P (MAP) 150/65 (93) 114/63 (80) Pulse Ox 96 91 97 O2 Delivery Room Air Room Air Room Air 10/27/19 10/27/19 06:56 07:00 Pulse 83 Pulse Ox 93 O2 Delivery Room Air 10/27/19 00:00 Intake Total 0 ml Output Total 2425 ml Balance -2425 ml Capillary Refill : Less Than 3 Seconds Constitutional: No AAO x 3; well-developed, well-nourished HEENT: other (staring ) Neck: No carotid bruit; carotid pulses are 2 + bilaterally Respiratory: No accessory muscle use, No respiratory distress; chest expansion is symmetric, chest is bilaterally symmetric, other (good air entry) Cardiovascular: regular rate-rhythm, S1 and S2 Gastrointestinal: round, audible bowel sounds Extremities: other (generalized edema) Neurologic/Psychiatric: other (moans when touched, does not follow commands) Skin: No rash on exposed areas, No ulcerations on exposed areas Data Review Labs Laboratory Tests 10/26/19 12:19: Glucometer 109 10/26/19 17:41: Glucometer 97 10/27/19 05:00: White Blood Count 3.8L, Red Blood Count 2.45L, Hemoglobin 7.9L, Hematocrit 25L, Mean Corpuscular Volume 100H, Mean Corpuscular Hemoglobin 32, Mean Corpuscular Hemoglobin Concent 32, Red Cell Distribution Width 15.7H, Platelet Count 80L, Mean Platelet Volume 9.7, Neutrophils (%) (Auto) 61, Lymphocytes (%) (Auto) 20, Monocytes (%) (Auto) 16H, Eosinophils (%) (Auto) 3, Basophils (%) (Auto) 0, Neutrophils # (Auto) 2.3, Lymphocytes # (Auto) 0.7L, Monocytes # (Auto) 0.6, Eosinophils # (Auto) 0.1, Basophils # (Auto) 0.0, Sodium Level 136, Potassium Level 3.8, Chloride Level 100, Carbon Dioxide Level 28, Anion Gap 8, Blood Urea Nitrogen 15, Creatinine 0.86, Estimat Glomerular Filtration Rate > 60, BUN/Creatinine Ratio 17, Glucose Level 85, Calcium Level 8.5, Corrected Calcium 9.9, Total Bilirubin 1.1H, Aspartate Amino Transf (AST/SGOT) 27, Alanine Aminotransferase (ALT/SGPT) 20, Alkaline Phosphatase 70, B-Type Natriuretic Peptide 131.0H, Total Protein 4.9L, Albumin 2.2L Microbiology 10/24/19 Blood Culture - Preliminary, Resulted No growth 10/24/19 Urine Culture - Final, Complete NO GROWTH 10/24/19 Influenza Types A,B Antigen (JASIEL) - Final, Complete Radiology NAME: KATHARINE PEREZ [facility] REC#: [id number] PT STATUS: ADM Shay : 1940 PHYSICIAN: LORA AUSTIN DO ADMIT DATE: 10/24/19 Signed Date of Exam:10/24/19 CT HEAD WO-R/O STROKE PROCEDURE: CT head wo r/o stroke. TECHNIQUE: Multiple contiguous axial images were obtained through the brain without the use of intravenous contrast. Auto Exposure Controls were utilized during the CT exam to meet ALARA standards for radiation dose reduction. INDICATION: Altered mental status. COMPARISON: CT head without contrast 07/31/2019. FINDINGS: No intracranial hemorrhage, mass effect, hydrocephalus or extra-axial fluid collections. Subcortical low-attenuation changes in the left frontal lobe have not convincingly changed since the prior exam. No loss of the medina-white junction to suggest acute or subacute infarct. Osseous structures are intact. The paranasal sinuses and mastoids are clear. IMPRESSION: No acute intracranial CT findings. Dictated by: Dictated on workstation # [id number] Dict: 10/24/19 1255 Trans: 10/24/191721 [facility] [id number] Interpreted by: AKASH ALARCON MD Electronically signed by: AKASH ALARCON MD 10/24/191721 NAME: KATHARINE PEREZ [facility] REC#: [id number] PT STATUS: ADM Shay : 1940 PHYSICIAN: ADEN LEE DO ADMIT DATE: 10/24/19 Signed Date of Exam:10/26/19 CHEST 1 VIEW, AP/PA ONLY Indication: Shortness of breath Portable chest 5:12 AM There is a dual-chamber pacemaker. Right subclavian Port-A-Cath tip projects over the SVC. Heart size and pulmonary vascularity are normal. Lungs are clear. IMPRESSION: No acute abnormalities in the chest Dictated by: Dictated on workstation # [id number] Dict: 10/26/19 0732 Trans: 10/26/19 0733 [id number] Interpreted by: BRUCE LIM MD Electronically signed by: BRUCE LIM MD 10/26/19 0733 ECG Impression ECG Comment Atrial pacing A/P-Cardiology Assessment/Admission Diagnosis AMS, suspected CVA Acute on chronic diastolic CHF Syncope leading to dual ch Biotronik pacemaker implant by Dr Pozo in Mar 2018, functioning normally in DDDR mode on interrogation of May 2019 - followed by Dr. Pozo H/O dementia GI bleed during hosp of Mar 2018: Underwent EGD/Colonoscopy revealing esophageal ulcer was noted and biopsies done Left upper extremity axillary DVT and large hematoma following pacemaker and PICC line placement in Mar 2018 Previously on Eliquis for atrial fibrillation and axillary DVT - has not been taking for reasons unknown Anemia, mild thrombocytopenia, followed and treated by Dr Clifton Paroxysmal atrial fibrillation History of CVA with dysphasia, worse on 03-17-18, but has improved Echo of 03/18/18: LVEF 55-60%, AoV sclerosis w/o stenosis, PASP 30 mmHg Cardiac cath of 01/06/12: No angiographically significant coronary artery disease, normal global left ventricular systolic function with an ejection fraction of approximately 60 to 65%, elevated left ventricular end-diastolic pressure indicative of some degree of diastolic dysfunction of the left ventricle, and no significant mitral regurgitation Diabetes mellitus II Hypertension. Chronic bilateral leg swelling, likely related to venous insufficiency. Hyperlipidemia Chronic back pain and degenerative joint disease (including R hip and R knee) Carotid art disease. CT angio of neck in May 2018 reported 20-30% R ICA and 50- 69% L ICA stenoses H/O esophagitis, internal hemorrhoids and sm hiatal hernia seen at time of endoscopy in January [address] Fry Discussion and Recomendations AMS, suspected CVA - medical services managing Acute on chronic diastolic CHF - receiving diuretics Monitor lab and replace electrolytes as indicated H/O PAF for which she had previously been on chronc OAC with Eliquis which seems it was stopped recently apparently d/t anemia for which transfusions have been managed by Dr. Clifton Advise resumption of Eliquis 5mg BID if ok with Dr. Lee Monitor lab closely Further recs will be based on her hospital course We would like to thank Dr. Lee for this consult Clinical Quality Measures DVT/VTE Risk/Contraindication: Risk Factor Score Per Nursin RFS Level Per Nursing on Admit: 4+=Very High REBEL IVY Oct 26, 2019 08:59
[2019-10-26] MEDS ORDERED: GUAI120013 PO (09:08)
[2019-10-26] MEDS ORDERED: MULT-298 PO (09:08)
[2019-10-26] MEDS ORDERED: HYPR10GE4 OD (09:08)
[2019-10-26] MEDS ORDERED: PROP1.5D OD (09:08)
[2019-10-26] MEDS ORDERED: LORA10TA7 PO (09:08)
[2019-10-26] MEDS ORDERED: MICO90PO TP (10:05)
--- NOTE | 2019-10-26 10:07 | NUR ---
ENTERED THE MED REC USING THE TRANSFER/DISCHARGE REPORT FROM [facility] LOTRIMIN POWDER AND DIMETHICONE HAD NOTES TO DISCONTINUE AFTER AREA IS HEALED- I CALLED [facility] TO FIND OUT IF THEY ARE STILL BEING USED AND THEY WERE.
--- NOTE | 2019-10-26 10:19 | NUR ---
The oncology social worker from [facility] where pt resides called inquiring about pt condition. Checked with Christine AUSTIN and reviewed chart and advised of pt's current DNR status and current unresponsive condition.
[2019-10-26] MEDS ORDERED: FUROSEMIDE 40 MG/4 ML INJ (LASIX) IVP NR (12:00)
[2019-10-26] MEDS: RT-ALBUTEROL/IPRATROPIUM 3 ML (DUONEB) VIAL INH SCH ×4 (12:20→22:40)
--- NOTE | 2019-10-26 13:37 | Consultation-Cardiology ---
HPI-Cardiology Cardiology Consultation: Date of Consultation 10/26/19 Time Seen by a Provider: 09:15 Date of Admission Attending Physician Ba Cortez DO Admitting Physician Ba Cortez DO Consulting Physician PALOMO BOWER MD, MA, FACP, FACC, FSCAI, CCDS HPI: Chief Complaint: CC: Unresponsiveness HPI Ms. Arleth Delarosa is an 79 year old female admitted to 411 from the ED. She resides at a LT facility. She is currently sitting up in bed staring. She moans when touched, but otherwise is not interacting. Review of ED records reports she is total care, but was found to have decreased mental status yesterday. Therefore, she was brought to the ED. Review of Systems-Cardiology Review of Systems Constitutional: other (She is unrepsonsive and unable to answer any questions) LOL-Sdwtjl-Brlhwu Hx Patient Social History Marrital Status: Employed/Student: retired Smoking Status: Unknown if Ever Smoked 2nd Hand Smoke Exposure: No Recent Foreign Travel: No Recent Infectious Disease Expo: No Hospitalization with Isolation: Denies Immunizations Up To Date Tetanus Booster (TDap): More than 5yrs Date of Pneumonia Vaccine: Aug 07, 2016 Date of Influenza Vaccine: May 31, 2019 Past Medical History PMH As described under Assessment. Family Medical History Family Medical History: Documented family h/o mother and father having a stroke and CAD. Family History: Myocardial infarction Allergies and Home Medications Allergies Coded Allergies: Penicillins (Unverified Allergy, Unknown, 04/11/18) codeine (Unverified Allergy, Unknown, 04/11/18) aspirin (Verified Adverse Reaction, Unknown, NAUSEA, 04/11/18) Home Medications Acetaminophen 500 Mg Tablet, 500 MG PO TID, (Reported) Acetaminophen 500 Mg Tablet, 500 MG PO Q12H PRN for PAIN-MILD (1-4), (Reported) Atorvastatin Calcium 40 Mg Tablet, 40 MG PO HS, (Reported) C,E,Zinc,Copper 11/Dnhqh1c/Lut 1 Each Capsule, 1 EACH PO DAILY, (Reported) Dimethicone 226 Gm Lotion, 1 APPLIC TP BID, (Reported) APPLY TO BUTTTOCKS/SACRUM AREA Donepezil HCl 5 Mg Tablet, 5 MG PO HS, (Reported) Fish Oil/Dha/Epa 1 Each Capsule, 1,200 MG PO BID, (Reported) Furosemide 40 Mg Tablet, 40 MG PO DAILY, (Reported) Guaifenesin 1,200 Mg Tab.er.12h, 1,200 MG PO Q12H PRN for CONGESTION, (Reported) Hypromellose 10 Gm Gel..gram., 1 DROP OD HS, (Reported) Loratadine 10 Mg Tablet, 10 MG PO DAILY PRN for CONGESTION, (Reported) Magnesium Hydroxide 400 Mg/5 Ml Oral.susp, 30 MG PO Q8H PRN for CONSTIPATION-7TH LINE, (Reported) Magnesium Oxide 250 Mg Tablet, 250 MG PO TID, (Reported) Menthol 118 Ml Gel..ml., 1 APPLIC TP Q6H PRN for PAIN-BREAKTHROUGH, (Reported) Metformin HCl 500 Mg Tablet, 500 MG PO BID, (Reported) Metoprolol Succinate 50 Mg Tab.er.24h, 50 MG PO DAILY, (Reported) HOLD FOR SBP LESS THAN 100 Miconazole Nitrate 90 Gm Powder, 1 GM TP UD, (Reported) APPLY TO BILAT ABD FOLDS WITH EVERY SHIFT CHANGE Multivitamin/Iron/Folic Acid 1 Each Tablet, 1 EACH PO DAILY, (Reported) Omeprazole 40 Mg Capsule.dr, 40 MG PO DAILY, (Reported) Ondansetron HCl 8 Mg Tablet, 8 MG PO Q8H PRN for NAUSEA/VOMITING-1ST LINE, (Reported) Propylene Glycol 1.5 Ml Drops, 1 DROP OD BID, (Reported) Tetrahydrozoline HCl 15 Ml Drops, 2 DROPS OU Q6H PRN for DRY EYES, (Reported) Valsartan 320 Mg Tab, 320 MG PO DAILY, (Reported) HOLD FOR SBP LESS THEN 100 Patient Home Medication List Home Medication List Reviewed: Yes Physical Exam-Cardiology Physical Exam Vital Signs/I&O 10/26/19 10/26/19 10/26/19 10/26/19 04:25 04:53 05:00 06:47 Temp 36.2 Pulse 64 Resp 16 B/P (MAP) 193/66 (108) 178/90 (119) 143/72 (95) Pulse Ox 95 96 O2 Delivery Room Air Room Air 10/26/19 10/26/19 10/26/19 10/26/19 07:00 08:00 08:00 12:15 Temp 36.3 Pulse 67 61 60 Resp 18 B/P (MAP) 131/60 (83) Pulse Ox 96 O2 Delivery Room Air Room Air 10/26/19 10/26/19 12:22 12:30 Temp 36.4 Pulse 66 Resp 16 B/P (MAP) 141/65 (90) Pulse Ox 97 97 O2 Delivery Room Air Room Air 10/26/19 00:00 Output Total 550 ml Balance -550 ml Capillary Refill : Less Than 3 SecondsLess Than 3 Seconds Constitutional: No AAO x 3; well-developed, well-nourished HEENT: other (staring ) Neck: No carotid bruit; carotid pulses are 2 + bilaterally Respiratory: No accessory muscle use, No respiratory distress; chest expansion is symmetric, chest is bilaterally symmetric, other (good air entry) Cardiovascular: regular rate-rhythm, S1 and S2 Gastrointestinal: round, audible bowel sounds Extremities: other (generalized edema) Neurologic/Psychiatric: other (moans when touched, does not follow commands) Skin: No rash on exposed areas, No ulcerations on exposed areas Data Review Labs Laboratory Tests 10/25/19 17:51: Glucometer 120H 10/26/19 00:07: Glucometer 132H 10/26/19 04:52: White Blood Count 4.8, Red Blood Count 2.86L, Hemoglobin 9.2L, Hematocrit 29L, Mean Corpuscular Volume 100H, Mean Corpuscular Hemoglobin 32, Mean Corpuscular Hemoglobin Concent 32, Red Cell Distribution Width 15.8H, Platelet Count 98L, Mean Platelet Volume 9.5, Sodium Level 135, Potassium Level 4.7, Chloride Level 102, Carbon Dioxide Level 27, Anion Gap 6, Blood Urea Nitrogen 13, Creatinine 0.78, Estimat Glomerular Filtration Rate > 60, BUN/Creatinine Ratio 17, Glucose Level 109H, Calcium Level 9.0, Corrected Calcium 10.0, Total Bilirubin 0.9, Aspartate Amino Transf (AST/SGOT) 29, Alanine Aminotransferase (ALT/SGPT) 25, Alkaline Phosphatase 84, B-Type Natriuretic Peptide 358.2H, Total Protein 5.8L, Albumin 2.7L 10/26/19 12:19: Glucometer 109 Microbiology 10/24/19 Blood Culture - Preliminary, Resulted No growth 10/24/19 Urine Culture - Final, Complete NO GROWTH 10/24/19 Influenza Types A,B Antigen (JASIEL) - Final, Complete Laboratory Tests 10/25/19 03:50 10/26/19 04:52 A/P-Cardiology Assessment/Admission Diagnosis Unresponsiveness, CVA suspected Acute on chronic diastolic CHF Syncope leading to dual ch Biotronik pacemaker implant by Dr Pozo in Mar 2018, functioning normally in DDDR mode on interrogation of May 2019 - followed by Dr. Pozo H/O dementia GI bleed during hosp of Mar 2018: Underwent EGD/Colonoscopy revealing esophageal ulcer was noted and biopsies done Left upper extremity axillary DVT and large hematoma following pacemaker and PICC line placement in Mar 2018 Previously on Eliquis for atrial fibrillation and axillary DVT - has not been taking for reasons unknown Anemia, mild thrombocytopenia, followed and treated by Dr Clifton Paroxysmal atrial fibrillation History of CVA with dysphasia, worse on 03-17-18, but has improved Echo of 03/18/18: LVEF 55-60%, AoV sclerosis w/o stenosis, PASP 30 mmHg Cardiac cath of 01/06/12: No angiographically significant coronary artery disease, normal global left ventricular systolic function with an ejection fraction of approximately 60 to 65%, elevated left ventricular end-diastolic pressure indicative of some degree of diastolic dysfunction of the left ventricle, and no significant mitral regurgitation Diabetes mellitus II Hypertension. Chronic bilateral leg swelling, likely related to venous insufficiency. Hyperlipidemia Chronic back pain and degenerative joint disease (including R hip and R knee) Carotid art disease. CT angio of neck in May 2018 reported 20-30% R ICA and 50- 69% L ICA stenoses H/O esophagitis, internal hemorrhoids and sm hiatal hernia seen at time of endoscopy in January [address] Fry Discussion and Recomendations Diruetics, as needed and as tolerated Monitor lab and replace electrolytes as indicated H/O PAF for which she had previously been on chronic OAC with Eliquis, which it seems was stopped recently, apparently d/t anemia, by Dr. Clifton Advise resumption of Eliquis 5mg BID if ok with Dr. Cortez Monitor lab closely Further recs will be based on her hospital course We would like to thank Dr. Cortez for this consult Clinical Quality Measures DVT/VTE Risk/Contraindication: Risk Factor Score Per Nursin RFS Level Per Nursing on Admit: 4+=Very High PALOMO BOWER MD FACP FAC CCDS Oct 26, 2019 13:37
--- NOTE | 2019-10-26 15:08 | NUR ---
FAMILY AT BEDSIDE. PT REMAINS UNRESPONSIVE.
--- NOTE | 2019-10-26 15:43 | NUR ---
Pt's son and reamain at pt's bedside. They seem aware and accepting of pt's poor condition. Pt did open her eyes briefly but remains unresponsive. Pt's daughter has been here but had to return to work. Will continue to follow.
[2019-10-26] MEDS ORDERED: FUROSEMIDE 40 MG/4 ML INJ (LASIX) IVP SCH (21:00)
[2019-10-27] VITALS: BP 150/65
[2019-10-27] MEDS: inSUlin ASPART (NovoLOG) 1 UNIT/0.01 ML (CHARGE PER UNIT) SC SCH ×4 (01:43→16:23)
[2019-10-27] MEDS: RT-ALBUTEROL/IPRATROPIUM 3 ML (DUONEB) VIAL INH SCH ×6 (03:00→22:12)
[2019-10-27 04:00] VITALS: BP 114/63
[2019-10-27 05:07] LABS: BASOPHILS % (AUTO) 0 % (0-10); EOSINOPHILS # (AUTO) 0.1 10^3/uL (0.0-0.3); EOSINOPHILS % (AUTO) 3 % (0-10); HEMATOCRIT 25 % (35-52); HEMOGLOBIN 7.9 G/DL (11.5-16.0); LYMPHOCYTES # (AUTO) 0.7 X 10^3 (1.0-4.0); LYMPHOCYTES % (AUTO) 20 % (12-44); MEAN CORPUSCULAR HEMOGLOBIN 32 PG (25-34); MEAN CORPUSCULAR HGB CONC 32 G/DL (32-36); MEAN CORPUSCULAR VOLUME 100 FL (80-99); MEAN PLATELET VOLUME 9.7 FL (7.4-10.4); MONOCYTES # (AUTO) 0.6 X 10^3 (0.0-1.0); MONOCYTES % (AUTO) 16 % (0-12); NEUTROPHILS # (AUTO) 2.3 X 10^3 (1.8-7.8); NEUTROPHILS % (AUTO) 61 % (42-75); PLATELET COUNT 80 10^3/uL (130-400); RED CELL DISTRIBUTION WIDTH 15.7 % (10.0-14.5); WHITE BLOOD COUNT 3.8 10^3/uL (4.3-11.0)
[2019-10-27 05:29] LABS: ALANINE AMINOTRANSFERASE 20 U/L (0-55); ALBUMIN 2.2 GM/DL (3.2-4.5); ALKALINE PHOSPHATASE 70 U/L (40-136); BILIRUBIN,TOTAL 1.1 MG/DL (0.1-1.0); BUN/CREATININE RATIO 17; CALCIUM 8.5 MG/DL (8.5-10.1); CARBON DIOXIDE 28 MMOL/L (21-32); CHLORIDE 100 MMOL/L (98-107); CREATININE SERUM 0.86 MG/DL (0.60-1.30); GFR ESTIMATED > 60; GLUCOSE 85 MG/DL (70-105); POTASSIUM 3.8 MMOL/L (3.6-5.0); SODIUM 136 MMOL/L (135-145); TOTAL PROTEIN 4.9 GM/DL (6.4-8.2)
[2019-10-27 07:25] VITALS: BP 127/56
--- NOTE | 2019-10-27 07:49 | Diagnostic Imaging Report ---
INDICATION: Congestive heart failure. COMPARISON: October 26, 2019. TECHNIQUE: Single radiograph of the chest dated October 27, 2019. FINDINGS: Pacer device is present with the battery pack overlying the left chest. Postsurgical changes within the left shoulder. The cardiac silhouette is enlarged, though stable. Increasing central pulmonary vascular congestion. Right-sided Port-A-Cath is stable. Developing small right and minimal left veiling opacities. No pneumothorax. No acute osseous abnormality. IMPRESSION: Constellation of findings is felt to relate to developing congestive heart failure with increasing pulmonary vascular congestion and developing small right and trace left bibasilar pleural effusions. Dictated by: Dictated on workstation # [id number]
--- NOTE | 2019-10-27 07:55 | Progress Note ---
Subjective Time Seen by a Provider: 07:50 Subjective/Events-last exam Spoke to Clark about mother. Family wants to wait 24 hours before making decisions. Hemoglobin and hematocrit dropped to 7.9 and 25. Platelet count dropped to 80,000. Patient not communicating. Patient slightly improved with ice being open this morning. Patient awake but unresponsive to speech Focused Exam Lactate Level 10/24/19 11:50: Lactic Acid Level 2.49*H 10/24/19 14:12: Lactic Acid Level 1.72 10/25/19 03:50: Lactic Acid Level 0.96 Objective Exam Vital Signs Date Time Temp Pulse Resp B/P (MAP) Pulse Ox O2 Delivery O2 Flow Rate FiO2 10/27/19 07:25 37.0 88 20 127/56 (79) 96 Room Air 10/27/19 07:00 83 10/27/19 06:56 93 Room Air 10/27/19 04:00 36.6 88 20 114/63 (80) 97 Room Air 10/27/19 03:00 91 Room Air 10/27/19 01:00 80 10/27/19 00:00 36.6 67 22 150/65 (93) 96 Room Air 10/26/19 22:40 93 Room Air 10/26/19 21:54 138/74 (95) 10/26/19 20:00 Room Air 10/26/19 20:00 36.5 79 20 165/84 (111) 97 Room Air 10/26/19 19:00 80 10/26/19 16:00 36.4 76 18 151/85 (107) 96 Room Air 10/26/19 15:01 96 Room Air 10/26/19 12:30 36.4 66 16 141/65 (90) 97 Room Air 10/26/19 12:22 97 Room Air 10/26/19 12:15 60 10/26/19 08:00 36.3 61 18 131/60 (83) 96 Room Air 10/26/19 08:00 Room Air I & O 10/27/19 07:00 Intake Total 125 ml Output Total 3225 ml Balance -3100 ml Capillary Refill : Less Than 3 SecondsLess Than 3 Seconds General Appearance: No Apparent Distress, WD/WN HEENT: Normal ENT Inspection Neck: Normal Inspection Respiratory: No Accessory Muscle Use, No Respiratory Distress, Decreased Breath Sounds Cardiovascular: Regular Rate, Rhythm Gastrointestinal: non tender, soft Results Lab Laboratory Tests 10/27/19 05:00 Laboratory Tests 10/26/19 12:19: Glucometer 109 10/26/19 17:41: Glucometer 97 10/27/19 05:00: White Blood Count 3.8L, Red Blood Count 2.45L, Hemoglobin 7.9L, Hematocrit 25L, Mean Corpuscular Volume 100H, Mean Corpuscular Hemoglobin 32, Mean Corpuscular Hemoglobin Concent 32, Red Cell Distribution Width 15.7H, Platelet Count 80L, Mean Platelet Volume 9.7, Neutrophils (%) (Auto) 61, Lymphocytes (%) (Auto) 20, Monocytes (%) (Auto) 16H, Eosinophils (%) (Auto) 3, Basophils (%) (Auto) 0, Neutrophils # (Auto) 2.3, Lymphocytes # (Auto) 0.7L, Monocytes # (Auto) 0.6, Eosinophils # (Auto) 0.1, Basophils # (Auto) 0.0, Sodium Level 136, Potassium Level 3.8, Chloride Level 100, Carbon Dioxide Level 28, Anion Gap 8, Blood Urea Nitrogen 15, Creatinine 0.86, Estimat Glomerular Filtration Rate > 60, BUN/Crea tinine Ratio 17, Glucose Level 85, Calcium Level 8.5, Corrected Calcium 9.9, Total Bilirubin 1.1H, Aspartate Amino Transf (AST/SGOT) 27, Alanine Aminotransferase (ALT/SGPT) 20, Alkaline Phosphatase 70, B-Type Natriuretic Peptide 131.0H, Total Protein 4.9L, Albumin 2.2L Microbiology 10/24/19 Blood Culture - Preliminary, Resulted No growth 10/24/19 Urine Culture - Final, Complete NO GROWTH 10/24/19 Influenza Types A,B Antigen (JASIEL) - Final, Complete Assessment/Plan Assessment/Plan Assess & Plan/Chief Complaint Altered mental status. Diabetes. Area disease. Morbid obesity. Inability to communicate. Patient slowly improving. Hypertension. . 10/26/2019. Altered mental status continues. Patient nonresponsive. Congestive heart failure. Responded well to Lasix. Diabetes. Morbid obesity. Thrombocytopenia. Patient took a turn for the worst. Dementia. . 10/27/2019. Altered mental status. Nonverbal. Congestive heart failure better. Diabetes. Morbid obesity. Anemia worse. Thrombocytopenia worse. Dementia. Coronary artery disease. Hypertension history.. Family wanting to wait 24 hours before making decisions Clinical Quality Measures Admission Status Admission Dx Cude mental status change. Hypertension. Elevated lactic acid. Diabetes. Coronary artery disease. History of atrial fibrillation DVT/VTE Risk/Contraindication: Risk Factor Score Per Nursin RFS Level Per Nursing on Admit: 4+=Very High ADEN LEE DO Oct 27, 2019 07:55
[2019-10-27] MEDS: ENOXAPARIN 40 MG/0.4 ML (LOVENOX) SYR SC SCH ×2 (08:17→19:32)
[2019-10-27] MEDS: FUROSEMIDE 40 MG/4 ML INJ (LASIX) IVP SCH (08:18)
--- NOTE | 2019-10-27 09:47 | Progress Note - Cardiology ---
Cardiology SOAP Progress Note Subjective: Lying in bed. Remains unresponsive. Eyes open, resp even and non-labored Objective: I&O/Vital Signs 10/27/19 10/27/19 10/27/19 10/27/19 06:56 07:00 07:25 11:27 Temp 37.0 Pulse 83 88 Resp 20 B/P (MAP) 127/56 (79) Pulse Ox 93 96 91 O2 Delivery Room Air Room Air Room Air 10/27/19 10/27/19 12:02 15:39 Pulse 82 Pulse Ox 93 O2 Delivery Room Air 10/27/19 00:00 Intake Total 0 ml Output Total 2425 ml Balance -2425 ml Weight (Pounds): 281 Weight (Ounces): 0.0 Weight (Calculated Kilograms): 127.826081 Constitutional: No AAO x 3; well-developed, well-nourished Respiratory: No accessory muscle use, No respiratory distress; chest expansion is symmetric, chest is bilaterally symmetric, other (good air entry) Cardiovascular: regular rate-rhythm, S1 and S2 Gastrointestional: round, audible bowel sounds Extremities: other (generalized edema) Neurologic/Psychiatric: other (moans when touched, does not follow commands) Skin: No rash on exposed areas, No ulcerations on exposed areas Results/Procedures: Labs Laboratory Tests 10/26/19 17:41: Glucometer 97 10/27/19 05:00: White Blood Count 3.8L, Red Blood Count 2.45L, Hemoglobin 7.9L, Hematocrit 25L, Mean Corpuscular Volume 100H, Mean Corpuscular Hemoglobin 32, Mean Corpuscular Hemoglobin Concent 32, Red Cell Distribution Width 15.7H, Platelet Count 80L, Mean Platelet Volume 9.7, Neutrophils (%) (Auto) 61, Lymphocytes (%) (Auto) 20, Monocytes (%) (Auto) 16H, Eosinophils (%) (Auto) 3, Basophils (%) (Auto) 0, Neutrophils # (Auto) 2.3, Lymphocytes # (Auto) 0.7L, Monocytes # (Auto) 0.6, Eosinophils # (Auto) 0.1, Basophils # (Auto) 0.0, Sodium Level 136, Potassium Level 3.8, Chloride Level 100, Carbon Dioxide Level 28, Anion Gap 8, Blood Urea Nitrogen 15, Creatinine 0.86, Estimat Glomerular Filtration Rate > 60, BUN/Creatinine Ratio 17, Glucose Level 85, Calcium Level 8.5, Corrected Calcium 9.9, Total Bilirubin 1.1H, Aspartate Amino Transf (AST/SGOT) 27, Alanine Am inotransferase (ALT/SGPT) 20, Alkaline Phosphatase 70, B-Type Natriuretic Peptide 131.0H, Total Protein 4.9L, Albumin 2.2L 10/27/19 12:08: Glucometer 80 Microbiology 10/24/19 Blood Culture - Preliminary, Resulted No growth 10/24/19 Urine Culture - Final, Complete NO GROWTH 10/24/19 Influenza Types A,B Antigen (JASIEL) - Final, Complete A/P: Assessment: Unresponsiveness, CVA suspected Acute on chronic diastolic CHF Syncope leading to dual ch Biotronik pacemaker implant by Dr Pozo in Mar 2018, functioning normally in DDDR mode on interrogation of May 2019 - followed by Dr. Pozo H/O dementia GI bleed during hosp of Mar 2018: Underwent EGD/Colonoscopy revealing esophageal ulcer was noted and biopsies done Left upper extremity axillary DVT and large hematoma following pacemaker and PICC line placement in Mar 2018 Previously on Eliquis for atrial fibrillation and axillary DVT - has not been taking for reasons unknown Anemia, mild thrombocytopenia, followed and treated by Dr Clifton Paroxysmal atrial fibrillation History of CVA with dysphasia, worse on 03-17-18, but has improved Echo of 03/18/18: LVEF 55-60%, AoV sclerosis w/o stenosis, PASP 30 mmHg Cardiac cath of 01/06/12: No angiographically significant coronary artery disease, normal global left ventricular systolic function with an ejection fraction of approximately 60 to 65%, elevated left ventricular end-diastolic pressure indicative of some degree of diastolic dysfunction of the left ventricle, and no significant mitral regurgitation Diabetes mellitus II Hypertension. Chronic bilateral leg swelling, likely related to venous insufficiency. Hyperlipidemia Chronic back pain and degenerative joint disease (including R hip and R knee) Carotid art disease. CT angio of neck in May 2018 reported 20-30% R ICA and 50- 69% L ICA stenoses H/O esophagitis, internal hemorrhoids and sm hiatal hernia seen at time of endoscopy in January [address] Fry Plan: Diruetics, as needed and as tolerated Monitor lab and replace electrolytes as indicated H/O PAF for which she had previously been on chronic OAC with Eliquis, which it seems was stopped recently, apparently d/t anemia, by Dr. Clifton Advise resumption of Eliquis 5mg BID if ok with Dr. Cortez Monitor lab DNR Consider hospice consult REBEL IVY Oct 27, 2019 09:46
--- NOTE | 2019-10-27 10:20 | Pulmonary Progress Note ---
Subjective Time Seen by a Provider: 10:19 Subjective/Events-last exam No complications noted. Sepsis Event Evaluation Height, Weight, BMI Height: 5'5.00" Weight: 281lbs. 0.0oz. 127.289082ei; 46.56 BMI Method:Stated Focused Exam Lactate Level 10/24/19 11:50: Lactic Acid Level 2.49*H 10/24/19 14:12: Lactic Acid Level 1.72 10/25/19 03:50: Lactic Acid Level 0.96 Exam Exam Vital Signs Date Time Temp Pulse Resp B/P (MAP) Pulse Ox O2 Delivery O2 Flow Rate FiO2 10/27/19 07:25 37.0 88 20 127/56 (79) 96 Room Air 10/27/19 07:00 83 10/27/19 06:56 93 Room Air 10/27/19 04:00 36.6 88 20 114/63 (80) 97 Room Air 10/27/19 03:00 91 Room Air 10/27/19 01:00 80 10/27/19 00:00 36.6 67 22 150/65 (93) 96 Room Air 10/26/19 22:40 93 Room Air 10/26/19 21:54 138/74 (95) 10/26/19 20:00 Room Air 10/26/19 20:00 36.5 79 20 165/84 (111) 97 Room Air 10/26/19 19:00 80 10/26/19 16:00 36.4 76 18 151/85 (107) 96 Room Air 10/26/19 15:01 96 Room Air 10/26/19 12:30 36.4 66 16 141/65 (90) 97 Room Air 10/26/19 12:22 97 Room Air 10/26/19 12:15 60 I & O 10/27/19 07:00 Intake Total 125 ml Output Total 3225 ml Balance -3100 ml Height & Weight Height: 5'5.00" Weight: 281lbs. 0.0oz. 127.741001hr; 46.56 BMI Method:Stated General Appearance: No Apparent Distress, WD/WN HEENT: Normal ENT Inspection Neck: Normal Inspection Respiratory: No Accessory Muscle Use, No Respiratory Distress, Decreased Breath Sounds Cardiovascular: Regular Rate, Rhythm Capillary Refill: Less Than 3 Seconds Gastrointestinal: non tender, soft Extremity: Pedal Edema (SIGNIFICANT EDEMA TO ARMS AND LEGS--DIFFICULT TO DETERMINE THE DEGREE OF EDEMA DUE TO BODY HABITUS. ) Neurologic/Psychiatric: Other (KEEPS EYES CLOSED, MOANING CONSTANTLY. NO EFFORT TO MOVE ANY EXTREMITIES OR ANY PART OF BODY) Skin: Normal Color, Warm/Dry Results Lab Laboratory Tests 10/26/19 04:52 10/27/19 05:00 Assessment/Plan Assessment/Plan Acute respiratory distress -resolved -UA is negative -Improved with Lasix -BNP is elevated at 358 Acute bronchitis - SVN txs to Q 4 - Morbid obesity SKYLA FOUNTAIN DO Oct 27, 2019 10:20
--- NOTE | 2019-10-27 10:43 | Speech Therapy Progress Note ---
Therapy Progress Note Due to patient's level of function and inability to participate at this time, ST dysphagia evaluation orders are discharged. If patient becomes responsive ST may be able to complete evaluation. SOHAM CRUZ Oct 27, 2019 10:43
[2019-10-27] MEDS ORDERED: D5W 1000 ML IV SOLUTION 1,000 ML IV SCH (12:30)
--- NOTE | 2019-10-27 13:34 | Progress Note - Cardiology ---
Cardiology SOAP Progress Note Subjective: She is verbally unresponsive and unable to communicate Objective: I&O/Vital Signs 10/27/19 10/27/19 10/27/19 10/27/19 03:00 04:00 06:56 07:00 Temp 36.6 Pulse 88 83 Resp 20 B/P (MAP) 114/63 (80) Pulse Ox 91 97 93 O2 Delivery Room Air Room Air Room Air 10/27/19 10/27/19 10/27/19 07:25 11:27 12:02 Temp 37.0 Pulse 88 82 Resp 20 B/P (MAP) 127/56 (79) Pulse Ox 96 91 O2 Delivery Room Air Room Air 10/27/19 00:00 Intake Total 0 ml Output Total 2425 ml Balance -2425 ml Weight (Pounds): 281 Weight (Ounces): 0.0 Weight (Calculated Kilograms): 127.275301 Constitutional: No AAO x 3; well-developed, well-nourished Respiratory: No accessory muscle use, No respiratory distress; chest expansion is symmetric, chest is bilaterally symmetric, other (good air entry) Cardiovascular: regular rate-rhythm, S1 and S2 Gastrointestional: round, audible bowel sounds Extremities: other (generalized edema) Neurologic/Psychiatric: other (moans when touched, does not follow commands) Skin: No rash on exposed areas, No ulcerations on exposed areas Results/Procedures: Labs Laboratory Tests 10/26/19 17:41: Glucometer 97 10/27/19 05:00: White Blood Count 3.8L, Red Blood Count 2.45L, Hemoglobin 7.9L, Hematocrit 25L, Mean Corpuscular Volume 100H, Mean Corpuscular Hemoglobin 32, Mean Corpuscular Hemoglobin Concent 32, Red Cell Distribution Width 15.7H, Platelet Count 80L, Mean Platelet Volume 9.7, Neutrophils (%) (Auto) 61, Lymphocytes (%) (Auto) 20, Monocytes (%) (Auto) 16H, Eosinophils (%) (Auto) 3, Basophils (%) (Auto) 0, Neutrophils # (Auto) 2.3, Lymphocytes # (Auto) 0.7L, Monocytes # (Auto) 0.6, Eosinophils # (Auto) 0.1, Basophils # (Auto) 0.0, Sodium Level 136, Potassium Level 3.8, Chloride Level 100, Carbon Dioxide Level 28, Anion Gap 8, Blood Urea Nitrogen 15, Creatinine 0.86, Estimat Glomerular Filtration Rate > 60, BUN/Creatinine Ratio 17, Glucose Level 85, Calcium Level 8.5, Corrected Calcium 9.9, Total Bilirubin 1.1H, Aspartate Amino Transf (AST/SGOT) 27, Alanine Aminotransferase (ALT/SGPT) 20, Alkaline Phosphatase 70, B-Type Natriuretic Peptide 131.0H, Total Protein 4.9L, Albumin 2.2L 10/27/19 12:08: Glucometer 80 Microbiology 10/24/19 Blood Culture - Preliminary, Resulted No growth 10/24/19 Urine Culture - Final, Complete NO GROWTH 10/24/19 Influenza Types A,B Antigen (JASIEL) - Final, Complete Laboratory Tests 10/26/19 04:52 10/27/19 05:00 A/P: Assessment: Unresponsiveness, CVA suspected Acute on chronic diastolic CHF Syncope leading to dual ch Biotronik pacemaker implant by Dr Pozo in Mar 2018, functioning normally in DDDR mode on interrogation of May 2019 - followed by Dr. Pozo H/O dementia GI bleed during hosp of Mar 2018: Underwent EGD/Colonoscopy revealing esophageal ulcer was noted and biopsies done Left upper extremity axillary DVT and large hematoma following pacemaker and PICC line placement in Mar 2018 Previously on Eliquis for atrial fibrillation and axillary DVT - has not been taking for reasons unknown Anemia, mild thrombocytopenia, followed and treated by Dr Clifton. Worsening anemia, being managed by Dr Cortez Paroxysmal atrial fibrillation History of CVA with dysphasia, worse on 03-17-18, but has improved Echo of 03/18/18: LVEF 55-60%, AoV sclerosis w/o stenosis, PASP 30 mmHg Cardiac cath of 01/06/12: No angiographically significant coronary artery disease, normal global left ventricular systolic function with an ejection fraction of approximately 60 to 65%, elevated left ventricular end-diastolic pressure indicative of some degree of diastolic dysfunction of the left ventricle, and no significant mitral regurgitation Diabetes mellitus II Hypertension. Chronic bilateral leg swelling, likely related to venous insufficiency. Hyperlipidemia Chronic back pain and degenerative joint disease (including R hip and R knee) Carotid art disease. CT angio of neck in May 2018 reported 20-30% R ICA and 50- 69% L ICA stenoses H/O esophagitis, internal hemorrhoids and sm hiatal hernia seen at time of endoscopy in January [address] Fry Plan: Diruetics, as needed and as tolerated Monitor lab and replace electrolytes as indicated Consider transfusion. Anemia being managed by Dr Cortez. Advise resumption of Eliquis 5mg BID if ok with Dr. Cortez. Hold if there is concern regarding active bleeding Monitor lab DNR. Consider hospice consult PALOMO BOWER MD FACP FACC CCDS Oct 27, 2019 13:33
--- NOTE | 2019-10-27 14:23 | NUR ---
PALLIATIVE CARE RN was asked by nursing to look at patient. She is unresponsive and not improving. I have looked at the patient twice today. NO family has been in the room at either of the visits. This afternoon she does have her eyes open, however she does not respond to verbal or to tactile stimuli. Noted Dr Carbone has suggested that hospcie would be appropriate at this time. Will talk to Dr. Cortez. Addendum: 10/27/19 at 1515 by [place] RN This RN spoke with Dr. Cortez who reports that the daughter and son will be here bright and early to meet with him regarding patient progress and POC for discharge which may include hospice. I called the daughter who is the DPOA and is a friend of this RN. She indicates that that is what Dr. Cortez told her and she is not resistant to this thought. Will continue to follow and offer support as needed.
[2019-10-27 16:00] VITALS: BP 165/71
[2019-10-28] VITALS: BP 135/58
[2019-10-28] MEDS: RT-ALBUTEROL/IPRATROPIUM 3 ML (DUONEB) VIAL INH SCH ×2 (02:10→07:38)
[2019-10-28 03:17] LABS: HEMOGLOBIN 7.8 G/DL (11.5-16.0); MEAN PLATELET VOLUME 9.7 FL (7.4-10.4); WHITE BLOOD COUNT 3.7 10^3/uL (4.3-11.0)
[2019-10-28 03:37] LABS: ALANINE AMINOTRANSFERASE 19 U/L (0-55); ALBUMIN 2.3 GM/DL (3.2-4.5); ALKALINE PHOSPHATASE 71 U/L (40-136); BILIRUBIN,TOTAL 1.5 MG/DL (0.1-1.0); BUN/CREATININE RATIO 19; CALCIUM 8.8 MG/DL (8.5-10.1); CARBON DIOXIDE 28 MMOL/L (21-32); CHLORIDE 98 MMOL/L (98-107); CREATININE SERUM 0.83 MG/DL (0.60-1.30); GFR ESTIMATED > 60; GLUCOSE 86 MG/DL (70-105); POTASSIUM 3.6 MMOL/L (3.6-5.0); SODIUM 135 MMOL/L (135-145)
[2019-10-28] MEDS: inSUlin ASPART (NovoLOG) 1 UNIT/0.01 ML (CHARGE PER UNIT) SC SCH ×2 (05:47)
--- NOTE | 2019-10-28 07:41 | Diagnostic Imaging Report ---
INDICATION: Congestive heart failure. TECHNIQUE: Single view chest 4:03 AM. CORRELATION STUDY: 10/27/2019 FINDINGS: Left-sided pacemaker is present. Heart size enlarged. Vasculature remains prominent. Likely increased combination of effusion with edema at the lung bases. Superimposed infiltrate would be difficult to exclude. Right-sided Ezjiud-m-Hwqa catheter stable. Postop change of left shoulder. IMPRESSION: 1. Findings of congestive heart failure are again demonstrated. The severity of vascular congestion may be slightly improved. However, combination of effusion along with edema at the lung bases perhaps slightly more prominent. Dictated by: Dictated on workstation # [id number]
--- NOTE | 2019-10-28 07:41 | Progress Note ---
Subjective Time Seen by a Provider: 07:38 Subjective/Events-last exam She went back which since yesterday. Spoke to her children and they realize the situation. Family wants hospice. Family to speak to hospice this morning later on. Patient nonresponsive. Patient has eyes closed. Patient suctioned during the night Objective Exam Vital Signs Date Time Temp Pulse Resp B/P (MAP) Pulse Ox O2 Delivery O2 Flow Rate FiO2 10/28/19 02:10 93 Room Air 10/28/19 01:00 95 10/28/19 00:00 36.7 94 16 135/58 (83) 94 Room Air 10/27/19 22:12 92 Room Air 10/27/19 20:30 94 Room Air 10/27/19 19:04 94 Room Air 10/27/19 19:00 101 10/27/19 16:00 37.2 105 16 165/71 (102) 96 Room Air 10/27/19 15:39 93 Room Air 10/27/19 12:02 82 10/27/19 11:27 91 Room Air 10/27/19 08:00 Room Air I & O 10/28/19 07:00 Intake Total 0 ml Output Total 1350 ml Balance -1350 ml Capillary Refill : Less Than 3 SecondsLess Than 3 Seconds General Appearance: Other (Patient worse this morning) Neck: Normal Inspection Respiratory: No Accessory Muscle Use, No Respiratory Distress Cardiovascular: Irregularly Irregular Gastrointestinal: non tender, soft Results Lab Laboratory Tests 10/28/19 03:00 Laboratory Tests 10/27/19 12:08: Glucometer 80 10/27/19 17:13: Glucometer 102 10/28/19 01:08: Glucometer 93 10/28/19 03:00: White Blood Count 3.7L, Red Blood Count 2.46L, Hemoglobin 7.8L, Hematocrit 25L, Mean Corpuscular Volume 101H, Mean Corpuscular Hemoglobin 32, Mean Corpuscular Hemoglobin Concent 31L, Red Cell Distribution Width 16.0H, Platelet Count 86L, Mean Platelet Volume 9.7, Sodium Level 135, Potassium Level 3.6, Chloride Level 98, Carbon Dioxide Level 28, Anion Gap 9, Blood Urea Nitrogen 16, Creatinine 0.83, Estimat Glomerular Filtration Rate > 60, BUN/Creatinine Ratio 19, Glucose Level 86, Calcium Level 8.8, Corrected Calcium 10.2H, Total Bilirubin 1.5H, Aspartate Amino Transf (AST/SGOT) 28, Alanine Aminotransferase (ALT/SGPT) 19, Alkaline Phosphatase 71, Total Protein 5.0L, Albumin 2.3L Microbiology 10/24/19 Blood Culture - Preliminary, Resulted No growth 10/24/19 Urine Culture - Final, Complete NO GROWTH 10/24/19 Influenza Types A,B Antigen (JASIEL) - Final, Complete Assessment/Plan Assessment/Plan Assess & Plan/Chief Complaint Altered mental status. Diabetes. Area disease. Morbid obesity. Inability to communicate. Patient slowly improving. Hypertension. . 10/26/2019. Altered mental status continues. Patient nonresponsive. Congestive heart failure. Responded well to Lasix. Diabetes. Morbid obesity. Thrombocytopenia. Patient took a turn for the worst. Dementia. . 10/27/2019. Altered mental status. Nonverbal. Congestive heart failure better. Diabetes. Morbid obesity. Anemia worse. Thrombocytopenia worse. Dementia. Coronary artery disease. Hypertension history.. Family wanting to wait 24 hours before making decisions. . 10/28/2019. Patient terminal Family wants hospice.. Family to see hospice later this morning Clinical Quality Measures Admission Status Admission Dx Cude mental status change. Hypertension. Elevated lactic acid. Diabetes. Coronary artery disease. History of atrial fibrillation DVT/VTE Risk/Contraindication: Risk Factor Score Per Nursin RFS Level Per Nursing on Admit: 4+=Very High ADEN LEE DO Oct 28, 2019 07:41
[2019-10-28 08:00] VITALS: BP 105/55
[2019-10-28] MEDS: ENOXAPARIN 40 MG/0.4 ML (LOVENOX) SYR SC SCH (08:11)
[2019-10-28] MEDS: ONDANSETRON 4 MG/2 ML (SDV) Z0FRAN IV PRN ×2 (08:21→16:06)
[2019-10-28] MEDS: FUROSEMIDE 40 MG/4 ML INJ (LASIX) IVP SCH (08:21)
[2019-10-28] MEDS ORDERED: BISACODYL 10 MG SUPP (DULCOLAX) PR PRN (08:30)
[2019-10-28] MEDS ORDERED: RT-ALBUTEROL/IPRATROPIUM 3 ML (DUONEB) VIAL INH PRN (08:30)
[2019-10-28] MEDS ORDERED: ONDANSETRON 4 MG/2 ML (SDV) Z0FRAN IVP PRN (08:30)
[2019-10-28] MEDS ORDERED: ARTIFICAL TEARS 0.4 ML UNIT DOSE (REFRESH PLUS) OU PRN ×2 (08:30→17:15)
[2019-10-28] MEDS ORDERED: PROMETHAZINE INJ 25 MG/ML (PHENERGAN) AMP IVP PRN (08:30)
[2019-10-28] MEDS ORDERED: SALIVA STIMULANT MOUTH SPRAY (BIOTENE) 1.5 OZ MM PRN (08:30)
[2019-10-28] MEDS ORDERED: ACETAMINOPHEN 650 MG SUPP (TYLENOL) PR PRN (08:30)
[2019-10-28] MEDS: GLYCOPYRROLATE 0.2 MG/ML (ROBINUL) 2 ML VIAL IV PRN ×4 (08:55→22:36)
[2019-10-28] MEDS: morphine INJ 4 MG/ML 1 ML (VIAL/SYRINGE) IV PRN ×4 (08:55→18:04)
[2019-10-28] MEDS ORDERED: SCOPOLAMINE 1.5 MG (TRANSDERM-SCOP) PATCH TOP SCH (09:00)
--- NOTE | 2019-10-28 09:41 | NUR ---
Palliative Care RN had gotten a text from daughter this morning indicating that they had chosen hospice for the patient. I called Dr. Cortez and he indicated the same except he says he will likely pass quickly and we should let her stay in the hospital. I am inclined to agree with him and have gotten orders for [facility]. I updated the daughter Arleth about the POC for EOL care continued in the hospital. Orders have been entered and I have updated the RN.
--- NOTE | 2019-10-28 10:37 | Physician Query Clarification ---
PQ-Link Manifestation-Etiology Admission/Discharge Admission Date: Oct 26, 2019 at 07:36 Discharge Date: The medical record reflects the following clinical scenario: History/Risk Factors: Altered mental status History of CVA Clinical Findings: CT head without contrast 10/24-Findings: No intracranial hemorrhage, mass effect, hydrocephalus or extra-axial fluid collections. Subcortical low-attenuation changes in the left frontal lobe have not convincingly changed since the prior exam. No loss of the medina-white junction to suggest acute or subacute infarct. Osseous structures are intact. The paranasal sinuses and mastoids are clear. Treatment: IV Lovenox, Head CT. Question: Can you specify if the altered mental status is due to/associated with suspected CVA per Dr. Carbone? Please document a response in the Progress Note or Discharge Summary. 1. Yes - [Manifestation] is due to/associated with [etiology]. 2. No - [Manifestation] is not due to/associated with [etiology]. 3. Other, with explanation of the clinical findings. 4. Clinically undetermined, no explanation for the clinical findings. PHYSICIAN RESPONSE Manifestation due to/assoic: Yes Please remember a lack of response to the above will prompt a phone page by CDI/Coding staff. In responding to this query, please exercise your independent professional judgment. The purpose of this communication is to more accurately reflect the complexity of your patients condition. The fact that a question is asked does not imply that any particular answer is desired or expected. Thank you for your timely response to this clarification. Requestors name: Ashley Solis [facility] [place] Phone # ext [phone] or [phone] THIS PHYSICIAN QUERY FORM IS A PERMANENT PART OF THE MEDICAL RECORD ASHLEY SOLIS Oct 28, 2019 10:37 ADEN LEE DO Oct 28, 2019 11:45
--- NOTE | 2019-10-28 12:21 | Progress Note - Cardiology ---
Cardiology SOAP Progress Note Subjective: She is not able to communicate Objective: I&O/Vital Signs 10/28/19 10/28/19 10/28/19 10/28/19 01:00 02:10 07:38 08:00 Temp 37.1 Pulse 95 76 Resp 18 B/P (MAP) 105/55 (72) Pulse Ox 93 94 95 O2 Delivery Room Air Room Air Room Air 10/28/19 08:00 Pulse Ox 95 O2 Delivery Room Air 10/28/19 00:00 Intake Total 0 ml Output Total 1200 ml Balance -1200 ml Weight (Pounds): 281 Weight (Ounces): 0.0 Weight (Calculated Kilograms): 127.710912 Constitutional: well-developed, well-nourished, other (verbally unresponsive) Respiratory: chest expansion is symmetric, chest is bilaterally symmetric, other Cardiovascular: regular rate-rhythm, S1 and S2 Gastrointestional: round, audible bowel sounds Extremities: other Neurologic/Psychiatric: other (verbally unresponsive, moves limbs from time to time) Skin: No rash on exposed areas, No ulcerations on exposed areas Results/Procedures: Labs Laboratory Tests 10/27/19 17:13: Glucometer 102 10/28/19 01:08: Glucometer 93 10/28/19 03:00: White Blood Count 3.7L, Red Blood Count 2.46L, Hemoglobin 7.8L, Hematocrit 25L, Mean Corpuscular Volume 101H, Mean Corpuscular Hemoglobin 32, Mean Corpuscular Hemoglobin Concent 31L, Red Cell Distribution Width 16.0H, Platelet Count 86L, Mean Platelet Volume 9.7, Sodium Level 135, Potassium Level 3.6, Chloride Level 98, Carbon Dioxide Level 28, Anion Gap 9, Blood Urea Nitrogen 16, Creatinine 0.83, Estimat Glomerular Filtration Rate > 60, BUN/Creatinine Ratio 19, Glucose Level 86, Calcium Level 8.8, Corrected Calcium 10.2H, Total Bilirubin 1.5H, Aspartate Amino Transf (AST/SGOT) 28, Alanine Aminotransferase (ALT/SGPT) 19, Alkaline Phosphatase 71, Total Protein 5.0L, Albumin 2.3L 10/28/19 07:49: Glucometer 85 10/28/19 11:55: Glucometer 88 Microbiology 10/24/19 Blood Culture - Preliminary, Resulted No growth 10/24/19 Urine Culture - Final, Complete NO GROWTH 10/24/19 Influenza Types A,B Antigen (JASIEL) - Final, Complete Laboratory Tests 10/27/19 05:00 10/28/19 03:00 A/P: Assessment: Unresponsiveness, CVA suspected Chronic diastolic CHF, clinically compensated Syncope leading to dual ch Biotronik pacemaker implant by Dr Pozo in Mar 2018, functioning normally in DDDR mode on interrogation of May 2019 - followed by Dr. Pozo H/O dementia GI bleed during hosp of Mar 2018: Underwent EGD/Colonoscopy revealing esophageal ulcer was noted and biopsies done Left upper extremity axillary DVT and large hematoma following pacemaker and PICC line placement in Mar 2018 Previously on Eliquis for atrial fibrillation and axillary DVT - has not been taking for reasons unknown Anemia, mild thrombocytopenia, followed and treated by Dr Clifton. Worsening anemia, being managed by Dr Cortez Paroxysmal atrial fibrillation History of CVA with dysphasia, worse on 03-17-18, but has improved Echo of 03/18/18: LVEF 55-60%, AoV sclerosis w/o stenosis, PASP 30 mmHg Cardiac cath of 01/06/12: No angiographically significant coronary artery disease, normal global left ventricular systolic function with an ejection fraction of approximately 60 to 65%, elevated left ventricular end-diastolic pressure indicative of some degree of diastolic dysfunction of the left ventricle, and no significant mitral regurgitation Diabetes mellitus II Hypertension. Chronic bilateral leg swelling, likely related to venous insufficiency. Hyperlipidemia Chronic back pain and degenerative joint disease (including R hip and R knee) Carotid art disease. CT angio of neck in May 2018 reported 20-30% R ICA and 50- 69% L ICA stenoses H/O esophagitis, internal hemorrhoids and sm hiatal hernia seen at time of endoscopy in January [address] Fry Plan: Diruetics, as needed and as tolerated Monitor lab and replace electrolytes as indicated Consider transfusion. Anemia being managed by Dr Cortez. Advise resumption of Eliquis 5mg BID if ok with Dr. Cortez. Hold if there is concern regarding active bleeding Monitor lab Dr Dotson covering our service for the weekend. Please call if needed Clinical Quality Measures Type of Care: Type of Care: Comfort Measures PALOMO BOWER MD FACP FAC CCDS Oct 28, 2019 12:21
--- NOTE | 2019-10-28 12:55 | NUR ---
PALLIATIVE CARE RN in to see patient. [facility] He breathing is very shallow which is to be expected. I performed oral care by swabbing her mouth and applying Sedgwick's Bees wax lip balm. She did respond to this by opening eyes and moaning. She is still quite edematous but has good pulses and is warm. No mottling noted. She continues with IVF's at 5 ml, Ji is draining urine yellow in color. Will continue to keep patient comfortable and readdress discharge options if she survives through the weekend.
[2019-10-28] MEDS: LORazepam INJ 2 MG/ML (ATIVAN) VIAL IVP PRN ×2 (13:50→16:37)
[2019-10-29] MEDS: morphine INJ 4 MG/ML 1 ML (VIAL/SYRINGE) IV PRN ×2 (08:22→09:36)
[2019-10-29] MEDS: GLYCOPYRROLATE 0.2 MG/ML (ROBINUL) 2 ML VIAL IV PRN ×2 (08:23→14:18)
--- NOTE | 2019-10-29 08:24 | Progress Note ---
Subjective Subjective Date Seen by Provider: Oct 29, 2019 Time Seen by Provider: 09:00 PT IS AN 79 Y/O FEMALE WHO IS A PATIENT OF DR. 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 SHE HAS MENTAL STATUS CHANGES WITH SUSPECTED STROKE, CHRONIC ATRIAL FIBRILLATION, DIABETES, AND ADVANCED DEMENTIA OF VASCULAR ETIOLOGY. SHE IS UNRESPONSIVE VERBALLY TO TOUCH AND TACTILE STIMULI - WILL PARTIALLY OPEN EYES WHEN I TOUCH HER FACE, BUT DOES NOT SHOW ANY OTHER RESPONSE. HER FAMILY NOTES EXTENSIVE RATTLING WITH BREATHING, BUT FEEL LIKE IT IMPROVED WITH THE ROBINUL. Review of Systems ROS Unable to Obtain: UNABLE TO RESPOND DUE TO MENTAL STATUS Pulmonary: Other (RATTLING IN CHEST/THROAT PER FAMILY, INCREASED WORK OF BREATHING NOTED BY FAMILY) Gastrointestinal: No: Vomiting Genitourinary: Other (PLEITEZ IN PLACE) Neurological: Confusion All Other Systems Reviewed All Other Systems Reviewed: Yes (PT UNABLE TO RESPOND) Objective Exam Vital Signs Vital Signs - First Documented 10/24/19 10/24/19 11:40 16:34 Temp 35.6 Pulse 61 Resp 18 B/P (MAP) 145/103 (117) Pulse Ox 96 O2 Delivery Room Air FiO2 21 Capillary Refill : Less Than 3 SecondsLess Than 3 Seconds General Appearance: Moderate Distress (DUE TO BREATHING), Other (OBTUNDED) Eyes: Bilateral Eye Normal Inspection, Bilateral Eye PERRL Respiratory: Decreased Breath Sounds, Rhonci, Other (INCREASED WORK OF BREATHING WITH USE OF ACCESSORY MUSCLES) Cardiovascular: Irregularly Irregular Gastrointestinal: Non Tender, Soft; No Distended Rectal: Deferred Extremity: Pedal Edema (TRACE EDEMA ARMS AND HANDS , NO EDEMA LEGS) Neurologic/Psychiatric: Other (OBTUNDED, DOES NOT OPEN EYES TO VOICE, BUT SLIGHTLY OPENS EYES TO TOUCH, NO OTHER RESPONSE NOTED) Skin: Normal Color, Warm/Dry Results Lab Laboratory Tests 10/28/19 11:55: Glucometer 88 Microbiology 10/24/19 Blood Culture - Preliminary, Resulted No growth 10/24/19 Urine Culture - Final, Complete NO GROWTH 10/24/19 Influenza Types A,B Antigen (JASIEL) - Final, Complete Assessment/Plan Assessment/Plan Admission Dx ACUTE MENTAL STATUS CHANGES DIABETES MELLITUS HYPERTENSION ATRIAL FIBRILLATION DEMENTIA PANCYTOPENIA PT IS ON COMFORT CARE IN THE HOSPITAL -SHE IS NOT RESPONSIVE, BUT DOES APPEAR TO BE IN MORE DISTRESS THIS MORNING. I HAVE RECOMMENDED THAT SHE NEEDS TO BE ON SCHEDULED MEDICATION FOR RESPIRATORY COMFORT SINCE HER FAMILY IS NOT IN THE ROOM CONTINUOUSLY AND CANNOT ADVOCATE FOR HER TO BE GIVEN MEDICATION FOR HER SYMPTOMS. HER FAMILY WAS IN AGREEMENT WITH THIS RECOMMENDATION - I HAVE SCHEDULED MEDICATION FOLLOWS:] MORPHINE 1MG IV [id number] ATIVAN 0.5MG IV [id number] Clinical Quality Measures DVT/VTE Risk/Contraindication: Risk Factor Score Per Nursin RFS Level Per Nursing on Admit: 4+=Very High TONEY WILDE MD Oct 29, 2019 08:24
[2019-10-29] MEDS: LORazepam INJ 2 MG/ML (ATIVAN) VIAL IVP PRN (09:36)
--- NOTE | 2019-10-29 11:39 | Cardiology Progress Note ---
Subjective Date Seen by Provider: Oct 29, 2019 Time Seen by Provider: 11:37 Subjective/Events-last exam Patient is laying down in bed, comfortable, not responding to verbal stimuli Review of Systems General: Other (unable to provide review of systems) Objective-Cardiology Exam Last Set of Vital Signs Vital Signs 10/24/19 10/28/19 10/29/19 16:34 08:00 08:41 Temp 37.1 Pulse 76 Resp 18 B/P (MAP) 105/55 (72) Pulse Ox 95 O2 Delivery Room Air FiO2 21 Capillary Refill : Less Than 3 SecondsLess Than 3 Seconds I&O Intake and Output 10/29/19 00:00 Intake Total 1000 ml Output Total 700 ml Balance 300 ml Intake Oral 0 ml IV Total 1000 ml Output Urine Total 700 ml General: Other (not responding to verbal stimuli) HEENT: Atraumatic Neck: Supple Lungs: Clear to Auscultation, Normal Air Movement Heart: Regular Rate, Normal S1, Normal S2 Abdomen: Normal Bowel Sounds A/P-Cardiology Admission Diagnosis Change in mental status CVA Atrial fibrillation Assessment/Plan Change in mental status probably secondary to CVA, currently on comfort care Congestive heart failure, chronic left ventricular diastolic dysfunction, compensated, continue to monitor History of dementia History of GI bleed Anemia Paroxysmal atrial fibrillation. Patient is currently on comfort care continue to monitor Clinical Quality Measures DVT/VTE Risk/Contraindication: Risk Factor Score Per Nursin RFS Level Per Nursing on Admit: 4+=Very High CHRISTY GRANGER MD Oct 29, 2019 11:39 am
[2019-10-29] MEDS ORDERED: morphine INJ 4 MG/ML 1 ML (VIAL/SYRINGE) IVP SCH (12:00)
[2019-10-29] MEDS ORDERED: LORazepam INJ 2 MG/ML (ATIVAN) VIAL IVP SCH (14:00)
[2019-10-29 17:04] VITALS: BP 105/55
--- OUTSIDE RECORDS SUMMARY | 2019-10-31 04:26 | XMS REPORT | CCD ---
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 There are multiple immunizations systems within the [facility] ([facility] All immunizations and exemptions/refusals for this patient that are stored in the [facility]'s Clinical Data Repository (CDR) are included here, but this list is empty. Medications (C-CDA) Product Name RouteOfAdministra tion Timing Qty Order Date Order Qty Status Start Date Expiration Date Last Dispensed Date Discontinued Date Source Dosage ATORVASTATIN CALCIUM (ATORVASTATIN CALCI UM), 40 MG, TABLET, ORAL, KREMERS URBAN, 500 ea. BOTTLE [id number] 30 Active [id number] [facility] [address] [place] [address] Formulary Units FUROSEMIDE (FUROSEMIDE), 40MG, TABLET, ORAL, JOELLEN LA BS., 1000 ea. BOTTLE [id number] 30 Active [id number] [facility] [address] [place] [address] Formulary Units METFORMIN HCL (METFORMIN HCL), 500 MG, TABLET, ORAL, M YLAN, 500 ea. BOTTLE [id number] 60 Active [id number] [facility] [address] [place] [address] Formulary Units METOPROLOL SUCCINATE (metoprolol succina te), 25 MG, TAB ER 24H, ORAL, ZYDUS PHARMACEU, 100 ea. BOTTLE [id number] 30 Acti ve [id number] [facility] Se [facility] Facility [address] Formulary Units ATORVASTATIN CALCIUM (ATORVASTATIN CALCI UM), 40 MG, TABLET, ORAL, KREMERS URBAN, 500 ea. BOTTLE [id number] 30 Active [id number] [facility] [address] [place] [address] Formulary Units SPS (sodium polystyrene sulfonate/sorbit ol solution), 30 G/120ML, ENEMA, RECTAL, Rising PHARMA, INC, 120 ml SQUEEZ BTL [id number] 12 0 Active [id number] [facility] [address] [place] [address] Formulary Units FUROSEMIDE (furosemide), 40 MG, TABLET, ORAL, LEADING PHARMA, 1000 ea. BOTTLE [id number] 90 Active [id number] [facility] [address] [place] [address] Formulary Units FUROSEMIDE (furosemide), 40 MG, TABLET, ORAL, LEADING PHARMA, 1000 ea. BOTTLE [id number] 30 Active [id number] [facility] [address] [place] [address] Formulary Units ONDANSETRON ODT (ONDANSETRON), 8 MG, TAB RAPDIS, ORAL, CITRON PHARMA L, 30 ea. BLIST PACK [id number] 21 Active [id number] [facility] [address] [place] [address] Formulary Units VALSARTAN (valsartan), 320 MG, TABLET, ORAL, ALEMBIC P HARMAC, 90 ea. BOTTLE [id number] 30 Active [id number] [facility] [address] [place] [address] Formulary Units METFORMIN HCL (METFORMIN HCL), 500 MG, T ABLET, ORAL, AUROBINDO PHARM, 1000 ea. BOTTLE [id number] 60 Active [id number] [facility] [address] [place] [address] Formulary Units METOPROLOL SUCCINATE (METOPROLOL SUCCINA TE), 50 MG, TAB ER 24H, ORAL, 'S LAB, 500 ea. BOTTLE [id number] 30 Active [id number] [facility] [address] Formulary Units atorvastatin calcium ([employer]) 1000 TABLET in 1 BOTTLE [id number] 30 Active [id number] [facility] [address] [place] [address] Formulary Units DONEPEZIL HCL (DONEPEZIL HCL), 5 MG, TAB LET, ORAL, SOLCO HEALTHCAR, 30 ea. BOTTLE [id number] 30 Active [id number] [facility] [address] [place] [address] Formulary Units VALSARTAN (valsartan), 320 MG, TABLET, ORAL, ALEMBIC P HARMAC, 90 ea. BOTTLE [id number] 30 Active [id number] [facility] [address] [place] [address] Formulary Units METFORMIN HCL (METFORMIN HCL), 500 MG, T ABLET, ORAL, AUROBINDO PHARM, 1000 ea. BOTTLE [id number] 60 Active [id number] [facility] [address] Formulary Units METOPROLOL SUCCINATE (METOPROLOL SUCCINA TE), 50 MG, TAB ER 24H, ORAL, 'S LAB, 500 ea. BOTTLE [id number] 30 Active [id number] [facility] [address] [place] [address] Formulary Units VALSARTAN (valsartan), 320 MG, TABLET, ORAL, ALEMBIC P HARMAC, 90 ea. BOTTLE [id number] 30 Active [id number] [facility] [address] [place] [address] Formulary Units DONEPEZIL HCL (DONEPEZIL HCL), 5 MG, TAB LET, ORAL, [employer] HEALTHCAR, 30 ea. BOTTLE [id number] 30 Active [id number] [facility] [address] Formulary Units atorvastatin calcium ([employer]) 1000 TABLET in 1 BOTTLE [id number] 30 Active [id number] [facility] [address] [place] [address] Formulary Units CLOTRIMAZOLE-BETAMETHASONE (clotrimazole /betamethasone dipropionate), 1 %-0.05 %, CREAM (G), TOPICAL, GLENMARK PHARMA, 45 g TUBE [id number] 45 Active [id number] [facility] [address] [place] [address] Formulary Units CLOTRIMAZOLE-BETAMETHASONE (clotrimazole /betamethasone dipropionate), 1 %-0.05 %, CREAM (G), TOPICAL, GLENMARK PHARMA, 45 g TUBE [id number] 45 Active [id number] [facility] [address] [place] [address] Formulary Units VALSARTAN (valsartan), 160 MG, TABLET, ORAL, MACLEODS PHARMA, 90 ea. BOTTLE [id number] 30 Active [id number] [facility] [address] Formulary Units VALSARTAN (valsartan), 320 MG, TABLET, ORAL, MACLEODS PHARMA, 90 ea. BOTTLE [id number] 30 Active [id number] [facility] [address] Formulary Units METOPROLOL SUCCINATE (metoprolol succina te), 50 MG, TAB ER 24H, ORAL, [employer], 100 ea. BOTTLE [id number] 14 Active [id number] [facility] Se rv[facility] Facility [address] [place] [address] Formulary Units METOPROLOL SUCCINATE (metoprolol succina te), 50 MG, TAB ER 24H, ORAL, [employer], 100 ea. BOTTLE [id number] 30 Active [id number] [facility] [address] [place] [address] Formulary Units VALSARTAN (valsartan), 320 MG, TABLET, ORAL, MACLEODS PHARMA, 90 ea. BOTTLE [id number] 5 Active [id number] [facility] [address] [place] [address] Formulary Units VALSARTAN (VALSARTAN), 320 MG, TABLET, ORAL, MYLAN, 90 ea. BOTTL E [id number] 30 Active [id number] [facility] [address] [place] [address] Formulary Units NYAMYC (NYSTATIN), 808897/G, POWDER, TOPICAL, UPSHER GRIFFITH, 30 g JAR [id number] 30 Active [id number] [facility] [address] [place] [address] Formulary Units SULFAMETHOXAZOLE-TRIMETHOPRIM (SULFAMETH OXAZOLE/TRIMETHOPRIM), 800-160MG, TABLET, ORAL, AUROBINDO PHARM, 500 ea. BOTTLE [id number] 14 Active [id number] [facility] [address] [place] [address] Formulary Units ELIQUIS (APIXABAN), 2.5 MG, TABLET, ORAL, BMS PRIMARYC ARE, 60 ea. BOTTLE [id number] 8 Active [id number] [facility] [address] [place] [address] Formulary Units ELIQUIS (APIXABAN), 2.5 MG, TABLET, ORAL, BMS PRIMARYC ARE, 60 ea. BOTTLE [id number] 28 Active [id number] [facility] [address] [place] [address] Formulary Units ELIQUIS (APIXABAN), 2.5 MG, TABLET, ORAL, BMS PRIMARYC ARE, 60 ea. BOTTLE [id number] 28 Active [id number] [facility] [address] [place] [address] Formulary Units DONEPEZIL HCL (DONEPEZIL HCL), 5 MG, TAB LET, ORAL, [employer] HEALTHCAR, 1000 ea. BOTTLE [id number] 30 Active [id number] [facility] [address] Formulary Units TOLTERODINE TARTRATE (tolterodine tartra te), 2 MG, TABLET, ORAL, MACLEBaloonr PHARMA, 60 ea. BOTTLE [id number] 30 Active [id number] [facility] [address] [place] [address] Formulary Units METFORMIN HCL (METFORMIN HCL), 500 MG, TABLET, ORAL, M YLAN, 500 ea. BOTTLE [id number] 60 Active [id number] [facility] [address] [place] [address] Formulary Units DONEPEZIL HCL (DONEPEZIL HCL), 5 MG, TAB LET, ORAL, CADISTA PHARMAC, 90 ea. BOTTLE [id number] 5 Active [id number] [facility] [address] [place] [address] Formulary Units FUROSEMIDE (FUROSEMIDE), 40MG, TABLET, ORAL, JOELLEN LA BS., 1000 ea. BOTTLE [id number] 5 Active [id number] [facility] [address] [place] [address] Formulary Units ATORVASTATIN CALCIUM (ATORVASTATIN CALCI UM), 40 MG, TABLET, ORAL, MYLAN, 90 ea. BOTTLE [id number] 14 Active [id number] [facility] [address] [place] [address] Formulary Units METFORMIN HCL (METFORMIN HCL), 500 MG, TABLET, ORAL, M YLAN, 500 ea. BOTTLE [id number] 10 Active [id number] [facility] [address] [place] [address] Formulary Units FUROSEMIDE (FUROSEMIDE), 40MG, TABLET, ORAL, JOELLEN LA BS., 1000 ea. BOTTLE [id number] 30 Active [id number] [facility] [address] [place] [address] Formulary Units DONEPEZIL HCL (DONEPEZIL HCL), 5 MG, TAB LET, ORAL, CADISTA PHARMAC, 90 ea. BOTTLE [id number] 30 Active [id number] [facility] [address] [place] [address] Formulary Units METFORMIN HCL (METFORMIN HCL), 500 MG, TABLET, ORAL, M YLAN, 500 ea. BOTTLE [id number] 60 Active [id number] [facility] [address] [place] [address] Formulary Units ATORVASTATIN CALCIUM (ATORVASTATIN CALCI UM), 40 MG, TABLET, ORAL, MYLAN, 90 ea. BOTTLE [id number] 30 Active [id number] [facility] [address] [place] [address] Formulary Units FUROSEMIDE (furosemide), 40 MG, TABLET, ORAL, SOLCO HEALTHCAR, 1000 ea. BOTTLE [id number] 30 Active [id number] [facility] [address] [place] [address] Formulary Units DONEPEZIL HCL (DONEPEZIL HCL), 5 MG, TAB LET, ORAL, MACLEODS PHARMA, 90 ea. BOTTLE [id number] 30 Active [id number] [facility] [address] Formulary Units METFORMIN HCL (METFORMIN HCL), 500 MG, T ABLET, ORAL, AMNEAL PHARMACE, 500 ea. BOTTLE [id number] 60 Active [id number] [facility] [address] Formulary Units NYAMYC (NYSTATIN), 333949/G, POWDER, TOPICAL, UPSHER GRIFFITH, 30 g JAR [id number] 30 Active [id number] [facility] [address] [place] [address] Formulary Units NYAMYC (NYSTATIN), 204693/G, POWDER, TOPICAL, UPSHER GRIFFITH, 30 g JAR [id number] 30 Active [id number] [facility] [address] [place] [address] Formulary Units NYAMYC (NYSTATIN), 175452/G, POWDER, TOPICAL, UPSHER GRIFFITH, 30 g JAR [id number] 30 Active [id number] [facility] [address] [place] [address] Formulary Units TOLTERODINE TARTRATE ER (tolterodine tar trate), 2 MG, CAP ER 24H, ORAL, TORRENT PHARMAC, 30 ea. BOTTLE [id number] 30 Active [id number] Pharmacy Data Transaction Se ice Facility [address] Formulary Units TOLTERODINE TARTRATE ER (tolterodine tar trate), 2 MG, CAP ER 24H, ORAL, TORRENT PHARMAC, 30 ea. BOTTLE [id number] 30 Active [id number] Pharmacy Data Transaction Se [address] Formulary Units TOLTERODINE TARTRATE ER (tolterodine tar trate), 2 MG, CAP ER 24H, ORAL, TORRENT PHARMAC, 30 ea. BOTTLE [id number] 30 Active [id number] Pharmacy Data Transaction Se [facility] [address] [place] [address] Formulary Units NYAMYC (NYSTATIN), 033141/G, POWDER, TOPICAL, UPSHER GRIFFITH, 30 g JAR [id number] 30 Active [id number] [facility] [address] [place] [address] Formulary Units ALAMYC (NYSTATIN), 375335/G, POWDER, TOPICAL, UPSHER GRIFFITH, 30 g JAR [id number] 30 Active [id number] [facility] Facility [address] [place], [place] [address]ry Units SULFAMETHOXAZOLE-TRIMETHOPRIM (SULFAMETH OXAZOLE/TRIMETHOPRIM), 800-160MG, TABLET, ORAL, AUROBINDO PHARM, 500 ea. BOTTLE [id number] 3 Active [id number] Pharmacy Data T ransaction Service [address] Units HYDROCORTISONE (hydrocortisone), 2.5 %, CRM/PE ANGIE, TOPICAL, ANI PHARMACEUTI, 30 g TUBE [id number] 30 Active [id number] [facility] [address] [place] [address] Formulary Units CEFDINIR (CEFDINIR), 300MG, CAPSULE, ORAL, SANDOZ, 60 ea. BOTTLE [id number] 4 Active [id number] [facility] [address] [place] [address] Formulary Units This section includes all outpatient medications ordered within the last 15 months. Problem List (C-CDA) Name Status Onset Date Chronicity Code Source This section is an empty problems section. Procedures (C-CDA) Date/Time Procedure Type Provider Procedure Comment This section is an empty procedures section. Diagnostic tests and laboratory results (C-CDA) Collection Date/Time Order/Beltran el Test Result Ref Range Interpretation Source Order Comment Result Comment Result Interpretation Comment Specimen This section is an empty lab results sec tion. This section includes all laboratory results (except microbiology and pathology) for the past 15 months up to a maximum of 50 results panels. Vitals (C-CDA) Collection Date/Time Test Result Site Method Source This section is an empty vitals section This section is an empty vitals section. This section includes information documenting the patient's vital signs for the past 15 months up to a maximum of 50 sets. Height and weight values may have been measured or stated by the patient. History of encounters (C-CDA) Date/Time Encounter Type Reason for Visit Provider Disposition Source This section is an empty appointments/ad missions. This section is an empty appointments/admissions. This section includes appointments/admissions for the past 280 months. Insurance providers (C-CDA) Plan Type Plan Name Group No Source Relation to Subscriber This section is an empty insurance secti on. This section contains current third-constitution party (non-) insurance information as known by the Department of Defense. This information is empty. Social History (C-CDA) Tobacco Table Date/Time Provider Tobacco Use What type of tobacco product? Would you like to quit? Amount of tobacco used per day/duration? This section is an empty social history section. No Information Plan of Care (C-CDA) This section is an empty plan of care section. No Information Instructions (C-CDA) This section is an empty Instructions section. No Information Functional Status (C-CDA) This section is an empty functional status section. No Information
--- OUTSIDE RECORDS SUMMARY | 2019-10-31 04:30 | XMS REPORT | Continuity of Care Document ---
Author Organization Unknown Address Unknown Phone Unavailable Allergies Active Description Code Type Severity Reaction Onset Reported/Identified Relationship to Patient Clinical Status Yes aspirin [id number] Drug Allergy Unknown NAUSEA 04/11/2018 Yes codeine [id number] Drug Allergy Unknown N/A 04/11/2018 Yes Penicillins [id number] Drug Aller gy Unknown N/A 04/11/2018 Medications There is no data. Problems Date [...] OPEN WOUND OF FINGER 03/19/2011 Ot E000.8 OTH ER EXTERNAL CAUSE STATUS 03/19/2011 Ot E849.0 ACC IDENT IN HOME 03/19/2011 Ot E920.8 ACC -CUTTING INSTRUM NEC 01/06/2012 Ot 250.00 TIFFANI B BHAVIK WO COMPL, TYPE II OR UNSPEC TY 01/06/2012 Ot 272.4 HYPE RLIPIDEMIA NEC/NOS 01/06/2012 Ot 285.9 ANEM IA NOS 01/06/2012 Ot 287.5 THRO MBOCYTOPENIA NOS 01/06/2012 Ot 716.90 ART HROPATHY NOS- UNSPEC 01/06/2012 Ot 724.5 BACK ACHE NOS 01/06/2012 Ot 729.81 SWE LLING OF LIMB 01/06/2012 Ot 785.2 CARD IAC MURMURS NEC 01/06/2012 Ot 786.09 RES PIRATORY ABNORM NEC 01/06/2012 Ot V58.69 OTH MED,LT,CURRENT USE 01/09/2012 Ot 729.81 SWE LLING OF LIMB 01/09/2012 Ot 782.3 EDEMA 05/06/2013 IOANA TARIQ DO Ot 721.0 CERVICAL SPONDYLOSIS 05/06/2013 CHANDNI KATE IOANA Mai Ot V57.1 PHYSICAL THERAPY NEC 06/22/2013 IOANA TARIQ DO Ot 715.91 OSTEOARTHROS NOS-SHLDER 06/22/2013 CHANDNI KATE IOANA Mai Ot 721.0 CERVICAL SPONDYLOSIS 06/22/2013 CHANDNI KATE IOANA Mai Ot V57.1 PHYSICAL THERAPY NEC 08/13/2013 PROSPER FOWLER, AMADOR Rosario Ot 786.59 CHEST PAIN NEC 08/18/2013 IOANA TARIQ DO Ot 721.0 CERVICAL SPONDYLOSIS 08/18/2013 CHANDNI KATE IOANA Mai Ot V57.1 PHYSICAL THERAPY NEC 07/26/2014 ANNARICK DO ADEN Fani Ot V76.12 09/19/2014 BIJU REBEL L LOG GETTER Ot 250.00 09/19/2014 BIJU REBEL L LOG GETTER Ot 272.4 09/19/2014 BAIMA, REBEL L LOG GETTER Ot 401.9 02/27/2015 BAIHOSEA, REBEL L LOG GETTER Ot 250.00 02/27/2015 BAIMA, REBEL L LOG GETTER Ot 272.4 02/27/2015 BAIMA, REBEL L LOG GETTER Ot 401.9 02/27/2015 Ot 250.00 02/27/2015 LEANDROHOSEA, REBEL L LOG GETTER Ot 272.4 02/27/2015 JESUS KATE ADEN A Ot 250.00 02/27/2015 JESUS KATE ADEN Fani Ot 401.9 02/27/2015 JESUS KATE ADEN Mohr [...] 02/27/2015 REANNA FOWLER, BRUCE Rao Ot V06.1 [id number], COMBINED [ 03/06/2015 AJITH FOWLER, LATASHA Hummel Ot V58.32 ENCOUNTER FOR REMOVAL OF SUTURES 03/15/2015 NINILENSANDHU, ADEN Mohr Ot 250.00 03/15/2015 GELLENDER DO, ADEN Mohr Ot 401.9 03/15/2015 GELLENDER DO, ADEN Mohr Ot 782.3 07/02/2015 GELLENDER DO, ADEN Mohr Ot Z12.31 07/04/2015 Ot 789.01 [...] 575.8 07/04/2015 Ot 789.01 07/04/2015 REBEL IVY LOG GETTER Ot 272.4 07/04/2015 REBEL IVY LOG GETTER Ot 401.9 07/04/2015 REBEL IVY LOG GETTER Ot V58.69 07/04/2015 GELLENDER DO, ADEN Mohr Ot 786.50 07/04/2015 GELLENDER DO, ADEN Mohr Ot V76.12 07/04/2015 GELLENDER DO, ADEN A Ot 250.00 07/04/2015 GELLENDER DO, ADEN A Ot 272.4 07/04/2015 CHANDNI DO, IOANA Mai Ot 721.0 07/04/2015 BAIMA, REBEL L LOG GETTER Ot 397.0 07/04/2015 BAIMA, REBEL L LOG GETTER Ot 416.8 07/04/2015 BAIMA, REBEL L LOG GETTER Ot 424.0 07/04/2015 BAIMA, REBEL L LOG GETTER Ot 272.4 07/04/2015 BAIMA, REBEL L LOG GETTER Ot V58.69 07/04/2015 GELLENDER DO, ADEN Mohr Ot 786.50 07/04/2015 GELLENDER DO, ADEN Mohr Ot V15.88 07/04/2015 BAIMA, REBEL L LOG GETTER Ot 272.4 07/04/2015 GELLENDER DO, ADEN Mohr Ot 250.00 07/04/2015 GELLENDER DO, ADEN Mohr Ot 401.9 07/04/2015 GELLENDER DO, ADEN Mohr Ot V76.12 07/04/2015 BAIMA, REBEL L LOG GETTER Ot 250.00 07/04/2015 BAIMA, REBEL L LOG GETTER Ot 272.4 07/04/2015 BAIMA, REBEL L LOG GETTER Ot 401.9 07/04/2015 Ot 250.00 07/04/2015 BAIMA, REBEL L LOG GETTER Ot 272.4 07/04/2015 GELLENDER DO, ADEN A Ot 250.00 07/04/2015 GELLENDER DO, ADEN A Ot 401.9 07/04/2015 GELLENDER DO, ADEN Mohr Ot 782.3 07/04/2015 GELLENDER DO, ADEN A Ot Z12.31 07/18/2015 GELLENDER DO, ADEN A Ot Z12.31 08/01/2015 GELLENDER DO, ADEN A Ot E11.9 08/01/2015 GELLENDER DO, ADEN Mohr Ot I10 12/04/2015 Ot E11.9 12/04/2015 Ot E78.5 12/25/2015 Ot E11.9 TYPE 2 DIABETES MELLITUS WITHOUT COMPLIC 12/25/2015 Ot E78.5 HYPE RLIPIDEMIA, UNSPECIFIED 04/25/2016 CHANDNI DO, IOANA Mai Ot [...] Ot Z98.890 OTHER SPECIFIED POSTPROCEDURAL STATES 06/30/2016 ANNADER DO ADEN Mohr Ot Z12.31 ENCNTR SCREEN MAMMOGRAM FOR MALIGNANT NE 07/04/2016 Ot V76.12 OTH SCREEN MAMMO- MALIGN NEOPLASM OF VAN 07/04/2016 Ot 511.9 PLEU RAL EFFUSION NOS 07/04/2016 Ot 807.01 FRA CTURE ONE RIB- CLOSED 07/04/2016 Ot E000.8 OTH ER EXTERNAL CAUSE STATUS 07/04/2016 Ot E849.0 ACC IDENT IN HOME 07/04/2016 Ot E888.9 FAL L NOS 07/04/2016 Ot 287.5 THRO MBOCYTOPENIA NOS 07/04/2016 Ot 272.4 HYPE RLIPIDEMIA NEC/NOS 07/04/2016 Ot 401.9 HYPE RTENSION NOS 07/04/2016 Ot V72.63 PRE -PROCEDURAL LABORATORY EXAMINATION 07/04/2016 Ot V72.81 [id number] CARDIOVASCULAR 07/04/2016 Ot V72.83 EXA M PRE- OPERATIVE NEC 07/04/2016 Ot V74.8 SCRE EN-BACTERIAL DIS NEC 07/04/2016 Ot 250.00 TIFFANI B BHAVIK WO COMPL, TYPE II OR UNSPEC TY 07/04/2016 Ot 272.4 HYPE RLIPIDEMIA NEC/NOS 07/04/2016 Ot 401.9 HYPE RTENSION NOS 07/04/2016 Ot 786.09 RES PIRATORY ABNORM NEC 07/04/2016 Ot 250.00 TIFFANI B BHAVIK WO COMPL, TYPE II OR UNSPEC TY 07/04/2016 Ot 272.4 HYPE RLIPIDEMIA NEC/NOS 07/04/2016 Ot 401.9 HYPE RTENSION NOS 07/04/2016 Ot 786.09 RES PIRATORY ABNORM NEC 07/04/2016 Ot V76.12 OTH SCREEN MAMMO- MALIGN NEOPLASM OF VAN 07/04/2016 Ot 272.4 HYPE RLIPIDEMIA NEC/NOS 07/04/2016 Ot V58.69 OTH MED,LT,CURRENT USE 07/04/2016 Ot 789.01 ABD OMINAL PAIN, RIGHT UPPER QUADRANT 07/04/2016 Ot 575.8 DIS OF GALLBLADDER NEC 07/04/2016 Ot 789.01 ABD OMINAL PAIN, RIGHT UPPER QUADRANT 07/04/2016 REBEL IVY LOG GETTER Ot 272.4 HYPERLIPIDEMIA NEC/NOS 07/04/2016 REBEL IVY LOG GETTER Ot 401.9 HYPERTENSION NOS 07/04/2016 REBEL IVY LOG GETTER Ot V58.69 OTH MED,LT,CURRENT USE 07/04/2016 ADEN LEE DO Ot 786.50 CHEST PAIN NOS 07/04/2016 ADEN LEE DO Ot V76.12 OTH SCREEN MAMMO-MALIGN NEOPLASM OF VAN 07/04/2016 ADEN LEE DO Ot 250.00 DIAB BHAVIK WO COMPL, TYPE II OR UNSPEC TY 07/04/2016 ADEN LEE DO Ot 272.4 HYPERLIPIDEMIA NEC/NOS 07/04/2016 IOANA TARIQ DO Ot 721.0 CERVICAL SPONDYLOSIS 07/04/2016 REBEL IVY LOG GETTER Ot 397.0 TRICUSPID VALVE DISEASE 07/04/2016 REBEL IVY LOG GETTER Ot 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 NEC 07/04/2016 REBEL IVY LOG GETTER Ot 424.0 MITRAL VALVE DISORDER 07/04/2016 LEANDROREBEL JC LOG GETTER Ot 272.4 HYPERLIPIDEMIA NEC/NOS 07/04/2016 LEANDROREBEL JC LOG GETTER Ot V58.69 OTH MED,LT,CURRENT USE 07/04/2016 JESUS KATE ADEN Mohr Ot 786.50 CHEST PAIN NOS 07/04/2016 JESUS ADEN KATE Ot V15.88 HISTORY OF FALL 07/04/2016 LEANDROHOSEA REBEL Rafael LOG GETTER Ot 272.4 HYPERLIPIDEMIA NEC/NOS 07/04/2016 JESUS ADEN KATE Ot 250.00 DIAB BHAVIK WO COMPL, TYPE II OR UNSPEC TY 07/04/2016 NINIADEN COATS DO Ot 401.9 HYPERTENSION NOS 07/04/2016 NINIADEN COATS DO Ot V76.12 OTH SCREEN MAMMO-MALIGN NEOPLASM OF VAN 07/04/2016 LEANDROHOSEA REBEL Hall LOG GETTER Ot 250.00 DIAB BHAVIK WO COMPL, TYPE II OR UNSPEC TY 07/04/2016 LEANDROHOSEA REBEL Rafael LOG GETTER Ot 272.4 HYPERLIPIDEMIA NEC/NOS 07/04/2016 LEANDROREBEL JC LOG GETTER Ot 401.9 HYPERTENSION NOS 07/04/2016 Ot 250.00 TIFFANI B BHAVIK WO COMPL, TYPE II OR UNSPEC TY 07/04/2016 BIJU REBEL Rafael LOG GETTER Ot 272.4 HYPERLIPIDEMIA NEC/NOS 07/04/2016 JESUS ADEN KATE Ot 250.00 DIAB BHAVIK WO COMPL, TYPE II OR UNSPEC TY 07/04/2016 ADEN LEE DO Ot 401.9 HYPERTENSION NOS 07/04/2016 ADEN LEE DO Ot 782.3 EDEMA 07/04/2016 ADEN LEE DO Ot Z12.31 ENCNTR SCREEN [...] DIABETES MELLITUS WITHOUT COMPLIC 07/04/2016 Ot E78.5 HYPE RLIPIDEMIA, UNSPECIFIED 07/04/2016 GELLENDER DO, ADEN Mohr Ot E11.9 TYPE 2 DIABETES MELLITUS WITHOUT COMPLIC 07/04/2016 GELLENDER DO, ADEN Mohr Ot E78.5 HYPERLIPIDEMIA, UNSPECIFIED 07/04/2016 GELLENDER DO, ADEN Mohr Ot D69.6 THROMBOCYTOPENIA, UNSPECIFIED 07/04/2016 GELLENDER DO, [...] E78.5 HYPERLIPIDEMIA, UNSPECIFIED 08/29/2016 GELLENDER DO, ADEN Fani Ot I10 ESSENTIAL (PRIMARY) HYPERTENSION 09/18/2016 GELLENDER DO, ADEN Mohr Ot E11.9 TYPE 2 DIABETES MELLITUS WITHOUT COMPLIC 09/18/2016 GELLENDER DO, ADEN Mohr Ot E78.5 HYPERLIPIDEMIA, UNSPECIFIED 09/18/2016 GELLENDER DO, ADEN Fani Ot I10 ESSENTIAL (PRIMARY) HYPERTENSION 10/07/2016 AMADOR CHENG MD Ot E11.9 TYPE 2 DIABETES MELLITUS WITHOUT COMPLIC 10/07/2016 AMADOR CHENG MD, Ot I10 ESSENTIAL (PRIMARY) HYPERTENSION 10/07/2016 AMADOR CHENG MD Ot S80.02XA CONTUSION OF LEFT KNEE, INITIAL ENCOUNTE 10/07/2016 AMADOR CHENG MD, Ot S89.92XA UNSPECIFIED INJURY OF LEFT LOWER LEG, IN 10/07/2016 AMADOR CHENG MD, Ot W01.0XXA FALL SAME LEV FROM SLIP/TRIP W/O STRIKE 10/07/2016 AMADOR CHENG MD Ot Y92.009 [facility] PL[facility] IN [facility] NON-INSTITUT (PRIVATE 10/07/2016 AMADOR CHENG MD, Ot Y99.8 OTHER EXTERNAL CAUSE STATUS 10/07/2016 AMADOR CHENG MD, Ot Z79.84 [facility] (CURRENT) USE OF ORAL HYPOGLYC 10/07/2016 AMADOR CHENG MD Ot Z79.899 OTHER [facility] (CURRENT) DRUG THERAPY 10/07/2016 AMADOR CHENG MD Ot Z96.653 PRESENCE OF ARTIFICIAL KNEE JOINT, BILAT 10/07/2016 Ot V76.12 OTH SCREEN MAMMO- MALIGN NEOPLASM OF VAN 10/07/2016 Ot 511.9 PLEU RAL EFFUSION NOS 10/07/2016 Ot 807.01 FRA CTURE ONE RIB- CLOSED 10/07/2016 Ot E000.8 OTH ER EXTERNAL CAUSE STATUS 10/07/2016 Ot E849.0 ACC IDENT IN HOME 10/07/2016 Ot E888.9 FAL L NOS 10/07/2016 Ot 287.5 THRO MBOCYTOPENIA NOS 10/07/2016 Ot 272.4 HYPE RLIPIDEMIA NEC/NOS 10/07/2016 Ot 401.9 HYPE RTENSION NOS 10/07/2016 Ot V72.63 PRE -PROCEDURAL LABORATORY EXAMINATION 10/07/2016 Ot V72.81 [id number] CARDIOVASCULAR 10/07/2016 Ot V72.83 EXA M PRE- OPERATIVE NEC 10/07/2016 Ot V74.8 SCRE EN-BACTERIAL DIS NEC 10/07/2016 Ot 250.00 TIFFANI B BHAVIK WO COMPL, TYPE II OR UNSPEC TY 10/07/2016 Ot 272.4 HYPE RLIPIDEMIA NEC/NOS 10/07/2016 Ot 401.9 HYPE RTENSION NOS 10/07/2016 Ot 786.09 RES PIRATORY ABNORM NEC 10/07/2016 Ot 250.00 TIFFANI B BHAVIK WO COMPL, TYPE II OR UNSPEC TY 10/07/2016 Ot 272.4 HYPE RLIPIDEMIA NEC/NOS 10/07/2016 Ot 401.9 HYPE RTENSION NOS 10/07/2016 Ot 786.09 RES PIRATORY ABNORM NEC 10/07/2016 Ot V76.12 OTH SCREEN MAMMO- MALIGN NEOPLASM OF VAN 10/07/2016 Ot 272.4 HYPE RLIPIDEMIA NEC/NOS 10/07/2016 Ot V58.69 OTH MED,LT,CURRENT USE 10/07/2016 Ot 789.01 ABD OMINAL PAIN, RIGHT UPPER QUADRANT 10/07/2016 Ot 575.8 DIS OF GALLBLADDER NEC 10/07/2016 Ot 789.01 ABD OMINAL PAIN, RIGHT UPPER QUADRANT 10/07/2016 REBEL IVY L LOG GETTER Ot 272.4 HYPERLIPIDEMIA NEC/NOS 10/07/2016 BAIMA REBEL L LOG GETTER Ot 401.9 HYPERTENSION NOS 10/07/2016 BAIHOSEA REBEL L LOG GETTER Ot V58.69 OTH MED,LT,CURRENT USE 10/07/2016 ADEN LEE DO Ot 786.50 CHEST PAIN NOS 10/07/2016 ADEN LEE DO Ot V76.12 OTH SCREEN MAMMO-MALIGN NEOPLASM OF VAN 10/07/2016 ADEN LEE DO Ot 250.00 DIAB BHAVIK WO COMPL, TYPE II OR UNSPEC TY 10/07/2016 JESUS KATE, ADEN Mohr Ot 272.4 HYPERLIPIDEMIA NEC/NOS 10/07/2016 IOANA TARIQ DO Ot 721.0 CERVICAL SPONDYLOSIS 10/07/2016 BAIMA, REBEL L LOG GETTER Ot 397.0 TRICUSPID VALVE DISEASE 10/07/2016 BAIMA REBEL L LOG GETTER Ot 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 NEC 10/07/2016 BAIMA, REBEL L LOG GETTER Ot 424.0 MITRAL VALVE DISORDER 10/07/2016 BAIMA, REBEL L LOG GETTER Ot 272.4 HYPERLIPIDEMIA NEC/NOS 10/07/2016 BAIHOSEA REBEL L LOG GETTER Ot V58.69 OTH MED,LT,CURRENT USE 10/07/2016 ADEN LEE DO Ot 786.50 CHEST PAIN NOS 10/07/2016 ADEN LEE DO Ot V15.88 HISTORY OF FALL 10/07/2016 REBEL IVY L LOG GETTER Ot 272.4 HYPERLIPIDEMIA NEC/NOS 10/07/2016 ADEN LEE DO Ot 250.00 DIAB BHAVIK WO COMPL, TYPE II OR UNSPEC TY 10/07/2016 ADEN LEE DO Ot 401.9 HYPERTENSION NOS 10/07/2016 ADEN LEE DO Ot V76.12 OTH SCREEN MAMMO-MALIGN NEOPLASM OF VAN 10/07/2016 BAIMA, REBEL L LOG GETTER Ot 250.00 DIAB BHAVIK WO COMPL, TYPE II OR UNSPEC TY 10/07/2016 BAIMA, REBEL L LOG GETTER Ot 272.4 HYPERLIPIDEMIA NEC/NOS 10/07/2016 BAIMA, REBEL L LOG GETTER Ot 401.9 HYPERTENSION NOS 10/07/2016 Ot 250.00 TIFFANI B BHAVIK WO COMPL, TYPE II OR UNSPEC TY 10/07/2016 REBEL IVY LOG GETTER Ot 272.4 HYPERLIPIDEMIA NEC/NOS 10/07/2016 GELLENDER DO, ADEN Mohr Ot 250.00 DIAB BHAVIK WO COMPL, TYPE II OR UNSPEC TY 10/07/2016 GELLENDER DO, ADEN Mohr Ot 401.9 HYPERTENSION NOS 10/07/2016 GELLENDER DO, ADEN Mohr Ot 782.3 EDEMA 10/07/2016 GELLENDER DO, ADEN Fani Ot Z12.31 ENCNTR SCREEN MAMMOGRAM FOR MALIGNANT NE 10/07/2016 CHANDNI DO, OIANA Mai Ot M16.12 UNILATERAL PRIMARY OSTEOARTHRITIS, LEFT 10/07/2016 CHANDNI DO, IOANA Mai Ot M47.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, LUMBAR REGION 10/07/2016 GELLENDER DO, ADEN Mohr Ot E11.9 TYPE 2 DIABETES MELLITUS WITHOUT COMPLIC 10/07/2016 GELLENDER DO, ADEN Mohr Ot I10 ESSENTIAL (PRIMARY) HYPERTENSION 10/07/2016 Ot E11.9 TYPE 2 DIABETES MELLITUS WITHOUT COMPLIC 10/07/2016 Ot E78.5 HYPE RLIPIDEMIA, UNSPECIFIED 10/07/2016 GELLENDER DO, ADEN Mohr Ot E11.9 TYPE 2 DIABETES MELLITUS WITHOUT COMPLIC 10/07/2016 GELLENDER DO, ADEN Mohr Ot E78.5 HYPERLIPIDEMIA, UNSPECIFIED 10/07/2016 GELLENDER DO, ADEN Mohr Ot D69.6 THROMBOCYTOPENIA, UNSPECIFIED 10/07/2016 GELLENDER DO, ADEN Fani Ot D72.819 DECREASED WHITE BLOOD CELL COUNT, UNSPEC 10/07/2016 GELLENDER DO, ADEN Mohr Ot Z12.31 ENCNTR SCREEN MAMMOGRAM FOR MALIGNANT NE 10/07/2016 GELLENDER DO, ADEN Mohr Ot E11.9 TYPE 2 DIABETES MELLITUS WITHOUT COMPLIC 10/07/2016 GELLENDER DO, ADEN Mohr Ot E78.5 HYPERLIPIDEMIA, UNSPECIFIED 10/07/2016 GELLENDER DO, ADEN Mohr Ot I10 ESSENTIAL (PRIMARY) HYPERTENSION 10/08/2016 PROSPER FOWLER, AMADOR Rosario Ot E11.9 TYPE 2 DIABETES MELLITUS WITHOUT COMPLIC 10/08/2016 PROSPER FOWLER, AMADOR Rosario Ot I10 ESSENTIAL (PRIMARY) HYPERTENSION 10/08/2016 PROSPER FOWLER, AMADOR Rosario Ot S80.02XA CONTUSION OF LEFT KNEE, INITIAL ENCOUNTE 10/08/2016 PROSPER FOWLER, AMADOR Rosario Ot S89.92XA UNSPECIFIED INJURY OF LEFT LOWER LEG, IN 10/08/2016 AMADOR CHENG MD Ot W01.0XXA FALL SAME LEV FROM SLIP/TRIP W/O STRIKE 10/08/2016 AMADOR CHENG MD Ot Y92.[address] IN [facility] NON-INSTITUT (PRIVATE 10/08/2016 AMADOR CHENG MD Ot Y99.8 OTHER EXTERNAL CAUSE STATUS 10/08/2016 AMADOR CHENG MD, Ot Z79.84 [facility] (CURRENT) USE OF ORAL HYPOGLYC 10/08/2016 AMADOR CHENG MD, Ot Z79.899 OTHER [facility] (CURRENT) DRUG THERAPY 10/08/2016 AMADOR CHENG MD Ot Z96.653 PRESENCE OF ARTIFICIAL KNEE JOINT, BILAT 10/09/2016 REBEL IVY LOG GETTER Ot 250.00 DIAB BHAVIK WO COMPL, TYPE II OR UNSPEC TY 10/09/2016 REBEL IVY LOG GETTER Ot 272.4 HYPERLIPIDEMIA NEC/NOS 10/09/2016 BIJU REBEL L LOG GETTER Ot 401.9 HYPERTENSION NOS 10/09/2016 Ot 250.00 TIFFANI B BHAVIK WO COMPL, TYPE II OR UNSPEC TY 10/09/2016 REBEL IVY LOG GETTER Ot 272.4 HYPERLIPIDEMIA NEC/NOS 10/09/2016 ADEN LEE DO Ot 250.00 DIAB BHAVIK WO COMPL, TYPE II OR UNSPEC TY 10/09/2016 ADEN LEE DO Ot 401.9 HYPERTENSION NOS 10/09/2016 ADEN LEE DO Ot 782.3 EDEMA 10/09/2016 ADEN LEE DO Ot Z12.31 ENCNTR SCREEN [...] DIABETES MELLITUS WITHOUT COMPLIC 10/09/2016 Ot E78.5 HYPE RLIPIDEMIA, UNSPECIFIED 10/09/2016 GELLENDER DO, ADEN Mohr Ot E11.9 TYPE 2 DIABETES MELLITUS WITHOUT COMPLIC 10/09/2016 GELLENDER DO, ADEN Mohr Ot E78.5 HYPERLIPIDEMIA, UNSPECIFIED 10/09/2016 GELLENDER DO, ADEN Mohr Ot D69.6 THROMBOCYTOPENIA, UNSPECIFIED 10/09/2016 GELLENDER DO, ADEN Mohr Ot D72.819 DECREASED WHITE BLOOD CELL COUNT, UNSPEC 01/02/2017 CHANDNI DO, IOANA Mai Ot M47.816 SPONDYLOSIS W/O MYELOPATHY OR RADICULOPA 01/14/2017 GELLENDER DO, ADEN Mohr Ot E05.90 THYROTOXICOSIS, UNSP WITHOUT THYROTOXIC 01/14/2017 GELLENDER DO, ADEN Mohr Ot E11.9 TYPE 2 DIABETES MELLITUS WITHOUT COMPLIC 01/14/2017 GELLENDER DO, ADEN Mohr Ot I10 ESSENTIAL (PRIMARY) HYPERTENSION 01/20/2017 [facility]IT[facility]END[facility] DO, ADEN Mohr Ot D69.6 THROMBOCYTOPENIA, UNSPECIFIED 01/22/2017 CHANDNI DO, IOANA Mia Ot M47.816 SPONDYLOSIS W/O MYELOPATHY OR RADICULOPA 02/11/2017 GELLENDER DO, ADEN Mohr Ot D69.6 THROMBOCYTOPENIA, UNSPECIFIED 07/26/2017 TWYLA VALVERDE APRN Ot E11 .9 TYPE 2 DIABETES MELLITUS WITHOUT COMPLIC 07/26/2017 TWYLA VALVERDE APRN Ot E78.00 PURE HYPERCHOLESTEROLEMIA, UNSPECIFIED 07/26/2017 TWYLA VALVERDE APRN Ot F03.90 UNSPECIFIED DEMENTIA WITHOUT BEHAVIORAL 07/26/2017 TWYLA VALVERDE MAILER APPRENTICE Ot I10 ESSENTIAL (PRIMARY) HYPERTENSION 07/26/2017 TWYLA VALVERDE APRN Ot M25.511 PAIN IN RIGHT SHOULDER 07/26/2017 TWYLA VALVERDE APRN Ot M25.561 PAIN IN RIGHT KNEE 07/26/2017 TWYLA VALVERDE APRN Ot V00.811A FALL FROM MOVING WHEELCHAIR (POWERED), I 07/26/2017 TWYLA VALVERDE APRN Ot Y92.[address] IN RESIDENTIAL PLACE 07/26/2017 TWYLA VALVERDE APRN Ot Z79.84 CLIENT SERVICES DIRECTOR (CURRENT) USE OF ORAL HYPOGLYC 07/26/2017 TWYLA VALVERDE MAILER APPRENTICE Ot Z86.718 PERSONAL HISTORY OF OTHER VENOUS THROMBO 07/26/2017 Ot V76.12 OTH SCREEN MAMMO- MALIGN NEOPLASM OF VAN 07/26/2017 Ot 272.4 HYPE RLIPIDEMIA NEC/NOS 07/26/2017 Ot V58.69 OTH MED,LT,CURRENT USE 07/26/2017 Ot 789.01 ABD OMINAL PAIN, RIGHT UPPER QUADRANT 07/26/2017 Ot 575.8 DIS OF GALLBLADDER NEC 07/26/2017 Ot 789.01 ABD OMINAL PAIN, RIGHT UPPER QUADRANT 07/26/2017 BAIHOSEA, REBEL L LOG GETTER Ot 272.4 HYPERLIPIDEMIA NEC/NOS 07/26/2017 BAIMA, REBEL L LOG GETTER Ot 401.9 HYPERTENSION NOS 07/26/2017 BIJU, REBEL L LOG GETTER Ot V58.69 OTH MED,LT,CURRENT USE 07/26/2017 JESUS KATEADEN Ot 786.50 CHEST PAIN NOS 07/26/2017 ADEN LEE DO Ot V76.12 OTH SCREEN MAMMO-MALIGN NEOPLASM OF VAN 07/26/2017 ANNARICK ADEN KATE Ot 250.00 DIAB BHAVIK WO COMPL, TYPE II OR UNSPEC TY 07/26/2017 ADEN LEE DO Ot 272.4 HYPERLIPIDEMIA NEC/NOS 07/26/2017 CHANDNI IOANA Sergei Ot 721.0 CERVICAL SPONDYLOSIS 07/26/2017 BIJU, REBEL L LOG GETTER Ot 397.0 TRICUSPID VALVE DISEASE 07/26/2017 BAIMA, REBEL L LOG GETTER Ot 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 NEC 07/26/2017 BIJU REBEL L LOG GETTER Ot 424.0 MITRAL VALVE DISORDER 07/26/2017 BIJU REBEL L LOG GETTER Ot 272.4 HYPERLIPIDEMIA NEC/NOS 07/26/2017 BIJU REBEL L LOG GETTER Ot V58.69 OTH MED,LT,CURRENT USE 07/26/2017 JESUS KATEADEN Ot 786.50 CHEST PAIN NOS 07/26/2017 NINIAYANSANDHUADEN Ot V15.88 HISTORY OF FALL 07/26/2017 BIJU REBEL L LOG GETTER Ot 272.4 HYPERLIPIDEMIA NEC/NOS 07/26/2017 JESUS KATEAEDN Ot 250.00 DIAB BHAVIK WO COMPL, TYPE II OR UNSPEC TY 07/26/2017 GELLENDER , ADEN Mohr Ot 401.9 HYPERTENSION NOS 07/26/2017 GELJORGE L KATE, ADEN Mohr Ot V76.12 OTH SCREEN MAMMO-MALIGN NEOPLASM OF VAN 07/26/2017 LEANDROREBEL JC L LOG GETTER Ot 250.00 DIAB BHAVIK WO COMPL, TYPE II OR UNSPEC TY 07/26/2017 BAIMA, REBEL L LOG GETTER Ot 272.4 HYPERLIPIDEMIA NEC/NOS 07/26/2017 BAIMA REBEL L LOG GETTER Ot 401.9 HYPERTENSION NOS 07/26/2017 Ot 250.00 TIFFANI B BHAVIK WO COMPL, TYPE II OR UNSPEC TY 07/26/2017 BAIMA, REBEL L LOG GETTER Ot 272.4 HYPERLIPIDEMIA NEC/NOS 07/26/2017 GELLENDER , ADEN Mohr Ot 250.00 DIAB BHAVIK WO COMPL, TYPE II OR UNSPEC TY 07/26/2017 GELLENDER , ADEN Mohr Ot 401.9 HYPERTENSION NOS 07/26/2017 ADEN LEE DO Ot 782.3 EDEMA 07/26/2017 ADEN LEE DO Ot Z12.31 ENCNTR SCREEN MAMMOGRAM FOR MALIGNANT NE 07/26/2017 CHANDNI KATE IOANA Mai Ot M16.12 UNILATERAL PRIMARY OSTEOARTHRITIS, LEFT 07/26/2017 CHANDNI DOIOANA Ot M47.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, LUMBAR REGION 07/26/2017 ADEN LEE DO Ot E11.9 TYPE 2 DIABETES MELLITUS WITHOUT COMPLIC 07/26/2017 ADEN LEE DO Ot I10 ESSENTIAL (PRIMARY) HYPERTENSION 07/26/2017 Ot E11.9 TYPE 2 DIABETES MELLITUS WITHOUT COMPLIC 07/26/2017 Ot E78.5 HYPE RLIPIDEMIA, UNSPECIFIED 07/26/2017 GELLENDER ADEN KATE Ot E11.9 TYPE 2 DIABETES MELLITUS WITHOUT COMPLIC 07/26/2017 NINILENDER ADEN KATE Ot E78.5 HYPERLIPIDEMIA, UNSPECIFIED 07/26/2017 ANNADER ADEN KATE Ot D69.6 THROMBOCYTOPENIA, UNSPECIFIED 07/26/2017 NINILENDER ADEN KATE Ot D72.819 DECREASED WHITE BLOOD CELL COUNT, UNSPEC 07/26/2017 ADEN LEE DO Ot Z12.31 ENCNTR SCREEN MAMMOGRAM FOR MALIGNANT NE 07/26/2017 ADEN LEE DO Ot E11.9 TYPE 2 [...] HYPERLIPIDEMIA, UNSPECIFIED 09/10/2017 Ot V76.12 OTH SCREEN MAMMO- MALIGN NEOPLASM OF VAN 09/10/2017 Ot 272.4 HYPE RLIPIDEMIA NEC/NOS 09/10/2017 Ot V58.69 OTH MED,LT,CURRENT USE 09/10/2017 Ot 789.01 ABD OMINAL PAIN, RIGHT UPPER QUADRANT 09/10/2017 Ot 575.8 DIS OF GALLBLADDER NEC 09/10/2017 Ot 789.01 ABD OMINAL PAIN, RIGHT UPPER QUADRANT 09/10/2017 BAIMA, REBEL L LOG GETTER Ot 272.4 HYPERLIPIDEMIA NEC/NOS 09/10/2017 BAIMA, REBEL L LOG GETTER Ot 401.9 HYPERTENSION NOS 09/10/2017 BAIMA, REBEL L LOG GETTER Ot V58.69 OTH MED,LT,CURRENT USE 09/10/2017 GELLENDER DO, ADEN Mohr Ot 786.50 CHEST PAIN NOS 09/10/2017 GELLENDER DO, ADEN Mohr Ot V76.12 OTH SCREEN MAMMO-MALIGN NEOPLASM OF VAN 09/10/2017 GELLENDER DO, ADEN Mohr Ot 250.00 DIAB BHAVIK WO COMPL, TYPE II OR UNSPEC TY 09/10/2017 GELLENDER DO, ADEN Mohr Ot 272.4 HYPERLIPIDEMIA NEC/NOS 09/10/2017 IOANA TARIQ DO Ot 721.0 CERVICAL SPONDYLOSIS 09/10/2017 BAIMA, REBEL L LOG GETTER Ot 397.0 TRICUSPID VALVE DISEASE 09/10/2017 BAIMA, REBEL L LOG GETTER Ot 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 NEC 09/10/2017 BAIMA, REBEL L LOG GETTER Ot 424.0 MITRAL VALVE DISORDER 09/10/2017 BAIMA, REBEL L LOG GETTER Ot 272.4 HYPERLIPIDEMIA NEC/NOS 09/10/2017 BAIMA, REBEL L LOG GETTER Ot V58.69 OTH MED,LT,CURRENT USE 09/10/2017 GELLENDER DO, ADEN Mohr Ot 786.50 CHEST PAIN NOS 09/10/2017 GELLENDER DO, ADEN Mohr Ot V15.88 HISTORY OF FALL 09/10/2017 KATHLEEN IVYHER L LOG GETTER Ot 272.4 HYPERLIPIDEMIA NEC/NOS 09/10/2017 GELLENDER DO, ADEN Mohr Ot 250.00 DIAB BHAVIK WO COMPL, TYPE II OR UNSPEC TY 09/10/2017 GELLENDER DO, ADEN Mohr Ot 401.9 HYPERTENSION NOS 09/10/2017 GELLENDER DO, ADEN Mohr Ot V76.12 OTH SCREEN MAMMO-MALIGN NEOPLASM OF VAN 09/10/2017 LEANDROMAREBEL L LOG GETTER Ot 250.00 DIAB BHAVIK WO COMPL, TYPE II OR UNSPEC TY 09/10/2017 BAIMA REBEL L LOG GETTER Ot 272.4 HYPERLIPIDEMIA NEC/NOS 09/10/2017 BAIKATHLEEN JCHER L LOG GETTER Ot 401.9 HYPERTENSION NOS 09/10/2017 Ot 250.00 TIFFANI B BHAVIK WO COMPL, TYPE II OR UNSPEC TY 09/10/2017 BAIMA REBEL L LOG GETTER Ot 272.4 HYPERLIPIDEMIA NEC/NOS 09/10/2017 GELLENDER DO, ADEN Mohr Ot 250.00 DIAB BHAVIK WO COMPL, TYPE II OR UNSPEC TY 09/10/2017 GELLENDER DO, ADEN Mohr Ot 401.9 HYPERTENSION NOS 09/10/2017 GELLENDER DO, ADEN Mohr Ot 782.3 EDEMA 09/10/2017 GELLENDER DOADEN Ot Z12.31 ENCNTR SCREEN MAMMOGRAM FOR MALIGNANT NE 09/10/2017 IOANA TARIQ DO Ot M16.12 UNILATERAL PRIMARY OSTEOARTHRITIS, LEFT 09/10/2017 CHANDNI DO, IOANA Mai Ot M47.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, LUMBAR REGION 09/10/2017 GELLENDER DO, ADEN Mohr Ot E11.9 TYPE 2 DIABETES MELLITUS WITHOUT COMPLIC 09/10/2017 GELLENDER DO, ADEN Mohr Ot I10 ESSENTIAL (PRIMARY) HYPERTENSION 09/10/2017 Ot E11.9 TYPE 2 DIABETES MELLITUS WITHOUT COMPLIC 09/10/2017 Ot E78.5 HYPE RLIPIDEMIA, UNSPECIFIED 09/10/2017 GELLENDER DO, ADEN Mohr Ot E11.9 TYPE 2 DIABETES MELLITUS WITHOUT COMPLIC 09/10/2017 GELLENDER DO, ADEN Mohr Ot E78.5 HYPERLIPIDEMIA, UNSPECIFIED 09/10/2017 GELLENDER DO, ADEN Fani Ot D69.6 THROMBOCYTOPENIA, UNSPECIFIED 09/10/2017 GELLENDER DO, ADEN Mohr Ot D72.819 DECREASED WHITE BLOOD CELL COUNT, UNSPEC 09/10/2017 GELLENDER DO, ADEN Mohr Ot Z12.31 ENCNTR SCREEN MAMMOGRAM FOR MALIGNANT NE 09/10/2017 GELLENDER DO, ADEN Mohr Ot E11.9 TYPE 2 DIABETES MELLITUS WITHOUT COMPLIC 09/10/2017 GELLENDER DO, ADEN Mohr Ot E78.5 HYPERLIPIDEMIA, UNSPECIFIED 09/10/2017 GELLENDER DO, ADEN Fani Ot I10 ESSENTIAL (PRIMARY) HYPERTENSION 09/10/2017 GELLENDER DO, ADEN Fani Ot E05.90 THYROTOXICOSIS, UNSP WITHOUT THYROTOXIC 09/10/2017 GELLENDER DO, ADEN Mohr Ot E11.9 TYPE 2 DIABETES MELLITUS WITHOUT COMPLIC 09/10/2017 GELLENDER DO, ADEN Fani Ot I10 ESSENTIAL (PRIMARY) HYPERTENSION 09/10/2017 GELLENDER DO, ADEN Fani Ot D69.6 THROMBOCYTOPENIA, UNSPECIFIED 09/10/2017 GELLENDER DO, ADEN Mohr Ot E11.9 TYPE 2 DIABETES MELLITUS WITHOUT COMPLIC 09/10/2017 GELLENDER DO, ADEN Fani Ot E78.5 HYPERLIPIDEMIA, UNSPECIFIED 10/16/2017 GELLENDER DO, ADEN Fani Ot R53.1 WEAKNESS 10/16/2017 GELLENDER DO, ADEN Mohr Ot R53.1 WEAKNESS 10/16/2017 GELLENDER DO, ADEN Mohr Ot R53.1 WEAKNESS 10/16/2017 GELLENDER DO, ADEN Fani Ot R53.1 WEAKNESS 10/16/2017 ADEN LEE DO Ot R53.1 WEAKNESS 10/18/2017 FAINA, ERIN LOG GETTER Ot E11.9 TYPE 2 DIABETES MELLITUS WITHOUT COMPLIC 10/18/2017 FAINAERIN BolanosP Ot E66.01 MORBID (SEVERE) OBESITY DUE TO EXCESS CA 10/18/2017 FAINAERIN Bolanos LOG GETTER Ot E78.00 PURE HYPERCHOLESTEROLEMIA, UNSPECIFIED 10/18/2017 FAINA, ERIN LOG GETTER Ot I10 ESSENTIAL (PRIMARY) HYPERTENSION 10/18/2017 FAINAERIN BolanosP Ot K21.9 GASTRO-ESOPHAGEAL REFLUX DISEASE WITHOUT 10/18/2017 FAINAERIN Bolanos LOG GETTER Ot S09.90XA UNSPECIFIED INJURY OF HEAD, INITIAL ENCO 10/18/2017 FAINAERIN BolanosP Ot W01.10XA FALL SAME LEV FROM SLIP/TRIP W STRIKE AG 10/18/2017 FAINAERIN Bolanos LOG GETTER Ot Z68.41 BODY MASS INDEX (BMI) 40.0-44.9, ADULT 10/18/2017 FAINA, ERIN TREADWELLP Ot Z79.84 CLIENT SERVICES DIRECTOR (CURRENT) USE OF ORAL HYPOGLYC 10/18/2017 FAINA, ERIN LOG GETTER Ot Z86.718 PERSONAL HISTORY OF OTHER VENOUS THROMBO 10/18/2017 FAINA, ERIN TREADWELLP Ot Z88.0 ALLERGY STATUS TO PENICILLIN 10/18/2017 FAINA, ERIN LOG GETTER Ot Z88.5 ALLERGY STATUS TO NARCOTIC AGENT STATUS 10/18/2017 FAINA, ERIN LOG GETTER Ot Z88.6 ALLERGY STATUS TO ANALGESIC AGENT STATUS 10/18/2017 FAINA, ERIN LOG GETTER Ot Z96.653 PRESENCE OF ARTIFICIAL KNEE JOINT, BILAT 10/18/2017 Ot V76.12 OTH SCREEN MAMMO- MALIGN NEOPLASM OF VAN 10/18/2017 Ot 272.4 HYPE RLIPIDEMIA NEC/NOS 10/18/2017 Ot V58.69 OTH MED,LT,CURRENT USE 10/18/2017 Ot 789.01 ABD OMINAL PAIN, RIGHT UPPER QUADRANT 10/18/2017 Ot 575.8 DIS OF GALLBLADDER NEC 10/18/2017 Ot 789.01 ABD OMINAL PAIN, RIGHT UPPER QUADRANT 10/18/2017 BAIMA, REBEL L LOG GETTER Ot 272.4 HYPERLIPIDEMIA NEC/NOS 10/18/2017 BAIMA, REBEL L LOG GETTER Ot 401.9 HYPERTENSION NOS 10/18/2017 BAIMA, REBEL L LOG GETTER Ot V58.69 OTH MED,LT,CURRENT USE 10/18/2017 ADEN LEE DO Fani Ot 786.50 CHEST PAIN NOS 10/18/2017 ADEN LEE DO Fani Ot V76.12 OTH SCREEN MAMMO-MALIGN NEOPLASM OF VAN 10/18/2017 ADEN LEE DO Fani Ot 250.00 DIAB BHAVIK WO COMPL, TYPE II OR UNSPEC TY 10/18/2017 JESUS KATE ADEN Mohr Ot 272.4 HYPERLIPIDEMIA NEC/NOS 10/18/2017 IOANA TARIQ DO Ot 721.0 CERVICAL SPONDYLOSIS 10/18/2017 BAIMA, REBEL L LOG GETTER Ot 397.0 TRICUSPID VALVE DISEASE 10/18/2017 BAIMA, REBEL L LOG GETTER Ot 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 NEC 10/18/2017 BAIMA, REBEL L LOG GETTER Ot 424.0 MITRAL VALVE DISORDER 10/18/2017 BAIMA, REBEL L LOG GETTER Ot 272.4 HYPERLIPIDEMIA NEC/NOS 10/18/2017 BAIMA REBEL L LOG GETTER Ot V58.69 OTH MED,LT,CURRENT USE 10/18/2017 ADEN LEE DO Fani Ot 786.50 CHEST PAIN NOS 10/18/2017 ADEN LEE DO Fani Ot V15.88 HISTORY OF FALL 10/18/2017 BIJU REBEL L LOG GETTER Ot 272.4 HYPERLIPIDEMIA NEC/NOS 10/18/2017 JESUS KATE, ADEN Mohr Ot 250.00 DIAB BHAVIK WO COMPL, TYPE II OR UNSPEC TY 10/18/2017 JESUS KATEADEN Ot 401.9 HYPERTENSION NOS 10/18/2017 JESUS KATE ADEN Mohr Ot V76.12 OTH SCREEN MAMMO-MALIGN NEOPLASM OF VAN 10/18/2017 BAIMA REBEL L LOG GETTER Ot 250.00 DIAB BHAVIK WO COMPL, TYPE II OR UNSPEC TY 10/18/2017 BAIMA, REBEL L LOG GETTER Ot 272.4 HYPERLIPIDEMIA NEC/NOS 10/18/2017 BAIMA, REBEL L LOG GETTER Ot 401.9 HYPERTENSION NOS 10/18/2017 Ot 250.00 TIFFANI B BHAVIK WO COMPL, TYPE II OR UNSPEC TY 10/18/2017 BAIMA, REBEL L LOG GETTER Ot 272.4 HYPERLIPIDEMIA NEC/NOS 10/18/2017 JESUS KATEADEN Ot 250.00 DIAB BHAVIK WO COMPL, TYPE II OR UNSPEC TY 10/18/2017 GELLENDER DO, ADEN Fani Ot 401.9 HYPERTENSION NOS 10/18/2017 GELLENDER DO, ADEN Fani Ot 782.3 EDEMA 10/18/2017 GELLENDER DO, ADEN Mohr Ot Z12.31 ENCNTR SCREEN MAMMOGRAM FOR MALIGNANT NE 10/18/2017 CHANDNI DO, IOANA Mai Ot M16.12 UNILATERAL PRIMARY OSTEOARTHRITIS, LEFT 10/18/2017 CHANDNI DO, IOANA Mai Ot M47.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, LUMBAR REGION 10/18/2017 GELLENDER DO, ADEN Fani Ot E11.9 TYPE 2 DIABETES MELLITUS WITHOUT COMPLIC 10/18/2017 GELLENDER DO, ADEN Mohr Ot I10 ESSENTIAL (PRIMARY) HYPERTENSION 10/18/2017 Ot E11.9 TYPE 2 DIABETES MELLITUS WITHOUT COMPLIC 10/18/2017 Ot E78.5 HYPE RLIPIDEMIA, UNSPECIFIED 10/18/2017 GELLENDER DO, ADEN Mohr Ot [...] E78.5 HYPERLIPIDEMIA, UNSPECIFIED 10/18/2017 GELLENDER DO, ADEN Fani Ot R53.1 WEAKNESS 10/20/2017 FAINAERIN Bolanos Ot E11.9 TYPE 2 DIABETES MELLITUS WITHOUT COMPLIC 10/20/2017 ERIN EISENBERG Ot E66.01 MORBID (SEVERE) OBESITY DUE TO EXCESS CA 10/20/2017 FAINAERIN Bolanos Ot E78.00 PURE HYPERCHOLESTEROLEMIA, UNSPECIFIED 10/20/2017 FAINAERIN BolanosP Ot I10 ESSENTIAL (PRIMARY) HYPERTENSION 10/20/2017 FAINAERIN BolanosP Ot K21.9 GASTRO-ESOPHAGEAL REFLUX DISEASE WITHOUT 10/20/2017 FAINAERIN Bolanos Ot S09.90XA UNSPECIFIED INJURY OF HEAD, INITIAL ENCO 10/20/2017 ERIN EISENBERG Ot W01.10XA FALL SAME LEV FROM SLIP/TRIP W STRIKE AG 10/20/2017 ERIN EISENBERG Ot Z68.41 BODY MASS INDEX (BMI) 40.0-44.9, ADULT 10/20/2017 ERIN EISENBERG Ot Z79.84 CLIENT SERVICES DIRECTOR (CURRENT) USE OF ORAL HYPOGLYC 10/20/2017 FAINAERIN BolanosP Ot Z86.718 PERSONAL HISTORY OF OTHER VENOUS THROMBO 10/20/2017 FAINAERIN BolanosP Ot Z88.0 ALLERGY STATUS TO PENICILLIN 10/20/2017 FAINA, ERIN TREADWELLP Ot Z88.5 ALLERGY STATUS TO NARCOTIC AGENT STATUS 10/20/2017 FAINAERIN BolanosP Ot Z88.6 ALLERGY STATUS TO ANALGESIC AGENT STATUS 10/20/2017 FAINAERIN BolanosP Ot Z96.653 PRESENCE OF ARTIFICIAL KNEE JOINT, BILAT 10/22/2017 GELLENDER DO, ADEN Mohr Ot R53.1 WEAKNESS 11/18/2017 GELLENDER DO, ADEN Mohr Ot R53.1 WEAKNESS 11/18/2017 GELLENDER DO, ADEN Mohr Ot R53.1 WEAKNESS 11/25/2017 GELLENDER DO, ADEN Mohr Ot R53.1 WEAKNESS 11/25/2017 GELLENDER DO, ADEN Mohr Ot R53.1 WEAKNESS 12/16/2017 GELLENDER DO, ADEN Mohr Ot R53.1 WEAKNESS 12/18/2017 GELLENDER DO, ADEN Mohr Ot R53.1 WEAKNESS [...] 03/09/2018 GELLENDER DO, ADEN Mohr Ot Z79.84 CLIENT SERVICES DIRECTOR (CURRENT) USE OF ORAL HYPOGLYC 03/09/2018 GELLENDER [...] 03/09/2018 GELLENDER DO, ADEN Mohr Ot Z79.84 [facility] (CURRENT) USE OF ORAL HYPOGLYC 03/09/2018 GELLENDER [...] DIFFICULTY IN WALKING, NOT ELSEWHERE CLA 03/11/2018 GELLENDER DO, ADEN Mohr Ot R29.700 NIHSS SCORE 0 03/11/2018 GELLENDER DO, ADEN Mohr Ot R32 UNSPECIFIED URINARY INCONTINENCE 03/11/2018 GELLENDER DO, ADEN Mohr Ot R41.0 DISORIENTATION, UNSPECIFIED 03/11/2018 GELLENDER DO, ADEN Mohr Ot R47.1 DYSARTHRIA AND ANARTHRIA 03/11/2018 GELLENDER DO, ADEN Mohr Ot R53.1 WEAKNESS 03/11/2018 GELLENDER DO, ADEN Mohr Ot Z68.43 BODY MASS INDEX (BMI) 50-59.9 , ADULT 03/11/2018 GELLENDER DO, ADEN Mohr Ot Z79.84 CLIENT SERVICES DIRECTOR (CURRENT) USE OF ORAL HYPOGLYC 03/11/2018 GELLENDER DO, ADEN Mohr Ot Z86.711 PERSONAL HISTORY OF PULMONARY EMBOLISM 03/11/2018 GELLENDER DO, ADEN Fani Ot Z86.718 PERSONAL HISTORY OF OTHER VENOUS THROMBO 03/11/2018 GELLENDER DO, ADEN Fani Ot Z95.828 PRESENCE OF OTHER VASCULAR IMPLANTS AND 03/11/2018 GELLENDER DO, ADEN Fani Ot Z96.653 PRESENCE OF ARTIFICIAL KNEE JOINT, BILAT 03/16/2018 LORENZA FOWLER, HECTOR Bolanos Ot D64.9 ANEMIA, UNSPECIFIED 03/16/2018 LORENZA FOWLER, HECTOR Bolanos Ot D69.6 THROMBOCYTOPENIA, UNSPECIFIED 03/16/2018 HECTOR BRITT MD E Ot E11.9 TYPE 2 DIABETES MELLITUS WITHOUT COMPLIC 03/16/2018 HECTOR BRITT MD E Ot E66.9 OBESITY, UNSPECIFIED 03/16/2018 MITCH BRITT MDIC E Ot E78.0 0 PURE HYPERCHOLESTEROLEMIA, UNSPECIFIED 03/16/2018 MITCH BRITT MDIC E Ot E78.2 MIXED HYPERLIPIDEMIA 03/16/2018 HECTOR BRITT MD E Ot I10 ESSENTIAL (PRIMARY) HYPERTENSION 03/16/2018 HECTOR BRITT MD E Ot 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 03/16/2018 HECTOR BRITT MD E Ot 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 03/16/2018 HECTOR BRITT MD E Ot 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 03/16/2018 HECTOR BRITT MD E Ot R26.2 DIFFICULTY IN WALKING, NOT ELSEWHERE CLA 03/16/2018 HECTOR BRITT MD E Ot R29.8 98 OTH SYMPTOMS AND SIGNS INVOLVING THE MUS 03/16/2018 HECTOR BRITT MD Ot Z68.4 2 BODY MASS INDEX (BMI) 45.0-49.9, ADULT 03/16/2018 HECTOR BRITT MD E Ot Z79.8 4 CLIENT SERVICES DIRECTOR (CURRENT) USE OF ORAL HYPOGLYC 03/17/2018 HECTOR BRITT MD E Ot D64.9 ANEMIA, UNSPECIFIED 03/17/2018 MITCH BRITT MDIC E Ot D69.6 THROMBOCYTOPENIA, UNSPECIFIED 03/17/2018 HECTOR BRITT MD E Ot E11.9 TYPE 2 DIABETES MELLITUS WITHOUT COMPLIC 03/17/2018 HECTOR BRITT MD Ot E66.9 OBESITY, UNSPECIFIED 03/17/2018 HECTOR BRITT MD E Ot E78.0 0 PURE HYPERCHOLESTEROLEMIA, UNSPECIFIED 03/17/2018 MITCH BRITT MDIC E Ot E78.2 MIXED HYPERLIPIDEMIA 03/17/2018 LORENZA FOWLER HECTOR E Ot I10 ESSENTIAL (PRIMARY) HYPERTENSION 03/17/2018 LORENZA FOWLER HECTOR E Ot 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 03/17/2018 HECTOR BRITT MD E Ot 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 03/17/2018 HECTOR BRITT MD E Ot 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 03/17/2018 HECTOR BRITT MD E Ot R26.2 DIFFICULTY IN WALKING, NOT ELSEWHERE CLA 03/17/2018 MITCH BRITT MDIC E Ot R29.8 98 OTH SYMPTOMS AND SIGNS INVOLVING THE MUS 03/17/2018 HECTOR BRITT MD E Ot Z68.4 2 BODY MASS INDEX (BMI) 45.0-49.9, ADULT 03/17/2018 HECTOR BRITT MD E Ot Z79.8 4 [facility] (CURRENT) USE OF ORAL HYPOGLYC 03/17/2018 HECTOR BRITT MD E Ot D64.9 ANEMIA, UNSPECIFIED 03/17/2018 LORENZA FOWLER HECTOR E Ot D69.6 THROMBOCYTOPENIA, UNSPECIFIED 03/17/2018 LORENZA FOWLER HECTOR E Ot E11.9 TYPE 2 DIABETES MELLITUS WITHOUT COMPLIC 03/17/2018 HECTOR BRITT MD E Ot E66.9 OBESITY, UNSPECIFIED 03/17/2018 LORENZA FOWLER HECTOR E Ot E78.0 0 PURE HYPERCHOLESTEROLEMIA, UNSPECIFIED 03/17/2018 LORENZA FOWLER HECTOR E Ot E78.2 MIXED HYPERLIPIDEMIA 03/17/2018 LORENZA FOWLER HECTOR E Ot I10 ESSENTIAL (PRIMARY) HYPERTENSION 03/17/2018 MITCH BRITT MDIC E Ot 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 03/17/2018 MITCH BRITT MDIC E Ot 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 03/17/2018 LORENZA FOWLER HECTOR E Ot 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 03/17/2018 MITCH BRITT MDIC E Ot R26.2 DIFFICULTY IN WALKING, NOT ELSEWHERE CLA 03/17/2018 MITCH BRITT MDIC E Ot R29.8 98 OTH SYMPTOMS AND SIGNS INVOLVING THE MUS 03/17/2018 HECTOR BRITT MD E Ot Z68.4 2 BODY MASS INDEX (BMI) 45.0-49.9, ADULT 03/17/2018 HECTOR BRITT MD E Ot Z79.8 4 CLIENT SERVICES DIRECTOR (CURRENT) USE OF ORAL HYPOGLYC 03/17/2018 HECTOR BRITT MD E Ot D64.9 ANEMIA, UNSPECIFIED 03/17/2018 LORENZA FOWLER HECTOR E Ot D69.6 THROMBOCYTOPENIA, UNSPECIFIED 03/17/2018 LORENZA FOWLER HECTOR E Ot E11.9 TYPE 2 DIABETES MELLITUS WITHOUT COMPLIC 03/17/2018 HECTOR BRITT MD E Ot E66.9 OBESITY, UNSPECIFIED 03/17/2018 LORENZA FOWLER HECTOR E Ot E78.0 0 PURE HYPERCHOLESTEROLEMIA, UNSPECIFIED 03/17/2018 MITCH BRITT MDIC E Ot E78.2 MIXED HYPERLIPIDEMIA 03/17/2018 LORENZA FOWLER HECTOR E Ot I10 ESSENTIAL (PRIMARY) HYPERTENSION 03/17/2018 MITCH BRITT MDIC E Ot 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 03/17/2018 HECTOR BRITT MD E Ot 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 03/17/2018 HECTOR BRITT MD E Ot 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 03/17/2018 HECTOR BRITT MD E Ot R26.2 DIFFICULTY IN WALKING, NOT ELSEWHERE CLA 03/17/2018 HECTOR BRITT MD E Ot R29.8 98 OTH SYMPTOMS AND SIGNS INVOLVING THE MUS 03/17/2018 HECTOR BRITT MD E Ot Z68.4 2 BODY MASS INDEX (BMI) 45.0-49.9, ADULT 03/17/2018 HECTOR BRITT MD E Ot Z79.8 4 CLIENT SERVICES DIRECTOR (CURRENT) USE OF ORAL HYPOGLYC 03/18/2018 HECTOR BRITT MD E Ot D64.9 ANEMIA, UNSPECIFIED 03/18/2018 MITCH BRITT MDIC E Ot D69.6 THROMBOCYTOPENIA, UNSPECIFIED 03/18/2018 LORENZA FOWLER HECTOR E Ot E11.9 TYPE 2 DIABETES MELLITUS WITHOUT COMPLIC 03/18/2018 MITCH BRITT MDIC E Ot E66.9 OBESITY, UNSPECIFIED 03/18/2018 LORENZA FOWLER HECTOR E Ot E78.0 0 PURE HYPERCHOLESTEROLEMIA, UNSPECIFIED 03/18/2018 LORENZA FOWLER HECTOR E Ot E78.2 MIXED HYPERLIPIDEMIA 03/18/2018 HECTOR BRITT MD E Ot I10 ESSENTIAL (PRIMARY) HYPERTENSION 03/18/2018 MITCH BRITT MDIC E Ot 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 03/18/2018 HECTOR BRITT MD E Ot 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 03/18/2018 MITCH BRITT MDIC E Ot 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 03/18/2018 HECTOR BRITT MD E Ot R26.2 DIFFICULTY IN WALKING, NOT ELSEWHERE CLA 03/18/2018 HECTOR BRITT MD E Ot R29.8 98 OTH SYMPTOMS AND SIGNS INVOLVING THE MUS 03/18/2018 HECTOR BRITT MD E Ot Z68.4 2 BODY MASS INDEX (BMI) 45.0-49.9, ADULT 03/18/2018 HECTOR BRITT MD E Ot Z79.8 4 CLIENT SERVICES DIRECTOR (CURRENT) USE OF ORAL HYPOGLYC 03/19/2018 HECTOR BRITT MD Ot D64.9 ANEMIA, UNSPECIFIED 03/19/2018 HECTOR BRITT MD E Ot D69.6 THROMBOCYTOPENIA, UNSPECIFIED 03/19/2018 HECTOR BRITT MD E Ot E11.9 TYPE 2 DIABETES MELLITUS WITHOUT COMPLIC 03/19/2018 HECTOR BRITT MD Ot E66.9 OBESITY, UNSPECIFIED 03/19/2018 HECTOR BRITT MD E Ot E78.0 0 PURE HYPERCHOLESTEROLEMIA, UNSPECIFIED 03/19/2018 HECTOR BRITT MD E Ot E78.2 MIXED HYPERLIPIDEMIA 03/19/2018 HECTOR BRITT MD E Ot I10 ESSENTIAL (PRIMARY) HYPERTENSION 03/19/2018 HECTOR BRITT MD E Ot 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 03/19/2018 HECTOR BRITT MD E Ot 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 03/19/2018 HECTOR BRITT MD E Ot 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 03/19/2018 MITCH BRITT MDIC E Ot R26.2 DIFFICULTY IN WALKING, NOT ELSEWHERE CLA 03/19/2018 MITCH BRITT MDIC E Ot R29.8 98 OTH SYMPTOMS AND SIGNS INVOLVING THE MUS 03/19/2018 HECTOR BRITT MD E Ot Z68.4 2 BODY MASS INDEX (BMI) 45.0-49.9, ADULT 03/19/2018 HECTOR BRITT MD E Ot Z79.8 4 [facility] (CURRENT) USE OF ORAL HYPOGLYC 03/20/2018 HECTOR BRITT MD E Ot D64.9 ANEMIA, UNSPECIFIED 03/20/2018 MITCH BRITT MDIC E Ot D69.6 THROMBOCYTOPENIA, UNSPECIFIED 03/20/2018 HECTOR BRITT MD E Ot E11.9 TYPE 2 DIABETES MELLITUS WITHOUT COMPLIC 03/20/2018 HECTOR BRITT MD E Ot E66.9 OBESITY, UNSPECIFIED 03/20/2018 HECTOR BRITT MD E Ot E78.0 0 PURE HYPERCHOLESTEROLEMIA, UNSPECIFIED 03/20/2018 MITCH BRITT MDIC E Ot E78.2 MIXED HYPERLIPIDEMIA 03/20/2018 HECTOR BRITT MD E Ot I10 ESSENTIAL (PRIMARY) HYPERTENSION 03/20/2018 LORENZA FOWLER HECTOR E Ot 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 03/20/2018 HECTOR BRITT MD E Ot 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 03/20/2018 HECTOR BRITT MD E Ot 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 03/20/2018 HECTOR BRITT MD E Ot R26.2 DIFFICULTY IN WALKING, NOT ELSEWHERE CLA 03/20/2018 HECTOR BRITT MD E Ot R29.8 98 OTH SYMPTOMS AND SIGNS INVOLVING THE MUS 03/20/2018 HECTOR BRITT MD E Ot Z68.4 2 BODY MASS INDEX (BMI) 45.0-49.9, ADULT 03/20/2018 HECTOR BRITT MD E Ot Z79.8 4 CLIENT SERVICES DIRECTOR (CURRENT) USE OF ORAL HYPOGLYC 03/21/2018 HECTOR BRITT MD E Ot D64.9 ANEMIA, UNSPECIFIED 03/21/2018 HECTOR BRITT MD E Ot D69.6 THROMBOCYTOPENIA, UNSPECIFIED 03/21/2018 HECTOR BRITT MD E Ot E11.9 TYPE 2 DIABETES MELLITUS WITHOUT COMPLIC 03/21/2018 HECTOR BRITT MD E Ot E66.9 OBESITY, UNSPECIFIED 03/21/2018 MITCH BRITT MDIC E Ot E78.0 0 PURE HYPERCHOLESTEROLEMIA, UNSPECIFIED 03/21/2018 LORENZA FOWLER HECTOR E Ot E78.2 MIXED HYPERLIPIDEMIA 03/21/2018 HECTOR BRITT MD E Ot I10 ESSENTIAL (PRIMARY) HYPERTENSION 03/21/2018 MITCH BRITT MDIC E Ot 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 03/21/2018 HECTOR BRITT MD E Ot 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 03/21/2018 HECTOR BRITT MD E Ot 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 03/21/2018 HECTOR BRITT MD E Ot R26.2 DIFFICULTY IN WALKING, NOT ELSEWHERE CLA 03/21/2018 HECTOR BRITT MD E Ot R29.8 98 OTH SYMPTOMS AND SIGNS INVOLVING THE MUS 03/21/2018 HECTOR BRITT MD E Ot Z68.4 2 BODY MASS INDEX (BMI) 45.0-49.9, ADULT 03/21/2018 HECTOR BRITT MD E Ot Z79.8 4 [facility] (CURRENT) USE OF ORAL HYPOGLYC 03/22/2018 HECTOR BRITT MD E Ot D64.9 ANEMIA, UNSPECIFIED 03/22/2018 HECTOR BRITT MD E Ot D69.6 THROMBOCYTOPENIA, UNSPECIFIED 03/22/2018 HECTOR BRITT MD E Ot E11.9 TYPE 2 DIABETES MELLITUS WITHOUT COMPLIC 03/22/2018 HECTOR BRITT MD Ot E66.9 OBESITY, UNSPECIFIED 03/22/2018 HECTOR BRITT MD E Ot E78.0 0 PURE HYPERCHOLESTEROLEMIA, UNSPECIFIED 03/22/2018 HECTOR BRITT MD E Ot E78.2 MIXED HYPERLIPIDEMIA 03/22/2018 HECTOR BRITT MD E Ot I10 ESSENTIAL (PRIMARY) HYPERTENSION 03/22/2018 HECTOR BRITT MD E Ot 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 03/22/2018 HECTOR BRITT MD E Ot 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 03/22/2018 HECTOR BRITT MD E Ot 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 03/22/2018 HECTOR BRITT MD E Ot R26.2 DIFFICULTY IN WALKING, NOT ELSEWHERE CLA 03/22/2018 HECTOR BRITT MD E Ot R29.8 98 OTH SYMPTOMS AND SIGNS INVOLVING THE MUS 03/22/2018 HECTOR BRITT MD Ot Z68.4 2 BODY MASS INDEX (BMI) 45.0-49.9, ADULT 03/22/2018 HECTOR BRITT MD E Ot Z79.8 4 [facility] (CURRENT) USE OF ORAL HYPOGLYC 03/22/2018 HECTOR BRITT MD E Ot D64.9 ANEMIA, UNSPECIFIED 03/22/2018 HECTOR BRITT MD E Ot D69.6 THROMBOCYTOPENIA, UNSPECIFIED 03/22/2018 HECTOR BRITT MD E Ot E11.9 TYPE 2 DIABETES MELLITUS WITHOUT COMPLIC 03/22/2018 HECTOR BRITT MD E Ot E66.9 OBESITY, UNSPECIFIED 03/22/2018 HECTOR BRITT MD E Ot E78.0 0 PURE HYPERCHOLESTEROLEMIA, UNSPECIFIED 03/22/2018 HECTOR BRITT MD E Ot E78.2 MIXED HYPERLIPIDEMIA 03/22/2018 HECTOR BRITT MD E Ot I10 ESSENTIAL (PRIMARY) HYPERTENSION 03/22/2018 HECTOR BRITT MD E Ot 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6 THROMBOCYTOPENIA, UNSPECIFIED 03/23/2018 LORENZA FOWLER HECTOR E Ot E11.9 TYPE 2 DIABETES MELLITUS WITHOUT COMPLIC 03/23/2018 HECTOR BRITT MD E Ot E66.9 OBESITY, UNSPECIFIED 03/23/2018 LORENZA FOWLER HECTOR E Ot E78.0 0 PURE HYPERCHOLESTEROLEMIA, UNSPECIFIED 03/23/2018 LORENZA FOWLER HECTOR E Ot E78.2 MIXED HYPERLIPIDEMIA 03/23/2018 LORENZA FOWLER HECTOR E Ot I10 ESSENTIAL (PRIMARY) HYPERTENSION 03/23/2018 LORENZA FOWLER HECTOR E Ot 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 03/23/2018 MITCH BRITT MDIC E Ot 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 03/23/2018 LORENZA FOWLER HECTOR E Ot 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 03/23/2018 MITCH BRITT MDIC E Ot R26.2 DIFFICULTY IN WALKING, NOT ELSEWHERE CLA 03/23/2018 HECTOR BRITT MD E Ot R29.8 98 OTH SYMPTOMS AND SIGNS INVOLVING THE MUS 03/23/2018 HECTOR BRITT MD E Ot Z68.4 2 BODY MASS INDEX (BMI) 45.0-49.9, ADULT 03/23/2018 HECTOR BRITT MD E Ot Z79.8 4 CLIENT SERVICES DIRECTOR (CURRENT) USE OF ORAL HYPOGLYC 03/24/2018 LORENZA FOWLER HECTOR E Ot D64.9 ANEMIA, UNSPECIFIED 03/24/2018 LORENZA FOWLER HECTOR E Ot D69.6 THROMBOCYTOPENIA, UNSPECIFIED 03/24/2018 LORENZA FOWLER HECTOR E Ot E11.9 TYPE 2 DIABETES MELLITUS WITHOUT COMPLIC 03/24/2018 LORENZA FOWLER HECTOR E Ot E66.9 OBESITY, UNSPECIFIED 03/24/2018 HECTOR BRITT MD Ot E78.0 0 PURE HYPERCHOLESTEROLEMIA, UNSPECIFIED 03/24/2018 HECTOR BRITT MD Ot E78.2 MIXED HYPERLIPIDEMIA 03/24/2018 HECTOR BRITT MD Ot I10 ESSENTIAL (PRIMARY) HYPERTENSION 03/24/2018 HECTOR BRITT MD Ot 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 03/24/2018 HECTOR BRITT MD Ot 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 03/24/2018 HECTOR BRITT MD Ot 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 03/24/2018 HECTOR BRITT MD Ot R26.2 DIFFICULTY IN WALKING, NOT ELSEWHERE CLA 03/24/2018 HECTOR BRITT MD Ot R29.8 98 OTH SYMPTOMS AND SIGNS INVOLVING THE MUS 03/24/2018 HECTOR BRITT MD Ot Z68.4 2 BODY MASS INDEX (BMI) 45.0-49.9, ADULT 03/24/2018 HECTOR BRITT MD Ot Z79.8 4 [facility] (CURRENT) USE OF ORAL HYPOGLYC 03/24/2018 HECTOR BRITT MD Ot D64.9 ANEMIA, UNSPECIFIED 03/24/2018 HECTOR BRITT MD Ot D69.6 THROMBOCYTOPENIA, UNSPECIFIED 03/24/2018 HECTOR BRITT MD Ot E11.9 TYPE 2 DIABETES MELLITUS WITHOUT COMPLIC 03/24/2018 HECTOR BRITT MD Ot E66.9 OBESITY, UNSPECIFIED 03/24/2018 HECTOR BRITT MD Ot E78.0 0 PURE HYPERCHOLESTEROLEMIA, UNSPECIFIED 03/24/2018 HECTOR BRITT MD Ot E78.2 MIXED HYPERLIPIDEMIA 03/24/2018 HECTOR BRITT MD Ot E86.0 DEHYDRATION 03/24/2018 HECTOR BRITT MD Ot I08.3 COMB RHEUMATIC DISORD OF MITRAL, AORTIC 03/24/2018 HECTOR BRITT MD Ot I10 ESSENTIAL (PRIMARY) HYPERTENSION 03/24/2018 HECTOR BRITT MD Ot I12.9 HYPERTENSIVE CHRONIC KIDNEY DISEASE W ST 03/24/2018 HECTOR BRITT MD Ot 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 03/24/2018 HECTOR BRITT MD Ot 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 03/24/2018 HECTOR BRITT MD Ot 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 03/24/2018 HECTOR BRITT MD Ot I87.2 VENOUS INSUFFICIENCY (CHRONIC) (PERIPHER 03/24/2018 HECTOR BRITT MD Ot K80.2 0 CALCULUS OF GALLBLADDER W/O CHOLECYSTITI 03/24/2018 HECTOR BRITT MD Ot N18.9 CHRONIC KIDNEY DISEASE, UNSPECIFIED 03/24/2018 HECTOR BRITT MD Ot 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 URETER, UNSPECIFI 03/24/2018 HECTOR BRITT MD Ot R26.2 DIFFICULTY IN WALKING, NOT ELSEWHERE CLA 03/24/2018 HECTOR BRITT MD Ot R29.8 98 OTH SYMPTOMS AND SIGNS INVOLVING THE MUS 03/24/2018 HECTOR BRITT MD Ot Z68.4 2 BODY MASS INDEX (BMI) 45.0-49.9, ADULT 03/24/2018 HECTOR BRITT MD Ot Z79.8 4 CLIENT SERVICES DIRECTOR (CURRENT) USE OF ORAL HYPOGLYC 03/30/2018 GELLENDER DO, ADEN Mohr Ot E11.9 TYPE 2 DIABETES MELLITUS WITHOUT COMPLIC 03/30/2018 GELLENDER DOADEN Ot E66.01 MORBID (SEVERE) OBESITY DUE TO EXCESS CA 03/30/2018 GELLENDER DO, ADEN Mohr Ot E78.00 PURE HYPERCHOLESTEROLEMIA, UNSPECIFIED 03/30/2018 GELLENDER DOADEN Ot I10 ESSENTIAL (PRIMARY) HYPERTENSION 03/30/2018 GELLENDER DO, ADEN Mohr Ot I44.2 ATRIOVENTRICULAR BLOCK, COMPLETE 03/30/2018 GELLENDER DO, ADEN Mohr Ot I48.91 UNSPECIFIED ATRIAL FIBRILLATION 03/30/2018 GELLENDER DOADEN Ot I49.5 SICK SINUS SYNDROME 03/30/2018 GELLENDER DO, ADEN Mohr Ot I69.322 DYSARTHRIA FOLLOWING CEREBRAL INFARCTION 03/30/2018 GELLENDER DO, ADEN Mohr Ot 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 03/30/2018 GELLENDER DO, ADEN Mohr Ot K21.9 GASTRO-ESOPHAGEAL REFLUX DISEASE WITHOUT 03/30/2018 GELLENDER DOADEN Ot M19.91 PRIMARY OSTEOARTHRITIS, UNSPECIFIED SITE 03/30/2018 GELLENDER DOADEN Ot N32.81 OVERACTIVE BLADDER 03/30/2018 GELLENDER DOADEN Ot R00.1 BRADYCARDIA, UNSPECIFIED 03/30/2018 GELLENDER DOADEN Ot R10.13 EPIGASTRIC PAIN 03/30/2018 GELLENDER DO, ADEN Mohr Ot R11.0 NAUSEA 03/30/2018 GELLENDER DO, ADEN Mohr Ot Z68.43 BODY MASS INDEX (BMI) 50-59.9 , ADULT 03/30/2018 GELLENDER DO, ADEN Mohr Ot Z79.84 [facility]CI (CURRENT) USE OF ORAL HYPOGLYC 03/30/2018 GELLENDER DO, ADEN Mohr Ot Z86.711 PERSONAL HISTORY OF PULMONARY EMBOLISM 03/30/2018 GELLENDER DO, ADEN Mohr Ot Z86.718 PERSONAL HISTORY OF OTHER VENOUS THROMBO 03/30/2018 GELLENDER DO, ADEN Mohr Ot Z95.828 PRESENCE OF OTHER VASCULAR IMPLANTS AND 03/30/2018 GELLENDER DO, ADEN Mohr Ot Z96.653 PRESENCE OF ARTIFICIAL KNEE JOINT, BILAT 03/30/2018 GELLENDER DO, ADEN Mohr Ot E11.9 TYPE 2 DIABETES MELLITUS WITHOUT COMPLIC 03/30/2018 GELLENDER DO, ADEN Mohr Ot E66.01 MORBID (SEVERE) OBESITY DUE TO EXCESS CA 03/30/2018 GELLENDER DO, ADEN Mohr Ot E78.00 PURE HYPERCHOLESTEROLEMIA, UNSPECIFIED 03/30/2018 GELLENDER DO, ADEN Mohr Ot I10 ESSENTIAL (PRIMARY) HYPERTENSION 03/30/2018 GELLENDER DO, ADEN Mohr Ot I44.2 ATRIOVENTRICULAR BLOCK, COMPLETE 03/30/2018 GELLENDER DO, ADEN Mohr Ot I48.91 UNSPECIFIED ATRIAL FIBRILLATION 03/30/2018 GELLENDER DO, ADEN Mohr Ot I49.5 SICK SINUS SYNDROME 03/30/2018 GELLENDER DO, ADEN Mohr Ot I69.322 DYSARTHRIA FOLLOWING CEREBRAL INFARCTION 03/30/2018 GELLENDER DO, ADEN Mohr Ot 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 03/30/2018 GELLENDER DO, ADEN Mohr Ot K21.9 GASTRO-ESOPHAGEAL REFLUX DISEASE WITHOUT 03/30/2018 GELLENDER DO, ADEN Mohr Ot M19.91 PRIMARY OSTEOARTHRITIS, UNSPECIFIED SITE 03/30/2018 GELLENDER DO, ADEN Mohr Ot N32.81 OVERACTIVE BLADDER 03/30/2018 GELLENDER DO, ADEN Mohr Ot R00.1 BRADYCARDIA, UNSPECIFIED 03/30/2018 GELLENDER DO, ADEN Mohr Ot R10.13 EPIGASTRIC PAIN 03/30/2018 GELLENDER DO, ADEN Mohr Ot R11.0 NAUSEA 03/30/2018 GELLENDER DO, ADEN Mohr Ot Z68.43 BODY MASS INDEX (BMI) 50-59.9 , ADULT 03/30/2018 GELLENDER DO, ADEN Mohr Ot Z79.84 CLIENT SERVICES DIRECTOR (CURRENT) USE OF ORAL HYPOGLYC 03/30/2018 GELLENDER DO, ADEN Mohr Ot Z86.711 PERSONAL HISTORY OF PULMONARY EMBOLISM 03/30/2018 GELLENDER DO, ADEN Mohr Ot Z86.718 PERSONAL HISTORY OF OTHER VENOUS THROMBO 03/30/2018 GELLENDER DO, ADEN Mohr Ot Z95.828 PRESENCE OF OTHER VASCULAR IMPLANTS AND 03/30/2018 GELLENDER DO, ADEN Mohr Ot Z96.653 PRESENCE OF ARTIFICIAL KNEE JOINT, BILAT 03/31/2018 GELLENDER DO, ADEN Mohr Ot D61.818 OTHER PANCYTOPENIA 03/31/2018 GELLENDER DO, ADEN Mohr Ot E11.9 TYPE 2 DIABETES MELLITUS WITHOUT COMPLIC 03/31/2018 GELLENDER DO, ADEN Mohr Ot E66.01 MORBID (SEVERE) OBESITY DUE TO EXCESS CA 03/31/2018 GELLENDER DO, ADEN Mohr Ot E78.5 HYPERLIPIDEMIA, UNSPECIFIED 03/31/2018 GELLENDER DO, ADEN Mohr Ot I10 ESSENTIAL (PRIMARY) HYPERTENSION 03/31/2018 GELLENDER DO, ADEN Mohr Ot I44.2 ATRIOVENTRICULAR BLOCK, COMPLETE 03/31/2018 GELLENDER DO, ADEN Mohr Ot I48.91 UNSPECIFIED ATRIAL FIBRILLATION 03/31/2018 GELLENDER DO, ADEN Mohr Ot I49.5 SICK SINUS SYNDROME 03/31/2018 GELLENDER DO, ADEN Mohr Ot I69.322 DYSARTHRIA FOLLOWING CEREBRAL INFARCTION 03/31/2018 GELLENDER DO, ADEN Mohr Ot 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 03/31/2018 GELLENDER DO, ADEN Mohr Ot K21.9 GASTRO-ESOPHAGEAL REFLUX DISEASE WITHOUT 03/31/2018 GELLENDER DO, ADEN Mohr Ot M19.91 PRIMARY OSTEOARTHRITIS, UNSPECIFIED SITE 03/31/2018 GELLENDER DO, ADEN Mohr Ot N32.81 OVERACTIVE BLADDER 03/31/2018 GELLENDER DO, ADEN Mohr Ot R00.1 BRADYCARDIA, UNSPECIFIED 03/31/2018 GELLENDER DO, ADEN Mohr Ot R10.13 EPIGASTRIC PAIN 03/31/2018 GELLENDER DO, ADEN A Ot R11.0 NAUSEA 03/31/2018 GELLENDER DO, ADEN Mohr Ot Z68.43 BODY MASS INDEX (BMI) 50-59.9 , ADULT 03/31/2018 GELLENDER DO, ADEN Mohr Ot Z79.84 [facility]CI (CURRENT) USE OF ORAL HYPOGLYC 03/31/2018 GELLENDER DO, ADEN Mohr Ot Z86.711 PERSONAL HISTORY OF PULMONARY EMBOLISM 03/31/2018 GELLENDER DO, ADEN Mohr Ot Z86.718 PERSONAL HISTORY OF OTHER VENOUS THROMBO 03/31/2018 GELLENDER DO, ADEN Mohr Ot Z95.828 PRESENCE OF OTHER VASCULAR IMPLANTS AND 03/31/2018 GELLENDER DO, ADEN Mohr Ot Z96.653 PRESENCE OF ARTIFICIAL KNEE JOINT, BILAT 04/11/2018 Ot A41.9 SEPS IS, UNSPECIFIED ORGANISM 04/11/2018 Ot B37.81 CAN DIDAL ESOPHAGITIS 04/11/2018 Ot D64.9 ANEM IA, UNSPECIFIED 04/11/2018 Ot D69.6 THRO MBOCYTOPENIA, UNSPECIFIED 04/11/2018 Ot E11.9 TYPE 2 DIABETES MELLITUS WITHOUT COMPLIC 04/11/2018 Ot E66.9 OBES ITY, UNSPECIFIED 04/11/2018 Ot E83.42 HYP OMAGNESEMIA 04/11/2018 Ot E86.9 VOLU ME DEPLETION, UNSPECIFIED 04/11/2018 Ot I10 ESSENT IAL (PRIMARY) HYPERTENSION 04/11/2018 Ot I48.0 PARO XYSMAL ATRIAL FIBRILLATION 04/11/2018 Ot I69.320 AP HASIA FOLLOWING CEREBRAL INFARCTION 04/11/2018 Ot I69.321 DY SPHASIA FOLLOWING CEREBRAL INFARCTION 04/11/2018 Ot I69.322 DY SARTHRIA FOLLOWING CEREBRAL INFARCTION 04/11/2018 Ot I82.622 AC MICHEAL EMBOLISM AND THROMBOSIS OF DEEP VE 04/11/2018 Ot I87.2 VENO US INSUFFICIENCY (CHRONIC) (PERIPHER 04/11/2018 Ot I89.0 LYMP HEDEMA, NOT ELSEWHERE CLASSIFIED 04/11/2018 Ot I95.9 HYPO TENSION, UNSPECIFIED 04/11/2018 Ot K21.0 TRAVIS RO-ESOPHAGEAL REFLUX DISEASE WITH ES 04/11/2018 Ot K22.10 ULC ER OF ESOPHAGUS WITHOUT BLEEDING 04/11/2018 Ot K29.70 GAS TRITIS, UNSPECIFIED, WITHOUT BLEEDING 04/11/2018 Ot 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 04/11/2018 Ot K64.1 SECO ND DEGREE HEMORRHOIDS 04/11/2018 Ot M79.81 NON TRAUMATIC HEMATOMA OF SOFT TISSUE 04/11/2018 Ot N39.0 URIN GAYE TRACT INFECTION, SITE NOT SPECIF 04/11/2018 Ot R19.5 OTHE R FECAL ABNORMALITIES 04/11/2018 Ot T82.818A E MBOLISM DUE TO VASCULAR PROSTH DEV/GRFT 04/11/2018 Ot T82.898A O TH COMPLICATION OF VASCULAR PROSTH DEV/ 04/11/2018 Ot Z68.42 BOD Y MASS INDEX (BMI) 45.0-49.9, ADULT 04/11/2018 Ot Z95.0 PRES ENCE OF CARDIAC PACEMAKER 04/11/2018 Ot Z96.653 ME ESENCE OF ARTIFICIAL KNEE JOINT, BILAT 04/17/2018 HECTOR BRITT MD E Ot B37.8 1 CANDIDAL ESOPHAGITIS 04/17/2018 HECTOR BRITT MD E Ot D50.0 IRON DEFICIENCY ANEMIA SECONDARY TO BLOO 04/17/2018 HECTOR BRITT MD E Ot E11.9 TYPE 2 DIABETES MELLITUS WITHOUT COMPLIC 04/17/2018 HECTOR BRITT MD E Ot E78.5 HYPERLIPIDEMIA, UNSPECIFIED 04/17/2018 HECTOR BRITT MD E Ot G72.8 9 OTHER SPECIFIED MYOPATHIES 04/17/2018 MITCH BRITT MDIC E Ot I10 ESSENTIAL (PRIMARY) HYPERTENSION 04/17/2018 HECTOR BRITT MD E Ot I48.0 PAROXYSMAL ATRIAL FIBRILLATION 04/17/2018 HECTOR BRITT MD E Ot I49.5 SICK SINUS SYNDROME 04/17/2018 HECTOR BRITT MD E Ot I82.A 12 ACUTE EMBOLISM AND THROMBOSIS OF LEFT AX 04/17/2018 HECTOR BRITT MD E Ot I87.2 VENOUS INSUFFICIENCY (CHRONIC) (PERIPHER 04/17/2018 HECTOR BRITT MD E Ot K21.9 GASTRO-ESOPHAGEAL REFLUX DISEASE WITHOUT 04/17/2018 HECTOR BRITT MD E Ot K22.1 0 ULCER OF ESOPHAGUS WITHOUT BLEEDING 04/17/2018 HECTOR BRITT MD E Ot M19.9 0 UNSPECIFIED OSTEOARTHRITIS, UNSPECIFIED 04/17/2018 HECTOR BRITT MD E Ot M54.9 DORSALGIA, UNSPECIFIED 04/17/2018 BRITT MD, HECTOR E Ot R13.1 0 DYSPHAGIA, UNSPECIFIED 04/17/2018 LORENZA FOWLER HECTOR E Ot Z95.0 PRESENCE OF CARDIAC PACEMAKER 04/18/2018 LORENZA FOWLER HECTOR E Ot B37.8 1 CANDIDAL ESOPHAGITIS 04/18/2018 LORENZA FOWLER HECTOR E Ot D50.0 IRON DEFICIENCY ANEMIA SECONDARY TO BLOO 04/18/2018 LORENZA FOWLER HECTOR E Ot E11.9 TYPE 2 DIABETES MELLITUS WITHOUT COMPLIC 04/18/2018 LORENZA FOWELR HECTOR E Ot E78.5 HYPERLIPIDEMIA, UNSPECIFIED 04/18/2018 LORENZA FOWLER HECTOR E Ot G72.8 9 OTHER SPECIFIED MYOPATHIES 04/18/2018 LORENZA FOWLER HECTOR E Ot I10 ESSENTIAL (PRIMARY) HYPERTENSION 04/18/2018 LORENZA FOWLER HECTOR E Ot I48.0 PAROXYSMAL ATRIAL FIBRILLATION 04/18/2018 LORENZA FOWLER HECTOR E Ot I49.5 SICK SINUS SYNDROME 04/18/2018 LORENZA FOWLER HECTOR E Ot I82.A 12 ACUTE EMBOLISM AND THROMBOSIS OF LEFT AX 04/18/2018 LORENZA FOWLER HECTOR E Ot I87.2 VENOUS INSUFFICIENCY (CHRONIC) (PERIPHER 04/18/2018 LORENZA FOWLER HECTOR E Ot K21.9 GASTRO-ESOPHAGEAL REFLUX DISEASE WITHOUT 04/18/2018 LORENZA FOWLER HECTOR E Ot K22.1 0 ULCER OF ESOPHAGUS WITHOUT BLEEDING 04/18/2018 LORENZA FOWLER HECTOR E Ot M19.9 0 UNSPECIFIED OSTEOARTHRITIS, UNSPECIFIED 04/18/2018 LORENZA FOWLER HECTOR E Ot M54.9 DORSALGIA, UNSPECIFIED 04/18/2018 LORENZA FOWLER HECTOR E Ot R13.1 0 DYSPHAGIA, UNSPECIFIED 04/18/2018 LORENZA FOWLER HECTOR E Ot Z95.0 PRESENCE OF CARDIAC PACEMAKER 04/20/2018 LORENZA FOWLER HECTOR E Ot B37.8 1 CANDIDAL ESOPHAGITIS 04/20/2018 LORENZA FOWLER HECTOR E Ot D50.0 IRON DEFICIENCY ANEMIA SECONDARY TO BLOO 04/20/2018 LORENZA FOWLER HECTOR E Ot E11.9 TYPE 2 DIABETES MELLITUS WITHOUT COMPLIC 04/20/2018 LORENZA FOWLER HECTOR E Ot E78.5 HYPERLIPIDEMIA, UNSPECIFIED 04/20/2018 LORENZA FOWLER HECTOR E Ot G72.8 9 OTHER SPECIFIED MYOPATHIES 04/20/2018 LORENZA FOWLER HECTOR E Ot I10 ESSENTIAL (PRIMARY) HYPERTENSION 04/20/2018 BRITT MD, HECTOR E Ot I48.0 PAROXYSMAL ATRIAL FIBRILLATION 04/20/2018 MITCH BRITT MDIC E Ot I49.5 SICK SINUS SYNDROME 04/20/2018 MITCH BRITT MDIC E Ot I82.A 12 ACUTE EMBOLISM AND THROMBOSIS OF LEFT AX 04/20/2018 MITCH BRITT MDIC E Ot I87.2 VENOUS INSUFFICIENCY (CHRONIC) (PERIPHER 04/20/2018 MITCH BRITT MDIC E Ot K21.9 GASTRO-ESOPHAGEAL REFLUX DISEASE WITHOUT 04/20/2018 LORENZA FOWLER HECTOR E Ot K22.1 0 ULCER OF ESOPHAGUS WITHOUT BLEEDING 04/20/2018 MITCH BRITT MDIC E Ot M19.9 0 UNSPECIFIED OSTEOARTHRITIS, UNSPECIFIED 04/20/2018 MITCH BRITT MDIC E Ot M54.9 DORSALGIA, UNSPECIFIED 04/20/2018 MITCH BRITT MDIC E Ot R13.1 0 DYSPHAGIA, UNSPECIFIED 04/20/2018 LORENZA FOWLER HECTOR E Ot Z95.0 PRESENCE OF CARDIAC PACEMAKER 04/21/2018 MITCH BRITT MDIC E Ot B37.8 1 CANDIDAL ESOPHAGITIS 04/21/2018 MITCH BRITT MDIC E Ot D50.0 IRON DEFICIENCY ANEMIA SECONDARY TO BLOO 04/21/2018 LORENZA FOWLER HECTOR E Ot E11.9 TYPE 2 DIABETES MELLITUS WITHOUT COMPLIC 04/21/2018 LORENZA FOWLER HECTOR E Ot E78.5 HYPERLIPIDEMIA, UNSPECIFIED 04/21/2018 LORENZA FOWLER HECTOR E Ot G72.8 9 OTHER SPECIFIED MYOPATHIES 04/21/2018 LORENZA FOWLER HECTOR E Ot I10 ESSENTIAL (PRIMARY) HYPERTENSION 04/21/2018 MITCH BRITT MDIC E Ot I48.0 PAROXYSMAL ATRIAL FIBRILLATION 04/21/2018 MITCH BRITT MDIC E Ot I49.5 SICK SINUS SYNDROME 04/21/2018 MITCH BRITT MDIC E Ot I82.A 12 ACUTE EMBOLISM AND THROMBOSIS OF LEFT AX 04/21/2018 MITCH BRITT MDIC E Ot I87.2 VENOUS INSUFFICIENCY (CHRONIC) (PERIPHER 04/21/2018 HECTOR BRITT MD E Ot K21.9 GASTRO-ESOPHAGEAL REFLUX DISEASE WITHOUT 04/21/2018 MITCH BRITT MDIC E Ot K22.1 0 ULCER OF ESOPHAGUS WITHOUT BLEEDING 04/21/2018 MITCH BRITT MDIC E Ot M19.9 0 UNSPECIFIED OSTEOARTHRITIS, UNSPECIFIED 04/21/2018 BRITT MD, HECTOR E Ot M54.9 DORSALGIA, UNSPECIFIED 04/21/2018 LORENZA FOWLER HECTOR E Ot R13.1 0 DYSPHAGIA, UNSPECIFIED 04/21/2018 LORENZA FOWLER HECTOR E Ot Z95.0 PRESENCE OF CARDIAC PACEMAKER 04/22/2018 LORENZA FOWLER HECTOR E Ot B37.8 1 CANDIDAL ESOPHAGITIS 04/22/2018 LORENZA FOWLER HECTOR E Ot D50.0 IRON DEFICIENCY ANEMIA SECONDARY TO BLOO 04/22/2018 LORENZA FOWLER HECTOR E Ot E11.9 TYPE 2 DIABETES MELLITUS WITHOUT COMPLIC 04/22/2018 LORENZA FOWLER HECTOR E Ot E78.5 HYPERLIPIDEMIA, UNSPECIFIED 04/22/2018 LORENZA FOWLER HECTOR E Ot G72.8 9 OTHER SPECIFIED MYOPATHIES 04/22/2018 LORENZA FOWLER HECTOR E Ot I10 ESSENTIAL (PRIMARY) HYPERTENSION 04/22/2018 LORENZA FOWLER HECTOR E Ot I48.0 PAROXYSMAL ATRIAL FIBRILLATION 04/22/2018 LORENZA FOWLER HECTOR E Ot I49.5 SICK SINUS SYNDROME 04/22/2018 LORENZA FOWLER HECTOR E Ot I82.A 12 ACUTE EMBOLISM AND THROMBOSIS OF LEFT AX 04/22/2018 LORENZA FOWLER HECTOR E Ot I87.2 VENOUS INSUFFICIENCY (CHRONIC) (PERIPHER 04/22/2018 LORENZA FOWLER HECTOR E Ot K21.9 GASTRO-ESOPHAGEAL REFLUX DISEASE WITHOUT 04/22/2018 LORENZA FOWLER HECTOR E Ot K22.1 0 ULCER OF ESOPHAGUS WITHOUT BLEEDING 04/22/2018 LORENZA FOWLER HECTOR E Ot M19.9 0 UNSPECIFIED OSTEOARTHRITIS, UNSPECIFIED 04/22/2018 LORENZA FOWLER HECTOR E Ot M54.9 DORSALGIA, UNSPECIFIED 04/22/2018 LORENZA FOWLER HECTOR E Ot R13.1 0 DYSPHAGIA, UNSPECIFIED 04/22/2018 LORENZA FOWLER HECTOR E Ot Z95.0 PRESENCE OF CARDIAC PACEMAKER 04/23/2018 LORENZA FOWLER HECTOR E Ot B37.8 1 CANDIDAL ESOPHAGITIS 04/23/2018 LORENZA FOWLER HECTOR E Ot D50.0 IRON DEFICIENCY ANEMIA SECONDARY TO BLOO 04/23/2018 LORENZA FOWLER HECTOR E Ot E11.9 TYPE 2 DIABETES MELLITUS WITHOUT COMPLIC 04/23/2018 LORENZA FOWLER HECTOR E Ot E78.5 HYPERLIPIDEMIA, UNSPECIFIED 04/23/2018 LORENZA FOWLER HECTOR E Ot G72.8 9 OTHER SPECIFIED MYOPATHIES 04/23/2018 MITCH BRITT MDIC E Ot I10 ESSENTIAL (PRIMARY) HYPERTENSION 04/23/2018 MITCH BRITT MDIC E Ot I48.0 PAROXYSMAL ATRIAL FIBRILLATION 04/23/2018 MITCH BRITT MDIC E Ot I49.5 SICK SINUS SYNDROME 04/23/2018 LORENZA FOWLER HECTOR E Ot I82.A 12 ACUTE EMBOLISM AND THROMBOSIS OF LEFT AX 04/23/2018 MITCH BRITT MDIC E Ot I87.2 VENOUS INSUFFICIENCY (CHRONIC) (PERIPHER 04/23/2018 MITCH BRITT MDIC E Ot K21.9 GASTRO-ESOPHAGEAL REFLUX DISEASE WITHOUT 04/23/2018 LORENZA FOWLER HECTOR E Ot K22.1 0 ULCER OF ESOPHAGUS WITHOUT BLEEDING 04/23/2018 MITCH BRITT MDIC E Ot M19.9 0 UNSPECIFIED OSTEOARTHRITIS, UNSPECIFIED 04/23/2018 LORENZA FOWLER HECTOR E Ot M54.9 DORSALGIA, UNSPECIFIED 04/23/2018 LORENZA FOWLER HECTOR E Ot R13.1 0 DYSPHAGIA, UNSPECIFIED 04/23/2018 LORENZA FOWLER HECTOR E Ot Z95.0 PRESENCE OF CARDIAC PACEMAKER 04/24/2018 LORENZA FOWLER HECTOR E Ot B37.8 1 CANDIDAL ESOPHAGITIS 04/24/2018 LORENZA FOWLER HECTOR E Ot D50.0 IRON DEFICIENCY ANEMIA SECONDARY TO BLOO 04/24/2018 LORENZA FOWLER HECTOR E Ot E11.9 TYPE 2 DIABETES MELLITUS WITHOUT COMPLIC 04/24/2018 LORENZA FOWLER HECTOR E Ot E78.5 HYPERLIPIDEMIA, UNSPECIFIED 04/24/2018 LORENZA FOWLER HECTOR E Ot G72.8 9 OTHER SPECIFIED MYOPATHIES 04/24/2018 LORENZA FOWLER HECTOR E Ot I10 ESSENTIAL (PRIMARY) HYPERTENSION 04/24/2018 LORENZA FOWLER HECTOR E Ot I48.0 PAROXYSMAL ATRIAL FIBRILLATION 04/24/2018 MITCH BRITT MDIC E Ot I49.5 SICK SINUS SYNDROME 04/24/2018 MITCH BRITT MDIC E Ot I82.A 12 ACUTE EMBOLISM AND THROMBOSIS OF LEFT AX 04/24/2018 MITCH BRITT MDIC E Ot I87.2 VENOUS INSUFFICIENCY (CHRONIC) (PERIPHER 04/24/2018 MITCH BRITT MDIC E Ot K21.9 GASTRO-ESOPHAGEAL REFLUX DISEASE WITHOUT 04/24/2018 MITCH BRITT MDIC E Ot K22.1 0 ULCER OF ESOPHAGUS WITHOUT BLEEDING 04/24/2018 BRITT MD, HECTOR E Ot M19.9 0 UNSPECIFIED OSTEOARTHRITIS, UNSPECIFIED 04/24/2018 LORENZA FOWLER HECTOR E Ot M54.9 DORSALGIA, UNSPECIFIED 04/24/2018 LORENZA FOWLER HECTOR E Ot R13.1 0 DYSPHAGIA, UNSPECIFIED 04/24/2018 LORENZA FOWLER HECTOR E Ot Z95.0 PRESENCE OF CARDIAC PACEMAKER 04/25/2018 LORENZA FOWLER HECTOR E Ot B37.8 1 CANDIDAL ESOPHAGITIS 04/25/2018 LORENZA FOWLER HECTOR E Ot D50.0 IRON DEFICIENCY ANEMIA SECONDARY TO BLOO 04/25/2018 LORENZA FOWLER HECTOR E Ot E11.9 TYPE 2 DIABETES MELLITUS WITHOUT COMPLIC 04/25/2018 LORENZA FOWLER HECTOR E Ot E78.5 HYPERLIPIDEMIA, UNSPECIFIED 04/25/2018 LORENZA FOWLER HECTOR E Ot G72.8 9 OTHER SPECIFIED MYOPATHIES 04/25/2018 LORENZA FOWLER HECTOR E Ot I10 ESSENTIAL (PRIMARY) HYPERTENSION 04/25/2018 LORENZA FOWLER HECTOR E Ot I48.0 PAROXYSMAL ATRIAL FIBRILLATION 04/25/2018 LORENZA FOWLER HECTOR E Ot I49.5 SICK SINUS SYNDROME 04/25/2018 LORENZA FOWLER HECTOR E Ot I82.A 12 ACUTE EMBOLISM AND THROMBOSIS OF LEFT AX 04/25/2018 LORENZA FOWLER HECTOR E Ot I87.2 VENOUS INSUFFICIENCY (CHRONIC) (PERIPHER 04/25/2018 LORENZA FOWLER HECTOR E Ot K21.9 GASTRO-ESOPHAGEAL REFLUX DISEASE WITHOUT 04/25/2018 LORENZA FOWLER HECTOR E Ot K22.1 0 ULCER OF ESOPHAGUS WITHOUT BLEEDING 04/25/2018 MITCH BRITT MDIC E Ot M19.9 0 UNSPECIFIED OSTEOARTHRITIS, UNSPECIFIED 04/25/2018 LORENZA FOWLER HECTOR E Ot M54.9 DORSALGIA, UNSPECIFIED 04/25/2018 LORENZA FOWLER HECTOR E Ot R13.1 0 DYSPHAGIA, UNSPECIFIED 04/25/2018 LORENZA FOWLER HECTOR E Ot Z95.0 PRESENCE OF CARDIAC PACEMAKER 04/26/2018 LORENZA FOWLER HECTOR E Ot B37.8 1 CANDIDAL ESOPHAGITIS 04/26/2018 LORENZA FOWLER HECTOR E Ot D50.0 IRON DEFICIENCY ANEMIA SECONDARY TO BLOO 04/26/2018 LORENZA FOWLER HECTOR E Ot E11.9 TYPE 2 DIABETES MELLITUS WITHOUT COMPLIC 04/26/2018 LORENZA FOWLER HECTOR E Ot E78.5 HYPERLIPIDEMIA, UNSPECIFIED 04/26/2018 LORENZA FOWLER HECTOR E Ot G72.8 9 OTHER SPECIFIED MYOPATHIES 04/26/2018 MITCH BRITT MDIC E Ot I10 ESSENTIAL (PRIMARY) HYPERTENSION 04/26/2018 MITCH BRITT MDIC E Ot I48.0 PAROXYSMAL ATRIAL FIBRILLATION 04/26/2018 MITCH BRITT MDIC E Ot I49.5 SICK SINUS SYNDROME 04/26/2018 LORENZA FOWLER HECTOR E Ot I82.A 12 ACUTE EMBOLISM AND THROMBOSIS OF LEFT AX 04/26/2018 MITCH BRITT MDIC E Ot I87.2 VENOUS INSUFFICIENCY (CHRONIC) (PERIPHER 04/26/2018 MITCH BRITT MDIC E Ot K21.9 GASTRO-ESOPHAGEAL REFLUX DISEASE WITHOUT 04/26/2018 LORENZA FOWLER HECTOR E Ot K22.1 0 ULCER OF ESOPHAGUS WITHOUT BLEEDING 04/26/2018 LORENZA FOWLER HECTOR E Ot M19.9 0 UNSPECIFIED OSTEOARTHRITIS, UNSPECIFIED 04/26/2018 LORENZA FOWLER HECTOR E Ot M54.9 DORSALGIA, UNSPECIFIED 04/26/2018 LORENZA FOWLER HECTOR E Ot R13.1 0 DYSPHAGIA, UNSPECIFIED 04/26/2018 LORENZA FOWLER HECTOR E Ot Z95.0 PRESENCE OF CARDIAC PACEMAKER 04/27/2018 LORENZA FOWLER HECTOR E Ot B37.8 1 CANDIDAL ESOPHAGITIS 04/27/2018 LORENZA FOWLER HECTOR E Ot D50.0 IRON DEFICIENCY ANEMIA SECONDARY TO BLOO 04/27/2018 LORENZA FOWLER HECTOR E Ot E11.9 TYPE 2 DIABETES MELLITUS WITHOUT COMPLIC 04/27/2018 LORENZA FOWLER HECTOR E Ot E78.5 HYPERLIPIDEMIA, UNSPECIFIED 04/27/2018 LORENZA FOWLER HECTOR E Ot G72.8 9 OTHER SPECIFIED MYOPATHIES 04/27/2018 LORENZA FOWLER HECTRO E Ot I10 ESSENTIAL (PRIMARY) HYPERTENSION 04/27/2018 LORENZA FOWLER HECTOR E Ot I48.0 PAROXYSMAL ATRIAL FIBRILLATION 04/27/2018 MITCH BRITT MDIC E Ot I49.5 SICK SINUS SYNDROME 04/27/2018 LORENZA FOWLER HECTOR E Ot I82.A 12 ACUTE EMBOLISM AND THROMBOSIS OF LEFT AX 04/27/2018 MITCH BRITT MDIC E Ot I87.2 VENOUS INSUFFICIENCY (CHRONIC) (PERIPHER 04/27/2018 MITCH BRITT MDIC E Ot K21.9 GASTRO-ESOPHAGEAL REFLUX DISEASE WITHOUT 04/27/2018 LORENZA FOWLER HECTOR E Ot K22.1 0 ULCER OF ESOPHAGUS WITHOUT BLEEDING 04/27/2018 LORENZA FOWLER HECTOR E Ot M19.9 0 UNSPECIFIED OSTEOARTHRITIS, UNSPECIFIED 04/27/2018 LORENZA FOWLER HECTOR E Ot M54.9 DORSALGIA, UNSPECIFIED 04/27/2018 LORENZA FOWLER HECTOR E Ot R13.1 0 DYSPHAGIA, UNSPECIFIED 04/27/2018 LORENZA FOWLER HECTOR E Ot Z95.0 PRESENCE OF CARDIAC PACEMAKER 04/27/2018 LORENZA FOWLER HECTOR E Ot B37.8 1 CANDIDAL ESOPHAGITIS 04/27/2018 LORENZA FOWLER HECTOR E Ot D50.0 IRON DEFICIENCY ANEMIA SECONDARY TO BLOO 04/27/2018 LORENZA FOWLER HECTOR E Ot E11.9 TYPE 2 DIABETES MELLITUS WITHOUT COMPLIC 04/27/2018 LORENZA FOWLER HECTOR E Ot E78.5 HYPERLIPIDEMIA, UNSPECIFIED 04/27/2018 LORENZA FOWLER HECTOR E Ot G72.8 9 OTHER SPECIFIED MYOPATHIES 04/27/2018 LORENZA FOWLER HECTOR E Ot I10 ESSENTIAL (PRIMARY) HYPERTENSION 04/27/2018 LORENZA FOWLER HECTOR E Ot I48.0 PAROXYSMAL ATRIAL FIBRILLATION 04/27/2018 LORENZA FOWLER HECTOR E Ot I49.5 SICK SINUS SYNDROME 04/27/2018 LORENZA FOWLER HECTOR E Ot I82.A 12 ACUTE EMBOLISM AND THROMBOSIS OF LEFT AX 04/27/2018 LORENZA FOWLER HECTOR E Ot I87.2 VENOUS INSUFFICIENCY (CHRONIC) (PERIPHER 04/27/2018 LORENZA FOWLER HECTOR E Ot K21.9 GASTRO-ESOPHAGEAL REFLUX DISEASE WITHOUT 04/27/2018 LORENZA FOWLER HECTOR E Ot K22.1 0 ULCER OF ESOPHAGUS WITHOUT BLEEDING 04/27/2018 LORENZA FOWLER HECTOR E Ot M19.9 0 UNSPECIFIED OSTEOARTHRITIS, UNSPECIFIED 04/27/2018 LORENZA FOWLER HECTOR E Ot M54.9 DORSALGIA, UNSPECIFIED 04/27/2018 LORENZA FOWLER HECTOR E Ot R13.1 0 DYSPHAGIA, UNSPECIFIED 04/27/2018 LORENZA FOWLER HECTOR E Ot Z95.0 PRESENCE OF CARDIAC PACEMAKER 04/27/2018 LORENZA FOWLER HECTOR E Ot B37.8 1 CANDIDAL ESOPHAGITIS 04/27/2018 LORENZA FOWLER HECTOR E Ot D50.0 IRON DEFICIENCY ANEMIA SECONDARY TO BLOO 04/27/2018 LORENZA FOWLER HECTOR E Ot D69.6 THROMBOCYTOPENIA, UNSPECIFIED 04/27/2018 HECTOR BRITT MD E Ot E11.9 TYPE 2 DIABETES MELLITUS WITHOUT COMPLIC 04/27/2018 HECTOR BRITT MD Ot E78.5 HYPERLIPIDEMIA, UNSPECIFIED 04/27/2018 HECTOR BRITT MD Ot E83.4 2 HYPOMAGNESEMIA 04/27/2018 HECTOR BRITT MD E Ot E87.6 HYPOKALEMIA 04/27/2018 HECTOR BRITT MD Ot G72.8 9 OTHER SPECIFIED MYOPATHIES 04/27/2018 HECTOR BRITT MD Ot I10 ESSENTIAL (PRIMARY) HYPERTENSION 04/27/2018 HECTOR BRITT MD Ot I25.1 0 ATHSCL HEART DISEASE OF [place] CORONARY 04/27/2018 HECTOR BRITT MD Ot I48.0 PAROXYSMAL ATRIAL FIBRILLATION 04/27/2018 HECTOR BRITT MD Ot I49.5 SICK SINUS SYNDROME 04/27/2018 HECTOR BRITT MD E Ot 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 04/27/2018 HECTOR BRITT MD Ot I82.A 12 ACUTE EMBOLISM AND THROMBOSIS OF LEFT AX 04/27/2018 HECTOR BRITT MD E Ot I87.2 VENOUS INSUFFICIENCY (CHRONIC) (PERIPHER 04/27/2018 HECTOR BRITT MD E Ot 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 04/27/2018 HECTOR BRITT MD Ot K21.9 GASTRO-ESOPHAGEAL REFLUX DISEASE WITHOUT 04/27/2018 HECTOR BRITT MD E Ot K22.1 0 ULCER OF ESOPHAGUS WITHOUT BLEEDING 04/27/2018 HECTOR BRITT MD E Ot M19.9 0 UNSPECIFIED OSTEOARTHRITIS, UNSPECIFIED 04/27/2018 HECTOR BRITT MD E Ot M54.9 DORSALGIA, UNSPECIFIED 04/27/2018 HECTOR BRITT MD E Ot R13.1 0 DYSPHAGIA, UNSPECIFIED 04/27/2018 HECTOR BRITT MD Ot R41.0 DISORIENTATION, UNSPECIFIED 04/27/2018 HECTOR BRITT MD E Ot R60.0 LOCALIZED EDEMA 04/27/2018 HECTOR BRITT MD E Ot Z95.0 PRESENCE OF CARDIAC PACEMAKER 05/06/2018 REBEL IVY LOG GETTER Ot 272.4 HYPERLIPIDEMIA NEC/NOS 05/06/2018 REBEL IVY LOG GETTER Ot 401.9 HYPERTENSION NOS 05/06/2018 BAIMA, REBEL L LOG GETTER Ot V58.69 OTH MED,LT,CURRENT USE 05/06/2018 NINILENDER , ADEN Mohr Ot 786.50 CHEST PAIN NOS 05/06/2018 NINILENDER , ADEN Mohr Ot V76.12 OTH SCREEN MAMMO-MALIGN NEOPLASM OF VAN 05/06/2018 NINILENDER DO, ADEN Mohr Ot 250.00 DIAB BHAVIK WO COMPL, TYPE II OR UNSPEC TY 05/06/2018 NINILENDER DO, ADEN Fani Ot 272.4 HYPERLIPIDEMIA NEC/NOS 05/06/2018 CHANDNIIOANA MEYER DO Ot 721.0 CERVICAL SPONDYLOSIS 05/06/2018 BAIMA, REBEL L LOG GETTER Ot 397.0 TRICUSPID VALVE DISEASE 05/06/2018 BAIMA, REBEL L LOG GETTER Ot 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 NEC 05/06/2018 BAIMA, REBEL L LOG GETTER Ot 424.0 MITRAL VALVE DISORDER 05/06/2018 BAIMA, REBEL L LOG GETTER Ot 272.4 HYPERLIPIDEMIA NEC/NOS 05/06/2018 BAIMA, REBEL L LOG GETTER Ot V58.69 OTH MED,LT,CURRENT USE 05/06/2018 JESUS KATE, ADEN Mohr Ot 786.50 CHEST PAIN NOS 05/06/2018 JESUS DO, ADEN Mohr Ot V15.88 HISTORY OF FALL 05/06/2018 BAIMA, REBEL L LOG GETTER Ot 272.4 HYPERLIPIDEMIA NEC/NOS 05/06/2018 NINILENDER , ADEN Fani Ot 250.00 DIAB BHAVIK WO COMPL, TYPE II OR UNSPEC TY 05/06/2018 JESUS KATE, ADEN Mohr Ot 401.9 HYPERTENSION NOS 05/06/2018 JESUS DO, ADEN Fani Ot V76.12 OTH SCREEN MAMMO-MALIGN NEOPLASM OF VAN 05/06/2018 BAIMA, REBEL L LOG GETTER Ot 250.00 DIAB BHAVIK WO COMPL, TYPE II OR UNSPEC TY 05/06/2018 BAIMA, REBEL L LOG GETTER Ot 272.4 HYPERLIPIDEMIA NEC/NOS 05/06/2018 BAIMA, REBEL L LOG GETTER Ot 401.9 HYPERTENSION NOS 05/06/2018 Ot 250.00 TIFFANI B BHAVIK WO COMPL, TYPE II OR UNSPEC TY 05/06/2018 BAIMA, REBEL L LOG GETTER Ot 272.4 HYPERLIPIDEMIA NEC/NOS 05/06/2018 NINILENDER DO, ADEN Mohr Ot 250.00 DIAB BHAVIK WO COMPL, TYPE II OR UNSPEC TY 05/06/2018 GELLENDER DO, ADEN Mohr Ot 401.9 HYPERTENSION NOS 05/06/2018 GELLENDER DO, ADEN Mohr Ot 782.3 EDEMA 05/06/2018 GELLENDER DO, ADEN Mohr Ot Z12.31 ENCNTR SCREEN MAMMOGRAM FOR MALIGNANT NE 05/06/2018 CHANDNI DO, IOANA Mai Ot M16.12 UNILATERAL PRIMARY OSTEOARTHRITIS, LEFT 05/06/2018 CHANDNI DO, IOANA Mai Ot M47.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, LUMBAR REGION 05/06/2018 GELLENDER DO, ADEN Mohr Ot E11.9 TYPE 2 DIABETES MELLITUS WITHOUT COMPLIC 05/06/2018 GELLENDER DO, ADEN Mohr Ot I10 ESSENTIAL (PRIMARY) HYPERTENSION 05/06/2018 Ot E11.9 TYPE 2 DIABETES MELLITUS WITHOUT COMPLIC 05/06/2018 Ot E78.5 HYPE RLIPIDEMIA, UNSPECIFIED 05/06/2018 GELLENDER DO, ADEN Fani Ot E11.9 TYPE 2 DIABETES MELLITUS WITHOUT COMPLIC 05/06/2018 GELLENDER DO, ADEN Mohr Ot E78.5 HYPERLIPIDEMIA, UNSPECIFIED 05/06/2018 GELLENDER DO, ADEN Mohr Ot D69.6 THROMBOCYTOPENIA, UNSPECIFIED 05/06/2018 GELLENDER DO, ADEN Fani Ot D72.819 DECREASED WHITE BLOOD CELL COUNT, UNSPEC 05/06/2018 GELLENDER DO, ADEN Fani Ot Z12.31 ENCNTR SCREEN MAMMOGRAM FOR MALIGNANT NE 05/06/2018 GELLENDER DO, ADEN Fani Ot E11.9 TYPE 2 DIABETES MELLITUS WITHOUT COMPLIC 05/06/2018 GELLENDER DO, ADEN Mohr Ot E78.5 HYPERLIPIDEMIA, UNSPECIFIED 05/06/2018 GELLENDER DO, ADEN Fani Ot I10 ESSENTIAL (PRIMARY) HYPERTENSION 05/06/2018 GELLENDER DO, ADEN Fani Ot E05.90 THYROTOXICOSIS, UNSP WITHOUT THYROTOXIC 05/06/2018 GELLENDER DO, ADEN Fani Ot E11.9 TYPE 2 DIABETES MELLITUS WITHOUT COMPLIC 05/06/2018 GELLENDER DO, ADEN Mohr Ot I10 ESSENTIAL (PRIMARY) HYPERTENSION 05/06/2018 GELLENDER DO, ADEN aFni Ot D69.6 THROMBOCYTOPENIA, UNSPECIFIED 05/06/2018 GELLENDER DO, ADEN Fani Ot E11.9 TYPE 2 DIABETES MELLITUS WITHOUT COMPLIC 05/06/2018 GELLENDER DO, ADEN Mohr Ot E78.5 HYPERLIPIDEMIA, UNSPECIFIED 05/30/2018 ALIDA FOWLER, KARAN Ot D61.818 OTHER PANCYTOPENIA 05/30/2018 ALIDA FOWLER, KARAN Ot E11. 9 TYPE 2 DIABETES MELLITUS WITHOUT COMPLIC 05/30/2018 ALIDA FOWLER, KARAN Ot E78. 5 HYPERLIPIDEMIA, UNSPECIFIED 05/30/2018 ALIDA FOWLER, KARAN Ot I10 ESSENTIAL (PRIMARY) HYPERTENSION 05/30/2018 ALIDA FOWLER, KARAN Ot I25. 10 ATHSCL HEART DISEASE OF [place] CORONARY 05/30/2018 KARAN IRWIN MD, Ot K21. 9 GASTRO-ESOPHAGEAL REFLUX DISEASE WITHOUT 05/30/2018 KARAN IRWIN MD, Ot Z79. 01 CLIENT SERVICES DIRECTOR (CURRENT) USE OF ANTICOAGULANT 05/30/2018 KARAN IRWIN MD Ot Z79. 84 [facility] (CURRENT) USE OF ORAL HYPOGLYC 05/30/2018 KARAN IRWIN MD Ot Z95. 0 PRESENCE OF CARDIAC PACEMAKER 06/04/2018 JESUS DOADEN Ot D64.9 ANEMIA, UNSPECIFIED 06/04/2018 GELLENDER DOADEN Ot D69.6 THROMBOCYTOPENIA, UNSPECIFIED 06/04/2018 GELAYANDER DOADEN Ot E11.9 TYPE 2 DIABETES MELLITUS WITHOUT COMPLIC 06/04/2018 ANNADER ADEN KATE Ot E78.00 PURE HYPERCHOLESTEROLEMIA, UNSPECIFIED 06/04/2018 GELLENDER DOADEN Ot E83.42 HYPOMAGNESEMIA 06/04/2018 ADEN LEE DO Ot I10 ESSENTIAL (PRIMARY) HYPERTENSION 06/04/2018 JESUS DOADEN Ot I25.10 ATHSCL HEART DISEASE OF [place] CORONARY 06/04/2018 GELLENDER DOADEN Ot I48.0 PAROXYSMAL ATRIAL FIBRILLATION 06/04/2018 GELAYANDER DOADEN Ot I63.9 CEREBRAL INFARCTION, UNSPECIFIED 06/04/2018 GELAYANDER DOADEN Ot I87.2 VENOUS INSUFFICIENCY (CHRONIC) (PERIPHER 06/04/2018 GELLENDER ADEN KATE Ot K21.9 GASTRO-ESOPHAGEAL REFLUX DISEASE WITHOUT 06/04/2018 GELLENDER DOADEN Ot M19.91 PRIMARY OSTEOARTHRITIS, UNSPECIFIED SITE 06/04/2018 GELLENDER DOADEN Ot M54.9 DORSALGIA, UNSPECIFIED 06/04/2018 GELLENDER DO, AEDN Mohr Ot R41.0 DISORIENTATION, UNSPECIFIED 06/04/2018 GELLENDER DO, ADEN Mohr Ot R47.02 DYSPHASIA 06/04/2018 GELLENDER DO, ADEN Mohr Ot R53.1 WEAKNESS 06/04/2018 GELLENDER DO, ADEN Mohr Ot R53.83 OTHER FATIGUE 06/04/2018 GELLENDER DO, DAEN Mohr Ot Z23 ENCOUNTER FOR IMMUNIZATION 06/04/2018 GELLENDER DO, ADEN Mohr Ot Z66 DO NOT RESUSCITATE 06/04/2018 GELLENDER DO, ADEN Mohr Ot Z86.711 PERSONAL HISTORY OF PULMONARY EMBOLISM 06/04/2018 GELLENDER DO, ADEN Mohr Ot Z86.718 PERSONAL HISTORY OF OTHER VENOUS THROMBO 06/04/2018 GELLENDER DO, ADEN Mohr Ot Z95.0 PRESENCE OF CARDIAC PACEMAKER 06/04/2018 GELLENDER DO, ADEN Mohr Ot Z95.828 PRESENCE OF OTHER VASCULAR IMPLANTS AND 06/04/2018 GELLENDER DO, AEDN Mohr Ot Z96.651 PRESENCE OF RIGHT ARTIFICIAL KNEE JOINT 06/04/2018 GELLENDER DO, ADEN Mohr Ot Z96.652 PRESENCE OF LEFT ARTIFICIAL KNEE JOINT 06/05/2018 GELLENDER DO, ADEN Mohr Ot D64.9 ANEMIA, UNSPECIFIED 06/05/2018 GELLENDER DO, ADEN Mohr Ot D69.6 THROMBOCYTOPENIA, UNSPECIFIED 06/05/2018 GELLENDER DO, ADEN Mohr Ot E11.9 TYPE 2 DIABETES MELLITUS WITHOUT COMPLIC 06/05/2018 GELLENDER DO, ADEN Mohr Ot E78.00 PURE HYPERCHOLESTEROLEMIA, UNSPECIFIED 06/05/2018 GELLENDER DO, ADEN Mohr Ot E83.42 HYPOMAGNESEMIA 06/05/2018 GELLENDER DO, ADEN Mohr Ot I10 ESSENTIAL (PRIMARY) HYPERTENSION 06/05/2018 GELLENDER DO, ADEN Mohr Ot I25.10 ATHSCL HEART DISEASE OF [place] CORONARY 06/05/2018 GELLENDER DO, ADEN Mohr Ot I48.0 PAROXYSMAL ATRIAL FIBRILLATION 06/05/2018 GELLENDER DO, ADEN Mohr Ot I63.9 CEREBRAL INFARCTION, UNSPECIFIED 06/05/2018 GELLENDER DO, ADEN Mohr Ot I87.2 VENOUS INSUFFICIENCY (CHRONIC) (PERIPHER 06/05/2018 GELLENDER DO, ADEN Mohr Ot K21.9 GASTRO-ESOPHAGEAL REFLUX DISEASE WITHOUT 06/05/2018 GELLENDER DO, ADEN Mohr Ot M19.91 PRIMARY OSTEOARTHRITIS, UNSPECIFIED SITE 06/05/2018 GELLENDER DO, ADEN Mohr Ot M54.9 DORSALGIA, UNSPECIFIED 06/05/2018 GELLENDER DO, ADEN Mohr Ot R41.0 DISORIENTATION, UNSPECIFIED 06/05/2018 GELLENDER DO, ADEN Mohr Ot R47.02 DYSPHASIA 06/05/2018 GELLENDER DO, ADEN Mohr Ot R53.1 WEAKNESS 06/05/2018 GELLENDER DO, ADEN Mohr Ot R53.83 OTHER FATIGUE 06/05/2018 GELLENDER DO, ADEN Mohr Ot Z23 ENCOUNTER FOR IMMUNIZATION 06/05/2018 GEL, ADEN Mohr Ot Z66 DO NOT RESUSCITATE 06/05/2018 GELLENDER DO, ADEN Mohr Ot Z86.711 PERSONAL HISTORY OF PULMONARY EMBOLISM 06/05/2018 GELLENDER DO, ADEN Mohr Ot Z86.718 PERSONAL HISTORY OF OTHER VENOUS THROMBO 06/05/2018 GELLENDER , ADEN Mohr Ot Z95.0 PRESENCE OF CARDIAC PACEMAKER 06/05/2018 GELLENDER DO, ADEN Mohr Ot Z95.828 PRESENCE OF OTHER VASCULAR IMPLANTS AND 06/05/2018 GELLENDER DO, ADEN Mohr Ot Z96.651 PRESENCE OF RIGHT ARTIFICIAL KNEE JOINT 06/05/2018 GELLENDER DO, ADEN Mohr Ot Z96.652 PRESENCE OF LEFT ARTIFICIAL KNEE JOINT 06/06/2018 GELLENDER DO, ADEN Mohr Ot D64.9 ANEMIA, UNSPECIFIED 06/06/2018 GELLENDER DO, ADEN Mohr Ot D69.6 THROMBOCYTOPENIA, UNSPECIFIED 06/06/2018 GELLENDER DO, ADEN Mohr Ot E11.9 TYPE 2 DIABETES MELLITUS WITHOUT COMPLIC 06/06/2018 GELLENDER DO, ADEN Mohr Ot E78.00 PURE HYPERCHOLESTEROLEMIA, UNSPECIFIED 06/06/2018 GELLENDER DO, ADEN Mohr Ot E83.42 HYPOMAGNESEMIA 06/06/2018 GELLENDER DO, ADEN Mohr Ot I10 ESSENTIAL (PRIMARY) HYPERTENSION 06/06/2018 GELLENDER DO, ADEN Mohr Ot I25.10 ATHSCL HEART DISEASE OF [place] CORONARY 06/06/2018 GELDER DO, ADEN Mohr Ot I48.0 PAROXYSMAL ATRIAL FIBRILLATION 06/06/2018 GELLENDER DO, ADEN Mohr Ot I63.9 CEREBRAL INFARCTION, UNSPECIFIED 06/06/2018 GELLENDER DO, ADEN Mohr Ot I87.2 VENOUS INSUFFICIENCY (CHRONIC) (PERIPHER 06/06/2018 GELLENDER DO, ADEN Mohr Ot K21.9 GASTRO-ESOPHAGEAL REFLUX DISEASE WITHOUT 06/06/2018 GELLENDER DO, ADEN Mohr Ot M19.91 PRIMARY OSTEOARTHRITIS, UNSPECIFIED SITE 06/06/2018 GELLENDER DO, ADEN Mohr Ot M54.9 DORSALGIA, UNSPECIFIED 06/06/2018 GELLENDER DO, ADEN Mohr Ot R41.0 DISORIENTATION, UNSPECIFIED 06/06/2018 GELLENDER DO, ADEN Mohr Ot R47.02 DYSPHASIA 06/06/2018 GELLENDER DO, ADEN Mohr Ot R53.1 WEAKNESS 06/06/2018 GELLENDER DO, ADEN Mohr Ot R53.83 OTHER FATIGUE 06/06/2018 GELLENDER DO, ADEN Mohr Ot Z23 ENCOUNTER FOR IMMUNIZATION 06/06/2018 GELLENDER DO, ADEN Mohr Ot Z66 DO NOT RESUSCITATE 06/06/2018 GELLENDER DO, ADEN Mohr Ot Z86.711 PERSONAL HISTORY OF PULMONARY EMBOLISM 06/06/2018 GELLENDER DO, ADEN Mohr Ot Z86.718 PERSONAL HISTORY OF OTHER VENOUS THROMBO 06/06/2018 GELLENDER DO, ADEN Mohr Ot Z95.0 PRESENCE OF CARDIAC PACEMAKER 06/06/2018 GELLENDER DO, ADEN Mohr Ot Z95.828 PRESENCE OF OTHER VASCULAR IMPLANTS AND 06/06/2018 GELLENDER DO, ADEN Mohr Ot Z96.651 PRESENCE OF RIGHT ARTIFICIAL KNEE JOINT 06/06/2018 GELLENDER DO, ADEN Mohr Ot Z96.652 PRESENCE OF LEFT ARTIFICIAL KNEE JOINT 06/06/2018 GELLENDER DO, ADEN Mohr Ot D64.9 ANEMIA, UNSPECIFIED 06/06/2018 GELLENDER DO, ADEN Mohr Ot D69.6 THROMBOCYTOPENIA, UNSPECIFIED 06/06/2018 GELLENDER DO, ADEN Mohr Ot E11.9 TYPE 2 DIABETES MELLITUS WITHOUT COMPLIC 06/06/2018 GELLENDER DO, ADEN Mohr Ot E78.00 PURE HYPERCHOLESTEROLEMIA, UNSPECIFIED 06/06/2018 GELLENDER DO, ADEN Mohr Ot E83.42 HYPOMAGNESEMIA 06/06/2018 GELLENDER DO, ADEN Mohr Ot I10 ESSENTIAL (PRIMARY) HYPERTENSION 06/06/2018 GELLENDER DO, ADEN Mohr Ot I25.10 ATHSCL HEART DISEASE OF [place] CORONARY 06/06/2018 GELLENDER DO, ADEN Mohr Ot I48.0 PAROXYSMAL ATRIAL FIBRILLATION 06/06/2018 GELLENDER DO, ADEN Mohr Ot I63.9 CEREBRAL INFARCTION, UNSPECIFIED 06/06/2018 GELLENDER DO, ADEN Mohr Ot I87.2 VENOUS INSUFFICIENCY (CHRONIC) (PERIPHER 06/06/2018 GELLENDER DO, ADEN Mohr Ot K21.9 GASTRO-ESOPHAGEAL REFLUX DISEASE WITHOUT 06/06/2018 GELLENDER DO, ADEN Mohr Ot M19.91 PRIMARY OSTEOARTHRITIS, UNSPECIFIED SITE 06/06/2018 GELLENDER DO, ADEN Mohr Ot M54.9 DORSALGIA, UNSPECIFIED 06/06/2018 GELLENDER DO, ADEN Mohr Ot R41.0 DISORIENTATION, UNSPECIFIED 06/06/2018 GELLENDER DO, ADEN Mohr Ot R47.02 DYSPHASIA 06/06/2018 GELLENDER DO, ADEN Mohr Ot R53.1 WEAKNESS 06/06/2018 GELLENDER DO, ADEN Mohr Ot R53.83 OTHER FATIGUE 06/06/2018 GELLENDER DO, ADEN Mohr Ot Z23 ENCOUNTER FOR IMMUNIZATION 06/06/2018 GELLENDER DO, ADEN Mohr Ot Z66 DO NOT RESUSCITATE 06/06/2018 GELLENDER DO, ADEN Mohr Ot Z86.711 PERSONAL HISTORY OF PULMONARY EMBOLISM 06/06/2018 GELLENDER DO, ADEN Mohr Ot Z86.718 PERSONAL HISTORY OF OTHER VENOUS THROMBO 06/06/2018 GELLENDER DO, ADEN Mohr Ot Z95.0 PRESENCE OF CARDIAC PACEMAKER 06/06/2018 GELLENDER DO, ADEN Mohr Ot Z95.828 PRESENCE OF OTHER VASCULAR IMPLANTS AND 06/06/2018 GELLENDER DO, ADEN Mohr Ot Z96.651 PRESENCE OF RIGHT ARTIFICIAL KNEE JOINT 06/06/2018 GELLENDER DO, ADEN Mohr Ot Z96.652 PRESENCE OF LEFT ARTIFICIAL KNEE JOINT 06/07/2018 GELLENDER DO, ADEN Mohr Ot D64.9 ANEMIA, UNSPECIFIED 06/07/2018 GELLENDER DO, ADEN Mohr Ot D69.6 THROMBOCYTOPENIA, UNSPECIFIED 06/07/2018 GELLENDER DO, ADEN Mohr Ot E11.9 TYPE 2 DIABETES MELLITUS WITHOUT COMPLIC 06/07/2018 GELLENDER DO, ADEN Mohr Ot E78.00 PURE HYPERCHOLESTEROLEMIA, UNSPECIFIED 06/07/2018 GELLENDER DO, ADEN Mohr Ot E83.42 HYPOMAGNESEMIA 06/07/2018 GELLENDER DO, ADEN Mohr Ot I10 ESSENTIAL (PRIMARY) HYPERTENSION 06/07/2018 GELLENDER DO, ADEN Mohr Ot I25.10 ATHSCL HEART DISEASE OF [place] CORONARY 06/07/2018 GELLENDER DO, ADEN Mohr Ot I48.0 PAROXYSMAL ATRIAL FIBRILLATION 06/07/2018 GELLENDER DO, ADEN Mohr Ot I63.9 CEREBRAL INFARCTION, UNSPECIFIED 06/07/2018 GELLENDER DO, ADEN Mohr Ot I87.2 VENOUS INSUFFICIENCY (CHRONIC) (PERIPHER 06/07/2018 GELLENDER DO, ADEN Mohr Ot K21.9 GASTRO-ESOPHAGEAL REFLUX DISEASE WITHOUT 06/07/2018 GELLENDER DO, ADEN Mohr Ot M19.91 PRIMARY OSTEOARTHRITIS, UNSPECIFIED SITE 06/07/2018 GELLENDER DO, ADEN Mohr Ot M54.9 DORSALGIA, UNSPECIFIED 06/07/2018 GELLENDER DO, ADEN Mohr Ot R41.0 DISORIENTATION, UNSPECIFIED 06/07/2018 GELLENDER DO, ADEN Mohr Ot R47.02 DYSPHASIA 06/07/2018 GELLENDER DO, ADEN Mohr Ot R53.1 WEAKNESS 06/07/2018 GELLENDER DO, ADEN Mohr Ot R53.83 OTHER FATIGUE 06/07/2018 GELLENDER DO, ADEN Mohr Ot Z23 ENCOUNTER FOR IMMUNIZATION 06/07/2018 GELLENDER DO, ADEN Mohr Ot Z66 DO NOT RESUSCITATE 06/07/2018 GELLENDER DO, ADEN Mohr Ot Z86.711 PERSONAL HISTORY OF PULMONARY EMBOLISM 06/07/2018 GELLENDER DO, ADEN Mohr Ot Z86.718 PERSONAL HISTORY OF OTHER VENOUS THROMBO 06/07/2018 GELLENDER DO, ADEN Mohr Ot Z95.0 PRESENCE OF CARDIAC PACEMAKER 06/07/2018 GELLENDER DO, ADEN Mohr Ot Z95.828 PRESENCE OF OTHER VASCULAR IMPLANTS AND 06/07/2018 GELLENDER DO, ADEN Mohr Ot Z96.651 PRESENCE OF RIGHT ARTIFICIAL KNEE JOINT 06/07/2018 GELLENDER DO, ADEN Mohr Ot Z96.652 PRESENCE OF LEFT ARTIFICIAL KNEE JOINT 06/07/2018 GELLENDER DO, ADEN Mohr Ot D64.9 ANEMIA, UNSPECIFIED 06/07/2018 GELLENDER DO, ADEN Mohr Ot D69.6 THROMBOCYTOPENIA, UNSPECIFIED 06/07/2018 GELLENDER DO, ADEN Mohr Ot E11.9 TYPE 2 DIABETES MELLITUS WITHOUT COMPLIC 06/07/2018 GELLENDER DO, ADEN Mohr Ot E78.00 PURE HYPERCHOLESTEROLEMIA, UNSPECIFIED 06/07/2018 GELLENDER DO, ADEN Mohr Ot E83.42 HYPOMAGNESEMIA 06/07/2018 GELLENDER DO, ADEN Mohr Ot I10 ESSENTIAL (PRIMARY) HYPERTENSION 06/07/2018 GELLENDER DO, ADEN Mohr Ot I25.10 ATHSCL HEART DISEASE OF [place] CORONARY 06/07/2018 GELLENDER DO, ADEN Mohr Ot I48.0 PAROXYSMAL ATRIAL FIBRILLATION 06/07/2018 GELLENDER DO, ADEN Mohr Ot I63.9 CEREBRAL INFARCTION, UNSPECIFIED 06/07/2018 GELLENDER DO, ADEN Mohr Ot I87.2 VENOUS INSUFFICIENCY (CHRONIC) (PERIPHER 06/07/2018 GELLENDER DO, ADEN Mohr Ot K21.9 GASTRO-ESOPHAGEAL REFLUX DISEASE WITHOUT 06/07/2018 GELLENDER DO, ADEN Mohr Ot M19.91 PRIMARY OSTEOARTHRITIS, UNSPECIFIED SITE 06/07/2018 GELLENDER DO, ADEN Mohr Ot M54.9 DORSALGIA, UNSPECIFIED 06/07/2018 GELLENDER DO, ADEN Mohr Ot R41.0 DISORIENTATION, UNSPECIFIED 06/07/2018 GELLENDER DO, ADEN Mohr Ot R47.02 DYSPHASIA 06/07/2018 GELLENDER DO, ADEN Mohr Ot R53.1 WEAKNESS 06/07/2018 GELLENDER DO, ADEN Mohr Ot R53.83 OTHER FATIGUE 06/07/2018 GELLENDER DO, ADEN Mohr Ot Z23 ENCOUNTER FOR IMMUNIZATION 06/07/2018 GELLENDER DO, ADEN Mohr Ot Z66 DO NOT RESUSCITATE 06/07/2018 GELLENDER DO, ADEN Mohr Ot Z86.711 PERSONAL HISTORY OF PULMONARY EMBOLISM 06/07/2018 GELLENDER DO, ADEN Mohr Ot Z86.718 PERSONAL HISTORY OF OTHER VENOUS THROMBO 06/07/2018 GELLENDER DO, ADEN Mohr Ot Z95.0 PRESENCE OF CARDIAC PACEMAKER 06/07/2018 GELLENDER DO, ADEN Mohr Ot Z95.828 PRESENCE OF OTHER VASCULAR IMPLANTS AND 06/07/2018 GELLENDER DO, ADEN Mohr Ot Z96.651 PRESENCE OF RIGHT ARTIFICIAL KNEE JOINT 06/07/2018 GELLENDER DO, ADEN Mohr Ot Z96.652 PRESENCE OF LEFT ARTIFICIAL KNEE JOINT 06/07/2018 GELLENDER DO, ADEN Mohr Ot D64.9 ANEMIA, UNSPECIFIED 06/07/2018 GELLENDER DO, ADEN Mohr Ot D69.6 THROMBOCYTOPENIA, UNSPECIFIED 06/07/2018 GELLENDER DO, ADEN Mohr Ot E11.9 TYPE 2 DIABETES MELLITUS WITHOUT COMPLIC 06/07/2018 GELLENDER DO, ADEN Mohr Ot E78.00 PURE HYPERCHOLESTEROLEMIA, UNSPECIFIED 06/07/2018 GELLENDER DO, ADEN Mohr Ot E83.42 HYPOMAGNESEMIA 06/07/2018 GELLENDER DO, ADEN Mohr Ot I10 ESSENTIAL (PRIMARY) HYPERTENSION 06/07/2018 GELLENDER DO, ADEN Mohr Ot I25.10 ATHSCL HEART DISEASE OF [place] CORONARY 06/07/2018 GELLENDER DO, ADEN Mohr Ot I48.0 PAROXYSMAL ATRIAL FIBRILLATION 06/07/2018 GELLENDER DO, ADEN Mohr Ot I63.9 CEREBRAL INFARCTION, UNSPECIFIED 06/07/2018 GELLENDER DO, ADEN Mohr Ot I87.2 VENOUS INSUFFICIENCY (CHRONIC) (PERIPHER 06/07/2018 GELLENDER DO, ADEN Mohr Ot K21.9 GASTRO-ESOPHAGEAL REFLUX DISEASE WITHOUT 06/07/2018 GELLENDER DO, ADEN Mohr Ot M19.91 PRIMARY OSTEOARTHRITIS, UNSPECIFIED SITE 06/07/2018 GELLENDER DO, ADEN Mohr Ot M54.9 DORSALGIA, UNSPECIFIED 06/07/2018 GELLENDER DO, ADEN Mohr Ot R41.0 DISORIENTATION, UNSPECIFIED 06/07/2018 GELLENDER DO, ADEN Mohr Ot R47.02 DYSPHASIA 06/07/2018 GELLENDER DO, ADEN Mohr Ot R53.1 WEAKNESS 06/07/2018 GELLENDER DO, ADEN Mohr Ot R53.83 OTHER FATIGUE 06/07/2018 GELLENDER DO, ADEN Mohr Ot Z23 ENCOUNTER FOR IMMUNIZATION 06/07/2018 GELLENDER DO, ADEN Mohr Ot Z66 DO NOT RESUSCITATE 06/07/2018 GELLENDER DO, ADEN Mohr Ot Z86.711 PERSONAL HISTORY OF PULMONARY EMBOLISM 06/07/2018 GELLENDER DO, ADEN Mohr Ot Z86.718 PERSONAL HISTORY OF OTHER VENOUS THROMBO 06/07/2018 GELLENDER DO, ADEN Mohr Ot Z95.0 PRESENCE OF CARDIAC PACEMAKER 06/07/2018 GELLENDER DO, ADEN Mohr Ot Z95.828 PRESENCE OF OTHER VASCULAR IMPLANTS AND 06/07/2018 GELLENDER DO, ADEN Mohr Ot Z96.651 PRESENCE OF RIGHT ARTIFICIAL KNEE JOINT 06/07/2018 GELLENDER DO, ADEN Mohr Ot Z96.652 PRESENCE OF LEFT ARTIFICIAL KNEE JOINT 06/08/2018 GELLENDER DO, ADEN Mohr Ot D64.9 ANEMIA, UNSPECIFIED 06/08/2018 GELLENDER DO, ADEN Mohr Ot D69.6 THROMBOCYTOPENIA, UNSPECIFIED 06/08/2018 GELLENDER DO, ADEN Mohr Ot E11.9 TYPE 2 DIABETES MELLITUS WITHOUT COMPLIC 06/08/2018 GELLENDER DO, ADEN Mohr Ot E78.00 PURE HYPERCHOLESTEROLEMIA, UNSPECIFIED 06/08/2018 GELLENDER DO, ADEN Mohr Ot E83.42 HYPOMAGNESEMIA 06/08/2018 GELLENDER DO, ADEN Mohr Ot I10 ESSENTIAL (PRIMARY) HYPERTENSION 06/08/2018 GELLENDER DO, ADEN Mohr Ot I25.10 ATHSCL HEART DISEASE OF [place] CORONARY 06/08/2018 GEL, ADEN Mohr Ot I48.0 PAROXYSMAL ATRIAL FIBRILLATION 06/08/2018 GELLENDER , ADEN Mohr Ot I63.9 CEREBRAL INFARCTION, UNSPECIFIED 06/08/2018 GELLENDER DO, ADEN Mohr Ot I87.2 VENOUS INSUFFICIENCY (CHRONIC) (PERIPHER 06/08/2018 GELDER DO, ADNE Mohr Ot K21.9 GASTRO-ESOPHAGEAL REFLUX DISEASE WITHOUT 06/08/2018 GELLENDER DO, ADEN Mohr Ot M19.91 PRIMARY OSTEOARTHRITIS, UNSPECIFIED SITE 06/08/2018 GELLENDER , ADEN Mohr Ot M54.9 DORSALGIA, UNSPECIFIED 06/08/2018 GELLENDER DO, ADEN Mohr Ot R41.0 DISORIENTATION, UNSPECIFIED 06/08/2018 GELLENDER DO, ADEN Mohr Ot R47.02 DYSPHASIA 06/08/2018 GELLENDER DO, ADEN Mohr Ot R53.1 WEAKNESS 06/08/2018 GELLENDER DO, ADEN Mohr Ot R53.83 OTHER FATIGUE 06/08/2018 GELLENDER DO, ADEN Mohr Ot Z23 ENCOUNTER FOR IMMUNIZATION 06/08/2018 GELLENDER DO, ADEN Mohr Ot Z66 DO NOT RESUSCITATE 06/08/2018 GELLENDER DO, AEDN Mohr Ot Z86.711 PERSONAL HISTORY OF PULMONARY EMBOLISM 06/08/2018 GELLENDER DO, ADEN Mohr Ot Z86.718 PERSONAL HISTORY OF OTHER VENOUS THROMBO 06/08/2018 GELLENDER DO, ADEN Mohr Ot Z95.0 PRESENCE OF CARDIAC PACEMAKER 06/08/2018 GELLENDER DO, ADEN Mohr Ot Z95.828 PRESENCE OF OTHER VASCULAR IMPLANTS AND 06/08/2018 GELLENDER DO, ADEN Mohr Ot Z96.651 PRESENCE OF RIGHT ARTIFICIAL KNEE JOINT 06/08/2018 GELLENDER DO, ADEN Mohr Ot Z96.652 PRESENCE OF LEFT ARTIFICIAL KNEE JOINT 06/08/2018 GELLENDER DO, ADEN Mohr Ot D64.9 ANEMIA, UNSPECIFIED 06/08/2018 GELLENDER DO, ADEN Mohr Ot D69.6 THROMBOCYTOPENIA, UNSPECIFIED 06/08/2018 GELLENDER DO, ADEN Mohr Ot E11.9 TYPE 2 DIABETES MELLITUS WITHOUT COMPLIC 06/08/2018 GELLENDER DO, ADEN Mohr Ot E66.09 OTHER OBESITY DUE TO EXCESS CALORIES 06/08/2018 GELLENDER DO, ADEN Mohr Ot E78.00 PURE HYPERCHOLESTEROLEMIA, UNSPECIFIED 06/08/2018 GELLENDER DO, ADEN Mohr Ot E83.42 HYPOMAGNESEMIA 06/08/2018 GELLENDER DO, ADEN Mohr Ot I10 ESSENTIAL (PRIMARY) HYPERTENSION 06/08/2018 GELLENDER DO, ADEN Mohr Ot I25.10 ATHSCL HEART DISEASE OF [place] CORONARY 06/08/2018 GELLENDER DO, ADEN Mohr Ot I48.0 PAROXYSMAL ATRIAL FIBRILLATION 06/08/2018 GELLENDER DO, ADEN Mohr Ot I63.9 CEREBRAL INFARCTION, UNSPECIFIED 06/08/2018 GELLENDER DO, ADEN Mohr Ot 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 06/08/2018 GELLENDER DO, ADEN Mohr Ot I87.2 VENOUS INSUFFICIENCY (CHRONIC) (PERIPHER 06/08/2018 GELLENDER DO, ADEN Mohr Ot K21.9 GASTRO-ESOPHAGEAL REFLUX DISEASE WITHOUT 06/08/2018 GELLENDER DO, ADEN Mohr Ot M19.91 PRIMARY OSTEOARTHRITIS, UNSPECIFIED SITE 06/08/2018 GELLENDER DO, ADEN Mohr Ot M54.9 DORSALGIA, UNSPECIFIED 06/08/2018 GELLENDER DO, ADEN Mohr Ot R13.13 DYSPHAGIA, PHARYNGEAL PHASE 06/08/2018 GELLENDER DO, ADEN Mohr Ot R41.0 DISORIENTATION, UNSPECIFIED 06/08/2018 GELLENDER DO, ADEN Mohr Ot R47.02 DYSPHASIA 06/08/2018 GELLENDER DO, ADEN Mohr Ot R53.1 WEAKNESS 06/08/2018 GELLENDER DOADEN Ot R53.83 OTHER FATIGUE 06/08/2018 GELLENDER DO, ADEN Mohr Ot Z23 ENCOUNTER FOR IMMUNIZATION 06/08/2018 JESUS KATE, ADEN Mohr Ot Z66 DO NOT RESUSCITATE 06/08/2018 JESUS KATE, ADEN Mohr Ot Z68.41 BODY MASS INDEX (BMI) 40.0-44.9, ADULT 06/08/2018 JESUS KATE, ADEN Mohr Ot Z86.711 PERSONAL HISTORY OF PULMONARY EMBOLISM 06/08/2018 JESUS KATE, ADEN Mohr Ot Z86.718 PERSONAL HISTORY OF OTHER VENOUS THROMBO 06/08/2018 JESUS KATE, ADEN Mohr Ot Z95.0 PRESENCE OF CARDIAC PACEMAKER 06/08/2018 JESUS KATE, ADEN Mohr Ot Z95.828 PRESENCE OF OTHER VASCULAR IMPLANTS AND 06/08/2018 JESUS KATE ADEN Mohr Ot Z96.651 PRESENCE OF RIGHT ARTIFICIAL KNEE JOINT 06/08/2018 JESUS KATE ADEN Mohr Ot Z96.652 PRESENCE OF LEFT ARTIFICIAL KNEE JOINT 06/11/2018 KATHLEEN IVYHER L LOG GETTER Ot 272.4 HYPERLIPIDEMIA NEC/NOS 06/11/2018 BIJU REBEL L LOG GETTER Ot 401.9 HYPERTENSION NOS 06/11/2018 KATHLEEN IVYHER L LOG GETTER Ot V58.69 OTH MED,LT,CURRENT USE 06/11/2018 JESUS KATEADEN Ot 786.50 CHEST PAIN NOS 06/11/2018 JESUS KATE ADEN Fani Ot V76.12 OTH SCREEN MAMMO-MALIGN NEOPLASM OF VAN 06/11/2018 JESUS KATEADEN Ot 250.00 DIAB BHAVIK WO COMPL, TYPE II OR UNSPEC TY 06/11/2018 JESUS KATEADEN Ot 272.4 HYPERLIPIDEMIA NEC/NOS 06/11/2018 IOANA TARIQ DO Ot 721.0 CERVICAL SPONDYLOSIS 06/11/2018 BIJU REBEL L LOG GETTER Ot 397.0 TRICUSPID VALVE DISEASE 06/11/2018 BIJU REBEL L LOG GETTER Ot 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 NEC 06/11/2018 BIJU REBEL L LOG GETTER Ot 424.0 MITRAL VALVE DISORDER 06/11/2018 BIJU REBEL L LOG GETTER Ot 272.4 HYPERLIPIDEMIA NEC/NOS 06/11/2018 BIJU REBEL L LOG GETTER Ot V58.69 OTH MED,LT,CURRENT USE 06/11/2018 JESUS KATEADEN Ot 786.50 CHEST PAIN NOS 06/11/2018 GELLENDER DO, ADEN Mohr Ot V15.88 HISTORY OF FALL 06/11/2018 BAIHOSEA, REBEL L LOG GETTER Ot 272.4 HYPERLIPIDEMIA NEC/NOS 06/11/2018 GELLENDER DO, ADEN Mohr Ot 250.00 DIAB BHAVIK WO COMPL, TYPE II OR UNSPEC TY 06/11/2018 GELLENDER DO, ADEN Mohr Ot 401.9 HYPERTENSION NOS 06/11/2018 GELLENDER DO, ADEN Mohr Ot V76.12 OTH SCREEN MAMMO-MALIGN NEOPLASM OF VAN 06/11/2018 BAIMA, REBEL L LOG GETTER Ot 250.00 DIAB BHAVIK WO COMPL, TYPE II OR UNSPEC TY 06/11/2018 BAIMA, REBEL L LOG GETTER Ot 272.4 HYPERLIPIDEMIA NEC/NOS 06/11/2018 BAIMA, REBEL L LOG GETTER Ot 401.9 HYPERTENSION NOS 06/11/2018 Ot 250.00 TIFFANI B BHAVIK WO COMPL, TYPE II OR UNSPEC TY 06/11/2018 BAIMA, REBEL L LOG GETTER Ot 272.4 HYPERLIPIDEMIA NEC/NOS 06/11/2018 GELLENDER DO, ADEN Mohr Ot 250.00 DIAB BHAVIK WO COMPL, TYPE II OR UNSPEC TY 06/11/2018 GELLENDER DO, ADEN Mohr Ot 401.9 HYPERTENSION NOS 06/11/2018 GELLENDER DO, ADEN Mohr Ot 782.3 EDEMA 06/11/2018 GELLENDER DO, ADEN Mohr Ot Z12.31 ENCNTR SCREEN MAMMOGRAM FOR MALIGNANT NE 06/11/2018 CHANDNI DO, IOANA Mai Ot M16.12 UNILATERAL PRIMARY OSTEOARTHRITIS, LEFT 06/11/2018 CHANDNI DO, IOANA Mai Ot M47.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, LUMBAR REGION 06/11/2018 GELLENDER DO, ADEN Mohr Ot E11.9 TYPE 2 DIABETES MELLITUS WITHOUT COMPLIC 06/11/2018 GELLENDER DOADEN Ot I10 ESSENTIAL (PRIMARY) HYPERTENSION 06/11/2018 Ot E11.9 TYPE 2 DIABETES MELLITUS WITHOUT COMPLIC 06/11/2018 Ot E78.5 HYPE RLIPIDEMIA, UNSPECIFIED 06/11/2018 GELLENDER DO, ADEN Mohr Ot E11.9 TYPE 2 DIABETES MELLITUS WITHOUT COMPLIC 06/11/2018 GELLENDER DO, ADEN Mohr Ot E78.5 HYPERLIPIDEMIA, UNSPECIFIED 06/11/2018 GELLENDER DOADEN Ot D69.6 THROMBOCYTOPENIA, UNSPECIFIED 06/11/2018 GELLENDER DO, ADEN Mohr Ot D72.819 DECREASED WHITE BLOOD CELL COUNT, UNSPEC 06/11/2018 GELLENDER DO, ADEN Fani Ot Z12.31 ENCNTR SCREEN MAMMOGRAM FOR MALIGNANT NE 06/11/2018 GELLENDER DO, ADEN Fani Ot E11.9 TYPE 2 DIABETES MELLITUS WITHOUT COMPLIC 06/11/2018 GELLENDER DO, ADEN Fani Ot E78.5 HYPERLIPIDEMIA, UNSPECIFIED 06/11/2018 GELLENDER DO, ADEN Fani Ot I10 ESSENTIAL (PRIMARY) HYPERTENSION 06/11/2018 GELLENDER DO, ADEN Fani Ot E05.90 THYROTOXICOSIS, UNSP WITHOUT THYROTOXIC 06/11/2018 GELLENDER DO, ADEN Fani Ot E11.9 TYPE 2 DIABETES MELLITUS WITHOUT COMPLIC 06/11/2018 GELLENDER DO, ADEN Fani Ot I10 ESSENTIAL (PRIMARY) HYPERTENSION 06/11/2018 GELLENDER DO, ADEN Mohr Ot D69.6 THROMBOCYTOPENIA, UNSPECIFIED 06/11/2018 GELLENDER DO, ADEN Mohr Ot E11.9 TYPE 2 DIABETES MELLITUS WITHOUT COMPLIC 06/11/2018 GELLENDER DO, ADEN Mohr Ot E78.5 HYPERLIPIDEMIA, UNSPECIFIED 06/11/2018 KARAN IRWIN MD, Ot D61.818 OTHER PANCYTOPENIA 06/11/2018 KARAN IRWIN MD Ot E11. 9 TYPE 2 DIABETES MELLITUS WITHOUT COMPLIC 06/11/2018 KARAN IRWIN MD, Ot E78. 5 HYPERLIPIDEMIA, UNSPECIFIED 06/11/2018 KARAN IRWIN MD Ot I10 ESSENTIAL (PRIMARY) HYPERTENSION 06/11/2018 KARAN IRWIN MD Ot I25. 10 ATHSCL HEART DISEASE OF [place] CORONARY 06/11/2018 KARAN IRWIN MD Ot K21. 9 GASTRO-ESOPHAGEAL REFLUX DISEASE WITHOUT 06/11/2018 KARAN IRWIN MD, Ot Z79. 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 0 PRESENCE OF CARDIAC PACEMAKER 06/11/2018 GELLENDER DO, ADEN Mohr Ot M79.601 PAIN IN RIGHT ARM 06/14/2018 GELLENDER DO, ADEN Mohr Ot M79.601 PAIN IN RIGHT ARM 06/14/2018 GELLENDER DO, ADEN Mohr Ot M79.89 OTHER SPECIFIED SOFT TISSUE DISORDERS 07/05/2018 JESUS DO, ADEN Mohr Ot M79.601 PAIN IN RIGHT ARM 07/05/2018 ANNADER , ADEN Mohr Ot M79.89 OTHER SPECIFIED SOFT TISSUE DISORDERS 07/20/2018 JESUS KATE, ADEN Mohr Ot M79.601 PAIN IN RIGHT ARM 07/20/2018 NINILENDER , ADEN Mohr Ot M79.89 OTHER SPECIFIED SOFT TISSUE DISORDERS 08/07/2018 JESUS KAET, ADEN Mohr Ot 786.50 CHEST PAIN NOS 08/07/2018 JESUS KATE, ADEN Mohr Ot V76.12 OTH SCREEN MAMMO-MALIGN NEOPLASM OF VAN 08/07/2018 JESUS KATE, ADEN Mohr Ot 250.00 DIAB BHAVIK WO COMPL, TYPE II OR UNSPEC TY 08/07/2018 JESUS KATE, ADEN Mohr Ot 272.4 HYPERLIPIDEMIA NEC/NOS 08/07/2018 CHANDNI DO, IOANA Mai Ot 721.0 CERVICAL SPONDYLOSIS 08/07/2018 LEANDROMA, REBEL L LOG GETTER Ot 397.0 TRICUSPID VALVE DISEASE 08/07/2018 BAIMA, REBEL L LOG GETTER Ot 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 NEC 08/07/2018 BAIMA, REBEL L LOG GETTER Ot 424.0 MITRAL VALVE DISORDER 08/07/2018 BAIMA, REBEL L LOG GETTER Ot 272.4 HYPERLIPIDEMIA NEC/NOS 08/07/2018 BAIMA, REBEL L LOG GETTER Ot V58.69 OTH MED,LT,CURRENT USE 08/07/2018 JESUS KATE, ADEN Mohr Ot 786.50 CHEST PAIN NOS 08/07/2018 JESUS KATE, ADEN Mohr Ot V15.88 HISTORY OF FALL 08/07/2018 BIJU REBEL L LOG GETTER Ot 272.4 HYPERLIPIDEMIA NEC/NOS 08/07/2018 JESUS KATE, ADEN Mohr Ot 250.00 DIAB BHAVIK WO COMPL, TYPE II OR UNSPEC TY 08/07/2018 JESUS KATE, ADEN Mohr Ot 401.9 HYPERTENSION NOS 08/07/2018 JESUS KATE, ADEN Mohr Ot V76.12 OTH SCREEN MAMMO-MALIGN NEOPLASM OF VAN 08/07/2018 BAIMA REBEL L LOG GETTER Ot 250.00 DIAB BHAVIK WO COMPL, TYPE II OR UNSPEC TY 08/07/2018 BAIMA REBEL L LOG GETTER Ot 272.4 HYPERLIPIDEMIA NEC/NOS 08/07/2018 REBEL IVY LOG GETTER Ot 401.9 HYPERTENSION NOS 08/07/2018 Ot 250.00 TIFFANI B BHAVIK WO COMPL, TYPE II OR UNSPEC TY 08/07/2018 BIJU REBEL L LOG GETTER Ot 272.4 HYPERLIPIDEMIA NEC/NOS 08/07/2018 GELLENDER DO, ADEN Fani Ot 250.00 DIAB BHAVIK WO COMPL, TYPE II OR UNSPEC TY 08/07/2018 GELLENDER DO, ADEN Mohr Ot 401.9 HYPERTENSION NOS 08/07/2018 GELLENDER DO, ADEN Mohr Ot 782.3 EDEMA 08/07/2018 GELLENDER DO, ADEN Mohr Ot Z12.31 ENCNTR SCREEN MAMMOGRAM FOR MALIGNANT NE 08/07/2018 CHANDNI DO, IOANA Sergei Ot M16.12 UNILATERAL PRIMARY OSTEOARTHRITIS, LEFT 08/07/2018 CHANDNI DO, IOANA Sergei Ot M47.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, LUMBAR REGION 08/07/2018 GELLENDER DO, ADEN Mohr Ot E11.9 TYPE 2 DIABETES MELLITUS WITHOUT COMPLIC 08/07/2018 GELLENDER DO, ADEN Mohr Ot I10 ESSENTIAL (PRIMARY) HYPERTENSION 08/07/2018 Ot E11.9 TYPE 2 DIABETES MELLITUS WITHOUT COMPLIC 08/07/2018 Ot E78.5 HYPE RLIPIDEMIA, UNSPECIFIED 08/07/2018 GELLENDER DO, ADEN Mohr Ot E11.9 TYPE 2 DIABETES MELLITUS WITHOUT COMPLIC 08/07/2018 GELLENDER DO, ADEN Mohr Ot E78.5 HYPERLIPIDEMIA, UNSPECIFIED 08/07/2018 GELLENDER DO, ADEN Mohr Ot D69.6 THROMBOCYTOPENIA, UNSPECIFIED 08/07/2018 GELLENDER DO, ADEN Mohr Ot D72.819 DECREASED WHITE BLOOD CELL COUNT, UNSPEC 08/07/2018 GELLENDER DO, ADEN Mohr Ot Z12.31 ENCNTR SCREEN MAMMOGRAM FOR MALIGNANT NE 08/07/2018 GELLENDER DO, ADEN Mohr Ot E11.9 TYPE 2 DIABETES MELLITUS WITHOUT COMPLIC 08/07/2018 GELLENDER DO, ADEN Mohr Ot E78.5 HYPERLIPIDEMIA, UNSPECIFIED 08/07/2018 GELLENDER DO, ADEN Mohr Ot I10 ESSENTIAL (PRIMARY) HYPERTENSION 08/07/2018 GELLENDER DO, ADEN Mohr Ot E05.90 THYROTOXICOSIS, UNSP WITHOUT THYROTOXIC 08/07/2018 GELLENDER DO, ADEN Mohr Ot E11.9 TYPE 2 DIABETES MELLITUS WITHOUT COMPLIC 08/07/2018 ANNADER DO, ADEN Fani Ot I10 ESSENTIAL (PRIMARY) HYPERTENSION 08/07/2018 JESUS KATE, ADEN Fani Ot D69.6 THROMBOCYTOPENIA, UNSPECIFIED 08/07/2018 [facility], ADEN Fani Ot E11.9 TYPE 2 DIABETES MELLITUS WITHOUT COMPLIC 08/07/2018 [facility] DO, ADEN Fani Ot E78.5 HYPERLIPIDEMIA, UNSPECIFIED 08/07/2018 KARAN IRWIN MD, Ot D61.818 OTHER PANCYTOPENIA 08/07/2018 KARAN IRWIN MD, Ot E11. 9 TYPE 2 DIABETES MELLITUS WITHOUT COMPLIC 08/07/2018 KARAN IRWIN MD, Ot E78. 5 HYPERLIPIDEMIA, UNSPECIFIED 08/07/2018 KARAN IRWIN MD, Ot I10 ESSENTIAL (PRIMARY) HYPERTENSION 08/07/2018 KARAN IRWIN MD, Ot I25. 10 ATHSCL HEART DISEASE OF [place] CORONARY 08/07/2018 KARAN IRWIN MD, Ot K21. 9 GASTRO-ESOPHAGEAL REFLUX DISEASE WITHOUT 08/07/2018 KARAN IRWIN MD, Ot Z79. 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 84 [facility] (CURRENT) USE OF ORAL HYPOGLYC 08/07/2018 KARAN IRWIN MD, Ot Z95. 0 PRESENCE OF CARDIAC PACEMAKER 08/07/2018 [facility] , ADEN Fani Ot M79.601 PAIN IN RIGHT ARM 08/07/2018 [facility] Fani Ot M79.89 OTHER SPECIFIED SOFT TISSUE DISORDERS 08/07/2018 LATASHA CANSECO MD, Ot E11 .9 TYPE 2 DIABETES MELLITUS WITHOUT COMPLIC 08/07/2018 LATASHA CANSECO MD, Ot E78.00 PURE HYPERCHOLESTEROLEMIA, UNSPECIFIED 08/07/2018 LATASHA CANSECO MD Ot F03.90 UNSPECIFIED DEMENTIA WITHOUT BEHAVIORAL 08/07/2018 LATASHA CANSEOC MD, Ot I10 ESSENTIAL (PRIMARY) HYPERTENSION 08/07/2018 LATASHA CANSECO MD, Ot I48.91 UNSPECIFIED ATRIAL FIBRILLATION 08/07/2018 LATASHA CANSECO MD, Ot K21 .9 GASTRO-ESOPHAGEAL REFLUX DISEASE WITHOUT 08/07/2018 LATASHA CANSECO MD, Ot N39 .0 URINARY TRACT INFECTION, SITE NOT SPECIF 08/07/2018 LATASHA CANSECO MD, Ot R41.82 ALTERED MENTAL STATUS, UNSPECIFIED 08/07/2018 LATASHA CANSECO MD Ot Z79.01 [facility] (CURRENT) USE OF ANTICOAGULANT 08/07/2018 LATASHA CANSECO MD Ot Z79.84 [facility] (CURRENT) USE OF ORAL HYPOGLYC 08/07/2018 LATASHA CANSECO MD Ot Z86.711 PERSONAL HISTORY OF PULMONARY EMBOLISM 08/07/2018 LATASHA CANSECO MD, Ot Z86.718 PERSONAL HISTORY OF OTHER VENOUS THROMBO 08/07/2018 LATASHA CANSECO MD, Ot Z86.73 PRSNL HX OF TIA (TIA), AND CEREB INFRC W 08/07/2018 LATASHA CANSECO MD Ot Z87.448 PERSONAL HISTORY OF OTHER DISEASES OF UR 08/07/2018 LATASHA CANSECO MD Ot Z88 .0 ALLERGY STATUS TO PENICILLIN 08/07/2018 LATASHA CANSECO MD Ot Z88 .5 ALLERGY STATUS TO NARCOTIC AGENT STATUS 08/07/2018 LATASHA CANSECO MD, Ot Z88 .6 ALLERGY STATUS TO ANALGESIC AGENT STATUS 08/07/2018 LATASHA CANSECO MD Ot Z95 .0 PRESENCE OF CARDIAC PACEMAKER 08/17/2018 ADEN LEE DO Ot 786.50 CHEST PAIN NOS 08/17/2018 ADEN LEE DO Ot V76.12 OTH SCREEN MAMMO-MALIGN NEOPLASM OF VAN 08/17/2018 ADEN LEE DO Ot 250.00 DIAB BHAVIK WO COMPL, TYPE II OR UNSPEC TY 08/17/2018 ADEN LEE DO Ot 272.4 HYPERLIPIDEMIA NEC/NOS 08/17/2018 IOANA TARIQ DO Ot 721.0 CERVICAL SPONDYLOSIS 08/17/2018 REBEL IVY LOG GETTER Ot 397.0 TRICUSPID VALVE DISEASE 08/17/2018 REBEL IVY L LOG GETTER Ot 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 NEC 08/17/2018 BIJU REBEL L LOG GETTER Ot 424.0 MITRAL VALVE DISORDER 08/17/2018 BAIKATHLEEN JCHER L LOG GETTER Ot 272.4 HYPERLIPIDEMIA NEC/NOS 08/17/2018 REBEL IVY L LOG GETTER Ot V58.69 OTH MED,LT,CURRENT USE 08/17/2018 NINIADEN COATS DO Ot 786.50 CHEST PAIN NOS 08/17/2018 GELLENDER DO, ADEN Mohr Ot V15.88 HISTORY OF FALL 08/17/2018 BAIHOSEA, REBEL L LOG GETTER Ot 272.4 HYPERLIPIDEMIA NEC/NOS 08/17/2018 GELLENDER DO, ADEN Mohr Ot 250.00 DIAB BHAVIK WO COMPL, TYPE II OR UNSPEC TY 08/17/2018 GELLENDER DO, ADEN Mohr Ot 401.9 HYPERTENSION NOS 08/17/2018 GELLENDER DO, ADEN Mohr Ot V76.12 OTH SCREEN MAMMO-MALIGN NEOPLASM OF VAN 08/17/2018 BAIMA, REBEL L LOG GETTER Ot 250.00 DIAB BHAVIK WO COMPL, TYPE II OR UNSPEC TY 08/17/2018 BAIMA, REBEL L LOG GETTER Ot 272.4 HYPERLIPIDEMIA NEC/NOS 08/17/2018 BAIMA, REBEL L LOG GETTER Ot 401.9 HYPERTENSION NOS 08/17/2018 Ot 250.00 TIFFANI B BHAVIK WO COMPL, TYPE II OR UNSPEC TY 08/17/2018 BAIHOSEA, REBEL L LOG GETTER Ot 272.4 HYPERLIPIDEMIA NEC/NOS 08/17/2018 GELLENDER DO, ADEN Mohr Ot 250.00 DIAB BHAVIK WO COMPL, TYPE II OR UNSPEC TY 08/17/2018 GELLENDER DO, ADEN Mohr Ot 401.9 HYPERTENSION NOS 08/17/2018 GELLENDER DO, ADEN Mohr Ot 782.3 EDEMA 08/17/2018 GELLENDER DO, ADEN Mohr Ot Z12.31 ENCNTR SCREEN MAMMOGRAM FOR MALIGNANT NE 08/17/2018 CHANDNI DO, IOANA Mai Ot M16.12 UNILATERAL PRIMARY OSTEOARTHRITIS, LEFT 08/17/2018 CHANDNI DO, IOANA F Ot M47.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, LUMBAR REGION 08/17/2018 GELLENDER DO, ADEN Mohr Ot E11.9 TYPE 2 DIABETES MELLITUS WITHOUT COMPLIC 08/17/2018 GELLENDER DO, ADEN Mohr Ot I10 ESSENTIAL (PRIMARY) HYPERTENSION 08/17/2018 Ot E11.9 TYPE 2 DIABETES MELLITUS WITHOUT COMPLIC 08/17/2018 Ot E78.5 HYPE RLIPIDEMIA, UNSPECIFIED 08/17/2018 GELLENDER DO, ADEN Mohr Ot E11.9 TYPE 2 DIABETES MELLITUS WITHOUT COMPLIC 08/17/2018 GELLENDER DO, ADEN Mhor Ot E78.5 HYPERLIPIDEMIA, UNSPECIFIED 08/17/2018 GELLENDER DO, ADEN Mohr Ot D69.6 THROMBOCYTOPENIA, UNSPECIFIED 08/17/2018 GELLENDER DO, ADEN Mohr Ot D72.819 DECREASED WHITE BLOOD CELL COUNT, UNSPEC 08/17/2018 GELLENDER DO, ADEN Mohr Ot Z12.31 ENCNTR SCREEN MAMMOGRAM FOR MALIGNANT NE 08/17/2018 GELLENDER DO, ADEN Mohr Ot E11.9 TYPE 2 DIABETES MELLITUS WITHOUT COMPLIC 08/17/2018 GELLENDER DO, ADEN Mohr Ot E78.5 HYPERLIPIDEMIA, UNSPECIFIED 08/17/2018 GELLENDER DO, ADEN Fani Ot I10 ESSENTIAL (PRIMARY) HYPERTENSION 08/17/2018 GELLENDER DO, ADEN Mohr Ot E05.90 THYROTOXICOSIS, UNSP WITHOUT THYROTOXIC 08/17/2018 GELLENDER DO, ADEN Mohr Ot E11.9 TYPE 2 DIABETES MELLITUS WITHOUT COMPLIC 08/17/2018 GELLENDER DO, ADEN Fani Ot I10 ESSENTIAL (PRIMARY) HYPERTENSION 08/17/2018 GELLENDER DO, ADEN Fani Ot D69.6 THROMBOCYTOPENIA, UNSPECIFIED 08/17/2018 GELLENDER DO, ADEN Fani Ot E11.9 TYPE 2 DIABETES MELLITUS WITHOUT COMPLIC 08/17/2018 GELLENDER DO, ADEN Fani Ot E78.5 HYPERLIPIDEMIA, UNSPECIFIED 08/17/2018 KARAN IRWIN MD Ot D61.818 OTHER PANCYTOPENIA 08/17/2018 KARAN IRWIN MD Ot E11. 9 TYPE 2 DIABETES MELLITUS WITHOUT COMPLIC 08/17/2018 KARAN IRWIN MD, Ot E78. 5 HYPERLIPIDEMIA, UNSPECIFIED 08/17/2018 KARAN IRWIN MD Ot I10 ESSENTIAL (PRIMARY) HYPERTENSION 08/17/2018 KARAN IRWIN MD Ot I25. 10 ATHSCL HEART DISEASE OF [place] CORONARY 08/17/2018 KARAN IRWIN MD Ot K21. 9 GASTRO-ESOPHAGEAL REFLUX DISEASE WITHOUT 08/17/2018 KARAN IRWIN MD Ot Z79. 01 CLIENT SERVICES DIRECTOR (CURRENT) USE OF ANTICOAGULANT 08/17/2018 KARAN IRWIN MD Ot Z79. 84 CLIENT SERVICES DIRECTOR (CURRENT) USE OF ORAL HYPOGLYC 08/17/2018 KARAN IRWIN MD Ot Z95. 0 PRESENCE OF CARDIAC PACEMAKER 08/17/2018 GELLENDER DO, ADEN Mohr Ot M79.601 PAIN IN RIGHT ARM 08/17/2018 GELLENDER DO, ADEN Mohr Ot M79.89 OTHER SPECIFIED SOFT TISSUE DISORDERS 11/25/2018 AMADOR CHENG MD, Ot E11.9 TYPE 2 DIABETES MELLITUS WITHOUT COMPLIC 11/25/2018 AMADOR CHENG MD, Ot E78.00 PURE HYPERCHOLESTEROLEMIA, UNSPECIFIED 11/25/2018 AMADOR CHENG MD Ot E83.42 HYPOMAGNESEMIA 11/25/2018 AMADOR CHENG MD Ot F03.90 UNSPECIFIED DEMENTIA WITHOUT BEHAVIORAL 11/25/2018 AMADOR CHENG MD Ot G89.29 OTHER CHRONIC PAIN 11/25/2018 AMADOR CHENG MD, Ot I10 ESSENTIAL (PRIMARY) HYPERTENSION 11/25/2018 AMADOR CHENG MD Ot I48.91 UNSPECIFIED ATRIAL FIBRILLATION 11/25/2018 AMADOR CHENG MD, Ot K21.9 GASTRO-ESOPHAGEAL REFLUX DISEASE WITHOUT 11/25/2018 AMADOR CHENG MD Ot M54.9 DORSALGIA, UNSPECIFIED 11/25/2018 AMADOR CHENG MD Ot M79.672 PAIN IN LEFT FOOT 11/25/2018 AMADOR CHENG MD Ot R53.1 WEAKNESS 11/25/2018 AMADOR CHENG MD Ot Z79.84 CLIENT SERVICES DIRECTOR (CURRENT) USE OF ORAL HYPOGLYC 11/25/2018 AMADOR CHENG MD, Ot Z86.711 PERSONAL HISTORY OF PULMONARY EMBOLISM 11/25/2018 AMADOR CHENG MD, Ot Z86.718 PERSONAL HISTORY OF OTHER VENOUS THROMBO 11/25/2018 AMADOR CHENG MD Ot Z88.0 ALLERGY STATUS TO PENICILLIN 11/25/2018 AMADOR CHENG MD Ot Z88.5 ALLERGY STATUS TO NARCOTIC AGENT STATUS 11/25/2018 AMADOR CHENG MD Ot Z88.6 ALLERGY STATUS TO ANALGESIC AGENT STATUS 11/25/2018 AMADOR CHENG MD Ot Z95.0 PRESENCE OF CARDIAC PACEMAKER 11/27/2018 AMADOR CHENG MD, Ot E11.9 TYPE 2 DIABETES MELLITUS WITHOUT COMPLIC 11/27/2018 AMADOR CHENG MD, Ot E78.00 PURE HYPERCHOLESTEROLEMIA, UNSPECIFIED 11/27/2018 AMADOR CHENG MD, Ot E83.42 HYPOMAGNESEMIA 11/27/2018 AMADOR CHENG MD, Ot F03.90 UNSPECIFIED DEMENTIA WITHOUT BEHAVIORAL 11/27/2018 AMADOR CHENG MD Ot G89.29 OTHER CHRONIC PAIN 11/27/2018 AMADOR CHENG MD, Ot I10 ESSENTIAL (PRIMARY) HYPERTENSION 11/27/2018 AMADOR CHENG MD, Ot I48.91 UNSPECIFIED ATRIAL FIBRILLATION 11/27/2018 AMADOR CHENG MD, Ot K21.9 GASTRO-ESOPHAGEAL REFLUX DISEASE WITHOUT 11/27/2018 AMADOR CHENG MD, Ot M54.9 DORSALGIA, UNSPECIFIED 11/27/2018 AMADOR CHENG MD, Ot M79.672 PAIN IN LEFT FOOT 11/27/2018 AMADOR CHENG MD Ot R53.1 WEAKNESS 11/27/2018 AMADOR CHENG MD, Ot Z79.84 [facility] (CURRENT) USE OF ORAL HYPOGLYC 11/27/2018 AMADOR CHENG MD, Ot Z86.711 PERSONAL HISTORY OF PULMONARY EMBOLISM 11/27/2018 AMADOR CHENG MD, Ot Z86.718 PERSONAL HISTORY OF OTHER VENOUS THROMBO 11/27/2018 AMADOR CHENG MD Ot Z88.0 ALLERGY STATUS TO PENICILLIN 11/27/2018 AMADOR CHENG MD Ot Z88.5 ALLERGY STATUS TO NARCOTIC AGENT STATUS 11/27/2018 AMADOR CHENG MD Ot Z88.6 ALLERGY STATUS TO ANALGESIC AGENT STATUS 11/27/2018 AMADOR CHENG MD Ot Z95.0 PRESENCE OF CARDIAC PACEMAKER 12/30/2018 IOANA TARIQ DO Ot 721.0 CERVICAL SPONDYLOSIS 12/30/2018 REBEL IVY LOG GETTER Ot 397.0 TRICUSPID VALVE DISEASE 12/30/2018 REBEL IVY LOG GETTER Ot 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 NEC 12/30/2018 REBEL IVY LOG GETTER Ot 424.0 MITRAL VALVE DISORDER 12/30/2018 REBEL IVY LOG GETTER Ot 272.4 HYPERLIPIDEMIA NEC/NOS 12/30/2018 BIJU, REBELHER Rafael TREADWELLP Ot V58.69 OTH MED,LT,CURRENT USE 12/30/2018 GELLENDER DO, ADEN Mohr Ot 786.50 CHEST PAIN NOS 12/30/2018 GELLENDER DO, ADEN Mohr Ot V15.88 HISTORY OF FALL 12/30/2018 REBEL IVY LOG GETTER Ot 272.4 HYPERLIPIDEMIA NEC/NOS 12/30/2018 GELLENDER DO, ADEN Mohr Ot 250.00 DIAB BHAVIK WO COMPL, TYPE II OR UNSPEC TY 12/30/2018 GELLENDER DO, ADEN Mohr Ot 401.9 HYPERTENSION NOS 12/30/2018 GELLENDER DO, ADEN Mohr Ot V76.12 OTH SCREEN MAMMO-MALIGN NEOPLASM OF VAN 12/30/2018 REBEL IVY LOG GETTER Ot 250.00 DIAB BHAVIK WO COMPL, TYPE II OR UNSPEC TY 12/30/2018 BAIMAREBEL LOG GETTER Ot 272.4 HYPERLIPIDEMIA NEC/NOS 12/30/2018 REBEL IVY LOG GETTER Ot 401.9 HYPERTENSION NOS 12/30/2018 Ot 250.00 TIFFANI B BHAVIK WO COMPL, TYPE II OR UNSPEC TY 12/30/2018 BAIREBEL JC LOG GETTER Ot 272.4 HYPERLIPIDEMIA NEC/NOS 12/30/2018 GELLENDER DO, ADEN Mohr Ot 250.00 DIAB BHAVIK WO COMPL, TYPE II OR UNSPEC TY 12/30/2018 GELLENDER DO, ADEN Mohr Ot 401.9 HYPERTENSION NOS 12/30/2018 GELLENDER DO, ADEN Mohr Ot 782.3 EDEMA 12/30/2018 GELLENDER DO, ADEN Mohr Ot Z12.31 ENCNTR SCREEN MAMMOGRAM FOR MALIGNANT NE 12/30/2018 IOANA TARIQ DO Ot M16.12 UNILATERAL PRIMARY OSTEOARTHRITIS, LEFT 12/30/2018 IOANA TARIQ DO Ot M47.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, LUMBAR REGION 12/30/2018 ANNADER ADEN KATE Ot E11.9 TYPE 2 DIABETES MELLITUS WITHOUT COMPLIC 12/30/2018 GELLENDER DOADEN Ot I10 ESSENTIAL (PRIMARY) HYPERTENSION 12/30/2018 Ot E11.9 TYPE 2 DIABETES MELLITUS WITHOUT COMPLIC 12/30/2018 Ot E78.5 HYPE RLIPIDEMIA, UNSPECIFIED 12/30/2018 GELLENDER DOADEN Ot E11.9 TYPE 2 DIABETES MELLITUS WITHOUT COMPLIC 12/30/2018 GELLENDER DO, ADEN Mohr Ot E78.5 HYPERLIPIDEMIA, UNSPECIFIED 12/30/2018 GELLENDER DO, ADEN Mohr Ot D69.6 THROMBOCYTOPENIA, UNSPECIFIED 12/30/2018 GELLENDER DO, ADEN Mohr Ot D72.819 DECREASED WHITE BLOOD CELL COUNT, UNSPEC 12/30/2018 GELLENDER DO, ADEN Mohr Ot Z12.31 ENCNTR SCREEN MAMMOGRAM FOR MALIGNANT NE 12/30/2018 GELLENDER DO, ADEN Mohr Ot E11.9 TYPE 2 DIABETES MELLITUS WITHOUT COMPLIC 12/30/2018 GELLENDER DO, ADEN Mohr Ot E78.5 HYPERLIPIDEMIA, UNSPECIFIED 12/30/2018 GELLENDER DO, ADEN Fani Ot I10 ESSENTIAL (PRIMARY) HYPERTENSION 12/30/2018 GELLENDER DO, ADEN Mohr Ot E05.90 THYROTOXICOSIS, UNSP WITHOUT THYROTOXIC 12/30/2018 GELLENDER DO, ADEN Mohr Ot E11.9 TYPE 2 DIABETES MELLITUS WITHOUT COMPLIC 12/30/2018 GELLENDER DO, ADEN Fani Ot I10 ESSENTIAL (PRIMARY) HYPERTENSION 12/30/2018 GELLENDER DO, ADEN Mohr Ot D69.6 THROMBOCYTOPENIA, UNSPECIFIED 12/30/2018 GELLENDER DO, ADEN Mohr Ot E11.9 TYPE 2 DIABETES MELLITUS WITHOUT COMPLIC 12/30/2018 GELLENDER DO, ADEN Fani Ot E78.5 HYPERLIPIDEMIA, UNSPECIFIED 12/30/2018 KARAN IRWIN MD Ot D61.818 OTHER PANCYTOPENIA 12/30/2018 KARAN IRWIN MD Ot E11. 9 TYPE 2 DIABETES MELLITUS WITHOUT COMPLIC 12/30/2018 KARAN IRWIN MD Ot E78. 5 HYPERLIPIDEMIA, UNSPECIFIED 12/30/2018 KARAN IRWIN MD Ot I10 ESSENTIAL (PRIMARY) HYPERTENSION 12/30/2018 KARAN IRWIN MD Ot I25. 10 ATHSCL HEART DISEASE OF [place] CORONARY 12/30/2018 KARAN IRWIN MD Ot K21. 9 GASTRO-ESOPHAGEAL REFLUX DISEASE WITHOUT 12/30/2018 KARAN IRWIN MD, Ot Z79. 01 [facility] (CURRENT) USE OF ANTICOAGULANT 12/30/2018 KARAN IRWIN MD Ot Z79. 84 CLIENT SERVICES DIRECTOR (CURRENT) USE OF ORAL HYPOGLYC 12/30/2018 KARAN IRWIN MD Ot Z95. 0 PRESENCE OF CARDIAC PACEMAKER 12/30/2018 GELLENDER DO, ADEN A Ot M79.601 PAIN IN RIGHT ARM 12/30/2018 JESUS DO ADEN Mohr Ot M79.89 OTHER SPECIFIED SOFT TISSUE DISORDERS 12/30/2018 MAX JACQUES MD Ot E11. 9 TYPE 2 DIABETES MELLITUS WITHOUT COMPLIC 12/30/2018 MAX JACQUES MD Ot E78. 00 PURE HYPERCHOLESTEROLEMIA, UNSPECIFIED 12/30/2018 MAX JACQUES MD Ot F03. 90 UNSPECIFIED DEMENTIA WITHOUT BEHAVIORAL 12/30/2018 MAX JACQUES MD Ot F17.200 NICOTINE DEPENDENCE, UNSPECIFIED, UNCOMP 12/30/2018 MAX JACQUES MD Ot I10 ESSENTIAL (PRIMARY) HYPERTENSION 12/30/2018 MAX JACQUES MD Ot I48. 91 UNSPECIFIED ATRIAL FIBRILLATION 12/30/2018 MAX JACQUES MD Ot K21. 9 GASTRO-ESOPHAGEAL REFLUX DISEASE WITHOUT 12/30/2018 MAX JACQUES MD Ot M25.561 PAIN IN RIGHT KNEE 12/30/2018 MAX JACQUES MD Ot R40.2142 COMA SCALE, EYES OPEN, SPONTANEOUS, EMR 12/30/2018 MAX JACQUES MD Ot R40.2252 COMA SCALE, BEST VERBAL RESPONSE, ORIENT 12/30/2018 MAX JACQUES MD Ot R40.2362 COMA SCALE, BEST MOTOR RESPONSE, OBEYS C 12/30/2018 MAX JACQUES MD Ot S93.401A SPRAIN OF UNSPECIFIED LIGAMENT OF RIGHT 12/30/2018 MAX JACQUES MD Ot X50.1XXA OVEREXERTION FROM PROLONGED STATIC OR AW 12/30/2018 MAX JACQUES MD Ot Z79. 01 [facility] (CURRENT) USE OF ANTICOAGULANT 12/30/2018 MAX JACQUES MD Ot Z79. 84 [facility] (CURRENT) USE OF ORAL HYPOGLYC 12/30/2018 MAX JACQUES MD Ot Z86.711 PERSONAL HISTORY OF PULMONARY EMBOLISM 12/30/2018 MAX JACQUES MD, Ot Z86.718 PERSONAL HISTORY OF OTHER VENOUS THROMBO 12/30/2018 MAX JACQUES MD Ot Z86. 73 PRSNL HX OF TIA (TIA), AND CEREB INFRC W 12/30/2018 MAX JACQUES MD Ot Z87.448 PERSONAL HISTORY OF OTHER DISEASES OF UR 12/30/2018 MAX JACQUES MD Ot Z88. 0 ALLERGY STATUS TO PENICILLIN 12/30/2018 MAX JACQUES MD Ot Z88. 5 ALLERGY STATUS TO NARCOTIC AGENT STATUS 12/30/2018 MAX JACQUES MD Ot Z88. 6 ALLERGY STATUS TO ANALGESIC AGENT STATUS 12/30/2018 MAX JACQUES MD Ot Z95. 0 PRESENCE OF CARDIAC PACEMAKER 12/30/2018 MAX JACQUES MD Ot Z96.653 PRESENCE OF ARTIFICIAL KNEE JOINT, BILAT 01/03/2019 MAX JACQUES MD Ot E11. 9 TYPE 2 DIABETES MELLITUS WITHOUT COMPLIC 01/03/2019 MAX JACQUES MD Ot E78. 00 PURE HYPERCHOLESTEROLEMIA, UNSPECIFIED 01/03/2019 MAX JACQUES MD Ot F03. 90 UNSPECIFIED DEMENTIA WITHOUT BEHAVIORAL 01/03/2019 MAX JACQUES MD Ot F17.200 NICOTINE DEPENDENCE, UNSPECIFIED, UNCOMP 01/03/2019 MAX JACQUES MD Ot I10 ESSENTIAL (PRIMARY) HYPERTENSION 01/03/2019 MAX JACQUES MD Ot I48. 91 UNSPECIFIED ATRIAL FIBRILLATION 01/03/2019 MAX JACQUES MD Ot K21. 9 GASTRO-ESOPHAGEAL REFLUX DISEASE WITHOUT 01/03/2019 MAX JACQUES MD Ot M25.561 PAIN IN RIGHT KNEE 01/03/2019 MAX JACQUES MD Ot R40.2142 COMA SCALE, EYES OPEN, SPONTANEOUS, EMR 01/03/2019 MAX JACQUES MD Ot R40.2252 COMA SCALE, BEST VERBAL RESPONSE, ORIENT 01/03/2019 MAX JACQUES MD Ot R40.2362 COMA SCALE, BEST MOTOR RESPONSE, OBEYS C 01/03/2019 MAX JACQUES MD Ot S93.401A SPRAIN OF UNSPECIFIED LIGAMENT OF RIGHT 01/03/2019 MAX JACQUES MD Ot X50.1XXA OVEREXERTION FROM PROLONGED STATIC OR AW 01/03/2019 MAX JACQUES MD Ot Z79. 01 CLIENT SERVICES DIRECTOR (CURRENT) USE OF ANTICOAGULANT 01/03/2019 MAX JACQUES MD Ot Z79. 84 CLIENT SERVICES DIRECTOR (CURRENT) USE OF ORAL HYPOGLYC 01/03/2019 MAX JACQUES MD Ot Z86.711 PERSONAL HISTORY OF PULMONARY EMBOLISM 01/03/2019 MAX JACQUES MD Ot Z86.718 PERSONAL HISTORY OF OTHER VENOUS THROMBO 01/03/2019 MAX JACQUES MD Ot Z86. 73 PRSNL HX OF TIA (TIA), AND CEREB INFRC W 01/03/2019 MAX JACQUES MD Ot Z87.448 PERSONAL HISTORY OF OTHER DISEASES OF UR 01/03/2019 MAX JACQUES MD Ot Z88. 0 ALLERGY STATUS TO PENICILLIN 01/03/2019 MAX JACQUES MD Ot Z88. 5 ALLERGY STATUS TO NARCOTIC AGENT STATUS 01/03/2019 MAX JACQUES MD Ot Z88. 6 ALLERGY STATUS TO ANALGESIC AGENT STATUS 01/03/2019 MAX JACQUES MD Ot Z95. 0 PRESENCE OF CARDIAC PACEMAKER 01/03/2019 MAX JACQUES MD Ot Z96.653 PRESENCE OF ARTIFICIAL KNEE JOINT, BILAT 01/05/2019 MAX JACQUES MD Ot E11. 9 TYPE 2 DIABETES MELLITUS WITHOUT COMPLIC 01/05/2019 MAX JACQUES MD Ot E78. 00 PURE HYPERCHOLESTEROLEMIA, UNSPECIFIED 01/05/2019 MAX JACQUES MD Ot F03. 90 UNSPECIFIED DEMENTIA WITHOUT BEHAVIORAL 01/05/2019 MAX JACQUES MD Ot F17.200 NICOTINE DEPENDENCE, UNSPECIFIED, UNCOMP 01/05/2019 MAX JACQUES MD Ot I10 ESSENTIAL (PRIMARY) HYPERTENSION 01/05/2019 MAX JACQUES MD Ot I48. 91 UNSPECIFIED ATRIAL FIBRILLATION 01/05/2019 MAX JACQUES MD Ot K21. 9 GASTRO-ESOPHAGEAL REFLUX DISEASE WITHOUT 01/05/2019 MAX JACQUES MD Ot M25.561 PAIN IN RIGHT KNEE 01/05/2019 MAX JACQUES MD Ot R40.2142 COMA SCALE, EYES OPEN, SPONTANEOUS, EMR 01/05/2019 MAX JACQUES MD Ot R40.2252 COMA SCALE, BEST VERBAL RESPONSE, ORIENT 01/05/2019 MAX JACQUES MD Ot R40.2362 COMA SCALE, BEST MOTOR RESPONSE, OBEYS C 01/05/2019 MAX JACQUES MD Ot S93.401A SPRAIN OF UNSPECIFIED LIGAMENT OF RIGHT 01/05/2019 MAX JACQUES MD Ot X50.1XXA OVEREXERTION FROM PROLONGED STATIC OR AW 01/05/2019 MAX JACQUES MD Ot Z79. 01 CLIENT SERVICES DIRECTOR (CURRENT) USE OF ANTICOAGULANT 01/05/2019 MAX JACQUES MD Ot Z79. 84 CLIENT SERVICES DIRECTOR (CURRENT) USE OF ORAL HYPOGLYC 01/05/2019 MAX JACQUES MD, Ot Z86.711 PERSONAL HISTORY OF PULMONARY EMBOLISM 01/05/2019 MAX JACQUES MD, Ot Z86.718 PERSONAL HISTORY OF OTHER VENOUS THROMBO 01/05/2019 MAX JACQUES MD, Ot Z86. 73 PRSNL HX OF TIA (TIA), AND CEREB INFRC W 01/05/2019 MAX JACQUES MD, Ot Z87.448 PERSONAL HISTORY OF OTHER DISEASES OF UR 01/05/2019 MAX JACQUES MD, Ot Z88. 0 ALLERGY STATUS TO PENICILLIN 01/05/2019 MAX JACQUES MD Ot Z88. 5 ALLERGY STATUS TO NARCOTIC AGENT STATUS 01/05/2019 MAX JACQUES MD, Ot Z88. 6 ALLERGY STATUS TO ANALGESIC AGENT STATUS 01/05/2019 MAX JACQUES MD Ot Z95. 0 PRESENCE OF CARDIAC PACEMAKER 01/05/2019 MAX JACQUES MD Ot Z96.653 PRESENCE OF ARTIFICIAL KNEE JOINT, BILAT 01/08/2019 ADEN LEE DO Ot S82.301A UNSP FRACTURE OF LOWER END OF RIGHT TIBI 01/08/2019 ADEN LEE DO Ot S82.831A OTH FRACTURE OF UPPER AND LOWER END OF R 01/08/2019 ADEN LEE DO Ot W19.XXXA UNSPECIFIED FALL, INITIAL ENCOUNTER 01/08/2019 IOANA TARIQ DO Ot 721.0 CERVICAL SPONDYLOSIS 01/08/2019 REBEL IVY LOG GETTER Ot 397.0 TRICUSPID VALVE DISEASE 01/08/2019 REBEL IVY LOG GETTER Ot 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 NEC 01/08/2019 REBEL IVY LOG GETTER Ot 424.0 MITRAL VALVE DISORDER 01/08/2019 REBEL IVY LOG GETTER Ot 272.4 HYPERLIPIDEMIA NEC/NOS 01/08/2019 REBEL IVY LOG GETTER Ot V58.69 OTH MED,LT,CURRENT USE 01/08/2019 ADEN LEE DO Ot 786.50 CHEST PAIN NOS 01/08/2019 GELLENDER DO, ADEN Mohr Ot V15.88 HISTORY OF FALL 01/08/2019 BAIHOSEA REBEL Rafael LOG GETTER Ot 272.4 HYPERLIPIDEMIA NEC/NOS 01/08/2019 GELLENDER DO, ADEN Mohr Ot 250.00 DIAB BHAVIK WO COMPL, TYPE II OR UNSPEC TY 01/08/2019 GELLENDER DO, ADEN Mohr Ot 401.9 HYPERTENSION NOS 01/08/2019 GELLENDER DO, ADEN Mohr Ot V76.12 OTH SCREEN MAMMO-MALIGN NEOPLASM OF VAN 01/08/2019 BIJU REBEL L LOG GETTER Ot 250.00 DIAB BHAVIK WO COMPL, TYPE II OR UNSPEC TY 01/08/2019 BAIMAREBEL L LOG GETTER Ot 272.4 HYPERLIPIDEMIA NEC/NOS 01/08/2019 BAIMA REBEL L LOG GETTER Ot 401.9 HYPERTENSION NOS 01/08/2019 Ot 250.00 TIFFANI B BHAVIK WO COMPL, TYPE II OR UNSPEC TY 01/08/2019 REBEL IVY LOG GETTER Ot 272.4 HYPERLIPIDEMIA NEC/NOS 01/08/2019 GELLENDER DO, ADEN Mohr Ot 250.00 DIAB BHAVIK WO COMPL, TYPE II OR UNSPEC TY 01/08/2019 GELLENDER DO, ADEN Mohr Ot 401.9 HYPERTENSION NOS 01/08/2019 GELLENDER DO, ADEN Mohr Ot 782.3 EDEMA 01/08/2019 GELLENDER DO, ADEN Mohr Ot Z12.31 ENCNTR SCREEN MAMMOGRAM FOR MALIGNANT NE 01/08/2019 CHANDNI DO, IOANA Mai Ot M16.12 UNILATERAL PRIMARY OSTEOARTHRITIS, LEFT 01/08/2019 CHANDNI DO, IOANA F Ot M47.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, LUMBAR REGION 01/08/2019 GELLENDER DO, ADEN Mohr Ot E11.9 TYPE 2 DIABETES MELLITUS WITHOUT COMPLIC 01/08/2019 GELLENDER DO, ADEN Mohr Ot I10 ESSENTIAL (PRIMARY) HYPERTENSION 01/08/2019 Ot E11.9 TYPE 2 DIABETES MELLITUS WITHOUT COMPLIC 01/08/2019 Ot E78.5 HYPE RLIPIDEMIA, UNSPECIFIED 01/08/2019 GELLENDER DO, ADEN Mohr Ot E11.9 TYPE 2 DIABETES MELLITUS WITHOUT COMPLIC 01/08/2019 GELLENDER DO, ADEN Mohr Ot E78.5 HYPERLIPIDEMIA, UNSPECIFIED 01/08/2019 GELLENDER DO, ADEN Mohr Ot D69.6 THROMBOCYTOPENIA, UNSPECIFIED 01/08/2019 GELLENDER DO, ADEN Mohr Ot D72.819 DECREASED WHITE BLOOD CELL COUNT, UNSPEC 01/08/2019 GELLENDER DO, ADEN Fani Ot Z12.31 ENCNTR SCREEN MAMMOGRAM FOR MALIGNANT NE 01/08/2019 GELLENDER DO, ADEN Mohr Ot E11.9 TYPE 2 DIABETES MELLITUS WITHOUT COMPLIC 01/08/2019 GELLENDER DO, ADEN Fani Ot E78.5 HYPERLIPIDEMIA, UNSPECIFIED 01/08/2019 GELLENDER DO, ADEN Mohr Ot I10 ESSENTIAL (PRIMARY) HYPERTENSION 01/08/2019 GELLENDER DO, ADEN Fani Ot E05.90 THYROTOXICOSIS, UNSP WITHOUT THYROTOXIC 01/08/2019 GELLENDER DO, ADEN Mohr Ot E11.9 TYPE 2 DIABETES MELLITUS WITHOUT COMPLIC 01/08/2019 GELLENDER DO, ADEN Mohr Ot I10 ESSENTIAL (PRIMARY) HYPERTENSION 01/08/2019 GELLENDER DO, ADEN Mohr Ot D69.6 THROMBOCYTOPENIA, UNSPECIFIED 01/08/2019 GELLENDER DO, ADEN Mohr Ot E11.9 TYPE 2 DIABETES MELLITUS WITHOUT COMPLIC 01/08/2019 GELLENDER DO, ADEN Mohr Ot E78.5 HYPERLIPIDEMIA, UNSPECIFIED 01/08/2019 KARAN IRWIN MD, Ot D61.818 OTHER PANCYTOPENIA 01/08/2019 KARAN IRWIN MD, Ot E11. 9 TYPE 2 DIABETES MELLITUS WITHOUT COMPLIC 01/08/2019 KARAN IRWIN MD, Ot E78. 5 HYPERLIPIDEMIA, UNSPECIFIED 01/08/2019 KARAN IRWIN MD Ot I10 ESSENTIAL (PRIMARY) HYPERTENSION 01/08/2019 KARAN IRWIN MD Ot I25. 10 ATHSCL HEART DISEASE OF [place] CORONARY 01/08/2019 KARAN IRWIN MD Ot K21. 9 GASTRO-ESOPHAGEAL REFLUX DISEASE WITHOUT 01/08/2019 KARAN IRWIN MD, Ot Z79. 01 [facility] (CURRENT) USE OF ANTICOAGULANT 01/08/2019 KARAN IRWIN MD, Ot Z79. 84 [facility] (CURRENT) USE OF ORAL HYPOGLYC 01/08/2019 KARAN IRWIN MD Ot Z95. 0 PRESENCE OF CARDIAC PACEMAKER 01/08/2019 [facility] Ot M79.601 PAIN IN RIGHT ARM 01/08/2019 [facility] Mohr Ot M79.89 OTHER SPECIFIED SOFT TISSUE DISORDERS 01/08/2019 ADEN LEE DO Ot S82.301A UNSP FRACTURE OF LOWER END OF RIGHT TIBI 01/08/2019 ADEN LEE DO Ot S82.831A OTH FRACTURE OF UPPER AND LOWER END OF R 01/08/2019 ADEN LEE DO Ot W19.XXXA UNSPECIFIED FALL, INITIAL ENCOUNTER 01/11/2019 STEPHEN GARZA DO Ot D53.9 NUTRITIONAL ANEMIA, UNSPECIFIED 01/11/2019 PERLA GARZA DOI Ot E11.9 TYPE 2 DIABETES MELLITUS WITHOUT COMPLIC 01/11/2019 GREG KATE STEPHEN Ot E66.9 OBESITY, UNSPECIFIED 01/11/2019 GREG KATE STEPHEN Ot E78.2 MIXED HYPERLIPIDEMIA 01/11/2019 PERLA GARZA DOI Ot E86.0 DEHYDRATION 01/11/2019 GREG KATE STEPHEN Ot E87.2 ACIDOSIS 01/11/2019 GREG KATE STEPHEN Ot F03.91 UNSPECIFIED DEMENTIA WITH BEHAVIORAL DIS 01/11/2019 GREG KATE STEPHEN Ot F05 DELIRIUM DUE TO KNOWN PHYSIOLOGICAL COND 01/11/2019 GREG KATE STEPHEN Ot I10 ESSENTIAL (PRIMARY) HYPERTENSION 01/11/2019 GREG KATE STEPHEN Ot I48.0 PAROXYSMAL ATRIAL FIBRILLATION 01/11/2019 PERLA GARZA DOI Ot 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 01/11/2019 PERLA GARZA DOI Ot 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 01/11/2019 GREG KATE STEPHEN Ot K21.9 GASTRO-ESOPHAGEAL REFLUX DISEASE WITHOUT 01/11/2019 PERLA GARZA DOI Ot M19.91 PRIMARY OSTEOARTHRITIS, UNSPECIFIED SITE 01/11/2019 GREG KATE STEPHEN Ot M54.9 DORSALGIA, UNSPECIFIED 01/11/2019 GREG KATE STEPHEN Ot N30.00 ACUTE CYSTITIS WITHOUT HEMATURIA 01/11/2019 STEPHEN GARZA DO Ot R79.1 ABNORMAL COAGULATION PROFILE 01/11/2019 STEPHEN GARZA DO Ot T45.51 5A ADVERSE EFFECT OF ANTICOAGULANTS, INITIA 01/11/2019 GREG KATE STEPHEN Ot Z66 DO NOT RESUSCITATE 01/11/2019 STEPHEN GARZA DO Ot Z68.42 BODY MASS INDEX (BMI) 45.0-49.9, ADULT 01/11/2019 STEPHEN GARZA DO Ot Z77.22 CNTCT W AND EXPSR TO ENVIRON TOBACCO SMO 01/11/2019 STEPHEN GARZA DO Ot Z79.01 CLIENT SERVICES DIRECTOR (CURRENT) USE OF ANTICOAGULANT 01/11/2019 STEPHEN GARZA DO Ot Z79.4 CLIENT SERVICES DIRECTOR (CURRENT) USE OF INSULIN 01/11/2019 GREG KATE STEPHEN Ot Z86.71 1 PERSONAL HISTORY OF PULMONARY EMBOLISM 01/11/2019 STEPHEN GARZA DO Ot Z86.71 8 PERSONAL HISTORY OF OTHER VENOUS THROMBO 01/11/2019 GREG KATE STEPHEN Ot Z95.0 PRESENCE OF CARDIAC PACEMAKER 01/11/2019 GREG KATE STEPHEN Ot Z95.82 8 PRESENCE OF OTHER VASCULAR IMPLANTS AND 01/11/2019 PERLA GARZA DOI Ot 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, BILAT 01/14/2019 STEPHEN GARZA DO Ot D53.9 NUTRITIONAL ANEMIA, UNSPECIFIED 01/14/2019 STEPHEN GARZA DO Ot D62 ACUTE POSTHEMORRHAGIC ANEMIA 01/14/2019 PERLA GARZA DOI Ot E11.9 TYPE 2 DIABETES MELLITUS WITHOUT COMPLIC 01/14/2019 GREG KATE STEPHEN Ot E66.9 OBESITY, UNSPECIFIED 01/14/2019 GREG KATE STEPHEN Ot E78.2 MIXED HYPERLIPIDEMIA 01/14/2019 GREG KATE STEPHEN Ot E86.0 DEHYDRATION 01/14/2019 GREG KATE STEPHEN Ot E87.2 ACIDOSIS 01/14/2019 GREG KATE STEPHEN Ot F03.91 UNSPECIFIED DEMENTIA WITH BEHAVIORAL DIS 01/14/2019 GREG KATE STEPHEN Ot F05 DELIRIUM DUE TO KNOWN PHYSIOLOGICAL COND 01/14/2019 GREG KATE STEPHEN Ot I10 ESSENTIAL (PRIMARY) HYPERTENSION 01/14/2019 GREG KATE STEPHEN Ot I48.0 PAROXYSMAL ATRIAL FIBRILLATION 01/14/2019 PERLA GARZA DOI Ot 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 01/14/2019 PERLA GARZA DOI Ot 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 01/14/2019 GREG KATE STEPHEN Ot K21.9 GASTRO-ESOPHAGEAL REFLUX DISEASE WITHOUT 01/14/2019 GREG KATE STEPHEN Ot M19.91 PRIMARY OSTEOARTHRITIS, UNSPECIFIED SITE 01/14/2019 GREG KATE STEPHEN Ot M54.9 DORSALGIA, UNSPECIFIED 01/14/2019 GARZASTEPHEN WHITLEY DO Ot N30.00 ACUTE CYSTITIS WITHOUT HEMATURIA 01/14/2019 STEPHEN GARZA DO Ot R19.5 OTHER FECAL ABNORMALITIES 01/14/2019 STEPHEN GARZA DO Ot R79.1 ABNORMAL COAGULATION PROFILE 01/14/2019 GARZASTEPHEN WHITLEY DO Ot T45.51 5A ADVERSE EFFECT OF ANTICOAGULANTS, INITIA 01/14/2019 STEPHEN GARZA DO Ot Z66 DO NOT RESUSCITATE 01/14/2019 STEPHEN GARZA DO Ot Z68.42 BODY MASS INDEX (BMI) 45.0-49.9, ADULT 01/14/2019 STEPHEN GARZA DO Ot Z77.22 CNTCT W AND EXPSR TO ENVIRON TOBACCO SMO 01/14/2019 STEPHEN GARZA DO Ot Z79.01 [facility] (CURRENT) USE OF ANTICOAGULANT 01/14/2019 STEPHEN GARZA DO Ot Z79.4 [facility] (CURRENT) USE OF INSULIN 01/14/2019 STEPHEN GARZA DO Ot Z86.71 1 PERSONAL HISTORY OF PULMONARY EMBOLISM 01/14/2019 STEPHEN GARZA DO Ot Z86.71 8 PERSONAL HISTORY OF OTHER VENOUS THROMBO 01/14/2019 STEPHEN GARZA DO Ot Z88.0 ALLERGY STATUS TO PENICILLIN 01/14/2019 STEPHEN GARZA DO Ot Z88.5 ALLERGY STATUS TO NARCOTIC AGENT STATUS 01/14/2019 STEPHEN GARZA DO Ot Z95.0 PRESENCE OF CARDIAC PACEMAKER 01/14/2019 STEPHEN GARZA DO Ot Z95.82 8 PRESENCE OF OTHER VASCULAR IMPLANTS AND 01/14/2019 STEPHEN GARZA DO Ot 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, BILAT 02/04/2019 JACKI JORDAN DO Ot Z01.818 ENCOUNTER FOR OTHER PREPROCEDURAL EXAMIN 02/05/2019 PROSPER FOWLER, AMADOR Rosario Ot D64.9 ANEMIA, UNSPECIFIED 02/05/2019 PROSPER FOWLER, AMADOR Rosario Ot E11.9 TYPE 2 DIABETES MELLITUS WITHOUT COMPLIC 02/05/2019 PROSPER FOWLER, AMADOR Rosario Ot E78.00 PURE HYPERCHOLESTEROLEMIA, UNSPECIFIED 02/05/2019 PROSPER FOWLER, AMADOR Rosario Ot F03.90 UNSPECIFIED DEMENTIA WITHOUT BEHAVIORAL 02/05/2019 AMADOR CHENG MD, Ot I10 ESSENTIAL (PRIMARY) HYPERTENSION 02/05/2019 AMADOR CHENG MD, Ot I48.91 UNSPECIFIED ATRIAL FIBRILLATION 02/05/2019 AMADOR CHENG MD, Ot K21.9 GASTRO-ESOPHAGEAL REFLUX DISEASE WITHOUT 02/05/2019 AMADOR CHENG MD, Ot R41.0 DISORIENTATION, UNSPECIFIED 02/05/2019 AMADOR CHENG MD, Ot Z79.84 [facility] (CURRENT) USE OF ORAL HYPOGLYC 02/05/2019 AMADOR CHENG MD, Ot Z86.711 PERSONAL HISTORY OF PULMONARY EMBOLISM 02/05/2019 AMADOR CHENG MD, Ot Z86.718 PERSONAL HISTORY OF OTHER VENOUS THROMBO 02/05/2019 AMADOR CHENG MD, Ot Z86.73 PRSNL HX OF TIA (TIA), AND CEREB INFRC W 02/05/2019 AMADOR CHENG MD, Ot Z87.448 PERSONAL HISTORY OF OTHER DISEASES OF UR 02/05/2019 AMADOR CHENG MD, Ot Z88.0 ALLERGY STATUS TO PENICILLIN 02/05/2019 AMADOR CHENG MD, Ot Z88.5 ALLERGY STATUS TO NARCOTIC AGENT STATUS 02/05/2019 AMADOR CHENG MD, Ot Z88.6 ALLERGY STATUS TO ANALGESIC AGENT STATUS 02/05/2019 AMADOR CHENG MD, Ot Z95.0 PRESENCE OF CARDIAC PACEMAKER 02/05/2019 AMADOR CHENG MD, Ot Z98.890 OTHER SPECIFIED POSTPROCEDURAL STATES 02/07/2019 JACKI JORDAN DO Ot D50. 9 IRON DEFICIENCY ANEMIA, UNSPECIFIED 02/07/2019 JACKI JORDAN DO Ot E11. 9 TYPE 2 DIABETES MELLITUS WITHOUT COMPLIC 02/07/2019 JACKI JORDAN DO Ot E66. 9 OBESITY, UNSPECIFIED 02/07/2019 JACKI JORDAN DO Ot E78. 5 HYPERLIPIDEMIA, UNSPECIFIED 02/07/2019 JACKI JORDAN DO Ot I10 ESSENTIAL (PRIMARY) HYPERTENSION 02/07/2019 JACKI JORDAN DO Ot I25. 10 ATHSCL HEART DISEASE OF [place] CORONARY 02/07/2019 JACKI JORDAN DO Ot I48. 0 PAROXYSMAL ATRIAL FIBRILLATION 02/07/2019 JACKI JORDAN DO Ot I77. 9 DISORDER OF ARTERIES AND ARTERIOLES, UNS 02/07/2019 JACKI JORDAN DO Ot I85. 00 ESOPHAGEAL VARICES WITHOUT BLEEDING 02/07/2019 JACKI JORDAN DO Ot K21. 0 GASTRO-ESOPHAGEAL REFLUX DISEASE WITH ES 02/07/2019 JACKI JORDAN DO Ot K44. 9 DIAPHRAGMATIC HERNIA WITHOUT OBSTRUCTION 02/07/2019 JACKI JORDAN DO Ot K57. 30 DVRTCLOS OF LG INT W/O PERFORATION OR AB 02/07/2019 JACKI JORDAN DO Ot K64. 9 UNSPECIFIED HEMORRHOIDS 02/07/2019 JACKI JORDAN DO Ot M48. 02 SPINAL STENOSIS, CERVICAL REGION 02/07/2019 JACKI JORDAN DO Ot Z68. 43 BODY MASS INDEX (BMI) 50-59.9, ADULT 02/07/2019 JACKI JORDAN DO Ot Z79. 01 CLIENT SERVICES DIRECTOR (CURRENT) USE OF ANTICOAGULANT 02/07/2019 JACKI JORDAN DO Ot Z79. 84 [facility] (CURRENT) USE OF ORAL HYPOGLYC 02/07/2019 JACKI JORDAN DO Ot Z79.899 OTHER CLIENT SERVICES DIRECTOR (CURRENT) DRUG THERAPY 02/07/2019 JACKI JORDAN DO Ot Z86.718 PERSONAL HISTORY OF OTHER VENOUS THROMBO 02/07/2019 JACKI JORDAN DO Ot Z86. 73 PRSNL HX OF TIA (TIA), AND CEREB INFRC W 02/07/2019 JACKI JORDAN DO Ot Z88. 0 ALLERGY STATUS TO PENICILLIN 02/07/2019 JACKI JORDAN DO Ot Z95. 0 PRESENCE OF CARDIAC PACEMAKER 02/07/2019 JACKI JORDAN DO Ot Z96.653 PRESENCE OF ARTIFICIAL KNEE JOINT, BILAT 02/09/2019 JACKI JORDAN DO Ot D50. 9 IRON DEFICIENCY ANEMIA, UNSPECIFIED 02/09/2019 JACKI JORDAN DO Ot E11. 9 TYPE 2 DIABETES MELLITUS WITHOUT COMPLIC 02/09/2019 JACKI JORDAN DO Ot E78. 5 HYPERLIPIDEMIA, UNSPECIFIED 02/09/2019 JACKI JORDAN DO Ot I10 ESSENTIAL (PRIMARY) HYPERTENSION 02/09/2019 JACKI JORDAN DO Ot I25. 10 ATHSCL HEART DISEASE OF [place] CORONARY 02/09/2019 JACKI JORDAN DO Ot I48. 0 PAROXYSMAL ATRIAL FIBRILLATION 02/09/2019 JACKI JORDAN DO Ot I77. 9 DISORDER OF ARTERIES AND ARTERIOLES, UNS 02/09/2019 JACKI JORDAN DO Ot I85. 00 ESOPHAGEAL VARICES WITHOUT BLEEDING 02/09/2019 JACKI JORDAN DO Ot K21. 0 GASTRO-ESOPHAGEAL REFLUX DISEASE WITH ES 02/09/2019 JACKI JORDAN DO Ot K44. 9 DIAPHRAGMATIC HERNIA WITHOUT OBSTRUCTION 02/09/2019 JACKI JORDAN DO Ot K57. 30 DVRTCLOS OF LG INT W/O PERFORATION OR AB 02/09/2019 JACKI JORDAN DO Ot K64. 9 UNSPECIFIED HEMORRHOIDS 02/09/2019 JACKI JORDAN DO Ot M48. 02 SPINAL STENOSIS, CERVICAL REGION 02/09/2019 JACKI JORDAN DO Ot Z79. 01 [facility] (CURRENT) USE OF ANTICOAGULANT 02/09/2019 JACKI JORDAN DO Ot Z79. 84 [facility] (CURRENT) USE OF ORAL HYPOGLYC 02/09/2019 JACKI JORDAN DO Ot Z79.899 OTHER [facility] (CURRENT) DRUG THERAPY 02/09/2019 JACKI JORDAN DO Ot Z86.718 PERSONAL HISTORY OF OTHER VENOUS THROMBO 02/09/2019 JACKI JORDAN DO Ot Z86. 73 PRSNL HX OF TIA (TIA), AND CEREB INFRC W 02/09/2019 JACKI JORDAN DO Ot Z88. 0 ALLERGY STATUS TO PENICILLIN 02/09/2019 JACKI JORDAN DO Ot Z95. 0 PRESENCE OF CARDIAC PACEMAKER 02/09/2019 JACKI JORDAN DO Ot Z96.653 PRESENCE OF ARTIFICIAL KNEE JOINT, BILAT 02/09/2019 JACKI JORDAN DO Ot D50. 9 IRON DEFICIENCY ANEMIA, UNSPECIFIED 02/09/2019 JACKI JORDAN DO Ot E11. 9 TYPE 2 DIABETES MELLITUS WITHOUT COMPLIC 02/09/2019 JACKI JORDAN DO Ot E78. 5 HYPERLIPIDEMIA, UNSPECIFIED 02/09/2019 JACKI JORDAN DO Ot I10 ESSENTIAL (PRIMARY) HYPERTENSION 02/09/2019 JACKI JORDAN DO Ot I25. 10 ATHSCL HEART DISEASE OF [place] CORONARY 02/09/2019 JACKI JORDAN DO Ot I48. 0 PAROXYSMAL ATRIAL FIBRILLATION 02/09/2019 JACKI JORDAN DO Ot I77. 9 DISORDER OF ARTERIES AND ARTERIOLES, UNS 02/09/2019 JACKI JORDAN DO Ot I85. 00 ESOPHAGEAL VARICES WITHOUT BLEEDING 02/09/2019 JACKI JORDAN DO Ot K21. 0 GASTRO-ESOPHAGEAL REFLUX DISEASE WITH ES 02/09/2019 JACKI JORDAN DO Ot K44. 9 DIAPHRAGMATIC HERNIA WITHOUT OBSTRUCTION 02/09/2019 JACKI JORDAN DO Ot K57. 30 DVRTCLOS OF LG INT W/O PERFORATION OR AB 02/09/2019 JACKI JORDAN DO Ot K64. 9 UNSPECIFIED HEMORRHOIDS 02/09/2019 JACKI JORDAN DO Ot M48. 02 SPINAL STENOSIS, CERVICAL REGION 02/09/2019 JACKI JORDAN DO Ot Z79. 01 CLIENT SERVICES DIRECTOR (CURRENT) USE OF ANTICOAGULANT 02/09/2019 JACKI JORDAN DO Ot Z79. 84 CLIENT SERVICES DIRECTOR (CURRENT) USE OF ORAL HYPOGLYC 02/09/2019 JACKI JORDAN DO Ot Z79.899 OTHER [facility] (CURRENT) DRUG THERAPY 02/09/2019 JACKI JORDAN DO Ot Z86.718 PERSONAL HISTORY OF OTHER VENOUS THROMBO 02/09/2019 JACKI JORDAN DO Ot Z86. 73 PRSNL HX OF TIA (TIA), AND CEREB INFRC W 02/09/2019 JACKI JORDAN DO Ot Z88. 0 ALLERGY STATUS TO PENICILLIN 02/09/2019 JACKI JORDAN DO Ot Z95. 0 PRESENCE OF CARDIAC PACEMAKER 02/09/2019 JACKI JORDAN DO Ot Z96.653 PRESENCE OF ARTIFICIAL KNEE JOINT, BILAT 02/19/2019 TWYLA VALVERDE APRN Ot E11 .9 TYPE 2 DIABETES MELLITUS WITHOUT COMPLIC 02/19/2019 TWYLA VALVERDE APRN Ot E78.00 PURE HYPERCHOLESTEROLEMIA, UNSPECIFIED 02/19/2019 TWYLA VALVERDE APRN Ot F03.90 UNSPECIFIED DEMENTIA WITHOUT BEHAVIORAL 02/19/2019 TWYLA VALVERDE APRN Ot I10 ESSENTIAL (PRIMARY) HYPERTENSION 02/19/2019 TWYLA VALVERDE APRN Ot I48.91 UNSPECIFIED ATRIAL FIBRILLATION 02/19/2019 TWYLA VALVERDE APRN Ot K21 .9 GASTRO-ESOPHAGEAL REFLUX DISEASE WITHOUT 02/19/2019 TWYLA VALVERDE APRN Ot R41.82 ALTERED MENTAL STATUS, UNSPECIFIED 02/19/2019 TWYLA VALVERDE APRN Ot R53 .1 WEAKNESS 02/19/2019 TWYLA VALVERDE APRN Ot Z79.84 CLIENT SERVICES DIRECTOR (CURRENT) USE OF ORAL HYPOGLYC 02/19/2019 TWYLA VALVERDE APRN Ot Z86.711 PERSONAL HISTORY OF PULMONARY EMBOLISM 02/19/2019 TWYLA VALVERDE APRN Ot Z86.718 PERSONAL HISTORY OF OTHER VENOUS THROMBO 02/19/2019 TWYLA VALVERDE APRN Ot Z86.73 PRSNL HX OF TIA (TIA), AND CEREB INFRC W 02/19/2019 TWYLA VALVERDE APRN Ot Z88 .0 ALLERGY STATUS TO PENICILLIN 02/19/2019 TWYLA VALVERDE APRN Ot Z88 .5 ALLERGY STATUS TO NARCOTIC AGENT STATUS 02/19/2019 TWYLA VALVERDE APRN Ot Z88 .6 ALLERGY STATUS TO ANALGESIC AGENT STATUS 02/19/2019 TWYLA VALVERDE APRN Ot Z95 .0 PRESENCE OF CARDIAC PACEMAKER 02/21/2019 TWYLA VALVERDE APRN Ot E11 .9 TYPE 2 DIABETES MELLITUS WITHOUT COMPLIC 02/21/2019 TWYLA VALVERDE APRN Ot E78.00 PURE HYPERCHOLESTEROLEMIA, UNSPECIFIED 02/21/2019 TWYLA VALVERDE APRN Ot F03.90 UNSPECIFIED DEMENTIA WITHOUT BEHAVIORAL 02/21/2019 TWYLA VALVERDE APRN Ot I10 ESSENTIAL (PRIMARY) HYPERTENSION 02/21/2019 TWYLA VALVERDE APRN Ot I48.91 UNSPECIFIED ATRIAL FIBRILLATION 02/21/2019 TWYLA VALVERDE APRN Ot K21 .9 GASTRO-ESOPHAGEAL REFLUX DISEASE WITHOUT 02/21/2019 TWYLA VALVERDE APRN Ot R41.82 ALTERED MENTAL STATUS, UNSPECIFIED 02/21/2019 TWYLA VALVERDE APRN Ot R53 .1 WEAKNESS 02/21/2019 TWYLA VALVERDE APRN Ot Z79.84 [facility] (CURRENT) USE OF ORAL HYPOGLYC 02/21/2019 TWYLA VALVERDE APRN Ot Z86.711 PERSONAL HISTORY OF PULMONARY EMBOLISM 02/21/2019 TWYLA VALVERDE APRN Ot Z86.718 PERSONAL HISTORY OF OTHER VENOUS THROMBO 02/21/2019 TWYLA VALVERDE APRN Ot Z86.73 PRSNL HX OF TIA (TIA), AND CEREB INFRC W 02/21/2019 TWYLA VALVERDE APRN Ot Z88 .0 ALLERGY STATUS TO PENICILLIN 02/21/2019 TWYLA VALVERDE APRN Ot Z88 .5 ALLERGY STATUS TO NARCOTIC AGENT STATUS 02/21/2019 TWYLA VALVERDE APRN Ot Z88 .6 ALLERGY STATUS TO ANALGESIC AGENT STATUS 02/21/2019 TWYLA VALVERDE APRN Ot Z95 .0 PRESENCE OF CARDIAC PACEMAKER 03/10/2019 JACKI JORDAN DO Ot D50. 9 IRON DEFICIENCY ANEMIA, UNSPECIFIED 03/10/2019 JACKI JORDAN DO Ot E11. 9 TYPE 2 DIABETES MELLITUS WITHOUT COMPLIC 03/10/2019 JACKI JODRAN DO Ot E66. 9 OBESITY, UNSPECIFIED 03/10/2019 JACKI JORDAN DO Ot E78. 5 HYPERLIPIDEMIA, UNSPECIFIED 03/10/2019 JACKI JORDAN DO Ot I10 ESSENTIAL (PRIMARY) HYPERTENSION 03/10/2019 JACKI JORDAN DO Ot I25. 10 ATHSCL HEART DISEASE OF [place] CORONARY 03/10/2019 JACKI JORDAN DO Ot I48. 0 PAROXYSMAL ATRIAL FIBRILLATION 03/10/2019 JCAKI JORDAN DO Ot I77. 9 DISORDER OF ARTERIES AND ARTERIOLES, UNS 03/10/2019 JACKI JORDAN DO Ot I85. 00 ESOPHAGEAL VARICES WITHOUT BLEEDING 03/10/2019 JACKI JORDAN DO Ot K21. 0 GASTRO-ESOPHAGEAL REFLUX DISEASE WITH ES 03/10/2019 JACKI JORDAN DO Ot K44. 9 DIAPHRAGMATIC HERNIA WITHOUT OBSTRUCTION 03/10/2019 JACKI JORDAN DO Ot K57. 30 DVRTCLOS OF LG INT W/O PERFORATION OR AB 03/10/2019 JACKI JORDAN DO Ot K64. 9 UNSPECIFIED HEMORRHOIDS 03/10/2019 JACKI JORDAN DO Ot M48. 02 SPINAL STENOSIS, CERVICAL REGION 03/10/2019 JACKI JORDAN DO Ot Z68. 43 BODY MASS INDEX (BMI) 50-59.9, ADULT 03/10/2019 JACKI JORDAN DO Ot Z79. 01 [facility] (CURRENT) USE OF ANTICOAGULANT 03/10/2019 JACKI JORDAN DO Ot Z79. 84 CLIENT SERVICES DIRECTOR (CURRENT) USE OF ORAL HYPOGLYC 03/10/2019 JACKI JORDAN DO Ot Z79.899 OTHER CLIENT SERVICES DIRECTOR (CURRENT) DRUG THERAPY 03/10/2019 JACKI JORDAN DO Ot Z86.718 PERSONAL HISTORY OF OTHER VENOUS THROMBO 03/10/2019 JACKI JORDAN DO Ot Z86. 73 PRSNL HX OF TIA (TIA), AND CEREB INFRC W 03/10/2019 JACKI JORDAN DO Ot Z88. 0 ALLERGY STATUS TO PENICILLIN 03/10/2019 JACKI JORDAN DO Ot Z95. 0 PRESENCE OF CARDIAC PACEMAKER 03/10/2019 JACKI JORDAN DO Ot Z96.653 PRESENCE OF ARTIFICIAL KNEE JOINT, BILAT 05/05/2019 BRUCE FORTE MD Ot E11.9 TYPE 2 DIABETES MELLITUS WITHOUT COMPLIC 05/05/2019 BRUCE FORTE MD Ot E66.01 MORBID (SEVERE) OBESITY DUE TO EXCESS CA 05/05/2019 BRUCE FORTE MD Ot E78.00 PURE HYPERCHOLESTEROLEMIA, UNSPECIFIED 05/05/2019 BRUCE FORTE MD Ot F03.90 UNSPECIFIED DEMENTIA WITHOUT BEHAVIORAL 05/05/2019 BRUCE FORTE MD Ot I10 ESSENTIAL (PRIMARY) HYPERTENSION 05/05/2019 BRUCE FORTE MD Ot I48.91 UNSPECIFIED ATRIAL FIBRILLATION 05/05/2019 BRUCE FORTE MD, Ot K21.9 GASTRO-ESOPHAGEAL REFLUX DISEASE WITHOUT 05/05/2019 BRUCE FORTE MD Ot M79.672 PAIN IN LEFT FOOT 05/05/2019 BRUCE FORTE MD Ot R10.84 GENERALIZED ABDOMINAL PAIN 05/05/2019 BRUCE FORTE MD, Ot R41.0 DISORIENTATION, UNSPECIFIED 05/05/2019 BRUCE FORTE MD Ot R41.82 ALTERED MENTAL STATUS, UNSPECIFIED 05/05/2019 BRUCE FORTE MD Ot Z68.42 BODY MASS INDEX (BMI) 45.0-49.9, ADULT 05/05/2019 BRUCE FORTE MD Ot Z79.84 CLIENT SERVICES DIRECTOR (CURRENT) USE OF ORAL HYPOGLYC 05/05/2019 BRUCE FORTE MD Ot Z86.711 PERSONAL HISTORY OF PULMONARY EMBOLISM 05/05/2019 BRUCE FORTE MD, Ot Z86.718 PERSONAL HISTORY OF OTHER VENOUS THROMBO 05/05/2019 BRUCE FORTE MD Ot Z86.73 PRSNL HX OF TIA (TIA), AND CEREB INFRC W 05/05/2019 BRUCE FORTE MD Ot Z88.0 ALLERGY STATUS TO PENICILLIN 05/05/2019 BRUCE FORTE MD, Ot Z88.5 ALLERGY STATUS TO NARCOTIC AGENT STATUS 05/05/2019 BRUCE FORTE MD, Ot Z88.6 ALLERGY STATUS TO ANALGESIC AGENT STATUS 05/05/2019 BRUCE FORTE MD Ot Z95.0 PRESENCE OF CARDIAC PACEMAKER 05/09/2019 BRUCE FORTE MD Ot E11.9 TYPE 2 DIABETES MELLITUS WITHOUT COMPLIC 05/09/2019 BRUCE FORTE MD Ot E66.01 MORBID (SEVERE) OBESITY DUE TO EXCESS CA 05/09/2019 BRUCE FORTE MD Ot E78.00 PURE HYPERCHOLESTEROLEMIA, UNSPECIFIED 05/09/2019 BRUCE FORTE MD Ot F03.90 UNSPECIFIED DEMENTIA WITHOUT BEHAVIORAL 05/09/2019 BRUCE FORTE MD Ot I10 ESSENTIAL (PRIMARY) HYPERTENSION 05/09/2019 BRUCE FORTE MD Ot I48.91 UNSPECIFIED ATRIAL FIBRILLATION 05/09/2019 BRUCE FORTE MD Ot K21.9 GASTRO-ESOPHAGEAL REFLUX DISEASE WITHOUT 05/09/2019 BRUCE FORTE MD Ot M79.672 PAIN IN LEFT FOOT 05/09/2019 BRUCE FORTE MD Ot R10.84 GENERALIZED ABDOMINAL PAIN 05/09/2019 BRUCE FORTE MD Ot R41.0 DISORIENTATION, UNSPECIFIED 05/09/2019 BRUCE FORTE MD, Ot R41.82 ALTERED MENTAL STATUS, UNSPECIFIED 05/09/2019 BRUCE FORTE MD, Ot Z68.42 BODY MASS INDEX (BMI) 45.0-49.9, ADULT 05/09/2019 BRUCE FORTE MD Ot Z79.84 CLIENT SERVICES DIRECTOR (CURRENT) USE OF ORAL HYPOGLYC 05/09/2019 BRUCE FORTE MD, Ot Z86.711 PERSONAL HISTORY OF PULMONARY EMBOLISM 05/09/2019 BRUCE FORTE MD, Ot Z86.718 PERSONAL HISTORY OF OTHER VENOUS THROMBO 05/09/2019 BRUCE FORTE MD, Ot Z86.73 PRSNL HX OF TIA (TIA), AND CEREB INFRC W 05/09/2019 BRUCE FORTE MD, Ot Z88.0 ALLERGY STATUS TO PENICILLIN 05/09/2019 BRUCE FORTE MD, Ot Z88.5 ALLERGY STATUS TO NARCOTIC AGENT STATUS 05/09/2019 BRUCE FORTE MD, Ot Z88.6 ALLERGY STATUS TO ANALGESIC AGENT STATUS 05/09/2019 BRUCE FORTE MD, Ot Z95.0 PRESENCE OF CARDIAC PACEMAKER 05/20/2019 GELLENDER DO, ADEN Mohr Ot M25.561 PAIN IN RIGHT KNEE 05/20/2019 GELLENDER DO, ADEN Mohr Ot M25.562 PAIN IN LEFT KNEE 05/20/2019 GELLENDER DO, ADEN Mohr Ot Z98.890 OTHER SPECIFIED POSTPROCEDURAL STATES 06/06/2019 TWYLA VALVERDE APRN Ot D61.818 OTHER PANCYTOPENIA 06/06/2019 TWYLA VALVERDE APRN Ot D64 .9 ANEMIA, UNSPECIFIED 06/06/2019 TWYLA VALVERDE APRN Ot E11 .9 TYPE 2 DIABETES MELLITUS WITHOUT COMPLIC 06/06/2019 TWYLA VALVERDE APRN Ot E78.00 PURE HYPERCHOLESTEROLEMIA, UNSPECIFIED 06/06/2019 TWYLA VALVERDE APRN Ot F03.90 UNSPECIFIED DEMENTIA WITHOUT BEHAVIORAL 06/06/2019 TWYLA VALVERDE APRN Ot I10 ESSENTIAL (PRIMARY) HYPERTENSION 06/06/2019 TWYLA VALVERDE APRN Ot I48.91 UNSPECIFIED ATRIAL FIBRILLATION 06/06/2019 TWYLA VALVERDE APRN Ot K21 .9 GASTRO-ESOPHAGEAL REFLUX DISEASE WITHOUT 06/06/2019 TWYLA VALVERDE APRN Ot R53 .1 WEAKNESS 06/06/2019 TWYLA VALVERDE APRN Ot Z79.84 CLIENT SERVICES DIRECTOR (CURRENT) USE OF ORAL HYPOGLYC 06/06/2019 TWYLA VALVERDE APRN Ot Z82.49 FAMILY HX OF ISCHEM HEART DIS AND OTH DI 06/06/2019 TWYLA VALVERDE APRN Ot Z86.718 PERSONAL HISTORY OF OTHER VENOUS THROMBO 06/06/2019 TWYLA VALVERDE APRN Ot Z86.73 PRSNL HX OF TIA (TIA), AND CEREB INFRC W 06/06/2019 TWYLA VALVERDE APRN Ot Z88 .0 ALLERGY STATUS TO PENICILLIN 06/06/2019 TWYLA VALVERDE APRN Ot Z88 .5 ALLERGY STATUS TO NARCOTIC AGENT STATUS 06/06/2019 TWYLA VALVERDE APRN Ot Z88 .6 ALLERGY STATUS TO ANALGESIC AGENT STATUS 06/06/2019 TWYLA VALVERDE APRN Ot Z95 .0 PRESENCE OF CARDIAC PACEMAKER 06/10/2019 GELLENDER DO, ADEN A Ot M25.561 PAIN IN RIGHT KNEE 06/10/2019 GELLENDER DO, ADEN A Ot M25.562 PAIN IN LEFT KNEE 06/10/2019 GELLENDER DO, ADEN Mohr Ot Z98.890 OTHER SPECIFIED POSTPROCEDURAL STATES 06/15/2019 TWYLA VALVERDE APRN Ot D61.818 OTHER PANCYTOPENIA 06/15/2019 TWYLA VALVERDE APRN Ot D64 .9 ANEMIA, UNSPECIFIED 06/15/2019 TWYLA VALVERDE APRN Ot E11 .9 TYPE 2 DIABETES MELLITUS WITHOUT COMPLIC 06/15/2019 TWYLA VALVERDE APRN Ot E78.00 PURE HYPERCHOLESTEROLEMIA, UNSPECIFIED 06/15/2019 TWYLA VALVERDE APRN Ot F03.90 UNSPECIFIED DEMENTIA WITHOUT BEHAVIORAL 06/15/2019 TWYLA VALVERDE APRN Ot I10 ESSENTIAL (PRIMARY) HYPERTENSION 06/15/2019 TWYLA VALVERDE APRN Ot I48.91 UNSPECIFIED ATRIAL FIBRILLATION 06/15/2019 TWYLA VALVERDE APRN Ot K21 .9 GASTRO-ESOPHAGEAL REFLUX DISEASE WITHOUT 06/15/2019 TWYLA VALVERDE APRN Ot R53 .1 WEAKNESS 06/15/2019 TWYLA VALVERDE APRN Ot Z79.84 [facility] (CURRENT) USE OF ORAL HYPOGLYC 06/15/2019 TWYLA VALVERDE APRN Ot Z82.49 FAMILY HX OF ISCHEM HEART DIS AND OTH DI 06/15/2019 TWYLA VALVERDE APRN Ot Z86.718 PERSONAL HISTORY OF OTHER VENOUS THROMBO 06/15/2019 TWYLA VALVERDE APRN Ot Z86.73 PRSNL HX OF TIA (TIA), AND CEREB INFRC W 06/15/2019 TWYLA VALVERDE MAILER APPRENTICE Ot Z88 .0 ALLERGY STATUS TO PENICILLIN 06/15/2019 TWYLA VALVERDE MAILER APPRENTICE Ot Z88 .5 ALLERGY STATUS TO NARCOTIC AGENT STATUS 06/15/2019 TWYLA VALVERDE MAILER APPRENTICE Ot Z88 .6 ALLERGY STATUS TO ANALGESIC AGENT STATUS 06/15/2019 TWYLA VALVERDE MAILER APPRENTICE Ot Z95 .0 PRESENCE OF CARDIAC PACEMAKER 07/12/2019 GELLENDER DO, ADEN Mohr Ot M25.561 PAIN IN RIGHT KNEE 07/12/2019 GELLENDER DO, ADEN Mohr Ot M25.562 PAIN IN LEFT KNEE 07/12/2019 GELLENDER DO, ADEN Mohr Ot Z98.890 OTHER SPECIFIED POSTPROCEDURAL STATES 07/22/2019 GELLENDER DO, ADEN Mohr Ot M79.89 OTHER SPECIFIED SOFT TISSUE DISORDERS 07/22/2019 GELLENDER DO, ADEN Mohr Ot R60.0 LOCALIZED EDEMA 08/02/2019 GELLENDER DO, ADEN Mohr Ot 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, ADEN Mohr Ot E66.01 MORBID (SEVERE) OBESITY DUE TO EXCESS CA 08/02/2019 [facility], ADEN Mohr Ot E78.00 PURE HYPERCHOLESTEROLEMIA, UNSPECIFIED 08/02/2019 GELLENDER DO, ADEN Mohr Ot E78.5 HYPERLIPIDEMIA, UNSPECIFIED 08/02/2019 GELLENDER DO, ADEN Mohr Ot E86.0 DEHYDRATION 08/02/2019 GELLENDER DO, ADEN Mohr Ot F03.90 UNSPECIFIED DEMENTIA WITHOUT BEHAVIORAL 08/02/2019 GELLENDER DO, ADEN Mohr Ot I10 ESSENTIAL (PRIMARY) HYPERTENSION 08/02/2019 [facility] Ot I25.10 ATHSCL HEART DISEASE OF [place] CORONARY 08/02/2019 [facility], ADEN Mohr Ot I48.91 UNSPECIFIED ATRIAL FIBRILLATION 08/02/2019 GELLENDER DO, ADEN Mohr Ot I49.5 SICK SINUS SYNDROME 08/02/2019 [facility], ADEN Mohr Ot I69.320 APHASIA FOLLOWING CEREBRAL INFARCTION 08/02/2019 [facility], ADEN Mohr Ot K21.9 GASTRO-ESOPHAGEAL REFLUX DISEASE WITHOUT 08/02/2019 GELLENDER DO, ADEN Mohr Ot K76.0 FATTY (CHANGE OF) LIVER, NOT ELSEWHERE C 08/02/2019 [facility] F[facility] Ot M19.91 PRIMARY OSTEOARTHRITIS, UNSPECIFIED SITE 08/02/2019 [facility] , ADEN Fani Ot N17.9 ACUTE KIDNEY FAILURE, UNSPECIFIED 08/02/2019 [facility] ADEN Fani Ot R16.1 SPLENOMEGALY, NOT ELSEWHERE CLASSIFIED 08/02/2019 [facility] Fani Ot S00.83XA CONTUSION OF OTHER PART OF HEAD, INITIAL 08/02/2019 [facility] ADEN Fani Ot W22.8XXA STRIKING AGAINST OR STRUCK BY OTHER OBJE 08/02/2019 [facility], ADEN Fani Ot Z68.42 BODY MASS INDEX (BMI) 45.0-49.9, ADULT 08/02/2019 [facility], ADEN Mohr Ot Z79.01 [facility] (CURRENT) USE OF ANTICOAGULANT 08/02/2019 [facility], ADEN Mohr Ot Z79.84 [facility] (CURRENT) USE OF ORAL HYPOGLYC 08/02/2019 [facility], ADEN Mohr Ot Z86.711 PERSONAL HISTORY OF PULMONARY EMBOLISM 08/02/2019 [facility], ADEN Mohr Ot Z86.718 PERSONAL HISTORY OF OTHER VENOUS THROMBO 08/02/2019 [facility], ADEN Mohr Ot Z88.0 ALLERGY STATUS TO PENICILLIN 08/02/2019 [facility], ADEN Mohr Ot Z88.5 ALLERGY STATUS TO NARCOTIC AGENT STATUS 08/02/2019 [facility] Z95.0 PRESENCE OF CARDIAC PACEMAKER 08/02/2019 [facility] Z96.652 PRESENCE OF LEFT ARTIFICIAL KNEE JOINT 08/02/2019 [facility] Mohr Ot Z99.3 DEPENDENCE ON WHEELCHAIR 08/08/2019 ALIDA FOWLER, KARAN Ot D61.818 OTHER PANCYTOPENIA 08/08/2019 KARAN IRWIN MD Ot E11. 9 TYPE 2 DIABETES MELLITUS WITHOUT COMPLIC 08/08/2019 KARAN IRWIN MD Ot E78. 5 HYPERLIPIDEMIA, UNSPECIFIED 08/08/2019 KARAN IRWIN MD Ot I10 ESSENTIAL (PRIMARY) HYPERTENSION 08/08/2019 KARAN IRWIN MD Ot I25. 10 ATHSCL HEART DISEASE OF [place] CORONARY 08/08/2019 KARAN IRWIN MD, Ot K21. 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 84 [facility] (CURRENT) USE OF ORAL HYPOGLYC 08/08/2019 KARAN IRWIN MD Ot Z95. 0 PRESENCE OF CARDIAC PACEMAKER 08/08/2019 KARAN IRWIN MD, Ot D61.818 OTHER PANCYTOPENIA 08/08/2019 KARAN IRWIN MD, Ot E11. 9 TYPE 2 DIABETES MELLITUS WITHOUT COMPLIC 08/08/2019 KARAN IRWIN MD, Ot E78. 5 HYPERLIPIDEMIA, UNSPECIFIED 08/08/2019 KARAN IRWIN MD Ot I10 ESSENTIAL (PRIMARY) HYPERTENSION 08/08/2019 KARAN IRWIN MD, Ot I25. 10 ATHSCL HEART DISEASE OF [place] CORONARY 08/08/2019 KARAN IRWIN MD, Ot K21. 9 GASTRO-ESOPHAGEAL REFLUX DISEASE WITHOUT 08/08/2019 KARAN IRWIN MD, Ot Z79. 01 [facility] (CURRENT) USE OF ANTICOAGULANT 08/08/2019 KARAN IRWIN MD, Ot Z79. 84 CLIENT SERVICES DIRECTOR (CURRENT) USE OF ORAL HYPOGLYC 08/08/2019 KARAN IRWIN MD Ot Z95. 0 PRESENCE OF CARDIAC PACEMAKER 08/26/2019 GELLENDER DOADEN Ot M79.89 OTHER SPECIFIED SOFT TISSUE DISORDERS 08/26/2019 ADEN LEE DO Ot R60.0 LOCALIZED EDEMA 09/07/2019 KARAN IRWIN MD Ot D61.818 OTHER PANCYTOPENIA 09/07/2019 KARAN IRWIN MD, Ot E11. 9 TYPE 2 DIABETES MELLITUS WITHOUT COMPLIC 09/07/2019 KARAN IRWIN MD, Ot E78. 5 HYPERLIPIDEMIA, UNSPECIFIED 09/07/2019 KARAN IRWIN MD, Ot I10 ESSENTIAL (PRIMARY) HYPERTENSION 09/07/2019 KARAN IRWIN MD Ot I25. 10 ATHSCL HEART DISEASE OF [place] CORONARY 09/07/2019 KARAN IRWIN MD Ot K21. 9 GASTRO-ESOPHAGEAL REFLUX DISEASE WITHOUT 09/07/2019 KARAN IRWIN MD Ot Z79. 01 [facility] (CURRENT) USE OF ANTICOAGULANT 09/07/2019 KARAN IRWIN MD Ot Z79. 84 [facility] (CURRENT) USE OF ORAL HYPOGLYC 09/07/2019 KARAN IRWIN MD Ot Z95. 0 PRESENCE OF CARDIAC PACEMAKER 09/27/2019 KARAN IRWIN MD, Ot D61.818 OTHER PANCYTOPENIA 09/27/2019 KARAN IRWIN MD Ot E11. 9 TYPE 2 DIABETES MELLITUS WITHOUT COMPLIC 09/27/2019 KARAN IRWIN MD Ot E78. 5 HYPERLIPIDEMIA, UNSPECIFIED 09/27/2019 KARAN IRWIN MD Ot I10 ESSENTIAL (PRIMARY) HYPERTENSION 09/27/2019 KARAN IRWIN MD, Ot I25. 10 ATHSCL HEART DISEASE OF [place] CORONARY 09/27/2019 KARAN IRWIN MD, Ot K21. 9 GASTRO-ESOPHAGEAL REFLUX DISEASE WITHOUT 09/27/2019 KARAN IRWIN MD, Ot Z79. 01 [facility] (CURRENT) USE OF ANTICOAGULANT 09/27/2019 KARAN IRWIN MD Ot Z79. 84 [facility] (CURRENT) USE OF ORAL HYPOGLYC 09/27/2019 KARAN IRWIN MD Ot Z95. 0 PRESENCE OF CARDIAC PACEMAKER 10/29/2019 GELLENDER DO, ADEN Mohr Ot D64.9 ANEMIA, UNSPECIFIED 10/29/2019 GELLENDER DO, ADEN Mohr Ot D69.6 THROMBOCYTOPENIA, UNSPECIFIED 10/29/2019 GELLENDER DO, ADEN Mohr Ot E11.9 TYPE 2 DIABETES MELLITUS WITHOUT COMPLIC 10/29/2019 GELLENDER DO, ADEN Mohr Ot E66.01 MORBID (SEVERE) OBESITY DUE TO EXCESS CA 10/29/2019 GELLENDER DO, ADEN Mohr Ot E78.00 PURE HYPERCHOLESTEROLEMIA, UNSPECIFIED 10/29/2019 GELLENDER DO, ADEN Mohr Ot F03.90 UNSPECIFIED DEMENTIA WITHOUT BEHAVIORAL 10/29/2019 GELLENDER DO, ADEN Mohr Ot I11.0 HYPERTENSIVE HEART DISEASE WITH HEART FA 10/29/2019 GELLENDER DO, ADEN Mohr Ot I25.10 ATHSCL HEART DISEASE OF [place] CORONARY 10/29/2019 GELLENDER DO, ADEN Mohr Ot I48.0 PAROXYSMAL ATRIAL FIBRILLATION 10/29/2019 GELLENDER DO, ADEN Mohr Ot I50.33 ACUTE ON CHRONIC DIASTOLIC (CONGESTIVE) 10/29/2019 GELLENDER DO, ADEN Mohr Ot I63.9 CEREBRAL INFARCTION, UNSPECIFIED 10/29/2019 GELLENDER DO, ADEN Mohr Ot I65.23 OCCLUSION AND STENOSIS OF BILATERAL PELLETIER 10/29/2019 GELLENDER DO, ADEN Mohr Ot I69.320 APHASIA FOLLOWING CEREBRAL INFARCTION 10/29/2019 GELLENDER DO, ADEN Mohr Ot 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 10/29/2019 GELLENDER DO, ADEN Mohr Ot I87.2 VENOUS INSUFFICIENCY (CHRONIC) (PERIPHER 10/29/2019 GELLENDER DO, ADEN Mohr Ot K21.9 GASTRO-ESOPHAGEAL REFLUX DISEASE WITHOUT 10/29/2019 GELLENDER DO, ADEN Mohr Ot M16.11 UNILATERAL PRIMARY OSTEOARTHRITIS, RIGHT 10/29/2019 GELLENDER DO, ADEN Mohr Ot M17.11 UNILATERAL PRIMARY OSTEOARTHRITIS, RIGHT 10/29/2019 GELLENDER DO, ADEN Mohr Ot M54.9 DORSALGIA, UNSPECIFIED 10/29/2019 GELLENDER DO, ADEN Mohr Ot R15.9 FULL INCONTINENCE OF FECES 10/29/2019 GELLENDER DO, ADEN Mohr Ot R32 UNSPECIFIED URINARY INCONTINENCE 10/29/2019 GELLENDER DO, ADEN Mohr Ot R41.841 COGNITIVE COMMUNICATION DEFICIT 10/29/2019 GELLENDER DO, ADEN Mohr Ot Z68.42 BODY MASS INDEX (BMI) 45.0-49.9, ADULT 10/29/2019 GELLENDER DO, ADEN Mohr Ot Z87.19 PERSONAL HISTORY OF OTHER DISEASES OF TH 10/29/2019 GELLENDER DO, ADEN Mohr Ot Z95.0 PRESENCE OF CARDIAC PACEMAKER 10/29/2019 GELLENDER DO, ADEN Mohr Ot Z95.9 PRESENCE OF CARDIAC AND VASCULAR IMPLANT 10/29/2019 GELLENDER DO, ADEN Mohr Ot Z96.652 PRESENCE OF LEFT ARTIFICIAL KNEE JOINT 10/29/2019 GELLENDER DO, ADEN Mohr Ot D64.9 ANEMIA, UNSPECIFIED 10/29/2019 GELLENDER DO, ADEN Mohr Ot D69.6 THROMBOCYTOPENIA, UNSPECIFIED 10/29/2019 GELLENDER DO, ADEN Mohr Ot E11.9 TYPE 2 DIABETES MELLITUS WITHOUT COMPLIC 10/29/2019 GELLENDER DO, ADEN Mohr Ot E66.01 MORBID (SEVERE) OBESITY DUE TO EXCESS CA 10/29/2019 GELLENDER DO, ADEN Mohr Ot E78.00 PURE HYPERCHOLESTEROLEMIA, UNSPECIFIED 10/29/2019 GELLENDER DO, ADEN Mohr Ot F03.90 UNSPECIFIED DEMENTIA WITHOUT BEHAVIORAL 10/29/2019 GELLENDER DO, ADEN Mohr Ot I11.0 HYPERTENSIVE HEART DISEASE WITH HEART FA 10/29/2019 GELLENDER DO, ADEN Mohr Ot I25.10 ATHSCL HEART DISEASE OF [place] CORONARY 10/29/2019 GELLENDER DO, ADEN Mohr Ot I48.0 PAROXYSMAL ATRIAL FIBRILLATION 10/29/2019 GELLENDER DO, ADEN Mohr Ot I50.33 ACUTE ON CHRONIC DIASTOLIC (CONGESTIVE) 10/29/2019 GELLENDER DO, ADEN Mohr Ot I63.9 CEREBRAL INFARCTION, UNSPECIFIED 10/29/2019 GELLENDER DO, ADEN Mohr Ot I65.23 OCCLUSION AND STENOSIS OF BILATERAL PELLETIER 10/29/2019 GELLENDER DO, ADEN Mohr Ot I69.320 APHASIA FOLLOWING CEREBRAL INFARCTION 10/29/2019 GELLENDER DO, ADEN Mohr Ot 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 10/29/2019 GELLENDER DO, ADEN Mohr Ot I87.2 VENOUS INSUFFICIENCY (CHRONIC) (PERIPHER 10/29/2019 GELLENDER DO, ADEN Mohr Ot K21.9 GASTRO-ESOPHAGEAL REFLUX DISEASE WITHOUT 10/29/2019 GELLENDER DO, ADEN Mohr Ot M16.11 UNILATERAL PRIMARY OSTEOARTHRITIS, RIGHT 10/29/2019 GELLENDER DO, ADEN Mohr Ot M17.11 UNILATERAL PRIMARY OSTEOARTHRITIS, RIGHT 10/29/2019 GELLENDER DO, ADEN Mohr Ot M54.9 DORSALGIA, UNSPECIFIED 10/29/2019 GELLENDER DO, ADEN Mohr Ot R15.9 FULL INCONTINENCE OF FECES 10/29/2019 GELLENDER DO, ADEN Mohr Ot R32 UNSPECIFIED URINARY INCONTINENCE 10/29/2019 GELLENDER DO, ADEN Mohr Ot R41.841 COGNITIVE COMMUNICATION DEFICIT 10/29/2019 GELLENDER DO, ADEN Mohr Ot Z68.42 BODY MASS INDEX (BMI) 45.0-49.9, ADULT 10/29/2019 GELLENDER DO, ADEN Mohr Ot Z87.19 PERSONAL HISTORY OF OTHER DISEASES OF TH 10/29/2019 GELLENDER DO, ADEN Mohr Ot Z95.0 PRESENCE OF CARDIAC PACEMAKER 10/29/2019 GELLENDER DO, ADEN Morh Ot Z95.9 PRESENCE OF CARDIAC AND VASCULAR IMPLANT 10/29/2019 GELLENDER DO, ADEN Mohr Ot Z96.652 PRESENCE OF LEFT ARTIFICIAL KNEE JOINT Procedures Code Description Performed By Evan faith On [id number] IN SERT OF MONITOR DEV INTO CHEST SUBCU/F 03/19/2018 [id number] IN SERTION OF PACEMAKER LEAD INTO RIGHT A 03/30/2018 [id number] IN SERTION OF PACEMAKER LEAD INTO R VENTR 03/30/2018 [id number] IN SERT PACE. DUAL LEONA IN CHEST SUBCU/FA 03/30/2018 [id number] EX CISION OF ESOPHAGOGASTRIC JUNCTION, EN 04/05/2018 [id number] EX CISION OF ESOPHAGUS, ENDO, DIAGN 04/05/2018 [id number] EX CISION OF STOMACH, ENDO, DIAGN 04/05/2018 [id number] EX TRACTION OF LOWER ESOPHAGUS, ENDO, TIFFANI 04/05/2018 [id number] IN SPECTION OF LOWER INTESTINAL TRACT, EN 04/05/2018 [id number] IN SERTION OF INFUSION DEV INTO SUP VENA 2018 Results Test Result Range Automated blood complete blood count (he mogram) panel - 05/06/16 08:36 Blood leukocytes automated count (number/volume) 3.7 10*3/uL 4.3-11.0 Blood erythrocytes automated count (number/volume) 4.30 10*6/uL 4.35-5.85 Venous blood hemoglobin measurement (mass/volume) 12.2 g/dL 11.5-16.0 Blood hematocrit (volume fraction) 37 % 35-52 Automated erythrocyte mean corpuscular volume 86 [ foz_us] 80-99 Automated erythrocyte mean corpuscular h emoglobin (mass per erythrocyte) 28 pg 25-34 Automated erythrocyte mean corpuscular h emoglobin concentration measurement (mass/volume) 33 g/dL 32-36 Automated erythrocyte distribution width ratio 15. 0 % 10.0- 14.5 Automated blood platelet count (count/volume) 114 10*3/uL [...] 5-14 Serum or plasma urea nitrogen measurement (mass/volume ) 12 mg/dL 7-18 Serum or plasma creatinine measurement (mass/volume) 0.63 mg/dL 0.60-1.30 Serum or plasma urea nitrogen/creatinine mass ratio 19 NRG Serum or plasma creatinine measurement w ith calculation of estimated glomerular filtration rate > NRG Serum or plasma glucose measurement (mass/volume) 125 mg/dL 70-105 Serum or plasma calcium measurement (mass/volume) 9.1 mg/dL 8.5-10.1 Serum or plasma total bilirubin measurement (mass/volu me) 1.0 mg/dL 0.1-1.0 Serum or plasma alkaline phosphatase davion surement (enzymatic activity/volume) 72 U/L 40-136 Serum or plasma aspartate aminotransfera se measurement (enzymatic activity/volume) 20 U/L 5-34 Serum or plasma alanine aminotransferase measurement (enzymatic activity/volume) 14 U/L 0-55 Serum or plasma protein measurement (mass/volume) 6.4 g/dL 6.4-8.2 Serum or plasma albumin measurement (mass/volume) 3.3 g/dL 3.2-4.5 Lipid 1996 panel - 05/06/16 08:36 Serum or plasma triglyceride measurement (mass/volume) 91 mg/dL <150 Serum or plasma cholesterol measurement (mass/volume) 150 mg/dL < 200 Serum or plasma cholesterol in HDL measurement (mass/v olume) 44 mg/dL 40-60 Cholesterol in LDL [mass/volume] in serum or plasma by direct assay 92 mg/dL 1-129 Serum or plasma cholesterol in VLDL measurement (mass/ volume) 18 mg/dL 5-40 Hemoglobin A1c - 05/06/16 08:36 Hemoglobin A1c 5.6 % 4.5-6.2 Automated blood complete blood count (he mogram) panel - 05/21/16 08:14 Blood leukocytes automated count (number/volume) 4.1 10*3/uL 4.3-11.0 Blood erythrocytes automated count (number/volume) 4.24 10*6/uL 4.35-5.85 Venous blood hemoglobin measurement (mass/volume) 11.9 g/dL 11.5-16.0 Blood hematocrit (volume fraction) 37 % 35-52 Automated erythrocyte mean corpuscular volume 87 [ foz_us] 80-99 Automated erythrocyte mean corpuscular h emoglobin (mass per erythrocyte) 28 pg 25-34 Automated erythrocyte mean corpuscular h emoglobin concentration measurement (mass/volume) 32 g/dL 32-36 Automated erythrocyte distribution width ratio 15. 1 % 10.0- 14.5 Automated blood platelet count (count/volume) 125 10*3/uL 130-400 Automated blood platelet mean volume measurement 11.0 [foz_us] 7.4-10.4 Automated blood complete blood count (he mogram) panel - 08/28/16 08:40 Blood leukocytes automated count (number/volume) 4.6 10*3/uL 4.3-11.0 Blood erythrocytes automated count (number/volume) 4.17 10*6/uL 4.35-5.85 Venous blood hemoglobin measurement (mass/volume) 12.6 g/dL 11.5-16.0 Blood hematocrit (volume fraction) 38 % 35-52 Automated erythrocyte mean corpuscular volume 91 [ foz_us] 80-99 Automated erythrocyte mean corpuscular h emoglobin (mass per erythrocyte) 30 pg 25-34 Automated erythrocyte mean corpuscular h emoglobin concentration measurement (mass/volume) 33 g/dL 32-36 Automated erythrocyte distribution width ratio 14. 5 % 10.0- 14.5 Automated blood platelet count (count/volume) 136 10*3/uL [...] 5-14 Serum or plasma urea nitrogen measurement (mass/volume ) 18 mg/dL 7-18 Serum or plasma creatinine measurement (mass/volume) 0.68 mg/dL 0.60-1.30 Serum or plasma urea nitrogen/creatinine mass ratio 26 NRG Serum or plasma creatinine measurement w ith calculation of estimated glomerular filtration rate > NRG Serum or plasma glucose measurement (mass/volume) 127 mg/dL 70-105 Serum or plasma calcium measurement (mass/volume) 9.0 mg/dL 8.5-10.1 Serum or plasma total bilirubin measurement (mass/volu me) 0.8 mg/dL 0.1-1.0 Serum or plasma alkaline phosphatase davion surement (enzymatic activity/volume) 77 U/L 40-136 Serum or plasma aspartate aminotransfera se measurement (enzymatic activity/volume) 22 U/L 5-34 Serum or plasma alanine aminotransferase measurement (enzymatic activity/volume) 17 U/L 0-55 Serum or plasma protein measurement (mass/volume) 6.6 g/dL 6.4-8.2 Serum or plasma albumin measurement (mass/volume) 3.4 g/dL 3.2-4.5 Lipid 1996 panel - 08/28/16 08:40 Serum or plasma triglyceride measurement (mass/volume) 93 mg/dL <150 Serum or plasma cholesterol measurement (mass/volume) 175 mg/dL < 200 Serum or plasma cholesterol in HDL measurement (mass/v olume) 50 mg/dL 40-60 Cholesterol in LDL [mass/volume] in serum or plasma by direct assay 108 mg/dL 1-129 Serum or plasma cholesterol in VLDL measurement (mass/ volume) 19 mg/dL 5-40 Hemoglobin A1c - 08/28/16 08:40 Hemoglobin A1c 6.3 % 4.5-6.2 Complete urinalysis with reflex to cultu re - 10/07/16 13:53 Urine color determination YELLOW NRG Urine clarity determination CLEAR NR G Urine pH measurement by test strip 6 5-9 Specific gravity of urine by test strip 1.015 1.016-1.022 Urine protein assay by test strip, semi-quantitative NEGATIVE NEGATIVE Urine glucose detection by automated test strip NE GATIVE NEGATIVE Erythrocytes detection in urine sediment by light micr oscopy NEGATIVE NEGATIVE Urine ketones detection by automated test strip NE GATIVE NEGATIVE Urine nitrite detection by test strip NEGATIVE NEGATIVE Urine total bilirubin detection by test strip NEGA TIVE NEGATIVE Urine urobilinogen measurement by automated test strip (mass/volume) 4 mg/dL NORMAL Urine leukocyte esterase detection by dipstick NEG ATIVE NEGATIVE Automated urine sediment erythrocyte cou nt by microscopy (number/high power field) NONE NRG Automated urine sediment leukocyte count by microscopy (number/high power field) NONE NRG Bacteria detection in urine sediment by light microsco py NEGATIVE NRG Squamous epithelial cells detection in u rine sediment by light microscopy 2-5 NRG Crystals detection in urine sediment by light microsco py NONE NRG Casts detection in urine sediment by light microscopy NONE NRG Mucus detection in urine sediment by light microscopy NEGATIVE NRG Complete urinalysis with reflex to culture NO NRG Complete blood count (CBC) with automate d white blood cell (WBC) differential - 12/23/16 09:08 Blood leukocytes automated count (number/volume) 3.4 10*3/uL 4.3-11.0 Blood erythrocytes automated count (number/volume) 4.02 10*6/uL 4.35-5.85 Venous blood hemoglobin measurement (mass/volume) 11.7 g/dL 11.5-16.0 Blood hematocrit (volume fraction) 36 % 35-52 Automated erythrocyte mean corpuscular volume 89 [ foz_us] 80-99 Automated erythrocyte mean corpuscular h emoglobin (mass per erythrocyte) 29 pg 25-34 Automated erythrocyte mean corpuscular h emoglobin concentration measurement (mass/volume) 33 g/dL 32-36 Automated erythrocyte distribution width ratio 14. 1 % 10.0- 14.5 Automated blood platelet count (count/volume) 112 10*3/uL [...] 10*3 1.0-4.0 Blood monocytes automated count (number/volume) 0. 2 10*3 0.0-1.0 Automated eosinophil count 0.2 10*3/uL 0 .0-0.3 Automated blood basophil count (count/volume) 0.0 10*3/uL 0.0-0.1 Comprehensive metabolic panel - 12/23/16 09:08 Serum or plasma sodium measurement (moles/volume) 144 mmol/L 135-145 Serum or plasma potassium measurement (moles/volume) 3.7 mmol/L 3.6-5.0 Serum or plasma chloride measurement (moles/volume) 109 mmol/L 98-107 Carbon dioxide 26 mmol/L 21-32 Serum or plasma anion gap determination (moles/volume) 9 mmol/L 5-14 Serum or plasma urea nitrogen measurement (mass/volume ) 20 mg/dL 7-18 Serum or plasma creatinine measurement (mass/volume) 0.70 mg/dL 0.60-1.30 Serum or plasma urea nitrogen/creatinine mass ratio 29 NRG Serum or plasma creatinine measurement w ith calculation of estimated glomerular filtration rate > NRG Serum or plasma glucose measurement (mass/volume) 127 mg/dL 70-105 Serum or plasma calcium measurement (mass/volume) 9.0 mg/dL 8.5-10.1 Serum or plasma total bilirubin measurement (mass/volu me) 0.9 mg/dL 0.1-1.0 Serum or plasma alkaline phosphatase davion surement (enzymatic activity/volume) 74 U/L 40-136 Serum or plasma aspartate aminotransfera se measurement (enzymatic activity/volume) 18 U/L 5-34 Serum or plasma alanine aminotransferase measurement (enzymatic activity/volume) 12 U/L 0-55 Serum or plasma protein measurement (mass/volume) 6.2 g/dL 6.4-8.2 Serum or plasma albumin measurement (mass/volume) 3.3 g/dL 3.2-4.5 Lipid 1996 panel - 12/23/16 09:08 Serum or plasma triglyceride measurement (mass/volume) 99 mg/dL <150 Serum or plasma cholesterol measurement (mass/volume) 144 mg/dL < 200 Serum or plasma cholesterol in HDL measurement (mass/v olume) 42 mg/dL 40-60 Cholesterol in LDL [mass/volume] in serum or plasma by direct assay 83 mg/dL 1-129 Serum or plasma cholesterol in VLDL measurement (mass/ volume) 20 mg/dL 5-40 Hemoglobin A1c - 12/23/16 09:08 Hemoglobin A1c 6.2 % 4.5-6.2 Automated blood complete blood count (he mogram) panel - 01/19/17 08:29 Blood leukocytes automated count (number/volume) 3.8 10*3/uL 4.3-11.0 Blood erythrocytes automated count (number/volume) 4.08 10*6/uL 4.35-5.85 Venous blood hemoglobin measurement (mass/volume) 11.6 g/dL 11.5-16.0 Blood hematocrit (volume fraction) 37 % 35-52 Automated erythrocyte mean corpuscular volume 90 [ foz_us] 80-99 Automated erythrocyte mean corpuscular h emoglobin (mass per erythrocyte) 28 pg 25-34 Automated erythrocyte mean corpuscular h emoglobin concentration measurement (mass/volume) 32 g/dL 32-36 Automated erythrocyte distribution width ratio 14. 6 % 10.0- 14.5 Automated blood platelet count (count/volume) 113 10*3/uL 130-400 Automated blood platelet mean volume measurement 10.6 [foz_us] 7.4-10.4 Whole blood basic metabolic panel - 07/02 02/14 11:20 Serum or plasma sodium measurement (moles/volume) 142 mmol/L 135-145 Serum or plasma potassium measurement (moles/volume) 4.4 mmol/L 3.6-5.0 Serum or plasma chloride measurement (moles/volume) 110 mmol/L 98-107 Carbon dioxide 20 mmol/L 21-32 Serum or plasma anion gap determination (moles/volume) 12 mmol/L 5-14 Serum or plasma urea nitrogen measurement (mass/volume ) 13 mg/dL 7-18 Serum or plasma creatinine measurement (mass/volume) 0.66 mg/dL 0.60-1.30 Serum or plasma urea nitrogen/creatinine mass ratio 20 NRG Serum or plasma creatinine measurement w ith calculation of estimated glomerular filtration rate > NRG Serum or plasma glucose measurement (mass/volume) 127 mg/dL 70-105 Serum or plasma calcium measurement (mass/volume) 9.2 mg/dL 8.5-10.1 Complete urinalysis with reflex to cultu re - 07/26/17 11:20 Urine color determination STRAW NRG Urine clarity determination CLEAR NR G Urine pH measurement by test strip 8 5-9 Specific gravity of urine by test strip 1.015 1.016-1.022 Urine protein assay by test strip, semi-quantitative NEGATIVE NEGATIVE Urine glucose detection by automated test strip NE GATIVE NEGATIVE Erythrocytes detection in urine sediment by light micr oscopy 1+ NEGATIVE Urine ketones detection by automated test strip NE GATIVE NEGATIVE Urine nitrite detection by test strip NEGATIVE NEGATIVE Urine total bilirubin detection by test strip NEGA TIVE NEGATIVE Urine urobilinogen measurement by automated test strip (mass/volume) NORMAL NORMAL Urine leukocyte esterase detection by dipstick NEG ATIVE NEGATIVE Automated urine sediment erythrocyte cou nt by microscopy (number/high power field) NONE NRG Automated urine sediment leukocyte count by microscopy (number/high power field) NONE NRG Bacteria detection in urine sediment by light microsco py TRACE NRG Crystals detection in urine sediment by light microsco py NONE NRG Casts detection in urine sediment by light microscopy NONE NRG Mucus detection in urine sediment by light microscopy NEGATIVE NRG Complete urinalysis with reflex to culture NO NRG Complete blood count (CBC) with automate d white blood cell (WBC) differential - 07/26/17 12:30 Blood leukocytes automated count (number/volume) 6.4 10*3/uL 4.3-11.0 Blood erythrocytes automated count (number/volume) 4.16 10*6/uL 4.35-5.85 Venous blood hemoglobin measurement (mass/volume) 12.2 g/dL 11.5-16.0 Blood hematocrit (volume fraction) 37 % 35-52 Automated erythrocyte mean corpuscular volume 88 [ foz_us] 80-99 Automated erythrocyte mean corpuscular h emoglobin (mass per erythrocyte) 29 pg 25-34 Automated erythrocyte mean corpuscular h emoglobin concentration measurement (mass/volume) 33 g/dL 32-36 Automated erythrocyte distribution width ratio 13. 9 % 10.0- 14.5 Automated blood platelet count (count/volume) 125 10*3/uL [...] 10*3 1.0-4.0 Blood monocytes automated count (number/volume) 0. 6 10*3 0.0-1.0 Automated eosinophil count 0.1 10*3/uL 0 .0-0.3 Automated blood basophil count (count/volume) 0.0 10*3/uL [...] 5-14 Serum or plasma urea nitrogen measurement (mass/volume ) 14 mg/dL 7-18 Serum or plasma creatinine measurement (mass/volume) 0.71 mg/dL 0.60-1.30 Serum or plasma urea nitrogen/creatinine mass ratio 20 NRG Serum or plasma creatinine measurement w ith calculation of estimated glomerular filtration rate > NRG Serum or plasma glucose measurement (mass/volume) 108 mg/dL 70-105 Serum or plasma calcium measurement (mass/volume) 9.0 mg/dL 8.5-10.1 Serum or plasma total bilirubin measurement (mass/volu me) 0.9 mg/dL 0.1-1.0 Serum or plasma alkaline phosphatase davion surement (enzymatic activity/volume) 82 U/L 40-136 Serum or plasma aspartate aminotransfera se measurement (enzymatic activity/volume) 17 U/L 5-34 Serum or plasma alanine aminotransferase measurement (enzymatic activity/volume) 13 U/L 0-55 Serum or plasma protein measurement (mass/volume) 6.7 g/dL 6.4-8.2 Serum or plasma albumin measurement (mass/volume) 3.3 g/dL 3.2-4.5 Lipid 1996 panel - 08/05/17 08:25 Serum or plasma triglyceride measurement (mass/volume) 65 mg/dL <150 Serum or plasma cholesterol measurement (mass/volume) 161 mg/dL < 200 Serum or plasma cholesterol in HDL measurement (mass/v olume) 52 mg/dL 40-60 Cholesterol in LDL [mass/volume] in serum or plasma by direct assay 97 mg/dL 1-129 Serum or plasma cholesterol in VLDL measurement (mass/ volume) 13 mg/dL 5-40 Hemoglobin A1c - 08/05/17 08:25 Hemoglobin A1c 5.8 % 4.5-6.2 Complete urinalysis with reflex to cultu re - 03/08/18 14:14 Urine color determination YELLOW NRG Urine clarity determination CLEAR NR G Urine pH measurement by test strip 7 5-9 Specific gravity of urine by test strip 1.010 1.016-1.022 Urine protein assay by test strip, semi-quantitative NEGATIVE NEGATIVE Urine glucose detection by automated test strip NE GATIVE NEGATIVE Erythrocytes detection in urine sediment by light micr oscopy NEGATIVE NEGATIVE Urine ketones detection by automated test strip NE GATIVE NEGATIVE Urine nitrite detection by test strip NEGATIVE NEGATIVE Urine total bilirubin detection by test strip NEGA TIVE NEGATIVE Urine urobilinogen measurement by automated test strip (mass/volume) 1 mg/dL NORMAL Urine leukocyte esterase detection by dipstick 1+ NEGATIVE Automated urine sediment erythrocyte cou nt by microscopy (number/high power field) [HPF] NRG Automated urine sediment leukocyte count by microscopy (number/high power field) NONE NRG Bacteria detection in urine sediment by light microsco py TRACE NRG Squamous epithelial cells detection in u rine sediment by light microscopy 0-2 NRG Crystals detection in urine sediment by light microsco py NONE NRG Casts detection in urine sediment by light microscopy NONE NRG Mucus detection in urine sediment by light microscopy NEGATIVE NRG Complete urinalysis with reflex to culture NO NRG Complete blood count (CBC) with automate d white blood cell (WBC) differential - 03/08/18 14:28 Blood leukocytes automated count (number/volume) 3.7 10*3/uL 4.3-11.0 Blood erythrocytes automated count (number/volume) 4.38 10*6/uL 4.35-5.85 Venous blood hemoglobin measurement (mass/volume) 12.9 g/dL 11.5-16.0 Blood hematocrit (volume fraction) 40 % 35-52 Automated erythrocyte mean corpuscular volume 91 [ foz_us] 80-99 Automated erythrocyte mean corpuscular h emoglobin (mass per erythrocyte) 30 pg 25-34 Automated erythrocyte mean corpuscular h emoglobin concentration measurement (mass/volume) 32 g/dL 32-36 Automated erythrocyte distribution width ratio 14. 8 % 10.0- 14.5 Automated blood platelet count (count/volume) 96 1 0*3/uL 130-400 Automated blood platelet mean volume measurement [...] 10*3 1.0-4.0 Blood monocytes automated count (number/volume) 0. 4 10*3 0.0-1.0 Automated eosinophil count 0.2 10*3/uL 0 .0-0.3 Automated blood basophil count (count/volume) 0.0 10*3/uL 0.0-0.1 Comprehensive metabolic panel - 03/08/18 14:28 Serum or plasma sodium measurement (moles/volume) 141 mmol/L 135-145 Serum or plasma potassium measurement (moles/volume) 3.6 mmol/L 3.6-5.0 Serum or plasma chloride measurement (moles/volume) 105 mmol/L 98-107 Carbon dioxide 25 mmol/L 21-32 Serum or plasma anion gap determination (moles/volume) 11 mmol/L 5-14 Serum or plasma urea nitrogen measurement (mass/volume ) 18 mg/dL 7-18 Serum or plasma creatinine measurement (mass/volume) 0.83 mg/dL 0.60-1.30 Serum or plasma urea nitrogen/creatinine mass ratio 22 NRG Serum or plasma creatinine measurement w ith calculation of estimated glomerular filtration rate > NRG Serum or plasma glucose measurement (mass/volume) 176 mg/dL 70-105 Serum or plasma calcium measurement (mass/volume) 9.4 mg/dL 8.5-10.1 Serum or plasma total bilirubin measurement (mass/volu me) 0.9 mg/dL 0.1-1.0 Serum or plasma alkaline phosphatase davion surement (enzymatic activity/volume) 77 U/L 40-136 Serum or plasma aspartate aminotransfera se measurement (enzymatic activity/volume) 17 U/L 5-34 Serum or plasma alanine aminotransferase measurement (enzymatic activity/volume) 10 U/L 0-55 Serum or plasma protein measurement (mass/volume) 6.9 g/dL 6.4-8.2 Serum or plasma albumin measurement (mass/volume) 3.4 g/dL 3.2-4.5 Serum or plasma troponin i.cardiac measu rement (mass/volume) - 03/08/18 14:28 Serum or plasma troponin i.cardiac measurement (mass/v olume) < ng/mL <0.30 PT panel in platelet poor plasma by coag ulation assay - 03/08/18 15:24 Prothrombin time (PT) in platelet poor plasma by coagu lation assay 15.4 s 12.2-14.7 INR in platelet poor plasma or blood by coagulation as say 1.2 0.8-1.4 Activated partial thromboplastin time (a PTT) in platelet poor plasma bycoagulation assay - 03/08/18 15:24 Activated partial thromboplastin time (a PTT) in platelet poor plasma bycoagulation assay 33 s 24-35 Fibrin D-dimer FEU measurement in platel et poor plasma (mass/volume) - 03/08/18 15:24 Fibrin D-dimer FEU measurement in platelet poor plasma (mass/volume) 1.26 ug/mL 0.00-0.49 Complete blood count (CBC) with automate d white blood cell (WBC) differential - 03/09/18 05:11 Blood leukocytes automated count (number/volume) 5.4 10*3/uL 4.3-11.0 Blood erythrocytes automated count (number/volume) 3.79 10*6/uL 4.35-5.85 Venous blood hemoglobin measurement (mass/volume) 11.3 g/dL 11.5-16.0 Blood hematocrit (volume fraction) 34 % 35-52 Automated erythrocyte mean corpuscular volume 89 [ foz_us] 80-99 Automated erythrocyte mean corpuscular h emoglobin (mass per erythrocyte) 30 pg 25-34 Automated erythrocyte mean corpuscular h emoglobin concentration measurement (mass/volume) 34 g/dL 32-36 Automated erythrocyte distribution width ratio 14. 7 % 10.0- 14.5 Automated blood platelet count (count/volume) 119 10*3/uL [...] 10*3 1.0-4.0 Blood monocytes automated count (number/volume) 0. 5 10*3 0.0-1.0 Automated eosinophil count 0.3 10*3/uL 0 .0-0.3 Automated blood basophil count (count/volume) 0.0 10*3/uL 0.0-0.1 Whole blood basic metabolic panel - 02/28 05:11 Serum or plasma sodium measurement (moles/volume) 142 mmol/L 135-145 Serum or plasma potassium measurement (moles/volume) 4.0 mmol/L 3.6-5.0 Serum or plasma chloride measurement (moles/volume) 108 mmol/L 98-107 Carbon dioxide 27 mmol/L 21-32 Serum or plasma anion gap determination (moles/volume) 7 mmol/L 5-14 Serum or plasma urea nitrogen measurement (mass/volume ) 14 mg/dL 7-18 Serum or plasma creatinine measurement (mass/volume) 0.69 mg/dL 0.60-1.30 Serum or plasma urea nitrogen/creatinine mass ratio 20 NRG Serum or plasma creatinine measurement w ith calculation of estimated glomerular filtration rate > NRG Serum or plasma glucose measurement (mass/volume) 113 mg/dL 70-105 Serum or plasma calcium measurement (mass/volume) 8.6 mg/dL 8.5-10.1 Serum or plasma creatine kinase measurem ent (enzymatic activity/volume) - 03/09/18 05:11 Serum or plasma creatine kinase measurem ent (enzymatic activity/volume) 26 U/L 29-168 Lipid 1996 panel - 03/09/18 05:11 Serum or plasma triglyceride measurement (mass/volume) 72 mg/dL <150 Serum or plasma cholesterol measurement (mass/volume) 130 mg/dL < 200 Serum or plasma cholesterol in HDL measurement (mass/v olume) 37 mg/dL 40-60 Cholesterol in LDL [mass/volume] in serum or plasma by direct assay 86 mg/dL 1-129 Serum or plasma cholesterol in VLDL measurement (mass/ volume) 14 mg/dL 5-40 Serum or plasma C reactive protein measu rement (mass/volume) - 03/09/18 05:11 Serum or plasma C reactive protein measurement (mass/v olume) 0.48 mg/dL 0.00-0.50 Erythrocyte sedimentation rate by chema gren method - 03/09/18 05:11 Erythrocyte sedimentation rate by westergren method 36 mm 0- 30 Hemoglobin A1c - 03/10/18 05:11 Blood hemoglobin A1C measurement (mass/volume) 6.0 % 4.0-5.6 MEAN BLOOD GLUCOSE 126 % <=126 Complete blood count (CBC) with automate d white blood cell (WBC) differential - 03/10/18 05:39 Blood leukocytes automated count (number/volume) 4.7 10*3/uL 4.3-11.0 Blood erythrocytes automated count (number/volume) 3.84 10*6/uL 4.35-5.85 Venous blood hemoglobin measurement (mass/volume) 11.6 g/dL 11.5-16.0 Blood hematocrit (volume fraction) 34 % 35-52 Automated erythrocyte mean corpuscular volume 90 [ foz_us] 80-99 Automated erythrocyte mean corpuscular h emoglobin (mass per erythrocyte) 30 pg 25-34 Automated erythrocyte mean corpuscular h emoglobin concentration measurement (mass/volume) 34 g/dL 32-36 Automated erythrocyte distribution width ratio 14. 5 % 10.0- 14.5 Automated blood platelet count (count/volume) 102 10*3/uL [...] 10*3 1.0-4.0 Blood monocytes automated count (number/volume) 0. 5 10*3 0.0-1.0 Automated eosinophil count 0.4 10*3/uL 0 .0-0.3 Automated blood basophil count (count/volume) 0.0 10*3/uL 0.0-0.1 Comprehensive metabolic panel - 03/10/18 05:39 Serum or plasma sodium measurement (moles/volume) 141 mmol/L 135-145 Serum or plasma potassium measurement (moles/volume) 4.4 mmol/L 3.6-5.0 Serum or plasma chloride measurement (moles/volume) 112 mmol/L 98-107 Carbon dioxide 22 mmol/L 21-32 Serum or plasma anion gap determination (moles/volume) 7 mmol/L 5-14 Serum or plasma urea nitrogen measurement (mass/volume ) 12 mg/dL 7-18 Serum or plasma creatinine measurement (mass/volume) 0.66 mg/dL 0.60-1.30 Serum or plasma urea nitrogen/creatinine mass ratio 18 NRG Serum or plasma creatinine measurement w ith calculation of estimated glomerular filtration rate > NRG Serum or plasma glucose measurement (mass/volume) 102 mg/dL 70-105 Serum or plasma calcium measurement (mass/volume) 8.5 mg/dL 8.5-10.1 Serum or plasma total bilirubin measurement (mass/volu me) 1.4 mg/dL 0.1-1.0 Serum or plasma alkaline phosphatase davion surement (enzymatic activity/volume) 66 U/L 40-136 Serum or plasma aspartate aminotransfera se measurement (enzymatic activity/volume) 16 U/L 5-34 Serum or plasma alanine aminotransferase measurement (enzymatic activity/volume) 8 U/L 0-55 Serum or plasma protein measurement (mass/volume) 5.7 g/dL 6.4-8.2 Serum or plasma albumin measurement (mass/volume) 2.8 g/dL 3.2-4.5 Lipid 1996 panel - 03/10/18 05:39 Serum or plasma triglyceride measurement (mass/volume) 57 mg/dL <150 Serum or plasma cholesterol measurement (mass/volume) 134 mg/dL < 200 Serum or plasma cholesterol in HDL measurement (mass/v olume) 38 mg/dL 40-60 Cholesterol in LDL [mass/volume] in serum or plasma by direct assay 93 mg/dL 1-129 Serum or plasma cholesterol in VLDL measurement (mass/ volume) 11 mg/dL 5-40 Automated blood complete blood count (he mogram) panel - 03/11/18 09:04 Blood leukocytes automated count (number/volume) 5.3 10*3/uL 4.3-11.0 Blood erythrocytes automated count (number/volume) 4.03 10*6/uL 4.35-5.85 Venous blood hemoglobin measurement (mass/volume) 12.0 g/dL 11.5-16.0 Blood hematocrit (volume fraction) 36 % 35-52 Automated erythrocyte mean corpuscular volume 89 [ foz_us] 80-99 Automated erythrocyte mean corpuscular h emoglobin (mass per erythrocyte) 30 pg 25-34 Automated erythrocyte mean corpuscular h emoglobin concentration measurement (mass/volume) 33 g/dL 32-36 Automated erythrocyte distribution width ratio 14. 5 % 10.0- 14.5 Automated blood platelet count (count/volume) 118 10*3/uL 130-400 Automated blood platelet mean volume measurement 10.5 [foz_us] 7.4-10.4 Whole blood basic metabolic panel - 02/28 10/18 09:04 Serum or plasma sodium measurement (moles/volume) 140 mmol/L 135-145 Serum or plasma potassium measurement (moles/volume) 4.1 mmol/L 3.6-5.0 Serum or plasma chloride measurement (moles/volume) 109 mmol/L 98-107 Carbon dioxide 23 mmol/L 21-32 Serum or plasma anion gap determination (moles/volume) 8 mmol/L 5-14 Serum or plasma urea nitrogen measurement (mass/volume ) 15 mg/dL 7-18 Serum or plasma creatinine measurement (mass/volume) 0.81 mg/dL 0.60-1.30 Serum or plasma urea nitrogen/creatinine mass ratio 19 NRG Serum or plasma creatinine measurement w ith calculation of estimated glomerular filtration rate > NRG Serum or plasma glucose measurement (mass/volume) 172 mg/dL 70-105 Serum or plasma calcium measurement (mass/volume) 9.0 mg/dL 8.5-10.1 Capillary blood glucose measurement by g lucometer (mass/volume) - 03/11/18 10:55 Capillary blood glucose measurement by glucometer (mas s/volume) 204 mg/dL 70-110 Capillary blood glucose measurement by g lucometer (mass/volume) - 03/11/18 16:32 Capillary blood glucose measurement by glucometer (mas s/volume) 143 mg/dL 70-110 Capillary blood glucose measurement by g lucometer (mass/volume) - 03/12/18 05:19 Capillary blood glucose measurement by glucometer (mas s/volume) 113 mg/dL 70-110 Automated blood complete blood count (he mogram) panel - 03/12/18 05:20 Blood leukocytes automated count (number/volume) 4.6 10*3/uL 4.3-11.0 Blood erythrocytes automated count (number/volume) 3.80 10*6/uL 4.35-5.85 Venous blood hemoglobin measurement (mass/volume) 11.2 g/dL 11.5-16.0 Blood hematocrit (volume fraction) 34 % 35-52 Automated erythrocyte mean corpuscular volume 89 [ foz_us] 80-99 Automated erythrocyte mean corpuscular h emoglobin (mass per erythrocyte) 29 pg 25-34 Automated erythrocyte mean corpuscular h emoglobin concentration measurement (mass/volume) 33 g/dL 32-36 Automated erythrocyte distribution width ratio 14. 8 % 10.0- 14.5 Automated blood platelet count (count/volume) 91 1 0*3/uL 130-400 Automated blood platelet mean volume measurement 10.3 [foz_us] 7.4-10.4 Capillary blood glucose measurement by g lucometer (mass/volume) - 03/12/18 16:30 Capillary blood glucose measurement by glucometer (mas s/volume) 152 mg/dL 70-110 Capillary blood glucose measurement by g lucometer (mass/volume) - 03/12/18 21:31 Capillary blood glucose measurement by glucometer (mas s/volume) 148 mg/dL 70-110 Capillary blood glucose measurement by g lucometer (mass/volume) - 03/13/18 06:25 Capillary blood glucose measurement by glucometer (mas s/volume) 104 mg/dL 70-110 Capillary blood glucose measurement by g lucometer (mass/volume) - 03/13/18 16:04 Capillary blood glucose measurement by glucometer (mas s/volume) 159 mg/dL 70-110 Capillary blood glucose measurement by g lucometer (mass/volume) - 03/13/18 20:41 Capillary blood glucose measurement by glucometer (mas s/volume) 193 mg/dL 70-110 Capillary blood glucose measurement by g lucometer (mass/volume) - 03/14/18 05:45 Capillary blood glucose measurement by glucometer (mas s/volume) 100 mg/dL 70-110 Capillary blood glucose measurement by g lucometer (mass/volume) - 03/14/18 16:24 Capillary blood glucose measurement by glucometer (mas s/volume) 145 mg/dL 70-110 Capillary blood glucose measurement by g lucometer (mass/volume) - 03/15/18 06:09 Capillary blood glucose measurement by glucometer (mas s/volume) 112 mg/dL 70-110 Whole blood basic metabolic panel - 02/28 02/15 12:18 Serum or plasma sodium measurement (moles/volume) 139 mmol/L 135-145 Serum or plasma potassium measurement (moles/volume) 5.0 mmol/L 3.6-5.0 Serum or plasma chloride measurement (moles/volume) 104 mmol/L 98-107 Carbon dioxide 24 mmol/L 21-32 Serum or plasma anion gap determination (moles/volume) 11 mmol/L 5-14 Serum or plasma urea nitrogen measurement (mass/volume ) 21 mg/dL 7-18 Serum or plasma creatinine measurement (mass/volume) 0.81 mg/dL 0.60-1.30 Serum or plasma urea nitrogen/creatinine mass ratio 26 NRG Serum or plasma creatinine measurement w ith calculation of estimated glomerular filtration rate > NRG Serum or plasma glucose measurement (mass/volume) 187 mg/dL 70-105 Serum or plasma calcium measurement (mass/volume) 9.1 mg/dL 8.5-10.1 Capillary blood glucose measurement by g lucometer (mass/volume) - 03/15/18 16:16 Capillary blood glucose measurement by glucometer (mas s/volume) 164 mg/dL 70-110 Capillary blood glucose measurement by g lucometer (mass/volume) - 03/16/18 04:15 Capillary blood glucose measurement by glucometer (mas s/volume) 105 mg/dL 70-110 Capillary blood glucose measurement by g lucometer (mass/volume) - 03/16/18 15:55 Capillary blood glucose measurement by glucometer (mas s/volume) 133 mg/dL 70-110 Capillary blood glucose measurement by g lucometer (mass/volume) - 03/17/18 05:35 Capillary blood glucose measurement by glucometer (mas s/volume) 119 mg/dL 70-110 Comprehensive metabolic panel - 03/17/18 07:49 Serum or plasma sodium measurement (moles/volume) 141 mmol/L 135-145 Serum or plasma potassium measurement (moles/volume) 4.7 mmol/L 3.6-5.0 Serum or plasma chloride measurement (moles/volume) 105 mmol/L 98-107 Carbon dioxide 28 mmol/L 21-32 Serum or plasma anion gap determination (moles/volume) 8 mmol/L 5-14 Serum or plasma urea nitrogen measurement (mass/volume ) 31 mg/dL 7-18 Serum or plasma creatinine measurement (mass/volume) 1.32 mg/dL 0.60-1.30 Serum or plasma urea nitrogen/creatinine mass ratio 23 NRG Serum or plasma creatinine measurement w ith calculation of estimated glomerular filtration rate 39 NRG Serum or plasma glucose measurement (mass/volume) 135 mg/dL 70-105 Serum or plasma calcium measurement (mass/volume) 8.7 mg/dL 8.5-10.1 Serum or plasma total bilirubin measurement (mass/volu me) 1.1 mg/dL 0.1-1.0 Serum or plasma alkaline phosphatase davion surement (enzymatic activity/volume) 64 U/L 40-136 Serum or plasma aspartate aminotransfera se measurement (enzymatic activity/volume) 17 U/L 5-34 Serum or plasma alanine aminotransferase measurement (enzymatic activity/volume) 10 U/L 0-55 Serum or plasma protein measurement (mass/volume) 5.6 g/dL 6.4-8.2 Serum or plasma albumin measurement (mass/volume) 2.8 g/dL 3.2-4.5 Capillary blood glucose measurement by g lucometer (mass/volume) - 03/17/18 07:53 Capillary blood glucose measurement by glucometer (mas s/volume) 119 mg/dL 70-110 Complete blood count (CBC) with automate d white blood cell (WBC) differential - 03/17/18 09:05 Blood leukocytes automated count (number/volume) 8.1 10*3/uL 4.3-11.0 Blood erythrocytes automated count (number/volume) 4.28 10*6/uL 4.35-5.85 Venous blood hemoglobin measurement (mass/volume) 12.9 g/dL 11.5-16.0 Blood hematocrit (volume fraction) 38 % 35-52 Automated erythrocyte mean corpuscular volume 89 [ foz_us] 80-99 Automated erythrocyte mean corpuscular h emoglobin (mass per erythrocyte) 30 pg 25-34 Automated erythrocyte mean corpuscular h emoglobin concentration measurement (mass/volume) 34 g/dL 32-36 Automated erythrocyte distribution width ratio 15. 0 % 10.0- 14.5 Automated blood platelet count (count/volume) 132 10*3/uL [...] 10*3 1.0-4.0 Blood monocytes automated count (number/volume) 1. 0 10*3 0.0-1.0 Automated eosinophil count 0.2 10*3/uL 0 .0-0.3 Automated blood basophil count (count/volume) 0.0 10*3/uL 0.0-0.1 Capillary blood glucose measurement by g lucometer (mass/volume) - 03/17/18 15:46 Capillary blood glucose measurement by glucometer (mas s/volume) 149 mg/dL 70-110 Capillary blood glucose measurement by g lucometer (mass/volume) - 03/18/18 05:06 Capillary blood glucose measurement by glucometer (mas s/volume) 93 mg/dL 70-110 Blood CBC with ordered manual differenti al panel - 03/18/18 05:20 Blood leukocytes automated count (number/volume) 5.2 10*3/uL 4.3-11.0 Blood erythrocytes automated count (number/volume) 3.75 10*6/uL 4.35-5.85 Venous blood hemoglobin measurement (mass/volume) 11.0 g/dL 11.5-16.0 Blood hematocrit (volume fraction) 34 % 35-52 Automated erythrocyte mean corpuscular volume 91 [ foz_us] 80-99 Automated erythrocyte mean corpuscular h emoglobin (mass per erythrocyte) 29 pg 25-34 Automated erythrocyte mean corpuscular h emoglobin concentration measurement (mass/volume) 32 g/dL 32-36 Automated erythrocyte distribution width ratio 15. 2 % 10.0- 14.5 Automated blood platelet count (count/volume) 114 10*3/uL [...] 10*3 1.0-4.0 Blood monocytes automated count (number/volume) 0. 5 10*3 0.0-1.0 Automated eosinophil count 0.3 10*3/uL 0 .0-0.3 Automated blood basophil count (count/volume) 0.0 10*3/uL 0.0-0.1 Manual blood segmented neutrophils/100 leukocytes 67 % NRG Manual blood lymphocytes/100 leukocytes 26 % NRG Manual eosinophils/100 leukocytes in nose 2 % NRG Manual blood basophils/100 leukocytes 1 % NRG Blood poikilocytosis detection by light microscopy SLIGHT NRG Blood rouleaux detection by light microscopy SLIGH T NRG Blood spherocytes detection by light microscopy SL IGHT NRG Comprehensive metabolic panel - 03/18/18 05:20 Serum or plasma sodium measurement (moles/volume) 144 mmol/L 135-145 Serum or plasma potassium measurement (moles/volume) 4.0 mmol/L 3.6-5.0 Serum or plasma chloride measurement (moles/volume) 110 mmol/L 98-107 Carbon dioxide 26 mmol/L 21-32 Serum or plasma anion gap determination (moles/volume) 8 mmol/L 5-14 Serum or plasma urea nitrogen measurement (mass/volume ) 36 mg/dL 7-18 Serum or plasma creatinine measurement (mass/volume) 1.34 mg/dL 0.60-1.30 Serum or plasma urea nitrogen/creatinine mass ratio 27 NRG Serum or plasma creatinine measurement w ith calculation of estimated glomerular filtration rate 38 NRG Serum or plasma glucose measurement (mass/volume) 104 mg/dL 70-105 Serum or plasma calcium measurement (mass/volume) 8.3 mg/dL 8.5-10.1 Serum or plasma total bilirubin measurement (mass/volu me) 1.2 mg/dL 0.1-1.0 Serum or plasma alkaline phosphatase davion surement (enzymatic activity/volume) 64 U/L 40-136 Serum or plasma aspartate aminotransfera se measurement (enzymatic activity/volume) 17 U/L 5-34 Serum or plasma alanine aminotransferase measurement (enzymatic activity/volume) 11 U/L 0-55 Serum or plasma protein measurement (mass/volume) 5.4 g/dL 6.4-8.2 Serum or plasma albumin measurement (mass/volume) 2.8 g/dL 3.2-4.5 Capillary blood glucose measurement by g lucometer (mass/volume) - 03/18/18 15:51 Capillary blood glucose measurement by glucometer (mas s/volume) 205 mg/dL 70-110 Capillary blood glucose measurement by g lucometer (mass/volume) - 03/19/18 06:06 Capillary blood glucose measurement by glucometer (mas s/volume) 108 mg/dL 70-110 Complete blood count (CBC) with automate d white blood cell (WBC) differential - 03/19/18 06:38 Blood leukocytes automated count (number/volume) 4.1 10*3/uL 4.3-11.0 Blood erythrocytes automated count (number/volume) 3.71 10*6/uL 4.35-5.85 Venous blood hemoglobin measurement (mass/volume) 11.1 g/dL 11.5-16.0 Blood hematocrit (volume fraction) 33 % 35-52 Automated erythrocyte mean corpuscular volume 90 [ foz_us] 80-99 Automated erythrocyte mean corpuscular h emoglobin (mass per erythrocyte) 30 pg 25-34 Automated erythrocyte mean corpuscular h emoglobin concentration measurement (mass/volume) 33 g/dL 32-36 Automated erythrocyte distribution width ratio 14. 7 % 10.0- 14.5 Automated blood platelet count (count/volume) 109 10*3/uL [...] 10*3 1.0-4.0 Blood monocytes automated count (number/volume) 0. 4 10*3 0.0-1.0 Automated eosinophil count 0.3 10*3/uL 0 .0-0.3 Automated blood basophil count (count/volume) 0.0 10*3/uL 0.0-0.1 Whole blood basic metabolic panel - 03/01 06:38 Serum or plasma sodium measurement (moles/volume) 143 mmol/L 135-145 Serum or plasma potassium measurement (moles/volume) 4.0 mmol/L 3.6-5.0 Serum or plasma chloride measurement (moles/volume) 110 mmol/L 98-107 Carbon dioxide 27 mmol/L 21-32 Serum or plasma anion gap determination (moles/volume) 6 mmol/L 5-14 Serum or plasma urea nitrogen measurement (mass/volume ) 25 mg/dL 7-18 Serum or plasma creatinine measurement (mass/volume) 0.87 mg/dL 0.60-1.30 Serum or plasma urea nitrogen/creatinine mass ratio 29 NRG Serum or plasma creatinine measurement w ith calculation of estimated glomerular filtration rate > NRG Serum or plasma glucose measurement (mass/volume) 117 mg/dL 70-105 Serum or plasma calcium measurement (mass/volume) 8.3 mg/dL 8.5-10.1 Capillary blood glucose measurement by g lucometer (mass/volume) - 03/19/18 16:24 Capillary blood glucose measurement by glucometer (mas s/volume) 151 mg/dL 70-110 Complete blood count (CBC) with automate d white blood cell (WBC) differential - 03/20/18 05:22 Blood leukocytes automated count (number/volume) 3.8 10*3/uL 4.3-11.0 Blood erythrocytes automated count (number/volume) 3.35 10*6/uL 4.35-5.85 Venous blood hemoglobin measurement (mass/volume) 10.1 g/dL 11.5-16.0 Blood hematocrit (volume fraction) 30 % 35-52 Automated erythrocyte mean corpuscular volume 90 [ foz_us] 80-99 Automated erythrocyte mean corpuscular h emoglobin (mass per erythrocyte) 30 pg 25-34 Automated erythrocyte mean corpuscular h emoglobin concentration measurement (mass/volume) 33 g/dL 32-36 Automated erythrocyte distribution width ratio 14. 4 % 10.0- 14.5 Automated blood platelet count (count/volume) 92 1 0*3/uL 130-400 Automated blood platelet mean volume measurement [...] 10*3 1.0-4.0 Blood monocytes automated count (number/volume) 0. 4 10*3 0.0-1.0 Automated eosinophil count 0.4 10*3/uL 0 .0-0.3 Automated blood basophil count (count/volume) 0.0 10*3/uL 0.0-0.1 Capillary blood glucose measurement by g lucometer (mass/volume) - 03/20/18 05:45 Capillary blood glucose measurement by glucometer (mas s/volume) 114 mg/dL 70-110 Capillary blood glucose measurement by g lucometer (mass/volume) - 03/20/18 15:50 Capillary blood glucose measurement by glucometer (mas s/volume) 138 mg/dL 70-110 Capillary blood glucose measurement by g lucometer (mass/volume) - 03/21/18 05:50 Capillary blood glucose measurement by glucometer (mas s/volume) 149 mg/dL 70-110 Capillary blood glucose measurement by g lucometer (mass/volume) - 03/21/18 16:12 Capillary blood glucose measurement by glucometer (mas s/volume) 161 mg/dL 70-110 Capillary blood glucose measurement by g lucometer (mass/volume) - 03/22/18 05:10 Capillary blood glucose measurement by glucometer (mas s/volume) 130 mg/dL 70-110 Complete blood count (CBC) with automate d white blood cell (WBC) differential - 03/22/18 09:18 Blood leukocytes automated count (number/volume) 5.5 10*3/uL 4.3-11.0 Blood erythrocytes automated count (number/volume) 3.69 10*6/uL 4.35-5.85 Venous blood hemoglobin measurement (mass/volume) 11.1 g/dL 11.5-16.0 Blood hematocrit (volume fraction) 33 % 35-52 Automated erythrocyte mean corpuscular volume 90 [ foz_us] 80-99 Automated erythrocyte mean corpuscular h emoglobin (mass per erythrocyte) 30 pg 25-34 Automated erythrocyte mean corpuscular h emoglobin concentration measurement (mass/volume) 34 g/dL 32-36 Automated erythrocyte distribution width ratio 14. 7 % 10.0- 14.5 Automated blood platelet count (count/volume) 107 10*3/uL [...] 10*3 1.0-4.0 Blood monocytes automated count (number/volume) 0. 5 10*3 0.0-1.0 Automated eosinophil count 0.4 10*3/uL 0 .0-0.3 Automated blood basophil count (count/volume) 0.0 10*3/uL 0.0-0.1 Capillary blood glucose measurement by g lucometer (mass/volume) - 03/22/18 15:45 Capillary blood glucose measurement by glucometer (mas s/volume) 193 mg/dL 70-110 Capillary blood glucose measurement by g lucometer (mass/volume) - 03/23/18 05:36 Capillary blood glucose measurement by glucometer (mas s/volume) 130 mg/dL 70-110 Automated blood complete blood count (he mogram) panel - 03/23/18 07:13 Blood leukocytes automated count (number/volume) 5.7 10*3/uL 4.3-11.0 Blood erythrocytes automated count (number/volume) 3.89 10*6/uL 4.35-5.85 Venous blood hemoglobin measurement (mass/volume) 11.7 g/dL 11.5-16.0 Blood hematocrit (volume fraction) 35 % 35-52 Automated erythrocyte mean corpuscular volume 90 [ foz_us] 80-99 Automated erythrocyte mean corpuscular h emoglobin (mass per erythrocyte) 30 pg 25-34 Automated erythrocyte mean corpuscular h emoglobin concentration measurement (mass/volume) 34 g/dL 32-36 Automated erythrocyte distribution width ratio 14. 8 % 10.0- 14.5 Automated blood platelet count (count/volume) 108 10*3/uL 130-400 Automated blood platelet mean volume measurement 10.9 [foz_us] 7.4-10.4 Whole blood basic metabolic panel - 03/01 12/16 07:13 Serum or plasma sodium measurement (moles/volume) 142 mmol/L 135-145 Serum or plasma potassium measurement (moles/volume) 4.3 mmol/L 3.6-5.0 Serum or plasma chloride measurement (moles/volume) 110 mmol/L 98-107 Carbon dioxide 23 mmol/L 21-32 Serum or plasma anion gap determination (moles/volume) 9 mmol/L 5-14 Serum or plasma urea nitrogen measurement (mass/volume ) 18 mg/dL 7-18 Serum or plasma creatinine measurement (mass/volume) 0.82 mg/dL 0.60-1.30 Serum or plasma urea nitrogen/creatinine mass ratio 22 NRG Serum or plasma creatinine measurement w ith calculation of estimated glomerular filtration rate > NRG Serum or plasma glucose measurement (mass/volume) 139 mg/dL 70-105 Serum or plasma calcium measurement (mass/volume) 9.0 mg/dL 8.5-10.1 Capillary blood glucose measurement by g lucometer (mass/volume) - 03/23/18 16:20 Capillary blood glucose measurement by glucometer (mas s/volume) 179 mg/dL 70-110 Capillary blood glucose measurement by g lucometer (mass/volume) - 03/24/18 05:33 Capillary blood glucose measurement by glucometer (mas s/volume) 114 mg/dL 70-110 Blood CBC with ordered manual differenti al panel - 03/24/18 05:33 Blood leukocytes automated count (number/volume) 5.2 10*3/uL 4.3-11.0 Blood erythrocytes automated count (number/volume) 3.43 10*6/uL 4.35-5.85 Venous blood hemoglobin measurement (mass/volume) 10.1 g/dL 11.5-16.0 Blood hematocrit (volume fraction) 31 % 35-52 Automated erythrocyte mean corpuscular volume 90 [ foz_us] 80-99 Automated erythrocyte mean corpuscular h emoglobin (mass per erythrocyte) 29 pg 25-34 Automated erythrocyte mean corpuscular h emoglobin concentration measurement (mass/volume) 33 g/dL 32-36 Automated erythrocyte distribution width ratio 14. 8 % 10.0- 14.5 Automated blood platelet count (count/volume) 106 10*3/uL 130-400 Automated blood platelet mean volume measurement 10.6 [foz_us] 7.4-10.4 Automated blood neutrophils/100 leukocytes 61 % 42-75 Automated blood lymphocytes/100 leukocytes 20 % 12-44 Blood monocytes/100 leukocytes 5 % NR Automated blood eosinophils/100 leukocytes 8 % 0-10 Automated blood basophils/100 leukocytes 0 % 0-10 Blood neutrophils automated count (number/volume) 3.2 10*3 1.8-7.8 Blood lymphocytes automated count (number/volume) 1.1 10*3 1.0-4.0 Blood monocytes automated count (number/volume) 0. 5 10*3 0.0-1.0 Automated eosinophil count 0.4 10*3/uL 0 .0-0.3 Automated blood basophil count (count/volume) 0.0 10*3/uL 0.0-0.1 Manual blood segmented neutrophils/100 leukocytes 71 % NR Manual blood lymphocytes/100 leukocytes 19 % NR Manual eosinophils/100 leukocytes in nose 5 % [facility] Blood erythrocyte morphology finding identification NORMAL [facility] Comprehensive metabolic panel - 03/24/18 05:33 Serum or plasma sodium measurement (moles/volume) 141 mmol/L 135-145 Serum or plasma potassium measurement (moles/volume) 4.1 mmol/L 3.6-5.0 Serum or plasma chloride measurement (moles/volume) 110 mmol/L 98-107 Carbon dioxide 25 mmol/L 21-32 Serum or plasma anion gap determination (moles/volume) 6 mmol/L 5-14 Serum or plasma urea nitrogen measurement (mass/volume ) 17 mg/dL 7-18 Serum or plasma creatinine measurement (mass/volume) 0.73 mg/dL 0.60-1.30 Serum or plasma urea nitrogen/creatinine mass ratio 23 NRG Serum or plasma creatinine measurement w ith calculation of estimated glomerular filtration rate > NRG Serum or plasma glucose measurement (mass/volume) 109 mg/dL 70-105 Serum or plasma calcium measurement (mass/volume) 8.5 mg/dL 8.5-10.1 Serum or plasma total bilirubin measurement (mass/volu me) 1.0 mg/dL 0.1-1.0 Serum or plasma alkaline phosphatase davion surement (enzymatic activity/volume) 58 U/L 40-136 Serum or plasma aspartate aminotransfera se measurement (enzymatic activity/volume) 15 U/L 5-34 Serum or plasma alanine aminotransferase measurement (enzymatic activity/volume) 9 U/L 0-55 Serum or plasma protein measurement (mass/volume) 5.2 g/dL 6.4-8.2 Serum or plasma albumin measurement (mass/volume) 2.7 g/dL 3.2-4.5 Lactate dehydrogenase 1 [enzymatic activ ity/volume] in serum or plasma - 03/24/18 05:33 Lactate dehydrogenase 1 [enzymatic activ ity/volume] in serum or plasma 188 U/L 125-220 PT panel in platelet poor plasma by coag ulation assay - 03/24/18 05:33 Prothrombin time (PT) in platelet poor plasma by coagu lation assay 15.4 s 12.2-14.7 INR in platelet poor plasma or blood by coagulation as say 1.2 0.8-1.4 Fibrinogen measurement in platelet poor plasma by coagulation assay (mass/volume) - 03/24/18 05:33 Fibrinogen measurement in platelet poor plasma by coagulation assay (mass/volume) 326 mg/dL 221-496 Fibrin D-dimer FEU measurement in platel et poor plasma (mass/volume) - 03/24/18 05:33 Fibrin D-dimer FEU measurement in platelet poor plasma (mass/volume) 13.04 ug/mL 0.00-0.49 Complete blood count (CBC) with automate d white blood cell (WBC) differential - 03/26/18 08:17 Blood leukocytes automated count (number/volume) 5.7 10*3/uL 4.3-11.0 Blood erythrocytes automated count (number/volume) 3.74 10*6/uL 4.35-5.85 Venous blood hemoglobin measurement (mass/volume) 11.0 g/dL 11.5-16.0 Blood hematocrit (volume fraction) 33 % 35-52 Automated erythrocyte mean corpuscular volume 88 [ foz_us] 80-99 Automated erythrocyte mean corpuscular h emoglobin (mass per erythrocyte) 29 pg 25-34 Automated erythrocyte mean corpuscular h emoglobin concentration measurement (mass/volume) 33 g/dL 32-36 Automated erythrocyte distribution width ratio 14. 9 % 10.0- 14.5 Automated blood platelet count (count/volume) 34 1 0*3/uL 130-400 Automated blood platelet mean volume measurement 10.6 [foz_us] 7.4-10.4 Automated blood neutrophils/100 leukocytes 81 % 42-75 Automated blood lymphocytes/100 leukocytes 12 % 12-44 Blood monocytes/100 leukocytes 5 % 0-12 Automated blood eosinophils/100 leukocytes 2 % 0-10 Automated blood basophils/100 leukocytes 0 % 0-10 Blood neutrophils automated count (number/volume) 4.6 10*3 1.8-7.8 Blood lymphocytes automated count (number/volume) 0.7 10*3 1.0-4.0 Blood monocytes automated count (number/volume) 0. 3 10*3 0.0-1.0 Automated eosinophil count 0.1 10*3/uL 0 .0-0.3 Automated blood basophil count (count/volume) 0.0 10*3/uL 0.0-0.1 Comprehensive metabolic panel - 03/26/18 08:17 Serum or plasma sodium measurement (moles/volume) 141 mmol/L 135-145 Serum or plasma potassium measurement (moles/volume) 4.3 mmol/L 3.6-5.0 Serum or plasma chloride measurement (moles/volume) 110 mmol/L 98-107 Carbon dioxide 25 mmol/L 21-32 Serum or plasma anion gap determination (moles/volume) 6 mmol/L 5-14 Serum or plasma urea nitrogen measurement (mass/volume ) 17 mg/dL 7-18 Serum or plasma creatinine measurement (mass/volume) 0.76 mg/dL 0.60-1.30 Serum or plasma urea nitrogen/creatinine mass ratio 22 NRG Serum or plasma creatinine measurement w ith calculation of estimated glomerular filtration rate > NRG Serum or plasma glucose measurement (mass/volume) 143 mg/dL 70-105 Serum or plasma calcium measurement (mass/volume) 8.7 mg/dL 8.5-10.1 Serum or plasma total bilirubin measurement (mass/volu me) 1.1 mg/dL 0.1-1.0 Serum or plasma alkaline phosphatase davion surement (enzymatic activity/volume) 69 U/L 40-136 Serum or plasma aspartate aminotransfera se measurement (enzymatic activity/volume) 15 U/L 5-34 Serum or plasma alanine aminotransferase measurement (enzymatic activity/volume) 11 U/L 0-55 Serum or plasma protein measurement (mass/volume) 5.4 g/dL 6.4-8.2 Serum or plasma albumin measurement (mass/volume) 2.9 g/dL 3.2-4.5 Magnesium - 03/26/18 08:17 Magnesium 1.2 mg/dL 1.8-2.4 Serum or plasma lithium measurement (mol es/volume) - 03/26/18 08:17 BNP level 68.1 pg/mL <100.0 Complete urinalysis with reflex to cultu re - 03/26/18 08:51 Urine color determination YELLOW NRG Urine clarity determination SLIGHTLY CLOUDY NRG Urine pH measurement by test strip 5 5-9 Specific gravity of urine by test strip 1.015 1.016-1.022 Urine protein assay by test strip, semi-quantitative 1+ NEGATIVE Urine glucose detection by automated test strip NE GATIVE NEGATIVE Erythrocytes detection in urine sediment by light micr oscopy NEGATIVE NEGATIVE Urine ketones detection by automated test strip NE GATIVE NEGATIVE Urine nitrite detection by test strip NEGATIVE NEGATIVE Urine total bilirubin detection by test strip NEGA TIVE NEGATIVE Urine urobilinogen measurement by automated test strip (mass/volume) 1 mg/dL NORMAL Urine leukocyte esterase detection by dipstick 1+ NEGATIVE Automated urine sediment erythrocyte cou nt by microscopy (number/high power field) NONE NRG Automated urine sediment leukocyte count by microscopy (number/high power field) RARE NRG Bacteria detection in urine sediment by light microsco py NEGATIVE NRG Squamous epithelial cells detection in u rine sediment by light microscopy 2-5 NRG Crystals detection in urine sediment by light microsco py NONE NRG Casts detection in urine sediment by light microscopy PRESENT NRG Mucus detection in urine sediment by light microscopy NEGATIVE NRG Complete urinalysis with reflex to culture NO NRG Hyaline casts detection in urine sediment by light jasiel roscopy 0-2 NRG Complete blood count (CBC) with automate d white blood cell (WBC) differential - 03/26/18 17:21 Blood leukocytes automated count (number/volume) 5.3 10*3/uL 4.3-11.0 Blood erythrocytes automated count (number/volume) 3.62 10*6/uL 4.35-5.85 Venous blood hemoglobin measurement (mass/volume) 10.6 g/dL 11.5-16.0 Blood hematocrit (volume fraction) 32 % 35-52 Automated erythrocyte mean corpuscular volume 88 [ foz_us] 80-99 Automated erythrocyte mean corpuscular h emoglobin (mass per erythrocyte) 29 pg 25-34 Automated erythrocyte mean corpuscular h emoglobin concentration measurement (mass/volume) 33 g/dL 32-36 Automated erythrocyte distribution width ratio 14. 8 % 10.0- 14.5 Automated blood platelet count (count/volume) 108 10*3/uL 130-400 Automated blood platelet mean volume measurement 10.7 [foz_us] 7.4-10.4 Automated blood neutrophils/100 leukocytes 73 % 42-75 Automated blood lymphocytes/100 leukocytes 14 % 12-44 Blood monocytes/100 leukocytes 10 % 0-12 Automated blood eosinophils/100 leukocytes 3 % 0-10 Automated blood basophils/100 leukocytes 0 % 0-10 Blood neutrophils automated count (number/volume) 3.9 10*3 1.8-7.8 Blood lymphocytes automated count (number/volume) 0.8 10*3 1.0-4.0 Blood monocytes automated count (number/volume) 0. 5 10*3 0.0-1.0 Automated eosinophil count 0.2 10*3/uL 0 .0-0.3 Automated blood basophil count (count/volume) 0.0 10*3/uL 0.0-0.1 Capillary blood glucose measurement by g lucometer (mass/volume) - 03/27/18 07:21 Capillary blood glucose measurement by glucometer (mas s/volume) 143 mg/dL 70-110 Methicillin resistant Staphylococcus aur eus (MRSA) screening culture - 03/28/18 17:36 Methicillin resistant Staphylococcus aureus (MRSA) scr eening culture NEG NRG Automated blood complete blood count (he mogram) panel - 03/29/18 07:55 Blood leukocytes automated count (number/volume) 3.3 10*3/uL 4.3-11.0 Blood erythrocytes automated count (number/volume) 3.25 10*6/uL 4.35-5.85 Venous blood hemoglobin measurement (mass/volume) 10.0 g/dL 11.5-16.0 Blood hematocrit (volume fraction) 29 % 35-52 Automated erythrocyte mean corpuscular volume 91 [ foz_us] 80-99 Automated erythrocyte mean corpuscular h emoglobin (mass per erythrocyte) 31 pg 25-34 Automated erythrocyte mean corpuscular h emoglobin concentration measurement (mass/volume) 34 g/dL 32-36 Automated erythrocyte distribution width ratio 14. 7 % 10.0- 14.5 Automated blood platelet count (count/volume) 74 1 0*3/uL 130-400 Automated blood platelet mean volume measurement 10.8 [foz_us] 7.4-10.4 PT panel in platelet poor plasma by coag ulation assay - 03/29/18 08:07 Prothrombin time (PT) in platelet poor plasma by coagu lation assay 15.6 s 12.2-14.7 INR in platelet poor plasma or blood by coagulation as say 1.2 0.8-1.4 Activated partial thromboplastin time (a PTT) in platelet poor plasma bycoagulation assay - 03/29/18 08:07 Activated partial thromboplastin time (a PTT) in platelet poor plasma bycoagulation assay 48 s 24-35 Automated blood complete blood count (he mogram) panel - 03/29/18 17:55 Blood leukocytes automated count (number/volume) 3.3 10*3/uL 4.3-11.0 Blood erythrocytes automated count (number/volume) 3.28 10*6/uL 4.35-5.85 Venous blood hemoglobin measurement (mass/volume) 10.1 g/dL 11.5-16.0 Blood hematocrit (volume fraction) 30 % 35-52 Automated erythrocyte mean corpuscular volume 90 [ foz_us] 80-99 Automated erythrocyte mean corpuscular h emoglobin (mass per erythrocyte) 31 pg 25-34 Automated erythrocyte mean corpuscular h emoglobin concentration measurement (mass/volume) 34 g/dL 32-36 Automated erythrocyte distribution width ratio 14. 8 % 10.0- 14.5 Automated blood platelet count (count/volume) 109 10*3/uL 130-400 Automated blood platelet mean volume measurement 10.1 [foz_us] 7.4-10.4 Automated blood complete blood count ( [employer]) panel - 03/30/18 06:32 Blood leukocytes automated count (number/volume) 3.4 10*3/uL 4.3-11.0 Blood erythrocytes automated count (number/volume) 3.30 10*6/uL 4.35-5.85 Venous blood hemoglobin measurement (mass/volume) 9.8 g/dL 11.5-16.0 Blood hematocrit (volume fraction) 30 % 35-52 Automated erythrocyte mean corpuscular volume 91 [ foz_us] 80-99 Automated erythrocyte mean corpuscular h emoglobin (mass per erythrocyte) 30 pg 25-34 Automated erythrocyte mean corpuscular h emoglobin concentration measurement (mass/volume) 33 g/dL 32-36 Automated erythrocyte distribution width ratio 15. 0 % 10.0- 14.5 Automated blood platelet count (count/volume) 121 10*3/uL 130-400 Automated blood platelet mean volume measurement 10.2 [foz_us] 7.4-10.4 Automated blood complete blood count ([employer]) panel - 03/31/18 05:59 Blood leukocytes automated count (number/volume) 4.4 10*3/uL 4.3-11.0 Blood erythrocytes automated count (number/volume) 3.27 10*6/uL 4.35-5.85 Venous blood hemoglobin measurement (mass/volume) 10.0 g/dL 11.5-16.0 Blood hematocrit (volume fraction) 30 % 35-52 Automated erythrocyte mean corpuscular volume 91 [ foz_us] 80-99 Automated erythrocyte mean corpuscular h emoglobin (mass per erythrocyte) 31 pg 25-34 Automated erythrocyte mean corpuscular h emoglobin concentration measurement (mass/volume) 34 g/dL 32-36 Automated erythrocyte distribution width ratio 14. 9 % 10.0- 14.5 Automated blood platelet count (count/volume) 108 10*3/uL 130-400 Automated blood platelet mean volume measurement 10.5 [foz_us] 7.4-10.4 Comprehensive metabolic panel - 03/31/18 05:59 Serum or plasma sodium measurement (moles/volume) 143 mmol/L 135-145 Serum or plasma potassium measurement (moles/volume) 4.0 mmol/L 3.6-5.0 Serum or plasma chloride measurement (moles/volume) 113 mmol/L 98-107 Carbon dioxide 24 mmol/L 21-32 Serum or plasma anion gap determination (moles/volume) 6 mmol/L 5-14 Serum or plasma urea nitrogen measurement (mass/volume ) 22 mg/dL 7-18 Serum or plasma creatinine measurement (mass/volume) 0.66 mg/dL 0.60-1.30 Serum or plasma urea nitrogen/creatinine mass ratio 33 NRG Serum or plasma creatinine measurement w ith calculation of estimated glomerular filtration rate > NRG Serum or plasma glucose measurement (mass/volume) 134 mg/dL 70-105 Serum or plasma calcium measurement (mass/volume) 8.2 mg/dL 8.5-10.1 Serum or plasma total bilirubin measurement (mass/volu me) 0.9 mg/dL 0.1-1.0 Serum or plasma alkaline phosphatase davion surement (enzymatic activity/volume) 65 U/L 40-136 Serum or plasma aspartate aminotransfera se measurement (enzymatic activity/volume) 24 U/L 5-34 Serum or plasma alanine aminotransferase measurement (enzymatic activity/volume) 22 U/L 0-55 Serum or plasma protein measurement (mass/volume) 5.1 g/dL 6.4-8.2 Serum or plasma albumin measurement (mass/volume) 2.6 g/dL 3.2-4.5 RED CELLS LEUKO REDUCED AS1 - 04/02/18 0 0:45 RED CELLS LEUKO REDUCED AS1 T RANSFUSED 04/03/18 0129 NRG Blood type T Indirect antibody screen [facility] 04/02/18 00:45 ABO+Rh group ON NRG Transfusion band number [id number] NRG Blood group antibody screen NEGATIVE NR G RED CELLS LEUKO REDUCED AS1 - 04/02/18 0 0:45 RED CELLS LEUKO REDUCED AS1 T RANSFUSED 04/03/18 1419 NRG Blood type T Indirect antibody screen [facility] 04/02/18 00:45 ABO+Rh group ON NRG Transfusion band number [id number] NRG Blood group antibody screen NEGATIVE NR G Complete blood count (CBC) with automate d white blood cell (WBC) differential - 04/02/18 03:57 Blood leukocytes automated count (number/volume) 9.8 10*3/uL 4.3-11.0 Blood erythrocytes automated count (number/volume) 2.77 10*6/uL 4.35-5.85 Venous blood hemoglobin measurement (mass/volume) 8.6 g/dL 11.5-16.0 Blood hematocrit (volume fraction) 25 % 35-52 Automated erythrocyte mean corpuscular volume 91 [ foz_us] 80-99 Automated erythrocyte mean corpuscular h emoglobin (mass per erythrocyte) 31 pg 25-34 Automated erythrocyte mean corpuscular h emoglobin concentration measurement (mass/volume) 34 g/dL 32-36 Automated erythrocyte distribution width ratio 14. 9 % 10.0- 14.5 Automated blood platelet count (count/volume) 122 10*3/uL 130-400 Automated blood platelet mean volume measurement 10.5 [foz_us] 7.4-10.4 Automated blood neutrophils/100 leukocytes 80 % 42-75 Automated blood lymphocytes/100 leukocytes 9 % 12-44 Blood monocytes/100 leukocytes 8 % 0-12 Automated blood eosinophils/100 leukocytes 2 % 0-10 Automated blood basophils/100 leukocytes 0 % 0-10 Blood neutrophils automated count (number/volume) 7.9 10*3 1.8-7.8 Blood lymphocytes automated count (number/volume) 0.9 10*3 1.0-4.0 Blood monocytes automated count (number/volume) 0. 8 10*3 0.0-1.0 Automated eosinophil count 0.2 10*3/uL 0 .0-0.3 Automated blood basophil count (count/volume) 0.0 10*3/uL 0.0-0.1 Comprehensive metabolic panel - 04/02/18 03:57 Serum or plasma sodium measurement (moles/volume) 141 mmol/L 135-145 Serum or plasma potassium measurement (moles/volume) 4.0 mmol/L 3.6-5.0 Serum or plasma chloride measurement (moles/volume) 111 mmol/L 98-107 Carbon dioxide 21 mmol/L 21-32 Serum or plasma anion gap determination (moles/volume) 9 mmol/L 5-14 Serum or plasma urea nitrogen measurement (mass/volume ) 24 mg/dL 7-18 Serum or plasma creatinine measurement (mass/volume) 0.78 mg/dL 0.60-1.30 Serum or plasma urea nitrogen/creatinine mass ratio 31 NRG Serum or plasma creatinine measurement w ith calculation of estimated glomerular filtration rate > NRG Serum or plasma glucose measurement (mass/volume) 147 mg/dL 70-105 Serum or plasma calcium measurement (mass/volume) 8.1 mg/dL 8.5-10.1 Serum or plasma total bilirubin measurement (mass/volu me) 1.3 mg/dL 0.1-1.0 Serum or plasma alkaline phosphatase davion surement (enzymatic activity/volume) 60 U/L 40-136 Serum or plasma aspartate aminotransfera se measurement (enzymatic activity/volume) 18 U/L 5-34 Serum or plasma alanine aminotransferase measurement (enzymatic activity/volume) 18 U/L 0-55 Serum or plasma protein measurement (mass/volume) 5.0 g/dL 6.4-8.2 Serum or plasma albumin measurement (mass/volume) 2.5 g/dL 3.2-4.5 Serum or plasma troponin i.cardiac measu rement (mass/volume) - 04/02/18 03:57 Serum or plasma troponin i.cardiac measurement (mass/v olume) < ng/mL <0.30 PT panel in platelet poor plasma by coag ulation assay - 04/02/18 03:57 Prothrombin time (PT) in platelet poor plasma by coagu lation assay 25.6 s 12.2-14.7 INR in platelet poor plasma or blood by coagulation as say 2.3 0.8-1.4 Activated partial thromboplastin time (a PTT) in platelet poor plasma bycoagulation assay - 04/02/18 03:57 Activated partial thromboplastin time (a PTT) in platelet poor plasma bycoagulation assay 43 s 24-35 Blood lactic acid measurement (moles/vol ume) - 04/02/18 03:57 Blood lactic acid measurement (moles/volume) 3.61 mmol/L 0.50-2.00 Serum or plasma lithium measurement (mol es/volume) - 04/02/18 03:57 BNP level 43.9 pg/mL <100.0 Serum or plasma thyrotropin measurement by detection limit <=0.05 miu/l (units/volume) - 04/02/18 03:57 Serum or plasma thyrotropin measurement by detection limit <=0.05 miu/l (units/volume) 1.04 u[iU]/mL 0.35-4.94 Serum or plasma C reactive protein measu rement (mass/volume) - 04/02/18 03:57 Serum or plasma C reactive protein measurement (mass/v olume) 5.16 mg/dL 0.00-0.50 Fibrin D-dimer FEU measurement in platel et poor plasma (mass/volume) - 04/02/18 03:57 Fibrin D-dimer FEU measurement in platelet poor plasma (mass/volume) 10.24 ug/mL 0.00-0.49 Bacterial blood culture - 04/02/18 04:01 Bacterial blood culture NG NRG Complete urinalysis with reflex to cultu re - 04/02/18 04:30 Urine color determination EDISON NRG Urine clarity determination SLIGHTLY CLOUDY NRG Urine pH measurement by test strip 5 5-9 Specific gravity of urine by test strip 1.015 1.016-1.022 Urine protein assay by test strip, semi-quantitative 1+ NEGATIVE Urine glucose detection by automated test strip NE GATIVE NEGATIVE Erythrocytes detection in urine sediment by light micr oscopy 2+ NEGATIVE Urine ketones detection by automated test strip NE GATIVE NEGATIVE Urine nitrite detection by test strip POSITIVE NEGATIVE Urine total bilirubin detection by test strip 1+ NEGATIVE Urine urobilinogen measurement by automated test strip (mass/volume) 1 mg/dL NORMAL Urine leukocyte esterase detection by dipstick 2+ NEGATIVE Automated urine sediment erythrocyte cou nt by microscopy (number/high power field) [HPF] NRG Automated urine sediment leukocyte count by microscopy (number/high power field) [HPF] NRG Bacteria detection in urine sediment by light microsco py FEW NRG Squamous epithelial cells detection in u rine sediment by light microscopy 0-2 NRG Crystals detection in urine sediment by light microsco py NONE NRG Casts detection in urine sediment by light microscopy NONE NRG Mucus detection in urine sediment by light microscopy NEGATIVE NRG Complete urinalysis with reflex to culture YES NRG Renal epithelial cells detection in urin e sediment by light microscopy 2-5 NRG Bacterial urine culture - 04/02/18 04:30 Bacterial urine culture RML NRG COLONY COUNT . NRG Capillary blood glucose measurement by g lucometer (mass/volume) - 04/02/18 04:41 Capillary blood glucose measurement by glucometer (mas s/volume) 145 mg/dL 70-110 Bacterial blood culture - 04/02/18 05:05 Bacterial blood culture NG NRG Serum or plasma lactate measurement (mol es/volume) - 04/02/18 06:45 Serum or plasma lactate measurement (moles/volume) 2.46 mmol/L 0.50-2.00 Capillary blood glucose measurement by g lucometer (mass/volume) - 04/02/18 10:40 Capillary blood glucose measurement by glucometer (mas s/volume) 134 mg/dL 70-110 Capillary blood glucose measurement by g lucometer (mass/volume) - 04/02/18 17:06 Capillary blood glucose measurement by glucometer (mas s/volume) 114 mg/dL 70-110 Complete blood count (CBC) with automate d white blood cell (WBC) differential - 04/02/18 17:08 Blood leukocytes automated count (number/volume) 7.0 10*3/uL 4.3-11.0 Blood erythrocytes automated count (number/volume) 2.33 10*6/uL 4.35-5.85 Venous blood hemoglobin measurement (mass/volume) 7.0 g/dL 11.5-16.0 Blood hematocrit (volume fraction) 21 % 35-52 Automated erythrocyte mean corpuscular volume 91 [ foz_us] 80-99 Automated erythrocyte mean corpuscular h emoglobin (mass per erythrocyte) 30 pg 25-34 Automated erythrocyte mean corpuscular h emoglobin concentration measurement (mass/volume) 33 g/dL 32-36 Automated erythrocyte distribution width ratio 15. 5 % 10.0- 14.5 Automated blood platelet count (count/volume) 101 10*3/uL 130-400 Automated blood platelet mean volume measurement 9.9 [foz_us] 7.4-10.4 Automated blood neutrophils/100 leukocytes 73 % 42-75 Automated blood lymphocytes/100 leukocytes 14 % 12-44 Blood monocytes/100 leukocytes 9 % 0-12 Automated blood eosinophils/100 leukocytes 5 % 0-10 Automated blood basophils/100 leukocytes 0 % 0-10 Blood neutrophils automated count (number/volume) 5.1 10*3 1.8-7.8 Blood lymphocytes automated count (number/volume) 1.0 10*3 1.0-4.0 Blood monocytes automated count (number/volume) 0. 7 10*3 0.0-1.0 Automated eosinophil count 0.3 10*3/uL 0 .0-0.3 Automated blood basophil count (count/volume) 0.0 10*3/uL 0.0-0.1 Blood lactic acid measurement (moles/vol ume) - 04/02/18 17:08 Blood lactic acid measurement (moles/volume) 1.31 mmol/L 0.50-2.00 Whole blood basic metabolic panel - 11/15 17:08 Serum or plasma sodium measurement (moles/volume) 142 mmol/L 135-145 Serum or plasma potassium measurement (moles/volume) 3.7 mmol/L 3.6-5.0 Serum or plasma chloride measurement (moles/volume) 112 mmol/L 98-107 Carbon dioxide 25 mmol/L 21-32 Serum or plasma anion gap determination (moles/volume) 5 mmol/L 5-14 Serum or plasma urea nitrogen measurement (mass/volume ) 27 mg/dL 7-18 Serum or plasma creatinine measurement (mass/volume) 0.81 mg/dL 0.60-1.30 Serum or plasma urea nitrogen/creatinine mass ratio 33 NRG Serum or plasma creatinine measurement w ith calculation of estimated glomerular filtration rate > NRG Serum or plasma glucose measurement (mass/volume) 115 mg/dL 70-105 Serum or plasma calcium measurement (mass/volume) 7.7 mg/dL 8.5-10.1 Capillary blood glucose measurement by g lucometer (mass/volume) - 04/02/18 21:28 Capillary blood glucose measurement by glucometer (mas s/volume) 189 mg/dL 70-110 Whole blood hemoglobin and hematocrit pa chloe - 04/02/18 23:40 Venous blood hemoglobin measurement (mass/volume) 6.8 g/dL 11.5-16.0 Blood hematocrit (volume fraction) 20 % 35-52 Serum iron and total iron binding capaci ty panel - 04/03/18 00:45 Serum or plasma iron measurement (mass/volume) 30 % 35-180 Total iron binding capacity and transferrin saturation measurement 17 % 15-50 Iron binding capacity [mass/volume] in serum or plasma 180 % 280-380 UIBC (unsaturated iron binding capacity) 150 % 55-450 Serum or plasma ferritin measurement (mass/volume) 113.7 % 20.0-177.0 Capillary blood glucose measurement by g lucometer (mass/volume) - 04/03/18 06:06 Capillary blood glucose measurement by glucometer (mas s/volume) 119 mg/dL 70-110 Complete blood count (CBC) with automate d white blood cell (WBC) differential - 04/03/18 06:35 Blood leukocytes automated count (number/volume) 7.0 10*3/uL 4.3-11.0 Blood erythrocytes automated count (number/volume) 2.29 10*6/uL 4.35-5.85 Venous blood hemoglobin measurement (mass/volume) 6.8 g/dL 11.5-16.0 Blood hematocrit (volume fraction) 21 % 35-52 Automated erythrocyte mean corpuscular volume 91 [ foz_us] 80-99 Automated erythrocyte mean corpuscular h emoglobin (mass per erythrocyte) 30 pg 25-34 Automated erythrocyte mean corpuscular h emoglobin concentration measurement (mass/volume) 33 g/dL 32-36 Automated erythrocyte distribution width ratio 16. 0 % 10.0- 14.5 Automated blood platelet count (count/volume) 93 1 0*3/uL 130-400 Automated blood platelet mean volume measurement 11.3 [foz_us] 7.4-10.4 Automated blood neutrophils/100 leukocytes 69 % 42-75 Automated blood lymphocytes/100 leukocytes 15 % 12-44 Blood monocytes/100 leukocytes 10 % 0-12 Automated blood eosinophils/100 leukocytes 6 % 0-10 Automated blood basophils/100 leukocytes 0 % 0-10 Blood neutrophils automated count (number/volume) 4.8 10*3 1.8-7.8 Blood lymphocytes automated count (number/volume) 1.1 10*3 1.0-4.0 Blood monocytes automated count (number/volume) 0. 7 10*3 0.0-1.0 Automated eosinophil count 0.4 10*3/uL 0 .0-0.3 Automated blood basophil count (count/volume) 0.0 10*3/uL 0.0-0.1 Comprehensive metabolic panel - 04/03/18 06:45 Serum or plasma sodium measurement (moles/volume) 142 mmol/L 135-145 Serum or plasma potassium measurement (moles/volume) 3.9 mmol/L 3.6-5.0 Serum or plasma chloride measurement (moles/volume) 113 mmol/L 98-107 Carbon dioxide 24 mmol/L 21-32 Serum or plasma anion gap determination (moles/volume) 5 mmol/L 5-14 Serum or plasma urea nitrogen measurement (mass/volume ) 28 mg/dL 7-18 Serum or plasma creatinine measurement (mass/volume) 0.73 mg/dL 0.60-1.30 Serum or plasma urea nitrogen/creatinine mass ratio 38 NRG Serum or plasma creatinine measurement w ith calculation of estimated glomerular filtration rate > NRG Serum or plasma glucose measurement (mass/volume) 123 mg/dL 70-105 Serum or plasma calcium measurement (mass/volume) 7.9 mg/dL 8.5-10.1 Serum or plasma total bilirubin measurement (mass/volu me) 1.0 mg/dL 0.1-1.0 Serum or plasma alkaline phosphatase davion surement (enzymatic activity/volume) 53 U/L 40-136 Serum or plasma aspartate aminotransfera se measurement (enzymatic activity/volume) 15 U/L 5-34 Serum or plasma alanine aminotransferase measurement (enzymatic activity/volume) 14 U/L 0-55 Serum or plasma protein measurement (mass/volume) 4.5 g/dL 6.4-8.2 Serum or plasma albumin measurement (mass/volume) 2.2 g/dL 3.2-4.5 Magnesium - 04/03/18 06:45 Magnesium 1.3 mg/dL 1.8-2.4 Lipid 1996 panel - 04/03/18 06:45 Serum or plasma triglyceride measurement (mass/volume) 60 mg/dL <150 Serum or plasma cholesterol measurement (mass/volume) 84 mg/dL < 200 Serum or plasma cholesterol in HDL measurement (mass/v olume) 28 mg/dL 40-60 Cholesterol in LDL [mass/volume] in serum or plasma by direct assay 39 mg/dL 1-129 Serum or plasma cholesterol in VLDL measurement (mass/ volume) 12 mg/dL 5-40 Whole blood hemoglobin and hematocrit pa chloe - 04/03/18 08:30 Venous blood hemoglobin measurement (mass/volume) 6.9 g/dL 11.5-16.0 Blood hematocrit (volume fraction) 21 % 35-52 Capillary blood glucose measurement by g lucometer (mass/volume) - 04/03/18 14:08 Capillary blood glucose measurement by glucometer (mas s/volume) 132 mg/dL 70-110 Stool occult blood screen - 04/03/18 17: 20 Stool gastrointestinal hemoglobin detection POSITI VE NEGATIVE Capillary blood glucose measurement by g lucometer (mass/volume) - 04/03/18 17:34 Capillary blood glucose measurement by glucometer (mas s/volume) 157 mg/dL 70-110 Whole blood hemoglobin and hematocrit pa chloe - 04/03/18 18:39 Venous blood hemoglobin measurement (mass/volume) 7.8 g/dL 11.5-16.0 Blood hematocrit (volume fraction) 24 % 35-52 Complete blood count (CBC) with automate d white blood cell (WBC) differential - 04/04/18 03:45 Blood leukocytes automated count (number/volume) 5.6 10*3/uL 4.3-11.0 Blood erythrocytes automated count (number/volume) 2.67 10*6/uL 4.35-5.85 Venous blood hemoglobin measurement (mass/volume) 8.0 g/dL 11.5-16.0 Blood hematocrit (volume fraction) 23 % 35-52 Automated erythrocyte mean corpuscular volume 87 [ foz_us] 80-99 Automated erythrocyte mean corpuscular h emoglobin (mass per erythrocyte) 30 pg 25-34 Automated erythrocyte mean corpuscular h emoglobin concentration measurement (mass/volume) 34 g/dL 32-36 Automated erythrocyte distribution width ratio 15. 9 % 10.0- 14.5 Automated blood platelet count (count/volume) 90 1 0*3/uL 130-400 Automated blood platelet mean volume measurement 10.5 [foz_us] 7.4-10.4 Automated blood neutrophils/100 leukocytes 63 % 42-75 Automated blood lymphocytes/100 leukocytes 20 % 12-44 Blood monocytes/100 leukocytes 10 % 0-12 Automated blood eosinophils/100 leukocytes 6 % 0-10 Automated blood basophils/100 leukocytes 1 % 0-10 Blood neutrophils automated count (number/volume) 3.6 10*3 1.8-7.8 Blood lymphocytes automated count (number/volume) 1.1 10*3 1.0-4.0 Blood monocytes automated count (number/volume) 0. 5 10*3 0.0-1.0 Automated eosinophil count 0.4 10*3/uL 0 .0-0.3 Automated blood basophil count (count/volume) 0.0 10*3/uL 0.0-0.1 Comprehensive metabolic panel - 04/04/18 03:45 Serum or plasma sodium measurement (moles/volume) 142 mmol/L 135-145 Serum or plasma potassium measurement (moles/volume) 4.2 mmol/L 3.6-5.0 Serum or plasma chloride measurement (moles/volume) 113 mmol/L 98-107 Carbon dioxide 23 mmol/L 21-32 Serum or plasma anion gap determination (moles/volume) 6 mmol/L 5-14 Serum or plasma urea nitrogen measurement (mass/volume ) 26 mg/dL 7-18 Serum or plasma creatinine measurement (mass/volume) 0.63 mg/dL 0.60-1.30 Serum or plasma urea nitrogen/creatinine mass ratio 41 NRG Serum or plasma creatinine measurement w ith calculation of estimated glomerular filtration rate > NRG Serum or plasma glucose measurement (mass/volume) 122 mg/dL 70-105 Serum or plasma calcium measurement (mass/volume) 7.7 mg/dL 8.5-10.1 Serum or plasma total bilirubin measurement (mass/volu me) 1.3 mg/dL 0.1-1.0 Serum or plasma alkaline phosphatase davion surement (enzymatic activity/volume) 58 U/L 40-136 Serum or plasma aspartate aminotransfera se measurement (enzymatic activity/volume) 21 U/L 5-34 Serum or plasma alanine aminotransferase measurement (enzymatic activity/volume) 20 U/L 0-55 Serum or plasma protein measurement (mass/volume) 4.3 g/dL 6.4-8.2 Serum or plasma albumin measurement (mass/volume) 2.2 g/dL 3.2-4.5 Capillary blood glucose measurement by g lucometer (mass/volume) - 04/04/18 12:10 Capillary blood glucose measurement by glucometer (mas s/volume) 133 mg/dL 70-110 Capillary blood glucose measurement by g lucometer (mass/volume) - 04/04/18 17:23 Capillary blood glucose measurement by glucometer (mas s/volume) 108 mg/dL 70-110 Capillary blood glucose measurement by g lucometer (mass/volume) - 04/04/18 21:29 Capillary blood glucose measurement by glucometer (mas s/volume) 103 mg/dL 70-110 Complete blood count (CBC) with automate d white blood cell (WBC) differential - 04/05/18 04:15 Blood leukocytes automated count (number/volume) 4.2 10*3/uL 4.3-11.0 Blood erythrocytes automated count (number/volume) 2.89 10*6/uL 4.35-5.85 Venous blood hemoglobin measurement (mass/volume) 8.7 g/dL 11.5-16.0 Blood hematocrit (volume fraction) 26 % 35-52 Automated erythrocyte mean corpuscular volume 89 [ foz_us] 80-99 Automated erythrocyte mean corpuscular h emoglobin (mass per erythrocyte) 30 pg 25-34 Automated erythrocyte mean corpuscular h emoglobin concentration measurement (mass/volume) 34 g/dL 32-36 Automated erythrocyte distribution width ratio 15. 9 % 10.0- 14.5 Automated blood platelet count (count/volume) 72 1 0*3/uL 130-400 Automated blood platelet mean volume measurement 10.7 [foz_us] 7.4-10.4 Automated blood neutrophils/100 leukocytes 60 % 42-75 Automated blood lymphocytes/100 leukocytes 20 % 12-44 Blood monocytes/100 leukocytes 10 % 0-12 Automated blood eosinophils/100 leukocytes 10 % 0-10 Automated blood basophils/100 leukocytes 1 % 0-10 Blood neutrophils automated count (number/volume) 2.5 10*3 1.8-7.8 Blood lymphocytes automated count (number/volume) 0.9 10*3 1.0-4.0 Blood monocytes automated count (number/volume) 0. 4 10*3 0.0-1.0 Automated eosinophil count 0.4 10*3/uL 0 .0-0.3 Automated blood basophil count (count/volume) 0.0 10*3/uL 0.0-0.1 Comprehensive metabolic panel - 04/05/18 04:15 Serum or plasma sodium measurement (moles/volume) 145 mmol/L 135-145 Serum or plasma potassium measurement (moles/volume) 4.6 mmol/L 3.6-5.0 Serum or plasma chloride measurement (moles/volume) 115 mmol/L 98-107 Carbon dioxide 23 mmol/L 21-32 Serum or plasma anion gap determination (moles/volume) 7 mmol/L 5-14 Serum or plasma urea nitrogen measurement (mass/volume ) 20 mg/dL 7-18 Serum or plasma creatinine measurement (mass/volume) 0.57 mg/dL 0.60-1.30 Serum or plasma urea nitrogen/creatinine mass ratio 35 NRG Serum or plasma creatinine measurement w ith calculation of estimated glomerular filtration rate > NRG Serum or plasma glucose measurement (mass/volume) 98 mg/dL 70-105 Serum or plasma calcium measurement (mass/volume) 8.3 mg/dL 8.5-10.1 Serum or plasma total bilirubin measurement (mass/volu me) 2.0 mg/dL 0.1-1.0 Serum or plasma alkaline phosphatase davion surement (enzymatic activity/volume) 55 U/L 40-136 Serum or plasma aspartate aminotransfera se measurement (enzymatic activity/volume) 21 U/L 5-34 Serum or plasma alanine aminotransferase measurement (enzymatic activity/volume) 17 U/L 0-55 Serum or plasma protein measurement (mass/volume) 4.7 g/dL 6.4-8.2 Serum or plasma albumin measurement (mass/volume) 2.5 g/dL 3.2-4.5 Serum or plasma phosphate measurement (m ass/volume) - 04/05/18 04:15 Serum or plasma phosphate measurement (mass/volume) 2.6 mg/dL 2.3-4.7 Magnesium - 04/05/18 04:15 Magnesium 1.6 mg/dL 1.8-2.4 Fungus culture - 04/05/18 13:45 Fungus culture NG NRG Mycobacterium species detection by organ ism specific culture - 04/05/18 13:45 Capillary blood glucose measurement by g lucometer (mass/volume) - 04/05/18 16:20 Capillary blood glucose measurement by glucometer (mas s/volume) 101 mg/dL 70-110 Complete blood count (CBC) with automate d white blood cell (WBC) differential - 04/06/18 04:30 Blood leukocytes automated count (number/volume) 3.8 10*3/uL 4.3-11.0 Blood erythrocytes automated count (number/volume) 2.61 10*6/uL 4.35-5.85 Venous blood hemoglobin measurement (mass/volume) 7.7 g/dL 11.5-16.0 Blood hematocrit (volume fraction) 24 % 35-52 Automated erythrocyte mean corpuscular volume 92 [ foz_us] 80-99 Automated erythrocyte mean corpuscular h emoglobin (mass per erythrocyte) 30 pg 25-34 Automated erythrocyte mean corpuscular h emoglobin concentration measurement (mass/volume) 32 g/dL 32-36 Automated erythrocyte distribution width ratio 16. 1 % 10.0- 14.5 Automated blood platelet count (count/volume) 116 10*3/uL 130-400 Automated blood platelet mean volume measurement 9.9 [foz_us] 7.4-10.4 Automated blood neutrophils/100 leukocytes 65 % 42-75 Automated blood lymphocytes/100 leukocytes 16 % 12-44 Blood monocytes/100 leukocytes 11 % 0-12 Automated blood eosinophils/100 leukocytes 8 % 0-10 Automated blood basophils/100 leukocytes 0 % 0-10 Blood neutrophils automated count (number/volume) 2.5 10*3 1.8-7.8 Blood lymphocytes automated count (number/volume) 0.6 10*3 1.0-4.0 Blood monocytes automated count (number/volume) 0. 4 10*3 0.0-1.0 Automated eosinophil count 0.3 10*3/uL 0 .0-0.3 Automated blood basophil count (count/volume) 0.0 10*3/uL 0.0-0.1 Comprehensive metabolic panel - 04/06/18 04:30 Serum or plasma sodium measurement (moles/volume) 143 mmol/L 135-145 Serum or plasma potassium measurement (moles/volume) 4.1 mmol/L 3.6-5.0 Serum or plasma chloride measurement (moles/volume) 112 mmol/L 98-107 Carbon dioxide 26 mmol/L 21-32 Serum or plasma anion gap determination (moles/volume) 5 mmol/L 5-14 Serum or plasma urea nitrogen measurement (mass/volume ) 19 mg/dL 7-18 Serum or plasma creatinine measurement (mass/volume) 0.61 mg/dL 0.60-1.30 Serum or plasma urea nitrogen/creatinine mass ratio 31 NRG Serum or plasma creatinine measurement w ith calculation of estimated glomerular filtration rate > NRG Serum or plasma glucose measurement (mass/volume) 135 mg/dL 70-105 Serum or plasma calcium measurement (mass/volume) 8.1 mg/dL 8.5-10.1 Serum or plasma total bilirubin measurement (mass/volu me) 2.0 mg/dL 0.1-1.0 Serum or plasma alkaline phosphatase davion surement (enzymatic activity/volume) 55 U/L 40-136 Serum or plasma aspartate aminotransfera se measurement (enzymatic activity/volume) 19 U/L 5-34 Serum or plasma alanine aminotransferase measurement (enzymatic activity/volume) 16 U/L 0-55 Serum or plasma protein measurement (mass/volume) 4.6 g/dL 6.4-8.2 Serum or plasma albumin measurement (mass/volume) 2.6 g/dL 3.2-4.5 Serum or plasma phosphate measurement (m ass/volume) - 04/06/18 04:30 Serum or plasma phosphate measurement (mass/volume) 2.4 mg/dL 2.3-4.7 Magnesium - 04/06/18 04:30 Magnesium 1.5 mg/dL 1.8-2.4 [id number] - 04/06/18 04:45 [id number] SPECIMEN AVAILABLE NR Blood type T Indirect antibody screen tanya chloe - 04/06/18 04:45 ABO+Rh group ON NRG Transfusion band number [id number] NR Blood group antibody screen NEGATIVE NR Capillary blood glucose measurement by g lucometer (mass/volume) - 04/06/18 11:06 Capillary blood glucose measurement by glucometer (mas s/volume) 170 mg/dL 70-110 Capillary blood glucose measurement by g lucometer (mass/volume) - 04/06/18 15:33 Capillary blood glucose measurement by glucometer (mas s/volume) 180 mg/dL 70-110 Capillary blood glucose measurement by g lucometer (mass/volume) - 04/06/18 20:58 Capillary blood glucose measurement by glucometer (mas s/volume) 168 mg/dL 70-110 Complete blood count (CBC) with automate d white blood cell (WBC) differential - 04/07/18 05:00 Blood leukocytes automated count (number/volume) 4.4 10*3/uL 4.3-11.0 Blood erythrocytes automated count (number/volume) 2.66 10*6/uL 4.35-5.85 Venous blood hemoglobin measurement (mass/volume) 8.1 g/dL 11.5-16.0 Blood hematocrit (volume fraction) 24 % 35-52 Automated erythrocyte mean corpuscular volume 91 [ foz_us] 80-99 Automated erythrocyte mean corpuscular h emoglobin (mass per erythrocyte) 31 pg 25-34 Automated erythrocyte mean corpuscular h emoglobin concentration measurement (mass/volume) 33 g/dL 32-36 Automated erythrocyte distribution width ratio 15. 8 % 10.0- 14.5 Automated blood platelet count (count/volume) 118 10*3/uL 130-400 Automated blood platelet mean volume measurement 9.8 [foz_us] 7.4-10.4 Automated blood neutrophils/100 leukocytes 68 % 42-75 Automated blood lymphocytes/100 leukocytes 16 % 12-44 Blood monocytes/100 leukocytes 10 % 0-12 Automated blood eosinophils/100 leukocytes 5 % 0-10 Automated blood basophils/100 leukocytes 1 % 0-10 Blood neutrophils automated count (number/volume) 3.0 10*3 1.8-7.8 Blood lymphocytes automated count (number/volume) 0.7 10*3 1.0-4.0 Blood monocytes automated count (number/volume) 0. 5 10*3 0.0-1.0 Automated eosinophil count 0.2 10*3/uL 0 .0-0.3 Automated blood basophil count (count/volume) 0.0 10*3/uL 0.0-0.1 Magnesium - 04/07/18 05:00 Magnesium 1.5 mg/dL 1.8-2.4 Capillary blood glucose measurement by g lucometer (mass/volume) - 04/07/18 05:17 Capillary blood glucose measurement by glucometer (mas s/volume) 140 mg/dL 70-110 Capillary blood glucose measurement by g lucometer (mass/volume) - 04/07/18 11:14 Capillary blood glucose measurement by glucometer (mas s/volume) 168 mg/dL 70-110 Capillary blood glucose measurement by g lucometer (mass/volume) - 04/07/18 15:36 Capillary blood glucose measurement by glucometer (mas s/volume) 173 mg/dL 70-110 Capillary blood glucose measurement by g lucometer (mass/volume) - 04/07/18 21:03 Capillary blood glucose measurement by glucometer (mas s/volume) 181 mg/dL 70-110 Capillary blood glucose measurement by g lucometer (mass/volume) - 04/08/18 05:07 Capillary blood glucose measurement by glucometer (mas s/volume) 139 mg/dL 70-110 Complete blood count (CBC) with automate d white blood cell (WBC) differential - 04/08/18 05:26 Blood leukocytes automated count (number/volume) 4.8 10*3/uL 4.3-11.0 Blood erythrocytes automated count (number/volume) 2.76 10*6/uL 4.35-5.85 Venous blood hemoglobin measurement (mass/volume) 8.1 g/dL 11.5-16.0 Blood hematocrit (volume fraction) 25 % 35-52 Automated erythrocyte mean corpuscular volume 92 [ foz_us] 80-99 Automated erythrocyte mean corpuscular h emoglobin (mass per erythrocyte) 29 pg 25-34 Automated erythrocyte mean corpuscular h emoglobin concentration measurement (mass/volume) 32 g/dL 32-36 Automated erythrocyte distribution width ratio 16. 4 % 10.0- 14.5 Automated blood platelet count (count/volume) 132 10*3/uL 130-400 Automated blood platelet mean volume measurement 9.9 [foz_us] 7.4-10.4 Automated blood neutrophils/100 leukocytes 68 % 42-75 Automated blood lymphocytes/100 leukocytes 15 % 12-44 Blood monocytes/100 leukocytes 10 % 0-12 Automated blood eosinophils/100 leukocytes 7 % 0-10 Automated blood basophils/100 leukocytes 0 % 0-10 Blood neutrophils automated count (number/volume) 3.2 10*3 1.8-7.8 Blood lymphocytes automated count (number/volume) 0.7 10*3 1.0-4.0 Blood monocytes automated count (number/volume) 0. 5 10*3 0.0-1.0 Automated eosinophil count 0.3 10*3/uL 0 .0-0.3 Automated blood basophil count (count/volume) 0.0 10*3/uL 0.0-0.1 Capillary blood glucose measurement by g lucometer (mass/volume) - 04/08/18 11:20 Capillary blood glucose measurement by glucometer (mas s/volume) 177 mg/dL 70-110 Capillary blood glucose measurement by g lucometer (mass/volume) - 04/08/18 16:36 Capillary blood glucose measurement by glucometer (mas s/volume) 197 mg/dL 70-110 Venous blood hemoglobin measurement (mas s/volume) - 04/08/18 18:15 Venous blood hemoglobin measurement (mass/volume) 8.6 g/dL 11.5-16.0 Capillary blood glucose measurement by g lucometer (mass/volume) - 04/08/18 20:02 Capillary blood glucose measurement by glucometer (mas s/volume) 258 mg/dL 70-110 Complete blood count (CBC) with automate d white blood cell (WBC) differential - 04/09/18 04:45 Blood leukocytes automated count (number/volume) 4.4 10*3/uL 4.3-11.0 Blood erythrocytes automated count (number/volume) 2.63 10*6/uL 4.35-5.85 Venous blood hemoglobin measurement (mass/volume) 8.0 g/dL 11.5-16.0 Blood hematocrit (volume fraction) 24 % 35-52 Automated erythrocyte mean corpuscular volume 92 [ foz_us] 80-99 Automated erythrocyte mean corpuscular h emoglobin (mass per erythrocyte) 30 pg 25-34 Automated erythrocyte mean corpuscular h emoglobin concentration measurement (mass/volume) 33 g/dL 32-36 Automated erythrocyte distribution width ratio 16. 6 % 10.0- 14.5 Automated blood platelet count (count/volume) 129 10*3/uL 130-400 Automated blood platelet mean volume measurement 10.1 [foz_us] 7.4-10.4 Automated blood neutrophils/100 leukocytes 69 % 42-75 Automated blood lymphocytes/100 leukocytes 16 % 12-44 Blood monocytes/100 leukocytes 9 % 0-12 Automated blood eosinophils/100 leukocytes 6 % 0-10 Automated blood basophils/100 leukocytes 1 % 0-10 Blood neutrophils automated count (number/volume) 3.0 10*3 1.8-7.8 Blood lymphocytes automated count (number/volume) 0.7 10*3 1.0-4.0 Blood monocytes automated count (number/volume) 0. 4 10*3 0.0-1.0 Automated eosinophil count 0.3 10*3/uL 0 .0-0.3 Automated blood basophil count (count/volume) 0.0 10*3/uL 0.0-0.1 Comprehensive metabolic panel - 04/09/18 04:45 Serum or plasma sodium measurement (moles/volume) 143 mmol/L 135-145 Serum or plasma potassium measurement (moles/volume) 3.7 mmol/L 3.6-5.0 Serum or plasma chloride measurement (moles/volume) 111 mmol/L 98-107 Carbon dioxide 27 mmol/L 21-32 Serum or plasma anion gap determination (moles/volume) 5 mmol/L 5-14 Serum or plasma urea nitrogen measurement (mass/volume ) 14 mg/dL 7-18 Serum or plasma creatinine measurement (mass/volume) 0.57 mg/dL 0.60-1.30 Serum or plasma urea nitrogen/creatinine mass ratio 25 NRG Serum or plasma creatinine measurement w ith calculation of estimated glomerular filtration rate > NRG Serum or plasma glucose measurement (mass/volume) 152 mg/dL 70-105 Serum or plasma calcium measurement (mass/volume) 8.2 mg/dL 8.5-10.1 Serum or plasma total bilirubin measurement (mass/volu me) 1.9 mg/dL 0.1-1.0 Serum or plasma alkaline phosphatase davion surement (enzymatic activity/volume) 52 U/L 40-136 Serum or plasma aspartate aminotransfera se measurement (enzymatic activity/volume) 14 U/L 5-34 Serum or plasma alanine aminotransferase measurement (enzymatic activity/volume) 13 U/L 0-55 Serum or plasma protein measurement (mass/volume) 4.6 g/dL 6.4-8.2 Serum or plasma albumin measurement (mass/volume) 2.3 g/dL 3.2-4.5 CALCIUM CORRECTED 9.6 mg/dL 8.5-10.1 Capillary blood glucose measurement by g lucometer (mass/volume) - 04/09/18 10:59 Capillary blood glucose measurement by glucometer (mas s/volume) 174 mg/dL 70-110 Capillary blood glucose measurement by g lucometer (mass/volume) - 04/09/18 16:31 Capillary blood glucose measurement by glucometer (mas s/volume) 172 mg/dL 70-110 Capillary blood glucose measurement by g lucometer (mass/volume) - 04/09/18 20:27 Capillary blood glucose measurement by glucometer (mas s/volume) 201 mg/dL 70-110 Whole blood basic metabolic panel - 03/31 09/17 06:01 Serum or plasma sodium measurement (moles/volume) 142 mmol/L 135-145 Serum or plasma potassium measurement (moles/volume) 3.8 mmol/L 3.6-5.0 Serum or plasma chloride measurement (moles/volume) 110 mmol/L 98-107 Carbon dioxide 25 mmol/L 21-32 Serum or plasma anion gap determination (moles/volume) 7 mmol/L 5-14 Serum or plasma urea nitrogen measurement (mass/volume ) 14 mg/dL 7-18 Serum or plasma creatinine measurement (mass/volume) 0.60 mg/dL 0.60-1.30 Serum or plasma urea nitrogen/creatinine mass ratio 23 NRG Serum or plasma creatinine measurement w ith calculation of estimated glomerular filtration rate > NRG Serum or plasma glucose measurement (mass/volume) 117 mg/dL 70-105 Serum or plasma calcium measurement (mass/volume) 8.1 mg/dL 8.5-10.1 Venous blood hemoglobin measurement (mas s/volume) - 04/10/18 06:01 Venous blood hemoglobin measurement (mass/volume) 8.4 g/dL 11.5-16.0 Capillary blood glucose measurement by g lucometer (mass/volume) - 04/10/18 07:03 Capillary blood glucose measurement by glucometer (mas s/volume) 125 mg/dL 70-110 Capillary blood glucose measurement by g lucometer (mass/volume) - 04/10/18 11:07 Capillary blood glucose measurement by glucometer (mas s/volume) 196 mg/dL 70-110 Capillary blood glucose measurement by g lucometer (mass/volume) - 04/23/18 11:20 Capillary blood glucose measurement by glucometer (mas s/volume) 138 mg/dL 70-110 Capillary blood glucose measurement by g lucometer (mass/volume) - 04/23/18 16:05 Capillary blood glucose measurement by glucometer (mas s/volume) 117 mg/dL 70-110 Capillary blood glucose measurement by g lucometer (mass/volume) - 04/23/18 20:02 Capillary blood glucose measurement by glucometer (mas s/volume) 130 mg/dL 70-110 Capillary blood glucose measurement by g lucometer (mass/volume) - 04/24/18 05:52 Capillary blood glucose measurement by glucometer (mas s/volume) 141 mg/dL 70-110 Capillary blood glucose measurement by g lucometer (mass/volume) - 04/24/18 11:30 Capillary blood glucose measurement by glucometer (mas s/volume) 140 mg/dL 70-110 Capillary blood glucose measurement by g lucometer (mass/volume) - 04/24/18 16:14 Capillary blood glucose measurement by glucometer (mas s/volume) 134 mg/dL 70-110 Capillary blood glucose measurement by g lucometer (mass/volume) - 04/24/18 20:24 Capillary blood glucose measurement by glucometer (mas s/volume) 145 mg/dL 70-110 Capillary blood glucose measurement by g lucometer (mass/volume) - 04/25/18 05:55 Capillary blood glucose measurement by glucometer (mas s/volume) 108 mg/dL 70-110 Capillary blood glucose measurement by g lucometer (mass/volume) - 04/25/18 10:53 Capillary blood glucose measurement by glucometer (mas s/volume) 185 mg/dL 70-110 Capillary blood glucose measurement by g lucometer (mass/volume) - 04/25/18 16:57 Capillary blood glucose measurement by glucometer (mas s/volume) 115 mg/dL 70-110 Capillary blood glucose measurement by g lucometer (mass/volume) - 04/25/18 20:25 Capillary blood glucose measurement by glucometer (mas s/volume) 136 mg/dL 70-110 Capillary blood glucose measurement by g lucometer (mass/volume) - 04/26/18 05:47 Capillary blood glucose measurement by glucometer (mas s/volume) 114 mg/dL 70-110 Capillary blood glucose measurement by g lucometer (mass/volume) - 04/26/18 11:42 Capillary blood glucose measurement by glucometer (mas s/volume) 142 mg/dL 70-110 Automated blood complete blood count (he mogram) panel - 04/26/18 14:45 Blood leukocytes automated count (number/volume) 7.1 10*3/uL 4.3-11.0 Blood erythrocytes automated count (number/volume) 3.39 10*6/uL 4.35-5.85 Venous blood hemoglobin measurement (mass/volume) 10.2 g/dL 11.5-16.0 Blood hematocrit (volume fraction) 33 % 35-52 Automated erythrocyte mean corpuscular volume 96 [ foz_us] 80-99 Automated erythrocyte mean corpuscular h emoglobin (mass per erythrocyte) 30 pg 25-34 Automated erythrocyte mean corpuscular h emoglobin concentration measurement (mass/volume) 31 g/dL 32-36 Automated erythrocyte distribution width ratio 18. 7 % 10.0- 14.5 Automated blood platelet count (count/volume) 158 10*3/uL 130-400 Automated blood platelet mean volume measurement 10.7 [foz_us] 7.4-10.4 Whole blood basic metabolic panel - 04/01 03/17 14:45 Serum or plasma sodium measurement (moles/volume) 142 mmol/L 135-145 Serum or plasma potassium measurement (moles/volume) 4.0 mmol/L 3.6-5.0 Serum or plasma chloride measurement (moles/volume) 111 mmol/L 98-107 Carbon dioxide 24 mmol/L 21-32 Serum or plasma anion gap determination (moles/volume) 7 mmol/L 5-14 Serum or plasma urea nitrogen measurement (mass/volume ) 25 mg/dL -18 Serum or plasma creatinine measurement (mass/volume) 1.25 mg/dL 0.60-1.30 Serum or plasma urea nitrogen/creatinine mass ratio 20 NRG Serum or plasma creatinine measurement w ith calculation of estimated glomerular filtration rate 41 NRG Serum or plasma glucose measurement (mass/volume) 181 mg/dL 70-105 Serum or plasma calcium measurement (mass/volume) 8.6 mg/dL 8.5-10.1 Magnesium - 04/26/18 14:45 Magnesium 1.2 mg/dL 1.8-2.4 Capillary blood glucose measurement by g lucometer (mass/volume) - 04/26/18 16:44 Capillary blood glucose measurement by glucometer (mas s/volume) 153 mg/dL 70-110 Capillary blood glucose measurement by g lucometer (mass/volume) - 04/26/18 20:13 Capillary blood glucose measurement by glucometer (mas s/volume) 166 mg/dL 70-110 Capillary blood glucose measurement by g lucometer (mass/volume) - 04/27/18 05:23 Capillary blood glucose measurement by glucometer (mas s/volume) 142 mg/dL 70-110 Magnesium - 04/27/18 05:25 Magnesium 2.2 mg/dL 1.8-2.4 Complete blood count (CBC) with automate d white blood cell (WBC) differential - 06/02/18 08:00 Blood leukocytes automated count (number/volume) 4.1 10*3/uL 4.3-11.0 Blood erythrocytes automated count (number/volume) 3.67 10*6/uL 4.35-5.85 Venous blood hemoglobin measurement (mass/volume) 11.0 g/dL 11.5-16.0 Blood hematocrit (volume fraction) 34 % 35-52 Automated erythrocyte mean corpuscular volume 94 [ foz_us] 80-99 Automated erythrocyte mean corpuscular h emoglobin (mass per erythrocyte) 30 pg 25-34 Automated erythrocyte mean corpuscular h emoglobin concentration measurement (mass/volume) 32 g/dL 32-36 Automated erythrocyte distribution width ratio 16. 1 % 10.0- 14.5 Automated blood platelet count (count/volume) 112 10*3/uL 130-400 Automated blood platelet mean volume measurement 11.0 [foz_us] 7.4-10.4 Automated blood neutrophils/100 leukocytes 63 % 42-75 Automated blood lymphocytes/100 leukocytes 22 % 12-44 Blood monocytes/100 leukocytes 11 % 0-12 Automated blood eosinophils/100 leukocytes 3 % 0-10 Automated blood basophils/100 leukocytes 1 % 0-10 Blood neutrophils automated count (number/volume) 2.6 10*3 1.8-7.8 Blood lymphocytes automated count (number/volume) 0.9 10*3 1.0-4.0 Blood monocytes automated count (number/volume) 0. 5 10*3 0.0-1.0 Automated eosinophil count 0.1 10*3/uL 0 .0-0.3 Automated blood basophil count (count/volume) 0.0 10*3/uL 0.0-0.1 Comprehensive metabolic panel - 06/02/18 08:00 Serum or plasma sodium measurement (moles/volume) 143 mmol/L 135-145 Serum or plasma potassium measurement (moles/volume) 3.6 mmol/L 3.6-5.0 Serum or plasma chloride measurement (moles/volume) 105 mmol/L 98-107 Carbon dioxide 25 mmol/L 21-32 Serum or plasma anion gap determination (moles/volume) 13 mmol/L 5-14 Serum or plasma urea nitrogen measurement (mass/volume ) 14 mg/dL 7-18 Serum or plasma creatinine measurement (mass/volume) 0.73 mg/dL 0.60-1.30 Serum or plasma urea nitrogen/creatinine mass ratio 19 NRG Serum or plasma creatinine measurement w ith calculation of estimated glomerular filtration rate > NRG Serum or plasma glucose measurement (mass/volume) 116 mg/dL 70-105 Serum or plasma calcium measurement (mass/volume) 8.3 mg/dL 8.5-10.1 Serum or plasma total bilirubin measurement (mass/volu me) 1.3 mg/dL 0.1-1.0 Serum or plasma alkaline phosphatase davion surement (enzymatic activity/volume) 75 U/L 40-136 Serum or plasma aspartate aminotransfera se measurement (enzymatic activity/volume) 21 U/L 5-34 Serum or plasma alanine aminotransferase measurement (enzymatic activity/volume) 12 U/L 0-55 Serum or plasma protein measurement (mass/volume) 6.4 g/dL 6.4-8.2 Serum or plasma albumin measurement (mass/volume) 3.1 g/dL 3.2-4.5 CALCIUM CORRECTED 9.0 mg/dL 8.5-10.1 Magnesium - 06/02/18 08:00 Magnesium 1.0 mg/dL 1.8-2.4 PT panel in platelet poor plasma by coag ulation assay - 06/02/18 08:00 Prothrombin time (PT) in platelet poor plasma by coagu lation assay 21.6 s 12.2-14.7 INR in platelet poor plasma or blood by coagulation as say 1.9 0.8-1.4 Activated partial thromboplastin time (a PTT) in platelet poor plasma bycoagulation assay - 06/02/18 08:00 Activated partial thromboplastin time (a PTT) in platelet poor plasma bycoagulation assay 36 s 24-35 Fibrin D-dimer FEU measurement in platel et poor plasma (mass/volume) - 06/02/18 08:00 Fibrin D-dimer FEU measurement in platelet poor plasma (mass/volume) 0.76 ug/mL 0.00-0.49 Serum or plasma troponin i.cardiac measu rement (mass/volume) - 06/02/18 08:00 Serum or plasma troponin i.cardiac measurement (mass/v olume) < ng/mL <0.30 Serum or plasma thyrotropin measurement by detection limit <=0.05 miu/l (units/volume) - 06/02/18 08:00 Serum or plasma thyrotropin measurement by detection limit <=0.05 miu/l (units/volume) 1.33 u[iU]/mL 0.35-4.94 Complete urinalysis with reflex to cultu re - 06/02/18 08:35 Urine color determination YELLOW NRG Urine clarity determination CLEAR NR G Urine pH measurement by test strip 9 5-9 Specific gravity of urine by test strip 1.015 1.016-1.022 Urine protein assay by test strip, semi-quantitative NEGATIVE NEGATIVE Urine glucose detection by automated test strip NE GATIVE NEGATIVE Erythrocytes detection in urine sediment by light micr oscopy NEGATIVE NEGATIVE Urine ketones detection by automated test strip NE GATIVE NEGATIVE Urine nitrite detection by test strip NEGATIVE NEGATIVE Urine total bilirubin detection by test strip NEGA TIVE NEGATIVE Urine urobilinogen measurement by automated test strip (mass/volume) 1 mg/dL NORMAL Urine leukocyte esterase detection by dipstick NEG ATIVE NEGATIVE Automated urine sediment erythrocyte cou nt by microscopy (number/high power field) NONE NRG Automated urine sediment leukocyte count by microscopy (number/high power field) NONE NRG Bacteria detection in urine sediment by light microsco py NEGATIVE NRG Squamous epithelial cells detection in u rine sediment by light microscopy 0-2 NRG Crystals detection in urine sediment by light microsco py NONE NRG Casts detection in urine sediment by light microscopy NONE NRG Mucus detection in urine sediment by light microscopy NEGATIVE NRG Complete urinalysis with reflex to culture NO NRG Bacterial blood culture - 06/02/18 10:30 Bacterial blood culture NG NRG Capillary blood glucose measurement by g lucometer (mass/volume) - 06/02/18 10:35 Capillary blood glucose measurement by glucometer (mas s/volume) 107 mg/dL 70-110 Blood lactic acid measurement (moles/vol ume) - 06/02/18 14:21 Blood lactic acid measurement (moles/volume) 1.65 mmol/L 0.50-2.00 Bacterial blood culture - 06/02/18 14:21 Bacterial blood culture NG NRG Complete blood count (CBC) with automate d white blood cell (WBC) differential - 06/03/18 02:40 Blood leukocytes automated count (number/volume) 4.6 10*3/uL 4.3-11.0 Blood erythrocytes automated count (number/volume) 3.24 10*6/uL 4.35-5.85 Venous blood hemoglobin measurement (mass/volume) 10.2 g/dL 11.5-16.0 Blood hematocrit (volume fraction) 31 % 35-52 Automated erythrocyte mean corpuscular volume 94 [ foz_us] 80-99 Automated erythrocyte mean corpuscular h emoglobin (mass per erythrocyte) 32 pg 25-34 Automated erythrocyte mean corpuscular h emoglobin concentration measurement (mass/volume) 33 g/dL 32-36 Automated erythrocyte distribution width ratio 15. 8 % 10.0- 14.5 Automated blood platelet count (count/volume) 105 10*3/uL 130-400 Automated blood platelet mean volume measurement 10.7 [foz_us] 7.4-10.4 Automated blood neutrophils/100 leukocytes 68 % 42-75 Automated blood lymphocytes/100 leukocytes 18 % 12-44 Blood monocytes/100 leukocytes 9 % 0-12 Automated blood eosinophils/100 leukocytes 5 % 0-10 Automated blood basophils/100 leukocytes 1 % 0-10 Blood neutrophils automated count (number/volume) 3.1 10*3 1.8-7.8 Blood lymphocytes automated count (number/volume) 0.8 10*3 1.0-4.0 Blood monocytes automated count (number/volume) 0. 4 10*3 0.0-1.0 Automated eosinophil count 0.2 10*3/uL 0 .0-0.3 Automated blood basophil count (count/volume) 0.0 10*3/uL 0.0-0.1 Whole blood basic metabolic panel - 12/16 02:40 Serum or plasma sodium measurement (moles/volume) 142 mmol/L 135-145 Serum or plasma potassium measurement (moles/volume) 3.4 mmol/L 3.6-5.0 Serum or plasma chloride measurement (moles/volume) 106 mmol/L 98-107 Carbon dioxide 26 mmol/L 21-32 Serum or plasma anion gap determination (moles/volume) 10 mmol/L 5-14 Serum or plasma urea nitrogen measurement (mass/volume ) 12 mg/dL 7-18 Serum or plasma creatinine measurement (mass/volume) 0.61 mg/dL 0.60-1.30 Serum or plasma urea nitrogen/creatinine mass ratio 20 NRG Serum or plasma creatinine measurement w ith calculation of estimated glomerular filtration rate > NRG Serum or plasma glucose measurement (mass/volume) 102 mg/dL 70-105 Serum or plasma calcium measurement (mass/volume) 8.0 mg/dL 8.5-10.1 Serum or plasma phosphate measurement (m ass/volume) - 06/03/18 02:40 Serum or plasma phosphate measurement (mass/volume) 2.8 mg/dL 2.3-4.7 Magnesium - 06/03/18 02:40 Magnesium 1.5 mg/dL 1.8-2.4 Lipid 1996 panel - 06/03/18 02:40 Serum or plasma triglyceride measurement (mass/volume) 49 mg/dL <150 Serum or plasma cholesterol measurement (mass/volume) 94 mg/dL < 200 Serum or plasma cholesterol in HDL measurement (mass/v olume) 36 mg/dL 40-60 Cholesterol in LDL [mass/volume] in serum or plasma by direct assay 50 mg/dL 1-129 Serum or plasma cholesterol in VLDL measurement (mass/ volume) 10 mg/dL 5-40 Methicillin resistant Staphylococcus aur eus (MRSA) screening culture - 06/03/18 07:54 Methicillin resistant Staphylococcus aureus (MRSA) scr eening culture NEG NRG Complete blood count (CBC) with automate d white blood cell (WBC) differential - 06/04/18 03:12 Blood leukocytes automated count (number/volume) 4.1 10*3/uL 4.3-11.0 Blood erythrocytes automated count (number/volume) 3.29 10*6/uL 4.35-5.85 Venous blood hemoglobin measurement (mass/volume) 10.0 g/dL 11.5-16.0 Blood hematocrit (volume fraction) 31 % 35-52 Automated erythrocyte mean corpuscular volume 95 [ foz_us] 80-99 Automated erythrocyte mean corpuscular h emoglobin (mass per erythrocyte) 30 pg 25-34 Automated erythrocyte mean corpuscular h emoglobin concentration measurement (mass/volume) 32 g/dL 32-36 Automated erythrocyte distribution width ratio 15. 8 % 10.0- 14.5 Automated blood platelet count (count/volume) 112 10*3/uL 130-400 Automated blood platelet mean volume measurement 10.6 [foz_us] 7.4-10.4 Automated blood neutrophils/100 leukocytes 65 % 42-75 Automated blood lymphocytes/100 leukocytes 21 % 12-44 Blood monocytes/100 leukocytes 8 % 0-12 Automated blood eosinophils/100 leukocytes 6 % 0-10 Automated blood basophils/100 leukocytes 1 % 0-10 Blood neutrophils automated count (number/volume) 2.7 10*3 1.8-7.8 Blood lymphocytes automated count (number/volume) 0.9 10*3 1.0-4.0 Blood monocytes automated count (number/volume) 0. 3 10*3 0.0-1.0 Automated eosinophil count 0.2 10*3/uL 0 .0-0.3 Automated blood basophil count (count/volume) 0.0 10*3/uL 0.0-0.1 Whole blood basic metabolic panel - 01/15 03:12 Serum or plasma sodium measurement (moles/volume) 142 mmol/L 135-145 Serum or plasma potassium measurement (moles/volume) 3.6 mmol/L 3.6-5.0 Serum or plasma chloride measurement (moles/volume) 108 mmol/L 98-107 Carbon dioxide 26 mmol/L 21-32 Serum or plasma anion gap determination (moles/volume) 8 mmol/L 5-14 Serum or plasma urea nitrogen measurement (mass/volume ) 11 mg/dL 7-18 Serum or plasma creatinine measurement (mass/volume) 0.60 mg/dL 0.60-1.30 Serum or plasma urea nitrogen/creatinine mass ratio 18 NRG Serum or plasma creatinine measurement w ith calculation of estimated glomerular filtration rate > NRG Serum or plasma glucose measurement (mass/volume) 78 mg/dL 70-105 Serum or plasma calcium measurement (mass/volume) 8.1 mg/dL 8.5-10.1 Serum or plasma phosphate measurement (m ass/volume) - 06/04/18 03:12 Serum or plasma phosphate measurement (mass/volume) 2.9 mg/dL 2.3-4.7 Magnesium - 06/04/18 03:12 Magnesium 1.8 mg/dL 1.8-2.4 Complete blood count (CBC) with automate d white blood cell (WBC) differential - 06/05/18 04:52 Blood leukocytes automated count (number/volume) 3.5 10*3/uL 4.3-11.0 Blood erythrocytes automated count (number/volume) 2.90 10*6/uL 4.35-5.85 Venous blood hemoglobin measurement (mass/volume) 9.2 g/dL 11.5-16.0 Blood hematocrit (volume fraction) 28 % 35-52 Automated erythrocyte mean corpuscular volume 95 [ foz_us] 80-99 Automated erythrocyte mean corpuscular h emoglobin (mass per erythrocyte) 32 pg 25-34 Automated erythrocyte mean corpuscular h emoglobin concentration measurement (mass/volume) 34 g/dL 32-36 Automated erythrocyte distribution width ratio 15. 3 % 10.0- 14.5 Automated blood platelet count (count/volume) 101 10*3/uL 130-400 Automated blood platelet mean volume measurement 10.5 [foz_us] 7.4-10.4 Automated blood neutrophils/100 leukocytes 62 % 42-75 Automated blood lymphocytes/100 leukocytes 22 % 12-44 Blood monocytes/100 leukocytes 10 % 0-12 Automated blood eosinophils/100 leukocytes 6 % 0-10 Automated blood basophils/100 leukocytes 1 % 0-10 Blood neutrophils automated count (number/volume) 2.2 10*3 1.8-7.8 Blood lymphocytes automated count (number/volume) 0.8 10*3 1.0-4.0 Blood monocytes automated count (number/volume) 0. 4 10*3 0.0-1.0 Automated eosinophil count 0.2 10*3/uL 0 .0-0.3 Automated blood basophil count (count/volume) 0.0 10*3/uL 0.0-0.1 Comprehensive metabolic panel - 06/05/18 04:52 Serum or plasma sodium measurement (moles/volume) 141 mmol/L 135-145 Serum or plasma potassium measurement (moles/volume) 3.6 mmol/L 3.6-5.0 Serum or plasma chloride measurement (moles/volume) 108 mmol/L 98-107 Carbon dioxide 25 mmol/L 21-32 Serum or plasma anion gap determination (moles/volume) 8 mmol/L 5-14 Serum or plasma urea nitrogen measurement (mass/volume ) 13 mg/dL 7-18 Serum or plasma creatinine measurement (mass/volume) 0.66 mg/dL 0.60-1.30 Serum or plasma urea nitrogen/creatinine mass ratio 20 NRG Serum or plasma creatinine measurement w ith calculation of estimated glomerular filtration rate > NRG Serum or plasma glucose measurement (mass/volume) 93 mg/dL 70-105 Serum or plasma calcium measurement (mass/volume) 8.0 mg/dL 8.5-10.1 Serum or plasma total bilirubin measurement (mass/volu me) 1.6 mg/dL 0.1-1.0 Serum or plasma alkaline phosphatase davion surement (enzymatic activity/volume) 63 U/L 40-136 Serum or plasma aspartate aminotransfera se measurement (enzymatic activity/volume) 17 U/L 5-34 Serum or plasma alanine aminotransferase measurement (enzymatic activity/volume) 9 U/L 0-55 Serum or plasma protein measurement (mass/volume) 5.1 g/dL 6.4-8.2 Serum or plasma albumin measurement (mass/volume) 2.5 g/dL 3.2-4.5 CALCIUM CORRECTED 9.2 mg/dL 8.5-10.1 Capillary blood glucose measurement by g lucometer (mass/volume) - 06/06/18 05:45 Capillary blood glucose measurement by glucometer (mas s/volume) 93 mg/dL 70-110 Capillary blood glucose measurement by g lucometer (mass/volume) - 06/07/18 05:22 Capillary blood glucose measurement by glucometer (mas s/volume) 113 mg/dL 70-110 Automated blood complete blood count (he mogram) panel - 06/07/18 09:55 Blood leukocytes automated count (number/volume) 3.8 10*3/uL 4.3-11.0 Blood erythrocytes automated count (number/volume) 2.82 10*6/uL 4.35-5.85 Venous blood hemoglobin measurement (mass/volume) 8.9 g/dL 11.5-16.0 Blood hematocrit (volume fraction) 27 % 35-52 Automated erythrocyte mean corpuscular volume 96 [ foz_us] 80-99 Automated erythrocyte mean corpuscular h emoglobin (mass per erythrocyte) 32 pg 25-34 Automated erythrocyte mean corpuscular h emoglobin concentration measurement (mass/volume) 33 g/dL 32-36 Automated erythrocyte distribution width ratio 15. 5 % 10.0- 14.5 Automated blood platelet count (count/volume) 105 10*3/uL 130-400 Automated blood platelet mean volume measurement 10.6 [foz_us] 7.4-10.4 PT panel in platelet poor plasma by coag ulation assay - 06/07/18 09:55 Prothrombin time (PT) in platelet poor plasma by coagu lation assay 25.1 s 12.2-14.7 INR in platelet poor plasma or blood by coagulation as say 2.3 0.8-1.4 Whole blood basic metabolic panel - 04/17 09:55 Serum or plasma sodium measurement (moles/volume) 142 mmol/L 135-145 Serum or plasma potassium measurement (moles/volume) 3.5 mmol/L 3.6-5.0 Serum or plasma chloride measurement (moles/volume) 107 mmol/L 98-107 Carbon dioxide 26 mmol/L 21-32 Serum or plasma anion gap determination (moles/volume) 9 mmol/L 5-14 Serum or plasma urea nitrogen measurement (mass/volume ) 13 mg/dL 7-18 Serum or plasma creatinine measurement (mass/volume) 0.69 mg/dL 0.60-1.30 Serum or plasma urea nitrogen/creatinine mass ratio 19 NRG Serum or plasma creatinine measurement w ith calculation of estimated glomerular filtration rate > NRG Serum or plasma glucose measurement (mass/volume) 123 mg/dL 70-105 Serum or plasma calcium measurement (mass/volume) 8.2 mg/dL 8.5-10.1 Capillary blood glucose measurement by g lucometer (mass/volume) - 06/08/18 05:36 Capillary blood glucose measurement by glucometer (mas s/volume) 102 mg/dL 70-110 Complete urinalysis with reflex to cultu re - 08/07/18 09:40 Urine color determination YELLOW NRG Urine clarity determination CLEAR NR G Urine pH measurement by test strip 8 5-9 Specific gravity of urine by test strip 1.010 1.016-1.022 Urine protein assay by test strip, semi-quantitative 1+ NEGATIVE Urine glucose detection by automated test strip NE GATIVE NEGATIVE Erythrocytes detection in urine sediment by light micr oscopy 2+ NEGATIVE Urine ketones detection by automated test strip NE GATIVE NEGATIVE Urine nitrite detection by test strip POSITIVE NEGATIVE Urine total bilirubin detection by test strip NEGA TIVE NEGATIVE Urine urobilinogen measurement by automated test strip (mass/volume) 4 mg/dL NORMAL Urine leukocyte esterase detection by dipstick 3+ NEGATIVE Automated urine sediment erythrocyte cou nt by microscopy (number/high power field) NONE NRG Automated urine sediment leukocyte count by microscopy (number/high power field) [HPF] NRG Bacteria detection in urine sediment by light microsco py FEW NRG Squamous epithelial cells detection in u rine sediment by light microscopy 5-10 NRG Crystals detection in urine sediment by light microsco py NONE NRG Casts detection in urine sediment by light microscopy PRESENT NRG Mucus detection in urine sediment by light microscopy NEGATIVE NRG Complete urinalysis with reflex to culture YES NRG Hyaline casts detection in urine sediment by light jasiel roscopy 5-10 NRG Bacterial urine culture - 08/07/18 09:40 Bacterial urine culture [id number] NRG COLONY COUNT >100,000/ML NRG FTX;REPORTABLE RML SENT SENSITIVITY REPORT 08/09 0 9:05 NRG FREE TEXT ENTRY 3 RML SENT ID REPORT 08/08 11:05 NRG RML Sensitivity Panel - 08/07/18 09:40 Gentamicin susceptibility test by minimum inhibitory c oncentration > NRG Trimethoprim/sulfamethoxazole susceptibi lity test by minimum inhibitoryconcentration > NRG Levofloxacin susceptibility test by minimum inhibitory concentration > NRG Ampicillin susceptibility test by minimum inhibitory c oncentration > NRG Cefazolin susceptibility test by minimum inhibitory co ncentration > NRG Ceftriaxone susceptibility test by minimum inhibitory concentration <= NRG Ciprofloxacin susceptibility test by minimum inhibitor y concentration > NRG Nitrofurantoin susceptibility test by mi nimum inhibitory concentration R NRG Amoxicillin and clavulanate potassium susc JASIEL > NRG Complete blood count (CBC) with automate d white blood cell (WBC) differential - 08/07/18 09:42 Blood leukocytes automated count (number/volume) 3.4 10*3/uL 4.3-11.0 Blood erythrocytes automated count (number/volume) 3.18 10*6/uL 4.35-5.85 Venous blood hemoglobin measurement (mass/volume) 9.9 g/dL 11.5-16.0 Blood hematocrit (volume fraction) 30 % 35-52 Automated erythrocyte mean corpuscular volume 95 [ foz_us] 80-99 Automated erythrocyte mean corpuscular h emoglobin (mass per erythrocyte) 31 pg 25-34 Automated erythrocyte mean corpuscular h emoglobin concentration measurement (mass/volume) 33 g/dL 32-36 Automated erythrocyte distribution width ratio 14. 4 % 10.0- 14.5 Automated blood platelet count (count/volume) 113 10*3/uL 130-400 Automated blood platelet mean volume measurement 9.8 [foz_us] 7.4-10.4 Automated blood neutrophils/100 leukocytes 58 % 42-75 Automated blood lymphocytes/100 leukocytes 28 % 12-44 Blood monocytes/100 leukocytes 9 % 0-12 Automated blood eosinophils/100 leukocytes 5 % 0-10 Automated blood basophils/100 leukocytes 1 % 0-10 Blood neutrophils automated count (number/volume) 2.0 10*3 1.8-7.8 Blood lymphocytes automated count (number/volume) 1.0 10*3 1.0-4.0 Blood monocytes automated count (number/volume) 0. 3 10*3 0.0-1.0 Automated eosinophil count 0.2 10*3/uL 0 .0-0.3 Automated blood basophil count (count/volume) 0.0 10*3/uL 0.0-0.1 Comprehensive metabolic panel - 08/07/18 09:42 Serum or plasma sodium measurement (moles/volume) 142 mmol/L 135-145 Serum or plasma potassium measurement (moles/volume) 4.0 mmol/L 3.6-5.0 Serum or plasma chloride measurement (moles/volume) 105 mmol/L 98-107 Carbon dioxide 29 mmol/L 21-32 Serum or plasma anion gap determination (moles/volume) 8 mmol/L 5-14 Serum or plasma urea nitrogen measurement (mass/volume ) 14 mg/dL 7-18 Serum or plasma creatinine measurement (mass/volume) 0.78 mg/dL 0.60-1.30 Serum or plasma urea nitrogen/creatinine mass ratio 18 NRG Serum or plasma creatinine measurement w ith calculation of estimated glomerular filtration rate > NRG Serum or plasma glucose measurement (mass/volume) 125 mg/dL 70-105 Serum or plasma calcium measurement (mass/volume) 9.1 mg/dL 8.5-10.1 Serum or plasma total bilirubin measurement (mass/volu me) 1.1 mg/dL 0.1-1.0 Serum or plasma alkaline phosphatase davion surement (enzymatic activity/volume) 76 U/L 40-136 Serum or plasma aspartate aminotransfera se measurement (enzymatic activity/volume) 19 U/L 5-34 Serum or plasma alanine aminotransferase measurement (enzymatic activity/volume) 12 U/L 0-55 Serum or plasma protein measurement (mass/volume) 6.2 g/dL 6.4-8.2 Serum or plasma albumin measurement (mass/volume) 3.1 g/dL 3.2-4.5 CALCIUM CORRECTED 9.8 mg/dL 8.5-10.1 Complete urinalysis with reflex to cultu re - 11/25/18 11:28 Urine color determination YELLOW NRG Urine clarity determination CLEAR NR G Urine pH measurement by test strip 8 5-9 Specific gravity of urine by test strip 1.010 1.016-1.022 Urine protein assay by test strip, semi-quantitative NEGATIVE NEGATIVE Urine glucose detection by automated test strip NE GATIVE NEGATIVE Erythrocytes detection in urine sediment by light micr oscopy NEGATIVE NEGATIVE Urine ketones detection by automated test strip NE GATIVE NEGATIVE Urine nitrite detection by test strip NEGATIVE NEGATIVE Urine total bilirubin detection by test strip NEGA TIVE NEGATIVE Urine urobilinogen measurement by automated test strip (mass/volume) NORMAL NORMAL Urine leukocyte esterase detection by dipstick NEG ATIVE NEGATIVE Automated urine sediment erythrocyte cou nt by microscopy (number/high power field) NONE NRG Automated urine sediment leukocyte count by microscopy (number/high power field) NONE NRG Bacteria detection in urine sediment by light microsco py NEGATIVE NRG Squamous epithelial cells detection in u rine sediment by light microscopy 0-2 NRG Crystals detection in urine sediment by light microsco py NONE NRG Casts detection in urine sediment by light microscopy NONE NRG Mucus detection in urine sediment by light microscopy NEGATIVE NRG Complete urinalysis with reflex to culture NO NRG Magnesium - 11/25/18 11:45 Magnesium 1.4 mg/dL 1.8-2.4 Serum or plasma thyrotropin measurement by detection limit <=0.05 miu/l (units/volume) - 11/25/18 11:45 Serum or plasma thyrotropin measurement by detection limit <=0.05 miu/l (units/volume) 1.44 u[iU]/mL 0.35-4.94 Complete blood count (CBC) with automate d white blood cell (WBC) differential - 11/25/18 12:00 Blood leukocytes automated count (number/volume) 4.5 10*3/uL 4.3-11.0 Blood erythrocytes automated count (number/volume) 3.23 10*6/uL 4.35-5.85 Venous blood hemoglobin measurement (mass/volume) 10.1 g/dL 11.5-16.0 Blood hematocrit (volume fraction) 30 % 35-52 Automated erythrocyte mean corpuscular volume 94 [ foz_us] 80-99 Automated erythrocyte mean corpuscular h emoglobin (mass per erythrocyte) 31 pg 25-34 Automated erythrocyte mean corpuscular h emoglobin concentration measurement (mass/volume) 33 g/dL 32-36 Automated erythrocyte distribution width ratio 14. 3 % 10.0- 14.5 Automated blood platelet count (count/volume) 109 10*3/uL 130-400 Automated blood platelet mean volume measurement 9.8 [foz_us] 7.4-10.4 Automated blood neutrophils/100 leukocytes 60 % 42-75 Automated blood lymphocytes/100 leukocytes 26 % 12-44 Blood monocytes/100 leukocytes 9 % 0-12 Automated blood eosinophils/100 leukocytes 5 % 0-10 Automated blood basophils/100 leukocytes 0 % 0-10 Blood neutrophils automated count (number/volume) 2.7 10*3 1.8-7.8 Blood lymphocytes automated count (number/volume) 1.2 10*3 1.0-4.0 Blood monocytes automated count (number/volume) 0. 4 10*3 0.0-1.0 Automated eosinophil count 0.2 10*3/uL 0 .0-0.3 Automated blood basophil count (count/volume) 0.0 10*3/uL 0.0-0.1 Comprehensive metabolic panel - 11/25/18 12:00 Serum or plasma sodium measurement (moles/volume) 141 mmol/L 135-145 Serum or plasma potassium measurement (moles/volume) 3.8 mmol/L 3.6-5.0 Serum or plasma chloride measurement (moles/volume) 106 mmol/L 98-107 Carbon dioxide 30 mmol/L 21-32 Serum or plasma anion gap determination (moles/volume) 5 mmol/L 5-14 Serum or plasma urea nitrogen measurement (mass/volume ) 18 mg/dL 7-18 Serum or plasma creatinine measurement (mass/volume) 0.85 mg/dL 0.60-1.30 Serum or plasma urea nitrogen/creatinine mass ratio 21 NRG Serum or plasma creatinine measurement w ith calculation of estimated glomerular filtration rate > NRG Serum or plasma glucose measurement (mass/volume) 140 mg/dL 70-105 Serum or plasma calcium measurement (mass/volume) 9.3 mg/dL 8.5-10.1 Serum or plasma total bilirubin measurement (mass/volu me) 0.8 mg/dL 0.1-1.0 Serum or plasma alkaline phosphatase davion surement (enzymatic activity/volume) 62 U/L 40-136 Serum or plasma aspartate aminotransfera se measurement (enzymatic activity/volume) 20 U/L 5-34 Serum or plasma alanine aminotransferase measurement (enzymatic activity/volume) 14 U/L 0-55 Serum or plasma protein measurement (mass/volume) 6.0 g/dL 6.4-8.2 Serum or plasma albumin measurement (mass/volume) 2.9 g/dL 3.2-4.5 CALCIUM CORRECTED 10.2 mg/dL 8.5-10.1 Complete blood count (CBC) with automate d white blood cell (WBC) differential - 01/08/19 10:23 Blood leukocytes automated count (number/volume) 7.4 10*3/uL 4.3-11.0 Blood erythrocytes automated count (number/volume) 1.97 10*6/uL 4.35-5.85 Venous blood hemoglobin measurement (mass/volume) 6.3 g/dL 11.5-16.0 Blood hematocrit (volume fraction) 20 % 35-52 Automated erythrocyte mean corpuscular volume 101 [foz_us] 80-99 Automated erythrocyte mean corpuscular h emoglobin (mass per erythrocyte) 32 pg 25-34 Automated erythrocyte mean corpuscular h emoglobin concentration measurement (mass/volume) 32 g/dL 32-36 Automated erythrocyte distribution width ratio 15. 8 % 10.0- 14.5 Automated blood platelet count (count/volume) 198 10*3/uL 130-400 Automated blood platelet mean volume measurement 10.0 [foz_us] 7.4-10.4 Automated blood neutrophils/100 leukocytes 70 % 42-75 Automated blood lymphocytes/100 leukocytes 19 % 12-44 Blood monocytes/100 leukocytes 8 % 0-12 Automated blood eosinophils/100 leukocytes 3 % 0-10 Automated blood basophils/100 leukocytes 0 % 0-10 Blood neutrophils automated count (number/volume) 5.2 10*3 1.8-7.8 Blood lymphocytes automated count (number/volume) 1.4 10*3 1.0-4.0 Blood monocytes automated count (number/volume) 0. 6 10*3 0.0-1.0 Automated eosinophil count 0.2 10*3/uL 0 .0-0.3 Automated blood basophil count (count/volume) 0.0 10*3/uL 0.0-0.1 Comprehensive metabolic panel - 01/08/19 10:23 Serum or plasma sodium measurement (moles/volume) 144 mmol/L 135-145 Serum or plasma potassium measurement (moles/volume) 5.0 mmol/L 3.6-5.0 Serum or plasma chloride measurement (moles/volume) 105 mmol/L 98-107 Carbon dioxide 25 mmol/L 21-32 Serum or plasma anion gap determination (moles/volume) 14 mmol/L 5-14 Serum or plasma urea nitrogen measurement (mass/volume ) 39 mg/dL 7-18 Serum or plasma creatinine measurement (mass/volume) 1.17 mg/dL 0.60-1.30 Serum or plasma urea nitrogen/creatinine mass ratio 33 NRG Serum or plasma creatinine measurement w ith calculation of estimated glomerular filtration rate 45 NRG Serum or plasma glucose measurement (mass/volume) 166 mg/dL 70-105 Serum or plasma calcium measurement (mass/volume) 8.9 mg/dL 8.5-10.1 Serum or plasma total bilirubin measurement (mass/volu me) 1.5 mg/dL 0.1-1.0 Serum or plasma alkaline phosphatase davion surement (enzymatic activity/volume) 65 U/L 40-136 Serum or plasma aspartate aminotransfera se measurement (enzymatic activity/volume) 20 U/L 5-34 Serum or plasma alanine aminotransferase measurement (enzymatic activity/volume) 19 U/L 0-55 Serum or plasma protein measurement (mass/volume) 5.5 g/dL 6.4-8.2 Serum or plasma albumin measurement (mass/volume) 2.8 g/dL 3.2-4.5 CALCIUM CORRECTED 9.9 mg/dL 8.5-10.1 Serum or plasma troponin i.cardiac measu rement (mass/volume) - 01/08/19 10:23 Serum or plasma troponin i.cardiac measurement (mass/v olume) < ng/mL <0.028 Magnesium - 01/08/19 10:23 Magnesium 1.8 mg/dL 1.8-2.4 Complete urinalysis with reflex to cultu re - 01/08/19 10:37 Urine color determination YELLOW NRG Urine clarity determination CLEAR NR G Urine pH measurement by test strip 6 5-9 Specific gravity of urine by test strip 1.010 1.016-1.022 Urine protein assay by test strip, semi-quantitative 1+ NEGATIVE Urine glucose detection by automated test strip NE GATIVE NEGATIVE Erythrocytes detection in urine sediment by light micr oscopy 2+ NEGATIVE Urine ketones detection by automated test strip NE GATIVE NEGATIVE Urine nitrite detection by test strip NEGATIVE NEGATIVE Urine total bilirubin detection by test strip NEGA TIVE NEGATIVE Urine urobilinogen measurement by automated test strip (mass/volume) 1 mg/dL NORMAL Urine leukocyte esterase detection by dipstick 2+ NEGATIVE Automated urine sediment erythrocyte cou nt by microscopy (number/high power field) RARE NRG Automated urine sediment leukocyte count by microscopy (number/high power field) [HPF] NRG Bacteria detection in urine sediment by light microsco py FEW NRG Squamous epithelial cells detection in u rine sediment by light microscopy 2-5 NRG Crystals detection in urine sediment by light microsco py NONE NRG Casts detection in urine sediment by light microscopy NONE NRG Mucus detection in urine sediment by light microscopy SMALL NRG Complete urinalysis with reflex to culture YES NRG Bacterial urine culture - 01/08/19 10:37 Bacterial urine culture 3 OR MORE NRG COLONY COUNT >100,000/ML NRG FTX;REPORTABLE SUGGESTING PROBABLE COLLECTION NRG FREE TEXT ENTRY 2 CONTAMINTION WITH SKIN DIANE NRG FREE TEXT ENTRY 3 NO SUSCEPTIBILITY PERFORMED NRG Blood type T Indirect antibody screen pa chloe - 01/08/19 11:15 ABO+Rh group ON NRG Transfusion band number [id number] NRG Blood group antibody screen NEGATIVE NR G Blood lactic acid measurement (moles/vol ume) - 01/08/19 11:15 Blood lactic acid measurement (moles/volume) 2.51 mmol/L 0.50-2.00 PT panel in platelet poor plasma by coag ulation assay - 01/08/19 11:15 Prothrombin time (PT) in platelet poor plasma by coagu lation assay > s 12.2-14.7 INR in platelet poor plasma or blood by coagulation as say TNP 0.8-1.4 Activated partial thromboplastin time (a PTT) in platelet poor plasma bycoagulation assay - 01/08/19 11:15 Activated partial thromboplastin time (a PTT) in platelet poor plasma bycoagulation assay 172 s 24-35 Fibrin D-dimer FEU measurement in platel et poor plasma (mass/volume) - 01/08/19 11:15 Fibrin D-dimer FEU measurement in platelet poor plasma (mass/volume) 1.10 ug/mL 0.00-0.49 FRESH FROZEN PLASMA - 01/08/19 11:15 FRESH FROZEN PLASMA TRANSFUSE D 01/08/197 NRG RED CELLS LEUKO REDUCED AS1 - 01/08/19 1 1:15 RED CELLS LEUKO REDUCED AS1 N OT AVAILABLE NRG Blood type T Indirect antibody screen pa chloe - 01/08/19 11:15 ABO+Rh group ON NRG Transfusion band number [id number] NRG Blood group antibody screen NEGATIVE NR G Bacterial blood culture - 01/08/19 11:15 Bacterial blood culture NG NRG Bacterial blood culture - 01/08/19 12:33 Bacterial blood culture NG NRG Serum or plasma lactate measurement (mol es/volume) - 01/08/19 14:35 Serum or plasma lactate measurement (moles/volume) 2.59 mmol/L 0.50-2.00 Serum iron and total iron binding capaci ty panel - 01/08/19 14:35 Serum or plasma iron measurement (mass/volume) 40 % 35-180 Total iron binding capacity and transferrin saturation measurement 23 % 15-50 Iron binding capacity [mass/volume] in serum or plasma 177 % 280-380 UIBC (unsaturated iron binding capacity) 137 % 55-450 Serum or plasma ferritin measurement (mass/volume) 146.4 % 20.0-177.0 Capillary blood glucose measurement by g lucometer (mass/volume) - 01/08/19 15:58 Capillary blood glucose measurement by glucometer (mas s/volume) 126 mg/dL 70-110 Capillary blood glucose measurement by g lucometer (mass/volume) - 01/08/19 20:59 Capillary blood glucose measurement by glucometer (mas s/volume) 126 mg/dL 70-110 Capillary blood glucose measurement by g lucometer (mass/volume) - 01/09/19 05:26 Capillary blood glucose measurement by glucometer (mas s/volume) 121 mg/dL 70-110 Complete blood count (CBC) with automate d white blood cell (WBC) differential - 01/09/19 07:02 Blood leukocytes automated count (number/volume) 5.8 10*3/uL 4.3-11.0 Blood erythrocytes automated count (number/volume) 2.16 10*6/uL 4.35-5.85 Venous blood hemoglobin measurement (mass/volume) 6.9 g/dL 11.5-16.0 Blood hematocrit (volume fraction) 21 % 35-52 Automated erythrocyte mean corpuscular volume 97 [ foz_us] 80-99 Automated erythrocyte mean corpuscular h emoglobin (mass per erythrocyte) 32 pg 25-34 Automated erythrocyte mean corpuscular h emoglobin concentration measurement (mass/volume) 33 g/dL 32-36 Automated erythrocyte distribution width ratio 15. 8 % 10.0- 14.5 Automated blood platelet count (count/volume) 132 10*3/uL 130-400 Automated blood platelet mean volume measurement 9.8 [foz_us] 7.4-10.4 Automated blood neutrophils/100 leukocytes 74 % 42-75 Automated blood lymphocytes/100 leukocytes 14 % 12-44 Blood monocytes/100 leukocytes 9 % 0-12 Automated blood eosinophils/100 leukocytes 4 % 0-10 Automated blood basophils/100 leukocytes 0 % 0-10 Blood neutrophils automated count (number/volume) 4.3 10*3 1.8-7.8 Blood lymphocytes automated count (number/volume) 0.8 10*3 1.0-4.0 Blood monocytes automated count (number/volume) 0. 5 10*3 0.0-1.0 Automated eosinophil count 0.2 10*3/uL 0 .0-0.3 Automated blood basophil count (count/volume) 0.0 10*3/uL 0.0-0.1 Comprehensive metabolic panel - 01/09/19 07:02 Serum or plasma sodium measurement (moles/volume) 144 mmol/L 135-145 Serum or plasma potassium measurement (moles/volume) 4.5 mmol/L 3.6-5.0 Serum or plasma chloride measurement (moles/volume) 107 mmol/L 98-107 Carbon dioxide 26 mmol/L 21-32 Serum or plasma anion gap determination (moles/volume) 11 mmol/L 5-14 Serum or plasma urea nitrogen measurement (mass/volume ) 37 mg/dL 7-18 Serum or plasma creatinine measurement (mass/volume) 1.00 mg/dL 0.60-1.30 Serum or plasma urea nitrogen/creatinine mass ratio 37 NRG Serum or plasma creatinine measurement w ith calculation of estimated glomerular filtration rate 53 NRG Serum or plasma glucose measurement (mass/volume) 116 mg/dL 70-105 Serum or plasma calcium measurement (mass/volume) 8.9 mg/dL 8.5-10.1 Serum or plasma total bilirubin measurement (mass/volu me) 2.2 mg/dL 0.1-1.0 Serum or plasma alkaline phosphatase davion surement (enzymatic activity/volume) 66 U/L 40-136 Serum or plasma aspartate aminotransfera se measurement (enzymatic activity/volume) 22 U/L 5-34 Serum or plasma alanine aminotransferase measurement (enzymatic activity/volume) 16 U/L 0-55 Serum or plasma protein measurement (mass/volume) 5.5 g/dL 6.4-8.2 Serum or plasma albumin measurement (mass/volume) 2.8 g/dL 3.2-4.5 CALCIUM CORRECTED 9.9 mg/dL 8.5-10.1 Lipid 1996 panel - 01/09/19 07:02 Serum or plasma triglyceride measurement (mass/volume) 87 mg/dL <150 Serum or plasma cholesterol measurement (mass/volume) 104 mg/dL < 200 Serum or plasma cholesterol in HDL measurement (mass/v olume) 29 mg/dL 40-60 Cholesterol in LDL [mass/volume] in serum or plasma by direct assay 59 mg/dL 1-129 Serum or plasma cholesterol in VLDL measurement (mass/ volume) 17 mg/dL 5-40 PT panel in platelet poor plasma by coag ulation assay - 01/09/19 08:14 Prothrombin time (PT) in platelet poor plasma by coagu lation assay 29.7 s 12.2-14.7 INR in platelet poor plasma or blood by coagulation as say 2.7 0.8-1.4 Capillary blood glucose measurement by g lucometer (mass/volume) - 01/09/19 11:31 Capillary blood glucose measurement by glucometer (mas s/volume) 217 mg/dL 70-110 Whole blood hemoglobin and hematocrit tanya olearyl - 01/09/19 13:00 Venous blood hemoglobin measurement (mass/volume) 8.1 g/dL 11.5-16.0 Blood hematocrit (volume fraction) 25 % 35-52 Capillary blood glucose measurement by g lucometer (mass/volume) - 01/09/19 16:12 Capillary blood glucose measurement by glucometer (mas s/volume) 183 mg/dL 70-110 Capillary blood glucose measurement by g lucometer (mass/volume) - 01/09/19 20:03 Capillary blood glucose measurement by glucometer (mas s/volume) 117 mg/dL 70-110 Whole blood hemoglobin and hematocrit tanya olearyl - 01/09/19 23:45 Venous blood hemoglobin measurement (mass/volume) 8.5 g/dL 11.5-16.0 Blood hematocrit (volume fraction) 26 % 35-52 Whole blood hemoglobin and hematocrit [facility] - 01/10/19 05:50 Venous blood hemoglobin measurement (mass/volume) 8.7 g/dL 11.5-16.0 Blood hematocrit (volume fraction) 26 % 35-52 Capillary blood glucose measurement by g lucometer (mass/volume) - 01/10/19 05:50 Capillary blood glucose measurement by glucometer (mas s/volume) 114 mg/dL 70-110 Magnesium - 01/10/19 09:15 Magnesium 1.6 mg/dL 1.8-2.4 Capillary blood glucose measurement by g lucometer (mass/volume) - 01/10/19 11:21 Capillary blood glucose measurement by glucometer (mas s/volume) 99 mg/dL 70-110 Whole blood hemoglobin and hematocrit [facility] - 01/10/19 13:06 Venous blood hemoglobin measurement (mass/volume) 8.8 g/dL 11.5-16.0 Blood hematocrit (volume fraction) 27 % 35-52 Capillary blood glucose measurement by g lucometer (mass/volume) - 01/10/19 15:26 Capillary blood glucose measurement by glucometer (mas s/volume) 134 mg/dL 70-110 Capillary blood glucose measurement by g lucometer (mass/volume) - 01/10/19 20:30 Capillary blood glucose measurement by glucometer (mas s/volume) 154 mg/dL 70-110 Automated blood complete blood count ( mogram) panel - 01/11/19 05:50 Blood leukocytes automated count (number/volume) 4.6 10*3/uL 4.3-11.0 Blood erythrocytes automated count (number/volume) 2.69 10*6/uL 4.35-5.85 Venous blood hemoglobin measurement (mass/volume) 8.5 g/dL 11.5-16.0 Blood hematocrit (volume fraction) 26 % 35-52 Automated erythrocyte mean corpuscular volume 98 [ foz_us] 80-99 Automated erythrocyte mean corpuscular h emoglobin (mass per erythrocyte) 32 pg 25-34 Automated erythrocyte mean corpuscular h emoglobin concentration measurement (mass/volume) 32 g/dL 32-36 Automated erythrocyte distribution width ratio 16. 1 % 10.0- 14.5 Automated blood platelet count (count/volume) 126 10*3/uL 130-400 Automated blood platelet mean volume measurement 9.9 [foz_us] 7.4-10.4 PT panel in platelet poor plasma by coag ulation assay - 01/11/19 05:50 Prothrombin time (PT) in platelet poor plasma by coagu lation assay 32.2 s 12.2-14.7 INR in platelet poor plasma or blood by coagulation as say 3.0 0.8-1.4 Whole blood basic metabolic panel - 12/29 12/17 05:50 Serum or plasma sodium measurement (moles/volume) 144 mmol/L 135-145 Serum or plasma potassium measurement (moles/volume) 4.2 mmol/L 3.6-5.0 Serum or plasma chloride measurement (moles/volume) 113 mmol/L 98-107 Carbon dioxide 23 mmol/L 21-32 Serum or plasma anion gap determination (moles/volume) 8 mmol/L 5-14 Serum or plasma urea nitrogen measurement (mass/volume ) 28 mg/dL 7-18 Serum or plasma creatinine measurement (mass/volume) 0.75 mg/dL 0.60-1.30 Serum or plasma urea nitrogen/creatinine mass ratio 37 NRG Serum or plasma creatinine measurement w ith calculation of estimated glomerular filtration rate > NRG Serum or plasma glucose measurement (mass/volume) 101 mg/dL 70-105 Serum or plasma calcium measurement (mass/volume) 8.0 mg/dL 8.5-10.1 Capillary blood glucose measurement by g lucometer (mass/volume) - 01/11/19 05:51 Capillary blood glucose measurement by glucometer (mas s/volume) 110 mg/dL 70-110 Stool occult blood screen - 01/11/19 09: 45 Stool gastrointestinal hemoglobin detection POSITI VE NEGATIVE Capillary blood glucose measurement by g lucometer (mass/volume) - 01/11/19 11:54 Capillary blood glucose measurement by glucometer (mas s/volume) 127 mg/dL 70-110 Capillary blood glucose measurement by g lucometer (mass/volume) - 01/11/19 15:49 Capillary blood glucose measurement by glucometer (mas s/volume) 161 mg/dL 70-110 Capillary blood glucose measurement by g lucometer (mass/volume) - 01/11/19 20:38 Capillary blood glucose measurement by glucometer (mas s/volume) 156 mg/dL 70-110 Complete blood count (CBC) with automate d white blood cell (WBC) differential - 01/12/19 06:25 Blood leukocytes automated count (number/volume) 4.2 10*3/uL 4.3-11.0 Blood erythrocytes automated count (number/volume) 2.66 10*6/uL 4.35-5.85 Venous blood hemoglobin measurement (mass/volume) 8.4 g/dL 11.5-16.0 Blood hematocrit (volume fraction) 26 % 35-52 Automated erythrocyte mean corpuscular volume 98 [ foz_us] 80-99 Automated erythrocyte mean corpuscular h emoglobin (mass per erythrocyte) 32 pg 25-34 Automated erythrocyte mean corpuscular h emoglobin concentration measurement (mass/volume) 32 g/dL 32-36 Automated erythrocyte distribution width ratio 16. 1 % 10.0- 14.5 Automated blood platelet count (count/volume) 132 10*3/uL 130-400 Automated blood platelet mean volume measurement 9.5 [foz_us] 7.4-10.4 Automated blood neutrophils/100 leukocytes 64 % 42-75 Automated blood lymphocytes/100 leukocytes 19 % 12-44 Blood monocytes/100 leukocytes 9 % 0-12 Automated blood eosinophils/100 leukocytes 8 % 0-10 Automated blood basophils/100 leukocytes 0 % 0-10 Blood neutrophils automated count (number/volume) 2.7 10*3 1.8-7.8 Blood lymphocytes automated count (number/volume) 0.8 10*3 1.0-4.0 Blood monocytes automated count (number/volume) 0. 4 10*3 0.0-1.0 Automated eosinophil count 0.4 10*3/uL 0 .0-0.3 Automated blood basophil count (count/volume) 0.0 10*3/uL 0.0-0.1 PT panel in platelet poor plasma by coag ulation assay - 01/12/19 06:25 Prothrombin time (PT) in platelet poor plasma by coagu lation assay 32.8 s 12.2-14.7 INR in platelet poor plasma or blood by coagulation as say 3.0 0.8-1.4 Whole blood basic metabolic panel - 12/29 01/16 06:25 Serum or plasma sodium measurement (moles/volume) 145 mmol/L 135-145 Serum or plasma potassium measurement (moles/volume) 4.1 mmol/L 3.6-5.0 Serum or plasma chloride measurement (moles/volume) 114 mmol/L 98-107 Carbon dioxide 21 mmol/L 21-32 Serum or plasma anion gap determination (moles/volume) 10 mmol/L 5-14 Serum or plasma urea nitrogen measurement (mass/volume ) 26 mg/dL 7-18 Serum or plasma creatinine measurement (mass/volume) 0.69 mg/dL 0.60-1.30 Serum or plasma urea nitrogen/creatinine mass ratio 38 NRG Serum or plasma creatinine measurement w ith calculation of estimated glomerular filtration rate > NRG Serum or plasma glucose measurement (mass/volume) 101 mg/dL 70-105 Serum or plasma calcium measurement (mass/volume) 8.2 mg/dL 8.5-10.1 Capillary blood glucose measurement by g lucometer (mass/volume) - 01/12/19 06:36 Capillary blood glucose measurement by glucometer (mas s/volume) 99 mg/dL 70-110 Capillary blood glucose measurement by g lucometer (mass/volume) - 01/12/19 11:10 Capillary blood glucose measurement by glucometer (mas s/volume) 132 mg/dL 70-110 Capillary blood glucose measurement by g lucometer (mass/volume) - 01/12/19 16:27 Capillary blood glucose measurement by glucometer (mas s/volume) 157 mg/dL 70-110 Capillary blood glucose measurement by g lucometer (mass/volume) - 01/12/19 20:56 Capillary blood glucose measurement by glucometer (mas s/volume) 140 mg/dL 70-110 Capillary blood glucose measurement by g lucometer (mass/volume) - 01/13/19 06:35 Capillary blood glucose measurement by glucometer (mas s/volume) 103 mg/dL 70-110 Automated blood complete blood count (he mogram) panel - 01/13/19 08:40 Blood leukocytes automated count (number/volume) 4.3 10*3/uL 4.3-11.0 Blood erythrocytes automated count (number/volume) 2.77 10*6/uL 4.35-5.85 Venous blood hemoglobin measurement (mass/volume) 8.7 g/dL 11.5-16.0 Blood hematocrit (volume fraction) 27 % 35-52 Automated erythrocyte mean corpuscular volume 99 [ foz_us] 80-99 Automated erythrocyte mean corpuscular h emoglobin (mass per erythrocyte) 31 pg 25-34 Automated erythrocyte mean corpuscular h emoglobin concentration measurement (mass/volume) 32 g/dL 32-36 Automated erythrocyte distribution width ratio 15. 9 % 10.0- 14.5 Automated blood platelet count (count/volume) 138 10*3/uL 130-400 Automated blood platelet mean volume measurement 9.3 [foz_us] 7.4-10.4 PT panel in platelet poor plasma by coag ulation assay - 01/13/19 08:40 Prothrombin time (PT) in platelet poor plasma by coagu lation assay 33.4 s 12.2-14.7 INR in platelet poor plasma or blood by coagulation as say 3.1 0.8-1.4 Whole blood basic metabolic panel - 12/29 02/16 08:40 Serum or plasma sodium measurement (moles/volume) 143 mmol/L 135-145 Serum or plasma potassium measurement (moles/volume) 4.2 mmol/L 3.6-5.0 Serum or plasma chloride measurement (moles/volume) 113 mmol/L 98-107 Carbon dioxide 21 mmol/L 21-32 Serum or plasma anion gap determination (moles/volume) 9 mmol/L 5-14 Serum or plasma urea nitrogen measurement (mass/volume ) 23 mg/dL 7-18 Serum or plasma creatinine measurement (mass/volume) 0.67 mg/dL 0.60-1.30 Serum or plasma urea nitrogen/creatinine mass ratio 34 NRG Serum or plasma creatinine measurement w ith calculation of estimated glomerular filtration rate > NRG Serum or plasma glucose measurement (mass/volume) 104 mg/dL 70-105 Serum or plasma calcium measurement (mass/volume) 8.2 mg/dL 8.5-10.1 Capillary blood glucose measurement by g lucometer (mass/volume) - 01/13/19 10:56 Capillary blood glucose measurement by glucometer (mas s/volume) 179 mg/dL 70-110 Capillary blood glucose measurement by g lucometer (mass/volume) - 01/13/19 15:48 Capillary blood glucose measurement by glucometer (mas s/volume) 156 mg/dL 70-110 Capillary blood glucose measurement by g lucometer (mass/volume) - 01/13/19 21:07 Capillary blood glucose measurement by glucometer (mas s/volume) 166 mg/dL 70-110 Automated blood complete blood count (he mogram) panel - 01/14/19 05:40 Blood leukocytes automated count (number/volume) 4.0 10*3/uL 4.3-11.0 Blood erythrocytes automated count (number/volume) 2.66 10*6/uL 4.35-5.85 Venous blood hemoglobin measurement (mass/volume) 8.4 g/dL 11.5-16.0 Blood hematocrit (volume fraction) 26 % 35-52 Automated erythrocyte mean corpuscular volume 98 [ foz_us] 80-99 Automated erythrocyte mean corpuscular h emoglobin (mass per erythrocyte) 32 pg 25-34 Automated erythrocyte mean corpuscular h emoglobin concentration measurement (mass/volume) 32 g/dL 32-36 Automated erythrocyte distribution width ratio 16. 3 % 10.0- 14.5 Automated blood platelet count (count/volume) 148 10*3/uL 130-400 Automated blood platelet mean volume measurement 9.3 [foz_us] 7.4-10.4 PT panel in platelet poor plasma by coag ulation assay - 01/14/19 05:40 Prothrombin time (PT) in platelet poor plasma by coagu lation assay 30.4 s 12.2-14.7 INR in platelet poor plasma or blood by coagulation as say 2.8 0.8-1.4 Whole blood basic metabolic panel - 12/29 03/18 05:40 Serum or plasma sodium measurement (moles/volume) 144 mmol/L 135-145 Serum or plasma potassium measurement (moles/volume) 4.2 mmol/L 3.6-5.0 Serum or plasma chloride measurement (moles/volume) 113 mmol/L 98-107 Carbon dioxide 22 mmol/L 21-32 Serum or plasma anion gap determination (moles/volume) 9 mmol/L 5-14 Serum or plasma urea nitrogen measurement (mass/volume ) 24 mg/dL 7-18 Serum or plasma creatinine measurement (mass/volume) 0.66 mg/dL 0.60-1.30 Serum or plasma urea nitrogen/creatinine mass ratio 36 NRG Serum or plasma creatinine measurement w ith calculation of estimated glomerular filtration rate > NRG Serum or plasma glucose measurement (mass/volume) 103 mg/dL 70-105 Serum or plasma calcium measurement (mass/volume) 8.3 mg/dL 8.5-10.1 Capillary blood glucose measurement by g lucometer (mass/volume) - 01/14/19 10:54 Capillary blood glucose measurement by glucometer (mas s/volume) 138 mg/dL 70-110 Complete blood count (CBC) with automate d white blood cell (WBC) differential - 02/05/19 11:55 Blood leukocytes automated count (number/volume) 3.5 10*3/uL 4.3-11.0 Blood erythrocytes automated count (number/volume) 3.21 10*6/uL 4.35-5.85 Venous blood hemoglobin measurement (mass/volume) 10.2 g/dL 11.5-16.0 Blood hematocrit (volume fraction) 32 % 35-52 Automated erythrocyte mean corpuscular volume 100 [foz_us] 80-99 Automated erythrocyte mean corpuscular h emoglobin (mass per erythrocyte) 32 pg 25-34 Automated erythrocyte mean corpuscular h emoglobin concentration measurement (mass/volume) 32 g/dL 32-36 Automated erythrocyte distribution width ratio 17. 3 % 10.0- 14.5 Automated blood platelet count (count/volume) 120 10*3/uL 130-400 Automated blood platelet mean volume measurement 9.5 [foz_us] 7.4-10.4 Automated blood neutrophils/100 leukocytes 57 % 42-75 Automated blood lymphocytes/100 leukocytes 27 % 12-44 Blood monocytes/100 leukocytes 10 % 0-12 Automated blood eosinophils/100 leukocytes 6 % 0-10 Automated blood basophils/100 leukocytes 1 % 0-10 Blood neutrophils automated count (number/volume) 2.0 10*3 1.8-7.8 Blood lymphocytes automated count (number/volume) 1.0 10*3 1.0-4.0 Blood monocytes automated count (number/volume) 0. 4 10*3 0.0-1.0 Automated eosinophil count 0.2 10*3/uL 0 .0-0.3 Automated blood basophil count (count/volume) 0.0 10*3/uL 0.0-0.1 Comprehensive metabolic panel - 02/05/19 11:55 Serum or plasma sodium measurement (moles/volume) 139 mmol/L 135-145 Serum or plasma potassium measurement (moles/volume) 4.1 mmol/L 3.6-5.0 Serum or plasma chloride measurement (moles/volume) 103 mmol/L 98-107 Carbon dioxide 26 mmol/L 21-32 Serum or plasma anion gap determination (moles/volume) 10 mmol/L 5-14 Serum or plasma urea nitrogen measurement (mass/volume ) 15 mg/dL 7-18 Serum or plasma creatinine measurement (mass/volume) 0.81 mg/dL 0.60-1.30 Serum or plasma urea nitrogen/creatinine mass ratio 19 NRG Serum or plasma creatinine measurement w ith calculation of estimated glomerular filtration rate > NRG Serum or plasma glucose measurement (mass/volume) 126 mg/dL 70-105 Serum or plasma calcium measurement (mass/volume) 9.1 mg/dL 8.5-10.1 Serum or plasma total bilirubin measurement (mass/volu me) 1.2 mg/dL 0.1-1.0 Serum or plasma alkaline phosphatase davion surement (enzymatic activity/volume) 92 U/L 40-136 Serum or plasma aspartate aminotransfera se measurement (enzymatic activity/volume) 22 U/L 5-34 Serum or plasma alanine aminotransferase measurement (enzymatic activity/volume) 17 U/L 0-55 Serum or plasma protein measurement (mass/volume) 6.2 g/dL 6.4-8.2 Serum or plasma albumin measurement (mass/volume) 2.9 g/dL 3.2-4.5 CALCIUM CORRECTED 10.0 mg/dL 8.5-10.1 Complete urinalysis with reflex to cultu re - 02/05/19 12:23 Urine color determination YELLOW NRG Urine clarity determination CLEAR NR G Urine pH measurement by test strip 7 5-9 Specific gravity of urine by test strip 1.010 1.016-1.022 Urine protein assay by test strip, semi-quantitative NEGATIVE NEGATIVE Urine glucose detection by automated test strip NE GATIVE NEGATIVE Erythrocytes detection in urine sediment by light micr oscopy NEGATIVE NEGATIVE Urine ketones detection by automated test strip NE GATIVE NEGATIVE Urine nitrite detection by test strip NEGATIVE NEGATIVE Urine total bilirubin detection by test strip NEGA TIVE NEGATIVE Urine urobilinogen measurement by automated test strip (mass/volume) NORMAL NORMAL Urine leukocyte esterase detection by dipstick NEG ATIVE NEGATIVE Automated urine sediment erythrocyte cou nt by microscopy (number/high power field) NONE NRG Automated urine sediment leukocyte count by microscopy (number/high power field) NONE NRG Bacteria detection in urine sediment by light microsco py NEGATIVE NRG Squamous epithelial cells detection in u rine sediment by light microscopy RARE NRG Crystals detection in urine sediment by light microsco py NONE NRG Casts detection in urine sediment by light microscopy NONE NRG Mucus detection in urine sediment by light microscopy NEGATIVE NRG Complete urinalysis with reflex to culture NO NRG Capillary blood glucose measurement by g lucometer (mass/volume) - 02/07/19 07:31 Capillary blood glucose measurement by glucometer (mas s/volume) 96 mg/dL 70-110 Complete blood count (CBC) with automate d white blood cell (WBC) differential - 02/19/19 12:00 Blood leukocytes automated count (number/volume) 4.1 10*3/uL 4.3-11.0 Blood erythrocytes automated count (number/volume) 3.07 10*6/uL 4.35-5.85 Venous blood hemoglobin measurement (mass/volume) 9.8 g/dL 11.5-16.0 Blood hematocrit (volume fraction) 30 % 35-52 Automated erythrocyte mean corpuscular volume 97 [ foz_us] 80-99 Automated erythrocyte mean corpuscular h emoglobin (mass per erythrocyte) 32 pg 25-34 Automated erythrocyte mean corpuscular h emoglobin concentration measurement (mass/volume) 33 g/dL 32-36 Automated erythrocyte distribution width ratio 15. 7 % 10.0- 14.5 Automated blood platelet count (count/volume) 113 10*3/uL 130-400 Automated blood platelet mean volume measurement 10.0 [foz_us] 7.4-10.4 Automated blood neutrophils/100 leukocytes 64 % 42-75 Automated blood lymphocytes/100 leukocytes 22 % 12-44 Blood monocytes/100 leukocytes 11 % 0-12 Automated blood eosinophils/100 leukocytes 3 % 0-10 Automated blood basophils/100 leukocytes 1 % 0-10 Blood neutrophils automated count (number/volume) 2.6 10*3 1.8-7.8 Blood lymphocytes automated count (number/volume) 0.9 10*3 1.0-4.0 Blood monocytes automated count (number/volume) 0. 5 10*3 0.0-1.0 Automated eosinophil count 0.1 10*3/uL 0 .0-0.3 Automated blood basophil count (count/volume) 0.0 10*3/uL 0.0-0.1 Comprehensive metabolic panel - 02/19/19 12:00 Serum or plasma sodium measurement (moles/volume) 132 mmol/L 135-145 Serum or plasma potassium measurement (moles/volume) 5.0 mmol/L 3.6-5.0 Serum or plasma chloride measurement (moles/volume) 98 mmol/L 98-107 Carbon dioxide 22 mmol/L 21-32 Serum or plasma anion gap determination (moles/volume) 12 mmol/L 5-14 Serum or plasma urea nitrogen measurement (mass/volume ) 20 mg/dL 7-18 Serum or plasma creatinine measurement (mass/volume) 1.18 mg/dL 0.60-1.30 Serum or plasma urea nitrogen/creatinine mass ratio 17 NRG Serum or plasma creatinine measurement w ith calculation of estimated glomerular filtration rate 44 NRG Serum or plasma glucose measurement (mass/volume) 83 mg/dL 70-105 Serum or plasma calcium measurement (mass/volume) 8.7 mg/dL 8.5-10.1 Serum or plasma total bilirubin measurement (mass/volu me) 0.7 mg/dL 0.1-1.0 Serum or plasma alkaline phosphatase davion surement (enzymatic activity/volume) 76 U/L 40-136 Serum or plasma aspartate aminotransfera se measurement (enzymatic activity/volume) 25 U/L 5-34 Serum or plasma alanine aminotransferase measurement (enzymatic activity/volume) 15 U/L 0-55 Serum or plasma protein measurement (mass/volume) 5.8 g/dL 6.4-8.2 Serum or plasma albumin measurement (mass/volume) 2.8 g/dL 3.2-4.5 CALCIUM CORRECTED 9.7 mg/dL 8.5-10.1 Magnesium - 02/19/19 12:00 Magnesium 1.1 mg/dL 1.8-2.4 Serum or plasma lithium measurement (mol es/volume) - 02/19/19 12:00 BNP PT 354.7 pg/mL <100.0 Serum or plasma troponin i.cardiac measu rement (mass/volume) - 02/19/19 12:00 Serum or plasma troponin i.cardiac measurement (mass/v olume) < ng/mL <0.028 Complete urinalysis with reflex to cultu re - 02/19/19 12:58 Urine color determination YELLOW NRG Urine clarity determination CLEAR NR G Urine pH measurement by test strip 7 5-9 Specific gravity of urine by test strip 1.010 1.016-1.022 Urine protein assay by test strip, semi-quantitative NEGATIVE NEGATIVE Urine glucose detection by automated test strip NE GATIVE NEGATIVE Erythrocytes detection in urine sediment by light micr oscopy NEGATIVE NEGATIVE Urine ketones detection by automated test strip NE GATIVE NEGATIVE Urine nitrite detection by test strip NEGATIVE NEGATIVE Urine total bilirubin detection by test strip NEGA TIVE NEGATIVE Urine urobilinogen measurement by automated test strip (mass/volume) NORMAL NORMAL Urine leukocyte esterase detection by dipstick NEG ATIVE NEGATIVE Automated urine sediment erythrocyte cou nt by microscopy (number/high power field) NONE NRG Automated urine sediment leukocyte count by microscopy (number/high power field) NONE NRG Bacteria detection in urine sediment by light microsco py TRACE NRG Crystals detection in urine sediment by light microsco py NONE NRG Casts detection in urine sediment by light microscopy NONE NRG Mucus detection in urine sediment by light microscopy NEGATIVE NRG Complete urinalysis with reflex to culture NO NRG Complete blood count (CBC) with automate d white blood cell (WBC) differential - 05/05/19 10:33 Blood leukocytes automated count (number/volume) 3.3 10*3/uL 4.3-11.0 Blood erythrocytes automated count (number/volume) 3.33 10*6/uL 4.35-5.85 Venous blood hemoglobin measurement (mass/volume) 10.7 g/dL 11.5-16.0 Blood hematocrit (volume fraction) 34 % 35-52 Automated erythrocyte mean corpuscular volume 101 [foz_us] 80-99 Automated erythrocyte mean corpuscular h emoglobin (mass per erythrocyte) 32 pg 25-34 Automated erythrocyte mean corpuscular h emoglobin concentration measurement (mass/volume) 32 g/dL 32-36 Automated erythrocyte distribution width ratio 15. 1 % 10.0- 14.5 Automated blood platelet count (count/volume) 95 1 0*3/uL 130-400 Automated blood platelet mean volume measurement 9.8 [foz_us] 7.4-10.4 Automated blood neutrophils/100 leukocytes 59 % 42-75 Automated blood lymphocytes/100 leukocytes 27 % 12-44 Blood monocytes/100 leukocytes 11 % 0-12 Automated blood eosinophils/100 leukocytes 2 % 0-10 Automated blood basophils/100 leukocytes 0 % 0-10 Blood neutrophils automated count (number/volume) 2.0 10*3 1.8-7.8 Blood lymphocytes automated count (number/volume) 0.9 10*3 1.0-4.0 Blood monocytes automated count (number/volume) 0. 4 10*3 0.0-1.0 Automated eosinophil count 0.1 10*3/uL 0 .0-0.3 Automated blood basophil count (count/volume) 0.0 10*3/uL 0.0-0.1 Blood lactic acid measurement (moles/vol ume) - 05/05/19 10:33 Blood lactic acid measurement (moles/volume) 1.34 mmol/L 0.50-2.00 Comprehensive metabolic panel - 05/05/19 10:33 Serum or plasma sodium measurement (moles/volume) 138 mmol/L 135-145 Serum or plasma potassium measurement (moles/volume) 4.4 mmol/L 3.6-5.0 Serum or plasma chloride measurement (moles/volume) 101 mmol/L 98-107 Carbon dioxide 28 mmol/L 21-32 Serum or plasma anion gap determination (moles/volume) 9 mmol/L 5-14 Serum or plasma urea nitrogen measurement (mass/volume ) 19 mg/dL 7-18 Serum or plasma creatinine measurement (mass/volume) 0.98 mg/dL 0.60-1.30 Serum or plasma urea nitrogen/creatinine mass ratio 19 NRG Serum or plasma creatinine measurement w ith calculation of estimated glomerular filtration rate 55 NRG Serum or plasma glucose measurement (mass/volume) 88 mg/dL 70-105 Serum or plasma calcium measurement (mass/volume) 9.7 mg/dL 8.5-10.1 Serum or plasma total bilirubin measurement (mass/volu me) 0.9 mg/dL 0.1-1.0 Serum or plasma alkaline phosphatase davion surement (enzymatic activity/volume) 87 U/L 40-136 Serum or plasma aspartate aminotransfera se measurement (enzymatic activity/volume) 32 U/L 5-34 Serum or plasma alanine aminotransferase measurement (enzymatic activity/volume) 27 U/L 0-55 Serum or plasma protein measurement (mass/volume) 6.8 g/dL 6.4-8.2 Serum or plasma albumin measurement (mass/volume) 3.3 g/dL 3.2-4.5 CALCIUM CORRECTED 10.3 mg/dL 8.5-10.1 Serum or plasma C reactive protein measu rement (mass/volume) - 05/05/19 10:33 Serum or plasma C reactive protein measurement (mass/v olume) 1.18 mg/dL 0.00-0.50 Bacterial blood culture - 05/05/19 10:33 Bacterial blood culture NG NRG Bacterial blood culture - 05/05/19 10:44 Bacterial blood culture NG NRG Complete urinalysis with reflex to cultu re - 05/05/19 11:06 Urine color determination YELLOW NRG Urine clarity determination CLEAR NR G Urine pH measurement by test strip 8 5-9 Specific gravity of urine by test strip 1.010 1.016-1.022 Urine protein assay by test strip, semi-quantitative NEGATIVE NEGATIVE Urine glucose detection by automated test strip NE GATIVE NEGATIVE Erythrocytes detection in urine sediment by light micr oscopy NEGATIVE NEGATIVE Urine ketones detection by automated test strip NE GATIVE NEGATIVE Urine nitrite detection by test strip NEGATIVE NEGATIVE Urine total bilirubin detection by test strip NEGA TIVE NEGATIVE Urine urobilinogen measurement by automated test strip (mass/volume) NORMAL NORMAL Urine leukocyte esterase detection by dipstick NEG ATIVE NEGATIVE Automated urine sediment erythrocyte cou nt by microscopy (number/high power field) RARE NRG Automated urine sediment leukocyte count by microscopy (number/high power field) [HPF] NRG Bacteria detection in urine sediment by light microsco py TRACE NRG Crystals detection in urine sediment by light microsco py NONE NRG Casts detection in urine sediment by light microscopy NONE NRG Mucus detection in urine sediment by light microscopy NEGATIVE NRG Complete urinalysis with reflex to culture NO NRG Complete blood count (CBC) with automate d white blood cell (WBC) differential - 06/06/19 11:35 Blood leukocytes automated count (number/volume) 3.9 10*3/uL 4.3-11.0 Blood erythrocytes automated count (number/volume) 3.26 10*6/uL 4.35-5.85 Venous blood hemoglobin measurement (mass/volume) 10.5 g/dL 11.5-16.0 Blood hematocrit (volume fraction) 33 % 35-52 Automated erythrocyte mean corpuscular volume 100 [foz_us] 80-99 Automated erythrocyte mean corpuscular h emoglobin (mass per erythrocyte) 32 pg 25-34 Automated erythrocyte mean corpuscular h emoglobin concentration measurement (mass/volume) 32 g/dL 32-36 Automated erythrocyte distribution width ratio 15. 2 % 10.0- 14.5 Automated blood platelet count (count/volume) 76 1 0*3/uL 130-400 Automated blood platelet mean volume measurement 10.1 [foz_us] 7.4-10.4 Automated blood neutrophils/100 leukocytes 67 % 42-75 Automated blood lymphocytes/100 leukocytes 21 % 12-44 Blood monocytes/100 leukocytes 10 % 0-12 Automated blood eosinophils/100 leukocytes 3 % 0-10 Automated blood basophils/100 leukocytes 0 % 0-10 Blood neutrophils automated count (number/volume) 2.6 10*3 1.8-7.8 Blood lymphocytes automated count (number/volume) 0.8 10*3 1.0-4.0 Blood monocytes automated count (number/volume) 0. 4 10*3 0.0-1.0 Automated eosinophil count 0.1 10*3/uL 0 .0-0.3 Automated blood basophil count (count/volume) 0.0 10*3/uL 0.0-0.1 Blood lactic acid measurement (moles/vol ume) - 06/06/19 11:35 Blood lactic acid measurement (moles/volume) 1.48 mmol/L 0.50-2.00 Comprehensive metabolic panel - 06/06/19 11:35 Serum or plasma sodium measurement (moles/volume) 142 mmol/L 135-145 Serum or plasma potassium measurement (moles/volume) 4.5 mmol/L 3.6-5.0 Serum or plasma chloride measurement (moles/volume) 105 mmol/L 98-107 Carbon dioxide 29 mmol/L 21-32 Serum or plasma anion gap determination (moles/volume) 8 mmol/L 5-14 Serum or plasma urea nitrogen measurement (mass/volume ) 18 mg/dL 7-18 Serum or plasma creatinine measurement (mass/volume) 0.92 mg/dL 0.60-1.30 Serum or plasma urea nitrogen/creatinine mass ratio 20 NRG Serum or plasma creatinine measurement w ith calculation of estimated glomerular filtration rate 59 NRG Serum or plasma glucose measurement (mass/volume) 90 mg/dL 70-105 Serum or plasma calcium measurement (mass/volume) 9.5 mg/dL 8.5-10.1 Serum or plasma total bilirubin measurement (mass/volu me) 1.2 mg/dL 0.1-1.0 Serum or plasma alkaline phosphatase davion surement (enzymatic activity/volume) 107 U/L 40-136 Serum or plasma aspartate aminotransfera se measurement (enzymatic activity/volume) 29 U/L 5-34 Serum or plasma alanine aminotransferase measurement (enzymatic activity/volume) 23 U/L 0-55 Serum or plasma protein measurement (mass/volume) 6.8 g/dL 6.4-8.2 Serum or plasma albumin measurement (mass/volume) 3.3 g/dL 3.2-4.5 CALCIUM CORRECTED 10.1 mg/dL 8.5-10.1 PT panel in platelet poor plasma by coag ulation assay - 06/06/19 11:35 Prothrombin time (PT) in platelet poor plasma by coagu lation assay 20.0 s 12.2-14.7 INR in platelet poor plasma or blood by coagulation as say 1.6 0.8-1.4 Activated partial thromboplastin time (a PTT) in platelet poor plasma bycoagulation assay - 06/06/19 11:35 Activated partial thromboplastin time (a PTT) in platelet poor plasma bycoagulation assay 50 s 24-35 Serum or plasma lithium measurement (mol es/volume) - 06/06/19 11:35 BNP PT 754.9 pg/mL <100.0 Serum or plasma troponin i.cardiac measu rement (mass/volume) - 06/06/19 11:35 Serum or plasma troponin i.cardiac measurement (mass/v olume) < ng/mL <0.028 THYROID STIMULATING HORMONE - 06/06/19 1 1:35 THYROID STIMULATING HORMONE 1.95 u[iU]/mL 0.35-4.94 Serum or plasma thyroxine (T4) free ale urement (mass/volume) - 06/06/19 11:35 Serum or plasma thyroxine (T4) free measurement (mass/ volume) 1.03 ng/dL 0.70-1.48 Bacterial blood culture - 06/06/19 11:35 Bacterial blood culture NG NRG Complete urinalysis with reflex to cultu re - 06/06/19 11:50 Urine color determination YELLOW NRG Urine clarity determination CLEAR NR G Urine pH measurement by test strip 8 5-9 Specific gravity of urine by test strip 1.010 1.016-1.022 Urine protein assay by test strip, semi-quantitative NEGATIVE NEGATIVE Urine glucose detection by automated test strip NE GATIVE NEGATIVE Erythrocytes detection in urine sediment by light micr oscopy NEGATIVE NEGATIVE Urine ketones detection by automated test strip NE GATIVE NEGATIVE Urine nitrite detection by test strip NEGATIVE NEGATIVE Urine total bilirubin detection by test strip NEGA TIVE NEGATIVE Urine urobilinogen measurement by automated test strip (mass/volume) NORMAL NORMAL Urine leukocyte esterase detection by dipstick NEG ATIVE NEGATIVE Automated urine sediment erythrocyte cou nt by microscopy (number/high power field) [HPF] NRG Automated urine sediment leukocyte count by microscopy (number/high power field) NONE NRG Bacteria detection in urine sediment by light microsco py TRACE NRG Squamous epithelial cells detection in u rine sediment by light microscopy RARE NRG Crystals detection in urine sediment by light microsco py PRESENT NRG Casts detection in urine sediment by light microscopy NONE NRG Mucus detection in urine sediment by light microscopy NEGATIVE NRG Complete urinalysis with reflex to culture NO NRG Amorphous sediment detection in urine sediment by ligh t microscopy RARE GEORGI PHOSPHATE NRG Bacterial urine culture - 06/06/19 11:50 Bacterial urine culture NG NRG Bacterial blood culture - 06/06/19 12:07 Bacterial blood culture NG NRG Complete blood count (CBC) with automate d white blood cell (WBC) differential - 07/31/19 09:20 Blood leukocytes automated count (number/volume) 3.5 10*3/uL 4.3-11.0 Blood erythrocytes automated count (number/volume) 2.29 10*6/uL 4.35-5.85 Venous blood hemoglobin measurement (mass/volume) 7.7 g/dL 11.5-16.0 Blood hematocrit (volume fraction) 24 % 35-52 Automated erythrocyte mean corpuscular volume 106 [foz_us] 80-99 Automated erythrocyte mean corpuscular h emoglobin (mass per erythrocyte) 34 pg 25-34 Automated erythrocyte mean corpuscular h emoglobin concentration measurement (mass/volume) 32 g/dL 32-36 Automated erythrocyte distribution width ratio 14. 6 % 10.0- 14.5 Automated blood platelet count (count/volume) 93 1 0*3/uL 130-400 Automated blood platelet mean volume measurement 10.5 [foz_us] 7.4-10.4 Automated blood neutrophils/100 leukocytes 49 % 42-75 Automated blood lymphocytes/100 leukocytes 34 % 12-44 Blood monocytes/100 leukocytes 11 % 0-12 Automated blood eosinophils/100 leukocytes 5 % 0-10 Automated blood basophils/100 leukocytes 1 % 0-10 Blood neutrophils automated count (number/volume) 1.7 10*3 1.8-7.8 Blood lymphocytes automated count (number/volume) 1.2 10*3 1.0-4.0 Blood monocytes automated count (number/volume) 0. 4 10*3 0.0-1.0 Automated eosinophil count 0.2 10*3/uL 0 .0-0.3 Automated blood basophil count (count/volume) 0.0 10*3/uL 0.0-0.1 PT panel in platelet poor plasma by coag ulation assay - 07/31/19 09:20 Prothrombin time (PT) in platelet poor plasma by coagu lation assay 18.3 s 12.2-14.7 INR in platelet poor plasma or blood by coagulation as say 1.5 0.8-1.4 Activated partial thromboplastin time (a PTT) in platelet poor plasma bycoagulation assay - 07/31/19 09:20 Activated partial thromboplastin time (a PTT) in platelet poor plasma bycoagulation assay 45 s 24-35 Influenza virus A and B antigen detectio n - 07/31/19 09:20 FLU RESULT NEGATIVE FOR INFLUENZA A AND B ANTIGENS BY IA NRG Complete urinalysis with reflex to cultu re - 07/31/19 09:20 Urine color determination YELLOW NRG Urine clarity determination CLEAR NR G Urine pH measurement by test strip 6.5 5-9 Specific gravity of urine by test strip 1.015 1.016-1.022 Urine protein assay by test strip, semi-quantitative NEGATIVE NEGATIVE Urine glucose detection by automated test strip NE GATIVE NEGATIVE Erythrocytes detection in urine sediment by light micr oscopy NEGATIVE NEGATIVE Urine ketones detection by automated test strip NE GATIVE NEGATIVE Urine nitrite detection by test strip NEGATIVE NEGATIVE Urine total bilirubin detection by test strip NEGA TIVE NEGATIVE Urine urobilinogen measurement by automated test strip (mass/volume) 1.0 mg/dL < = 1.0 Urine leukocyte esterase detection by dipstick NEG ATIVE NEGATIVE Automated urine sediment erythrocyte cou nt by microscopy (number/high power field) NONE NRG Automated urine sediment leukocyte count by microscopy (number/high power field) NONE NRG Bacteria detection in urine sediment by light microsco py NEGATIVE NRG Squamous epithelial cells detection in u rine sediment by light microscopy 0-2 NRG Crystals detection in urine sediment by light microsco py NONE NRG Casts detection in urine sediment by light microscopy NONE NRG Mucus detection in urine sediment by light microscopy NEGATIVE NRG Complete urinalysis with reflex to culture NO NRG Comprehensive metabolic panel - 07/31/19 09:20 Serum or plasma sodium measurement (moles/volume) 141 mmol/L 135-145 Serum or plasma potassium measurement (moles/volume) 5.2 mmol/L 3.6-5.0 Serum or plasma chloride measurement (moles/volume) 105 mmol/L 98-107 Carbon dioxide 26 mmol/L 21-32 Serum or plasma anion gap determination (moles/volume) 10 mmol/L 5-14 Serum or plasma urea nitrogen measurement (mass/volume ) 35 mg/dL 7-18 Serum or plasma creatinine measurement (mass/volume) 1.87 mg/dL 0.60-1.30 Serum or plasma urea nitrogen/creatinine mass ratio 19 NRG Serum or plasma creatinine measurement w ith calculation of estimated glomerular filtration rate 26 NRG Serum or plasma glucose measurement (mass/volume) 122 mg/dL 70-105 Serum or plasma calcium measurement (mass/volume) 8.7 mg/dL 8.5-10.1 Serum or plasma total bilirubin measurement (mass/volu me) 0.6 mg/dL 0.1-1.0 Serum or plasma alkaline phosphatase davion surement (enzymatic activity/volume) 78 U/L 40-136 Serum or plasma aspartate aminotransfera se measurement (enzymatic activity/volume) 24 U/L 5-34 Serum or plasma alanine aminotransferase measurement (enzymatic activity/volume) 22 U/L 0-55 Serum or plasma protein measurement (mass/volume) 5.5 g/dL 6.4-8.2 Serum or plasma albumin measurement (mass/volume) 2.7 g/dL 3.2-4.5 CALCIUM CORRECTED 9.7 mg/dL 8.5-10.1 Blood lactic acid measurement (moles/vol ume) - 07/31/19 09:20 Blood lactic acid measurement (moles/volume) 2.34 mmol/L 0.50-2.00 Serum or plasma troponin i.cardiac measu rement (mass/volume) - 07/31/19 09:20 Serum or plasma troponin i.cardiac measurement (mass/v olume) < ng/mL <0.028 Bacterial urine culture - 07/31/19 09:20 Bacterial urine culture NG NRG Bacterial blood culture - 07/31/19 09:20 Bacterial blood culture NG NRG Serum or plasma lactate measurement (mol es/volume) - 07/31/19 11:10 Serum or plasma lactate measurement (moles/volume) 2.12 mmol/L 0.50-2.00 RED CELLS LEUKO REDUCED AS1 - 07/31/19 1 1:11 RED CELLS LEUKO REDUCED AS1 T RANSFUSED 07/31/19 1237 NRG Blood type T Indirect antibody screen [facility] - 07/31/19 11:11 WRISTBAND NUMBER [id number] NRG ABO+Rh group ON NRG Blood group antibody screen NEGATIVE NR G Bacterial blood culture - 07/31/19 11:26 Bacterial blood culture NG NRG Whole blood hemoglobin and hematocrit [facility] - 07/31/19 23:10 Venous blood hemoglobin measurement (mass/volume) 8.6 g/dL 11.5-16.0 Blood hematocrit (volume fraction) 27 % 35-52 Complete blood count (CBC) with automate d white blood cell (WBC) differential - 08/01/19 06:30 Blood leukocytes automated count (number/volume) 3.2 10*3/uL 4.3-11.0 Blood erythrocytes automated count (number/volume) 2.64 10*6/uL 4.35-5.85 Venous blood hemoglobin measurement (mass/volume) 8.6 g/dL 11.5-16.0 Blood hematocrit (volume fraction) 26 % 35-52 Automated erythrocyte mean corpuscular volume 100 [foz_us] 80-99 Automated erythrocyte mean corpuscular h emoglobin (mass per erythrocyte) 33 pg 25-34 Automated erythrocyte mean corpuscular h emoglobin concentration measurement (mass/volume) 33 g/dL 32-36 Automated erythrocyte distribution width ratio 16. 9 % 10.0- 14.5 Automated blood platelet count (count/volume) 76 1 0*3/uL 130-400 Automated blood platelet mean volume measurement 10.3 [foz_us] 7.4-10.4 Automated blood neutrophils/100 leukocytes 54 % 42-75 Automated blood lymphocytes/100 leukocytes 32 % 12-44 Blood monocytes/100 leukocytes 9 % 0-12 Automated blood eosinophils/100 leukocytes 5 % 0-10 Automated blood basophils/100 leukocytes 0 % 0-10 Blood neutrophils automated count (number/volume) 1.7 10*3 1.8-7.8 Blood lymphocytes automated count (number/volume) 1.0 10*3 1.0-4.0 Blood monocytes automated count (number/volume) 0. 3 10*3 0.0-1.0 Automated eosinophil count 0.2 10*3/uL 0 .0-0.3 Automated blood basophil count (count/volume) 0.0 10*3/uL 0.0-0.1 Comprehensive metabolic panel - 08/01/19 06:30 Serum or plasma sodium measurement (moles/volume) 140 mmol/L 135-145 Serum or plasma potassium measurement (moles/volume) 5.4 mmol/L 3.6-5.0 Serum or plasma chloride measurement (moles/volume) 110 mmol/L 98-107 Carbon dioxide 24 mmol/L 21-32 Serum or plasma anion gap determination (moles/volume) 6 mmol/L 5-14 Serum or plasma urea nitrogen measurement (mass/volume ) 31 mg/dL 7-18 Serum or plasma creatinine measurement (mass/volume) 1.64 mg/dL 0.60-1.30 Serum or plasma urea nitrogen/creatinine mass ratio 19 NRG Serum or plasma creatinine measurement w ith calculation of estimated glomerular filtration rate 30 NRG Serum or plasma glucose measurement (mass/volume) 76 mg/dL 70-105 Serum or plasma calcium measurement (mass/volume) 8.3 mg/dL 8.5-10.1 Serum or plasma total bilirubin measurement (mass/volu me) 1.1 mg/dL 0.1-1.0 Serum or plasma alkaline phosphatase davion surement (enzymatic activity/volume) 70 U/L 40-136 Serum or plasma aspartate aminotransfera se measurement (enzymatic activity/volume) 24 U/L 5-34 Serum or plasma alanine aminotransferase measurement (enzymatic activity/volume) 20 U/L 0-55 Serum or plasma protein measurement (mass/volume) 4.9 g/dL 6.4-8.2 Serum or plasma albumin measurement (mass/volume) 2.4 g/dL 3.2-4.5 CALCIUM CORRECTED 9.6 mg/dL 8.5-10.1 Blood lactic acid measurement (moles/vol ume) - 08/01/19 08:20 Blood lactic acid measurement (moles/volume) 1.45 mmol/L 0.50-2.00 Serum or plasma lithium measurement (mol es/volume) - 08/01/19 08:20 BNP PT 346.0 pg/mL <100.0 Complete blood count (CBC) with automate d white blood cell (WBC) differential - 08/02/19 03:59 Blood leukocytes automated count (number/volume) 3.4 10*3/uL 4.3-11.0 Blood erythrocytes automated count (number/volume) 2.50 10*6/uL 4.35-5.85 Venous blood hemoglobin measurement (mass/volume) 8.2 g/dL 11.5-16.0 Blood hematocrit (volume fraction) 25 % 35-52 Automated erythrocyte mean corpuscular volume 102 [foz_us] 80-99 Automated erythrocyte mean corpuscular h emoglobin (mass per erythrocyte) 33 pg 25-34 Automated erythrocyte mean corpuscular h emoglobin concentration measurement (mass/volume) 32 g/dL 32-36 Automated erythrocyte distribution width ratio 15. 8 % 10.0- 14.5 Automated blood platelet count (count/volume) 66 1 0*3/uL 130-400 Automated blood platelet mean volume measurement 10.5 [foz_us] 7.4-10.4 Automated blood neutrophils/100 leukocytes 58 % 42-75 Automated blood lymphocytes/100 leukocytes 28 % 12-44 Blood monocytes/100 leukocytes 10 % 0-12 Automated blood eosinophils/100 leukocytes 5 % 0-10 Automated blood basophils/100 leukocytes 0 % 0-10 Blood neutrophils automated count (number/volume) 1.9 10*3 1.8-7.8 Blood lymphocytes automated count (number/volume) 0.9 10*3 1.0-4.0 Blood monocytes automated count (number/volume) 0. 3 10*3 0.0-1.0 Automated eosinophil count 0.2 10*3/uL 0 .0-0.3 Automated blood basophil count (count/volume) 0.0 10*3/uL 0.0-0.1 Comprehensive metabolic panel - 08/02/19 03:59 Serum or plasma sodium measurement (moles/volume) 141 mmol/L 135-145 Serum or plasma potassium measurement (moles/volume) 5.2 mmol/L 3.6-5.0 Serum or plasma chloride measurement (moles/volume) 111 mmol/L 98-107 Carbon dioxide 22 mmol/L 21-32 Serum or plasma anion gap determination (moles/volume) 8 mmol/L 5-14 Serum or plasma urea nitrogen measurement (mass/volume ) 29 mg/dL 7-18 Serum or plasma creatinine measurement (mass/volume) 1.43 mg/dL 0.60-1.30 Serum or plasma urea nitrogen/creatinine mass ratio 20 NRG Serum or plasma creatinine measurement w ith calculation of estimated glomerular filtration rate 35 NRG Serum or plasma glucose measurement (mass/volume) 79 mg/dL 70-105 Serum or plasma calcium measurement (mass/volume) 8.0 mg/dL 8.5-10.1 Serum or plasma total bilirubin measurement (mass/volu me) 1.0 mg/dL 0.1-1.0 Serum or plasma alkaline phosphatase davion surement (enzymatic activity/volume) 71 U/L 40-136 Serum or plasma aspartate aminotransfera se measurement (enzymatic activity/volume) 21 U/L 5-34 Serum or plasma alanine aminotransferase measurement (enzymatic activity/volume) 18 U/L 0-55 Serum or plasma protein measurement (mass/volume) 4.6 g/dL 6.4-8.2 Serum or plasma albumin measurement (mass/volume) 2.3 g/dL 3.2-4.5 CALCIUM CORRECTED 9.4 mg/dL 8.5-10.1 Complete blood count (CBC) with automate d white blood cell (WBC) differential - 10/24/19 11:50 Blood leukocytes automated count (number/volume) 4.7 10*3/uL 4.3-11.0 Blood erythrocytes automated count (number/volume) 2.91 10*6/uL 4.35-5.85 Venous blood hemoglobin measurement (mass/volume) 9.5 g/dL 11.5-16.0 Blood hematocrit (volume fraction) 29 % 35-52 Automated erythrocyte mean corpuscular volume 101 [foz_us] 80-99 Automated erythrocyte mean corpuscular h emoglobin (mass per erythrocyte) 33 pg 25-34 Automated erythrocyte mean corpuscular h emoglobin concentration measurement (mass/volume) 32 g/dL 32-36 Automated erythrocyte distribution width ratio 15. 6 % 10.0- 14.5 Automated blood platelet count (count/volume) 98 1 0*3/uL 130-400 Automated blood platelet mean volume measurement 9.3 [foz_us] 7.4-10.4 Automated blood neutrophils/100 leukocytes 71 % 42-75 Automated blood lymphocytes/100 leukocytes 16 % 12-44 Blood monocytes/100 leukocytes 10 % 0-12 Automated blood eosinophils/100 leukocytes 3 % 0-10 Automated blood basophils/100 leukocytes 0 % 0-10 Blood neutrophils automated count (number/volume) 3.3 10*3 1.8-7.8 Blood lymphocytes automated count (number/volume) 0.8 10*3 1.0-4.0 Blood monocytes automated count (number/volume) 0. 5 10*3 0.0-1.0 Automated eosinophil count 0.1 10*3/uL 0 .0-0.3 Automated blood basophil count (count/volume) 0.0 10*3/uL 0.0-0.1 Complete urinalysis with reflex to cultu re - 10/24/19 11:50 Urine color determination YELLOW NRG Urine clarity determination CLEAR NR G Urine pH measurement by test strip 6.0 5-9 Specific gravity of urine by test strip 1.020 1.016-1.022 Urine protein assay by test strip, semi-quantitative NEGATIVE NEGATIVE Urine glucose detection by automated test strip NE GATIVE NEGATIVE Erythrocytes detection in urine sediment by light micr oscopy NEGATIVE NEGATIVE Urine ketones detection by automated test strip NE GATIVE NEGATIVE Urine nitrite detection by test strip NEGATIVE NEGATIVE Urine total bilirubin detection by test strip NEGA TIVE NEGATIVE Urine urobilinogen measurement by automated test strip (mass/volume) 0.2 mg/dL < = 1.0 Urine leukocyte esterase detection by dipstick NEG ATIVE NEGATIVE Automated urine sediment erythrocyte cou nt by microscopy (number/high power field) NONE NRG Automated urine sediment leukocyte count by microscopy (number/high power field) NONE NRG Bacteria detection in urine sediment by light microsco py NEGATIVE NRG Squamous epithelial cells detection in u rine sediment by light microscopy RARE NRG Crystals detection in urine sediment by light microsco py NONE NRG Casts detection in urine sediment by light microscopy NONE NRG Mucus detection in urine sediment by light microscopy NEGATIVE NRG Complete urinalysis with reflex to culture NO NRG Blood lactic acid measurement (moles/vol ume) - 10/24/19 11:50 Blood lactic acid measurement (moles/volume) 2.49 mmol/L 0.50-2.00 PT panel in platelet poor plasma by coag ulation assay - 10/24/19 11:50 Prothrombin time (PT) in platelet poor plasma by coagu lation assay 15.4 s 12.2-14.7 INR in platelet poor plasma or blood by coagulation as say 1.2 0.8-1.4 Activated partial thromboplastin time (a PTT) in platelet poor plasma bycoagulation assay - 10/24/19 11:50 Activated partial thromboplastin time (a PTT) in platelet poor plasma bycoagulation assay 44 s 24-35 Influenza virus A and B antigen detectio n - 10/24/19 11:50 FLU RESULT NEGATIVE FOR INFLUENZA A AND B ANTIGENS BY [facility] Comprehensive metabolic panel - 10/24/19 11:50 Serum or plasma sodium measurement (moles/volume) 137 mmol/L 135-145 Serum or plasma potassium measurement (moles/volume) 4.7 mmol/L 3.6-5.0 Serum or plasma chloride measurement (moles/volume) 100 mmol/L 98-107 Carbon dioxide 29 mmol/L 21-32 Serum or plasma anion gap determination (moles/volume) 8 mmol/L 5-14 Serum or plasma urea nitrogen measurement (mass/volume ) 19 mg/dL 7-18 Serum or plasma creatinine measurement (mass/volume) 1.07 mg/dL 0.60-1.30 Serum or plasma urea nitrogen/creatinine mass ratio 18 NRG Serum or plasma creatinine measurement w ith calculation of estimated glomerular filtration rate 49 NRG Serum or plasma glucose measurement (mass/volume) 136 mg/dL 70-105 Serum or plasma calcium measurement (mass/volume) 9.2 mg/dL 8.5-10.1 Serum or plasma total bilirubin measurement (mass/volu me) 0.9 mg/dL 0.1-1.0 Serum or plasma alkaline phosphatase davion surement (enzymatic activity/volume) 96 U/L 40-136 Serum or plasma aspartate aminotransfera se measurement (enzymatic activity/volume) 31 U/L 5-34 Serum or plasma alanine aminotransferase measurement (enzymatic activity/volume) 32 U/L 0-55 Serum or plasma protein measurement (mass/volume) 5.8 g/dL 6.4-8.2 Serum or plasma albumin measurement (mass/volume) 2.8 g/dL 3.2-4.5 CALCIUM CORRECTED 10.2 mg/dL 8.5-10.1 Magnesium - 10/24/19 11:50 Magnesium 1.6 mg/dL 1.6-2.4 Serum or plasma creatine kinase measurem ent (enzymatic activity/volume) - 10/24/19 11:50 Serum or plasma creatine kinase measurem ent (enzymatic activity/volume) 59 U/L 29-168 Serum or plasma creatine kinase MB measu rement (enzymatic activity/volume) - 10/24/19 11:50 Serum or plasma creatine kinase MB measu rement (enzymatic activity/volume) 1.9 ng/mL <6.6 Serum or plasma troponin i.cardiac measu rement (mass/volume) - 10/24/19 11:50 Serum or plasma troponin i.cardiac measurement (mass/v olume) < ng/mL <0.028 Serum or plasma lithium measurement (mol es/volume) - 10/24/19 11:50 BNP PT 319.9 pg/mL <100.0 Myoglobin, serum - 10/24/19 11:50 Myoglobin, serum 145.4 ng/mL 10.0-92.0 Serum or plasma amylase measurement (enz ymatic activity/volume) - 10/24/19 11:50 Serum or plasma amylase measurement (enzymatic activit y/volume) 65 U/L 25-125 Lipase - 10/24/19 11:50 Lipase 49 U/L 8-78 Serum or plasma thyrotropin measurement by detection limit <=0.05 miu/l (units/volume) - 10/24/19 11:50 Serum or plasma thyrotropin measurement by detection limit <=0.05 miu/l (units/volume) 2.01 u[iU]/mL 0.35-4.94 Bacterial urine culture - 10/24/19 12:00 Bacterial urine culture NG NRG Bacterial blood culture - 10/24/19 12:00 Bacterial blood culture NG NRG Bacterial blood culture - 10/24/19 13:30 Bacterial blood culture NG NRG Serum or plasma lactate measurement (mol es/volume) - 10/24/19 14:12 Serum or plasma lactate measurement (moles/volume) 1.72 mmol/L 0.50-2.00 Capillary blood glucose measurement by g lucometer (mass/volume) - 10/24/19 17:32 Capillary blood glucose measurement by glucometer (mas s/volume) 120 mg/dL 70-110 Capillary blood glucose measurement by g lucometer (mass/volume) - 10/24/19 21:09 Capillary blood glucose measurement by glucometer (mas s/volume) 186 mg/dL 70-110 Capillary blood glucose measurement by g lucometer (mass/volume) - 10/25/19 00:14 Capillary blood glucose measurement by glucometer (mas s/volume) 162 mg/dL 70-110 Arterial blood gas measurement - 0 02:46 Blood pCO2 45 mm[Hg] 35-45 Blood pO2 91 mm[Hg] 79-93 Arterial blood bicarbonate measurement (moles/volume) 29 mmol/L 23-27 Arterial blood base excess by calculation 4.0 mmol /L -2.5-2.5 Arterial blood oxygen saturation measurement 98 % 94-100 * Inhaled oxygen flow rate ROOM AIR NRG Arterial blood pH measurement with patient temperature correction 7.41 7.37-7.43 Arterial blood carbon dioxide, total measurement (mole s/volume) 29.9 mmol/L 21.0-31.0 Body site RIGHT RADIAL NRG Assessment of wrist artery patency prior to arterial p uncture YES-POS NRG Setting of ventilation mode NO NR G Measurement of body temperature 36.7 NRG Complete blood count (CBC) with automate d white blood cell (WBC) differential - 10/25/19 03:50 Blood leukocytes automated count (number/volume) 4.1 10*3/uL 4.3-11.0 Blood erythrocytes automated count (number/volume) 2.74 10*6/uL 4.35-5.85 Venous blood hemoglobin measurement (mass/volume) 8.9 g/dL 11.5-16.0 Blood hematocrit (volume fraction) 28 % 35-52 Automated erythrocyte mean corpuscular volume 101 [foz_us] 80-99 Automated erythrocyte mean corpuscular h emoglobin (mass per erythrocyte) 33 pg 25-34 Automated erythrocyte mean corpuscular h emoglobin concentration measurement (mass/volume) 32 g/dL 32-36 Automated erythrocyte distribution width ratio 15. 2 % 10.0- 14.5 Automated blood platelet count (count/volume) 85 1 0*3/uL 130-400 Automated blood platelet mean volume measurement 9.8 [foz_us] 7.4-10.4 Automated blood neutrophils/100 leukocytes 68 % 42-75 Automated blood lymphocytes/100 leukocytes 18 % 12-44 Blood monocytes/100 leukocytes 11 % 0-12 Automated blood eosinophils/100 leukocytes 3 % 0-10 Automated blood basophils/100 leukocytes 0 % 0-10 Blood neutrophils automated count (number/volume) 2.8 10*3 1.8-7.8 Blood lymphocytes automated count (number/volume) 0.8 10*3 1.0-4.0 Blood monocytes automated count (number/volume) 0. 4 10*3 0.0-1.0 Automated eosinophil count 0.1 10*3/uL 0 .0-0.3 Automated blood basophil count (count/volume) 0.0 10*3/uL 0.0-0.1 Blood lactic acid measurement (moles/vol ume) - 10/25/19 03:50 Blood lactic acid measurement (moles/volume) 0.96 mmol/L 0.50-2.00 Comprehensive metabolic panel - 10/25/19 03:50 Serum or plasma sodium measurement (moles/volume) 135 mmol/L 135-145 Serum or plasma potassium measurement (moles/volume) 4.6 mmol/L 3.6-5.0 Serum or plasma chloride measurement (moles/volume) 101 mmol/L 98-107 Carbon dioxide 28 mmol/L 21-32 Serum or plasma anion gap determination (moles/volume) 6 mmol/L 5-14 Serum or plasma urea nitrogen measurement (mass/volume ) 17 mg/dL 7-18 Serum or plasma creatinine measurement (mass/volume) 0.83 mg/dL 0.60-1.30 Serum or plasma urea nitrogen/creatinine mass ratio 20 NRG Serum or plasma creatinine measurement w ith calculation of estimated glomerular filtration rate > NRG Serum or plasma glucose measurement (mass/volume) 147 mg/dL 70-105 Serum or plasma calcium measurement (mass/volume) 8.7 mg/dL 8.5-10.1 Serum or plasma total bilirubin measurement (mass/volu me) 0.7 mg/dL 0.1-1.0 Serum or plasma alkaline phosphatase davion surement (enzymatic activity/volume) 86 U/L 40-136 Serum or plasma aspartate aminotransfera se measurement (enzymatic activity/volume) 29 U/L 5-34 Serum or plasma alanine aminotransferase measurement (enzymatic activity/volume) 27 U/L 0-55 Serum or plasma protein measurement (mass/volume) 5.6 g/dL 6.4-8.2 Serum or plasma albumin measurement (mass/volume) 2.6 g/dL 3.2-4.5 CALCIUM CORRECTED 9.8 mg/dL 8.5-10.1 Capillary blood glucose measurement by g lucometer (mass/volume) - 10/25/19 05:14 Capillary blood glucose measurement by glucometer (mas s/volume) 152 mg/dL 70-110 Capillary blood glucose measurement by g lucometer (mass/volume) - 10/25/19 10:48 Capillary blood glucose measurement by glucometer (mas s/volume) 124 mg/dL 70-110 Capillary blood glucose measurement by g lucometer (mass/volume) - 10/25/19 17:51 Capillary blood glucose measurement by glucometer (mas s/volume) 120 mg/dL 70-110 Capillary blood glucose measurement by g lucometer (mass/volume) - 10/26/19 00:07 Capillary blood glucose measurement by glucometer (mas s/volume) 132 mg/dL 70-110 Automated blood complete blood count (he mogram) panel - 10/26/19 04:52 Blood leukocytes automated count (number/volume) 4.8 10*3/uL 4.3-11.0 Blood erythrocytes automated count (number/volume) 2.86 10*6/uL 4.35-5.85 Venous blood hemoglobin measurement (mass/volume) 9.2 g/dL 11.5-16.0 Blood hematocrit (volume fraction) 29 % 35-52 Automated erythrocyte mean corpuscular volume 100 [foz_us] 80-99 Automated erythrocyte mean corpuscular h emoglobin (mass per erythrocyte) 32 pg 25-34 Automated erythrocyte mean corpuscular h emoglobin concentration measurement (mass/volume) 32 g/dL 32-36 Automated erythrocyte distribution width ratio 15. 8 % 10.0- 14.5 Automated blood platelet count (count/volume) 98 1 0*3/uL 130-400 Automated blood platelet mean volume measurement 9.5 [foz_us] 7.4-10.4 Comprehensive metabolic panel - 10/26/19 04:52 Serum or plasma sodium measurement (moles/volume) 135 mmol/L 135-145 Serum or plasma potassium measurement (moles/volume) 4.7 mmol/L 3.6-5.0 Serum or plasma chloride measurement (moles/volume) 102 mmol/L 98-107 Carbon dioxide 27 mmol/L 21-32 Serum or plasma anion gap determination (moles/volume) 6 mmol/L 5-14 Serum or plasma urea nitrogen measurement (mass/volume ) 13 mg/dL 7-18 Serum or plasma creatinine measurement (mass/volume) 0.78 mg/dL 0.60-1.30 Serum or plasma urea nitrogen/creatinine mass ratio 17 NRG Serum or plasma creatinine measurement w ith calculation of estimated glomerular filtration rate > NRG Serum or plasma glucose measurement (mass/volume) 109 mg/dL 70-105 Serum or plasma calcium measurement (mass/volume) 9.0 mg/dL 8.5-10.1 Serum or plasma total bilirubin measurement (mass/volu me) 0.9 mg/dL 0.1-1.0 Serum or plasma alkaline phosphatase davion surement (enzymatic activity/volume) 84 U/L 40-136 Serum or plasma aspartate aminotransfera se measurement (enzymatic activity/volume) 29 U/L 5-34 Serum or plasma alanine aminotransferase measurement (enzymatic activity/volume) 25 U/L 0-55 Serum or plasma protein measurement (mass/volume) 5.8 g/dL 6.4-8.2 Serum or plasma albumin measurement (mass/volume) 2.7 g/dL 3.2-4.5 CALCIUM CORRECTED 10.0 mg/dL 8.5-10.1 Serum or plasma lithium measurement (mol es/volume) - 10/26/19 04:52 BNP PT 358.2 pg/mL <100.0 Capillary blood glucose measurement by g lucometer (mass/volume) - 10/26/19 12:19 Capillary blood glucose measurement by glucometer (mas s/volume) 109 mg/dL 70-110 Capillary blood glucose measurement by g lucometer (mass/volume) - 10/26/19 17:41 Capillary blood glucose measurement by glucometer (mas s/volume) 97 mg/dL 70-110 Complete blood count (CBC) with automate d white blood cell (WBC) differential - 10/27/19 05:00 Blood leukocytes automated count (number/volume) 3.8 10*3/uL 4.3-11.0 Blood erythrocytes automated count (number/volume) 2.45 10*6/uL 4.35-5.85 Venous blood hemoglobin measurement (mass/volume) 7.9 g/dL 11.5-16.0 Blood hematocrit (volume fraction) 25 % 35-52 Automated erythrocyte mean corpuscular volume 100 [foz_us] 80-99 Automated erythrocyte mean corpuscular h emoglobin (mass per erythrocyte) 32 pg 25-34 Automated erythrocyte mean corpuscular h emoglobin concentration measurement (mass/volume) 32 g/dL 32-36 Automated erythrocyte distribution width ratio 15. 7 % 10.0- 14.5 Automated blood platelet count (count/volume) 80 1 0*3/uL 130-400 Automated blood platelet mean volume measurement 9.7 [foz_us] 7.4-10.4 Automated blood neutrophils/100 leukocytes 61 % 42-75 Automated blood lymphocytes/100 leukocytes 20 % 12-44 Blood monocytes/100 leukocytes 16 % 0-12 Automated blood eosinophils/100 leukocytes 3 % 0-10 Automated blood basophils/100 leukocytes 0 % 0-10 Blood neutrophils automated count (number/volume) 2.3 10*3 1.8-7.8 Blood lymphocytes automated count (number/volume) 0.7 10*3 1.0-4.0 Blood monocytes automated count (number/volume) 0. 6 10*3 0.0-1.0 Automated eosinophil count 0.1 10*3/uL 0 .0-0.3 Automated blood basophil count (count/volume) 0.0 10*3/uL 0.0-0.1 Comprehensive metabolic panel - 10/27/19 05:00 Serum or plasma sodium measurement (moles/volume) 136 mmol/L 135-145 Serum or plasma potassium measurement (moles/volume) 3.8 mmol/L 3.6-5.0 Serum or plasma chloride measurement (moles/volume) 100 mmol/L 98-107 Carbon dioxide 28 mmol/L 21-32 Serum or plasma anion gap determination (moles/volume) 8 mmol/L 5-14 Serum or plasma urea nitrogen measurement (mass/volume ) 15 mg/dL 7-18 Serum or plasma creatinine measurement (mass/volume) 0.86 mg/dL 0.60-1.30 Serum or plasma urea nitrogen/creatinine mass ratio 17 NRG Serum or plasma creatinine measurement w ith calculation of estimated glomerular filtration rate > NRG Serum or plasma glucose measurement (mass/volume) 85 mg/dL 70-105 Serum or plasma calcium measurement (mass/volume) 8.5 mg/dL 8.5-10.1 Serum or plasma total bilirubin measurement (mass/volu me) 1.1 mg/dL 0.1-1.0 Serum or plasma alkaline phosphatase davion surement (enzymatic activity/volume) 70 U/L 40-136 Serum or plasma aspartate aminotransfera se measurement (enzymatic activity/volume) 27 U/L 5-34 Serum or plasma alanine aminotransferase measurement (enzymatic activity/volume) 20 U/L 0-55 Serum or plasma protein measurement (mass/volume) 4.9 g/dL 6.4-8.2 Serum or plasma albumin measurement (mass/volume) 2.2 g/dL 3.2-4.5 CALCIUM CORRECTED 9.9 mg/dL 8.5-10.1 Serum or plasma lithium measurement (mol es/volume) - 10/27/19 05:00 BNP PT 131.0 pg/mL <100.0 Capillary blood glucose measurement by g lucometer (mass/volume) - 10/27/19 12:08 Capillary blood glucose measurement by glucometer (mas s/volume) 80 mg/dL 70-110 Capillary blood glucose measurement by g lucometer (mass/volume) - 10/27/19 17:13 Capillary blood glucose measurement by glucometer (mas s/volume) 102 mg/dL 70-110 Capillary blood glucose measurement by g lucometer (mass/volume) - 10/28/19 01:08 Capillary blood glucose measurement by glucometer (mas s/volume) 93 mg/dL 70-110 Automated blood complete blood count ( mogram) panel - 10/28/19 03:00 Blood leukocytes automated count (number/volume) 3.7 10*3/uL 4.3-11.0 Blood erythrocytes automated count (number/volume) 2.46 10*6/uL 4.35-5.85 Venous blood hemoglobin measurement (mass/volume) 7.8 g/dL 11.5-16.0 Blood hematocrit (volume fraction) 25 % 35-52 Automated erythrocyte mean corpuscular volume 101 [foz_us] 80-99 Automated erythrocyte mean corpuscular h emoglobin (mass per erythrocyte) 32 pg 25-34 Automated erythrocyte mean corpuscular h emoglobin concentration measurement (mass/volume) 31 g/dL 32-36 Automated erythrocyte distribution width ratio 16. 0 % 10.0- 14.5 Automated blood platelet count (count/volume) 86 1 0*3/uL 130-400 Automated blood platelet mean volume measurement 9.7 [foz_us] 7.4-10.4 Comprehensive metabolic panel - 10/28/19 03:00 Serum or plasma sodium measurement (moles/volume) 135 mmol/L 135-145 Serum or plasma potassium measurement (moles/volume) 3.6 mmol/L 3.6-5.0 Serum or plasma chloride measurement (moles/volume) 98 mmol/L 98-107 Carbon dioxide 28 mmol/L 21-32 Serum or plasma anion gap determination (moles/volume) 9 mmol/L 5-14 Serum or plasma urea nitrogen measurement (mass/volume ) 16 mg/dL 7-18 Serum or plasma creatinine measurement (mass/volume) 0.83 mg/dL 0.60-1.30 Serum or plasma urea nitrogen/creatinine mass ratio 19 NRG Serum or plasma creatinine measurement w ith calculation of estimated glomerular filtration rate > NRG Serum or plasma glucose measurement (mass/volume) 86 mg/dL 70-105 Serum or plasma calcium measurement (mass/volume) 8.8 mg/dL 8.5-10.1 Serum or plasma total bilirubin measurement (mass/volu me) 1.5 mg/dL 0.1-1.0 Serum or plasma alkaline phosphatase davion surement (enzymatic activity/volume) 71 U/L 40-136 Serum or plasma aspartate aminotransfera se measurement (enzymatic activity/volume) 28 U/L 5-34 Serum or plasma alanine aminotransferase measurement (enzymatic activity/volume) 19 U/L 0-55 Serum or plasma protein measurement (mass/volume) 5.0 g/dL 6.4-8.2 Serum or plasma albumin measurement (mass/volume) 2.3 g/dL 3.2-4.5 CALCIUM CORRECTED 10.2 mg/dL 8.5-10.1 Capillary blood glucose measurement by g lucometer (mass/volume) - 10/28/19 07:49 Capillary blood glucose measurement by glucometer (mas s/volume) 85 mg/dL 70-110 Capillary blood glucose measurement by g lucometer (mass/volume) - 10/28/19 11:55 Capillary blood glucose measurement by glucometer (mas s/volume) 88 mg/dL 70-110 Encounters ACCT No. Visit Date/Time Discharge Status Pt. Type Provider Facility Loc./Unit Complaint [id number] 10/26/2019 07:36:00 17:10:00 DIS Inpatient NINIJORGE L KATE ADEN Fani Via [facility] 4TH AMS;POSSIBLE SE PSIS-UNKNOWN ETIOLOGY;ANEMIA [id number] 10/04/2019 12:56:00 23:59:59 CLS Outpatient ALIDA FOWLER, KARAN Via [facility] ONC [id number] 07/31/2019 11:00:00 13:29:00 DIS Inpatient JESUS KATE ADEN Fani [facility] 4TH SEVERE ANEMIA,A CUTE RENAL FAILURE [id number] 06/29/2019 11:51:00 23:59:59 CLS Outpatient ADEN LEE DO Via [facility] RAD LEFT UPPER SWEL LING [id number] 06/06/2019 11:11:00 14:20:00 DIS Emergency TWYLA VALVERDE APRN Via [facility] ER "NOT ACTING HERSELF" [id number] 05/18/2019 11:12:00 23:59:59 CLS Outpatient ADEN LEE DO Via [facility] RAD PAIN BILATERAL KNEES [id number] 05/05/2019 10:03:00 12:10:00 DIS Emergency BRUCE FORTE MD Via [facility] ER AMS [id number] 02/19/2019 11:50:00 14:10:00 DIS Emergency TWYLA VALVERDE APRN [facility] ER WEAK [id number] 02/07/2019 07:05:00 23:59:59 CLS Outpatient JACKI JORDAN DO [facility] ENDO IRON DEF ANEMIA [id number] 02/05/2019 09:43:00 13:54:00 DIS Emergency PROSPER FOWLER, AMADOR Rosario [facility] ER CONFUSION [id number] 02/03/2019 10:30:00 13:18:00 DIS Outpatient JACKI JORDAN DO [facility] PREOP COLONOSCOPY/EGD [id number] 01/08/2019 12:15:00 13:00:00 DIS Inpatient PERLA GARZA DOI Rohan ia [facility] 4TH UTI,DELIRIUM,ANEMIA,SUPRATHERAPEUTIC INR [id number] 01/06/2019 16:05:00 23:59:59 CLS Outpatient ADEN LEE DO Via [facility] RAD ANKLE PAIN- FAL L [id number] 12/30/2018 07:19:00 10:40:00 DIS Emergency SAWYER FOWLER, MAX J [facility] ER FALL [id number] 11/25/2018 11:12:00 15:29:00 DIS Emergency PROSPER FOWLER, AMADOR Rosario [facility] ER ALTERED LOC [id number] 08/07/2018 09:25:00 12:31:00 DIS Emergency AJITH FOWLER, LATASHA Hummel Via [facility] ER AMS [id number] 06/11/2018 11:56:00 23:59:59 CLS Outpatient ADEN LEE DO [facility] RAD RT UPPER EXT SW ELLING [id number] 2018 14:26:00 11:00:00 DIS Inpatient ADEN LEE DO Via [facility] 4TH ALTERED MENTAL STATUS;HYPOMAGNESEMIA [id number] 05/06/2018 09:00:00 00:01:00 DIS Outpatient ALIDA FOWLER, KARAN [facility] ONC [id number] 05/27/2018 15:30:00 23:59:59 CLS Preadmit ADEN LEE DO [facility] RAD CVA [id number] 04/11/2018 13:16:00 018 10:00:00 DIS Inpatient HECTOR BRITT MD [facility] IRF DISUSE MYOPATHY [id number] 03/11/2018 10:00:00 018 16:25:00 DIS Inpatient HECTOR BRITT MD [facility] IRF CVA [id number] 03/08/2018 15:00:00 018 10:01:00 DIS Inpatient ANNAADEN CABRERA DO Via [facility] 4TH CONFUSION,WEAKN ESS,CVA?,HTN [id number] 12/18/2017 10:15:00 018 13:55:00 DIS Outpatient NINIADEN COATS DO Via [facility] REHAB GENERAL WEAKNES S; DIFFICULTY IN TALKING [id number] 10/18/2017 16:07:00 018 19:02:00 DIS Emergency FAINAERIN Bolanos [facility] ER FALL [id number] 08/05/2017 08:01:00 017 23:59:59 CLS Outpatient ADEN LEE DO Via [facility] LAB DIABETES,HYPERL IPIDEMIA [id number] 07/26/2017 09:53:00 017 13:00:00 DIS Emergency TWYLA VALVERDE MAILER APPRENTICE Via [facility] ER FALL [id number] 01/22/2017 10:30:00 017 12:00:00 DIS Outpatient CHANDNI IOANA KATE [facility] REHAB LOW BACK PAIN A ND LUMBAR SPONDYLOSIS [id number] 01/19/2017 08:14:00 017 23:59:59 CLS Outpatient ADEN LEE DO Via [facility] LAB THROMBOCYCLOPE [id number] 12/23/2016 08:44:00 017 23:59:59 CLS Outpatient ADEN LEE DO Via [facility] LAB HTN [id number] 10/07/2016 13:11:00 017 14:45:00 DIS Emergency PROSPER FOWLER, AMADOR Rosario [facility] ER KNEE PAIN [id number] 08/28/2016 08:29:00 016 23:59:59 CLS Outpatient ADEN LEE DO Via [facility] LAB DIABETIS,HYPERT ENSION [id number] 06/30/2016 09:17:00 23:59:59 CLS Outpatient ADEN LEE DO Via [facility] RAD SCREENING [id number] 06/12/2016 08:15:00 11:53:00 DIS Outpatient IOANA TARIQ DO Via [facility] REHAB S/P REVERSE LEF T TSA [id number] 05/29/2016 10:20:00 17:00:00 DIS Outpatient IOANA TARIQ DO Via [facility] REHAB S/P REVERSE LEF T TSA [id number] 05/21/2016 08:02:00 016 23:59:59 CLS Outpatient ADEN LEE DO Via [facility] LAB LEUKOPENIA,THRO MBOCYTOPENIA [id number] 05/06/2016 08:17:00 016 23:59:59 CLS Outpatient ADEN LEE DO [facility] LAB DIABETES, HYPER LIPIDEMIA [id number] 07/09/2015 08:33:00 23:59:59 CLS Outpatient JESUS KATE ADEN Mohr [facility] LAB DIABTS, [id number] 07/04/2015 09:09:00 23:59:59 CLS Outpatient CHANDNI DO, IOANA Sergei [facility] RAD LUMBAR SPONDYLO SIS,DJD LEFT HIP [id number] 06/27/2015 08:43:00 23:59:59 CLS Outpatient JESUS KATE ADEN Fani [facility] RAD SCREENING [id number] 03/06/2015 07:08:00 07:20:00 DIS Emergency AJITH FOWLER, LATASHA Hummel Via [facility] ER STAPLE REMOVAL [id number] 02/27/2015 10:38:00 12:13:00 DIS Emergency REANNA FOWLER, BRUCE Rao [facility] ER FALL;L LEG PAIN [id number] 02/19/2015 08:28:00 23:59:59 CLS Outpatient NINILENSANDHU ADEN Fani [facility] LAB DIABETES,PERIPH ERAL ADEMIA [id number] 02/19/2015 08:20:00 23:59:59 CLS Outpatient BAIREBEL JC [facility] LAB HYPERLIPIDEMIA [id number] 08/22/2014 10:30:00 014 23:59:59 CLS Outpatient BAIREBEL JC [facility] LAB HLP,DM,HTN [id number] 06/26/2014 10:05:00 014 23:59:59 CLS Outpatient JESUS KATE ADEN Mohr [facility] RAD SCREENING [id number] 04/05/2014 09:08:00 014 23:59:59 CLS Outpatient JESUS KATE ADEN Mohr [facility] LAB DIABETES [id number] 02/21/2014 08:25:00 014 23:59:59 CLS Outpatient BAIREBEL JC Via [facility] LAB OTHER UNSPECI FIED HYPERLIPIDEMIA [id number] 01/27/2014 10:30:00 014 23:59:59 CLS Outpatient JESUS KATE ADEN Fani [facility] RAD FELL LAST MONDA Y,PAIN IN R RIBS [id number] 08/18/2013 11:05:00 23:59:59 CLS Outpatient BAIREBEL JC [facility] LAB HLP [id number] 08/12/2013 12:58:00 14:04:00 DIS Outpatient IOANA TARIQ DO Via [facility] REHAB CERVICAL SPONDY LOSIS [id number] 08/16/2013 12:34:00 23:59:59 CLS Outpatient REBEL IVY [facility] CARD HTN [id number] 08/13/2013 18:38:00 23:46:00 DIS Emergency PROSPER FOWLER, AMADOR Rosario Via [facility] ER CP [id number] 07/25/2013 09:12:00 23:59:59 CLS Outpatient CHANDNI DO IOANA Mai [facility] RAD CERVICAL SPONDY LYNNETTE [id number] 06/29/2013 07:43:00 23:59:59 CLS Outpatient ADEN LEE DO Via [facility] LAB DM,HLP [id number] 06/24/2013 08:48:00 23:59:59 CLS Outpatient ADEN LEE DO [facility] RAD SCREENING [id number] 05/31/2013 08:35:00 14:00:00 DIS Outpatient CHANDNI KATE IOANA Mai [facility] REHAB DJD R SHOULDER CERVICAL SPONDYLOSIS [id number] 04/27/2013 10:00:00 10:28:00 DIS Outpatient CHANDNI KATE IOANA Mai [facility] REHAB CERVICAL SPONDY EMILEEIS, RT SIDED RADICULOPATHY [id number] 02/28/2013 11:21:00 23:59:59 CLS Outpatient ADEN LEE DO Via [facility] RAD RIGHT RIB PAIN [id number] 02/01/2013 07:52:00 23:59:59 CLS Outpatient REBEL IVY [facility] LAB HTN,HLP,STATIN TX [id number] 04/03/2018 10:26:00 Document Registration [id number] 03/29/2018 11:29:[address] Inpatient ADEN LEE DO Via [facility] 4TH UNRESPONSIVE EPISODE,THROMBO CYTOPEMIA [id number] 12/03/2015 08:11:00 Document Registration [id number] 07/04/2015 09:08:00 Document Registration [id number] 10/25/2014 08:56:00 Document Registration [id number] 10/06/2012 09:30:00 Document Registration [id number] 09/30/2012 08:04:00 Document Registration [id number] 08/12/2012 08:40:00 Document Registration [id number] 06/21/2012 10:00:00 Document Registration [id number] 01/09/2012 14:12:00 Document Registration [id number] 01/06/2012 11:23:00 Document Registration [id number] 12/25/2011 11:32:00 Document Registration [id number] 12/04/2011 08:05:00 Document Registration [id number] 11/26/2011 07:55:00 Document Registration [id number] 06/19/2011 07:48:00 Document Registration [id number] 06/05/2011 10:04:00 Document Registration [id number] 05/06/2011 07:00:00 Document Registration [id number] 03/19/2011 16:56:00 Document Registration [id number] 09/04/2010 07:56:00 Document Registration [id number] 04/22/2010 08:15:00 Document Registration [id number] 04/17/2010 08:06:00 Document Registration [id number] 04/02/2010 12:05:00 Document Registration [id number] 04/01/2010 13:49:00 Document Registration [id number] 03/27/2010 09:38:00 Document Registration [id number] 03/08/2010 11:02:00 Document Registration [id number] 02/28/2010 07:44:00 Document Registration
--- NOTE | 2019-10-31 07:53 | Discharge Summary ---
Diagnosis/Chief Complaint Date of Admission Oct 26, 2019 at 07:36 Date of Discharge Oct 29, 2019 at 17:10 Discharge Time: 07:49 Discharge Diagnosis Acute mental status changes. Acute on chronic diastolic congestive heart failure. Anemia. A fascia. Coronary artery disease. Body mass index 45/49. CVA unspecified. A fascia. GERD. Hypertension heart disease with heart failure. Paroxysmal atrial fibrillation. Cardiac implant. Cardiac pacemaker. Hyperlipidemia. Diabetes. Dementia.. Comfort care Reason Hospital Visit Patient is a [facility] of a penit[facility]. According to the nurse patient is unresponsive. Patient is able to open her eyes. Patient only says one word. Patient unable to give a history. Patient has history of dementia Patient is known diabetic. Patient has exogenous obesity Discharge Summary Consultations Cardiology. Pulmonology Discharge Physical Examination Allergies: Coded Allergies: Penicillins (Unverified Allergy, Unknown, 04/11/18) codeine (Unverified Allergy, Unknown, 04/11/18) aspirin (Verified Adverse Reaction, Unknown, NAUSEA, 04/11/18) Vitals & I&Os Vital Signs Date Time Temp Pulse Resp B/P (MAP) Pulse Ox O2 Delivery O2 Flow Rate FiO2 10/29/19 17:04 37.1 76 18 105/55 95 Room Air Hospital Course Patient . Patient was get a little better and then worse relapsed Labs (last 24 hrs) Laboratory Tests 10/24/19 11:50: White Blood Count 4.7, Red Blood Count 2.91L, Hemoglobin 9.5L, Hematocrit 29L, Mean Corpuscular Volume 101H, Mean Corpuscular Hemoglobin 33, Mean Corpuscular Hemoglobin Concent 32, Red Cell Distribution Width 15.6H, Platelet Count 98L, Mean Platelet Volume 9.3, Neutrophils (%) (Auto) 71, Lymphocytes (%) (Auto) 16, Monocytes (%) (Auto) 10, Eosinophils (%) (Auto) 3, Basophils (%) (Auto) 0, Neutrophils # (Auto) 3.3, Lymphocytes # (Auto) 0.8L, Monocytes # (Auto) 0.5, Eosinophils # (Auto) 0.1, Basophils # (Auto) 0.0, Prothrombin Time 15.4H, INR Comment 1.2, Activated Partial Thromboplast Time 44H, Urine Color YELLOW, Urine Clarity CLEAR, Urine pH 6.0, Urine Specific Calion 1.020, Urine Protein NEGATIVE, Urine Glucose (UA) NEGATIVE, Urine Ketones NEGATIVE, Urine Nitrite N EGATIVE, Urine Bilirubin NEGATIVE, Urine Urobilinogen 0.2, Urine Leukocyte Esterase NEGATIVE, Urine RBC (Auto) NEGATIVE, Urine RBC NONE, Urine WBC NONE, Urine Squamous Epithelial Cells RARE, Urine Crystals NONE, Urine Bacteria NEGATIVE, Urine Casts NONE, Urine Mucus NEGATIVE, Urine Culture Indicated NO, Sodium Level 137, Potassium Level 4.7, Chloride Level 100, Carbon Dioxide Level 29, Anion Gap 8, Blood Urea Nitrogen 19H, Creatinine 1.07, Estimat Glomerular Filtration Rate 49, BUN/Creatinine Ratio 18, Glucose Level 136H, Lactic Acid Level 2.49*H, Calcium Level 9.2, Corrected Calcium 10.2H, Magnesium Level 1.6, Total Bilirubin 0.9, Aspartate Amino Transf (AST/SGOT) 31, Alanine Aminotransferase (ALT/SGPT) 32, Alkaline Phosphatase 96, Total Creatine Kinase 59, Creatine Kinase MB 1.9, Myoglobin 145.4H, Troponin I < 0.028, B-Type Natriuretic Peptide 319.9H, Total Protein 5.8L, Albumin 2.8L, Amylase Level 65, Lipase 49, TSH Bighorn Testing 2.01 10/24/19 14:12: Lactic Acid Level 1.72 10/24/19 17:32: Glucometer 120H 10/24/19 21:09: Glucometer 186H 10/25/19 00:14: Glucometer 162H 10/25/19 02:46: Blood Gas Puncture Site RIGHT RADIAL, Blood Gas Patient Temperature 36.7, Arterial Blood pH 7.41, Arterial Blood Partial Pressure CO2 45, Arterial Blood Partial Pressure O2 91, Arterial Blood HCO3 29H, Arterial Blood Total CO2 29.9, Arterial Blood Oxygen Saturation 98, Arterial Blood Base Excess 4.0H, Rafael Test YES-POS, Blood Gas Ventilator Setting NO, Blood Gas Inspired Oxygen ROOM AIR 10/25/19 03:50: White Blood Count 4.1L, Red Blood Count 2.74L, Hemoglobin 8.9L, Hematocrit 28L, Mean Corpuscular Volume 101H, Mean Corpuscular Hemoglobin 33, Mean Corpuscular Hemoglobin Concent 32, Red Cell Distribution Width 15.2H, Platelet Count 85L, Mean Platelet Volume 9.8, Neutrophils (%) (Auto) 68, Lymphocytes (%) (Auto) 18, Monocytes (%) (Auto) 11, Eosinophils (%) (Auto) 3, Basophils (%) (Auto) 0, N eutrophils # (Auto) 2.8, Lymphocytes # (Auto) 0.8L, Monocytes # (Auto) 0.4, Eos inophils # (Auto) 0.1, Basophils # (Auto) 0.0, Sodium Level 135, Potassium Level 4.6, Chloride Level 101, Carbon Dioxide Level 28, Anion Gap 6, Blood Urea Nitrogen 17, Creatinine 0.83, Estimat Glomerular Filtration Rate > 60, BUN/Creatinine Ratio 20, Glucose Level 147H, Lactic Acid Level 0.96, Calcium Level 8.7, Corrected Calcium 9.8, Total Bilirubin 0.7, Aspartate Amino Transf (AST/SGOT) 29, Alanine Aminotransferase (ALT/SGPT) 27, Alkaline Phosphatase 86, Total Protein 5.6L, Albumin 2.6L 10/25/19 05:14: Glucometer 152H 10/25/19 10:48: Glucometer 124H 10/25/19 17:51: Glucometer 120H 10/26/19 00:07: Glucometer 132H 10/26/19 04:52: White Blood Count 4.8, Red Blood Count 2.86L, Hemoglobin 9.2L, Hematocrit 29L, Mean Corpuscular Volume 100H, Mean Corpuscular Hemoglobin 32, Mean Corpuscular Hemoglobin Concent 32, Red Cell Distribution Width 15.8H, Platelet Count 98L, Mean Platelet Volume 9.5, Sodium Level 135, Potassium Level 4.7, Chloride Level 102, Carbon Dioxide Level 27, Anion Gap 6, Blood Urea Nitrogen 13, Creatinine 0.78, Estimat Glomerular Filtration Rate > 60, BUN/Creatinine Ratio 17, Glucose Level 109H, Calcium Level 9.0, Corrected Calcium 10.0, Total Bilirubin 0.9, Aspartate Amino Transf (AST/SGOT) 29, Alanine Aminotransferase (ALT/SGPT) 25, Alkaline Phosphatase 84, B-Type Natriuretic Peptide 358.2H, Total Protein 5.8L, Albumin 2.7L 10/26/19 07:36: Lab Scanned Report Referred Lab Report 10/26/19 12:19: Glucometer 109 10/26/19 17:41: Glucometer 97 10/27/19 05:00: White Blood Count 3.8L, Red Blood Count 2.45L, Hemoglobin 7.9L, Hematocrit 25L, Mean Corpuscular Volume 100H, Mean Corpuscular Hemoglobin 32, Mean Corpuscular Hemoglobin Concent 32, Red Cell Distribution Width 15.7H, Platelet Count 80L, Mean Platelet Volume 9.7, Neutrophils (%) (Auto) 61, Lymphocytes (%) (Auto) 20, Monocytes (%) (Auto) 16H, Eosinophils (%) (Auto) 3, Basophils (%) (Auto) 0, Neutrophils # (Auto) 2.3, Lymphocytes # (Auto) 0.7L, Monocytes # (Auto) 0.6, Eosinophils # (Auto) 0.1, Basophils # (Auto) 0.0, Sodium Level 136, Potassium Level 3.8, Chloride Level 100, Carbon Dioxide Level 28, Anion Gap 8, Blood Urea Nitrogen 15, Creatinine 0.86, Estimat Glomerular Filtration Rate > 60, BUN/Creatinine Ratio 17, Glucose Level 85, Calcium Level 8.5, Corrected Calcium 9.9, Total Bilirubin 1.1H, Aspartate Amino Transf (AST/SGOT) 27, Alanine Aminotransferase (ALT/SGPT) 20, Alkaline Phosphatase 70, B-Type Natriuretic Peptide 131.0H, Total Protein 4.9L, Albumin 2.2L 10/27/19 12:08: Glucometer 80 10/27/19 17:13: Glucometer 102 10/28/19 01:08: Glucometer 93 10/28/19 03:00: White Blood Count 3.7L, Red Blood Count 2.46L, Hemoglobin 7.8L, Hematocrit 25L, Mean Corpuscular Volume 101H, Mean Corpuscular Hemoglobin 32, Mean Corpuscular Hemoglobin Concent 31L, Red Cell Distribution Width 16.0H, Platelet Count 86L, Mean Platelet Volume 9.7, Sodium Level 135, Potassium Level 3.6, Chloride Level 98, Carbon Dioxide Level 28, Anion Gap 9, Blood Urea Nitrogen 16, Creatinine 0.83, Estimat Glomerular Filtration Rate > 60, BUN/Creatinine Ratio 19, Glucose Level 86, Calcium Level 8.8, Corrected Calcium 10.2H, Total Bilirubin 1.5H, Aspartate Amino Transf (AST/SGOT) 28, Alanine Aminotransferase (ALT/SGPT) 19, Alkaline Phosphatase 71, Total Protein 5.0L, Albumin 2.3L 10/28/19 07:49: Glucometer 85 10/28/19 11:55: Glucometer 88 Microbiology 10/24/19 Blood Culture - Final, Complete No growth 10/24/19 Urine Culture - Final, Complete NO GROWTH 10/24/19 Influenza Types A,B Antigen (JASIEL) - Final, Complete Laboratory Tests 10/24/19 11:50 10/25/19 03:50 10/26/19 04:52 10/27/19 05:00 10/28/19 03:00 Pending Labs Microbiology Date/Time Source Procedure Growth Status 10/24/19 13:30 Peripheral Lt Ac Blood Culture - Final No growth Complete 10/24/19 12:00 Urine U Cath,Nos Urine Culture - Final NO GROWTH Complete 10/24/19 12:00 [place], Nos Blood Culture - Final No growth Complete 10/24/19 11:50 Nasopharynx Influenza Types A,B Antigen (JASIEL) - Final Complete Laboratory Tests 10/24/19 11:50: White Blood Count 4.7, Red Blood Count 2.91, Hemoglobin 9.5, Hematocrit 29, Mean Corpuscular Volume 101, Mean Corpuscular Hemoglobin 33, Mean Corpuscular Hemoglobin Concent 32, Red Cell Distribution Width 15.6, Platelet Count 98, Mean Platelet Volume 9.3, Neutrophils (%) (Auto) 71, Lymphocytes (%) (Auto) 16, Monocytes (%) (Auto) 10, Eosinophils (%) (Auto) 3, Basophils (%) (Auto) 0, Neutrophils # (Auto) 3.3, Lymphocytes # (Auto) 0.8, Monocytes # (Auto) 0.5, Eosinophils # (Auto) 0.1, Basophils # (Auto) 0.0, Prothrombin Time 15.4, INR Comment 1.2, Activated Partial Thromboplast Time 44, Urine Color YELLOW, Urine Clarity CLEAR, Urine pH 6.0, Urine Specific Calion 1.020, Urine Protein N EGATIVE, Urine Glucose (UA) NEGATIVE, Urine Ketones NEGATIVE, Urine Nitrite NEGATIVE, Urine Bilirubin NEGATIVE, Urine Urobilinogen 0.2, Urine Leukocyte Esterase NEGATIVE, Urine RBC (Auto) NEGATIVE, Urine RBC NONE, Urine WBC NONE, Urine Squamous Epithelial Cells RARE, Urine Crystals NONE, Urine Bacteria NEGATIVE, Urine Casts NONE, Urine Mucus NEGATIVE, Urine Culture Indicated NO, Sodium Level 137, Potassium Level 4.7, Chloride Level 100, Carbon Dioxide Level 29, Anion Gap 8, Blood Urea Nitrogen 19, Creatinine 1.07, Estimat Glomerular Filtration Rate 49, BUN/Creatinine Ratio 18, Glucose Level 136, Lactic Acid Level 2.49, Calcium Level 9.2, Corrected Calcium 10.2, Magnesium Level 1.6, Total Bilirubin 0.9, Aspartate Amino Transf (AST/SGOT) 31, Alanine Aminotransferase (ALT/SGPT) 32, Alkaline Phosphatase 96, Total Creatine Kinase 59, Creatine Kinase MB 1.9, Myoglobin 145.4, Troponin I < 0.028, B-Type Natriuretic Peptide 319.9, Total Protein 5.8, Albumin 2.8, Amylase Level 65, Lipase 49, TSH Bighorn Testing 2.01 10/24/19 14:12: Lactic Acid Level 1.72 10/24/19 17:32: Glucometer 120 10/24/19 21:09: Glucometer 186 10/25/19 00:14: Glucometer 162 10/25/19 02:46: Blood Gas Puncture Site RIGHT RADIAL, Blood Gas Patient Temperature 36.7, Arterial Blood pH 7.41, Arterial Blood Partial Pressure CO2 45, Arterial Blood Partial Pressure O2 91, Arterial Blood HCO3 29, Arterial Blood Total CO2 29.9, Arterial Blood Oxygen Saturation 98, Arterial Blood Base Excess 4.0, Rafael Test YES-POS, Blood Gas Ventilator Setting NO, Blood Gas Inspired Oxygen ROOM AIR 10/25/19 03:50: White Blood Count 4.1, Red Blood Count 2.74, Hemoglobin 8.9, Hematocrit 28, Mean Corpuscular Volume 101, Mean Corpuscular Hemoglobin 33, Mean Corpuscular Hemoglobin Concent 32, Red Cell Distribution Width 15.2, Platelet Count 85, Mean Platelet Volume 9.8, Neutrophils (%) (Auto) 68, Lymphocytes (%) (Auto) 18, Monocytes (%) (Auto) 11, Eosinophils (%) (Auto) 3, Basophils (%) (Auto) 0, Neutrophils # (Auto) 2.8, Lymphocytes # (Auto) 0.8, Monocytes # (Auto) 0.4, Eosinophils # (Auto) 0.1, Basophils # (Auto) 0.0, Sodium Level 135, Potassium Level 4.6, Chloride Level 101, Carbon Dioxide Level 28, Anion Gap 6, Blood Urea Nitrogen 17, Creatinine 0.83, Estimat Glomerular Filtration Rate > 60, BUN/Creatinine Ratio 20, Glucose Level 147, Lactic Acid Level 0.96, Calcium Level 8.7, Corrected Calcium 9.8, Total Bilirubin 0.7, Aspartate Amino Transf (AST/SGOT) 29, Alanine Aminotransferase (ALT/SGPT) 27, Alkaline Phosphatase 86, Total Protein 5.6, Albumin 2.6 10/25/19 05:14: Glucometer 152 10/25/19 10:48: Glucometer 124 10/25/19 17:51: Glucometer 120 10/26/19 00:07: Glucometer 132 10/26/19 04:52: White Blood Count 4.8, Red Blood Count 2.86, Hemoglobin 9.2, Hematocrit 29, Mean Corpuscular Volume 100, Mean Corpuscular Hemoglobin 32, Mean Corpuscular Hemoglobin Concent 32, Red Cell Distribution Width 15.8, Platelet Count 98, Mean Platelet Volume 9.5, Sodium Level 135, Potassium Level 4.7, Chloride Level 102, Carbon Dioxide Level 27, Anion Gap 6, Blood Urea Nitrogen 13, Creatinine 0.78, Estimat Glomerular Filtration Rate > 60, BUN/Creatinine Ratio 17, Glucose Level 109, Calcium Level 9.0, Corrected Calcium 10.0, Total Bilirubin 0.9, Aspartate Amino Transf (AST/SGOT) 29, Alanine Aminotransferase (ALT/SGPT) 25, Alkaline Phosphatase 84, B-Type Natriuretic Peptide 358.2, Total Protein 5.8, Albumin 2.7 10/26/19 07:36: Lab Scanned Report Referred Lab Report 10/26/19 12:19: Glucometer 109 10/26/19 17:41: Glucometer 97 10/27/19 05:00: White Blood Count 3.8, Red Blood Count 2.45, Hemoglobin 7.9, Hematocrit 25, Mean Corpuscular Volume 100, Mean Corpuscular Hemoglobin 32, Mean Corpuscular Hemoglobin Concent 32, Red Cell Distribution Width 15.7, Platelet Count 80, Mean Platelet Volume 9.7, Neutrophils (%) (Auto) 61, Lymphocytes (%) (Auto) 20, Monocytes (%) (Auto) 16, Eosinophils (%) (Auto) 3, Basophils (%) (Auto) 0, Neutrophils # (Auto) 2.3, Lymphocytes # (Auto) 0.7, Monocytes # (Auto) 0.6, Eosinophils # (Auto) 0.1, Basophils # (Auto) 0.0, Sodium Level 136, Potassium Level 3.8, Chloride Level 100, Carbon Dioxide Level 28, Anion Gap 8, Blood Urea Nitrogen 15, Creatinine 0.86, Estimat Glomerular Filtration Rate > 60, BUN/Creatinine Ratio 17, Glucose Level 85, Calcium Level 8.5, Corrected Calcium 9.9, Total Bilirubin 1.1, Aspartate Amino Transf (AST/SGOT) 27, Alanine Aminotransferase (ALT/SGPT) 20, Alkaline Phosphatase 70, B-Type Natriuretic Peptide 131.0, Total Protein 4.9, Albumin 2.2 10/27/19 12:08: Glucometer 80 10/27/19 17:13: Glucometer 102 10/28/19 01:08: Glucometer 93 10/28/19 03:00: White Blood Count 3.7, Red Blood Count 2.46, Hemoglobin 7.8, Hematocrit 25, Mean Corpuscular Volume 101, Mean Corpuscular Hemoglobin 32, Mean Corpuscular Hemoglobin Concent 31, Red Cell Distribution Width 16.0, Platelet Count 86, Mean Platelet Volume 9.7, Sodium Level 135, Potassium Level 3.6, Chloride Level 98, Carbon Dioxide Level 28, Anion Gap 9, Blood Urea Nitrogen 16, Creatinine 0.83, Estimat Glomerular Filtration Rate > 60, BUN/Creatinine Ratio 19, Glucose Level 86, Calcium Level 8.8, Corrected Calcium 10.2, Total Bilirubin 1.5, Aspartate Amino Transf (AST/SGOT) 28, Alanine Aminotransferase (ALT/SGPT) 19, Alkaline Oumar sphatase 71, Total Protein 5.0, Albumin 2.3 10/28/19 07:49: Glucometer 85 10/28/19 11:55: Glucometer 88 Discharge Home Medications: Active Scripts Active Reported Lotrimin AF (Miconazole Nitrate) 90 Gm Powder 1 Gm TP UD APPLY TO BILAT ABD FOLDS WITH EVERY SHIFT CHANGE Loratadine 10 Mg Tablet 10 Mg PO DAILY PRN Multi Complete-Iron Tablet (Multivitamin/Iron/Folic Acid) 1 Each Tablet 1 Each PO DAILY Systane Gel (Hypromellose) 10 Gm Gel..gram. 1 Drop OD HS Systane Complete (Propylene Glycol) 1.5 Ml Drops 1 Drop OD BID Mucinex (Guaifenesin) 1,200 Mg Tab.er.12h 1,200 Mg PO Q12H PRN Acetaminophen 500 Mg Tablet 500 Mg PO Q12H PRN Biofreeze (Menthol) 118 Ml Gel..ml. 1 Applic TP Q6H PRN Ocuvite Adult 50 Plus Softgel (C,E,Zinc,Copper 11/Yxgug3c/Lut) 1 Each Capsule 1 Each PO DAILY Zofran (Ondansetron HCl) 8 Mg Tablet 8 Mg PO Q8H PRN Milk of Magnesia (Magnesium Hydroxide) 400 Mg/5 Ml Oral.susp 30 Mg PO Q8H PRN Diovan (Valsartan) 320 Mg Tab 320 Mg PO DAILY HOLD FOR SBP LESS THEN 100 Tetrahydrozoline HCl 15 Ml Drops 2 Drops OU Q6H PRN Moisturel (Dimethicone) 226 Gm Lotion 1 Applic TP BID APPLY TO BUTTTOCKS/SACRUM AREA Metoprolol Succinate 50 Mg Tab.er.24h 50 Mg PO DAILY HOLD FOR SBP LESS THAN 100 Tylenol Extra Strength (Acetaminophen) 500 Mg Tablet 500 Mg PO TID Magnesium (Magnesium Oxide) 250 Mg Tablet 250 Mg PO TID Furosemide 40 Mg Tablet 40 Mg PO DAILY Donepezil HCl 5 Mg Tablet 5 Mg PO HS Atorvastatin Calcium 40 Mg Tablet 40 Mg PO HS Omeprazole 40 Mg Capsule.dr 40 Mg PO DAILY Metformin HCl 500 Mg Tablet 500 Mg PO BID Fish Oil 1,200 mg Fish Oil (Fish Oil/Dha/Epa) 1 Each Capsule 1,200 Mg PO BID Instructions to patient/family Please see electronic discharge instructions given to patient. Clinical Quality Measures DVT/VTE Risk/Contraindication: Risk Factor Score Per Nursin RFS Level Per Nursing on Admit: 4+=Very High ADEN LEE DO Oct 31, 2019 07:53
[2019-10-31] MEDS ORDERED: PATCH REMOVAL TP SCH (08:59)
== END 2019-10-29 17:10 | disposition expired | DRG 64 ==
LOC: EDUNIT# 11:01 → ER 11:02 → 4TH 13:15 → OBSVTOIN 10-26 07:36
PROVIDERS: ADMIT Family Medicine; ATTEND Family Medicine
DX: I63.9 Cerebral infarction, unspecified (principal); I11.0 Hypertensive heart disease with heart failure; I50.33 Acute on chronic diastolic (congestive) heart failure; Z68.42 Body mass index [BMI] 45.0-49.9, adult; I69.321 Dysphasia following cerebral infarction; I69.320 Aphasia following cerebral infarction; J20.9 Acute bronchitis, unspecified; Z51.5 Encounter for palliative care; Z66 Do not resuscitate; I25.10 Atherosclerotic heart disease of native coronary artery without angina pectoris; I48.0 Paroxysmal atrial fibrillation; D64.9 Anemia, unspecified; D69.6 Thrombocytopenia, unspecified; E66.01 Morbid (severe) obesity due to excess calories; R41.841 Cognitive communication deficit; I87.2 Venous insufficiency (chronic) (peripheral); F03.90 Unspecified dementia, unspecified severity, without behavioral disturbance, psychotic disturbance, mood disturbance, and anxiety; E78.00 Pure hypercholesterolemia, unspecified; K21.9 Gastro-esophageal reflux disease without esophagitis; E11.9 Type 2 diabetes mellitus without complications; M16.11 Unilateral primary osteoarthritis, right hip; M17.11 Unilateral primary osteoarthritis, right knee; M54.9 Dorsalgia, unspecified; I65.23 Occlusion and stenosis of bilateral carotid arteries; Z95.0 Presence of cardiac pacemaker; Z87.19 Personal history of other diseases of the digestive system; Z96.652 Presence of left artificial knee joint; R32 Unspecified urinary incontinence; R15.9 Full incontinence of feces
CPT/HCPCS: 36415; 51702; 70450; 71045; 80053; 81000; 82150; 82550; 82553; 82805; 82962; 83605; 83690; 83735; 83874; 83880; 84443; 84484; 85025; 85027; 85610; 85730; 87040; 87088; 87804; 93005; 93041; 94640; 94760; G0378